=== PATIENT | female | born 1990 | race Caucasian/White ===

== ENCOUNTER 2024-03-15 19:06 | Emergency (ER) | payer OTHER ==
[2024-03-15] MEDS ORDERED: NA CHLORIDE 0.9% 1,000 ML ONE (19:28)
[2024-03-15 19:34] LABS: Absolute Basophils 0.2 K/uL (0-0.5); Absolute Eosinophils 0.1 K/uL (0-0.5); Absolute Lymphocytes (CBC) 2.9 K/uL (0.7-4.9); Absolute Monocytes 0.6 K/uL (0.1-1.3); Absolute Neutrophil 6.1 K/uL (1.8-8.0); Basophils % 1.9 % (0-1.3); Eosinophils % 0.7 % (0-4.4); Hematocrit 39.9 % (36.0-45.0); Hemoglobin 13.6 g/dL (12.0-15.0); Lymphocytes % 29.3 % (15.3-44.8); MCH 28.3 pg (27.0-35.0); MCV 83.1 fL (80-100); Monocytes % 6.4 % (3.3-12.3); Neutrophils % 61.7 % (41.7-73.7); Nucleated Red Blood Cells % 0.1 % (0-0); Platelets 297 thou/uL (152-406); Red Cell Distribution Width 12.8 % (12.1-15.2); Specific Gravity > 1.030 (1.005-1.030)
[2024-03-15 19:39] LABS: Specific Gravity > 1.030 (1.005-1.030); Sqamous Epithelial <5 /HPF (None Seen); Urine Bacteria None Seen /HPF (<20); Urine Bilirubin NEGATIVE (Negative); Urine Blood Negative (Negative); Urine Clarity Clear (Clear); Urine Color Colorless (Yellow); Urine Crystals Unidentified Few /HPF (None Seen); Urine Culture Reflex Order NOT NEEDED; Urine Glucose 4+ (Over) (Negative); Urine Ketones 2+ (Negative); Urine Microscopic Reflex YN ORDER UMIC; Urine Mucus Slight /HPF (None Seen); Urine Nitrite NEGATIVE (Negative); Urine Protein NEGATIVE (Negative); Urine RBC <5 /HPF (None Seen); Urine Urobilinogen Normal (Normal); Urine WBC <5 /HPF (<5); Urine Yeast (Budding) Trace /HPF (None Seen); Urine pH 5.5 (5.0-7.0)
[2024-03-15 19:51] LABS: Albumin/Globulin Ratio 0.8 (1.1-1.8); BETA HYDROXYBUTYRATE 1.22 mmol/L (0.02-0.27); Bilirubin Total 0.4 mg/dL (0.2-1.0); Phosphorus 3.1 mg/dL (2.5-4.9)
[2024-03-15 19:52] LABS: Magnesium 1.8 mg/dL (1.6-2.4)
[2024-03-15] MEDS ORDERED: INSULIN REGULAR (HUMAN) 100 UNIT/ML ONE (20:16)
[2024-03-15] MEDS ORDERED: HUMALOG MIX 75/25 100 UNITS/ML SQ ONE (21:55)
--- NOTE | 2024-03-15 22:13 | ER ---
Nurse's Notes [facility] Name: Aminta Bell Age: 33 yrs Sex: Female : 1990 Arrival Date: 03/15/2024 Time: 19:06 Bed 2 Private MD: Diagnosis: Type 2 diabetes mellitus with hyperglycemia Presentation: 03/15 19:11 Chief complaint: EMS states: Called to patient's home due to patient having high blood cm10 sugar. Pt has been out of insulin for 45 days due to "insurance not wanting to pay". Pt reports increased thirst and increased urination. Pt also reports headache that she describes as pressure. No nausea, vomiting or abdominal pain. Coronavirus screen: Client denies travel out of the [place] in the last 14 days. Ebola Screen: Patient denies travel to an Ebola-affected area in the 21 days before illness onset. No symptoms or risks identified at this time. Initial Sepsis Screen: Does the patient meet any 2 criteria? HR > 90 bpm. Does the patient have a suspected source of infection? No. Patient's initial sepsis screen is negative. Risk Assessment: Do you want to hurt yourself or someone else? Patient reports no desire to harm self or others. Onset of symptoms was March 15, 2024. Care prior to arrival: Medication(s) given: Normal saline infusion, 600mL IV initiated. 20 GA, in the right forearm, Glucose check: 538. 19:11 Method Of Arrival: EMS: [facility] cm10 19:11 Acuity: KARINA 3 cm10 Triage Assessment: 19:16 General: Appears in no apparent distress. comfortable, Behavior is calm, cooperative. cm10 Pain: Complains of pain in head Pain does not radiate. Pain currently is 4 out of 10 on a pain scale. Quality of pain is described as pressure. Neuro: No deficits noted. Level of Consciousness is awake, alert, obeys commands, Oriented to person, place, time, situation, Appropriate for age. Respiratory: No deficits noted. Airway is patent Respiratory effort is even, unlabored, Respiratory pattern is regular, symmetrical. : Reports urinary frequency. Derm: No deficits noted. Skin is healthy with good turgor, Skin is pink, warm \\T\\ dry. Musculoskeletal: No deficits noted. Range of motion: intact in all extremities. VIDEO SPECIALIST: 21:03 Not cm10 Historical: - Allergies: 19:14 Latex, Natural Rubber; cm10 - Home Meds: 19:14 Trazodone Oral [Active]; Lantus Sub-Q [Active]; Humalog Sub-Q [Active]; Ozempic cm10 subcutaneous [Active]; Seroquel Oral [Active]; - PMHx: 19:14 Diabetes mellitus; Hypertensive disorder; Anxiety; cm10 - Immunization history:: Adult Immunizations up to date. - Infectious Disease History:: Denies. - Social history:: Smoking status: unknown. Screenin:31 [facility] ED Fall Risk Assessment (Adult) History of falling in the last 3 months, cm10 including since admission No falls in past 3 months (0 pts) Confusion or Disorientation No (0 pts) Intoxicated or Sedated No (0 pts) Impaired Gait No (0 pts) Mobility Assist Device Used No (0 pt) Altered Elimination No (0 pt) Score/Fall Risk Level 0 - 2 = Low Risk Oriented to surroundings, Maintained a safe environment, Hourly rounding (assess needs \\T\\ fall precautionary measures) done. Abuse screen: Denies threats or abuse. Denies injuries from another. Nutritional screening: No deficits noted. Tuberculosis screening: No symptoms or risk factors identified. Assessment: 20:39 Reassessment: Patient appears in no apparent distress at this time. No changes from cm10 previously documented assessment. Patient and/or family updated on plan of care and expected duration. Pain level reassessed. Patient is alert, oriented x 3, equal unlabored respirations, skin warm/dry/pink. Vital Signs: 19:11 BP 134 / 72; Pulse 96; Resp 19; Temp 98.2(O); Pulse Ox 99% on R/A; Weight 97.52 kg; cm10 Height 4 ft. 10 in. ; Pain 4/10; 19:11 Body Mass Index 44.93 (97.52 kg, 147.32 cm) cm10 19:11 Pain Scale: Adult cm10 ED Course: 19:11 Patient arrived in ED. cm10 19:14 Triage completed. cm10 19:17 Arm band placed on right wrist. Patient placed in an exam room, on a stretcher, on cm10 pulse oximetry. 19:17 Maintain EMS IV. Dressing intact. Good blood return noted. Site clean \\T\\ dry. Gauge \\T\\ cm 10 site: 20g Right forearm. Flushed with 10 mL NS. 19:18 Liudmila Morgan [facility]C [facility]. sb4 19:18 Sky Sandoval MD is Attending Physician. sb4 19:31 Talisha Dooley, DAGMAR is Primary Nurse. cm10 19:31 BHB Sent. cm10 19:31 Magnesium Sent. cm10 19:31 Phosphorus Sent. cm10 19:31 CMP Sent. cm10 19:31 CBC with Diff Sent. cm10 19:31 Test, Urine Sent. cm10 19:31 Urinalysis w/ reflexes Sent. cm10 19:32 Patient has correct armband on for positive identification. Bed in low position. Call cm10 light in reach. Side rails up X 1. Provided Education on: ER process and procedures.. Pulse ox on. NIBP on. 19:53 Notified Nurse Practitioner and/or Physician Wireless Cellular Technician of a critical lab result(s), BGL cm10 671. 22:28 No provider procedures requiring assistance completed. IV discontinued, intact, dd2 bleeding controlled, No redness/swelling at site. Pressure dressing applied. Administered Medications: 19:31 Drug: NS 0.9% IV 1000 ml IV at 1 bolus Per protocol; to be given as a bolus over 60 cm10 minutes Route: IV; Rate: 1 bolus; Site: right forearm; 20:36 Drug: Insulin Regular Human IVP 10 units IVP once {Co-Signature: dd2 (CEDRICK SOSA RN).} Route: IVP; Site: right forearm; 21:02 Follow up: Response: No adverse reaction cm10 22:11 Drug: Insulin Lispro Sub-Q 60 units Sub-Q once {Co-Signature: lg3 (Jayde Macario RN).} vc1 Route: Sub-Q; Site: left upper arm; 22:27 Follow up: Response: Medication administered at discharge. dd2 Medication: 19:33 VIS not applicable for this client. cm10 Point of Care Testing: Blood Glucose: 19:17 Blood Glucose: High (>450 mg/dL); cm10 21:03 Blood Glucose: 462 mg/dL; cm10 Ranges: Outcome: 22:12 Discharge ordered by . sb4 22:28 Discharged to home ambulatory, dd2 22:28 Condition: stable 22:28 Discharge instructions given to patient, Instructed on discharge instructions, follow up and referral plans. Demonstrated understanding of instructions, follow-up care, 22:29 Patient left the ED. dd2 Signatures: Haley Burns RN RN Liudmila Ramon PA-C PA-C sb4 Talisha Dooley RN RN cm10 CEDRICK SOSA RN RN dd2 CEDRICK SOSA RN, dd2 Jayde Macario RN lg3
--- NOTE | 2024-03-15 22:13 | EDPHYS ---
Physician Documentation [facility] Name: Aminta Bell Age: 33 yrs Sex: Female : 1990 Arrival Date: 03/15/2024 Time: 19:06 Bed 2 Private MD: ED Physician Sky Sandoval HPI: 03/16 00:44 This 33 yrs old Female presents to ER via EMS with complaints of High Blood Sugar. sb4 00:44 Patient is a type II diabetic on short and long-acting insulin and metformin. States sb4 that she has not had her insulin in 45 days due to insurance reasons. States that her blood sugar varies, but has generally stayed below 500. States that today she started feeling dizzy and ill so she called EMS. EMS reported a blood sugar of greater than 500. BEHAVIORAL HEALTH TECHNICIAN: 03/15 21:03 Not cm10 Historical: - Allergies: 19:14 Latex, Natural Rubber; cm10 - Home Meds: 19:14 Trazodone Oral [Active]; Lantus Sub-Q [Active]; Humalog Sub-Q [Active]; Ozempic cm10 subcutaneous [Active]; Seroquel Oral [Active]; - PMHx: 19:14 Diabetes mellitus; Hypertensive disorder; Anxiety; cm10 - Immunization history:: Adult Immunizations up to date. - Infectious Disease History:: Denies. - Social history:: Smoking status: unknown. ROS: 03/16 00:44 Constitutional: Negative for fever, chills, and weight loss, sb4 Neuro: Positive for dizziness, headache, Endocrine: Positive for polydipsia, polyphagia, polyuria, All other systems are negative, Exam: 00:44 Constitutional: This is a well developed, well nourished patient who is awake, alert, sb4 and in no acute distress. Head/Face: Normocephalic, atraumatic. Eyes: Extra-ocular motions intact. Periorbital areas with no swelling, redness, or edema. ENT: Mucous membranes moist. Cardiovascular: Regular rate and rhythm with a normal S1 and S2. Respiratory: No increased work of breathing, no retractions or nasal flaring. Abdomen/GI: Soft, non-tender, no distension. Skin: Warm, dry with normal turgor. Normal color with no rashes, no lesions, and no evidence of cellulitis. Vital Signs: 03/15 19:11 BP 134 / 72; Pulse 96; Resp 19; Temp 98.2(O); Pulse Ox 99% on R/A; Weight 97.52 kg; cm10 Height 4 ft. 10 in. ; Pain 4/10; 19:11 Body Mass Index 44.93 (97.52 kg, 147.32 cm) cm10 19:11 Pain Scale: Adult cm10 MDM: 19:18 Medical Screening Exam initiated sb4 03/16 00:44 Data reviewed: vital signs, nurses notes, EMS record, lab test result(s), and as a sb4 result, I will discharge patient. Care significantly affected by the following Social Determinants of Health: Poor access to healthcare and/or lack of insurance. Counseling: I had a detailed discussion with the patient and/or guardian regarding the historical points, exam findings, and any diagnostic results supporting the discharge/admit diagnosis, lab results, the need for outpatient follow up, for definitive care, to return to the emergency department if symptoms worsen or persist or if there are any questions or concerns that arise at home. 03/15 19:18 Order name: Urinalysis w/ reflexes; Complete Time: 19:39 cm10 03/15 19:18 Order name: Test, Urine; Complete Time: 19:35 cm10 03/15 19:18 Order name: CBC with Diff; Complete Time: 19:36 cm10 03/15 19:18 Order name: CMP; Complete Time: 19:54 cm10 03/15 19:19 Order name: Phosphorus; Complete Time: 19:54 sb4 03/15 19:19 Order name: Magnesium; Complete Time: 19:54 sb4 03/15 19:19 Order name: BHB; Complete Time: 19:54 sb4 03/15 19:21 Order name: Glucose, Ancillary Testing; Complete Time: 19:28 EDMS 03/15 21:14 Order name: Glucose, Ancillary Testing; Complete Time: 21:19 EDMS 03/15 19:18 Order name: IV Saline Lock; Complete Time: 19:31 cm10 03/15 19:18 Order name: Labs collected and sent; Complete Time: 19:31 cm10 03/15 19:19 Order name: Accucheck; Complete Time: 19:31 sb4 03/15 20:59 Order name: Accucheck; Complete Time: 21:02 sb4 Administered Medications: 03/15 19:31 Drug: NS 0.9% IV 1000 ml IV at 1 bolus Per protocol; to be given as a bolus over 60 cm10 minutes Route: IV; Rate: 1 bolus; Site: right forearm; 20:36 Drug: Insulin Regular Human IVP 10 units IVP once {Co-Signature: dd2 (CEDRICK SOSA RN).} Route: IVP; Site: right forearm; 21:02 Follow up: Response: No adverse reaction cm10 22:11 Drug: Insulin Lispro Sub-Q 60 units Sub-Q once {Co-Signature: lg3 (Jayde Macario RN).} vc1 Route: Sub-Q; Site: left upper arm; 22:27 Follow up: Response: Medication administered at discharge. dd2 Point of Care Testing: Blood Glucose: 19:17 Blood Glucose: High (>450 mg/dL); cm10 21:03 Blood Glucose: 462 mg/dL; cm10 Ranges: Critical Glucose Levels:Adult <50 mg/dl or >400 mg/dl <40 mg/dl or >180 mg/dl Disposition Summary: 03/15/24 22:12 Discharge Ordered Notes: Location: Home sb4 Problem: new sb4 Symptoms: have improved sb4 Condition: Stable sb4 Diagnosis - Type 2 diabetes mellitus with hyperglycemia sb4 Followup: sb4 - With: Private Physician - When: As needed - Reason: Recheck today's complaints, Re-evaluation by your physician Discharge Instructions: - Discharge Summary Sheet sb4 - Hyperglycemia sb4 - Type 2 Diabetes Mellitus, Self-Care, Adult sb4 Forms: - Patient Portal Instructions sb4 - Leadership Thank You Letter sb4 Addendum: 03/20/2024 15:32 Co-signature as Attending Physician, Sky Sandoval MD I agree with the assessment and c fontenot plan of care. Signatures: Dispatcher [employer] Sky Adams MD MD cha Calcote, Vanessa RN RN vc1 Liudmila Morgan, PA-C PA-C sb4 Talisha Dooley RN RN cm10 CEDRICK SOSA RN dd2 CEDRICK SOSA RN dd2 Jayde Macario RN lg3 Corrections: (The following items were deleted from the chart) 03/15 19:19 19:19 PHOSPHORUS+C.LAB.BRZ ordered. EDMS EDMS 19:19 19:19 MAGNESIUM+C.LAB.BRZ ordered. EDMS EDMS 19:19 19:19 BETA HYDROXYBUTYRATE+C.LAB.BRZ ordered. EDMS EDMS
[2024-03-16 06:06] VITALS: BP 134/72; TEMP 98.2; O2SAT 99
== END 2024-03-15 22:29 | disposition home or self-care (01) ==
LOC: ER 19:06
DX: E11.65 Type 2 diabetes mellitus with hyperglycemia (principal); I10 Essential (primary) hypertension; F41.9 Anxiety disorder, unspecified; Z79.4 Long term (current) use of insulin; Z79.85 Long-term (current) use of injectable non-insulin antidiabetic drugs; Z91.040 Latex allergy status
CPT/HCPCS: 85025; 81001; 36415; 83735; 81025; 84100; 82947 ×2; 80053; 82010; 96372; 96374; 99284; J1815; J7030

== ENCOUNTER 2024-06-06 16:28 | Emergency (ER) | payer OTHER ==
--- OUTSIDE RECORDS SUMMARY | 2024-06-06 16:43 | XMS REPORT | Continuity of Care Document ---
Author Name Unknown Address [address] [facility] [address] [place] [address] [facility] [place] Address [address] [facility] [address] [place] [address] Care Team Providers Care Physical Therapy Coordinator Name Role Phone PCP, PATIENT DOES NOT HAVE A Primary Care Physic Babar Estevez Attending Clinician Unavailable DAMIÁN CHUNG Attending Clinician Unavailable JAMIR CAGE Attending Clinician Unavail able HELEN TRUONG Attending Clinician Unavailable Jamir Juarez Attending Clinician + IVONE PEREZ Attending Clinician Ivone Renner CNM Attending Clinician Helen Royal Attending Clinician [phone] Wilmer Sofia Demarco Attending Clinician Unavail able Kandy, [facility] Main Attending Clinician Trini Rasmussen MD Attending Clinician + [phone] TRINI CRENSHAW Attending Clinician TRINI Hill Attending Clinician dEwin JORGE VINCENT Attending Clinician Unavailable Lab, Ang - Db Attending Clinician Unavailable LATONYA BRONSON Attending Clinician Unavail able LATONYA BRONSON Attending Clinician Unavail able GC_LEH_Le_D Attending Clinician Unavailable Napoleon Nazario Attending Clinician Unavailable Jak Herrera Attending Clinician Unavailable Gibran Garnica Attending Clinician Unavailable UNKNOWN Attending Clinician Unavailable DR DEMETRI DIA Attending Clinician Unavailab Gavino Schmitt Attending Clinician Unavailable Renita Ballard Attending Clinician Unavailable JOYCE BORGES Attending Clinician Unavailable Andrea Marcos Attending Clinician Unavailable CHIQUIS, SANDRINE ARAIZA Attending Clinician Unavailable Adriana Mckeon Attending Clinician Unavailable ALIE, DR ROJO Attending Clinician Unavailab THALIA Webster Attending Clinician Unavailable Lani Pitt Attending Clinician [phone] Luiz Rogers Attending Clinician [phone] Jonny Mejia Attending Clinician Unavailable Dennys Roger Attending Clinician [phone] VINCENT JORGE Admitting Clinician Unavailable LATONYA BRONSON Admitting Clinician Unavail able GC_LEH_Le_D Admitting Clinician Unavailable Tad Jordan Admitting Clinician Unavailable Jak Herrera Admitting Clinician Unavailable Gibran Garnica Admitting Clinician Unavailable DR DEMETRI DIA Admitting Clinician Unavailab Gavino Schmitt Admitting Clinician Unavailable JOYCE BORGES Admitting Clinician Unavailable SANDRINE SIM Admitting Clinician Unavailable DR ALIA STRANGE Admitting Clinician Unavailab THALIA Webster Admitting Clinician Unavailable Physician, No Primary or Family Admitting Clinic [place] Unavailable Payers Payer Name Policy Type Policy Number Effective Date Expirati on Date Source $00 D [id number] 2022 00:00:00 MEDICARE PART A \\T\\ B [id number] 2012 00:00:00 [place] [id number] 2012 00:00:00 [facility] [id number] 00:00:00 MEDICAID GENERIC [id number] 2020 00:00:00 [facility] [id number] 2024 00:00:00 [facility] [id number] 1959 00:00:00 [facility] (MEDICAID HMO) [id number] 2021 00:00:00 Problems Condition Name Condition Details Condition Category Status Onset Date Resolution Date Last Treatment Date Treating Clinician Comments Source Essential hypertensi on Essential hypertensi on Disease Active 8-16 00:00: 00 [facility] Bipolar disorder Bipolar Disorder Problem Active 6-29 00:00: 00 [facility] Irritable bowel syndrome Irritable Bowel Syndrome Problem Active 4-04 00:00: 00 [facility] Obesity Obesity Problem Active 1-06 00:00: 00 [facility] Hypertensi ve disorder Hypertensi ve Disorder Problem Active 1- 00:00: 00 [facility] Hypersomni a with sleep apnea Hypersomni a with Sleep Apnea Problem Active 1- 00:00: 00 [facility] Sleep apnea Sleep Apnea Problem Active 1 00:00: 00 [facility] History of syncope History of Syncope Problem Active 1- 00:00: 00 [facility] Hyperglyce kody Hyperglyce kody Disease Active 7 00:00: 00 [facility] Backache Backache Disease Active 7 00:00: 00 [facility] Type 2 diabetes mellitus without complicati on Type 2 diabetes mellitus without complicati on Disease Active 08-07 00:00: 00 [facility] History of fibrocysti c disease of breast History of fibrocysti c disease of breast Disease Active 08-07 00:00: 00 [facility] Family history of ovarian cancer Family history of ovarian cancer Disease Active 08-07 00:00: 00 [facility] Acquired hypothyroi dism Acquired hypothyroi dism Disease Active 08-07 00:00: 00 [facility] [id number] retirement (current) use of insulin Problem [facility] [id number] Type 2 diabetes mellitus with hyperglyce kody Problem [facility] [id number] Obesity, Class III, BMI 40-49.9 (morbid obesity) Problem [facility] Vaginal spotting Vaginal spotting Disease Resolve d 07-20 00:00: 00 2023-08-15 00:00:00 2023-08-15 14:37:41 [facility] Bleeding after intercours e Bleeding after intercours e Disease Resolve d 07-20 00:00: 00 2023-08-15 00:00:00 2023-08-15 14:37:40 [facility] Trichomona l vulvovagin itis Trichomona l vulvovagin itis Disease Resolve d 2015-03 2 00:00: 00 2023-08-15 00:00:00 2023-08-15 14:37:42 [facility] Chlamydia trachomati s infection of lower genitourin lizandro sites Chlamydia trachomati s infection of lower genitourin lizandro sites Disease Resolve d 08-11 00:00: 00 2023-08-15 00:00:00 2023-08-15 14:37:59 [facility] BV (bacterial vaginosis) BV (bacterial vaginosis) Disease Resolve d 08-11 00:00: 00 2023-08-15 00:00:00 2023-08-15 14:37:43 [facility] Oral contracept vanessa use Oral contracept vanessa use Disease Resolve d 08-07 00:00: 00 2023-08-15 00:00:00 2023-08-15 14:37:50 [facility] Vaginal discharge Vaginal discharge Disease Resolve d 08-07 00:00: 00 2023-08-15 00:00:00 2023-08-15 14:37:45 [facility] Soreness breast Soreness breast Disease Resolve d 08-07 00:00: 00 2023-08-15 00:00:00 2023-08-15 14:37:44 [facility] Obesity Obesity Disease Resolve d 08-07 00:00: 00 2023-08-15 00:00:00 2023-08-15 14:37:55 [facility] DKA, type 1, not at goal DKA, type 1, not at goal Disease Resolve d 10-17 00:00: 00 2020-10-18 00:00:00 2020-10-18 20:56:53 [facility] DKA, type 1, not at goal DKA, type 1, not at goal Disease Resolve d 10-17 00:00: 00 2020-10-18 00:00:00 2020-10-18 20:56:53 [facility] Allergies, Adverse Reactions, Alerts Allergy Name Allergy Type Status Severity Reaction(s) Onset Date Inactive Date Treating Clinician Comments Source latex DA Active U SWELLING 11-15 00:00: 00 [facility] latex DA Active U UNKNOWN 04-10 00:00: 00 [facility] No Known Allergie s DA Active U 03-18 00:00: 00 [facility] LATEX DRUG INGREDI Active Swelling 08-07 00:00: 00 [facility] Latex Propensi ty to adverse reaction s Active Swelling 08-07 00:00: 00 Blisters [facility] latex DA Active Unknown [facility] (LUF[facility] V/SA) No Known Allergie s DA Active [facility] (LUF/LI V/SA) Latex Allergy to substanc e Active [facility] Social History Social Habit Start Date Stop Date Quantity Comments [facility] of [facility] Alcoholic beverage intake 2024-04-24 00:00:00 2024-04-24 00:00:00 Ex-drinker (finding) [facility] History of Social function 2024-04-24 00:00:00 2024-04-24 00:00:00 [facility] Tobacco use and exposure 2023-08-17 00:00:00 2023-08-17 00:00:00 Smokeless tobacco non-user [facility] Smoking Status Start Date Stop Date Source Never smoked tobacco [facility] Medications Ordered Medication Name Filled Medication Name Start Date Stop Date Current Medication? Ordering Clinician Indication Dosage Frequency Signature (SIG) Comments Components Source norethindro ne 0.35 mg tablet 05-09 00:00: 00 Yes [id number] 1{tbl} Take 1 tablet by mouth in the morning. [facility] terconazole 80 mg vaginal suppository 04-25 00:00: 00 04-29 05:59 :00 Yes [id number] 80mg Insert 1 Suppositor y into vagina at bedtime for 3 days. [facility] Insulin Glargine (LANTUS SOLOSTAR U-100 INSULIN) 100 unit/mL (3 mL) injection 03-22 00:00: 00 Yes [id number] 32U inject 32 Units under the skin at bedtime. For Lantus: take HALF dose if or if blood glucose 80 - 120 mg/dL, HOLD if less than 80. [facility] insulin lispro (HUMALOG KWIKPEN INSULIN) 100 unit/mL pen injector 03-22 00:00: 00 Yes [id number] Take 8 units with each meal (patient eats 4 meals a day) [facility] semaglutide (OZEMPIC) 1 mg/dose (4 mg/3 mL) Ij 2023-03 11:09: 04 02-02 00:00 :00 No INJECT 1 MG Subcutaneo us weekly for 28 days [facility] dexAMETHaso ne 1 mg tablet 2023-03 00:00: 00 Yes [id number] Take 1 tab at 11 Pm and come in for blood tests at 8 am next morning [facility] semaglutide (OZEMPIC) 2 mg/dose (8 mg/3 mL) Ij 2023-03 00:00: 00 Yes [id number] 2mg inject 2 mg under the skin weekly. [facility] metFORMIN 500 mg tablet 2023-03 00:00: 00 Yes [id number] 500mg Take 1 tablet by mouth in the morning and 1 tablet in the evening. Take with meals. [facility] amLODIPine 10 mg tablet 2023-03 00:00: 00 Yes [id number] 10mg Take 1 tablet by mouth in the morning. [facility] losartan 50 mg tablet 2023-03 00:00: 00 Yes [id number] 50mg Take 1 tablet by mouth in the morning. [facility] Insulin Glargine (LANTUS SOLOSTAR U-100 INSULIN) 100 unit/mL (3 mL) injection 2023-03 00:00: 00 03-22 00:00 :00 No [id number] 15U inject 15 Units under the skin at bedtime. For Lantus: take HALF dose if or if blood glucose 80 - 120 mg/dL, HOLD if less than 80. [facility] insulin lispro (HUMALOG KWIKPEN INSULIN) 100 unit/mL pen injector 2023-03 00:00: 00 03-22 00:00 :00 No [id number] 9U inject 9 Units under the skin in the morning and 9 Units at noon and 9 Units in the evening. inject before meals. Give half dose if patient eats less than half meal OR if blood glucose 80 - 120 mg/dL, HOLD DOSE if or BG < 80 [facility] ampicillin 500 mg capsule 2023-03 00:00: 00 02-02 00:00 :00 No [id number] 500mg Take 1 capsule by mouth every 6 (six) hours. [facility] fluconazole (DIFLUCAN) 150 mg tablet 2023-03 00:00: 00 02-02 00:00 :00 No [id number] 150mg Take 1 tablet by mouth in the morning. [facility] insulin lispro (HUMALOG KWIKPEN INSULIN) 100 unit/mL pen injector 2023-03 00:00: 00 02-02 00:00 :00 No [id number] 9U inject 9 Units under the skin in the morning and 9 Units at noon and 9 Units in the evening. inject before meals. Give half dose if patient eats less than half meal OR if blood glucose 80 - 120 mg/dL, HOLD DOSE if or BG < 80 [facility] traZODone 100 mg tablet 2023-03 0- 00:00: 00 Yes TAKE 1 TABLET BY MOUTH ONCE DAILY AT BEDTIME NEEDED [facility] semaglutide (OZEMPIC) 2 mg/dose (8 mg/3 mL) Pn 12-08 00:00: 00 02-02 00:00 :00 No 2mg inject 2 mg under the skin weekly. [facility] Insulin Glargine (LANTUS SOLOSTAR U-100 INSULIN) 100 unit/mL (3 mL) injection 8-17 00:00: 00 02-02 00:00 :00 No [id number] 15U inject 15 Units under the skin at bedtime. For Lantus: take HALF dose if or if blood glucose 80 - 120 mg/dL, HOLD if less than 80. [facility] Blood-Gluco se Sensor (FREESTYLE CURT 3 SENSOR) Jenna 10-27 00:00: 00 Yes [id number] Use as directed every 2 weeks [facility] Blood-Gluco se Meter,Chelsey nuous (FREESTYLE CURT 3 READER) Mis 10-27 00:00: 00 Yes [id number] Use as directed [facility] insulin lispro (HUMALOG KWIKPEN INSULIN) 200 unit/mL (3 mL) InPn 16 00:00: 00 01-16 00:00 :00 No [id number] 9U inject 9 Units under the skin in the morning and 9 Units at noon and 9 Units in the evening. inject before meals. Give half dose if patient eats less than half meal OR if blood glucose 80 - 120 mg/dL, HOLD DOSE if or BG < 80 . [facility] semaglutide (OZEMPIC) 1 mg/dose (4 mg/3 mL) [facility] 8-16 00:00: 00 12-08 00:00 :00 No [id number] 1mg inject 1 mg under the skin weekly. [facility] Insulin Glargine (LANTUS SOLOSTAR U-100 INSULIN) 100 unit/mL (3 mL) injection 10-27 00:00: 00 10-28 00:00 :00 No [id number] 15U inject 15 Units under the skin in the morning. For Lantus: take HALF dose if or if blood glucose 80 - 120 mg/dL, HOLD if less than 80. [facility] HUMALOG KWIKPEN INSULIN 200 unit/mL (3 mL) InPn 10-23 00:00: 00 10-27 00:00 :00 No INJECT 60 UNITS SUBCUTANEO USLY THREE TIMES DAILY WITH A MEAL [facility] OZEMPIC 1 mg/dose (4 mg/3 mL) PnIj 10-20 00:00: 00 10-27 00:00 :00 No INJECT 1 MG SUBCUTANEO USLY ONCE A WEEK [facility] SERTraline 100 mg tablet 10-17 00:00: 00 Yes 100mg Take 1 tablet by mouth every morning. [facility] ARIPiprazol e 5 mg tablet 10-17 00:00: 00 Yes 5mg Take 1 tablet by mouth at bedtime. [facility] amLODIPine 10 mg tablet 10-04 00:00: 00 02-02 00:00 :00 No 10mg Take 1 tablet by mouth in the morning. [facility] losartan 50 mg tablet 10-04 00:00: 00 02-02 00:00 :00 No 50mg Take 1 tablet by mouth in the morning. [facility] metFORMIN HCl 1000 MG metFORMIN HCl 1000 MG 10-03 00:00: 00 No 1{table t_with_ a_meal} BID metFORMIN HCl 1000 MG metFORMIN 500 mg tablet 09-04 00:00: 00 02-02 00:00 :00 No [id number] 500mg Take 1 tablet by mouth in the morning and 1 tablet in the evening. Take with meals. [facility] fluconazole 150 mg tablet 09-04 00:00: 00 02-02 00:00 :00 No [id number] Take one tablet PO today, then repeat in 72 hours [facility] quetiapine fumarate (SEROQUEL ORAL) 08-14 13:55: 26 Yes Take by mouth. [facility] losartan 25 mg tablet 06-02 00:00: 00 10-27 00:00 :00 No [facility] lidocaine 0.05 MG/MG Medicated Patch lidocaine 0.05 MG/MG Medicated Patch 10-02 23:48: 10 No 1 topically per package directions as needed. (leave on most painful area for up to 12 hrs) [facility] (LUF/LI V/SA) metronidazo le 0.013 MG/MG Vaginal Gel metronidazo le 0.013 MG/MG Vaginal Gel 07-20 21:12: 57 No 1 vaginally once (as a single dose at bedtime) [facility] insulin, regular, human 500 UNT/ML Injectable Solution insulin, regular, human 500 UNT/ML Injectable Solution 06-21 20:41: 02 No .8 1xD via continuous subcutaneo us infusion daily [facility] (LUF/LI V/SA) ondansetron 4 mg disintegrat ing tablet ondansetron 4 mg disintegrat ing tablet 06-14 16:37: 48 No Nausea and vomiting 4mg 3xD orally every 8 hours for Nausea and Nausea and vomiting as needed. (Nausea/Vo miting) [facility] (LUF/LI V/SA) cephalexin 500 mg capsule cephalexin 500 mg capsule 03-27 15:40: 31 No 500mg 3xD orally 3 times per day [facility] (LUF/LI V/SA) clotrimazol e 20 MG/ML Vaginal Cream clotrimazol e 20 MG/ML Vaginal Cream 03-27 15:40: 30 No 1 vaginally every day at bedtime (for 3 days) [facility] (LUF/LI V/SA) betamethaso ne 0.5 MG/ML / clotrimazol e 10 MG/ML Topical Cream betamethaso ne 0.5 MG/ML / clotrimazol e 10 MG/ML Topical Cream 03-27 15:40: 29 No 1 2xD topically 2 times per day (for 2 weeks, apply to vulva and perineum) [facility] (LUF/LI V/SA) fluconazole 200 MG Oral Tablet fluconazole 200 MG Oral Tablet 03-27 15:40: 28 No 200mg 1xD orally daily [facility] (LUF/LI V/SA) hydroxyzine hydrochlori de 25 MG Oral Tablet hydroxyzine hydrochlori de 25 MG Oral Tablet 03-27 15:40: 27 No itching 25mg Q7.00H orally 3 to 4 times per day for itching as needed. (as needed for itching) [facility] (LUF/LI V/SA) tramadol hydrochlori de 50 MG Oral Tablet tramadol hydrochlori de 50 MG Oral Tablet 03-27 15:40: 25 No pain 50mg 4xD orally every 6 hours for Pain and pain as needed. (as needed for pain) [facility] (LUF/LI V/SA) ketoconazol e 20 MG/ML Topical Cream ketoconazol e 20 MG/ML Topical Cream 03-15 14:39: 26 No 1 2xD topically 2 times per day (apply bid x 14 days) [facility] (LUF/LI V/SA) sulfamethox azole 800 MG / trimethopri m 160 MG Oral Tablet sulfamethox azole 800 MG / trimethopri m 160 MG Oral Tablet 03-15 14:37: 51 No 1 2xD orally every [address] [facility] (LUF/LI V/SA) armodafinil 150 mg tablet TAKE 1 TABLET BY MOUTH ONCE DAILY FOR 30 DAYS armodafinil 150 mg tablet TAKE 1 TABLET BY MOUTH ONCE DAILY FOR 30 DAYS No armodafini l 150 mg tablet TAKE 1 TABLET BY MOUTH ONCE DAILY FOR 30 DAYS [facility] azithromyci n 500 mg tablet TAKE 1 TABLET BY MOUTH ONCE DAILY azithromyci n 500 mg tablet TAKE 1 TABLET BY MOUTH ONCE DAILY No azithromyc in 500 mg tablet TAKE 1 TABLET BY MOUTH ONCE DAILY [facility] benzonatate 100 mg capsule TAKE 1 CAPSULE BY MOUTH EVERY 4 HOURS NEEDED benzonatate 100 mg capsule TAKE 1 CAPSULE BY MOUTH EVERY 4 HOURS NEEDED No benzonatat e 100 mg capsule TAKE 1 CAPSULE BY MOUTH EVERY 4 HOURS NEEDED [facility] Bydureon BCise 2 mg/0.85 mL subcutaneou s auto-inject or Inject 2 mg every week by subcutaneou s route. Bydureon BCise 2 mg/0.85 mL subcutaneou s auto-inject or Inject 2 mg every week by subcutaneou s route. No 2mg Q1W Bydureon BCise 2 mg/0.85 mL subcutaneo us auto-injec tor Inject 2 mg every week by subcutaneo us route. [facility] glimepiride 4 mg tablet Take 1 tablet every day by oral route. glimepiride 4 mg tablet Take 1 tablet every day by oral route. No 1 Q1D glimepirid e 4 mg tablet Take 1 tablet every day by oral route. [facility] Humulin R Regular U-100 Insuln Humulin R Regular U-100 Insuln No Humulin R Regular U-100 Insuln [facility] Latuda 60 mg tablet Take 1 tablet every day by oral route. Latuda 60 mg tablet Take 1 tablet every day by oral route. No 1 Q1D Latuda 60 mg tablet Take 1 tablet every day by oral route. [facility] lithium carbonate ER 450 mg tablet,exte nded release Take 1 tablet every day by oral route. lithium carbonate ER 450 mg tablet,exte nded release Take 1 tablet every day by oral route. No 1 Q1D lithium carbonate ER 450 mg tablet,ext ended release Take 1 tablet every day by oral route. [facility] metformin 500 mg tablet Take 2 tablets twice a day by oral route. metformin 500 mg tablet Take 2 tablets twice a day by oral route. No 2 BID metformin 500 mg tablet Take 2 tablets twice a day by oral route. [facility] trazodone 300 mg tablet Take 1 tablet every day by oral route at bedtime. trazodone 300 mg tablet Take 1 tablet every day by oral route at bedtime. No 1 Q1D trazodone 300 mg tablet Take 1 tablet every day by oral route at bedtime. [facility] armodafinil 150 mg tablet TAKE 1 TABLET BY MOUTH ONCE DAILY FOR 30 DAYS armodafinil 150 mg tablet TAKE 1 TABLET BY MOUTH ONCE DAILY FOR 30 DAYS No armodafini l 150 mg tablet TAKE 1 TABLET BY MOUTH ONCE DAILY FOR 30 DAYS [facility] azithromyci n 500 mg tablet TAKE 1 TABLET BY MOUTH ONCE DAILY azithromyci n 500 mg tablet TAKE 1 TABLET BY MOUTH ONCE DAILY No azithromyc in 500 mg tablet TAKE 1 TABLET BY MOUTH ONCE DAILY [facility] benzonatate 100 mg capsule TAKE 1 CAPSULE BY MOUTH EVERY 4 HOURS NEEDED benzonatate 100 mg capsule TAKE 1 CAPSULE BY MOUTH EVERY 4 HOURS NEEDED No benzonatat e 100 mg capsule TAKE 1 CAPSULE BY MOUTH EVERY 4 HOURS NEEDED [facility] Bydureon BCise 2 mg/0.85 mL subcutaneou s auto-inject or Inject 2 mg every week by subcutaneou s route. Bydureon BCise 2 mg/0.85 mL subcutaneou s auto-inject or Inject 2 mg every week by subcutaneou s route. No 2mg Q1W Bydureon BCise 2 mg/0.85 mL subcutaneo us auto-injec tor Inject 2 mg every week by subcutaneo us route. [facility] ceftriaxone 1 gram solution for injection Take 1 g by injection route. ceftriaxone 1 gram solution for injection Take 1 g by injection route. No 1g ceftriaxon e 1 gram solution for injection Take 1 g by injection route. [facility] Diflucan 150 mg tablet Take 1 tablet every day by oral route for 7 days. Diflucan 150 mg tablet Take 1 tablet every day by oral route for 7 days. No 1 Q1D Diflucan 150 mg tablet Take 1 tablet every day by oral route for 7 days. [facility] glimepiride 4 mg tablet Take 1 tablet every day by oral route. glimepiride 4 mg tablet Take 1 tablet every day by oral route. No 1 Q1D glimepirid e 4 mg tablet Take 1 tablet every day by oral route. [facility] Humulin R Regular U-100 Insuln Humulin R Regular U-100 Insuln No Humulin R Regular U-100 Insuln [facility] Latuda 60 mg tablet Take 1 tablet every day by oral route. Latuda 60 mg tablet Take 1 tablet every day by oral route. No 1 Q1D Latuda 60 mg tablet Take 1 tablet every day by oral route. [facility] lithium carbonate ER 450 mg tablet,exte nded release Take 1 tablet every day by oral route. lithium carbonate ER 450 mg tablet,exte nded release Take 1 tablet every day by oral route. No 1 Q1D lithium carbonate ER 450 mg tablet,ext ended release Take 1 tablet every day by oral route. [facility] metformin 500 mg tablet Take 2 tablets twice a day by oral route. metformin 500 mg tablet Take 2 tablets twice a day by oral route. No 2 BID metformin 500 mg tablet Take 2 tablets twice a day by oral route. [facility] trazodone 300 mg tablet TAKE 1 TABLET BY MOUTH ONCE DAILY AT BEDTIME trazodone 300 mg tablet TAKE 1 TABLET BY MOUTH ONCE DAILY AT BEDTIME No trazodone 300 mg tablet TAKE 1 TABLET BY MOUTH ONCE DAILY AT BEDTIME [facility] armodafinil 150 mg tablet Take 1 tablet every day by oral route for 30 days. armodafinil 150 mg tablet Take 1 tablet every day by oral route for 30 days. No 1 Q1D armodafini l 150 mg tablet Take 1 tablet every day by oral route for 30 days. [facility] azithromyci n 500 mg tablet TAKE 1 TABLET BY MOUTH ONCE DAILY azithromyci n 500 mg tablet TAKE 1 TABLET BY MOUTH ONCE DAILY No azithromyc in 500 mg tablet TAKE 1 TABLET BY MOUTH ONCE DAILY [facility] benzonatate 100 mg capsule TAKE 1 CAPSULE BY MOUTH EVERY 4 HOURS NEEDED benzonatate 100 mg capsule TAKE 1 CAPSULE BY MOUTH EVERY 4 HOURS NEEDED No benzonatat e 100 mg capsule TAKE 1 CAPSULE BY MOUTH EVERY 4 HOURS NEEDED [facility] Bydureon BCise 2 mg/0.85 mL subcutaneou s auto-inject or Inject 2 mg every week by subcutaneou s route. Bydureon BCise 2 mg/0.85 mL subcutaneou s auto-inject or Inject 2 mg every week by subcutaneou s route. No 2mg Q1W Bydureon BCise 2 mg/0.85 mL subcutaneo us auto-injec tor Inject 2 mg every week by subcutaneo us route. [facility] ceftriaxone 1 gram solution for injection Take 1 g by injection route. ceftriaxone 1 gram solution for injection Take 1 g by injection route. No 1g ceftriaxon e 1 gram solution for injection Take 1 g by injection route. [facility] glimepiride 4 mg tablet Take 1 tablet every day by oral route. glimepiride 4 mg tablet Take 1 tablet every day by oral route. No 1 Q1D glimepirid e 4 mg tablet Take 1 tablet every day by oral route. [facility] Humulin R Regular U-100 Insuln Humulin R Regular U-100 Insuln No Humulin R Regular U-[address] [facility] hyoscyamine 0.[address] 1 tablet 4 times a day by sublingual route. hyoscyamine 0.[address] 1 tablet 4 times a day by sublingual route. No 1 QID hyoscyamin e 0.[address] 1 tablet 4 times a day by sublingual route. [facility] Latuda 60 mg tablet Take 1 tablet every day by oral route. Latuda 60 mg tablet Take 1 tablet every day by oral route. No 1 Q1D Latuda 60 mg tablet Take 1 tablet every day by oral route. [facility] lithium carbonate ER 450 mg tablet,exte nded release Take 1 tablet every day by oral route. lithium carbonate ER 450 mg tablet,exte nded release Take 1 tablet every day by oral route. No 1 Q1D lithium carbonate ER 450 mg tablet,ext ended release Take 1 tablet every day by oral route. [facility] metformin 500 mg tablet Take 2 tablets twice a day by oral route. metformin 500 mg tablet Take 2 tablets twice a day by oral route. No 2 BID metformin 500 mg tablet Take 2 tablets twice a day by oral route. [facility] terconazole 0.4 % vaginal cream INSERT 1 APPLICATORF UL VAGINALLY ONCE DAILY FOR 7 DAYS terconazole 0.4 % vaginal cream INSERT 1 APPLICATORF UL VAGINALLY ONCE DAILY FOR 7 DAYS No terconazol e 0.4 % vaginal cream INSERT 1 APPLICATOR FUL VAGINALLY ONCE DAILY FOR 7 DAYS [facility] trazodone 300 mg tablet TAKE 1 TABLET BY MOUTH ONCE DAILY AT BEDTIME trazodone 300 mg tablet TAKE 1 TABLET BY MOUTH ONCE DAILY AT BEDTIME No trazodone 300 mg tablet TAKE 1 TABLET BY MOUTH ONCE DAILY AT BEDTIME [facility] armodafinil 150 mg tablet TAKE 1 TABLET BY MOUTH ONCE DAILY FOR 30 DAYS armodafinil 150 mg tablet TAKE 1 TABLET BY MOUTH ONCE DAILY FOR 30 DAYS No armodafini l 150 mg tablet TAKE 1 TABLET BY MOUTH ONCE DAILY FOR 30 DAYS [facility] azithromyci n 500 mg tablet TAKE 1 TABLET BY MOUTH ONCE DAILY azithromyci n 500 mg tablet TAKE 1 TABLET BY MOUTH ONCE DAILY No azithromyc in 500 mg tablet TAKE 1 TABLET BY MOUTH ONCE DAILY [facility] benzonatate 100 mg capsule TAKE 1 CAPSULE BY MOUTH EVERY 4 HOURS NEEDED benzonatate 100 mg capsule TAKE 1 CAPSULE BY MOUTH EVERY 4 HOURS NEEDED No benzonatat e 100 mg capsule TAKE 1 CAPSULE BY MOUTH EVERY [address] [facility] Bydureon BCise 2 mg/0.85 mL subcutaneou s auto-inject or Inject 2 mg every week by subcutaneou s route. Bydureon BCise 2 mg/0.85 mL subcutaneou s auto-inject or Inject 2 mg every week by subcutaneou s route. No 2mg Q1W Bydureon BCise 2 mg/0.85 mL subcutaneo us auto-injec tor Inject 2 mg every week by subcutaneo us route. [facility] ceftriaxone 1 gram solution for injection Take 1 g by injection route. ceftriaxone 1 gram solution for injection Take 1 g by injection route. No 1g ceftriaxon e 1 gram solution for injection Take 1 g by injection route. [facility] glimepiride 4 mg tablet Take 1 tablet every day by oral route. glimepiride 4 mg tablet Take 1 tablet every day by oral route. No 1 Q1D glimepirid e 4 mg tablet Take 1 tablet every day by oral route. [facility] Humulin R Regular U-100 Insuln Humulin R Regular U-100 Insuln No Humulin R Regular U-100 Insuln [facility] hyoscyamine 0.125 mg sublingual tablet DISSOLVE 1 TABLET IN MOUTH 4 TIMES DAILY hyoscyamine 0.125 mg sublingual tablet DISSOLVE 1 TABLET IN MOUTH 4 TIMES DAILY No hyoscyamin e 0.125 mg sublingual tablet DISSOLVE 1 TABLET IN MOUTH 4 TIMES DAILY [facility] Latuda 60 mg tablet Take 1 tablet every day by oral route. Latuda 60 mg tablet Take 1 tablet every day by oral route. No 1 Q1D Latuda 60 mg tablet Take 1 tablet every day by oral route. [facility] lithium carbonate ER 450 mg tablet,exte nded release Take 1 tablet every day by oral route. lithium carbonate ER 450 mg tablet,exte nded release Take 1 tablet every day by oral route. No 1 Q1D lithium carbonate ER 450 mg tablet,ext ended release Take 1 tablet every day by oral route. [facility] betamethaso ne 0.5 MG/ML / clotrimazol e 10 MG/ML Topical Cream betamethaso ne 0.5 MG/ML / clotrimazol e 10 MG/ML Topical Cream Yes [address] [facility] (LUF/[facility] V/[facility] metformin 500 mg tablet Take 2 tablets twice a day by oral route. metformin 500 mg tablet Take 2 tablets twice a day by oral route. No 2 BID metformin 500 mg tablet Take 2 tablets twice a day by oral route. [facility] cephalexin 500 mg capsule cephalexin 500 mg capsule Yes 500mg 3xD [facility] (LUF/LI V/SA) metronidazo le 500 mg tablet Take 1 tablet by oral route as directed. metronidazo le 500 mg tablet Take 1 tablet by oral route as directed. No 1 metronidaz ole 500 mg tablet Take 1 tablet by oral route as directed. [facility] clotrimazol e 20 MG/ML Vaginal Cream clotrimazol e 20 MG/ML Vaginal Cream Yes [address] [facility] (LUF/LI V/SA) terconazole 0.4 % vaginal cream INSERT 1 APPLICATORF UL VAGINALLY ONCE DAILY FOR 7 DAYS terconazole 0.4 % vaginal cream INSERT 1 APPLICATORF UL VAGINALLY ONCE DAILY FOR 7 DAYS No terconazol e 0.4 % vaginal cream INSERT 1 APPLICATOR FUL VAGINALLY ONCE DAILY FOR 7 DAYS [facility] fluconazole 200 MG Oral Tablet fluconazole 200 MG Oral Tablet Yes 200mg 1xD [facility] (LUF/LI V/SA) hydroxyzine hydrochlori de 25 MG Oral Tablet hydroxyzine hydrochlori de 25 MG Oral Tablet Yes 25mg Q7.00H [facility] (LUF/LI V/SA) trazodone 300 mg tablet TAKE 1 TABLET BY MOUTH ONCE DAILY AT BEDTIME trazodone 300 mg tablet TAKE 1 TABLET BY MOUTH ONCE DAILY AT BEDTIME No trazodone 300 mg tablet TAKE 1 TABLET BY MOUTH ONCE DAILY AT BEDTIME [facility] ketoconazol e 20 MG/ML Topical Cream ketoconazol e 20 MG/ML Topical Cream Yes [address] [facility] (LUF/LI V/SA) armodafinil 150 mg tablet Take 1 tablet every day by oral route for 30 days. armodafinil 150 mg tablet Take 1 tablet every day by oral route for 30 days. No 1 Q1D armodafini l 150 mg tablet Take 1 tablet every day by oral route for [address] [facility] sulfamethox azole 800 MG / trimethopri m 160 MG Oral Tablet sulfamethox azole 800 MG / trimethopri m 160 MG Oral Tablet Yes [address] [facility] (LUF/LI V/SA) azelaic acid 15 % topical gel APPLY A THIN LAYER TO THE AFFECTED AREA(S) BY TOPICAL ROUTE 2 TIMES PER DAY azelaic acid 15 % topical gel APPLY A THIN LAYER TO THE AFFECTED AREA(S) BY TOPICAL ROUTE 2 TIMES PER DAY No azelaic acid 15 % topical gel APPLY A THIN LAYER TO THE AFFECTED AREA(S) BY TOPICAL ROUTE 2 TIMES PER DAY [facility] tramadol hydrochlori de 50 MG Oral Tablet tramadol hydrochlori de 50 MG Oral Tablet Yes 50mg [address]xD [facility] (LUF/LI V/SA) azithromyci n 500 mg tablet TAKE 1 TABLET BY MOUTH ONCE DAILY azithromyci n 500 mg tablet TAKE 1 TABLET BY MOUTH ONCE DAILY No azithromyc in 500 mg tablet TAKE 1 TABLET BY MOUTH ONCE DAILY [facility] betamethaso ne 0.5 MG/ML / clotrimazol e 10 MG/ML Topical Cream betamethaso ne 0.5 MG/ML / clotrimazol e 10 MG/ML Topical Cream Yes [address] [facility] (LUF/LI V/SA) benzonatate 100 mg capsule TAKE 1 CAPSULE BY MOUTH EVERY 4 HOURS NEEDED benzonatate 100 mg capsule TAKE 1 CAPSULE BY MOUTH EVERY 4 HOURS NEEDED No benzonatat e 100 mg capsule TAKE 1 CAPSULE BY MOUTH EVERY 4 HOURS NEEDED [facility] cephalexin 500 mg capsule cephalexin 500 mg capsule Yes 500mg [address]xD [facility] (LUF/LI V/SA) clotrimazol e 20 MG/ML Vaginal Cream clotrimazol e 20 MG/ML Vaginal Cream Yes [address] [facility] (LUF/LI V/SA) Bydureon BCise 2 mg/0.85 mL subcutaneou s auto-inject or Inject 2 mg every week by subcutaneou s route. Bydureon BCise 2 mg/0.85 mL subcutaneou s auto-inject or Inject 2 mg every week by subcutaneou s route. No 2mg Q1W Bydureon BCise 2 mg/0.85 mL subcutaneo us auto-injec tor Inject 2 mg every week by subcutaneo us route. [facility] fluconazole 200 MG Oral Tablet fluconazole 200 MG Oral Tablet Yes 200mg [address]xD [facility] (LUF/LI V/SA) ceftriaxone 1 gram solution for injection Take 1 g by injection route. ceftriaxone 1 gram solution for injection Take 1 g by injection route. No 1g ceftriaxon e 1 gram solution for injection Take 1 g by injection route. [facility] hydroxyzine hydrochlori de 25 MG Oral Tablet hydroxyzine hydrochlori de 25 MG Oral Tablet Yes 25mg Q7.00H [facility] (LUF/LI V/SA) ketoconazol e 20 MG/ML Topical Cream ketoconazol e 20 MG/ML Topical Cream Yes [address] [facility] (LUF/LI V/SA) glimepiride 4 mg tablet Take 1 tablet every day by oral route. glimepiride 4 mg tablet Take 1 tablet every day by oral route. No 1 Q1D glimepirid e 4 mg tablet Take 1 tablet every day by oral route. [facility] sulfamethox azole 800 MG / trimethopri m 160 MG Oral Tablet sulfamethox azole 800 MG / trimethopri m 160 MG Oral Tablet Yes [address] [facility] (LUF/LI V/SA) Humulin R Regular U-100 Insuln Humulin R Regular U-100 Insuln No Humulin R Regular U-100 Insuln [facility] tramadol hydrochlori de 50 MG Oral Tablet tramadol hydrochlori de 50 MG Oral Tablet Yes 50mg [address]xD [facility] (LUF/LI V/SA) hyoscyamine 0.125 mg sublingual tablet DISSOLVE 1 TABLET IN MOUTH 4 TIMES DAILY hyoscyamine 0.125 mg sublingual tablet DISSOLVE 1 TABLET IN MOUTH 4 TIMES DAILY No hyoscyamin e 0.125 mg sublingual tablet DISSOLVE 1 TABLET IN MOUTH 4 TIMES DAILY [facility] betamethaso ne 0.5 MG/ML / clotrimazol e 10 MG/ML Topical Cream betamethaso ne 0.5 MG/ML / clotrimazol e 10 MG/ML Topical Cream Yes 1 2xD topically 2 times per day (for 2 weeks, apply to vulva [facility] perine[facility]) [facility] Latuda 60 mg tablet Take 1 tablet every day by oral route. Latuda 60 mg tablet Take 1 tablet every day by oral route. No 1 Q1D Latuda 60 mg tablet Take 1 tablet every day by oral route. [facility] betamethaso ne 0.5 MG/ML / clotrimazol e 10 MG/ML Topical Cream betamethaso ne 0.5 MG/ML / clotrimazol e 10 MG/ML Topical Cream Yes 1 2xD [facility] lithium carbonate ER 450 mg tablet,exte nded release Take 1 tablet every day by oral route. lithium carbonate ER 450 mg tablet,exte nded release Take 1 tablet every day by oral route. No 1 Q1D lithium carbonate ER 450 mg tablet,ext ended release Take 1 tablet every day by oral route. [facility] cephalexin 500 mg capsule cephalexin 500 mg capsule Yes 500mg [address]xD [facility] metformin 500 mg tablet Take 2 tablets twice a day by oral route. metformin 500 mg tablet Take 2 tablets twice a day by oral route. No 2 BID metformin 500 mg tablet Take 2 tablets twice a day by oral route. [facility] clotrimazol e 20 MG/ML Vaginal Cream clotrimazol e 20 MG/ML Vaginal Cream Yes [address] [facility] (LUF/LI V/SA) metronidazo le 0.75 % topical gel APPLY A THIN LAYER TO THE AFFECTED AREA(S) BY TOPICAL ROUTE 2 TIMES PER DAY IN THE MORNING AND EVENING metronidazo le 0.75 % topical gel APPLY A THIN LAYER TO THE AFFECTED AREA(S) BY TOPICAL ROUTE 2 TIMES PER DAY IN THE MORNING AND EVENING No metronidaz ole 0.75 % topical gel APPLY A THIN LAYER TO THE AFFECTED AREA(S) BY TOPICAL ROUTE 2 TIMES PER DAY IN THE MORNING AND EVENING [facility] fluconazole 200 MG Oral Tablet fluconazole 200 MG Oral Tablet Yes 200mg [address]xD [facility] (LUF/LI V/SA) metronidazo le 500 mg tablet Take 1 tablet by oral route as directed. metronidazo le 500 mg tablet Take 1 tablet by oral route as directed. No metronidaz ole 500 mg tablet Take 1 tablet by oral route as directed. [facility] hydroxyzine hydrochlori de 25 MG Oral Tablet hydroxyzine hydrochlori de 25 MG Oral Tablet Yes 25mg Q7.00H [facility] (LUF/LI V/SA) terconazole 0.4 % vaginal cream INSERT 1 APPLICATORF UL VAGINALLY ONCE DAILY FOR 7 DAYS terconazole 0.4 % vaginal cream INSERT 1 APPLICATORF UL VAGINALLY ONCE DAILY FOR 7 DAYS No terconazol e 0.4 % vaginal cream INSERT 1 APPLICATOR FUL VAGINALLY ONCE DAILY FOR 7 DAYS [facility] ketoconazol e 20 MG/ML Topical Cream ketoconazol e 20 MG/ML Topical Cream Yes [address] [facility] (LUF/LI V/SA) sulfamethox azole 800 MG / trimethopri m 160 MG Oral Tablet sulfamethox azole 800 MG / trimethopri m 160 MG Oral Tablet Yes [address] [facility] (LUF/LI V/SA) trazodone 300 mg tablet TAKE 1 TABLET BY MOUTH ONCE DAILY AT BEDTIME trazodone 300 mg tablet TAKE 1 TABLET BY MOUTH ONCE DAILY AT BEDTIME No trazodone 300 mg tablet TAKE 1 TABLET BY MOUTH ONCE DAILY AT BEDTIME [facility] tramadol hydrochlori de 50 MG Oral Tablet tramadol hydrochlori de 50 MG Oral Tablet Yes 50mg [address]xD [facility] (LUF/LI V/SA) cetirizine 10 mg tablet Take 1 tablet every day by oral route. cetirizine 10 mg tablet Take 1 tablet every day by oral route. No 1 Q1D cetirizine 10 mg tablet Take 1 tablet every day by oral route. [facility] betamethaso ne 0.5 MG/ML / clotrimazol e 10 MG/ML Topical Cream betamethaso ne 0.5 MG/ML / clotrimazol e 10 MG/ML Topical Cream Yes 1 2xD [facility] (LUF/LI V/SA) Flonase Allergy Relief 50 mcg/actuati on nasal spray,suspe nsion [place] 1 spray every day by intranasal route. Flonase Allergy Relief 50 mcg/actuati on nasal spray,suspe nsion [place] 1 spray every day by intranasal route. No 1spray( s) Q1D Flonase Allergy Relief 50 mcg/actuat ion nasal spray,susp ension [place] 1 spray every day by intranasal route. [facility] cephalexin 500 mg capsule cephalexin 500 mg capsule Yes 500mg 3xD [facility] Latuda 20 mg tablet Take 1 tablet every day by oral route. Latuda 20 mg tablet Take 1 tablet every day by oral route. No 1 Q1D Latuda 20 mg tablet Take 1 tablet every day by oral route. [facility] clotrimazol e 20 MG/ML Vaginal Cream clotrimazol e 20 MG/ML Vaginal Cream Yes 1 [facility] (LUF/LI V/SA) armodafinil 150 mg tablet Take 1 tablet every day by oral route for 30 days. armodafinil 150 mg tablet Take 1 tablet every day by oral route for 30 days. No armodafini l 150 mg tablet Take 1 tablet every day by oral route for 30 days. [facility] fluconazole 200 MG Oral Tablet fluconazole 200 MG Oral Tablet Yes 200mg 1xD [facility] azelaic acid 15 % topical gel APPLY A THIN LAYER TO THE AFFECTED AREA(S) BY TOPICAL ROUTE 2 TIMES PER DAY azelaic acid 15 % topical gel APPLY A THIN LAYER TO THE AFFECTED AREA(S) BY TOPICAL ROUTE 2 TIMES PER DAY No azelaic acid 15 % topical gel APPLY A THIN LAYER TO THE AFFECTED AREA(S) BY TOPICAL ROUTE 2 TIMES PER DAY [facility] hydroxyzine hydrochlori de 25 MG Oral Tablet hydroxyzine hydrochlori de 25 MG Oral Tablet Yes 25mg Q7.00H [facility] (LUF/LI V/SA) azithromyci n 500 mg tablet TAKE 1 TABLET BY MOUTH ONCE DAILY azithromyci n 500 mg tablet TAKE 1 TABLET BY MOUTH ONCE DAILY No azithromyc in 500 mg tablet TAKE 1 TABLET BY MOUTH ONCE DAILY [facility] ketoconazol e 20 MG/ML Topical Cream ketoconazol e 20 MG/ML Topical Cream Yes [address] [facility] (LUF/LI V/) benzonatate 100 mg capsule TAKE 1 CAPSULE BY MOUTH EVERY 4 HOURS NEEDED benzonatate 100 mg capsule TAKE 1 CAPSULE BY MOUTH EVERY 4 HOURS NEEDED No benzonatat e 100 mg capsule TAKE 1 CAPSULE BY MOUTH EVERY [address] [facility] ondansetron 4 mg disintegrat ing tablet ondansetron 4 mg disintegrat ing tablet Yes 4mg [address]xD [facility] (LUF/LI V/) sulfamethox azole 800 MG / trimethopri m 160 MG Oral Tablet sulfamethox azole 800 MG / trimethopri m 160 MG Oral Tablet Yes [address] [facility] Bydureon BCise 2 mg/0.85 mL subcutaneou s auto-inject or Inject 2 mg every week by subcutaneou s route. Bydureon BCise 2 mg/0.85 mL subcutaneou s auto-inject or Inject 2 mg every week by subcutaneou s route. No 2mg Q1W Bydureon BCise 2 mg/0.85 mL subcutaneo us auto-injec tor Inject 2 mg every week by subcutaneo us route. [facility] tramadol hydrochlori de 50 MG Oral Tablet tramadol hydrochlori de 50 MG Oral Tablet Yes 50mg [address]xD [facility] ceftriaxone 1 gram solution for injection Take 1 g by injection route. ceftriaxone 1 gram solution for injection Take 1 g by injection route. No 1g ceftriaxon e 1 gram solution for injection Take [address] injection [address] [facility] betamethaso ne 0.5 MG/ML / clotrimazol e 10 MG/ML Topical Cream betamethaso ne 0.5 MG/ML / clotrimazol e 10 MG/ML Topical Cream Yes [address] [facility] (LUF/LI V/SA) cetirizine 10 mg tablet Take 1 tablet every day by oral route. cetirizine 10 mg tablet Take 1 tablet every day by oral route. No 1 Q1D cetirizine 10 mg tablet Take 1 tablet every day by oral route. [facility] cephalexin 500 mg capsule cephalexin 500 mg capsule Yes 500mg [facility]xD [facility] Cipro 500 mg tablet Take 1 tablet every 12 hours by oral route for 7 days. Cipro 500 mg tablet Take 1 tablet every 12 hours by oral route for 7 days. No 1 Q12H Cipro 500 mg tablet Take 1 tablet every 12 hours by oral route for 7 days. [facility] clotrimazol e 20 MG/ML Vaginal Cream clotrimazol e 20 MG/ML Vaginal Cream Yes 1 [facility] (LUF/LI V/SA) Flonase Allergy Relief 50 mcg/actuati on nasal spray,suspe nsion [place] 1 spray every day by intranasal route. Flonase Allergy Relief 50 mcg/actuati on nasal spray,suspe nsion [place] 1 spray every day by intranasal route. No 1spray( s) Q1D Flonase Allergy Relief 50 mcg/actuat ion nasal spray,susp ension [place] 1 spray every day by intranasal route. [facility] fluconazole 200 MG Oral Tablet fluconazole 200 MG Oral Tablet Yes 200mg [address]xD [facility] hydroxyzine hydrochlori de 25 MG Oral Tablet hydroxyzine hydrochlori de 25 MG Oral Tablet Yes 25mg Q7.00H [facility] glimepiride 4 mg tablet Take 1 tablet every day by oral route. glimepiride 4 mg tablet Take 1 tablet every day by oral route. No 1 Q1D glimepirid e 4 mg tablet Take 1 tablet every day by oral route. [facility] ketoconazol e 20 MG/ML Topical Cream ketoconazol e 20 MG/ML Topical Cream Yes [address] [facility]) Humulin R Regular U-100 Insuln Humulin R Regular U-100 Insuln No Humulin R Regular U-100 Insuln [facility] ondansetron 4 mg disintegrat ing tablet ondansetron 4 mg disintegrat ing tablet Yes 4mg 3xD [facility] (LUF/LI V/SA) hyoscyamine 0.125 mg sublingual tablet DISSOLVE 1 TABLET IN MOUTH 4 TIMES DAILY hyoscyamine 0.125 mg sublingual tablet DISSOLVE 1 TABLET IN MOUTH 4 TIMES DAILY No hyoscyamin e 0.125 mg sublingual tablet DISSOLVE 1 TABLET IN MOUTH 4 TIMES DAILY [facility] sulfamethox azole 800 MG / trimethopri m 160 MG Oral Tablet sulfamethox azole 800 MG / trimethopri m 160 MG Oral Tablet Yes [address] [facility] (LUF/LI V/SA) Latuda 20 mg tablet Take 1 tablet every day by oral route. Latuda 20 mg tablet Take 1 tablet every day by oral route. No 1 Q1D Latuda 20 mg tablet Take 1 tablet every day by oral route. [facility] tramadol hydrochlori de 50 MG Oral Tablet tramadol hydrochlori de 50 MG Oral Tablet Yes 50mg [address]xD [facility] (LUF/LI V/SA) Latuda 60 mg tablet Take 1 tablet every day by oral route. Latuda 60 mg tablet Take 1 tablet every day by oral route. No 1 Q1D Latuda 60 mg tablet Take 1 tablet every day by oral route. [facility] betamethaso ne 0.5 MG/ML / clotrimazol e 10 MG/ML Topical Cream betamethaso ne 0.5 MG/ML / clotrimazol e 10 MG/ML Topical Cream Yes [address] [facility] (LUF/LI V/SA) lithium carbonate ER 450 mg tablet,exte nded release Take 1 tablet every day by oral route. lithium carbonate ER 450 mg tablet,exte nded release Take 1 tablet every day by oral route. No 1 Q1D lithium carbonate ER 450 mg tablet,ext ended release Take 1 tablet every day by oral route. [facility] cephalexin 500 mg capsule cephalexin 500 mg capsule Yes 500mg 3xD [facility] (LUF/LI V/SA) metformin 500 mg tablet Take 2 tablets twice a day by oral route. metformin 500 mg tablet Take 2 tablets twice a day by oral route. No 2 BID metformin 500 mg tablet Take 2 tablets twice a day by oral route. [facility] clotrimazol e 20 MG/ML Vaginal Cream clotrimazol e 20 MG/ML Vaginal Cream Yes [address] [facility] (LUF/LI V/SA) metronidazo le 0.75 % topical gel APPLY A THIN LAYER TO THE AFFECTED AREA(S) BY TOPICAL ROUTE 2 TIMES PER DAY IN THE MORNING AND EVENING metronidazo le 0.75 % topical gel APPLY A THIN LAYER TO THE AFFECTED AREA(S) BY TOPICAL ROUTE 2 TIMES PER DAY IN THE MORNING AND EVENING No metronidaz ole 0.75 % topical gel APPLY A THIN LAYER TO THE AFFECTED AREA(S) BY TOPICAL ROUTE 2 TIMES PER DAY IN THE MORNING AND EVENING [facility] fluconazole 200 MG Oral Tablet fluconazole 200 MG Oral Tablet Yes 200mg 1xD [facility]) metronidazo le 500 mg tablet TAKE 4 TABLETS BY MOUTH DIRECTED AT ONCE metronidazo le 500 mg tablet TAKE 4 TABLETS BY MOUTH DIRECTED AT ONCE No metronidaz ole 500 mg tablet TAKE 4 TABLETS BY MOUTH DIRECTED AT ONCE [facility] hydroxyzine hydrochlori de 25 MG Oral Tablet hydroxyzine hydrochlori de 25 MG Oral Tablet Yes 25mg Q7.00H [facility] ([facility]LI V/SA) ondansetron 8 mg disintegrat ing tablet Place 1 tablet twice a day by translingua l route as needed. ondansetron 8 mg disintegrat ing tablet Place 1 tablet twice a day by translingua l route as needed. No 1 BID ondansetro n 8 mg disintegra ting tablet Place 1 tablet twice a day by translingu al route as needed. [facility] ketoconazol e 20 MG/ML Topical Cream ketoconazol e 20 MG/ML Topical Cream Yes 1 2xD [facility] (LUF[facility]LI V/SA) terconazole 0.4 % vaginal cream INSERT 1 APPLICATORF UL VAGINALLY ONCE DAILY FOR 7 DAYS terconazole 0.4 % vaginal cream INSERT 1 APPLICATORF UL VAGINALLY ONCE DAILY FOR 7 DAYS No terconazol e 0.4 % vaginal cream INSERT 1 APPLICATOR FUL VAGINALLY ONCE DAILY FOR 7 DAYS [facility] ondansetron 4 mg disintegrat ing tablet ondansetron 4 mg disintegrat ing tablet Yes 4mg 3xD [facility] ([facility]LI V/SA) sulfamethox azole 800 MG / trimethopri m 160 MG Oral Tablet sulfamethox azole 800 MG / trimethopri m 160 MG Oral Tablet Yes 1 2xD [facility] (LUF/LI V/SA) trazodone 300 mg tablet TAKE 1 TABLET BY MOUTH ONCE DAILY AT BEDTIME trazodone 300 mg tablet TAKE 1 TABLET BY MOUTH ONCE DAILY AT BEDTIME No trazodone 300 mg tablet TAKE 1 TABLET BY MOUTH ONCE DAILY AT BEDTIME [facility] tramadol hydrochlori de 50 MG Oral Tablet tramadol hydrochlori de 50 MG Oral Tablet Yes 50mg 4xD [facility] (LUF[facility]LI V/SA) armodafinil 150 mg tablet Take 1 tablet every day by oral route for 30 days. armodafinil 150 mg tablet Take 1 tablet every day by oral route for 30 days. No armodafini l 150 mg tablet Take 1 tablet every day by oral route for 30 days. [facility] betamethaso ne 0.5 MG/ML / clotrimazol e 10 MG/ML Topical Cream betamethaso ne 0.5 MG/ML / clotrimazol e 10 MG/ML Topical Cream Yes 1 2xD [facility] (LUF/LI V/SA) azelaic acid 15 % topical gel APPLY A THIN LAYER TO THE AFFECTED AREA(S) BY TOPICAL ROUTE 2 TIMES PER DAY azelaic acid 15 % topical gel APPLY A THIN LAYER TO THE AFFECTED AREA(S) BY TOPICAL ROUTE 2 TIMES PER DAY No azelaic acid 15 % topical gel APPLY A THIN LAYER TO THE AFFECTED AREA(S) BY TOPICAL ROUTE 2 TIMES PER DAY [facility] cephalexin 500 mg capsule cephalexin 500 mg capsule Yes 500mg 3xD [facility] (LUF/LI V/SA) azithromyci n 500 mg tablet TAKE 1 TABLET BY MOUTH ONCE DAILY azithromyci n 500 mg tablet TAKE 1 TABLET BY MOUTH ONCE DAILY No azithromyc in 500 mg tablet TAKE 1 TABLET BY MOUTH ONCE DAILY [facility] clotrimazol e 20 MG/ML Vaginal Cream clotrimazol e 20 MG/ML Vaginal Cream Yes 1 [facility] (LUF/LI V/SA) benzonatate 100 mg capsule TAKE 1 CAPSULE BY MOUTH EVERY 4 HOURS NEEDED benzonatate 100 mg capsule TAKE 1 CAPSULE BY MOUTH EVERY 4 HOURS NEEDED No benzonatat e 100 mg capsule TAKE 1 CAPSULE BY MOUTH EVERY 4 HOURS NEEDED [facility] fluconazole 200 MG Oral Tablet fluconazole 200 MG Oral Tablet Yes 200mg 1xD [facility] (LUF/LI V/SA) hydroxyzine hydrochlori de 25 MG Oral Tablet hydroxyzine hydrochlori de 25 MG Oral Tablet Yes 25mg Q7.00H [facility] (LUF/LI V/SA) Bydureon BCise 2 mg/0.85 mL subcutaneou s auto-inject or Inject 2 mg every week by subcutaneou s route. Bydureon BCise 2 mg/0.85 mL subcutaneou s auto-inject or Inject 2 mg every week by subcutaneou s route. No 2mg Q1W Bydureon BCise 2 mg/0.85 mL subcutaneo us auto-injec tor Inject 2 mg every week by subcutaneo us route. [facility] insulin, regular, human 500 UNT/ML Injectable Solution insulin, regular, human 500 UNT/ML Injectable Solution Yes .8 1xD [facility] (LUF/LI V/SA) ceftriaxone 1 gram solution for injection Take 1 g by injection route. ceftriaxone 1 gram solution for injection Take 1 g by injection route. No 1g ceftriaxon e 1 gram solution for injection Take 1 g by injection route. [facility] ketoconazol e 20 MG/ML Topical Cream ketoconazol e 20 MG/ML Topical Cream Yes 1 2xD [facility] (LUF/LI V/SA) cetirizine 10 mg tablet Take 1 tablet every day by oral route. cetirizine 10 mg tablet Take 1 tablet every day by oral route. No 1 Q1D cetirizine 10 mg tablet Take 1 tablet every day by oral route. [facility] ondansetron 4 mg disintegrat ing tablet ondansetron 4 mg disintegrat ing tablet Yes 4mg 3xD [facility] (LUF/LI V/SA) Cipro 500 mg tablet Take 1 tablet every 12 hours by oral route for 7 days. Cipro 500 mg tablet Take 1 tablet every 12 hours by oral route for 7 days. No 1 Q12H Cipro 500 mg tablet Take 1 tablet every 12 hours by oral route for 7 days. [facility] sulfamethox azole 800 MG / trimethopri m 160 MG Oral Tablet sulfamethox azole 800 MG / trimethopri m 160 MG Oral Tablet Yes [address] [facility] (LUF/LI V/SA) Flonase Allergy Relief 50 mcg/actuati on nasal spray,suspe nsion Hannibal 1 spray every day by intranasal route. Flonase Allergy Relief 50 mcg/actuati on nasal spray,suspe nsion [place] 1 spray every day by intranasal route. No 1spray( s) Q1D Flonase Allergy Relief 50 mcg/actuat ion nasal spray,susp ension Hannibal 1 spray every day by intranasal route. [facility] tramadol hydrochlori de 50 MG Oral Tablet tramadol hydrochlori de 50 MG Oral Tablet Yes 50mg [address]xD [facility] (LUF/LI V/SA) betamethaso ne 0.5 MG/ML / clotrimazol e 10 MG/ML Topical Cream betamethaso ne 0.5 MG/ML / clotrimazol e 10 MG/ML Topical Cream Yes [address] [facility] (LUF/LI V/SA) glimepiride 4 mg tablet Take 1 tablet every day by oral route. glimepiride 4 mg tablet Take 1 tablet every day by oral route. No 1 Q1D glimepirid e 4 mg tablet Take 1 tablet every day by oral route. [facility] cephalexin 500 mg capsule cephalexin 500 mg capsule Yes 500mg [address]xD [facility] (LUF/LI V/SA) Humulin R Regular U-100 Insuln Humulin R Regular U-100 Insuln No Humulin R Regular U-100 Insuln [facility] clotrimazol e 20 MG/ML Vaginal Cream clotrimazol e 20 MG/ML Vaginal Cream Yes [address] [facility] (LUF/LI V/SA) hyoscyamine 0.125 mg sublingual tablet DISSOLVE 1 TABLET IN MOUTH 4 TIMES DAILY hyoscyamine 0.125 mg sublingual tablet DISSOLVE 1 TABLET IN MOUTH 4 TIMES DAILY No hyoscyamin e 0.125 mg sublingual tablet DISSOLVE 1 TABLET IN MOUTH 4 TIMES DAILY [facility] fluconazole 200 MG Oral Tablet fluconazole 200 MG Oral Tablet Yes 200mg [address]xD [facility] (LUF/LI V/SA) Latuda 20 mg tablet Take 1 tablet every day by oral route. Latuda 20 mg tablet Take 1 tablet every day by oral route. No 1 Q1D Latuda 20 mg tablet Take 1 tablet every day by oral route. [facility] hydroxyzine hydrochlori de 25 MG Oral Tablet hydroxyzine hydrochlori de 25 MG Oral Tablet Yes 25mg Q7.00H [facility] (LUF/LI V/SA) Latuda 60 mg tablet Take 1 tablet every day by oral route. Latuda 60 mg tablet Take 1 tablet every day by oral route. No 1 Q1D Latuda 60 mg tablet Take 1 tablet every day by oral route. [facility] insulin, regular, human 500 UNT/ML Injectable Solution insulin, regular, human 500 UNT/ML Injectable Solution Yes .[address] [facility] (LUF/LI V/SA) lithium carbonate ER 450 mg tablet,exte nded release Take 1 tablet every day by oral route. lithium carbonate ER 450 mg tablet,exte nded release Take 1 tablet every day by oral route. No 1 Q1D lithium carbonate ER 450 mg tablet,ext ended release Take 1 tablet every day by oral route. [facility] ketoconazol e 20 MG/ML Topical Cream ketoconazol e 20 MG/ML Topical Cream Yes [address] [facility] ondansetron 4 mg disintegrat ing tablet ondansetron 4 mg disintegrat ing tablet Yes [facility] metformin 500 mg tablet Take 2 tablets twice a day by oral route. metformin 500 mg tablet Take 2 tablets twice a day by oral route. No 2 BID metformin 500 mg tablet Take 2 tablets twice a day by oral route. [facility] sulfamethox azole 800 MG / trimethopri m 160 MG Oral Tablet sulfamethox azole 800 MG / trimethopri m 160 MG Oral Tablet Yes [address] [facility]) metronidazo le 0.75 % topical gel APPLY A THIN LAYER TO THE AFFECTED AREA(S) BY TOPICAL ROUTE 2 TIMES PER DAY IN THE MORNING AND EVENING metronidazo le 0.75 % topical gel APPLY A THIN LAYER TO THE AFFECTED AREA(S) BY TOPICAL ROUTE 2 TIMES PER DAY IN THE MORNING AND EVENING No metronidaz ole 0.75 % topical gel APPLY A THIN LAYER TO THE AFFECTED AREA(S) BY TOPICAL ROUTE 2 TIMES PER DAY IN THE MORNING AND EVENING [facility] tramadol hydrochlori de 50 MG Oral Tablet tramadol hydrochlori de 50 MG Oral Tablet Yes 50mg [address]xD [facility] (LUF/LI V/SA) betamethaso ne 0.5 MG/ML / clotrimazol e 10 MG/ML Topical Cream betamethaso ne 0.5 MG/ML / clotrimazol e 10 MG/ML Topical Cream Yes [address] [facility] (LUF/LI V/SA) cephalexin 500 mg capsule cephalexin 500 mg capsule Yes 500mg [address]xD [facility] (LUF/LI V/SA) clotrimazol e 20 MG/ML Vaginal Cream clotrimazol e 20 MG/ML Vaginal Cream Yes [address] [facility] (LUF/LI V/SA) metronidazo le 500 mg tablet TAKE 4 TABLETS BY MOUTH DIRECTED AT ONCE metronidazo le 500 mg tablet TAKE 4 TABLETS BY MOUTH DIRECTED AT ONCE No metronidaz ole 500 mg tablet TAKE 4 TABLETS BY MOUTH DIRECTED AT ONCE [facility] fluconazole 200 MG Oral Tablet fluconazole 200 MG Oral Tablet Yes 200mg [address]xD [facility] (LUF/LI V/SA) ondansetron 8 mg disintegrat ing tablet Place 1 tablet twice a day by translingua l route as needed. ondansetron 8 mg disintegrat ing tablet Place 1 tablet twice a day by translingua l route as needed. No 1 BID ondansetro n 8 mg disintegra ting tablet Place 1 tablet twice a day by translingu al route as needed. [facility] hydroxyzine hydrochlori de 25 MG Oral Tablet hydroxyzine hydrochlori de 25 MG Oral Tablet Yes 25mg Q7.00H [facility] (LUF/LI V/SA) terconazole 0.4 % vaginal cream INSERT 1 APPLICATORF UL VAGINALLY ONCE DAILY FOR 7 DAYS terconazole 0.4 % vaginal cream INSERT 1 APPLICATORF UL VAGINALLY ONCE DAILY FOR 7 DAYS No terconazol e 0.4 % vaginal cream INSERT 1 APPLICATOR FUL VAGINALLY ONCE DAILY FOR 7 DAYS [facility] insulin, regular, human 500 UNT/ML Injectable Solution insulin, regular, human 500 UNT/ML Injectable Solution Yes .[address] [facility] (LUF/LI V/SA) ketoconazol e 20 MG/ML Topical Cream ketoconazol e 20 MG/ML Topical Cream Yes [address] [facility] (LUF/LI V/SA) metronidazo le 0.013 MG/MG Vaginal Gel metronidazo le 0.013 MG/MG Vaginal Gel Yes [address] [facility] (LUF/LI V/SA) trazodone 300 mg tablet TAKE 1 TABLET BY MOUTH ONCE DAILY AT BEDTIME trazodone 300 mg tablet TAKE 1 TABLET BY MOUTH ONCE DAILY AT BEDTIME No trazodone 300 mg tablet TAKE 1 TABLET BY MOUTH ONCE DAILY AT BEDTIME [facility] ondansetron 4 mg disintegrat ing tablet ondansetron 4 mg disintegrat ing tablet Yes 4mg 3xD [facility] (LUF/LI V/SA) albuterol sulfate HFA 90 mcg/actuati on aerosol inhaler Inhale 2 puffs every 4-6 hours by inhalation route as needed. albuterol sulfate HFA 90 mcg/actuati on aerosol inhaler Inhale 2 puffs every 4-6 hours by inhalation route as needed. No 2puff(s ) Q5H albuterol sulfate HFA 90 mcg/actuat ion aerosol inhaler Inhale 2 puffs every 4-6 hours by inhalation route as needed. [facility] ketoconazol e 20 MG/ML Topical Cream ketoconazol e 20 MG/ML Topical Cream Yes [address] [facility] (LUF/LI V/SA) armodafinil 150 mg tablet Take 1 tablet every day by oral route for 30 days. armodafinil 150 mg tablet Take 1 tablet every day by oral route for 30 days. No armodafini l 150 mg tablet Take 1 tablet every day by oral route for [address] [facility] sulfamethox azole 800 MG / trimethopri m 160 MG Oral Tablet sulfamethox azole 800 MG / trimethopri m 160 MG Oral Tablet Yes [address] [facility] (LUF/LI V/SA) azelaic acid 15 % topical gel APPLY A THIN LAYER TO THE AFFECTED AREA(S) BY TOPICAL ROUTE 2 TIMES PER DAY azelaic acid 15 % topical gel APPLY A THIN LAYER TO THE AFFECTED AREA(S) BY TOPICAL ROUTE 2 TIMES PER DAY No azelaic acid 15 % topical gel APPLY A THIN LAYER TO THE AFFECTED AREA(S) BY TOPICAL ROUTE 2 TIMES PER DAY [facility] tramadol hydrochlori de 50 MG Oral Tablet tramadol hydrochlori de 50 MG Oral Tablet Yes 50mg [address]xD [facility] azithromyci n 500 mg tablet TAKE 1 TABLET BY MOUTH ONCE DAILY azithromyci n 500 mg tablet TAKE 1 TABLET BY MOUTH ONCE DAILY No azithromyc in 500 mg tablet TAKE 1 TABLET BY MOUTH ONCE DAILY [facility] sulfamethox azole 800 MG / trimethopri m 160 MG Oral Tablet sulfamethox azole 800 MG / trimethopri m 160 MG Oral Tablet Yes [address] [facility] (LUF/LI V/SA) betamethaso ne 0.5 MG/ML / clotrimazol e 10 MG/ML Topical Cream betamethaso ne 0.5 MG/ML / clotrimazol e 10 MG/ML Topical Cream Yes [address] [facility]) benzonatate 100 mg capsule TAKE 1 CAPSULE BY MOUTH EVERY 4 HOURS NEEDED benzonatate 100 mg capsule TAKE 1 CAPSULE BY MOUTH EVERY 4 HOURS NEEDED No benzonatat e 100 mg capsule TAKE 1 CAPSULE BY MOUTH EVERY 4 HOURS NEEDED [facility] cephalexin 500 mg capsule cephalexin 500 mg capsule Yes 500mg [address]xD [facility] bupropion HCl XL 150 mg 24 hr tablet, extended release bupropion HCl XL 150 mg 24 hr tablet, extended release No bupropion HCl XL 150 mg 24 hr tablet, extended release [facility] clotrimazol e 20 MG/ML Vaginal Cream clotrimazol e 20 MG/ML Vaginal Cream Yes [address] [facility] (LUF/LI V/SA) Bydureon BCise 2 mg/0.85 mL subcutaneou s auto-inject or Inject 2 mg every week by subcutaneou s route. Bydureon BCise 2 mg/0.85 mL subcutaneou s auto-inject or Inject 2 mg every week by subcutaneou s route. No 2mg Q1W Bydureon BCise 2 mg/0.85 mL subcutaneo us auto-injec tor Inject 2 mg every week by subcutaneo us route. [facility] fluconazole 200 MG Oral Tablet fluconazole 200 MG Oral Tablet Yes 200mg [address]xD [facility] (LUF/LI V/SA) ceftriaxone 1 gram solution for injection Take 1 g by injection route. ceftriaxone 1 gram solution for injection Take 1 g by injection route. No 1g ceftriaxon e 1 gram solution for injection Take 1 g by injection route. [facility] hydroxyzine hydrochlori de 25 MG Oral Tablet hydroxyzine hydrochlori de 25 MG Oral Tablet Yes 25mg Q7.00H [facility] (LUF/LI V/SA) cetirizine 10 mg tablet Take 1 tablet every day by oral route. cetirizine 10 mg tablet Take 1 tablet every day by oral route. No cetirizine 10 mg tablet Take 1 tablet every day by oral route. [facility] insulin, regular, human 500 UNT/ML Injectable Solution insulin, regular, human 500 UNT/ML Injectable Solution Yes .[address] [facility] (LUF/LI V/SA) ketoconazol e 20 MG/ML Topical Cream ketoconazol e 20 MG/ML Topical Cream Yes [address] [facility] (LUF/LI V/SA) ciprofloxac in 500 mg tablet Take 1 tablet every 12 hours by oral route for 7 days. ciprofloxac in 500 mg tablet Take 1 tablet every 12 hours by oral route for 7 days. No ciprofloxa john 500 mg tablet Take 1 tablet every 12 hours by oral route for 7 days. [facility] metronidazo le 0.013 MG/MG Vaginal Gel metronidazo le 0.013 MG/MG Vaginal Gel Yes [address] [facility] (LUF/LI V/SA) ondansetron 4 mg disintegrat ing tablet ondansetron 4 mg disintegrat ing tablet Yes 4mg [address]xD [facility] (LUF/LI V/SA) fluconazole 200 mg tablet TAKE 1 TABLET BY MOUTH ONCE DAILY FOR 3 DAYS fluconazole 200 mg tablet TAKE 1 TABLET BY MOUTH ONCE DAILY FOR 3 DAYS No fluconazol e 200 mg tablet TAKE 1 TABLET BY MOUTH ONCE DAILY FOR 3 DAYS [facility] sulfamethox azole 800 MG / trimethopri m 160 MG Oral Tablet sulfamethox azole 800 MG / trimethopri m 160 MG Oral Tablet Yes [address] [facility] fluticasone propionate 50 mcg/actuati on nasal spray,suspe nsion [place] 1 spray every day by intranasal route. fluticasone propionate 50 mcg/actuati on nasal spray,suspe nsion [place] 1 spray every day by intranasal route. No fluticason e propionate 50 mcg/actuat ion nasal spray,susp ension Hannibal 1 spray every day by intranasal route. [facility] tramadol hydrochlori de 50 MG Oral Tablet tramadol hydrochlori de 50 MG Oral Tablet Yes 50mg [address]xD [facility] glimepiride 4 mg tablet Take 1 tablet every day by oral route. glimepiride 4 mg tablet Take 1 tablet every day by oral route. No 1 Q1D glimepirid e 4 mg tablet Take 1 tablet every day by oral route. [facility] betamethaso ne 0.5 MG/ML / clotrimazol e 10 MG/ML Topical Cream betamethaso ne 0.5 MG/ML / clotrimazol e 10 MG/ML Topical Cream Yes 1 2xD [facility] (LU/LI /) Humulin R Regular U-100 Insuln Humulin R Regular U-100 Insuln No Humulin R Regular U-100 Insuln [facility] cephalexin 500 mg capsule cephalexin 500 mg capsule Yes 500mg [address]xD [facility] hyoscyamine 0.125 mg sublingual tablet DISSOLVE 1 TABLET IN MOUTH 4 TIMES DAILY hyoscyamine 0.125 mg sublingual tablet DISSOLVE 1 TABLET IN MOUTH 4 TIMES DAILY No hyoscyamin e 0.125 mg sublingual tablet DISSOLVE 1 TABLET IN MOUTH 4 TIMES DAILY [facility] clotrimazol e 20 MG/ML Vaginal Cream clotrimazol e 20 MG/ML [facility]aginal [facility] Yes [address] [facility] Latuda 20 mg tablet Take 1 tablet every day by oral route. Latuda 20 mg tablet Take 1 tablet every day by oral route. No Latuda 20 mg tablet Take 1 tablet every day by oral route. [facility] fluconazole 200 MG Oral Tablet fluconazole 200 MG Oral Tablet Yes 200mg [facility]xD [facility] Latuda 60 mg tablet Take 1 tablet every day by oral route. Latuda 60 mg tablet Take 1 tablet every day by oral route. No Latuda 60 mg tablet Take 1 tablet every day by oral route. [facility] hydroxyzine hydrochlori de 25 MG Oral Tablet hydroxyzine hydrochlori de 25 MG Oral Tablet Yes 25mg Q7.00H [facility] (LUF/LI V/SA) insulin, regular, human 500 UNT/ML Injectable Solution insulin, regular, human 500 UNT/ML Injectable Solution Yes .8 [facility]xD [facility]/SA[facility] Lidocaine Viscous 2 % mucosal solution Lidocaine Viscous 2 % mucosal solution No Lidocaine Viscous 2 % mucosal solution [facility] ketoconazol e 20 MG/ML Topical Cream ketoconazol e 20 MG/ML Topical Cream Yes 1 [facility]xD [facility]LI V/SA) lithium carbonate ER 450 mg tablet,exte nded release Take 1 tablet every day by oral route. lithium carbonate ER 450 mg tablet,exte nded release Take 1 tablet every day by oral route. No 1 Q1D lithium carbonate ER 450 mg tablet,ext ended release Take 1 tablet every day by oral route. [facility] metronidazo le 0.013 MG/MG Vaginal Gel metronidazo le 0.013 MG/MG Vaginal Gel Yes 1 [facility] (LUF/LI V/SA) metformin 500 mg tablet Take 2 tablets twice a day by oral route. metformin 500 mg tablet Take 2 tablets twice a day by oral route. No 2 BID metformin 500 mg tablet Take 2 tablets twice a day by oral route. [facility] ondansetron 4 mg disintegrat ing tablet ondansetron 4 mg disintegrat ing tablet Yes 4mg [facility]xD [facility] V/SA) metronidazo le 0.75 % topical gel APPLY A THIN LAYER TO THE AFFECTED AREA(S) BY TOPICAL ROUTE 2 TIMES PER DAY IN THE MORNING AND EVENING metronidazo le 0.75 % topical gel APPLY A THIN LAYER TO THE AFFECTED AREA(S) BY TOPICAL ROUTE 2 TIMES PER DAY IN THE MORNING AND EVENING No metronidaz ole 0.75 % topical gel APPLY A THIN LAYER TO THE AFFECTED AREA(S) BY TOPICAL ROUTE 2 TIMES PER DAY IN THE MORNING AND EVENING [facility] sulfamethox azole 800 MG / trimethopri m 160 MG Oral Tablet sulfamethox azole 800 MG / trimethopri m 160 MG Oral Tablet Yes [address] [facility] (LUF/LI V/SA) tramadol hydrochlori de 50 MG Oral Tablet tramadol hydrochlori de 50 MG Oral Tablet Yes 50mg [address]xD [facility] (LUF/LI V/SA) metronidazo le 500 mg tablet TAKE 4 TABLETS BY MOUTH DIRECTED AT ONCE metronidazo le 500 mg tablet TAKE 4 TABLETS BY MOUTH DIRECTED AT ONCE No metronidaz ole 500 mg tablet TAKE 4 TABLETS BY MOUTH DIRECTED AT ONCE [facility] betamethaso ne 0.5 MG/ML / clotrimazol e 10 MG/ML Topical Cream betamethaso ne 0.5 MG/ML / clotrimazol e 10 MG/ML Topical Cream Yes [address] [facility] (LUF/LI V/SA) ondansetron 8 mg disintegrat ing tablet Place 1 tablet twice a day by translingua l route as needed. ondansetron 8 mg disintegrat ing tablet Place 1 tablet twice a day by translingua l route as needed. No ondansetro n 8 mg disintegra ting tablet Place 1 tablet twice a day by translingu al route as needed. [facility] cephalexin 500 mg capsule cephalexin 500 mg capsule Yes 500mg 3xD [facility] (LUF/LI V/SA) terconazole 0.4 % vaginal cream INSERT 1 APPLICATORF UL VAGINALLY ONCE DAILY FOR 7 DAYS terconazole 0.4 % vaginal cream INSERT 1 APPLICATORF UL VAGINALLY ONCE DAILY FOR 7 DAYS No terconazol e 0.4 % vaginal cream INSERT 1 APPLICATOR FUL VAGINALLY ONCE DAILY FOR 7 DAYS [facility] clotrimazol e 20 MG/ML Vaginal Cream clotrimazol e 20 MG/ML Vaginal Cream Yes [address] [facility] (LUF/LI V/SA) fluconazole 200 MG Oral Tablet fluconazole 200 MG Oral Tablet Yes 200mg [facility]xD [facility]LI V/SA) trazodone 300 mg tablet TAKE 1 TABLET BY MOUTH ONCE DAILY AT BEDTIME trazodone 300 mg tablet TAKE 1 TABLET BY MOUTH ONCE DAILY AT BEDTIME No trazodone 300 mg tablet TAKE 1 TABLET BY MOUTH ONCE DAILY AT BEDTIME [facility] hydroxyzine hydrochlori de 25 MG Oral Tablet hydroxyzine hydrochlori de 25 MG Oral Tablet Yes 25mg Q7.00H [facility] (LUF/LI V/SA) armodafinil 150 mg tablet Take 1 tablet every day by oral route for 30 days. armodafinil 150 mg tablet Take 1 tablet every day by oral route for 30 days. No armodafini l 150 mg tablet Take 1 tablet every day by oral route for 30 days. [facility] insulin, regular, human 500 UNT/ML Injectable Solution insulin, regular, human 500 UNT/ML Injectable Solution Yes .8 1xD [facility] (LUF/LI V/SA) azelaic acid 15 % topical gel APPLY A THIN LAYER TO THE AFFECTED AREA(S) BY TOPICAL ROUTE 2 TIMES PER DAY azelaic acid 15 % topical gel APPLY A THIN LAYER TO THE AFFECTED AREA(S) BY TOPICAL ROUTE 2 TIMES PER DAY No azelaic acid 15 % topical gel APPLY A THIN LAYER TO THE AFFECTED AREA(S) BY TOPICAL ROUTE 2 TIMES PER DAY [facility] ketoconazol e 20 MG/ML Topical Cream ketoconazol e 20 MG/ML Topical Cream Yes 1 2xD [facility] (LUF/LI V/SA) metronidazo le 0.013 MG/MG Vaginal Gel metronidazo le 0.013 MG/MG Vaginal Gel Yes 1 [facility] (LUF/LI V/SA) azithromyci n 500 mg tablet TAKE 1 TABLET BY MOUTH ONCE DAILY azithromyci n 500 mg tablet TAKE 1 TABLET BY MOUTH ONCE DAILY No azithromyc in 500 mg tablet TAKE 1 TABLET BY MOUTH ONCE DAILY [facility] ondansetron 4 mg disintegrat ing tablet ondansetron 4 mg disintegrat ing tablet Yes 4mg 3xD [facility] (LUF/LI V/SA) benzonatate 100 mg capsule TAKE 1 CAPSULE BY MOUTH EVERY 4 HOURS NEEDED benzonatate 100 mg capsule TAKE 1 CAPSULE BY MOUTH EVERY 4 HOURS NEEDED No benzonatat e 100 mg capsule TAKE 1 CAPSULE BY MOUTH EVERY 4 HOURS NEEDED [facility] sulfamethox azole 800 MG / trimethopri m 160 MG Oral Tablet sulfamethox azole 800 MG / trimethopri m 160 MG Oral Tablet Yes [address] [facility] (LUF/LI V/SA) bupropion HCl XL 150 mg 24 hr tablet, extended release bupropion HCl XL 150 mg 24 hr tablet, extended release No bupropion HCl XL 150 mg 24 hr tablet, extended release [facility] tramadol hydrochlori de 50 MG Oral Tablet tramadol hydrochlori de 50 MG Oral Tablet Yes 50mg [address]xD [facility] (LUF/LI V/SA) Bydureon BCise 2 mg/0.85 mL subcutaneou s auto-inject or Inject 2 mg every week by subcutaneou s route. Bydureon BCise 2 mg/0.85 mL subcutaneou s auto-inject or Inject 2 mg every week by subcutaneou s route. No 2mg Q1W Bydureon BCise 2 mg/0.85 mL subcutaneo us auto-injec tor Inject 2 mg every week by subcutaneo us route. [facility] betamethaso ne 0.5 MG/ML / clotrimazol e 10 MG/ML Topical Cream betamethaso ne 0.5 MG/ML / clotrimazol e 10 MG/ML Topical Cream Yes [address] [facility] (LUF/LI V/SA) cephalexin 500 mg capsule cephalexin 500 mg capsule Yes 500mg [address]xD [facility] (LUF/LI V/SA) ceftriaxone 1 gram solution for injection Take 1 g by injection route. ceftriaxone 1 gram solution for injection Take 1 g by injection route. No 1g ceftriaxon e 1 gram solution for injection Take 1 g by injection route. [facility] clotrimazol e 20 MG/ML Vaginal Cream clotrimazol e 20 MG/ML Vaginal Cream Yes [address] [facility] (LUF/LI V/SA) cetirizine 10 mg tablet Take 1 tablet every day by oral route. cetirizine 10 mg tablet Take 1 tablet every day by oral route. No cetirizine 10 mg tablet Take 1 tablet every day by oral route. [facility] fluconazole 200 MG Oral Tablet fluconazole 200 MG Oral Tablet Yes 200mg [address]xD [facility] (LUF/LI V/SA) ciprofloxac in 500 mg tablet Take 1 tablet every 12 hours by oral route for 7 days. ciprofloxac in 500 mg tablet Take 1 tablet every 12 hours by oral route for 7 days. No ciprofloxa john 500 mg tablet Take 1 tablet every 12 hours by oral route for 7 days. [facility] hydroxyzine hydrochlori de 25 MG Oral Tablet hydroxyzine hydrochlori de 25 MG Oral Tablet Yes 25mg Q7.00H [facility] (LUF/LI V/SA) insulin, regular, human 500 UNT/ML Injectable Solution insulin, regular, human 500 UNT/ML Injectable Solution Yes .[address] [facility] (LUF/LI V/SA) fluconazole 200 mg tablet TAKE 1 TABLET BY MOUTH ONCE DAILY FOR 3 DAYS fluconazole 200 mg tablet TAKE 1 TABLET BY MOUTH ONCE DAILY FOR 3 DAYS No fluconazol e 200 mg tablet TAKE 1 TABLET BY MOUTH ONCE DAILY FOR 3 DAYS [facility] ketoconazol e 20 MG/ML Topical Cream ketoconazol e 20 MG/ML Topical Cream Yes [address] [facility] (LUF/LI V/SA) fluticasone propionate 50 mcg/actuati on nasal spray,suspe nsion [place]ibal 1 spray every day by intranasal route. fluticasone propionate 50 mcg/actuati on nasal spray,suspe nsion [place] 1 spray every day by intranasal route. No fluticason e propionate 50 mcg/actuat ion nasal spray,susp ension Hannibal 1 spray every day by intranasal route. [facility] [facility] metronidazo le 0.013 MG/MG Vaginal Gel metronidazo le 0.013 MG/MG Vaginal Gel Yes [address] [facility] (LUF/LI V/SA) ondansetron 4 mg disintegrat ing tablet ondansetron 4 mg disintegrat ing tablet Yes 4mg 3xD [facility] (LUF/LI V/SA) glimepiride 4 mg tablet Take 1 tablet every day by oral route. glimepiride 4 mg tablet Take 1 tablet every day by oral route. No 1 Q1D glimepirid e 4 mg tablet Take 1 tablet every day by oral route. [facility] sulfamethox azole 800 MG / trimethopri m 160 MG Oral Tablet sulfamethox azole 800 MG / trimethopri m 160 MG Oral Tablet Yes [address] [facility] (LUF/LI V/SA) Humulin R Regular U-100 Insuln Humulin R Regular U-100 Insuln No Humulin R Regular U-100 Insuln [facility] tramadol hydrochlori de 50 MG Oral Tablet tramadol hydrochlori de 50 MG Oral Tablet Yes 50mg 4xD [facility] (LUF/LI V/SA) hyoscyamine 0.125 mg sublingual tablet DISSOLVE 1 TABLET IN MOUTH 4 TIMES DAILY hyoscyamine 0.125 mg sublingual tablet DISSOLVE 1 TABLET IN MOUTH 4 TIMES DAILY No hyoscyamin e 0.125 mg sublingual tablet DISSOLVE 1 TABLET IN MOUTH 4 TIMES DAILY [facility] betamethaso ne 0.5 MG/ML / clotrimazol e 10 MG/ML Topical Cream betamethaso ne 0.5 MG/ML / clotrimazol e 10 MG/ML Topical Cream Yes [address] [facility] (LUF/LI V/SA) Latuda 20 mg tablet Take 1 tablet every day by oral route. Latuda 20 mg tablet Take 1 tablet every day by oral route. No 1 Q1D Latuda 20 mg tablet Take 1 tablet every day by oral route. [facility] cephalexin 500 mg capsule cephalexin 500 mg capsule Yes 500mg [address]xD [facility] (LUF/LI V/SA) clotrimazol e 20 MG/ML Vaginal Cream clotrimazol e 20 MG/ML Vaginal Cream Yes [address] [facility] (LUF/LI V/SA) Latuda 60 mg tablet Take 1 tablet every day by oral route. Latuda 60 mg tablet Take 1 tablet every day by oral route. No Latuda 60 mg tablet Take 1 tablet every day by oral route. [facility] fluconazole 200 MG Oral Tablet fluconazole 200 MG Oral Tablet Yes 200mg [address]xD [facility] (LUF/LI V/SA) Lidocaine Viscous 2 % mucosal solution Lidocaine Viscous 2 % mucosal solution No Lidocaine Viscous 2 % mucosal solution [facility] hydroxyzine hydrochlori de 25 MG Oral Tablet hydroxyzine hydrochlori de 25 MG Oral Tablet Yes 25mg Q7.00H [facility] (LUF/LI V/SA) lisinopril 10 mg tablet Take 1 tablet every day by oral route. lisinopril 10 mg tablet Take 1 tablet every day by oral route. No 1 Q1D lisinopril 10 mg tablet Take 1 tablet every day by oral route. [facility] insulin, regular, human 500 UNT/ML Injectable Solution insulin, regular, human 500 UNT/ML Injectable Solution Yes .8 [facility]xD [facility] ketoconazol e 20 MG/ML Topical Cream ketoconazol e 20 MG/ML Topical Cream Yes 1 2xD [facility] (LUF/LI V/SA) lithium carbonate ER 450 mg tablet,exte nded release Take 1 tablet every day by oral route. lithium carbonate ER 450 mg tablet,exte nded release Take 1 tablet every day by oral route. No 1 Q1D lithium carbonate ER 450 mg tablet,ext ended release Take 1 tablet every day by oral route. [facility] metronidazo le 0.013 MG/MG Vaginal Gel metronidazo le 0.013 MG/MG Vaginal Gel Yes 1 [facility] metformin 500 mg tablet Take 2 tablets twice a day by oral route. metformin 500 mg tablet Take 2 tablets twice a day by oral route. No 2 BID metformin 500 mg tablet Take 2 tablets twice a day by oral route. [facility] ondansetron 4 mg disintegrat ing tablet ondansetron 4 mg disintegrat ing tablet Yes 4mg 3xD [facility] metronidazo le 0.75 % topical gel APPLY A THIN LAYER TO THE AFFECTED AREA(S) BY TOPICAL ROUTE 2 TIMES PER DAY IN THE MORNING AND EVENING metronidazo le 0.75 % topical gel APPLY A THIN LAYER TO THE AFFECTED AREA(S) BY TOPICAL ROUTE 2 TIMES PER DAY IN THE MORNING AND EVENING No metronidaz ole 0.75 % topical gel APPLY A THIN LAYER TO THE AFFECTED AREA(S) BY TOPICAL ROUTE 2 TIMES PER DAY IN THE MORNING AND EVENING [facility] sulfamethox azole 800 MG / trimethopri m 160 MG Oral Tablet sulfamethox azole 800 MG / trimethopri m 160 MG Oral Tablet Yes [address] [facility] (LUF/LI V/SA) metronidazo le 500 mg tablet TAKE 4 TABLETS BY MOUTH DIRECTED AT ONCE metronidazo le 500 mg tablet TAKE 4 TABLETS BY MOUTH DIRECTED AT ONCE No metronidaz ole 500 mg tablet TAKE 4 TABLETS BY MOUTH DIRECTED AT ONCE [facility] tramadol hydrochlori de 50 MG Oral Tablet tramadol hydrochlori de 50 MG Oral Tablet Yes 50mg [address]xD [facility] (LUF/LI V/SA) betamethaso ne 0.5 MG/ML / clotrimazol e 10 MG/ML Topical Cream betamethaso ne 0.5 MG/ML / clotrimazol e 10 MG/ML Topical Cream Yes [address] [facility] (LUF/LI V/SA) ondansetron 8 mg disintegrat ing tablet Place 1 tablet twice a day by translingua l route as needed. ondansetron 8 mg disintegrat ing tablet Place 1 tablet twice a day by translingua l route as needed. No ondansetro n 8 mg disintegra ting tablet Place 1 tablet twice a day by translingu al route as needed. [facility] cephalexin 500 mg capsule cephalexin 500 mg capsule Yes 500mg [address]xD [facility] (LUF/LI V/SA) sulfamethox azole 800 mg-trimetho prim 160 mg tablet sulfamethox azole 800 mg-trimetho prim 160 mg tablet No sulfametho xazole 800 mg-trimeth oprim 160 mg tablet [facility] clotrimazol e 20 MG/ML Vaginal Cream clotrimazol e 20 MG/ML Vaginal Cream Yes [address] [facility] (LUF/LI V/SA) terconazole 0.4 % vaginal cream INSERT 1 APPLICATORF UL VAGINALLY ONCE DAILY FOR 7 DAYS terconazole 0.4 % vaginal cream INSERT 1 APPLICATORF UL VAGINALLY ONCE DAILY FOR 7 DAYS No terconazol e 0.4 % vaginal cream INSERT 1 APPLICATOR FUL VAGINALLY ONCE DAILY FOR 7 DAYS [facility] fluconazole 200 MG Oral Tablet fluconazole 200 MG Oral Tablet Yes 200mg 1xD [facility] (LUF/LI V/SA) hydroxyzine hydrochlori de 25 MG Oral Tablet hydroxyzine hydrochlori de 25 MG Oral Tablet Yes 25mg Q7.00H [facility] ([facility] V/SA) trazodone 300 mg tablet TAKE 1 TABLET BY MOUTH ONCE DAILY AT BEDTIME trazodone 300 mg tablet TAKE 1 TABLET BY MOUTH ONCE DAILY AT BEDTIME No trazodone 300 mg tablet TAKE 1 TABLET BY MOUTH ONCE DAILY AT BEDTIME [facility] insulin, regular, human 500 UNT/ML Injectable Solution insulin, regular, human 500 UNT/ML Injectable Solution Yes .8 1xD [facility] Ventolin HFA 90 mcg/actuati on aerosol inhaler Inhale 2 puffs every 4-6 hours by inhalation route as needed. Ventolin HFA 90 mcg/actuati on aerosol inhaler Inhale 2 puffs every 4-6 hours by inhalation route as needed. No Ventolin HFA 90 mcg/actuat ion aerosol inhaler Inhale 2 puffs every 4-6 hours by inhalation route as needed. [facility] ketoconazol e 20 MG/ML Topical Cream ketoconazol e 20 MG/ML Topical [facility] metronidazo le 0.013 MG/MG Vaginal Gel metronidazo le 0.013 MG/MG Vaginal Gel Yes 1 [facility] ([facility] V/SA) armodafinil 150 mg tablet Take 1 tablet every day by oral route for 30 days. armodafinil 150 mg tablet Take 1 tablet every day by oral route for 30 days. No armodafini l 150 mg tablet Take 1 tablet every day by oral route for [address] [facility] ondansetron 4 mg disintegrat ing tablet ondansetron 4 mg disintegrat ing tablet Yes 4mg 3xD [facility]) azelaic acid 15 % topical gel APPLY A THIN LAYER TO THE AFFECTED AREA(S) BY TOPICAL ROUTE 2 TIMES PER DAY azelaic acid 15 % topical gel APPLY A THIN LAYER TO THE AFFECTED AREA(S) BY TOPICAL ROUTE 2 TIMES PER DAY No azelaic acid 15 % topical gel APPLY A THIN LAYER TO THE AFFECTED AREA(S) BY TOPICAL ROUTE 2 TIMES PER DAY [facility] sulfamethox azole 800 MG / trimethopri m 160 MG Oral Tablet sulfamethox azole 800 MG / trimethopri m 160 MG Oral Tablet Yes [address] [facility] (LUF/LI V/SA) azithromyci n 500 mg tablet TAKE 1 TABLET BY MOUTH ONCE DAILY azithromyci n 500 mg tablet TAKE 1 TABLET BY MOUTH ONCE DAILY No azithromyc in 500 mg tablet TAKE 1 TABLET BY MOUTH ONCE DAILY [facility] tramadol hydrochlori de 50 MG Oral Tablet tramadol hydrochlori de 50 MG Oral Tablet Yes 50mg [address]xD [facility] (LUF/LI V/SA) betamethaso ne 0.5 MG/ML / clotrimazol e 10 MG/ML Topical Cream betamethaso ne 0.5 MG/ML / clotrimazol e 10 MG/ML Topical Cream Yes [address] [facility] (LUF/LI V/SA) benzonatate 100 mg capsule TAKE 1 CAPSULE BY MOUTH EVERY 4 HOURS NEEDED benzonatate 100 mg capsule TAKE 1 CAPSULE BY MOUTH EVERY 4 HOURS NEEDED No benzonatat e 100 mg capsule TAKE 1 CAPSULE BY MOUTH EVERY 4 HOURS NEEDED [facility] cephalexin 500 mg capsule cephalexin 500 mg capsule Yes 500mg [address]xD [facility] (LUF/LI V/SA) bupropion HCl XL 150 mg 24 hr tablet, extended release bupropion HCl XL 150 mg 24 hr tablet, extended release No bupropion HCl XL 150 mg 24 hr tablet, extended release [facility] clotrimazol e 20 MG/ML Vaginal Cream clotrimazol e 20 MG/ML Vaginal Cream Yes [address] [facility] (LUF/LI V/SA) Bydureon BCise 2 mg/0.85 mL subcutaneou s auto-inject or Inject 2 mg every week by subcutaneou s route. Bydureon BCise 2 mg/0.85 mL subcutaneou s auto-inject or Inject 2 mg every week by subcutaneou s route. No 2mg Q1W Bydureon BCise 2 mg/0.85 mL subcutaneo us auto-injec tor Inject 2 mg every week by subcutaneo us route. [facility] betamethaso ne 0.5 MG/ML / clotrimazol e 10 MG/ML Topical Cream betamethaso ne 0.5 MG/ML / clotrimazol e 10 MG/ML Topical Cream Yes [address] [facility] (LUF/LI V/SA) ceftriaxone 1 gram solution for injection Take 1 g by injection route. ceftriaxone 1 gram solution for injection Take 1 g by injection route. No 1g ceftriaxon e 1 gram solution for injection Take 1 g by injection route. [facility] cephalexin 500 mg capsule cephalexin 500 mg capsule Yes 500mg [address]xD [facility] (LUF/LI V/SA) clotrimazol e 20 MG/ML Vaginal Cream clotrimazol e 20 MG/ML Vaginal Cream Yes [address] [facility] (LUF/LI V/SA) cetirizine 10 mg tablet Take 1 tablet every day by oral route. cetirizine 10 mg tablet Take 1 tablet every day by oral route. No cetirizine 10 mg tablet Take 1 tablet every day by oral route. [facility] fluconazole 200 MG Oral Tablet fluconazole 200 MG Oral Tablet Yes 200mg [address]xD [facility] (LUF/LI V/SA) ciprofloxac in 500 mg tablet Take 1 tablet every 12 hours by oral route for 7 days. ciprofloxac in 500 mg tablet Take 1 tablet every 12 hours by oral route for 7 days. No ciprofloxa john 500 mg tablet Take 1 tablet every 12 hours by oral route for 7 days. [facility] fluconazole 200 MG Oral Tablet fluconazole 200 MG Oral Tablet Yes 200mg [address]xD [facility] (LUF/LI V/SA) hydroxyzine hydrochlori de 25 MG Oral Tablet hydroxyzine hydrochlori de 25 MG Oral Tablet Yes 25mg Q7.00H [facility] (LUF/LI V/SA) fluconazole 200 mg tablet TAKE 1 TABLET BY MOUTH ONCE DAILY FOR 3 DAYS fluconazole 200 mg tablet TAKE 1 TABLET BY MOUTH ONCE DAILY FOR 3 DAYS No fluconazol e 200 mg tablet TAKE 1 TABLET BY MOUTH ONCE DAILY FOR 3 DAYS [facility] insulin, regular, human 500 UNT/ML Injectable Solution insulin, regular, human 500 UNT/ML Injectable Solution Yes .[address] [facility] (LUF/LI V/SA) fluticasone propionate 50 mcg/actuati on nasal spray,suspe nsion [place] 1 spray every day by intranasal route. fluticasone propionate 50 mcg/actuati on nasal spray,suspe nsion [place] 1 spray every day by intranasal route. No fluticason e propionate 50 mcg/actuat ion nasal spray,susp ension [place] 1 spray every day by intranasal route. [facility] ketoconazol e 20 MG/ML Topical Cream ketoconazol e 20 MG/ML Topical Cream Yes [address] [facility] (LUF/LI V/SA) lidocaine 0.05 MG/MG Medicated Patch lidocaine 0.05 MG/MG Medicated Patch Yes [address] [facility] (LUF/LI V/SA) glimepiride 4 mg tablet Take 1 tablet every day by oral route. glimepiride 4 mg tablet Take 1 tablet every day by oral route. No 1 Q1D glimepirid e 4 mg tablet Take 1 tablet every day by oral route. [facility] metronidazo le 0.013 MG/MG Vaginal Gel metronidazo le 0.013 MG/MG Vaginal Gel Yes [address] [facility] (LUF/LI V/SA) Humulin R Regular U-100 Insuln Humulin R Regular U-100 Insuln No Humulin R Regular U-100 Insuln [facility] ondansetron 4 mg disintegrat ing tablet ondansetron 4 mg disintegrat ing tablet Yes 4mg [address]xD [facility] (LUF/LI V/SA) hyoscyamine 0.125 mg sublingual tablet DISSOLVE 1 TABLET IN MOUTH 4 TIMES DAILY hyoscyamine 0.125 mg sublingual tablet DISSOLVE 1 TABLET IN MOUTH 4 TIMES DAILY No hyoscyamin e 0.125 mg sublingual tablet DISSOLVE 1 TABLET IN MOUTH 4 TIMES DAILY [facility] sulfamethox azole 800 MG / trimethopri m 160 MG Oral Tablet sulfamethox azole 800 MG / trimethopri m 160 MG Oral Tablet Yes [address] [facility] (LUF/LI V/SA) tramadol hydrochlori de 50 MG Oral Tablet tramadol hydrochlori de 50 MG Oral Tablet Yes 50mg [address]xD [facility] (LUF/LI V/SA) Latuda 20 mg tablet Take 1 tablet every day by oral route. Latuda 20 mg tablet Take 1 tablet every day by oral route. No 1 Q1D Latuda 20 mg tablet Take 1 tablet every day by oral route. [facility] hydroxyzine hydrochlori de 25 MG Oral Tablet hydroxyzine hydrochlori de 25 MG Oral Tablet Yes 25mg Q7.00H [facility] (LUF/LI V/SA) Latuda 60 mg tablet Take 1 tablet every day by oral route. Latuda 60 mg tablet Take 1 tablet every day by oral route. No Latuda 60 mg tablet Take 1 tablet every day by oral route. [facility] ketoconazol e 20 MG/ML Topical Cream ketoconazol e 20 MG/ML Topical Cream Yes 1 [facility]xD [facility] Lidocaine Viscous 2 % mucosal solution Lidocaine Viscous 2 % mucosal solution No Lidocaine Viscous 2 % mucosal solution [facility] sulfamethox azole 800 MG / trimethopri m 160 MG Oral Tablet sulfamethox azole 800 MG / trimethopri m 160 MG Oral Tablet Yes 1 2xD [facility] ([facility]LI V/SA) lisinopril 10 mg tablet Take 1 tablet every day by oral route. lisinopril 10 mg tablet Take 1 tablet every day by oral route. No 1 Q1D lisinopril 10 mg tablet Take 1 tablet every day by oral route. [facility] tramadol hydrochlori de 50 MG Oral Tablet tramadol hydrochlori de 50 MG Oral Tablet Yes 50mg 4xD [facility] ([facility]LI V/SA) lithium carbonate ER 450 mg tablet,exte nded release Take 1 tablet every day by oral route. lithium carbonate ER 450 mg tablet,exte nded release Take 1 tablet every day by oral route. No 1 Q1D lithium carbonate ER 450 mg tablet,ext ended release Take 1 tablet every day by oral route. [facility] metformin 1,000 mg tablet Take 1 tablet twice a day by oral route. metformin 1,000 mg tablet Take 1 tablet twice a day by oral route. No 1 BID metformin 1,000 mg tablet Take 1 tablet twice a day by oral route. [facility] metformin 500 mg tablet Take 2 tablets twice a day by oral route. metformin 500 mg tablet Take 2 tablets twice a day by oral route. No 2 BID metformin 500 mg tablet Take 2 tablets twice a day by oral route. [facility] metronidazo le 0.75 % topical gel APPLY A THIN LAYER TO THE AFFECTED AREA(S) BY TOPICAL ROUTE 2 TIMES PER DAY IN THE MORNING AND EVENING metronidazo le 0.75 % topical gel APPLY A THIN LAYER TO THE AFFECTED AREA(S) BY TOPICAL ROUTE 2 TIMES PER DAY IN THE MORNING AND EVENING No metronidaz ole 0.75 % topical gel APPLY A THIN LAYER TO THE AFFECTED AREA(S) BY TOPICAL ROUTE 2 TIMES PER DAY IN THE MORNING AND EVENING [facility] metronidazo le 500 mg tablet TAKE 4 TABLETS BY MOUTH DIRECTED AT ONCE metronidazo le 500 mg tablet TAKE 4 TABLETS BY MOUTH DIRECTED AT ONCE No metronidaz ole 500 mg tablet TAKE 4 TABLETS BY MOUTH DIRECTED AT ONCE [facility] ondansetron 8 mg disintegrat ing tablet Place 1 tablet twice a day by translingua l route as needed. ondansetron 8 mg disintegrat ing tablet Place 1 tablet twice a day by translingua l route as needed. No ondansetro n 8 mg disintegra ting tablet Place 1 tablet twice a day by translingu al route as needed. [facility] sulfamethox azole 800 mg-trimetho prim 160 mg tablet sulfamethox azole 800 mg-trimetho prim 160 mg tablet No sulfametho xazole 800 mg-trimeth oprim 160 mg tablet [facility] terconazole 0.4 % vaginal cream INSERT 1 APPLICATORF UL VAGINALLY ONCE DAILY FOR 7 DAYS terconazole 0.4 % vaginal cream INSERT 1 APPLICATORF UL VAGINALLY ONCE DAILY FOR 7 DAYS No terconazol e 0.4 % vaginal cream INSERT 1 APPLICATOR FUL VAGINALLY ONCE DAILY FOR 7 DAYS [facility] trazodone 300 mg tablet TAKE 1 TABLET BY MOUTH ONCE DAILY AT BEDTIME trazodone 300 mg tablet TAKE 1 TABLET BY MOUTH ONCE DAILY AT BEDTIME No trazodone 300 mg tablet TAKE 1 TABLET BY MOUTH ONCE DAILY AT BEDTIME [facility] Ventolin HFA 90 mcg/actuati on aerosol inhaler Inhale 2 puffs every 4-6 hours by inhalation route as needed. Ventolin HFA 90 mcg/actuati on aerosol inhaler Inhale 2 puffs every 4-6 hours by inhalation route as needed. No Ventolin HFA 90 mcg/actuat ion aerosol inhaler Inhale 2 puffs every 4-6 hours by inhalation route as needed. [facility] armodafinil 150 mg tablet Take 1 tablet every day by oral route for 30 days. armodafinil 150 mg tablet Take 1 tablet every day by oral route for 30 days. No armodafini l 150 mg tablet Take 1 tablet every day by oral route for [address] [facility] azelaic acid 15 % topical gel APPLY A THIN LAYER TO THE AFFECTED AREA(S) BY TOPICAL ROUTE 2 TIMES PER DAY azelaic acid 15 % topical gel APPLY A THIN LAYER TO THE AFFECTED AREA(S) BY TOPICAL ROUTE 2 TIMES PER DAY No azelaic acid 15 % topical gel APPLY A THIN LAYER TO THE AFFECTED AREA(S) BY TOPICAL ROUTE [address] [facility] azithromyci n 500 mg tablet TAKE 1 TABLET BY MOUTH ONCE DAILY azithromyci n 500 mg tablet TAKE 1 TABLET BY MOUTH ONCE DAILY No azithromyc in 500 mg tablet TAKE 1 TABLET BY MOUTH ONCE DAILY [facility] benzonatate 100 mg capsule TAKE 1 CAPSULE BY MOUTH EVERY 4 HOURS NEEDED benzonatate 100 mg capsule TAKE 1 CAPSULE BY MOUTH EVERY 4 HOURS NEEDED No benzonatat e 100 mg capsule TAKE 1 CAPSULE BY MOUTH EVERY 4 HOURS NEEDED [facility] bupropion HCl XL 150 mg 24 hr tablet, extended release bupropion HCl XL 150 mg 24 hr tablet, extended release No bupropion HCl XL 150 mg 24 hr tablet, extended release [facility] Bydureon BCise 2 mg/0.85 mL subcutaneou s auto-inject or Inject 2 mg every week by subcutaneou s route. Bydureon BCise 2 mg/0.85 mL subcutaneou s auto-inject or Inject 2 mg every week by subcutaneou s route. No 2mg Q1W Bydureon BCise 2 mg/0.85 mL subcutaneo us auto-injec tor Inject 2 mg every week by subcutaneo us route. [facility] ceftriaxone 1 gram solution for injection Take 1 g by injection route. ceftriaxone 1 gram solution for injection Take 1 g by injection route. No 1g ceftriaxon e 1 gram solution for injection Take 1 g by injection route. [facility] cephalexin 500 mg capsule cephalexin 500 mg capsule No cephalexin 500 mg capsule [facility] cetirizine 10 mg tablet Take 1 tablet every day by oral route. cetirizine 10 mg tablet Take 1 tablet every day by oral route. No cetirizine 10 mg tablet Take 1 tablet every day by oral route. [facility] ciprofloxac in 500 mg tablet Take 1 tablet every 12 hours by oral route for 7 days. ciprofloxac in 500 mg tablet Take 1 tablet every 12 hours by oral route for 7 days. No ciprofloxa john 500 mg tablet Take 1 tablet every 12 hours by oral route for 7 days. [facility] escitalopra m 10 mg tablet escitalopra m 10 mg tablet No escitalopr am 10 mg tablet [facility] fluconazole 200 mg tablet TAKE 1 TABLET BY MOUTH ONCE DAILY FOR 3 DAYS fluconazole 200 mg tablet TAKE 1 TABLET BY MOUTH ONCE DAILY FOR 3 DAYS No fluconazol e 200 mg tablet TAKE 1 TABLET BY MOUTH ONCE DAILY FOR 3 DAYS [facility] fluticasone propionate 50 mcg/actuati on nasal spray,suspe nsion [place] 1 spray every day by intranasal route. fluticasone propionate 50 mcg/actuati on nasal spray,suspe nsion [place] 1 spray every day by intranasal route. No fluticason e propionate 50 mcg/actuat ion nasal spray,susp ension [place] 1 spray every day by intranasal route. [facility] glimepiride 4 mg tablet Take 1 tablet every day by oral route. glimepiride 4 mg tablet Take 1 tablet every day by oral route. No glimepirid e 4 mg tablet Take 1 tablet every day by oral route. [facility] Humulin R Regular U-100 Insuln Humulin R Regular U-100 Insuln No Humulin R Regular U-100 Insuln [facility] hydroxyzine HCl 25 mg tablet hydroxyzine HCl 25 mg tablet No hydroxyzin e HCl 25 mg tablet [facility] hyoscyamine 0.125 mg sublingual tablet DISSOLVE 1 TABLET IN MOUTH 4 TIMES DAILY hyoscyamine 0.125 mg sublingual tablet DISSOLVE 1 TABLET IN MOUTH 4 TIMES DAILY No hyoscyamin e 0.125 mg sublingual tablet DISSOLVE 1 TABLET IN MOUTH 4 TIMES DAILY [facility] labetalol 100 mg tablet Take 1 tablet twice a day by oral route. labetalol 100 mg tablet Take 1 tablet twice a day by oral route. No 1 BID labetalol 100 mg tablet Take 1 tablet twice a day by oral route. [facility] Latuda 20 mg tablet Take 1 tablet every day by oral route. Latuda 20 mg tablet Take 1 tablet every day by oral route. No Latuda 20 mg tablet Take 1 tablet every day by oral route. [facility] Latuda 40 mg tablet Latuda 40 mg tablet No Latuda 40 mg tablet [facility] Latuda 60 mg tablet Take 1 tablet every day by oral route. Latuda 60 mg tablet Take 1 tablet every day by oral route. No Latuda 60 mg tablet Take 1 tablet every day by oral route. [facility] Lidocaine Viscous 2 % mucosal solution Lidocaine Viscous 2 % mucosal solution No Lidocaine Viscous 2 % mucosal solution [facility] lisinopril 10 mg tablet Take 1 tablet every day by oral route. lisinopril 10 mg tablet Take 1 tablet every day by oral route. No lisinopril 10 mg tablet Take 1 tablet every day by oral route. [facility] lithium carbonate ER 450 mg tablet,exte nded release Take 1 tablet every day by oral route. lithium carbonate ER 450 mg tablet,exte nded release Take 1 tablet every day by oral route. No 1 Q1D lithium carbonate ER 450 mg tablet,ext ended release Take 1 tablet every day by oral route. [facility] metformin 1,000 mg tablet Take 1 tablet twice a day by oral route. metformin 1,000 mg tablet Take 1 tablet twice a day by oral route. No metformin 1,000 mg tablet Take 1 tablet twice a day by oral route. [facility] metformin 500 mg tablet Take 2 tablets twice a day by oral route. metformin 500 mg tablet Take 2 tablets twice a day by oral route. No 2 BID metformin 500 mg tablet Take 2 tablets twice a day by oral route. [facility] metronidazo le 0.75 % topical gel APPLY A THIN LAYER TO THE AFFECTED AREA(S) BY TOPICAL ROUTE 2 TIMES PER DAY IN THE MORNING AND EVENING metronidazo le 0.75 % topical gel APPLY A THIN LAYER TO THE AFFECTED AREA(S) BY TOPICAL ROUTE 2 TIMES PER DAY IN THE MORNING AND EVENING No metronidaz ole 0.75 % topical gel APPLY A THIN LAYER TO THE AFFECTED AREA(S) BY TOPICAL ROUTE 2 TIMES PER DAY IN THE MORNING AND EVENING [facility] metronidazo le 500 mg tablet TAKE 4 TABLETS BY MOUTH DIRECTED AT ONCE metronidazo le 500 mg tablet TAKE 4 TABLETS BY MOUTH DIRECTED AT ONCE No metronidaz ole 500 mg tablet TAKE 4 TABLETS BY MOUTH DIRECTED AT ONCE [facility] ondansetron 4 mg disintegrat ing tablet ondansetron 4 mg disintegrat ing tablet No ondansetro n [address] [facility] ondansetron 8 mg disintegrat ing tablet Place 1 tablet twice a day by translingua l route as needed. ondansetron 8 mg disintegrat ing tablet Place 1 tablet twice a day by translingua l route as needed. No ondansetro n 8 mg disintegra ting tablet Place 1 tablet twice a day by translingu al route as needed. [facility] sulfamethox azole 800 mg-trimetho prim 160 mg tablet sulfamethox azole 800 mg-trimetho prim 160 mg tablet No sulfametho xazole 800 mg-trimeth oprim 160 mg tablet [facility] terconazole 0.4 % vaginal cream INSERT 1 APPLICATORF UL VAGINALLY ONCE DAILY FOR 7 DAYS terconazole 0.4 % vaginal cream INSERT 1 APPLICATORF UL VAGINALLY ONCE DAILY FOR 7 DAYS No terconazol e 0.4 % vaginal cream INSERT 1 APPLICATOR FUL VAGINALLY ONCE DAILY FOR 7 DAYS [facility] trazodone 300 mg tablet TAKE 1 TABLET BY MOUTH ONCE DAILY AT BEDTIME trazodone 300 mg tablet TAKE 1 TABLET BY MOUTH ONCE DAILY AT BEDTIME No trazodone 300 mg tablet TAKE 1 TABLET BY MOUTH ONCE DAILY AT BEDTIME [facility] Ventolin HFA 90 mcg/actuati on aerosol inhaler Inhale 2 puffs every 4-6 hours by inhalation route as needed. Ventolin HFA 90 mcg/actuati on aerosol inhaler Inhale 2 puffs every 4-6 hours by inhalation route as needed. No Ventolin HFA 90 mcg/actuat ion aerosol inhaler Inhale 2 puffs every 4-6 hours by inhalation route as needed. [facility] armodafinil 150 mg tablet Take 1 tablet every day by oral route for 30 days. armodafinil 150 mg tablet Take 1 tablet every day by oral route for 30 days. No armodafini l 150 mg tablet Take 1 tablet every day by oral route for 30 days. [facility] azelaic acid 15 % topical gel APPLY A THIN LAYER TO THE AFFECTED AREA(S) BY TOPICAL ROUTE 2 TIMES PER DAY azelaic acid 15 % topical gel APPLY A THIN LAYER TO THE AFFECTED AREA(S) BY TOPICAL ROUTE 2 TIMES PER DAY No azelaic acid 15 % topical gel APPLY A THIN LAYER TO THE AFFECTED AREA(S) BY TOPICAL ROUTE 2 TIMES PER DAY [facility] azithromyci n 500 mg tablet TAKE 1 TABLET BY MOUTH ONCE DAILY azithromyci n 500 mg tablet TAKE 1 TABLET BY MOUTH ONCE DAILY No azithromyc in 500 mg tablet TAKE 1 TABLET BY MOUTH ONCE DAILY [facility] benzonatate 100 mg capsule TAKE 1 CAPSULE BY MOUTH EVERY 4 HOURS NEEDED benzonatate 100 mg capsule TAKE 1 CAPSULE BY MOUTH EVERY 4 HOURS NEEDED No benzonatat e 100 mg capsule TAKE 1 CAPSULE BY MOUTH EVERY [address] [facility] Bydureon BCise 2 mg/0.85 mL subcutaneou s auto-inject or Inject 2 mg every week by subcutaneou s route. Bydureon BCise 2 mg/0.85 mL subcutaneou s auto-inject or Inject 2 mg every week by subcutaneou s route. No 2mg Q1W Bydureon BCise 2 mg/0.85 mL subcutaneo us auto-injec tor Inject 2 mg every week by subcutaneo us route. [facility] ceftriaxone 1 gram solution for injection Take 1 g by injection route. ceftriaxone 1 gram solution for injection Take 1 g by injection route. No 1g ceftriaxon e 1 gram solution for injection Take 1 g by injection route. [facility] cetirizine 10 mg tablet Take 1 tablet every day by oral route. cetirizine 10 mg tablet Take 1 tablet every day by oral route. No cetirizine 10 mg tablet Take 1 tablet every day by oral route. [facility] ciprofloxac in 500 mg tablet Take 1 tablet every 12 hours by oral route for 7 days. ciprofloxac in 500 mg tablet Take 1 tablet every 12 hours by oral route for 7 days. No ciprofloxa john 500 mg tablet Take 1 tablet every 12 hours by oral route for 7 days. [facility] fluconazole 200 mg tablet TAKE 1 TABLET BY MOUTH ONCE DAILY FOR 3 DAYS fluconazole 200 mg tablet TAKE 1 TABLET BY MOUTH ONCE DAILY FOR 3 DAYS No fluconazol e 200 mg tablet TAKE 1 TABLET BY MOUTH ONCE DAILY FOR 3 DAYS [facility] fluticasone propionate 50 mcg/actuati on nasal spray,suspe nsion Hannibal 1 spray every day by intranasal route. fluticasone propionate 50 mcg/actuati on nasal spray,suspe nsion [place] 1 spray every day by intranasal route. No fluticason e propionate 50 mcg/actuat ion nasal spray,susp ension [place]ibal 1 spray every day by intranasal route. [facility] glimepiride 4 mg tablet Take 1 tablet every day by oral route. glimepiride 4 mg tablet Take 1 tablet every day by oral route. No 1 Q1D glimepirid e 4 mg tablet Take 1 tablet every day by oral route. [facility] Humulin R Regular U-100 Insuln Humulin R Regular U-100 Insuln No Humulin R Regular U-100 Insuln [facility] hyoscyamine 0.125 mg sublingual tablet DISSOLVE 1 TABLET IN MOUTH 4 TIMES DAILY hyoscyamine 0.125 mg sublingual tablet DISSOLVE 1 TABLET IN MOUTH 4 TIMES DAILY No hyoscyamin e 0.125 mg sublingual tablet DISSOLVE 1 TABLET IN MOUTH [address] [facility] Latuda 20 mg tablet Take 1 tablet every day by oral route. Latuda 20 mg tablet Take 1 tablet every day by oral route. No Latuda 20 mg tablet Take 1 tablet every day by oral route. [facility] Latuda 60 mg tablet Take 1 tablet every day by oral route. Latuda 60 mg tablet Take 1 tablet every day by oral route. No 1 Q1D Latuda 60 mg tablet Take 1 tablet every day by oral route. [facility] Lidocaine Viscous 2 % mucosal solution Lidocaine Viscous 2 % mucosal solution No Lidocaine Viscous 2 % mucosal solution [facility] lithium carbonate ER 450 mg tablet,exte nded release Take 1 tablet every day by oral route. lithium carbonate ER 450 mg tablet,exte nded release Take 1 tablet every day by oral route. No 1 Q1D lithium carbonate ER 450 mg tablet,ext ended release Take 1 tablet every day by oral route. [facility] metformin 500 mg tablet Take 2 tablets twice a day by oral route. metformin 500 mg tablet Take 2 tablets twice a day by oral route. No 2 BID metformin 500 mg tablet Take 2 tablets twice a day by oral route. [facility] metronidazo le 0.75 % topical gel APPLY A THIN LAYER TO THE AFFECTED AREA(S) BY TOPICAL ROUTE 2 TIMES PER DAY IN THE MORNING AND EVENING metronidazo le 0.75 % topical gel APPLY A THIN LAYER TO THE AFFECTED AREA(S) BY TOPICAL ROUTE 2 TIMES PER DAY IN THE MORNING AND EVENING No metronidaz ole 0.75 % topical gel APPLY A THIN LAYER TO THE AFFECTED AREA(S) BY TOPICAL ROUTE 2 TIMES PER DAY IN THE MORNING AND EVENING [facility] metronidazo le 500 mg tablet TAKE 4 TABLETS BY MOUTH DIRECTED AT ONCE metronidazo le 500 mg tablet TAKE 4 TABLETS BY MOUTH DIRECTED AT ONCE No metronidaz ole 500 mg tablet TAKE 4 TABLETS BY MOUTH DIRECTED AT ONCE [facility] ondansetron 8 mg disintegrat ing tablet Place 1 tablet twice a day by translingua l route as needed. ondansetron 8 mg disintegrat ing tablet Place 1 tablet twice a day by translingua l route as needed. No ondansetro n 8 mg disintegra ting tablet Place 1 tablet twice a day by translingu al route as needed. [facility] terconazole 0.4 % vaginal cream INSERT 1 APPLICATORF UL VAGINALLY ONCE DAILY FOR 7 DAYS terconazole 0.4 % vaginal cream INSERT 1 APPLICATORF UL VAGINALLY ONCE DAILY FOR 7 DAYS No terconazol e 0.4 % vaginal cream INSERT 1 APPLICATOR FUL VAGINALLY ONCE DAILY FOR 7 DAYS [facility] trazodone 300 mg tablet TAKE 1 TABLET BY MOUTH ONCE DAILY AT BEDTIME trazodone 300 mg tablet TAKE 1 TABLET BY MOUTH ONCE DAILY AT BEDTIME No trazodone 300 mg tablet TAKE 1 TABLET BY MOUTH ONCE DAILY AT BEDTIME [facility] amLODIPine Besylate 10 MG amLODIPine Besylate 10 MG No 1{table t} QD amLODIPine Besylate 10 MG Zoloft 100 MG Zoloft 100 MG No 1{table t} QD Zoloft 100 MG Losartan Potassium 50 MG Losartan Potassium 50 MG No 1{table t} QD Losartan Potassium 50 MG metFORMIN HCl 500 MG metFORMIN HCl 500 MG No 1{table t_with_ a_meal} BID metFORMIN HCl 500 MG Vital Signs Vital Name Observation Time Observation Value Comments S [facility] Systolic blood pressure 2024-05-09 21:32:00 142 mm[Hg] [facility] Diastolic blood pressure 2024-05-09 21:32:00 84 mm[Hg] [facility] Heart rate 2024-05-09 21:24:00 107 /min [facility] Body temperature 2024-05-09 21:24:00 36.67 Dorothy [facility] Respiratory rate 2024-05-09 21:24:00 19 /min [facility] Body weight 2024-05-09 21:24:00 100.245 kg [facility] BMI 2024-05-09 21:24:00 43.16 kg/m2 [facility] Systolic blood pressure 2024-04-24 14:13:00 150 mm[Hg] manual [facility] Diastolic blood pressure 2024-04-24 14:13:00 100 mm[Hg] manual [facility] Heart rate 2024-04-24 14:10:00 106 /min [facility] Body temperature 2024-04-24 14:10:00 36.33 Dorothy [facility] Respiratory rate 2024-04-24 14:10:00 18 /min [facility] Body height 2024-04-24 14:10:00 152.4 cm [facility] Body weight 2024-04-24 14:10:00 96.752 kg [facility] BMI 2024-04-24 14:10:00 41.66 kg/m2 [facility] Systolic blood pressure 2024-02-03 16:45:00 120 mm[Hg] [facility] Diastolic blood pressure 2024-02-03 16:45:00 85 mm[Hg] [facility] Heart rate 2024-02-03 16:45:00 76 /min [facility] Body temperature 2024-02-03 16:45:00 36.67 Dorothy [facility] Body height 2024-02-03 16:45:00 152.4 cm [facility] Body weight 2024-02-03 16:45:00 97.433 kg [facility] BMI 2024-02-03 16:45:00 41.95 kg/m2 [facility] Oxygen saturation in Arterial blood by Pulse oximetry 2024-02-03 16:45:00 96 /min [facility] Systolic blood pressure 2024-01-17 19:47:00 132 mm[Hg] [facility] Diastolic blood pressure 2024-01-17 19:47:00 91 mm[Hg] [facility] Heart rate 2024-01-17 19:47:00 96 /[facility] 2024-01-17 19:47:00 18 /min [facility] Body height 2024-01-17 19:47:00 152.4 cm [facility] 2024-01-17 19:47:00 99.428 kg [facility] BMI 2024-01-17 19:47:00 42.81 kg/m2 [facility] height 2023-11-09 10:40:00 60 [in_i] [facility] weight 2023-11-09 10:40:00 212.8 [lb_av] Co m[facility] temperature 2023-11-09 10:40:00 97.7 [degF] Com mon [facility] bmi 2023-11-09 10:40:00 41.56 kg/m2 Comm on [facility] oximetry 2023-11-09 10:40:00 97 % Com[facility] respiratory rate 2023-11-09 10:40:00 16 /min [facility] blood pressure systolic 2023-11-09 10:40:00 138 mm[Hg] [facility] blood pressure diastolic 2023-11-09 10:40:00 88 mm[Hg] [facility] Systolic blood pressure 2023-10-28 18:43:00 129 mm[Hg] [facility] Diastolic blood pressure 2023-10-28 18:43:00 92 mm[Hg] [facility] Heart rate 2023-10-28 18:43:00 101 /min [facility] Body height 2023-10-28 18:43:00 152.4 cm [facility] Body weight 2023-10-28 18:43:00 97.886 kg [facility] BMI 2023-10-28 18:43:00 42.15 kg/m2 [facility] height 2023-10-04 15:00:00 60 [in_i] Commo n [facility] weight 2023-10-04 15:00:00 215.0 [lb_av] Co [facility] temperature 2023-10-04 15:00:00 97.2 [degF] Com mon [facility] bmi 2023-10-04 15:00:00 41.98 kg/m2 [facility] oximetry 2023-10-04 15:00:00 99 % Com[facility] respiratory rate 2023-10-04 15:00:00 16 /min [facility] blood pressure systolic 2023-10-04 15:00:00 148 mm[Hg] [facility] blood pressure diastolic 2023-10-04 15:00:00 88 mm[Hg] [facility] Systolic blood pressure 2023-09-05 19:43:00 128 mm[Hg] [facility] Diastolic blood pressure 2023-09-05 19:43:00 76 mm[Hg] [facility] Heart rate 2023-09-05 19:43:00 80 /min [facility] Respiratory rate 2023-09-05 19:43:00 15 /min [facility] Body height 2023-09-05 19:43:00 152.4 cm [facility] Body weight 2023-09-05 19:43:00 99.338 kg [facility] BMI 2023-09-05 19:43:00 42.77 kg/m2 [facility] Systolic blood pressure 2023-08-17 15:53:00 143 mm[Hg] [facility] Diastolic blood pressure 2023-08-17 15:53:00 86 mm[Hg] [facility] Heart rate 2023-08-17 15:52:00 84 /min [facility] Respiratory rate 2023-08-17 15:52:00 18 /min [facility] Body height 2023-08-17 15:52:00 152.4 cm [facility] Body weight 2023-08-17 15:52:00 99.338 kg [facility] BMI 2023-08-17 15:52:00 42.77 kg/m2 [facility] Systolic blood pressure 2023-08-15 18:48:00 130 mm[Hg] [facility] Diastolic blood pressure 2023-08-15 18:48:00 87 mm[Hg] [facility] Heart rate 2023-08-15 18:48:00 96 /min [facility] Respiratory rate 2023-08-15 18:48:00 18 /min [facility] Body height 2023-08-15 18:48:00 152.4 cm [facility] Body weight 2023-08-15 18:48:00 97.977 kg [facility] BMI 2023-08-15 18:48:00 42.18 kg/m2 [facility] Height 2023-07-17 18:52:00 165.1 CM Weight 2023-07-17 18:52:00 99.8 KG Height 2022-10-02 22:15:00 154.94 CM Weight 2022-10-02 22:15:00 107.04 KG Height 2022-08-08 17:47:00 147.32 CM Weight 2022-08-08 17:47:00 104.3 KG Height 2022-07-22 21:45:00 147.32 CM Weight 2022-07-22 21:45:00 99.8 KG Height 2022-07-20 17:59:00 147.32 CM Weight 2022-07-20 17:59:00 99.8 KG Height 2022-06-21 17:39:00 147.32 CM Weight 2022-06-21 17:39:00 98.6 KG BP Diastolic 2022-06-18 00:00:00 100 mm[Hg] [facility] Height 2022-06-18 00:00:00 60 [in_i] [facility] BMI (Body Mass Index) 2022-06-18 00:00:00 41.8 kg/m2 [facility] BP Systolic 2022-06-18 00:00:00 157 mm[Hg] [facility] Body Weight 2022-06-18 00:00:00 3424 [oz_av] [facility] Height 2022-06-14 12:48:00 149.86 CM Weight 2022-06-14 12:48:00 99.8 KG Height 2022-05-26 12:39:00 149.86 CM Weight 2022-05-26 12:39:00 102.1 KG BP Diastolic 2022-05-11 00:00:00 110 mm[Hg] [facility] Height 2022-05-11 00:00:00 60 [in_i] [facility] BMI (Body Mass Index) 2022-05-11 00:00:00 44.5 kg/m2 [facility] BP Systolic 2022-05-11 00:00:00 167 mm[Hg] [facility] Body Weight 2022-05-11 00:00:00 3648 [oz_av] [facility] BP Diastolic 2022-04-12 00:00:00 99 mm[Hg] [facility] Height 2022-04-12 00:00:00 60 [in_i] [facility] BP Systolic 2022-04-12 00:00:00 142 mm[Hg] [facility] Height 2022-03-27 11:56:00 149.86 CM Weight 2022-03-27 11:56:00 98.88 KG Height 2022-03-15 14:25:00 149.86 CM Weight 2022-03-15 14:25:00 104.32 KG BP Diastolic 2022-03-11 00:00:00 94 mm[Hg] [facility] Height 2022-03-11 00:00:00 60 [in_i] [facility] BMI (Body Mass Index) 2022-03-11 00:00:00 44.5 kg/m2 [facility] BP Systolic 2022-03-11 00:00:00 158 mm[Hg] [facility] Body Weight 2022-03-11 00:00:00 3648 [oz_av] [facility] BP Diastolic 2022-01-11 00:00:00 81 mm[Hg] [facility] Height 2022-01-11 00:00:00 60 [in_i] [facility] BMI (Body Mass Index) 2022-01-11 00:00:00 43.9 kg/m2 [facility] BP Systolic 2022-01-11 00:00:00 129 mm[Hg] [facility] Body Weight 2022-01-11 00:00:00 3600 [oz_av] [facility] Height 2022-01-01 22:45:00 152.4 CM Weight 2022-01-01 22:45:00 104.3 KG Height 2021-10-12 00:00:00 60 [in_i] [facility] BP Diastolic 2021-10-05 00:00:00 86 mm[Hg] [facility] Height 2021-10-05 00:00:00 60 [in_i] [facility] BMI (Body Mass Index) 2021-10-05 00:00:00 43.7 kg/m2 [facility] BP Systolic 2021-10-05 00:00:00 128 mm[Hg] [facility] Body Weight 2021-10-05 00:00:00 3584 [oz_av] [facility] BP Diastolic 2021-09-09 00:00:00 103 mm[Hg] [facility] BP Systolic 2021-09-09 00:00:00 153 mm[Hg] [facility] Body Weight 2021-09-09 00:00:00 3680 [oz_av] [facility] BP Diastolic 2021-07-28 00:00:00 83 mm[Hg] [facility] BP Systolic 2021-07-28 00:00:00 129 mm[Hg] [facility] Body Weight 2021-07-28 00:00:00 3680 [oz_av] [facility] BP Diastolic 2021-07-17 00:00:00 84 mm[Hg] [facility] BP Systolic 2021-07-17 00:00:00 146 mm[Hg] [facility] Body Weight 2021-07-17 00:00:00 3648 [oz_av] [facility] BP Diastolic 2021-06-15 00:00:00 87 mm[Hg] [facility] BP Systolic 2021-06-15 00:00:00 148 mm[Hg] [facility] Body Weight 2021-06-15 00:00:00 3744 [oz_av] [facility] BP Diastolic 2021-04-20 00:00:00 81 mm[Hg] [facility] BP Systolic 2021-04-20 00:00:00 121 mm[Hg] [facility] Body Weight 2021-04-20 00:00:00 3664 [oz_av] [facility] BP Diastolic 2021-03-25 00:00:00 85 mm[Hg] [facility] BP Systolic 2021-03-25 00:00:00 133 mm[Hg] [facility] BP Diastolic 2021-03-19 00:00:00 91 mm[Hg] [facility] BP Systolic 2021-03-19 00:00:00 129 mm[Hg] [facility] Body Weight 2021-03-19 00:00:00 3664 [oz_av] [facility] Body Temperature 2023-07-17 23:31:00 98.1 [degF] [facility] Heart Rate 2023-07-17 23:31:00 92 /min [facility] ([facility]) Respiratory Rate 2023-07-17 23:31:00 19 /min [facility]) O2% BldC Oximetry 2023-07-17 23:31:00 96 % [facility] BP Systolic 2023-07-17 23:31:00 144 mm[Hg] [facility] BP Diastolic 2023-07-17 23:31:00 95 mm[Hg] [facility] Pulse Rate 2023-07-17 22:40:00 98 /min [facility] (LUF/DNAA/SA) Height 2023-07-17 18:52:00 65 [in_i] [facility] (F/DANA/SA) Weight 2023-07-17 18:52:00 99.8 kg [facility] ([facility]) BMI (Body Mass Index) 2023-07-17 18:52:00 36.6 kg/m2 [facility] ([facility]) Pulse Rate 2022-10-02 23:10:00 98 /min [facility] ([facility]) O2% BldC Oximetry 2022-10-02 23:10:00 98 % [facility]) BP Systolic 2022-10-02 23:10:00 125 mm[Hg] [facility] BP Diastolic 2022-10-02 23:10:00 84 mm[Hg] [facility] Body Temperature 2022-10-02 22:15:00 98.3 [degF] [facility] Respiratory Rate 2022-10-02 22:15:00 17 /min [facility]) Height 2022-10-02 22:15:00 61 [in_i] [facility] ([facility]) Weight 2022-10-02 22:15:00 236 [lb_av] [facility] BMI (Body Mass Index) 2022-10-02 22:15:00 45.1 kg/m2 [facility] Body Temperature 2022-08-08 17:47:00 98 [degF] [facility]) Pulse Rate 2022-08-08 17:47:00 103 /min [facility] ([facility]) Respiratory Rate 2022-08-08 17:47:00 20 /min [facility]) O2% BldC Oximetry 2022-08-08 17:47:00 96 % [facility]) BP Systolic 2022-08-08 17:47:00 118 mm[Hg] [facility] BP Diastolic 2022-08-08 17:47:00 81 mm[Hg] [facility] Height 2022-08-08 17:47:00 58 [in_i] [facility] ([facility]) Weight 2022-08-08 17:47:00 104.3 kg [facility] ([facility]) BMI (Body Mass Index) 2022-08-08 17:47:00 48.2 kg/m2 [facility] Body Temperature 2022-07-22 21:45:00 99 [degF] [facility]) Pulse Rate 2022-07-22 21:45:00 96 /min [facility] ([facility]) Respiratory Rate 2022-07-22 21:45:00 19 /min [facility]) O2% BldC Oximetry 2022-07-22 21:45:00 99 % [facility]) BP Systolic 2022-07-22 21:45:00 140 mm[Hg] [facility]) BP Diastolic 2022-07-22 21:45:00 85 mm[Hg] [facility]) Height 2022-07-22 21:45:00 58 [in_i] [facility] ([facility]) Weight 2022-07-22 21:45:00 99.8 kg [facility] ([facility]) BMI (Body Mass Index) 2022-07-22 21:45:00 46.1 kg/m2 [facility]) Pulse Rate 2022-07-20 20:57:00 92 /min [facility] ([facility]) O2% BldC Oximetry 2022-07-20 20:57:00 99 % [facility]) BP Systolic 2022-07-20 20:56:00 133 mm[Hg] [facility]) BP Diastolic 2022-07-20 20:56:00 81 mm[Hg] [facility]) Body Temperature 2022-07-20 17:59:00 98 [degF] [facility]) Respiratory Rate 2022-07-20 17:59:00 18 /min [facility] ([facility]) Height 2022-07-20 17:59:00 58 [in_i] [facility] ([facility]) Weight 2022-07-20 17:59:00 99.8 kg [facility] ([facility]) BMI (Body Mass Index) 2022-07-20 17:59:00 46.1 kg/m2 [facility]) Pulse Rate 2022-06-21 20:01:00 86 /min [facility] ([facility]) Respiratory Rate 2022-06-21 20:01:00 18 /min [facility] ([facility]) O2% BldC Oximetry 2022-06-21 20:01:00 97 % [facility]) BP Systolic 2022-06-21 20:01:00 128 mm[Hg] [facility]) BP Diastolic 2022-06-21 20:01:00 92 mm[Hg] [facility]) Body Temperature 2022-06-21 17:39:00 98.2 [degF] [facility]) Height 2022-06-21 17:39:00 58 [in_i] [facility] ([facility]) Weight 2022-06-21 17:39:00 98.6 kg [facility] ([facility]) BMI (Body Mass Index) 2022-06-21 17:39:00 45.6 kg/m2 [facility]) Pulse Rate 2022-06-14 16:31:00 92 /min [facility] ([facility]) O2% BldC Oximetry 2022-06-14 16:31:00 98 % [facility]) BP Systolic 2022-06-14 16:31:00 118 mm[Hg] [facility]) BP Diastolic 2022-06-14 16:31:00 83 mm[Hg] [facility]) Body Temperature 2022-06-14 12:48:00 98.6 [degF] [facility]) Respiratory Rate 2022-06-14 12:48:00 18 /min [facility]) Height 2022-06-14 12:48:00 59 [in_i] [facility] ([facility]) Weight 2022-06-14 12:48:00 99.8 kg [facility] ([facility]) BMI (Body Mass Index) 2022-06-14 12:48:00 44.9 kg/m2 [facility]) Pulse Rate 2022-05-26 16:08:00 89 /min [facility] ([facility]) O2% BldC Oximetry 2022-05-26 16:08:00 98 % [facility]) BP Systolic 2022-05-26 16:08:00 159 mm[Hg] [facility]) BP Diastolic 2022-05-26 16:08:00 92 mm[Hg] [facility]) Heart Rate 2022-05-26 15:02:00 84 /min [facility] ([facility]) Respiratory Rate 2022-05-26 15:02:00 15 /min [facility] ([facility]) Body Temperature 2022-05-26 12:39:00 97.8 [degF] [facility]) Height 2022-05-26 12:39:00 59 [in_i] [facility] ([facility]) Weight 2022-05-26 12:39:00 102.1 kg [facility] ([facility]/SA) BMI (Body Mass Index) 2022-05-26 12:39:00 45.9 kg/m2 [facility]) Pulse Rate 2022-03-27 15:35:00 69 /min [facility] ([facility]) O2% BldC Oximetry 2022-03-27 15:35:00 99 % [facility]) BP Systolic 2022-03-27 15:35:00 128 mm[Hg] [facility]) BP Diastolic 2022-03-27 15:35:00 84 mm[Hg] [facility]) Body Temperature 2022-03-27 11:56:00 97.5 [degF] [facility]) Respiratory Rate 2022-03-27 11:56:00 16 /min [facility]) Height 2022-03-27 11:56:00 59 [in_i] [facility] ([facility]) Weight 2022-03-27 11:56:00 218 [lb_av] [facility]) BMI (Body Mass Index) 2022-03-27 11:56:00 44.5 kg/m2 [facility] ([facility]) Body Temperature 2022-03-15 14:25:00 97.8 [degF] [facility] (LUF/DANA/SA) Pulse Rate 2022-03-15 14:25:00 98 /min [facility] (LUF/DANA/SA) Respiratory Rate 2022-03-15 14:25:00 18 /min [facility] (LUF/DANA/SA) O2% BldC Oximetry 2022-03-15 14:25:00 97 % [facility] (LUF/DANA/SA) BP Systolic 2022-03-15 14:25:00 154 mm[Hg] [facility] (LUF/DANA/SA) BP Diastolic 2022-03-15 14:25:00 109 mm[Hg] [facility] (LUF/DANA/SA) Height 2022-03-15 14:25:00 59 [in_i] [facility] (LUF/DANA/SA) Weight 2022-03-15 14:25:00 230 [lb_av] [facility] (LUF/DANA/SA) BMI (Body Mass Index) 2022-03-15 14:25:00 46.9 kg/m2 [facility] (LUF/DANA/SA) Pulse Rate 2022-01-02 00:33:00 87 /min [facility] (F/DAAN/SA) Respiratory Rate 2022-01-02 00:33:00 17 /min [facility] (F/DANA/SA) O2% BldC Oximetry 2022-01-02 00:33:00 98 % [facility] (F/DANA/SA) BP Systolic 2022-01-02 00:33:00 130 mm[Hg] [facility] (LUF/DANA/SA) BP Diastolic 2022-01-02 00:33:00 84 mm[Hg] [facility] (F/DANA/SA) Body Temperature 2022-01-01 22:45:00 97.4 [degF] [facility] (F/DAAN/SA) Height 2022-01-01 22:45:00 60 [in_i] [facility] (F/DANA/SA) Weight 2022-01-01 22:45:00 104.3 kg [facility] (LUF/DANA/SA) BMI (Body Mass Index) 2022-01-01 22:45:00 45.1 kg/m2 [facility] (F/DANA/SA) Procedures Procedure Date / Time Performed Performing Clinicia n Source POCT HEMOGLOBIN A1C TEST 2024-02-03 17:01:00 Helen Truong [facility] POCT URINALYSIS W/O SPECIFIC GRAVITY 2024-01-17 20:17:00 Trini Crenshaw [facility] POCT TEST 2023-08-17 00:00:00 Vincent Jorge [facility] POCT TEST 2023-08-15 00:00:00 Vincent Jorge [facility] [id number] 2023-01-15 00:00:00 [facility] [id number] 2023-01-15 00:00:00 [facility] [id number] 2023-01-15 00:00:00 [facility] [id number] 2023-01-14 00:00:00 MURJO.02 [facility] [id number] 2023-01-13 00:00:00 FALJO.01 [facility] [id number] 2022-12-18 00:00:00 GEIAL.01 [facility] [id number] 2022-11-24 00:00:00 NASDE [facility] [id number] 2022-11-15 00:00:00 PLAFE [facility] MAMMO, diagnostic, digital, bilateral 2022-04-12 00:00:00 [facility] US, breast, bilateral 2022-04-12 00:00:00 [facility] home sleep study 2021-07-28 00:00:00 [facility] ULTRASOUND OF HEAD AND NECK 2021-06-15 00:00:00 [facility] Plan of Care Planned Activity Planned Date Details Comments Source Diagnostic Test Pending 2022-06-18 00:00:00 HbA1 c (hemoglobin A1c), blood [code = HbA1c (hemoglobin A1c), blood] [facility] Instructions [facility] Encounters Start Date/Time End Date/Time Encounter Type Admission Type Attending Clinicians Care Facility Care Department Encounter ID Source 2023-12-08 08:24:00 Outpatient Caal Babar [facility] [id number] [facility] 2023-11-07 07:47:00 Outpatient Babar Caal [facility] [id number] [facility] 2023-10-04 13:25:01 Outpatient Ten Babar [facility] [id number] [facility] 2022-11-16 15:54:50 Outpatient [facility] LS [id number] [facility] 2021-01-12 13:42:04 Emergency [facility] [id number] [facility] 2021-01-11 23:08:03 Emergency [facility] [id number] [facility] 2024-05-11 14:30:00 2024-05-11 14:30:00 Outpatient R JAZMÍNEvaSHAMEKA HELEN [facility] [id number] [facility] 2024-05-09 15:00:00 2024-05-09 15:48:35 Outpatient R JAMIR CAGE [facility] [id number] [facility] 2024-05-09 15:00:00 2024-05-09 15:48:35 Office Visit Jamir Cage [facility] SR. DIRECTOR PRODUCT MANAGEMENT [facility] 1..840.114 350.1.13.10 4.2.7.2.686 [id number] [facility] 2024-05-01 00:00:00 2024-05-02 12:47:36 Telephone Jamir Cage [facility] SR. DIRECTOR PRODUCT MANAGEMENT [facility] 1.2.840.114 350.1.13.10 4.2.7.2.686 [id number] 107 [id number] [facility] 2024-04-25 00:00:00 2024-04-26 08:21:06 Telephone Jamir Cage [facility] SR. DIRECTOR PRODUCT MANAGEMENT [facility] 1.2.840.114 350.1.13.10 4.2.7.2.686 [id number] 107 [id number] [facility] 2024-04-24 08:30:00 2024-04-24 09:02:10 Outpatient R IVONE PEREZ [facility] [id number] [facility] 2024-04-24 08:30:00 2024-04-24 09:02:10 Office Visit Jamir Cage Brenda A [facility] SR. DIRECTOR PRODUCT MANAGEMENT [facility] 1.2.840.114 350.1.13.10 4.2.7.2.686 [id number] [facility] 2024-03-19 00:00:00 2024-03-19 15:18:40 Telephone [facility] MEDICAL OFFICE BUILDING 1.2840.114 350.1.13.10 4.2.7.2.686 [id number] [facility] 2024-03-16 00:00:00 2024-03-16 14:26:01 Telephone Helen Truong [facility] UZMA?[facility] MEDICAL OFFICE BUILDING 1.2.840.114 350.1.13.10 4.2.7.2.686 [id number] [facility] 2024-03-05 00:00:00 2024-03-05 14:04:48 Telephone Wilmer Sofia Eva MerchantPeteySofia Eva [facility] MEDICAL OFFICE BUILDING 1.2.840.114 350.1.13.10 4.2.7.2.686 [id number] [facility] 2024-02-14 00:00:00 2024-02-14 00:00:00 [facility]EL[facility] [id number] 2024-02-04 10:00:00 2024-02-04 10:15:00 Educational Administrator Visit Pob, Adc Lab Main Helen Truong Pocristiane, Adc Lab Main [facility] NAL BUILDING 1.2.840.114 350.1.13.10 4.2.7.2.686 [id number] [facility] 2024-02-04 10:00:00 2024-02-04 10:00:00 Outpatient R HELEN TRUONG [facility] [id number] [facility] 2024-02-03 11:00:00 2024-02-03 11:23:25 Outpatient R HELEN TRUONG [facility] [id number] [facility] 2024-02-03 11:00:00 2024-02-03 11:23:25 Office Visit Alexi [facility] 1.2840.114 350.1.13.10 4.2.7.2.686 [id number] [facility] 2024-01-23 00:00:00 2024-01-24 12:06:25 Telephone Donte zavaleta [facility] PRIMARY AND SPECIALTY CARE 1.2.840.114 350.1.13.10 4.2.7.2.686 [id number] [facility] 2024-01-19 00:00:00 2024-01-19 14:10:34 Telephone BairdJ Luis zavaleta [facility] PRIMARY AND SPECIALTY CARE 1.2.840.114 350.1.13.10 4.2.7.2.686 [id number] [facility] 2024-01-19 00:00:00 2024-01-19 13:40:41 Case Management Donte zavaleta [facility] NAL BUILDING 1.2840.114 350.1.13.10 4.2.7.2.686 [id number] [facility] 2024-01-18 00:00:00 2024-01-18 15:56:05 Telephone Jazmíncielo [facility] 1.2.840.114 350.1.13.10 4.2.7.2.686 [id number] [facility] 2024-01-17 14:30:00 2024-01-18 10:18:09 Outpatient R TRINI MARQUEZ MARISOL [facility] [id number] [facility] 2024-01-11 00:00:00 2024-01-17 17:49:13 Telephone Helen Truong [facility] MULTISPEC IALTY CENTER AND [facility] 1.0.114 350.1.13.10 4.2.7.2.686 [id number] 220 [id number] [facility] 2024-01-17 14:30:00 2024-01-17 15:00:00 Office Visit Rebeca Marquezsol [facility] 1.0.114 350.1.13.10 4.2.7.2.686 [id number] [facility] 2024-01-04 00:00:00 2024-01-04 10:58:55 Telephone Sofia Merchant Khushbu A [facility] MULTISPEC IALTY CENTER AND [facility] 1.0.114 350.1.13.10 4.2.7.2.686 [id number] 220 [id number] [facility] 2023-12-14 10:30:00 2023-12-14 10:30:00 Outpatient R VINCENT JORGE [facility] [id number] [facility] 2023-12-09 00:00:00 2023-12-09 13:04:52 Telephone Sofia Merchant Khushbu A [facility] MULTISPEC IALTY CENTER AND [facility] 1..114 350.1.13.10 4.2.7.2.686 [id number] 220 [id number] [facility] 2023-12-06 00:00:00 2023-12-07 10:49:56 Telephone Sofia Merchant Khushbu A [facility] MULTISPEC IALTY CENTER AND [facility] 1.0.114 350.1.13.10 4.2.7.2.686 [id number] [facility] 2023-11-09 00:00:00 2023-11-09 00:00:00 OFFICE VISIT ESTAB PT LEVEL 4 STLMLC STLMLC [id number] [facility] 2023-10-28 14:00:00 2023-10-28 15:07:46 [facility] [id number] [facility] 2023-10-28 14:00:00 2023-10-28 15:07:46 Office Visit Alexi [facility] UZMA?[facility] 1.2.840.114 350.1.13.10 4.2.7.2.686 [id number] [facility] 2023-10-04 00:00:00 2023-10-04 00:00:00 OFFICE VISIT NEW PT LEVEL 4 STLMLC STLMLC [id number] [facility] 2023-09-19 11:30:00 2023-09-19 11:30:00 Outpatient R VINCENT JORGE [facility] [id number] [facility] 2023-09-05 14:30:00 2023-09-05 15:01:37 Outpatient R VINCENT JORGE [facility] [id number] [facility] 2023-09-05 14:30:00 2023-09-05 15:01:37 Office Visit Vincent Jorge [facility] 1.2.840.114 350.1.13.10 4.2.7.2.686 [id number] [facility] 2023-08-22 15:07:21 2023-08-22 23:59:00 Outpatient R VINCENT JORGE [facility] [id number] [facility] 2023-08-22 15:07:21 2023-08-22 23:59:00 Hospital Encounter Vincent Jorge [facility] 1.2.840.114 350.1.13.10 4.2.7.2.686 [id number] [facility] 2023-08-17 11:30:00 2023-08-17 11:30:00 Office Visit Vincent Jorge [facility] 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 NAL BUILDING 1.2.840.114 350.1.13.10 4.2.7.2.686 [id number] [facility] 2023-08-17 11:30:00 2023-08-17 11:12:22 Outpatient R VINCENT JORGE [facility] [id number] [facility] 2023-08-15 15:00:00 2023-08-15 15:00:00 Educational Administrator Visit Lab, Jono Holder Elayne [facility] 1.2.840.114 350.1.13.10 4.2.7.2.686 [id number] [facility] 2023-08-15 14:00:00 2023-08-15 14:15:57 Outpatient R VINCENT JORGE [facility] [id number] [facility] 2023-08-15 14:00:00 2023-08-15 14:15:57 Office Visit Vincent Jorge [facility] 1.2.840.114 350.1.13.10 4.2.7.2.686 [id number] [facility] 2023-07-17 18:49:00 2023-07-17 23:46:00 TYPE 2 DM W/HYPERGLY CEMIA 1 LATONYA BRONSON ELIZABETH [address] [facility], [place] [address] [facility] [id number] SIRIA Sanchez (AL/MAGALY V/SA) 2023-07-17 00:00:00 2023-07-17 00:00:00 Inpatient [facility] OZZY Melendez, [address], [place] [address] [facility] JONATAN [id number] [facility] (LUF/LI V/SA) 2023-07-17 00:00:00 2023-07-17 00:00:00 Inpatient [facility] OZZY Melendez, [address], [place] [address] [facility] JONATAN [id number] [facility] l (LUF/LI V/SA) 2023-04-18 00:00:00 2023-04-18 00:00:00 Outpatient GC_LEH_Le_D PRIV PRIV [id number] [facility] 2023-02-16 00:00:00 2023-02-16 00:00:00 Outpatient GC_LEH_Le_D PRIV PRIV [id number] [facility] 2023-02-11 00:00:00 2023-02-11 00:00:00 Outpatient GC_LEH_Le_D PRIV PRIV [id number] [facility] 2023-02-11 00:00:00 2023-02-11 00:00:00 Outpatient GC_LEH_Le_D PRIV PRIV [id number] [facility] 2023-02-09 00:00:00 2023-02-09 00:00:00 Outpatient GC_LEH_Le_D PRIV PRIV [id number] [facility] 2023-01-26 00:00:00 2023-01-26 00:00:00 Outpatient GC_LEH_Le_D PRIV PRIV [id number] [facility] 2023-01-26 00:00:00 2023-01-26 00:00:00 Outpatient GC_LEH_Le_D PRIV PRIV [id number] [facility] 2023-01-21 18:34:00 2023-01-21 19:05:00 Emergency EM Napoleon Nazario [facility] [id number] [facility] 2022-11-15 15:27:00 2023-01-18 20:01:00 Inpatient Jak Grullon [facility] OBPP [id number] [facility] 2022-11-14 12:40:00 2022-11-15 14:20:00 Inpatient EM [facility]ibr[facility] [id number] [facility] 2022-11-13 17:17:00 2022-11-13 17:17:00 Outpatient UNKNOWN HCANW REF [id number] [facility] 2022-10-20 00:00:00 2022-10-20 00:00:00 Outpatient GC_LEH_Le_D PRIV PRIV [id number] [facility] 2022-10-20 00:00:00 2022-10-20 00:00:00 Outpatient GC_LEH_Le_D PRIV PRIV [id number] [facility] 2022-10-02 22:11:00 2022-10-03 23:58:00 INJ POISON OTH EXT COMP PG 2ND TRI 1 DEMETRI DIA [facility], [address], [place] [address] [facility] [id number] [facility] (LUF/LI V/SA) 2022-10-02 00:00:00 2022-10-02 00:00:00 Inpatient [facility], [facility], [place] [address] [facility] [id number] [facility] (LUF/LI V/SA) 2022-10-02 00:00:00 2022-10-02 00:00:00 Inpatient [facility], [address], [place] [address] [facility] [id number] [facility] (LUF/LI V/SA) 2022-09-13 00:00:00 2022-09-13 00:00:00 Outpatient GC_LEH_Le_D [facility] [id number] [facility] 2022-08-19 18:18:00 2022-08-21 12:48:00 Inpatient EM Gavino Mercado [facility]SE [id number] [facility] 2022-08-10 13:28:00 2022-08-10 19:20:00 Emergency EM Renita Ballard [facility] [id number] [facility] 2022-08-08 17:19:00 2022-08-08 19:45:00 INJ POISON OTH EXT COMP PG 1ST TRI [address] [facility] EMD [id number] [facility] (LUF/LI V/SA) 2022-08-08 00:00:00 2022-08-08 00:00:00 Inpatient [facility], [address], [place] [address] [facility] [id number] [facility] (LUF/LI V/SA) 2022-08-08 00:00:00 2022-08-08 00:00:00 Inpatient [facility], [address], [place] [address] [facility] [id number] [facility] (LUF/LI V/SA) 2022-08-07 15:27:00 2022-08-07 17:40:00 Emergency EM Andrea Marcos [facility] [id number] [facility] 2022-07-22 21:41:00 2022-07-23 00:15:00 PRE-EXISTI NG TYPE 1 DM PREG 1ST TRI 1 SANDRINE SIM [facility], [address] [facility] [place] [address] 7 [facility] [id number] [facility] (LUF/LI V/SA) 2022-07-22 00:00:00 2022-07-22 00:00:00 Inpatient [facility] OZZY Melendez, [address] [place] [address] 7 [facility] [id number] [facility] (LUF/LI V/SA) 2022-07-22 00:00:00 2022-07-22 00:00:00 Inpatient [facility] ARASH Al, [address] [place] [address] [facility] [id number] [facility] (LUF/LI V/SA) 2022-07-21 22:46:00 2022-07-21 23:59:00 Inpatient [facility], [address] [place], [place] [address] [facility] [id number] [facility] (LUF/LI V/SA) 2022-07-21 00:00:00 2022-07-21 00:00:00 Inpatient [facility], [address] [place], [place] [id number] [facility] [id number] [facility] (LUF/LI V/SA) 2022-07-20 17:40:00 2022-07-20 21:45:00 THREATENED 1 [facility], [address] [place] [address] [facility] [id number] [facility] (LUF/LI V/SA) 2022-07-20 00:00:00 2022-07-20 00:00:00 Inpatient [facility] OZZY Melendez, [address] [place] [id number] [facility] [id number] [facility] (LUF/LI V/SA) 2022-07-20 00:00:00 2022-07-20 00:00:00 Inpatient [facility], [address] [facility] [place] [address] [facility] [id number] [facility] hospital l (LUF/LI V/SA) 2022-07-13 17:44:00 2022-07-13 21:07:00 Emergency EM Cory Mckeon-Matteo [facility] [id number] [facility] 2022-06-21 16:55:00 2022-06-21 21:07:00 PRE-EXISTI NG TYPE 2 DM PREG 1ST TRI [address] [facility] EMD [id number] [facility] (LUF/LI V/SA) 2022-06-21 00:00:00 2022-06-21 00:00:00 Inpatient [facility], [address], [place] [address] [facility] [id number] [facility] (LUF/LI V/SA) 2022-06-21 00:00:00 2022-06-21 00:00:00 Inpatient [facility] Al, [address], [place] [address] [facility] [id number] [facility] l (LUF/LI V/SA) 2022-06-18 00:00:00 2022-06-18 00:00:00 RENUKA BarberN: [address] [place] [address] , Ph. [facility] - GC_LEH_Clev fitzpatrick Office* [id number] [facility] 2022-06-14 12:15:00 2022-06-14 16:54:00 VOMITING OF UNSPECIFIE D [address] [facility] [id number] [facility] (LUF/LI V/SA) 2022-06-14 00:00:00 2022-06-14 00:00:00 Inpatient [facility] OZZY Melendez, [address], [facility], [facility]35[facility] [id number] Critical [facility] hospital l (LUF/LI V/SA) 2022-06-14 00:00:00 2022-06-14 00:00:00 Inpatient [facility] OZZY Melendez, [address], [facility], [address] [id number] [facility] hospital l (LUF/LI V/SA) 2022-06-14 00:00:00 2022-06-14 00:00:00 Inpatient [facility] OZZY Melendez, [address], [address] [id number] [facility] (LUF/LI V/SA) 2022-05-26 12:36:00 2022-05-26 16:06:00 TYPE 2 DM W/HYPERGLY CEMIA [address] [facility] EMD [id number] [facility] (LUF/LI V/SA) 2022-05-26 00:00:00 2022-05-26 00:00:00 Inpatient [facility] OZZY Melendez, [address], [address] [id number] Critical [facility] hospital l (LUF/LI V/SA) 2022-05-26 00:00:00 2022-05-26 00:00:00 Inpatient [facility] OZZY Melendez, [address], [facility], [address] [id number] [facility] (LUF/LI V/SA) 2022-05-17 00:00:00 2022-05-17 00:00:00 Outpatient PRIV PRIV [id number] [facility] 2022-05-11 00:00:00 2022-05-11 00:00:00 Lani Pitt, SERVICE DELIVERY ANALYST: [address] [place] [address] , Ph. [facility] - GC_LEH_[place] Office* [id number] [facility] 2022-04-12 00:00:00 2022-04-12 00:00:00 Outpatient GC_LEH_Le_D PRIV PRIV [id number] [facility] 2022-04-12 00:00:00 2022-04-12 00:00:00 Outpatient GC_LEH_Le_D PRIV PRIV [id number] [facility] 2022-04-12 00:00:00 2022-04-12 00:00:00 Outpatient GC_LEH_Le_D PRIV PRIV [id number] [facility] 2022-04-12 00:00:00 2022-04-12 00:00:00 Outpatient GC_LEH_Le_D PRIV PRIV [id number] [facility] 2022-04-12 00:00:00 2022-04-12 00:00:00 Outpatient GC_LEH_Le_D PRIV PRIV [id number] [facility] 2022-04-12 00:00:00 2022-04-12 00:00:00 Lani Pitt, SERVICE DELIVERY ANALYST: [address] [place] [address] , Ph. [facility] - [facility] Office* [id number] [facility] 2022-04-10 13:27:00 2022-04-10 18:13:00 Emergency EM LindaAdriana caballero [facility] [id number] 90 [facility] 2022-03-27 11:53:00 2022-03-27 15:57:00 ACUTE CANDIDIASI S VULVA AND VAGINA 1 JOYCE BORGES [facility] N, [address], [place] [address] [facility] [id number] [facility] (LUF/LI V/SA) 2022-03-27 00:00:00 2022-03-27 00:00:00 Inpatient [facility] Al, [address], [facility], [address] [id number] [facility] (LUF/LI V/SA) 2022-03-27 00:00:00 2022-03-27 00:00:00 Inpatient [facility], [address], [address] [id number] [facility] (LUF/LI V/SA) 2022-03-15 13:47:00 2022-03-15 14:46:00 TINEA CRURIS 1 ALIE, ALIA [facility] Al, [address], [place] [id number] [facility] [id number] [facility] (LUF/LI V/SA) 2022-03-15 00:00:00 2022-03-15 00:00:00 Inpatient [facility] Al, [address], [address] [id number] [facility] (LUF/LI V/SA) 2022-03-12 00:00:00 2022-03-12 00:00:00 Outpatient GC_LEH_Le_D PRIV PRIV [id number] [facility] 2022-03-12 00:00:00 2022-03-12 00:00:00 Outpatient GC_LEH_Le_D PRIV PRIV [id number] [facility] 2022-03-11 00:00:00 2022-03-11 00:00:00 Lani Pitt, SERVICE DELIVERY ANALYST: [address] [place] [address] , Ph. [facility] [id number] [facility] 2022-01-11 00:00:00 2022-01-11 00:00:00 Lani Pitt, SERVICE DELIVERY ANALYST: [address] [place] [address] , Ph. [facility] - GC_LEH_[place] Office* [id number] [facility] 2022-01-01 22:35:00 2022-01-02 03:05:00 TYPE 2 DM W/HYPERGLY CEMIA 1 SANDRINE SIM [facility] N, [address], [address] [id number] [facility]LUF/LI V/SA) 2022-01-01 00:00:00 2022-01-01 00:00:00 Inpatient [facility] N, [address], [address] [id number] [facility] (LUF/LI V/SA) 2022-01-01 00:00:00 2022-01-01 00:00:00 Inpatient [facility] N, [address], [address] [id number] Critical access hospital l (LUF/LI V/SA) 2021-10-12 00:00:00 2021-10-12 00:00:00 Outpatient GC_LEH_Le_D [facility] PRIV [id number] [facility] 2021-10-12 00:00:00 2021-10-12 00:00:00 Outpatient GC[facility]LEH_Le_D [facility] [id number] [facility] 2021-10-12 00:00:00 2021-10-12 00:00:00 Lani Pitt, SERVICE DELIVERY ANALYST: [address] [place] [address] , Ph. [facility] - GC_LEH_[place] Office* [id number] [facility] 2021-10-12 00:00:00 2021-10-12 00:00:00 Outpatient Lani Pitt [facility] [id number] 2021-10-06 09:13:00 2021-10-06 09:13:00 Outpatient GC_LEH_Le_D [facility] PRIV [id number] [facility] 2021-10-05 05:32:00 2021-10-05 05:32:00 Outpatient GC_LEH_Le_D PRIV PRIV [id number] [facility] 2021-10-05 00:00:00 2021-10-05 00:00:00 Lani Pitt, SERVICE DELIVERY ANALYST: [address] [place] [address] , Ph. [facility] - [facility] Office* [id number] [facility] 2021-10-05 00:00:00 2021-10-05 00:00:00 Outpatient Lani Pitt [facility] [id number] 2021-09-09 01:27:00 2021-09-09 01:27:00 Outpatient GC_LEH_Le_D [facility] PRIV [id number] [facility] 2021-09-09 00:00:00 2021-09-09 00:00:00 Lani Pitt, SERVICE DELIVERY ANALYST: [address] [place] [address] , Ph. [facility] - [facility] Office* [id number] [facility] 2021-09-09 00:00:00 2021-09-09 00:00:00 Outpatient PittLani [facility] PRIV [id number] 2021-08-04 01:01:00 2021-08-04 01:01:00 Outpatient GC_LEH_Le_D PRIV PRIV [id number] [facility] 2021-07-28 05:08:00 2021-07-28 05:08:00 Outpatient GC_LEH_Le_D PRIV PRIV [id number] [facility] 2021-07-28 00:00:00 2021-07-28 00:00:00 Lani Pitt, SERVICE DELIVERY ANALYST: [address] [place] [address] , Ph. [facility] - [facility] Office* [id number] [facility] 2021-07-28 00:00:00 2021-07-28 00:00:00 Outpatient YoandyLani [facility] PRIV [id number] 2021-07-17 03:54:00 2021-07-17 03:54:00 Outpatient GC_LEH_Le_D PRIV PRIV [id number] [facility] 2021-07-17 00:00:00 2021-07-17 00:00:00 RENUKA BarberN: [address] [place] [address] , Ph. [facility] - [facility] Office* [id number] [facility] 2021-07-17 00:00:00 2021-07-17 00:00:00 Outpatient Luiz Rogers [facility] PRIV [id number] 2021-06-15 02:38:00 2021-06-15 02:38:00 Outpatient GC_LEH_Le_D PRIV PRIV [id number] [facility] 2021-06-15 00:00:00 2021-06-15 00:00:00 Lani Pitt, SERVICE DELIVERY ANALYST: [address] [place] [address] , Ph. [facility] - GC_LEH_[place] Office* [id number] [facility] 2021-06-15 00:00:00 2021-06-15 00:00:00 Outpatient Lani Pitt [facility] PRIV [id number] 10:30:00 2021-04-21 10:30:00 Outpatient GC_LEH_Le_D PRIV PRIV [id number] [facility] 2021-04-20 03:46:00 2021-04-20 03:46:00 Outpatient GC_LEH_Le_D PRIV PRIV [id number] [facility] 2021-04-20 00:00:00 2021-04-20 00:00:00 Lani Pitt, SERVICE DELIVERY ANALYST: [address] [place] [address] , Ph. [facility] - GC_LEH_[place]v [place] Office* [id number] [facility] 2021-04-20 00:00:00 2021-04-20 00:00:00 Outpatient Lani Pitt Mila [facility] PRIV [id number] 2021-03-26 10:59:00 2021-03-26 10:59:00 Outpatient GC_LEH_Le_D PRIV PRIV [id number] [facility] 2021-03-25 02:48:00 2021-03-25 02:48:00 Outpatient GC_LEH_Le_D PRIV PRIV [id number] [facility] 2021-03-25 00:00:00 2021-03-25 00:00:00 Outpatient Lani Pitt [facility] PRIV [id number] 2021-03-25 00:00:00 2021-03-25 00:00:00 Lani Pitt, SERVICE DELIVERY ANALYST: [address] [place] [address] , [address] [facility] Office* [id number] [facility] 2021-03-24 02:59:00 2021-03-24 02:59:00 Outpatient GC_LEH_Le_D [facility] [id number] [facility] 2021-03-19 05:48:00 2021-03-19 05:48:00 Outpatient GC_LEH_Le_D [facility] [id number] [facility] 2021-03-18 20:07:00 2021-03-19 03:12:00 Emergency EM RobertoJonny [facility] [id number] 04 [facility] 2021-03-19 00:00:00 2021-03-19 00:00:00 Outpatient Dennys Roger [facility] [id number] 2021-03-19 00:00:00 2021-03-19 00:00:00 Dennys Roger, SERVICE DELIVERY ANALYST: [address] [place] [address] [address] [facility] Office* [id number] [facility] Medical Results Test Description Test Time Test Comments Results Result Co mments Source [facility] Urinalysis w/o Specific [id number] 20:18:00* Test Item Value Reference Range Interpretation Comme nts POCT PH U (test code = 3254) 5 mg/dl 5-8 POCT U LEUK EST (test code = 3263) negative Negative - Negative POCT U NIT (test code = 3262) negative Negative - Negati ve POCT U PROT (test code = 3259) trace Negative - Negat vanessa POCT U GLU (test code = 3256) 1000 Negative - Negati ve POCT U KETONE (test code = 3258) ++ Negative - Neg ative POCT U BLD (test code = 3257) 50 Negative - Negati ve [facility] [id number] 00:00:00* Test Item Value Reference Range Interpretation Comme nts A1C (test code = 4548-4) 13.5 HEMOGLOBIN [id number] 00:00:00* Test Item Value Reference Range Interpretation Comme nts A1C (test code = 4548-4) 12.9 POCT [id number] 15:53:00* Test Item Value Reference Range Interpretation Comme nts POCT PREG (test code = 1605) Negative On board controls acceptable with C Line (test code = 3574) Yes POCT PREG LOT # (test code = 3575) POCT PREG TEST DATE ( test code = 3576) [facility] [id number] 15:53:00* Test Item Value Reference Range Interpretation Comme nts POCT PREG (test code = 1605) Negative On board controls acceptable with C Line (test code = 3574) Yes POCT PREG LOT # (test code = 3575) POCT PREG TEST DATE ( test code = 3576) [facility] [id number] 19:14:00* Test Item Value Reference Range Interpretation Comme nts POCT PREG (test code = 1605) Negative On board controls acceptable with C Line (test code = 3574) Yes POCT PREG LOT # (test code = 3575) POCT PREG TEST DATE ( test code = 3576) [facility] [id number] 19:14:00* Test Item Value Reference Range Interpretation Comme nts POCT PREG (test code = 1605) Negative On board controls acceptable with C Line (test code = 3574) Yes POCT PREG LOT # (test code = 3575) POCT PREG TEST DATE ( test code = 3576) [facility] Worth[facility]IA[facility] ACID [id number] 23:34:00* Test Item Value Reference Range Interpretation Comme nts LACTATE (test code = LAC) 3.0 mmol/l 0.4-2.0 HH This is a REPEAT IF initial lactate >2.0STLMLXR ABDOMEN 1 VIEW (KUB)2023-07-17 21:11:54SIRIA [facility]/SA)Name: AMINTA NINO : 1990 Sex: FABDOMEN (1 VIEW)HISTORY: Abdominal pain.COMPARISON- none available.FINDINGS:No intestinal obstruction. No free air. The skeletal structures appear normal.Electronically signed by: Lea Forrester 07/17/2023 21:07Dictated By: LEA FORRESTERDate: 07/17/2023 21:11STLMLURINALYSIS WITH REFLEX TO [id number] 21:10:00* Test Item Value Reference Range Interpretation Comme nts Color (test code = UCOLR) Yellow Clarity (test code = UCLAR) Clear Glucose (test code = UGLUC) >=1000 NEGATIVE A Bilirubin (test code = UBILI) NEGATIVE NEGATIVE N Ketones (test code = UKET) TRACE NEGATIVE A Specific Rarden (test code = USPGR) 1.025 1.005-1.030 A Blood (test code = UBLD) NEGATIVE NEGATIVE N PH (test code = UPH) 6.0 4.5-8.0 A Protein (test code = UPROT) TRACE NEGATIVE A Urobilinogen (test code = U UROB) 0.2 See_Comment N [Automated messa ge] The system which generated this result transmitted reference range: 0.2. The reference range was not used to interpret this result as normal/abnormal. Nitrite (test code = UNITR) NEGATIVE NEGATIVE N Leukocyte Esterase (test code = ULEUK) NEGATIVE NEGATIVE N WBC (test code = WBCUR) 0-1 NONE,0-1,2-5,6-10 N RBC (test code = RBCUR) 0-1 0-5 A Epithial Cells (test code = U EPI) 3-5 0-10 A Mucous (test code = UMUC) None Seen None Seen N Bacteria (test code = UBACT) None Seen None Seen,Trace N Crystals Urine (test code = URCRYS) None Seen None Seen N Urine Casts (test code = UR CAST) None Seen None Seen N Urine Misc (test code = UR MISC) None Seen None Seen N STLMLACETONE SERUM - BHB (IN HOUSE)2023-07-17 21:01:00* Test Item Value Reference Range Interpretation Comme nts ACETONE QUANTITATIVE SERUM ( test code = ACESER) 3.22 mg/dl 0.20-2.81 H STLMLLACTIC ACID [id number] 20:48:00* Test Item Value Reference Range Interpretation Comme nts LACTATE (test code = LAC) 3.3 mmol/l 0.7-2.0 HH Critical values were called to Kathy Bernal RN by [id number] on 07/17/23 20:48 . Results were read back by Kathy Bernal RN.[id number] 20:43:00* Test Item Value Reference Range Interpretation Comme nts Lipase (test code = LIPA) 34 U/L 13-75 [id number] 20:43:00* Test Item Value Reference Range Interpretation Comme nts Magnesium (test code = MG) 1.9 mg/dl 1.6-2.6 [id number] 20:32:00* Test Item Value Reference Range Interpretation Comme nts Phosphorus (test code = PHOS) 3.8 mg/dl 2.5-4.5 [id number] 20:32:00* Test Item Value Reference Range Interpretation Comme nts Glucose (test code = GLU) 353 mg/dl 74-106 H BUN (test code = BUN) 12.0 mg/dl 7.0-18.0 Creatinine (test code = CREA) 0.7 mg/dl 0.5-1.3 Sodium (test code = NA) 137 mmol/l 137-145 Anion Gap (test code = GAP) 8 mmol/l 5-15 Potassium (test code = K) 5.0 mmol/l 3.5-5.1 Chloride (test code = CL) 106 mmol/l 98-107 CO2 (test code = CO2) 23 mmol/l 21-32 Calcium (test code = CALC) 9.2 mg/dl 8.5-10.1 T Protein (test code = TP) 7.8 gm/dl 6.4-8.2 Albumin (test code = ALB) 3.6 gm/dl 3.4-5.0 A/G Ratio (test code = AGRAT) 0.9 % 1.1-2.2 L AST (SGOT) (test code = AST) 49 U/L 15-37 H ALT (SGPT) (test code = ALT) 34 U/L 13-61 Alkaline Phos (test code = ALKP) 144 U/L 45-117 H Bilirubin, Total (test code = TBIL) 0.6 mg/dl 0.2-1.0 Globulin (test code = GLOBU) 4.2 gm/dl 2.3-3.5 H Calcium, Corrected (test code = CALCCORR) 9.5 mg/dl 8.4-10.2 Various formulas exist for corrected serum calcium results, each yielding different values. This corrected result was based on the formula: Corrected Calcium = SerumCalcium + [0.8 * ( 4 - SerumAlbumin)] Estimated Glomerular Filtration Rate (eGFR) (test code = EGFR) >60 As of 05/19/2022, reported eGFR is based on the CKD-EPI 2020 equation that does not use a race coefficient. STLMLPREGNANCY TEST, Urine [id number] 20:22:00* Test Item Value Reference Range Interpretation Comme nts (Urine) (test code = PREGU) Negative STLMLCBC WITH AUTO [id number] 20:15:00* Test Item Value Reference Range Interpretation Comme nts WBC (test code = WBC) 10.19 10\\S\\3/ul 4.80-10.80 RBC (test code = RBC) 5.60 10\\S\\6/ul 4.20-5.40 H Hemoglobin (test code = HGB) 15.5 gm/dl 12.0-14.0 H Hematocrit (test code = HCT) 44.7 % 37.0-47.0 MCV (test code = MCV) 79.8 fL 81.0-99.0 L MCH (test code = MCH) 27.7 pg 27.0-31.0 MCHC (test code = MCHC) 34.7 gm/dl 33.0-37.0 RDW (test code = RDWVC) 13.2 % 11.5-14.5 Platelet (test code = PLT) 329 10\\S\\3/ul 130-400 MPV (test code = MPV) 10.3 fL 7.4-10.4 A "NOT MEASURED" RESULTS ARE DISPLAYED WHEN THE INSTRUMENT HAS A SUPPRESSED OR UNREPORTABLE RESULT. THIS WILL MOST OFTEN HAPPEN WITH THE MPV WHEN THERE IS AN ABNORMAL PLATELET DISTRIBUTION DUE TO A CRITICAL LOW VALUE OR PLATELET CLUMPING. THE RDW MAY BE SUPPRESSED IF THERE ARE MULTIPLE PEAKS PRESENT ON THE RBC HISTOGRAM. IN THIS CASE, A MANUAL REVIEW OF THE SLIDE WILL BE PERFORMED, AND RBC MORPHOLOGY WILL BE NOTED ON THE REPORT. NE% (test code = NE) 54.8 % 42.0-75.0 LY% (test code = LY) 37.0 % 13.0-42.0 MO% (test code = MO) 6.6 % 4.0-14.0 EO% (test code = EO) 0.7 % 1.0-5.0 L BA% (test code = BA) 0.4 % 0.0-3.0 IG% (test code = IG%) 0.5 % 0.0-0.4 H [id number] 15:59:00* Test Item Value Reference Range Interpretation Comme nts SURGICAL (test code = SR) R UN DATE: 01/31/23 [facility] PAGE 1 RUN TIME: 1559 Specimen Inquiry RUN USER: INTERFACE P ATIENT: AMINTA NINO LOC: GENNA U #: [id number] AGE/SX: 32/ ROOM: [facility] RE11/15/22REG DR: Jak Herrera MD : 89 BED: A DIS: 01/18/23 STATUS: DIS IN TLOC: SPEC #: [id number] RECD: 01/17/23 STATUS: [facility] #: [id number] DELILAH: 01/15/23-2 [facility] DR: Jak Herrera MD ENTERED: 01/17/23 SP TYPE: SURGICAL OTHR DR: Self Referred Tad Jordan MD, Dean A MD Orzeck, Eric A MD Singhal, Meghali MDORDERED: ANATOMIC SPEC, SPEC TRACK, [id number] COPIES TO: Self Referred Jak Herrera MD [address] [facility] [address] [place] [address] [email or web address] [address] [place] [address] [place] [address] [place] [address] [email or web address] [address] [facility] [place] [address] [email or web address] Elías Garcia MD [address] [facility] [address] [place] [address] PROCEDURES: [id number] (01/17/23) TISSUES: A. PLACENTA, THIRD TRIMESTER (28 + WEEKS) CONTINUED ON NEXT PAGE R UN DATE: 01/31/23 [facility] PAGE 2 RUN TIME: 1559 Specimen Inquiry RUN USER: INTERFACE S PEC #: [id number] PATIENT: AMINTA NINO #[id number] (Continued) FINAL DIAGNOSIS PLACENTA, DELIVERY: Placental disc received in multiple fragments. Membranes - Focal mild meconium staining. Cotyledons - Consistent with gestational age. - Focal increased perivillous fibrin deposition and focal fibrotic villi. Umbilical cord - Three vessels. GROSS DESCRIPTION Fixative: FormalinLabeled: PlacentaSpecimen received: Multiple fragments of placenta, detached umbilical cord and fragmentsof membranesUmbilical cord: 20 cm in length and ranges in diameter from 0.9 to 1.2 cmUmbilical cord insertion: Cannot be determinedUmbilical cord appearance: Pale kong-white to blue-heller and smoothUmbilical cord: 2-3 coils per 10 cm length; 3 vesselsFetal membranes: Kong-heller, thin and minute amountMembrane attachment type: Cannot be determinedSite of membrane rupture: Cannot be determinedShape of disc: Disrupted into multiple fragmentsTrimmed weight: 217 gDimensions: 15.5 x 15.0 x 2.5 cm in aggregateFetal surface: Blue-heller, smooth and disrupted into multiple fragmentsMaternal surface: Ragged; Completeness cannot be determinedCut surface: Red-brown partially friable soft tissueLesions: None [employer] Dist[employer] sections submitted as follows: A1: umbilical cord and membrane roll A2-A4: Sections of disc MP 01/17/23 Technical component performed at [facility] [place] [id number] Immunohistochemical stains and Special Stains are performed at [facility], [address], [place] [address] Unless gross only, the diagnosis is based upon microscopic examination. Immunohistochemistry: This test was developed and its performance characteristicsdetermined by this laboratory. It has not been approved nor does it need approval by [facility]. Appropriate positive and negative controls are reviewed and judged to be CONTINUED ON NEXT PAGE R UN DATE: 01/31/23 [facility] PAGE 3 RUN TIME: 1559 Specimen Inquiry RUN USER: INTERFACE S PEC #: [id number] PATIENT: SHANNON NINOLY MAKENZIE #[id number] (Continued) GROSS DESCRIPTION (Continued) acceptable. This laboratory is certified under the Clinical Laboratory ImprovementAmendments (CLIA-88) as qualified to perform high complexity clinical laboratory testing. MICROSCOPIC DESCRIPTION Microscopic examination is performed and the findings are incorporated in the diagnosis. CLINICAL INFORMATION 01/15/2023, IUP @ 34.6 WKS, KIMBERLI, PRE-E, PM2. --- Signed _ Ar Stewart 01/31/23 1559 END OF REPORT [id number] 08:56:00* Test Item Value Reference Range Interpretation Comme nts SGOT/AST (test code = AST) 17 units/L 15-37 N [id number] 08:56:00* Test Item Value Reference Range Interpretation Comme nts SGPT/ALT (test code = ALT) 17 units/L 12-78 N CBC W/AUTO [id number] 07:45:00* Test Item Value Reference Range Interpretation Comme nts WHITE BLOOD CELL (test code = WBC) 8.8 K/mm3 6.5-12.3 N RED BLOOD CELL (test code = RBC) 3.71 M/mm3 3.51-4.69 N HEMOGLOBIN (test code = HGB) 10.3 g/dL 10.1-13.8 N HEMATOCRIT (test code = HCT) 30.8 % 32.5-41.8 L MEAN CELL VOLUME (test code = MCV) 83.0 fL 84.6-96.6 L MEAN CELL HGB (test code = MCH) 27.8 pg 27.3-33.9 N MEAN CELL HGB CONCETRATION ( test code = MCHC) 33.4 gm/dL 32.0-34.2 N RED CELL DISTRIBUTION WIDTH (test code = RDW) 14.4 % 12.2-16.3 N PLATELET COUNT (test code = PLT) 295 K/mm3 134-363 N MEAN PLATELET VOLUME (test c ode = MPV) 9.3 fL 9.2-12.7 N NEUTROPHIL % (test code = NT%) 58.5 % 57.9-77.3 N LYMPHOCYTE % (test code = LY%) 28.5 % 14.5-29.7 N MONOCYTE % (test code = MO%) 7.0 % 3.6-10.2 N EOSINOPHIL % (test code = EO%) 2.2 % 0.0-3.0 N BASOPHIL % (test code = BA%) 0.6 % 0.1-0.9 N NEUTROPHIL # (test code = NT#) 5.2 K/mm3 LYMPHOCYTE # (test code = LY#) 2.5 K/mm3 MONOCYTE # (test code = MO#) 0.6 K/mm3 EOSINOPHIL # (test code = EO#) 0.19 K/mm3 BASOPHIL # (test code = BA#) 0.1 K/mm3 RBC MORPHOLOGY REQUIRED (shey t code = RBCM) NORMAL NORMAL PLATELET MORPHOLOGY REQUIRED (test code = PLTMR) NORMAL NORMAL [id number] 06:15:00* Test Item Value Reference Range Interpretation Comme nts GLUBED (test code = GLUBED) 180 mg/dL 65-110 H [id number] 21:05:00* Test Item Value Reference Range Interpretation Comme nts GLUBED (test code = GLUBED) 287 mg/dL 65-110 H [id number] 13:38:00* Test Item Value Reference Range Interpretation Comme nts GLUBED (test code = GLUBED) 157 mg/dL 65-110 H CAPILLARY BLOOD [id number] 11:28:00* Test Item Value Reference Range Interpretation Comme nts CAPILLARY BLOOD GAS PH (test code = PHC) 7.245 7.35-7.45 L CAPILLARY BLOOD GAS PCO2 (te st code = PCO2C) 53.4 mmHg CAPILLARY BLOOD GAS PO2 (shey t code = PO2C) 20.7 mmHg CBG HCO3 (test code = HCO3C) 22.6 meq/L CBG BASE EXCESS (test code = BEC) -5.3 CAPILLARY BLOOD GAS TYPE (te st code = TYPEC) CBLA CAPILLARY BLOOD GAS DEL (shey t code = DELC) RA CAPILLARY BLOOD [id number] 11:25:00* Test Item Value Reference Range Interpretation Comme nts CAPILLARY BLOOD GAS PH (test code = PHC) 7.309 7.35-7.45 L CAPILLARY BLOOD GAS PCO2 (te st code = PCO2C) 42.3 mmHg CAPILLARY BLOOD GAS PO2 (shey t code = PO2C) 25.7 mmHg CBG HCO3 (test code = HCO3C) 20.8 meq/L CBG BASE EXCESS (test code = BEC) -5.3 CAPILLARY BLOOD GAS TYPE (te st code = TYPEC) CBLV CAPILLARY BLOOD GAS DEL (shey t code = DELC) RA [id number] 03:10:00* Test Item Value Reference Range Interpretation Comme nts GLUBED (test code = GLUBED) 146 mg/dL 65-110 H [id number] 00:43:00* Test Item Value Reference Range Interpretation Comme nts GLUBED (test code = GLUBED) 129 mg/dL 65-110 H [id number] 19:36:00* Test Item Value Reference Range Interpretation Comme nts GLUBED (test code = GLUBED) 108 mg/dL 65-110 N RUPTURE OF [id number] 15:05:00* Test Item Value Reference Range Interpretation Comme nts RUPTURE OF MEMBRANES (test c ode = ROM) RUPTURED [id number] 14:47:00* Test Item Value Reference Range Interpretation Comme nts GLUBED (test code = GLUBED) 106 mg/dL 65-110 N [id number] 09:41:00* Test Item Value Reference Range Interpretation Comme nts GLUBED (test code = GLUBED) 97 mg/dL 65-110 N [id number] 05:41:00* Test Item Value Reference Range Interpretation Comme nts GLUBED (test code = GLUBED) 68 mg/dL 65-110 N COMPREHENSIVE METABOLIC [id number] 19:41:00* Test Item Value Reference Range Interpretation Comme nts SODIUM (test code = NA) 137 mEq/L 135-145 N POTASSIUM (test code = K) 3.7 mEq/L 3.5-5.0 N CHLORIDE (test code = CL) 101 mEq/L 100-115 N CARBON DIOXIDE (test code = CO2) 22 mEq/L 22-31 N ANION GAP (test code = GAP) 17.40 10-20 N GLUCOSE (test code = GLU) 64 mg/dL 65-110 L BLOOD UREA NITROGEN (test code = BUN) 10 mg/dL 7-18 N GLOMERULAR FILTRATION RATE (test code = GFR) 136 ml/min >60 N The Glomerular Filtration Rate is a calculated parameterbased on serum Creatinine, patient age and sex. GFR valuesless than 60 mL/min/1.73 square meters are indicative ofChronic Kidney Disease. Values less than 15 mL/min/1.73square meters indicate Kidney failure. The calculation forGFR is based on the CKD-EPI (2020) calculation. This formulais race indifferent and is the recommended formula for GFRby the National Kidney Foundation for Adults.The GFR will not calculate if the sex is unknown or if thepatient's age is <18 years. CREATININE (test code = CREAT) 0.4 mg/dL 0.5-1.0 L TOTAL PROTEIN (test code = PROT) 7.3 gm/dL 6.3-8.2 N ALBUMIN (test code = ALB) 2.5 gm/dL 3.4-4.8 L CALCIUM (test code = CA) 9.2 mg/dL 8.4-10.2 N BILIRUBIN TOTAL (test code = BILT) 0.3 mg/dL 0.2-1.0 N SGOT/AST (test code = AST) 15 units/L 15-37 N SGPT/ALT (test code = ALT) 18 units/L 12-78 N ALKALINE PHOSPHATASE TOTAL (test code = ALKP) 107 units/L 46-116 N UR PROTEIN/CREATININE [id number] 19:10:00* Test Item Value Reference Range Interpretation Comme nts UR PROTEIN RANDOM (test code = PROTU) 55.0 mg/dL No reference range available UR CREATININE RANDOM (test code = CREATU) 90.2 mg/dL No referenc e range available PROTEIN/CREATININE RATIO (test code = P/CRATIO) 609.7 mg/gcrea <200 H CBC W/AUTO [id number] 18:50:00* Test Item Value Reference Range Interpretation Comme nts WHITE BLOOD CELL (test code = WBC) 12.3 K/mm3 6.5-12.3 N RED BLOOD CELL (test code = RBC) 4.20 M/mm3 3.51-4.69 N HEMOGLOBIN (test code = HGB) 11.5 g/dL 10.1-13.8 N HEMATOCRIT (test code = HCT) 34.4 % 32.5-41.8 N MEAN CELL VOLUME (test code = MCV) 81.9 fL 84.6-96.6 L MEAN CELL HGB (test code = MCH) 27.4 pg 27.3-33.9 N MEAN CELL HGB CONCETRATION ( test code = MCHC) 33.4 gm/dL 32.0-34.2 N RED CELL DISTRIBUTION WIDTH (test code = RDW) 14.2 % 12.2-16.3 N PLATELET COUNT (test code = PLT) 273 K/mm3 134-363 N MEAN PLATELET VOLUME (test c ode = MPV) 9.3 fL 9.2-12.7 N NEUTROPHIL % (test code = NT%) 67.0 % 57.9-77.3 N LYMPHOCYTE % (test code = LY%) 23.6 % 14.5-29.7 N MONOCYTE % (test code = MO%) 7.2 % 3.6-10.2 N EOSINOPHIL % (test code = EO%) 0.7 % 0.0-3.0 N BASOPHIL % (test code = BA%) 0.3 % 0.1-0.9 N NEUTROPHIL # (test code = NT#) 8.3 K/mm3 LYMPHOCYTE # (test code = LY#) 2.9 K/mm3 MONOCYTE # (test code = MO#) 0.9 K/mm3 EOSINOPHIL # (test code = EO#) 0.08 K/mm3 BASOPHIL # (test code = BA#) 0.0 K/mm3 RBC MORPHOLOGY REQUIRED (shey t code = RBCM) NORMAL NORMAL PLATELET MORPHOLOGY REQUIRED (test code = PLTMR) NORMAL NORMAL RUPTURE OF [id number] 01:04:00* Test Item Value Reference Range Interpretation Comme nts RUPTURE OF MEMBRANES (test c ode = ROM) NON-RUPTURED - US FET BIO PH FL W/O [id number] 17:48:00 [facility] 1990 Sex: F Patient Name: AMINTA NINO Unit No: [id number] EXAMS: CPT CODE: [id number] US FET BI O PH FL W/O NST [id number] 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 Exam: - US FET BIO PH FL W/O NST Technique: 2D grayscale, pulse wave and/or color Doppler evaluation were performed. Comparison: Prior exam(s) dated 11/13/2022 Findings: Evaluation is somewhat limited due to patient body habitus. Thefetus was scanned for a period of 30 minutes and biophysical profile scoring was performed as follows: breathing movements, score 2 out of 2. Gross body movements, score 2 out of 2. tone,score 2 out of 2. Quantitative amniotic fluid volume, score 2 out of 2. A total biophysical profilescore of 8 out of 8 is noted. The heart rate is 149 beats per minute. Amniotic fluid index is6.4 cm The cervix was not well-visualized and evaluated on this exam. The fetus is cephalic in presentation. The placenta is anterior in location. Impression: Biophysical profile score is 8 of 8. AFIis at the lower limits of normal, measuring 6.4 cm. Electronically Signed by Agatha George MD on01/07/2023 at 1748 Reported and signed by: Agatha George MD CC: Darron Santacruz MD; Jak Herrera MD; Tad Jordan MD Technologist: IRIS GARCIA RDMS Probe: Trnscrbd D/ (1748) t.[id number].[id number] Orig Print D/T: S: 01/07/2023 (1751) [facility] NAME: AMINTA NINO Radiology Department PHYS: Darron Santacruz MD [address] : 1990 AGE: 32 SEX: F [place] [address] LOC: [place]8 A PHONE #: [phone] EXAM DATE: 01/07/2023 STATUS: ADM IN FAX #: [phone] RAD NO: Page 1 Signed Report Patient Name: AMINTA NINO Unit No: [id number] EXAMS: CPT CODE: [id number] FET BIO PH FL W/O NST 09647 (Continued) [facility] NAME: AMINTA NINO MAKENZIE Radiology Department PHYS: Darron Santacruz MD [address] : 1990 AGE: 32 SEX: F [place] [address] LOC: [id number] A PHONE #: [phone] EXAM DATE: 01/07/2023 STATUS: ADM IN FAX #: [phone] RAD NO: Page 2 SignedReportUR PROTEIN/CREATININE [id number] 16:52:00* Test Item Value Reference Range Interpretation Comme nts UR PROTEIN RANDOM (test code = PROTU) 41.1 mg/dL No reference range available UR CREATININE RANDOM (test code = CREATU) 103.6 mg/dL No referenc e range available PROTEIN/CREATININE RATIO (test code = P/CRATIO) 396.7 mg/gcrea <200 H COMPREHENSIVE METABOLIC [id number] 14:38:00* Test Item Value Reference Range Interpretation Comme nts SODIUM (test code = NA) 138 mEq/L 135-145 N POTASSIUM (test code = K) 4.4 mEq/L 3.5-5.0 N CHLORIDE (test code = CL) 102 mEq/L 100-115 N CARBON DIOXIDE (test code = CO2) 24 mEq/L 22-31 N ANION GAP (test code = GAP) 16.80 10-20 N GLUCOSE (test code = GLU) 103 mg/dL 65-110 N BLOOD UREA NITROGEN (test code = BUN) 12 mg/dL 7-18 N CREATININE (test code = CREAT) 0.5 mg/dL 0.5-1.0 N TOTAL PROTEIN (test code = PROT) 6.7 gm/dL 6.3-8.2 N ALBUMIN (test code = ALB) 2.7 gm/dL 3.4-4.8 L CALCIUM (test code = CA) 8.9 mg/dL 8.4-10.2 N BILIRUBIN TOTAL (test code = BILT) 0.2 mg/dL 0.2-1.0 N SGOT/AST (test code = AST) 20 units/L 15-37 N SGPT/ALT (test code = ALT) 19 units/L 12-78 N ALKALINE PHOSPHATASE TOTAL (test code = ALKP) 99 units/L 46-116 N GLOMERULAR FILTRATION RATE (test code = GFR) 129 ml/min >60 N The Glomerular Filtration Rate is a calculated parameterbased on serum Creatinine, patient age and sex. GFR valuesless than 60 mL/min/1.73 square meters are indicative ofChronic Kidney Disease. Values less than 15 mL/min/1.73square meters indicate Kidney failure. The calculation forGFR is based on the CKD-EPI (202) calculation. This formulais race indifferent and is the recommended formula for GFRby the National Kidney Foundation for Adults.The GFR will not calculate if the sex is unknown or if thepatient's age is <18 years. CBC W/AUTO [id number] 14:18:00* Test Item Value Reference Range Interpretation Comme nts WHITE BLOOD CELL (test code = WBC) 12.8 K/mm3 6.5-12.3 H RED BLOOD CELL (test code = RBC) 4.32 M/mm3 3.51-4.69 N HEMOGLOBIN (test code = HGB) 11.9 g/dL 10.1-13.8 N HEMATOCRIT (test code = HCT) 34.5 % 32.5-41.8 N MEAN CELL VOLUME (test code = MCV) 79.9 fL 84.6-96.6 L MEAN CELL HGB (test code = MCH) 27.5 pg 27.3-33.9 N MEAN CELL HGB CONCETRATION ( test code = MCHC) 34.5 gm/dL 32.0-34.2 H RED CELL DISTRIBUTION WIDTH (test code = RDW) 14.5 % 12.2-16.3 N PLATELET COUNT (test code = PLT) 286 K/mm3 134-363 N MEAN PLATELET VOLUME (test c ode = MPV) 9.4 fL 9.2-12.7 N NEUTROPHIL % (test code = NT%) 69.6 % 57.9-77.3 N LYMPHOCYTE % (test code = LY%) 23.6 % 14.5-29.7 N MONOCYTE % (test code = MO%) 5.1 % 3.6-10.2 N EOSINOPHIL % (test code = EO%) 0.6 % 0.0-3.0 N BASOPHIL % (test code = BA%) 0.3 % 0.1-0.9 N NEUTROPHIL # (test code = NT#) 8.9 K/mm3 LYMPHOCYTE # (test code = LY#) 3.0 K/mm3 MONOCYTE # (test code = MO#) 0.7 K/mm3 EOSINOPHIL # (test code = EO#) 0.08 K/mm3 BASOPHIL # (test code = BA#) 0.0 K/mm3 RBC MORPHOLOGY REQUIRED (shey t code = RBCM) NORMAL NORMAL PLATELET MORPHOLOGY REQUIRED (test code = PLTMR) NORMAL NORMAL RUPTURE OF [id number] 21:42:00* Test Item Value Reference Range Interpretation Comme nts RUPTURE OF MEMBRANES (test c ode = ROM) NON-RUPTURED [id number] 05:12:00* Test Item Value Reference Range Interpretation Comme nts FRUCTOSAMINE (test code = FRUC) 180 umol/L 0-285 Published refere nce interval for apparently healthysubjects between age 20 and 60 is 205 - 285 umol/L and in apoorly controlled diabetic population is 228 - 563 umol/Lwith a mean of 396 umol/L.Performed At: [facility] [address] [id number] Chencho Montalvo MD Ph:[phone] [id number] 13:28:00* Test Item Value Reference Range Interpretation Comme nts GLUBED (test code = GLUBED) 72 mg/dL 65-110 N [id number] 10:55:00* Test Item Value Reference Range Interpretation Comme nts CREATININE (test code = CREAT) 0.6 mg/dL 0.5-1.0 N UR CREATININE CLEARANCE [id number] 10:45:00* Test Item Value Reference Range Interpretation Comme nts CREATININE CLEARANCE RESULT (test code = CREATCLR) 258 ml/min 70-120 H CREATININE (test code = CREAT) 0.4 mg/dL 0.5-1.0 L UR CREATININE RANDOM (test code = CREATU) 67.6 mg/dL No referenc e range available UR VOLUME (test code = VOL) 2200 ML UR PROTEIN [id number] 10:45:00* Test Item Value Reference Range Interpretation Comme nts UR PROTEIN RANDOM (test code = PROTU) 37.9 mg/dL No reference range available UR PROTEIN 24HR (test code = DDCP23F) 834 mg/24HR 20-150 HH RESULTS CALLED Janet GregoryREAD BACK & CONFIRMED? Y.BY F.LAB.KG 12/28/22 1044.Units for 24 HR Urine Protein have changed: New Units = MG/24HR COMPREHENSIVE METABOLIC [id number] 12:59:00* Test Item Value Reference Range Interpretation Comme nts SODIUM (test code = NA) 137 mEq/L 135-145 N POTASSIUM (test code = K) 4.5 mEq/L 3.5-5.0 N CHLORIDE (test code = CL) 102 mEq/L 100-115 N CARBON DIOXIDE (test code = CO2) 24 mEq/L 22-31 N ANION GAP (test code = GAP) 15.70 10-20 N GLUCOSE (test code = GLU) 139 mg/dL 65-110 H BLOOD UREA NITROGEN (test code = BUN) 11 mg/dL 7-18 N CREATININE (test code = CREAT) 0.4 mg/dL 0.5-1.0 L TOTAL PROTEIN (test code = PROT) 6.8 gm/dL 6.3-8.2 N ALBUMIN (test code = ALB) 2.6 gm/dL 3.4-4.8 L CALCIUM (test code = CA) 9.0 mg/dL 8.4-10.2 N BILIRUBIN TOTAL (test code = BILT) 0.2 mg/dL 0.2-1.0 N SGOT/AST (test code = AST) 15 units/L 15-37 N SGPT/ALT (test code = ALT) 18 units/L 12-78 N ALKALINE PHOSPHATASE TOTAL (test code = ALKP) 110 units/L 46-116 N GLOMERULAR FILTRATION RATE (test code = GFR) 136 ml/min >60 N The Glomerular Filtration Rate is a calculated parameterbased on serum Creatinine, patient age and sex. GFR valuesless than 60 mL/min/1.73 square meters are indicative ofChronic Kidney Disease. Values less than 15 mL/min/1.73square meters indicate Kidney failure. The calculation forGFR is based on the CKD-EPI (202) calculation. This formulais race indifferent and is the recommended formula for GFRby the National Kidney Foundation for Adults.The GFR will not calculate if the sex is unknown or if thepatient's age is <18 years. PROTHROMBIN [id number] 12:50:00* Test Item Value Reference Range Interpretation Comme nts PROTHROMBIN TIME PATIENT (te st code = PTP) 10.0 secs 9.8-13.3 N THROMBOPLASTIN TIME [id number] 12:50:00* Test Item Value Reference Range Interpretation Comme nts THROMBOPLASTIN TIME PARTIAL (test code = PTT) 29 secs 26.2-37.2 N CBC W/AUTO [id number] 12:39:00* Test Item Value Reference Range Interpretation Comme nts WHITE BLOOD CELL (test code = WBC) 12.4 K/mm3 6.5-12.3 H RED BLOOD CELL (test code = RBC) 4.50 M/mm3 3.51-4.69 N HEMOGLOBIN (test code = HGB) 12.3 g/dL 10.1-13.8 N HEMATOCRIT (test code = HCT) 36.1 % 32.5-41.8 N MEAN CELL VOLUME (test code = MCV) 80.2 fL 84.6-96.6 L MEAN CELL HGB (test code = MCH) 27.3 pg 27.3-33.9 N MEAN CELL HGB CONCETRATION ( test code = MCHC) 34.1 gm/dL 32.0-34.2 N RED CELL DISTRIBUTION WIDTH (test code = RDW) 14.1 % 12.2-16.3 N PLATELET COUNT (test code = PLT) 307 K/mm3 134-363 N MEAN PLATELET VOLUME (test c ode = MPV) 9.5 fL 9.2-12.7 N NEUTROPHIL % (test code = NT%) 64.4 % 57.9-77.3 N LYMPHOCYTE % (test code = LY%) 27.0 % 14.5-29.7 N MONOCYTE % (test code = MO%) 6.6 % 3.6-10.2 N EOSINOPHIL % (test code = EO%) 0.5 % 0.0-3.0 N BASOPHIL % (test code = BA%) 0.3 % 0.1-0.9 N NEUTROPHIL # (test code = NT#) 8.0 K/mm3 LYMPHOCYTE # (test code = LY#) 3.3 K/mm3 MONOCYTE # (test code = MO#) 0.8 K/mm3 EOSINOPHIL # (test code = EO#) 0.06 K/mm3 BASOPHIL # (test code = BA#) 0.0 K/mm3 RBC MORPHOLOGY REQUIRED (shey t code = RBCM) NORMAL NORMAL PLATELET MORPHOLOGY REQUIRED (test code = PLTMR) NORMAL NORMAL [id number] 14:42:00* Test Item Value Reference Range Interpretation Comme nts GLUBED (test code = GLUBED) 196 mg/dL 65-110 H [id number] 10:55:00* Test Item Value Reference Range Interpretation Comme nts GLUBED (test code = GLUBED) 120 mg/dL 65-110 H [id number] 06:08:00* Test Item Value Reference Range Interpretation Comme nts GLUBED (test code = GLUBED) 116 mg/dL 65-110 H [id number] 21:11:00* Test Item Value Reference Range Interpretation Comme nts GLUBED (test code = GLUBED) 168 mg/dL 65-110 H [id number] 14:39:00* Test Item Value Reference Range Interpretation Comme nts GLUBED (test code = GLUBED) 138 mg/dL 65-110 H [id number] 10:37:00* Test Item Value Reference Range Interpretation Comme nts GLUBED (test code = GLUBED) 80 mg/dL 65-110 N [id number] 06:05:00* Test Item Value Reference Range Interpretation Comme nts GLUBED (test code = GLUBED) 92 mg/dL 65-110 N [id number] 12:08:00* Test Item Value Reference Range Interpretation Comme nts FRUCTOSAMINE (test code = FRUC) 200 umol/L 0-285 Published refere nce interval for apparently healthysubjects between age 20 and 60 is 205 - 285 umol/L and in apoorly controlled diabetic population is 228 - 563 umol/Lwith a mean of 396 umol/L.Performed At: [facility] [address] [place], [place] [id number] Kyle L MD Ph:[phone] [id number] 10:16:00* Test Item Value Reference Range Interpretation Comme nts FRUCTOSAMINE (test code = FRUC) 217 umol/L 0-285 Published refere nce interval for apparently healthysubjects between age 20 and 60 is 205 - 285 umol/L and in apoorly controlled diabetic population is 228 - 563 umol/Lwith a mean of 396 umol/L.Performed At: [facility] [address] [place], [place] [id number] Montalvo MD Ph:[phone] [id number] 02:11:00* Test Item Value Reference Range Interpretation Comme nts GLUBED (test code = GLUBED) 313 mg/dL 65-110 H Phsician Notifie d CHLAMYDIA GC DNA BY [id number] 11:16:00* Test Item Value Reference Range Interpretation Comme nts C. TRACHOMATIS DNA BY PCR (test code = CHLAMTDNA) NOT DETECTED Not Detecte N. GONORRHOEAE DNA BY PCR (test code = NGONORDNA) NOT DETECTED Not Detecte TEST PERFORMED U SING THE [employer] ([employer]) GENEXPERT BY PCR.FALSE NEGATIVE RESULTS MAY OCCUR IF THE ORGANISM(S) ISPRESENT AT LEVELS BELOW THE ANALYTICAL LIMIT OD DETECTION.BECAUSE THE DETECTION OF CHLAMYDIA TRACHOMATIS AND NEISSERIA GONORRHOEAE IS DEPENDENT ON THE DNA PRESENT INTHE SAMPLE, RELIABLE RESULTS ARE DEPENDENT ON PROPER SAMPLECOLLECTION, HANDLING, AND STORAGE. [id number] 06:13:00* Test Item Value Reference Range Interpretation Comme nts GLUBED (test code = GLUBED) 243 mg/dL 65-110 H [id number] 20:53:00* Test Item Value Reference Range Interpretation Comme nts GLUBED (test code = GLUBED) 249 mg/dL 65-110 H [id number] 15:22:00* Test Item Value Reference Range Interpretation Comme nts GLUBED (test code = GLUBED) 153 mg/dL 65-110 H [id number] 06:27:00* Test Item Value Reference Range Interpretation Comme nts GLUBED (test code = GLUBED) 212 mg/dL 65-110 H [id number] 21:01:00* Test Item Value Reference Range Interpretation Comme nts GLUBED (test code = GLUBED) 232 mg/dL 65-110 H [id number] 14:55:00* Test Item Value Reference Range Interpretation Comme nts GLUBED (test code = GLUBED) 178 mg/dL 65-110 H [id number] 05:27:00* Test Item Value Reference Range Interpretation Comme nts GLUBED (test code = GLUBED) 223 mg/dL 65-110 H [id number] 22:43:00* Test Item Value Reference Range Interpretation Comme nts GLUBED (test code = GLUBED) 213 mg/dL 65-110 H TOTAL IRON BINDING [id number] 19:59:00* Test Item Value Reference Range Interpretation Comme nts SERUM IRON (test code = IRON) 129 MCG/DL 37-170 TOTAL IRON BINDING CAPACITY (test code = TIBC) 634 MCG/DL 265-497 H IRON SATURATION (test code = FESAT) 20 % 12-57 (Hit ENTER to Con't) .[id number] 19:59:00* Test Item Value Reference Range Interpretation Comme nts FERRITIN (test code = BILLIE) 63.3 NG/ML 6.24-137 (Hit ENTER to Con't) .[id number] 19:59:00* Test Item Value Reference Range Interpretation Comme nts FERRITIN (test code = BILLIE) 63.3 NG/ML 6.24-137 N (Hit ENTER to Con't) .FE W/TOTAL IRON BINDING [id number] 19:24:00* Test Item Value Reference Range Interpretation Comme nts SERUM IRON (test code = IRON) 129 MCG/DL 37-170 N TOTAL IRON BINDING CAPACITY (test code = TIBC) 634 MCG/DL 265-497 H IRON SATURATION (test code = FESAT) 20 % 12-57 N (Hit ENTER to Con't) .[id number] 15:06:00* Test Item Value Reference Range Interpretation Comme nts GLUBED (test code = GLUBED) 198 mg/dL 65-110 H RUBELLA [id number] 14:51:00* Test Item Value Reference Range Interpretation Comme nts RUBELLA SCREEN (test code = RUBSC) 8.2 IUnit/ml Samples with a value >= 5.0 IUnits/mL and <=9.9 IUnits/mL are considered equivocal for IgG antibodies to rubella virus. Obtain a new specimen and retest. B-TYPE NATRIURETIC [id number] 14:41:00* Test Item Value Reference Range Interpretation Comme nts B-TYPE NATRIURETIC PEPTIDE ( test code = BNP) 0.38 pg/mL 0-100 N THYROID STIMULATING [id number] 14:39:00* Test Item Value Reference Range Interpretation Comme nts THYROID STIMULATING HORMONE (test code = TSH) 2.13 0.36-3.74 N Test Performed i n [employer] Units/mL [id number] 06:26:00* Test Item Value Reference Range Interpretation Comme nts GLUBED (test code = GLUBED) 156 mg/dL 65-110 H UR PROTEIN/CREATININE [id number] 17:22:00* Test Item Value Reference Range Interpretation Comme nts UR PROTEIN RANDOM (test code = PROTU) 30.4 mg/dL No reference range available UR CREATININE RANDOM (test code = CREATU) 135.6 mg/dL No referenc e range available PROTEIN/CREATININE RATIO (test code = P/CRATIO) 224.1 mg/gcrea <200 H UA RFLX MICR CULT IF [id number] 16:13:00* Test Item Value Reference Range Interpretation Comme nts UA COLOR (test code = COLU) YELLOW YELLOW UA APPEARANCE (test code = APPU) CLEAR CLEAR UA GLUCOSE DIPSTICK (test co de = DGLUU) NEGATIVE NEG UA BILIRUBIN DIPSTICK (test code = BILU) NEGATIVE NEG UA KETONE DIPSTICK (test cod e = KETU) NEGATIVE NEG UA SPECIFIC GRAVITY (test co de = SGU) 1.023 1.001-1.035 N UA BLOOD DIPSTICK (test code = NICOLÁS) NEG NEG UA PH DIPSTICK (test code = JEB) 6.0 5-9 UA PROTEIN DIPSTICK (test co de = PROU) NEGATIVE NEG UA UROBILINIOGEN DIPSTICK (test code = URO) NEGATIVE mg/dL NEG UA NITRITE DIPSTICK (test co de = UGO) NEG NEG UA LEUKOCYTE ESTERASE DIPSTI CK (test code = LEUU) NEG NEG UA WBC (test code = WBCU) 3-5 #/hpf NONE SEEN A UA RBC (test code = RBCU) 0-2 #/hpf NONE SEEN UA EPITHELIAL CELLS (test co de = EPIU) RARE #/HPF RARE-FEW UA BACTERIA (test code = BACU) RARE /HPF RARE-FEW UA MUCUS (test code = MUCU) RARE NONE SEEN Indication for culture: Dysuria/FrequencySpecimen Description: CLEAN CATCH COMPREHENSIVE METABOLIC [id number] 16:08:00* Test Item Value Reference Range Interpretation Comme nts SODIUM (test code = NA) 135 mEq/L 135-145 N POTASSIUM (test code = K) 4.3 mEq/L 3.5-5.0 N CHLORIDE (test code = CL) 100 mEq/L 100-115 N CARBON DIOXIDE (test code = CO2) 24 mEq/L 22-31 N ANION GAP (test code = GAP) 15.50 10-20 N GLUCOSE (test code = GLU) 169 mg/dL 65-110 H BLOOD UREA NITROGEN (test code = BUN) 13 mg/dL 7-18 N CREATININE (test code = CREAT) 0.5 mg/dL 0.5-1.0 N TOTAL PROTEIN (test code = PROT) 6.9 gm/dL 6.3-8.2 N ALBUMIN (test code = ALB) 2.7 gm/dL 3.4-4.8 L CALCIUM (test code = CA) 9.3 mg/dL 8.4-10.2 N BILIRUBIN TOTAL (test code = BILT) 0.3 mg/dL 0.2-1.0 N SGOT/AST (test code = AST) 15 units/L 15-37 N SGPT/ALT (test code = ALT) 18 units/L 12-78 N ALKALINE PHOSPHATASE TOTAL (test code = ALKP) 104 units/L 46-116 N GLOMERULAR FILTRATION RATE (test code = GFR) 129 ml/min >60 N The Glomerular Filtration Rate is a calculated parameterbased on serum Creatinine, patient age and sex. GFR valuesless than 60 mL/min/1.73 square meters are indicative ofChronic Kidney Disease. Values less than 15 mL/min/1.73square meters indicate Kidney failure. The calculation forGFR is based on the CKD-EPI (202) calculation. This formulais race indifferent and is the recommended formula for GFRby the National Kidney Foundation for Adults.The GFR will not calculate if the sex is unknown or if thepatient's age is <18 years. CBC W/AUTO [id number] 15:09:00* Test Item Value Reference Range Interpretation Comme nts WHITE BLOOD CELL (test code = WBC) 14.5 K/mm3 6.5-12.3 H RED BLOOD CELL (test code = RBC) 4.77 M/mm3 3.51-4.69 H HEMOGLOBIN (test code = HGB) 13.2 g/dL 10.1-13.8 N HEMATOCRIT (test code = HCT) 37.8 % 32.5-41.8 N MEAN CELL VOLUME (test code = MCV) 79.2 fL 84.6-96.6 L MEAN CELL HGB (test code = MCH) 27.7 pg 27.3-33.9 N MEAN CELL HGB CONCETRATION ( test code = MCHC) 34.9 gm/dL 32.0-34.2 H RED CELL DISTRIBUTION WIDTH (test code = RDW) 13.5 % 12.2-16.3 N PLATELET COUNT (test code = PLT) 305 K/mm3 134-363 N MEAN PLATELET VOLUME (test c ode = MPV) 10.1 fL 9.2-12.7 N NEUTROPHIL % (test code = NT%) 70.7 % 57.9-77.3 N LYMPHOCYTE % (test code = LY%) 22.8 % 14.5-29.7 N MONOCYTE % (test code = MO%) 5.2 % 3.6-10.2 N EOSINOPHIL % (test code = EO%) 0.4 % 0.0-3.0 N BASOPHIL % (test code = BA%) 0.3 % 0.1-0.9 N NEUTROPHIL # (test code = NT#) 10.2 K/mm3 LYMPHOCYTE # (test code = LY#) 3.3 K/mm3 MONOCYTE # (test code = MO#) 0.8 K/mm3 EOSINOPHIL # (test code = EO#) 0.06 K/mm3 BASOPHIL # (test code = BA#) 0.0 K/mm3 RBC MORPHOLOGY REQUIRED (shey t code = RBCM) NORMAL NORMAL PLATELET MORPHOLOGY REQUIRED (test code = PLTMR) NORMAL NORMAL [id number] 08:58:00* Test Item Value Reference Range Interpretation Comme nts GLUBED (test code = GLUBED) 125 mg/dL 65-110 H [id number] 00:09:00* Test Item Value Reference Range Interpretation Comme nts GLUBED (test code = GLUBED) 99 mg/dL 65-110 N [id number] 21:10:00* Test Item Value Reference Range Interpretation Comme nts GLUBED (test code = GLUBED) 251 mg/dL 65-110 H Phsician Notifie d [id number] 15:42:00* Test Item Value Reference Range Interpretation Comme nts GLUBED (test code = GLUBED) 163 mg/dL 65-110 H [id number] 12:05:00* Test Item Value Reference Range Interpretation Comme nts GLUBED (test code = GLUBED) 196 mg/dL 65-110 H [id number] 20:44:00* Test Item Value Reference Range Interpretation Comme nts GLUBED (test code = GLUBED) 162 mg/dL 65-110 H [id number] 15:08:00* Test Item Value Reference Range Interpretation Comme nts GLUBED (test code = GLUBED) 96 mg/dL 65-110 N [id number] 06:10:00* Test Item Value Reference Range Interpretation Comme nts GLUBED (test code = GLUBED) 133 mg/dL 65-110 H [id number] 20:09:00* Test Item Value Reference Range Interpretation Comme nts GLUBED (test code = GLUBED) 228 mg/dL 65-110 H [id number] 15:13:00* Test Item Value Reference Range Interpretation Comme nts C-PEPTIDE (test code = CPEP) 1.5 ng/mL 1.1-4.4 C-Peptide refere nce interval is for fasting patients.Performed At: [address] [id number] Montalvo MD Ph:[phone] [id number] 14:58:00* Test Item Value Reference Range Interpretation Comme nts GLUBED (test code = GLUBED) 124 mg/dL 65-110 H [id number] 10:14:00* Test Item Value Reference Range Interpretation Comme nts FRUCTOSAMINE (test code = FRUC) 198 umol/L 0-285 Published refere nce interval for apparently healthysubjects between age 20 and 60 is 205 - 285 umol/L and in apoorly controlled diabetic population is 228 - 563 umol/Lwith a mean of 396 umol/L.Performed At: [address] [id number] Montalvo MD Ph:[phone] [id number] 10:14:00* Test Item Value Reference Range Interpretation Comme nts INSULIN (test code = INS) 37.3 uIU/mL 2.6-24.9 H Performed At: [address] [id number] Montalvo MD Ph:[phone] [id number] 06:54:00* Test Item Value Reference Range Interpretation Comme nts GLUBED (test code = GLUBED) 138 mg/dL 65-110 H [id number] 21:30:00* Test Item Value Reference Range Interpretation Comme nts GLUBED (test code = GLUBED) 175 mg/dL 65-110 H [id number] 15:05:00* Test Item Value Reference Range Interpretation Comme nts GLUBED (test code = GLUBED) 155 mg/dL 65-110 H [id number] 11:08:00* Test Item Value Reference Range Interpretation Comme nts GLUBED (test code = GLUBED) 90 mg/dL 65-110 N [id number] 06:38:00* Test Item Value Reference Range Interpretation Comme nts GLUBED (test code = GLUBED) 175 mg/dL 65-110 H UR CREATININE CLEARANCE [id number] 00:38:00* Test Item Value Reference Range Interpretation Comme nts CREATININE CLEARANCE RESULT (test code = CREATCLR) 164 ml/min 70-120 H CREATININE (test code = CREAT) 0.6 mg/dL 0.5-1.0 N UR CREATININE RANDOM (test c ode = CREATU) 54.7 mg/dL UR VOLUME (test code = VOL) 2600 ML UR PROTEIN [id number] 00:38:00* Test Item Value Reference Range Interpretation Comme nts UR PROTEIN RANDOM (test code = PROTU) 21.3 mg/dL UR PROTEIN 24HR (test code = BKTQ13I) 554 mg/24HR 20-150 HH RESULTS CALLED Janet MICHELLE.READ BACK & CONFIRMED? YES.BY F.LAB.[email or web address] 11/18/22 0037.Units for 24 HR Urine Protein have changed: New Units = MG/24HR UR PROTEIN/CREATININE [id number] 23:35:00* Test Item Value Reference Range Interpretation Comme nts UR PROTEIN RANDOM (test code = PROTU) 21.3 mg/dL UR CREATININE RANDOM (test code = CREATU) 54.7 mg/dL PROTEIN/CREATININE RATIO (te st code = P/CRATIO) 389.3 mg/gcrea <200 H [id number] 22:32:00* Test Item Value Reference Range Interpretation Comme nts GLUBED (test code = GLUBED) 186 mg/dL 65-110 H [id number] 19:15:00* Test Item Value Reference Range Interpretation Comme nts GLUBED (test code = GLUBED) 259 mg/dL 65-110 H [id number] 16:59:00* Test Item Value Reference Range Interpretation Comme nts GLUBED (test code = GLUBED) 191 mg/dL 65-110 H [id number] 15:49:00* Test Item Value Reference Range Interpretation Comme nts GLUBED (test code = GLUBED) 234 mg/dL 65-110 H [id number] 12:03:00* Test Item Value Reference Range Interpretation Comme nts GLUBED (test code = GLUBED) 185 mg/dL 65-110 H [id number] 06:41:00* Test Item Value Reference Range Interpretation Comme nts GLUBED (test code = GLUBED) 291 mg/dL 65-110 H Feed, repeat 1 h r [id number] 19:32:00* Test Item Value Reference Range Interpretation Comme nts GLUBED (test code = GLUBED) 277 mg/dL 65-110 H [id number] 15:47:00* Test Item Value Reference Range Interpretation Comme nts GLUBED (test code = GLUBED) 247 mg/dL 65-110 H COMPREHENSIVE METABOLIC [id number] 13:04:00* Test Item Value Reference Range Interpretation Comme nts SODIUM (test code = NA) 132 mEq/L 135-145 L POTASSIUM (test code = K) 4.1 mEq/L 3.5-5.0 N CHLORIDE (test code = CL) 101 mEq/L 100-115 N CARBON DIOXIDE (test code = CO2) 17 mEq/L 22-31 L ANION GAP (test code = GAP) 18.00 10-20 N GLUCOSE (test code = GLU) 236 mg/dL 65-110 H BLOOD UREA NITROGEN (test code = BUN) 13 mg/dL 7-18 GLOMERULAR FILTRATION RATE (test code = GFR) 124 ml/min >60 N The Glomerular Filtration Rate is a calculated parameterbased on serum Creatinine, patient age and sex. GFR valuesless than 60 mL/min/1.73 square meters are indicative ofChronic Kidney Disease. Values less than 15 mL/min/1.73square meters indicate Kidney failure. The calculation forGFR is based on the CKD-EPI (2020) calculation. This formulais race indifferent and is the recommended formula for GFRby the National Kidney Foundation for Adults.The GFR will not calculate if the sex is unknown or if thepatient's age is <18 years. CREATININE (test code = CREAT) 0.6 mg/dL 0.5-1.0 N TOTAL PROTEIN (test code = PROT) 7.1 gm/dL 6.3-8.2 N ALBUMIN (test code = ALB) 2.9 gm/dL 3.4-4.8 L CALCIUM (test code = CA) 9.2 mg/dL 8.4-10.2 N BILIRUBIN TOTAL (test code = BILT) 0.4 mg/dL 0.2-1.0 N SGOT/AST (test code = AST) 13 units/L 15-37 L SGPT/ALT (test code = ALT) 15 units/L 12-78 N ALKALINE PHOSPHATASE TOTAL (test code = ALKP) 99 units/L 46-116 N [id number] 12:24:00* Test Item Value Reference Range Interpretation Comme nts GLUBED (test code = GLUBED) 222 mg/dL 65-110 H CBC W/AUTO [id number] 12:23:00* Test Item Value Reference Range Interpretation Comme nts WHITE BLOOD CELL (test code = WBC) 14.4 K/mm3 6.5-12.3 H RED BLOOD CELL (test code = RBC) 4.47 M/mm3 3.51-4.69 N HEMOGLOBIN (test code = HGB) 12.1 g/dL 10.1-13.8 N HEMATOCRIT (test code = HCT) 35.8 % 32.5-41.8 N MEAN CELL VOLUME (test code = MCV) 80.1 fL 84.6-96.6 L MEAN CELL HGB (test code = MCH) 27.1 pg 27.3-33.9 L MEAN CELL HGB CONCETRATION ( test code = MCHC) 33.8 gm/dL 32.0-34.2 N RED CELL DISTRIBUTION WIDTH (test code = RDW) 13.7 % 12.2-16.3 N PLATELET COUNT (test code = PLT) 339 K/mm3 134-363 N MEAN PLATELET VOLUME (test c ode = MPV) 10.1 fL 9.2-12.7 N NEUTROPHIL % (test code = NT%) 82.2 % 57.9-77.3 H LYMPHOCYTE % (test code = LY%) 12.8 % 14.5-29.7 L MONOCYTE % (test code = MO%) 3.1 % 3.6-10.2 L EOSINOPHIL % (test code = EO%) 0.3 % 0.0-3.0 N BASOPHIL % (test code = BA%) 0.2 % 0.1-0.9 N NEUTROPHIL # (test code = NT#) 11.8 K/mm3 LYMPHOCYTE # (test code = LY#) 1.8 K/mm3 MONOCYTE # (test code = MO#) 0.4 K/mm3 EOSINOPHIL # (test code = EO#) 0.04 K/mm3 BASOPHIL # (test code = BA#) 0.0 K/mm3 RBC MORPHOLOGY REQUIRED (shey t code = RBCM) NORMAL NORMAL PLATELET MORPHOLOGY REQUIRED (test code = PLTMR) ABNORMAL NORMAL PLT CLUMPS UR PROTEIN/CREATININE [id number] 11:47:00* Test Item Value Reference Range Interpretation Comme nts UR PROTEIN RANDOM (test code = PROTU) 36.1 mg/dL UR CREATININE RANDOM (test code = CREATU) 57.7 mg/dL PROTEIN/CREATININE RATIO (te st code = P/CRATIO) 625.6 mg/gcrea <200 H [id number] 10:40:00* Test Item Value Reference Range Interpretation Comme nts GLUBED (test code = GLUBED) 198 mg/dL 65-110 H [id number] 03:06:00* Test Item Value Reference Range Interpretation Comme nts GLUBED (test code = GLUBED) 188 mg/dL 65-110 H [id number] 22:45:00* Test Item Value Reference Range Interpretation Comme nts GLUBED (test code = GLUBED) 258 mg/dL 65-110 H Feed, repeat 1 h r AG HEPATITIS B [id number] 18:27:00* Test Item Value Reference Range Interpretation Comme nts AG HEPATITIS B SURFACE (test code = HBSAG) NONREACTIVE NONREACTIVE AB HEPATITIS C [id number] 18:27:00* Test Item Value Reference Range Interpretation Comme nts AB HEPATITIS C (test code = HCVAB) NONREACTIVE NONREACTIVE SIGNAL TO CUTOFF (test code = CUTOFF) 0.04 <0.80 N AB [id number] 18:27:00* Test Item Value Reference Range Interpretation Comme nts AB TREPONEMA (test code = TREPAB) NONREACTIVE NONREACTIVE AB HIV 1 18:27:00* Test Item Value Reference Range Interpretation Comme nts AB HIV 1 2 (test code = [id number]) NONREACTIVE NONREACTIVE Done by [employer] 4th Gen HIV Ag/Ab Combo Screen UR PROTEIN/CREATININE [id number] 17:55:00* Test Item Value Reference Range Interpretation Comme nts UR PROTEIN RANDOM (test code = PROTU) 13.9 mg/dL UR CREATININE RANDOM (test code = CREATU) 37.6 mg/dL PROTEIN/CREATININE RATIO (te st code = P/CRATIO) 369.6 mg/gcrea <200 H [id number] 17:41:00* Test Item Value Reference Range Interpretation Comme nts GLUBED (test code = GLUBED) 136 mg/dL 65-110 H COMPREHENSIVE METABOLIC [id number] 17:33:00* Test Item Value Reference Range Interpretation Comme nts SODIUM (test code = NA) 136 mEq/L 135-145 N POTASSIUM (test code = K) 4.2 mEq/L 3.5-5.0 N CHLORIDE (test code = CL) 102 mEq/L 100-115 N CARBON DIOXIDE (test code = CO2) 21 mEq/L 22-31 L ANION GAP (test code = GAP) 17.40 10-20 N GLUCOSE (test code = GLU) 120 mg/dL 65-110 H BLOOD UREA NITROGEN (test code = BUN) 7 mg/dL 7-18 N CREATININE (test code = CREAT) 0.4 mg/dL 0.5-1.0 L TOTAL PROTEIN (test code = PROT) 7.0 gm/dL 6.3-8.2 N ALBUMIN (test code = ALB) 2.8 gm/dL 3.4-4.8 L CALCIUM (test code = CA) 8.8 mg/dL 8.4-10.2 N BILIRUBIN TOTAL (test code = BILT) 0.4 mg/dL 0.2-1.0 N SGOT/AST (test code = AST) 17 units/L 15-37 N SGPT/ALT (test code = ALT) 17 units/L 12-78 N ALKALINE PHOSPHATASE TOTAL (test code = ALKP) 96 units/L 46-116 N GLOMERULAR FILTRATION RATE (test code = GFR) 136 ml/min >60 N The Glomerular Filtration Rate is a calculated parameterbased on serum Creatinine, patient age and sex. GFR valuesless than 60 mL/min/1.73 square meters are indicative ofChronic Kidney Disease. Values less than 15 mL/min/1.73square meters indicate Kidney failure. The calculation forGFR is based on the CKD-EPI (202) calculation. This formulais race indifferent and is the recommended formula for GFRby the National Kidney Foundation for Adults.The GFR will not calculate if the sex is unknown or if thepatient's age is <18 years. CBC W/AUTO [id number] 17:14:00* Test Item Value Reference Range Interpretation Comme nts WHITE BLOOD CELL (test code = WBC) 12.0 K/mm3 6.5-12.3 N RED BLOOD CELL (test code = RBC) 4.51 M/mm3 3.51-4.69 N HEMOGLOBIN (test code = HGB) 12.1 g/dL 10.1-13.8 N HEMATOCRIT (test code = HCT) 35.6 % 32.5-41.8 N MEAN CELL VOLUME (test code = MCV) 78.9 fL 84.6-96.6 L MEAN CELL HGB (test code = MCH) 26.8 pg 27.3-33.9 L MEAN CELL HGB CONCETRATION ( test code = MCHC) 34.0 gm/dL 32.0-34.2 N RED CELL DISTRIBUTION WIDTH (test code = RDW) 13.6 % 12.2-16.3 N PLATELET COUNT (test code = PLT) 325 K/mm3 134-363 N MEAN PLATELET VOLUME (test c ode = MPV) 9.3 fL 9.2-12.7 N NEUTROPHIL % (test code = NT%) 82.9 % 57.9-77.3 H LYMPHOCYTE % (test code = LY%) 13.1 % 14.5-29.7 L MONOCYTE % (test code = MO%) 2.5 % 3.6-10.2 L EOSINOPHIL % (test code = EO%) 0.2 % 0.0-3.0 N BASOPHIL % (test code = BA%) 0.3 % 0.1-0.9 N NEUTROPHIL # (test code = NT#) 10.0 K/mm3 LYMPHOCYTE # (test code = LY#) 1.6 K/mm3 MONOCYTE # (test code = MO#) 0.3 K/mm3 EOSINOPHIL # (test code = EO#) 0.02 K/mm3 BASOPHIL # (test code = BA#) 0.0 K/mm3 RBC MORPHOLOGY REQUIRED (shey t code = RBCM) NORMAL NORMAL PLATELET MORPHOLOGY REQUIRED (test code = PLTMR) NORMAL NORMAL GLUCOSE BEDSIDE [id number] 13:48:00* Test Item Value Reference Range Interpretation Comme nts GLUCOSE BEDSIDE TESTING (shey t code = GLUBED) 98 MG/DL 70-119 N URIC [id number] 12:39:00* Test Item Value Reference Range Interpretation Comme nts URIC ACID (test code = URIC) 3.3 MG/DL 2.5-6.2 N Results maybe de pressed if patient is taking Metamizole(Dipyrone). LACTIC DEHYDROGENASE(LDH)2022-11-15 12:34:00* Test Item Value Reference Range Interpretation Comme nts LACTIC DEHYDROGENASE(LDH) (t est code = LDH) 204 Unit/L 84-246 N GLUCOSE BEDSIDE [id number] 08:12:00* Test Item Value Reference Range Interpretation Comme nts GLUCOSE BEDSIDE TESTING (shey t code = GLUBED) 80 MG/DL 70-119 N COMPREHENSIVE METABOLIC [id number] 05:58:00* Test Item Value Reference Range Interpretation Comme nts SODIUM (test code = NA) 138.0 mmol/L 133-144 N POTASSIUM (test code = K) 3.6 mmol/L 3.5-5.1 N CHLORIDE (test code = CL) 108 mmol/L 95-105 H CARBON DIOXIDE (test code = CO2) 22 mmol/L 21-32 N ANION GAP (test code = GAP) 8.0 GAP calc 4.0-15.0 N GLUCOSE (test code = GLU) 89 MG/DL 70-110 N BLOOD UREA NITROGEN (test code = BUN) 8 MG/DL 7-18 N GLOMERULAR FILTRATION RATE (test code = GFR) 141 estGFR >60 The Glomerular Filtration Rate is a calculated parameterbased on serum Creatinine, patient age and sex. GFR valuesless than 60 mL/min/1.73 square meters are indicative ofChronic Kidney Disease. Values less than 15 mL/min/1.73square meters indicate Kidney failure. The calculation forGFR is based on the CKD-EPI (202) calculation. This formulais race indifferent and is the recommended formula for GFRby the National Kidney Foundation for Adults.The GFR will not calculate if the sex is unknown or if thepatient's age is <18 years. CREATININE (test code = CREAT) 0.35 MG/DL 0.55-1.30 L Results may be depressed if patient is takingN-Acetylcystein e (NAC) and Metamizole (Dipyrone). TOTAL PROTEIN (test code = PROT) 6.6 G/DL 6.4-8.2 N ALBUMIN (test code = ALB) 2.4 G/DL 3.4-5.0 L ALBUMIN/GLOBULIN RATIO (test code = A/G) 0.6 RATIO 1.2-2.2 L CALCIUM (test code = CA) 8.7 MG/DL 8.5-10.1 N BILIRUBIN TOTAL (test code = BILT) 0.23 MG/DL 0.00-1.00 N BILIRUBIN DIRECT (test code = BILD) < 0.10 MG/DL 0.00-0.30 N BILIRUBIN INDIRECT (test code = BILIND) CALC GERALD MG/DL 0.2-1.3 L SGOT/AST (test code = AST) 11 Unit/L 15-37 L SGPT/ALT (test code = ALT) 15 Unit/L 12-78 N ALKALINE PHOSPHATASE TOTAL (test code = ALKP) 77 Unit/L 45-117 N INDEX HEMOLYSIS (test code = HEMINDEX) 1 NORMAL <10 MG Index/DL See_Comment [Automated message] The system which generated this result transmitted reference range: 1 NORMAL. The reference range was not used to interpret this result as normal/abnormal. INDEX ICTERIC (test code = ICTINDEX) 1 NORMAL <2 MG Index/DL See_Comment [Automated message] The system which generated this result transmitted reference range: 1 NORMAL. The reference range was not used to interpret this result as normal/abnormal. INDEX LIPEMIA (test code = LIPINDEX) 1 NORMAL <50 MG Index/DL See_Comment [Automated message] The system which generated this result transmitted reference range: 1 NORMAL. The reference range was not used to interpret this result as normal/abnormal. [id number] 05:58:00* Test Item Value Reference Range Interpretation Comme nts MAGNESIUM (test code = MAG) 1.7 MG/DL 1.6-2.6 N CBC W/AUTO [id number] 05:32:00* Test Item Value Reference Range Interpretation Comme nts WHITE BLOOD CELL (test code = WBC) 11.0 K/mm3 4.1-12.1 N RED BLOOD CELL (test code = RBC) 4.05 M/mm3 3.8-5.5 N HEMOGLOBIN (test code = HGB) 10.9 G/DL 10.6-15.8 N HEMATOCRIT (test code = HCT) 32.1 % 31.8-47.4 N MEAN CELL VOLUME (test code = MCV) 79.3 fL 80.1-101.1 L MEAN CELL HGB (test code = MCH) 26.9 pg 25.3-35.3 N MEAN CELL HGB CONCETRATION ( test code = MCHC) 34.0 G/DL 32.7-35.1 N RED CELL DISTRIBUTION WIDTH (test code = RDW) 13.8 % 12.2-16.4 N RED CELL DISTRIBUTION WIDTH (test code = RDW-SD) 39.1 fL 36.4-46.3 N PLATELET COUNT (test code = PLT) 252 K/mm3 155-337 N MEAN PLATELET VOLUME (test c ode = MPV) 9.3 fL 6.8-11.2 N GRANULOCYTE % (test code = GR%) 63.8 % 37.8-82.6 N IMMATURE GRANULOCYTE % (test code = IG%) 1.2 % 0.0-2.0 N LYMPHOCYTE % (test code = LY%) 26.8 % 14.1-45.4 N MONOCYTE % (test code = MO%) 7.2 % 2.5-11.7 N EOSINOPHIL % (test code = EO%) 0.7 % 0.0-6.2 N BASOPHIL % (test code = BA%) 0.3 % 0.0-2.1 N NUCLEATED RBC % (test code = NRBC%) 0.0 /100WBC% 0.0-1.0 N GRANULOCYTE # (test code = GR#) 7.05 k/mm3 2.0-13.7 N IMMATURE GRANULOCYTE # (test code = IG#) 0.13 K/mm3 0.00-0.03 H LYMPHOCYTE # (test code = LY#) 2.96 K/mm3 0.6-3.8 N MONOCYTE # (test code = MO#) 0.79 K/mm3 0.11-0.59 H EOSINOPHIL # (test code = EO#) 0.08 K/mm3 0.0-0.4 N BASOPHIL # (test code = BA#) 0.03 K/mm3 0.0-0.1 N NUCLEATED RBC # (test code = NRBC#) 0.00 K/mm3 0.0-0.05 N UR PROTEIN [id number] 00:58:00* Test Item Value Reference Range Interpretation Comme nts UR PROTEIN RANDOM (test code = PROTU) 26.9 MG/DL 0.0-12.0 H UR PROTEIN [id number] 00:58:00* Test Item Value Reference Range Interpretation Comme nts UR PROTEIN 24HR (test code = TVPM13M) 619 MG/24HR 0-149 H UR [id number] 00:58:00* Test Item Value Reference Range Interpretation Comme nts UR VOLUME (test code = VOL) 2300 ML 800-2400 N - XR CHEST 1 [id number] 00:00:00 [facility] 1990 Sex: F Patient Name: AMINTA NINO Unit No: [id number] EXAMS: CPT CODE: [id number] XR CHEST1 V 15010 PROCEDURE INFORMATION: Exam: XR Chest Exam date and time: 11/15/2022 5:12 PM Age: 32 years old Clinical indication: Shortness of breath; Patient HX: 26 weeks ; Additional info: Pneumonia and pulmonary edema TECHNIQUE: Imaging protocol: Radiologic exam of the chest. Views: 1 view. COMPARISON: DX XR CHEST 1V 11/13/2022 2:03 PM FINDINGS: Lungs: Lungs are mildly under expanded. Pulmonary vascular congestion is present. No confluent pulmonary opacification present. Pleural spaces: No visible pneumothorax or pleural effusion. Heart/Mediastinum: Cardiomediastinal silhouette is upper limits normal size. Bones/joints: No acute bony finding. IMPRESSION: Shallow inspiration with pulmonary vascular congestion. Mild edema could be present. No confluent pulmonary infiltrates. at 1744 Reported and signed by: Michelet Franz MD CC: Jak Herrera MD; Tad Jordan MD; Martín Terry MD Technologist: Charles Okeefe, RT, CT Trnscrbd D/ (1744) GCD.CPS Orig Print D/T: S: 11/15/2022 (1745) [facility] NAME: MICASHANNONAMINTABLAISE BANEGAS Radiology Department PHYS: Martín Matamoros [address] : 1990 AGE: 32 SEX: F [place], [place] [address] LOC: Glo.[id number] A PHONE#: [phone] EXAM DATE: 11/15/2022 STATUS: ADM IN FAX #: [phone] RAD NO: Page 1 Signed ReportGLUCOSE BEDSIDE [id number] 21:20:00* Test Item Value Reference Range Interpretation Comme nts GLUCOSE BEDSIDE TESTING (shey t code = GLUBED) 98 MG/DL 70-119 N GLUCOSE BEDSIDE [id number] 15:37:00* Test Item Value Reference Range Interpretation Comme nts GLUCOSE BEDSIDE TESTING (shey t code = GLUBED) 222 MG/DL 70-119 H GLUCOSE BEDSIDE [id number] 11:28:00* Test Item Value Reference Range Interpretation Comme nts GLUCOSE BEDSIDE TESTING (shey t code = GLUBED) 238 MG/DL 70-119 H GLUCOSE BEDSIDE [id number] 07:28:00* Test Item Value Reference Range Interpretation Comme nts GLUCOSE BEDSIDE TESTING (shey t code = GLUBED) 178 MG/DL 70-119 H COMPREHENSIVE METABOLIC [id number] 06:01:00* Test Item Value Reference Range Interpretation Comme nts SODIUM (test code = NA) 134.0 mmol/L 133-144 N POTASSIUM (test code = K) 3.7 mmol/L 3.5-5.1 N CHLORIDE (test code = CL) 108 mmol/L 95-105 H CARBON DIOXIDE (test code = CO2) 20 mmol/L 21-32 L ANION GAP (test code = GAP) 6.0 GAP calc 4.0-15.0 N GLUCOSE (test code = GLU) 200 MG/DL 70-110 H BLOOD UREA NITROGEN (test code = BUN) 11 MG/DL 7-18 N GLOMERULAR FILTRATION RATE (test code = GFR) 135 estGFR >60 The Glomerular Filtration Rate is a calculated parameterbased on serum Creatinine, patient age and sex. GFR valuesless than 60 mL/min/1.73 square meters are indicative ofChronic Kidney Disease. Values less than 15 mL/min/1.73square meters indicate Kidney failure. The calculation forGFR is based on the CKD-EPI (2020) calculation. This formulais race indifferent and is the recommended formula for GFRby the National Kidney Foundation for Adults.The GFR will not calculate if the sex is unknown or if thepatient's age is <18 years. CREATININE (test code = CREAT) 0.42 MG/DL 0.55-1.30 L Results may be depressed if patient is takingN-Acetylcystein e (NAC) and Metamizole (Dipyrone). TOTAL PROTEIN (test code = PROT) 6.3 G/DL 6.4-8.2 L ALBUMIN (test code = ALB) 2.3 G/DL 3.4-5.0 L ALBUMIN/GLOBULIN RATIO (test code = A/G) 0.6 RATIO 1.2-2.2 L CALCIUM (test code = CA) 8.4 MG/DL 8.5-10.1 L BILIRUBIN TOTAL (test code = BILT) < 0.10 MG/DL 0.00-1.00 N BILIRUBIN DIRECT (test code = BILD) < 0.10 MG/DL 0.00-0.30 N BILIRUBIN INDIRECT (test code = BILIND) 0.10 MG/DL 0.2-1.3 L SGOT/AST (test code = AST) 10 Unit/L 15-37 L SGPT/ALT (test code = ALT) 14 Unit/L 12-78 N ALKALINE PHOSPHATASE TOTAL (test code = ALKP) 72 Unit/L 45-117 N INDEX HEMOLYSIS (test code = HEMINDEX) 1 NORMAL <10 MG Index/DL See_Comment [Automated message] The system which generated this result transmitted reference range: 1 NORMAL. The reference range was not used to interpret this result as normal/abnormal. INDEX ICTERIC (test code = ICTINDEX) 1 NORMAL <2 MG Index/DL See_Comment [Automated message] The system which generated this result transmitted reference range: 1 NORMAL. The reference range was not used to interpret this result as normal/abnormal. INDEX LIPEMIA (test code = LIPINDEX) 1 NORMAL <50 MG Index/DL See_Comment [Automated message] The system which generated this result transmitted reference range: 1 NORMAL. The reference range was not used to interpret this result as normal/abnormal. CBC W/AUTO [id number] 05:44:00* Test Item Value Reference Range Interpretation Comme nts WHITE BLOOD CELL (test code = WBC) 10.3 K/mm3 4.1-12.1 N RED BLOOD CELL (test code = RBC) 3.72 M/mm3 3.8-5.5 L HEMOGLOBIN (test code = HGB) 9.9 G/DL 10.6-15.8 L HEMATOCRIT (test code = HCT) 29.8 % 31.8-47.4 L MEAN CELL VOLUME (test code = MCV) 80.1 fL 80.1-101.1 N MEAN CELL HGB (test code = MCH) 26.6 pg 25.3-35.3 N MEAN CELL HGB CONCETRATION ( test code = MCHC) 33.2 G/DL 32.7-35.1 N RED CELL DISTRIBUTION WIDTH (test code = RDW) 13.7 % 12.2-16.4 N RED CELL DISTRIBUTION WIDTH (test code = RDW-SD) 39.0 fL 36.4-46.3 N PLATELET COUNT (test code = PLT) 230 K/mm3 155-337 N MEAN PLATELET VOLUME (test c ode = MPV) 9.6 fL 6.8-11.2 N GRANULOCYTE % (test code = GR%) 60.0 % 37.8-82.6 N IMMATURE GRANULOCYTE % (test code = IG%) 1.0 % 0.0-2.0 N LYMPHOCYTE % (test code = LY%) 31.0 % 14.1-45.4 N MONOCYTE % (test code = MO%) 6.8 % 2.5-11.7 N EOSINOPHIL % (test code = EO%) 1.0 % 0.0-6.2 N BASOPHIL % (test code = BA%) 0.2 % 0.0-2.1 N NUCLEATED RBC % (test code = NRBC%) 0.0 /100WBC% 0.0-1.0 N GRANULOCYTE # (test code = GR#) 6.17 k/mm3 2.0-13.7 N IMMATURE GRANULOCYTE # (test code = IG#) 0.10 K/mm3 0.00-0.03 H LYMPHOCYTE # (test code = LY#) 3.19 K/mm3 0.6-3.8 N MONOCYTE # (test code = MO#) 0.70 K/mm3 0.11-0.59 H EOSINOPHIL # (test code = EO#) 0.10 K/mm3 0.0-0.4 N BASOPHIL # (test code = BA#) 0.02 K/mm3 0.0-0.1 N NUCLEATED RBC # (test code = NRBC#) 0.00 K/mm3 0.0-0.05 N GLUCOSE BEDSIDE [id number] 20:17:00* Test Item Value Reference Range Interpretation Comme nts GLUCOSE BEDSIDE TESTING (shey t code = GLUBED) 224 MG/DL 70-119 H UR PROTEIN/CREATININE [id number] 19:58:00* Test Item Value Reference Range Interpretation Comme nts UR PROTEIN RANDOM (test code = PROTU) 39.2 MG/DL 0.0-12.0 H UR CREATININE RANDOM (test c ode = CREATU) 89.4 MG/DL 30-150 N PROTEIN/CREATININE RATIO (te st code = P/CRATIO) 438.0 MG/GRAM 0.0-200.0 H GLYCOSYLATED HEMOGLOBIN (HA1C)2022-11-13 19:57:00* Test Item Value Reference Range Interpretation Comme nts GLYCOSYLATED HEMOGLOBIN (HA1 C) (test code = GLYHGB) 6.6 % IS-A1C 4.5-5.6 H GLUCOSE BEDSIDE [id number] 17:32:00* Test Item Value Reference Range Interpretation Comme nts GLUCOSE BEDSIDE TESTING (test code = GLUBED) 229 MG/DL 70-119 H Notified Nu rse~ - US FET BIO PH FL W/O [id number] 16:18:00 [facility] 1990 Sex: F Patient Name: AMINTA NINO Unit No: [id number] EXAMS: CPT CODE: [id number] US FET BIO PHPR W/O NST 98179 EXAM: - US FET BIO PH FL W/O NST HISTORY: well being 25.6 weeks LOCATION: T18 TECHNIQUE: Real-time sonography was performed for 15 minutes. Transabdominal pelvic ultrasound for biophysical profile and limited assessment was performed. COMPARISON: None available time of interpretation. FINDINGS: There is a single living intrauterine fetus in vertex presentation. heartbeats were seen at a rate of 150 beats per minute. Biophysical profile score is 8 out of 8 based on the following: breathing 2 movement 2 tone 2 Amniotic fluid 2 Amniotic fluid index: 7.45 cm Single deepest pocket: 2.64 Cervical length: 3.7 cm Placenta location: Anterior IMPRESSION: 1. Viable fetus with heart rate of 150 bpm. 2. Biophysical profile score is 8 out of 8. 3.MATHEUS lower normal at 7.45 at 1618 Reported and signed by: Misha Forman MD CC: Ronnell Davalos MD; Tad Jordan MD Technologist: Thu Malloy Trnscrbd D/ (2512) [id number] Probe: Orig Print D/T: S: 11/13/2022 (1595) Pro[facility]: [facility] NAME: AMINTA NINO [address] PHYS: Ronnell Abbasi MD [place], [place] [address] : 1990 AGE: 32 SEX: F LOC: ARELIS Miranda PHONE #: [phone] EXAM DATE: 11/13/2022 STATUS: ADM IN FAX #: [phone] RAD NO: Page 1 Signed ReportB-TYPE NATRIURETIC [id number] 15:31:00* Test Item Value Reference Range Interpretation Comme nts B-TYPE NATRIURETIC PEPTIDE (test code = BNP) < 30.00 PG/ML 0.00-100.00 N TROP-I HIGH [id number] 15:24:00* Test Item Value Reference Range Interpretation Comme nts TROP-I HIGH SENSITIVITY (test code = TROPIHS) < 4 ng/L 0-45 N CAUTION: Units of the current test methodology (ng/L) differfrom the prior test methodology (ng/mL) by a factor of 1000. 99th Percentile Upper Reference Limit (URL): Females: 54 ng/LMales: 78 ng/L In order to distinguish acute elevations of high sensitivitytroponin from other clinical conditions, the FourthUniversal Definition of Myocardial Infarction stressesclinical assessment and the demonstration of a rise and/orfall in serial troponin results above the URL. Results from different methodologies should not be comparedto one another as quantitative results and URLs may vary bymethod. BASIC METABOLIC [id number] 15:20:00* Test Item Value Reference Range Interpretation Comme nts SODIUM (test code = NA) 137.0 mmol/L 133-144 N POTASSIUM (test code = K) 3.7 mmol/L 3.5-5.1 N CHLORIDE (test code = CL) 109 mmol/L 95-105 H CARBON DIOXIDE (test code = CO2) 20 mmol/L 21-32 L ANION GAP (test code = GAP) 8.0 GAP calc 4.0-15.0 N GLUCOSE (test code = GLU) 274 MG/DL 70-110 H BLOOD UREA NITROGEN (test code = BUN) 13 MG/DL 7-18 N GLOMERULAR FILTRATION RATE (test code = GFR) 124 estGFR >60 The Glomerular Filtration Rate is a calculated parameterbased on serum Creatinine, patient age and sex. GFR valuesless than 60 mL/min/1.73 square meters are indicative ofChronic Kidney Disease. Values less than 15 mL/min/1.73square meters indicate Kidney failure. The calculation forGFR is based on the CKD-EPI (202) calculation. This formulais race indifferent and is the recommended formula for GFRby the National Kidney Foundation for Adults.The GFR will not calculate if the sex is unknown or if thepatient's age is <18 years. CREATININE (test code = CREAT) 0.59 MG/DL 0.55-1.30 N Results may be depressed if patient is takingN-Acetylcysteine (NAC) and Metamizole (Dipyrone). CALCIUM (test code = CA) 8.2 MG/DL 8.5-10.1 L INDEX HEMOLYSIS (test code = HEMINDEX) 1 NORMAL <10 MG Index/DL See_Comment [Automated message] The system which generated this result transmitted reference range: 1 NORMAL. The reference range was not used to interpret this result as normal/abnormal. INDEX ICTERIC (test code = ICTINDEX) 1 NORMAL <2 MG Index/DL See_Comment [Automated message] The system which generated this result transmitted reference range: 1 NORMAL. The reference range was not used to interpret this result as normal/abnormal. INDEX LIPEMIA (test code = LIPINDEX) 1 NORMAL <50 MG Index/DL See_Comment [Automated message] The system which generated this result transmitted reference range: 1 NORMAL. The reference range was not used to interpret this result as normal/abnormal. [id number] 15:17:00* Test Item Value Reference Range Interpretation Comme [facility] D-DIMER (test code = DDIMER) 295 FEUng/mL 0-500 N THE CUT-OFF VALU E FOR EXCLUSION OF VTE = 500 FEU ng/mLNOTE: This method must be used with additional tests in theevaluation of VTE and should not be used to exclude VTE withpretest probability alone. VENOUS BLOOD GAS [id number] 15:12:00* Test Item Value Reference Range Interpretation Comme [facility] VENOUS BLOOD GAS PH (test co de = PHV) 7.41 pH units 7.32-7.42 N VENOUS BLOOD GAS [id number] 15:12:00* Test Item Value Reference Range Interpretation Comme [facility] VENOUS BLOOD GAS PCO2 (test code = PCO2V) 31 mmHg 41-51 L VENOUS BLOOD GAS [id number] 15:12:00* Test Item Value Reference Range Interpretation Comme [facility] VENOUS BLOOD GAS PO2 (test c ode = PO2V) 70 mmHg 25-40 H VBG [id number] 15:12:00* Test Item Value Reference Range Interpretation Comme [facility] VBG HCO3 (test code = HCO3V) 19.7 mmol/L 24-28 L VENOUS BLOOD GAS [id number] 15:12:00* Test Item Value Reference Range Interpretation Comme [facility] VENOUS BLOOD GAS SITE (test code = SITEV) Venous Site DESCRIPTION CBC W/O [id number] 15:09:00* Test Item Value Reference Range Interpretation Comme [facility] WHITE BLOOD CELL (test code = WBC) 10.1 K/mm3 4.1-12.1 N RED BLOOD CELL (test code = RBC) 3.82 M/mm3 3.8-5.5 N HEMOGLOBIN (test code = HGB) 10.4 G/DL 10.6-15.8 L HEMATOCRIT (test code = HCT) 30.8 % 31.8-47.4 L MEAN CELL VOLUME (test code = MCV) 80.6 fL 80.1-101.1 N MEAN CELL HGB (test code = MCH) 27.2 pg 25.3-35.3 N MEAN CELL HGB CONCETRATION ( test code = MCHC) 33.8 G/DL 32.7-35.1 N RED CELL DISTRIBUTION WIDTH (test code = RDW) 13.8 % 12.2-16.4 N PLATELET COUNT (test code = PLT) 264 K/mm3 155-337 N MEAN PLATELET VOLUME (test c ode = MPV) 9.6 fL 6.8-11.2 N COVID 19 INHOUSE [id number] 15:06:00* Test Item Value Reference Range Interpretation Comme nts COVID 19 INHOUSE AG (test co de = [id number]) Negative Neg UA RFLX MICR CULT IF [id number] 14:52:00* Test Item Value Reference Range Interpretation Comme nts UA COLOR (test code = COLU) LIGHT-YELLOW DESCRIPT YELLOW UA APPEARANCE (test code = APPU) CLEAR DESCRIPT CLEAR UA GLUCOSE DIPSTICK (test code = DGLUU) OVER >1000 (4+) mg/dL See_Comment A [Automated message] The system which generated this result transmitted reference range: 0 (NORMAL). The reference range was not used to interpret this result as normal/abnormal. UA BILIRUBIN DIPSTICK (test code = BILU) NEGATIVE (0.0) mg/dL See_Comment [Automated message] The system which generated this result transmitted reference range: (NEG) 0. The reference range was not used to interpret this result as normal/abnormal. UA KETONE DIPSTICK (test code = KETU) 20 (1+) mg/dL See_Comment A [Automated message] The system which generated this result transmitted reference range: (NEG) 0. The reference range was not used to interpret this result as normal/abnormal. UA SPECIFIC GRAVITY (test code = SGU) 1.030 SG 1.001-1.035 UA BLOOD DIPSTICK (test code = NICOLÁS) NEGATIVE (0.00) mg/dL See_Comment [Automated message] The system which generated this result transmitted reference range: 0 (NEG). The reference range was not used to interpret this result as normal/abnormal. UA PH DIPSTICK (test code = JEB) 6.5 pH UNITS 4.6-8.0 UA PROTEIN DIPSTICK (test code = PROU) 20 (TRACE) mg/dL See_Comment A [Automated message] The system which generated this result transmitted reference range: (NEG) <30. The reference range was not used to interpret this result as normal/abnormal. UA UROBILINIOGEN DIPSTICK (test code = URO) NORMAL (0) mg/Dl See_Comment [Automated message] The system which generated this result transmitted reference range: (NORM)<2.0. The reference range was not used to interpret this result as normal/abnormal. UA NITRITE DIPSTICK (test code = UGO) NEGATIVE (0) SCREEN NEG UA LEUKOCYTE ESTERASE DIPSTICK (test code = LEUU) NEGATIVE (0) Leuk/mcL See_Comment [Automated message] The system which generated this result transmitted reference range: (NEG) 0. The reference range was not used to interpret this result as normal/abnormal. UA COMMENT (test code = COMU) SPECIMEN COMMENT NoteSPEC SpecComment UA WBC (test code = WBCU) 0-3 #WBC/HPF 0-3 UA RBC (test code = RBCU) 0-3 #RBC/HPF 0-3 UA BACTERIA (test code = BACU) FEW >1 /HPF NONE-FEW UA SQUAMOUS CELLS (test code = SQU) FEW >2 /UL NONE-SQepi UA MUCUS (test code = MUCU) RARE /LPF NONE UA CULTURE NEEDED? (test code = UACULT) Crit NOTmet CULT-N/A Criteria Cult byW Indication for culture: Dysuria/FrequencyUA DESCRIPTION: BLADDER- XR CHEST 1 V 2022-11-13 14:17:00 [facility] 1990 Sex: F FAX: Giovana Davies APRN [place]: [address]: REG FAX: Tad Ramos MD [phone] Patient Name: AMINTA NINO Unit No: [id number] EXAMS: CPT CODE: [id number] XR CHEST 1 V 22843 Location: EXAM: - XR CHEST 1 V DATE: 11/13/2022 1:41 PM HISTORY: Shortness of breath COMPARISON: None FINDINGS: No airspace consolidation or pleural effusions. No pneumothorax. Diffuse interstitial opacities in both lungs. The cardiovascular silhouette is within normal limits. No bony lesions. IMPRESSION: Diffuse interstitial opacities in both lungs due to pulmonary edema versus pneumonia. Electronically Signed by Monse Aviles 11/13/2022 at 1417 Reported and signed by: Monse Lockhart MD CC: Giovana Davies; Tad Davis MD Dictated Date/Time: 11/13/2022 (1417)Technologist: Bryan Vaz Transcribed Date/Time: 11/13/2022 (141) By: [facility]LOVEL[facility] [place] Orig Print D/T: S: 11/13/2022 (6075) ADAMARIS Andrade NAME: SHANNON NINO[address] PHYS: CAMRA01 - Giovana Davies, [place] [address] : 1990 AGE: 32 SEX: F LOC: [place] PHONE #: [phone] EXAM DATE: 11/13/2022 STATUS: REG ER FAX #: [phone] RAD NO: DC Dt: PAGE 1 Signed ReportBETA [facility] [place] [id number] 23:43:00* Test Item Value Reference Range Interpretation Comme nts BHCG II (test code = BHCGII) 29189.0 mIU/L 0.0-4.8 H A NEW EXPANDED M ETHOD FOR BHCG WILL BE INTRODUCED ON OCTOBER 21, 2006. THE DYNAMIC RANGE OF THE TEST HAS BEEN INCREASED ALLOWING FOR FEWER DILUTUIONS, AND THE GESTATION WEEKS HAVE BEEN AGGREGATED TO ALLOW FOR EASE OF INTREPRETATION. PLEASE REFER TO THE INTERPRETATION TABLE BELOW. Beta hCG levels in non- individuals = <4.83 IU/L GESTATIONAL AGE: 1-10 weeks 63.70 - 716938.00 IU/L 11-15 weeks 43019.00 - 410276.00 IU/L 16-22 weeks 9383.80 - 88286.00 IU/L 23-40 weeks 1737.20 - 66828.00 IU/L Detection of very Low Levels of hCG does not exclude . Repeat testing after 48 Hrs. is recommended. THIS ASSAY SHOULD NOT BE USED TO DIAGNOSE ANY CONDITION UNRELATED TO . [id number] 23:27:00* Test Item Value Reference Range Interpretation Comme nts Rh (test code = RH) Positive Weak D (Du) (test code = DU) N/A [id number] 23:27:00* Test Item Value Reference Range Interpretation Comme nts ABO Blood Type (test code = ABO) A STLMLPREGNANCY TEST, Serum [id number] 23:14:00* Test Item Value Reference Range Interpretation Comme nts (Serum) (test code = PREGS) Positive Negative A STLMLCBC WITH AUTO [id number] 23:02:00* Test Item Value Reference Range Interpretation Comme nts WBC (test code = WBC) 13.42 10\\S\\3/ul 4.80-10.80 H RBC (test code = RBC) 4.44 10\\S\\6/ul 4.20-5.40 Hemoglobin (test code = HGB) 12.0 gm/dl 12.0-14.0 Hematocrit (test code = HCT) 35.8 % 37.0-47.0 L MCV (test code = MCV) 80.6 fL 81.0-99.0 L MCH (test code = MCH) 27.0 pg 27.0-31.0 MCHC (test code = MCHC) 33.5 gm/dl 33.0-37.0 RDW (test code = RDWVC) 13.1 % 11.5-14.5 Platelet (test code = PLT) 335 10\\S\\3/ul 130-400 MPV (test code = MPV) 9.1 fL 7.4-10.4 A NE% (test code = NE) 63.1 % 42.0-75.0 LY% (test code = LY) 27.4 % 13.0-42.0 MO% (test code = MO) 7.2 % 4.0-14.0 EO% (test code = EO) 0.6 % 1.0-5.0 L BA% (test code = BA) 0.4 % 0.0-3.0 IG% (test code = IG%) 1.3 % 0.0-0.4 H STLMLURINALYSIS WITH REFLEX TO [id number] 22:51:00* Test Item Value Reference Range Interpretation Comme nts Color (test code = UCOLR) Yellow Clarity (test code = UCLAR) Clear Glucose (test code = UGLUC) 100 NEGATIVE A Bilirubin (test code = UBILI) NEGATIVE NEGATIVE N Ketones (test code = UKET) NEGATIVE NEGATIVE N Specific Rarden (test code = USPGR) 1.010 1.005-1.030 A Blood (test code = UBLD) NEGATIVE NEGATIVE N PH (test code = UPH) 7.0 4.5-8.0 A Protein (test code = UPROT) NEGATIVE NEGATIVE N Urobilinogen (test code = U UROB) 2.0 See_Comment A [Automated AUPEO!a ge] The system which generated this result transmitted reference range: 0.2. The reference range was not used to interpret this result as normal/abnormal. Nitrite (test code = UNITR) NEGATIVE NEGATIVE N Leukocyte Esterase (test code = ULEUK) NEGATIVE NEGATIVE N WBC (test code = WBCUR) 0-2 NONE,0-1,2-5,6-10 AA RBC (test code = RBCUR) 0-1 0-5 A Epithial Cells (test code = U EPI) 10-20 0-10 A Mucous (test code = UMUC) None Seen None Seen N Bacteria (test code = UBACT) None Seen None Seen,Trace N Crystals Urine (test code = URCRYS) None Seen None Seen N Urine Casts (test code = UR CAST) None Seen None Seen N Urine Misc (test code = UR MISC) None Seen None Seen N STLMLGLUCOSE BEDSIDE [id number] 08:05:00* Test Item Value Reference Range Interpretation Comme nts GLUCOSE BEDSIDE TESTING (shey t code = GLUBED) 126 MG/DL 70-119 H GLUCOSE BEDSIDE [id number] 20:34:00* Test Item Value Reference Range Interpretation Comme nts GLUCOSE BEDSIDE TESTING (shey t code = GLUBED) 163 MG/DL 70-119 H GLUCOSE BEDSIDE [id number] 15:27:00* Test Item Value Reference Range Interpretation Comme nts GLUCOSE BEDSIDE TESTING (shey t code = GLUBED) 174 MG/DL 70-119 H GLUCOSE BEDSIDE [id number] 11:20:00* Test Item Value Reference Range Interpretation Comme nts GLUCOSE BEDSIDE TESTING (shey t code = GLUBED) 115 MG/DL 70-119 N GLUCOSE BEDSIDE [id number] 07:50:00* Test Item Value Reference Range Interpretation Comme nts GLUCOSE BEDSIDE TESTING (shey t code = GLUBED) 88 MG/DL 70-119 N GLUCOSE BEDSIDE [id number] 00:15:00* Test Item Value Reference Range Interpretation Comme nts GLUCOSE BEDSIDE TESTING (shey t code = GLUBED) 182 MG/DL 70-119 H GLUCOSE BEDSIDE [id number] 20:50:00* Test Item Value Reference Range Interpretation Comme nts GLUCOSE BEDSIDE TESTING (shey t code = GLUBED) 320 MG/DL 70-119 H COMPREHENSIVE METABOLIC [id number] 18:58:00* Test Item Value Reference Range Interpretation Comme nts SODIUM (test code = NA) 138.0 mmol/L 133-144 N POTASSIUM (test code = K) 3.8 mmol/L 3.5-5.1 N CHLORIDE (test code = CL) 104 mmol/L 95-105 N CARBON DIOXIDE (test code = CO2) 24 mmol/L 21-32 N ANION GAP (test code = GAP) 10.0 GAP calc 4.0-15.0 N GLUCOSE (test code = GLU) 309 MG/DL 70-110 H BLOOD UREA NITROGEN (test code = BUN) 12 MG/DL 7-18 N GLOMERULAR FILTRATION RATE (test code = GFR) 122 estGFR >60 The Glomerular Filtration Rate is a calculated parameterbased on serum Creatinine, patient age and sex. GFR valuesless than 60 mL/min/1.73 square meters are indicative ofChronic Kidney Disease. Values less than 15 mL/min/1.73square meters indicate Kidney failure. The calculation forGFR is based on the CKD-EPI (202) calculation. This formulais race indifferent and is the recommended formula for GFRby the National Kidney Foundation for Adults.The GFR will not calculate if the sex is unknown or if thepatient's age is <18 years. CREATININE (test code = CREAT) 0.64 MG/DL 0.55-1.30 N Results may be depressed if patient is takingN-Acetylcystein e (NAC) and Metamizole (Dipyrone). TOTAL PROTEIN (test code = PROT) 7.8 G/DL 6.4-8.2 N ALBUMIN (test code = ALB) 3.1 G/DL 3.4-5.0 L ALBUMIN/GLOBULIN RATIO (test code = A/G) 0.7 RATIO 1.2-2.2 L CALCIUM (test code = CA) 8.9 MG/DL 8.5-10.1 N BILIRUBIN TOTAL (test code = BILT) 0.40 MG/DL 0.00-1.00 N BILIRUBIN DIRECT (test code = BILD) < 0.10 MG/DL 0.00-0.30 N BILIRUBIN INDIRECT (test code = BILIND) 0.40 MG/DL 0.2-1.3 N SGOT/AST (test code = AST) 13 Unit/L 15-37 L SGPT/ALT (test code = ALT) 22 Unit/L 12-78 N ALKALINE PHOSPHATASE TOTAL (test code = ALKP) 92 Unit/L 45-117 N INDEX HEMOLYSIS (test code = HEMINDEX) 1 NORMAL <10 MG Index/DL See_Comment [Automated message] The system which generated this result transmitted reference range: 1 NORMAL. The reference range was not used to interpret this result as normal/abnormal. INDEX ICTERIC (test code = ICTINDEX) 1 NORMAL <2 MG Index/DL See_Comment [Automated message] The system which generated this result transmitted reference range: 1 NORMAL. The reference range was not used to interpret this result as normal/abnormal. INDEX LIPEMIA (test code = LIPINDEX) 1 NORMAL <50 MG Index/DL See_Comment [Automated message] The system which generated this result transmitted reference range: 1 NORMAL. The reference range was not used to interpret this result as normal/abnormal. UA RFLX MICR CULT IF [id number] 18:47:00* Test Item Value Reference Range Interpretation Comme nts UA COLOR (test code = COLU) LIGHT-YELLOW DESCRIPT YELLOW UA APPEARANCE (test code = APPU) TURBID (1+)HAZY-CLDY DESCRIPT CLEAR A UA GLUCOSE DIPSTICK (test code = DGLUU) OVER >1000 (4+) mg/dL See_Comment A [Automated message] The system which generated this result transmitted reference range: 0 (NORMAL). The reference range was not used to interpret this result as normal/abnormal. UA BILIRUBIN DIPSTICK (test code = BILU) NEGATIVE (0.0) mg/dL See_Comment [Automated message] The system which generated this result transmitted reference range: (NEG) 0. The reference range was not used to interpret this result as normal/abnormal. UA KETONE DIPSTICK (test code = KETU) 10 (1+) mg/dL See_Comment A [Automated message] The system which generated this result transmitted reference range: (NEG) 0. The reference range was not used to interpret this result as normal/abnormal. UA SPECIFIC GRAVITY (test code = SGU) 1.030 SG 1.001-1.035 UA BLOOD DIPSTICK (test code = NIOCLÁS) NEGATIVE (0.00) mg/dL See_Comment [Automated message] The system which generated this result transmitted reference range: 0 (NEG). The reference range was not used to interpret this result as normal/abnormal. UA PH DIPSTICK (test code = JEB) 7.5 pH UNITS 4.6-8.0 UA PROTEIN DIPSTICK (test code = PROU) NEGATIVE (0) mg/dL See_Comment [Automated message] The system which generated this result transmitted reference range: (NEG) <30. The reference range was not used to interpret this result as normal/abnormal. UA UROBILINIOGEN DIPSTICK (test code = URO) NORMAL (0) mg/Dl See_Comment [Automated message] The system which generated this result transmitted reference range: (NORM)<2.0. The reference range was not used to interpret this result as normal/abnormal. UA NITRITE DIPSTICK (test code = UGO) NEGATIVE (0) SCREEN NEG UA LEUKOCYTE ESTERASE DIPSTICK (test code = LEUU) NEGATIVE (0) Leuk/mcL See_Comment [Automated message] The system which generated this result transmitted reference range: (NEG) 0. The reference range was not used to interpret this result as normal/abnormal. UA COMMENT (test code = COMU) SPECIMEN COMMENT NoteSPEC SpecComment UA WBC (test code = WBCU) 0-3 #WBC/HPF 0-3 UA RBC (test code = RBCU) 0-3 #RBC/HPF 0-3 UA BACTERIA (test code = BACU) TRACE >0 /HPF NONE-FEW UA SQUAMOUS CELLS (test code = SQU) FEW >2 /UL NONE-SQepi UA MUCUS (test code = MUCU) RARE /LPF NONE UA AMORPHOUS SEDIMENT (test code = AMORU) RARE >0 #/mcL NONE-FEW UA CULTURE NEEDED? (test code = UACULT) Crit NOTmet CULT-N/A Criteria Cult byWBC Indication for culture: Dysuria/FrequencyUA DESCRIPTION: CLEAN CATCHCBC W/AUTO [id number] 18:38:00* Test Item Value Reference Range Interpretation Comme nts WHITE BLOOD CELL (test code = WBC) 12.9 K/mm3 4.1-12.1 H RED BLOOD CELL (test code = RBC) 4.22 M/mm3 3.8-5.5 N HEMOGLOBIN (test code = HGB) 11.8 G/DL 10.6-15.8 N HEMATOCRIT (test code = HCT) 34.1 % 31.8-47.4 N MEAN CELL VOLUME (test code = MCV) 80.8 fL 80.1-101.1 N MEAN CELL HGB (test code = MCH) 28.0 pg 25.3-35.3 N MEAN CELL HGB CONCETRATION ( test code = MCHC) 34.6 G/DL 32.7-35.1 N RED CELL DISTRIBUTION WIDTH (test code = RDW) 12.5 % 12.2-16.4 N RED CELL DISTRIBUTION WIDTH (test code = RDW-SD) 35.7 fL 36.4-46.3 L PLATELET COUNT (test code = PLT) 331 K/mm3 155-337 N MEAN PLATELET VOLUME (test c ode = MPV) 9.0 fL 6.8-11.2 N GRANULOCYTE % (test code = GR%) 68.5 % 37.8-82.6 N IMMATURE GRANULOCYTE % (test code = IG%) 0.6 % 0.0-2.0 N LYMPHOCYTE % (test code = LY%) 23.5 % 14.1-45.4 N MONOCYTE % (test code = MO%) 6.7 % 2.5-11.7 N EOSINOPHIL % (test code = EO%) 0.5 % 0.0-6.2 N BASOPHIL % (test code = BA%) 0.2 % 0.0-2.1 N NUCLEATED RBC % (test code = NRBC%) 0.0 /100WBC% 0.0-1.0 N GRANULOCYTE # (test code = GR#) 8.85 k/mm3 2.0-13.7 N IMMATURE GRANULOCYTE # (test code = IG#) 0.08 K/mm3 0.00-0.03 H LYMPHOCYTE # (test code = LY#) 3.04 K/mm3 0.6-3.8 N MONOCYTE # (test code = MO#) 0.86 K/mm3 0.11-0.59 H EOSINOPHIL # (test code = EO#) 0.06 K/mm3 0.0-0.4 N BASOPHIL # (test code = BA#) 0.03 K/mm3 0.0-0.1 N NUCLEATED RBC # (test code = NRBC#) 0.00 K/mm3 0.0-0.05 N UA RFLX MICR CULT IF [id number] 18:31:00* Test Item Value Reference Range Interpretation Comme nts UA COLOR (test code = COLU) LIGHT-YELLOW DESCRIPT YELLOW UA APPEARANCE (test code = APPU) TURBID (1+)HAZY-CLDY DESCRIPT CLEAR A UA GLUCOSE DIPSTICK (test code = DGLUU) OVER >1000 (4+) mg/dL See_Comment A [Automated message] The system which generated this result transmitted reference range: 0 (NORMAL). The reference range was not used to interpret this result as normal/abnormal. UA BILIRUBIN DIPSTICK (test code = BILU) NEGATIVE (0.0) mg/dL See_Comment [Automated message] The system which generated this result transmitted reference range: (NEG) 0. The reference range was not used to interpret this result as normal/abnormal. UA KETONE DIPSTICK (test code = KETU) 10 (1+) mg/dL See_Comment A [Automated message] The system which generated this result transmitted reference range: (NEG) 0. The reference range was not used to interpret this result as normal/abnormal. UA SPECIFIC GRAVITY (test code = SGU) 1.016 SG 1.001-1.035 UA BLOOD DIPSTICK (test code = NICOLÁS) NEGATIVE (0.00) mg/dL See_Comment [Automated message] The system which generated this result transmitted reference range: 0 (NEG). The reference range was not used to interpret this result as normal/abnormal. UA PH DIPSTICK (test code = JEB) 7.0 pH UNITS 4.6-8.0 UA PROTEIN DIPSTICK (test code = PROU) NEGATIVE (0) mg/dL See_Comment [Automated message] The system which generated this result transmitted reference range: (NEG) <30. The reference range was not used to interpret this result as normal/abnormal. UA UROBILINIOGEN DIPSTICK (test code = URO) NORMAL (0) mg/Dl See_Comment [Automated message] The system which generated this result transmitted reference range: (NORM)<2.0. The reference range was not used to interpret this result as normal/abnormal. UA NITRITE DIPSTICK (test code = UGO) NEGATIVE (0) SCREEN NEG UA LEUKOCYTE ESTERASE DIPSTICK (test code = LEUU) 25 Leuk/mcL See_Comment A [Automated message] The system which generated this result transmitted reference range: (NEG) 0. The reference range was not used to interpret this result as normal/abnormal. UA COMMENT (test code = COMU) SPECIMEN COMMENT NoteSPEC SpecComment UA WBC (test code = WBCU) 0-3 #WBC/HPF 0-3 UA RBC (test code = RBCU) 0-3 #RBC/HPF 0-3 UA BACTERIA (test code = BACU) FEW >1 /HPF NONE-FEW UA SQUAMOUS CELLS (test code = SQU) MANY >20 /UL NONE-SQepi UA MUCUS (test code = MUCU) RARE /LPF NONE UA CULTURE NEEDED? (test code = UACULT) Crit NOTmet CULT-N/A Criteria Cult byWBC Indication for culture: RiskForSepsis-no oth srcUA DESCRIPTION: CLEAN CATCH GLUCOSE BEDSIDE [id number] 18:14:00* Test Item Value Reference Range Interpretation Comme nts GLUCOSE BEDSIDE TESTING (shey t code = GLUBED) 221 MG/DL 70-119 H - XR SHOULDER 2 + V [id number] 17:23:00 [facility] 1990 Sex: F FAX: Tad Ramos MD [phone] [place]: St: [facility] FAX: Renita Winters MD [phone] Patient Name: MELODY NINO Unit No: [id number] EXAMS: CPT CODE: [id number] XR SHOULDER 2 + V RT 73752 Location: C3 EXAM:- XR SHOULDER 2 + V RT INDICATION: fall, 11 wk please shield COMPARISON: None TECHNIQUE: 3views of the right shoulder. FINDINGS: There is subtle linear lucency along the lateral aspect of the humeral head, without cortical step-off. Otherwise, no acute fracture or malalignment. No soft tissue abnormality is identified. IMPRESSION: 1. Subtle linear lucency along the lateral aspect of the humeral head, favored to represent a vascular channel. A subtle, nondisplaced, hairline fracture is thought to be unlikely, but would be difficult to completely exclude on the basis of this imaging. Consider correlation with point tenderness. 2. No other acute bony abnormality. at 1723 Reported and signed by: Pasha Agrawal MD CC: Tad Jordan MD; Renita Ballard MD Dictated Date/Time: 08/10/2022 (1722)Technologist: ESTEFANI RAMIREZ Transcribed Date/Time: 08/10/2022 (1722) By: [email or web address] Orig Print D/T: S: 08/10/2022 (172) [facility] NAME: AMINTA NINO [address] PHYS: TEDDY. Renita Ballard MD [place], [place] [address] : 1990 AGE: 32 SEX: F LOC: [facility] PHONE #: [phone] EXAM DATE: 08/10/2022 STATUS: REG ER FAX #: [phone] RAD NO: DC Dt: PAGE 1 Signed ReportGLUCOSE BEDSIDE [id number] 15:43:00* Test Item Value Reference Range Interpretation Comme nts GLUCOSE BEDSIDE TESTING (shey t code = GLUBED) 320 MG/DL 70-119 H HCG SERUM [id number] 15:09:00* Test Item Value Reference Range Interpretation Comme nts HCG SERUM QUAL (test code = HCGQL) Positive SCREEN NEG A TROP-I HIGH [id number] 14:57:00* Test Item Value Reference Range Interpretation Comme nts TROP-I HIGH SENSITIVITY (test code = TROPIHS) < 4 ng/L 0-45 N CAUTION: Units of the current test methodology (ng/L) differfrom the prior test methodology (ng/mL) by a factor of 1000. 99th Percentile Upper Reference Limit (URL): Females: 54 ng/LMales: 78 ng/L In order to distinguish acute elevations of high sensitivitytroponin from other clinical conditions, the FourthUniversal Definition of Myocardial Infarction stressesclinical assessment and the demonstration of a rise and/orfall in serial troponin results above the URL. Results from different methodologies should not be comparedto one another as quantitative results and URLs may vary bymethod. BASIC METABOLIC [id number] 14:49:00* Test Item Value Reference Range Interpretation Comme nts SODIUM (test code = NA) 137.0 mmol/L 133-144 N POTASSIUM (test code = K) 3.8 mmol/L 3.5-5.1 N CHLORIDE (test code = CL) 105 mmol/L 95-105 N CARBON DIOXIDE (test code = CO2) 22 mmol/L 21-32 N ANION GAP (test code = GAP) 10.0 GAP calc 4.0-15.0 N GLUCOSE (test code = GLU) 312 MG/DL 70-110 H BLOOD UREA NITROGEN (test code = BUN) 11 MG/DL 7-18 N GLOMERULAR FILTRATION RATE (test code = GFR) 125 estGFR >60 The Glomerular Filtration Rate is a calculated parameterbased on serum Creatinine, patient age and sex. GFR valuesless than 60 mL/min/1.73 square meters are indicative ofChronic Kidney Disease. Values less than 15 mL/min/1.73square meters indicate Kidney failure. The calculation forGFR is based on the CKD-EPI (202) calculation. This formulais race indifferent and is the recommended formula for GFRby the National Kidney Foundation for Adults.The GFR will not calculate if the sex is unknown or if thepatient's age is <18 years. CREATININE (test code = CREAT) 0.57 MG/DL 0.55-1.30 N Results may be depressed if patient is takingN-Acetylcysteine (NAC) and Metamizole (Dipyrone). CALCIUM (test code = CA) 9.0 MG/DL 8.5-10.1 N INDEX HEMOLYSIS (test code = HEMINDEX) 1 NORMAL <10 MG Index/DL See_Comment [Automated message] The system which generated this result transmitted reference range: 1 NORMAL. The reference range was not used to interpret this result as normal/abnormal. INDEX ICTERIC (test code = ICTINDEX) 1 NORMAL <2 MG Index/DL See_Comment [Automated message] The system which generated this result transmitted reference range: 1 NORMAL. The reference range was not used to interpret this result as normal/abnormal. INDEX LIPEMIA (test code = LIPINDEX) 1 NORMAL <50 MG Index/DL See_Comment [Automated message] The system which generated this result transmitted reference range: 1 NORMAL. The reference range was not used to interpret this result as normal/abnormal. [id number] 14:49:00* Test Item Value Reference Range Interpretation Comme nts MAGNESIUM (test code = MAG) 1.8 MG/DL 1.6-2.6 N CBC W/O [id number] 14:36:00* Test Item Value Reference Range Interpretation Comme nts WHITE BLOOD CELL (test code = WBC) 11.6 K/mm3 4.1-12.1 N RED BLOOD CELL (test code = RBC) 4.46 M/mm3 3.8-5.5 N HEMOGLOBIN (test code = HGB) 12.7 G/DL 10.6-15.8 N HEMATOCRIT (test code = HCT) 36.3 % 31.8-47.4 N MEAN CELL VOLUME (test code = MCV) 81.4 fL 80.1-101.1 N MEAN CELL HGB (test code = MCH) 28.5 pg 25.3-35.3 N MEAN CELL HGB CONCETRATION ( test code = MCHC) 35.0 G/DL 32.7-35.1 N RED CELL DISTRIBUTION WIDTH (test code = RDW) 12.6 % 12.2-16.4 N PLATELET COUNT (test code = PLT) 314 K/mm3 155-337 N MEAN PLATELET VOLUME (test c ode = MPV) 9.3 fL 6.8-11.2 N [id number] 14:32:00* Test Item Value Reference Range Interpretation Comme nts MODALITY (test code = MOD) RA COMMENT DESCRIPTION VENOUS BLOOD GAS [id number] 14:32:00* Test Item Value Reference Range Interpretation Comme nts VENOUS BLOOD GAS PH (test co de = PHV) 7.40 pH units 7.32-7.42 N VENOUS BLOOD GAS [id number] 14:32:00* Test Item Value Reference Range Interpretation Comme [facility] VENOUS BLOOD GAS PCO2 (test code = PCO2V) 39 mmHg 41-51 L VENOUS BLOOD GAS [id number] 14:32:00* Test Item Value Reference Range Interpretation Comme [facility] VENOUS BLOOD GAS PO2 (test c ode = PO2V) 42 mmHg 25-40 H VBG [id number] 14:32:00* Test Item Value Reference Range Interpretation Comme [facility] VBG HCO3 (test code = HCO3V) 23.9 mmol/L 24-28 L VENOUS BLOOD GAS [id number] 14:32:00* Test Item Value Reference Range Interpretation Comme [facility] VENOUS BLOOD GAS SITE (test code = SITEV) Venous Site DESCRIPTION GLUCOSE BEDSIDE [id number] 13:47:00* Test Item Value Reference Range Interpretation Comme [facility] GLUCOSE BEDSIDE TESTING (shey t code = GLUBED) 320 MG/DL 70-119 H HEPATIC FUNCTION [id number] 17:12:00* Test Item Value Reference Range Interpretation Comme [facility] TOTAL PROTEIN (test code = PROT) 7.5 G/DL 6.4-8.2 N ALBUMIN (test code = ALB) 3.2 G/DL 3.4-5.0 L BILIRUBIN TOTAL (test code = BILT) 0.75 MG/DL 0.00-1.00 N BILIRUBIN DIRECT (test code = BILD) 0.14 MG/DL 0.00-0.30 N BILIRUBIN INDIRECT (test cod e = BILIND) 0.61 MG/DL 0.2-1.3 N SGOT/AST (test code = AST) 14 Unit/L 15-37 L SGPT/ALT (test code = ALT) 21 Unit/L 12-78 N ALKALINE PHOSPHATASE TOTAL ( test code = ALKP) 83 Unit/L 45-117 N Specimen comments: [id number] 17:12:00* Test Item Value Reference Range Interpretation Comme [facility] LIPASE (test code = LIP) 134 Unit/L 114-286 N Specimen comments: [facility] [id number] 17:12:00* Test Item Value Reference Range Interpretation Comme [facility] HCG SERUM (test code = HCG) 715[address] mi-IU/ML 0-3 H HCG RANGES DURIN G NORMAL PREGNANCYPOST LMP 3-4 WEEKS 9 - 130 MIU/ML4-5 WEEKS 75 - 2,600 MIU/ML5-6 WEEKS 850 - 20,800 MIU/ML6-7 WEEKS 4,000 - 100,200 MIU/ML7-12 WEEKS 11,500 - 289,000 MIU/ML12-16 WEEKS 18,300 - 137,000 MIU/ML16-29 WEEKS 1,400 - 53,000 MIU/ML 29-41 WEEKS 940 - 60,000 MIU/ML Specimen comments: [facility] [id number] 17:12:00* Test Item Value Reference Range Interpretation Comme nts SODIUM (test code = NA) 135.0 mmol/L 133-144 N POTASSIUM (test code = K) 3.7 mmol/L 3.5-5.1 N CHLORIDE (test code = CL) 105 mmol/L 95-105 N CARBON DIOXIDE (test code = CO2) 22 mmol/L 21-32 N ANION GAP (test code = GAP) 8.0 GAP calc 4.0-15.0 N GLUCOSE (test code = GLU) 256 MG/DL 70-110 H BLOOD UREA NITROGEN (test code = BUN) 11 MG/DL 7-18 N GLOMERULAR FILTRATION RATE (test code = GFR) 121 estGFR >60 The Glomerular Filtration Rate is a calculated parameterbased on serum Creatinine, patient age and sex. GFR valuesless than 60 mL/min/1.73 square meters are indicative ofChronic Kidney Disease. Values less than 15 mL/min/1.73square meters indicate Kidney failure. The calculation forGFR is based on the CKD-EPI (202) calculation. This formulais race indifferent and is the recommended formula for GFRby the National Kidney Foundation for Adults.The GFR will not calculate if the sex is unknown or if thepatient's age is <18 years. CREATININE (test code = CREAT) 0.65 MG/DL 0.55-1.30 N Results may be depressed if patient is takingN-Acetylcysteine (NAC) and Metamizole (Dipyrone). CALCIUM (test code = CA) 8.9 MG/DL 8.5-10.1 N INDEX HEMOLYSIS (test code = HEMINDEX) 1 NORMAL <10 MG Index/DL See_Comment [Automated message] The system which generated this result transmitted reference range: 1 NORMAL. The reference range was not used to interpret this result as normal/abnormal. INDEX ICTERIC (test code = ICTINDEX) 1 NORMAL <2 MG Index/DL See_Comment [Automated message] The system which generated this result transmitted reference range: 1 NORMAL. The reference range was not used to interpret this result as normal/abnormal. INDEX LIPEMIA (test code = LIPINDEX) 1 NORMAL <50 MG Index/DL See_Comment [Automated message] The system which generated this result transmitted reference range: 1 NORMAL. The reference range was not used to interpret this result as normal/abnormal. Specimen comments: ccUA RFLX MICR CULT IF [id number] 16:47:00* Test Item Value Reference Range Interpretation Comme nts UA COLOR (test code = COLU) LIGHT-YELLOW DESCRIPT YELLOW UA APPEARANCE (test code = APPU) CLEAR DESCRIPT CLEAR UA GLUCOSE DIPSTICK (test code = DGLUU) OVER >1000 (4+) mg/dL See_Comment A [Automated message] The system which generated this result transmitted reference range: 0 (NORMAL). The reference range was not used to interpret this result as normal/abnormal. UA BILIRUBIN DIPSTICK (test code = BILU) NEGATIVE (0.0) mg/dL See_Comment [Automated message] The system which generated this result transmitted reference range: (NEG) 0. The reference range was not used to interpret this result as normal/abnormal. UA KETONE DIPSTICK (test code = KETU) 20 (1+) mg/dL See_Comment A [Automated message] The system which generated this result transmitted reference range: (NEG) 0. The reference range was not used to interpret this result as normal/abnormal. UA SPECIFIC GRAVITY (test code = SGU) 1.035 SG 1.001-1.035 UA BLOOD DIPSTICK (test code = NICOLÁS) NEGATIVE (0.00) mg/dL See_Comment [Automated message] The system which generated this result transmitted reference range: 0 (NEG). The reference range was not used to interpret this result as normal/abnormal. UA PH DIPSTICK (test code = JEB) 6.5 pH UNITS 4.6-8.0 UA PROTEIN DIPSTICK (test code = PROU) 10 (TRACE) mg/dL See_Comment A [Automated message] The system which generated this result transmitted reference range: (NEG) <30. The reference range was not used to interpret this result as normal/abnormal. UA UROBILINIOGEN DIPSTICK (test code = URO) NORMAL (0) mg/Dl See_Comment [Automated message] The system which generated this result transmitted reference range: (NORM)<2.0. The reference range was not used to interpret this result as normal/abnormal. UA NITRITE DIPSTICK (test code = UGO) NEGATIVE (0) SCREEN NEG UA LEUKOCYTE ESTERASE DIPSTICK (test code = LEUU) NEGATIVE (0) Leuk/mcL See_Comment [Automated message] The system which generated this result transmitted reference range: (NEG) 0. The reference range was not used to interpret this result as normal/abnormal. UA COMMENT (test code = COMU) SPECIMEN COMMENT NoteSPEC SpecComment UA WBC (test code = WBCU) 0-3 #WBC/HPF 0-3 UA RBC (test code = RBCU) 0-3 #RBC/HPF 0-3 UA SQUAMOUS CELLS (test code = SQU) MODERATE >10 /UL NONE-SQepi UA MUCUS (test code = MUCU) RARE /LPF NONE UA CULTURE NEEDED? (test code = UACULT) Crit NOTmet CULT-N/A Criteria Cult byWBC Specimen comments: ccIndication for culture: Suprapubic PainUA DESCRIPTION: CLEAN CATCHCBC W/O [id number] 16:40:00* Test Item Value Reference Range Interpretation Comme nts WHITE BLOOD CELL (test code = WBC) 11.3 K/mm3 4.1-12.1 N RED BLOOD CELL (test code = RBC) 4.44 M/mm3 3.8-5.5 N HEMOGLOBIN (test code = HGB) 12.6 G/DL 10.6-15.8 N HEMATOCRIT (test code = HCT) 36.0 % 31.8-47.4 N MEAN CELL VOLUME (test code = MCV) 81.1 fL 80.1-101.1 N MEAN CELL HGB (test code = MCH) 28.4 pg 25.3-35.3 N MEAN CELL HGB CONCETRATION ( test code = MCHC) 35.0 G/DL 32.7-35.1 N RED CELL DISTRIBUTION WIDTH (test code = RDW) 12.7 % 12.2-16.4 N PLATELET COUNT (test code = PLT) 283 K/mm3 155-337 N MEAN PLATELET VOLUME (test c ode = MPV) 9.0 fL 6.8-11.2 N Specimen comments: cc- US PREG EVAL 1ST [id number] 16:25:00 [facility] 1990 Sex: F Patient Name: AMINTA NINO Unit No: [id number] EXAMS: CPT CODE: [id number] US PREG EVAL 1ST TRIMTR [id number] EXAM: - US PREG UT TRANSVAGINAL, - US PREG EVAL 1ST TRIMTR INDICATION: 12 weeks TECHNIQUE: Transabdominal, and transvaginalpelvic ultrasound was performed. Grayscale, color Doppler and Doppler with spectral imaging. Location: T18. FINDINGS: Uterus: measures 12 x 7.2 x 8.2 cm. There is a single live intrauterine noted at 11 weeks 6 days gestation. The heart rate is 164 bpm. Right ovary: measures 3.6 x 2.6 x 2.4 cm. Corpus luteal cyst noted measuring 2 cmin size. Ovarian blood flow is documented by pulse wave Doppler. Left ovary: measures 2.6 x 1.4 x 2.6 cm. No mass or cyst seen. Ovarian blood flow is documented by pulse wave Doppler. No adnexal massseen. No free fluid seen in the pelvis. IMPRESSION: There is a single live intrauterine seen at 11 weeks 6 days gestation. Please refer to the findings section for additional details. at 1625 Reported and signed by: Quinn Ngo MD CC: Andrea Garcia MD; Tad Jordan MD Technologist: Alba Sorto Trnscrbd D/ ([id number]) [email or web address] Probe: Orig Print D/T: S: 08/07/2022 (1628) Probe: ADAMARIS Lupe NAME: AMINTA NINO [facility] PHYS: Andrea Carrion MD [address] [place] [address] : 1990AGE: 32 SEX: STEPHAN[place] [id number] LOC: BDeisyERS PHONE #: [phone] EXAM DATE: 08/07/2022 STATUS: REG ER FAX #: [phone] RAD NO: Page 1 Signed Report - US PREG UT [id number] 16:25:00 [facility] : 1990 Sex: F Patient Name: AMINTA NINO Unit No: [id number] EXAMS: CPT CODE: [id number] US PREG UT TRANSVAGINAL [id number] EXAM: - US PREG UT TRANSVAGINAL, - US PREG EVAL 1ST TRIMTR INDICATION: 12 weeks TECHNIQUE: Transabdominal, and transvaginalpelvic ultrasound was performed. Grayscale, color Doppler and Doppler with spectral imaging. Location: T18. FINDINGS: Uterus: measures 12 x 7.2 x 8.2 cm. There is a single live intrauterine noted at 11 weeks 6 days gestation. The heart rate is 164 bpm. Right ovary: measures 3.6 x 2.6 x 2.4 cm. Corpus luteal cyst noted measuring 2 cmin size. Ovarian blood flow is documented by pulse wave Doppler. Left ovary: measures 2.6 x 1.4 x 2.6 cm. No mass or cyst seen. Ovarian blood flow is documented by pulse wave Doppler. No adnexal massseen. No free fluid seen in the pelvis. IMPRESSION: There is a single live intrauterine seen at 11 weeks 6 days gestation. Please refer to the findings section for additional details. at 1625 Reported and signed by: Quinn Ngo MD CC: Tad Jordan MD; Lydia HECK Technologist: Alba Sorto Trnscrbd D/ ([id number]) [email or web address] Probe: [id number] Orig Print D/T: S: 08/07/2022 ([id number]) Probe: ADAMARIS Andrade NAME: AMINTA NINO [address] PHYS: Lydia [place], [place] [address] : 1990 AGE: 32 SEX: F LOC: B.CONSTANTINE PHONE #: [phone] EXAM DATE: 08/07/2022STATUS: REG ER FAX #: [phone] RAD NO: Page 1 Signed ReportGLUCOSE BEDSIDE TESTING 2022-08-07 15:47:00* Test Item Value Reference Range Interpretation Comme [facility] GLUCOSE BEDSIDE TESTING (shey t code = GLUBED) 264 MG/DL 70-119 H [id number] 23:10:00* Test Item Value Reference Range Interpretation Comme nts Glucose (test code = GLU) 328 mg/dl 75-110 H BUN (test code = BUN) 10.0 mg/dl 6.0-17.0 Creatinine (test code = CREA) 0.5 mg/dl 0.4-1.2 Sodium (test code = NA) 134 mmol/l 137-145 L Anion Gap (test code = GAP) 7 mmol/l 5-15 Potassium (test code = K) 3.8 mmol/l 3.5-5.0 Chloride (test code = CL) 104 mmol/l 98-107 CO2 (test code = CO2) 23 mmol/l 22-30 Calcium (test code = CALC) 9.4 mg/dl 8.4-10.2 T Protein (test code = TP) 8.1 gm/dl 5.1-8.7 Albumin (test code = ALB) 3.6 gm/dl 3.5-4.6 A/G Ratio (test code = AGRAT) 0.8 % 1.1-2.2 L AST (SGOT) (test code = AST) 22 U/L 11-36 ALT (SGPT) (test code = ALT) 32 U/L 11-40 Alkaline Phos (test code = ALKP) 92 U/L 47-114 Bilirubin, Total (test code = TBIL) 0.5 mg/dl 0.2-1.2 Globulin (test code = GLOBU) 4.5 gm/dl 2.3-3.5 H Calcium, Corrected (test code = CALCCORR) 9.7 mg/dl 8.4-10.2 Various formulas exist for corrected serum calcium results, each yielding different values. This corrected result was based on the formula: Corrected Calcium = SerumCalcium + [0.8 * ( 4 - SerumAlbumin)] Estimated Glomerular Filtration Rate (eGFR) (test code = EGFR) >60 As of 05/19/2022, reported eGFR is based on the CKD-EPI 2020 equation that does not use a race coefficient. STLMLCBC WITH AUTO [id number] 23:02:00* Test Item Value Reference Range Interpretation Comme nts WBC (test code = WBC) 9.45 10\\S\\3/ul 4.80-10.80 RBC (test code = RBC) 4.80 10\\S\\6/ul 4.20-5.40 Hemoglobin (test code = HGB) 13.5 gm/dl 12.0-14.0 Hematocrit (test code = HCT) 39.5 % 37.0-47.0 MCV (test code = MCV) 82.3 fL 81.0-99.0 MCH (test code = MCH) 28.1 pg 27.0-31.0 MCHC (test code = MCHC) 34.2 gm/dl 33.0-37.0 RDW (test code = RDWVC) 12.4 % 11.5-14.5 Platelet (test code = PLT) 303 10\\S\\3/ul 130-400 MPV (test code = MPV) 9.1 fL 7.4-10.4 A "NOT MEASURED" RESULTS ARE DISPLAYED WHEN THE INSTRUMENT HAS A SUPPRESSED OR UNREPORTABLE RESULT. THIS WILL MOST OFTEN HAPPEN WITH THE MPV WHEN THERE IS AN ABNORMAL PLATELET DISTRIBUTION DUE TO A CRITICAL LOW VALUE OR PLATELET CLUMPING. THE RDW MAY BE SUPPRESSED IF THERE ARE MULTIPLE PEAKS PRESENT ON THE RBC HISTOGRAM. IN THIS CASE, A MANUAL REVIEW OF THE SLIDE WILL BE PERFORMED, AND RBC MORPHOLOGY WILL BE NOTED ON THE REPORT. NE% (test code = NE) 63.3 % 42.0-75.0 LY% (test code = LY) 28.5 % 13.0-42.0 MO% (test code = MO) 7.0 % 4.0-14.0 EO% (test code = EO) 0.4 % 1.0-5.0 L BA% (test code = BA) 0.3 % 0.0-3.0 IG% (test code = IG%) 0.5 % 0.0-0.4 H STLMLURINALYSIS WITH REFLEX TO [id number] 22:51:00* Test Item Value Reference Range Interpretation Comme nts Color (test code = UCOLR) Yellow Clarity (test code = UCLAR) Clear Glucose (test code = UGLUC) >=1000 NEGATIVE A Bilirubin (test code = UBILI) NEGATIVE NEGATIVE N Ketones (test code = UKET) TRACE NEGATIVE A Specific Rarden (test code = USPGR) 1.015 1.005-1.030 A Blood (test code = UBLD) NEGATIVE NEGATIVE N PH (test code = UPH) 7.0 4.5-8.0 A Protein (test code = UPROT) NEGATIVE NEGATIVE N Urobilinogen (test code = U UROB) 1.0 See_Comment A [Automated AUPEO!a ge] The system which generated this result transmitted reference range: 0.2. The reference range was not used to interpret this result as normal/abnormal. Nitrite (test code = UNITR) NEGATIVE NEGATIVE N Leukocyte Esterase (test code = ULEUK) NEGATIVE NEGATIVE N STLMLCULTURE, [id number] 09:22:00Specimen: Urine SpecimensCollected: 07/20/2022 18:53 Status: Final Last Updated: 07/22/2022 09:22 CULTURE (Final) (Final) >100,000 cc/mL Streptococcus species Few Mixed Body Lali Also Isolated Isolate (Final) (Final) Streptococcus agalactiae This organism may be significant in women of childbearing age due tothe occurance of meningitis.STLMLBETA HCG [id number] 19:32:00* Test Item Value Reference Range Interpretation Comme nts BHCG II (test code = BHCGII) 93108.0 mIU/L 0.0-4.8 H A NEW EXPANDED M ETHOD FOR BHCG WILL BE INTRODUCED ON OCTOBER 21, 2006. THE DYNAMIC RANGE OF THE TEST HAS BEEN INCREASED ALLOWING FOR FEWER DILUTUIONS, AND THE GESTATION WEEKS HAVE BEEN AGGREGATED TO ALLOW FOR EASE OF INTREPRETATION. PLEASE REFER TO THE INTERPRETATION TABLE BELOW. Beta hCG levels in non- individuals = <4.83 IU/L GESTATIONAL AGE: 1-10 weeks 63.70 - 653939.00 IU/L 11-15 weeks 94280.00 - 486929.00 IU/L 16-22 weeks 9383.80 - 01726.00 IU/L 23-40 weeks 1737.20 - 02622.00 IU/L Detection of very Low Levels of hCG does not exclude . Repeat testing after 48 Hrs. is recommended. THIS ASSAY SHOULD NOT BE USED TO DIAGNOSE ANY CONDITION UNRELATED TO . [id number] 19:22:00* Test Item Value Reference Range Interpretation Comme nts ABO Blood Type (test code = ABO) A [id number] 19:21:00* Test Item Value Reference Range Interpretation Comme nts Rh (test code = RH) Positive Weak D (Du) (test code = DU) N/A [id number] 19:20:00* Test Item Value Reference Range Interpretation Comme nts Glucose (test code = GLU) 162 mg/dl 75-110 H BUN (test code = BUN) 15.0 mg/dl 6.0-17.0 Creatinine (test code = CREA) 0.5 mg/dl 0.4-1.2 Sodium (test code = NA) 136 mmol/l 137-145 L Potassium (test code = K) 3.8 mmol/l 3.5-5.0 Chloride (test code = CL) 105 mmol/l 98-107 CO2 (test code = CO2) 26 mmol/l 22-30 Calcium (test code = CALC) 9.1 mg/dl 8.4-10.2 T Protein (test code = TP) 7.5 gm/dl 5.1-8.7 Albumin (test code = ALB) 3.4 gm/dl 3.5-4.6 L A/G Ratio (test code = AGRAT) 0.8 % 1.1-2.2 L AST (SGOT) (test code = AST) 18 U/L 11-36 ALT (SGPT) (test code = ALT) 30 U/L 11-40 Alkaline Phos (test code = ALKP) 81 U/L 47-114 Bilirubin, Total (test code = TBIL) 0.4 mg/dl 0.2-1.2 Globulin (test code = GLOBU) 4.1 gm/dl 2.3-3.5 H Anion Gap (test code = GAP) 5 mmol/l 5-15 Calcium, Corrected (test code = CALCCORR) 9.6 mg/dl 8.4-10.2 Various formulas exist for corrected serum calcium results, each yielding different values. This corrected result was based on the formula: Corrected Calcium = SerumCalcium + [0.8 * ( 4 - SerumAlbumin)] Estimated Glomerular Filtration Rate (eGFR) (test code = EGFR) >60 As of 05/19/2022, reported eGFR is based on the CKD-EPI 2020 equation that does not use a race coefficient. STLMLURINALYSIS WITH REFLEX TO [id number] 19:01:00* Test Item Value Reference Range Interpretation Comme nts Color (test code = UCOLR) Yellow Clarity (test code = UCLAR) Cloudy Glucose (test code = UGLUC) 250 NEGATIVE A Bilirubin (test code = UBILI) NEGATIVE NEGATIVE N Ketones (test code = UKET) TRACE NEGATIVE A Specific Rarden (test code = USPGR) 1.015 1.005-1.030 A Blood (test code = UBLD) NEGATIVE NEGATIVE N PH (test code = UPH) 7.0 4.5-8.0 A Protein (test code = UPROT) TRACE NEGATIVE A Urobilinogen (test code = U UROB) 0.2 See_Comment N [Automated message] The system which generated this result transmitted reference range: 0.2. The reference range was not used to interpret this result as normal/abnormal. Nitrite (test code = UNITR) NEGATIVE NEGATIVE N Leukocyte Esterase (test code = ULEUK) MODERATE NEGATIVE A WBC (test code = WBCUR) TNTC NONE,0-1,2-5,6-1 0 A No previous value was reported. A value of TNTC was entered by [employer] on 07/20/2022 19:01 RBC (test code = RBCUR) None Seen 0-5 A No previous valu e was reported. A value of None Seen was entered by [employer] on 07/20/2022 19:01 Epithial Cells (test code = U EPI) TNTC 0-10 A No previous value was reported. A value of TNTC was entered by [employer] on 07/20/2022 19:01 Mucous (test code = UMUC) Trace None Seen A No previous valu e was reported. A value of Trace was entered by [employer] on 07/20/2022 19:01 Bacteria (test code = UBACT) 2+ None Seen,Trace A No previous valu e was reported. A value of 2+ was entered by [employer] on 07/20/2022 19:01 Urine Misc (test code = UR MISC) Few Trichomonas Vaginalis None Seen A No previous value was reported. A value of Few Trichomonas Vaginalis was entered by [employer] on 07/20/2022 19:01 STLMLCBC WITH AUTO [id number] 18:50:00* Test Item Value Reference Range Interpretation Comme nts WBC (test code = WBC) 11.56 10\\S\\3/ul 4.80-10.80 H RBC (test code = RBC) 4.65 10\\S\\6/ul 4.20-5.40 Hemoglobin (test code = HGB) 13.0 gm/dl 12.0-14.0 Hematocrit (test code = HCT) 38.0 % 37.0-47.0 MCV (test code = MCV) 81.7 fL 81.0-99.0 MCH (test code = MCH) 28.0 pg 27.0-31.0 MCHC (test code = MCHC) 34.2 gm/dl 33.0-37.0 RDW (test code = RDWVC) 12.3 % 11.5-14.5 Platelet (test code = PLT) 293 10\\S\\3/ul 130-400 MPV (test code = MPV) 9.0 fL 7.4-10.4 A "NOT MEASURED" RESULTS ARE DISPLAYED WHEN THE INSTRUMENT HAS A SUPPRESSED OR UNREPORTABLE RESULT. THIS WILL MOST OFTEN HAPPEN WITH THE MPV WHEN THERE IS AN ABNORMAL PLATELET DISTRIBUTION DUE TO A CRITICAL LOW VALUE OR PLATELET CLUMPING. THE RDW MAY BE SUPPRESSED IF THERE ARE MULTIPLE PEAKS PRESENT ON THE RBC HISTOGRAM. IN THIS CASE, A MANUAL REVIEW OF THE SLIDE WILL BE PERFORMED, AND RBC MORPHOLOGY WILL BE NOTED ON THE REPORT. NE% (test code = NE) 60.1 % 42.0-75.0 LY% (test code = LY) 30.4 % 13.0-42.0 MO% (test code = MO) 8.1 % 4.0-14.0 EO% (test code = EO) 0.6 % 1.0-5.0 L BA% (test code = BA) 0.3 % 0.0-3.0 IG% (test code = IG%) 0.5 % 0.0-0.4 H STLMLUA RFLX MICR CULT IF [id number] 19:56:00* Test Item Value Reference Range Interpretation Comme nts UA COLOR (test code = COLU) Yellow Yellow UA APPEARANCE (test code = APPU) Cloudy Clear A UA GLUCOSE DIPSTICK (test code = DGLUU) >=500 (3+) Negative A UA BILIRUBIN DIPSTICK (test code = BILU) Negative Negative UA KETONE DIPSTICK (test code = KETU) Trace mg/dL Negative A UA SPECIFIC GRAVITY (test code = SGU) 1.028 <1.030 UA BLOOD DIPSTICK (test code = NICOLÁS) Negative Negative UA PH DIPSTICK (test code = JEB) 6.0 5.0-8.0 UA PROTEIN DIPSTICK (test code = PROU) NEGATIVE mg/dL Negative UA UROBILINOGEN DIPSTICK (test code = URO) Negative mg/dL Negative UA NITRITE DIPSTICK (test code = UGO) Negative Negative UA LEUKOCYTE ESTERASE DIPSTICK (test code = LEUU) 3+ Negative A UA WBC (test code = WBCUR) >100 /HPF See_Comment A >10 WBC/HPF = PYURIA PRESENT URINE CULTURE PROCESSED [Automated message] The system which generated this result transmitted reference range: <4-5. The reference range was not used to interpret this result as normal/abnormal. UA RBC (test code = RBCU) 31-40 /HPF See_Comment A [Automated message] The system which generated this result transmitted reference range: <4-5. The reference range was not used to interpret this result as normal/abnormal. UA BACTERIA (test code = BACU) 1+ /HPF None-Rare A UA SQUAMOUS CELLS (test code = SQU) >25 (MANY) /HPF See_Comment A [Automated message] The system which generated this result transmitted reference range: 0-5 (RARE). The reference range was not used to interpret this result as normal/abnormal. UA YEAST (BUDDING) (test code = YEASTUBD) 1+ /HPF None A Indication for culture: RiskForSepsis-no oth srcSOURCE OF URINE: CLEAN CATCH BASIC METABOLIC [id number] 19:35:00* Test Item Value Reference Range Interpretation Comme nts SODIUM (test code = NA) 136 mmol/L 137-145 L POTASSIUM (test code = K) 4.4 mmol/L 3.4-5.0 N CHLORIDE (test code = CL) 104 mmol/L 98-107 N CARBON DIOXIDE (test code = CO2) 21 mmol/L 22-30 L ANION GAP (test code = GAP) 16 GLUCOSE (test code = GLU) 252 mg/dL 74-106 H BLOOD UREA NITROGEN (test code = BUN) 12 mg/dL 7-17 N GLOMERULAR FILTRATION RATE (test code = GFR) 129 mL/min The Glomerular Filtration Rate is a calculated parameterbased on serum Creatinine, patient age and sex. GFR valuesless than 60 mL/min/1.73 square meters are indicative ofChronic Kidney Disease. Values less than 15 mL/min/1.73square meters indicate Kidney failure. The calculation forGFR is based on the CKD-EPI (202) calculation. This formulais race indifferent and is the recommended formula for GFRby the National Kidney Foundation for Adults.The GFR will not calculate if the sex is unknown or if thepatient's age is <18 years. CREATININE (test code = CREAT) < 0.5 mg/dL 0.5-1.0 L CALCIUM (test code = CA) 9.1 mg/dL 8.4-10.2 N INDEX HEMOLYSIS (test code = HEMINDEX) < 15 Index/DL 0-100 N CBC W/AUTO [id number] 19:23:00* Test Item Value Reference Range Interpretation Comme nts WHITE BLOOD CELL (test code = WBC) 11.4 x10 3/uL 5.0-12.0 N RED BLOOD CELL (test code = RBC) 4.63 x10 6/uL 4.20-5.40 N HEMOGLOBIN (test code = HGB) 13.1 g/dL 12.0-16.0 N HEMATOCRIT (test code = HCT) 37.9 % 36.0-46.0 N MEAN CELL VOLUME (test code = MCV) 82 fL 81-99 N MEAN CELL HGB (test code = MCH) 28.3 pg 27-31 N MEAN CELL HGB CONCENTRATION (test code = MCHC) 34.6 g/dL 33-37 N RED CELL DISTRIBUTION WIDTH (test code = RDW) 12.3 % 11.5-15.5 N PLATELET COUNT (test code = PLT) 288 x10 3/uL 130-400 N MEAN PLATELET VOLUME (test c ode = MPV) 9.3 fL 9.4-16.4 L NEUTROPHIL % (test code = NT%) 56.1 % 43-65 N IMMATURE GRANULOCYTE % (test code = IG%) 0.6 % 0.0-2.0 N LYMPHOCYTE % (test code = LY%) 32.8 % 20.5-45.5 N MONOCYTE % (test code = MO%) 9.7 % 5.5-11.7 N EOSINOPHIL % (test code = EO%) 0.5 % 0.9-2.9 L BASOPHIL % (test code = BA%) 0.3 % 0.2-1.0 N NUCLEATED RBC % (test code = NRBC%) 0.0 % 0-1.0 N NEUTROPHIL # (test code = NT#) 6.40 x10 3/uL 2.2-4.8 H IMMATURE GRANULOCYTE # (test code = IG#) 0.07 x10 3/uL 0-0.03 H LYMPHOCYTE # (test code = LY#) 3.75 x10 3/uL 1.3-2.9 H MONOCYTE # (test code = MO#) 1.11 x10 3/uL 0.3-0.8 H EOSINOPHIL # (test code = EO#) 0.06 x10 3/uL 0.0-0.2 N BASOPHIL # (test code = BA#) 0.03 x10 3/uL 0.0-0.1 N URINALYSIS WITH [id number] 19:46:00* Test Item Value Reference Range Interpretation Comme nts Color (test code = UCOLR) Yellow Clarity (test code = UCLAR) Sl Cloudy Glucose (test code = UGLUC) >=1000 NEGATIVE A Bilirubin (test code = UBILI) NEGATIVE NEGATIVE N Ketones (test code = UKET) >=80 NEGATIVE A Specific Rarden (test code = USPGR) 1.010 1.005-1.030 A Blood (test code = UBLD) NEGATIVE NEGATIVE N PH (test code = UPH) 6.0 4.5-8.0 A Protein (test code = UPROT) NEGATIVE NEGATIVE N Urobilinogen (test code = U UROB) 0.2 See_Comment N [Automated AUPEO!a ge] The system which generated this result transmitted reference range: 0.2. The reference range was not used to interpret this result as normal/abnormal. Nitrite (test code = UNITR) NEGATIVE NEGATIVE N Leukocyte Esterase (test code = ULEUK) NEGATIVE NEGATIVE N WBC (test code = WBCUR) 2-5 NONE,0-1,2-5,6-10 N RBC (test code = RBCUR) 0-1 0-5 A Epithial Cells (test code = U EPI) 30-40 0-10 A Mucous (test code = UMUC) Trace None Seen A Bacteria (test code = UBACT) 1+ None Seen,Trace A STLMLBETA HCG [id number] 19:45:00* Test Item Value Reference Range Interpretation Comme nts BHCG II (test code = BHCGII) 4584.0 mIU/L 0.0-4.8 H A NEW EXPANDED M ETHOD FOR BHCG WILL BE INTRODUCED ON OCTOBER 21, 2006. THE DYNAMIC RANGE OF THE TEST HAS BEEN INCREASED ALLOWING FOR FEWER DILUTUIONS, AND THE GESTATION WEEKS HAVE BEEN AGGREGATED TO ALLOW FOR EASE OF INTREPRETATION. PLEASE REFER TO THE INTERPRETATION TABLE BELOW. Beta hCG levels in non- individuals = <4.83 IU/L GESTATIONAL AGE: 1-10 weeks 63.70 - 052427.00 IU/L 11-15 weeks 43607.00 - 940129.00 IU/L 16-22 weeks 9383.80 - 44724.00 IU/L 23-40 weeks 1737.20 - 29201.00 IU/L Detection of very Low Levels of hCG does not exclude . Repeat testing after 48 Hrs. is recommended. THIS ASSAY SHOULD NOT BE USED TO DIAGNOSE ANY CONDITION UNRELATED TO . STLMLPREGNANCY TEST, Urine [id number] 19:24:00* Test Item Value Reference Range Interpretation Comme nts (Urine) (test code = PREGU) Positive If a specimen is collected by a nurse, then you MUST fill out the Collected and Collected By snyder [id number] 19:16:00* Test Item Value Reference Range Interpretation Comme nts Glucose (test code = GLU) 387 mg/dl 75-110 H BUN (test code = BUN) 11.0 mg/dl 6.0-17.0 Creatinine (test code = CREA) 0.8 mg/dl 0.4-1.2 Sodium (test code = NA) 130 mmol/l 137-145 L Potassium (test code = K) 3.8 mmol/l 3.5-5.0 Chloride (test code = CL) 101 mmol/l 98-107 CO2 (test code = CO2) 21 mmol/l 22-30 L Calcium (test code = CALC) 9.1 mg/dl 8.4-10.2 Anion Gap (test code = GAP) 8 mmol/l 5-15 Estimated Glomerular Filtration Rate (eGFR) (test code = EGFR) >60 As of 3, reported eGFR is based on the CKD-EPI 2020 equation that does not use a race coefficient. STLMLCBC WITH AUTO [id number] 18:47:00* Test Item Value Reference Range Interpretation Comme nts WBC (test code = WBC) 9.48 10\\S\\3/ul 4.80-10.80 RBC (test code = RBC) 4.78 10\\S\\6/ul 4.20-5.40 Hemoglobin (test code = HGB) 13.6 gm/dl 12.0-14.0 Hematocrit (test code = HCT) 39.0 % 37.0-47.0 MCV (test code = MCV) 81.6 fL 81.0-99.0 MCH (test code = MCH) 28.5 pg 27.0-31.0 MCHC (test code = MCHC) 34.9 gm/dl 33.0-37.0 RDW (test code = RDWVC) 12.6 % 11.5-14.5 Platelet (test code = PLT) 297 10\\S\\3/ul 130-400 MPV (test code = MPV) 9.4 fL 7.4-10.4 A "NOT MEASURED" RESULTS ARE DISPLAYED WHEN THE INSTRUMENT HAS A SUPPRESSED OR UNREPORTABLE RESULT. THIS WILL MOST OFTEN HAPPEN WITH THE MPV WHEN THERE IS AN ABNORMAL PLATELET DISTRIBUTION DUE TO A CRITICAL LOW VALUE OR PLATELET CLUMPING. THE RDW MAY BE SUPPRESSED IF THERE ARE MULTIPLE PEAKS PRESENT ON THE RBC HISTOGRAM. IN THIS CASE, A MANUAL REVIEW OF THE SLIDE WILL BE PERFORMED, AND RBC MORPHOLOGY WILL BE NOTED ON THE REPORT. NE% (test code = NE) 56.3 % 42.0-75.0 LY% (test code = LY) 35.4 % 13.0-42.0 MO% (test code = MO) 7.4 % 4.0-14.0 EO% (test code = EO) 0.3 % 1.0-5.0 L BA% (test code = BA) 0.3 % 0.0-3.0 IG% (test code = IG%) 0.3 % 0.0-0.4 STLMLParathyrin.intact [Mass/volume] in Serum or [id number] 00:00:00* Test Item Value Reference Range Interpretation Comme nts PTH (test code = PTH) 32.00 pg/mL 15.00-65.00 [facility] - Serum or [id number] 00:00:00* Test Item Value Reference Range Interpretation Comme nts iron (test code = iron) 93 ug/dL 37-145 UIBC (test code = UIBC) 313 ug/dL 112-347 TIBC (test code = TIBC) 406.0 [facility] MedicalMagnesium [Mass/volume] in Serum or [id number] 00:00:00* Test Item Value Reference Range Interpretation Comme nts magnesium (test code = magnesium) 1.9 mg/dL 1.6-2.6 [facility] MedicalCancer Ag 125 [Units/volume] in Serum or [id number] 00:00:00 * Test Item Value Reference Range Interpretation Comme nts CA-125 (test code = CA-125) 35.6 U/mL 6.4-38.1 [facility] MedicalProlactin [Mass/volume] in Serum or [id number] 00:00:00* Test Item Value Reference Range Interpretation Comme nts prolactin (test code = prolactin) 11.5 NG/mL 4.8-23.3 [facility] [id number] 00:00:00* Test Item Value Reference Range Interpretation Comme nts TSH (test code = TSH) 1.390 uIU/mL 0.178-4.530 free T4 (test code = free T4) 1.27 NG/dL 0.80-1.73 total T4 (test code = total T4) 10.7 ug/dL 4.9-11.9 T-uptake (test code = T-uptake) 1.2 tbi 0.8-1.3 [facility] MedicalProgesterone Free [Mass/volume] in Serum or [id number] 00:00:00* Test Item Value Reference Range Interpretation Comme nts progesterone (test code = progesterone) 12.00 NG/mL [facility] Cadgxdi77-Hnujxwgoqsafih D3+25-Hydroxyvitamin D2 [Mass/volume] in Serum or [id number] 00:00:00* Test Item Value Reference Range Interpretation Comme nts vitamin D III (test code = v itamin D III) 26.1 NG/mL 32.0-100.[address] [facility] MedicalFolate+Cyanocobalamin [Interpretation] in Serum or [id number] 00:00:00* Test Item Value Reference Range Interpretation Comme nts folate (test code = folate) 23.90 NG/mL 2.00-20.00 H vitamin B12 (test code = vit mejias B12) 775.0 pg/mL 200.0-900.0 [facility] [id number] 16:28:00* Test Item Value Reference Range Interpretation Comme nts Glucose (test code = GLU) 279 mg/dl 75-110 H BUN (test code = BUN) 10.0 mg/dl 6.0-17.0 Creatinine (test code = CREA) 0.5 mg/dl 0.4-1.2 Sodium (test code = NA) 135 mmol/l 137-145 L Anion Gap (test code = GAP) 10 mmol/l 5-15 Potassium (test code = K) 3.6 mmol/l 3.5-5.0 Chloride (test code = CL) 104 mmol/l 98-107 CO2 (test code = CO2) 21 mmol/l 22-30 L Calcium (test code = CALC) 8.5 mg/dl 8.4-10.2 T Protein (test code = TP) 7.0 gm/dl 5.1-8.7 Albumin (test code = ALB) 3.2 gm/dl 3.5-4.6 L A/G Ratio (test code = AGRAT) 0.8 % 1.1-2.2 L AST (SGOT) (test code = AST) 13 U/L 11-36 ALT (SGPT) (test code = ALT) 26 U/L 11-40 Alkaline Phos (test code = ALKP) 85 U/L 47-114 Bilirubin, Total (test code = TBIL) 0.6 mg/dl 0.2-1.2 Globulin (test code = GLOBU) 3.8 gm/dl 2.3-3.5 H Calcium, Corrected (test code = CALCCORR) 9.1 mg/dl 8.4-10.2 Various formulas exist for corrected serum calcium results, each yielding different values. This corrected result was based on the formula: Corrected Calcium = SerumCalcium + [0.8 * ( 4 - SerumAlbumin)] Estimated Glomerular Filtration Rate (eGFR) (test code = EGFR) >60 As of 05/19/2022, reported eGFR is based on the CKD-EPI 2020 equation that does not use a race coefficient. STLMLCBC WITH AUTO [id number] 16:06:00* Test Item Value Reference Range Interpretation Comme nts WBC (test code = WBC) 8.93 10\\S\\3/ul 4.80-10.80 RBC (test code = RBC) 4.73 10\\S\\6/ul 4.20-5.40 Hemoglobin (test code = HGB) 13.2 gm/dl 12.0-14.0 Hematocrit (test code = HCT) 38.8 % 37.0-47.0 MCV (test code = MCV) 82.0 fL 81.0-99.0 MCH (test code = MCH) 27.9 pg 27.0-31.0 MCHC (test code = MCHC) 34.0 gm/dl 33.0-37.0 RDW (test code = RDWVC) 13.1 % 11.5-14.5 Platelet (test code = PLT) 280 10\\S\\3/ul 130-400 MPV (test code = MPV) 9.3 fL 7.4-10.4 A "NOT MEASURED" RESULTS ARE DISPLAYED WHEN THE INSTRUMENT HAS A SUPPRESSED OR UNREPORTABLE RESULT. THIS WILL MOST OFTEN HAPPEN WITH THE MPV WHEN THERE IS AN ABNORMAL PLATELET DISTRIBUTION DUE TO A CRITICAL LOW VALUE OR PLATELET CLUMPING. THE RDW MAY BE SUPPRESSED IF THERE ARE MULTIPLE PEAKS PRESENT ON THE RBC HISTOGRAM. IN THIS CASE, A MANUAL REVIEW OF THE SLIDE WILL BE PERFORMED, AND RBC MORPHOLOGY WILL BE NOTED ON THE REPORT. NE% (test code = NE) 51.6 % 42.0-75.0 LY% (test code = LY) 40.0 % 13.0-42.0 MO% (test code = MO) 6.9 % 4.0-14.0 EO% (test code = EO) 0.6 % 1.0-5.0 L BA% (test code = BA) 0.2 % 0.0-3.0 IG% (test code = IG%) 0.7 % 0.0-0.4 H STLMLURINALYSIS WITH REFLEX TO [id number] 15:47:00* Test Item Value Reference Range Interpretation Comme nts Color (test code = UCOLR) Yellow Clarity (test code = UCLAR) Hazy Glucose (test code = UGLUC) >=1000 NEGATIVE A Bilirubin (test code = UBILI) NEGATIVE NEGATIVE N Ketones (test code = UKET) >=80 NEGATIVE A Specific Rarden (test code = USPGR) 1.010 1.005-1.030 A Blood (test code = UBLD) NEGATIVE NEGATIVE N PH (test code = UPH) 5.5 4.5-8.0 A Protein (test code = UPROT) NEGATIVE NEGATIVE N Urobilinogen (test code = U UROB) 0.2 See_Comment N [Automated AUPEO!a ge] The system which generated this result transmitted reference range: 0.2. The reference range was not used to interpret this result as normal/abnormal. Nitrite (test code = UNITR) NEGATIVE NEGATIVE N Leukocyte Esterase (test code = ULEUK) NEGATIVE NEGATIVE N WBC (test code = WBCUR) 2-5 NONE,0-1,2-5,6-10 N RBC (test code = RBCUR) None Seen 0-5 A Epithial Cells (test code = U EPI) 5-10 0-10 A Mucous (test code = UMUC) None Seen None Seen N Bacteria (test code = UBACT) 1+ None Seen,Trace A STLMLPREGNANCY TEST, Urine [id number] 15:36:00* Test Item Value Reference Range Interpretation Comme nts (Urine) (test code = PREGU) Positive STLMLChoriogonadotropin.beta subunit [Units/volume] in Serum or [id number] 00:00:00* Test Item Value Reference Range Interpretation Comme nts HCG (test code = HCG) 111 mIU/mL [facility] MedicalACETONE SERUM - BHB (IN HOUSE)2022-05-26 16:45:00* Test Item Value Reference Range Interpretation Comme nts ACETONE QUANTITATIVE SERUM ( test code = ACESER) 22.25 mg/dl 0.20-2.81 H [id number] 14:44:00* Test Item Value Reference Range Interpretation Comme nts Glucose (test code = GLU) 338 mg/dl 75-110 H BUN (test code = BUN) 13.0 mg/dl 6.0-17.0 Creatinine (test code = CREA) 0.5 mg/dl 0.4-1.2 Sodium (test code = NA) 130 mmol/l 137-145 L Potassium (test code = K) 4.0 mmol/l 3.5-5.0 Chloride (test code = CL) 96 mmol/l 98-107 L CO2 (test code = CO2) 23 mmol/l 22-30 Calcium (test code = CALC) 9.2 mg/dl 8.4-10.2 T Protein (test code = TP) 7.6 gm/dl 5.1-8.7 Albumin (test code = ALB) 3.5 gm/dl 3.5-4.6 A/G Ratio (test code = AGRAT) 0.9 % 1.1-2.2 L AST (SGOT) (test code = AST) 17 U/L 11-36 ALT (SGPT) (test code = ALT) 39 U/L 11-40 Alkaline Phos (test code = ALKP) 99 U/L 47-114 Bilirubin, Total (test code = TBIL) 0.8 mg/dl 0.2-1.2 Globulin (test code = GLOBU) 4.1 gm/dl 2.3-3.5 H Anion Gap (test code = GAP) 11 mmol/l 5-15 Calcium, Corrected (test code = CALCCORR) 9.6 mg/dl 8.4-10.2 Various formulas exist for corrected serum calcium results, each yielding different values. This corrected result was based on the formula: Corrected Calcium = SerumCalcium + [0.8 * ( 4 - SerumAlbumin)] Estimated Glomerular Filtration Rate (eGFR) (test code = EGFR) >60 As of 05/19/2022, reported eGFR is based on the CKD-EPI 2020 equation that does not use a race coefficient. STLMLXR CHEST AP/PA 1 [id number] 14:40:58 [facility])Name: AMINTA NINO : 1990 Sex: FXR CHEST AP/PA 1 VIEW3/ 1:58 PMOrdering Provider: GENOVEVA BRUNERIndication: [id number]: Chest painAdditional history:No additional history.Comparison: NoneFindings: Lung snyder are clear.Heart size is normal..No bone lesions are identified.EKG monitoring wires and clips minimally obscure the underlying structures.Impression: No acute cardiopulmonary process.This final report was electronically signed by Dr Carlos Lindquist MD 32:35 PMDictated By: CARLOS LINDQUISTDate: 05/26/2022 14:35STLMLURINALYSIS WITH [id number] 13:45:00* Test Item Value Reference Range Interpretation Comme nts Color (test code = UCOLR) Yellow Clarity (test code = UCLAR) Hazy Glucose (test code = UGLUC) 500 NEGATIVE A Bilirubin (test code = UBILI) NEGATIVE NEGATIVE N The value SMALL originally released by [id number] on 05/26/2022 13:45 was changed to NEGATIVE by [id number] on 05/26/2022 13:45 Ketones (test code = UKET) >=80 NEGATIVE A Specific Rarden (test code = USPGR) 1.025 1.005-1.030 A Blood (test code = UBLD) NEGATIVE NEGATIVE N PH (test code = UPH) 5.5 4.5-8.0 A Protein (test code = UPROT) NEGATIVE NEGATIVE N Urobilinogen (test code = U UROB) 0.2 See_Comment N [Automated message] The system which generated this result transmitted reference range: 0.2. The reference range was not used to interpret this result as normal/abnormal. Nitrite (test code = UNITR) NEGATIVE NEGATIVE N Leukocyte Esterase (test code = ULEUK) NEGATIVE NEGATIVE N WBC (test code = WBCUR) 0-2 NONE,0-1,2-5,6-1 0 AA RBC (test code = RBCUR) 0-2 0-5 A Epithial Cells (test code = U EPI) 20-30 0-10 A Mucous (test code = UMUC) Trace None Seen A Bacteria (test code = UBACT) Trace None Seen,Trace N Crystals Urine (test code = URCRYS) Trace Amorphous Sediment None Seen A Urine Misc (test code = UR MISC) Few Yeast None Seen A STLMLPREGNANCY TEST, Urine [id number] 13:42:00* Test Item Value Reference Range Interpretation Comme nts (Urine) (test code = PREGU) Negative STLMLCBC WITH AUTO [id number] 13:40:00* Test Item Value Reference Range Interpretation Comme nts WBC (test code = WBC) 10.84 10\\S\\3/ul 4.80-10.80 H RBC (test code = RBC) 5.36 10\\S\\6/ul 4.20-5.40 Hemoglobin (test code = HGB) 14.9 gm/dl 12.0-14.0 H Hematocrit (test code = HCT) 43.0 % 37.0-47.0 MCV (test code = MCV) 80.2 fL 81.0-99.0 L MCH (test code = MCH) 27.8 pg 27.0-31.0 MCHC (test code = MCHC) 34.7 gm/dl 33.0-37.0 RDW (test code = RDWVC) 12.6 % 11.5-14.5 Platelet (test code = PLT) 292 10\\S\\3/ul 130-400 MPV (test code = MPV) 9.8 fL 7.4-10.4 A "NOT MEASURED" RESULTS ARE DISPLAYED WHEN THE INSTRUMENT HAS A SUPPRESSED OR UNREPORTABLE RESULT. THIS WILL MOST OFTEN HAPPEN WITH THE MPV WHEN THERE IS AN ABNORMAL PLATELET DISTRIBUTION DUE TO A CRITICAL LOW VALUE OR PLATELET CLUMPING. THE RDW MAY BE SUPPRESSED IF THERE ARE MULTIPLE PEAKS PRESENT ON THE RBC HISTOGRAM. IN THIS CASE, A MANUAL REVIEW OF THE SLIDE WILL BE PERFORMED, AND RBC MORPHOLOGY WILL BE NOTED ON THE REPORT. NE% (test code = NE) 61.0 % 42.0-75.0 LY% (test code = LY) 31.2 % 13.0-42.0 MO% (test code = MO) 6.4 % 4.0-14.0 EO% (test code = EO) 0.6 % 1.0-5.0 L BA% (test code = BA) 0.4 % 0.0-3.0 IG% (test code = IG%) 0.4 % 0.0-0.4 STLMLCOMPREHENSIVE METABOLIC [id number] 17:05:00* Test Item Value Reference Range Interpretation Comme nts SODIUM (test code = NA) 136 mmol/L 137-145 L POTASSIUM (test code = K) 3.8 mmol/L 3.4-5.0 N CHLORIDE (test code = CL) 99 mmol/L 98-107 N CARBON DIOXIDE (test code = CO2) 26 mmol/L 22-30 N ANION GAP (test code = GAP) 16 GLUCOSE (test code = GLU) 328 mg/dL 74-106 H BLOOD UREA NITROGEN (test code = BUN) 5 mg/dL 7-17 L GLOMERULAR FILTRATION RATE (test code = GFR) 130 mL/min The Glomerular Filtration Rate is a calculated parameterbased on serum Creatinine, patient age and sex. GFR valuesless than 60 mL/min/1.73 square meters are indicative ofChronic Kidney Disease. Values less than 15 mL/min/1.73square meters indicate Kidney failure. The calculation forGFR is based on the CKD-EPI (2020) calculation. This formulais race indifferent and is the recommended formula for GFRby the National Kidney Foundation for Adults.The GFR will not calculate if the sex is unknown or if thepatient's age is <18 years. CREATININE (test code = CREAT) < 0.5 mg/dL 0.5-1.0 L TOTAL PROTEIN (test code = PROT) 7.9 g/dL 6.3-8.2 N "A positive bias may occur for patients taking Eltrombopag(a bone marrow stimulant used to treat thrombocytopenia andaplastic anemia)." ALBUMIN (test code = ALB) 5.1 g/dL 3.5-5.0 H CALCIUM (test code = CA) 9.0 mg/dL 8.4-10.2 N BILIRUBIN TOTAL (test code = BILT) 0.7 mg/dL 0.2-1.3 N "A positive b ias may occur for patients taking Eltrombopag(a bone marrow stimulant used to treat thrombocytopenia andaplastic anemia)." BILIRUBIN CONJUGATED (test code = BILCON) 0 mg/dL 0-0.3 N "A positive bias may occur for patients taking Eltrombopag(a bone marrow stimulant used to treat thrombocytopenia andaplastic anemia)." CONJUGATE D BILIRUBIN IS THE REPLACEMENT ASSAY FOR DIRECTBILIRUBIN. BILIRUBIN UNCONJUGATED (test code = BILUNC) 0.4 mg/dL 0-1.1 N SGOT/AST (test code = AST) 52 U/L 15-46 H SGPT/ALT (test code = ALT) 46 U/L 0-34 H ALKALINE PHOSPHATASE (test code = ALKP) 104 U/L 38-126 N INDEX HEMOLYSIS (test code = HEMINDEX) < 15 Index/DL 0-100 N HCG SERUM [id number] 17:05:00* Test Item Value Reference Range Interpretation Comme nts HCG SERUM QUAL (test code = HCGQL) NEGATIVE NEGATIVE CBC W/AUTO [id number] 16:24:00* Test Item Value Reference Range Interpretation Comme nts WHITE BLOOD CELL (test code = WBC) 8.9 x10 3/uL 5.0-12.0 N RED BLOOD CELL (test code = RBC) 5.38 x10 6/uL 4.20-5.40 N HEMOGLOBIN (test code = HGB) 15.0 g/dL 12.0-16.0 N HEMATOCRIT (test code = HCT) 43.1 % 36.0-46.0 N MEAN CELL VOLUME (test code = MCV) 80 fL 81-99 L MEAN CELL HGB (test code = MCH) 27.9 pg 27-31 N MEAN CELL HGB CONCENTRATION (test code = MCHC) 34.8 g/dL 33-37 N RED CELL DISTRIBUTION WIDTH (test code = RDW) 12.6 % 11.5-15.5 N PLATELET COUNT (test code = PLT) 250 x10 3/uL 130-400 N MEAN PLATELET VOLUME (test c ode = MPV) 9.7 fL 9.4-16.4 N NEUTROPHIL % (test code = NT%) 53.4 % 43-65 N IMMATURE GRANULOCYTE % (test code = IG%) 0.3 % 0.0-2.0 N LYMPHOCYTE % (test code = LY%) 38.9 % 20.5-45.5 N MONOCYTE % (test code = MO%) 6.4 % 5.5-11.7 N EOSINOPHIL % (test code = EO%) 0.7 % 0.9-2.9 L BASOPHIL % (test code = BA%) 0.3 % 0.2-1.0 N NUCLEATED RBC % (test code = NRBC%) 0.0 % 0-1.0 N NEUTROPHIL # (test code = NT#) 4.77 x10 3/uL 2.2-4.8 N IMMATURE GRANULOCYTE # (test code = IG#) 0.03 x10 3/uL 0-0.03 N LYMPHOCYTE # (test code = LY#) 3.48 x10 3/uL 1.3-2.9 H MONOCYTE # (test code = MO#) 0.57 x10 3/uL 0.3-0.8 N EOSINOPHIL # (test code = EO#) 0.06 x10 3/uL 0.0-0.2 N BASOPHIL # (test code = BA#) 0.03 x10 3/uL 0.0-0.1 N - [facility] W/[id number] 14:59:00 [facility] 1990 Sex: F FAX: Colette Panda [phone] [place]: St: REG Name: AMINTA NINO [facility] : 1990 Age/S: 31/F [address] Unit #: [id number] Loc: [place] [address] Phys: Colette Panda Acct: [id number] Dis Date: Status: REG ER PHONE #: [phone] Exam Date: 04/10/2022 1446 FAX #: [phone] Reason: MIKE BREAST, R/O ABSCESS EXAMS: CPT CODE: [id number] CHST W/MEDIASTINUM [id number] Bilateral breast ultrasound 04/10/2022 CLINICAL INDICATION: Breast pain COMPARISON: None LOCATION:W1 TECHNIQUE: Grayscale and color ultrasound of the bilateral breasts was performed. DISCUSSION: [place], calcification, fluid collection, or abnormal vascularity is evident within either visualized breast. IMPRESSION: Unremarkable bilateral breast ultrasound. Advise correlation with mammography toexclude nonvisualized pathology. at 9076 Reported and signed by: Bebeto Montes De Oca MD CC: Colette Panda Technologist: [facility]argavi Stout [facility] Date/Time/By: 04/10/2022 (6804) : By: [email or web address] PAGE 1 Signed Report FAX: Colette Panda [phone] [place]: [facility]: REG Name: AMINTA NINO [facility] [place] : 1990 Age/S: 31/F [address] Unit #: [id number] Loc: [place] [address] Phys: Colette Panda [facility] Acct: [id number] Dis Date: Status: REG ER PHONE #: [phone] Exam Date: 04/10/2022 1446 FAX #: [phone] Reason: MIKE BREAST, R/O ABSCESS EXAMS: CPT CODE: [id number] US CHST W/MEDIASTINUM [id number] (Continued) Orig PrintD/T: S: 04/10/2022 (1502) PAGE 2 Signed ReportCULTURE, AEROBIC 2022-03-30 08:32:00MUST order Gram Stain separately WOUNDSSpecimen: VaginalCollected: 03/27/2022 12:38 Status: Final Last Updated: 03/30/2022 08:32 (1) MUST order Gram Stain separately WOUNDS CULTURE (Final) (Final) Many Normal Genital Lali Isolated No Pathogens IsolatedSTLMLGRAM [id number] 11:28:00 Must order gram stain separately with aerobic cultSpecimen: VaginaCollected: 03/27/2022 12:38 Status: Final Last Updated: 03/28/2022 11:28 (1) Must order gram stain separately with aerobic cult GS (Final) (Final) Few Epithelial Cells No WBC's Seen Usual Urogenital Lali Rare YeastSTLMLWET [id number] 13:31:00 Specimen: VaginalCollected: 03/27/2022 12:38 Status: Final Last Updated: 03/27/2022 13:21 WM (Final) (Final) No Clue cells seen. No Trichomonas seen. No yeast cells seen. Moderate epithelial cells and WBCs .STLMLURINALYSIS WITH REFLEX TO [id number] 13:13:00* Test Item Value Reference Range Interpretation Comme nts Color (test code = UCOLR) Straw Clarity (test code = UCLAR) Hazy Glucose (test code = UGLUC) >=1000 NEGATIVE A Bilirubin (test code = UBILI) NEGATIVE NEGATIVE N Ketones (test code = UKET) >=80 NEGATIVE A Specific Rarden (test code = USPGR) 1.010 1.005-1.030 A Blood (test code = UBLD) NEGATIVE NEGATIVE N PH (test code = UPH) 5.5 4.5-8.0 A Protein (test code = UPROT) NEGATIVE NEGATIVE N Urobilinogen (test code = U UROB) 0.2 See_Comment N [Automated message] The system which generated this result transmitted reference range: 0.2. The reference range was not used to interpret this result as normal/abnormal. Nitrite (test code = UNITR) NEGATIVE NEGATIVE N Leukocyte Esterase (test code = ULEUK) NEGATIVE NEGATIVE N WBC (test code = WBCUR) 0-1 NONE,0-1,2-5,6-1 0 N RBC (test code = RBCUR) 0-1 0-5 A Epithial Cells (test code = U EPI) 0-5 0-10 A Mucous (test code = UMUC) None Seen None Seen N Bacteria (test code = UBACT) Trace None Seen,Trace N Crystals Urine (test code = URCRYS) None Seen None Seen N Urine Misc (test code = UR MISC) Rare Yeast cells None Seen A [id number] 13:11:00* Test Item Value Reference Range Interpretation Comme nts Glucose (test code = GLU) 521 mg/dl 75-110 HH BUN (test code = BUN) 8.0 mg/dl 6.0-17.0 Creatinine (test code = CREA) 0.9 mg/dl 0.4-1.2 Sodium (test code = NA) 131 mmol/l 137-145 L Potassium (test code = K) 4.1 mmol/l 3.5-5.0 Chloride (test code = CL) 98 mmol/l 98-107 CO2 (test code = CO2) 19 mmol/l 22-30 L Calcium (test code = CALC) 8.8 mg/dl 8.4-10.2 T Protein (test code = TP) 7.5 gm/dl 5.1-8.7 Albumin (test code = ALB) 3.5 gm/dl 3.5-4.6 A/G Ratio (test code = AGRAT) 0.9 % 1.1-2.2 L AST (SGOT) (test code = AST) 27 U/L 11-36 ALT (SGPT) (test code = ALT) 36 U/L 11-40 Alkaline Phos (test code = ALKP) 98 U/L 47-114 Bilirubin, Total (test code = TBIL) 0.5 mg/dl 0.2-1.2 Globulin (test code = GLOBU) 4.0 gm/dl 2.3-3.5 H Anion Gap (test code = GAP) 14 mmol/l 5-15 Calcium, Corrected (test code = CALCCORR) 9.2 mg/dl 8.4-10.2 Various formulas exist for corrected serum calcium results, each yielding different values. This corrected result was based on the formula: Corrected Calcium = SerumCalcium + [0.8 * ( 4 - SerumAlbumin)] EGFR if (test code = EGFRAA) >60 mL/min/1.73m\\ S\\2 EGFR if Non- (test code = EGFRNA) >60 mL/min/1.73m\\ S\\2 Estimated Glomerular Filtration Rate (eGFR) Reference Intervals Decision Points for 18 years and older and average body mass: >= 60 Does not exclude kidney disease. 30 - 59 Suggests moderate chronic kidney disease and indicates the need for further investigation including assessment of proteinuria and cardiovascular factors. < 30 Usually indicates a need for referral for assessment and management of chronic kidney failure. Critical values were called to PINA GOMEZ/DAGMAR by [id number] on 03/27/22 13:11 . Results were readback by PINA GOLDSTEIN.STLMLPREGNANCY TEST, Urine [id number] 12:51:00* Test Item Value Reference Range Interpretation Comme nts (Urine) (test code = PREGU) Negative STLMLCBC WITH AUTO [id number] 12:43:00* Test Item Value Reference Range Interpretation Comme nts WBC (test code = WBC) 7.74 10\\S\\3/ul 4.80-10.80 RBC (test code = RBC) 5.05 10\\S\\6/ul 4.20-5.40 Hemoglobin (test code = HGB) 14.0 gm/dl 12.0-14.0 Hematocrit (test code = HCT) 41.0 % 37.0-47.0 MCV (test code = MCV) 81.2 fL 81.0-99.0 MCH (test code = MCH) 27.7 pg 27.0-31.0 MCHC (test code = MCHC) 34.1 gm/dl 33.0-37.0 RDW (test code = RDWVC) 12.2 % 11.5-14.5 Platelet (test code = PLT) 282 10\\S\\3/ul 130-400 MPV (test code = MPV) 9.7 fL 7.4-10.4 A "NOT MEASURED" RESULTS ARE DISPLAYED WHEN THE INSTRUMENT HAS A SUPPRESSED OR UNREPORTABLE RESULT. THIS WILL MOST OFTEN HAPPEN WITH THE MPV WHEN THERE IS AN ABNORMAL PLATELET DISTRIBUTION DUE TO A CRITICAL LOW VALUE OR PLATELET CLUMPING. THE RDW MAY BE SUPPRESSED IF THERE ARE MULTIPLE PEAKS PRESENT ON THE RBC HISTOGRAM. IN THIS CASE, A MANUAL REVIEW OF THE SLIDE WILL BE PERFORMED, AND RBC MORPHOLOGY WILL BE NOTED ON THE REPORT. NE% (test code = NE) 52.4 % 42.0-75.0 LY% (test code = LY) 39.3 % 13.0-42.0 MO% (test code = MO) 6.6 % 4.0-14.0 EO% (test code = EO) 0.8 % 1.0-5.0 L BA% (test code = BA) 0.4 % 0.0-3.0 IG% (test code = IG%) 0.5 % 0.0-0.4 H STLMLUrate [Mass/volume] in Serum or [id number] 00:00:00* Test Item Value Reference Range Interpretation Comme nts uric acid (test code = uric acid) 3.1 mg/dL 2.5-7.9 [facility] MedicalEstrogen [Mass/volume] in Serum or [id number] 00:00:00* Test Item Value Reference Range Interpretation Comme nts estradiol (test code = estradiol) 85.14 pg/mL see below estriol, unconjugated (test code = estriol, unconjugated) <0.1 see below estrone (E1), serum (test co de = estrone (E1), serum) 37.5 pg/mL see below [facility] MedicalThyroglobulin Ab [Units/volume] in Serum or [id number] 00:00:00* Test Item Value Reference Range Interpretation Comme nts anti-thyroglobulin (test cod e = anti-thyroglobulin) <20 <40 [facility]2023-01-03 00:00:00* Test Item Value Reference Range Interpretation Comme nts A/G ratio (test code = A/G ratio) 1.9 ratio 1.1-2.9 albumin (test code = albumin) 4.7 g/dL 3.5-5.2 alk phos (test code = alk phos) 113 U/L 40-156 ALT (test code = ALT) 30 U/L <33 AST (test code = AST) 33 U/L <32 H bilirubin, total (test code = bilirubin, total) 0.5 mg/dL <1.2 BUN (test code = BUN) 6 mg/dL 6-20 BUN/creat ratio (test code = BUN/creat ratio) 11.3 ratio 10.0-28.0 calcium (test code = calcium) 9.7 mg/dL 8.6-10.4 chloride (test code = chloride) 90 mmol/L 96-108 L chol/HDL ratio (test code = chol/HDL ratio) 5.0 <5.8 cholesterol (test code = cholesterol) 243 mg/dL <200 H CO2 (test code = CO2) 22 mmol/L 22-29 creatinine (test code = creatinine) 0.53 mg/dL 0.49-1.02 diabetic (test code = diabetic) no E-GFR (test code = E-GFR) 128 mL/min See_Comment [Automated Chronicity] The system which generated this result transmitted reference range: >or=60. The reference range was not used to interpret this result as normal/abnormal. E-GFR, (test code = E-GFR, ) 148 mL/min See_Comment [Automated Chronicity] The system which generated this result transmitted reference range: >or=60. The reference range was not used to interpret this result as normal/abnormal. ethnicity: (test code = ethnicity:) non- globulin (test code = globulin) 2.5 g/dL 1.7-3.7 glucose (test code = glucose) 451 mg/dL 70-99 H HDL % of cholesterol (test code = HDL % of cholesterol) 20 % >14 HDL chol., direct (test code = HDL chol., direct) 49 mg/dL >50 L Hemoglobin A1c/Hemoglobin.total in Blood (test code = 4548-4) 12.6 % <5.7 H LDL/HDL ratio (test code = LDL/HDL ratio) 2.96 <3.56 WBC (test code = WBC) 9.21 x10(3)/uL 4.00-10.10 RBC (test code = RBC) 5.27 x10(6)/uL 3.58-5.19 H HGB (test code = HGB) 14.9 g/dL 11.0-15.5 HCT (test code = HCT) 44.1 % 31.5-44.8 MCV (test code = MCV) 83.7 fL 78.0-98.0 MCH (test code = MCH) 28.3 pg 25.2-32.6 MCHC (test code = MCHC) 33.8 g/dL 31.0-34.7 RDW (test code = RDW) 12.5 % 12.0-15.5 platelet count (test code = platelet count) 297 x10(3)/uL 140-425 lymphs (test code = lymphs) 36.8 % 13.7-50.9 monos (test code = monos) 6.6 % 3.0-11.9 eos (test code = eos) 0.5 % 0.0-5.0 basos (test code = basos) 0.4 % 0.0-1.0 MPV (test code = MPV) 10.5 fL 8.6-12.1 non-HDL cholesterol (test code = non-HDL cholesterol) 194 mg/dL <130 H polys (test code = polys) 55.4 % 37.1-78.1 potassium (test code = potassium) 3.9 mmol/L 3.5-5.5 race: (test code = race:) white () smoker (test code = smoker) no sodium (test code = sodium) 130 mmol/L 135-147 L total protein (test code = total protein) 7.2 g/dL 5.9-8.4 triglycerides (test code = triglycerides) 302 mg/dL <150 H VLDL, calculated (test code = VLDL, calculated) 60 mg/dL 7-32 H immature granulocytes (test code = immature granulocytes) 0.3 % 0.0-1.0 hscrp (test code = hscrp) 37.7 mg/L see below H lipoprot. (LDL) direct (test code = lipoprot. (LDL) direct) 145 mg/dL <100 H lipoprotein-A (test code = lipoprotein-A) <6.[address] [facility] MedicalThyroperoxidase Ab [Units/volume] in Serum or [id number] 00:00:00* Test Item Value Reference Range Interpretation Comme nts anti-tpo Ab (test code = anti-tpo Ab) <10 <35 [id number] 23:55:00* Test Item Value Reference Range Interpretation Comme nts Glucose (test code = GLU) 576 mg/dl 75-110 HH BUN (test code = BUN) 11.0 mg/dl 6.0-17.0 Creatinine (test code = CREA) 0.8 mg/dl 0.4-1.2 Sodium (test code = NA) 126 mmol/l 137-145 L Potassium (test code = K) 3.8 mmol/l 3.5-5.0 Chloride (test code = CL) 93 mmol/l 98-107 L CO2 (test code = CO2) 25 mmol/l 22-30 Calcium (test code = CALC) 9.7 mg/dl 8.4-10.2 T Protein (test code = TP) 8.3 gm/dl 5.1-8.7 Albumin (test code = ALB) 3.7 gm/dl 3.5-4.6 A/G Ratio (test code = AGRAT) 0.8 % 1.1-2.2 L AST (SGOT) (test code = AST) 11 U/L 11-36 ALT (SGPT) (test code = ALT) 26 U/L 11-40 Alkaline Phos (test code = ALKP) 111 U/L 47-114 Bilirubin, Total (test code = TBIL) 0.5 mg/dl 0.2-1.2 Globulin (test code = GLOBU) 4.6 gm/dl 2.3-3.5 H Anion Gap (test code = GAP) 8 mmol/l 5-15 Calcium, Corrected (test code = CALCCORR) 9.9 mg/dl 8.4-10.2 Various formulas exist for corrected serum calcium results, each yielding different values. This corrected result was based on the formula: Corrected Calcium = SerumCalcium + [0.8 * ( 4 - SerumAlbumin)] EGFR if (test code = EGFRAA) >60 mL/min/1.73m\\ S\\2 EGFR if Non- (test code = EGFRNA) >60 mL/min/1.73m\\ S\\2 Estimated Glomerular Filtration Rate (eGFR) Reference Intervals Decision Points for 18 years and older and average body mass: >= 60 Does not exclude kidney disease. 30 - 59 Suggests moderate chronic kidney disease and indicates the need for further investigation including assessment of proteinuria and cardiovascular factors. < 30 Usually indicates a need for referral for assessment and management of chronic kidney failure. Critical values were called to Kathy Bernal RN by [id number] on 01/01/22 23:55 . Results were read back by Kathy Bernal RN.STLMLURINALYSIS WITH MICROSCOPIC 2022-01-01 23:28:00* Test Item Value Reference Range Interpretation Comme nts Color (test code = UCOLR) Lt. Yellow Clarity (test code = UCLAR) Clear Glucose (test code = UGLUC) >=1000 NEGATIVE A Bilirubin (test code = UBILI) NEGATIVE NEGATIVE N Ketones (test code = UKET) TRACE NEGATIVE A Specific Rarden (test code = USPGR) <=1.005 1.005-1.030 A Blood (test code = UBLD) TRACE-INTACT NEGATIVE A PH (test code = UPH) 5.5 4.5-8.0 A Protein (test code = UPROT) NEGATIVE NEGATIVE N Urobilinogen (test code = U UROB) 0.2 See_Comment N [Automated AUPEO!a ge] The system which generated this result transmitted reference range: 0.2. The reference range was not used to interpret this result as normal/abnormal. Nitrite (test code = UNITR) NEGATIVE NEGATIVE N Leukocyte Esterase (test code = ULEUK) NEGATIVE NEGATIVE N WBC (test code = WBCUR) 10-12 NONE,0-1,2-5,6-10 AA RBC (test code = RBCUR) 4-6 0-5 A Epithial Cells (test code = U EPI) 10-20 0-10 A Mucous (test code = UMUC) None Seen None Seen N Bacteria (test code = UBACT) None Seen None Seen,Trace N Crystals Urine (test code = URCRYS) None Seen None Seen N Urine Casts (test code = UR CAST) None Seen None Seen N Urine Misc (test code = UR MISC) None Seen None Seen N STLMLCBC WITH AUTO [id number] 23:19:00* Test Item Value Reference Range Interpretation Comme nts WBC (test code = WBC) 11.77 10\\S\\3/ul 4.80-10.80 H RBC (test code = RBC) 5.27 10\\S\\6/ul 4.20-5.40 Hemoglobin (test code = HGB) 14.5 gm/dl 12.0-14.0 H Hematocrit (test code = HCT) 41.6 % 37.0-47.0 MCV (test code = MCV) 78.9 fL 81.0-99.0 L MCH (test code = MCH) 27.5 pg 27.0-31.0 MCHC (test code = MCHC) 34.9 gm/dl 33.0-37.0 RDW (test code = RDWVC) 12.4 % 11.5-14.5 Platelet (test code = PLT) 309 10\\S\\3/ul 130-400 MPV (test code = MPV) 9.6 fL 7.4-10.4 A "NOT MEASURED" RESULTS ARE DISPLAYED WHEN THE INSTRUMENT HAS A SUPPRESSED OR UNREPORTABLE RESULT. THIS WILL MOST OFTEN HAPPEN WITH THE MPV WHEN THERE IS AN ABNORMAL PLATELET DISTRIBUTION DUE TO A CRITICAL LOW VALUE OR PLATELET CLUMPING. THE RDW MAY BE SUPPRESSED IF THERE ARE MULTIPLE PEAKS PRESENT ON THE RBC HISTOGRAM. IN THIS CASE, A MANUAL REVIEW OF THE SLIDE WILL BE PERFORMED, AND RBC MORPHOLOGY WILL BE NOTED ON THE REPORT. NE% (test code = NE) 52.4 % 42.0-75.0 LY% (test code = LY) 39.8 % 13.0-42.0 MO% (test code = MO) 6.5 % 4.0-14.0 EO% (test code = EO) 0.5 % 1.0-5.0 L BA% (test code = BA) 0.3 % 0.0-3.0 IG% (test code = IG%) 0.5 % 0.0-0.4 H STLMLPREGNANCY TEST, Urine [id number] 23:12:00* Test Item Value Reference Range Interpretation Comme nts (Urine) (test code = PREGU) Negative If a specimen is collected by a nurse, then you MUST fill out the Collected and Collected By snyder [facility] [id number] 00:00:00* Test Item Value Reference Range Interpretation Comme nts A/G ratio (test code = A/G ratio) 2.1 ratio 1.1-2.9 albumin (test code = albumin) 4.2 g/dL 3.5-5.2 alk phos (test code = alk phos) 93 U/L 40-156 ALT (test code = ALT) 28 U/L <33 AST (test code = AST) 19 U/L <32 bilirubin, total (test code = bilirubin, total) 0.4 mg/dL <1.2 BUN (test code = BUN) 16 mg/dL 6-20 BUN/creat ratio (test code = BUN/creat ratio) 28.6 ratio 10.0-28.0 H calcium (test code = calcium) 9.1 mg/dL 8.6-10.4 chloride (test code = chloride) 101 mmol/L 96-108 chol/HDL ratio (test code = chol/HDL ratio) 4.2 <5.8 cholesterol (test code = cholesterol) 201 mg/dL <200 H CO2 (test code = CO2) 20 mmol/L 22-29 L creatinine (test code = creatinine) 0.56 mg/dL 0.49-1.02 diabetic (test code = diabetic) no E-GFR (test code = E-GFR) 126 mL/min See_Comment [Automated AUPEO!a [facility]] The system which generated this result transmitted reference range: >or=60. The reference range was not used to interpret this result as normal/abnormal. E-GFR, (test code = E-GFR, ) 146 mL/min See_Comment [Automated AUPEO!a ge] The system which generated this result transmitted reference range: >or=60. The reference range was not used to interpret this result as normal/abnormal. ethnicity: (test code = ethnicity:) non- globulin (test code = globulin) 2.0 g/dL 1.7-3.7 glucose (test code = glucose) 327 mg/dL 70-99 H HDL % of cholesterol (test code = HDL % of cholesterol) 24 % >14 HDL chol., direct (test code = HDL chol., direct) 48 mg/dL >50 L Hemoglobin A1c/Hemoglobin.total in Blood (test code = 4548-4) 11.4 % <5.7 H LDL/HDL ratio (test code = LDL/HDL ratio) 2.46 <3.56 WBC (test code = WBC) 6.99 x10(3)/uL 4.00-10.10 RBC (test code = RBC) 5.00 x10(6)/uL 3.58-5.19 HGB (test code = HGB) 13.7 g/dL 11.0-15.5 HCT (test code = HCT) 42.7 % 31.5-44.8 MCV (test code = MCV) 85.4 fL 78.0-98.0 MCH (test code = MCH) 27.4 pg 25.2-32.6 MCHC (test code = MCHC) 32.1 g/dL 31.0-34.7 RDW (test code = RDW) 13.1 % 12.0-15.5 platelet count (test code = platelet count) 263 x10(3)/uL 140-425 lymphs (test code = lymphs) 43.2 % 13.7-50.9 monos (test code = monos) 8.0 % 3.0-11.9 eos (test code = eos) 0.7 % 0.0-5.0 basos (test code = basos) 0.4 % 0.0-1.0 MPV (test code = MPV) 10.4 fL 8.6-12.1 non-HDL cholesterol (test code = non-HDL cholesterol) 153 mg/dL <130 H polys (test code = polys) 47.6 % 37.1-78.1 potassium (test code = potassium) 4.0 mmol/L 3.5-5.5 race: (test code = race:) white () smoker (test code = smoker) no sodium (test code = sodium) 137 mmol/L 135-147 total protein (test code = total protein) 6.2 g/dL 5.9-8.4 triglycerides (test code = triglycerides) 261 mg/dL <150 H VLDL, calculated (test code = VLDL, calculated) 52 mg/dL 7-32 H immature granulocytes (test code = immature granulocytes) 0.1 % 0.0-1.0 hscrp (test code = hscrp) 27.4 mg/L see below H lipoprot. (LDL) direct (test code = lipoprot. (LDL) direct) 118 mg/dL <100 H lipoprotein-A (test code = lipoprotein-A) <6.0 <30.0 [facility] MedicalEstrogen [Mass/volume] in Serum or [id number] 00:00:00* Test Item Value Reference Range Interpretation Comme nts estradiol (test code = estradiol) 27.04 pg/mL see below estriol, unconjugated (test code = estriol, unconjugated) <0.1 see below estrone (E1), serum (test co de = estrone (E1), serum) 10.5 pg/mL see below [facility] MedicalThyroglobulin Ab [Units/volume] in Serum or [id number] 00:00:00* Test Item Value Reference Range Interpretation Comme nts anti-thyroglobulin (test cod e = anti-thyroglobulin) <20 <40 [facility] MedicalUrate [Mass/volume] in Serum or [id number] 00:00:00* Test Item Value Reference Range Interpretation Comme nts uric acid (test code = uric acid) 2.8 mg/dL 2.5-7.9 [facility] MedicalThyroperoxidase Ab [Units/volume] in Serum or [id number] 00:00:00* Test Item Value Reference Range Interpretation Comme nts anti-tpo Ab (test code = anti-tpo Ab) <10 <35 [facility] MedicalUrinalysis macro (dipstick) panel - [id number] 15:47:00* Test Item Value Reference Range Interpretation Comme nts Leukocytes (test code = Leukocytes) Negative Nitrite (test code = Nitrite) negative Urobilinogen (test code = Urobilinogen) Normal Protein (test code = Protein) Negative pH (test code = pH) 5.0 Blood (test code = Blood) Small Specific Rarden (test code = Specific Rarden) 1.010 Ketone (test code = Ketone) Moderate Bilirubin (test code = Bilirubin) Negative Glucose (test code = Glucose) 2000+ Appearance (test code = Appearance) Clear Color (test code = Color) Pale Yellow [facility] MedicalUrate [Mass/volume] in Serum or [id number] 00:00:00* Test Item Value Reference Range Interpretation Comme nts uric acid (test code = uric acid) 5.5 mg/dL 2.5-7.9 [facility] [id number] 00:00:00* Test Item Value Reference Range Interpretation Comme nts A/G ratio (test code = A/G ratio) 1.6 ratio 1.1-2.9 albumin (test code = albumin) 4.5 g/dL 3.5-5.2 alk phos (test code = alk phos) 107 U/L 40-156 ALT (test code = ALT) 23 U/L <33 AST (test code = AST) 20 U/L <32 bilirubin, total (test code = bilirubin, total) 0.7 mg/dL <1.2 BUN (test code = BUN) 17 mg/dL 6-20 BUN/creat ratio (test code = BUN/creat ratio) 18.7 ratio 10.0-28.0 calcium (test code = calcium) 10.3 mg/dL 8.6-10.4 chloride (test code = chloride) 103 mmol/L 96-108 chol/HDL ratio (test code = chol/HDL ratio) 4.6 <5.8 cholesterol (test code = cholesterol) 225 mg/dL <200 H CO2 (test code = CO2) 22 mmol/L 22-29 creatinine (test code = creatinine) 0.91 mg/dL 0.49-1.02 diabetic (test code = diabetic) no E-GFR (test code = E-GFR) 86 mL/min See_Comment [Automated AUPEO![facility]] The system which generated this result transmitted reference range: >or=60. The reference range was not used to interpret this result as normal/abnormal. E-GFR, (test code = E-GFR, ) 100 mL/min See_Comment [Automated Chronicity] The system which generated this result transmitted reference range: >or=60. The reference range was not used to interpret this result as normal/abnormal. ethnicity: (test code = ethnicity:) non- globulin (test code = globulin) 2.8 g/dL 1.7-3.7 glucose (test code = glucose) 135 mg/dL 70-99 H HDL % of cholesterol (test code = HDL % of cholesterol) 22 % >14 HDL chol., direct (test code = HDL chol., direct) 49 mg/dL >50 L Hemoglobin A1c/Hemoglobin.total in Blood (test code = 4548-4) 9.9 % <5.7 H LDL/HDL ratio (test code = LDL/HDL ratio) 2.86 <3.56 WBC (test code = WBC) 11.44 x10(3)/uL 4.00-10.10 H RBC (test code = RBC) 5.48 x10(6)/uL 3.58-5.19 H HGB (test code = HGB) 15.2 g/dL 11.0-15.5 HCT (test code = HCT) 45.2 % 31.5-44.8 H MCV (test code = MCV) 82.5 fL 78.0-98.0 MCH (test code = MCH) 27.7 pg 25.2-32.6 MCHC (test code = MCHC) 33.6 g/dL 31.0-34.7 RDW (test code = RDW) 12.9 % 12.0-15.5 platelet count (test code = platelet count) 344 x10(3)/uL 140-425 lymphs (test code = lymphs) 20.3 % 13.7-50.9 monos (test code = monos) 9.0 % 3.0-11.9 eos (test code = eos) 0.3 % 0.0-5.0 basos (test code = basos) 0.4 % 0.0-1.0 MPV (test code = MPV) 10.2 fL 8.6-12.1 non-HDL cholesterol (test code = non-HDL cholesterol) 176 mg/dL <130 H polys (test code = polys) 69.6 % 37.1-78.1 potassium (test code = potassium) 4.1 mmol/L 3.5-5.5 race: (test code = race:) white () smoker (test code = smoker) no sodium (test code = sodium) 141 mmol/L 135-147 total protein (test code = total protein) 7.3 g/dL 5.9-8.4 triglycerides (test code = triglycerides) 176 mg/dL <150 H VLDL, calculated (test code = VLDL, calculated) 35 mg/dL 7-32 H immature granulocytes (test code = immature granulocytes) 0.4 % 0.0-1.0 hscrp (test code = hscrp) 63.9 mg/L see below H lipoprot. (LDL) direct (test code = lipoprot. (LDL) direct) 140 mg/dL <100 H lipoprotein-A (test code = lipoprotein-A) <6.0 <30.0 [facility] MedicalEstrogen [Mass/volume] in Serum or [id number] 00:00:00* Test Item Value Reference Range Interpretation Comme nts estradiol (test code = estradiol) 45.45 pg/mL see below estriol, unconjugated (test code = estriol, unconjugated) <0.1 see below estrone (E1), serum (test co de = estrone (E1), serum) 22.6 pg/mL see below [facility] MedicalThyroperoxidase Ab [Units/volume] in Serum or [id number] 00:00:00* Test Item Value Reference Range Interpretation Comme nts anti-tpo Ab (test code = anti-tpo Ab) <10 <35 [facility] MedicalThyroglobulin Ab [Units/volume] in Serum or [id number] 00:00:00* Test Item Value Reference Range Interpretation Comme nts anti-thyroglobulin (test cod e = anti-thyroglobulin) <20 <40 [facility] MedicalCancer Ag 125 [Units/volume] in Serum or [id number] 00:00:00 * Test Item Value Reference Range Interpretation Comme nts CA-125 (test code = CA-125) 18.1 U/mL 6.4-38.1 [facility] MedicalProlactin [Mass/volume] in Serum or [id number] 00:00:00* Test Item Value Reference Range Interpretation Comme nts prolactin (test code = prolactin) 9.8 NG/mL 4.8-23.3 [facility] Medical[facility]esium [Mass/volume] in Serum or [id number] 00:00:00* Test Item Value Reference Range Interpretation Comme nts magnesium (test code = magnesium) 1.8 mg/dL 1.6-2.6 [facility] MedicalIron and Iron binding capacity panel - Serum or [id number] 00:00:00* Test Item Value Reference Range Interpretation Comme nts iron (test code = iron) 28 ug/dL 37-145 L UIBC (test code = UIBC) 338 ug/dL 112-347 TIBC (test code = TIBC) 366.0 [facility] [Mass/volume] in Serum or [id number] 00:00:00* Test Item Value Reference Range Interpretation Comme nts PTH (test code = PTH) 14.36 pg/mL 15.00-65.[address] [facility] MedicalFolate+Cyanocobalamin [Interpretation] in Serum or [id number] 00:00:00* Test Item Value Reference Range Interpretation Comme nts folate (test code = folate) 12.28 NG/mL 2.00-20.00 vitamin B12 (test code = vit mejias B12) 689.7 pg/mL 200.0-900.0 [facility]ium[facility] Free [Mass/volume] in Serum or [id number] 00:00:00* Test Item Value Reference Range Interpretation Comme nts progesterone (test code = progesterone) 0.09 NG/mL [facility] Wnoneks15-Ogezqdmacignut D3+25-Hydroxyvitamin D2 [Mass/volume] in Serum or [id number] 00:00:00* Test Item Value Reference Range Interpretation Comme nts vitamin D (test code = vitamin D) 19.6 NG/mL 32.0-100.[address] [facility] Medicalthyroid panel, [id number] 00:00:00* Test Item Value Reference Range Interpretation Comme nts TSH (test code = TSH) 1.380 uIU/mL 0.178-4.530 free T4 (test code = free T4) 1.25 NG/dL 0.80-1.73 total T4 (test code = total T4) 9.8 ug/dL 4.9-11.9 T-uptake (test code = T-uptake) 1.1 tbi 0.8-1.3 [id number] 03:49:00* Test Item Value Reference Range Interpretation Comme nts LITHIUM (test code = LITH) < 0.2 mmol/L 0.6-1.2 L Drugs identified in Urine by Screen [id number] 00:00:00* Test Item Value Reference Range Interpretation Comments none prescribed ur CMP (test code = none prescribed ur CMP) none detected See_Comment [Automated message] The system which generated this result transmitted reference range: >=0. The reference range was not used to interpret this result as normal/abnormal. biodetect (test code = biodetect) expected drug-drug interaction #1 (test code = drug-drug interaction #1) positive drug-drug interaction profile (test code = drug-drug interaction profile) >=10 See_Comment [Automated message] The system which generated this result transmitted reference range: >=10. The reference range was not used to interpret this result as normal/abnormal. azithromycin (test code = azithromycin) See_Comment [Automated message] The system which generated this result transmitted reference range: >=10. The reference range was not used to interpret this result as normal/abnormal. ondansetron (test code = ondansetron) See_Comment [Automated message] The system which generated this result transmitted reference range: >=10. The reference range was not used to interpret this result as normal/abnormal. Buprenorphine [Presence] in Urine by Confirmatory method (test code = 40599-4) <1 See_Comment [Automated message] The system which generated this result transmitted reference range: >=1. The reference range was not used to interpret this result as normal/abnormal. Amphetamines [Presence] in Urine by Confirmatory method (test code = 26771-2) <100 See_Comment [Automated message] The system which generated this result transmitted reference range: >=100. The reference range was not used to interpret this result as normal/abnormal. Benzodiazepines [Presence] in Urine by Confirmatory method (test code = 13033-1) <50 See_Comment [Automated message] The system which generated this result transmitted reference range: >=50. The reference range was not used to interpret this result as normal/abnormal. gabapentinpregabalin ur ql cfm (test code = gabapentinpregabalin ur ql cfm) <5 See_Comment [Automated message] The system which generated this result transmitted reference range: >=5. The reference range was not used to interpret this result as normal/abnormal. Cocaine [Presence] in Urine by Confirmatory method (test code = 80592-2) <50 See_Comment [Automated message] The system which generated this result transmitted reference range: >=50. The reference range was not used to interpret this result as normal/abnormal. Opiates [Presence] in Urine by Confirmatory method (test code = 14944-7) <100 See_Comment [Automated message] The system which generated this result transmitted reference range: >=100. The reference range was not used to interpret this result as normal/abnormal. 6-Monoacetylmorphine (6-RACIEL) [Presence] in Urine by Confirmatory method (test code = 23964-5) <10 See_Comment [Automated message] The system which generated this result transmitted reference range: >=10. The reference range was not used to interpret this result as normal/abnormal. Methadone [Presence] in Urine by Confirmatory method (test code = 59846-0) <200 See_Comment [Automated message] The system which generated this result transmitted reference range: >=200. The reference range was not used to interpret this result as normal/abnormal. Meperidine [Presence] in Urine by Confirmatory method (test code = 71142-1) <100 See_Comment [Automated message] The system which generated this result transmitted reference range: >=100. The reference range was not used to interpret this result as normal/abnormal. fentaNYL+Norfentanyl [Presence] in Urine by Confirmatory method (test code = 02113-5) <5 See_Comment [Automated message] The system which generated this result transmitted reference range: >=5. The reference range was not used to interpret this result as normal/abnormal. Carisoprodol+Meprobamate [Presence] in Urine by Screen method (test code = 61374-3) <200 See_Comment [Automated message] The system which generated this result transmitted reference range: >=200. The reference range was not used to interpret this result as normal/abnormal. traMADol [Presence] in Urine by Confirmatory method (test code = 02607-2) <100 See_Comment [Automated message] The system which generated this result transmitted reference range: >=100. The reference range was not used to interpret this result as normal/abnormal. pH of Urine (test code = 2756-5) 5.69 4.5-9.0 Creatinine [Mass/volume] in Urine (test code = 2161-8) 70.5 mg/dL 20-370 Ethanol [Presence] in Urine by Screen method (test code = 62342-0) <10 See_Comment [Automated message] The system which generated this result transmitted reference range: >=10. The reference range was not used to interpret this result as normal/abnormal. Barbiturates [Presence] in Urine by Screen method (test code = 02894-3) <200 See_Comment [Automated message] The system which generated this result transmitted reference range: >=200. The reference range was not used to interpret this result as normal/abnormal. [facility] [id number] 23:14:00* Test Item Value Reference Range Interpretation Comme nts SODIUM (test code = NA) 140 mmol/L 137-145 N POTASSIUM (test code = K) 3.8 mmol/L 3.4-5.0 N CHLORIDE (test code = CL) 103 mmol/L 98-107 N CARBON DIOXIDE (test code = CO2) 22 mmol/L 22-30 N ANION GAP (test code = GAP) 19 GLUCOSE (test code = GLU) 213 mg/dL 74-106 H BLOOD UREA NITROGEN (test code = BUN) 20 mg/dL 7-17 H GLOMERULAR FILTRATION RATE (test code = GFR) 91 >60 The estimated glomerular filtration rate is computed usingpatient race, age (>18), sex, and serum creatinine. If anyof the needed data elements are missing the Laboratory cannot compute an estimation of the glomerular filtration rate. CREATININE (test code = CREAT) 0.8 mg/dL 0.5-1.0 N TOTAL PROTEIN (test code = PROT) 8.3 g/dL 6.3-8.2 H "A positive bias may occur for patients taking Eltrombopag(a bone marrow stimulant used to treat thrombocytopenia andaplastic anemia)." ALBUMIN (test code = ALB) 4.6 g/dL 3.5-5.0 N CALCIUM (test code = CA) 10.1 mg/dL 8.4-10.2 N BILIRUBIN TOTAL (test code = BILT) 0.7 mg/dL 0.2-1.3 N "A positive b ias may occur for patients taking Eltrombopag(a bone marrow stimulant used to treat thrombocytopenia andaplastic anemia)." BILIRUBIN CONJUGATED (test code = BILCON) 0 mg/dL 0-0.3 N "A positive bias may occur for patients taking Eltrombopag(a bone marrow stimulant used to treat thrombocytopenia andaplastic anemia)." CONJUGATE D BILIRUBIN IS THE REPLACEMENT ASSAY FOR DIRECTBILIRUBIN. BILIRUBIN UNCONJUGATED (test code = BILUNC) 0.5 mg/dL 0-1.1 N SGOT/AST (test code = AST) 32 U/L 15-46 N SGPT/ALT (test code = ALT) 27 U/L 0-34 N ALKALINE PHOSPHATASE (test code = ALKP) 103 U/L 38-126 N UA RFLX MICR CULT IF [id number] 22:37:00* Test Item Value Reference Range Interpretation Comme nts UA COLOR (test code = COLU) Yellow Yellow UA APPEARANCE (test code = APPU) Slightly-Cloudy Clear UA GLUCOSE DIPSTICK (test code = DGLUU) >=500 (3+) MG/DL Negative A UA BILIRUBIN DIPSTICK (test code = BILU) Negative Negative UA KETONE DIPSTICK (test code = KETU) Trace mg/dL Negative A UA SPECIFIC GRAVITY (test code = SGU) 1.014 <1.030 UA BLOOD DIPSTICK (test code = NICOLÁS) 1+ Negative A UA PH DIPSTICK (test code = JEB) 6.0 5.0-8.0 UA PROTEIN DIPSTICK (test code = PROU) 30 (1+) mg/dL Negative A UA UROBILINOGEN DIPSTICK (test code = URO) Negative mg/dL Negative [Automated message] The system which generated this result transmitted reference range: <=1.0. The reference range was not used to interpret this result as normal/abnormal. UA NITRITE DIPSTICK (test code = UGO) Negative Negative UA LEUKOCYTE ESTERASE DIPSTICK (test code = LEUU) 2+ Negative A UA WBC (test code = WBCUR) 6-10 /HPF See_Comment A <10 WBC/HPF = PYURIA ABSENT URINE CULTURE NOT INDICATED [Automated message] The system which generated this result transmitted reference range: <4-5. The reference range was not used to interpret this result as normal/abnormal. UA RBC (test code = RBCU) 0-3 /HPF See_Comment [Automated message] The system which generated this result transmitted reference range: <4-5. The reference range was not used to interpret this result as normal/abnormal. UA BACTERIA (test code = BACU) None /HPF None-Rare UA SQUAMOUS CELLS (test code = SQU) 0-5 (RARE) /HPF See_Comment [Automated message] The system which generated this result transmitted reference range: 0-5 (RARE). The reference range was not used to interpret this result as normal/abnormal. UA MUCUS (test code = MUCU) Rare /LPF See_Comment A [Automated message] The system which generated this result transmitted reference range: <Rare. The reference range was not used to interpret this result as normal/abnormal. Indication for culture: Dysuria/FrequencySOURCE OF URINE: VOIDEDUR HCG QUAL 2021-03-18 22:37:00* Test Item Value Reference Range Interpretation Comme nts UR HCG QUAL (test code = HCGQLU) NEGATIVE NEGATIVE Indication for culture: Dysuria/FrequencySOURCE OF URINE: VOIDEDCBC W/AUTO DIFF 2021-03-18 22:25:00* Test Item Value Reference Range Interpretation Comme nts WHITE BLOOD CELL (test code = WBC) 17.1 x10 3/uL 5.0-12.0 H RED BLOOD CELL (test code = RBC) 5.44 x10 6/uL 4.20-5.40 H HEMOGLOBIN (test code = HGB) 15.1 g/dL 12.0-16.0 N HEMATOCRIT (test code = HCT) 43.5 % 36.0-46.0 N MEAN CELL VOLUME (test code = MCV) 80 fL 81-99 L MEAN CELL HGB (test code = MCH) 27.8 pg 27-31 N MEAN CELL HGB CONCENTRATION (test code = MCHC) 34.7 g/dL 33-37 N RED CELL DISTRIBUTION WIDTH (test code = RDW) 12.9 % 11.5-15.5 N PLATELET COUNT (test code = PLT) 337 x10 3/uL 130-400 N MEAN PLATELET VOLUME (test code = MPV) 9.5 fL 9.4-16.4 N NEUTROPHIL % (test code = NT%) 68.5 % 43-65 H IMMATURE GRANULOCYTE % (test code = IG%) 0.4 % 0.0-2.0 N LYMPHOCYTE % (test code = LY%) 21.9 % 20.5-45.5 N MONOCYTE % (test code = MO%) 8.6 % 5.5-11.7 N EOSINOPHIL % (test code = EO%) 0.3 % 0.9-2.9 L BASOPHIL % (test code = BA%) 0.3 % 0.2-1.0 N NUCLEATED RBC % (test code = NRBC%) 0.0 % 0-1.0 N NEUTROPHIL # (test code = NT#) 11.71 x10 3/uL 2.2-4.8 H IMMATURE GRANULOCYTE # (test code = IG#) 0.06 x10 3/uL 0-0.03 H LYMPHOCYTE # (test code = LY#) 3.74 x10 3/uL 1.3-2.9 H MONOCYTE # (test code = MO#) 1.47 x10 3/uL 0.3-0.8 H EOSINOPHIL # (test code = EO#) 0.05 x10 3/uL 0.0-0.2 N BASOPHIL # (test code = BA#) 0.05 x10 3/uL 0.0-0.1 N Notes Date/Time Note Provider Source 2024-05-02 12:46:12 Called pt, discussed pap smear and poc. Verbalized understanding. Anna Quintana RN 05/02/24 12:46 PM [facility] 2024-05-02 08:17:58 Called pt, no answer. Left VM. Esther Willis LVN 05/02/2024 8:18 AM BARREL FINISHER Esther Willis [facility] 2024-05-01 16:42:40 Please notify the patient of pap results: NIL pap +HPV, she will need repeat pap in 1 year VAIBHAV Maciel 05/01/2024 4:43 PM [facility] 2024-04-26 08:20:19 Patient informed of results and new orders, verbalized understanding. A Villasenor INFORMATION ASSURANCE [facility] 2024-04-25 16:34:19 Called pt, daughter answered phone and stated she is taking a shower right now. Will call back Esther Willis LVN 04/25/2024 4:34 PM BARREL FINISHER Esther GARCIAN [facility] 2024-04-25 16:21:00 Please notify the patient that yeast was identified. Meds have been sent to her pharmacy on file, please advise the patient to complete the meds as prescribed, and practice good perineal hygiene. VAIBHAV Maciel 04/25/2024 4:21 PM [facility] 2024-03-22 11:15:33 PA evelyn Valladaresshanna completed Harrell [id number] Pending determination [facility] Temo Lee RN [facility] 2024-03-22 11:09:04 Addended by: SOFIA MERCHANT RPH on: 03/22/2024 11:09 AM Modules accepted: Orders [facility] 2024-03-22 10:23:58 CLINICAL PHARMACY ENDOCRINOLOGY VISIT- 03/22/24 DATE: 03/22/24 Subjective: Aminta Nino is a 33 year old female referred to PharmD by CHELO Cline for medication management of type 2 diabetes. At last visit, patient was instructed to: Continue Ozempic 2 mg weekly Continue Lantus Solostar (insulin glargine) 15 units daily at bedtime Continue Humalog Kwikpen (insulin lispro) 9 units 3x/day with meals If BG 80-120 mg/dL or less than half a meal, give half dose If BG <80 mg/dL, hold dose Continue metformin 500 mg with breakfast and dinner At today's clinical pharmacy visit, patient states that she was out of her insulin for a month due to issues with her insurance. She restarted both her insulins a few days ago. She states that on Tuesday, she was in the hospital due to a BG of 658 mg/dL. Since resuming her insulin, patient reports blood sugars in the 200s. She takes Lantus as prescribed and Humalog 9 units with each meal. She reports eating 4 meals a day. Patient denies appetite suppression with Ozempic and denies GI side effects. Patient reports taking an extra 9 units of Humalog about 3-4 times a week when BG >300 mg/dL. Patient is tolerating metformin well. 1. DIABETES Patient reports 15 years duration of Type 2 diabetes. Symptoms of hypoglycemia: [-] Dizziness [-] Fatigue [-] Sweating [-] Nervousness [-] Tachycardia Symptoms of hyperglycemia: [-] Polyuria [-] Polydipsia [-] Polyphagia [-] Visual changes Complications of diabetes: Macrovascular: [-] FL [-] CABG/PCI/other re-vascularization procedure Microvascular [-] Retinopathy (last eye exam never done) [-] Nephropathy [-] Neuropathy - peripherally (last foot exam 10/28/23) Current DM medication regimen: Lantus Solostar (insulin glargine) 15 units daily at bedtime Humalog Kwikpen (insulin lispro) 9 units 3x/day with meals Patient eats 4 meals a day so takes it 4 times a day Ozempic (semaglutide) 2 mg weekly Metformin 500 mg 2x/day with breakfast and dinner Med compliance [-] patient takes extra Humalog if BG > 300 mg/dL; was out of insulin for 1 month due to insurance issues Previous treatment attempts/failures/adverse reactions: insulin pump (stopped d/t not going back for follow-up visits for refills) Medication Limitations: n/a This visit's SMBG reading: (based on recall) AM (fasting): 200-210s Objective: Past Medical History: Diagnosis Date ADHD (attention deficit hyperactivity disorder) Bleeding after intercourse 07/20/2016 BV (bacterial vaginosis) 08/12/2015 Diabetes mellitus Hypertension ODD (oppositional defiant disorder) Pap smear abnormality of cervix PTSD (post-traumatic stress disorder) Thyroid disease Prior to Admission medications Medication Sig Start Date Authorizing Provider amLODIPine 10 mg tablet Take 1 tablet by mouth in the morning. 02/03/24 Helen Truong AGPCNP dexAMETHasone 1 mg tablet Take 1 tab at 11 Pm and come in for blood tests at 8 am next morning 02/03/24 Helen Truong AGPCNP Insulin Glargine (LANTUS SOLOSTAR U-100 INSULIN) 100 unit/mL (3 mL) injection inject 15 Units under the skin at bedtime. For Lantus: take HALF dose if or if blood glucose 80 - 120 mg/dL, HOLD if less than 80. 02/03/24 Helen Truong AGPCNP insulin lispro (HUMALOG KWIKPEN INSULIN) 100 unit/mL pen injector inject 9 Units under the skin in the morning and 9 Units at noon and 9 Units in the evening. inject before meals. Give half dose if patient eats less than half meal OR if blood glucose 80 - 120 mg/dL, HOLD DOSE if or BG < 80 02/03/24 Helen Truong AGPCNP losartan 50 mg tablet Take 1 tablet by mouth in the morning. 02/03/24 Helen Truong AGPCNP metFORMIN 500 mg tablet Take 1 tablet by mouth in the morning and 1 tablet in the evening. Take with meals. 02/03/24 Helen Truong AGPCNP semaglutide (OZEMPIC) 2 mg/dose (8 mg/3 mL) PnIj inject 2 mg under the skin weekly. 02/03/24 Helen Truong AGPCNP traZODone 100 mg tablet TAKE 1 TABLET BY MOUTH ONCE DAILY AT BEDTIME NEEDED 01/10/24 Doctor Unassigned, [place] ARIPiprazole 5 mg tablet Take 1 tablet by mouth at bedtime. 10/18/23 Doctor Unassigned, [place] Blood-Glucose [facility],Continuous ([facility]ST[facility] CURT [facility] 10/28/23 Helen Truong AGPCNP Blood-Glucose Sensor (FREESTYLE CURT 3 SENSOR) [facility] Use as directed every 2 weeks 10/28/23 Helen Truong AGPCNP SERTraline 100 mg tablet Take 1 tablet by mouth every morning. 10/18/23 Doctor Unassigned, [place] quetiapine fumarate (SEROQUEL ORAL) Take by mouth. Doctor Unassigned, [place] Allergies Allergen Reactions Latex Swelling Blisters Drug-Drug Interactions: There are no significant drug-drug interactions There is no immunization history on file for this patient. Vaccine history was reviewed. The patient was reminded about the importance of receiving an annual influenza vaccine as indicated. Recent Labs 08/15/23 1455 02/03/24 1101 HGBA1C 12.2* -- [id number] -- 12.3* Assessment: 1. DIABETES Patient NOT controlled to goal A1c of 6-7.0% per ADA guidelines Fasting SMBG above goal of 80-130 mg/dL and post prandial SMBG above goal of <180 mg/dL Tolerating DM regimen well with no missed doses Will increase Ozempic dose for further glycemic control and weight loss benefits Patient is on moderate dose of metformin, max dose of Ozempic and basal/bolus insulin Patient is taking 4x more mealtime insulin vs basal insulin Patient would benefit from maximizing metformin dose and switching Ozempic to Mounjaro for additional appetite suppression Mounjaro requires a PA (will ask Endo nursing team to submit PA) At today's visit, will focus on redistributing insulin to target 50:50 basal to bolus ratio At next office visit, would recommend to switch to Mounjaro (if PA approved) and maximize metformin Medication monitoring: [-] Metformin: eGFR <30mL/min [-] Semaglutide: pancreatitis, severe diabetic retinopathy, macular edema Plan/Recommendations: Change Lantus Solostar (insulin glargine) to 32 units daily at bedtime Change Humalog Kwikpen (insulin lispro) to 8 units with each meal (patient eats 4 meals) If BG 80-120 mg/dL or less than half a meal, give half dose If BG <80 mg/dL, hold dose Continue metformin 500 mg with breakfast and dinner Continue Ozempic 2 mg weekly Patient to follow up with CHELO Cline on 05/11/2024 PharmD will continue to follow afterwards Time spent with patient/coordination: 30 minutes Sofia Merchant PharmD, [facility] Wellness Coordinator- Endocrinology Future Appointments Provider Department Dept Phone 05/11/2024 2:30 PM Helen Truong AGPCNP [facility] Endocrinology, [place] [phone] [facility] 2024-03-19 15:18:15 Pt aware PA was sent in, verbalized no further questions. [facility] Esther Carr RN [facility] 2024-03-19 13:45:55 Images from the original note were not included. [facility] 2024-03-19 11:17:55 Images from the original note were not included. Patient came in to provide their insurance card information to get her insulin PA. Patient has been with out medication for a month [facility] 2024-03-16 14:25:31 Images from the original note were not included. Pt Insurance showing inactive on epic. PA denied. LM for patient to call back with Insurance information. [facility] 2024-03-16 12:50:10 Aminta Nino is a 33 year old female Pt is calling because she needs a PA for nsulin lispro (HUMALOG KWIKPEN INSULIN) 100 unit/mL pen injector . Pt was at the ER last night with BS over 700. Pt states she has been out of medication for a month and has been trying to get this done. Please advise [facility] [address] [place] [id number] [facility] Priyanka Iniguez [facility] 2024-03-05 10:09:53 CLINICAL PHARMACY ENDOCRINOLOGY VISIT- 03/05/24 Aminta Nino is a 33 year old female referred to PharmD by CHELO Cline for medication management of type 2 diabetes. At last visit, patient was instructed to: Continue Ozempic 2 mg weekly Continue Lantus Solostar (insulin glargine) 15 units daily at bedtime Continue Humalog Kwikpen (insulin lispro) 9 units 3x/day with meals If BG 80-120 mg/dL or less than half a meal, give half dose If BG <80 mg/dL, hold dose Continue metformin 500 mg 2x/day with breakfast and dinner 03/05/24: Unable to reach patient (x2). Left voicemail with callback number. Will try again in a few weeks. Sofia Merchant PharmD, [facility] Wellness Coordinator- Endocrinology Future Appointments Provider Department Dept Phone 05/11/2024 2:30 PM Helen Truong AGPCNP [facility] Endocrinology, [facility] [phone] [facility] Sofia Merchant [facility] 2024-02-04 10:00:00 Images from the original note were not included. Venipuncture collection performed by clean technique on the left hand. Total of 1 attempts were made. Slight pressure and a bandage/dressing were applied to the site(s). The patient experienced no complications. The following specimens were processed according to instructions and sent to [facility] laboratories per lab order on 02/04/2024 : LT BLUE SST 4 RED LAV PPT DK GREEN (LiHep) DK GREEN (SodH) HELLER DK BLUE (K2) DK BLUE (S) ACD Blood Culture NIPT/NTD Patient has been identified by and was provided with cup, antiseptic towelette, and clean catch instructions. 1 urine specimen(s) sent. Unpreserved 1 Urine Culture Aptima tube Other urine [facility] 2024-01-23 08:11:32 Received medical records from [facility] [employer] via fax, placed on [facility] [employer] [facility] [employer] [facility] desk. BARREL FINISHER Maryanne Caicedo [facility] 2024-01-20 15:07:58 Images from the original note were not included. BARREL FINISHER Esther Carr RN [facility] 2024-01-19 14:10:25 Name and verified, pt is aware of results. Pt verbalized understanding. Suni Dooley RN 01/19/2024 2:10 PM BARREL FINISHER Suni Dooley RN [facility] 2024-01-19 10:48:40 Aminta Nino is a 33 year old female pt returned the call to discuss results. Would like a call back. BARREL FINISHER Candis Lee [facility] 2024-01-19 10:24:15 Attempted to reach pt, no answer, left a vm Suni Dooley RN 01/19/2024 10:24 AM [facility] 2024-01-19 10:05:59 Aminta Nino is a 33 year old Patient returned call to go over results. Please assist and thank you. BARREL FINISHER Ron Cool [facility] 2024-01-18 15:52:47 Images from the original note were not included. PA sent BARREL FINISHER Esther Carr RN [facility] 2024-01-18 15:31:40 Aminta Nino is a 33 year old female Pt is calling to get status on her request for OZEMPIC . She stated that pharmacy has also sent request form for PA . Please call the pharmacy with the update.Pt is waiting since 3 months for this PA initiation. Please call the pt with an update. BARREL FINISHER Uma Mckeon [facility] 2024-01-17 17:31:15 1. Type 2 diabetes mellitus without complication, with long-term current use of insulin - insulin lispro (HUMALOG KWIKPEN INSULIN) 100 unit/mL pen injector; inject 9 Units under the skin in the morning and 9 Units at noon and 9 Units in the evening. inject before meals. Give half dose if patient eats less than half meal OR if blood glucose 80 - 120 mg/dL, HOLD DOSE if or BG < 80 Dispense: 36 mL; Refill: 1 [facility] 2024-01-17 17:24:15 Please advise on formulary alternative for Humalog U-200. Mya Abarca MA 01/17/2024 5:24 PM [facility] Mya Abarca MA [facility] 2024-01-11 14:58:31 Images from the original note were not included. Priyanka Sen [facility] 2024-01-05 08:54:00 CLINICAL PHARMACY ENDOCRINOLOGY VISIT Aminta Nino is a 33 year old female referred to PharmD by CHELO Cline for medication management of type 2 diabetes. At last visit, patient was instructed to: Increase Ozempic to 2 mg weekly Continue Lantus Solostar (insulin glargine) 15 units daily at bedtime Continue Humalog Kwikpen (insulin lispro) 9 units 3x/day with meals If BG 80-120 mg/dL or less than half a meal, give half dose If BG <80 mg/dL, hold dose Continue Metformin 500 mg 2x/day with breakfast and dinner 01/05/24: Unable to reach patient (x2). Left voicemail with callback number. Patient will follow-up with CHELO Cline on 02/03/24. PharmD will follow-up after. Saran Villatoro PharmD PGY2 [employer] Veterinary Receptionist Future Appointments Provider Department Dept Phone 02/03/2024 11:00 AM Helen Truong AGPCNP [facility] [phone] Saran Villatoro [facility] 2024-01-04 10:57:47 CLINICAL PHARMACY ENDOCRINOLOGY VISIT Aminta Nino is a 33 year old female referred to PharmD by CHELO Cline for medication management of type 2 diabetes. At last visit, patient was instructed to: Increase Ozempic to 2 mg weekly Continue Lantus Solostar (insulin glargine) 15 units daily at bedtime Continue Humalog Kwikpen (insulin lispro) 9 units 3x/day with meals If BG 80-120 mg/dL or less than half a meal, give half dose If BG <80 mg/dL, hold dose Continue Metformin 500 mg 2x/day with breakfast and dinner 01/04/24: Patient requested PharmD to call back tomorrow. Saran Villatoro PharmD PGY2 [employer]p Organizational Development Veterinary Receptionist Future Appointments Provider Department Dept Phone 02/03/2024 11:00 AM Heeln Truong AGPCNP [facility] [phone] Saran Villatoro [facility] 2023-12-09 12:58:57 I was present with the resident at the time of this encounter on 12/09/23. I discussed the case with Saran Villatoro PharmD (PGY2 Vp Organizational Development Veterinary Receptionist) and agree with the assessment and plan. I have reviewed the progress note and I agree with the note as written. Sofia Merchant PharmD, [facility] Pharm[facility] Clinical [facility] Wellness Coordinator- Endocrinology Sofia Merchant [facility] 2023-12-09 11:41:34 CLINICAL PHARMACY ENDOCRINOLOGY VISIT- 12/09/23 DATE: 12/09/23 Subjective: Aminta Nino is a 33 year old female referred to PharmD by CHELO Cline for medication management of type 2 diabetes. At last visit, patient was instructed to: Start Lantus Solostar (insulin glargine) 15 units daily at bedtime Start Humalog Kwikpen (insulin lispro) 9 units 3x/day with meals If BG 80-120 mg/dL or less than half a meal, give half dose If BG <80 mg/dL, hold dose Start using Freestyle Curt 3 CGM Continue Ozempic (semaglutide) 1 mg weekly Continue Metformin 500 mg 2x/day with breakfast and dinner At today's clinical pharmacy visit, patient reports doing well on DM regimen with no missed doses. Reports seeing significant improvement in SMBG since starting insulin regimen. Previously, fasting SMBG were in the 300-400 but has now reduced to ~200. Currently on Freestyle Curt 3, but reader before patient could provide readings. Denies GI KRISTI and appetite suppression with Ozempic. Last dose given Tuesday, 12/04. Does not have any remaining Ozempic pens left at home. Denies s/sx or readings of hypoglycemia. 1. DIABETES Patient reports 15 years duration of Type 2 diabetes. Symptoms of hypoglycemia: [-] Dizziness [-] Fatigue [-] Sweating [-] Nervousness [-] Tachycardia Symptoms of hyperglycemia: [-] Polyuria [-] Polydipsia [-] Polyphagia [-] Visual changes Complications of diabetes: Macrovascular: [-] FL [-] CABG/PCI/other re-vascularization procedure Microvascular [-] Retinopathy (last eye exam never done) [-] Nephropathy [-] Neuropathy - peripherally (last foot exam 10/28/23) Current DM medication regimen: Lantus Solostar (insulin glargine) 15 units daily at bedtime Humalog Kwikpen (insulin lispro) 9 units 3x/day with meals Ozempic (semaglutide) 1 mg weekly Metformin 500 mg 2x/day with breakfast and dinner Med compliance [+] Previous treatment attempts/failures/adverse reactions: insulin pump (stopped d/t not going back for follow-up visits for refills) Medication Limitations: n/a This visit's SMBG reading: (based on recall) AM (fasting): 230 PM: 180 (-) hypo Objective: Past Medical History: Diagnosis Date ADHD (attention deficit hyperactivity disorder) Bleeding after intercourse 07/20/2016 BV (bacterial vaginosis) 08/12/2015 Diabetes mellitus Hypertension ODD (oppositional defiant disorder) Pap smear abnormality of cervix PTSD (post-traumatic stress disorder) Thyroid disease Prior to Admission medications Medication Sig Start Date End Date Taking? Authorizing Provider Insulin Glargine (LANTUS SOLOSTAR U-100 INSULIN) 100 unit/mL (3 mL) injection inject 15 Units under the skin at bedtime. For Lantus: take HALF dose if or if blood glucose 80 - 120 mg/dL, HOLD if less than 80. 10/29/23 Helen Truong AGPCNP amLODIPine 10 mg tablet Take 1 tablet by mouth in the morning. 10/05/23 Doctor Unassigned, [place] ARIPiprazole 5 mg tablet Take 1 tablet by mouth at bedtime. 10/18/23 Doctor Unassigned, [place] Blood-Glucose Meter,Continuous (FREESTYLE CURT 3 READER) Misc Use as directed 10/28/23 Helen Truong AGPCNP Blood-Glucose Sensor (FREESTYLE CURT 3 SENSOR) Jenna Use as directed every 2 weeks 10/28/23 Helen Truong AGPCNP insulin lispro (HUMALOG KWIKPEN INSULIN) 200 unit/mL (3 mL) InPn inject 9 Units under the skin in the morning and 9 Units at noon and 9 Units in the evening. inject before meals. Give half dose if patient eats less than half meal OR if blood glucose 80 - 120 mg/dL, HOLD DOSE if or BG < 80 . 10/28/23 Helen Truong AGPCNP losartan 50 mg tablet Take 1 tablet by mouth in the morning. 10/05/23 Doctor Unassigned, [place] semaglutide (OZEMPIC) 1 mg/dose (4 mg/3 mL) PnIj inject 1 mg under the skin weekly. 10/28/23 Helen Truong AGPCNP SERTraline 100 mg tablet Take 1 tablet by mouth every morning. 10/18/23 Doctor Unassigned, [place] fluconazole 150 mg tablet Take one tablet PO today, then repeat in 72 hours 09/05/23 Vincent Jorge DNP metFORMIN 500 mg tablet Take 1 tablet by mouth in the morning and 1 tablet in the evening. Take with meals. 09/05/23 Vincent Jorge DNP quetiapine fumarate (SEROQUEL ORAL) Take by mouth. Doctor Unassigned, [place] Allergies/ADR: Allergies Allergen Reactions Latex Swelling Blisters Drug-Drug Interactions: There are no significant drug-drug interactions There is no immunization history on file for this patient. Vaccine history was reviewed. The patient was reminded about the importance of receiving an annual influenza vaccine as indicated. Recent Labs 08/15/23 1455 HGBA1C 12.2* Assessment: 1. DIABETES Patient NOT controlled to goal A1c of 6-7.0% per ADA guidelines Fasting SMBG above goal of 80-130 mg/dL and post prandial SMBG above goal of <180 mg/dL Tolerating DM regimen well with no missed doses Will increase Ozempic dose for further glycemic control and weight loss benefits Will consider increasing metformin at future visits once patient has obtained CMP lab (last lab obtained 11/2020) Medication monitoring: [-] Metformin: eGFR <30mL/min [-] Semaglutide: pancreatitis, severe diabetic retinopathy, macular edema Plan/Recommendations: Increase Ozempic to 2 mg weekly Continue Lantus Solostar (insulin glargine) 15 units daily at bedtime Continue Humalog Kwikpen (insulin lispro) 9 units 3x/day with meals If BG 80-120 mg/dL or less than half a meal, give half dose If BG <80 mg/dL, hold dose Continue Metformin 500 mg 2x/day with breakfast and dinner Will follow up next month Time spent with patient/coordination: 20 minutes Saran Villatoro PharmD PGY2 [employer]ational Development Veterinary Receptionist Future Appointments Provider Department Dept Phone 02/03/2024 11:00 AM Helen Truong AGPCNP [facility] Endocrinology, [facility] [phone] Saran Villatoro [facility]ly [facility] 2023-12-07 10:47:45 CLINICAL PHARMACY ENDOCRINOLOGY VISIT Aminta Nino is a 33 year old female referred to PharmD by CHELO Cline for medication management of type 2 diabetes. Reason for consult: Please call this person in 1 month after she has started using her Free Style Curt 3 and started taking her MDI more routinely. At last visit, patient was instructed to: Start Lantus Solostar (insulin glargine) 15 units daily at bedtime Start Humalog Kwikpen (insulin lispro) 9 units 3x/day with meals If BG 80-120 mg/dL or less than half a meal, give half dose If BG <80 mg/dL, hold dose Start using Freestyle Curt 3 CGM Continue Ozempic (semaglutide) 1 mg weekly Continue Metformin 500 mg 2x/day with breakfast and dinner 12/06/23: Unable to reach patient. Left voicemail with callback number. Patient requested PharmD to call back tomorrow AM. 12/07/23: Unable to reach patient despite calling patient back at requested time. Left voicemail with callback number. Will try again in a few weeks. Saran Villatoro PharmD PGY2 V[employer] Organ[employer]ational Development Veterinary Receptionist Future Appointments Provider Department Dept Phone 02/17/2024 10:30 AM Helen Truong AGPCNP [facility] Endocrinology, [facility] [phone] Saran Villatoro [facility] 2023-10-28 14:00:00 Addended by: HELEN ROYAL on: 10/29/2023 11:02 PM Modules accepted: Orders [facility] 2023-08-15 15:00:00 Images from the original note were not included. Venipuncture collection performed by clean technique on the right anticubitus. Total of 2 attempts were made. Slight pressure and a bandage/dressing were applied to the site(s). The patient experienced no complications. The following specimens were processed according to instructions and sent to [facility] laboratories per lab order on 08/15/2023 : LT BLUE SST 2 rst RED LAV 2 PPT DK GREEN (LiHep) DK GREEN (SodH) HELLER DK BLUE (K2) DK BLUE (S) ACD Blood Culture NIPT/NTD [facility] 2023-01-21 18:50:00 [facility] ([facility] EMERGENCY PROVIDER REPORT REPORT#:[id number] REPORT STATUS: Signed DATE:01/21/23 TIME: 1849 PATIENT: AMINTA NINO UNIT #: [id number] ROOM/BED: AGE: 32 SEX: F PCP PHYS: Tad Jordan MD SERVICE DT: AUTHOR: Napoleon Nazario MD * ALL edits or amendments must be made on the electronic/computer document * HPI-Extremity Prob Lower General Initial Greet Date/Time 01/21/231849 Presentation Chief Complaint Foot problem R, Foot problem L Free Text HPI Notes Free Text HPI Notes 32 F with foot swelling both feet, has h/o pre-eclampsia, delivered on Tuesday, she feels ok, her mother was worried and told her to go to ER, her BP was elevated at home 180, here it is 140/80. she denies chest pain, shortness of breath. swelling is equal in both feet Risk-Extremity Prob Lower Risk Stratification Well's Criteria for DVT Well's Criteria for DVT Response Value Active Cancer? No 0 Immob Lower Extremity? No 0 Bed >3 Days/Surg Last 4 Weeks? Yes 1 Local Tend Deep Venous Sys? No 0 Entire Leg Swollen? No 0 Calf Swelling >3cm? No 0 Pit Edema in Symptomatic Leg? No 0 Collat Superficial Veins? No 0 Previous Documented DVT? No 0 Total 1 Review of Systems ROS Statements All systems rev neg except as marked. Past Medical History - Adult Stated Complaint HTN POST PARDUM 01/15/23 Allergies Coded Allergies: latex (SWELLING 11/15/22) Home Medications Active Scripts SERTRALINE (ZOLOFT) 100 MG PO DAILY SERTRALINE (ZOLOFT) 100 MG PO DAILY #30 TAB Prov: 01/18/23 metFORMIN ER 1,000 MG PO BID metFORMIN ER 1,000 MG PO BID #60 TABS Prov: 01/18/23 traZODone (DESYREL) 100 MG PO BEDTIME PRN PRN INSOMNIA traZODone (DESYREL) 100 MG PO BEDTIME PRN PRN INSOMNIA #30 TABS Prov: 01/18/23 NIFEdipine XL (PROCARDIA XL) 30 MG PO Q12HR NIFEdipine XL (PROCARDIA XL) 30 MG PO Q12HR #60 TABS Prov: 01/18/23 Reported Medications hydrOXYzine HCL (ATARAX) 50 MG PO QID PRN PRN ANXIOUS INSULIN LISPRO (HumaLOG KWIKPEN (3mL)) 50 UNITS SUBQ QAM INSULIN LISPRO (HumaLOG KWIKPEN (3mL)) 60 UNITS SUBQ BID INSULIN GLARGINE (LANTUS SOLOSTAR (15mL)) 0 UNITS SUBQ BID Discontinued Reported Medications SERTRALINE (ZOLOFT) 100 MG PO DAILY Review of Nursing Notes Rev avail, and agree Additional Medical History bipolar, ADHD, OCD DM-taking metformin, insulin, HTN, Obesity Additional Surgical History Denies Alcohol Use Denies EtOH use Drug Use Denies recreational drugs Smoking status for patients 13 years old or older: Never Smoker Physical Exam Vital Signs Vital Signs First Documented: Result Date Time Pulse Ox 98 01/21 1842 B/P 141/82 01/21 1842 B/P Mean 101 01/21 1842 O2 Delivery Room air 01/21 1842 Temp 98.1 01/21 1842 Pulse 93 01/21 1842 Resp 18 01/21 1842 Last Documented: Result Date Time Pulse Ox 98 01/21 1842 B/P 141/82 01/21 1842 B/P Mean 101 01/21 1842 O2 Delivery Room air 01/21 1842 Temp 98.1 01/21 1842 Pulse 93 01/21 1842 Resp 18 01/21 1842 Review of Vital Signs Reviewed Focused PE General/Const General/Const Awake, Alert, No acute distress Resp/Chest Respiratory/Chest Atraumatic, Breath sounds NL MS Lower Extrem Lower Ext/Pelvis/MS Atraumatic, Inspection NL, Full range of motion MS Ankle/Foot Ankle/Foot +pedal edema equal, NV intact Skin Skin Atraumatic, Color NL, No rash Neurologic Neurologic Oriented X3, Speech NL, No motor deficits Re-Evaluation MDM Free Text MDM Notes Additional Text joleen wrap both legs, ok to d/c home Patient Discharge Departure Vital Signs/Condition Vital Signs First Documented: Result Date Time Pulse Ox 98 01/21 1842 B/P 141/82 01/21 1842 B/P Mean 101 01/21 1842 O2 Delivery Room air 01/21 1842 Temp 98.1 01/21 1842 Pulse 93 01/21 1842 Resp 18 01/21 1842 Last Documented: Result Date Time Pulse Ox 98 01/21 1842 B/P 141/82 01/21 1842 B/P Mean 101 01/21 1842 O2 Delivery Room air 01/21 1842 Temp 98.1 01/21 1842 Pulse 93 01/21 1842 Resp 18 01/21 1842 All vital signs available at the time of this entry have been reviewed. Condition Stable Clinical Impression Clinical Impression Primary Impression: Pedal edema Disposition Decision Discharge )( Discharged to Home Yes )( Time 1854 )( Date 01/21/23 Discharge/Care Plan Counseled Regarding Diagnosis, Need for follow-up, When to return to ED Patient Instructions ED Leg Swelling in Both Legs Discharge Note I have spoken with the patient and/or caregivers. I have explained the patient's condition, diagnoses and treatment plan based on the information available to me at this time. I have answered the patient's and/or caregiver's questions and addressed any concerns. The patient and/or caregivers have as good an understanding of the patient's diagnosis, condition and treatment plan as can be expected at this point. The vital signs have been stable. The patient's condition is stable and appropriate for discharge from the emergency department. The patient will pursue further outpatient evaluation with the primary care physician or other designated or consulting physician as outlined in the discharge instructions. The patient and/or caregivers are agreeable to this plan of care and follow-up instructions have been explained in detail. The patient and/or caregivers have received these instructions in written format and have expressed an understanding of the discharge instructions. The patient and/or caregivers are aware that any significant change in condition or worsening of symptoms should prompt an immediate return to this or the closest emergency department or a call to 911. at 1855 RPT #:[id number] END OF REPORT [facility] 2023-01-18 11:17:00 [facility] ([facility] Brief Discharge Note w/Med Rec REPORT#:[id number] REPORT STATUS: Signed REPORT INITIALIZATION DATE:01/18/23 TIME: 1116 PATIENT: AMINTA NINO UNIT #: [id number] ROOM/BED: [address] : 92 AGE: 32 SEX: F ATTEND: Jak Herrera MD ADM AUTHOR: Darron Santacruz MD REPT SERVICE DT/TIME: 01/18/231116 * ALL edits or amendments must be made on the electronic/computer document * Med Rec Med Rec Discharge meds: Continue taking these medications: hydrOXYzine HCL (ATARAX) 50 MG TAB 50 MILLIGRAM ORAL FOUR TIMES DAILY NEEDED. as needed for ANXIOUS Comments: #60 - SIG Obtained From [facility] INSULIN LISPRO (HumaLOG KWIKPEN (3mL)) 100 UNIT/ML INSULN.PEN 50 UNITS SUBCUTANEOUS EVERY MORNING. Comments: #45 - SIG Obtained From [facility] INSULIN LISPRO (HumaLOG KWIKPEN (3mL)) 100 UNIT/ML INSULN.PEN 60 UNITS SUBCUTANEOUS TWICE DAILY. Instructions: TAKE LUNCH AND DINNER INSULIN GLARGINE (LANTUS SOLOSTAR (15mL)) 100 UNIT/ML (3 ML) PEN.INJCTR 0 UNITS SUBCUTANEOUS TWICE DAILY. Comments: #45 - SIG Obtained From [facility] SERTRALINE (ZOLOFT) 100 MG TAB 100 MILLIGRAM ORAL DAILY. Qty = 30 This prescription has been renewed Start taking the following new medications: metFORMIN ER (metFORMIN ER) 500 MG TAB.SR.24H 1,000 MILLIGRAM ORAL TWICE DAILY. Qty = 60 No Refills traZODone (DESYREL) 300 MG TAB 100 MILLIGRAM ORAL AT BEDTIME NEEDED. as needed for INSOMNIA Qty = 30 No Refills NIFEdipine XL (PROCARDIA XL) 30 MG TAB.SA 30 MILLIGRAM ORAL EVERY 12 HOURS. Qty = 60 No Refills Brief Discharge Note w/Med Rec Free Text A P: Admission 11-15-22 32 y/o EDC 02-20-23 STORMY at 26 2/7 weeks transported from [place] for sob, orthopnea, pulm edema. PNC w dr cristina clay 1) IDDM- hgba1c 6.6 at sending 11-13, on lantus 60 bid, humalog 50B, 60L, 70D Consulted orazulck, nutrition and DM counselor. fructosamine 11-18 198, 11/30 217, 200, current 01-11 lantus am/pm 136/110, humalog 100, 110, 144 and metformin to 1000 bid. Pt managed with her CGM and increasing insulin doses, with glucose levels very labile until day of delivery. 2) Prematurity- s/p bmz x 2 (11-16,6) no mgso4 d/t pulm edema, kiran felipe 3) U/S 11-- blaise coates vertex, anterior placenta, MATHEUS 6.5 decreased, S/D 11 increased near AEDF, EFW 1, 1683 gms, < 1 % decreased interval growth , BPP 8/8, cervix long closed - swp disc indication for delivery. pt wants trial of induction. PLAN- gbs vag culture sent, to l d, cervidil, ssi, pcn prev 01-02 blaise coates vertex, anterior placenta, MATHEUS 6.5 decreased, S/D 5.1 increased EFW 1730 gms, 6% % low normal interval growth interval gwoth, BPP 8/8, cervix long closed. prev 12-19 blaise coates vertex, anterior placenta, MATHEUS 8.5 decreased, S/D 4.9- 5.3 increased EFW 1384 gms, 5.6 % low normalinterval growth interval gwoth, BPP 8/8, cervix long closed. PLAN- rescan this weekend 9-24 KA, S:D 4.9-5.3, EFW 1084, 5.6%, AFT 9.5, BPP 8/8, cx long closed. 9-4 gei Coates Cephalic CGA c/w dates UA-PI: 0.95 DVP: 2.7 Anatomy severely limited due to morbid obesity. PLAN- next scan in 2 weeks (the patient is wanting q week) 4) FWB- nst bid--> per pt's request, 1 hr TID after meals. NST were always overall reassuring 5) DVT prophy- lovenox 40 mg 6) Chr htn r/o YOVANY- bp at home 190/110, since adm bp 120-130/50-70 on labet 200 q 8 , procardia 30 xl bid. upcr 626, dropped to 241. nl ast/alt, plat. 24hu 554 mg. with occ labile BPs 7) ADHD/depression- stable on seroquel, zoloft 8) sleep apnea--pulm consult, per dr crocker, pt refusing cpap d/t claustrophobia. o2 sats reassuring 9) fatigue--TSH nl, iron studies show bordeline deficiency, on iron and colace 10) Vulvar bump, vag odor and rash on abd. all asympt. no evidence of std. 9-15 wet mount neg for trich and bv, urine gc/chlam neg 11) Pulm edema, on adm- now resolved , echo at sending wnl, pt feels better since adm, had cxr on adm w min pulm edema. 13) Pruritic red spots on legs- per dr madrigal they seem to me self-inflicted. PLAN- hc cream and dph prn 14) "Bad gums"- h/o same, afraid to see dentist. PLAN- saline gargles, f/u w dds pp 15) Nose bleeds 10-16- ocean saline spray prn 16) Insomnia- pt requests trazadone, on 300 q hs 17) Facial rash 01-13-23- pt concerned about staph infxn. mrsa nasal swab + treated w mupricon nasal Delivery 01-15-23 montse blanchard STORMIE 1770g 3-14, ap 1,7 course- uncomplicated- bp 140-150/70-80, glu 120-287, on lantus 110 qhs, ssi, proc 60 xl q d pp h/h 10.3/30.8, nl plat and lft D/C 01-18-23 PPD 3 w rxs procardia 30xl q 12, trazadone, zoloft 100, metformin 100 bid. to continue her cgm and insulin pen, preE precautions F/U dr clay 1 wk for bp check, fax [phone], then with site damage prevention technician Discharge to: Home/Self Care Discharge diagnosis: 26 weeks iddm, preE, fgr, bipolar, adhd Pt. condition on discharge: improved Additional Discharge Routines: None Diet: Diabetic Activity: Light Duty Additional instructions: continue cgm and insuliin pens, preE precautions, f/u dr clay 1 week for bpp check at 1343 RPT #:[id number] END OF REPORT [facility] 2023-01-18 11:14:00 [facility] ([facility] OB Postpart Progr Note REPORT#:[id number] REPORT STATUS: Signed REPORT INITIALIZATION DATE:01/18/23 TIME: 1113 PATIENT: AMINTA NINO UNIT #: [id number] ROOM/BED: [address] : 92 AGE: 32 SEX: F ATTEND: Jak Herrera MD ADM AUTHOR: Darron Santacruz MD REPT SERVICE DT/TIME: 01/18/23 1114 * ALL edits or amendments must be made on the electronic/computer document * Subjective Subjective Status/Day: post (day 3) Patient reports: Patient reports: Yes no complaints, Yes normal lochia, Yes pain management effective, Yes tolerating po well, Yes voiding well, Yes voiding without pain, Yes tolerating ambulation, No headache, No blurred vision Comments: c/o leg edema Objective Physical Exam Neuro: Exam: alert, oriented x3 Abdomen: soft Lochia: normal Lower extremities: Edema: 2+ pitting Calf tenderness: negative Diagnosis, Assessment Plan Diagnosis, Assessment Plan Free text A P: PPD 3 (11-4 , HARRY james 1770g 3-14, ap 1,7), bp 140-150/70-80, glu 120- 287, fbs 180, on lantus 110 qhs, ssi, proc 60 xl q d pp h/h 10.3/30.8, nl plat and lft PLAN- d/c home w rxs procardia 30xl q 12, trazadone, zoloft 100, metformin 100 bid. to continue her cgm and insulin pen, preE precautions, f/u dr clay 1 wk for bp check, then with site damage prevention technician Pt seen and d/w dr josé at 1138 RPT #:[id number] END OF REPORT [facility] 2023-01-17 07:42:00 [facility] ([facility]) OB Postpart Progr Note REPORT#:[id number] REPORT STATUS: Signed REPORT INITIALIZATION DATE:01/17/23 TIME: 741 PATIENT: AMINTA NINO UNIT #: [id number] ROOM/BED: [address] : [birth year] AGE: 32 SEX: F ATTEND: Jak Herrera MD ADM AUTHOR: Darron Santacruz MD REPT SERVICE DT/TIME: 01/17/2342 * ALL edits or amendments must be made on the electronic/computer document * Subjective Subjective Status/Day: post (day 2) Patient reports: Patient reports: Yes no complaints, Yes normal lochia, Yes pain management effective, Yes tolerating po well, Yes voiding well, Yes voiding without pain, Yes tolerating ambulation Objective General VS: Vital Signs: Date Time Temp Pulse Resp B/P B/P Pulse O2 O2 Flow FiO2 Mean Ox Delivery Rate 01/17 750 99.0 01/17 750 98.5 102 17 133/82 98 01/17 600 98.1 102 18 105/66 95 01/16 2333 107.0 01/16 2333 98.5 103 18 145/88 98 01/16 1950 98.0 102 17 152/84 98 01/16 1620 98.6 106 18 150/83 97 PATIENT WEIGHT: Weight (lb): 250 Weight (oz): Weight (kg): 113.600 Physical Exam Fundus: below the umbilicus Lochia: normal Lower extremities: Edema: 2+ pitting Calf tenderness: negative Diagnosis, Assessment Plan Diagnosis, Assessment Plan Free text A P: PPD 2 (11-4 , montse, HARRY 1770g 3-14, ap 1,7) pp h/h pending, bp 140-150/ 70-80, glu 120-287, fbs 180, on lantus 110 qhs, ssi, proc 60 xl q d PLAN- cpm, home in am Pt seen and d/w dr ochoa at 1500 RPT #:[id number] END OF REPORT [facility] 2023-01-16 09:26:00 [facility] ([facility]) OB Postpart Progr Note REPORT#:[id number] REPORT STATUS: Signed REPORT INITIALIZATION DATE:01/16/23 TIME: 925 PATIENT: AMINTA NINO UNIT #: [id number] ROOM/BED: : 92 AGE: 32 SEX: F ATTEND: Jak Herrera MD ADM AUTHOR: Taz Clifford MD REPT SERVICE DT/TIME: 01/16/23925 * ALL edits or amendments must be made on the electronic/computer document * Subjective Subjective Patient reports: Patient reports: Yes normal lochia, Yes pain management effective, Yes voiding well, Yes tolerating ambulation, No no complaints Objective General VS: Vital Signs: Date Time Temp Pulse Resp B/P B/P Pulse O2 O2 Flow FiO2 Mean Ox Delivery Rate 01/16 0607 98.0 102 14 147/73 95 01/16 0120 97.8 93 16 147/74 95 01/15 2053 98.4 92 18 143/83 97 01/15 1405 98.5 92 146/82 99 01/15 1333 102.0 01/15 1333 90 141/75 01/15 1332 93 99 01/15 1327 89 98 01/15 1322 84 97 01/15 1318 107.0 01/15 1318 85 150/81 01/15 1317 90 98 01/15 1312 89 98 01/15 1307 92 98 01/15 1303 114.0 01/15 1303 92 155/88 01/15 1302 92 97 01/15 1258 114.0 01/15 1258 92 154/87 01/15 1257 90 97 01/15 1250 97 98 01/15 1248 98.0 01/15 1248 105.0 01/15 1248 96 144/78 01/15 1245 93 99 01/15 1244 214 81 01/15 1233 107.0 01/15 1233 98 149/83 77 01/15 1218 102.0 01/15 1218 114 149/74 01/15 1203 99.0 01/15 1203 111 126/81 01/15 1155 98.3 01/15 1155 92.0 01/15 1155 110 123/71 01/15 1150 238 79 01/15 1145 106 99 01/15 1140 110 100 01/15 1135 110 98 01/15 1133 92.0 01/15 1133 112 134/70 01/15 1130 111 98 01/15 1125 112 99 01/15 1120 115 98 01/15 1119 106.0 01/15 1119 110 156/78 01/15 1115 110 97 01/15 1110 110 97 01/15 1105 117 98 01/15 1103 109 83 01/15 1100 114 98 01/15 1055 123 98 01/15 1050 110 98 01/15 1048 112 80 01/15 1045 109 99 01/15 1042 97 78 01/15 1040 114 100 01/15 1035 98 100 01/15 1030 108 99 01/15 1027 118.0 01/15 1027 107 161/105 01/15 1025 107 99 01/15 1020 111 100 01/15 1015 107 99 01/15 1014 133.0 01/15 1014 110 165/112 01/15 1012 140.0 01/15 1012 106 189/106 01/15 1010 110 100 01/15 1005 108 100 01/15 1000 106 100 11/04 0957 128.0 01/15 0957 105 174/96 01/15 0955 113 100 01/15 0950 107 99 01/15 0945 106 98 01/15 0943 118.0 01/15 0943 106 155/93 01/15 0942 131.0 01/15 0942 105 175/109 01/15 0940 106 98 01/15 0937 98.2 18 01/15 935 104 99 01/15 930 104 100 01/15 927 104.0 01/15 927 101 137/86 PATIENT WEIGHT: Weight (lb): 250 Weight (oz): Weight (kg): 113.600 Physical Exam Cardiac: normal sinus rhythm Lungs: unlabored breathing Neuro: Exam: alert, oriented x3 Abdomen: soft Uterus: firm, involution appropriate Fundus: below the umbilicus Lochia: normal Result Findings/Data: Laboratory Tests: 01/16 2059 1334 1119 1117 Blood Gas Capillary pH (7.35 - 7.45) 7.245 L 7.309 L Capillary pCO2 (mmHg) 53.4 42.3 Capillary pO2 (mmHg) 20.7 25.7 Capillary HCO3 (meq/L) 22.6 20.8 Capillary Base Excess -5.3 -5.3 Patient On Oxygen CBLA CBLV O2 Delivery Device RA RA Chemistry POC Glucose (65 - 110 mg/dL) 180 H 287 H 157 H Diagnosis, Assessment Plan Diagnosis, Assessment Plan Free text A P: 32 y/o transported originally for sob, orthopnea, pulm edema. PNC w dr cristina clay PPD#1- induced due to FGR patient is afebrile and stable orders placed by delivering MD yesterday to continue medications: nifedpine 60 mg qd, insulin glargine 20u qHS and sliding scale insulin, metformin 1000 mg bid , and zoloft, iron and seroquel. Endocrinology consultation placed, left VM Dr Castro at 0954 RPT #:[id number] END OF REPORT [facility] 2023-01-15 12:26:00 [facility] ([facility]) OB Delivery Note REPORT#:[id number] REPORT STATUS: Signed REPORT INITIALIZATION DATE:01/15/23 TIME: 1225 PATIENT: AMINTA NINO UNIT #: [id number] ROOM/BED: [facility]-A : 92 AGE: 32 SEX: F ATTEND: Jak Herrera MD ADM AUTHOR: Aranza James MD REPT SERVICE DT/TIME: 01/15/23 1226 * ALL edits or amendments must be made on the electronic/computer document * See Addendum OB Delivery Pre-delivery Admission EGA: Weeks: 34 Days: 5 Blood Loss/Details Blood loss at delivery: 100 Vaginal Delivery Vaginal Delivery Vaginal delivery: Medications/Devices used: oxytocin, cervidil Vaginal delivery: spontaneous Amniotic fluid: clear Anesthesia type: epidural anesthesia Laceration repair: no Placenta: manual extraction, following delivery, Thin small cord. Retained placenta, waited about 15 min, paused on oxytocin. oxytocin had been started upon delivery to ensure placenta delivery. . Due to large abdomen with large pannus, impossible to find fundus. ZAFAR massage performed, no placenta was delivered. Oxytocin paused. About 15 min had passed, and I was unable to feel placenta from wall of uterus, uterus was extremely anteverted. At this time, the cord and the placenta was attempted to have manual removal. Placenta was able to be manually extracted by hand with great difficulty due to contracted pelvis with low pubic bone, short mid pelvis and narrow SI joint. Android pelvis. I was unable to pass the banjo curette into fundus of uterus due to extreme anteversion and inability to straighten angle as it was impossible to insert my hand into vagina and another instrument to be able to grasp cervix and straighten uterus. BSUS performed and clear thin stripe noted as appropriate immediately . minimal bleeding, no cotyledone suspected to be retained although I am unable. Epidural was redosed by ansethesia during delivery of placenta. Patient was very anxious throughout the delivery and placenta, however, is recovery well. no lacerations of perineum. I discussed contracted pelvis, my hand at widest diameter is about 60 mm which I had great difficulty in inserting for manual sweep of uterus. I discussed that unlikley that she may deliver above 2kg to do manual sweep of fundus. Lacerations: Perineal laceration(s): none Extraction details OVD performed: no at 1237 Addendum 1: 01/15/23 1409 by Aranza James MD will continue medications: nifedpine 60 mg qd, insulin glargine 20u qHS and sliding scale insulin, metformin 1000 mg bid, and zoloft, and iron. can restart seroquel as well if needed for bedtime anxiety relief per patient at 1410 RPT #:[id number] END OF REPORT [facility] 2023-01-14 06:49:00 [facility] ([facility] OB Intrapart Prog Note REPORT#:[id number] REPORT STATUS: Signed REPORT INITIALIZATION DATE:01/14/23 TIME: 648 PATIENT: AMINTA NINO UNIT #: [id number] ROOM/BED: [address] : 92 AGE: 32 SEX: F ATTEND: Jak Herrera MD ADM AUTHOR: Darron Santacruz MD REPT SERVICE DT/TIME: 01/14/23 0649 * ALL edits or amendments must be made on the electronic/computer document * Subjective Subjective Comments: uncomfortable from bed, no ctx Objective General VS: Last Documented: Result Date Time Pulse Ox 94 01/14 0957 Pulse 90 01/14 0957 B/P Mean 101.0 01/14 0952 B/P 136/77 01/14 0952 Temp 98.6 01/14 0543 Resp 18 01/14 0044 FiO2 21 12/28 2030 O2 Delivery Room air 12/28 2029 Vital Signs Date Temp Pulse Resp B/P B/P Mean Pulse Ox FiO2 01/13-01/14 97.6-98.9 74-98 16-18 136-172/63-98 90.0-128.0 91-99 PATIENT WEIGHT: Weight (lb): 250 Weight (oz): Weight (kg): 113.600 FHR Evaluation Baby A: Baby A decelerations: variable (occ) Baby A FHR category: category 1 Result Findings/Data: Laboratory Tests: 01/14 01/14 0938 0538 Chemistry POC Glucose (65 - 110 mg/dL) 97 68 Microbiology: Date/Time Procedure - Status Source Growth 01/13 1302 MRSA Screen - WKST NASAL 01/13 1302 Streptococcus Culture - RES VAGINAL Diagnosis, Assessment Plan Free Text A P: 32 y/o EDC 02-20-23 [facility] at 34 5/7 weeks transported from [place] at 26.2 for sob, orthopnea, pulm edema. PNC w dr cristina clay 1) IDDM- hgba1c 6.6 at sending 11-13, on lantus 60 bid, humalog 50B, 60L, 70D Consulted rohan nutrition and DM counselor. fructosamine 11-18 198, 11/30 217, 200, current 01-11 lantus am/pm 136/110, humalog 100, 110, 144 and metformin to 1000 bid 2) Prematurity- s/p bmz x 2 (11-16,6) no mgso4 d/t pulm edema, kiran felipe 3) U/S 01-12- blaise coates vertex, anterior placenta, MATHEUS 6.5 decreased, S/D 11 increased near AEDF, EFW 1, 1683 gms, < 1 % decreased interval growth , BPP 10/19, cervix long closed 4) 6) Chr htn r/o YOVANY- bp at home 190/110, since adm bp 120-130/50-70 on labet 200 q 8 , procardia 30 xl bid. upcr 626, dropped to 241. nl ast/alt, plat. 24hu 12-28 834, 01-11 nl plat and lft, upcr 610 Came to l d late last night, cervidil placed at 0100, reasssuring fht for now, occ variables, glu and bp wnl PLAN- nubain dose now, sve and remove cervidil at 1300 Pt seen and d/w dr jerez at 1050 RPT #:[id number] END OF REPORT [facility] 2023-01-13 06:58:00 [facility] ([facility]) OB Antepartum Prog Note REPORT#:[id number] REPORT STATUS: Signed REPORT INITIALIZATION DATE:01/13/23 TIME: 657 PATIENT: AMINAT NINO UNIT #: [id number] ROOM/BED: [facility]-A : 92 AGE: 32 SEX: F ATTEND: Jak Herrera MD ADM AUTHOR: Darron Santacruz MD REPT SERVICE DT/TIME: 01/13/23657 * ALL edits or amendments must be made on the electronic/computer document * Objective Membranes: Intact Abdomen: gravid (morbidly obese), soft, no abnormal tenderness Lower extremities: Edema: none (thin legs) Calf tenderness: negative Diagnosis, Assessment Plan Diagnosis, Assessment Plan Free Text A P: 32 y/o EDC 02-20-23 [facility] at 34 4/7 weeks transported from [place] at 26.2 for sob, orthopnea, pulm edema. PNC w dr cristina clay 1) IDDM- hgba1c 6.6 at sending 11-13, on lantus 60 bid, humalog 50B, 60L, 70D Consulted rohan nutrition and DM counselor. fructosamine 11-18 198, 11/30 217, 200, current 01-11 lantus am/pm 136/110, humalog 100, 110, 144 and metformin to 1000 bid 01-11 glu still labile. PLAN- cpm, blaise to scan later today and make plan 2) Prematurity- s/p bmz x 2 (11-16,6) no mgso4 d/t pulm edema, kiran felipe 3) U/S 11- blaise coates vertex, anterior placenta, MATHEUS 6.5 decreased, S/D 11 increased near AEDF, EFW 1, 1683 gms, < 1 % decreased interval growth , BPP 8/8, cervix long closed 11- swp disc indication for delivery. pt wants trial of induction. PLAN- gbs vag culture sent, to l d, cervidil, ssi, pcn prev 01-02 blaise coates vertex, anterior placenta, MATHEUS 6.5 decreased, S/D 5.1 increased EFW 1730 gms, 6% % low normal interval growth interval gwoth, BPP 8/8, cervix long closed. prev 10-8 blaise coates vertex, anterior placenta, MATHEUS 8.5 decreased, S/D 4.9- 5.3 increased EFW 1384 gms, 5.6 % low normalinterval growth interval gwoth, BPP 8/8, cervix long closed. PLAN- rescan this 9-24 KA, S:D 4.9-5.3, EFW 1084, 5.6%, AFT 9.5, BPP 8/8, cx long closed. 9-4 gei Coates Cephalic CGA c/w dates UA-PI: 0.95 DVP: 2.7 Anatomy severely limited due to morbid obesity. PLAN- next scan in 2 weeks (the patient is wanting q week) The pt would like a "natural childbirth," but I explained to her she will need to be flexible, high risk of . The pt also would like only to give breast milk to baby and nothing else--again, I d/w her this may depend on many factors including whether she delivers early--which she may need to. Sometimes premies need umbilical lines and do not latch well, but we generally do all we can to help the baby get mom's breast milk as much as possible. 4) FWB- nst bid--> per pt's request, 1 hr TID after meals 11-1 nst cat 1 5) DVT prophy- lovenox 40 mg, had d/w pt and mom regarding why this is important. Pt requests to ambulate some, and have okayed this. Pt may also be a little stir crazy and need a little change of atmosphere. 6) Chr htn r/o YOVANY- bp at home 190/110, since adm bp 120-130/50-70 on labet 200 q 8 , procardia 30 xl bid. upcr 626, dropped to 241. nl ast/alt, plat. 24hu 554 mg. PLAN- still some labile BPs, continue to follow. 01-03 elev bp 189/102, 179/87, labet protocol ordered, but bp came down on its own. no s/s preE. preE labs wnl. upcr pendingPLAN- cpm 12-28 bp 130-140/60-70, 24hu 834mg. PLAN- cpm 10-16 bp 130-150/60-70, had htn 10-15 188/80, 176/79, incr proc to 60 bid, nl plat and lft, no other s/s preE. PLAN- repeat 24hu pending, cpm 7) ADHD/depression- stable on seroquel, zoloft 8) sleep apnea--pulm consult, per dr crocker, pt refusing cpap d/t claustrophobia. o2 sats are reassuring 9) fatigue--TSH nl, iron studies show bordeline deficiency, on iron and colace 10) Vulvar bump, vag odor and rash on abd. all asympt. no evidence of std. 9-15 wet mount neg for trich and bv, urine gc/chlam neg 11) pt requests to dc IV. I d/w her may need for BPmeds or diabetes meds, but she says we can stick her again if needed added Nifedipine (PO) protocol prn 12) Pulm edema, on adm- now resolved , echo at sending wnl, pt feels better since adm, had cxr on adm w min pulm edema. 13) Pruritic red spots on legs- per dr madrigal they seem to me self-inflicted. PLAN- hc cream and dph prn 14) "Bad gums"- h/o same, afraid to see dentist. PLAN- saline gargles 15) Nose bleeds 10-16- ocean saline spray prn 16) Insomnia- pt requests trazadone, on 300 q hs 17) Facial rash 01-13-23- pt concerned about staph infxn. PLAN- mrsa swab sent Pt seen and d/w dr josé at 1532 RPT #:[id number] END OF REPORT [facility] 2023-01-12 21:30:00 [facility] ([facility]) MFM Consultation Note REPORT#:[id number] REPORT STATUS: Signed REPORT INITIALIZATION DATE:01/12/23 TIME: 2129 PATIENT: AMINTA NINO UNIT #: [id number] ROOM/BED: [address] : 92 AGE: 32 SEX: F ATTEND: Jak Herrera MD ADM AUTHOR: Shabnam Jerez MD REPT SERVICE DT/TIME: 01/12/230 * ALL edits or amendments must be made on the electronic/computer document * See Addendum History of Present Illness HPI Chief complaint: Transferred for [facility] History Past History Allergies: Coded Allergies: latex (SWELLING 11/15/22) Objective Physical Exam HEENT: normocephalic Cardiovascular: regular rate and rhythm Respiratory: clear to auscultation Abdomen: non-tender, soft Extremities: edema (trace) Neuro/CYTOGENETICS TECHNOLOGIST: alert, oriented x 3, normal speech Skin: dry, intact, normal color, normal temperature, normal turgor Psychiatry: not homicidal Results Radiology data: ultrasound indications: 34 3/7 weeks GA FGR IDDM findings: coates vertex anterior placenta MATHEUS 6.5 decreased S/D 11 increased near AEDF EFW 1 97861 gms, < 1 % decreased interval growth BPP 8/8 cervix long closed Diagnosis, Assessment Plan Diagnosis, Assessment Plan Free Text A P: A/P 33 weeks 1- 2- FGR low normal growth. oligohydramnios, increased S/D 3-PIH w/o features of severity, stabilized 4-Class B DM; 5-Severe obesity / Excessive MWG 6- BMI 48 continue current care at 2145 Addendum 1: 01/13/23 1448 by Shabnam Jerez MD correction of EFW: 1683 gms minimal growth interval highly abnormal doppler of UA induction of labor being scheduled at 1450 RPT #:[id number] END OF REPORT [facility] 2023-01-12 06:59:00 [facility] ([facility]) OB Antepartum Prog Note REPORT#:[id number] REPORT STATUS: Signed REPORT INITIALIZATION DATE:01/12/23 TIME: 0659 PATIENT: AMINTA NINO UNIT #: [id number] ROOM/BED: [facility]-A : 92 AGE: 32 SEX: F ATTEND: Jak Herrera MD ADM AUTHOR: Darron Santacruz MD REPT SERVICE DT/TIME: 01/12/23 0659 * ALL edits or amendments must be made on the electronic/computer document * Subjective Subjective Patient reports: Patient reports: Yes no complaints, Yes normal movement, No abdominal pain, No vaginal bleeding, No leaking fluid, No contractions Objective VS: Last Documented: Result Date Time B/P Mean 100.0 01/12 947 B/P 133/76 01/12 0947 Temp 98.0 01/12 947 Pulse 90 01/12 947 Resp 16 01/12 947 Pulse Ox 98 01/11 2033 FiO2 21 12/28 2029 O2 Delivery Room air 12/28 2029 Vital Signs Date Temp Pulse Resp B/P B/P Mean Pulse Ox FiO2 01/11-01/12 97.7-98.3 87-103 16-18 133-147/73-81 99.0-109.0 98-99 PATIENT WEIGHT: Weight (lb): 250 Weight (oz): Weight (kg): 113.600 Membranes: Intact Abdomen: gravid (morbidly obese), soft, no abnormal tenderness Lower extremities: Edema: none (thin legs) Calf tenderness: negative Findings/data: Laboratory Tests: 01/11 1740 Chemistry Sodium (135 - 145 mEq/L) 137 Potassium (3.5 - 5.0 mEq/L) 3.7 Chloride (100 - 115 mEq/L) 101 Carbon Dioxide (22 - 31 mEq/L) 22 Anion Gap (10 - 20) 17.40 BUN (7 - 18 mg/dL) 10 Creatinine (0.5 - 1.0 mg/dL) 0.4 L Glomerular Filtr Rate (>60 ml/min) 136 Glucose (65 - 110 mg/dL) 64 L Calcium (8.4 - 10.2 mg/dL) 9.2 Total Bilirubin (0.2 - 1.0 mg/dL) 0.3 AST (15 - 37 units/L) 15 ALT (12 - 78 units/L) 18 Total Alk Phosphatase (46 - 116 units/L) 107 Total Protein (6.3 - 8.2 gm/dL) 7.3 Albumin (3.4 - 4.8 gm/dL) 2.5 L Hematology WBC (6.5 - 12.3 K/mm3) 12.3 RBC (3.51 - 4.69 M/mm3) 4.20 Hgb (10.1 - 13.8 g/dL) 11.5 Hct (32.5 - 41.8 %) 34.4 MCV (84.6 - 96.6 fL) 81.9 L MCH (27.3 - 33.9 pg) 27.4 MCHC (32.0 - 34.2 gm/dL) 33.4 RDW (12.2 - 16.3 %) 14.2 Plt Count (134 - 363 K/mm3) 273 MPV (9.2 - 12.7 fL) 9.3 Neut % (Auto) (57.9 - 77.3 %) 67.0 Lymph % (Auto) (14.5 - 29.7 %) 23.6 [place] % (Auto) (3.6 - 10.2 %) 7.2 Eos % (Auto) (0.0 - 3.0 %) 0.7 Baso % (Auto) (0.1 - 0.9 %) 0.3 Neut # (Auto) (K/mm3) 8.3 Lymph # (Auto) (K/mm3) 2.9 [place] # (Auto) (K/mm3) 0.9 Eos # (Auto) (K/mm3) 0.08 Baso # (Auto) (K/mm3) 0.0 Urines Ur Random Creatinine (mg/dL) 90.2 U Random Total Protein (mg/dL) 55.0 Protein/Creatinin Ratio (<200 mg/gcrea) 609.7 H Diagnosis, Assessment Plan Diagnosis, Assessment Plan Free Text A P: 32 y/o [facility] 02-20-23 [facility] at 34 3/7 weeks transported from [place] at 26.2 for sob, orthopnea, pulm edema. PNC w dr cristina clay 1) IDDM- hgba1c 6.6 at sending 11-13, on lantus 60 bid, humalog 50B, 60L, 70D Consulted rohan, nutrition and DM counselor. fructosamine 11-18 198, 11/30 217, 200, current 01-11 lantus am/pm 136/110, humalog 100, 110, 144 and metformin to 1000 bid 01-11 glu still labile. PLAN- cpm, blaise to scan later today and make plan 2) Prematurity- s/p bmz x 2 (-,6) no mgso4 d/t pulm edema, kiran felipe 3) U/S - blaise coates vertex, anterior placenta, MATHEUS 6.5 decreased, S/D 5.1 increased EFW 1730 gms, 6% % low normal interval growth interval gwoth, BPP 8/8, cervix long closed. PLAN- U/S today prev - blaise coates vertex, anterior placenta, MATHEUS 8.5 decreased, S/D 4.9- 5.3 increased EFW 1384 gms, 5.6 % low normalinterval growth interval gwoth, BPP 8/8, cervix long closed. PLAN- rescan this 9-24 KA, S:D 4.9-5.3, EFW 1084, 5.6%, AFT 9.5, BPP 8/8, cx long closed. 9-4 gei Coates Cephalic CGA c/w dates UA-PI: 0.95 DVP: 2.7 Anatomy severely limited due to morbid obesity. PLAN- next scan in 2 weeks (the patient is wanting q week) The pt would like a "natural childbirth," but I explained to her she will need to be flexible, high risk of . The pt also would like only to give breast milk to baby and nothing else--again, I d/w her this may depend on many factors including whether she delivers early--which she may need to. Sometimes premies need umbilical lines and do not latch well, but we generally do all we can to help the baby get mom's breast milk as much as possible. 4) FWB- nst bid--> per pt's request, 1 hr TID after meals 11-1 nst cat 1 5) DVT prophy- lovenox 40 mg, had d/w pt and mom regarding why this is important. Pt requests to ambulate some, and have okayed this. Pt may also be a little stir crazy and need a little change of atmosphere. 6) Chr htn r/o YOVANY- bp at home 190/110, since adm bp 120-130/50-70 on labet 200 q 8 , procardia 30 xl bid. upcr 626, dropped to 241. nl ast/alt, plat. 24hu 554 mg. PLAN- still some labile BPs, continue to follow. 10- elev bp 189/102, 179/87, labet protocol ordered, but bp came down on its own. no s/s preE. preE labs wnl. upcr pendingPLAN- cpm 10-17 bp 130-140/60-70, 24hu 834mg. PLAN- cpm 10-16 bp 130-150/60-70, had htn 10-15 188/80, 176/79, incr proc to 60 bid, nl plat and lft, no other s/s preE. PLAN- repeat 24hu pending, cpm 7) ADHD/depression- stable on seroquel, zoloft 8) sleep apnea--pulm consult, per dr crocker, pt refusing cpap d/t claustrophobia. o2 sats are reassuring 9) fatigue--TSH nl, iron studies show bordeline deficiency, on iron and colace 10) Vulvar bump, vag odor and rash on abd. all asympt. no evidence of std. 9-15 wet mount neg for trich and bv, urine gc/chlam neg 11) pt requests to dc IV. I d/w her may need for BPmeds or diabetes meds, but she says we can stick her again if needed added Nifedipine (PO) protocol prn 12) Pulm edema, on adm- now resolved , echo at sending wnl, pt feels better since adm, had cxr on adm w min pulm edema. 13) Pruritic red spots on legs- per dr madrigal they seem to me self-inflicted. PLAN- hc cream and dph prn 14) "Bad gums"- h/o same, afraid to see dentist. PLAN- saline gargles 15) Nose bleeds 10-16- ocean saline spray prn 16) Insomnia- pt requests trazadone, on 300 q hs Pt seen and d/w dr jerez at 1358 RPT #:[id number] END OF REPORT [facility] 2023-01-11 14:32:00 [facility] ([facility]) OB Antepartum Prog Note REPORT#:[id number] REPORT STATUS: Signed REPORT INITIALIZATION DATE:01/11/23 TIME: 1431 PATIENT: AMINTA NINO UNIT #: [id number] ROOM/BED: [address] : 92 AGE: 32 SEX: F ATTEND: Jak Herrera MD ADM AUTHOR: Juliet Colindres MD REPT SERVICE DT/TIME: 01/11/231431 * ALL edits or amendments must be made on the electronic/computer document * See Addendum Subjective Subjective Admission EGA: Weeks: 26 Days: 1 Patient reports: Patient reports: Yes no complaints, Yes normal movement, No abdominal pain, No vaginal bleeding, No leaking fluid, No contractions, No headache, No blurred vision, No scotomata, No shortness of breath, No new complaints (no leg pains/edema) Objective Nursing Documentation Review Nursing data: The data set between the solid lines has been imported from nursing documentation. Any exceptions have been noted below under Provider comments. ROM date: ROM time: Labor onset date: Labor onset time: Provider comments on imported nursing data: [] VS: Last Documented: Result Date Time B/P Mean 108.0 01/11 1330 Pulse Ox 99 01/11 1330 B/P 147/81 01/11 1330 Temp 97.7 01/11 1330 Pulse 91 01/11 1330 Resp 18 01/11 1330 FiO2 21 12/28 2029 O2 Delivery Room air 12/28 2029 Vital Signs Date Temp Pulse Resp B/P B/P Mean Pulse Ox FiO2 01/10-01/11 97.7-98.3 91-96 18 129-179/65-83 92.0-117.0 82-99 PATIENT WEIGHT: Weight (lb): 250 Weight (oz): Weight (kg): 113.600 Membranes: Intact Uterine activity: Monitor: toco Frequency (description): none HEENT: normocephalic w/o injury, no scleral icterus Lungs: unlabored breathing Neuro: Exam: alert, oriented x3, normal speech Abdomen: gravid (morbidly obese), soft, no abnormal tenderness Uterus: soft, non-tender Lower extremities: Edema: none (thin legs) Calf tenderness: negative Baby A: Baby A baseline: 135 bpm Baby A variability: moderate 6-25 bpm Baby A accelerations: 15 X 15 Baby A decelerations: none Baby A notes: Reactive Diagnosis, Assessment Plan Diagnosis, Assessment Plan Free Text A P: 32 y/o [facility] 02-20-23 [facility] at 34 2/7 weeks transported from [place] at 26.2 for sob, orthopnea, pulm edema. PNC w dr cristina clay 1) IDDM- hgba1c 6.6 at [facility] 11-13, on lantus 60 bid, humalog 50B, 60L, 70D Consulted rohan nutrition and DM counselor. fructosamine 11-18 198, 11/30 217, 200, 12-29 180 current insulin dose lantus am/pm 152/136, humalog 106, 122, 160 and metformin to 1000 bid Pt asleep past noon today--missed breakfast--nurse asked if could hold am lantus --okayed 10-30 cgm glu very brittle from 50-->200, low in late pm, early am, PLAN- decr insulin to lantus am/pm 136/110, humalog 100, 110, 144 10-27 cgm looking good, but sympt hypoglycemia in am. PLAN- decr pm lantus to 136 10-26 cgm looking excellent, < 120. dr madrigal aware. 10-20 CGM mostly below 200. i spoke w dr madrigal. he rec cpm 10-18 stressed imp of eating to avoid hypoglycemia, fructosamine pending. PLAN- cpm 10-16 on cgm, glu consistently high, probably as a result of bmz given -. PLAN- incr insulin by 15%, new doses lantus am/pm 152/160, humalog 106, 122, 160 10-13 back on cgm, reviewed w dr madrigal at bedside PLAN- incr metf to 100 bid 10-11 back on cgm. PLAN- i sent cgm graph to dr madrigal who will see pt in am, cpm 10-10 doing fingersticks fbs 92, B 80 L 138. PLAN- cpm, cgm should be back on by dinner tomorrow 10- i spoke w rohan and reviewed cgm, bs very labile, cgm will run out tonight. mom cant bring new one until tue. PLAN- finger sticks for /tue 10-6 glu very labile. pt seen by diab educ and flight crew ordnanceman. disc w rohan. PLAN- cpm, reeval - mon 10-5 occ glu low 67 lunchtime humalog held. disc w dr madrigal. rec cpm 10-2 cgm stable, remains above 200 most of the time, occ lows. pt thinks this is d/t diet. . i showed graph to dr madrigal, he rec incr by 15%. new dosing lantus 132/138. humalog B92 L 106, D138 9- cgm showed some improvement, but spikes after dinner . PLAN- incr humalog D to 120, fructosamine ordered for am. Pt seen w dr madrigal 9- glu sig drop. pt asympt. lunch humalog held. PLAN- cpm, dr madrigal to see pt 12-03 9-20 min change in dexcon 7 readings. will incr insulin by 15%, to lantus 115/ 120, humalog B80, L92, D 102, fructosamine - 217 2) Prematurity- s/p bmz x 2 (9-5,6) no mgso4 d/t pulm edema, krian felipe 3) U/S 10- blaise coates vertex, anterior placenta, MATHEUS 6.5 decreased, S/D 5.1 increased EFW 1730 gms, 6% % low normal interval growth interval gwoth, BPP 8/8, cervix long closed. PLAN- U/S soon prev 10- blaise coates vertex, anterior placenta, MATHEUS 8.5 decreased, S/D 4.9- 5.3 increased EFW 1384 gms, 5.6 % low normalinterval growth interval gwoth, BPP 8/8, cervix long closed. PLAN- rescan this 9-24 KA, S:D 4.9-5.3, EFW 1084, 5.6%, AFT 9.5, BPP 8/8, cx long closed. 9-4 gei Coates Cephalic CGA c/w dates UA-PI: 0.95 DVP: 2.7 Anatomy severely limited due to morbid obesity. PLAN- next scan in 2 weeks (the patient is wanting q week) The pt would like a "natural childbirth," but I explained to her she will need to be flexible, high risk of . The pt also would like only to give breast milk to baby and nothing else--again, I d/w her this may depend on many factors including whether she delivers early--which she may need to. Sometimes premies need umbilical lines and do not latch well, but we generally do all we can to help the baby get mom's breast milk as much as possible. 4) FWB- nst bid--> per pt's request, 1 hr TID after meals - nst cat 1 10- nst 140 non reactive, min variability. bpp 8/ 10-26 nst cat 1, occ sharp variable but overall reassuring. PLAN- cont nst q8h 5) DVT prophy- lovenox 40 mg, had d/w pt and mom regarding why this is important. Pt requests to ambulate some, and have okayed this. Pt may also be a little stir crazy and need a little change of atmosphere. 6) Chr htn r/o YOVANY- bp at home 190/110, since adm bp 120-130/50-70 on labet 200 q 8 , procardia 30 xl bid. upcr 626, dropped to 241. nl ast/alt, plat. 24hu 554 mg. PLAN- still some labile BPs, continue to follow. BPs today: 129-179/65-85. As pt now awake, and wouldn't want to be awoken for am blood work, will get CBC, CMP and Urine pr/creat while awake today. 10- elev bp 189/102, 179/87, labet protocol ordered, but bp came down on its own. no s/s preE. preE labs wnl. upcr pendingPLAN- cpm 10-17 bp 130-140/60-70, 24hu 834mg. PLAN- cpm 10-16 bp 130-150/60-70, had htn 10- 188/80, 176/79, incr proc to 60 bid, nl plat and lft, no other s/s preE. PLAN- repeat 24hu pending, cpm 7) ADHD/depression- stable on seroquel, zoloft 8) sleep apnea--pulm consult, per dr crocker, pt refusing cpap d/t claustrophobia. o2 sats are reassuring Pt not wearing mask. Pt slept through noon today. 9) fatigue--TSH nl, iron studies show bordeline deficiency, on iron and colace 10) Vulvar bump, vag odor and rash on abd. all asympt. no evidence of std. 9-15 wet mount neg for trich and bv, urine gc/chlam neg 11) pt requests to dc IV. I d/w her may need for BPmeds or diabetes meds, but she says we can stick her again if needed added Nifedipine (PO) protocol prn 12) Pulm edema, on adm- now resolved , echo at sending wnl, pt feels better since adm, had cxr on adm w min pulm edema. 13) Pruritic red spots on legs- per dr madrigal they seem to me self-inflicted. PLAN- hc cream and dph prn--did not see today 01/11 14) "Bad gums"- h/o same, afraid to see dentist. PLAN- saline gargles 15) Nose bleeds 10-16- ocean saline spray prn 16) Insomnia- pt requests trazadone, on 300 q hs at 1440 Addendum 1: 01/11/231657 by Juliet Colindres MD labs ordered, nurse aware, but not in lab could have ordered am, but pt doesn't like to be distrubed in am. at 1659 RPT #:[id number] END OF REPORT [facility] 2023-01-10 08:18:00 [facility] OB Antepartum Prog Note REPORT#:[id number] REPORT STATUS: Signed REPORT INITIALIZATION DATE:01/10/23 TIME: 817 PATIENT: AMINTA NINO UNIT #: [id number] ROOM/BED: [address] : 92 AGE: 32 SEX: F ATTEND: Jak Herrera MD ADM AUTHOR: Darron Santacruz MD REPT SERVICE DT/TIME: 01/10/23817 * ALL edits or amendments must be made on the electronic/computer document * Subjective Subjective Patient reports: Patient reports: Yes no complaints, Yes normal movement, No abdominal pain, No vaginal bleeding, No leaking fluid, No contractions Objective VS: Last Documented: Result Date Time B/P Mean 100.0 01/10 1301 B/P 137/77 01/10 1301 Temp 98.2 01/10 1301 Pulse 97 01/10 1301 Resp 16 01/10 1301 Pulse Ox 98 01/10 1300 FiO2 21 12/28 2029 O2 Delivery Room air 12/28 2029 Vital Signs Date Temp Pulse Resp B/P B/P Mean Pulse Ox FiO2 01/09-01/10 98.2-98.5 88-104 16 116-142/58-77 78.0-100.0 98 PATIENT WEIGHT: Weight (lb): 250 Weight (oz): Weight (kg): 113.600 Membranes: Intact Abdomen: gravid (obese), soft, no abnormal tenderness Lower extremities: Edema: none Calf tenderness: negative Diagnosis, Assessment Plan Diagnosis, Assessment Plan Free Text A P: 32 y/o EDC 02-20-23 [facility] at 34 1/7 weeks transported from [place] at 26.2 for sob, orthopnea, pulm edema. PNC w dr cristina clay 1) IDDM- hgba1c 6.6 at sending 11-13, on lantus 60 bid, humalog 50B, 60L, 70D Consulted rohan, nutrition and DM counselor. fructosamine 11-18 198, 11/30 217, 200, 12-29 180 current insulin dose lantus am/pm 152/136, humalog 106, 122, 160 and metformin to 1000 bid 10-30 cgm glu very brittle from 50-->200, low in late pm, early am, PLAN- decr insulin to lantus am/pm 136/110, humalog 100, 110, 144 10-27 cgm looking good, but sympt hypoglycemia in am. PLAN- decr pm lantus to 136 10-26 cgm looking excellent, < 120. dr madrigal aware. 10-20 CGM mostly below 200. i spoke w dr madrigal. he rec cpm -18 stressed imp of eating to avoid hypoglycemia, fructosamine pending. PLAN- cpm 10-16 on cgm, glu consistently high, probably as a result of bmz given 12-26. PLAN- incr insulin by 15%, new doses lantus am/pm 152/160, humalog 106, 122, 160 10-13 back on cgm, reviewed w dr madrigal at bedside PLAN- incr metf to 100 bid 10-11 back on cgm. PLAN- i sent cgm graph to dr madrigal who will see pt in am, cpm 10-10 doing fingersticks fbs 92, B 80 L 138. PLAN- cpm, cgm should be back on by dinner tomorrow 10- i spoke w rohan and reviewed cgm, bs very labile, cgm will run out tonight. mom cant bring new one until tue. PLAN- finger sticks for /tue 10-6 glu very labile. pt seen by diab educ and flight crew ordnanceman. disc w rohan. PLAN- cpm, reeval 12-20 mon 10-5 occ glu low 67 lunchtime humalog held. disc w dr madrigal. rec cpm 10-2 cgm stable, remains above 200 most of the time, occ lows. pt thinks this is d/t diet. . i showed graph to dr madrigal, he rec incr by 15%. new dosing lantus 132/138. humalog B92 L 106, D138 9-29 cgm showed some improvement, but spikes after dinner . PLAN- incr humalog D to 120, fructosamine ordered for am. Pt seen w dr madrigal - glu sig drop. pt asympt. lunch humalog held. PLAN- cpm, dr madrigal to see pt - 9-20 min change in dexcon 7 readings. will incr insulin by 15%, to lantus 115/ 120, humalog B80, L92, D 102, fructosamine 9- 217 2) Prematurity- s/p bmz x 2 (9-5,6) no mgso4 d/t pulm edema, kiran felipe 3) U/S - blaise coates vertex, anterior placenta, MATHEUS 6.5 decreased, S/D 5.1 increased EFW 1730 gms, 6% % low normal interval growth interval gwoth, BPP 8/8, cervix long closed. PLAN- U/S soon prev 10- blaise coates vertex, anterior placenta, MATHEUS 8.5 decreased, S/D 4.9- 5.3 increased EFW 1384 gms, 5.6 % low normalinterval growth interval gwoth, BPP 8/8, cervix long closed. PLAN- rescan this 9-24 KA, S:D 4.9-5.3, EFW 1084, 5.6%, AFT 9.5, BPP 8/8, cx long closed. 9-4 gei Coates Cephalic CGA c/w dates UA-PI: 0.95 DVP: 2.7 Anatomy severely limited due to morbid obesity. PLAN- next scan in 2 weeks (the patient is wanting q week) The pt would like a "natural childbirth," but I explained to her she will need to be flexible, high risk of . The pt also would like only to give breast milk to baby and nothing else--again, I d/w her this may depend on many factors including whether she delivers early--which she may need to. Sometimes premies need umbilical lines and do not latch well, but we generally do all we can to help the baby get mom's breast milk as much as possible. 4) FWB- nst bid--> per pt's request, 1 hr TID after meals 10-30 nst cat 1 10- nst 140 non reactive, min variability. bpp 8/ 10- nst cat 1, occ sharp variable but overall reassuring. PLAN- cont nst q8h 5) DVT prophy- lovenox 40 mg, had d/w pt and mom regarding why this is important. Pt requests to ambulate some, and have okayed this. Pt may also be a little stir crazy and need a little change of atmosphere. 6) Chr htn r/o YOVANY- bp at home 190/110, since adm bp 120-130/50-70 on labet 200 q 8 , procardia 30 xl bid. upcr 626, dropped to 241. nl ast/alt, plat. 24hu 554 mg. PLAN- still some labile BPs, continue to follow. 10-23 elev bp 189/102, 179/87, labet protocol ordered, but bp came down on its own. no s/s preE. preE labs wnl. upcr pendingPLAN- cpm 10-17 bp 130-140/60-70, 24hu 834mg. PLAN- cpm 10-16 bp 130-150/60-70, had htn 10-15 188/80, 176/79, incr proc to 60 bid, nl plat and lft, no other s/s preE. PLAN- repeat 24hu pending, cpm 7) ADHD/depression- stable on seroquel, zoloft 8) sleep apnea--pulm consult, per dr crocker, pt refusing cpap d/t claustrophobia. o2 sats are reassuring 9) fatigue--TSH nl, iron studies show bordeline deficiency, on iron and colace 10) Vulvar bump, vag odor and rash on abd. all asympt. no evidence of std. 9-15 wet mount neg for trich and bv, urine gc/chlam neg 11) pt requests to dc IV. I d/w her may need for BPmeds or diabetes meds, but she says we can stick her again if needed added Nifedipine (PO) protocol prn 12) Pulm edema, on adm- now resolved , echo at sending wnl, pt feels better since adm, had cxr on adm w min pulm edema. 13) Pruritic red spots on legs- per dr madrigal they seem to me self-inflicted. PLAN- hc cream and dph prn 14) "Bad gums"- h/o same, afraid to see dentist. PLAN- saline gargles 15) Nose bleeds 10-16- ocean saline spray prn 16) Insomnia- pt requests trazadone, on 300 q hs Pt seen and d/w dr ochoa at 1559 RPT #:[id number] END OF REPORT [facility] 2023-01-09 08:16:00 [facility] OB Antepartum Prog Note REPORT#:[id number] REPORT STATUS: Signed REPORT INITIALIZATION DATE:01/09/23 TIME: 815 PATIENT: AMINTA NINO UNIT #: [id number] ROOM/BED: [address] : [birth year] AGE: 32 SEX: F ATTEND: Jak Herrera MD ADM AUTHOR: Steph Han MD REPT SERVICE DT/TIME: 01/09/23 0816 * ALL edits or amendments must be made on the electronic/computer document * Subjective Subjective Patient reports: Patient reports: Yes: normal movement. No: complaints, abdominal pain, vaginal bleeding , leaking fluid, contractions, headache, blurred vision, scotomata. Objective Membranes: Intact Uterine activity: Monitor: toco Frequency (description): none HEENT: normocephalic w/o injury, no scleral icterus Lungs: unlabored breathing Neuro: Exam: alert, oriented x3, normal speech Abdomen: gravid (obese), soft, no abnormal tenderness Uterus: soft, non-tender Lower extremities: Edema: none Calf tenderness: negative Baby A: Baby A baseline: 140 bpm Baby A variability: moderate 6-25 bpm Baby A accelerations: 15 X 15 Baby A decelerations: none Baby A notes: Reactive Diagnosis, Assessment Plan Diagnosis, Assessment Plan Free text A P: 32 y/o EDC 02-20-23 [facility] at 33 5/7 weeks transported from [place] at 26.2 for sob, orthopnea, pulm edema. PNC w dr cristina clay 1) IDDM- hgba1c 6.6 at sending 11-13, on lantus 60 bid, humalog 50B, 60L, 70D Consulted rohan, nutrition and DM counselor. fructosamine 11-18 198, 11/30 217, 200, 12-29 180 current insulin dose lantus am/pm 152/160, humalog 106, 122, 160 and metformin to 1000 bid 01-09 Hypoglycemia in AM and insulin held. PLAN- Will likely need further decrease in insulin 01-06 cgm looking excellent, < 120. dr madrigal aware. 10- CGM mostly below 200. i spoke w dr madrigal. he rec cpm 12-29 stressed imp of eating to avoid hypoglycemia, fructosamine pending. PLAN- cpm - on cgm, glu consistently high, probably as a result of bmz given 12-26. PLAN- incr insulin by 15%, new doses lantus am/pm 152/160, humalog 106, 122, 160 - back on cgm, reviewed w dr madrigal at bedside PLAN- incr metf to 100 bid 10- back on cgm. PLAN- i sent cgm graph to dr madrigal who will see pt in am, cpm 10-10 doing fingersticks fbs 92, B 80 L 138. PLAN- cpm, cgm should be back on by dinner tomorrow 12-20 i spoke kushal madrigal and reviewed cgm, bs very labile, cgm will run out tonight. mom cant bring new one until tue. PLAN- finger sticks for /tue 10-6 glu very labile. pt seen by diab educ and flight crew ordnanceman. disc w rohan. PLAN- cpm, reeval 12-20 mon 10-5 occ glu low 67 lunchtime humalog held. disc w dr madrigal. rec cpm 10-2 cgm stable, remains above 200 most of the time, occ lows. pt thinks this is d/t diet. . i showed graph to dr madrigal, he rec incr by 15%. new dosing lantus 132/138. humalog B92 L 106, D138 9- cgm showed some improvement, but spikes after dinner . PLAN- incr humalog D to 120, fructosamine ordered for am. Pt seen w dr madrigal - glu sig drop. pt asympt. lunch humalog held. PLAN- cpm, dr madrigal to see pt 12-03 9-20 min change in dexcon 7 readings. will incr insulin by 15%, to lantus 115/ 120, humalog B80, L92, D 102, fructosamine 11-30 217 2) Prematurity- s/p bmz x 2 (9-5,6) no mgso4 d/t pulm edema, kiran felipe 3) U/S - blaise coates vertex, anterior placenta, MATHEUS 6.5 decreased, S/D 5.1 increased EFW 1730 gms, 6% % low normal interval growth interval gwoth, BPP 8/8, cervix long closed prev 10- blaise coates vertex, anterior placenta, MATHEUS 8.5 decreased, S/D 4.9- 5.3 increased EFW 1384 gms, 5.6 % low normalinterval growth interval gwoth, BPP 8/8, cervix long closed. PLAN- rescan this 9-24 KA, S:D 4.9-5.3, EFW 1084, 5.6%, AFT 9.5, BPP 8/8, cx long closed. 9-4 gei Coates Cephalic CGA c/w dates UA-PI: 0.95 DVP: 2.7 Anatomy severely limited due to morbid obesity. PLAN- next scan in 2 weeks (the patient is wanting q week) The pt would like a "natural childbirth," but I explained to her she will need to be flexible, high risk of . The pt also would like only to give breast milk to baby and nothing else--again, I d/w her this may depend on many factors including whether she delivers early--which she may need to. Sometimes premies need umbilical lines and do not latch well, but we generally do all we can to help the baby get mom's breast milk as much as possible. 4) FWB- nst bid--> per pt's request, 1 hr TID after meals - nst 140 non reactive, min variability. PLAN bpp ordered - nst cat 1, occ sharp variable but overall reassuring. PLAN- cont nst q8h 5) DVT prophy- lovenox 40 mg, had d/w pt and mom regarding why this is important. Pt requests to ambulate some, and have okayed this. Pt may also be a little stir crazy and need a little change of atmosphere. 6) Chr htn r/o YOVANY- bp at home 190/110, since adm bp 120-130/50-70 on labet 200 q 8 , procardia 30 xl bid. upcr 626, dropped to 241. nl ast/alt, plat. 24hu 554 mg. PLAN- still some labile BPs, continue to follow. 10- elev bp 189/102, 179/87, labet protocol ordered, but bp came down on its own. no s/s preE. preE labs wnl. upcr pendingPLAN- cpm 10-17 bp 130-140/60-70, 24hu 834mg. PLAN- cpm 10-16 bp 130-150/60-70, had htn 10-15 188/80, 176/79, incr proc to 60 bid, nl plat and lft, no other s/s preE. PLAN- repeat 24hu pending, cpm 7) ADHD/depression- stable on seroquel, zoloft 8) sleep apnea--pulm consult, per dr crocker, pt refusing cpap d/t claustrophobia. o2 sats are reassuring 9) fatigue--TSH nl, iron studies show bordeline deficiency, on iron and colace 10) Vulvar bump, vag odor and rash on abd. all asympt. no evidence of std. 9-15 wet mount neg for trich and bv, urine gc/chlam neg 11) pt requests to dc IV. I d/w her may need for BPmeds or diabetes meds, but she says we can stick her again if needed added Nifedipine (PO) protocol prn 12) Pulm edema, on adm- now resolved , echo at sending wnl, pt feels better since adm, had cxr on adm w min pulm edema. 13) Pruritic red spots on legs- per dr madrigal they seem to me self-inflicted. PLAN- hc cream and dph prn 14) "Bad gums"- h/o same, afraid to see dentist. PLAN- saline gargles 15) Nose bleeds 1016- ocean saline spray prn 16) Insomnia- pt requests trazadone, which has worked in past. PLAN- 300 q hs at 1607 RPT #:[id number] END OF REPORT [facility] 2023-01-08 14:06:00 [facility] ([facility]) OB Antepartum Prog Note REPORT#:[id number] REPORT STATUS: Signed REPORT INITIALIZATION DATE:01/08/23 TIME: 1405 PATIENT: AMINTA NINO UNIT #: [id number] ROOM/BED: [address] : [birth year] AGE: 32 SEX: F ATTEND: Jak Herrera MD ADM AUTHOR: Kya Sultana MD REPT SERVICE DT/TIME: 01/08/23 1406 * ALL edits or amendments must be made on the electronic/computer document * Subjective Subjective Admission EGA: Weeks: 26 Days: 1 Current EGA: Current EGA(wks): 33 Current EGA(days): 6 Patient reports: Patient reports: Yes: leaking fluid (negative ROM this AM), normal movement. No: new complaints. Free Text Subj Notes Free Text Subj Notes: 32 y/o EDC 02-20-23 [facility] at 33 5/7 weeks transported from [place] at 26.2 for sob, orthopnea, pulm edema. Patient has IDDm on high dose insulin and Metformin. She has PIH on Labetalol and Procardia. She has no new complaints. Objective Nursing Documentation Review Nursing data: The data set between the solid lines has been imported from nursing documentation. Any exceptions have been noted below under Provider comments. ROM date: ROM time: Labor onset date: Labor onset time: Provider comments on imported nursing data: [] VS: Last Documented: Result Date Time B/P Mean 102.0 01/08 1216 Pulse Ox 99 01/08 1216 B/P 138/77 01/08 1216 Temp 97.8 01/08 1216 Pulse 88 01/08 1216 Resp 18 01/08 1216 FiO2 21 12/28 2030 O2 Delivery Room air 12/28 2030 Vital Signs Date Temp Pulse Resp B/P B/P Mean Pulse Ox FiO2 01/07-01/08 97.8-98.3 85-202 17-19 124-143/63-81 88.0-106.0 82-99 PATIENT WEIGHT: Weight (lb): 250 Weight (oz): Weight (kg): 113.600 Medications: Active Meds + DC'd Last 24 Hrs Sertraline HCl (ZOLOFT 50 MG TAB) 100 MG BEDTIME PO Metformin HCl (GLUCOPHAGE 500MG TAB) 1,000 MG DAILY 1800 PO Nifedipine (PROCARDIA XL 60 MG) 60 MG DAILY 1800 PO Enoxaparin Sodium (LOVENOX) 50 MG DAILY 1700 SUBQ Multivitamin Hematinic Therapeutic (FERRALET 90 TABLET) 1 EACH DAILY 1700 PO Metformin HCl (GLUCOPHAGE 500MG TAB) 1,000 MG DAILY 0600 PO Nifedipine (PROCARDIA XL 60 MG) 60 MG DAILY 0600 PO Labetalol HCl (LABETALOL HCL 200 MG) 200 MG Q8HR PO Insulin Glargine (LANTUS/SEMGLEE INSULIN 100 UNITS/ML) 136 UNIT BEDTIME SUBQ Trazodone HCl (traZODone 50 MG TAB) 300 MG BEDTIME PO Enoxaparin Sodium (LOVENOX) 50 MG DAILY SUBQ (DC) Hydralazine HCl (hydrALAZINE HCL 20MG) 10 MG ASDIR PRN IV Labetalol HCl (NORMODYNE 100 MG/20 ML VIAL) 40 MG ASDIR PRN IV Labetalol HCl (NORMODYNE 100 MG/20 ML VIAL) 80 MG ASDIR PRN IV Al Hydrox/Mg Hydrox/Simethicone (MYLANTA 30 ML SUSP) 30 ML Q6H PRN PRN PO Insulin Human Lispro (HumaLOG 3ML VIAL) 122 UNITS AC MILDRED SUBQ Insulin Glargine (LANTUS/SEMGLEE INSULIN 100 UNITS/ML) 152 UNIT AC BK SUBQ Insulin Human Lispro (HumaLOG 3ML VIAL) 106 UNITS AC BK SUBQ Insulin Glargine (LANTUS/SEMGLEE INSULIN 100 UNITS/ML) 160 UNIT BEDTIME SUBQ (DC) Insulin Human Lispro (HumaLOG 3ML VIAL) 160 UNITS AC DIN SUBQ Sodium Chloride (OCEAN NASAL SPRAY 45 ML) 2 SPRAY Q4H PRN PRN NASAL Nifedipine (PROCARDIA XL 60 MG) 60 MG BID PO (DC) Metformin HCl (GLUCOPHAGE 500MG TAB) 1,000 MG BID PO (DC) Labetalol HCl (LABETALOL HCL 200 MG) 200 MG Q8H PO (DC) Nifedipine (ADALAT 10 MG CAP) 20 MG ASDIR PRN PO Dextrose (Glutose-15 (40%)) 37.5 ML Q15M PRN PRN BUCCAL Glucagon (GLUCAGON 1 MG/VIAL) 1 MG ASDIR PRN IM Dextrose/Water (DEXTROSE 50% IN WATER 50 ML SYR) 50 ML ASDIR PRN IV (CKD ) Acetaminophen/Butalbital/Caffe ine (Fioricet 50-300-40 MG Capsule) 2 EACH Q6H PRN PRN PO Multivitamin Hematinic Therapeutic (FERRALET 90 TABLET) 1 EACH DAILY PO (DC) Docusate Sodium (DOCUSATE SODIUM 100 MG CAP) 200 MG BEDTIME PO Acetaminophen (ACETAMINOPHEN 325 MG TAB) 650 MG Q4H PRN PRN PO Patient Own Medication (PATIENT'S OWN MEDICATION) 2 EACH ASDIR PO Hydroxyzine HCl (ATARAX) 50 MG BEDTIME PRN PO Sertraline HCl (ZOLOFT 50 MG TAB) 100 MG DAILY PO (DC) Quetiapine Fumarate (SEROquel 100MG TABLET) 100 MG BEDTIME PO Calcium Gluconate (CA GLUCONATE 1 GM/10 ML VIAL) 1,000 MG BOLUS ASDIR PRN IV Membranes: Intact Uterine activity: Monitor: toco Frequency (description): none HEENT: normocephalic w/o injury, pupils equal, no scleral icterus, buffalo hump Cardiac: regular rate Lungs: unlabored breathing Neuro: Exam: alert, oriented x3, normal speech Abdomen: gravid (obese), soft, no abnormal tenderness, no guarding Uterus: soft, non-tender Lower extremities: Edema: trace (round red dots on legs belowkn) Calf tenderness: negative Baby A: Baby A baseline: 140 bpm Baby A variability: moderate 6-25 bpm Baby A accelerations: 15 X 15 Baby A decelerations: none Baby A FHR category: category 1 Findings/data: Laboratory Tests: 01/08 0039 Other Body Source Membranes Rupture NON-RUPTURED Recent Impressions: ULTRASOUND - US FET BIO PH FL W/O NST 01/07 1645 Report Impression - Status: SIGNED Entered: 01/07/2023 3413 Impression: Biophysical profile score is 8 of 8. MATHEUS is at the lower limits of normal, measuring 6.4 cm. Impression By: [email or web address] - Agatha George MD Diagnosis, Assessment Plan Diagnosis, Assessment Plan Free text A P: 32 [facility] [place] at [facility] for sob, orthopnea, pulm edema. She also has IDDM and mild PIH. She has been declining her AM insulin because she doesn't eat breakfast. Her BS's are generally okay on her CGM. BPP = 8/8. We will continue her current care for now. at 1414 RPT #:[id number] END OF REPORT [facility] 2023-01-07 19:41:00 [facility] ([facility] OB Antepartum Prog Note REPORT#:[id number] REPORT STATUS: Signed REPORT INITIALIZATION DATE:01/07/23 TIME: 1940 PATIENT: AMINTA NINO UNIT #: [id number] ROOM/BED: [address] : [birth year] AGE: 32 SEX: F ATTEND: Jak Herrera MD ADM AUTHOR: Leta Cantrell MD REPT SERVICE DT/TIME: 01/07/231940 * ALL edits or amendments must be made on the electronic/computer document * Subjective Free Text Subj Notes Free Text Subj Notes: Called by nurse due to patient non-compliance with meds in am. Patient refusing all morning meds due to time given. Nurse requests change in time to 0500 with all med times adjusted from there Diagnosis, Assessment Plan Diagnosis, Assessment Plan Assessment: Non-compliance of medications Plan: Reviewed all medications with nurse and verified that time timing they could be given would not create and adverse reactions. The most complicated was her insulin. Patient is on a CGM and having lows due to her not eating in a timely fashion in relationship to dosing. Patient has been refusing morning medications. In order to try to improve her compliance, OK'd changing timing of meds and will continue to monitor closely. at 1950 RPT #:[id number] END OF REPORT [facility] 2023-01-07 07:02:00 [facility] OB Antepartum Prog Note REPORT#:[id number] REPORT STATUS: Signed REPORT INITIALIZATION DATE:01/07/23 TIME: 07 PATIENT: AMINTA NINO UNIT #: [id number] ROOM/BED: [address] : [birth year] AGE: 32 SEX: F ATTEND: Jak Herrera MD ADM AUTHOR: Darron Santacruz MD REPT SERVICE DT/TIME: 01/07/23 0702 * ALL edits or amendments must be made on the electronic/computer document * Subjective Subjective Patient reports: Patient reports: Yes no complaints, Yes normal movement, No abdominal pain, No vaginal bleeding, No leaking fluid, No contractions Comments: had sympt hypoglycemia early this am in 50 Objective VS: Last Documented: Result Date Time B/P Mean 95.0 01/07 1214 Pulse Ox 98 01/07 1214 B/P 130/73 01/07 1214 Temp 98.6 01/07 1214 Pulse 95 01/07 1214 Resp 18 01/07 1214 FiO2 21 12/28 2029 O2 Delivery Room air 12/28 2029 Vital Signs Date Temp Pulse Resp B/P B/P Mean Pulse Ox FiO2 01/06-01/07 97.7-98.6 89-96 16-18 125-153/67-79 91.0-109.0 96-98 PATIENT WEIGHT: Weight (lb): 250 Weight (oz): Weight (kg): 113.600 Membranes: Intact Abdomen: gravid (obese), soft, no abnormal tenderness, no guarding Lower extremities: Edema: trace (round red dots on legs belowkn) Calf tenderness: negative Diagnosis, Assessment Plan Diagnosis, Assessment Plan Free Text A P: 32 y/o [facility] 02-20-23 [facility] at 33 5/7 weeks transported from [place] at 26.2 for sob, orthopnea, pulm edema. PNC w dr cristina clay 1) IDDM- hgba1c 6.6 at sending 11-13, on lantus 60 bid, humalog 50B, 60L, 70D Consulted rohan, nutrition and DM counselor. fructosamine 11-18 198, 11/30 217, 200, 12-29 180 current insulin dose lantus am/pm 152/160, humalog 106, 122, 160 and metformin to 1000 bid - cgm looking good, but sympt hypoglycemia in am. PLAN- decr pm lantus to 136 - cgm looking excellent, < 120. dr madrigal aware. 10-20 CGM mostly below 200. i spoke w dr madrigal. he rec cpm -18 stressed imp of eating to avoid hypoglycemia, fructosamine pending. PLAN- cpm 10-16 on cgm, glu consistently high, probably as a result of bmz given 12-26. PLAN- incr insulin by 15%, new doses lantus am/pm 152/160, humalog 106, 122, 160 10-13 back on cgm, reviewed w dr madrigal at bedside PLAN- incr metf to 100 bid 10-11 back on cgm. PLAN- i sent cgm graph to dr madrigal who will see pt in am, cpm 10-10 doing fingersticks fbs 92, B 80 L 138. PLAN- cpm, cgm should be back on by dinner tomorrow 12-20 i spoke w rohan and reviewed cgm, bs very labile, cgm will run out tonight. mom cant bring new one until tue. PLAN- finger sticks for /tue 10-6 glu very labile. pt seen by diab educ and flight crew ordnanceman. disc w rohan. PLAN- cpm, reeval 12-20 mon 10- occ glu low 67 lunchtime humalog held. disc w dr madrigal. rec cpm 10-2 cgm stable, remains above 200 most of the time, occ lows. pt thinks this is d/t diet. . i showed graph to dr madrigal, he rec incr by 15%. new dosing lantus 132/138. humalog B92 L 106, D138 9- cgm showed some improvement, but spikes after dinner . PLAN- incr humalog D to 120, fructosamine ordered for am. Pt seen w dr madrigal 9- glu sig drop. pt asympt. lunch humalog held. PLAN- cpm, dr madrigal to see pt 12-03 9-20 min change in dexcon 7 readings. will incr insulin by 15%, to lantus 115/ 120, humalog B80, L92, D 102, fructosamine 11-30 217 2) Prematurity- s/p bmz x 2 (9-5,6) no mgso4 d/t pulm edema, kiran felipe 3) U/S - blaise coates vertex, anterior placenta, MATHEUS 6.5 decreased, S/D 5.1 increased EFW 1730 gms, 6% % low normal interval growth interval gwoth, BPP 10/19, cervix long closed prev - blaise coates vertex, anterior placenta, MATHEUS 8.5 decreased, S/D 4.9- 5.3 increased EFW 1384 gms, 5.6 % low normalinterval growth interval gwoth, BPP 8/8, cervix long closed. PLAN- rescan this weekend 9-24 KA, S:D 4.9-5.3, EFW 1084, 5.6%, AFT 9.5, BPP 8/8, cx long closed. 9-4 gei Coates Cephalic CGA c/w dates UA-PI: 0.95 DVP: 2.7 Anatomy severely limited due to morbid obesity. PLAN- next scan in 2 weeks (the patient is wanting q week) The pt would like a "natural childbirth," but I explained to her she will need to be flexible, high risk of . The pt also would like only to give breast milk to baby and nothing else--again, I d/w her this may depend on many factors including whether she delivers early--which she may need to. Sometimes premies need umbilical lines and do not latch well, but we generally do all we can to help the baby get mom's breast milk as much as possible. 4) FWB- nst bid--> per pt's request, 1 hr TID after meals 10- nst 140 non reactive, min variability. PLAN bpp ordered 10- nst cat 1, occ sharp variable but overall reassuring. PLAN- cont nst q8h 5) DVT prophy- lovenox 40 mg, had d/w pt and mom regarding why this is important. Pt requests to ambulate some, and have okayed this. Pt may also be a little stir crazy and need a little change of atmosphere. 6) Chr htn r/o YOVANY- bp at home 190/110, since adm bp 120-130/50-70 on labet 200 q 8 , procardia 30 xl bid. upcr 626, dropped to 241. nl ast/alt, plat. 24hu 554 mg. PLAN- still some labile BPs, continue to follow. 10- elev bp 189/102, 179/87, labet protocol ordered, but bp came down on its own. no s/s preE. preE labs wnl. upcr pendingPLAN- cpm 10-17 bp 130-140/60-70, 24hu 834mg. PLAN- cpm 10-16 bp 130-150/60-70, had htn 10-15 188/80, 176/79, incr proc to 60 bid, nl plat and lft, no other s/s preE. PLAN- repeat 24hu pending, cpm 7) ADHD/depression- stable on seroquel, zoloft 8) sleep apnea--pulm consult, per dr crocker, pt refusing cpap d/t claustrophobia. o2 sats are reassuring 9) fatigue--TSH nl, iron studies show bordeline deficiency, on iron and colace 10) Vulvar bump, vag odor and rash on abd. all asympt. no evidence of std. 9-15 wet mount neg for trich and bv, urine gc/chlam neg 11) pt requests to dc IV. I d/w her may need for BPmeds or diabetes meds, but she says we can stick her again if needed added Nifedipine (PO) protocol prn 12) Pulm edema, on adm- now resolved , echo at sending wnl, pt feels better since adm, had cxr on adm w min pulm edema. 13) Pruritic red spots on legs- per dr madrigal they seem to me self-inflicted. PLAN- hc cream and dph prn 14) "Bad gums"- h/o same, afraid to see dentist. PLAN- saline gargles 15) Nose bleeds 10-16- ocean saline spray prn 16) Insomnia- pt requests trazadone, which has worked in past. PLAN- 300 q hs Pt seen and d/w dr josé at 1634 RPT #:[id number] END OF REPORT [facility] 2023-01-06 07:02:00 [facility] OB Antepartum Prog Note REPORT#:[id number] REPORT STATUS: Signed REPORT INITIALIZATION DATE:01/06/23 TIME: 701 PATIENT: AMINTA NINO UNIT #: [id number] ROOM/BED: 5048-A : 92 AGE: 32 SEX: F ATTEND: Jak Herrera MD ADM AUTHOR: Darron Santacruz MD REPT SERVICE DT/TIME: 01/06/23 0702 * ALL edits or amendments must be made on the electronic/computer document * Subjective Subjective Patient reports: Patient reports: Yes no complaints, Yes normal movement, No abdominal pain, No vaginal bleeding, No leaking fluid, No contractions Objective VS: Last Documented: Result Date Time B/P Mean 89.0 01/06 0756 B/P 128/64 01/06 0756 Pulse 93 01/06 0756 Pulse Ox 97 01/06 0424 Resp 18 01/07 424 Temp 97.8 01/05 1545 FiO2 21 12/28 2029 O2 Delivery Room air 12/28 2029 Vital Signs Date Temp Pulse Resp B/P B/P Mean Pulse Ox FiO2 01/05-01/06 97.8 84-99 18 128-179/64-92 89.0-127.0 97-98 PATIENT WEIGHT: Weight (lb): 250 Weight (oz): Weight (kg): 113.600 Membranes: Intact Abdomen: gravid (obese), soft, no abnormal tenderness, no guarding Lower extremities: Edema: trace (round red dots on legs belowkn) Calf tenderness: negative Diagnosis, Assessment Plan Diagnosis, Assessment Plan Free Text A P: 32 y/o [facility] 02-20-23 [facility] at 33 4/7 weeks transported from [place] at 26.2 for sob, orthopnea, pulm edema. PNC w dr cristina clay 1) IDDM- hgba1c 6.6 at sending 11-13, on lantus 60 bid, humalog 50B, 60L, 70D Consulted rohan, nutrition and DM counselor. fructosamine 11-18 198, 11/30 217, 200, 12-29 180 current insulin dose lantus am/pm 152/160, humalog 106, 122, 160 and metformin to 1000 bid 01-06 cgm looking excellent, < 120. dr madrigal aware. PLAN- cpm 10-20 CGM mostly below 200. i spoke w dr madrigal. he rec cpm -18 stressed imp of eating to avoid hypoglycemia, fructosamine pending. PLAN- cpm 10-16 on cgm, glu consistently high, probably as a result of bmz given 12-26. PLAN- incr insulin by 15%, new doses lantus am/pm 152/160, humalog 106, 122, 160 10-13 back on cgm, reviewed w dr madrigal at bedside PLAN- incr metf to 100 bid 10-11 back on cgm. PLAN- i sent cgm graph to dr madrigal who will see pt in am, cpm 10-10 doing fingersticks fbs 92, B 80 L 138. PLAN- cpm, cgm should be back on by dinner tomorrow 12-20 i spoke w rohan and reviewed cgm, bs very labile, cgm will run out tonight. mom cant bring new one until tue. PLAN- finger sticks for /tue 10-6 glu very labile. pt seen by diab educ and flight crew ordnanceman. disc w rohan. PLAN- cpm, reeval 12-20 mon 10- occ glu low 67 lunchtime humalog held. disc w dr madrigal. rec cpm 10-2 cgm stable, remains above 200 most of the time, occ lows. pt thinks this is d/t diet. . i showed graph to dr madrigal, he rec incr by 15%. new dosing lantus 132/138. humalog B92 L 106, D138 9- cgm showed some improvement, but spikes after dinner . PLAN- incr humalog D to 120, fructosamine ordered for am. Pt seen w dr madrigal 9- glu sig drop. pt asympt. lunch humalog held. PLAN- cpm, dr madrigal to see pt 12-03 9-20 min change in dexcon 7 readings. will incr insulin by 15%, to lantus 115/ 120, humalog B80, L92, D 102, fructosamine 11-30 217 2) Prematurity- s/p bmz x 2 (9-5,6) no mgso4 d/t pulm edema, kiran felipe 3) U/S - blaise coates vertex, anterior placenta, MATHEUS 6.5 decreased, S/D 5.1 increased EFW 1730 gms, 6% % low normal interval growth interval gwoth, BPP 10/19, cervix long closed prev - blaise coates vertex, anterior placenta, MATHEUS 8.5 decreased, S/D 4.9- 5.3 increased EFW 1384 gms, 5.6 % low normalinterval growth interval gwoth, BPP 8/8, cervix long closed. PLAN- rescan this weekend 9-24 KA, S:D 4.9-5.3, EFW 1084, 5.6%, AFT 9.5, BPP 8/8, cx long closed. 9-4 gei Coates Cephalic CGA c/w dates UA-PI: 0.95 DVP: 2.7 Anatomy severely limited due to morbid obesity. PLAN- next scan in 2 weeks (the patient is wanting q week) The pt would like a "natural childbirth," but I explained to her she will need to be flexible, high risk of . The pt also would like only to give breast milk to baby and nothing else--again, I d/w her this may depend on many factors including whether she delivers early--which she may need to. Sometimes premies need umbilical lines and do not latch well, but we generally do all we can to help the baby get mom's breast milk as much as possible. 4) FWB- nst bid--> per pt's request, 1 hr TID after meals 10- nst cat 1, occ sharp variable but overall reassuring. PLAN- cont nst q8h 5) DVT prophy- lovenox 40 mg, had d/w pt and mom regarding why this is important. Pt requests to ambulate some, and have okayed this. Pt may also be a little stir crazy and need a little change of atmosphere. 6) Chr htn r/o YOVANY- bp at home 190/110, since adm bp 120-130/50-70 on labet 200 q 8 , procardia 30 xl bid. upcr 626, dropped to 241. nl ast/alt, plat. 24hu 554 mg. PLAN- still some labile BPs, continue to follow. 10- elev bp 189/102, 179/87, labet protocol ordered, but bp came down on its own. no s/s preE. preE labs wnl. upcr pendingPLAN- cpm 10-17 bp 130-140/60-70, 24hu 834mg. PLAN- cpm 10- bp 130-150/60-70, had htn 10- 188/80, 176/79, incr proc to 60 bid, nl plat and lft, no other s/s preE. PLAN- repeat 24hu pending, cpm 7) ADHD/depression- stable on seroquel, zoloft 8) sleep apnea--pulm consult, per dr crocker, pt refusing cpap d/t claustrophobia. o2 sats are reassuring 9) fatigue--TSH nl, iron studies show bordeline deficiency, on iron and colace 10) Vulvar bump, vag odor and rash on abd. all asympt. no evidence of std. 9-15 wet mount neg for trich and bv, urine gc/chlam neg 11) pt requests to dc IV. I d/w her may need for BPmeds or diabetes meds, but she says we can stick her again if needed added Nifedipine (PO) protocol prn 12) Pulm edema, on adm- now resolved , echo at sending wnl, pt feels better since adm, had cxr on adm w min pulm edema. 13) Pruritic red spots on legs- per dr madrigal they seem to me self-inflicted. PLAN- hc cream and dph prn 14) "Bad gums"- h/o same, afraid to see dentist. PLAN- saline gargles 15) Nose bleeds 10-16- ocean saline spray prn 16) Insomnia- pt requests trazadone, which has worked in past. PLAN- 300 q hs Pt seen and d/w dr josé at 1527 RPT #:[id number] END OF REPORT [facility] 2023-01-05 06:47:00 [facility] ([facility] OB Antepartum Prog Note REPORT#:[id number] REPORT STATUS: Signed REPORT INITIALIZATION DATE:01/05/23 TIME: 646 PATIENT: AMINTA NINO UNIT #: [id number] ROOM/BED: 5048-A : 92 AGE: 32 SEX: F ATTEND: Jak Herrera MD ADM AUTHOR: Darron Santacruz MD REPT SERVICE DT/TIME: 01/05/23 0647 * ALL edits or amendments must be made on the electronic/computer document * Subjective Subjective Patient reports: Patient reports: Yes no complaints, Yes normal movement, No abdominal pain, No vaginal bleeding, No leaking fluid, No contractions Objective VS: Last Documented: Result Date Time B/P Mean 98.0 01/05 1545 Pulse Ox 98 01/05 1545 B/P 139/72 01/05 1545 Temp 97.8 01/05 154 Pulse 99 01/05 1545 Resp 18 01/05 1545 FiO2 21 12/28 2029 O2 Delivery Room air 12/28 2029 Vital Signs Date Temp Pulse Resp B/P B/P Mean Pulse Ox FiO2 01/04-01/05 97.6-97.8 85-106 16-18 127-172/68-93 94.0-124.0 97-99 PATIENT WEIGHT: Weight (lb): 250 Weight (oz): Weight (kg): 113.600 Membranes: Intact Abdomen: gravid (obese), soft, no abnormal tenderness, no guarding Lower extremities: Edema: trace (round red dots on legs belowkn) Calf tenderness: negative Baby A: Baby A baseline: 140 bpm Baby A variability: moderate 6-25 bpm Baby A accelerations: 15 X 15 Baby A decelerations: none Baby A FHR category: category 1 Diagnosis, Assessment Plan Diagnosis, Assessment Plan Free Text A P: 32 y/o [facility] 02-20-23 [facility] at 33 3/7 weeks transported from [place] at 26.2 for sob, orthopnea, pulm edema. PNC w dr cristina clay 1) IDDM- hgba1c 6.6 at sending 11-13, on lantus 60 bid, humalog 50B, 60L, 70D Consulted rohan, nutrition and DM counselor. fructosamine 11-18 198, 11/30 217, 200, 12-29 180 current insulin dose lantus am/pm 152/160, humalog 106, 122, 160 and metformin to 1000 bid - cgm looking excellent, < 120. PLAN- cpm 10-20 CGM mostly below 200. i spoke w dr madrigal. he rec cpm -18 stressed imp of eating to avoid hypoglycemia, fructosamine pending. PLAN- cpm 10-16 on cgm, glu consistently high, probably as a result of bmz given 12-26. PLAN- incr insulin by 15%, new doses lantus am/pm 152/160, humalog 106, 122, 160 12-24 back on cgm, reviewed w dr madrigal at bedside PLAN- incr metf to 100 bid - back on cgm. PLAN- i sent cgm graph to dr madrigal who will see pt in am, cpm 10-10 doing fingersticks fbs 92, B 80 L 138. PLAN- cpm, cgm should be back on by dinner tomorrow 12-20 i spoke w rohan and reviewed cgm, bs very labile, cgm will run out tonight. mom cant bring new one until tue. PLAN- finger sticks for /12-17 glu very labile. pt seen by diab educ and flight crew ordnanceman. disc w rohan. PLAN- cpm, reeval 12-20 mon 10- occ glu low 67 lunchtime humalog held. disc w dr madrigal. rec cpm 10- cgm stable, remains above 200 most of the time, occ lows. pt thinks this is d/t diet. . i showed graph to dr madrigal, he rec incr by 15%. new dosing lantus 132/138. humalog B92 L 106, D138 12-10 cgm showed some improvement, but spikes after dinner . PLAN- incr humalog D to 120, fructosamine ordered for am. Pt seen w dr madrigal 12-02 glu sig drop. pt asympt. lunch humalog held. PLAN- cpm, dr madrigal to see pt 12-03 9-20 min change in dexcon 7 readings. will incr insulin by 15%, to lantus 115/ 120, humalog B80, L92, D 102, fructosamine 11-30 217 2) Prematurity- s/p bmz x 2 (9-5,6) no mgso4 d/t pulm edema, kiran felipe 3) U/S - blaise coates vertex, anterior placenta, MATHEUS 6.5 decreased, S/D 5.1 increased EFW 1730 gms, 6% % low normal interval growth interval gwoth, BPP 10/19, cervix long closed prev 12-19 blaise coates vertex, anterior placenta, MATHEUS 8.5 decreased, S/D 4.9- 5.3 increased EFW 1384 gms, 5.6 % low normalinterval growth interval gwoth, BPP 8/8, cervix long closed. PLAN- rescan this weekend 9-24 KA, S:D 4.9-5.3, EFW 1084, 5.6%, AFT 9.5, BPP 8/8, cx long closed. 9-4 gei Coates Cephalic CGA c/w dates UA-PI: 0.95 DVP: 2.7 Anatomy severely limited due to morbid obesity. PLAN- next scan in 2 weeks (the patient is wanting q week) The pt would like a "natural childbirth," but I explained to her she will need to be flexible, high risk of . The pt also would like only to give breast milk to baby and nothing else--again, I d/w her this may depend on many factors including whether she delivers early--which she may need to. Sometimes premies need umbilical lines and do not latch well, but we generally do all we can to help the baby get mom's breast milk as much as possible. 4) FWB- nst bid--> per pt's request, 1 hr TID after meals 10-25 nst cat 1, occ sharp variable but overall reassuring. PLAN- cont nst q8h 5) DVT prophy- lovenox 40 mg, had d/w pt and mom regarding why this is important. Pt requests to ambulate some, and have okayed this. Pt may also be a little stir crazy and need a little change of atmosphere. 6) Chr htn r/o YOVANY- bp at home 190/110, since adm bp 120-130/50-70 on labet 200 q 8 , procardia 30 xl bid. upcr 626, dropped to 241. nl ast/alt, plat. 24hu 554 mg. PLAN- still some labile BPs, continue to follow. 10- elev bp 189/102, 179/87, labet protocol ordered, but bp came down on its own. no s/s preE. preE labs wnl. upcr pendingPLAN- cpm 10-17 bp 130-140/60-70, 24hu 834mg. PLAN- cpm 10-16 bp 130-150/60-70, had htn 10-15 188/80, 176/79, incr proc to 60 bid, nl plat and lft, no other s/s preE. PLAN- repeat 24hu pending, cpm 7) ADHD/depression- stable on seroquel, zoloft 8) sleep apnea--pulm consult, per dr crocker, pt refusing cpap d/t claustrophobia. o2 sats are reassuring 9) fatigue--TSH nl, iron studies show bordeline deficiency, on iron and colace 10) Vulvar bump, vag odor and rash on abd. all asympt. no evidence of std. 9-15 wet mount neg for trich and bv, urine gc/chlam neg 11) pt requests to dc IV. I d/w her may need for BPmeds or diabetes meds, but she says we can stick her again if needed added Nifedipine (PO) protocol prn 12) Pulm edema, on adm- now resolved , echo at sending wnl, pt feels better since adm, had cxr on adm w min pulm edema. 13) Pruritic red spots on legs- per dr madrigal they seem to me self-inflicted. PLAN- hc cream and dph prn 14) "Bad gums"- h/o same, afraid to see dentist. PLAN- saline gargles 15) Nose bleeds 10-16- ocean saline spray prn 16) Insomnia- pt requests trazadone, which has worked in past. PLAN- 300 q hs Pt seen and d/w dr jerez at 1848 RPT #:[id number] END OF REPORT [facility] 2023-01-04 06:56:00 [facility] ([facility] OB Antepartum Prog Note REPORT#:[id number] REPORT STATUS: Signed REPORT INITIALIZATION DATE:01/04/23 TIME: 655 PATIENT: AMINTA NINO UNIT #: [id number] ROOM/BED: [address] : 92 AGE: 32 SEX: F ATTEND: Jak Herrera MD ADM AUTHOR: Darron Santacruz MD REPT SERVICE DT/TIME: 01/04/23 0656 * ALL edits or amendments must be made on the electronic/computer document * Subjective Subjective Patient reports: Patient reports: Yes no complaints, Yes normal movement, No abdominal pain, No vaginal bleeding, No leaking fluid, No contractions Comments: asking for trazadone to sleep Objective VS: Last Documented: Result Date Time B/P Mean 108.0 01/04 1123 Pulse Ox 100 01/04 1123 B/P 146/82 01/04 1123 Pulse 86 01/04 1123 Temp 98.5 01/03 2050 Resp 20 01/03 2050 FiO2 21 12/28 2029 O2 Delivery Room air 12/28 2029 Vital Signs Date Temp Pulse Resp B/P B/P Mean Pulse Ox FiO2 01/03-01/04 98.5 84-100 16- 137-151/75-88 97.0-109.0 100 PATIENT WEIGHT: Weight (lb): 250 Weight (oz): Weight (kg): 113.600 Membranes: Intact Abdomen: gravid (obese), soft, no abnormal tenderness, no guarding Lower extremities: Edema: trace (round red dots on legs belowkn) Calf tenderness: negative Diagnosis, Assessment Plan Diagnosis, Assessment Plan Free Text A P: 32 y/o [facility] 02-20-23 [facility] at 33 2/7 weeks transported from [place] at 26.2 for sob, orthopnea, pulm edema. PNC w dr cristina clay 1) IDDM- hgba1c 6.6 at sending 11-13, on lantus 60 bid, humalog 50B, 60L, 70D Consulted rohan, nutrition and DM counselor. fructosamine 11-18 198, 11/30 217, 200, 12-29 180 current insulin dose lantus am/pm 152/160, humalog 106, 122, 160 and metformin to 1000 bid 01-03 cgm looking excellent, < 120. PLAN- cpm 10-20 CGM mostly below 200. i spoke w dr madrigal. he rec cpm - stressed imp of eating to avoid hypoglycemia, fructosamine pending. PLAN- cpm 10-16 on cgm, glu consistently high, probably as a result of bmz given 10-15. PLAN- incr insulin by 15%, new doses lantus am/pm 152/160, humalog 106, 122, 160 10- back on cgm, reviewed w dr madrigal at bedside PLAN- incr metf to 100 bid 10-11 back on cgm. PLAN- i sent cgm graph to dr madrigal who will see pt in am, cpm 10-10 doing fingersticks fbs 92, B 80 L 138. PLAN- cpm, cgm should be back on by dinner tomorrow 12-20 i spoke w rohan and reviewed cgm, bs very labile, cgm will run out tonight. mom cant bring new one until tue. PLAN- finger sticks for /tue 10- glu very labile. pt seen by diab educ and flight crew ordnanceman. disc w rohan. PLAN- cpm, reeval 12-20 mon 10- occ glu low 67 lunchtime humalog held. disc w dr madrigal. rec cpm 10-2 cgm stable, remains above 200 most of the time, occ lows. pt thinks this is d/t diet. . i showed graph to dr madrigal, he rec incr by 15%. new dosing lantus 132/138. humalog B92 L 106, D138 - cgm showed some improvement, but spikes after dinner . PLAN- incr humalog D to 120, fructosamine ordered for am. Pt seen w dr madrigal 12-02 glu sig drop. pt asympt. lunch humalog held. PLAN- cpm, dr madrigal to see pt 12-03 9-20 min change in dexcon 7 readings. will incr insulin by 15%, to lantus 115/ 120, humalog B80, L92, D 102, fructosamine - 217 2) Prematurity- s/p bmz x 2 (9-5,6) no mgso4 d/t pulm edema, kiran felipe 3) U/S - blaise coates vertex, anterior placenta, MATHEUS 6.5 decreased, S/D 5.1 increased EFW 1730 gms, 6% % low normal interval growth interval gwoth, BPP 8/8, cervix long closed prev - blaise coates vertex, anterior placenta, MATHEUS 8.5 decreased, S/D 4.9- 5.3 increased EFW 1384 gms, 5.6 % low normalinterval growth interval gwoth, BPP 8/8, cervix long closed. PLAN- rescan this weekend 9-24 KA, S:D 4.9-5.3, EFW 1084, 5.6%, AFT 9.5, BPP 8/8, cx long closed. 9-4 gei Coates Cephalic CGA c/w dates UA-PI: 0.95 DVP: 2.7 Anatomy severely limited due to morbid obesity. PLAN- next scan in 2 weeks (the patient is wanting q week) The pt would like a "natural childbirth," but I explained to her she will need to be flexible, high risk of . The pt also would like only to give breast milk to baby and nothing else--again, I d/w her this may depend on many factors including whether she delivers early--which she may need to. Sometimes premies need umbilical lines and do not latch well, but we generally do all we can to help the baby get mom's breast milk as much as possible. 4) FWB- nst bid--> per pt's request, 1 hr TID after meals 10-24 nst cat 1, occ sharp variable but overall reassuring. PLAN- cont nst q8h 5) DVT prophy- lovenox 40 mg, had d/w pt and mom regarding why this is important. Pt requests to ambulate some, and have okayed this. Pt may also be a little stir crazy and need a little change of atmosphere. 6) Chr htn r/o YOVANY- bp at home 190/110, since adm bp 120-130/50-70 on labet 200 q 8 , procardia 30 xl bid. upcr 626, dropped to 241. nl ast/alt, plat. 24hu 554 mg. PLAN- still some labile BPs, continue to follow. 10- elev bp 189/102, 179/87, labet protocol ordered, but bp came down on its own. no s/s preE. preE labs wnl. upcr pendingPLAN- cpm 10-17 bp 130-140/60-70, 24hu 834mg. PLAN- cpm 10-16 bp 130-150/60-70, had htn 10-15 188/80, 176/79, incr proc to 60 bid, nl plat and lft, no other s/s preE. PLAN- repeat 24hu pending, cpm 7) ADHD/depression- stable on seroquel, zoloft 8) sleep apnea--pulm consult, per dr crocker, pt refusing cpap d/t claustrophobia. o2 sats are reassuring 9) fatigue--TSH nl, iron studies show bordeline deficiency, on iron and colace 10) Vulvar bump, vag odor and rash on abd. all asympt. no evidence of std. 9-15 wet mount neg for trich and bv, urine gc/chlam neg 11) pt requests to dc IV. I d/w her may need for BPmeds or diabetes meds, but she says we can stick her again if needed added Nifedipine (PO) protocol prn 12) Pulm edema, on adm- now resolved , echo at sending wnl, pt feels better since adm, had cxr on adm w min pulm edema. 13) Pruritic red spots on legs- per dr madrigal they seem to me self-inflicted. PLAN- hc cream and dph prn 14) "Bad gums"- h/o same, afraid to see dentist. PLAN- saline gargles 15) Nose bleeds 10-16- ocean saline spray prn 16) Insomnia- pt requests trazadone, which has worked in past. PLAN- 300 q hs Pt seen and d/w dr jerez at 1552 RPT #:[id number] END OF REPORT [facility] 2023-01-03 06:46:00 [facility] OB Antepartum Prog Note REPORT#:[id number] REPORT STATUS: Signed REPORT INITIALIZATION DATE:01/03/23 TIME: 645 PATIENT: AMINTA NINO UNIT #: [id number] ROOM/BED: 5048-A : 92 AGE: 32 SEX: F ATTEND: Jak Herrera MD ADM AUTHOR: Darron Santacruz MD REPT SERVICE DT/TIME: 01/03/23 0646 * ALL edits or amendments must be made on the electronic/computer document * Subjective Subjective Patient reports: Patient reports: Yes no complaints, Yes normal movement, No abdominal pain, No vaginal bleeding, No leaking fluid, No contractions, No headache, No blurred vision, No scotomata Objective VS: Last Documented: Result Date Time B/P Mean 102.0 01/03 1321 B/P 130/85 01/03 1321 Pulse 96 01/03 1321 Pulse Ox 99 01/03 1106 Temp 98.0 01/03 1057 Resp 16 01/03 1057 FiO2 21 12/28 2029 O2 Delivery Room air 12/28 2029 Vital Signs Date Temp Pulse Resp B/P B/P Mean Pulse Ox FiO2 01/02-01/03 97.7-98.0 85-99 16 130-189/66-102 91.0-133.0 89-99 PATIENT WEIGHT: Weight (lb): 250 Weight (oz): Weight (kg): 113.600 Membranes: Intact Abdomen: gravid (obese), soft, no abnormal tenderness, no guarding Lower extremities: Edema: trace (round red dots on legs belowkn) Calf tenderness: negative Findings/data: Laboratory Tests: 01/03 1345 Chemistry Sodium (135 - 145 mEq/L) 138 Potassium (3.5 - 5.0 mEq/L) 4.4 Chloride (100 - 115 mEq/L) 102 Carbon Dioxide (22 - 31 mEq/L) 24 Anion Gap (10 - 20) 16.80 BUN (7 - 18 mg/dL) 12 Creatinine (0.5 - 1.0 mg/dL) 0.5 Glomerular Filtr Rate (>60 ml/min) 129 Glucose (65 - 110 mg/dL) 103 Calcium (8.4 - 10.2 mg/dL) 8.9 Total Bilirubin (0.2 - 1.0 mg/dL) 0.2 AST (15 - 37 units/L) 20 ALT (12 - 78 units/L) 19 Total Alk Phosphatase (46 - 116 units/L) 99 Total Protein (6.3 - 8.2 gm/dL) 6.7 Albumin (3.4 - 4.8 gm/dL) 2.7 L Hematology WBC (6.5 - 12.3 K/mm3) 12.8 H RBC (3.51 - 4.69 M/mm3) 4.32 Hgb (10.1 - 13.8 g/dL) 11.9 Hct (32.5 - 41.8 %) 34.5 MCV (84.6 - 96.6 fL) 79.9 L MCH (27.3 - 33.9 pg) 27.5 MCHC (32.0 - 34.2 gm/dL) 34.5 H RDW (12.2 - 16.3 %) 14.5 Plt Count (134 - 363 K/mm3) 286 MPV (9.2 - 12.7 fL) 9.4 Neut % (Auto) (57.9 - 77.3 %) 69.6 Lymph % (Auto) (14.5 - 29.7 %) 23.6 [place] % (Auto) (3.6 - 10.2 %) 5.1 Eos % (Auto) (0.0 - 3.0 %) 0.6 Baso % (Auto) (0.1 - 0.9 %) 0.3 Neut # (Auto) (K/mm3) 8.9 Lymph # (Auto) (K/mm3) 3.0 [place] # (Auto) (K/mm3) 0.7 Eos # (Auto) (K/mm3) 0.08 Baso # (Auto) (K/mm3) 0.0 Diagnosis, Assessment Plan Diagnosis, Assessment Plan Free Text A P: 32 y/o [facility] 02-20-23 [facility] at 33 1/7 weeks transported from [place] at 26.2 for sob, orthopnea, pulm edema. PNC w dr cristina clay 1) IDDM- hgba1c 6.6 at sending 11-13, on lantus 60 bid, humalog 50B, 60L, 70D Consulted rohan, nutrition and DM counselor. fructosamine 11-18 198, 11/30 217, 200, 12-29 180 current insulin dose lantus am/pm 152/160, humalog 106, 122, 160 and metformin to 1000 bid - cgm looking excellent, < 120. PLAN- cpm 10-20 CGM mostly below 200. i spoke w dr madrigal. he rec cpm -18 stressed imp of eating to avoid hypoglycemia, fructosamine pending. PLAN- cpm 10-16 on cgm, glu consistently high, probably as a result of bmz given 12-26. PLAN- incr insulin by 15%, new doses lantus am/pm 152/160, humalog 106, 122, 160 - back on cgm, reviewed w dr madrigal at bedside PLAN- incr metf to 100 bid 10- back on cgm. PLAN- i sent cgm graph to dr madrigal who will see pt in am, cpm 10-10 doing fingersticks fbs 92, B 80 L 138. PLAN- cpm, cgm should be back on by dinner tomorrow 12-20 i spoke w rohan and reviewed cgm, bs very labile, cgm will run out tonight. mom cant bring new one until tue. PLAN- finger sticks for /tue- glu very labile. pt seen by diab educ and flight crew ordnanceman. disc w rohan. PLAN- cpm, reeval 12-20 mon 10- occ glu low 67 lunchtime humalog held. disc w dr madrigal. rec cpm 10- cgm stable, remains above 200 most of the time, occ lows. pt thinks this is d/t diet. . i showed graph to dr madrigal, he rec incr by 15%. new dosing lantus 132/138. humalog B92 L 106, D138 12-10 cgm showed some improvement, but spikes after dinner . PLAN- incr humalog D to 120, fructosamine ordered for am. Pt seen w dr madrigal - glu sig drop. pt asympt. lunch humalog held. PLAN- cpm, dr madrigal to see pt 12-03 9-20 min change in dexcon 7 readings. will incr insulin by 15%, to lantus 115/ 120, humalog B80, L92, D 102, fructosamine 11-30 217 2) Prematurity- s/p bmz x 2 (9-5,6) no mgso4 d/t pulm edema, kiran felipe 3) U/S - blaise coates vertex, anterior placenta, MATHEUS 6.5 decreased, S/D 5.1 increased EFW 1730 gms, 6% % low normal interval growth interval gwoth, BPP 10/19, cervix long closed prev - blaise coates vertex, anterior placenta, MATHEUS 8.5 decreased, S/D 4.9- 5.3 increased EFW 1384 gms, 5.6 % low normalinterval growth interval gwoth, BPP 8/8, cervix long closed. PLAN- rescan this weekend 9-24 KA, S:D 4.9-5.3, EFW 1084, 5.6%, AFT 9.5, BPP 8/8, cx long closed. 9-4 gei Coates Cephalic CGA c/w dates UA-PI: 0.95 DVP: 2.7 Anatomy severely limited due to morbid obesity. PLAN- next scan in 2 weeks (the patient is wanting q week) The pt would like a "natural childbirth," but I explained to her she will need to be flexible, high risk of . The pt also would like only to give breast milk to baby and nothing else--again, I d/w her this may depend on many factors including whether she delivers early--which she may need to. Sometimes premies need umbilical lines and do not latch well, but we generally do all we can to help the baby get mom's breast milk as much as possible. 4) FWB- nst bid--> per pt's request, 1 hr TID after meals - nst cat 1, occ sharp variable but overall reassuring. PLAN- cont nst q8h 5) DVT prophy- lovenox 40 mg, had d/w pt and mom regarding why this is important. Pt requests to ambulate some, and have okayed this. Pt may also be a little stir crazy and need a little change of atmosphere. 6) Chr htn r/o YOVANY- bp at home 190/110, since adm bp 120-130/50-70 on labet 200 q 8 , procardia 30 xl bid. upcr 626, dropped to 241. nl ast/alt, plat. 24hu 554 mg. PLAN- still some labile BPs, continue to follow. 10- elev bp 189/102, 179/87, labet protocol ordered, but bp came down on its own. no s/s preE. preE labs wnl. upcr pendingPLAN- cpm 10-17 bp 130-140/60-70, 24hu 834mg. PLAN- cpm 10-16 bp 130-150/60-70, had htn 10-15 188/80, 176/79, incr proc to 60 bid, nl plat and lft, no other s/s preE. PLAN- repeat 24hu pending, cpm 7) ADHD/depression- stable on seroquel, zoloft 8) sleep apnea--pulm consult, per dr crocker, pt refusing cpap d/t claustrophobia. o2 sats are reassuring 9) fatigue--TSH nl, iron studies show bordeline deficiency, on iron and colace 10) Vulvar bump, vag odor and rash on abd. all asympt. no evidence of std. 9-15 wet mount neg for trich and bv, urine gc/chlam neg 11) pt requests to dc IV. I d/w her may need for BPmeds or diabetes meds, but she says we can stick her again if needed added Nifedipine (PO) protocol prn 12) Pulm edema, on adm- now resolved , echo at sending wnl, pt feels better since adm, had cxr on adm w min pulm edema. 13) Pruritic red spots on legs- per dr madrigal they seem to me self-inflicted. PLAN- hc cream and dph prn 14) "Bad gums"- h/o same, afraid to see dentist. PLAN- saline gargles 15) Nose bleeds 10-16- ocean saline spray prn Pt seen and d/w dr ochoa at 1547 RPT #:[id number] END OF REPORT [facility] 2023-01-02 09:09:00 [facility] MFM Consultation Note REPORT#:[id number] REPORT STATUS: Signed REPORT INITIALIZATION DATE:01/02/23 TIME: 908 PATIENT: AMINTA NINO UNIT #: [id number] ROOM/BED: 5048-A : 92 AGE: 32 SEX: F ATTEND: Jak Herrera MD ADM AUTHOR: Shabnam Jerez MD REPT SERVICE DT/TIME: 01/02/23 0909 * ALL edits or amendments must be made on the electronic/computer document * History of Present Illness HPI Chief complaint: Transferred for [facility] History Past History Allergies: Coded Allergies: latex (SWELLING 11/15/22) Objective Physical Exam VS/I O: Vital Signs: Date Time Temp Pulse Resp B/P B/P Pulse O2 O2 Flow FiO2 Mean Ox Delivery Rate 01/02 0510 89.0 01/02 0510 95 117/71 01/02 0036 85.0 01/02 0036 98 127/59 01/01 194 99.0 01/01 1942 97.7 99 15 140/69 96 01/01 194 101 96 01/01 1605 102.0 01/01 1605 98.5 99 17 140/79 98 01/01 1604 100 98 01/01 1047 109.0 01/01 1047 86 151/78 01/01 1043 92 97 Last Documented: Result Date Time B/P Mean 89.0 01/02 0510 B/P 117/71 01/02 0510 Pulse 95 01/02 0510 Pulse Ox 96 01/01 1942 Temp 97.7 01/01 1942 Resp 15 01/01 1942 FiO2 21 12/28 2030 O2 Delivery Room air 12/28 2029 PATIENT WEIGHT: Weight (lb): 250 Weight (oz): Weight (kg): 113.600 HEENT: normocephalic Cardiovascular: regular rate and rhythm Respiratory: clear to auscultation Abdomen: non-tender, soft Extremities: edema (trace) Neuro/CYTOGENETICS TECHNOLOGIST: alert, oriented x 3, normal speech Skin: dry, intact, normal color, normal temperature, normal turgor Psychiatry: not homicidal Results Radiology data: ultrasound indications: 33 weeks GA FGR coates vertex anterior placenta MATHEUS 6.5 decreased S/D 5.1 increased EFW 1 1730 gms, 6% % low normalinterval growth interval gwoth BPP 8/8 cervix long closed Diagnosis, Assessment Plan Diagnosis, Assessment Plan Free Text A P: A/P 33 weeks 1- 2- FGR low normal growth. oligohydramnios, increased S/D 3-PIH w/o features of severity, stabilized 4-Class B DM; 5-Severe obesity / Excessive MWG 6- BMI 48 continue current care at [address] [facility] #:[id number] END OF REPORT [facility] 2023-01-02 08:15:00 [facility] OB Antepartum Prog Note REPORT#:[id number] REPORT STATUS: Signed REPORT INITIALIZATION DATE:01/02/23 TIME: 08 PATIENT: AMINTA NINO UNIT #: [id number] ROOM/BED: [address] : 92 AGE: 32 SEX: F ATTEND: Jak Herrera MD ADM AUTHOR: Taz Clifford MD REPT SERVICE DT/TIME: 01/02/23814 * ALL edits or amendments must be made on the electronic/computer document * Subjective Subjective Admission EGA: Weeks: 26 Days: 1 Patient reports: Patient reports: Yes normal movement, No no complaints, No abdominal pain, No vaginal bleeding, No leaking fluid, No contractions Objective VS: Last Documented: Result Date Time B/P Mean 89.0 01/02 0510 B/P 117/71 01/02 0510 Pulse 95 01/02 0510 Pulse Ox 96 01/01 1942 Temp 97.7 01/01 1942 Resp 15 01/01 1942 FiO2 21 12/28 2029 O2 Delivery Room air 12/28 2029 Vital Signs Date Temp Pulse Resp B/P B/P Mean Pulse Ox FiO2 01/01-01/02 97.7-98.5 86-101 15- 117-151/59-79 85.0-109.0 96-98 PATIENT WEIGHT: Weight (lb): 250 Weight (oz): Weight (kg): 113.600 Membranes: Intact Uterine activity: Monitor: toco Frequency (description): none HEENT: normocephalic w/o injury, pupils equal, no scleral icterus, buffalo hump Cardiac: regular rate Lungs: unlabored breathing Neuro: Exam: alert, oriented x3, normal speech Abdomen: gravid (obese), soft, no abnormal tenderness, no guarding Uterus: soft, non-tender Lower extremities: Edema: trace (round red dots on legs belowkn) Calf tenderness: negative Baby A: Baby A baseline: 140 bpm Baby A variability: moderate 6-25 bpm Baby A accelerations: 15 X 15 Baby A decelerations: none Baby A FHR category: category 1 Diagnosis, Assessment Plan Diagnosis, Assessment Plan Free Text A P: 32 y/o [facility] 02-20-23 [facility] at 33 0/7 weeks transported from [place] at 26.2 for sob, orthopnea, pulm edema. PNC w dr cristina clay 1) IDDM- hgba1c 6.6 at sending 11-13, on lantus 60 bid, humalog 50B, 60L, 70D Consulted rohan, nutrition and DM counselor. fructosamine 11-18 198, 11/30 217, 200, 12-29 180 current insulin dose lantus am/pm 152/160, humalog 106, 122, 160 and metformin to 1000 bid FBS today normal , RN reports patient not having spikes at night either 2) Prematurity- s/p bmz x 2 (-,6) no mgso4 d/t pulm edema, kiran felipe 3) U/S 10-8 blaise coates vertex, anterior placenta, MATHEUS 8.5 decreased, S/D 4.9 -5.3 increased EFW 1384 gms, 5.6 % low normalinterval growth interval gwoth, BPP 8/8, cervix long closed. PLAN- rescan this - KA, S:D 4.9-5.3, EFW 1084, 5.6%, AFT 9.5, BPP 8/8, cx long closed. 9-4 gei Coates Cephalic CGA c/w dates UA-PI: 0.95 DVP: 2.7 Anatomy severely limited due to morbid obesity. PLAN- next scan in 2 weeks (the patient is wanting q week) The pt would like a "natural childbirth," but Dr Santacruz explained to her that she will need to be flexible, high risk of . The pt also would like only to give breast milk to baby and nothing else--again, Dr Santacruz d/w her this may depend on many factors including whether she delivers early--which she may need to. Sometimes premies need umbilical lines and do not latch well, but we generally do all we can to help the baby get mom's breast milk as much as possible. 4) FWB- nst bid--> per pt's request, 1 hr TID after meals 10-6 nst cat 1, occ sharp variable but overall reassuring. PLAN- cont nst q8h 5) DVT prophy- lovenox 40 mg, had d/w pt and mom regarding why this is important. Pt requests to ambulate some, and have okayed this. Pt may also be a little stir crazy and need a little change of atmosphere. 6) Chr htn r/o YOVANY- bp at home 190/110, since adm bp 120-130/50-70 on labet 200 q 8 , procardia 30 xl bid. upcr 626, dropped to 241. nl ast/alt, plat. 24hu 554 mg. PLAN- still some labile BPs, continue to follow. 10-17 bp 130-140/60-70, 24hu 834mg. PLAN- cpm 10-16 bp 130-150/60-70, had htn 10-15 188/80, 176/79, incr proc to 60 bid, nl plat and lft, no other s/s preE. PLAN- repeat 24hu pending, cpm 7) ADHD/depression- stable on seroquel, zoloft 8) sleep apnea--pulm consult, per dr crocker, pt refusing cpap d/t claustrophobia. o2 sats are reassuring 9) fatigue--TSH nl, iron studies show bordeline deficiency, on iron and colace 10) Vulvar bump, vag odor and rash on abd. all asympt. no evidence of std. 9-15 wet mount neg for trich and bv, urine gc/chlam neg 11) pt requests to dc IV. I d/w her may need for BPmeds or diabetes meds, but she says we can stick her again if needed added Nifedipine (PO) protocol prn 12) Pulm edema, on adm- now resolved , echo at sending wnl, pt feels better since adm, had cxr on adm w min pulm edema. 13) Pruritic red spots on legs- per dr madrigal they seem to me self-inflicted. PLAN- hc cream and dph prn 14) "Bad gums"- h/o same, afraid to see dentist. PLAN- saline gargles 15) Nose bleeds 10- ocean saline spray prn at 1854 RPT #:[id number] END OF REPORT [facility] 2023-01-01 11:07:00 [facility] ([facility]) OB Antepartum Prog Note REPORT#:[id number] REPORT STATUS: Signed REPORT INITIALIZATION DATE:01/01/23 TIME: 1106 PATIENT: AMINTA NINO UNIT #: [id number] ROOM/BED: [address] : 92 AGE: 32 SEX: F ATTEND: Jak Herrera MD ADM AUTHOR: Tanya Hicks MD REPT SERVICE DT/TIME: 01/01/23 1107 * ALL edits or amendments must be made on the electronic/computer document * Subjective Subjective Admission EGA: Weeks: 26 Days: 1 Current EGA: Current EGA(wks): 32 Current EGA(days): 6 Patient reports: Patient reports: Yes: normal movement. No: complaints, abdominal pain, vaginal bleeding , leaking fluid, new complaints. Nursing reports: Nursing reports: No: complaints. Review of Systems Constitutional: Denies: fever, malaise. Respiratory: Denies: LYNCH (dyspnea on exertion), SOB. Cardiovascular: Denies: chest pain, palpitations. GI: Denies: abdominal pain, nausea, vomiting. : Reports: . Denies: pelvic pain, vaginal bleeding, vaginal discharge. Neuro: Denies: headache, lightheaded, vision change. Psych: Denies: anxiety, stress. All systems rev neg: except as marked Objective Nursing Documentation Review Nursing data: The data set between the solid lines has been imported from nursing documentation. Any exceptions have been noted below under Provider comments. ROM date: ROM time: Labor onset date: Labor onset time: Provider comments on imported nursing data: [] VS: Last Documented: Result Date Time B/P Mean 109.0 01/01 1047 B/P 151/78 01/01 1047 Pulse 86 01/01 1047 Pulse Ox 97 01/01 1043 Temp 98.9 12/31 1636 Resp 17 12/31 1636 FiO2 21 12/28 2030 O2 Delivery Room air 12/28 2029 Vital Signs Date Temp Pulse Resp B/P B/P Mean Pulse Ox FiO2 12/31-01/01 98.9 86-106 17 122-151/61-79 84.0-109.0 93-97 PATIENT WEIGHT: Weight (lb): 250 Weight (oz): Weight (kg): 113.600 Medications: Active Meds + DC'd Last 24 Hrs Al Hydrox/Mg Hydrox/Simethicone (MYLANTA 30 ML SUSP) 30 ML Q6H PRN PRN PO Insulin Human Lispro (HumaLOG 3ML VIAL) 122 UNITS AC MILDRED SUBQ Insulin Glargine (LANTUS/SEMGLEE INSULIN 100 UNITS/ML) 152 UNIT AC BK SUBQ Insulin Human Lispro (HumaLOG 3ML VIAL) 106 UNITS AC BK SUBQ Insulin Glargine (LANTUS/SEMGLEE INSULIN 100 UNITS/ML) 160 UNIT BEDTIME SUBQ Insulin Human Lispro (HumaLOG 3ML VIAL) 160 UNITS AC DIN SUBQ Sodium Chloride (OCEAN NASAL SPRAY 45 ML) 2 SPRAY Q4H PRN PRN NASAL Nifedipine (PROCARDIA XL 60 MG) 60 MG BID PO Hydralazine HCl (hydrALAZINE HCL 20MG) 10 MG ASDIR PRN IV Labetalol HCl (NORMODYNE 100 MG/20 ML VIAL) 40 MG ASDIR PRN IV Labetalol HCl (NORMODYNE 100 MG/20 ML VIAL) 80 MG ASDIR PRN IV Metformin HCl (GLUCOPHAGE 500MG TAB) 1,000 MG BID PO Hydrocortisone (HYDROCORTISONE 1%) 1 APPL ASDIR PRN PRN TOPICAL Enoxaparin Sodium (LOVENOX 40 MG INJ) 40 MG DAILY SUBQ Labetalol HCl (LABETALOL HCL 200 MG) 200 MG Q8H PO Nifedipine (ADALAT 10 MG CAP) 20 MG ASDIR PRN PO Dextrose (Glutose-15 (40%)) 37.5 ML Q15M PRN PRN BUCCAL Glucagon (GLUCAGON 1 MG/VIAL) 1 MG ASDIR PRN IM Dextrose/Water (DEXTROSE 50% IN WATER 50 ML SYR) 50 ML ASDIR PRN IV (CKD ) Acetaminophen/Butalbital/Caffe ine (Fioricet 50-300-40 MG Capsule) 2 EACH Q6H PRN PRN PO Multivitamin Hematinic Therapeutic (FERRALET 90 TABLET) 1 EACH DAILY PO Docusate Sodium (DOCUSATE SODIUM 100 MG CAP) 200 MG BEDTIME PO Acetaminophen (ACETAMINOPHEN 325 MG TAB) 650 MG Q4H PRN PRN PO Patient Own Medication (PATIENT'S OWN MEDICATION) 2 EACH ASDIR PO Hydroxyzine HCl (ATARAX) 50 MG BEDTIME PRN PO Sertraline HCl (ZOLOFT 50 MG TAB) 100 MG DAILY PO Quetiapine Fumarate (SEROquel 100MG TABLET) 100 MG BEDTIME PO Calcium Gluconate (CA GLUCONATE 1 GM/10 ML VIAL) 1,000 MG BOLUS ASDIR PRN IV Membranes: Intact Uterine activity: Monitor: toco Frequency (description): none HEENT: normocephalic w/o injury, pupils equal, no scleral icterus, buffalo hump Cardiac: regular rate Lungs: unlabored breathing Neuro: Exam: alert, oriented x3, normal speech Abdomen: gravid (obese), soft, no abnormal tenderness, no guarding Uterus: soft, non-tender Lower extremities: Edema: trace (round red dots on legs belowkn) Calf tenderness: negative Baby A: Baby A baseline: 140 bpm Baby A variability: moderate 6-25 bpm Baby A accelerations: 15 X 15 Baby A decelerations: variable Baby A FHR category: discontinous, looks cat 1 Diagnosis, Assessment Plan Diagnosis, Assessment Plan Free text A P: 32 y/o [facility] 02-20-23 [facility] at 32 6/7wk transported from [place] 11-15-22 at 26.2 for sob, orthopnea, pulm edema. PNC w dr cristina clay 1) IDDM- hgba1c 6.6 on lantus 152/160, humalog 106 B,122L,160D fasting FS 106 2) Prematurity- s/p bmz x 2 (9-,6) no mgso4 d/t pulm edema, kiran felipe 3) U/S - blaise coates vertex, anterior placenta, MATHEUS 8.5 decreased, S/D 4.9 -5.3 increased EFW 1384 gms, 5.6 % low normal interval growth interval gwoth, BPP 8/8, cervix long closed 9-24 KA, S:D 4.9-5.3, EFW 1084, 5.6%, AFT 9.5, BPP 8/8, cx long closed. 9-4 gei Coates Cephalic CGA c/w dates UA-PI: 0.95 DVP: 2.7 Anatomy severely limited due to morbid obesity. PLAN- next scan in 2 weeks (the patie Dr jerez to scan her The pt would like a "natural childbirth," 4) FWB- nst bid--> per pt's request, 1 hr TID after meals nst cat 1, occ sharp variable but overall reassuring. PLAN- cont nst q8h 5) DVT prophy- lovenox 40 mg, 6) Chr htn on labet 200 q 8 , procardia 60 xl bid. continue to follow. 7) ADHD/depression- stable on seroquel, zoloft 8) sleep apnea--pulm consult, per dr crocker, pt refusing cpap d/t claustrophobia. o2 sats are reassuring 9) fatigue--TSH nl, iron studies show bordeline deficiency, on iron and colace 10) Vulvar bump, vag odor and rash on abd. all asympt. no evidence of std. 9-15 wet mount neg for trich and bv, urine gc/chlam neg 11) Pulm edema, on adm- now resolved , echo at sending wnl, pt feels better since adm, had cxr on adm w min pulm edema. 12) Pruritic red spots on legs- per dr madrigal they seem to me self-inflicted. PLAN- hc cream and dph prn 13) "Bad gums"- h/o same, afraid to see dentist. PLAN- saline gargles continue current management Assessment: hypertension, diabetes, stable, doing well Plan: continue current managmnt, surveillance Plan discussed with: patient, nurse, primary caregiver at 2055 RPT #:[id number] END OF REPORT [facility] 2022-12-31 07:07:00 [facility] OB Antepartum Prog Note REPORT#:[id number] REPORT STATUS: Signed REPORT INITIALIZATION DATE:12/31/22 TIME: 706 PATIENT: AMINTA NINO UNIT #: [id number] ROOM/BED: [address] : 92 AGE: 32 SEX: F ATTEND: Jak Herrera MD ADM AUTHOR: Darron Santacruz MD REPT SERVICE DT/TIME: 12/31/22 07 * ALL edits or amendments must be made on the electronic/computer document * Subjective Subjective Patient reports: Patient reports: Yes no complaints, Yes normal movement, No abdominal pain, No vaginal bleeding, No leaking fluid, No contractions Objective VS: Last Documented: Result Date Time B/P Mean 100.0 12/31 0935 Pulse Ox 97 12/31 0935 B/P 151/70 12/31 09 Temp 98.3 12/31 0935 Pulse 81 12/31 0935 Resp 17 12/31 0935 FiO2 21 12/28 2030 O2 Delivery Room air 12/28 2030 Vital Signs Date Temp Pulse Resp B/P B/P Mean Pulse Ox FiO2 12/30-12/31 98.0-98.3 81-96 17-18 123-159/59-83 83.0-113.0 92-99 PATIENT WEIGHT: Weight (lb): 250 Weight (oz): Weight (kg): 113.600 Membranes: Intact Abdomen: gravid (obese), soft, no abnormal tenderness, no guarding Lower extremities: Edema: trace (round red dots on legs belowkn) Calf tenderness: negative Diagnosis, Assessment Plan Diagnosis, Assessment Plan Free Text A P: 32 y/o EDC 02-20-23 [facility] at 32 5/7 weeks transported from [place] at 26.2 for sob, orthopnea, pulm edema. PNC w dr cristina clay 1) IDDM- hgba1c 6.6 at sending 11-13, on lantus 60 bid, humalog 50B, 60L, 70D Consulted rohan, nutrition and DM counselor. fructosamine 11-18 198, 11/30 217, 200, 12-29 180 current insulin dose lantus am/pm 152/160, humalog 106, 122, 160 and metformin to 1000 bid 10-20 CGM mostly below 200. i spoke w dr madrigal. he rec cpm 12-29 stressed imp of eating to avoid hypoglycemia, fructosamine pending. PLAN- cpm 10-16 on cgm, glu consistently high, probably as a result of bmz given 12-26. PLAN- incr insulin by 15%, new doses lantus am/pm 152/160, humalog 106, 122, 160 10-13 back on cgm, reviewed w dr madrigal at bedside PLAN- incr metf to 100 bid 10-11 back on cgm. PLAN- i sent cgm graph to dr madrigal who will see pt in am, cpm 10-10 doing fingersticks fbs 92, B 80 L 138. PLAN- cpm, cgm should be back on by dinner tomorrow - i spoke w rohan and reviewed cgm, bs very labile, cgm will run out tonight. mom cant bring new one until tue. PLAN- finger sticks for /tue 10-6 glu very labile. pt seen by diab educ and flight crew ordnanceman. disc w rohan. PLAN- cpm, reeval 12-20 mon 10-5 occ glu low 67 lunchtime humalog held. disc w dr madrigal. rec cpm 10-2 cgm stable, remains above 200 most of the time, occ lows. pt thinks this is d/t diet. . i showed graph to dr madrigal, he rec incr by 15%. new dosing lantus 132/138. humalog B92 L 106, D138 9-29 cgm showed some improvement, but spikes after dinner . PLAN- incr humalog D to 120, fructosamine ordered for am. Pt seen w dr madrigal - glu sig drop. pt asympt. lunch humalog held. PLAN- cpm, dr madrigal to see pt - 9-20 min change in dexcon 7 readings. will incr insulin by 15%, to lantus 115/ 120, humalog B80, L92, D 102, fructosamine 11-30 217 2) Prematurity- s/p bmz x 2 (9-,6) no mgso4 d/t pulm edema, kiran feliep 3) U/S 10-8 blaise coates vertex, anterior placenta, MATHEUS 8.5 decreased, S/D 4.9 -5.3 increased EFW 1384 gms, 5.6 % low normalinterval growth interval gwoth, BPP 8/8, cervix long closed. PLAN- rescan this 9-24 KA, S:D 4.9-5.3, EFW 1084, 5.6%, AFT 9.5, BPP 8/8, cx long closed. 9-4 gei Coates Cephalic CGA c/w dates UA-PI: 0.95 DVP: 2.7 Anatomy severely limited due to morbid obesity. PLAN- next scan in 2 weeks (the patient is wanting q week) The pt would like a "natural childbirth," but I explained to her she will need to be flexible, high risk of . The pt also would like only to give breast milk to baby and nothing else--again, I d/w her this may depend on many factors including whether she delivers early--which she may need to. Sometimes premies need umbilical lines and do not latch well, but we generally do all we can to help the baby get mom's breast milk as much as possible. 4) FWB- nst bid--> per pt's request, 1 hr TID after meals 10-6 nst cat 1, occ sharp variable but overall reassuring. PLAN- cont nst q8h 5) DVT prophy- lovenox 40 mg, had d/w pt and mom regarding why this is important. Pt requests to ambulate some, and have okayed this. Pt may also be a little stir crazy and need a little change of atmosphere. 6) Chr htn r/o YOVANY- bp at home 190/110, since adm bp 120-130/50-70 on labet 200 q 8 , procardia 30 xl bid. upcr 626, dropped to 241. nl ast/alt, plat. 24hu 554 mg. PLAN- still some labile BPs, continue to follow. 10-17 bp 130-140/60-70, 24hu 834mg. PLAN- cpm 10-16 bp 130-150/60-70, had htn 10-15 188/80, 176/79, incr proc to 60 bid, nl plat and lft, no other s/s preE. PLAN- repeat 24hu pending, cpm 7) ADHD/depression- stable on seroquel, zoloft 8) sleep apnea--pulm consult, per dr crocker, pt refusing cpap d/t claustrophobia. o2 sats are reassuring 9) fatigue--TSH nl, iron studies show bordeline deficiency, on iron and colace 10) Vulvar bump, vag odor and rash on abd. all asympt. no evidence of std. 9-15 wet mount neg for trich and bv, urine gc/chlam neg 11) pt requests to dc IV. I d/w her may need for BPmeds or diabetes meds, but she says we can stick her again if needed added Nifedipine (PO) protocol prn 12) Pulm edema, on adm- now resolved , echo at sending wnl, pt feels better since adm, had cxr on adm w min pulm edema. 13) Pruritic red spots on legs- per dr madrigal they seem to me self-inflicted. PLAN- hc cream and dph prn 14) "Bad gums"- h/o same, afraid to see dentist. PLAN- saline gargles 15) Nose bleeds 10-16- ocean saline spray prn Pt seen and d/w dr jerez at 1736 RPT #:[id number] END OF REPORT [facility] 2022-12-30 12:44:00 [facility] ([facility] OB Antepartum Prog Note REPORT#:[id number] REPORT STATUS: Signed REPORT INITIALIZATION DATE:12/30/22 TIME: 1244 PATIENT: AMINTA NINO UNIT #: [id number] ROOM/BED: [address] : 92 AGE: 32 SEX: F ATTEND: Jak Herrera MD ADM AUTHOR: Juliet Colindres MD REPT SERVICE DT/TIME: 12/30/22 1244 * ALL edits or amendments must be made on the electronic/computer document * Subjective Subjective Admission EGA: Weeks: 26 Days: 1 Patient reports: Patient reports: Yes no complaints, Yes normal movement, No abdominal pain, No vaginal bleeding, No leaking fluid, No contractions, No shortness of breath Comments: no leg pains, no problems, not using CPAP machine because feels claustrophobic Objective Nursing Documentation Review Nursing data: The data set between the solid lines has been imported from nursing documentation. Any exceptions have been noted below under Provider comments. ROM date: ROM time: Labor onset date: Labor onset time: Provider comments on imported nursing data: [] VS: Last Documented: Result Date Time B/P Mean 94.0 12/30 1148 Pulse Ox 97 12/30 1148 B/P 131/68 12/30 1148 Temp 97.9 12/30 1148 Pulse 87 12/30 1148 Resp 18 12/30 1148 FiO2 21 12/28 2029 O2 Delivery Room air 12/28 2029 Vital Signs Date Temp Pulse Resp B/P B/P Mean Pulse Ox FiO2 12/29-12/30 97.9-98.3 81-89 17-18 125-151/62-76 87.0-106.0 95-100 PATIENT WEIGHT: Weight (lb): 250 Weight (oz): Weight (kg): 113.600 Membranes: Intact Uterine activity: Monitor: toco Frequency (description): none HEENT: normocephalic w/o injury, pupils equal, no scleral icterus, buffalo hump Cardiac: regular rate Lungs: unlabored breathing Neuro: Exam: alert, oriented x3, normal speech Abdomen: gravid (obese), soft, no abnormal tenderness, no guarding Uterus: soft, non-tender Lower extremities: Edema: trace (round red dots on legs belowkn) Calf tenderness: negative Baby A: Baby A baseline: 140 bpm Baby A variability: moderate 6-25 bpm Baby A accelerations: 15 X 15 Baby A decelerations: variable Diagnosis, Assessment Plan Diagnosis, Assessment Plan Free Text A P: 32 y/o [facility] 02[facility]20[facility]23 [facility] at 32 4/7 weeks transported from [place] at 26.2 for sob, orthopnea, pulm edema. PNC w dr cristina clay 1) IDDM- hgba1c 6.6 at sending 11-13, on lantus 60 bid, humalog 50B, 60L, 70D Consulted rohan, nutrition and DM counselor. fructosamine 11-18 198, 11/30 217, 200, current insulin dose lantus am/pm 152/160, humalog 106, 122, 160 and metformin to 1000 bid --Fructosamine pending PLAN- cpm - on cgm, glu consistently high, probably as a result of bmz given 12-26. PLAN- incr insulin by 15%, new doses lantus am/pm 152/160, humalog 106, 122, 160 10- back on cgm, reviewed w dr madrigal at bedside PLAN- incr metf to 100 bid - back on cgm. PLAN- i sent cgm graph to dr madrigal who will see pt in am, cpm 10-10 doing fingersticks fbs 92, B 80 L 138. PLAN- cpm, cgm should be back on by dinner tomorrow 12-20 i spoke kushal madrigal and reviewed cgm, bs very labile, cgm will run out tonight. mom cant bring new one until tue. PLAN- finger sticks for /tue- glu very labile. pt seen by diab educ and flight crew ordnanceman. disc w rohan. PLAN- cpm, reeval 12-20 mon 10- occ glu low 67 lunchtime humalog held. disc w dr madrigal. rec cpm 10- cgm stable, remains above 200 most of the time, occ lows. pt thinks this is d/t diet. . i showed graph to dr madrigal, he rec incr by 15%. new dosing lantus 132/138. humalog B92 L 106, D138 12-10 cgm showed some improvement, but spikes after dinner . PLAN- incr humalog D to 120, fructosamine ordered for am. Pt seen w dr madrigal 12-02 glu sig drop. pt asympt. lunch humalog held. PLAN- cpm, dr madrigal to see pt 12-03 9-20 min change in dexcon 7 readings. will incr insulin by 15%, to lantus 115/ 120, humalog B80, L92, D 102, fructosamine 11-30 217 2) Prematurity- s/p bmz x 2 (9-,6) no mgso4 d/t pulm edema, kiran felipe 3) U/S - blaise coates vertex, anterior placenta, MATHEUS 8.5 decreased, S/D 4.9 -5.3 increased EFW 1384 gms, 5.6 % low normalinterval growth interval gwoth, BPP 8/8, cervix long closed. PLAN- rescan this 12-05 KA, S:D 4.9-5.3, EFW 1084, 5.6%, AFT 9.5, BPP 8/8, cx long closed. 9-4 gei Coates Cephalic CGA c/w dates UA-PI: 0.95 DVP: 2.7 Anatomy severely limited due to morbid obesity. PLAN- next scan in 2 weeks (the patient is wanting q week) The pt would like a "natural childbirth," but I explained to her she will need to be flexible, high risk of . The pt also would like only to give breast milk to baby and nothing else--again, I d/w her this may depend on many factors including whether she delivers early--which she may need to. Sometimes premies need umbilical lines and do not latch well, but we generally do all we can to help the baby get mom's breast milk as much as possible. 4) FWB- nst bid--> per pt's request, 1 hr TID after meals 10-6 nst cat 1, occ sharp variable but overall reassuring. PLAN- cont nst q8h 5) DVT prophy- lovenox 40 mg, had d/w pt and mom regarding why this is important. Pt requests to ambulate some, and have okayed this. Pt may also be a little stir crazy and need a little change of atmosphere. 6) Chr htn r/o YOVANY- bp at home 190/110, since adm bp 120-130/50-70 on labet 200 q 8 , procardia 30 xl bid. upcr 626, dropped to 241. nl ast/alt, plat. 24hu 554 mg. PLAN- still some labile BPs, continue to follow. 10-17 bp 130-140/60-70, 24hu 834mg. PLAN- cpm 10-16 bp 130-150/60-70, had htn 10-15 188/80, 176/79, incr proc to 60 bid, nl plat and lft, no other s/s preE. PLAN- repeat 24hu pending, cpm 7) ADHD/depression- stable on seroquel, zoloft 8) sleep apnea--pulm consult, per dr crocker, pt refusing cpap d/t claustrophobia. o2 sats are reassuring 9) fatigue--TSH nl, iron studies show bordeline deficiency, on iron and colace 10) Vulvar bump, vag odor and rash on abd. all asympt. no evidence of std. 9-15 wet mount neg for trich and bv, urine gc/chlam neg 11) pt requests to dc IV. I d/w her may need for BPmeds or diabetes meds, but she says we can stick her again if needed added Nifedipine (PO) protocol prn 12) Pulm edema, on adm- now resolved , echo at sending wnl, pt feels better since adm, had cxr on adm w min pulm edema. 13) Pruritic red spots on legs- per dr madrigal they seem to me self-inflicted. PLAN- hc cream and dph prn 14) "Bad gums"- h/o same, afraid to see dentist. PLAN- saline gargles 15) Nose bleeds 12-27- ocean saline spray prn at 1248 RPT #:[id number] END OF REPORT [facility] 2022-12-29 06:46:00 [facility] ([facility]) OB Antepartum Prog Note REPORT#:[id number] REPORT STATUS: Signed REPORT INITIALIZATION DATE:12/29/22 TIME: 645 PATIENT: AMINTA NINO UNIT #: [id number] ROOM/BED: [address] : 92 AGE: 32 SEX: F ATTEND: Jak Herrera MD ADM AUTHOR: Darron Santacruz MD REPT SERVICE DT/TIME: 12/29/22 0646 * ALL edits or amendments must be made on the electronic/computer document * Subjective Subjective Patient reports: Patient reports: Yes no complaints, Yes normal movement, No abdominal pain, No vaginal bleeding, No leaking fluid, No contractions Objective VS: Last Documented: Result Date Time B/P Mean 102.0 12/29 162 Pulse Ox 100 12/29 162 B/P 140/76 12/29 1621 Temp 98.2 12/29 162 Pulse 89 12/29 1622 Resp 18 12/29 162 FiO2 21 12/28 2030 O2 Delivery Room air 12/28 2029 Vital Signs Date Temp Pulse Resp B/P B/P Mean Pulse Ox FiO2 12/28-12/29 98.2 76-93 16-18 117-149/58-76 83.0-104.0 97-100 21 PATIENT WEIGHT: Weight (lb): 250 Weight (oz): Weight (kg): 113.600 Membranes: Intact Abdomen: gravid (obese), soft, no abnormal tenderness, no guarding Lower extremities: Edema: trace (round red dots on legs belowkn) Calf tenderness: negative Baby A: Baby A baseline: 145 bpm Baby A variability: moderate 6-25 bpm Baby A accelerations: 15 X 15 Baby A decelerations: variable Baby A FHR category: discontinous, looks cat 1 Diagnosis, Assessment Plan Diagnosis, Assessment Plan Free Text A P: 32 y/o [facility] 02-20-23 [facility] at 32 3/7 weeks transported from [place] at 26.2 for sob, orthopnea, pulm edema. PNC w dr cristina clay 1) IDDM- hgba1c 6.6 at sending 11-13, on lantus 60 bid, humalog 50B, 60L, 70D Consulted rohan, nutrition and DM counselor. fructosamine 11-18 198, 11/30 217, 200, current insulin dose lantus am/pm 152/160, humalog 106, 122, 160 and metformin to 1000 bid 12-29 stressed imp of eating to avoid hypoglycemia, fructosamine pending. PLAN- cpm - on cgm, glu consistently high, probably as a result of bmz given 12-26. PLAN- incr insulin by 15%, new doses lantus am/pm 152/160, humalog 106, 122, 160 - back on cgm, reviewed w dr madrigal at bedside PLAN- incr metf to 100 bid - back on cgm. PLAN- i sent cgm graph to dr madrigal who will see pt in am, cpm 10-10 doing fingersticks fbs 92, B 80 L 138. PLAN- cpm, cgm should be back on by dinner tomorrow 12-20 i spoke w rohan and reviewed cgm, bs very labile, cgm will run out tonight. mom cant bring new one until tue. PLAN- finger sticks for /wed 10- glu very labile. pt seen by diab educ and flight crew ordnanceman. disc kushal madrigal. PLAN- cpm, reeval 10- mon 10-5 occ glu low 67 lunchtime humalog held. disc w dr madrigal. rec cpm 10-2 cgm stable, remains above 200 most of the time, occ lows. pt thinks this is d/t diet. . i showed graph to dr madrigal, he rec incr by 15%. new dosing lantus 132/138. humalog B92 L 106, D138 9-29 cgm showed some improvement, but spikes after dinner . PLAN- incr humalog D to 120, fructosamine ordered for am. Pt seen w dr madrigal - glu sig drop. pt asympt. lunch humalog held. PLAN- cpm, dr madrigal to see pt 12-03 9-20 min change in dexcon 7 readings. will incr insulin by 15%, to lantus 115/ 120, humalog B80, L92, D 102, fructosamine 9- 217 2) Prematurity- s/p bmz x 2 (9-,6) no mgso4 d/t pulm edema, kiran felipe 3) U/S 10-8 blaise coates vertex, anterior placenta, MATHEUS 8.5 decreased, S/D 4.9 -5.3 increased EFW 1384 gms, 5.6 % low normalinterval growth interval gwoth, BPP 8/8, cervix long closed. PLAN- rescan this 9-24 KA, S:D 4.9-5.3, EFW 1084, 5.6%, AFT 9.5, BPP 8/8, cx long closed. 9-4 gei Coates Cephalic CGA c/w dates UA-PI: 0.95 DVP: 2.7 Anatomy severely limited due to morbid obesity. PLAN- next scan in 2 weeks (the patient is wanting q week) The pt would like a "natural childbirth," but I explained to her she will need to be flexible, high risk of . The pt also would like only to give breast milk to baby and nothing else--again, I d/w her this may depend on many factors including whether she delivers early--which she may need to. Sometimes premies need umbilical lines and do not latch well, but we generally do all we can to help the baby get mom's breast milk as much as possible. 4) FWB- nst bid--> per pt's request, 1 hr TID after meals 10-6 nst cat 1, occ sharp variable but overall reassuring. PLAN- cont nst q8h 5) DVT prophy- lovenox 40 mg, had d/w pt and mom regarding why this is important. Pt requests to ambulate some, and have okayed this. Pt may also be a little stir crazy and need a little change of atmosphere. 6) Chr htn r/o YOVANY- bp at home 190/110, since adm bp 120-130/50-70 on labet 200 q 8 , procardia 30 xl bid. upcr 626, dropped to 241. nl ast/alt, plat. 24hu 554 mg. PLAN- still some labile BPs, continue to follow. 10-17 bp 130-140/60-70, 24hu 834mg. PLAN- cpm 10-16 bp 130-150/60-70, had htn 10-15 188/80, 176/79, incr proc to 60 bid, nl plat and lft, no other s/s preE. PLAN- repeat 24hu pending, cpm 7) ADHD/depression- stable on seroquel, zoloft 8) sleep apnea--pulm consult, per dr crocker, pt refusing cpap d/t claustrophobia. o2 sats are reassuring 9) fatigue--TSH nl, iron studies show bordeline deficiency, on iron and colace 10) Vulvar bump, vag odor and rash on abd. all asympt. no evidence of std. 9-15 wet mount neg for trich and bv, urine gc/chlam neg 11) pt requests to dc IV. I d/w her may need for BPmeds or diabetes meds, but she says we can stick her again if needed added Nifedipine (PO) protocol prn 12) Pulm edema, on adm- now resolved , echo at sending wnl, pt feels better since adm, had cxr on adm w min pulm edema. 13) Pruritic red spots on legs- per dr madrigal they seem to me self-inflicted. PLAN- hc cream and dph prn 14) "Bad gums"- h/o same, afraid to see dentist. PLAN- saline gargles 15) Nose bleeds 10-16- saline spray prn Pt seen and d/w dr jerez at 1736 RPT #:[id number] END OF REPORT [facility] 2022-12-28 06:57:00 [facility] ([facility]) OB Antepartum Prog Note REPORT#:[id number] REPORT STATUS: Signed REPORT INITIALIZATION DATE:12/28/22 TIME: 656 PATIENT: AMINTA NINO UNIT #: [id number] ROOM/BED: [address] : 92 AGE: 32 SEX: F ATTEND: Jak Herrera MD ADM AUTHOR: Darron Santacruz MD REPT SERVICE DT/TIME: 12/28/22 0657 * ALL edits or amendments must be made on the electronic/computer document * Subjective Subjective Patient reports: Patient reports: Yes no complaints, Yes normal movement, No abdominal pain, No vaginal bleeding, No leaking fluid, No contractions, No headache, No blurred vision, No scotomata Comments: slipped in shower last pm, landed on her back. now s c/o Objective VS: Last Documented: Result Date Time B/P Mean 91.0 12/28 0406 Pulse Ox 96 12/28 0406 B/P 131/65 12/28 0406 Pulse 86 12/28 0406 Resp 18 12/28 0406 Temp 97.8 12/27 1202 FiO2 21 12/23 2014 O2 Delivery Room air 12/23 2014 Vital Signs Date Temp Pulse Resp B/P B/P Mean Pulse Ox FiO2 12/27-12/28 97.8 83-101 - 131-142/60-73 87.0-102.0 96-99 PATIENT WEIGHT: Weight (lb): 250 Weight (oz): Weight (kg): 113.600 Membranes: Intact Abdomen: gravid (obese), soft, no abnormal tenderness, no guarding Lower extremities: Edema: trace (round red dots on legs belowkn) Calf tenderness: negative Baby A: Baby A baseline: 145 bpm Baby A variability: moderate 6-25 bpm Baby A accelerations: 15 X 15 Baby A decelerations: variable Baby A FHR category: discontinous, looks cat 1 Findings/data: Laboratory Tests: 12/28 12/28 1023 1022 Chemistry Creatinine (0.5 - 1.0 mg/dL) 0.4 L 0.6 Urines Ur Random Creatinine (mg/dL) 67.6 U Random Total Protein (mg/dL) 37.9 Urine Total Volume (ML) 2200 Creatinine Clearance (70 - 120 ml/min) 258 H Ur Total Protein 24 Hr (20 - 150 mg/24HR) 834 *H Diagnosis, Assessment Plan Diagnosis, Assessment Plan Free Text A P: 32 y/o [facility] 02-20-23 [facility] at 32 2/7 weeks transported from [place] at 26.2 for sob, orthopnea, pulm edema. PNC w dr cristina clay 1) IDDM- hgba1c 6.6 at sending 11-13, on lantus 60 bid, humalog 50B, 60L, 70D Consulted rohan, nutrition and DM counselor. fructosamine 11-18 198, 11/30 217, 200, current insulin dose lantus am/pm 152/160, humalog 106, 122, 160 and metformin to 1000 bid 12-28 doing well after falling in shower. reminded her to be careful. PLAN- fuctosamine in am, cpm 10-16 on cgm, glu consistently high, probably as a result of bmz given 12-26. PLAN- incr insulin by 15%, new doses lantus am/pm 152/160, humalog 106, 122, 160 - back on cgm, reviewed w dr madrigal at bedside PLAN- incr metf to 100 bid - back on cgm. PLAN- i sent cgm graph to dr madrigal who will see pt in am, cpm 10-10 doing fingersticks fbs 92, B 80 L 138. PLAN- cpm, cgm should be back on by dinner tomorrow 10- i spoke kushal madrigal and reviewed cgm, bs very labile, cgm will run out tonight. mom cant bring new one until tue. PLAN- finger sticks for /tue 10-6 glu very labile. pt seen by diab educ and flight crew ordnanceman. disc kushal madrigal. PLAN- cpm, reeval 10- mon 10-5 occ glu low 67 lunchtime humalog held. disc w dr madrigal. rec cpm 10-2 cgm stable, remains above 200 most of the time, occ lows. pt thinks this is d/t diet. . i showed graph to dr madrigal, he rec incr by 15%. new dosing lantus 132/138. humalog B92 L 106, D138 9-29 cgm showed some improvement, but spikes after dinner . PLAN- incr humalog D to 120, fructosamine ordered for am. Pt seen w dr madrigal 9- glu sig drop. pt asympt. lunch humalog held. PLAN- cpm, dr madrigal to see pt 12-03 9-20 min change in dexcon 7 readings. will incr insulin by 15%, to lantus 115/ 120, humalog B80, L92, D 102, fructosamine 9- 217 2) Prematurity- s/p bmz x 2 (-,6) no mgso4 d/t pulm edema, kiran felipe 3) U/S 10-8 blaise coates vertex, anterior placenta, MATHEUS 8.5 decreased, S/D 4.9 -5.3 increased EFW 1384 gms, 5.6 % low normalinterval growth interval gwoth, BPP 8/8, cervix long closed. PLAN- rescan this 9-24 KA, S:D 4.9-5.3, EFW 1084, 5.6%, AFT 9.5, BPP 8/8, cx long closed. 9-4 gei Coates Cephalic CGA c/w dates UA-PI: 0.95 DVP: 2.7 Anatomy severely limited due to morbid obesity. PLAN- next scan in 2 weeks (the patient is wanting q week) The pt would like a "natural childbirth," but I explained to her she will need to be flexible, high risk of . The pt also would like only to give breast milk to baby and nothing else--again, I d/w her this may depend on many factors including whether she delivers early--which she may need to. Sometimes premies need umbilical lines and do not latch well, but we generally do all we can to help the baby get mom's breast milk as much as possible. 4) FWB- nst bid--> per pt's request, 1 hr TID after meals 10-6 nst cat 1, occ sharp variable but overall reassuring. PLAN- cont nst q8h 5) DVT prophy- lovenox 40 mg, had d/w pt and mom regarding why this is important. Pt requests to ambulate some, and have okayed this. Pt may also be a little stir crazy and need a little change of atmosphere. 6) Chr htn r/o YOVANY- bp at home 190/110, since adm bp 120-130/50-70 on labet 200 q 8 , procardia 30 xl bid. upcr 626, dropped to 241. nl ast/alt, plat. 24hu 554 mg. PLAN- still some labile BPs, continue to follow. 10-17 bp 130-140/60-70, 24hu 834mg. PLAN- cpm 10-16 bp 130-150/60-70, had htn 10-15 188/80, 176/79, incr proc to 60 bid, nl plat and lft, no other s/s preE. PLAN- repeat 24hu pending, cpm 7) ADHD/depression- stable on seroquel, zoloft 8) sleep apnea--pulm consult, per dr crocker, pt refusing cpap d/t claustrophobia. o2 sats are reassuring 9) fatigue--TSH nl, iron studies show bordeline deficiency, on iron and colace 10) Vulvar bump, vag odor and rash on abd. all asympt. no evidence of std. 9-15 wet mount neg for trich and bv, urine gc/chlam neg 11) pt requests to dc IV. I d/w her may need for BPmeds or diabetes meds, but she says we can stick her again if needed added Nifedipine (PO) protocol prn 12) Pulm edema, on adm- now resolved , echo at sending wnl, pt feels better since adm, had cxr on adm w min pulm edema. 13) Pruritic red spots on legs- per dr madrigal they seem to me self-inflicted. PLAN- hc cream and dph prn 14) "Bad gums"- h/o same, afraid to see dentist. PLAN- saline gargles 15) Nose bleeds 10-- ocean saline spray prn Pt seen and d/w dr josé at 1132 RPT #:[id number] END OF REPORT [facility] 2022-12-27 07:31:00 [facility] ([facility] OB Antepartum Prog Note REPORT#:[id number] REPORT STATUS: Signed REPORT INITIALIZATION DATE:12/27/22 TIME: 730 PATIENT: AMINTA NINO UNIT #: [id number] ROOM/BED: [address] : 92 AGE: 32 SEX: F ATTEND: Jak Herrera MD ADM AUTHOR: Darron Santacruz MD REPT SERVICE DT/TIME: 12/27/22 07 * ALL edits or amendments must be made on the electronic/computer document * Subjective Subjective Patient reports: Patient reports: Yes normal movement, No abdominal pain, No vaginal bleeding, No leaking fluid, No contractions Comments: c/o nose bleed Objective VS: Last Documented: Result Date Time B/P Mean 93.0 12/27 1202 Pulse Ox 98 12/27 1202 B/P 135/66 12/27 1202 Temp 97.8 12/27 1202 Pulse 98 12/27 1202 Resp 17 12/27 1202 FiO2 21 12/23 2014 O2 Delivery Room air 12/23 2014 Vital Signs Date Temp Pulse Resp B/P B/P Mean Pulse Ox FiO2 12/26-12/27 97.8-98.6 79-104 17 126-188/61-80 85.0-115.0 98-99 PATIENT WEIGHT: Weight (lb): 250 Weight (oz): Weight (kg): 113.600 Membranes: Intact Abdomen: gravid (obese), soft, no abnormal tenderness, no guarding Uterus: soft, non-tender Baby A: Baby A baseline: 145 bpm Baby A variability: moderate 6-25 bpm Baby A accelerations: 15 X 15 Baby A decelerations: variable Baby A FHR category: discontinous, looks cat 1 Diagnosis, Assessment Plan Diagnosis, Assessment Plan Free Text A P: 32 y/o [facility] 02-20-23 [facility] at 32 1/7 weeks transported from [place] at 26.2 for sob, orthopnea, pulm edema. PNC w dr cristina clay 1) IDDM- hgba1c 6.6 at sending 11-13, on lantus 60 bid, humalog 50B, 60L, 70D Consulted rohan, nutrition and DM counselor. fructosamine 11-18 198, 11/30 217, 200, current insulin dose lantus 132/138. humalog B92 L 106, D138 and metformin to 1000 bid 12-27 on cgm, glu consistently high, probably as a result of bmz given 12-26. PLAN- incr insulin by 15%, new doses lantus am/pm 152/160, humalog 106, 122, 160 10- back on cgm, reviewed w dr madrigal at bedside PLAN- incr metf to 100 bid - back on cgm. PLAN- i sent cgm graph to dr madrigal who will see pt in am, cpm 10-10 doing fingersticks fbs 92, B 80 L 138. PLAN- cpm, cgm should be back on by dinner tomorrow 12-20 i spoke w rohan and reviewed cgm, bs very labile, cgm will run out tonight. mom cant bring new one until tue. PLAN- finger sticks for /tue 10-6 glu very labile. pt seen by diab educ and flight crew ordnanceman. disc w rohan. PLAN- cpm, reeval 12-20 mon 10-5 occ glu low 67 lunchtime humalog held. disc w dr madrigal. rec cpm 10-2 cgm stable, remains above 200 most of the time, occ lows. pt thinks this is d/t diet. . i showed graph to dr madrigal, he rec incr by 15%. new dosing lantus 132/138. humalog B92 L 106, D138 12-10 cgm showed some improvement, but spikes after dinner . PLAN- incr humalog D to 120, fructosamine ordered for am. Pt seen w dr madrigal 12-02 glu sig drop. pt asympt. lunch humalog held. PLAN- cpm, dr madrigal to see pt 9-22 9-20 min change in dexcon 7 readings. will incr insulin by 15%, to lantus 115/ 120, humalog B80, L92, D 102, fructosamine 9-19 217 2) Prematurity- s/p bmz x 2 (9-5,6) no mgso4 d/t pulm edema, kiran felipe 3) U/S 10-8 blaise coates vertex, anterior placenta, MATHEUS 8.5 decreased, S/D 4.9 -5.3 increased EFW 1384 gms, 5.6 % low normalinterval growth interval gwoth, BPP 8/8, cervix long closed 9-24 KA, S:D 4.9-5.3, EFW 1084, 5.6%, AFT 9.5, BPP 8/8, cx long closed. 9-4 gei Coates Cephalic CGA c/w dates UA-PI: 0.95 DVP: 2.7 Anatomy severely limited due to morbid obesity. PLAN- next scan in 2 weeks (the patient is wanting q week) The pt would like a "natural childbirth," but I explained to her she will need to be flexible, high risk of . The pt also would like only to give breast milk to baby and nothing else--again, I d/w her this may depend on many factors including whether she delivers early--which she may need to. Sometimes premies need umbilical lines and do not latch well, but we generally do all we can to help the baby get mom's breast milk as much as possible. 4) FWB- nst bid--> per pt's request, 1 hr TID after meals 10-6 nst cat 1, occ sharp variable but overall reassuring. PLAN- cont nst q8h 5) DVT prophy- lovenox 40 mg, had d/w pt and mom regarding why this is important. Pt requests to ambulate some, and have okayed this. Pt may also be a little stir crazy and need a little change of atmosphere. 6) Chr htn r/o YOVANY- bp at home 190/110, since adm bp 120-130/50-70 on labet 200 q 8 , procardia 30 xl bid. upcr 626, dropped to 241. nl ast/alt, plat. 24hu 554 mg. PLAN- still some labile BPs, continue to follow. 10-16 bp 130-150/60-70, had htn 10-15 188/80, 176/79, incr proc to 60 bid, nl plat and lft, no other s/s preE. PLAN- repeat 24hu, cpm 7) ADHD/depression- stable on seroquel, zoloft 8) sleep apnea--pulm consult, per dr crocker, pt refusing cpap d/t claustrophobia. o2 sats are reassuring 9) fatigue--TSH nl, iron studies show bordeline deficiency, on iron and colace 10) Vulvar bump, vag odor and rash on abd. all asympt. no evidence of std. 9-15 wet mount neg for trich and bv, urine gc/chlam neg 11) pt requests to dc IV. I d/w her may need for BPmeds or diabetes meds, but she says we can stick her again if needed added Nifedipine (PO) protocol prn 12) Pulm edema, on adm- now resolved , echo at sending wnl, pt feels better since adm, had cxr on adm w min pulm edema. 13) Pruritic red spots on legs- per dr madrigal they seem to me self-inflicted. PLAN- hc cream and dph prn 14) "Bad gums"- h/o same, afraid to see dentist. PLAN- saline gargles 15) Nose bleeds 10-16- ocean saline spray prn Pt seen and d/w dr ochoa at 1354 RPT #:[id number] END OF REPORT [facility] 2022-12-26 21:36:00 [facility] MFM Consultation Note REPORT#:[id number] REPORT STATUS: Signed REPORT INITIALIZATION DATE:12/26/22 TIME: 2135 PATIENT: AMINTA NINO UNIT #: [id number] ROOM/BED: [address] : 92 AGE: 32 SEX: F ATTEND: Jak Herrera MD ADM AUTHOR: Jak Herrera MD REPT SERVICE DT/TIME: 12/26/222135 * ALL edits or amendments must be made on the electronic/computer document * History of Present Illness HPI Requesting clinician: Dr Millan Reason for consult: Higher blood pressures Chief complaint: Transferred for [facility] PCP: PCP: Tad Jordan MD HPI: H/O diabetes H/O obesity H/O recent episode of pneumonia History Past History Allergies: Coded Allergies: latex (SWELLING 11/15/22) Objective Physical Exam VS/I O: Last Documented: Result Date Time B/P Mean 106.0 12/26 2036 B/P 151/76 12/26 2036 Pulse 92 12/26 2036 Pulse Ox 98 12/26 1044 Resp 17 12/26 1651 Temp 98.1 12/25 161 FiO2 21 12/23 2014 O2 Delivery Room air 12/23 2014 PATIENT WEIGHT: Weight (lb): 250 Weight (oz): Weight (kg): 113.600 Results Findings/Data: Laboratory Tests 12/26 1205 Chemistry Sodium (135 - 145 mEq/L) 137 Potassium (3.5 - 5.0 mEq/L) 4.5 Chloride (100 - 115 mEq/L) 102 Carbon Dioxide (22 - 31 mEq/L) 24 Anion Gap (10 - 20) 15.70 BUN (7 - 18 mg/dL) 11 Creatinine (0.5 - 1.0 mg/dL) 0.4 L Glomerular Filtr Rate (>60 ml/min) 136 Glucose (65 - 110 mg/dL) 139 H Calcium (8.4 - 10.2 mg/dL) 9.0 Total Bilirubin (0.2 - 1.0 mg/dL) 0.2 AST (15 - 37 units/L) 15 ALT (12 - 78 units/L) 18 Total Alk Phosphatase (46 - 116 units/L) 110 Total Protein (6.3 - 8.2 gm/dL) 6.8 Albumin (3.4 - 4.8 gm/dL) 2.6 L Laboratory Tests 12/26 120 Coagulation PT (9.8 - 13.3 secs) 10.0 PTT (Shital) (26.2 - 37.2 secs) 29 Laboratory Tests 12/26 1205 Hematology WBC (6.5 - 12.3 K/mm3) 12.4 H RBC (3.51 - 4.69 M/mm3) 4.50 Hgb (10.1 - 13.8 g/dL) 12.3 Hct (32.5 - 41.8 %) 36.1 MCV (84.6 - 96.6 fL) 80.2 L MCH (27.3 - 33.9 pg) 27.3 MCHC (32.0 - 34.2 gm/dL) 34.1 RDW (12.2 - 16.3 %) 14.1 Plt Count (134 - 363 K/mm3) 307 MPV (9.2 - 12.7 fL) 9.5 Neut % (Auto) (57.9 - 77.3 %) 64.4 Lymph % (Auto) (14.5 - 29.7 %) 27.0 [place] % (Auto) (3.6 - 10.2 %) 6.6 Eos % (Auto) (0.0 - 3.0 %) 0.5 Baso % (Auto) (0.1 - 0.9 %) 0.3 Neut # (Auto) (K/mm3) 8.0 Lymph # (Auto) (K/mm3) 3.3 [place] # (Auto) (K/mm3) 0.8 Eos # (Auto) (K/mm3) 0.06 Baso # (Auto) (K/mm3) 0.0 Bedside US: -Coates -Cephalic -MATHEUS: 8.0 -UA: Normal waveform; UA-PI: 1.46 (99th p/GA) -MCA: Norml waveform; MCA-PI: 1.75 (26th p/GA) -CPR: 1.2 (1st p/GA) Impression: Evidence of increased placental vascualr resistance and CYTOGENETICS TECHNOLOGIST blood flow redistribution No Doppler or fluid criteria for delivery at this time. Diagnosis, Assessment Plan Diagnosis, Assessment Plan Free Text A P: A/P 1- 2-SIUP at 26 1/7 weeks 3-PIH w/o features of severity 4-Class B DM; 5-Severe obesity / Excessive MWG 6-LU Plan: 1-Diabetic diet 2000 Florencio 2-Sliding scale of Humalog 3-D/C Higgins 4-Labs in AM 5-Respiratory consult for CPAP at night at 7710 RPT #:[id number] END OF REPORT [facility] 2022-12-26 16:37:00 [facility] ([facility]) Clinical Note REPORT#:[id number] REPORT STATUS: Signed REPORT INITIALIZATION DATE:12/26/22 TIME: 1637 PATIENT: AMINTA NINO UNIT #: [id number] ROOM/BED: [address] : 92 AGE: 32 SEX: F ATTEND: Jak Herrera MD ADM AUTHOR: Sterling Millan MD REPT SERVICE DT/TIME: 12/26/22 163 * ALL edits or amendments must be made on the electronic/computer document * Clinical Note Note: Called by RN that Patient had 2 more severe range bp's despite increase in procardia this am. 176/79 amd 188/80. She gave the patient her labetalol early but will start IV labetalol protocol. Patient seems to be worsening clinical from YOVANY standpint so will give booster BMZ (last 11/15 and 11/16) and will add sliding scale insulin as expect her sugars will worsen due to steroids. at 1640 RPT #:[id number] END OF REPORT [facility] 2022-12-26 08:13:00 [facility] ([facility]) OB Antepartum Prog Note REPORT#:[id number] REPORT STATUS: Signed REPORT INITIALIZATION DATE:12/26/22 TIME: 812 PATIENT: AMINTA NINO UNIT #: [id number] ROOM/BED: [address] : [birth year] AGE: 32 SEX: F ATTEND: Jak Herrera MD ADM AUTHOR: Sterling Millan MD REPT SERVICE DT/TIME: 12/26/22 0813 * ALL edits or amendments must be made on the electronic/computer document * See Addendum Subjective Subjective Admission EGA: Weeks: 26 Days: 1 Current EGA: Current EGA(wks): 32 Current EGA(days): 0 Patient reports: Patient reports: Yes: complaints (tired), normal movement. No: abdominal pain, headache , blurred vision. Review of Systems Constitutional: Reports: fatigue. Denies: chills, fever, generalized weakness, lethargy, malaise, recent wt loss, other. : Reports: . Denies: dysuria, flank pain, frequency, hematuria, nocturia, pelvic pain, urgency, urinary retention, vaginal bleeding, vaginal discharge, other. Objective Nursing Documentation Review Nursing data: The data set between the solid lines has been imported from nursing documentation. Any exceptions have been noted below under Provider comments. ROM date: ROM time: Labor onset date: Labor onset time: Provider comments on imported nursing data: [] VS: Last Documented: Result Date Time B/P Mean 93.0 12/26 0534 B/P 136/65 12/26 0534 Pulse 88 12/26 0534 Pulse Ox 94 12/258 Resp 17 12/25 1652 Temp 98.1 12/25 1613 FiO2 21 12/23 2014 O2 Delivery Room air 12/23 2014 Vital Signs Date Temp Pulse Resp B/P B/P Mean Pulse Ox FiO2 12/25-12/26 97.9-98.2 83-90 17-18 130-179/65-88 93.0-127.0 94-99 PATIENT WEIGHT: Weight (lb): 250 Weight (oz): Weight (kg): 113.600 Medications: Active Meds + DC'd Last 24 Hrs Nifedipine (ADALAT 10 MG CAP) 10 MG ONCE ONE PO (DC) Metformin HCl (GLUCOPHAGE 500MG TAB) 1,000 MG BID PO Hydrocortisone (HYDROCORTISONE 1%) 1 APPL ASDIR PRN PRN TOPICAL Enoxaparin Sodium (LOVENOX 40 MG INJ) 40 MG DAILY SUBQ Labetalol HCl (LABETALOL HCL 200 MG) 200 MG Q8H PO Insulin Human Lispro (HumaLOG 3ML VIAL) 106 UNITS AC MILDRED SUBQ Insulin Glargine (LANTUS/SEMGLEE INSULIN 100 UNITS/ML) 132 UNIT AC BK SUBQ Insulin Human Lispro (HumaLOG 3ML VIAL) 92 UNITS AC BK SUBQ Insulin Glargine (LANTUS/SEMGLEE INSULIN 100 UNITS/ML) 138 UNIT BEDTIME SUBQ Insulin Human Lispro (HumaLOG 3ML VIAL) 138 UNITS AC DIN SUBQ Labetalol HCl (NORMODYNE 100 MG/20 ML VIAL) 20 MG ASDIR PRN IV (DC) Nifedipine (ADALAT 10 MG CAP) 20 MG ASDIR PRN PO Dextrose (Glutose-15 (40%)) 37.5 ML Q15M PRN PRN BUCCAL Glucagon (GLUCAGON 1 MG/VIAL) 1 MG ASDIR PRN IM Dextrose/Water (DEXTROSE 50% IN WATER 50 ML SYR) 50 ML ASDIR PRN IV (CKD ) Acetaminophen/Butalbital/Caffe ine (Fioricet 50-300-40 MG Capsule) 2 EACH Q6H PRN PRN PO Multivitamin Hematinic Therapeutic (FERRALET 90 TABLET) 1 EACH DAILY PO Docusate Sodium (DOCUSATE SODIUM 100 MG CAP) 200 MG BEDTIME PO Hydralazine HCl (hydrALAZINE HCL 20MG) 10 MG ASDIR PRN IV Labetalol HCl (NORMODYNE 100 MG/20 ML VIAL) 40 MG ASDIR PRN IV Labetalol HCl (NORMODYNE 100 MG/20 ML VIAL) 80 MG ASDIR PRN IV Acetaminophen (ACETAMINOPHEN 325 MG TAB) 650 MG Q4H PRN PRN PO Patient Own Medication (PATIENT'S OWN MEDICATION) 2 EACH ASDIR PO Hydroxyzine HCl (ATARAX) 50 MG BEDTIME PRN PO Nifedipine (PROCARDIA XL 30 MG) 30 MG BID PO Sertraline HCl (ZOLOFT 50 MG TAB) 100 MG DAILY PO Quetiapine Fumarate (SEROquel 100MG TABLET) 100 MG BEDTIME PO Calcium Gluconate (CA GLUCONATE 1 GM/10 ML VIAL) 1,000 MG BOLUS ASDIR PRN IV Membranes: Intact Uterine activity: Monitor: toco Frequency (description): none HEENT: normocephalic w/o injury, pupils equal, no scleral icterus, buffalo hump Lungs: unlabored breathing Neuro: Exam: alert, oriented x3, normal speech Abdomen: gravid (obese), soft, no abnormal tenderness, no guarding Uterus: soft, non-tender Lower extremities: Edema: trace (round red dots on legs belowkn) Calf tenderness: negative Baby A: Baby A baseline: 145 bpm Baby A variability: moderate 6-25 bpm Baby A accelerations: 15 X 15 Baby A decelerations: variable Baby A FHR category: discontinous, looks cat 1 Findings/data: Laboratory Tests Test Result Date Time Chemistry Sodium (135 - 145 mEq/L) 135 11/22 1438 Potassium (3.5 - 5.0 mEq/L) 4.3 11/22 1438 Chloride (100 - 115 mEq/L) 100 11/22 1438 Carbon Dioxide (22 - 31 mEq/L) 24 11/22 1438 Anion Gap (10 - 20) 15.50 11/22 1438 BUN (7 - 18 mg/dL) 13 11/22 1438 Creatinine (0.5 - 1.0 mg/dL) 0.5 11/22 1438 Glomerular Filtr Rate (>60 ml/min) 129 11/22 1438 Glucose (65 - 110 mg/dL) 169 H 11/22 1438 POC Glucose (65 - 110 mg/dL) 196 H 12/22 1439 Fructosamine (0 - 285 umol/L) 200 12/10 0907 Insulin Level (2.6 - 24.9 uIU/mL) 37.3 H 11/18 1218 C-Peptide (1.1 - 4.4 ng/mL) 1.5 11/18 1218 Calcium (8.4 - 10.2 mg/dL) 9.3 11/22 1438 Iron (37 - 170 MCG/DL) 129 11/23 1326 TIBC (265 - 497 MCG/DL) 634 H 12 1326 % Saturation (12 - 57 %) 20 09/12 1326 Ferritin (6.24 - 137 NG/ML) 63.3 09/12 1326 Total Bilirubin (0.2 - 1.0 mg/dL) 0.3 09/11 1438 AST (15 - 37 units/L) 15 09/11 1438 ALT (12 - 78 units/L) 18 09/11 1438 Total Alk Phosphatase (46 - 116 units/L) 104 09/11 1438 B-Natriuretic Peptide (0 - 100 pg/mL) 0.38 09/12 1326 Total Protein (6.3 - 8.2 gm/dL) 6.9 09/11 1438 Albumin (3.4 - 4.8 gm/dL) 2.7 L 09/11 1438 TSH (0.36 - 3.74) 2.13 09/ 1326 Hematology WBC (6.5 - 12.3 K/mm3) 14.5 H 11/22 1438 RBC (3.51 - 4.69 M/mm3) 4.77 H 0911 1438 Hgb (10.1 - 13.8 g/dL) 13.2 09/11 1438 Hct (32.5 - 41.8 %) 37.8 09/11 1438 MCV (84.6 - 96.6 fL) 79.2 L 09/11 1438 MCH (27.3 - 33.9 pg) 27.7 09/11 1438 MCHC (32.0 - 34.2 gm/dL) 34.9 H 0911 1438 RDW (12.2 - 16.3 %) 13.5 09/11 1438 Plt Count (134 - 363 K/mm3) 305 09/11 1438 MPV (9.2 - 12.7 fL) 10.1 09/11 1438 Neut % (Auto) (57.9 - 77.3 %) 70.7 09/11 1438 Lymph % (Auto) (14.5 - 29.7 %) 22.8 09/11 1438 [place] % (Auto) (3.6 - 10.2 %) 5.2 09/11 1438 Eos % (Auto) (0.0 - 3.0 %) 0.4 09/11 1438 Baso % (Auto) (0.1 - 0.9 %) 0.3 11/22 1438 Neut # (Auto) (K/mm3) 10.2 11/22 1438 Lymph # (Auto) (K/mm3) 3.3 11/22 1438 [place] # (Auto) (K/mm3) 0.8 11/22 143 Eos # (Auto) (K/mm3) 0.06 11/22 143 Baso # (Auto) (K/mm3) 0.0 11/22 143 Serology Treponema pallidum Ab (NONREACTIVE) NONREACTIVE 11/15 1641 Chlamydia DNA Probe (Not Detecte) NOT DETECTED 11/26 1729 Hep Bs Antigen (NONREACTIVE) NONREACTIVE 11/15 164 Hepatitis C Antibody (NONREACTIVE) NONREACTIVE 11/15 164 Hep C Ab Signal/Cutoff (<0.80) 0.04 11/15 164 HIV 1 2 Antibody (NONREACTIVE) NONREACTIVE 11/15 1641 N.gonorrhoeae DNA Probe (Not Detecte) NOT DETECTED 11/26 1729 Rubella Screen (IUnit/ml) 8.2 11/23 1326 Urines Urine Color (YELLOW) YELLOW 11/22 1437 Urine Appearance (CLEAR) CLEAR 11/22 1437 Urine pH (5 - 9) 6.0 11/22 1437 Ur Specific Rarden (1.001 - 1.035) 1.023 11/22 1437 Urine Protein (NEG) NEGATIVE 11/22 1437 Urine Glucose (UA) (NEG) NEGATIVE 11/22 1437 Urine Ketones (NEG) NEGATIVE 11/22 1437 Urine Blood (NEG) NEG 11/22 143 Urine Nitrite (NEG) NEG 11/22 143 Urine Bilirubin (NEG) NEGATIVE 11/22 143 Urine Urobilinogen (NEG mg/dL) NEGATIVE 11/22 1437 Ur Leukocyte Esterase (NEG) NEG 11/22 1437 Urine RBC (NONE SEEN #/hpf) 0-2 11/22 143 Urine WBC (NONE SEEN #/hpf) 3-5 H 11/22 143 Ur Epithelial Cells (RARE - FEW #/HPF) RARE 11/22 143 Urine Bacteria (RARE - FEW /HPF) RARE 11/22 143 Urine Mucus (NONE SEEN) RARE 11/22 1437 Ur Random Creatinine (mg/dL) 135.6 11/22 143 U Random Total Protein (mg/dL) 30.4 11/22 1437 Urine Total Volume (ML) 2600 11/17 2029 Creatinine Clearance (70 - 120 ml/min) 164 H 11/17 2029 Ur Total Protein 24 Hr (20 - 150 mg/24HR) 554 *H 11/17 2029 Protein/Creatinin Ratio (<200 mg/gcrea) 224.1 H 11/22 1438 Diagnosis, Assessment Plan Diagnosis, Assessment Plan Free text A P: 32 y/o [facility] 02-20-23 [facility] at 32 weeks transported from [place] 11-15-22 at 26.2 for sob, orthopnea, pulm edema. PNC w dr cristina clay 1) IDDM- hgba1c 6.6 at sending 11-13, on lantus 60 bid, humalog 50B, 60L, 70D Consulted rohan, nutrition and DM counselor. fructosamine 11-18 198, 11/30 217, 200, current insulin dose lantus 132/138. humalog B92 L 106, D138 12-25 continue current management plans 12-24 back on cgm, reviewed w dr madrigal at bedside PLAN- incr metformin to 1000 bid 12-22 back on cgm. PLAN- i sent cgm graph to dr madrigal who will see pt in am, cpm 10-10 doing fingersticks fbs 92, B 80 L 138. PLAN- cpm, cgm should be back on by dinner tomorrow 12-20 i spoke kushal madrigal and reviewed cgm, bs very labile, cgm will run out tonight. mom cant bring new one until tue. PLAN- finger sticks for /12-17 glu very labile. pt seen by diab educ and flight crew ordnanceman. disc w rohan. PLAN- cpm, reeval 12-20 mon 10-5 occ glu low 67 lunchtime humalog held. disc w dr madrigal. rec cpm 10-2 cgm stable, remains above 200 most of the time, occ lows. pt thinks this is d/t diet. . i showed graph to dr madrigal, he rec incr by 15%. new dosing lantus 132/138. humalog B92 L 106, D138 12-10 cgm showed some improvement, but spikes after dinner . PLAN- incr humalog D to 120, fructosamine ordered for am. Pt seen w dr madrigal 9- glu sig drop. pt asympt. lunch humalog held. PLAN- cpm, dr madrigal to see pt - 9-20 min change in dexcon 7 readings. will incr insulin by 15%, to lantus 115/ 120, humalog B80, L92, D 102, fructosamine 9- 217 2) Prematurity- s/p bmz x 2 (9-5,6) no mgso4 d/t pulm edema, kiran felipe 3) U/S 10-8 blaise coates vertex, anterior placenta, MATHEUS 8.5 decreased, S/D 4.9 -5.3 increased EFW 1384 gms, 5.6 % low normalinterval growth interval gwoth, BPP 8/8, cervix long closed 9-24 KA, S:D 4.9-5.3, EFW 1084, 5.6%, AFT 9.5, BPP 8/8, cx long closed. 9-4 gei Coates Cephalic CGA c/w dates UA-PI: 0.95 DVP: 2.7 Anatomy severely limited due to morbid obesity. PLAN- next scan in 2 weeks (the patient is wanting q week) The pt would like a "natural childbirth," but I explained to her she will need to be flexible, high risk of . The pt also would like only to give breast milk to baby and nothing else--again, I d/w her this may depend on many factors including whether she delivers early--which she may need to. Sometimes premies need umbilical lines and do not latch well, but we generally do all we can to help the baby get mom's breast milk as much as possible. 4) FWB- nst bid--> per pt's request, 1 hr TID after meals 10-6 nst cat 1, occ sharp variable but overall reassuring. PLAN- cont nst q8h 5) DVT prophy- lovenox 40 mg, had d/w pt and mom regarding why this is important. Pt requests to ambulate some, and have okayed this. Pt may also be a little stir crazy and need a little change of atmosphere. 6) Chr htn r/o YOVANY- bp at home 190/110, since adm bp 120-130/50-70 on labet 200 q 8 , procardia 30 xl bid. upcr 626, dropped to 241. nl ast/alt, plat. 24hu 554 mg. PLAN- still some labile BPs, continue to follow. 10 bp 130-140/60-70, no other s/s preE. 12/26 6 bp's in severe range in last 24 hours- repeat PI labs today. May need to move towards delivery, will adjust po meds. Dr Herrera informed 7) ADHD/depression- stable on seroquel, zoloft 8) sleep apnea--pulm consult, per dr crocker, pt refusing cpap d/t claustrophobia. o2 sats are reassuring 9) fatigue--TSH nl, iron studies show bordeline deficiency, on iron and colace 10) Vulvar bump, vag odor and rash on abd. all asympt. no evidence of std. 11-26 wet mount neg for trich and bv, urine gc/chlam neg 11) pt requests to dc IV. I d/w her may need for BPmeds or diabetes meds, but she says we can stick her again if needed added Nifedipine (PO) protocol prn 12) Pulm edema, on adm- now resolved , echo at sending wnl, pt feels better since adm, had cxr on adm w min pulm edema. 13) Pruritic red spots on legs- per dr madrigal they seem to me self-inflicted. PLAN- hc cream and dph prn 14) "Bad gums"- h/o same, afraid to see dentist. PLAN- saline gargles at 0933 Addendum 1: 12/26/22 1415 by Sterling Millan MD PI labs are nl. meds adjusted and bp's improved so far at 1415 RPT #:[id number] END OF REPORT [facility] 2022-12-25 11:36:00 [facility] ([facility] OB Antepartum Prog Note REPORT#:[id number] REPORT STATUS: Signed REPORT INITIALIZATION DATE:12/25/22 TIME: 1135 PATIENT: AMINTA NINO UNIT #: [id number] ROOM/BED: [address] : 92 AGE: 32 SEX: F ATTEND: Jak Herrera MD ADM AUTHOR: Stephanie Cota MD REPT SERVICE DT/TIME: 12/25/221135 * ALL edits or amendments must be made on the electronic/computer document * Subjective Subjective Patient reports: Patient reports: No: complaints, abdominal pain, vaginal bleeding, leaking fluid, contractions , normal movement. Review of Systems Constitutional: Denies: chills, fatigue, fever, generalized weakness. Objective Nursing Documentation Review Nursing data: The data set between the solid lines has been imported from nursing documentation. Any exceptions have been noted below under Provider comments. ROM date: ROM time: Labor onset date: Labor onset time: Provider comments on imported nursing data: [] VS: Last Documented: Result Date Time B/P Mean 100.0 12/25 940 Pulse Ox 98 12/25 940 B/P 140/73 12/25 940 Temp 98.2 12/25 940 Pulse 83 12/25 940 Resp 18 12/25 940 FiO2 21 12/23 2014 O2 Delivery Room air 12/23 2014 Vital Signs Date Temp Pulse Resp B/P B/P Mean Pulse Ox FiO2 12/24-12/25 98.1-98.2 83-92 18 123-152/64-73 91.0-103.0 98 PATIENT WEIGHT: Weight (lb): 250 Weight (oz): Weight (kg): 113.600 Membranes: Intact Uterine activity: Monitor: toco Frequency (description): none Cardiac: regular rate Lungs: unlabored breathing Neuro: Exam: alert, oriented x3, normal speech Abdomen: gravid (obese), soft, no abnormal tenderness, no guarding Uterus: soft, non-tender Lower extremities: Edema: trace (round red dots on legs belowkn) Calf tenderness: negative Baby A: Baby A baseline: 145 bpm Baby A variability: moderate 6-25 bpm Baby A accelerations: 15 X 15 Baby A decelerations: variable Baby A FHR category: discontinous, looks cat 1 Diagnosis, Assessment Plan Diagnosis, Assessment Plan Free text A P: 32 y/o [facility] 02-20-23 [facility] at 32 weeks transported from [place] 11-15-22 at 26.2 for sob, orthopnea, pulm edema. PNC w dr cristina clay 1) IDDM- hgba1c 6.6 at sending 11-13, on lantus 60 bid, humalog 50B, 60L, 70D Consulted rohan, nutrition and DM counselor. fructosamine 11-18 198, 11/30 217, 200, current insulin dose lantus 132/138. humalog B92 L 106, D138 12-25 continue current management plans 12-24 back on cgm, reviewed w dr madrigal at bedside PLAN- incr metformin to 1000 bid 12-22 back on cgm. PLAN- i sent cgm graph to dr madrigal who will see pt in am, cpm 10- doing fingersticks fbs 92, B 80 L 138. PLAN- cpm, cgm should be back on by dinner tomorrow 12-20 i spoke kushal madrigal and reviewed cgm, bs very labile, cgm will run out tonight. mom cant bring new one until tue. PLAN- finger sticks for /wed - glu very labile. pt seen by diab educ and flight crew ordnanceman. disc kushal madrigal. PLAN- cpm, reeval 10-9 mon 10-5 occ glu low 67 lunchtime humalog held. disc w dr madrigal. rec cpm 10-2 cgm stable, remains above 200 most of the time, occ lows. pt thinks this is d/t diet. . i showed graph to dr madrigal, he rec incr by 15%. new dosing lantus 132/138. humalog B92 L 106, D138 9-29 cgm showed some improvement, but spikes after dinner . PLAN- incr humalog D to 120, fructosamine ordered for am. Pt seen w dr madrigal 9- glu sig drop. pt asympt. lunch humalog held. PLAN- cpm, dr madrigal to see pt - 9-20 min change in dexcon 7 readings. will incr insulin by 15%, to lantus 115/ 120, humalog B80, L92, D 102, fructosamine 9- 217 2) Prematurity- s/p bmz x 2 (9-5,6) no mgso4 d/t pulm edema, kiran felipe 3) U/S 10-8 blaise coates vertex, anterior placenta, MATHEUS 8.5 decreased, S/D 4.9 -5.3 increased EFW 1384 gms, 5.6 % low normalinterval growth interval gwoth, BPP 8/8, cervix long closed 9-24 KA, S:D 4.9-5.3, EFW 1084, 5.6%, AFT 9.5, BPP 8/8, cx long closed. 9-4 gei Coates Cephalic CGA c/w dates UA-PI: 0.95 DVP: 2.7 Anatomy severely limited due to morbid obesity. PLAN- next scan in 2 weeks (the patient is wanting q week) The pt would like a "natural childbirth," but I explained to her she will need to be flexible, high risk of . The pt also would like only to give breast milk to baby and nothing else--again, I d/w her this may depend on many factors including whether she delivers early--which she may need to. Sometimes premies need umbilical lines and do not latch well, but we generally do all we can to help the baby get mom's breast milk as much as possible. 4) FWB- nst bid--> per pt's request, 1 hr TID after meals 10-6 nst cat 1, occ sharp variable but overall reassuring. PLAN- cont nst q8h 5) DVT prophy- lovenox 40 mg, had d/w pt and mom regarding why this is important. Pt requests to ambulate some, and have okayed this. Pt may also be a little stir crazy and need a little change of atmosphere. 6) Chr htn r/o YOVANY- bp at home 190/110, since adm bp 120-130/50-70 on labet 200 q 8 , procardia 30 xl bid. upcr 626, dropped to 241. nl ast/alt, plat. 24hu 554 mg. PLAN- still some labile BPs, continue to follow. 10-12 bp 130-140/60-70, no other s/s preE. 7) ADHD/depression- stable on seroquel, zoloft 8) sleep apnea--pulm consult, per dr crocker, pt refusing cpap d/t claustrophobia. o2 sats are reassuring 9) fatigue--TSH nl, iron studies show bordeline deficiency, on iron and colace 10) Vulvar bump, vag odor and rash on abd. all asympt. no evidence of std. 9-15 wet mount neg for trich and bv, urine gc/chlam neg 11) pt requests to dc IV. I d/w her may need for BPmeds or diabetes meds, but she says we can stick her again if needed added Nifedipine (PO) protocol prn 12) Pulm edema, on adm- now resolved , echo at sending wnl, pt feels better since adm, had cxr on adm w min pulm edema. 13) Pruritic red spots on legs- per dr madrigal they seem to me self-inflicted. PLAN- hc cream and dph prn 14) "Bad gums"- h/o same, afraid to see dentist. PLAN- saline gargles at 1341 RPT #:[id number] END OF REPORT [facility] 2022-12-24 06:57:00 [facility] OB Antepartum Prog Note REPORT#:[id number] REPORT STATUS: Signed REPORT INITIALIZATION DATE:12/24/22 TIME: 656 PATIENT: AMINTA NINO UNIT #: [id number] ROOM/BED: [facility]8A : 92 AGE: 32 SEX: F ATTEND: Jak Herrera MD ADM AUTHOR: Darron Santacruz MD REPT SERVICE DT/TIME: 12/24/22656 * ALL edits or amendments must be made on the electronic/computer document * Subjective Subjective Patient reports: Patient reports: Yes normal movement, No abdominal pain, No vaginal bleeding, No leaking fluid, No contractions Comments: c/o red spots on legs, pruritic, also c/o "Bad gums"- h/o same, afraid to see dentist. Objective VS: Last Documented: Result Date Time B/P Mean 93.0 12/24 1152 Pulse Ox 97 12/24 1152 B/P 130/67 12/24 1152 Temp 97.9 12/24 1152 Pulse 88 12/24 1152 Resp 18 12/24 1152 FiO2 21 12/23 2014 O2 Delivery Room air 12/23 2014 Vital Signs Date Temp Pulse Resp B/P B/P Mean Pulse Ox FiO2 12/23-12/24 97.9-98.7 83-96 18 128-157/67-80 91.0-111.0 97-98 21 PATIENT WEIGHT: Weight (lb): 250 Weight (oz): Weight (kg): 113.600 Membranes: Intact Abdomen: gravid (obese), soft, no abnormal tenderness, no guarding Lower extremities: Edema: trace (round red dots on legs belowkn), 2+ pitting Calf tenderness: negative Baby A: Baby A baseline: 150 bpm Baby A variability: moderate 6-25 bpm Baby A accelerations: 15 X 15 Baby A decelerations: variable Baby A FHR category: discontinous, looks cat 1 Diagnosis, Assessment Plan Diagnosis, Assessment Plan Free Text A P: 32 y/o [facility]-20-23 [facility] at 31 5/7 weeks transported from [place] at 26.2 for sob, orthopnea, pulm edema. PNC w dr cristina caly 1) IDDM- hgba1c 6.6 at sending -, on lantus 60 bid, humalog 50B, 60L, 70D Consulted rohan, nutrition and DM counselor. fructosamine 11-18 198, 11/30 217, 200, current insulin dose lantus 132/138. humalog B92 L 106, D138 - back on cgm, reviewed w dr madrigal at bedside PLAN- incr metformin to 1000 bid 12-22 back on cgm. PLAN- i sent cgm graph to dr madrigal who will see pt in am, cpm 10-10 doing fingersticks fbs 92, B 80 L 138. PLAN- cpm, cgm should be back on by dinner tomorrow 12-20 i spoke w rohan and reviewed cgm, bs very labile, cgm will run out tonight. mom cant bring new one until tue. PLAN- finger sticks for /tue- glu very labile. pt seen by diab educ and flight crew ordnanceman. disc w rohan. PLAN- cpm, reeval 12-20 mon - occ glu low 67 lunchtime humalog held. disc w dr madrigal. rec cpm 10- cgm stable, remains above 200 most of the time, occ lows. pt thinks this is d/t diet. . i showed graph to dr madrigal, he rec incr by 15%. new dosing lantus 132/138. humalog B92 L 106, D138 12-10 cgm showed some improvement, but spikes after dinner . PLAN- incr humalog D to 120, fructosamine ordered for am. Pt seen w dr madrigal 12-02 glu sig drop. pt asympt. lunch humalog held. PLAN- cpm, dr madrigal to see pt 12-03 9-20 min change in dexcon 7 readings. will incr insulin by 15%, to lantus 115/ 120, humalog B80, L92, D 102, fructosamine 11-30 217 2) Prematurity- s/p bmz x 2 (9-5,6) no mgso4 d/t pulm edema, kiran felipe 3) U/S 10-8 blaise coates vertex, anterior placenta, MATHEUS 8.5 decreased, S/D 4.9 -5.3 increased EFW 1384 gms, 5.6 % low normalinterval growth interval gwoth, BPP 8/8, cervix long closed 9-24 KA, S:D 4.9-5.3, EFW 1084, 5.6%, AFT 9.5, BPP 8/8, cx long closed. 9-4 gei Coates Cephalic CGA c/w dates UA-PI: 0.95 DVP: 2.7 Anatomy severely limited due to morbid obesity. PLAN- next scan in 2 weeks (the patient is wanting q week) The pt would like a "natural childbirth," but I explained to her she will need to be flexible, high risk of . The pt also would like only to give breast milk to baby and nothing else--again, I d/w her this may depend on many factors including whether she delivers early--which she may need to. Sometimes premies need umbilical lines and do not latch well, but we generally do all we can to help the baby get mom's breast milk as much as possible. 4) FWB- nst bid--> per pt's request, 1 hr TID after meals 10-6 nst cat 1, occ sharp variable but overall reassuring. PLAN- cont nst q8h 5) DVT prophy- lovenox 40 mg, had d/w pt and mom regarding why this is important. Pt requests to ambulate some, and have okayed this. Pt may also be a little stir crazy and need a little change of atmosphere. 6) Chr htn r/o YOVANY- bp at home 190/110, since adm bp 120-130/50-70 on labet 200 q 8 , procardia 30 xl bid. upcr 626, dropped to 241. nl ast/alt, plat. 24hu 554 mg. PLAN- still some labile BPs, continue to follow. 10-12 bp 130-140/60-70, no other s/s preE. 7) ADHD/depression- stable on seroquel, zoloft 8) sleep apnea--pulm consult, per dr crocker, pt refusing cpap d/t claustrophobia. o2 sats are reassuring 9) fatigue--TSH nl, iron studies show bordeline deficiency, on iron and colace 10) Vulvar bump, vag odor and rash on abd. all asympt. no evidence of std. 9-15 wet mount neg for trich and bv, urine gc/chlam neg 11) pt requests to dc IV. I d/w her may need for BPmeds or diabetes meds, but she says we can stick her again if needed added Nifedipine (PO) protocol prn 12) Pulm edema, on adm- now resolved , echo at sending wnl, pt feels better since adm, had cxr on adm w min pulm edema. 13) Pruritic red spots on legs- per dr madrigal they seem to me self-inflicted. PLAN- hc cream and dph prn 14) "Bad gums"- h/o same, afraid to see dentist. PLAN- saline gargles Pt seen and d/w dr jerez at 1309 RPT #:[id number] END OF REPORT [facility] 2022-12-23 07:20:00 [facility] OB Antepartum Prog Note REPORT#:[id number] REPORT STATUS: Signed REPORT INITIALIZATION DATE:12/23/22 TIME: 719 PATIENT: AMINTA NINO UNIT #: [id number] ROOM/BED: [facility]A : 92 AGE: 32 SEX: F ATTEND: Jak Herrera MD ADM AUTHOR: Darron Santacruz MD REPT SERVICE DT/TIME: 12/23/22 0720 * ALL edits or amendments must be made on the electronic/computer document * Subjective Subjective Patient reports: Patient reports: Yes no complaints, Yes normal movement, No abdominal pain, No vaginal bleeding, No leaking fluid, No contractions Objective VS: Last Documented: Result Date Time B/P Mean 100.0 12/23 1251 Pulse Ox 97 12/23 1251 B/P 135/76 12/23 1251 Pulse 86 12/23 1251 Temp 98.3 12/23 1015 Resp 17 12/22 1201 FiO2 21 12/21 2030 O2 Delivery Room air 10/10 2030 Vital Signs Date Temp Pulse Resp B/P B/P Mean Pulse Ox FiO2 12/22-12/23 98.3 82-105 125-162/67-83 91.0-115.0 97-98 PATIENT WEIGHT: Weight (lb): 250 Weight (oz): Weight (kg): 113.600 Membranes: Intact Abdomen: gravid (obese), soft, no abnormal tenderness, no guarding Lower extremities: Edema: trace Calf tenderness: negative Baby A: Baby A baseline: 150 bpm Baby A variability: moderate 6-25 bpm Baby A accelerations: 15 X 15 Baby A decelerations: variable Baby A FHR category: discontinous, looks cat 1 Diagnosis, Assessment Plan Diagnosis, Assessment Plan Free Text A P: 32 y/o [facility] 02-20-23 [facility] at 31 4/7 weeks transported from [place] at 26.2 for sob, orthopnea, pulm edema. PNC w dr cristina clay 1) IDDM- hgba1c 6.6 at sending 11-13, on lantus 60 bid, humalog 50B, 60L, 70D Consulted rohan, nutrition and DM counselor. fructosamine 11-18 198, 11/30 217, 200, current insulin dose lantus 132/138. humalog B92 L 106, D138 10-11 back on cgm. PLAN- i sent cgm graph to dr madrigal who will see pt in am, cpm 10-10 doing fingersticks fbs 92, B 80 L 138. PLAN- cpm, cgm should be back on by dinner tomorrow 12-20 i spoke w rohan and reviewed cgm, bs very labile, cgm will run out tonight. mom cant bring new one until tue. PLAN- finger sticks for /tue 10-6 glu very labile. pt seen by diab educ and flight crew ordnanceman. disc w rohan. PLAN- cpm, reeval 12-20 mon 10-5 occ glu low 67 lunchtime humalog held. disc w dr madrigal. rec cpm 10-2 cgm stable, remains above 200 most of the time, occ lows. pt thinks this is d/t diet. . i showed graph to dr madrigal, he rec incr by 15%. new dosing lantus 132/138. humalog B92 L 106, D138 9-29 cgm showed some improvement, but spikes after dinner . PLAN- incr humalog D to 120, fructosamine ordered for am. Pt seen w dr madrigal 9- glu sig drop. pt asympt. lunch humalog held. PLAN- cpm, dr madrigal to see pt 9- 9-20 min change in dexcon 7 readings. will incr insulin by 15%, to lantus 115/ 120, humalog B80, L92, D 102, fructosamine 9- 217 2) Prematurity- s/p bmz x 2 (9-5,6) no mgso4 d/t pulm edema, kiran felipe 3) U/S 10-8 blaise coates vertex, anterior placenta, MATHEUS 8.5 decreased, S/D 4.9 -5.3 increased EFW 1384 gms, 5.6 % low normalinterval growth interval gwoth, BPP 8/8, cervix long closed 9-24 KA, S:D 4.9-5.3, EFW 1084, 5.6%, AFT 9.5, BPP 8/8, cx long closed. 9-4 gei Coates Cephalic CGA c/w dates UA-PI: 0.95 DVP: 2.7 Anatomy severely limited due to morbid obesity. PLAN- next scan in 2 weeks (the patient is wanting q week) The pt would like a "natural childbirth," but I explained to her she will need to be flexible, high risk of . The pt also would like only to give breast milk to baby and nothing else--again, I d/w her this may depend on many factors including whether she delivers early--which she may need to. Sometimes premies need umbilical lines and do not latch well, but we generally do all we can to help the baby get mom's breast milk as much as possible. 4) FWB- nst bid--> per pt's request, 1 hr TID after meals 10-6 nst cat 1, occ sharp variable but overall reassuring. PLAN- cont nst q8h 5) DVT prophy- lovenox 40 mg, had d/w pt and mom regarding why this is important. Pt requests to ambulate some, and have okayed this. Pt may also be a little stir crazy and need a little change of atmosphere. 6) Chr htn r/o YOVANY- bp at home 190/110, since adm bp 120-130/50-70 on labet 200 q 8 , procardia 30 xl bid. upcr 626, dropped to 241. nl ast/alt, plat. 24hu 554 mg. PLAN- still some labile BPs, continue to follow. 10-12 bp 130-140/60-70, no other s/s preE. 7) ADHD/depression- stable on seroquel, zoloft 8) sleep apnea--pulm consult, per dr crocker, pt refusing cpap d/t claustrophobia. o2 sats are reassuring 9) fatigue--TSH nl, iron studies show bordeline deficiency, on iron and colace 10) Vulvar bump, vag odor and rash on abd. all asympt. no evidence of std. 9-15 wet mount neg for trich and bv, urine gc/chlam neg 11) pt requests to dc IV. I d/w her may need for BPmeds or diabetes meds, but she says we can stick her again if needed added Nifedipine (PO) protocol prn 12) Pulm edema, on adm- now resolved , echo at sending wnl, pt feels better since adm, had cxr on adm w min pulm edema. Pt seen and d/w dr josé at 1622 RPT #:[id number] END OF REPORT [facility] 2022-12-23 06:53:00 [facility] OB Antepartum Prog Note REPORT#:[id number] REPORT STATUS: Signed REPORT INITIALIZATION DATE:12/23/22 TIME: 652 PATIENT: AMINTA NINO UNIT #: [id number] ROOM/BED: 5048-A : 92 AGE: 32 SEX: F ATTEND: Jak Herrera MD ADM AUTHOR: Taz Clifford MD REPT SERVICE DT/TIME: 12/05/22 0653 * ALL edits or amendments must be made on the electronic/computer document * Subjective Subjective Patient reports: Patient reports: No no complaints Objective VS: Last Documented: Result Date Time B/P Mean 93.0 12/23 0143 B/P 132/67 12/23 0143 Pulse 82 12/23 0143 Pulse Ox 98 12/22 2220 Temp 98.0 12/22 1201 Resp 17 12/22 1201 FiO2 21 12/21 2029 O2 Delivery Room air 12/21 2029 Vital Signs Date Temp Pulse Resp B/P B/P Mean Pulse Ox FiO2 12/22-12/23 98.0-98.2 82-105 17 132-162/67-83 93.0-115.0 97-98 PATIENT WEIGHT: Weight (lb): 250 Weight (oz): Weight (kg): 113.600 Membranes: Intact Uterine activity: Monitor: toco Frequency (description): none HEENT: normocephalic w/o injury, pupils equal, no scleral icterus, buffalo hump Cardiac: regular rate Lungs: unlabored breathing Neuro: Exam: alert, oriented x3, normal speech, CNII-XII grossly intact Abdomen: gravid (obese), soft, no abnormal tenderness, no guarding Uterus: soft, tender Lower extremities: Edema: trace Calf tenderness: negative Baby A: Baby A baseline: 150 bpm Baby A variability: moderate 6-25 bpm Baby A accelerations: 15 X 15 Baby A decelerations: variable Baby A FHR category: discontinous, looks cat 1 Findings/data: Laboratory Tests: 12/22 12/22 1439 1052 Chemistry POC Glucose (65 - 110 mg/dL) 196 H 120 H Diagnosis, Assessment Plan Diagnosis, Assessment Plan Free Text A P: 32 y/o [facility] 02-20-23 [facility] at 29 weeks transported from [place] 11-15-22 at 26.2 for sob, orthopnea, pulm edema. PNC w dr cristina clay 1) Pulm edema- echo at sending wnl, pt feels better since adm, had cxr on adm w min pulm edema. PLAN- cpm BNP <30, recheck also low 3.8] 2) Prematurity- s/p bmz x 2 (9-5,6) no mgso4 d/t pulm edema, no need for kiran consult at this time 3) U/S 9- gei Coates Cephalic CGA c/w dates UA-PI: 0.95 DVP: 2.7 Anatomy severely limited due to morbid obesity. PLAN- US today Dr Connor 4) FWB- nst bid 5) DVT prophy- lovenox 40 mg 6) Chr htn r/o YOVANY- bp at home 190/110, since adm bp 120-130/50-70 on labet 100 q8, procardia 30 xl bid. upcr 626, dropped to 241. nl ast/alt, plat. 24hu 554 mg . PLAN- still some labile BPs, continue to follow. 12-03 bp 130-140/60-80, no other s/s preE 7) IDDM- hgba1c 6.6 at sending 11-13, on lantus 60 bid, humalog 50B, 60L, 70D Consulted rohan, nutrition and DM counselor. fuctoisamine 11-18 198 12-03 cgm showed some improvement, now back up. probably diet related. i showed CGM to dr madrigal. he rec keeping insulin same over weekend. will have diab educ and flight crew ordnanceman see pt again soon. will review on 12-02 glu sig drop. pt asympt. lunch humalog held. PLAN- cpm, dr madrigal to see pt 12-03 9-20 min change in dexcon 7 readings. will incr insulin by 15%, to lantus 115/ 120, humalog B80, L92, D 102, fructosamine 9-18 pending 8) ADHD/depression- on seroquel, zoloft 9) sleep apnea--pulm consult, per dr crocker, pt refusing cpap d/t claustrophobia. o2 sats are reassuring 10) fatigue--TSH nl, iron studies show bordeline deficiency--will start iron and colace 11) Vulvar bump, vag odor and rash on abd. all asympt. no evidence of std. 11-26 wet mount neg for trich and bv, urine gc/chlam neg at 0655 RPT #:[id number] END OF REPORT [facility] 2022-12-22 07:08:00 [facility] OB Antepartum Prog Note REPORT#:[id number] REPORT STATUS: Signed REPORT INITIALIZATION DATE:12/22/22 TIME: 707 PATIENT: AMINTA NINO UNIT #: [id number] ROOM/BED: [facility]8 : 92 AGE: 32 SEX: F ATTEND: Jak Herrera MD ADM AUTHOR: Darron Santacruz MD REPT SERVICE DT/TIME: 12/22/22 07 * ALL edits or amendments must be made on the electronic/computer document * Subjective Subjective Patient reports: Patient reports: Yes no complaints, Yes normal movement, No abdominal pain, No vaginal bleeding, No leaking fluid, No contractions Objective VS: Last Documented: Result Date Time B/P Mean 101.0 12/22 1001 Pulse Ox 97 12/22 1001 B/P 135/78 12/22 1001 Temp 98.2 12/22 1001 Pulse 82 12/22 1001 Resp 17 12/22 1001 FiO2 21 12/21 2030 O2 Delivery Room air 12/21 2029 Vital Signs Date Temp Pulse Resp B/P B/P Mean Pulse Ox FiO2 12/21-12/22 97.9-98.2 82-100 15-17 128-168/63-96 88.0-126.0 97-100 21 PATIENT WEIGHT: Weight (lb): 250 Weight (oz): Weight (kg): 113.600 Membranes: Intact Abdomen: gravid (obese), soft, no abnormal tenderness, no guarding Lower extremities: Edema: trace Calf tenderness: negative Baby A: Baby A baseline: 150 bpm Baby A variability: moderate 6-25 bpm Baby A accelerations: 15 X 15 Baby A decelerations: variable Baby A FHR category: discontinous, looks cat 1 Findings/data: Laboratory Tests: 12/22 12/22 12/21 12/21 1052 0605 2108 1435 Chemistry POC Glucose (65 - 110 mg/dL) 120 H 116 H 168 H 138 H Diagnosis, Assessment Plan Diagnosis, Assessment Plan Free Text A P: 32 y/o [facility] 02-20[birth year]23 [facility] at 31 3/7 weeks transported from [place] at 26.2 for sob, orthopnea, pulm edema. PNC w dr cristina clay 1) IDDM- hgba1c 6.6 at sending 11-13, on lantus 60 bid, humalog 50B, 60L, 70D Consulted rohan, nutrition and DM counselor. fructosamine 11-18 198, 11/30 217, 200, current insulin dose lantus 132/138. humalog B92 L 106, D138 12-22 fbs 116, b 120. PLAN- cpm 12-21 doing fingersticks fbs 92, B 80 L 138. PLAN- cpm, cgm should be back on by dinner tomorrow 12-20 i spoke w rohan and reviewed cgm, bs very labile, cgm will run out tonight. mom cant bring new one until tue. PLAN- finger sticks for /12-17 glu very labile. pt seen by diab educ and flight crew ordnanceman. disc w rohan. PLAN- cpm, reeval 12-20 mon 12-16 occ glu low 67 lunchtime humalog held. disc w dr madrigal. rec cpm 12-13 cgm stable, remains above 200 most of the time, occ lows. pt thinks this is d/t diet. . i showed graph to dr madrigal, he rec incr by 15%. new dosing lantus 132/138. humalog B92 L 106, D138 12-10 cgm showed some improvement, but spikes after dinner . PLAN- incr humalog D to 120, fructosamine ordered for am. Pt seen w dr madrigal 12-02 glu sig drop. pt asympt. lunch humalog held. PLAN- cpm, dr madrigal to see pt 12-03 9-20 min change in dexcon 7 readings. will incr insulin by 15%, to lantus 115/ 120, humalog B80, L92, D 102, fructosamine 11-30 217 2) Prematurity- s/p bmz x 2 (-,6) no mgso4 d/t pulm edema, kiran felipe 3) U/S - blaise coates vertex, anterior placenta, MATHEUS 8.5 decreased, S/D 4.9 -5.3 increased EFW 1384 gms, 5.6 % low normalinterval growth interval gwoth, BPP 10/19, cervix long closed 9-24 KA, S:D 4.9-5.3, EFW 1084, 5.6%, AFT 9.5, BPP 8/8, cx long closed. 9-4 gei Coates Cephalic CGA c/w dates UA-PI: 0.95 DVP: 2.7 Anatomy severely limited due to morbid obesity. PLAN- next scan in 2 weeks (the patient is wanting q week) The pt would like a "natural childbirth," but I explained to her she will need to be flexible, high risk of . The pt also would like only to give breast milk to baby and nothing else--again, I d/w her this may depend on many factors including whether she delivers early--which she may need to. Sometimes premies need umbilical lines and do not latch well, but we generally do all we can to help the baby get mom's breast milk as much as possible. 4) FWB- nst bid--> per pt's request, 1 hr TID after meals 10-6 nst cat 1, occ sharp variable but overall reassuring. PLAN- cont nst q8h 5) DVT prophy- lovenox 40 mg, had d/w pt and mom regarding why this is important. Pt requests to ambulate some, and have okayed this. Pt may also be a little stir crazy and need a little change of atmosphere. 6) Chr htn r/o YOVANY- bp at home 190/110, since adm bp 120-130/50-70 on labet 200 q 8 , procardia 30 xl bid. upcr 626, dropped to 241. nl ast/alt, plat. 24hu 554 mg. PLAN- still some labile BPs, continue to follow. 10-11 bp 120-160/60-90, no other s/s preE. 7) ADHD/depression- stable on seroquel, zoloft 8) sleep apnea--pulm consult, per dr crocker, pt refusing cpap d/t claustrophobia. o2 sats are reassuring 9) fatigue--TSH nl, iron studies show bordeline deficiency, on iron and colace 10) Vulvar bump, vag odor and rash on abd. all asympt. no evidence of std. 9-15 wet mount neg for trich and bv, urine gc/chlam neg 11) pt requests to dc IV. I d/w her may need for BPmeds or diabetes meds, but she says we can stick her again if needed added Nifedipine (PO) protocol prn 12) Pulm edema, on adm- now resolved , echo at sending wnl, pt feels better since adm, had cxr on adm w min pulm edema. Pt seen and d/w dr jerez at 1232 RPT #:[id number] END OF REPORT [facility] 2022-12-21 07:15:00 [facility] OB Antepartum Prog Note REPORT#:[id number] REPORT STATUS: Signed REPORT INITIALIZATION DATE:12/21/22 TIME: 714 PATIENT: AMINTA NINO UNIT #: [id number] ROOM/BED: [address] : 92 AGE: 32 SEX: F ATTEND: Jak Herrera MD ADM AUTHOR: Darron Santacruz MD REPT SERVICE DT/TIME: 12/21/22714 * ALL edits or amendments must be made on the electronic/computer document * Subjective Subjective Patient reports: Patient reports: Yes no complaints, Yes normal movement, No abdominal pain, No vaginal bleeding, No leaking fluid, No contractions Comments: feels baby real low Objective VS: Last Documented: Result Date Time B/P Mean 94.0 12/21 1437 Pulse Ox 97 12/21 1437 B/P 131/69 12/21 1437 Temp 97.9 12/21 1437 Pulse 86 12/21 1437 Resp 16 12/21 143 O2 Delivery Room air 12/20 1100 FiO2 21 12/19 2030 Vital Signs Date Temp Pulse Resp B/P B/P Mean Pulse Ox FiO2 12/20-12/21 97.9 8-110 16 131-172/69-94 94.0-123.0 80-97 PATIENT WEIGHT: Weight (lb): 250 Weight (oz): Weight (kg): 113.600 Membranes: Intact Abdomen: gravid (obese), soft, no abnormal tenderness, no guarding Lower extremities: Edema: trace Calf tenderness: negative Baby A: Baby A baseline: 150 bpm Baby A variability: moderate 6-25 bpm Baby A accelerations: 15 X 15 Baby A decelerations: variable Baby A FHR category: discontinous, looks cat 1 Diagnosis, Assessment Plan Diagnosis, Assessment Plan Free Text A P: 32 y/o [facility] 02-[birth year]23 [facility] at 31 2/7 weeks transported from [place] at 26.2 for sob, orthopnea, pulm edema. PNC w dr cristina clay 1) Pulm edema- echo at sending wnl, pt feels better since adm, had cxr on adm w min pulm edema. PLAN- cpm BNP <30, recheck also low 3.8] 2) Prematurity- s/p bmz x 2 (9-5,6) no mgso4 d/t pulm edema, kiran consult ordered 3) U/S 10-8 blaise coates vertex, anterior placenta, MATHEUS 8.5 decreased, S/D 4.9 -5.3 increased EFW 1384 gms, 5.6 % low normalinterval growth interval gwoth, BPP 8/8, cervix long closed 9-24 KA, S:D 4.9-5.3, EFW 1084, 5.6%, AFT 9.5, BPP 8/8, cx long closed. 9-4 gei Coates Cephalic CGA c/w dates UA-PI: 0.95 DVP: 2.7 Anatomy severely limited due to morbid obesity. PLAN- next scan in 2 weeks (the patient is wanting q week) The pt would like a "natural childbirth," but I explained to her she will need to be flexible, high risk of . The pt also would like only to give breast milk to baby and nothing else--again, I d/w her this may depend on many factors including whether she delivers early--which she may need to. Sometimes premies need umbilical lines and do not latch well, but we generally do all we can to help the baby get mom's breast milk as much as possible. 4) FWB- nst bid--> per pt's request, 1 hr TID after meals 10-6 nst cat 1, occ sharp variable but overall reassuring. PLAN- cont nst q8h 5) DVT prophy- lovenox 40 mg, had d/w pt and mom regarding why this is important. Pt requests to ambulate some, and have okayed this. Pt may also be a little stir crazy and need a little change of atmosphere. 6) Chr htn r/o YOVANY- bp at home 190/110, since adm bp 120-130/50-70 on labet 200 q 8 , procardia 30 xl bid. upcr 626, dropped to 241. nl ast/alt, plat. 24hu 554 mg. PLAN- still some labile BPs, continue to follow. 10- bp 120-130/60-70, no other s/s preE. 7) IDDM- hgba1c 6.6 at sending 11-13, on lantus 60 bid, humalog 50B, 60L, 70D Consulted rohan, nutrition and DM counselor. fructosamine 11-18 198, 11/30 217, 10 - pending. on lantus 115/120, humalog B80, L92, D 120 10- doing fingersticks fbs 92, B 80 L 138. PLAN- cpm, cgm should be back on by dinner tomorrow 12-20 i spoke kushal madrigal and reviewed cgm, bs very labile, cgm will run out tonight. mom cant bring new one until tue. PLAN- finger sticks for /tue- glu very labile. pt seen by diab educ and flight crew ordnanceman. disc w rohan. PLAN- cpm, reeval 12-20 mon 12-16 occ glu low 67 lunchtime humalog held. disc w dr madrigal. rec cpm 12-13 cgm stable, remains above 200 most of the time, occ lows. pt thinks this is d/t diet. fructo 12-10 200. i showed graph to dr madrigal, he rec incr by 15%. new dosing lantus 132/138. humalog B92 L 106, D138 12-10 cgm showed some improvement, but spikes after dinner . PLAN- incr humalog D to 120, fructosamine ordered for am. Pt seen w dr madrigal 12-02 glu sig drop. pt asympt. lunch humalog held. PLAN- cpm, dr madrigal to see pt 12-03 9-20 min change in dexcon 7 readings. will incr insulin by 15%, to lantus 115/ 120, humalog B80, L92, D 102, fructosamine 9-19 217 8) ADHD/depression- stable on seroquel, zoloft 9) sleep apnea--pulm consult, per dr crocker, pt refusing cpap d/t claustrophobia. o2 sats are reassuring 10) fatigue--TSH nl, iron studies show bordeline deficiency, on iron and colace 11) Vulvar bump, vag odor and rash on abd. all asympt. no evidence of std. 9-15 wet mount neg for trich and bv, urine gc/chlam neg 12) pt requests to dc IV. I d/w her may need for BPmeds or diabetes meds, but she says we can stick her again if needed added Nifedipine (PO) protocol prn Pt seen and d/w dr josé at 1518 RPT #:[id number] END OF REPORT [facility] 2022-12-20 07:39:00 [facility] ([facility] OB Antepartum Prog Note REPORT#:[id number] REPORT STATUS: Signed REPORT INITIALIZATION DATE:12/20/22 TIME: 738 PATIENT: AMINTA NINO UNIT #: [id number] ROOM/BED: [address] : 92 AGE: 32 SEX: F ATTEND: Jak Herrera MD ADM AUTHOR: Darron Santacruz MD REPT SERVICE DT/TIME: 12/20/22 07 * ALL edits or amendments must be made on the electronic/computer document * Subjective Subjective Patient reports: Patient reports: Yes no complaints, Yes normal movement, No abdominal pain, No vaginal bleeding, No leaking fluid, No contractions Objective VS: Last Documented: Result Date Time B/P Mean 117.0 12/20 1725 B/P 151/94 12/20 172 Pulse 110 12/20 1726 Resp 16 12/20 172 Pulse Ox 98 12/20 1321 O2 Delivery Room air 12/20 1100 FiO2 21 12/19 2030 Temp 98.2 12/19 1239 Vital Signs Date Temp Pulse Resp B/P B/P Mean Pulse Ox FiO2 12/19-12/20 82-110 16-18 132-172/65-94 94.0-123.0 97-99 21 PATIENT WEIGHT: Weight (lb): 250 Weight (oz): Weight (kg): 113.600 Membranes: Intact Abdomen: gravid (obese), soft, no abnormal tenderness, no guarding Lower extremities: Edema: trace Calf tenderness: negative Baby A: Baby A baseline: 150 bpm Baby A variability: moderate 6-25 bpm Baby A accelerations: 15 X 15 Baby A decelerations: variable Baby A FHR category: discontinous, looks cat 1 Diagnosis, Assessment Plan Diagnosis, Assessment Plan Free Text A P: 32 y/o [facility] 02-20-23 [facility] at 31 1/7 weeks transported from [place] at 26.2 for sob, orthopnea, pulm edema. PNC w dr cristina clay 1) Pulm edema- echo at sending wnl, pt feels better since adm, had cxr on adm w min pulm edema. PLAN- cpm BNP <30, recheck also low 3.8] 2) Prematurity- s/p bmz x 2 (9-5,6) no mgso4 d/t pulm edema, kiran consult ordered 3) U/S 10-8 blaise coates vertex, anterior placenta, MATHEUS 8.5 decreased, S/D 4.9 -5.3 increased EFW 1384 gms, 5.6 % low normalinterval growth interval gwoth, BPP 8/8, cervix long closed 9-24 KA, S:D 4.9-5.3, EFW 1084, 5.6%, AFT 9.5, BPP 8/8, cx long closed. 9-4 gei Coates Cephalic CGA c/w dates UA-PI: 0.95 DVP: 2.7 Anatomy severely limited due to morbid obesity. PLAN- next scan in 2 weeks (the patient is wanting q week) The pt would like a "natural childbirth," but I explained to her she will need to be flexible, high risk of . The pt also would like only to give breast milk to baby and nothing else--again, I d/w her this may depend on many factors including whether she delivers early--which she may need to. Sometimes premies need umbilical lines and do not latch well, but we generally do all we can to help the baby get mom's breast milk as much as possible. 4) FWB- nst bid--> per pt's request, 1 hr TID after meals 10-6 nst cat 1, occ sharp variable but overall reassuring. PLAN- cont nst q8h 5) DVT prophy- lovenox 40 mg, had d/w pt and mom regarding why this is important. Pt requests to ambulate some, and have okayed this. Pt may also be a little stir crazy and need a little change of atmosphere. 6) Chr htn r/o YOVANY- bp at home 190/110, since adm bp 120-130/50-70 on labet 200 q 8 , procardia 30 xl bid. upcr 626, dropped to 241. nl ast/alt, plat. 24hu 554 mg. PLAN- still some labile BPs, continue to follow. 10- bp 120-130/60-70, no other s/s preE. 7) IDDM- hgba1c 6.6 at sending 11-13, on lantus 60 bid, humalog 50B, 60L, 70D Consulted rohan, nutrition and DM counselor. fructosamine 11-18 198, 11/30 217, 10 -2 pending. on lantus 115/120, humalog B80, L92, D 120 12-20 i spoke w rohan and reviewed cgm, bs very labile, cgm will run out tonight. mom cant bring new one until tue. PLAN- finger sticks for /tue- glu very labile. pt seen by diab educ and flight crew ordnanceman. disc w rohan. PLAN- cpm, reeval 12-20 mon - occ glu low 67 lunchtime humalog held. disc w dr madrigal. rec cpm 12-13 cgm stable, remains above 200 most of the time, occ lows. pt thinks this is d/t diet. fructo 12-10 200. i showed graph to dr madrigal, he rec incr by 15%. new dosing lantus 132/138. humalog B92 L 106, D138 9-29 cgm showed some improvement, but spikes after dinner . PLAN- incr humalog D to 120, fructosamine ordered for am. Pt seen w dr madrigal 12-02 glu sig drop. pt asympt. lunch humalog held. PLAN- cpm, dr madrigal to see pt 12-03 9-20 min change in dexcon 7 readings. will incr insulin by 15%, to lantus 115/ 120, humalog B80, L92, D 102, fructosamine 9-19 217 8) ADHD/depression- stable on seroquel, zoloft 9) sleep apnea--pulm consult, per dr crocker, pt refusing cpap d/t claustrophobia. o2 sats are reassuring 10) fatigue--TSH nl, iron studies show bordeline deficiency, on iron and colace 11) Vulvar bump, vag odor and rash on abd. all asympt. no evidence of std. 9-15 wet mount neg for trich and bv, urine gc/chlam neg 12) pt requests to dc IV. I d/w her may need for BPmeds or diabetes meds, but she says we can stick her again if needed added Nifedipine (PO) protocol prn Pt seen and d/w dr ochoa at 1848 RPT #:[id number] END OF REPORT [facility] 2022-12-19 11:50:00 [facility] Consultation Note REPORT#:[id number] REPORT STATUS: Signed REPORT INITIALIZATION DATE:12/19/22 TIME: 115 PATIENT: AMINTA NINO UNIT #: [id number] ROOM/BED: [address] : 92 AGE: 32 SEX: F ATTEND: Jak Herrera MD ADM AUTHOR: Shabnam Jerez MD REPT SERVICE DT/TIME: 12/19/22 1150 * ALL edits or amendments must be made on the electronic/computer document * History of Present Illness HPI Reason for consult: ultrasound Chief complaint: Transferred for [facility] History Past History Allergies: Coded Allergies: latex (SWELLING 11/15/22) Objective Physical Exam VS/I O: Vital Signs: Date Time Temp Pulse Resp B/P B/P Pulse O2 O2 Flow FiO2 Mean Ox Delivery Rate 12/19 952 96.0 12/19 952 83 130/74 98 12/19 0641 90.0 12/19 0641 85 131/63 12/19 0154 105.0 12/19 0154 88 146/77 12/18 2328 80 98 21 12/18 2240 101.0 12/18 224 88 141/76 12/18 2049 98 Room air 21 12/18 1555 98.0 12/18 1555 86 143/69 Last Documented: Result Date Time B/P Mean 96.0 12/19 952 Pulse Ox 98 12/19 952 B/P 130/74 12/19 952 Pulse 83 12/19 952 FiO2 21 12/18 232 O2 Delivery Room air 12/18 2049 Temp 97.9 12/18 1148 Resp 18 12/18 1148 PATIENT WEIGHT: Weight (lb): 250 Weight (oz): Weight (kg): 113.600 HEENT: normocephalic Cardiovascular: regular rate and rhythm Respiratory: clear to auscultation Abdomen: non-tender, soft Extremities: edema (trace) Neuro/CYTOGENETICS TECHNOLOGIST: alert, oriented x 3, normal speech Skin: dry, intact, normal color, normal temperature, normal turgor Psychiatry: not homicidal Results Radiology data: ultrasound indications: 31 weeks GA FGR coates vertex anterior placenta MATHEUS 8.5 decreased S/D 4.9-5.3 increased EFW 1384 gms, 5.6 % low normalinterval growth interval gwoth BPP 8/8 cervix long closed Diagnosis, Assessment Plan Diagnosis, Assessment Plan Free Text A P: A/P 1- 2- FGR 3-PIH w/o features of severity, stabilized 4-Class B DM; 5-Severe obesity / Excessive MWG 6- BMI 48 continue current care at 1444 RPT #:[id number] END OF REPORT [facility] 2022-12-19 09:47:00 [phone] [facility] [address] [place], [place] [address] PATIENT NAME: AMINTA NINO ADMIT DATE: 11/15/22 ACCOUNT NO: [id number] ROOM NO: F.5048 AGE: 32 SEX: F ADMITTING PHYSICIAN: Jak Herrera MD ATTENDING PHYSICIAN: Jak Herrera MD DATE: 12/19/2022 ATTENDING PHYSICIAN: [facility]. DATE OF EVALUATION: On 12/19/2022 at approximately 9:40 a.m. SUBJECTIVE: The patient is a 32-year-old at 31 weeks, last noted to be vertex with history of preeclampsia without severity, insulin-dependent diabetes, bipolar and ADHD. She currently voices no new complaints and states good movement. OBJECTIVE: VITAL SIGNS: Stable. She is afebrile. Her last temperature 97.9, pulse 85, respiratory rate 18, blood pressure 131/63. ABDOMEN: Soft and nontender. Strip shows moderate xzfj-cr-xjsa variability, positive accelerations, no regular contractions. PLAN: We will continue current care. Dictated By: Jose Roberto Webber MD Date Dictated: 12/19/2022 09:47:37 Date Transcribed: 12/19/2022 10:14:47 LOAN PROCESSOR/VSR Receipt ID: [id number] Authenticated by Jose Roberto Webber MD On 12/20/2022 05:27:50 PM at 0527 PATIENT NAME: AMINTA NINO [facility] 2022-12-18 07:04:00 [id number] [facility] [address] [address] PATIENT NAME: AMINTA NINO ADMIT DATE: 11/15/22 ACCOUNT NO: [id number] ROOM NO: F.5048 AGE: 32 SEX: F ADMITTING PHYSICIAN: Jak Herrera MD ATTENDING PHYSICIAN: Jak Herrera MD DATE: 12/18/2022 ANTEPARTUM PROGRESS NOTE ATTENDING PHYSICIAN: [facility]. TIME OF EVALUATION: Approximately 6:15 a.m. SUBJECTIVE: The patient is a 32-year-old at 30 and 6/7th weeks, last noted to be vertex, with preeclampsia, not severe at this point in time; insulin-dependent diabetes, history of bipolar, and history of ADHD. She currently voices no new complaints and states good movement. OBJECTIVE: VITAL SIGNS: Stable. She is afebrile. Her last temperature 98.2, pulse 91, respiratory rate 16, and blood pressure 139/73. She denies any headache, blurred vision, scotomata, or epigastric pain. Her strip shows moderate wxoa-ni-pnki variability, positive accels, no regular contractions. PLAN: We will continue current care. Dictated By: Jose Roberto Webber MD Date Dictated: 12/18/2022 07:04:30 Date Transcribed: 12/18/2022 07:19:23 LOAN PROCESSOR/ADDY Receipt ID: [id number] Authenticated by Jose Roberto Webber MD On 12/20/2022 05:27:50 PM at 0527 PATIENT NAME: AMINTA NINO [facility] 2022-12-17 06:58:00 [facility] ([facility]) OB Antepartum Prog Note REPORT#:[id number] REPORT STATUS: Signed REPORT INITIALIZATION DATE:12/17/22 TIME: 657 PATIENT: AMINTA NINO UNIT #: [id number] ROOM/BED: [address] : 92 AGE: 32 SEX: F ATTEND: Jak Herrera MD ADM AUTHOR: Darron Santacruz MD REPT SERVICE DT/TIME: 12/17/2258 * ALL edits or amendments must be made on the electronic/computer document * Subjective Subjective Patient reports: Patient reports: Yes no complaints, Yes normal movement, No abdominal pain, No vaginal bleeding, No leaking fluid, No contractions Objective VS: Last Documented: Result Date Time B/P Mean 100.0 12/17 122 Pulse Ox 100 12/17 1226 B/P 139/75 12/17 1226 Temp 98.3 12/17 122 Pulse 82 12/17 122 Resp 16 10/06 1227 Vital Signs Date Temp Pulse Resp B/P B/P Mean Pulse Ox FiO2 12/16-12/17 98.1-98.4 80-88 16-17 128-139/62-75 89.0-100.0 98-100 PATIENT WEIGHT: Weight (lb): 250 Weight (oz): Weight (kg): 113.600 Membranes: Intact Abdomen: gravid (obese), soft, no abnormal tenderness, no guarding Lower extremities: Edema: trace Calf tenderness: negative Baby A: Baby A baseline: 150 bpm Baby A variability: moderate 6-25 bpm Baby A accelerations: 15 X 15 Baby A decelerations: variable Baby A FHR category: discontinous, looks cat 1 Diagnosis, Assessment Plan Diagnosis, Assessment Plan Free Text A P: 32 y/o [facility] 02-20-23 [facility] at 30 5/7 weeks transported from [place] at 26.2 for sob, orthopnea, pulm edema. PNC w dr cristina clay 1) Pulm edema- echo at sending wnl, pt feels better since adm, had cxr on adm w min pulm edema. PLAN- cpm BNP <30, recheck also low 3.8] 2) Prematurity- s/p bmz x 2 (9-5,6) no mgso4 d/t pulm edema, kiran consult ordered 3) U/S 9- KA, S:D 4.9-5.3, EFW 1084, 5.6%, AFT 9.5, BPP 8/8, cx long closed. PLAN rescan soon 9-4 gei Coates Cephalic CGA c/w dates UA-PI: 0.95 DVP: 2.7 Anatomy severely limited due to morbid obesity. PLAN- next scan in 2 weeks (the patient is wanting q week) The pt would like a "natural childbirth," but I explained to her she will need to be flexible, high risk of . The pt also would like only to give breast milk to baby and nothing else--again, I d/w her this may depend on many factors including whether she delivers early--which she may need to. Sometimes premies need umbilical lines and do not latch well, but we generally do all we can to help the baby get mom's breast milk as much as possible. 4) FWB- nst bid--> per pt's request, 1 hr TID after meals 10-6 nst cat 1, occ sharp variable but overall reassuring. PLAN- cont nst q8h 5) DVT prophy- lovenox 40 mg, had d/w pt and mom regarding why this is important. Pt requests to ambulate some, and have okayed this. Pt may also be a little stir crazy and need a little change of atmosphere. 6) Chr htn r/o YOVANY- bp at home 190/110, since adm bp 120-130/50-70 on labet 200 q 8 , procardia 30 xl bid. upcr 626, dropped to 241. nl ast/alt, plat. 24hu 554 mg. PLAN- still some labile BPs, continue to follow. 10-5 bp 120-130/60-70, no other s/s preE. 7) IDDM- hgba1c 6.6 at sending -, on lantus 60 bid, humalog 50B, 60L, 70D Consulted rohan, nutrition and DM counselor. fructosamine 11-18 198, 11/30 217, 10 -2 pending. on lantus 115/120, humalog B80, L92, D 120 10-6 glu very labile. pt seen by diab educ and flight crew ordnanceman. disc w rohan. PLAN- cpm, reeval - mon 10-5 occ glu low 67 lunchtime humalog held. disc w dr madrigal. rec cpm 10-2 cgm stable, remains above 200 most of the time, occ lows. pt thinks this is d/t diet. fructo 12-10 200. i showed graph to dr madrigal, he rec incr by 15%. new dosing lantus 132/138. humalog B92 L 106, D138 12-10 cgm showed some improvement, but spikes after dinner . PLAN- incr humalog D to 120, fructosamine ordered for am. Pt seen w dr madrigal 12-02 glu sig drop. pt asympt. lunch humalog held. PLAN- cpm, dr madrigal to see pt 12-03 9-20 min change in dexcon 7 readings. will incr insulin by 15%, to lantus 115/ 120, humalog B80, L92, D 102, fructosamine 9-19 217 8) ADHD/depression- stable on seroquel, zoloft 9) sleep apnea--pulm consult, per dr crocker, pt refusing cpap d/t claustrophobia. o2 sats are reassuring 10) fatigue--TSH nl, iron studies show bordeline deficiency, on iron and colace 11) Vulvar bump, vag odor and rash on abd. all asympt. no evidence of std. 9-15 wet mount neg for trich and bv, urine gc/chlam neg 12) pt requests to dc IV. I d/w her may need for BPmeds or diabetes meds, but she says we can stick her again if needed added Nifedipine (PO) protocol prn Pt seen and d/w dr jerez at 1309 RPT #:[id number] END OF REPORT [facility] 2022-12-16 06:53:00 [facility] ([facility]) OB Antepartum Prog Note REPORT#:[id number] REPORT STATUS: Signed REPORT INITIALIZATION DATE:12/16/22 TIME: 652 PATIENT: AMINTA NINO UNIT #: [id number] ROOM/BED: [address] : 92 AGE: 32 SEX: F ATTEND: Jak Herrera MD ADM AUTHOR: Darron Santacruz MD REPT SERVICE DT/TIME: 12/16/22 0653 * ALL edits or amendments must be made on the electronic/computer document * Subjective Subjective Patient reports: Patient reports: Yes no complaints, Yes normal movement, No abdominal pain, No vaginal bleeding, No leaking fluid, No contractions Objective VS: Last Documented: Result Date Time B/P Mean 89.0 12/16 1714 Pulse Ox 99 12/16 171 B/P 132/62 12/16 171 Temp 98.1 12/16 1714 Pulse 88 12/16 171 Resp 16 12/16 1204 Vital Signs Date Temp Pulse Resp B/P B/P Mean Pulse Ox FiO2 12/15-12/16 97.7-98.1 80-93 16-18 132-159/62-87 89.0-115.0 98-99 PATIENT WEIGHT: Weight (lb): 250 Weight (oz): Weight (kg): 113.600 Membranes: Intact Abdomen: gravid (obese), soft, no abnormal tenderness, no guarding Lower extremities: Edema: trace Calf tenderness: negative Baby A: Baby A baseline: 150 bpm Baby A variability: moderate 6-25 bpm Baby A accelerations: 15 X 15 Baby A decelerations: variable Baby A FHR category: discontinous, looks cat 1 Diagnosis, Assessment Plan Diagnosis, Assessment Plan Free Text A P: 32 y/o [facility] 02-20-23 [facility] at 30 4/7 weeks transported from [place] at 26.2 for sob, orthopnea, pulm edema. PNC w dr cristina clay 1) Pulm edema- echo at sending wnl, pt feels better since adm, had cxr on adm w min pulm edema. PLAN- cpm BNP <30, recheck also low 3.8] 2) Prematurity- s/p bmz x 2 (9-5,6) no mgso4 d/t pulm edema, kiran consult ordered 3) U/S 9-24 KA, S:D 4.9-5.3, EFW 1084, 5.6%, AFT 9.5, BPP 8/8, cx long closed. PLAN rescan soon 9-4 gei Coates Cephalic CGA c/w dates UA-PI: 0.95 DVP: 2.7 Anatomy severely limited due to morbid obesity. PLAN- next scan in 2 weeks (the patient is wanting q week) The pt would like a "natural childbirth," but I explained to her she will need to be flexible, high risk of . The pt also would like only to give breast milk to baby and nothing else--again, I d/w her this may depend on many factors including whether she delivers early--which she may need to. Sometimes premies need umbilical lines and do not latch well, but we generally do all we can to help the baby get mom's breast milk as much as possible. 4) FWB- nst bid--> per pt's request, 1 hr TID after meals 10-5 nst cat 1, occ sharp variable but overall reassuring. PLAN- cont nst q8h 5) DVT prophy- lovenox 40 mg, had d/w pt and mom regarding why this is important. Pt requests to ambulate some, and have okayed this. Pt may also be a little stir crazy and need a little change of atmosphere. 6) Chr htn r/o YOVANY- bp at home 190/110, since adm bp 120-130/50-70 on labet 200 q 8 , procardia 30 xl bid. upcr 626, dropped to 241. nl ast/alt, plat. 24hu 554 mg. PLAN- still some labile BPs, continue to follow. 10-5 bp 130/60-70, no other s/s preE. 7) IDDM- hgba1c 6.6 at sending 9-, on lantus 60 bid, humalog 50B, 60L, 70D Consulted rohan, nutrition and DM counselor. fructosamine 11-18 198, 11/30 217, 10 -2 pending. on lantus 115/120, humalog B80, L92, D 120 10-5 occ glu low 67 lunchtime humalog held. disc w dr madrigal. rec cpm 10-2 cgm stable, remains above 200 most of the time, occ lows. pt thinks this is d/t diet. fructo 12-10 200. i showed graph to dr madrigal, he rec incr by 15%. new dosing lantus 132/138. humalog B92 L 106, D138 9- cgm showed some improvement, but spikes after dinner . PLAN- incr humalog D to 120, fructosamine ordered for am. Pt seen w dr madrigal 9- glu sig drop. pt asympt. lunch humalog held. PLAN- cpm, dr madrigal to see pt 12-03 9-20 min change in dexcon 7 readings. will incr insulin by 15%, to lantus 115/ 120, humalog B80, L92, D 102, fructosamine 11-30 217 8) ADHD/depression- stable on seroquel, zoloft 9) sleep apnea--pulm consult, per dr crocker, pt refusing cpap d/t claustrophobia. o2 sats are reassuring 10) fatigue--TSH nl, iron studies show bordeline deficiency, on iron and colace 11) Vulvar bump, vag odor and rash on abd. all asympt. no evidence of std. 9-15 wet mount neg for trich and bv, urine gc/chlam neg 12) pt requests to dc IV. I d/w her may need for BPmeds or diabetes meds, but she says we can stick her again if needed added Nifedipine (PO) protocol prn Pt seen and d/w dr josé at 1812 RPT #:[id number] END OF REPORT [facility] 2022-12-15 06:49:00 [facility] ([facility] OB Antepartum Prog Note REPORT#:[id number] REPORT STATUS: Signed REPORT INITIALIZATION DATE:12/15/22 TIME: 648 PATIENT: AMINTA NINO UNIT #: [id number] ROOM/BED: [address] : 92 AGE: 32 SEX: F ATTEND: Jak Herrera MD ADM AUTHOR: Darron Santacruz MD REPT SERVICE DT/TIME: 12/15/22 0649 * ALL edits or amendments must be made on the electronic/computer document * Subjective Subjective Patient reports: Patient reports: Yes no complaints, Yes normal movement, No abdominal pain, No vaginal bleeding, No leaking fluid, No contractions Comments: was feeling "shaky" but not assoc w hypoglycemia? Objective VS: Last Documented: Result Date Time B/P Mean 97.0 12/15 1312 Pulse Ox 98 12/15 131 B/P 133/74 12/15 131 Temp 97.9 12/15 131 Pulse 86 12/15 1312 Resp 16 12/15 131 Vital Signs Date Temp Pulse Resp B/P B/P Mean Pulse Ox FiO2 12/14-12/15 97.9 82-100 15-16 130-139/68-82 95.0-105.0 97-98 PATIENT WEIGHT: Weight (lb): 250 Weight (oz): Weight (kg): 113.600 Membranes: Intact Abdomen: gravid (obese), soft, no abnormal tenderness, no guarding Lower extremities: Edema: trace Calf tenderness: negative Baby A: Baby A baseline: 150 bpm Baby A variability: moderate 6-25 bpm Baby A accelerations: 15 X 15 Baby A decelerations: variable Baby A FHR category: discontinous, looks cat 1 Diagnosis, Assessment Plan Diagnosis, Assessment Plan Free Text A P: 32 y/o [facility] 02-20-23 [facility] at 30 3/7 weeks transported from [place] at 26.2 for sob, orthopnea, pulm edema. PNC w dr cristina clay 1) Pulm edema- echo at sending wnl, pt feels better since adm, had cxr on adm w min pulm edema. PLAN- cpm BNP <30, recheck also low 3.8] 2) Prematurity- s/p bmz x 2 (-,6) no mgso4 d/t pulm edema, kiran consult ordered 3) U/S 9- KA, S:D 4.9-5.3, EFW 1084, 5.6%, AFT 9.5, BPP 8/8, cx long closed. PLAN rescan soon - gei Coates Cephalic CGA c/w dates UA-PI: 0.95 DVP: 2.7 Anatomy severely limited due to morbid obesity. PLAN- next scan in 2 weeks (the patient is wanting q week) The pt would like a "natural childbirth," but I explained to her she will need to be flexible, high risk of . The pt also would like only to give breast milk to baby and nothing else--again, I d/w her this may depend on many factors including whether she delivers early--which she may need to. Sometimes premies need umbilical lines and do not latch well, but we generally do all we can to help the baby get mom's breast milk as much as possible. 4) FWB- nst bid--> per pt's request, 1 hr TID after meals 10-4 nst cat 1, occ sharp variable but overall reassuring. PLAN- cont nst q8h 5) DVT prophy- lovenox 40 mg, had d/w pt and mom regarding why this is important. Pt requests to ambulate some, and have okayed this. Pt may also be a little stir crazy and need a little change of atmosphere. 6) Chr htn r/o YOVANY- bp at home 190/110, since adm bp 120-130/50-70 on labet 200 q 8 , procardia 30 xl bid. upcr 626, dropped to 241. nl ast/alt, plat. 24hu 554 mg. PLAN- still some labile BPs, continue to follow. 10-4 bp 130/60-70, no other s/s preE. 7) IDDM- hgba1c 6.6 at sending 9-2, on lantus 60 bid, humalog 50B, 60L, 70D Consulted rohan, nutrition and DM counselor. fructosamine 11-18 198, 11/30 217, 10 - pending. on lantus 115/120, humalog B80, L92, D 120 10-2 cgm stable, remains above 200 most of the time, occ lows. pt thinks this is d/t diet. fructo 12-10 200. i showed graph to dr madrigal, he rec incr by 15%. new dosing lantus 132/138. humalog B92 L 106, D138 - cgm showed some improvement, but spikes after dinner . PLAN- incr humalog D to 120, fructosamine ordered for am. Pt seen w dr madrigal 9 glu sig drop. pt asympt. lunch humalog held. PLAN- cpm, dr madrigal to see pt 12-03 9-20 min change in dexcon 7 readings. will incr insulin by 15%, to lantus 115/ 120, humalog B80, L92, D 102, fructosamine 11-30 217 8) ADHD/depression- stable on seroquel, zoloft 9) sleep apnea--pulm consult, per dr crocker, pt refusing cpap d/t claustrophobia. o2 sats are reassuring 10) fatigue--TSH nl, iron studies show bordeline deficiency, on iron and colace 11) Vulvar bump, vag odor and rash on abd. all asympt. no evidence of std. 9-15 wet mount neg for trich and bv, urine gc/chlam neg 12) pt requests to dc IV. I d/w her may need for BPmeds or diabetes meds, but she says we can stick her again if needed added Nifedipine (PO) protocol prn Pt seen and d/w dr jerez at 1610 RPT #:[id number] END OF REPORT [facility] [facility] 2022-12-14 06:59:00 [facility] ([facility] OB Antepartum Prog Note REPORT#:[id number] REPORT STATUS: Signed REPORT INITIALIZATION DATE:12/14/22 TIME: 658 PATIENT: AMINTA NINO UNIT #: [id number] ROOM/BED: [address] : 92 AGE: 32 SEX: F ATTEND: Jak Herrera MD ADM AUTHOR: Darron Santacruz MD REPT SERVICE DT/TIME: 12/14/22 0659 * ALL edits or amendments must be made on the electronic/computer document * Subjective Subjective Patient reports: Patient reports: Yes no complaints, Yes normal movement, No abdominal pain, No vaginal bleeding, No leaking fluid, No contractions Comments: wants u/s to see if mom can go home Objective VS: Last Documented: Result Date Time B/P Mean 109.0 12/14 09 B/P 141/86 12/14 09 Pulse 88 12/14 09 Temp 98.0 12/13 1835 Resp 18 12/13 1835 Pulse Ox 81 12/13 1517 Vital Signs Date Temp Pulse Resp B/P B/P Mean Pulse Ox FiO2 12/13-12/14 98.0 82-156 18 120-179/57-98 82.0-125.0 81-96 PATIENT WEIGHT: Weight (lb): 250 Weight (oz): Weight (kg): 113.600 Membranes: Intact Abdomen: gravid (obese), soft, no abnormal tenderness, no guarding Lower extremities: Edema: trace Calf tenderness: negative Baby A: Baby A baseline: 150 bpm Baby A variability: moderate 6-25 bpm Baby A accelerations: 15 X 15 Baby A decelerations: variable Baby A FHR category: discontinous, looks cat 1 Findings/data: Microbiology: Date/Time Procedure - Status Source Growth 12/14 1919 MRSA Screen - ORD NASAL Diagnosis, Assessment Plan Diagnosis, Assessment Plan Free Text A P: 32 y/o [facility] 02-20-23 [facility] at 30 2/7 weeks transported from [place] at 26.2 for sob, orthopnea, pulm edema. PNC w dr cristina clay 1) Pulm edema- echo at sending wnl, pt feels better since adm, had cxr on adm w min pulm edema. PLAN- cpm BNP <30, recheck also low 3.8] 2) Prematurity- s/p bmz x 2 (-,6) no mgso4 d/t pulm edema, kiran consult ordered 3) U/S - KA, S:D 4.9-5.3, EFW 1084, 5.6%, AFT 9.5, BPP 8/8, cx long closed. PLAN rescan soon 11-15 gei Coates Cephalic CGA c/w dates UA-PI: 0.95 DVP: 2.7 Anatomy severely limited due to morbid obesity. PLAN- next scan in 2 weeks (the patient is wanting q week) The pt would like a "natural childbirth," but I explained to her she will need to be flexible, high risk of . The pt also would like only to give breast milk to baby and nothing else--again, I d/w her this may depend on many factors including whether she delivers early--which she may need to. Sometimes premies need umbilical lines and do not latch well, but we generally do all we can to help the baby get mom's breast milk as much as possible. 4) FWB- nst bid--> per pt's request, 1 hr TID after meals 10-3 nst cat 1, occ sharp variable but overall reassuring. PLAN- cont nst q8h 5) DVT prophy- lovenox 40 mg, had d/w pt and mom regarding why this is important. Pt requests to ambulate some, and have okayed this. Pt may also be a little stir crazy and need a little change of atmosphere. 6) Chr htn r/o YOVANY- bp at home 190/110, since adm bp 120-130/50-70 on labet 200 bid , procardia 30 xl bid. upcr 626, dropped to 241. nl ast/alt, plat. 24hu 554 mg. PLAN- still some labile BPs, continue to follow. 10-3 bp 120-140/60-80, high 164/98, no other s/s preE. PLAN- incr labet to 200 q8 7) IDDM- hgba1c 6.6 at sending 9-, on lantus 60 bid, humalog 50B, 60L, 70D Consulted rohan, nutrition and DM counselor. fructosamine 11-18 198, 11/30 217, 10 -2 pending. on lantus 115/120, humalog B80, L92, D 120 10-2 cgm stable, remains above 200 most of the time, occ lows. pt thinks this is d/t diet. fructo 12-10 200. i showed graph to dr madrigal, he rec incr by 15%. new dosing lantus 132/138. humalog B92 L 106, D138 12-10 cgm showed some improvement, but spikes after dinner . PLAN- incr humalog D to 120, fructosamine ordered for am. Pt seen w dr madrigal 9 glu sig drop. pt asympt. lunch humalog held. PLAN- cpm, dr madrigal to see pt 12-03 9-20 min change in dexcon 7 readings. will incr insulin by 15%, to lantus 115/ 120, humalog B80, L92, D 102, fructosamine 11-30 217 8) ADHD/depression- stable on seroquel, zoloft 9) sleep apnea--pulm consult, per dr crocker, pt refusing cpap d/t claustrophobia. o2 sats are reassuring 10) fatigue--TSH nl, iron studies show bordeline deficiency, on iron and colace 11) Vulvar bump, vag odor and rash on abd. all asympt. no evidence of std. 9-15 wet mount neg for trich and bv, urine gc/chlam neg 12) pt requests to dc IV. I d/w her may need for BPmeds or diabetes meds, but she says we can stick her again if needed added Nifedipine (PO) protocol prn Pt seen and d/w dr josé at 1303 RPT #:[id number] END OF REPORT [facility] 2022-12-13 19:28:00 [facility] ([facility]) Clinical Note REPORT#:[id number] REPORT STATUS: Signed REPORT INITIALIZATION DATE:12/13/22 TIME: 1927 PATIENT: AMINTA NINO UNIT #: [id number] ROOM/BED: [address] : 92 AGE: 32 SEX: F ATTEND: Jak Herrera MD ADM AUTHOR: Haley Saleh MD REPT SERVICE DT/TIME: 12/13/221927 * ALL edits or amendments must be made on the electronic/computer document * Clinical Note Note: MARKETING WRITER Hospitalist coverage overnight: Notified by RN of BPs with systolics of 160-170s. Pt given 10 mg of po nifedipine. Repeat BPs wnl. Dr Saleh at 1930 RPT #:[id number] END OF REPORT [facility] 2022-12-13 07:57:00 [facility] ([facility]) OB Antepartum Prog Note REPORT#:[id number] REPORT STATUS: Signed REPORT INITIALIZATION DATE:12/13/22 TIME: 756 PATIENT: AMINTA NINO UNIT #: [id number] ROOM/BED: [address] : 92 AGE: 32 SEX: F ATTEND: Jak Herrera MD ADM AUTHOR: Darron Santacruz MD REPT SERVICE DT/TIME: 12/13/22756 * ALL edits or amendments must be made on the electronic/computer document * Subjective Subjective Patient reports: Patient reports: Yes no complaints, Yes normal movement, No abdominal pain, No vaginal bleeding, No leaking fluid, No contractions Objective VS: Last Documented: Result Date Time B/P Mean 104.0 12/13 1437 B/P 141/77 12/13 1437 Pulse 93 12/13 143 Pulse Ox 96 12/13 1436 Temp 98.0 12/13 1010 Resp 18 12/13 1010 Vital Signs Date Temp Pulse Resp B/P B/P Mean Pulse Ox FiO2 12/12-12/13 98.0-98.2 81-253 17-18 137-164/76-9 101.0-121.0 82-99 2 PATIENT WEIGHT: Weight (lb): 250 Weight (oz): Weight (kg): 113.600 Membranes: Intact Abdomen: gravid (obese), soft, no abnormal tenderness, no guarding Lower extremities: Edema: trace Calf tenderness: negative Baby A: Baby A baseline: 150 bpm Baby A variability: moderate 6-25 bpm Baby A accelerations: 15 X 15 Baby A decelerations: variable Baby A FHR category: discontinous, looks cat 1 Diagnosis, Assessment Plan Diagnosis, Assessment Plan Free Text A P: 32 y/o [facility] 02-20-23 [facility] at 29 5/7 weeks transported from [place] at 26.2 for sob, orthopnea, pulm edema. PNC w dr cristina clay 1) Pulm edema- echo at sending wnl, pt feels better since adm, had cxr on adm w min pulm edema. PLAN- cpm BNP <30, recheck also low 3.8] 2) Prematurity- s/p bmz x 2 (9-5,6) no mgso4 d/t pulm edema, kiran consult ordered 3) U/S 9-24 KA, S:D 4.9-5.3, EFW 1084, 5.6%, AFT 9.5, BPP 8/8, cx long closed 9-4 gei Coates Cephalic CGA c/w dates UA-PI: 0.95 DVP: 2.7 Anatomy severely limited due to morbid obesity. PLAN- next scan in 2 weeks (the patient is wanting q week) The pt would like a "natural childbirth," but I explained to her she will need to be flexible, high risk of . The pt also would like only to give breast milk to baby and nothing else--again, I d/w her this may depend on many factors including whether she delivers early--which she may need to. Sometimes premies need umbilical lines and do not latch well, but we generally do all we can to help the baby get mom's breast milk as much as possible. 4) FWB- nst bid--> per pt's request, 1 hr TID after meals - nst cat 1, occ sharp variable but overall reassuring. PLAN- cont nst q8h 5) DVT prophy- lovenox 40 mg, had d/w pt and mom regarding why this is important. Pt requests to ambulate some, and have okayed this. Pt may also be a little stir crazy and need a little change of atmosphere. 6) Chr htn r/o YOVANY- bp at home 190/110, since adm bp 120-130/50-70 on labet 100 q8, procardia 30 xl bid. upcr 626, dropped to 241. nl ast/alt, plat. 24hu 554 mg . PLAN- still some labile BPs, continue to follow. 10- bp 130-150/70-90, no other s/s preE 7) IDDM- hgba1c 6.6 at sending 9-, on lantus 60 bid, humalog 50B, 60L, 70D Consulted rohan, nutrition and DM counselor. fructosamine 11-18 198, 11/30 217, 10 -2 pending. on lantus 115/120, humalog B80, L92, D 120 10-2 cgm stable, remains above 200 most of the time, occ lows. pt thinks this is d/t diet. fructo 12-10 200. i showed graph to dr madrigal, he rec incr by 15%. new dosing lantus 132/138. humalog B92 L 106, D138 12-10 cgm showed some improvement, but spikes after dinner . PLAN- incr humalog D to 120, fructosamine ordered for am. Pt seen w dr madrigal 9- glu sig drop. pt asympt. lunch humalog held. PLAN- cpm, dr madrigal to see pt - 9-20 min change in dexcon 7 readings. will incr insulin by 15%, to lantus 115/ 120, humalog B80, L92, D 102, fructosamine 11-30 217 8) ADHD/depression- stable on seroquel, zoloft 9) sleep apnea--pulm consult, per dr crocker, pt refusing cpap d/t claustrophobia. o2 sats are reassuring 10) fatigue--TSH nl, iron studies show bordeline deficiency, on iron and colace 11) Vulvar bump, vag odor and rash on abd. all asympt. no evidence of std. 9-15 wet mount neg for trich and bv, urine gc/chlam neg 12) pt requests to dc IV. I d/w her may need for BPmeds or diabetes meds, but she says we can stick her again if needed added Nifedipine (PO) protocol prn Pt seen and d/w dr ochoa at 1531 RPT #:[id number] END OF REPORT [facility] 2022-12-12 21:45:00 [facility] ([facility]) OB Antepartum Prog Note REPORT#:[id number] REPORT STATUS: Signed REPORT INITIALIZATION DATE:12/12/22 TIME: 2144 PATIENT: AMINTA NINO UNIT #: [id number] ROOM/BED: [address] : 92 AGE: 32 SEX: F ATTEND: Jak Herrera MD ADM AUTHOR: Purnima Gibson MD REPT SERVICE DT/TIME: 12/12/222144 * ALL edits or amendments must be made on the electronic/computer document * Subjective Subjective Current EGA: Current EGA(wks): 33 Current EGA(days): 6 Patient reports: Patient reports: Yes: normal movement. No: complaints, abdominal pain, vaginal bleeding , leaking fluid, contractions. Objective Nursing Documentation Review Nursing data: The data set between the solid lines has been imported from nursing documentation. Any exceptions have been noted below under Provider comments. ROM date: ROM time: Labor onset date: Labor onset time: Provider comments on imported nursing data: [] VS: Last Documented: Result Date Time B/P Mean 110.0 12/12 1941 Pulse Ox 82 12/12 1941 B/P 155/81 12/12 194 Pulse 253 12/12 1941 Temp 98.2 12/12 1745 Resp 16 12/12 1207 Vital Signs Date Temp Pulse Resp B/P B/P Mean Pulse Ox FiO2 12/12 97.9-98.2 86-253 16-18 130-155/65-83 92.0-110.0 82-98 PATIENT WEIGHT: Weight (lb): 250 Weight (oz): Weight (kg): 113.600 Medications: Active Meds + DC'd Last 24 Hrs Insulin Human Lispro (HumaLOG 3ML VIAL) 120 UNITS AC DIN SUBQ Insulin Glargine (LANTUS/SEMGLEE INSULIN 100 UNITS/ML) 115 UNIT AC BK SUBQ Insulin Glargine (LANTUS/SEMGLEE INSULIN 100 UNITS/ML) 120 UNIT BEDTIME SUBQ Labetalol HCl (NORMODYNE 100 MG/20 ML VIAL) 20 MG ASDIR PRN IV Nifedipine (ADALAT 10 MG CAP) 10 MG ASDIR PRN PO Nifedipine (ADALAT 10 MG CAP) 20 MG ASDIR PRN PO Nifedipine (ADALAT 10 MG CAP) 20 MG ASDIR PRN PO Insulin Human Lispro (HumaLOG 3ML VIAL) 80 UNITS AC BK SUBQ Insulin Human Lispro (HumaLOG 3ML VIAL) 92 UNITS AC MILDRED SUBQ Metformin HCl (GLUCOPHAGE 500MG TAB) 500 MG BID PO Dextrose (Glutose-15 (40%)) 37.5 ML Q15M PRN PRN BUCCAL Glucagon (GLUCAGON 1 MG/VIAL) 1 MG ASDIR PRN IM Dextrose/Water (DEXTROSE 50% IN WATER 50 ML SYR) 50 ML ASDIR PRN IV (CKD ) Acetaminophen/Butalbital/Caffe ine (Fioricet 50-300-40 MG Capsule) 2 EACH Q6H PRN PRN PO Multivitamin Hematinic Therapeutic (FERRALET 90 TABLET) 1 EACH DAILY PO Docusate Sodium (DOCUSATE SODIUM 100 MG CAP) 200 MG BEDTIME PO Hydralazine HCl (hydrALAZINE HCL 20MG) 10 MG ASDIR PRN IV Labetalol HCl (LABETALOL HCL 200 MG) 200 MG BID 9A 5P PO Labetalol HCl (NORMODYNE 100 MG/20 ML VIAL) 20 MG ONCE PRN IV Labetalol HCl (NORMODYNE 100 MG/20 ML VIAL) 40 MG ASDIR PRN IV Labetalol HCl (NORMODYNE 100 MG/20 ML VIAL) 80 MG ASDIR PRN IV Acetaminophen (ACETAMINOPHEN 325 MG TAB) 650 MG Q4H PRN PRN PO Patient Own Medication (PATIENT'S OWN MEDICATION) 2 EACH ASDIR PO Hydroxyzine HCl (ATARAX) 50 MG BEDTIME PRN PO Nifedipine (PROCARDIA XL 30 MG) 30 MG BID PO Enoxaparin Sodium (LOVENOX 40 MG INJ) 40 MG DAILY SUBQ Sertraline HCl (ZOLOFT 50 MG TAB) 100 MG DAILY PO Quetiapine Fumarate (SEROquel 100MG TABLET) 100 MG BEDTIME PO Calcium Gluconate (CA GLUCONATE 1 GM/10 ML VIAL) 1,000 MG BOLUS ASDIR PRN IV Membranes: Intact Uterine activity: Monitor: toco Frequency (description): none HEENT: normocephalic w/o injury, pupils equal, no scleral icterus, buffalo hump Cardiac: regular rate Neuro: Exam: alert, oriented x3, normal speech, CNII-XII grossly intact Baby A: Baby A baseline: 150 bpm Baby A variability: moderate 6-25 bpm Baby A accelerations: 15 X 15 Baby A decelerations: variable Baby A FHR category: discontinous, looks cat 1 Diagnosis, Assessment Plan Diagnosis, Assessment Plan Free text A P: 32 y/o [facility] 02-20-23 [facility] at 33 6/7 weeks transported from [place] at 26.2 for sob, orthopnea, pulm edema. PNC w dr cristina clay 1) Pulm edema- echo at sending wnl, pt feels better since adm, had cxr on adm w min pulm edema. PLAN- cpm BNP <30, recheck also low 3.8] 2) Prematurity- s/p bmz x 2 (-,6) no mgso4 d/t pulm edema, kiran consult ordered 3) U/S 9-24 KA, S:D 4.9-5.3, EFW 1084, 5.6%, AFT 9.5, BPP 8/8, cx long closed 9-4 gei Coates Cephalic CGA c/w dates UA-PI: 0.95 DVP: 2.7 Anatomy severely limited due to morbid obesity. PLAN- next scan in 2 weeks (the patient is wanting q week) The pt would like a "natural childbirth," but I explained to her she will need to be flexible, high risk of . The pt also would like only to give breast milk to baby and nothing else--again, I d/w her this may depend on many factors including whether she delivers early--which she may need to. Sometimes premies need umbilical lines and do not latch well, but we generally do all we can to help the baby get mom's breast milk as much as possible. 4) FWB- nst bid--> per pt's request, 1 hr TID after meals PLAN- cont nst q8h 5) DVT prophy- lovenox 40 mg, had d/w pt and mom regarding why this is important. Pt requests to ambulate some, and have okayed this. Pt may also be a little stir crazy and need a little change of atmosphere. 6) Chr htn r/o YOVNAY- bp at home 190/110, since adm bp 120-130/50-70 on labet 100 q8, procardia 30 xl bid. upcr 626, dropped to 241. nl ast/alt, plat. 24hu 554 mg . PLAN- still some labile BPs, continue to follow. 10-1 bp normal to mild range, no other s/s preE 7) IDDM- hgba1c 6.6 at sending -, on lantus 60 bid, humalog 50B, 60L, 70D Consulted orzeck, nutrition and DM counselor. fructosamine 9- 198, 11/30 217, 10 -2 pending. on lantus 115/120, humalog B80, L92, D 120 9- cgm showed some improvement, but spikes after dinner . PLAN- incr humalog D to 120, fructosamine ordered for am. Pt seen w dr madrigal. 12-11 due to 200s overnight, discussed with patient- will need additional humalog increase if she has higher carb meal 12-02 glu sig drop. pt asympt. lunch humalog held. PLAN- cpm, dr madrigal to see pt 12-03 9-20 min change in dexcon 7 readings. will incr insulin by 15%, to lantus 115/ 120, humalog B80, L92, D 102, fructosamine 11-30 217 8) ADHD/depression- on seroquel, zoloft 9) sleep apnea--pulm consult, per dr crocker, pt refusing cpap d/t claustrophobia. o2 sats are reassuring 10) fatigue--TSH nl, iron studies show bordeline deficiency--will start iron and colace 11) Vulvar bump, vag odor and rash on abd. all asympt. no evidence of std. 9-15 wet mount neg for trich and bv, urine gc/chlam neg 12) pt requests to dc IV. I d/w her may need for BPmeds or diabetes meds, but she says we can stick her again if needed added Nifedipine (PO) protocol prn at 2149 RPT #:[id number] END OF REPORT [facility] 2022-12-11 12:23:00 [facility] ([facility]) OB Antepartum Prog Note REPORT#:[id number] REPORT STATUS: Signed REPORT INITIALIZATION DATE:12/11/22 TIME: 1223 PATIENT: AMINTA NINO UNIT #: [id number] ROOM/BED: [address] : 92 AGE: 32 SEX: F ATTEND: Jak Herrera MD ADM AUTHOR: Aranza James MD REPT SERVICE DT/TIME: 12/11/22 1223 * ALL edits or amendments must be made on the electronic/computer document * Subjective Free Text Subj Notes Free Text Subj Notes: Denies complaints. overnight glucoses were 200s-230s as she had enchilada for dinner and received humalog 120u which is the usual dose Objective Nursing Documentation Review Nursing data: The data set between the solid lines has been imported from nursing documentation. Any exceptions have been noted below under Provider comments. ROM date: ROM time: Labor onset date: Labor onset time: Provider comments on imported nursing data: [] VS: Last Documented: Result Date Time B/P Mean 105.0 12/11 0808 B/P 139/82 12/11 0808 Pulse 81 12/11 0808 Pulse Ox 97 12/11 0807 Temp 98.0 12/11 0806 Resp 17 12/11 0806 Vital Signs Date Temp Pulse Resp B/P B/P Mean Pulse Ox FiO2 12/10-12/11 98.0 78-93 17-18 132-142/65-82 92.0-105.0 82-99 PATIENT WEIGHT: Weight (lb): 250 Weight (oz): Weight (kg): 113.600 Membranes: Intact Uterine activity: Monitor: toco Frequency (description): none HEENT: normocephalic w/o injury, pupils equal, no scleral icterus, buffalo hump Cardiac: regular rate Lungs: unlabored breathing Neuro: Exam: alert, oriented x3, normal speech, CNII-XII grossly intact Abdomen: gravid (obese), soft, no abnormal tenderness, no guarding Uterus: soft, tender Lower extremities: Edema: trace Calf tenderness: negative Baby A: Baby A baseline: 140 bpm (maybe 145, discontinuous) Baby A variability: moderate 6-25 bpm Baby A accelerations: 15 X 15 Baby A decelerations: variable Baby A FHR category: discontinous, looks cat 1 Diagnosis, Assessment Plan Diagnosis, Assessment Plan Free text A P: 32 y/o [facility] 02-20-23 [facility] at 29 6/7 weeks transported from [place] at 26.2 for sob, orthopnea, pulm edema. PNC w dr cristina clay 1) Pulm edema- echo at sending wnl, pt feels better since adm, had cxr on adm w min pulm edema. PLAN- cpm BNP <30, recheck also low 3.8] 2) Prematurity- s/p bmz x 2 (9-5,6) no mgso4 d/t pulm edema, kiran consult ordered 3) U/S 9-24 KA, S:D 4.9-5.3, EFW 1084, 5.6%, AFT 9.5, BPP 8/8, cx long closed 9-4 gei Coates Cephalic CGA c/w dates UA-PI: 0.95 DVP: 2.7 Anatomy severely limited due to morbid obesity. PLAN- next scan in 2 weeks (the patient is wanting q week) The pt would like a "natural childbirth," but I explained to her she will need to be flexible, high risk of . The pt also would like only to give breast milk to baby and nothing else--again, I d/w her this may depend on many factors including whether she delivers early--which she may need to. Sometimes premies need umbilical lines and do not latch well, but we generally do all we can to help the baby get mom's breast milk as much as possible. 4) FWB- nst bid--> per pt's request, 1 hr TID after meals 9-30 nst cat 1, occ sharp variable but overall reassuring. PLAN- cont nst q8h 5) DVT prophy- lovenox 40 mg, had d/w pt and mom regarding why this is important. Pt requests to ambulate some, and have okayed this. Pt may also be a little stir crazy and need a little change of atmosphere. 6) Chr htn r/o YOVANY- bp at home 190/110, since adm bp 120-130/50-70 on labet 100 q8, procardia 30 xl bid. upcr 626, dropped to 241. nl ast/alt, plat. 24hu 554 mg . PLAN- still some labile BPs, continue to follow. 9 bp 130-140/60-80, no other s/s preE 7) IDDM- hgba1c 6.6 at sending 11-13, on lantus 60 bid, humalog 50B, 60L, 70D Consulted rohan, nutrition and DM counselor. fructosamine 11-18 198, 11/30 217, pending. on lantus 115/120, humalog B80, L92, D 120 9 cgm showed some improvement, but spikes after dinner . PLAN- incr humalog D to 120, fructosamine ordered for am. Pt seen w dr madrigal. 12-11 due to 200s overnight, discussed with patient- will need additional humalog increase if she has higher carb meal 12-02 glu sig drop. pt asympt. lunch humalog held. PLAN- cpm, dr madrigal to see pt 12-03 9-20 min change in dexcon 7 readings. will incr insulin by 15%, to lantus 115/ 120, humalog B80, L92, D 102, fructosamine 11-30 217 8) ADHD/depression- on seroquel, zoloft 9) sleep apnea--pulm consult, per dr crocker, pt refusing cpap d/t claustrophobia. o2 sats are reassuring 10) fatigue--TSH nl, iron studies show bordeline deficiency--will start iron and colace 11) Vulvar bump, vag odor and rash on abd. all asympt. no evidence of std. 9-15 wet mount neg for trich and bv, urine gc/chlam neg 12) pt requests to dc IV. I d/w her may need for BPmeds or diabetes meds, but she says we can stick her again if needed added Nifedipine (PO) protocol prn at 1228 RPT #:[id number] END OF REPORT [facility] 2022-12-10 06:56:00 [facility] ([facility] OB Antepartum Prog Note REPORT#:[id number] REPORT STATUS: Signed REPORT INITIALIZATION DATE:12/10/22 TIME: 655 PATIENT: AMINTA NINO UNIT #: [id number] ROOM/BED: [address] : 92 AGE: 32 SEX: F ATTEND: Jak Herrera MD ADM AUTHOR: Darron Santacruz MD REPT SERVICE DT/TIME: 12/10/22 0656 * ALL edits or amendments must be made on the electronic/computer document * Subjective Subjective Patient reports: Patient reports: Yes no complaints, Yes normal movement, No abdominal pain, No vaginal bleeding, No leaking fluid, No contractions Objective VS: Last Documented: Result Date Time B/P Mean 117.0 12/10 918 Pulse Ox 99 12/10 918 B/P 157/88 12/10 918 Temp 97.9 12/10 918 Pulse 77 12/10 0919 Resp 18 12/10 918 Vital Signs Date Temp Pulse Resp B/P B/P Mean Pulse Ox FiO2 12/09-12/10 97.9-98.7 77-91 18 127-161/61-95 88.0-118.0 92-99 PATIENT WEIGHT: Weight (lb): 250 Weight (oz): Weight (kg): 113.600 Membranes: Intact Abdomen: gravid (obese), soft, no abnormal tenderness, no guarding Lower extremities: Edema: trace Calf tenderness: negative Baby A: Baby A baseline: 140 bpm (maybe 145, discontinuous) Baby A variability: moderate 6-25 bpm Baby A accelerations: 15 X 15 Baby A decelerations: variable Baby A FHR category: discontinous, looks cat 1 Diagnosis, Assessment Plan Diagnosis, Assessment Plan Free Text A P: 32 y/o [facility] 02-20-23 [facility] at 29 5/7 weeks transported from [place] at 26.2 for sob, orthopnea, pulm edema. PNC w dr cristina clay 1) Pulm edema- echo at sending wnl, pt feels better since adm, had cxr on adm w min pulm edema. PLAN- cpm BNP <30, recheck also low 3.8] 2) Prematurity- s/p bmz x 2 (9-,6) no mgso4 d/t pulm edema, kiran consult ordered 3) U/S 9- KA, S:D 4.9-5.3, EFW 1084, 5.6%, AFT 9.5, BPP /, cx long closed - gei Coates Cephalic CGA c/w dates UA-PI: 0.95 DVP: 2.7 Anatomy severely limited due to morbid obesity. PLAN- next scan in 2 weeks (the patient is wanting q week) The pt would like a "natural childbirth," but I explained to her she will need to be flexible, high risk of . The pt also would like only to give breast milk to baby and nothing else--again, I d/w her this may depend on many factors including whether she delivers early--which she may need to. Sometimes premies need umbilical lines and do not latch well, but we generally do all we can to help the baby get mom's breast milk as much as possible. 4) FWB- nst bid--> per pt's request, 1 hr TID after meals - nst cat 1, occ sharp variable but overall reassuring. PLAN- cont nst q8h 5) DVT prophy- lovenox 40 mg, had d/w pt and mom regarding why this is important. Pt requests to ambulate some, and have okayed this. Pt may also be a little stir crazy and need a little change of atmosphere. 6) Chr htn r/o YOVANY- bp at home 190/110, since adm bp 120-130/50-70 on labet 100 q8, procardia 30 xl bid. upcr 626, dropped to 241. nl ast/alt, plat. 24hu 554 mg . PLAN- still some labile BPs, continue to follow. 12-10 bp 130-150/60-80, no other s/s preE 7) IDDM- hgba1c 6.6 at sending 11-13, on lantus 60 bid, humalog 50B, 60L, 70D Consulted rohan, nutrition and DM counselor. fructosamine 11-18 198, 11/30 217, 10 -2 pending. on lantus 115/120, humalog B80, L92, D 120 12-10 cgm showed some improvement, but spikes after dinner . PLAN- incr humalog D to 120, fructosamine ordered for am. Pt seen w dr madrigal 12-02 glu sig drop. pt asympt. lunch humalog held. PLAN- cpm, dr madrigal to see pt 12-03 9-20 min change in dexcon 7 readings. will incr insulin by 15%, to lantus 115/ 120, humalog B80, L92, D 102, fructosamine 11-30 217 8) ADHD/depression- on seroquel, zoloft 9) sleep apnea--pulm consult, per dr crocker, pt refusing cpap d/t claustrophobia. o2 sats are reassuring 10) fatigue--TSH nl, iron studies show bordeline deficiency--will start iron and colace 11) Vulvar bump, vag odor and rash on abd. all asympt. no evidence of std. 9 wet mount neg for trich and bv, urine gc/chlam neg 12) pt requests to dc IV. I d/w her may need for BPmeds or diabetes meds, but she says we can stick her again if needed added Nifedipine (PO) protocol prn Pt seen and d/w dr jerez at 1212 RPT #:[id number] END OF REPORT [facility] 2022-12-09 07:19:00 [facility] ([facility] OB Antepartum Prog Note REPORT#:[id number] REPORT STATUS: Signed REPORT INITIALIZATION DATE:12/09/22 TIME: 718 PATIENT: AMINTA NINO UNIT #: [id number] ROOM/BED: [address] : 92 AGE: 32 SEX: F ATTEND: Jak Herrera MD ADM AUTHOR: Darron Santacruz MD REPT SERVICE DT/TIME: 12/09/22 0719 * ALL edits or amendments must be made on the electronic/computer document * Subjective Subjective Patient reports: Patient reports: Yes no complaints, Yes normal movement, No abdominal pain, No vaginal bleeding, No leaking fluid, No contractions Objective VS: Last Documented: Result Date Time B/P Mean 92.0 12/09 1218 Pulse Ox 99 12/09 1218 B/P 132/66 12/09 1218 Temp 98.7 12/09 1218 Pulse 91 12/09 1218 Resp 18 12/09 1218 Vital Signs Date Temp Pulse Resp B/P B/P Mean Pulse Ox FiO2 12/08-12/09 98.0-98.7 78-104 16-18 132-158/66-87 92.0-114.0 98-99 PATIENT WEIGHT: Weight (lb): 250 Weight (oz): Weight (kg): 113.600 Membranes: Intact Abdomen: gravid (obese), soft, no abnormal tenderness, no guarding Lower extremities: Edema: trace Calf tenderness: negative Baby A: Baby A baseline: 140 bpm (maybe 145, discontinuous) Baby A variability: moderate 6-25 bpm Baby A accelerations: 15 X 15 Baby A decelerations: variable Baby A FHR category: discontinous, looks cat 1 Diagnosis, Assessment Plan Diagnosis, Assessment Plan Free Text A P: 32 y/o [facility] 29 4/7 weeks transported from [place] at 26.2 for sob, orthopnea, pulm edema. PNC w dr cristina clay 1) Pulm edema- echo at sending wnl, pt feels better since adm, had cxr on adm w min pulm edema. PLAN- cpm BNP <30, recheck also low 3.8] 2) Prematurity- s/p bmz x 2 (9-5,6) no mgso4 d/t pulm edema, kiran consult ordered 3) U/S 9-24 KA, S:D 4.9-5.3, EFW 1084, 5.6%, AFT 9.5, BPP 8/8, cx long closed 9-4 gei Coates Cephalic CGA c/w dates UA-PI: 0.95 DVP: 2.7 Anatomy severely limited due to morbid obesity. PLAN- next scan in 2 weeks (the patient is wanting q week) The pt would like a "natural childbirth," but I explained to her she will need to be flexible, high risk of . The pt also would like only to give breast milk to baby and nothing else--again, I d/w her this may depend on many factors including whether she delivers early--which she may need to. Sometimes premies need umbilical lines and do not latch well, but we generally do all we can to help the baby get mom's breast milk as much as possible. 4) FWB- nst bid--> per pt's request, 1 hr TID after meals 12-09 had occ sharp variables last pm, now fht 140-150, occ sharp variables, but overall reassuring. PLAN- cont nst q8h 5) DVT prophy- lovenox 40 mg, had d/w pt and mom regarding why this is important. Pt requests to ambulate some, and have okayed this. Pt may also be a little stir crazy and need a little change of atmosphere. 6) Chr htn r/o YOVANY- bp at home 190/110, since adm bp 120-130/50-70 on labet 100 q8, procardia 30 xl bid. upcr 626, dropped to 241. nl ast/alt, plat. 24hu 554 mg . PLAN- still some labile BPs, continue to follow. 12-09 bp 130-150/60-80, no other s/s preE 7) IDDM- hgba1c 6.6 at sending 11-13, on lantus 60 bid, humalog 50B, 60L, 70D Consulted rohan, nutrition and DM counselor. fructosamine 11-18 198, 11/30 217 12-09 cgm showed some improvement, but spikes after dinner . PLAN- incr humalog D to 120, fructosamine ordered for am. Pt seen w dr madrigal 12-02 glu sig drop. pt asympt. lunch humalog held. PLAN- cpm, dr madrigal to see pt 9- 9-20 min change in dexcon 7 readings. will incr insulin by 15%, to lantus 115/ 120, humalog B80, L92, D 102, fructosamine 9-19 217 8) ADHD/depression- on seroquel, zoloft 9) sleep apnea--pulm consult, per dr crocker, pt refusing cpap d/t claustrophobia. o2 sats are reassuring 10) fatigue--TSH nl, iron studies show bordeline deficiency--will start iron and colace 11) Vulvar bump, vag odor and rash on abd. all asympt. no evidence of std. 9-15 wet mount neg for trich and bv, urine gc/chlam neg 12) pt requests to dc IV. I d/w her may need for BPmeds or diabetes meds, but she says we can stick her again if needed added Nifedipine (PO) protocol prn Pt seen and d/w dr jerez at 1314 RPT #:[id number] END OF REPORT [facility] 2022-12-08 10:18:00 [id number] [place] [id number] PATIENT NAME: AMINTA NINO ADMIT DATE: 11/15/22 ACCOUNT NO: [id number] ROOM NO: F.[id number] AGE: 32 SEX: F ADMITTING PHYSICIAN: Jak Herrera MD ATTENDING PHYSICIAN: Jak Herrera MD [facility] Consult Aminta Nino PAC: [id number] Note Date: 12/08/2022 Note Time: 09:00:00 Place of Service: InPatient Reason for Consultation: 29.3 weeks, pulmonary edema. Maternal History : 1990 Mother's Age: 30 Mother's Blood Type: A Pos P: 1 Syphilis: RPR Negative HIV: Negative Rubella: Immune GBS: Unknown HBsAg: Negative Hep C: Negative GC: Negative Chlamydia: Negative Care: Yes EDC OB: 02/20/2023 Complications Anxiety and depression, 3rd trimester (O99.343) Chronic hypertension, 3rd trimester (O10.013) Gestational diabetes, insulin controlled (O24.414) Pulmonary edema, 3rd trimester (O99.513) Maternal Steroids: Yes Last Dose Date: 11/16/2022 Maternal Medications: Yes Betamethasone Enoxaparin Insulin Labetalol Magnesium Sulfate Metformin Nifedipine Zoloft PATIENT NAME: AMINTA NINO Comment Transported from [place] 11-15-22 at 26.2 for sob, orthopnea, pulmonary edema. PNC w Dr. Cristina Clay Present Plan Expectant management Recommendations I have reviewed the mother`s medical chart. I met with the mother in APU room # 5348. Based on the gestational age of 29 weeks gestation, there is some risk for mortality and significant risk for handicap if surviving. Using the [facility], survival of infants admitted to the NICU is estimated at to be approximately 98%, although this can vary depending upon BW, gender, steroids and pre or factors. Survival without severe IVH or ROP is estimated to be 97% of infants admitted to the NICU. We discussed that most any organ system can have problems related to prematurity. Some of the most common morbidities associated with this degree of prematurity, including but not limited to: respiratory distress syndrome requiring CPAP or intubation and mechanical ventilation, pneumothorax, necrotizing enterocolitis with the potential for loss of bowel, patent ductus arteriosus, infection requiring intravenous antibiotics, and the need for intravenous nutrition and gavage feedings. There is increased risk of neurodevelopmental delays or disabilities in infants born prematurely. Fortunately, the most severe injuries (severe IVH and or periventricular leukomalacia, severe ROP or blindness) are relatively uncommon at this gestation. I discussed the delivery room management, and explained the personnel that will be present at delivery. I reviewed the plan for delayed cord clamping (if appropriate) and thermoregulation support. We discussed the various modes of respiratory management that are available in the delivery room, including PPV, CPAP, intubation and mechanical ventilation. We also discussed the use of artificial surfactant, which may or may not be needed. Some infants need other measures in their resuscitation (e.g. CPR, fluid, blood). Commonly, infants at this gestation need an umbilical catheter(s) to allow nutrition monitoring. I reviewed the probable lab work and X-ray studies that will be obtained upon admission. When sufficiently stable, gavage feedings will be started. We discussed the critical importance of to optimize outcome (improved neurodevelopment, reduced risk of NEC and infections among other things). We discussed how we will support mother s . We discussed typical length of stay and discharge goals. Time was allotted for the family to ask questions, and all questions were answered to the best of my ability, given the information provided. The family understands and agrees with the present plan. Thank you for inviting me to speak with the family. We remain available if the family desires further discussion or clarification. PATIENT NAME: AMINTA NINO Total clinician time devoted to the patient on the day of this visit excluding time spent on other separately reported services was 35.00 minutes. Authenticated by: ELÍAS GARCIA MD Date/Time: 12/08/2022 10:18 Authenticated by Elías Garcia MD On 12/12/2022 06:18:25 PM at 0618 PATIENT NAME: AMINTA NINO [facility] 2022-12-08 06:46:00 [facility] OB Antepartum Prog Note REPORT#:[id number] REPORT STATUS: Signed REPORT INITIALIZATION DATE:12/08/22 TIME: 06 PATIENT: AMINTA NINO UNIT #: [id number] ROOM/BED: [address] : [birth year] AGE: 32 SEX: F ATTEND: Jak Herrera MD ADM AUTHOR: Darron Santacruz MD REPT SERVICE DT/TIME: 12/08/22 0646 * ALL edits or amendments must be made on the electronic/computer document * Subjective Subjective Patient reports: Patient reports: Yes no complaints, Yes normal movement, No abdominal pain, No vaginal bleeding, No leaking fluid, No contractions Objective VS: Last Documented: Result Date Time B/P Mean 96.0 12/08 857 B/P 133/70 12/08 857 Pulse 77 12/08 857 Temp 98.1 09/27 0434 Resp 16 09/27 0434 Pulse Ox 98 12/08 0118 Vital Signs Date Temp Pulse Resp B/P B/P Mean Pulse Ox FiO2 12/07-12/08 98.0-98.1 77-98 16-20 130-174/65-84 94.0-118.0 94-100 PATIENT WEIGHT: Weight (lb): 250 Weight (oz): Weight (kg): 113.600 Membranes: Intact Abdomen: gravid (obese), soft, no abnormal tenderness, no guarding Lower extremities: Edema: trace Calf tenderness: negative Baby A: Baby A baseline: 140 bpm (maybe 145, discontinuous) Baby A variability: moderate 6-25 bpm Baby A accelerations: 15 X 15 Baby A decelerations: variable Baby A FHR category: discontinous, looks cat 1 Diagnosis, Assessment Plan Diagnosis, Assessment Plan Free Text A P: 32 y/o [facility] 02-20[facility]23 [facility] at 29 3/7 weeks transported from [place] at 26.2 for sob, orthopnea, pulm edema. PNC w dr cristina clay 1) Pulm edema- echo at sending wnl, pt feels better since adm, had cxr on adm w min pulm edema. PLAN- cpm BNP <30, recheck also low 3.8] 2) Prematurity- s/p bmz x 2 (9-5,6) no mgso4 d/t pulm edema, kiran consult ordered 3) U/S 9-24 KA, S:D 4.9-5.3, EFW 1084, 5.6%, AFT 9.5, BPP 8/8, cx long closed 9-4 gei Coates Cephalic CGA c/w dates UA-PI: 0.95 DVP: 2.7 Anatomy severely limited due to morbid obesity. PLAN- next scan in 2 weeks (the patient is wanting q week) The pt would like a "natural childbirth," but I explained to her she will need to be flexible, high risk of . The pt also would like only to give breast milk to baby and nothing else--again, I d/w her this may depend on many factors including whether she delivers early--which she may need to. Sometimes premies need umbilical lines and do not latch well, but we generally do all we can to help the baby get mom's breast milk as much as possible. 4) FWB- nst bid--> per pt's request, 1 hr TID after meals 5) DVT prophy- lovenox 40 mg, had d/w pt and mom regarding why this is important. Pt requests to ambulate some, and have okayed this. Pt may also be a little stir crazy and need a little change of atmosphere. 6) Chr htn r/o YOVANY- bp at home 190/110, since adm bp 120-130/50-70 on labet 100 q8, procardia 30 xl bid. upcr 626, dropped to 241. nl ast/alt, plat. 24hu 554 mg . PLAN- still some labile BPs, continue to follow. 12-08 bp 130-160/60-80, no other s/s preE 7) IDDM- hgba1c 6.6 at sending 11-13, on lantus 60 bid, humalog 50B, 60L, 70D Consulted rohan, nutrition and DM counselor. fructosamine 11-18 198, 11/30 217 12-08 cgm showed some improvement, now back up. i showed CGM to dr madrigal, he will come by 12-09. he rec keeping insulin same fornow. diab educ and flight crew ordnanceman saw again 12-02 glu sig drop. pt asympt. lunch humalog held. PLAN- cpm, dr madrigal to see pt 12-03 9-20 min change in dexcon 7 readings. will incr insulin by 15%, to lantus 115/ 120, humalog B80, L92, D 102, fructosamine 11-30 217 8) ADHD/depression- on seroquel, zoloft 9) sleep apnea--pulm consult, per dr crocker, pt refusing cpap d/t claustrophobia. o2 sats are reassuring 10) fatigue--TSH nl, iron studies show bordeline deficiency--will start iron and colace 11) Vulvar bump, vag odor and rash on abd. all asympt. no evidence of std. 9-15 wet mount neg for trich and bv, urine gc/chlam neg 12) pt requests to dc IV. I d/w her may need for BPmeds or diabetes meds, but she says we can stick her again if needed added Nifedipine (PO) protocol prn Pt seen and d/w dr jerez at 1254 RPT #:[id number] END OF REPORT [facility] 2022-12-07 08:54:00 [facility] ([facility] OB Antepartum Prog Note REPORT#:[id number] REPORT STATUS: Signed REPORT INITIALIZATION DATE:12/07/22 TIME: 853 PATIENT: AMINTA NINO UNIT #: [id number] ROOM/BED: [address] : 92 AGE: 32 SEX: F ATTEND: Jak Herrera MD ADM AUTHOR: Darron Santacruz MD REPT SERVICE DT/TIME: 12/07/22 0854 * ALL edits or amendments must be made on the electronic/computer document * Subjective Subjective Patient reports: Patient reports: Yes no complaints, Yes normal movement, No abdominal pain, No vaginal bleeding, No leaking fluid, No contractions Objective VS: Last Documented: Result Date Time B/P Mean 95.0 12/07 1224 Pulse Ox 100 12/07 1224 B/P 132/72 12/07 1224 Temp 98.2 12/07 1224 Pulse 87 12/07 1224 Resp 18 12/07 1224 Vital Signs Date Temp Pulse Resp B/P B/P Mean Pulse Ox FiO2 12/06-12/07 97.7-98.2 83-91 18 132-140/68-84 95.0-105.0 97-100 PATIENT WEIGHT: Weight (lb): 250 Weight (oz): Weight (kg): 113.600 Membranes: Intact Abdomen: gravid (obese), soft, no abnormal tenderness, no guarding Lower extremities: Edema: trace Calf tenderness: negative Baby A: Baby A baseline: 140 bpm (maybe 145, discontinuous) Baby A variability: moderate 6-25 bpm Baby A accelerations: 15 X 15 Baby A decelerations: variable Baby A FHR category: discontinous, looks cat 1 Diagnosis, Assessment Plan Diagnosis, Assessment Plan Free Text A P: 32 y/o [facility] 02-20-23 [facility] at 29 2/7 weeks transported from [place] at 26.2 for sob, orthopnea, pulm edema. PNC w dr cristina clay 1) Pulm edema- echo at sending wnl, pt feels better since adm, had cxr on adm w min pulm edema. PLAN- cpm BNP <30, recheck also low 3.8] 2) Prematurity- s/p bmz x 2 (-,6) no mgso4 d/t pulm edema, kiran consult ordered 3) U/S 12-05 KA, S:D 4.9-5.3, EFW 1084, 5.6%, AFT 9.5, BPP 8/8, cx long closed 11-15 gei Coates Cephalic CGA c/w dates UA-PI: 0.95 DVP: 2.7 Anatomy severely limited due to morbid obesity. PLAN- next scan in 2 weeks (the patient is wanting q week) The pt would like a "natural childbirth," but I explained to her she will need to be flexible, high risk of . The pt also would like only to give breast milk to baby and nothing else--again, I d/w her this may depend on many factors including whether she delivers early--which she may need to. Sometimes premies need umbilical lines and do not latch well, but we generally do all we can to help the baby get mom's breast milk as much as possible. 4) FWB- nst bid--> per pt's request, 1 hr TID after meals 5) DVT prophy- lovenox 40 mg, had d/w pt and mom regarding why this is important. Pt requests to ambulate some, and have okayed this. Pt may also be a little stir crazy and need a little change of atmosphere. 6) Chr htn r/o YOVANY- bp at home 190/110, since adm bp 120-130/50-70 on labet 100 q8, procardia 30 xl bid. upcr 626, dropped to 241. nl ast/alt, plat. 24hu 554 mg . PLAN- still some labile BPs, continue to follow. 12-07 bp 130-140/60-80, no other s/s preE 7) IDDM- hgba1c 6.6 at sending 9-2, on lantus 60 bid, humalog 50B, 60L, 70D Consulted rohan, nutrition and DM counselor. fructosamine 11-18 198, 11/30 217 12-07 cgm showed some improvement, now back up. i showed CGM to dr madrigal. he rec keeping insulin same fornow. will have diab educ and flight crew ordnanceman see pt again soon. 12-02 glu sig drop. pt asympt. lunch humalog held. PLAN- cpm, dr madrigal to see pt 12-03 9-20 min change in dexcon 7 readings. will incr insulin by 15%, to lantus 115/ 120, humalog B80, L92, D 102, fructosamine 11-30 217 8) ADHD/depression- on seroquel, zoloft 9) sleep apnea--pulm consult, per dr crocker, pt refusing cpap d/t claustrophobia. o2 sats are reassuring 10) fatigue--TSH nl, iron studies show bordeline deficiency--will start iron and colace 11) Vulvar bump, vag odor and rash on abd. all asympt. no evidence of std. 11-26 wet mount neg for trich and bv, urine gc/chlam neg 12) pt requests to dc IV. I d/w her may need for BPmeds or diabetes meds, but she says we can stick her again if needed added Nifedipine (PO) protocol prn Pt seen and d/w dr josé at 1434 RPT #:[id number] END OF REPORT [facility] 2022-12-06 11:07:00 [facility] ([facility] OB Antepartum Prog Note REPORT#:[id number] REPORT STATUS: Signed DATE:12/06/22 TIME: 1107 PATIENT: AMINTA NINO UNIT #: [id number] ROOM/BED: 5048-A : 92 AGE: 32 SEX: F ATTEND: Jak Herrera MD ADM AUTHOR: Juliet Colindres MD * ALL edits or amendments must be made on the electronic/computer document * Subjective Subjective Patient reports: Patient reports: Yes normal movement, No abdominal pain, No vaginal bleeding, No leaking fluid, No contractions, No headache, No blurred vision, No scotomata, No shortness of breath Comments: Pt upset regarding growth of baby by ultrasound This has her very worried. She requests more monitoring of the baby--she requests TID, mainly 1 hour after each meal. The pt is concerned regarding the amount of insulin she is on, and requests to get up and metal mover some--she feels this may lower her requirements. She recently restarted metformin, but had gained some resistance to this in the past. Her IV has been in for a month, and she has concerns--it pains her [patient's mom is a nurse] Objective Nursing Documentation Review Nursing data: The data set between the solid lines has been imported from nursing documentation. Any exceptions have been noted below under Provider comments. ROM date: ROM time: Labor onset date: Labor onset time: Provider comments on imported nursing data: [] VS: Last Documented: Result Date Time B/P Mean 92.0 12/06 0405 B/P 129/68 12/06 0405 Pulse 81 12/06 0405 Pulse Ox 98 12/05 1722 Temp 98.4 12/04 2009 Resp 18 12/04 2009 Vital Signs Date Temp Pulse Resp B/P B/P Mean Pulse Ox FiO2 12/05-12/06 81-99 129-146/65-91 92.0-113.0 98 PATIENT WEIGHT: Weight (lb): 250 Weight (oz): Weight (kg): 113.600 Membranes: Intact Uterine activity: Monitor: toco Frequency (description): none HEENT: normocephalic w/o injury, pupils equal, no scleral icterus, buffalo hump Cardiac: regular rate Lungs: unlabored breathing Neuro: Exam: alert, oriented x3, normal speech, CNII-XII grossly intact Abdomen: gravid (obese), soft, no abnormal tenderness, no guarding Uterus: soft, tender Lower extremities: Edema: trace Calf tenderness: negative Baby A: Baby A baseline: 140 bpm (maybe 145, discontinuous) Baby A variability: moderate 6-25 bpm Baby A accelerations: 15 X 15 Baby A decelerations: variable Baby A FHR category: discontinous, looks cat 1 Findings/data: BGs 200-300 range Diagnosis, Assessment Plan Diagnosis, Assessment Plan Free Text A P: 32 y/o [facility] 02-20-23 [facility] at 29 1/7 weeks transported from [place] at 26.2 for sob, orthopnea, pulm edema. PNC w dr cristina clay 1) Pulm edema- echo at sending wnl, pt feels better since adm, had cxr on adm w min pulm edema. PLAN- cpm BNP <30, recheck also low 3.8] 2) Prematurity- s/p bmz x 2 (9-5,6) no mgso4 d/t pulm edema, no need for kiran consult at this time 3) U/S 9-24, KA, S:D 4.9-5.3, EFW 1084, 5.6%, AFT 9.5, BPP 8/8, cx long closed 9-4 gei Coates Cephalic CGA c/w dates UA-PI: 0.95 DVP: 2.7 Anatomy severely limited due to morbid obesity. PLAN- next scan in 2 weeks (the patient is wanting q week) The pt would like a "natural childbirth," but I explained to her she will need to be flexible, high risk of . The pt also would like only to give breast milk to baby and nothing else--again, I d/w her this may depend on many factors including whether she delivers early--which she may need to. Sometimes premies need umbilical lines and do not latch well, but we generally do all we can to help the baby get mom's breast milk as much as possible. 4) FWB- nst bid--> per pt's request, 1 hr TID after meals 5) DVT prophy- lovenox 40 mg, had d/w pt and mom regarding why this is important. Pt requests to ambulate some, and have okayed this. Pt mayalso be a little stir crazy and need a little change of atmosphere. 6) Chr htn r/o YOVANY- bp at home 190/110, since adm bp 120-130/50-70 on labet 100 q8, procardia 30 xl bid. upcr 626, dropped to 241. nl ast/alt, plat. 24hu 554 mg . PLAN- still some labile BPs, continue to follow. 12-06 bp 129-163/65-92, no other s/s preE 7) IDDM- hgba1c 6.6 at sending 11-13, on lantus 60 bid, humalog 50B, 60L, 70D Consulted rohan, nutrition and DM counselor. fuctoisamine 11-18 198, 11/30 217 12-03 cgm showed some improvement, now back up. probably diet related. i showed CGM to dr madrigal. he rec keeping insulin same over weekend. will have diab educ and flight crew ordnanceman see pt again soon. 12-02 glu sig drop. pt asympt. lunch humalog held. PLAN- cpm, dr madrigal to see pt 12-03 9-20 min change in dexcon 7 readings. will incr insulin by 15%, to lantus 115/ 120, humalog B80, L92, D 102, fructosamine 11-30 217 8) ADHD/depression- on seroquel, zoloft 9) sleep apnea--pulm consult, per dr crocker, pt refusing cpap d/t claustrophobia. o2 sats are reassuring 10) fatigue--TSH nl, iron studies show bordeline deficiency--will start iron and colace 11) Vulvar bump, vag odor and rash on abd. all asympt. no evidence of std. 9-15 wet mount neg for trich and bv, urine gc/chlam neg 12) pt requests to dc IV. I d/w her may need for BPmeds or diabetes meds, but she says we can stick her again if needed added Nifedipine (PO) protocol prn at 1132 RPT #:[id number] END OF REPORT [facility] 2022-12-05 10:39:00 [facility] ([facility] Consultation Note REPORT#:[id number] REPORT STATUS: Signed DATE:12/05/22 TIME: 1039 PATIENT: AMINTA NINO UNIT #: [id number] ROOM/BED: [address] : 92 AGE: 32 SEX: F ATTEND: Jak Herrera MD ADM AUTHOR: Shabnam Jerez MD * ALL edits or amendments must be made on the electronic/computer document * History of Present Illness HPI Chief complaint: Transferred for [facility] History Past History Allergies: Coded Allergies: latex (SWELLING 11/15/22) Objective Physical Exam VS/I O: Last Documented: Result Date Time B/P Mean 115.0 12/05 0919 B/P 142/96 12/05 918 Pulse 88 12/05 918 Pulse Ox 98 12/05 917 Temp 98.4 12/04 2009 Resp 18 12/04 2009 PATIENT WEIGHT: Weight (lb): 250 Weight (oz): Weight (kg): 113.600 General appearance: alert, awake, no acute distress HEENT: normocephalic Cardiovascular: regular rate and rhythm Respiratory: clear to auscultation Abdomen: non-tender, soft Extremities: edema (trace) Neuro/CYTOGENETICS TECHNOLOGIST: alert, oriented x 3, normal speech Skin: dry, intact, normal color, normal temperature, normal turgor Psychiatry: not homicidal Results Radiology data: ultrasound coates vertex anerior placenta MATHEUS 9.5 decreased S/D 4.9-5.3 increased EFW 1084 gms, 5.6 % decreased interval gwoth BPP 8/8 cervix long closed Diagnosis, Assessment Plan Diagnosis, Assessment Plan Free Text A P: A/P 1- 2-SIUP at 29 weeks 3-PIH w/o features of severity, stabilized 4-Class B DM; 5-Severe obesity / Excessive MWG 6- BMI 48 continue current care at 1109 RPT #:[id number] END OF REPORT [facility] 2022-12-04 15:53:00 [facility] OB Antepartum Prog Note REPORT#:[id number] REPORT STATUS: Signed DATE:12/04/22 TIME: 1553 PATIENT: AMINTA NINO UNIT #: [id number] ROOM/BED: [address] : 92 AGE: 32 SEX: F ATTEND: Jak Herrera MD ADM AUTHOR: Stephanie Cota MD * ALL edits or amendments must be made on the electronic/computer document * Subjective Subjective Patient reports: Patient reports: Yes: normal movement. No: complaints, abdominal pain, vaginal bleeding , leaking fluid, contractions. Review of Systems Constitutional: Denies: chills, fatigue, fever. Objective Nursing Documentation Review Nursing data: The data set between the solid lines has been imported from nursing documentation. Any exceptions have been noted below under Provider comments. ROM date: ROM time: Labor onset date: Labor onset time: Provider comments on imported nursing data: [] VS: Last Documented: Result Date Time B/P Mean 105.0 12/04 1200 B/P 138/82 12/04 1200 Pulse 99 12/04 1200 Pulse Ox 99 12/04 0842 Resp 18 12/04 0204 Temp 98.3 12/03 2217 Vital Signs Date Temp Pulse Resp B/P B/P Mean Pulse Ox FiO2 12/03-12/04 98.3 78-99 18 128-181/67-88 93.0-120.0 97-99 PATIENT WEIGHT: Weight (lb): 250 Weight (oz): Weight (kg): 113.600 Membranes: Intact Uterine activity: Monitor: toco Frequency (description): none Cardiac: regular rate Lungs: unlabored breathing Neuro: Exam: alert, oriented x3, normal speech, CNII-XII grossly intact Abdomen: gravid (obese), soft, no abnormal tenderness, no guarding Uterus: soft, tender Lower extremities: Edema: 2+ pitting Calf tenderness: negative Baby A: Baby A baseline: 145 bpm Baby A variability: minimal < or = 5 bpm Baby A accelerations: 10 X 10 Baby A decelerations: variable Baby A FHR category: Reactive nst Diagnosis, Assessment Plan Diagnosis, Assessment Plan Free text A P: Free Text A P: 32 y/o [facility] 02-20-23 [facility] at 28 6/7 weeks transported from [place] at 26.2 for sob, orthopnea, pulm edema. PNC w dr cristina clay 1) Pulm edema- echo at sending wnl, pt feels better since adm, had cxr on adm w min pulm edema. PLAN- cpm BNP <30, recheck also low 3.8] 2) Prematurity- s/p bmz x 2 (-,6) no mgso4 d/t pulm edema, no need for kiran consult at this time 3) U/S - gei Coates Cephalic CGA c/w dates UA-PI: 0.95 DVP: 2.7 Anatomy severely limited due to morbid obesity. PLAN- due for u/s soon 4) FWB- nst bid 5) DVT prophy- lovenox 40 mg 6) Chr htn r/o YOVANY- bp at home 190/110, since adm bp 120-130/50-70 on labet 100 q8, procardia 30 xl bid. upcr 626, dropped to 241. nl ast/alt, plat. 24hu 554 mg . PLAN- still some labile BPs, continue to follow. 12-03 bp 130-140/60-80, no other s/s preE 7) IDDM- hgba1c 6.6 at sending 11-13, on lantus 60 bid, humalog 50B, 60L, 70D Consulted rohan, nutrition and DM counselor. fuctoisamine 11-18 198 12-03 cgm showed some improvement, now back up. probably diet related. i showed CGM to dr madrigal. he rec keeping insulin same over weekend. will have diab educ and flight crew ordnanceman see pt again soon. will review on 12-02 glu sig drop. pt asympt. lunch humalog held. PLAN- cpm, dr madrigal to see pt 12-03 9-20 min change in dexcon 7 readings. will incr insulin by 15%, to lantus 115/ 120, humalog B80, L92, D 102, fructosamine 9- pending 8) ADHD/depression- on seroquel, zoloft 9) sleep apnea--pulm consult, per dr crocker, pt refusing cpap d/t claustrophobia. o2 sats are reassuring 10) fatigue--TSH nl, iron studies show bordeline deficiency--will start iron and colace 11) Vulvar bump, vag odor and rash on abd. all asympt. no evidence of std. 9-15 wet mount neg for trich and bv, urine gc/chlam neg at 2643 RPT #:[id number] END OF REPORT [facility] 2022-12-03 09:10:00 [facility] OB Antepartum Prog Note REPORT#:[id number] REPORT STATUS: Signed DATE:12/03/22 TIME: 909 PATIENT: AMINTA NINO UNIT #: [id number] ROOM/BED: [facility] : 92 AGE: 32 SEX: F ATTEND: Jak Herrera MD ADM AUTHOR: Darron Santacruz MD * ALL edits or amendments must be made on the electronic/computer document * Subjective Subjective Patient reports: Patient reports: Yes no complaints, Yes normal movement, No abdominal pain, No vaginal bleeding, No leaking fluid, No contractions Objective VS: Last Documented: Result Date Time B/P Mean 94.0 12/03 0909 Pulse Ox 96 12/03 908 B/P 132/69 12/03 0909 Pulse 81 12/03 0909 Temp 98.0 12/02 2023 Resp 16 11/29 805 Vital Signs Date Temp Pulse Resp B/P B/P Mean Pulse Ox FiO2 12/02-12/03 81-96 132-145/66-84 94.0-109.0 96 PATIENT WEIGHT: Weight (lb): 250 Weight (oz): Weight (kg): 113.600 Membranes: Intact Abdomen: gravid (obese), soft, no abnormal tenderness, no guarding Lower extremities: Edema: 2+ pitting Calf tenderness: negative Baby A: Baby A baseline: 150 bpm Baby A variability: minimal < or = 5 bpm Baby A accelerations: 10 X 10 Baby A decelerations: variable Baby A FHR category: category 1 Diagnosis, Assessment Plan Diagnosis, Assessment Plan Free Text A P: 32 y/o [facility] 02-20-23 [facility] at 28 5/7 weeks transported from [place] at 26.2 for sob, orthopnea, pulm edema. PNC w dr cristina clay 1) Pulm edema- echo at sending wnl, pt feels better since adm, had cxr on adm w min pulm edema. PLAN- cpm BNP <30, recheck also low 3.8] 2) Prematurity- s/p bmz x 2 (-,6) no mgso4 d/t pulm edema, no need for kiran consult at this time 3) U/S - gei Coates Cephalic CGA c/w dates UA-PI: 0.95 DVP: 2.7 Anatomy severely limited due to morbid obesity. PLAN- due for u/s soon 4) FWB- nst bid 5) DVT prophy- lovenox 40 mg 6) Chr htn r/o YOVANY- bp at home 190/110, since adm bp 120-130/50-70 on labet 100 q8, procardia 30 xl bid. upcr 626, dropped to 241. nl ast/alt, plat. 24hu 554 mg . PLAN- still some labile BPs, continue to follow. 12-03 bp 130-140/60-80, no other s/s preE 7) IDDM- hgba1c 6.6 at sending 11-13, on lantus 60 bid, humalog 50B, 60L, 70D Consulted rohan, nutrition and DM counselor. fuctoisamine 11-18 198 12-03 cgm showed some improvement, now back up. probably diet related. i showed CGM to dr madrigal. he rec keeping insulin same over weekend. will have diab educ and flight crew ordnanceman see pt again soon. will review on 12-02 glu sig drop. pt asympt. lunch humalog held. PLAN- cpm, dr madrigal to see pt 12-03 9-20 min change in dexcon 7 readings. will incr insulin by 15%, to lantus 115/ 120, humalog B80, L92, D 102, fructosamine 9- pending 8) ADHD/depression- on seroquel, zoloft 9) sleep apnea--pulm consult, per dr crocker, pt refusing cpap d/t claustrophobia. o2 sats are reassuring 10) fatigue--TSH nl, iron studies show bordeline deficiency--will start iron and colace 11) Vulvar bump, vag odor and rash on abd. all asympt. no evidence of std. 9 wet mount neg for trich and bv, urine gc/chlam neg Pt seen and d/w Dr. jerez at 1308 RPT #:[id number] END OF REPORT [facility] 2022-12-02 06:57:00 [facility] OB Antepartum Prog Note REPORT#:[id number] REPORT STATUS: Signed DATE:12/02/22 TIME: 656 PATIENT: AMINTA NINO UNIT #: [id number] ROOM/BED: [address] : 92 AGE: 32 SEX: F ATTEND: Jak Herrera MD ADM AUTHOR: Darron Santacruz MD * ALL edits or amendments must be made on the electronic/computer document * Subjective Subjective Patient reports: Patient reports: Yes no complaints, Yes normal movement, No abdominal pain, No vaginal bleeding, No leaking fluid, No contractions Objective VS: Last Documented: Result Date Time B/P Mean 103.0 12/02 0626 B/P 148/72 12/02 625 Pulse 83 12/02 06 Pulse Ox 99 12/02 2023 Temp 98.0 12/02 2023 Resp 16 11/29 0806 Vital Signs Date Temp Pulse Resp B/P B/P Mean Pulse Ox FiO2 12/01-12/02 98.0 78-93 123-148/59-83 85.0-107.0 99 PATIENT WEIGHT: Weight (lb): 250 Weight (oz): Weight (kg): 113.600 Membranes: Intact Abdomen: gravid (obese), soft, no abnormal tenderness, no guarding Lower extremities: Edema: 2+ pitting Calf tenderness: negative Baby A: Baby A baseline: 150 bpm Baby A variability: minimal < or = 5 bpm Baby A accelerations: 10 X 10 Baby A decelerations: variable Baby A FHR category: category 1 Diagnosis, Assessment Plan Diagnosis, Assessment Plan Free Text A P: 32 y/o [facility] 02-20-23 [facility] at 28 4/7 weeks transported from [place] at 26.2 for sob, orthopnea, pulm edema. PNC w dr cristina clay 1) Pulm edema- echo at sending wnl, pt feels better since adm, had cxr on adm w min pulm edema. PLAN- cpm BNP <30, recheck also low 3.8] 2) Prematurity- s/p bmz x 2 (9-5,6) no mgso4 d/t pulm edema, no need for kiran consult at this time 3) U/S - gei Coates Cephalic CGA c/w dates UA-PI: 0.95 DVP: 2.7 Anatomy severely limited due to morbid obesity. PLAN- due for u/s soon 4) FWB- nst bid 5) DVT prophy- lovenox 40 mg 6) Chr htn r/o YOVANY- bp at home 190/110, since adm bp 120-130/50-70 on labet 100 q8, procardia 30 xl bid. upcr 626, dropped to 241. nl ast/alt, plat. 24hu 554 mg . PLAN- still some labile BPs, continue to follow. 9 bp 120-140/60-70, no other s/s preE 7) IDDM- hgba1c 6.6 at sending -, on lantus 60 bid, humalog 50B, 60L, 70D Consulted rohan, nutrition and DM counselor. fuctoisamine - 198 9- glu sig drop. pt asympt. lunch humalog held. PLAN- cpm, dr madrigal to see pt 12-03 9-20 min change in dexcon 7 readings. will incr insulin by 15%, to lantus 115/ 120, humalog B80, L92, D 102, fructosamine 9-18 pending 8) ADHD/depression- on seroquel, zoloft 9) sleep apnea--pulm consult, per dr crocker, pt refusing cpap d/t claustrophobia. o2 sats are reassuring 10) fatigue--TSH nl, iron studies show bordeline deficiency--will start iron and colace 11) Vulvar bump, vag odor and rash on abd. all asympt. no evidence of std. 9-15 wet mount neg for trich and bv, urine gc/chlam neg Pt seen and d/w Dr. josé at 1825 RPT #:[id number] END OF REPORT [facility] 2022-12-01 06:51:00 [facility] ([facility] OB Antepartum Prog Note REPORT#:[id number] REPORT STATUS: Signed DATE:12/01/22 TIME: 06 PATIENT: AMINTA NINO UNIT #: [id number] ROOM/BED: [address] : 92 AGE: 32 SEX: F ATTEND: Jak Herrera MD ADM AUTHOR: Darron Santacruz MD * ALL edits or amendments must be made on the electronic/computer document * Subjective Subjective Patient reports: Patient reports: Yes no complaints, Yes normal movement, No abdominal pain, No vaginal bleeding, No leaking fluid, No contractions Objective VS: Last Documented: Result Date Time B/P Mean 90.0 12/01 0943 B/P 130/65 12/01 0943 Pulse 89 12/01 0943 Temp 98.0 11/30 2048 Pulse Ox 98 11/30 1339 Resp 16 11/29 08 Vital Signs Date Temp Pulse Resp B/P B/P Mean Pulse Ox FiO2 11/30-12/01 98.0 86-96 127-158/65-89 89.0-115.0 98 PATIENT WEIGHT: Weight (lb): 250 Weight (oz): Weight (kg): 113.600 Membranes: Intact Abdomen: gravid (obese), soft, no abnormal tenderness, no guarding Lower extremities: Edema: 2+ pitting Calf tenderness: negative Baby A: Baby A baseline: 150 bpm Baby A variability: minimal < or = 5 bpm Baby A accelerations: 10 X 10 Baby A decelerations: variable Baby A FHR category: category 1 Diagnosis, Assessment Plan Diagnosis, Assessment Plan Free Text A P: 32 y/o [facility]23 [facility] 3/7 [facility] transported from [place] at 26.2 for sob, orthopnea, pulm edema. PNC w dr cristina clay 1) Pulm edema- echo at sending wnl, pt feels better since adm, had cxr on adm w min pulm edema. PLAN- cpm BNP <30, recheck also low 3.8] 2) Prematurity- s/p bmz x 2 (9-5,6) no mgso4 d/t pulm edema, no need for kiran consult at this time 3) U/S - gei Coates Cephalic CGA c/w dates UA-PI: 0.95 DVP: 2.7 Anatomy severely limited due to morbid obesity. PLAN- due for u/s soon 4) FWB- nst bid 5) DVT prophy- lovenox 40 mg 6) Chr htn r/o YOVANY- bp at home 190/110, since adm bp 120-130/50-70 on labet 100 q8, procardia 30 xl bid. upcr 626, dropped to 241. nl ast/alt, plat. 24hu 554 mg . PLAN- still some labile BPs, continue to follow. 12-01 bp 130-150/60-70, no other s/s preE 7) IDDM- hgba1c 6.6 at sending 11-13, on lantus 60 bid, humalog 50B, 60L, 70D Consulted rohan, nutrition and DM counselor. fuctoisamine 11-18 198 9-20 min change in dexcon 7 readings. will incr insulin by 15%, to lantus 115/ 120, humalog B80, L92, D 102, fructosamine 11-29 pending 11-29 reviewed dexcon7 w rohan, glu seems to be trending down, insulin incr by 15% to lantus 100/104, humalog B70, L81, D96. Ordered repeat fructosamine. will reeval wed 12-01 has dexcon 7 CGM, reviewed w dr madrigal at bedside, PLAN incr lantus to 80 bid, humalog BLD 60, 70, 80. no need for fingerstick glu 11-24 current: check glu fasting at 1500 and qhs. continue lantus 70 bid, and change humalog 55B, 65L, 75D. NO SSI. fructosamine 198, c-peptide 1.5, insulin level 37.3 (high). He will cont to follow. a1c not useful in preg. 8) ADHD/depression- on seroquel, zoloft 9) sleep apnea--pulm consult, per dr crocker, pt refusing cpap d/t claustrophobia. o2 sats are reassuring 10) fatigue--TSH nl, iron studies show bordeline deficiency--will start iron and colace 11) Vulvar bump, vag odor and rash on abd. all asympt. no evidence of std. 9-15 wet mount neg for trich and bv, urine gc/chlam neg Pt seen and d/w Dr. jerez at 1230 RPT #:[id number] END OF REPORT [facility] 2022-11-30 06:29:00 [facility] OB Antepartum Prog Note REPORT#:[id number] REPORT STATUS: Signed DATE:11/30/22 TIME: 628 PATIENT: AMINTA NINO UNIT #: [id number] ROOM/BED: [address] : 92 AGE: 32 SEX: F ATTEND: Jak Herrera MD ADM AUTHOR: Darron Santacruz MD * ALL edits or amendments must be made on the electronic/computer document * Subjective Subjective Patient reports: Patient reports: Yes no complaints, Yes normal movement, No abdominal pain, No vaginal bleeding, No leaking fluid, No contractions Comments: wants to go home Objective VS: Last Documented: Result Date Time B/P Mean 115.0 11/30 1339 Pulse Ox 98 11/30 1339 B/P 158/87 11/30 1339 Pulse 95 11/30 1339 Temp 97.8 11/30 0933 Resp 16 11/29 0806 Vital Signs Date Temp Pulse Resp B/P B/P Mean Pulse Ox FiO2 11/29-11/30 97.8 88-103 114-158/56-87 81.0-115.0 98-99 PATIENT WEIGHT: Weight (lb): 250 Weight (oz): Weight (kg): 113.600 Membranes: Intact Abdomen: gravid (obese), soft, no abnormal tenderness, no guarding Lower extremities: Edema: 2+ pitting Calf tenderness: negative Baby A: Baby A baseline: 150 bpm Baby A variability: minimal < or = 5 bpm Baby A accelerations: 10 X 10 Baby A decelerations: variable Baby A FHR category: category 1 Diagnosis, Assessment Plan Diagnosis, Assessment Plan Free Text A P: 32 y/o [facility] 02-20-23 [facility] at 28 2/7 weeks transported from [place] at 26.2 for sob, orthopnea, pulm edema. PNC w dr cristina white 1) Pulm edema- echo at sending wnl, pt feels better since adm, had cxr on adm w min pulm edema. PLAN- cpm BNP <30, recheck also low 3.8] 2) Prematurity- s/p bmz x 2 (-,6) no mgso4 d/t pulm edema, no need for kiran consult at this time 3) U/S - gei Coates Cephalic CGA c/w dates UA-PI: 0.95 DVP: 2.7 Anatomy severely limited due to morbid obesity. PLAN- due for u/s soon 4) FWB- nst bid 5) DVT prophy- lovenox 40 mg 6) Chr htn r/o YOVANY- bp at home 190/110, since adm bp 120-130/50-70 on labet 100 q8, procardia 30 xl bid. upcr 626, dropped to 241. nl ast/alt, plat. 24hu 554 mg . PLAN- still some labile BPs, continue to follow. 11-30 bp 120-150/50-80, no other s/s preE 7) IDDM- hgba1c 6.6 at sending 11-13, on lantus 60 bid, humalog 50B, 60L, 70D Consulted rohan, nutrition and DM counselor. 11-30 min change in dexcon 7 readings. will reeval in am and adjust insulin by 15 % 11-29 reviewed dexcon7 w rohan, glu seems to be trending down, insulin incr by 15% to lantus 100/104, humalog B70, L81, D96. Ordered repeat fructosamine. will reeval wed 12-01 has dexcon 7 CGM, reviewed w dr madrigal at bedside, PLAN incr lantus to 80 bid, humalog BLD 60, 70, 80. no need for fingerstick glu 11-24 current: check glu fasting at 1500 and qhs. continue lantus 70 bid, and change humalog 55B, 65L, 75D. NO SSI. fructosamine 198, c-peptide 1.5, insulin level 37.3 (high). He will cont to follow. a1c not useful in preg. 8) ADHD/depression- on seroquel, zoloft 9) sleep apnea--pulm consult, per dr crocker, pt refusing cpap d/t claustrophobia. o2 sats are reassuring 10) fatigue--TSH nl, iron studies show bordeline deficiency--will start iron and colace 11) Vulvar bump, vag odor and rash on abd. all asympt. no evidence of std. 9-15 wet mount neg for trich and bv, urine gc/chlam neg Pt seen and d/w Dr. jerez at 1530 RPT #:[id number] END OF REPORT [facility] 2022-11-29 07:23:00 [facility] OB Antepartum Prog Note REPORT#:[id number] REPORT STATUS: Signed DATE:11/29/22 TIME: 722 PATIENT: AMINTA NINO UNIT #: [id number] ROOM/BED: [address] : 92 AGE: 32 SEX: F ATTEND: Jak Herrera MD ADM AUTHOR: Darron Santacruz MD * ALL edits or amendments must be made on the electronic/computer document * Subjective Subjective Patient reports: Patient reports: Yes no complaints, Yes normal movement, No abdominal pain, No vaginal bleeding, No leaking fluid, No contractions Objective VS: Last Documented: Result Date Time B/P Mean 101.0 11/29 0806 Pulse Ox 98 11/29 0806 B/P 132/80 11/29 0806 Temp 98.0 11/29 0806 Pulse 87 11/29 0806 Resp 16 11/29 0806 Vital Signs Date Temp Pulse Resp B/P B/P Mean Pulse Ox FiO2 11/28-11/29 97.8-98.0 86-95 16-18 116-156/55-86 78.0-110.0 98-99 PATIENT WEIGHT: Weight (lb): 250 Weight (oz): Weight (kg): 113.600 Membranes: Intact Abdomen: gravid (obese), soft, no abnormal tenderness, no guarding Lower extremities: Edema: 2+ pitting Calf tenderness: negative Baby A: Baby A baseline: 150 bpm Baby A variability: minimal < or = 5 bpm Baby A accelerations: 10 X 10 Baby A decelerations: variable Baby A FHR category: category 1 Diagnosis, Assessment Plan Diagnosis, Assessment Plan Free Text A P: 32 y/o [facility] 02-20-23 [facility] at 28 1/7 weeks transported from [place] at 26.2 for sob, orthopnea, pulm edema. PNC w dr cristina clay 1) Pulm edema- echo at sending wnl, pt feels better since adm, had cxr on adm w min pulm edema. PLAN- cpm BNP <30, recheck also low 3.8] 2) Prematurity- s/p bmz x 2 (11-16,6) no mgso4 d/t pulm edema, no need for kiran consult at this time 3) U/S 11-15 gei Coates Cephalic CGA c/w dates UA-PI: 0.95 DVP: 2.7 Anatomy severely limited due to morbid obesity 4) FWB- nst bid 5) DVT prophy- lovenox 40 mg 6) Chr htn r/o YOVANY- bp at home 190/110, since adm bp 120-130/50-70 on labet 100 q8, procardia 30 xl bid. upcr 626, dropped to 241. nl ast/alt, plat. 24hu 554 mg . PLAN- still some labile BPs, continue to follow. 7) IDDM- hgba1c 6.6 at sending 11-13, on lantus 60 bid, humalog 50B, 60L, 70D Consulted rohan nutrition and DM counselor. 11-29 reviewed dexcon7 w rohan, glu seems to be trending down, insulin incr by 15% to lantus 100/104, humalog B70, L81, D96. Ordered repeat fructosamine. will reeval 12-01 has dexcon 7 CGM, reviewed w dr madrigal at bedside, PLAN incr lantus to 80 bid, humalog BLD 60, 70, 80. no need for fingerstick glu 11-24 current: check glu fasting at 1500 and qhs. continue lantus 70 bid, and change humalog 55B, 65L, 75D. NO SSI. fructosamine 198, c-peptide 1.5, insulin level 37.3 (high). He will cont to follow. a1c not useful in preg. 8) ADHD/depression- on seroquel, zoloft 9) sleep apnea--pulm consult, per dr crocker, pt refusing cpap d/t claustrophobia. o2 sats are reassuring 10) fatigue--TSH nl, iron studies show bordeline deficiency--will start iron and colace 11) Vulvar bump, vag odor and rash on abd. all asympt. no evidence of std. 9-15 wet mount neg for trich and bv, urine gc/chlam neg Pt seen and d/w Dr. ochoa and rohan at 1625 RPT #:[id number] END OF REPORT [facility] 2022-11-28 09:22:00 [facility] OB Antepartum Prog Note REPORT#:[id number] REPORT STATUS: Signed DATE:11/28/22 TIME: 921 PATIENT: AMINTA NINO UNIT #: [id number] ROOM/BED: [address] : 92 AGE: 32 SEX: F ATTEND: Jak Herrera MD ADM AUTHOR: Stephanie Cota MD * ALL edits or amendments must be made on the electronic/computer document * Subjective Subjective Patient reports: Patient reports: Yes: normal movement. No: complaints. Free Text Subj Notes Free Text Subj Notes: Very tired this morning and wants to be left alone to sleep Review of Systems Constitutional: Reports: fatigue. Denies: chills, fever. Objective Nursing Documentation Review Nursing data: The data set between the solid lines has been imported from nursing documentation. Any exceptions have been noted below under Provider comments. ROM date: ROM time: Labor onset date: Labor onset time: Provider comments on imported nursing data: [] VS: Last Documented: Result Date Time B/P Mean 92.0 11/28 0857 B/P 133/66 11/28 0857 Pulse 85 11/28 0857 Pulse Ox 98 11/28 0607 Temp 97.6 11/27 1919 Resp 17 11/27 191 Vital Signs Date Temp Pulse Resp B/P B/P Mean Pulse Ox FiO2 11/27-11/28 97.6-98.4 83-89 17-18 133-147/64-73 91.0-101.0 98-99 PATIENT WEIGHT: Weight (lb): 250 Weight (oz): Weight (kg): 113.600 Membranes: Intact Uterine activity: Monitor: toco Frequency (description): none Lungs: unlabored breathing Abdomen: gravid (obese), soft, no abnormal tenderness, no guarding Lower extremities: Edema: 2+ pitting Calf tenderness: negative Baby A: Baby A baseline: 150 bpm Baby A variability: minimal < or = 5 bpm Baby A accelerations: 10 X 10 Baby A decelerations: variable Baby A FHR category: category 1 Diagnosis, Assessment Plan Diagnosis, Assessment Plan Free text A P: Free Text A P: 32 y/o [facility] 02-20-23 [facility] at 28 weeks transported from [place] 11-15-22 at 26.2 for sob, orthopnea, pulm edema. PNC w dr cristina clay 1) Pulm edema- echo at sending wnl, pt feels better since adm, had cxr on adm w min pulm edema. PLAN- cpm BNP <30, recheck also low 3.8] 2) Prematurity- s/p bmz x 2 (9-5,6) no mgso4 d/t pulm edema, no need for kiran consult at this time 3) U/S 9-4 gei Coates Cephalic CGA c/w dates UA-PI: 0.95 DVP: 2.7 Anatomy severely limited due to morbid obesity 4) FWB- nst bid 5) DVT prophy- lovenox 40 mg 6) Chr htn r/o YOVANY- bp at home 190/110, since adm bp 120-130/50-70 on labet 100 q8, procardia 30 xl bid. upcr 626, dropped to 241. nl ast/alt, plat. 24hu 554 mg . PLAN- still some labile BPs, continue to follow. 7) IDDM- hgba1c 6.6 at sending 9-2: on lantus and humalog Consulted rohan, nutrition and DM counselor. 16: overnight glucose in 250s and fasting am was 200. Increase lantus am to 86 , Pm to 90. Humalog 60/70/84 11-25 has dexcon 7 CGM, reviewed w dr madrigal at bedside, PLAN incr lantus to 80 bid, humalog BLD 60, 70, 80. no need for fingerstick glu 11-24 current: check glu fasting at 1500 and qhs. continue lantus 70 bid, and change humalog 55B, 65L, 75D. NO SSI. fructosamine 198, c-peptide 1.5, insulin level 37.3 (high). He will cont to follow. a1c not useful in preg. 8) ADHD/depression- on seroquel, zoloft 9) sleep apnea--pulm consult, per dr crocker, pt refusing cpap d/t claustrophobia. o2 sats are reassuring 10) fatigue--TSH nl, iron studies show bordeline deficiency--will start iron and colace 11) Vulvar bump, vag odor and rash on abd. all asympt. no evidence of std. PLAN- wet mount was neg for BV/trich/yeast; urine gc/chlam pending at 0971 RPT #:[id number] END OF REPORT [facility] 2022-11-27 09:57:00 [facility] ([facility] OB Antepartum Prog Note REPORT#:[id number] REPORT STATUS: Signed DATE:11/27/22 TIME: 09 PATIENT: AMINTA NINO UNIT #: [id number] ROOM/BED: 5048-A : 92 AGE: 32 SEX: F ATTEND: Jak Herrera MD ADM AUTHOR: Aranza James MD * ALL edits or amendments must be made on the electronic/computer document * Subjective Free Text Subj Notes Free Text Subj Notes: No issues. reports normal movements. She notes her breathing has significantly improved. Reports her glucoses have been elevated. At 830 when I saw her, her glucose on dexcom was 200 with overnight being 250-300s. She notes not eating very many carbs on her tray. She doesn't get up and walk. Does not like CPAP here at hospital as it makes her feel claustrophobic- has an intranasal attachment that she likes better at home. Objective Nursing Documentation Review Nursing data: The data set between the solid lines has been imported from nursing documentation. Any exceptions have been noted below under Provider comments. ROM date: ROM time: Labor onset date: Labor onset time: Provider comments on imported nursing data: [] VS: Last Documented: Result Date Time B/P Mean 101.0 11/27 816 Pulse Ox 99 11/27 816 B/P 138/76 11/27 816 Temp 97.9 11/27 08 Pulse 82 11/27 08 Resp 17 11/27 08 Vital Signs Date Temp Pulse Resp B/P B/P Mean Pulse Ox FiO2 11/26-11/27 97.7-97.9 44-93 16-18 129-142/66-89 92.0-109.0 88-99 PATIENT WEIGHT: Weight (lb): 250 Weight (oz): Weight (kg): 113.600 Membranes: Intact Uterine activity: Monitor: toco Frequency (description): none HEENT: normocephalic w/o injury, pupils equal, no scleral icterus, buffalo hump Cardiac: regular rate and rhythm Lungs: unlabored breathing Neuro: Exam: alert, oriented x3, normal speech, CNII-XII grossly intact Abdomen: gravid (obese), soft, no abnormal tenderness, no guarding Lower extremities: Edema: 2+ pitting Calf tenderness: negative Baby A: Baby A baseline: 150 bpm Baby A variability: minimal < or = 5 bpm Baby A accelerations: 15 X 15 (2, and few 10x10) Baby A decelerations: variable Baby A FHR category: category 1 Diagnosis, Assessment Plan Diagnosis, Assessment Plan Free text A P: Free Text A P: 32 y/o [facility] 02-20-23 [facility] at 27 6/7 weeks transported from [place] at 26.2 for sob, orthopnea, pulm edema. PNC w dr cristina clay 1) Pulm edema- echo at sending wnl, pt feels better since adm, had cxr on adm w min pulm edema. PLAN- cpm BNP <30, recheck also low 3.8] 2) Prematurity- s/p bmz x 2 (9-5,6) no mgso4 d/t pulm edema, no need for kiran consult at this time 3) U/S 9-4 gei Coates Cephalic CGA c/w dates UA-PI: 0.95 DVP: 2.7 Anatomy severely limited due to morbid obesity 4) FWB- nst bid 5) DVT prophy- lovenox 40 mg 6) Chr htn r/o YOVANY- bp at home 190/110, since adm bp 120-130/50-70 on labet 100 q8, procardia 30 xl bid. upcr 626, dropped to 241. nl ast/alt, plat. 24hu 554 mg . PLAN- still some labile BPs, continue to follow. 7) IDDM- hgba1c 6.6 at sending 9-2, on lantus 60 bid, humalog 50B, 60L, 70D Consulted rohan, nutrition and DM counselor. 16: overnight glucose in 250s and fasting am was 200. Increase lantus am to 86 , Pm to 90. Humalog 60/70/84 11-25 has dexcon 7 CGM, reviewed w dr madrigal at bedside, PLAN incr lantus to 80 bid, humalog BLD 60, 70, 80. no need for fingerstick glu 11-24 current: check glu fasting at 1500 and qhs. continue lantus 70 bid, and change humalog 55B, 65L, 75D. NO SSI. fructosamine 198, c-peptide 1.5, insulin level 37.3 (high). He will cont to follow. a1c not useful in preg. 8) ADHD/depression- on seroquel, zoloft 9) sleep apnea--pulm consult, per dr crocker, pt refusing cpap d/t claustrophobia. o2 sats are reassuring 10) fatigue--TSH nl, iron studies show bordeline deficiency--will start iron and colace 11) Vulvar bump, vag odor and rash on abd. all asympt. no evidence of std. PLAN- wet mount was neg for BV/trich/yeast; urine gc/chlam pending at 1004 RPT #:[id number] END OF REPORT [facility] 2022-11-26 10:33:00 [facility] ([facility]) Pulmonology Progress Note REPORT#:[id number] REPORT STATUS: Signed DATE:11/26/22 TIME: 1033 PATIENT: AMINTA NINO UNIT #: [id number] ROOM/BED: [address] : 92 AGE: 32 SEX: F ATTEND: Jak Herrera MD ADM AUTHOR: Roderick Crocker MD * ALL edits or amendments must be made on the electronic/computer document * Subjective Comments: Patient seen with her nurse. She got a nasal CPAP mask yesterday afternoon. She did not use the CPAP overnight. She says the mask is too claustrophobic it causes a panic attack and it is uncomfortable. And this is even with the transition to the nasal mask which she says is not significantly better than the fullface mask that we have in the hospital. She states that she does not want to try that mask (nasal)again, at this time. Objective General VS/I O: Vital Signs: Date Time Temp Pulse Resp B/P B/P Pulse O2 O2 Flow FiO2 Mean Ox Delivery Rate 11/26 0846 101.0 11/26 0846 97.9 85 18 139/75 98 11/26 0409 110.0 11/26 0409 86 153/79 11/26 0401 149 82 11/26 0353 130.0 11/26 0353 93 185/98 11/26 0041 96.0 11/26 0041 82 136/69 97 11/25 1944 93.0 11/25 1944 82 131/68 11/25 1756 97.9 11/25 1530 96.0 11/25 1530 90 134/69 11/25 1210 98.0 11/25 1210 94 133/74 Vital Signs Date Temp Pulse Resp B/P B/P Mean Pulse Ox FiO2 11/25-11/26 97.9 82-149 18 131-185/68-98 93.0-130.0 82-98 Last Documented: Result Date Time B/P Mean 101.0 11/26 0846 Pulse Ox 98 11/26 0846 B/P 139/75 11/26 0846 Temp 97.9 11/26 0846 Pulse 85 11/26 0846 Resp 18 11/26 0846 PATIENT WEIGHT: Weight (lb): 250 Weight (oz): Weight (kg): 113.600 Medications: Active Meds + DC'd Last 24 Hrs Insulin Human Lispro (HumaLOG 3ML VIAL) 70 UNITS AC MILDRED SUBQ (DC) Insulin Human Lispro (HumaLOG 3ML VIAL) 60 UNITS AC BK SUBQ Acetaminophen/Butalbital/Caffe ine (Fioricet 50-300-40 MG Capsule) 2 EACH Q6H PRN PRN PO Acetaminophen/Butalbital/Caffe ine (Fioricet 50-300-40 MG Capsule) 1 EACH Q4H PRN PRN PO (DC) Insulin Glargine (LANTUS/SEMGLEE INSULIN 100 UNITS/ML) 80 UNIT BID SUBQ Insulin Human Lispro (HumaLOG 3ML VIAL) 84 UNITS AC DIN SUBQ Insulin Human Lispro (HumaLOG 3ML VIAL) 70 UNITS AC MILDRED SUBQ Multivitamin Hematinic Therapeutic (FERRALET 90 TABLET) 1 EACH DAILY PO Insulin Human Lispro (HumaLOG 3ML VIAL) 55 UNITS AC BK SUBQ (DC) Docusate Sodium (DOCUSATE SODIUM 100 MG CAP) 200 MG BEDTIME PO Hydralazine HCl (hydrALAZINE HCL 20MG) 10 MG ASDIR PRN IV Labetalol HCl (LABETALOL HCL 200 MG) 200 MG BID 9A 5P PO Labetalol HCl (NORMODYNE 100 MG/20 ML VIAL) 20 MG ONCE PRN IV Labetalol HCl (NORMODYNE 100 MG/20 ML VIAL) 40 MG ASDIR PRN IV Labetalol HCl (NORMODYNE 100 MG/20 ML VIAL) 80 MG ASDIR PRN IV Insulin Human Lispro (HumaLOG 3ML VIAL) 75 UNITS AC DIN SUBQ (DC) Insulin Human Lispro (HumaLOG 3ML VIAL) 65 UNITS AC MILDRED SUBQ (DC) Acetaminophen (ACETAMINOPHEN 325 MG TAB) 650 MG Q4H PRN PRN PO Multivit/Folic Acid/Iron ( Vitamin Tablet) 1 TAB DAILY PO (DC) Patient Own Medication (PATIENT'S OWN MEDICATION) 2 EACH ASDIR PO Insulin Glargine (LANTUS/SEMGLEE INSULIN 100 UNITS/ML) 70 UNIT BID SUBQ (DC) Hydroxyzine HCl (ATARAX) 50 MG BEDTIME PRN PO Nifedipine (PROCARDIA XL 30 MG) 30 MG BID PO Enoxaparin Sodium (LOVENOX 40 MG INJ) 40 MG DAILY SUBQ Sertraline HCl (ZOLOFT 50 MG TAB) 100 MG DAILY PO Dextrose (Glutose-15 (40%)) 37.5 ML Q15M PRN PRN BUCCAL Dextrose/Water (DEXTROSE 50% IN WATER 50 ML SYR) 50 ML ASDIR PRN IV (CKD ) Glucagon (GLUCAGON 1 MG/VIAL) 1 MG ASDIR PRN IM Quetiapine Fumarate (SEROquel 100MG TABLET) 100 MG BEDTIME PO Calcium Gluconate (CA GLUCONATE 1 GM/10 ML VIAL) 1,000 MG BOLUS ASDIR PRN IV Physical Exam General appearance: obese, alert, awake, oriented Psychiatry: normal affect, normal mood Results Findings/Data: Laboratory Tests 11/26 11/25 11/25 0611 2050 1520 Chemistry POC Glucose (65 - 110 mg/dL) 243 H 249 H 153 H Diagnosis, Assessment Plan Free Text A P: Assessment: Obstructive sleep apnea Preeclampsia Diabetes mellitus with hyperglycemia 27-week intrauterine Bipolar ADHD DVT risk Nonadherence with medical therapy--CPAP for sleep apnea Recommendations and plan We will empirically try her with CPAP 12 cm of water for her sleep apnea. Have discussed with her it may be worth getting from her prior provider a copy of the sleep study and CPAP titration reports. Ultimately since she is a Medicaid product based on her facesheet she will need a new study to get a new machine in most cases. A home sleep test would be adequate. Blood pressure control per OB and MFM Diabetes with hyperglycemia per site damage prevention technician on case DVT risk: If she is not going to eminently deliver since her BMI is greater than 40 recommend increasing the Lovenox to 40 mg every 12 hours unless contraindicated My findings impression and plan were discussed at length with the patient including recommendations to get her results and that she did should do the home sleep study at her earliest convenience. Although it is most likely that she will be here till she delivers. Case discussed with hospitalist November 25, 2022: She was offered treatment for her sleep apnea overnight which she did not use. We discussed the reasons why. We will attempt to get a nasal mask and hopefully she will be able to use it. Mary with Dr. Hairston November 26 2022; Obstructive sleep apnea, even with attempts to offer her other treatment strategies that we do have available in the hospital she does not want to use the CPAP. Discussed with her that ultimately she will need to get outpatient sleep study which would be a home sleep test and then a new machine as was planned by her PCP. She expressed understanding. It was discussed with her if she is interested in reattempting to use the CPAP let her primary team know and they can reconsult me. Seen with her antepartum nurse. Events and recommendations discussed with Dr. Hairston of the primary team at 1130 RPT #:[id number] END OF REPORT [facility] 2022-11-26 08:03:00 [facility] ([facility] OB Antepartum Prog Note REPORT#:[id number] REPORT STATUS: Signed DATE:11/26/22 TIME: 802 PATIENT: AMINTA NINO UNIT #: [id number] ROOM/BED: [address] : 92 AGE: 32 SEX: F ATTEND: Jak Herrera MD ADM AUTHOR: Darron Santacruz MD * ALL edits or amendments must be made on the electronic/computer document * Subjective Subjective Patient reports: Patient reports: Yes no complaints, Yes normal movement, No abdominal pain, No vaginal bleeding, No leaking fluid, No contractions Comments: c/o bump on vulva, non tender and rash on abd, also concerned about poss of trich w maldorous vagina, asking for std check Objective VS: Last Documented: Result Date Time B/P Mean 95.0 11/26 1150 Pulse Ox 98 11/26 1150 B/P 142/66 11/26 1150 Temp 97.7 11/26 1150 Pulse 85 11/26 1150 Resp 18 11/26 1150 Vital Signs Date Temp Pulse Resp B/P B/P Mean Pulse Ox FiO2 11/25-11/26 97.7-97.9 82-149 18 131-185/66-98 93.0-130.0 82-98 PATIENT WEIGHT: Weight (lb): 250 Weight (oz): Weight (kg): 113.600 Membranes: Intact Abdomen: gravid (obese), soft, no abnormal tenderness, no guarding Lower extremities: Edema: 2+ pitting Calf tenderness: negative Vagina: no obvious d/c. small varicosity on L l majora Baby A: Baby A baseline: 150 bpm Baby A variability: minimal < or = 5 bpm Baby A accelerations: 15 X 15 (2, and few 10x10) Baby A decelerations: variable Baby A FHR category: category 1 Findings/data: Laboratory Tests: 11/26 11/25 11/25 0611 2050 1520 Chemistry POC Glucose (65 - 110 mg/dL) 243 H 249 H 153 H Diagnosis, Assessment Plan Diagnosis, Assessment Plan Free Text A P: 32 y/o [facility] 02-20-23 [facility] at 27 5/7 weeks transported from [place] at 26.2 for sob, orthopnea, pulm edema. PNC w dr cristina clay 1) Pulm edema- echo at sending wnl, pt feels better since adm, had cxr on adm w min pulm edema. PLAN- cpm BNP <30, recheck also low 3.8] 2) Prematurity- s/p bmz x 2 (11-16,6) no mgso4 d/t pulm edema, no need for kiran consult at this time 3) U/S 11-15 gei Coates Cephalic CGA c/w dates UA-PI: 0.95 DVP: 2.7 Anatomy severely limited due to morbid obesity 4) FWB- nst bid 5) DVT prophy- lovenox 40 mg 6) Chr htn r/o YOVANY- bp at home 190/110, since adm bp 120-130/50-70 on labet 100 q8, procardia 30 xl bid. upcr 626, dropped to 241. nl ast/alt, plat. 24hu 554 mg . PLAN- still some labile BPs, continue to follow. 7) IDDM- hgba1c 6.6 at sending 11-13, on lantus 60 bid, humalog 50B, 60L, 70D Consulted rohan, nutrition and DM counselor. 11-25 has dexcon 7 CGM, reviewed w dr madrigal at bedside, PLAN incr lantus to 80 bid, humalog BLD 60, 70, 80. no need for fingerstick glu 11-24 current: check glu fasting at 1500 and qhs. continue lantus 70 bid, and change humalog 55B, 65L, 75D. NO SSI. fructosamine 198, c-peptide 1.5, insulin level 37.3 (high). He will cont to follow. a1c not useful in preg. 8) ADHD/depression- on seroquel, zoloft 9) sleep apnea--pulm consult, per dr crocker, pt refusing cpap d/t claustrophobia. o2 sats are reassuring 10) fatigue--TSH nl, iron studies show bordeline deficiency--will start iron and colace 11) Vulvar bump, vag odor and rash on abd. all asympt. no evidence of std. PLAN- wet mount for trich, urine gc/chlam Pt seen and d/w Dr. José at 1634 RPT #:[id number] END OF REPORT [facility] 2022-11-25 10:25:00 [facility] ([facility]) Pulmonology Progress Note REPORT#:[id number] REPORT STATUS: Signed DATE:11/25/22 TIME: 1025 PATIENT: AMINTA NINO UNIT #: [id number] ROOM/BED: [address] : 92 AGE: 32 SEX: F ATTEND: Jak Herrera MD ADM AUTHOR: Roderick Crocker MD * ALL edits or amendments must be made on the electronic/computer document * Subjective Comments: Seen with her nurse Laurie. Machine is at bedside patient did not use it last night. According to respiratory notes which were nonspecific she refused. In discussion with patient she said the mask was hard and made her felt claustrophobic. She describes using a nasal pillow type interface with her prior machine. Again I discussed with her that there are limited varieties of CPAP BiPAP masks. And that we will attempt to get her a nasal mask although we do not have pillows. I have spoken with Elisha from respiratory therapy who will bring nasal mask and fit her for that later today. I have discussed this with the patient she will attempt to use Discussed at length with her nurse Objective General VS/I O: Last Documented: Result Date Time Pulse Ox 98 11/25 913 Pulse 83 11/25 913 B/P Mean 99.0 11/25 912 B/P 132/76 11/25 912 Temp 98.0 11/25 912 Resp 18 11/24 2034 PATIENT WEIGHT: Weight (lb): 250 Weight (oz): Weight (kg): 113.600 Medications: Active Meds + DC'd Last 24 Hrs Multivitamin Hematinic Therapeutic (FERRALET 90 TABLET) 1 EACH DAILY PO Insulin Human Lispro (HumaLOG 3ML VIAL) 55 UNITS AC BK SUBQ Docusate Sodium (DOCUSATE SODIUM 100 MG CAP) 200 MG BEDTIME PO Hydralazine HCl (hydrALAZINE HCL 20MG) 10 MG ASDIR PRN IV Labetalol HCl (LABETALOL HCL 200 MG) 200 MG BID 9A 5P PO Labetalol HCl (NORMODYNE 100 MG/20 ML VIAL) 20 MG ONCE PRN IV Labetalol HCl (NORMODYNE 100 MG/20 ML VIAL) 40 MG ASDIR PRN IV Labetalol HCl (NORMODYNE 100 MG/20 ML VIAL) 80 MG ASDIR PRN IV Nifedipine (PROCARDIA XL 30 MG) 30 MG ONCE ONE PO (CAN) Insulin Human Lispro (HumaLOG 3ML VIAL) 75 UNITS AC DIN SUBQ Insulin Human Lispro (HumaLOG 3ML VIAL) 65 UNITS AC MILDRED SUBQ Insulin Human Lispro (HumaLOG 3ML VIAL) 70 UNITS AC DIN SUBQ (DC) Acetaminophen (ACETAMINOPHEN 325 MG TAB) 650 MG Q4H PRN PRN PO Insulin Human Lispro (HumaLOG 3ML VIAL) 60 UNITS AC MILDRED SUBQ (DC) Multivit/Folic Acid/Iron ( Vitamin Tablet) 1 TAB DAILY PO Patient Own Medication (PATIENT'S OWN MEDICATION) 2 EACH ASDIR PO Docusate Sodium (DOCUSATE SODIUM 100 MG CAP) 100 MG BID PO (DC) Insulin Human Lispro (HumaLOG 3ML VIAL) 50 UNITS AC BK SUBQ (DC) Insulin Glargine (LANTUS/SEMGLEE INSULIN 100 UNITS/ML) 70 UNIT BID SUBQ Hydroxyzine HCl (ATARAX) 50 MG BEDTIME PRN PO Nifedipine (PROCARDIA XL 30 MG) 30 MG BID PO Enoxaparin Sodium (LOVENOX 40 MG INJ) 40 MG DAILY SUBQ Labetalol HCl (NORMODYNE 100 MG) 100 MG Q8H PO (DC) Sertraline HCl (ZOLOFT 50 MG TAB) 100 MG DAILY PO Dextrose (Glutose-15 (40%)) 37.5 ML Q15M PRN PRN BUCCAL Dextrose/Water (DEXTROSE 50% IN WATER 50 ML SYR) 50 ML ASDIR PRN IV (CKD ) Glucagon (GLUCAGON 1 MG/VIAL) 1 MG ASDIR PRN IM Quetiapine Fumarate (SEROquel 100MG TABLET) 100 MG BEDTIME PO Calcium Gluconate (CA GLUCONATE 1 GM/10 ML VIAL) 1,000 MG BOLUS ASDIR PRN IV Physical Exam General appearance: obese (morbidly obese), alert, awake, oriented Diagnosis, Assessment Plan Free Text A P: Assessment: Obstructive sleep apnea Preeclampsia Diabetes mellitus with hyperglycemia 27-week intrauterine Bipolar ADHD DVT risk Recommendations and plan We will empirically try her with CPAP 12 cm of water for her sleep apnea. Have discussed with her it may be worth getting from her prior provider a copy of the sleep study and CPAP titration reports. Ultimately since she is a Medicaid product based on her facesheet she will need a new study to get a new machine in most cases. A home sleep test would be adequate. Blood pressure control per OB and MFM Diabetes with hyperglycemia per site damage prevention technician on case DVT risk: If she is not going to eminently deliver since her BMI is greater than 40 recommend increasing the Lovenox to 40 mg every 12 hours unless contraindicated My findings impression and plan were discussed at length with the patient including recommendations to get her results and that she did should do the home sleep study at her earliest convenience. Although it is most likely that she will be here till she delivers. Case discussed with hospitalist November 25, 2022: She was offered treatment for her sleep apnea overnight which she did not use. We discussed the reasons why. We will attempt to get a nasal mask and hopefully she will be able to use it. Mary with Dr. Hairston at 1029 [facility] #:[id number] END OF REPORT [facility] 2022-11-25 08:04:00 [id number] [place] [address] PATIENT NAME: AMINTA NINO ADMIT DATE: 11/14/22 ACCOUNT NO: [id number] ROOM NO: [facility] AGE: 32 REPORT TYPE: 360 - QUERY RESPONSE DOCUMENT SEX: F ADMITTING PHYSICIAN:Gibran Garnica MD ATTENDING PHYSICIAN:Gibran Garnica MD Provider Query QUERY TEXT: Specificity Heart Failure 360MD Query related questions should be directed to: [facility] Coding Query Helpline The medical record reflects the diagnosis of ''heart failure'' (e.g. Congestive, left, etc.) in the [Insert source document(s) and date(s)], and pertinent studies for type (e.g. echocardiogram, cardiac catheterization, abnormal EF) or pertinent clinical indicators for acuity (e.g. Elevated BNP, IV diuretics, abnormal imaging studies, etc.) Based on your clinical judgment, can you further clarify the type and acuity of the heart failure that represents the clinical indicators listed below? The patient's Clinical Indicators include: Dyspnea Pulmonary Edema 2/2 to possible CHF v pneumonia 2/2 URI on progress note 11/15/22 The estimated ejection fraction is 60-65% with normal wall motion on echo 11/15/22 Furosemide (LASIX) 20 MG X1ED STA IV (DC) on progress note 11/14/22 32yo at 26w1d presented with SOB and orthopnea on consult note 11/15/22 Options provided: -- Systolic, Please specify acuity. -- Diastolic, Please specify acuity. -- Systolic and diastolic, Please specify acuity. -- Left Ventricular Failure -- Biventricular Heart Failure -- High Output Heart Failure -- Right Heart Failure, Please specify acuity and if it is due to left heart failure. -- End Stage Heart Failure -- Other - I will add my own diagnosis -- Dismiss - Not applicable / Not valid -- Dismiss - Clinically unable to determine / Unknown -- Assign to another provider QUERY RESPONSE: The pulmonary edema was felt to be secondary to preeclampsia not heart failure. Query created by: XOCHITL STRICKLAND on 11/18/2022 7:30 AM at 0804 PATIENT NAME: MICAAMINTABLAISE BANEGAS [facility] 2022-11-25 06:54:00 [facility] ([facility] OB Antepartum Prog Note REPORT#:[id number] REPORT STATUS: Signed DATE:11/25/22 TIME: 653 PATIENT: AMINTA NINO UNIT #: [id number] ROOM/BED: [address] : 92 AGE: 32 SEX: F ATTEND: Jak Herrera MD ADM AUTHOR: Darron Santacruz MD * ALL edits or amendments must be made on the electronic/computer document * Subjective Subjective Patient reports: Patient reports: Yes no complaints, Yes normal movement, No abdominal pain, No vaginal bleeding, No leaking fluid, No contractions Objective VS: Last Documented: Result Date Time B/P Mean 98.0 11/25 1210 B/P 133/74 11/25 1210 Pulse 94 11/25 1210 Pulse Ox 98 11/25 913 Temp 98.0 11/25 912 Resp 18 11/24 203 Vital Signs Date Temp Pulse Resp B/P B/P Mean Pulse Ox FiO2 11/24-11/25 98.0-98.4 80-114 18 118-172/57-85 80.0-121.0 82-98 PATIENT WEIGHT: Weight (lb): 250 Weight (oz): Weight (kg): 113.600 Membranes: Intact Abdomen: gravid (obese), soft, no abnormal tenderness, no guarding Lower extremities: Edema: 2+ pitting Calf tenderness: negative Baby A: Baby A baseline: 150 bpm Baby A variability: minimal < or = 5 bpm Baby A accelerations: 15 X 15 (2, and few 10x10) Baby A decelerations: variable Baby A FHR category: category 1 Findings/data: Laboratory Tests: 11/25 11/24 11/24 0622 2058 1452 Chemistry POC Glucose (65 - 110 mg/dL) 212 H 232 H 178 H Diagnosis, Assessment Plan Diagnosis, Assessment Plan Free Text A P: 32 y/o ED[facility] 02-20-23 [facility] at 27 4/7 weeks transported from [place] at 26.2 for sob, orthopnea, pulm edema. PNC w dr cristina clay 1) Pulm edema- echo at sending wnl, pt feels better since adm, had cxr on adm w min pulm edema. PLAN- cpm [BNP <30, recheck also low 3.8] 2) Prematurity- s/p bmz x 2 (9-,6) no mgso4 d/t pulm edema, no need for kiran consult at this time 3) U/S 9-4 gei Coates Cephalic CGA c/w dates UA-PI: 0.95 DVP: 2.7 Anatomy severely limited due to morbid obesity 4) FWB- nst bid 5) DVT prophy- lovenox 40 mg 6) Chr htn r/o YOVANY- bp at home 190/110, since adm bp 120-130/50-70 on labet 100 q8, procardia 30 xl bid. upcr 626, dropped to 241. nl ast/alt, plat. 24hu 554 mg . PLAN- still some labile BPs, continue to follow. 7) IDDM- hgba1c 6.6 at sending 11-13, on lantus 60 bid, humalog 50B, 60L, 70D Consulted rohan, nutrition and DM counselor. 11-25 has dexcon 7 CGM, reviewed w dr madrigal at bedside, PLAN incr lantus to 80 bid, humalog BLD 60, 70, 80 11-24 current: check glu fasting at 1500 and qhs. continue lantus 70 bid, and change humalog 55B, 65L, 75D. NO SSI. fructosamine 198, c-peptide 1.5, insulin level 37.3 (high). He will cont to follow. a1c not useful in preg. 8) ADHD/depression- on seroquel, zoloft 9) sleep apnea--pulm consult, per dr crocker, will have RT bring her an adapter to cpap 10) fatigue--TSH nl, iron studies show bordeline deficiency--will start iron and colace Pt seen and d/w Dr. José at 1456 RPT #:[id number] END OF REPORT [facility] 2022-11-24 14:08:00 [facility] ([facility] Pulmonary Consultation Note REPORT#:[id number] REPORT STATUS: Signed DATE:11/24/22 TIME: 1408 PATIENT: AMINTA NINO UNIT #: [id number] ROOM/BED: [address]: 92 AGE: 32 SEX: F ATTEND: Jak Herrera MD ADM AUTHOR: Roderick Crocker MD * ALL edits or amendments must be made on the electronic/computer document * History of Present Illness HPI Requesting clinician: dr colindres Reason for consult: lu PCP: PCP: Tad Jordan MD HPI: Patient is a 32-year-old woman-0-1-0 who presented to the hospital at 28 she apparently presented to the emergency room with shortness of breath and orthopnea on Tuesday afternoon but apparently her symptoms began on Tuesday. She was being treated for PIH with labetalol and apparently had missed a dose. On the day of presentation she took her blood pressure at home which was 190/ 110. She was evaluated at the outside facility by cardiology had an unremarkable echo was seen by MFOpal and thought had preeclampsia. Pulmonary is currently consulted for evaluation of sleep apnea. She has been diagnosed with sleep apnea for several years. She moved here approximately 2 years ago from [place] and apparently lost her CPAP in the process and has not used it since. Apparently she wakes up snorting and trying to catch her breath. She has witnessed snoring and apnea. And even her mom says at times she had turned blue in the past. Her primary care physician offered her a home sleep study which she has not yet done. Does not currently have a machine at home. She does think her pressure on the CPAP was 12. She does have significant daytime sleepiness in addition to the snoring. This time she is not having any shortness of breath and swelling is improved Overnight pulse ox documented juan was 93 Past medical history: Diabetes mellitus type 2 with hemoglobin A1c's prior to as high as 15 according to the patient. Bipolar disorder and ADHD. Morbid obesity/BMI 48.9 Past surgical history: None. Social history: No tobacco alcohol or drug use. Family history: Mom has MS. Dad has diabetes. Drug allergies: Latex Medications see below Physical examination: This is an obese woman almost cushingoid appearing and body habitus. She is awake alert pleasant not in any distress. Airway is Mallampati 3. Neck is short and thick. Chest is clear to auscultation. Heart is a regular rhythm without murmur rubs or gallops. Abdomen is obese soft nontender. Extremities have no cyanosis clubbing or edema. Neurologically she is awake alert speech is fluent. He can move all extremities History - Adult longitudinal Additional medical history: bipolar, ADHD, OCD DM-taking metformin, insulin, HTN, Obesity Additional surgical history: Denies Alcohol use: Denies EtOH use Drug use: Denies recreational drugs Smoking status for patients 13 years old or older: Never Smoker Allergies: Coded Allergies: latex (SWELLING 11/15/22) Objective Physical Exam Vitals: Vital Signs: Date Time Temp Pulse Resp B/P B/P Pulse O2 O2 Flow FiO2 Mean Ox Delivery Rate 11/24 1345 104.0 11/24 1345 82 146/76 11/24 1344 83 98 11/24 0750 93.0 11/24 0750 76 123/72 11/24 0523 99.0 11/24 0523 74 134/75 11/23 2341 105.0 11/23 2341 82 136/83 11/23 2020 18 98 11/23 1730 103.0 11/23 1730 101 143/79 11/23 1555 108.0 11/23 1555 81 147/80 96 Last Documented: Result Date Time B/P Mean 104.0 11/24 1345 B/P 146/76 11/24 1345 Pulse 82 11/24 1345 Pulse Ox 98 11/24 1344 Resp 18 11/23 2020 Temp 98.3 11/23 0902 Clinically pertinent findings: Current Medications Sig/Deonna Start time Last Medication Dose Route Stop Time Status Admin Insulin Human Lispro 65 UNITS AC MILDRED 11/25 1130 AC SUBQ 01/24 1129 Multivitamin 1 EACH DAILY 11/25 0900 AC Hematinic Therapeutic PO 01/24 0859 Insulin Human Lispro 55 UNITS AC BK 11/25 0730 AC SUBQ 01/24 0729 Docusate Sodium 200 MG BEDTIME 11/24 2100 AC PO 01/23 2059 Insulin Human Lispro 75 UNITS AC DIN 11/24 1630 AC SUBQ 01/23 1629 Insulin Human Lispro 70 UNITS AC DIN 11/23 1630 DC 11/23 SUBQ 01/22 1629 1718 Acetaminophen 650 MG Q4H PRN PRN 11/18 2245 AC 11/18 PO 02/11 0600 2250 Insulin Human Lispro 60 UNITS AC MILDRED 11/18 1130 DC 11/23 SUBQ 01/17 1129 1247 Multivit/ 1 TAB DAILY 11/18 899 AC 11/24 Folic Acid/Iron PO 01/17 0859 0804 Patient Own 2 EACH ASDIR 11/18 0815 AC 11/24 Medication PO 01/17 0814 0814 Docusate Sodium 100 MG BID 11/19 799 DC 11/24 PO 01/17 0759 0805 Insulin Human Lispro 50 UNITS AC BK 11/18 0630 DC 11/24 SUBQ 01/17 0729 0858 Insulin Glargine 70 UNIT BID 11/18 1999 AC 11/24 SUBQ 01/16 195 0806 Hydroxyzine HCl 50 MG BEDTIME PRN 11/16 2100 AC 11/23 PO 01/15 2059 203 Nifedipine 30 MG BID 11/17 1999 AC 11/24 PO 01/15 1959 0805 Enoxaparin Sodium 40 MG DAILY 11/16 171 AC 11/24 SUBQ 12/16 1714 0807 Labetalol HCl 100 MG Q8H 11/16 0945 AC 11/24 PO 01/15 0944 1004 Sertraline HCl 100 MG DAILY 11/16 899 AC 11/24 PO 01/15 0859 0804 Dextrose 37.5 ML Q15M PRN PRN 11/15 2330 AC BUCCAL 01/14 2329 Dextrose/Water 50 ML ASDIR PRN 11/15 2330 CKD IV 01/14 232 Glucagon 1 MG ASDIR PRN 11/15 2330 AC IM 01/14 2329 Quetiapine Fumarate 100 MG BEDTIME 11/15 2315 AC 11/23 PO 01/14 2314 2021 Calcium Gluconate 1,000 MG BOLUS ASDIR PRN 11/15 1745 AC IV General appearance: obese (morbidly obese), alert, awake, oriented, no acute distress, pleasant, conversational Results Findings/Data: Laboratory Tests 11/24 11/23 11/23 11/23 11/23 0521 2240 1503 1326 1326 Chemistry POC Glucose (65 - 110 mg/dL) 223 H 213 H 198 H Iron (37 - 170 MCG/DL) 129 TIBC (265 - 497 MCG/DL) 634 H % Saturation (12 - 57 %) 20 Ferritin (6.24 - 137 NG/ML) 63.3 TSH (0.36 - 3.74) 2.13 11/23 11/23 11/22 1326 0622 1438 Chemistry Sodium (135 - 145 mEq/L) 135 Potassium (3.5 - 5.0 mEq/L) 4.3 Chloride (100 - 115 mEq/L) 100 Carbon Dioxide (22 - 31 mEq/L) 24 Anion Gap (10 - 20) 15.50 BUN (7 - 18 mg/dL) 13 Creatinine (0.5 - 1.0 mg/dL) 0.5 Glomerular Filtr Rate (>60 ml/min) 129 Glucose (65 - 110 mg/dL) 169 H POC Glucose (65 - 110 mg/dL) 156 H Calcium (8.4 - 10.2 mg/dL) 9.3 Total Bilirubin (0.2 - 1.0 mg/dL) 0.3 AST (15 - 37 units/L) 15 ALT (12 - 78 units/L) 18 Total Alk Phosphatase (46 - 116 units/L) 104 B-Natriuretic Peptide (0 - 100 pg/mL) 0.38 Total Protein (6.3 - 8.2 gm/dL) 6.9 Albumin (3.4 - 4.8 gm/dL) 2.7 L Laboratory Tests 11/22 1438 Hematology WBC (6.5 - 12.3 K/mm3) 14.5 H RBC (3.51 - 4.69 M/mm3) 4.77 H Hgb (10.1 - 13.8 g/dL) 13.2 Hct (32.5 - 41.8 %) 37.8 MCV (84.6 - 96.6 fL) 79.2 L MCH (27.3 - 33.9 pg) 27.7 MCHC (32.0 - 34.2 gm/dL) 34.9 H RDW (12.2 - 16.3 %) 13.5 Plt Count (134 - 363 K/mm3) 305 MPV (9.2 - 12.7 fL) 10.1 Neut % (Auto) (57.9 - 77.3 %) 70.7 Lymph % (Auto) (14.5 - 29.7 %) 22.8 [place] % (Auto) (3.6 - 10.2 %) 5.2 Eos % (Auto) (0.0 - 3.0 %) 0.4 Baso % (Auto) (0.1 - 0.9 %) 0.3 Neut # (Auto) (K/mm3) 10.2 Lymph # (Auto) (K/mm3) 3.3 [place] # (Auto) (K/mm3) 0.8 Eos # (Auto) (K/mm3) 0.06 Baso # (Auto) (K/mm3) 0.0 Laboratory Tests 11/23 1326 Serology Rubella Screen (IUnit/ml) 8.2 Laboratory Tests 11/22 11/22 1438 1438 Urines Urine Color (YELLOW) YELLOW Urine Appearance (CLEAR) CLEAR Urine pH (5 - 9) 6.0 Ur Specific Rarden (1.001 - 1.035) 1.023 Urine Protein (NEG) NEGATIVE Urine Glucose (UA) (NEG) NEGATIVE Urine Ketones (NEG) NEGATIVE Urine Blood (NEG) NEG Urine Nitrite (NEG) NEG Urine Bilirubin (NEG) NEGATIVE Urine Urobilinogen (NEG mg/dL) NEGATIVE Ur Leukocyte Esterase (NEG) NEG Urine RBC (NONE SEEN #/hpf) 0-2 Urine WBC (NONE SEEN #/hpf) 3-5 H Ur Epithelial Cells (RARE - FEW #/HPF) RARE Urine Bacteria (RARE - FEW /HPF) RARE Urine Mucus (NONE SEEN) RARE Ur Random Creatinine (mg/dL) 135.6 U Random Total Protein (mg/dL) 30.4 Protein/Creatinin Ratio (<200 mg/gcrea) 224.1 H Laboratory Tests 11/24 11/23 11/23 0521 2240 1503 Chemistry POC Glucose (65 - 110 mg/dL) 223 H 213 H 198 H Radiology Data: Chest x-ray done here which I reviewed shows some pulmonary vascular congestion without ruslan edema or effusion the 1 view Diagnosis, Assessment Plan Free Text DxA P Notes Free Text DxA P Notes: Assessment: Obstructive sleep apnea Preeclampsia Diabetes mellitus with hyperglycemia 27-week intrauterine Bipolar ADHD DVT risk Recommendations and plan We will empirically try her with CPAP 12 cm of water for her sleep apnea. Have discussed with her it may be worth getting from her prior provider a copy of the sleep study and CPAP titration reports. Ultimately since she is a Medicaid product based on her facesheet she will need a new study to get a new machine in most cases. A home sleep test would be adequate. Blood pressure control per OB and MFM Diabetes with hyperglycemia per site damage prevention technician on case DVT risk: If she is not going to eminently deliver since her BMI is greater than 40 recommend increasing the Lovenox to 40 mg every 12 hours unless contraindicated My findings impression and plan were discussed at length with the patient including recommendations to get her results and that she did should do the home sleep study at her earliest convenience. Although it is most likely that she will be here till she delivers. Case discussed with hospitalist at 1421 RPT #:[id number] END OF REPORT [facility] 2022-11-24 11:20:00 [facility] ([facility]) OB Antepartum Prog Note REPORT#:[id number] REPORT STATUS: Signed DATE:11/24/22 TIME: 1120 PATIENT: AMINTA NINO UNIT #: [id number] ROOM/BED: [facility]- : 92 AGE: 32 SEX: F ATTEND: Jak Herrera MD ADM AUTHOR: Juliet Colindres MD * ALL edits or amendments must be made on the electronic/computer document * See Addendum Subjective Subjective Patient reports: Patient reports: Yes no complaints, Yes normal movement, No abdominal pain, No vaginal bleeding, No leaking fluid, No contractions, No headache, No blurred vision, No shortness of breath, No new complaints Comments: no leg pains some fatigue Pt's mom is here and states that pt has sleep apnea, had testing in [place] at [facility], but lost sleep mask between move here. Also, pt's mom says pt will not keep up with glucose monitoring at home, pt's mom has concerns re her compliance. Objective Nursing Documentation Review Nursing data: The data set between the solid lines has been imported from nursing documentation. Any exceptions have been noted below under Provider comments. ROM date: ROM time: Labor onset date: Labor onset time: Provider comments on imported nursing data: [] VS: Last Documented: Result Date Time B/P Mean 93.0 11/24 0750 B/P 123/72 11/24 0750 Pulse 76 11/24 0750 Pulse Ox 98 11/24 2019 Resp 18 11/24 2019 Temp 98.3 11/23 09 Vital Signs Date Temp Pulse Resp B/P B/P Mean Pulse Ox FiO2 11/23-11/24 74-101 18 123-147/71-83 92.0-108.0 96-98 PATIENT WEIGHT: Weight (lb): 250 Weight (oz): Weight (kg): 113.600 Membranes: Intact Uterine activity: Monitor: toco Frequency (description): none HEENT: normocephalic w/o injury, pupils equal, no scleral icterus, buffalo hump Cardiac: regular rate and rhythm Lungs: unlabored breathing Neuro: Exam: alert, oriented x3, normal speech, CNII-XII grossly intact Abdomen: gravid (obese), soft, no abnormal tenderness, no guarding Lower extremities: Edema: 2+ pitting Calf tenderness: negative Baby A: Baby A baseline: 150 bpm Baby A variability: minimal < or = 5 bpm Baby A accelerations: 15 X 15 (2, and few 10x10) Baby A FHR category: category 1 Findings/data: Laboratory Tests: 11/24 11/23 11/23 11/23 11/23 0521 2240 1503 1326 1326 Chemistry POC Glucose (65 - 110 mg/dL) 223 H 213 H 198 H Iron (37 - 170 MCG/DL) 129 TIBC (265 - 497 MCG/DL) 634 H % Saturation (12 - 57 %) 20 Ferritin (6.24 - 137 NG/ML) 63.3 TSH (0.36 - 3.74) 2.13 11/23 1326 Chemistry B-Natriuretic Peptide (0 - 100 pg/mL) 0.38 Serology Rubella Screen (IUnit/ml) 8.2 Diagnosis, Assessment Plan Diagnosis, Assessment Plan Problem List/A P: 1. Diabetes mellitus case management patient 2. Free Text A P: 1. Diabetes mellitus case management patient 2. Free Text A P: 32 y/o [facility] 02-20-23 [facility] at 27 2/7 weeks transported from [place] at 26.2 for sob, orthopnea, pulm edema. PNC w dr cristina clay 1) Pulm edema- echo at sending wnl, pt feels better since adm, had cxr on adm w min pulm edema. PLAN- cpm [BNP <30, recheck also low 3.8] 2) Prematurity- s/p bmz x 2 (11-16,6) no mgso4 d/t pulm edema, no need for kiran consult at this time 3) U/S 11-15 gei Coates Cephalic CGA c/w dates UA-PI: 0.95 DVP: 2.7 Anatomy severely limited due to morbid obesity 4) FWB- nst bid 5) DVT prophy- lovenox 40 mg 6) Chr htn r/o YOVANY- bp at home 190/110, since adm bp 120-130/50-70 on labet 100 q8, procardia 30 xl bid. upcr 626, dropped to 241. nl ast/alt, plat. 24hu 554mg. PLAN- still some labile BPs, continue to follow. 7) IDDM- hgba1c 6.6 at sending 11-13, on lantus 60 bid, humalog 50B, 60L, 70D, glucose higher yesterday. PLAN- Need to increase to 55/65/75, SSI Pt aware has DM, has seen nutrition and DM counselor. 9-13 current: check glu fasting at 1500 and qhs. continue lantus 70 bid, and change humalog 55B, 65L, 75D. NO SSI. fructosamine 198, c-peptide 1.5, insulin level 37.3 (high). He will cont to follow. a1c not useful in preg. 8) ADHD/depression- on seroquel, zoloft 9) sleep apnea--pulm consult 10) fatigue--TSH nl, iron studies show bordeline deficiency--will start iron and colace Pt seen and d/w Dr. José at 1129 Addendum 1: 11/24/22 1139 by Juliet Colindres MD error above, edema is now trace in LE, much improved at 1139 RPT #:[id number] END OF REPORT [facility] 2022-11-23 11:52:00 [facility] ([facility]) OB Antepartum Prog Note REPORT#:[id number] REPORT STATUS: Signed DATE:11/23/22 TIME: 1152 PATIENT: AMINTA NINO UNIT #: [id number] ROOM/BED: [address] : 92 AGE: 32 SEX: F ATTEND: Jak Herrera MD ADM AUTHOR: Juliet Colindres MD * ALL edits or amendments must be made on the electronic/computer document * See Addendum Subjective Subjective Patient reports: Patient reports: Yes normal movement, No abdominal pain, No vaginal bleeding, No leaking fluid, No contractions, No headache, No blurred vision, No shortness of breath Comments: no leg pains Patient says she feels very fatigued, and the site damage prevention technician told her it's because she's "extremely anemic." I told her I was uncertain where this is coming from all Hb 12-13, nl, MCV low--could be iron deficient, but not anemic Objective Nursing Documentation Review Nursing data: The data set between the solid lines has been imported from nursing documentation. Any exceptions have been noted below under Provider comments. ROM date: ROM time: Labor onset date: Labor onset time: Provider comments on imported nursing data: [] VS: Last Documented: Result Date Time B/P Mean 90.0 11/23 0902 B/P 127/75 11/23 0902 Pulse 90 11/23 09 Pulse Ox 96 11/23 0858 Temp 98.3 11/22 1938 Resp 20 11/22 1938 Vital Signs Date Temp Pulse Resp B/P B/P Mean Pulse Ox FiO2 11/22-11/23 97.6-98.6 65-96 17-20 127-143/62-104 87.0-117.0 90-99 PATIENT WEIGHT: Weight (lb): 250 Weight (oz): Weight (kg): 113.600 Membranes: Intact Uterine activity: Monitor: toco Frequency (description): none HEENT: normocephalic w/o injury, pupils equal, no scleral icterus, buffalo hump Cardiac: regular rate and rhythm Lungs: unlabored breathing Neuro: Exam: alert, oriented x3, normal speech, CNII-XII grossly intact Abdomen: gravid (obese), soft, no abnormal tenderness, no guarding Lower extremities: Edema: 2+ pitting Calf tenderness: negative Baby A: Baby A baseline: 150 bpm Baby A variability: moderate 6-25 bpm Baby A accelerations: 15 X 15 Baby A FHR category: category 1 Findings/data: Laboratory Tests: 11/23 11/22 11/22 0622 1438 1438 Chemistry Sodium (135 - 145 mEq/L) 135 Potassium (3.5 - 5.0 mEq/L) 4.3 Chloride (100 - 115 mEq/L) 100 Carbon Dioxide (22 - 31 mEq/L) 24 Anion Gap (10 - 20) 15.50 BUN (7 - 18 mg/dL) 13 Creatinine (0.5 - 1.0 mg/dL) 0.5 Glomerular Filtr Rate (>60 ml/min) 129 Glucose (65 - 110 mg/dL) 169 H POC Glucose (65 - 110 mg/dL) 156 H Calcium (8.4 - 10.2 mg/dL) 9.3 Total Bilirubin (0.2 - 1.0 mg/dL) 0.3 AST (15 - 37 units/L) 15 ALT (12 - 78 units/L) 18 Total Alk Phosphatase (46 - 116 units/L) 104 Total Protein (6.3 - 8.2 gm/dL) 6.9 Albumin (3.4 - 4.8 gm/dL) 2.7 L Hematology WBC (6.5 - 12.3 K/mm3) 14.5 H RBC (3.51 - 4.69 M/mm3) 4.77 H Hgb (10.1 - 13.8 g/dL) 13.2 Hct (32.5 - 41.8 %) 37.8 MCV (84.6 - 96.6 fL) 79.2 L MCH (27.3 - 33.9 pg) 27.7 MCHC (32.0 - 34.2 gm/dL) 34.9 H RDW (12.2 - 16.3 %) 13.5 Plt Count (134 - 363 K/mm3) 305 MPV (9.2 - 12.7 fL) 10.1 Neut % (Auto) (57.9 - 77.3 %) 70.7 Lymph % (Auto) (14.5 - 29.7 %) 22.8 [place] % (Auto) (3.6 - 10.2 %) 5.2 Eos % (Auto) (0.0 - 3.0 %) 0.4 Baso % (Auto) (0.1 - 0.9 %) 0.3 Neut # (Auto) (K/mm3) 10.2 Lymph # (Auto) (K/mm3) 3.3 [place] # (Auto) (K/mm3) 0.8 Eos # (Auto) (K/mm3) 0.06 Baso # (Auto) (K/mm3) 0.0 Urines Urine Color (YELLOW) YELLOW Urine Appearance (CLEAR) CLEAR Urine pH (5 - 9) 6.0 Ur Specific Rarden (1.001 - 1.035) 1.023 Urine Protein (NEG) NEGATIVE Urine Glucose (UA) (NEG) NEGATIVE Urine Ketones (NEG) NEGATIVE Urine Blood (NEG) NEG Urine Nitrite (NEG) NEG Urine Bilirubin (NEG) NEGATIVE Urine Urobilinogen (NEG mg/dL) NEGATIVE Ur Leukocyte Esterase (NEG) NEG Urine RBC (NONE SEEN #/hpf) 0-2 Urine WBC (NONE SEEN #/hpf) 3-5 H Ur Epithelial Cells (RARE - FEW #/HPF) RARE Urine Bacteria (RARE - FEW /HPF) RARE Urine Mucus (NONE SEEN) RARE Ur Random Creatinine (mg/dL) 135.6 U Random Total Protein (mg/dL) 30.4 Protein/Creatinin Ratio (<200 mg/gcrea) 224.1 H Reviewed labs from sending facility: 11/13/22 BNP <30, troponin <4, D-dimer 295, urine pr/cr 438 11/14/22 24 hour urine protein 619 mg 11/15/2022 echo EF 60-65% Here: 11/17 urine pr/cr 389.3 Diagnosis, Assessment Plan Diagnosis, Assessment Plan Problem List/A P: 1. Diabetes mellitus case management patient 2. Free Text A P: 32 y/o [facility] 02-20-23 [facility] at 27 1/7 weeks transported from [place] at 26.2 for sob, orthopnea, pulm edema. PNC w dr cristina clay 1) Pulm edema- echo at sending wnl, pt feels better since adm, had cxr on adm w min pulm edema. PLAN- cpm [BNP <30, will recheck here] 2) Prematurity- s/p bmz x 2 due (11-16,6) no mgso4 d/t pulm edema, no need for kiran consult at this time 3) U/S 11-15 gei Coates Cephalic CGA c/w dates UA-PI: 0.95 DVP: 2.7 Anatomy severely limited due to morbid obesity 4) FWB- nst bid 5) DVT prophy- lovenox 40 mg 6) Chr htn r/o YOVANY- bp at home 190/110, since adm bp 120-130/50-70 on labet 100 q8, procardia 30 xl bid. upcr 626, nl ast/alt, plat. 24hu 554mg. PLAN- rechecking PreE labs today 7) IDDM- hgba1c 6.6 at sending 9-2, on lantus 60 bid, humalog 50B, 60L, 65D 9increasing today from 60), poor control, now glu in 200's since celestone. bmz effect should pass by sat 9-9. PLAN- cpm, SSI Pt aware has DM, has seen nutrition and DM counselor glucose a little high, but improved. 9-12 current: check glu fasting at 1500 and qhs. continue lantus 70 bid, and humalog 50B, 60L, 65D. NO SSI. fructosamine 198, c-peptide 1.5, insulin level 37.3 (high). He will cont to follow. a1c not useful in preg. 8) ADHD/depression- on seroquel, zoloft 9) some concern for sleep apnea--pt wore pulse oximitry last night which measured blood oxygen q 5 min, only one value 93%, the rest >95%. Do not feel this warrants any further inpatient investigation, but pt might pursue outpatient testing when not (in future) 10) fatigue--will get iron studies and TSH Pt seen and d/w Dr. Jerez at 1159 Addendum 1: 11/23/22 1202 by Juliet Colindres MD 6) above, plan--PReE labs checked yesterday, look somewhat improved 7) insulin w dinner increase to 70D at 1203 RPT #:[id number] END OF REPORT [facility] 2022-11-22 12:51:00 [facility] ([facility]) OB Antepartum Prog Note REPORT#:[id number] REPORT STATUS: Signed DATE:11/22/22 TIME: 1251 PATIENT: AMINTA NINO UNIT #: [id number] ROOM/BED: [address] : 92 AGE: 32 SEX: F ATTEND: Jak Herrera MD ADM AUTHOR: Juliet Colindres MD * ALL edits or amendments must be made on the electronic/computer document * See Addendum Subjective Subjective Patient reports: Patient reports: Yes no complaints, Yes normal movement, No abdominal pain, No vaginal bleeding, No leaking fluid, No contractions, No headache, No shortness of breath Comments: no leg pains Objective Nursing Documentation Review Nursing data: The data set between the solid lines has been imported from nursing documentation. Any exceptions have been noted below under Provider comments. ROM date: ROM time: Labor onset date: Labor onset time: Provider comments on imported nursing data: [] VS: Last Documented: Result Date Time Pulse Ox 98 11/22 0835 B/P 130/66 11/22 0835 Temp 98.5 11/22 0835 Pulse 78 11/22 0835 Resp 17 11/22 0835 B/P Mean 90.0 11/22 0759 Vital Signs Date Temp Pulse Resp B/P B/P Mean Pulse Ox FiO2 11/21-11/22 98.0-98.5 73-90 16-18 121-148/58-74 84.0-104.0 98-99 PATIENT WEIGHT: Weight (lb): 250 Weight (oz): Weight (kg): 113.600 Membranes: Intact Uterine activity: Monitor: toco Frequency (description): none HEENT: normocephalic w/o injury, pupils equal, no scleral icterus, buffalo hump Cardiac: regular rate and rhythm Lungs: unlabored breathing Neuro: Exam: alert, oriented x3, normal speech, CNII-XII grossly intact Abdomen: gravid (obese), soft, no abnormal tenderness, no guarding Lower extremities: Edema: 2+ pitting Calf tenderness: negative Baby A: Baby A baseline: 145 bpm Baby A variability: moderate 6-25 bpm Baby A accelerations: 15 X 15 Baby A FHR category: category 1 Diagnosis, Assessment Plan Diagnosis, Assessment Plan Free Text A P: 32 y/o [facility] 02-20-23 [facility] at 27 0/7 weeks transported from [place] at 26.2 for sob, orthopnea, pulm edema. PNC w dr cristina clay 1) Pulm edema- echo at sending wnl, pt feels better since adm, had cxr on adm w min pulm edema. PLAN- cpm 2) Prematurity- s/p bmz x 2 due (11-16,6) no mgso4 d/t pulm edema, no need for kiran consult at this time 3) U/S 11-15 gei Coates Cephalic CGA c/w dates UA-PI: 0.95 DVP: 2.7 Anatomy severely limited due to morbid obesity 4) FWB- nst bid 5) DVT prophy- lovenox 40 mg 6) Chr htn r/o YOVANY- bp at home 190/110, since adm bp 120-130/50-70 on labet 100 q8, procardia 30 xl bid. upcr 626, nl ast/alt, plat. 24hu 554mg. PLAN- rechecking PreE labs today 7) IDDM- hgba1c 6.6 at sending -, on lantus 60 bid, humalog 50B, 60L, 65D 9increasing today from 60), poor control, now glu in 200's since celestone. bmz effect should pass by sat 11-20. PLAN- cpm, SSI Pt aware has DM, has seen nutrition and DM counselor glucose a little high, but improved. 9-11 current: check glu fasting at 1500 and qhs. continue lantus 70 bid, and humalog 50B, 60L, 65D. NO SSI. fructosamine 198, c-peptide 1.5, insulin level 37.3 (high). He will cont to follow. a1c not useful in preg. Checking POReE labs today 8) ADHD/depression- on seroquel, zoloft Pt seen and d/w Dr. Ochoa at 1257 Addendum 1: 11/22/22 1627 by Juliet Colindres MD Laboratory Tests: 11/22 11/22 1438 0849 Chemistry Sodium (135 - 145 mEq/L) 135 Potassium (3.5 - 5.0 mEq/L) 4.3 Chloride (100 - 115 mEq/L) 100 Carbon Dioxide (22 - 31 mEq/L) 24 Anion Gap (10 - 20) 15.50 BUN (7 - 18 mg/dL) 13 Creatinine (0.5 - 1.0 mg/dL) 0.5 Glomerular Filtr Rate (>60 ml/min) 129 Glucose (65 - 110 mg/dL) 169 H POC Glucose (65 - 110 mg/dL) 125 H Calcium (8.4 - 10.2 mg/dL) 9.3 Total Bilirubin (0.2 - 1.0 mg/dL) 0.3 AST (15 - 37 units/L) 15 ALT (12 - 78 units/L) 18 Total Alk Phosphatase (46 - 116 units/L) 104 Total Protein (6.3 - 8.2 gm/dL) 6.9 Albumin (3.4 - 4.8 gm/dL) 2.7 L Hematology WBC (6.5 - 12.3 K/mm3) 14.5 H RBC (3.51 - 4.69 M/mm3) 4.77 H Hgb (10.1 - 13.8 g/dL) 13.2 Hct (32.5 - 41.8 %) 37.8 MCV (84.6 - 96.6 fL) 79.2 L MCH (27.3 - 33.9 pg) 27.7 MCHC (32.0 - 34.2 gm/dL) 34.9 H RDW (12.2 - 16.3 %) 13.5 Plt Count (134 - 363 K/mm3) 305 MPV (9.2 - 12.7 fL) 10.1 Neut % (Auto) (57.9 - 77.3 %) 70.7 Lymph % (Auto) (14.5 - 29.7 %) 22.8 [place] % (Auto) (3.6 - 10.2 %) 5.2 Eos % (Auto) (0.0 - 3.0 %) 0.4 Baso % (Auto) (0.1 - 0.9 %) 0.3 Neut # (Auto) (K/mm3) 10.2 Lymph # (Auto) (K/mm3) 3.3 [place] # (Auto) (K/mm3) 0.8 Eos # (Auto) (K/mm3) 0.06 Baso # (Auto) (K/mm3) 0.0 Urines Urine Color (YELLOW) YELLOW Urine Appearance (CLEAR) CLEAR Urine pH (5 - 9) 6.0 Ur Specific Rarden (1.001 - 1.035) 1.023 Urine Protein (NEG) NEGATIVE Urine Glucose (UA) (NEG) NEGATIVE Urine Ketones (NEG) NEGATIVE Urine Blood (NEG) NEG Urine Nitrite (NEG) NEG Urine Bilirubin (NEG) NEGATIVE Urine Urobilinogen (NEG mg/dL) NEGATIVE Ur Leukocyte Esterase (NEG) NEG Urine RBC (NONE SEEN #/hpf) 0-2 Urine WBC (NONE SEEN #/hpf) 3-5 H Ur Epithelial Cells (RARE - FEW #/HPF) RARE Urine Bacteria (RARE - FEW /HPF) RARE Urine Mucus (NONE SEEN) RARE await pr/cr ratio also, pt w BMI of 49, some concern of sleep apnea--have d/w pulm to start by getting pulse ox at night to see if desaturates, and if so to contact for consult. at 1628 [facility] #:[id number] END OF REPORT [facility] 2022-11-21 10:41:00 [id number] [address] PATIENT NAME: AMINTA NINO ADMIT DATE: 11/15/22 ACCOUNT NO: [id number] ROOM NO: 5048 AGE: 32 SEX: F ADMITTING PHYSICIAN: Jak Herrera MD ATTENDING PHYSICIAN: Jak Herrera MD DATE: 11/21/2022 ANTEPARTUM PROGRESS REPORT ATTENDING PHYSICIAN: [facility]. TIME OF EVALUATION: At approximately 10:20 a.m. SUBJECTIVE: The patient is a 32-year-old at 27 weeks, vertex with history of obesity, preeclampsia without severity, insulin-dependent diabetes, ADHD. She denies any headache, blurred vision, scotomata or epigastric pain. OBJECTIVE: VITAL SIGNS: Stable. She is afebrile. Her last pulse 73, respiratory rate 18, blood pressure 121/58. She is a diabetic, her glucoses have been 96 to 162. ABDOMEN: Soft, nontender. Strip shows moderate xhmt-xo-lwae variability, positive accels. No regular contractions. PLAN: We will continue current care. Dictated By: Jose Roberto Webber MD Date Dictated: 11/21/2022 10:41:04 Date Transcribed: 11/21/2022 10:55:37 LOAN PROCESSOR//JAMAL Receipt ID: [id number] Authenticated by Jose Roberto Webber MD On 11/21/2022 09:32:14 PM at 0932 PATIENT NAME: AMINTA NINO [facility] 2022-11-20 11:18:00 [id number] [facility] [place] [address] PATIENT NAME: AMINTA NINO ADMIT DATE: 11/15/22 ACCOUNT NO: [id number] ROOM NO: 5048 AGE: 32 SEX: F ADMITTING PHYSICIAN: Jak Herrera MD ATTENDING PHYSICIAN: Jak Herrera MD DATE: 11/20/2022 ANTEPARTUM REPORT ATTENDING PHYSICIAN: [facility] TIME OF EVALUATION: At approximately 10:55 a.m. SUBJECTIVE: The patient is a 32-year-old at 26 and 6/7th weeks, last noted to be vertex with preeclampsia without severity, insulin-dependent diabetes, history of bipolar, history of ADHD. Currently, she states good movement. She denies any headache, blurred vision, scotomata, or epigastric pain. OBJECTIVE: VITAL SIGNS: Stable. She is afebrile. Her last temperature 98.0, pulse 78, respiratory rate 18, blood pressure 146/77, prior blood pressure 128/61. ABDOMEN: Soft, nontender. Strip shows positive accels, no regular contractions. LABORATORY DATA: Blood glucoses have been somewhat labile. C-peptide was 1.5. Glucoses ranged from 124 to 228. Endocrinology has been consulted. PLAN: We will continue current care. Dictated By: Jose Roberto Webber MD Date Dictated: 11/20/2022 11:18:43 Date Transcribed: 11/20/2022 11:44:50 LOAN PROCESSOR/ABHAY/JAMAL Receipt ID: [id number] Authenticated by Jose Roberto Webber MD On 11/21/2022 09:32:14 PM at 0932 PATIENT NAME: AMINTA NINO [facility] 2022-11-19 15:24:00 [facility] OB Antepartum Prog Note REPORT#:[id number] REPORT STATUS: Signed DATE:11/19/22 TIME: 1524 PATIENT: AMINTA NINO UNIT #: [id number] ROOM/BED: [address] : 92 AGE: 32 SEX: F ATTEND: Jak Herrera MD ADM AUTHOR: Juliet Colindres MD * ALL edits or amendments must be made on the electronic/computer document * Subjective Subjective Patient reports: Patient reports: Yes: normal movement. No: complaints, abdominal pain, vaginal bleeding , leaking fluid, contractions, shortness of breath. Objective Nursing Documentation Review Nursing data: The data set between the solid lines has been imported from nursing documentation. Any exceptions have been noted below under Provider comments. ROM date: ROM time: Labor onset date: Labor onset time: Provider comments on imported nursing data: [] VS: Last Documented: Result Date Time B/P Mean 85.0 11/19 1209 Pulse Ox 97 11/19 1209 B/P 123/64 11/19 1209 Pulse 83 11/19 1209 Temp 98.0 11/18 2117 Resp 18 11/16 1235 Vital Signs Date Temp Pulse Resp B/P B/P Mean Pulse Ox FiO2 11/18-11/19 98.0 66-83 115-149/55-70 77.0-100.0 94-100 PATIENT WEIGHT: Weight (lb): 250 Weight (oz): Weight (kg): 113.600 Membranes: Intact Uterine activity: Monitor: toco Frequency (description): none HEENT: normocephalic w/o injury, pupils equal, no scleral icterus, buffalo hump Cardiac: regular rate and rhythm Lungs: unlabored breathing Neuro: Exam: alert, oriented x3, normal speech, CNII-XII grossly intact Abdomen: gravid (obese), soft, no abnormal tenderness Lower extremities: Edema: 2+ pitting Calf tenderness: negative Baby A: Baby A baseline: 150 bpm Baby A variability: moderate 6-25 bpm Baby A accelerations: 10 X 10 Baby A decelerations: variable Baby A FHR category: category 1 Findings/data: Laboratory Tests: 11/19 11/19 11/18 1455 0651 2126 Chemistry POC Glucose (65 - 110 mg/dL) 124 H 138 H 175 H Diagnosis, Assessment Plan Diagnosis, Assessment Plan Free text A P: 32 y/o [facility] 02-20-23 [facility] at 26 5/7 weeks transported from [place] at 26.2 for sob, orthopnea, pulm edema. PNC w dr cristina clay 1) Pulm edema- echo at sending wnl, pt feels better since adm, had cxr on adm w min pulm edema. PLAN- cpm 2) Prematurity- s/p bmz x 2 due (11-16,6) no mgso4 d/t pulm edema, no need for kiran consult at this time 3) U/S 9-4 gei Coates Cephalic CGA c/w dates UA-PI: 0.95 DVP: 2.7 Anatomy severely limited due to morbid obesity 4) FWB- nst bid 5) DVT prophy- lovenox 40 mg 6) Chr htn r/o YOVANY- bp at home 190/110, since adm bp 120-130/50-70 on labet 100 q8, procardia 30 xl bid. upcr 626, nl ast/alt, plat. 24hu 554mg. PLAN- cpm 7) IDDM- hgba1c 6.6 at sending -2, on lantus 60 bid, humalog 50B, 60L, 60D, poor control, now glu in 200's since celestone. bmz effect should pass by sat 9- 9. PLAN- cpm, SSI Pt aware has DM, has seen nutrition and DM counselor glucose a little high, but improved. 9-8 current: check glu fasting at 1500 and qhs. continue lantus 70 bid, and humalog 50B, 60L, 60D. NO SSI. Ordered fructosamine, c-peptime, insulin level. He will cont to follow. a1c not useful in preg, 8) ADHD/depression- on seroquel, zoloft Pt seen and d/w dr josé at 1529 RPT #:[id number] END OF REPORT [facility] 2022-11-18 06:43:00 [facility] ([facility]) OB Antepartum Prog Note REPORT#:[id number] REPORT STATUS: Signed DATE:11/18/22 TIME: 0643 PATIENT: AMINTA NINO UNIT #: [id number] ROOM/BED: [address] : 92 AGE: 32 SEX: F ATTEND: Jak Herrera MD ADM AUTHOR: Darron Santacruz MD * ALL edits or amendments must be made on the electronic/computer document * Subjective Subjective Patient reports: Patient reports: Yes no complaints, Yes normal movement, No abdominal pain, No vaginal bleeding, No leaking fluid, No contractions Objective VS: Last Documented: Result Date Time B/P Mean 89.0 11/18 1229 B/P 120/73 11/18 1229 Pulse 70 11/18 1229 Pulse Ox 100 11/18 0804 Temp 98.1 11/17 2000 Resp 18 11/16 1235 Vital Signs Date Temp Pulse Resp B/P B/P Mean Pulse Ox FiO2 11/17-11/18 98.1 70-241 112-139/58-73 81.0-97.0 82-100 PATIENT WEIGHT: Weight (lb): 250 Weight (oz): Weight (kg): 113.600 Membranes: Intact Abdomen: gravid (obese), no abnormal tenderness Lower extremities: Edema: 2+ pitting Calf tenderness: negative Baby A: Baby A FHR category: category 1 Findings/data: Laboratory Tests: 11/18 11/18 11/17 11/17 11/17 1105 0634 2229 2030 2030 Chemistry Creatinine (0.5 - 1.0 mg/dL) 0.6 POC Glucose (65 - 110 mg/dL) 90 175 H 186 H Urines Ur Random Creatinine (mg/dL) 54.7 54.7 U Random Total Protein (mg/dL) 21.3 21.3 Urine Total Volume (ML) 2600 Creatinine Clearance (70 - 120 ml/min) 164 H Ur Total Protein 24 Hr (20 - 150 554 *H mg/24HR) Protein/Creatinin Ratio (<200 mg/gcrea) 389.3 H 11/17 11/17 11/17 1909 1655 1537 Chemistry POC Glucose (65 - 110 mg/dL) 259 H 191 H 234 H Microbiology: Date/Time Procedure - Status Source Growth 11/17 1556 Wet Prep - COMP VAGINAL Diagnosis, Assessment Plan Diagnosis, Assessment Plan Free Text A P: 32 y/o [facility] 02-20[birth year]23 [facility] at 26 4/7 weeks transported from [place] at 26.2 for sob, orthopnea, pulm edema. PNC w dr cristina clay 1) Pulm edema- echo at sending wnl, pt feels better since adm, had cxr on adm w min pulm edema. PLAN- cpm 2) Prematurity- s/p bmz x 2 due (11-16,6) no mgso4 d/t pulm edema, no need for kiran consult at this time 3) U/S 11-15 gei Coates Cephalic CGA c/w dates UA-PI: 0.95 DVP: 2.7 Anatomy severely limited due to morbid obesity 4) FWB- nst bid 5) DVT prophy- lovenox 40 mg 6) Chr htn r/o YOVANY- bp at home 190/110, since adm bp 120-130/50-70 on labet 100 q8, procardia 30 xl bid. upcr 626, nl ast/alt, plat. 24hu 554mg. PLAN- cpm 7) IDDM- hgba1c 6.6 at sending 11-13, on lantus 60 bid, humalog 50B, 60L, 60D, poor control, now glu in 200's since celestone. bmz effect should pass by sat 11-20. PLAN- cpm, SSI 11-18 we met w pt and dr madrigal. see his note in paper chart. His rec: is to check glu fasting at 1500 and qhs. continue lantus 70 bid, and humalog 50B, 60L, 60D. NO SSI. Ordered fructosamine, c-peptime, insulin level. He will cont to follow. a1c not useful in preg, 8) ADHD/depression- on seroquel, zoloft Pt seen and d/w dr josé at 1456 RPT #:[id number] END OF REPORT [facility] 2022-11-17 06:46:00 [facility] OB Antepartum Prog Note REPORT#:[id number] REPORT STATUS: Signed DATE:11/17/22 TIME: 645 PATIENT: AMINTA NINO UNIT #: [id number] ROOM/BED: 5048-A : 92 AGE: 32 SEX: F ATTEND: Jak Herrera MD ADM AUTHOR: Darron Santacruz MD * ALL edits or amendments must be made on the electronic/computer document * Subjective Subjective Patient reports: Patient reports: Yes normal movement, No abdominal pain, No vaginal bleeding, No leaking fluid, No contractions Comments: c/o vag d/s ? yeast Objective VS: Last Documented: Result Date Time B/P Mean 88.0 11/17 1203 B/P 126/61 11/17 1203 Pulse 81 11/17 1203 Pulse Ox 99 11/17 1202 Resp 18 11/16 1235 Temp 98.6 11/15 1600 Vital Signs Date Temp Pulse Resp B/P B/P Mean Pulse Ox FiO2 /-11/17 71-81 116-172/56-77 81.0-111.0 98-99 PATIENT WEIGHT: Weight (lb): 250 Weight (oz): Weight (kg): 113.600 Membranes: Intact Abdomen: gravid (obese), no abnormal tenderness Lower extremities: Edema: 2+ pitting Calf tenderness: negative Baby A: Baby A FHR category: category 1 Diagnosis, Assessment Plan Diagnosis, Assessment Plan Free Text A P: 32 y/o [facility] 02-20-23 [facility] at 26 3/7 weeks transported from [place] at 26.2 for sob, orthopnea, pulm edema. PNC w dr cristina clay 1) Pulm edema- echo at sending wnl, pt feels better since adm, had cxr on adm w min pulm edema. PLAN- cpm 2) Prematurity- bmz # 2 due 11-17, no mgso4 d/t pulm edema, no need for kiran consult at this pt 3) U/S - gei OB US;Coates Cephalic CGA c/w dates UA-PI: 0.95 DVP: 2.7 Anatomy severely limited due to morbid obesity 4) FWB- nst bid 5) DVT prophy- lovenox 40 mg 6) Chr htn- bp at home 190/110, since adm bp 120-130/50-70 on labet 100 q8, procardia 30 xl bid. upcr 626, r/o mild YOVANY, nl ast/alt, plat. PLAN- 24hu in progress 7) IDDM- on lantus 60 bid humalo 50B, 60L, 60D, poor control, now glu in 200's since celestone. PLAN- cpm, SSI, ck hgba1c and fructosamine in am, consult w dr madrigal in am 8) ADHA/depression- on seroquel, zoloft Pt seen and d/w dr josé at 1839 RPT #:[id number] END OF REPORT [facility] 2022-11-16 09:12:00 [facility] ([facility] OB Antepartum Prog Note REPORT#:[id number] REPORT STATUS: Signed DATE:11/16/22 TIME: 911 PATIENT: AMINTA NINO UNIT #: [id number] ROOM/BED: [address] : 92 AGE: 32 SEX: F ATTEND: Jak Herrera MD ADM AUTHOR: Darron Santacruz MD * ALL edits or amendments must be made on the electronic/computer document * Subjective Subjective Patient reports: Patient reports: Yes no complaints, Yes normal movement, No abdominal pain, No vaginal bleeding, No leaking fluid, No contractions Comments: feels better Objective VS: Last Documented: Result Date Time B/P Mean 96.0 11/16 1235 B/P 128/75 11/16 1235 Pulse 88 11/16 1235 Pulse Ox 98 11/15 1805 Resp 17 11/15 1805 Temp 98.6 11/15 1600 Vital Signs Date Temp Pulse Resp B/P B/P Mean Pulse Ox FiO2 11/15-11/16 86-93 17 117-139/55-75 79.0-100.0 98 PATIENT WEIGHT: Weight (lb): 250 Weight (oz): Weight (kg): 113.600 Membranes: Intact Abdomen: gravid (obese), no abnormal tenderness Lower extremities: Edema: 2+ pitting Calf tenderness: negative Baby A: Baby A FHR category: category 1 Findings/data: Laboratory Tests: 11/16 11/16 11/16 11/16 11/16 1544 1221 1034 5171 0306 Chemistry Sodium (135 - 145 mEq/L) 132 L Potassium (3.5 - 5.0 mEq/L) 4.1 Chloride (100 - 115 mEq/L) 101 Carbon Dioxide (22 - 31 mEq/L) 17 L Anion Gap (10 - 20) 18.00 BUN (7 - 18 mg/dL) 13 Creatinine (0.5 - 1.0 mg/dL) 0.6 Glomerular Filtr Rate (>60 ml/min) 124 Glucose (65 - 110 mg/dL) 236 H POC Glucose (65 - 110 mg/dL) 247 H 222 H 198 H 188 H Calcium (8.4 - 10.2 mg/dL) 9.2 Total Bilirubin (0.2 - 1.0 mg/dL) 0.4 AST (15 - 37 units/L) 13 L ALT (12 - 78 units/L) 15 Total Alk Phosphatase (46 - 116 99 units/L) Total Protein (6.3 - 8.2 gm/dL) 7.1 Albumin (3.4 - 4.8 gm/dL) 2.9 L Hematology WBC (6.5 - 12.3 K/mm3) 14.4 H RBC (3.51 - 4.69 M/mm3) 4.47 Hgb (10.1 - 13.8 g/dL) 12.1 Hct (32.5 - 41.8 %) 35.8 MCV (84.6 - 96.6 fL) 80.1 L MCH (27.3 - 33.9 pg) 27.1 L MCHC (32.0 - 34.2 gm/dL) 33.8 RDW (12.2 - 16.3 %) 13.7 Plt Count (134 - 363 K/mm3) 339 MPV (9.2 - 12.7 fL) 10.1 Neut % (Auto) (57.9 - 77.3 %) 82.2 H Lymph % (Auto) (14.5 - 29.7 %) 12.8 L [place] % (Auto) (3.6 - 10.2 %) 3.1 L Eos % (Auto) (0.0 - 3.0 %) 0.3 Baso % (Auto) (0.1 - 0.9 %) 0.2 Neut # (Auto) (K/mm3) 11.8 Lymph # (Auto) (K/mm3) 1.8 [place] # (Auto) (K/mm3) 0.4 Eos # (Auto) (K/mm3) 0.04 Baso # (Auto) (K/mm3) 0.0 Urines Ur Random Creatinine (mg/dL) 57.7 U Random Total Protein (mg/dL) 36.1 Protein/Creatinin Ratio (<200 625.6 H mg/gcrea) 11/15 2243 Chemistry POC Glucose (65 - 110 mg/dL) 258 H Diagnosis, Assessment Plan Diagnosis, Assessment Plan Free Text A P: 32 y/o [facility] 02-20-23 [facility] at 26 2/7 weeks transported from [place] at 26.2 for sob, orthopnea, pulm edema. PNC w dr cristina clay 1) Pulm edema- echo at sending wnl, pt feels better since adm, had cxr on adm w min pulm edema. PLAN- cpm 2) Prematurity- bmz # 2 due 11-17, no mgso4 d/t pulm edema, no need for kiran consult at this pt 3) U/S 11-15 gei OB US;Coates Cephalic CGA c/w dates UA-PI: 0.95 DVP: 2.7 Anatomy severely limited due to morbid obesity 4) FWB- nst bid 5) DVT prophy- lovenox 40 mg 6) Chr htn- bp at home 190/110, since adm bp 120-130/50-70 on labet 100 q8, procardia 30 xl bid. upcr 626, r/o mild YOVANY, nl ast/alt, plat. PLAN- 24hu in progress 7) IDDM- on lantus 60 bid humalo 50B, 60L, 60D, poor control, now glu in 200's since celestone. PLAN- cpm, SSI, ck hgba1c, consider consult w dr madrigal 8) ADHA/depression- on seroquel, zoloft Pt seen and d/w dr josé at 1816 RPT #:[id number] END OF REPORT [facility] 2022-11-15 23:19:00 [facility] ([facility] Consultation Note REPORT#:[id number] REPORT STATUS: Signed DATE:11/15/22 TIME: 2318 PATIENT: AMINTA NINO UNIT #: [id number] ROOM/BED: [address] : 92 AGE: 32 SEX: F ATTEND: Jak Herrera MD ADM AUTHOR: Jak Herrera MD * ALL edits or amendments must be made on the electronic/computer document * History of Present Illness HPI Chief complaint: Transferred for [facility] HPI: H/O diabetes H/O obesity H/O recent episode of pneumonia History Past History Allergies: Coded Allergies: latex (SWELLING 11/15/22) Objective Physical Exam VS/I O: Last Documented: Result Date Time B/P Mean 88.0 11/16 2247 B/P 139/61 11/158 Pulse 93 11/16 2247 Pulse Ox 98 11/15 1805 Resp 17 11/15 1805 Temp 98.6 11/15 1600 PATIENT WEIGHT: Weight (lb): 250 Weight (oz): Weight (kg): 113.600 Results Findings/Data: Laboratory Tests 11/15 11/15 11/15 2243 1738 1641 Chemistry Sodium (135 - 145 mEq/L) 136 Potassium (3.5 - 5.0 mEq/L) 4.2 Chloride (100 - 115 mEq/L) 102 Carbon Dioxide (22 - 31 mEq/L) 21 L Anion Gap (10 - 20) 17.40 BUN (7 - 18 mg/dL) 7 Creatinine (0.5 - 1.0 mg/dL) 0.4 L Glomerular Filtr Rate (>60 ml/min) 136 Glucose (65 - 110 mg/dL) 120 H POC Glucose (65 - 110 mg/dL) 258 H 136 H Calcium (8.4 - 10.2 mg/dL) 8.8 Total Bilirubin (0.2 - 1.0 mg/dL) 0.4 AST (15 - 37 units/L) 17 ALT (12 - 78 units/L) 17 Total Alk Phosphatase (46 - 116 units/L) 96 Total Protein (6.3 - 8.2 gm/dL) 7.0 Albumin (3.4 - 4.8 gm/dL) 2.8 L Laboratory Tests 11/15 1641 Hematology WBC (6.5 - 12.3 K/mm3) 12.0 RBC (3.51 - 4.69 M/mm3) 4.51 Hgb (10.1 - 13.8 g/dL) 12.1 Hct (32.5 - 41.8 %) 35.6 MCV (84.6 - 96.6 fL) 78.9 L MCH (27.3 - 33.9 pg) 26.8 L MCHC (32.0 - 34.2 gm/dL) 34.0 RDW (12.2 - 16.3 %) 13.6 Plt Count (134 - 363 K/mm3) 325 MPV (9.2 - 12.7 fL) 9.3 Neut % (Auto) (57.9 - 77.3 %) 82.9 H Lymph % (Auto) (14.5 - 29.7 %) 13.1 L [place] % (Auto) (3.6 - 10.2 %) 2.5 L Eos % (Auto) (0.0 - 3.0 %) 0.2 Baso % (Auto) (0.1 - 0.9 %) 0.3 Neut # (Auto) (K/mm3) 10.0 Lymph # (Auto) (K/mm3) 1.6 [place] # (Auto) (K/mm3) 0.3 Eos # (Auto) (K/mm3) 0.02 Baso # (Auto) (K/mm3) 0.0 Laboratory Tests 11/15 164 Serology Treponema pallidum Ab (NONREACTIVE) NONREACTIVE Hep Bs Antigen (NONREACTIVE) NONREACTIVE Hepatitis C Antibody (NONREACTIVE) NONREACTIVE Hep C Ab Signal/Cutoff (<0.80) 0.04 HIV 1 2 Antibody (NONREACTIVE) NONREACTIVE Laboratory Tests 11/15 1641 Urines Ur Random Creatinine (mg/dL) 37.6 U Random Total Protein (mg/dL) 13.9 Protein/Creatinin Ratio (<200 mg/gcrea) 369.6 H Radiology data: Recent Impressions: RADIOLOGY - XR CHEST 1 V 11/15 7245 Report Impression - Status: SIGNED Entered: 11/15/2022 4762 IMPRESSION: Shallow inspiration with pulmonary vascular congestion. Mild edema could be present. No confluent pulmonary infiltrates. Impression By: [email or web address] - Michelet Franz MD OB US; -Coates -Cephalic -CGA c/w dates -UA-PI: 0.95 -DVP: 2.7 -Anatomy severely limited due to morbid obesity Diagnosis, Assessment Plan Diagnosis, Assessment Plan Free Text A P: A/P 1- 2-SIUP at 26 1/7 weeks 3-PIH w/o features of severity 4-Class B DM; 5-Severe obesity / Excessive MWG 6-LU Plan: 1-Diabetic diet 2000 Florencio 2-Sliding scale of Humalog 3-D/C Higgins 4-Labs in AM 5-Respiratory consult for CPAP at night at 2337 RPT #:[id number] END OF REPORT [facility] 2022-11-15 16:48:00 [facility] ([facility] Clinical Note REPORT#:[id number] REPORT STATUS: Signed DATE:11/15/22 TIME: 1647 PATIENT: AMINTA NINO UNIT #: [id number] ROOM/BED: [address] : 92 AGE: 32 SEX: F ATTEND: Jak Herrera MD ADM AUTHOR: Martín Terry MD * ALL edits or amendments must be made on the electronic/computer document * Clinical Note Note: Hospitalist Note (H P dictated:[id number]): 32 y/o Ab1 Lc0, accepted in transfer for [facility] (Dr. Herrera) from [place]. She had been admitted there 2 days ago for dyspnea and was found to have CXR findings suggestive of Pulmonary Edema or pneumonia. She has been afebrile with normal WBC and no cough or increased sputum production. She is chronic hypertension on Labetolol 150mg with normal BP on arrival but reported home BP elevations. She had 24 hour urine protein of 616 mg/24 hours. She has only been on oral Augmentin 875mg bid. She takes Zoloft 100 mg daily and Seroquel 50mg at bedtime for sleep. Her MD in [place] wished her transferred for management of her diabetes, hypertension and possible PIH at 26 1/7 weeks. Plan: As she has not had a repeat CXR since admission over 2 days ago I feel we should move on to a quality study as soon as her initial evaluation and determination of her and baby's condition can be completed. Dr. Herrera will be contacted for order plans and Insulin dosaging. at 1701 [facility] #:[id number] END OF REPORT [facility] 2022-11-15 16:47:00 [id number] [facility] [place] [address] PATIENT NAME: AMINTA NINO ADMIT DATE: 11/15/22 ACCOUNT NO: [id number] ROOM NO: F.5048 AGE: 32 SEX: F ADMITTING PHYSICIAN: Jak Herrera MD ATTENDING PHYSICIAN: Jak Herrera MD ADMISSION DATE: 11/15/2022 00:00:00 CHIEF COMPLAINT: Shortness of breath, hypertension, diabetes, 26 weeks . HISTORY OF PRESENT ILLNESS: The patient is a 32-year-old 2, para 0-0-1-0, at 26 weeks and 1 day, who presented 3 days ago to the emergency room with shortness of breath and orthopnea for approximately 24 hours on Tuesday afternoon. The patient states that her symptoms began on Tuesday when she omitted her labetalol dosage. She said she had significant lower extremity swelling. She took her blood pressure at home, which she felt was 190/110. She took her home dose of labetalol and came in the next day when shortness of breath worsened. Upon presentation to the hospital in [place], she was admitted and cardiology consulted to evaluate possible pulmonary edema and possible heart failure. Maternal medicine was consulted due to increasing blood pressure, increased 24-hour urine protein output, and suspicious for superimposed preeclampsia. The patient is feeling much improved from initial admission and denies current dyspnea, headache, vision change, or right upper quadrant pain. She feels baby is quite active and does not notice contractions, loss of fluid, or vaginal bleeding. She has a history of diabetes adult onset and is currently on insulin for control. She was found to have elevated blood pressures at 6-7 weeks in this compatible with chronic hypertension. She describes loss of her first at approximately 7 weeks, told this was due to her diabetes control. No genetic studies are known. She has had echocardiogram done on the day of transfer, which verbal report was negative. PAST MEDICAL HISTORY: She has a diagnosis of bipolar disorder and ADHD. PAST SURGICAL HISTORY: The patient has had no surgeries. MEDICATIONS: She takes Seroquel daily 50 mg as well as sertraline (Zoloft) 100 mg daily. She is on insulin therapy at this point, using 50 units of Humalog subcu each morning, 60 units of Lispro twice a day, and arginine insulin Lantus at this time not using. She has been on labetalol 150 mg orally each day. She is also currently on Lovenox for thrombosis prophylaxis. REVIEW OF SYSTEMS: GENERAL: The patient has obesity issues. RESPIRATORY: No upper respiratory symptoms. She denies specific cough, denies sputum production, denies significant chest pain although does have some dyspnea. CARDIAC: She is unaware of elevated blood pressures prior to this . She has no known cardiac irregularities and has previously not been on PATIENT NAME: AMINTA NINO antihypertensive drugs. GASTROINTESTINAL: Usual related symptoms. GENITOURINARY: No irritative or obstructive urinary symptoms, no abnormal bleeding. MUSCULOSKELETAL: Negative. PHYSICAL EXAMINATION: VITAL SIGNS: On arrival, her blood pressure is 115/56, with a heart rate of 92, a temperature of 98.6, her oxygen saturation is 99% on room air. GENERAL: She is alert, conversational, and cooperative. HEENT: The patient has extensive rosacea. Mucous membranes are healthy appearing. NECK: The thyroid is not palpable. She has quite a short neck. CARDIOVASCULAR: Regular cardiac rhythm is audible. She comes with a recent electrocardiogram showing sinus tachycardia. RESPIRATORY: She has fair expansion considering her size and position in bed. There is no obvious consolidation on auscultation. BREASTS: Reveal changes of , with no specific masses. ABDOMEN: Quite obese, and positions of the baby and uterus are indeterminate. heart tones are heard in the mid epigastrium above the umbilicus, with heart rate of 160, with accelerations, good variability, and very aggressive movements heard. PELVIC: Deferred at this time. EXTREMITIES: Show moderate edema. Pulses are present overall. Deep tendon reflexes are normal, brisk. IMPRESSION: Intrauterine at 26 weeks and 1 day based on early ultrasound clinical growth and landmarks in this patient with insulin-dependent diabetes, chronic hypertension, on labetalol, attention-deficit hyperactivity disorder and depression, on medications, and dyspnea with x-ray findings suggestive of pneumonia versus pulmonary edema. PLAN: The patient is admitted to the antepartum unit under the care of Dr. Herrera. Chest x-ray would be obtained on her admission. At this time, her oxygen saturation is excellent, and she has no respiratory distress to suggest a significant pulmonary problem. Baby is quite active, although she reports baby is in the growth restricted percentile. She is currently receiving Lovenox prophylaxis. Dictated By: aMrtín Terry MD Date Dictated: 11/15/2022 16:47:24 Date Transcribed: 11/15/2022 17:18:33 /[facility] Receipt ID: [id number] Authenticated by Martín Terry MD On 11/26/2022 09:56:31 PM at 0956 PATIENT NAME: AMINTA NINO [facility] 2022-11-15 12:30:00 [facility] ([facility]) [facility] Consultation Note REPORT#:[id number] REPORT STATUS: Signed DATE:11/15/22 TIME: 1230 PATIENT: AMINTA NINO UNIT #: [id number] ROOM/BED: [facility] : 92 AGE: 32 SEX: F ATTEND: Gibran Garnica MD ADM AUTHOR: Wm Rizo MD * ALL edits or amendments must be made on the electronic/computer document * History of Present Illness HPI Requesting clinician: Dr. Garnica Chief complaint: 32yo at 26w1d presented with SOB and orthopnea for 24 hours on Tuesday afternoon. Patient states the symptoms began Tuesday when she omitted her Labetalol. States she had significant lower extremity swelling and took her BP at home which was 190/110. She then took her home Labetalol and came in the next day when SOB worsened. Upon presentation to the hospital, she was admitted and Cardiology was consulted to evaluate her pulmonary edema and heart failure. This morning, I was consulted due to increasing BP and increased 24 hour urine and evaluation for suspected superimposed Preeclampsia. Patient is currently feeling much improved from initial admission. Denies current dyspnea. Denies BARBER, change in vision, or RUQ pain. Endorses active movement and denies contractions, loss of fluid or vaginal bleeding. History Nursing Documentation Review Nursing data: The data set between the solid lines has been imported from nursing documentation. Any exceptions have been noted below under Provider comments. Prior history : Para: Term: : Abortions spontaneous: Abortions induced: Living children: Ectopic: Stillbirths: Live births: deaths: Number of previous C/S: Current data EDC: EGA (weeks/days): EGA at admit (weeks): EGA at delivery (weeks): Steroids prior to arrival: Antibiotic prophylaxis given: ROM date: ROM time: Labor onset date: Labor onset time: Reported maternal labs/data Blood type: Rh type: Rubella: Hepatitis B: HIV exposure test: VDRL: Sexually transmitted diseases: Gonorrhea: Syphilis: Herpes simplex type 1 2: Chlamydia: Condyloma: Human papillomavirus: Group B beta strep: Rho(D) immune globulin this preg: Monitor mode - UA: Thatcher units: Feeding preference: Delivery data Delivery date A: Delivery time infant A: Birthweight (gm) A: Weight (lb) A: Weight (oz) A: Gender infant A: 1 minute A: 5 minutes infant A: 10 minutes A: Cord pH obtained A: Vacuum time A: Vacuum # pulls A: Vacuum # popoffs A: Provider comments on imported nursing data: [] Past History Medications: Home Medications: Medication Dose/Rte/Freq Days Qty Entered Last Max Daily Dose Reviewed QUEtiapine (SEROquel) 100 MG PO BEDTIME 08/19/22 11/13/22 Strength: 50 MG TAB 2241 1445 hydrOXYzine HCL (ATARAX) 50 MG PO 11/13/22 11/13/22 Strength: 50 MG TAB QID PRN PRN 1445 1447 ANXIOUS AMOXICILLIN (AMOXIL) 875 MG PO Q12HR 11/13/22 11/13/22 Strength: 875 MG TAB 1445 1447 INSULIN LISPRO 50 UNITS SUBQ QAM 11/13/22 11/13/22 (HumaLOG KWIKPEN (3mL)) 1446 1447 Strength: 100 UNIT/ML INSULN.PEN INSULIN LISPRO 60 UNITS SUBQ BID 11/13/22 11/13/22 (HumaLOG KWIKPEN (3mL)) 1446 1447 Strength: 100 UNIT/ML INSULN.PEN SERTRALINE (ZOLOFT) 100 MG PO DAILY 11/13/22 11/13/22 Strength: 100 MG TAB 1446 1448 INSULIN GLARGINE 0 UNITS SUBQ BID 11/13/22 11/13/22 (LANTUS SOLOSTAR (15mL)) 1447 1447 Strength: 100 UNIT/ML (3 ML) PEN.INJCTR LABETALOL (TRANDATE) 150 MG PO DAILY 11/13/22 11/13/22 Strength: 100 MG TAB 1447 1448 Current Hospital Medications: Blood Formation,Coagulation Sig/Deonna Start time Last Medication Dose Route Stop Time Status Admin Enoxaparin Sodium 40 MG Q12H 11/14 0930 AC 11/15 (LOVENOX) SUBQ 12/14 0931 1015 Cardiovascular Drugs Sig/Deonna Start time Last Medication Dose Route Stop Time Status Admin Hydralazine HCl 10 MG ONCE PRN 11/15 1045 AC (APRESOLINE) IV Labetalol HCl 20 MG ONCE PRN 11/15 1045 AC (Labetalol HCl) IV Labetalol HCl 40 MG ONCE PRN 11/15 1045 AC (Labetalol HCl) IV Labetalol HCl 80 MG ONCE PRN 11/15 1045 AC (Labetalol HCl) IV Nifedipine 60 MG DAILY 11/15 09 AC 11/15 (PROCARDIA XL) PO 12/15 0901 1014 Labetalol HCl 200 MG BID 11/13 2099 AC 11/15 (TRANDATE, NORMODYNE) PO 12/13 2100 1015 Central Nervous System Agents Sig/Deonna Start time Last Medication Dose Route Stop Time Status Admin Magnesium Sulfate/ 500 ML ASDIR 11/15 914 CKD 11/15 Water IV 12/15 09 1048 (MAGNESIUM SULFATE 20 G/500 ML BAG) Magnesium Sulfate/ 100 ML ONCE ONE 11/15 914 DC 11/15 Water IV 11/15 09 1048 (Magnesium Sulf 4 G/ 100 Ml Bag) Sertraline HCl 100 MG DAILY 11/14 899 AC 11/15 (ZOLOFT) PO 12/14 0901 1014 Quetiapine Fumarate 100 MG BEDTIME 11/13 2100 AC 11/14 (SEROqueL) PO 12/13 Electrolytic, Caloric, And Ranulfo Sig/Deonna Start time Last Medication Dose Route Stop Time Status Admin Calcium Gluconate 1,000 MG ONCE ONE 11/15 914 DC (Calcium Gluconate IV 11/16 915 10% 1,000 mg/10 mL Inj (B2)) Dextrose/Water 25 ML ASDIR PRN 11/13 193 CKD (DEXTROSE 50%-WATER) IV 12/13 1930 Glucose Polymer 15 GM ASDIR PRN 11/13 1930 AC (GLUTOSE) PO 12/13 193 Hormones And Synthetic Substit Sig/Deonna Start time Last Medication Dose Route Stop Time Status Admin Insulin Human Lispro 40 UNIT TID AC 11/15 1130 AC (HUMALOG) SUBQ 12/15 1131 Insulin Glargine 70 UNITS BID 11/15 0900 AC 11/15 (LANTUS) SUBQ 12/15 0901 1017 Insulin Glargine 80 UNITS BID 11/14 2099 DC 11/14 (LANTUS) SUBQ 12/14 Insulin Human Lispro 50 UNIT TID AC 11/14 0730 DC 11/14 (HUMALOG) SUBQ 12/14 0731 1739 Insulin Human Lispro See Dose ASDIR PRN 11/13 2199 AC 11/13 (HUMALOG) Insts (1) SUBQ 12/13 2200 2211 Glucagon 1 MG ASDIR PRN 11/13 193 AC (GLUCAGON) IM 12/13 1930 Skin And Mucous Membrane Agent Sig/Deonna Start time Last Medication Dose Route Stop Time Status Admin Hydrocortisone 1 APPLIC BID 11/13 2099 AC 11/15 (HYTONE 1% 30 GM TOPICAL 12/11 0000 1013 CREAM) Dose Instructions: (1)Insulin Human Lispro (HUMALOG): See Admin Criteria Allergies: Coded Allergies: latex (UNKNOWN 04/10/22) Objective Physical Exam VS/I O: Last Documented: Result Date Time B/P Mean 101.0 11/15 1157 B/P 138/79 11/15 1157 Pulse 91 11/15 1157 Pulse Ox 99 11/15 1155 O2 Delivery Room air 11/15 0710 Temp 98.8 11/15 0710 Resp 15 11/15 0710 O2 Flow Rate 2 11/13 2045 FiO2 21 11/13 1917 24 hour I O ending at 0700: 11/15 0700 11/14 1900 Intake Total 300 1340 Output Total 500 Balance 300 840 Intake, Oral 300 1340 Number Voids 1 Output, Urine 500 PATIENT WEIGHT: Weight (lb): 250 Weight (oz): 8.18 Weight (kg): 113.630 General appearance: obese, alert, awake, oriented, pleasant, mental status normal, no respiratory distress Cardiovascular: regular rate and rhythm Respiratory: clear to auscultation, no distress, aerating well, symmetric expansion Abdomen: non-tender, soft, no guarding, gravid Extremities: trace BLE edema Neuro/CYTOGENETICS TECHNOLOGIST: alert, oriented x 3 Results Findings/Data: Laboratory Tests 11/15 11/15 11/15 11/14 0801 0515 0515 2108 Chemistry Sodium (133 - 144 mmol/L) 138.0 Potassium (3.5 - 5.1 mmol/L) 3.6 Chloride (95 - 105 mmol/L) 108 H Carbon Dioxide (21 - 32 mmol/L) 22 Anion Gap (4.0 - 15.0 GAP calc) 8.0 BUN (7 - 18 MG/DL) 8 Creatinine (0.55 - 1.30 MG/DL) 0.35 L Glomerular Filtr Rate (>60 estGFR) 141 Glucose (70 - 110 MG/DL) 89 POC Glucose (70 - 119 MG/DL) 80 98 Calcium (8.5 - 10.1 MG/DL) 8.7 Magnesium (1.6 - 2.6 MG/DL) 1.7 Total Bilirubin (0.00 - 1.00 MG/DL) 0.23 Direct Bilirubin (0.00 - 0.30 MG/DL) < 0.10 Indirect Bilirubin (0.2 - 1.3 MG/DL) CALC GERALD L AST (15 - 37 Unit/L) 11 L ALT (12 - 78 Unit/L) 15 Total Alk Phosphatase (45 - 117 Unit/L) 77 Lactate Dehydrogenase (84 - 246 Unit/L) 204 Total Protein (6.4 - 8.2 G/DL) 6.6 Albumin (3.4 - 5.0 G/DL) 2.4 L Albumin/Globulin Ratio (1.2 - 2.2 RATIO) 0.6 L Specimen Appearance (1 NORMAL Index/DL) 1 NORMAL <2 MG Specimen Hemolysis (1 NORMAL Index/DL) 1 NORMAL <10 MG 11/14 1526 Chemistry POC Glucose (70 - 119 MG/DL) 222 H Laboratory Tests 11/15 0515 Hematology WBC (4.1 - 12.1 K/mm3) 11.0 RBC (3.8 - 5.5 M/mm3) 4.05 Hgb (10.6 - 15.8 G/DL) 10.9 Hct (31.8 - 47.4 %) 32.1 MCV (80.1 - 101.1 fL) 79.3 L MCH (25.3 - 35.3 pg) 26.9 MCHC (32.7 - 35.1 G/DL) 34.0 RDW (12.2 - 16.4 %) 13.8 Plt Count (155 - 337 K/mm3) 252 MPV (6.8 - 11.2 fL) 9.3 Gran % (37.8 - 82.6 %) 63.8 Lymph % (Auto) (14.1 - 45.4 %) 26.8 [place] % (Auto) (2.5 - 11.7 %) 7.2 Eos % (Auto) (0.0 - 6.2 %) 0.7 Baso % (Auto) (0.0 - 2.1 %) 0.3 Gran # (2.0 - 13.7 k/mm3) 7.05 Lymph # (Auto) (0.6 - 3.8 K/mm3) 2.96 [place] # (Auto) (0.11 - 0.59 K/mm3) 0.79 H Eos # (Auto) (0.0 - 0.4 K/mm3) 0.08 Baso # (Auto) (0.0 - 0.1 K/mm3) 0.03 Immature Gran % (0.0 - 2.0 %) 1.2 Nucleated RBC % (0.0 - 1.0 /100WBC%) 0.0 Nucleated RBCs # (0.0 - 0.05 K/mm3) 0.00 Laboratory Tests 11/14 2247 Urines U Random Total Protein (0.0 - 12.0 MG/DL) 26.9 H Urine Total Volume (800 - 2400 ML) 2300 Ur Total Protein 24 Hr (0 - 149 MG/24HR) 619 H Diagnosis, Assessment Plan Diagnosis, Assessment Plan Free Text A P: 32yo at 26.1 with T2DM, sleep apnea, Depression, now with superimposed preeclampsia with severe features. 1. CHTN with superimposed preeclampsia with severe features. - Patient and I discussed the risks of chronic hypertension and superimposed preeclampsia. A 24 hour urine protein has been completed and was elevated at > 600mg/24h. Patient did not have a baseline 24 hour urine however her baseline P /C ratio was 0.28 and has now increased to 0.48. -Given the increase and need for increasing doses of antihypertensives, increased proteinuria and pulmonary edema she meets the criteria for superimposed preeclampsia -I have discussed the pathophysiology of preeclampsia with her. We discussed the differences between mild and severe disease, including potential effects on the fetus. We discussed the management of both mild and severe disease. - Severe disease prior to 34 weeks can be managed with hospitalization for bedrest and close observation if no evidence of HELLP syndrome, or hemodynamic instability is present. If there are signs of worsening bp's, or any other clinical deterioration or lab deterioration then delivery should occur. Prematurity should be weighed against maternal status. We discussed that pulmonary edema is a condition that traditionally precludes expectant management , however her additional comorbidities and habitus may cloud the picture. -Any preeclamptic patient is at risk to develop eclampsia. As there is no good , consistent indicator of when this might develop, all preeclamptic patients with severe disease should be given Magnesium sulfate seizure prophylaxis from the time a decision is made to deliver, and it should continue for 24 hours post . Blood pressure control should be done with Labetalol (first line), procardia or hydralazine. The goal of this should be to keep SBP <160 and DBP < 110. -tx BP >160/110; Continue PO labetalol 200 BID and Procardia XL 60mg qd now and add IV hydralazine if not improved shortly after. If max dose used, consider nifedipine or hydralazine. Would deliver if BP cannot be controlled with 2 medications 2. well being: Recommend growth US, CEFM and NICU consult -We also discussed the outcomes at her current and advancing gestational ages. -recommend BMZ now and in 24 hours -if <32 weeks, recommend magnesium for neuroprotection if delivery imminent -when stable, can change to qshift NST. Would recommend twice weekly BPP and growth every 2-3 weeks while in house 3. T2DM - Currently on Lantus 70/70 and Log 55/60/60 - Will need to increase insulin doses due to anticipated hyperglycemia associated with betamethasone Increase qhs dose by 25% (88 units) Day 2-3: Increase all dosess by 40% Day 4-5 decrease all doses by 20% Day 6-7 continue to reduce dose to pre steroid dose. 4. Depression/ Bipolar d/o - Stable - Continue current medications 5. Mode of delivery: Will depend on position and clinical stability at the time of delivery. Dispo: Recommend transfer of care to higher level hospital for likely delivery less than 28 weeks. Please call for any questions or concerns. Time spent related to patient care, of which >50% was counseling and coordination of care: 95 Orders: Procedure Date/time Status URIC ACID 11/15 1224 Complete LACTIC DEHYDROGENASE(LDH) 11/15 1211 Complete at 1258 RPT #:[id number] [facility]22-[facility] 10:45:00 [facility] Lupe ([facility]) SR. DIRECTOR PRODUCT MANAGEMENT Consult Note - Brief REPORT#:[id number] REPORT STATUS: Signed DATE:11/15/22 TIME: 1045 PATIENT: AMINTA NINO UNIT #: [id number] ROOM/BED: [facility] : 92 AGE: 32 SEX: F ATTEND: Gibran Garncia MD ADM AUTHOR: Ronnell Davalos MD * ALL edits or amendments must be made on the electronic/computer document * History of Present Illness HPI Reason for consult: possible PIH with severe feature Chief complaint: SOB PCP: PCP: Tad Jordan MD History of present illness: 32 y/o WF IUP at 26 1/7 weeks presented to ED on 11/13/22 due to SOB. She was ruled out for covid and flu and CXR showed pulmonary edema vs pneumonia. She has CHTN dx at the beginning of the and pregestational DM since age 18. She has been followed by MFM ([facility]). Cardiology was consulted and an echo was done. She denies any SOB now and O2 sat was 99% room air. She denies any BARBER, scotomata or epigastric pain. Her baseline protein/cr ratio was 289 on 10/27/22 and 24 hour urine protein was 619 on this admission. Her platelet and LFTs were normal, but BPs start increasing ranging from 126-162/79- 95. Labetalol was increased to 200 mg bid and then procardia was added. [facility] was consulted today who is concerned that pt had PIH with severe feature and advised to transfer pt for higher level of care. History Past Medical History Additional medical history: bipolar, ADHD, OCD DM-taking metformin, insulin, HTN, Obesity Past Surgical History Additional surgical history: Denies Past SR. DIRECTOR PRODUCT MANAGEMENT History Past OB history: : 2 Term: 0 : 0 Abortus: 1 Living children: 0 Social History Alcohol use: Denies EtOH use Drug use: Denies recreational drugs Smoking status for patients 13 years old or older: Former Smoker Date last smoked: 08/13/19 Medication/Allergy-Vaccine Hx Allergies: Coded Allergies: latex (UNKNOWN 04/10/22) OB-Coverage Analyst Brief Consult Note Free Text A P: Dx: IUP 26 1/7 weeks with CHTN, pregestational Dm and pulmonary edema Plan: awaiting for echo result and if there is no underlying cardiac disease, [facility] Start MagSO4 4 gm loading and 2 gm/hr. General appearance: alert, awake, obese, oriented Cardiovascular: normal heart sounds Respiratory: clear to auscultation Abdomen: non-tender, soft Extremities: edema (trace edema, normal DTR) at 1055 RPT #:[id number] END OF REPORT [facility] 2022-11-15 10:17:00 [id number] [place] [id number] PATIENT NAME: AMINTA NINO ADMIT DATE: 11/14/22 ACCOUNT NO: [id number] ROOM NO: [facility] AGE: 32 REPORT TYPE: eECHOCARDIOGRAM REPORT SEX: F ADMITTING PHYSICIAN:Gibran Garnica MD ATTENDING PHYSICIAN:Gibran Garnica MD Name: AMINTA NINOtudy Date: 11/15/2022 10:17 AMPatient Location: [facility] [address] URN: [id number] BP: 132/75 mmHg Height: 60 in Gender: Female Weight: 250 lb : 1990 Gender: Female Age: 32 yrs Ethnicity: W BSA: 2.1 m2 Reason For Study: DYSPNEA Cardiac Measurements with Normal Values: LA dimension: 3.5 cm 19-40 mm LVIDd: 4.8 cm 37-56 mm LVIDs: 3.5 cm - IVSd: 0.85 cm6-11 mm MMode/2D Measurements Calculations LVPWd: 0.85 cm FS: 26.0 % EDV(Teich): 106.8 ml ESV(Teich): 52.4 ml EF(Teich): 50.9 % ___ LVOT diam: 1.7 cm LVOT area: 2.3 cm2 Doppler Measurements Calculations MV E max missy: 104.2 cm/sec MV dec slope: 695.0 cm/sec2 MV A max missy: 101.0 cm/sec MV dec time: 0.15 sec MV E/A: 1.0 ___ Ao V2 max: 186.9 cm/sec LV V1 max P.4 mmHg Ao max P.0 mmHg LV V1 max: 136.2 cm/sec DODIE(V,D): 1.7 cm2 ___ PA V2 max: 108.2 cm/sec PA max P.7 mmHg PATIENT NAME: AMINTA NINO Conclusions This is a complete transthoracic echocardiogram with real time 2-D imaging, M- mode recording, spectral Doppler imaging and color flow Doppler imaging. The study quality is technicially difficult. Patient was in normal sinus rthym during study. 1. The left ventricle is normal in size, wall thickness, and systolic function. The estimated ejection fraction is 60-65% with normal wall motion. 2. The right ventricle is normal in size and systolic function. Cannot estimate the RVSP due to insufficient TR jet. 3. The left atrium is normal in size. 4. The right atrium is normal in size. Cannot estimate the right atrial pressure from these images. 5. The aortic valve is not well-visualized, but appears trileaflet and opens/closes well. No significant stenosis or regurgitation noted. 6. The mitral valve is grossly normal with a trace of regurgitation. 7. The tricuspid valve is grossly normal in structure without stenosis or regurgitation. 8. The pulmonic valve is not well-visualized, but doppler evaluation does not reveal significant stenosis or regurgitation. 9. No signficant pericardial effusion is noted. 10. The aortic root and ascending aorta are normal in size. No comparison study available. Electronically signed by: Marv Cabral MD 11/15/2022 11:49 AM Ordering Physician: Nahun Joseph MD Referring Physician: Referred, Self Performed By: Ella Shaver at 1149 PATIENT NAME: AMINTA NINO [facility] 2022-11-15 06:32:00 [facility] Family Medicine Progress Note REPORT#:[id number] REPORT STATUS: Signed DATE:11/15/22 TIME: 631 PATIENT: AMINTA NINO UNIT #: [id number] ROOM/BED: [facility] : 92 AGE: 32 SEX: F ATTEND: Gibran Garnica MD ADM AUTHOR: Giovana Loyola MD R2 * ALL edits or amendments must be made on the electronic/computer document * Giovana Loyola 11/15/22 0632: Subjective HPI: Reports continued SOB though improved from yesterday. Shares that her swelling has improved in her hands and feet bilaterally. States that overall she feels a little better than yesterday. Denies cp, headache, vision change, abd pain, or RUQ pain. Shares that baby is a girl, "Duran", that is moving normally. Consulted MFM due to worsenig BP and elevated 24 hour protein. Review of Systems ROS comments: ROS per HPI Objective General VS/I O: 24 hour I O ending at 0700: 11/15 0700 11/14 1900 Intake Total 300 1340 Output Total 500 Balance 300 840 Intake, Oral 300 1340 Number Voids 1 Output, Urine 500 Vital Signs: Date Time Temp Pulse Resp B/P B/P Pulse O2 O2 Flow FiO2 Mean Ox Delivery Rate 11/15 0125 96 Room air 11/14 2353 98.2 75 18 161/88 112.4 98 Room air 11/14 2106 98.1 85 17 136/89 105.0 98 Room air 11/14 1524 97.7 86 14 126/79 94.6 97 11/14 1114 98.1 93 16 136/81 99.7 98 11/14 1032 95 Room air 11/14 0715 98.1 90 16 126/77 93.3 97 PATIENT WEIGHT: Weight (lb): 250 Weight (oz): 8.18 Weight (kg): 113.630 Physical Exam General appearance: alert, awake, oriented Cardiovascular: regular rate rhythm Respiratory: aerating well, clear to auscultation Abdomen: non-tender, soft Extremities: Trace pedal edema Musculoskeletal: full range of motion Skin: dry, intact Results Findings/Data: Laboratory Tests 11/15 11/14 11/14 11/14 0515 2108 1526 1117 Chemistry Sodium (133 - 144 mmol/L) 138.0 Potassium (3.5 - 5.1 mmol/L) 3.6 Chloride (95 - 105 mmol/L) 108 H Carbon Dioxide (21 - 32 mmol/L) 22 Anion Gap (4.0 - 15.0 GAP calc) 8.0 BUN (7 - 18 MG/DL) 8 Creatinine (0.55 - 1.30 MG/DL) 0.35 L Glomerular Filtr Rate (>60 estGFR) 141 Glucose (70 - 110 MG/DL) 89 POC Glucose (70 - 119 MG/DL) 98 222 H 238 H Calcium (8.5 - 10.1 MG/DL) 8.7 Magnesium (1.6 - 2.6 MG/DL) 1.7 Total Bilirubin (0.00 - 1.00 MG/DL) 0.23 Direct Bilirubin (0.00 - 0.30 MG/DL) < 0.10 Indirect Bilirubin (0.2 - 1.3 MG/DL) CALC GERALD L AST (15 - 37 Unit/L) 11 L ALT (12 - 78 Unit/L) 15 Total Alk Phosphatase (45 - 117 Unit/L) 77 Total Protein (6.4 - 8.2 G/DL) 6.6 Albumin (3.4 - 5.0 G/DL) 2.4 L Albumin/Globulin Ratio (1.2 - 2.2 RATIO) 0.6 L Specimen Appearance (1 NORMAL Index/DL) 1 NORMAL <2 MG Specimen Hemolysis (1 NORMAL Index/DL) 1 NORMAL <10 MG 11/14 0717 Chemistry POC Glucose (70 - 119 MG/DL) 178 H Laboratory Tests 11/15 0515 Hematology WBC (4.1 - 12.1 K/mm3) 11.0 RBC (3.8 - 5.5 M/mm3) 4.05 Hgb (10.6 - 15.8 G/DL) 10.9 Hct (31.8 - 47.4 %) 32.1 MCV (80.1 - 101.1 fL) 79.3 L MCH (25.3 - 35.3 pg) 26.9 MCHC (32.7 - 35.1 G/DL) 34.0 RDW (12.2 - 16.4 %) 13.8 Plt Count (155 - 337 K/mm3) 252 MPV (6.8 - 11.2 fL) 9.3 Gran % (37.8 - 82.6 %) 63.8 Lymph % (Auto) (14.1 - 45.4 %) 26.8 [place] % (Auto) (2.5 - 11.7 %) 7.2 Eos % (Auto) (0.0 - 6.2 %) 0.7 Baso % (Auto) (0.0 - 2.1 %) 0.3 Gran # (2.0 - 13.7 k/mm3) 7.05 Lymph # (Auto) (0.6 - 3.8 K/mm3) 2.96 [place] # (Auto) (0.11 - 0.59 K/mm3) 0.79 H Eos # (Auto) (0.0 - 0.4 K/mm3) 0.08 Baso # (Auto) (0.0 - 0.1 K/mm3) 0.03 Immature Gran % (0.0 - 2.0 %) 1.2 Nucleated RBC % (0.0 - 1.0 /100WBC%) 0.0 Nucleated RBCs # (0.0 - 0.05 K/mm3) 0.00 Laboratory Tests 11/14 2247 Urines U Random Total Protein (0.0 - 12.0 MG/DL) 26.9 H Urine Total Volume (800 - 2400 ML) 2300 Ur Total Protein 24 Hr (0 - 149 MG/24HR) 619 H Diagnosis, Assessment Plan Free Text A P: 32 y/o at 26.0wga with history of diabetes, HTN, bipolar disorder, and ADHD presented with chief complaint of dyspnea on excertion, orthopnea, LE swelling, cough, congestion, and generalized malaise x week and a half. Dyspnea Pulmonary Edema 2/2 to possible CHF v pneumonia 2/2 URI - vitals: afebrile, satting well on RA - tele: sinus 70s-low 90s overnight - labs: * no leukocytosis * Hgb 10.9, stable * trop <4, BNP<30, D-dimer 295 * VBG (at admission) pCO2 31, PO2 70, HCO3 19.7 * COVID and Flu neg * BCx NGTD - CXR: diffuse interstitial opacities in both lungs due to pulmonary edema versus pneumonia - ED management: Given IV Lasix 20 mg, Rocephin 1gm - Consult cardiology (Marianna), appreciate recs - echo ordered, pending Hypertension Concern for Pre-eclampsia - BP up to 161/88 - protein/cr ratio 438 - AST/ALT /14 -24 hr urine protein 619 (was previously [address] Clay 1-2 weeks ago) - continue Labetalol 200 mg BID and start procardia XL 60mg daily -MFM consulted (Darrius), appreciate recs T2DM, insulin dependent - glucose 98-238 - HgA1c 6.6 - home regimen lantus 60 units BID, Humulog at mealtimes- 50,60,60 - lantus 70u BID and humulog 40u at mealtimes, HDSSI - discussed with pt proper insulin administration -no SSI given in the past 24 hours 2nd trimester - BPP: viable fetus with heart rate of 150 bpm, MATHEUS 7.45 - consult OB (Dr. Davalos) * appreciate recs * recommends consult MFM for concern of pre-eclampsia as detailed above Comorbidities Depression- zoloft 100mg Bipolar- Seroquel 100mg Diet- diabetic Ppx- lovenox, SCDs Dispo- pending echo, f/u specialist recs , start procardia XL 60mg daily Gibran Garnica 11/15/22 1043: Diagnosis, Assessment Plan Additional comments: Pt seen this am on rounds, she is reporting feeling better Labs reviewed, severe Pre-e criteria met; glucose improved this am BPs worsening, adding procardia per Dr Davalos's recommendations this am Dr Adler and Dr Davalos both contacted this am, Dr Davalos here seeing the patient Dr Adler recommending transfer to higher level of care immediately given the GA and diagnoses and very high risk status. Echo still pending, cardiology awaiting that to be done, contacted the hyperbaric technologist and stressed need to have done immediately holding steroids for fetus given the severe BG issues and insulin resistance IV mag ordered to be started per [facility] recs at 0837 at 1048 RPT #:[id number] END OF REPORT FORMERLY [facility] 2022-11-14 11:09:00 [facility] ([facility]) Cardiology Consultation REPORT#:[id number] REPORT STATUS: Signed DATE:11/14/22 TIME: 1109 PATIENT: AMINTA NINO UNIT #: [id number] ROOM/BED: [facility] : 92 AGE: 32 SEX: F ATTEND: Gibran Garnica MD ADM AUTHOR: Marv Cabral MD * ALL edits or amendments must be made on the electronic/computer document * History of Present Illness HPI Requesting Clinician: Glenis Reason for consult: Dyspnea / Pulmonary edema / 26 WGA HPI: Patient is a 32-year-old female at 26 weeks gestation, with the below listed past medical history, here with 1+ week duration of increased LYNCH, lower extremity edema above baseline, orthopnea, malaise, non-productive cough and chest congestion who recently saw her PCP for what she thought was a "summer cold". At that time, her PCP referred her to a verify rep (unknown name/ location) that she was to see shortly for evaluation of her shortness of breath and apparent heart failure symptoms. She has not had any testing performed yet. She was given diuretic on arrival here and states she does feel somewhat better. She denies any fever or chills, productive cough, sore throat, nasal congestion , headache, myalgias, rashes or known sick contacts. She denies a history of congenital heart defect. Hx Obtained From Patient, Prior medical records History - Adult longitudinal Additional medical history: bipolar, ADHD, OCD DM-taking metformin/insulin, HTN, Obesity Additional surgical history: Denies Additional family history: DM and HTN and multiple family members, no premature CAD Alcohol use: Denies EtOH use Drug use: Denies recreational drugs Smoking status for patients 13 years old or older: Former Smoker Date last smoked: 08/13/19 Home medications: Home Medications: QUEtiapine (SEROquel) 100 MG PO BEDTIME hydrOXYzine HCL (ATARAX) 50 MG PO QID PRN PRN ANXIOUS AMOXICILLIN (AMOXIL) 875 MG PO Q12HR INSULIN LISPRO (HumaLOG KWIKPEN (3mL)) 50 UNITS SUBQ QAM INSULIN LISPRO (HumaLOG KWIKPEN (3mL)) 60 UNITS SUBQ BID SERTRALINE (ZOLOFT) 100 MG PO DAILY INSULIN GLARGINE (LANTUS SOLOSTAR (15mL)) 0 UNITS SUBQ BID LABETALOL (TRANDATE) 150 MG PO DAILY Allergies: Coded Allergies: latex (SWELLING 11/15/22) Review of Systems Constitutional: fatigue, generalized weakness, malaise. Denies: chills, fever. Skin: Denies: diaphoresis, rash. Allergy/Immun: Denies: rhinorrhea, sneezing. Eyes: Denies: visual loss/blurred, photophobia. ENT: Denies: nasal congestion, sore throat. Respiratory: Reports: LYNCH (dyspnea on exertion), non productive cough, SOB. Denies: hemoptysis, parox nocturnal dyspnea, productive cough (sputum), wheezing. Cardiovascular: Reports: dyspnea on exertion, edema, orthopnea. Denies: chest pain, palpitations, parox noctural dyspnea. GI: Denies: anorexia, nausea, vomiting. : Denies: dysuria, flank pain, urgency. Musculoskeletal: lumbar pain. Denies: myalgias. Heme: Denies: bleeding, bruising. Endocrine: Denies: polydipsia, polyuria. Neuro: Denies: change in LOC, dizziness, headache, lightheaded, syncope. Psych: anxiety, depression, stress. Objective General VS/I O: Vital Signs: Date Time Temp Pulse Resp B/P B/P Pulse O2 O2 Flow FiO2 Mean Ox Delivery Rate 11/14 1032 95 Room air 11/14 0715 98.1 90 16 126/77 93.3 97 11/14 0328 97.7 91 16 132/75 94.0 99 11/13 2327 98.2 87 16 123/82 95.8 97 11/13 2045 Nasal 2 cannula 11/14 2007 97.9 93 15 147/95 112.2 99 11/13 1917 98 Room air 21 11/13 1720 98.1 94 18 148/92 110.5 98 Room air 11/13 1630 98.3 99 18 162/91 119 95 11/13 1600 98.3 97 18 113/55 73 97 11/13 1445 97.6 103 18 131/69 89 98 Room air 11/13 1444 97 11/13 1338 98.1 103 18 136/79 98 99 24 hour I O ending at 0700: 11/14 0700 11/13 1900 Intake Total Output Total 1050 600 Balance -1050 -600 Number Voids 1 Output, Urine 1050 600 Patient 113.63 kg Weight Weight Stated/Reported Measurement Method PATIENT WEIGHT: Weight (lb): 250 Weight (oz): 8.18 Weight (kg): 113.630 Medications: Active Meds + DC'd Last 24 Hrs Insulin Glargine (LANTUS) 80 UNITS BID SUBQ Enoxaparin Sodium (LOVENOX) 40 MG Q12H SUBQ Sertraline HCl (ZOLOFT) 100 MG DAILY PO Insulin Human Lispro (HUMALOG) 50 UNIT TID AC SUBQ Insulin Human Lispro (HUMALOG) See Admin Criteria ASDIR PRN SUBQ Hydrocortisone (HYTONE 1% 30 GM CREAM) 1 APPLIC BID TOPICAL Insulin Glargine (LANTUS) 60 UNITS BID SUBQ (DC) Insulin Glargine (LANTUS) 60 UNITS BID SUBQ (DC) Labetalol HCl (TRANDATE, NORMODYNE) 200 MG BID PO Quetiapine Fumarate (SEROqueL) 100 MG BEDTIME PO Dextrose/Water (DEXTROSE 50%-WATER) 25 ML ASDIR PRN IV (CKD) Glucagon (GLUCAGON) 1 MG ASDIR PRN IM Glucose Polymer (GLUTOSE) 15 GM ASDIR PRN PO Insulin Human Lispro (HUMALOG) See Admin Criteria ASDIR PRN SUBQ (DC) Ceftriaxone Sodium (ROCEPHIN) 1 GM X1ED STA IV (DC) Sterile Water (STERILE WATER) 10 ML Furosemide (LASIX) 20 MG X1ED STA IV (DC) Physical Exam General appearance: obese, alert, awake, oriented, no acute distress, pleasant, conversational Head/Eyes: atraumatic, EOMI ENT: moist mucosal membranes, normal nose Neck: no bruit/NL carotids, cannot adequately evaluate JVP due to habitus Cardiovascular: CV assessment: regular rate and rhythm, normal heart sounds, no ectopy, no gallop Respiratory: decreased breath sounds, clear to auscultation, no distress Abdomen: soft, non-tender, normal bowel sounds, gravid Genitourinary: no flank pain, no urinary catheter Upper extremity: UE assessment: no cyanosis, no edema, 2+ radial pulse Lower extremity: LE assessment: edema (mild to moderate), normal temperature, 2+ peripheral pulses Musculoskeletal: normal inspection, PATTON Neuro/CYTOGENETICS TECHNOLOGIST: alert, oriented X 3, normal speech Skin: dry, intact, normal temperature Psychiatry: normal affect, normal judgment/insight Results Findings/Data: Laboratory Tests 11/13 1506 Blood Gas Puncture Site (DESCRIPTION Site) Venous VBG pH (7.32 - 7.42 pH units) 7.41 VBG pCO2 (41 - 51 mmHg) 31 L VBG pO2 (25 - 40 mmHg) 70 H VBG HCO3 (24 - 28 mmol/L) 19.7 L Laboratory Tests 11/14 11/14 11/13 11/13 0717 0514 2004 1719 Chemistry Sodium (133 - 144 mmol/L) 134.0 Potassium (3.5 - 5.1 mmol/L) 3.7 Chloride (95 - 105 mmol/L) 108 H Carbon Dioxide (21 - 32 mmol/L) 20 L Anion Gap (4.0 - 15.0 GAP calc) 6.0 BUN (7 - 18 MG/DL) 11 Creatinine (0.55 - 1.30 MG/DL) 0.42 L Glomerular Filtr Rate (>60 estGFR) 135 Glucose (70 - 110 MG/DL) 200 H POC Glucose (70 - 119 MG/DL) 178 H 224 H 229 H Calcium (8.5 - 10.1 MG/DL) 8.4 L Total Bilirubin (0.00 - 1.00 MG/DL) < 0.10 Direct Bilirubin (0.00 - 0.30 MG/DL) < 0.10 Indirect Bilirubin (0.2 - 1.3 MG/DL) 0.10 L AST (15 - 37 Unit/L) 10 L ALT (12 - 78 Unit/L) 14 Total Alk Phosphatase (45 - 117 Unit/L) 72 Total Protein (6.4 - 8.2 G/DL) 6.3 L Albumin (3.4 - 5.0 G/DL) 2.3 L Albumin/Globulin Ratio (1.2 - 2.2 RATIO) 0.6 L Specimen Appearance (1 NORMAL Index/DL) 1 NORMAL <2 MG Specimen Hemolysis (1 NORMAL Index/DL) 1 NORMAL <10 MG 11/13 11/13 11/13 1433 1433 1433 Chemistry Sodium (133 - 144 mmol/L) 137.0 Potassium (3.5 - 5.1 mmol/L) 3.7 Chloride (95 - 105 mmol/L) 109 H Carbon Dioxide (21 - 32 mmol/L) 20 L Anion Gap (4.0 - 15.0 GAP calc) 8.0 BUN (7 - 18 MG/DL) 13 Creatinine (0.55 - 1.30 MG/DL) 0.59 Glomerular Filtr Rate (>60 estGFR) 124 Glucose (70 - 110 MG/DL) 274 H Calcium (8.5 - 10.1 MG/DL) 8.2 L Troponin I High Sens (0 - 45 ng/L) < 4 B-Natriuretic Peptide (0.00 - 100.00 PG/ML) < 30.00 Specimen Appearance (1 NORMAL Index/DL) 1 NORMAL <2 MG Specimen Hemolysis (1 NORMAL Index/DL) 1 NORMAL <10 MG 11/13 1422 Chemistry Hemoglobin A1c (4.5 - 5.6 % IS-A1C) 6.6 H Laboratory Tests 11/13 1433 Coagulation D-Dimer (0 - 500 FEUng/mL) 295 Laboratory Tests 11/14 11/13 0514 1433 Hematology WBC (4.1 - 12.1 K/mm3) 10.3 10.1 RBC (3.8 - 5.5 M/mm3) 3.72 L 3.82 Hgb (10.6 - 15.8 G/DL) 9.9 L 10.4 L Hct (31.8 - 47.4 %) 29.8 L 30.8 L MCV (80.1 - 101.1 fL) 80.1 80.6 MCH (25.3 - 35.3 pg) 26.6 27.2 MCHC (32.7 - 35.1 G/DL) 33.2 33.8 RDW (12.2 - 16.4 %) 13.7 13.8 Plt Count (155 - 337 K/mm3) 230 264 MPV (6.8 - 11.2 fL) 9.6 9.6 Gran % (37.8 - 82.6 %) 60.0 Lymph % (Auto) (14.1 - 45.4 %) 31.0 [place] % (Auto) (2.5 - 11.7 %) 6.8 Eos % (Auto) (0.0 - 6.2 %) 1.0 Baso % (Auto) (0.0 - 2.1 %) 0.2 Gran # (2.0 - 13.7 k/mm3) 6.17 Lymph # (Auto) (0.6 - 3.8 K/mm3) 3.19 [place] # (Auto) (0.11 - 0.59 K/mm3) 0.70 H Eos # (Auto) (0.0 - 0.4 K/mm3) 0.10 Baso # (Auto) (0.0 - 0.1 K/mm3) 0.02 Immature Gran % (0.0 - 2.0 %) 1.0 Nucleated RBC % (0.0 - 1.0 /100WBC%) 0.0 Nucleated RBCs # (0.0 - 0.05 K/mm3) 0.00 Laboratory Tests 11/13 1432 Serology SARS-CoV-2 Ag (Rapid) (Neg) Negative Laboratory Tests 11/13 143 Urines Urine Color (YELLOW DESCRIPT) LIGHT-YELLOW Urine Appearance (CLEAR DESCRIPT) CLEAR Urine pH (4.6 - 8.0 pH UNITS) 6.5 Ur Specific Rarden (1.001 - 1.035 SG) 1.030 Urine Protein ((NEG) <30 mg/dL) 20 (TRACE) H Urine Glucose (UA) (0 (NORMAL) mg/dL) OVER >1000 (4+) H Urine Ketones ((NEG) 0 mg/dL) 20 (1+) H Urine Blood (0 (NEG) mg/dL) NEGATIVE (0.00) Urine Nitrite (NEG SCREEN) NEGATIVE (0) Urine Bilirubin ((NEG) 0 mg/dL) NEGATIVE (0.0) Urine Urobilinogen ((NORM)<2.0 mg/Dl) NORMAL (0) Ur Leukocyte Esterase ((NEG) 0 Leuk/mcL) NEGATIVE (0) Urine RBC (0 - 3 #RBC/HPF) 0-3 Urine WBC (0 - 3 #WBC/HPF) 0-3 Ur Squamous Epith Cells (NONE - SQepi /UL) FEW >2 Urine Bacteria (NONE - FEW /HPF) FEW >1 Urine Mucus (NONE /LPF) RARE Urine Culture Screen (Cult byBC Criteria) Crit NOTmet CULT-N/A Ur Random Creatinine (30 - 150 MG/DL) 89.4 U Random Total Protein (0.0 - 12.0 MG/DL) 39.2 H Protein/Creatinin Ratio (0.0 - 200.0 MG/GRAM) 438.0 H Urine Comment (SpecComment NoteSPEC) SPECIMEN COMMENT Microbiology Date/Time Procedure - Status Source Growth 11/13 143 Influenza Virus Type B Antigen - COMP NASAL 11/13 1433 Influenza Virus Type A Antigen - COMP NASAL Laboratory Tests 11/13 1433 Chemistry B-Natriuretic Peptide (0.00 - 100.00 PG/ML) < 30.00 Radiology Data: Recent Impressions: RADIOLOGY - XR CHEST 1 V 11/13 1406 Report Impression - Status: SIGNED Entered: 11/13/2022 1420 IMPRESSION: Diffuse interstitial opacities in both lungs due to pulmonary edema versus pneumonia. Impression By: Zena Lockhart MD ULTRASOUND - US FET BIO PH FL W/O NST 11/13 1510 Report Impression - Status: SIGNED Entered: 11/13/2022 1621 IMPRESSION: 1. Viable fetus with heart rate of 150 bpm. 2. Biophysical profile score is 8 out of 8. 3. MATHEUS lower normal at 7.45 Impression By: [email or web address] - Misha Forman MD Results: labs reviewed, vital signs reviewed, EKG personally reviewed, rhythm personally rev'd, US results reviewed, x-ray personally reviewed, current med profile rev'd Diagnosis, Assessment Plan Free Text DxA P Notes Free Text DxA P Notes: 1. Acute CHF, uncertain EF 2. 26-week gestation 3. Increased SOB at rest and with exertion 4. HTN 5. T2DM with hyperglycemia 6. Obesity-associated hypoventilation syndrome 7. Morbid obesity, BMI 48.9 kg/m2 8. Past tobacco use We will hold off with further diuresis at this time since patient is feeling better. We will obtain 2D TTE for cardiac structure and function. Labetalol for anti-hypertensive therapy. Continue to monitor symptoms closely. Thank you for the consultation. We will follow-up TTE once image acquisition completed. Patient should follow with cardiology within 2 weeks of discharge. Please call me with any questions or concerns. at 1436 RPT #:[id number] END OF REPORT FORMERLY [facility] 2022-11-14 04:14:00 [facility] Family Medicine Progress Note REPORT#:[id number] REPORT STATUS: Signed DATE:11/14/22 TIME: 413 PATIENT: AMINTA NINO UNIT #: [id number] [facility] AGE: 32 SEX: F ATTEND: Gibran Garnica MD ADM AUTHOR: Deanna Galvin MD R1 * ALL edits or amendments must be made on the electronic/computer document * Deanna Galvin 11/14/22 0414: Subjective HPI: Pt reports that she continues to have shortness of breath when sitting up or when laying down which is not allowing her to sleep. Pt states that she was intermittently on O2 overnight due to the feeling of sob. Shares that her swelling has improved in her hands and feet bilaterally. States that overall she feels a little better than yesterday. Denies cp, headache, vision change, abd pain, or RUQ pain. Shares that baby is a girl, "Stormi", that is moving normally. Review of Systems ROS comments: See HPI Objective General VS/I O: 24 hour I O ending at 0700: 11/14 0700 11/13 1900 Intake Total Output Total 1050 600 Balance -1050 -600 Number Voids 1 Output, Urine 1050 600 Patient 113.63 kg Weight Weight Stated/Reported Measurement Method Vital Signs: Date Time Temp Pulse Resp B/P B/P Pulse O2 O2 Flow FiO2 Mean Ox Delivery Rate 11/14 0328 97.7 91 16 132/75 94.0 99 11/13 2327 98.2 87 16 123/82 95.8 97 11/13 2045 Nasal 2 cannula 11/14 2007 97.9 93 15 147/95 112.2 99 11/13 1917 98 Room air 21 11/13 1720 98.1 94 18 148/92 110.5 98 Room air 11/13 1630 98.3 99 18 162/91 119 95 11/13 1600 98.3 97 18 113/55 73 97 11/13 1445 97.6 103 18 131/69 89 98 Room air 11/13 1444 97 11/13 1338 98.1 103 18 136/79 98 99 PATIENT WEIGHT: Weight (lb): 250 Weight (oz): 8.18 Weight (kg): 113.630 Medications: Active Meds + DC'd Last 24 Hrs Sertraline HCl (ZOLOFT) 100 MG DAILY PO Insulin Human Lispro (HUMALOG) 50 UNIT TID AC SUBQ Insulin Human Lispro (HUMALOG) See Admin Criteria ASDIR PRN SUBQ Hydrocortisone (HYTONE 1% 30 GM CREAM) 1 APPLIC BID TOPICAL Insulin Glargine (LANTUS) 60 UNITS BID SUBQ (DC) Insulin Glargine (LANTUS) 60 UNITS BID SUBQ Labetalol HCl (TRANDATE, NORMODYNE) 200 MG BID PO Quetiapine Fumarate (SEROqueL) 100 MG BEDTIME PO Dextrose/Water (DEXTROSE 50%-WATER) 25 ML ASDIR PRN IV (CKD) Glucagon (GLUCAGON) 1 MG ASDIR PRN IM Glucose Polymer (GLUTOSE) 15 GM ASDIR PRN PO Insulin Human Lispro (HUMALOG) See Admin Criteria ASDIR PRN SUBQ (DC) Ceftriaxone Sodium (ROCEPHIN) 1 GM X1ED STA IV (DC) Sterile Water (STERILE WATER) 10 ML Furosemide (LASIX) 20 MG X1ED STA IV (DC) Physical Exam General appearance: alert, awake, oriented Cardiovascular: regular rate rhythm Respiratory: aerating well, clear to auscultation Abdomen: non-tender, soft Extremities: Trace pedal edema Results Findings/Data: Laboratory Tests 11/13 1506 Blood Gas Puncture Site (DESCRIPTION Site) Venous VBG pH (7.32 - 7.42 pH units) 7.41 VBG pCO2 (41 - 51 mmHg) 31 L VBG pO2 (25 - 40 mmHg) 70 H VBG HCO3 (24 - 28 mmol/L) 19.7 L Laboratory Tests 11/14 1433 Chemistry Sodium (133 - 144 mmol/L) 134.0 Potassium (3.5 - 5.1 mmol/L) 3.7 Chloride (95 - 105 mmol/L) 108 H Carbon Dioxide (21 - 32 mmol/L) 20 L Anion Gap (4.0 - 15.0 GAP calc) 6.0 BUN (7 - 18 MG/DL) 11 Creatinine (0.55 - 1.30 MG/DL) 0.42 L Glomerular Filtr Rate (>60 estGFR) 135 Glucose (70 - 110 MG/DL) 200 H POC Glucose (70 - 119 MG/DL) 224 H 229 H Calcium (8.5 - 10.1 MG/DL) 8.4 L Total Bilirubin (0.00 - 1.00 MG/DL) < 0.10 Direct Bilirubin (0.00 - 0.30 MG/DL) < 0.10 Indirect Bilirubin (0.2 - 1.3 MG/DL) 0.10 L AST (15 - 37 Unit/L) 10 L ALT (12 - 78 Unit/L) 14 Total Alk Phosphatase (45 - 117 72 Unit/L) Troponin I High Sens (0 - 45 ng/L) < 4 Total Protein (6.4 - 8.2 G/DL) 6.3 L Albumin (3.4 - 5.0 G/DL) 2.3 L Albumin/Globulin Ratio (1.2 - 2.2 0.6 L RATIO) Specimen Appearance (1 NORMAL 1 NORMAL <2 MG Index/DL) Specimen Hemolysis (1 NORMAL Index/DL) 1 NORMAL <10 MG 11/13 11/13 11/13 1433 1433 1422 Chemistry Sodium (133 - 144 mmol/L) 137.0 Potassium (3.5 - 5.1 mmol/L) 3.7 Chloride (95 - 105 mmol/L) 109 H Carbon Dioxide (21 - 32 mmol/L) 20 L Anion Gap (4.0 - 15.0 GAP calc) 8.0 BUN (7 - 18 MG/DL) 13 Creatinine (0.55 - 1.30 MG/DL) 0.59 Glomerular Filtr Rate (>60 estGFR) 124 Glucose (70 - 110 MG/DL) 274 H Hemoglobin A1c (4.5 - 5.6 % IS-A1C) 6.6 H Calcium (8.5 - 10.1 MG/DL) 8.2 L B-Natriuretic Peptide (0.00 - 100.00 PG/ML) < 30.00 Specimen Appearance (1 NORMAL Index/DL) 1 NORMAL <2 MG Specimen Hemolysis (1 NORMAL Index/DL) 1 NORMAL <10 MG Laboratory Tests 11/13 1433 Coagulation D-Dimer (0 - 500 FEUng/mL) 295 Laboratory Tests 11/14 11/13 0514 1433 Hematology WBC (4.1 - 12.1 K/mm3) 10.3 10.1 RBC (3.8 - 5.5 M/mm3) 3.72 L 3.82 Hgb (10.6 - 15.8 G/DL) 9.9 L 10.4 L Hct (31.8 - 47.4 %) 29.8 L 30.8 L MCV (80.1 - 101.1 fL) 80.1 80.6 MCH (25.3 - 35.3 pg) 26.6 27.2 MCHC (32.7 - 35.1 G/DL) 33.2 33.8 RDW (12.2 - 16.4 %) 13.7 13.8 Plt Count (155 - 337 K/mm3) 230 264 MPV (6.8 - 11.2 fL) 9.6 9.6 Gran % (37.8 - 82.6 %) 60.0 Lymph % (Auto) (14.1 - 45.4 %) 31.0 [place] % (Auto) (2.5 - 11.7 %) 6.8 Eos % (Auto) (0.0 - 6.2 %) 1.0 Baso % (Auto) (0.0 - 2.1 %) 0.2 Gran # (2.0 - 13.7 k/mm3) 6.17 Lymph # (Auto) (0.6 - 3.8 K/mm3) 3.19 [place] # (Auto) (0.11 - 0.59 K/mm3) 0.70 H Eos # (Auto) (0.0 - 0.4 K/mm3) 0.10 Baso # (Auto) (0.0 - 0.1 K/mm3) 0.02 Immature Gran % (0.0 - 2.0 %) 1.0 Nucleated RBC % (0.0 - 1.0 /100WBC%) 0.0 Nucleated RBCs # (0.0 - 0.05 K/mm3) 0.00 Laboratory Tests 11/13 143 Serology SARS-CoV-2 Ag (Rapid) (Neg) Negative Laboratory Tests 11/13 143 Urines Ur Random Creatinine (30 - 150 MG/DL) 89.4 U Random Total Protein (0.0 - 12.0 MG/DL) 39.2 H Protein/Creatinin Ratio (0.0 - 200.0 MG/GRAM) 438.0 H 11/13 1433 Urines Urine Color (YELLOW DESCRIPT) LIGHT-YELLOW Urine Appearance (CLEAR DESCRIPT) CLEAR Urine pH (4.6 - 8.0 pH UNITS) 6.5 Ur Specific Rarden (1.001 - 1.035 SG) 1.030 Urine Protein ((NEG) <30 mg/dL) 20 (TRACE) H Urine Glucose (UA) (0 (NORMAL) mg/dL) OVER >1000 (4+) H Urine Ketones ((NEG) 0 mg/dL) 20 (1+) H Urine Blood (0 (NEG) mg/dL) NEGATIVE (0.00) Urine Nitrite (NEG SCREEN) NEGATIVE (0) Urine Bilirubin ((NEG) 0 mg/dL) NEGATIVE (0.0) Urine Urobilinogen ((NORM)<2.0 mg/Dl) NORMAL (0) Ur Leukocyte Esterase ((NEG) 0 Leuk/mcL) NEGATIVE (0) Urine RBC (0 - 3 #RBC/HPF) 0-3 Urine WBC (0 - 3 #WBC/HPF) 0-3 Ur Squamous Epith Cells (NONE - SQepi /UL) FEW >2 Urine Bacteria (NONE - FEW /HPF) FEW >1 Urine Mucus (NONE /LPF) RARE Urine Culture Screen (Cult byWBC Criteria) Crit NOTmet CULT-N/A Urine Comment (SpecComment NoteSPEC) SPECIMEN COMMENT Microbiology Date/Time Procedure - Status Source Growth 11/13 143 Influenza Virus Type B Antigen - COMP NASAL 11/13 143 Influenza Virus Type A Antigen - COMP NASAL Radiology data: Recent Impressions: RADIOLOGY - XR CHEST 1 V 11/13 1406 Report Impression - Status: SIGNED Entered: 11/13/2022 1420 IMPRESSION: Diffuse interstitial opacities in both lungs due to pulmonary edema versus pneumonia. Impression By: Zena Lockhart MD ULTRASOUND - US FET BIO PH FL W/O NST 11/13 1510 Report Impression - Status: SIGNED Entered: 11/13/2022 1621 IMPRESSION: 1. Viable fetus with heart rate of 150 bpm. 2. Biophysical profile score is 8 out of 8. 3. MATHEUS lower normal at 7.45 Impression By: [id number] - Misha Forman MD Diagnosis, Assessment Plan Free Text A P: 32 y/o at 26.0wga with history of diabetes, HTN, bipolar disorder, and ADHD presented with chief complaint of dyspnea on excertion, orthopnea, LE swelling, cough, congestion, and generalized malaise x week and a half. Dyspnea Pulmonary Edema 2/2 to possible CHF v pneumonia 2/2 URI - vitals: afebrile, ESTELITA, HR 87-103 - tele: sinus 80s-low 90s overnight, no ectopy - labs: * no leukocytosis * Hgb 10.4>9.9 * trop <4, BNP<30, D-dimer 295 * VBG (at admission) pCO2 31, PO2 70, HCO3 19.7 * COVID and Flu neg * BCx NGTD - CXR: diffuse interstitial opacities in both lungs due to pulmonary edema versus pneumonia - ED management: Given IV Lasix 20 mg, Rocephin 1gm - Consult cardiology, appreciate recs - echo ordered Hypertension - BP 123-148/75-95 overnight - protein/cr ratio 39.2 - AST/ALT 12/25 - continue Labetalol 200 mg BID - pending 24-hr urine protein T2 Diabetes Mellitus - glucose 224-274 - HgA1c 6.6 - home regimen lantus 60 units BID, Humulog at mealtimes- 50,60,60 - increase to lantus 80u BID and humulog 50u at mealtimes, HDSSI (6u utilizied over the last 24hrs) - discussed with pt proper insulin administration 2nd trimester - BPP: viable fetus with heart rate of 150 bpm, MATHEUS 7.45 - consult OB (Dr. Davalos) * recommended increasing home labetalol 150mg qd to 200 mg BID Comorbidities Depression- zoloft 100mg Bipolar- Seroquel 100mg Diet- diabetic Ppx- lovenox, SCDs Dispo- pending echo, specialist recs, and blood sugar control Gibran Garnica 11/14/22 0929: Diagnosis, Assessment Plan Additional comments: Please see admit note, pt seen this am on rounds note of elevated spot protein urine/ Cr ratio -- 24hour urine pending BPs stable this am on current labetalol dosing increase insulin to better control bg echo read and cardio eval pending Dr Leobardo NOLEN also consulted for pt, she recommended waiting on a [facility] consult for pt at 0931 at 0935 RPT #:[id number] END OF REPORT FORMER[facility] 2022-11-13 18:06:00 [facility] ([facility]) History Physical - Adult REPORT#:[id number] REPORT STATUS: Signed DATE:11/13/22 TIME: 1805 PATIENT: AMINTA NINO UNIT #: [id number] ROOM/BED: [address] : 92 AGE: 32 SEX: F ATTEND: Gibran Garnica MD ADM AUTHOR: Cyn Delarosa DO R1 * ALL edits or amendments must be made on the electronic/computer document * Cyn Delarosa 11/13/22 180: History of Present Illness HPI Chief complaint: dyspnea HPI: 32 y/o at 25 weeks and 6 days with history of diabetes, HTN, bipolar disorder, and ADHD presenting today with chief complaint of dyspnea on excertion , orthopnea, LE swelling, cough, congestion, and generalized malaise x week and a half. She reports seeing PCP on Tuesday and being prescribed antibiotics which have not relieved symptoms. Patient reports seeing outpatient verify rep who recommended further studies to evaluate her shortness of breath. Patient denies any fevers, chills, nausea, vomiting, dizziness. History Additional medical history: bipolar, ADHD, OCD DM-taking metformin, insulin, HTN, Obesity Additional surgical history: Denies Alcohol use: Denies EtOH use Drug use: Denies recreational drugs Smoking status for patients 13 years old or older: Former Smoker Date last smoked: 08/13/19 Medication/Allergy-Vaccine Hx Allergies: Coded Allergies: latex (UNKNOWN 04/10/22) Review of Systems Constitutional: Denies: chills, fatigue, fever, generalized weakness. Respiratory: Reports: LYNCH (dyspnea on exertion), productive cough (sputum), SOB. Cardiovascular: Reports: LYNCH (dyspnea on exertion), edema, orthopnea. Denies: chest pain, palpitations. GI: Reports: diarrhea. Denies: abdominal pain, constipation, nausea, vomiting. : Reports: . Denies: dysuria, flank pain, urgency. Neuro: Reports: headache. Denies: dizziness, lightheaded, numbness, weakness. Physical Exam VS/I O Vital Signs: Date Time Temp Pulse Resp B/P B/P Pulse O2 O2 Flow FiO2 Mean Ox Delivery Rate 11/13 1917 98 Room air 21 11/13 1720 98.1 94 18 148/92 110.5 98 Room air 11/13 1630 98.3 99 18 162/91 119 95 11/13 1600 98.3 97 18 113/55 73 97 11/13 1445 97.6 103 18 131/69 89 98 Room air 11/13 1444 97 11/13 1338 98.1 103 18 136/79 98 99 PATIENT WEIGHT: Weight (lb): 250 Weight (oz): 8.18 Weight (kg): 113.630 General appearance: alert, awake, oriented, pleasant, conversational, no respiratory distress Cardiovascular: tachycardia, regular rate rhythm, no ectopy, no gallop, no murmur Respiratory: clear to auscultation, no distress Abdomen/GI: active bowel sounds, non-tender Extremities: pitting edema (1+ pitting b/l), moves all, normal range of motion, normal sensory, no calf tenderness Musculoskeletal: full range of motion Neuro/CYTOGENETICS TECHNOLOGIST: alert, oriented X 3, normal speech, no motor deficits, no sensory deficits Psychiatry: normal affect, normal judgment/insight, normal mood Results Findings/Data: Laboratory Tests: 11/13 11/13 11/13 11/13 1719 1506 1433 1433 Blood Gas Puncture Site (DESCRIPTION Site) Venous VBG pH (7.32 - 7.42 pH units) 7.41 VBG pCO2 (41 - 51 mmHg) 31 L VBG pO2 (25 - 40 mmHg) 70 H VBG HCO3 (24 - 28 mmol/L) 19.7 L Chemistry POC Glucose (70 - 119 MG/DL) 229 H Troponin I High Sens (0 - 45 ng/L) < 4 B-Natriuretic Peptide (0.00 - 100.00 PG/ML) < 30.00 11/13 1433 Chemistry Sodium (133 - 144 mmol/L) 137.0 Potassium (3.5 - 5.1 mmol/L) 3.7 Chloride (95 - 105 mmol/L) 109 H Carbon Dioxide (21 - 32 mmol/L) 20 L Anion Gap (4.0 - 15.0 GAP calc) 8.0 BUN (7 - 18 MG/DL) 13 Creatinine (0.55 - 1.30 MG/DL) 0.59 Glomerular Filtr Rate (>60 estGFR) 124 Glucose (70 - 110 MG/DL) 274 H Calcium (8.5 - 10.1 MG/DL) 8.2 L Specimen Appearance (1 NORMAL Index/DL) 1 NORMAL <2 MG Specimen Hemolysis (1 NORMAL Index/DL) 1 NORMAL <10 MG Coagulation D-Dimer (0 - 500 FEUng/mL) 295 Hematology WBC (4.1 - 12.1 K/mm3) 10.1 RBC (3.8 - 5.5 M/mm3) 3.82 Hgb (10.6 - 15.8 G/DL) 10.4 L Hct (31.8 - 47.4 %) 30.8 L MCV (80.1 - 101.1 fL) 80.6 MCH (25.3 - 35.3 pg) 27.2 MCHC (32.7 - 35.1 G/DL) 33.8 RDW (12.2 - 16.4 %) 13.8 Plt Count (155 - 337 K/mm3) 264 MPV (6.8 - 11.2 fL) 9.6 Serology SARS-CoV-2 Ag (Rapid) (Neg) Negative Urines Urine Color (YELLOW DESCRIPT) LIGHT-YELLOW Urine Appearance (CLEAR DESCRIPT) CLEAR Urine pH (4.6 - 8.0 pH UNITS) 6.5 Ur Specific Rarden (1.001 - 1.035 SG) 1.030 Urine Protein ((NEG) <30 mg/dL) 20 (TRACE) H Urine Glucose (UA) (0 (NORMAL) mg/dL) OVER >1000 (4+) H Urine Ketones ((NEG) 0 mg/dL) 20 (1+) H Urine Blood (0 (NEG) mg/dL) NEGATIVE (0.00) Urine Nitrite (NEG SCREEN) NEGATIVE (0) Urine Bilirubin ((NEG) 0 mg/dL) NEGATIVE (0.0) Urine Urobilinogen ((NORM)<2.0 mg/Dl) NORMAL (0) Ur Leukocyte Esterase ((NEG) 0 Leuk/mcL) NEGATIVE (0) Urine RBC (0 - 3 #RBC/HPF) 0-3 Urine WBC (0 - 3 #WBC/HPF) 0-3 Ur Squamous Epith Cells (NONE - SQepi /UL) FEW >2 Urine Bacteria (NONE - FEW /HPF) FEW >1 Urine Mucus (NONE /LPF) RARE Urine Culture Screen (Cult byWBC Criteria) Crit NOTmet CULT-N/A Urine Comment (SpecComment NoteSPEC) SPECIMEN COMMENT Diagnosis, Assessment Plan Free Text DxA P Notes Free Text DxA P Notes: 32 y/o at 25 weeks and 6 days with history of diabetes, HTN, bipolar disorder, and ADHD presenting today with chief complaint of dyspnea on excertion , orthopnea, LE swelling, cough, congestion, and generalized malaise x week and a half. Dyspnea Pulmonary Edema 2/2 Possible CHF - vitals: afebrile, p 94, RR 18, BP 148/92, 98% O2 on RA - pertinent labs: WBC 10.1, Hbg 10.4, trop <4, BNP<30, D-dimer 295 * ABG- pCO2 31, PO2 70, HCO3 19.7 - CXR: diffuse interstitial opacities in both lungs due to pulmonary edema versus pneumonia - Given IV Lasix 20 mg, Rocephin 1gm in ED - echo ordered - consult cards Pneumonia 2/2 URI - covid, flu negative Hypertension - labile blood pressures, 113-162/55-92 - order Labetalol 200 mg BID T2 Diabetes Mellitus - glucose 274 - cont home regimen lantus 60 units BID, Humulog at mealtimes- 50,60,60 - order A1c 2nd trimester - BPP: viable fetus with heart rate of 150 bpm - consult OB (Dr. Davalos) - order 24-hr urine protein, LFTs Comorbidities Depression- zoloft 100mg Bipolar- Seroquel 100mg Diet- diabetic Dispo- pending labs, echo, cardiology recs, Ob recs Patient seen and evaluated with Dr. Orozco and case discussed with Sobia Selby R1 11/13/22 2009: Diagnosis, Assessment Plan Free Text DxA P Notes Free Text DxA P Notes: Transfer from hospitalist team. Pt seen at bedside with Dr. Delarosa. Vitals stable. Lungs CTAB but pt still reports some dyspnea and orthopnea. Ordering echo and cards consult. Will continue home DM regimen, order A1C, and f/u blood glucose. BPP 8/8, Heart tones 150. Ordered LFTs and 24 hour urine protein. Further OB mgmt per Dr. Davalos. We will continue medical mgmt. Gibran Garnica 11/14/22 0925: Diagnosis, Assessment Plan Additional comments: Pt discussed w residents by phone at time of admit, agreed w initial plans Quite high risk given her morbid obesity, chronic HTN, DM2 on insulin Some improvement to sxs since admit; echo read pending, cardio eval pending lovenox prophylax dosing for now low susp. for an infection/pneumonia, covid and flu tests neg increase insulin dosing to better control BG a1c encouraging at <7% at 2000 at 2016 at 0931 RPT #:[id number] END OF REPORT [facility]MER[facility] 2022-11-13 17:01:00 [facility] ([facility]) Hospitalist Consultation REPORT#:[id number] REPORT STATUS: Signed REPORT INITIALIZATION DATE:11/13/22 TIME: 1701 PATIENT: AMINTA NINO UNIT #: [id number] ROOM/BED: [facility] : [facility] AGE: 32 SEX: F ATTEND: Gibran Garnica MD ADM AUTHOR: Karel Jeter MD REPT SERVICE DT/TIME: 11/13/22 170 * ALL edits or amendments must be made on the electronic/computer document * History of Present Illness HPI: Patient is a pleasant 32-year-old female G2, P0 who had miscarriage few years back 7 weeks of presents emergency room complaining of dyspnea on exertion orthopnea PND and lower extremity swelling patient reports that she was recently seen by cardiology and scheduled to get echocardiogram and event monitor as outpatient patient reports her shortness of breath progressively got worse and she could not ambulate without getting significantly short of breath patient reports chest pain central chest pain with radiation to her back reports it feels like heavy object on her chest when she breathes denies any fever denies any chills denies any nausea vomiting diarrhea on admit imaging patient was found to have possibly pulmonary edema internal medicine was consulted for medical management SR. 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 for this the primary question History - Adult longitudinal Additional medical history: bipolar, ADHD, OCD DM-taking metformin, insulin, HTN, Obesity Additional surgical history: Denies Alcohol use: Denies EtOH use Drug use: Denies recreational drugs Smoking status for patients 13 years old or older: Former Smoker Date last smoked: 08/13/19 Allergies: Coded Allergies: latex (SWELLING 11/15/22) Objective VS/I O Last Documented: Result Date Time Pulse Ox 95 11/13 1630 B/P 162/91 11/13 1630 B/P Mean 119 11/13 1630 Temp 98.3 11/13 1630 Pulse 99 11/13 1630 Resp 18 11/13 1630 O2 Delivery Room air 11/13 1445 Results Findings/Data: Laboratory Tests: 11/13 11/13 11/13 11/13 1719 1506 1433 1433 Blood Gas Puncture Site (DESCRIPTION Site) Venous VBG pH (7.32 - 7.42 pH units) 7.41 VBG pCO2 (41 - 51 mmHg) 31 L VBG pO2 (25 - 40 mmHg) 70 H VBG HCO3 (24 - 28 mmol/L) 19.7 L Chemistry POC Glucose (70 - 119 MG/DL) 229 H Troponin I High Sens (0 - 45 ng/L) < 4 B-Natriuretic Peptide (0.00 - 100.00 PG/ML) < 30.00 09/02 1433 Chemistry Sodium (133 - 144 mmol/L) 137.0 Potassium (3.5 - 5.1 mmol/L) 3.7 Chloride (95 - 105 mmol/L) 109 H Carbon Dioxide (21 - 32 mmol/L) 20 L Anion Gap (4.0 - 15.0 GAP calc) 8.0 BUN (7 - 18 MG/DL) 13 Creatinine (0.55 - 1.30 MG/DL) 0.59 Glomerular Filtr Rate (>60 estGFR) 124 Glucose (70 - 110 MG/DL) 274 H Calcium (8.5 - 10.1 MG/DL) 8.2 L Specimen Appearance (1 NORMAL Index/DL) 1 NORMAL <2 MG Specimen Hemolysis (1 NORMAL Index/DL) 1 NORMAL <10 MG Coagulation D-Dimer (0 - 500 FEUng/mL) 295 Hematology WBC (4.1 - 12.1 K/mm3) 10.1 RBC (3.8 - 5.5 M/mm3) 3.82 Hgb (10.6 - 15.8 G/DL) 10.4 L Hct (31.8 - 47.4 %) 30.8 L MCV (80.1 - 101.1 fL) 80.6 MCH (25.3 - 35.3 pg) 27.2 MCHC (32.7 - 35.1 G/DL) 33.8 RDW (12.2 - 16.4 %) 13.8 Plt Count (155 - 337 K/mm3) 264 MPV (6.8 - 11.2 fL) 9.6 Serology SARS-CoV-2 Ag (Rapid) (Neg) Negative Urines Urine Color (YELLOW DESCRIPT) LIGHT-YELLOW Urine Appearance (CLEAR DESCRIPT) CLEAR Urine pH (4.6 - 8.0 pH UNITS) 6.5 Ur Specific Rarden (1.001 - 1.035 SG) 1.030 Urine Protein ((NEG) <30 mg/dL) 20 (TRACE) H Urine Glucose (UA) (0 (NORMAL) mg/dL) OVER >1000 (4+) H Urine Ketones ((NEG) 0 mg/dL) 20 (1+) H Urine Blood (0 (NEG) mg/dL) NEGATIVE (0.00) Urine Nitrite (NEG SCREEN) NEGATIVE (0) Urine Bilirubin ((NEG) 0 mg/dL) NEGATIVE (0.0) Urine Urobilinogen ((NORM)<2.0 mg/Dl) NORMAL (0) Ur Leukocyte Esterase ((NEG) 0 Leuk/mcL) NEGATIVE (0) Urine RBC (0 - 3 #RBC/HPF) 0-3 Urine WBC (0 - 3 #WBC/HPF) 0-3 Ur Squamous Epith Cells (NONE - SQepi /UL) FEW >2 Urine Bacteria (NONE - FEW /HPF) FEW >1 Urine Mucus (NONE /LPF) RARE Urine Culture Screen (Cult byWBC Criteria) Crit NOTmet CULT-N/A Urine Comment (SpecComment NoteSPEC) SPECIMEN COMMENT Radiology data: Recent Impressions: RADIOLOGY - XR CHEST 1 V 11/13 1406 Report Impression - Status: SIGNED Entered: 11/13/2022 1420 IMPRESSION: Diffuse interstitial opacities in both lungs due to pulmonary edema versus pneumonia. Impression By: Zena Lockhart MD ULTRASOUND - US FET BIO PH FL W/O NST 11/13 1510 Report Impression - Status: SIGNED Entered: 11/13/2022 1621 IMPRESSION: 1. Viable fetus with heart rate of 150 bpm. 2. Biophysical profile score is 8 out of 8. 3. MATHEUS lower normal at 7.45 Impression By: [email or web address] - Misha Forman MD Interpretation I independently reviewed the [ ] and my interpretation is [ ] Diagnosis, Assessment Plan Free Text DxA P Notes Free Text DxA P Notes: 1. Hypoxic respiratory distress likely due to pneumonia versus CHF 2. Hypertension 3. Second trimester We will start broad-spectrum antibiotic for coverage for now patient needs echocardiogram we will check urine protein to creatinine ratio to rule out any proteinuria and anasarca COVID and influenza was negative continue monitor oxygenation Since patient belongs to other services will sign off to their service further recommendation per family medicine service at 0652 RPT #:[id number] END OF REPORT [facility] 2022-11-13 14:27:00 [facility] ([facility]) EMERGENCY PROVIDER REPORT REPORT#:[id number] REPORT STATUS: Signed DATE:11/13/22 TIME: 1426 PATIENT: AMINTA NINO UNIT #: [id number] ROOM/BED: [address] AGE: 32 SEX: F PCP PHYS: Tad Jordan MD SERVICE AUTHOR: Billy Fermin DO * ALL edits or amendments must be made on the electronic/computer document * HPI-General Illness General Initial Greet Date/Time 11/13/22 1338 Provider in Triage HPI Chief Complaint Abdominal pain, Shortness of breath PE General/Const Mild distress Presentation Chief Complaint Breathing problem, Congested, Multip medical complaints Free Text HPI Notes Free Text HPI Notes Patient presents with a chief complaint of cough congestion and generalized malaise for the past week and a half. Patient is currently 26 weeks . Today patient started have some lower abdominal cramping. Also noticed some lower extremity edema. Patient is a diabetic and states her sugars have been controlled. Patient is a G2, P1. Last ended in miscarriage. Review of Systems ROS Statements All systems rev neg except as marked. Review of Systems Constitutional Reports: Malaise. Respiratory Reports: Dyspnea on exertion, Shortness of breath. Past Medical History - Adult Stated Complaint WITH SOB Allergies Coded Allergies: latex (UNKNOWN 04/10/22) Home Medications Reported Medications QUEtiapine (SEROquel) 100 MG PO BEDTIME hydrOXYzine HCL (ATARAX) 50 MG PO QID PRN PRN ANXIOUS AMOXICILLIN (AMOXIL) 875 MG PO Q12HR INSULIN LISPRO (HumaLOG KWIKPEN (3mL)) 50 UNITS SUBQ QAM INSULIN LISPRO (HumaLOG KWIKPEN (3mL)) 60 UNITS SUBQ BID SERTRALINE (ZOLOFT) 100 MG PO DAILY INSULIN GLARGINE (LANTUS SOLOSTAR (15mL)) 0 UNITS SUBQ BID LABETALOL (TRANDATE) 150 MG PO DAILY Discontinued Reported Medications SERTRALINE (ZOLOFT) 50 MG PO DAILY 0800 Additional Medical History bipolar, ADHD, OCD DM-taking metformin, insulin, HTN, Obesity Additional Surgical History Denies Alcohol Use Denies EtOH use Drug Use Denies recreational drugs Smoking status for patients 13 years old or older: Unknown,if ever smoked Physical Exam Vital Signs Vital Signs First Documented: Result Date Time Pulse Ox 99 11/13 1338 B/P 136/79 11/13 1338 B/P Mean 98 11/13 1338 Temp 98.1 11/13 1338 Pulse 103 11/13 1338 Resp 18 11/13 1338 O2 Delivery Room air 11/13 1445 Last Documented: Result Date Time Pulse Ox 97 11/13 1600 B/P 113/55 11/13 1600 B/P Mean 73 11/13 1600 Temp 98.3 11/13 1600 Pulse 97 11/13 1600 Resp 18 11/13 1600 O2 Delivery Room air 11/13 1445 Review of Vital Signs Reviewed Physical Exam General/Const General/Const Awake, Alert MS Head Head Atraumatic, Normocephalic Eyes Eyes PERRL Ears/Nose/Throat Ears/Nose/Throat Airway patent MS Neck Neck Supple, No adenopathy, No swelling Resp/Chest Respiratory/Chest Breath sounds NL, Breath sounds = bilat, No respiratory distress Cardiovascular Cardiovascular Regular rhythm, Heart sounds NL, No gallop Abdomen/GI Text/Dict Notes Abdomen soft distended consistent with dates. MS Back Back Inspection NL MS Lower Extrem Text/Dict Notes Bilateral lower extreme edema Neurologic Neurologic Oriented X3, Speech NL Interpretation Diagnostics Lab Results Interpretation Results Laboratory Tests 11/13/22 1433: [Embedded Image Not Available] Laboratory Tests: 11/13 11/13 11/13 1506 1433 1433 Blood Gas Puncture Site (DESCRIPTION Site) Venous VBG pH (7.32 - 7.42 pH units) 7.41 VBG pCO2 (41 - 51 mmHg) 31 L VBG pO2 (25 - 40 mmHg) 70 H VBG HCO3 (24 - 28 mmol/L) 19.7 L Chemistry Troponin I High Sens (0 - 45 ng/L) < 4 B-Natriuretic Peptide (0.00 - 100.00 PG/ML) < 30.00 Urines Ur Random Creatinine (30 - 150 MG/DL) 89.4 U Random Total Protein (0.0 - 12.0 MG/DL) 39.2 H Protein/Creatinin Ratio (0.0 - 200.0 MG/GRAM) 438.0 H 11/13 11/13 1433 1422 Chemistry Sodium (133 - 144 mmol/L) 137.0 Potassium (3.5 - 5.1 mmol/L) 3.7 Chloride (95 - 105 mmol/L) 109 H Carbon Dioxide (21 - 32 mmol/L) 20 L Anion Gap (4.0 - 15.0 GAP calc) 8.0 BUN (7 - 18 MG/DL) 13 Creatinine (0.55 - 1.30 MG/DL) 0.59 Glomerular Filtr Rate (>60 estGFR) 124 Glucose (70 - 110 MG/DL) 274 H Hemoglobin A1c (4.5 - 5.6 % IS-A1C) 6.6 H Calcium (8.5 - 10.1 MG/DL) 8.2 L Specimen Appearance (1 NORMAL Index/DL) 1 NORMAL <2 MG Specimen Hemolysis (1 NORMAL Index/DL) 1 NORMAL <10 MG Coagulation D-Dimer (0 - 500 FEUng/mL) 295 Hematology WBC (4.1 - 12.1 K/mm3) 10.1 RBC (3.8 - 5.5 M/mm3) 3.82 Hgb (10.6 - 15.8 G/DL) 10.4 L Hct (31.8 - 47.4 %) 30.8 L MCV (80.1 - 101.1 fL) 80.6 MCH (25.3 - 35.3 pg) 27.2 MCHC (32.7 - 35.1 G/DL) 33.8 RDW (12.2 - 16.4 %) 13.8 Plt Count (155 - 337 K/mm3) 264 MPV (6.8 - 11.2 fL) 9.6 Serology SARS-CoV-2 Ag (Rapid) (Neg) Negative Urines Urine Color (YELLOW DESCRIPT) LIGHT-YELLOW Urine Appearance (CLEAR DESCRIPT) CLEAR Urine pH (4.6 - 8.0 pH UNITS) 6.5 Ur Specific Rarden (1.001 - 1.035 SG) 1.030 Urine Protein ((NEG) <30 mg/dL) 20 (TRACE) H Urine Glucose (UA) (0 (NORMAL) mg/dL) OVER >1000 (4+) H Urine Ketones ((NEG) 0 mg/dL) 20 (1+) H Urine Blood (0 (NEG) mg/dL) NEGATIVE (0.00) Urine Nitrite (NEG SCREEN) NEGATIVE (0) Urine Bilirubin ((NEG) 0 mg/dL) NEGATIVE (0.0) Urine Urobilinogen ((NORM)<2.0 mg/Dl) NORMAL (0) Ur Leukocyte Esterase ((NEG) 0 Leuk/mcL) NEGATIVE (0) Urine RBC (0 - 3 #RBC/HPF) 0-3 Urine WBC (0 - 3 #WBC/HPF) 0-3 Ur Squamous Epith Cells (NONE - SQepi /UL) FEW >2 Urine Bacteria (NONE - FEW /HPF) FEW >1 Urine Mucus (NONE /LPF) RARE Urine Culture Screen (Cult byWBC Criteria) Crit NOTmet CULT-N/A Urine Comment (SpecComment NoteSPEC) SPECIMEN COMMENT Microbiology: Date/Time Procedure - Status Source Growth 11/13 143 Influenza Virus Type B Antigen - COMP NASAL 11/13 143 Influenza Virus Type A Antigen - COMP NASAL Recent Impressions: RADIOLOGY - XR CHEST 1 V 11/13 1406 Report Impression - Status: SIGNED Entered: 11/13/2022 1420 IMPRESSION: Diffuse interstitial opacities in both lungs due to pulmonary edema versus pneumonia. Impression By: Zena Lockhart MD ULTRASOUND - US FET BIO PH FL W/O NST 11/13 1510 Report Impression - Status: SIGNED Entered: 11/13/2022 1621 IMPRESSION: 1. Viable fetus with heart rate of 150 bpm. 2. Biophysical profile score is 8 out of 8. 3. MATHEUS lower normal at 7.45 Impression By: [email or web address] - Misha Forman MD Re-Evaluation MDM Free Text MDM Notes Additional Text Medical decision making Number and complexity of problems Differential diagnosis: COVID, flu, URI, pneumonia, CHF, , DKA MDM data External documents reviewed: My EKG interpretation My CT interpretation N/A My x-ray interpretation pulmonary edema versus infiltrate My ultrasound interpretation: Reviewed ultrasound report Labs reviewed by me; Decision rules/scores evaluated Discussed with; Dr. Booth from OB for consultation secondary to pulmonary edema and , Dr. Damico for admission I considered admission for: Pulmonary edema, , shortness of breath Treatment and disposition: Evaluation for shortness of breath. Lasix, antibiotics admission ED course: Patient with ongoing shortness of breath Shared decision making: Patient agrees to admission CODE STATUS: Full code ED Course Medication(s) Ordered Medication(s) Ordered: Anti-Infective Agents Sig/Deonna Start time Last Medication Dose Route Stop Time Status Admin Ceftriaxone Sodium 1 GM X1ED STA 11/13 1602 DC 11/13 Sterile Water 10 ML IV 11/13 1604 1623 Electrolytic, Caloric, And Ranulfo Sig/Deonna Start time Last Medication Dose Route Stop Time Status Admin Furosemide 20 MG X1ED STA 11/13 1602 DC / IV 11/13 1603 1623 Patient Discharge Departure Vital Signs/Condition Vital Signs First Documented: Result Date Time Pulse Ox 99 11/13 1338 B/P 136/79 11/13 1338 B/P Mean 98 11/13 1338 Temp 98.1 11/13 1338 Pulse 103 11/13 1338 Resp 18 11/13 1338 O2 Delivery Room air 11/13 1445 Last Documented: Result Date Time Pulse Ox 97 11/13 1600 B/P 113/55 11/13 1600 B/P Mean 73 11/13 1600 Temp 98.3 11/13 1600 Pulse 97 11/13 1600 Resp 18 11/13 1600 O2 Delivery Room air 11/13 1445 All vital signs available at the time of this entry have been reviewed. Clinical Impression Clinical Impression Primary Impression: Secondary Impressions: Pneumonia, Pulmonary edema Disposition Decision Hospitalize Hosp Physician Name Karel Jeter MD Hosp Physician Hospitalist Request Time 1605 Request Date 11/13/22 )( Accepts Hospitalization Yes )( Accepted Time 1605 )( Accepted Date 11/13/22 Call Information will see patient, agrees with eval, agrees with plan at 0835 RPT #:[id number] END OF REPORT [facility] 2022-11-13 13:42:00 [facility] ([facility]) EMERGENCY PROVIDER REPORT REPORT#:[id number] REPORT STATUS: Signed DATE:11/13/22 TIME: 1342 PATIENT: AMINTA NINO UNIT #: [id number] ROOM/BED: AGE: 32 SEX: F PCP PHYS: Tad Jordan MD SERVICE DT: AUTHOR: Giovana Davies APRN * ALL edits or amendments must be made on the electronic/computer document * Provider in Triage - Adult Provider in Triage Initial Greet Date/Time 11/13/22 1338 Greet Note I have greeted and performed a focused rapid initial assessment of this patient. A comprehensive ED assessment and evaluation of the patient, analysis of all test results, and completion of the medical decision-making process will be conducted by additional ED providers. HPI Chief Complaint Abdominal pain, Shortness of breath ROS Reports: Shortness of breath, Abdominal pain. All systems rev neg except as marked. PE General/Const Mild distress MSE Not Complete The medical screening exam is not complete. Further evaluation and/or treatment is required. The patient will be re-directed to the emergency department. PMH-Provider in Triage Stated Complaint WITH SOB Allergies Coded Allergies: latex (UNKNOWN 04/10/22) Home Medications Reported Medications QUEtiapine (SEROquel) 50 MG PO BEDTIME SERTRALINE (ZOLOFT) 50 MG PO DAILY 0800 Additional Medical History bipolar, ADHD, OCD DM-taking metformin, insulin, HTN, Obesity Additional Surgical History Denies Alcohol Use Denies EtOH use Drug Use Denies recreational drugs Smoking status: Smoking status for patients 13 years old or older: Unknown,if ever smoked at 1342 RPT #:[id number] END OF REPORT [facility] 2022-08-21 13:28:00 [phone] [place] [id number] PATIENT NAME: AMINTA NINO ADMIT DATE: 08/19/22 ACCOUNT NO: [id number] ROOM NO: [facility] AGE: 32 REPORT TYPE: DISCHARGE SUMMARY SEX: F ADMITTING PHYSICIAN:Gavino Mercado MD ATTENDING PHYSICIAN:Gavino Mercado MD ADMISSION DATE: 08/19/2022 18:18:00 DISCHARGE DATE: 08/21/2022 12:48:00 HOSPITAL COURSE: A 32-year-old female who seems to be running out of medicine all the time. Says, she is doing fine. PHYSICAL EXAMINATION: LUNGS: Clear. HEART: Regular. ABDOMEN: Soft. NEUROLOGIC: Nonfocal exam. I reviewed note from Dr. Craven. It seems that the medication has been already arranged for her to nut picker. I did not send a new prescription. DISCHARGE DIAGNOSES: Uncontrolled diabetes, . She does go see a high risk OB. Dictated By: Kay Merchant MD Date Dictated: 08/21/2022 13:28:21 Date Transcribed: 08/21/2022 22:04:27 DADA/JEREMIAH Receipt ID: [id number] Authenticated by Kay Merchant MD On 08/22/2022 02:15:19 PM at 0215 PATIENT NAME: AMINTA NINO [facility] 2022-08-20 16:13:00 [id number] [place] [id number] PATIENT NAME: AMINTA NINO ADMIT DATE: 08/19/22 ACCOUNT NO: [id number] ROOM NO: B.123 AGE: 32 REPORT TYPE: DISCHARGE SUMMARY SEX: F ADMITTING PHYSICIAN:Gavino Meracdo MD ATTENDING PHYSICIAN:Gavino Mercado MD ADMISSION DATE: 08/19/2022 18:18:00 DISCHARGE DATE: PRIMARY CARE PHYSICIAN: Dr. Tad Jordan. HOSPITAL COURSE: The patient is a 32-year-old lady with past medical history significant for type 1 diabetes, hypertension, who takes 36 units of Lantus twice a day and 38 units of Humalog 3 times a day. She ran out of her insulin and so had to be brought to the Emergency Room as her pharmacy said that they could not refill the prescription until 4 days from now. I have had a detailed discussion with the pharmacist by the name of Ms. Driscoll. She explained to me that this patient has been having an increasing requirement of insulin and despite the recommendations that the doctor has been writing, she seems to run out of those prescriptions 2 or 3 days ahead. I talked to the patient and she says she has been strictly following the instruction, but based on her sugar numbers, her doctors keep on increasing the amount of insulin and so that is why she runs out. We have discussed a device in which I am giving her a sliding scale and she will be now getting up to 50 units of Humalog with meals and up to 50 units of Lantus twice a day and that way, she will have the variation. The pharmacist has accepted that and is going to give her Lantus as well as her Humalog enough to be able to capture that for the weekend and then they will have fresh supplies by Tuesday. The patient herself is okay with that. We have verified with the pharmacist that there is enough medicine in them for them to be able to give it. The patient is happy, she is going to communicate with her mom and she will be discharged. She will follow up with her primary care physician. I have advised her that if for whatever reason, her insulin supplies are not there and she runs out, she has to come here as she is and obviously her SR. DIRECTOR PRODUCT MANAGEMENT has instructed her to have blood sugars less than 200. Dictated By: Gavino Craven MD Date Dictated: 08/20/2022 16:13:07 Date Transcribed: 08/20/2022 23:54:13 /ZEE Receipt ID: [id number] Authenticated by Gavino Craven MD On 08/31/2022 04:25:36 PM PATIENT NAME: AMINTA NINO at 0425 PATIENT NAME: AMINTA NINO [facility] 2022-08-20 16:12:00 [facility] ([facility]) DT PROGRESS NOTE REPORT#:[id number] REPORT STATUS: Signed DATE:08/20/22 TIME: 161 PATIENT: AMINTA NINO UNIT #: [id number] ROOM/BED: [address] : 92 AGE: 32 SEX: F ATTEND: Gavino Mercado MD ADM AUTHOR: Gavino Craven MD * ALL edits or amendments must be made on the electronic/computer document * Progress Note Progress Note [id number] at 1613 RPT #:[id number] END OF REPORT [facility] 2022-08-19 23:34:00 [facility] ([facility]) Hospitalist History Physical REPORT#:[id number] REPORT STATUS: Signed DATE:08/19/22 TIME: 2334 PATIENT: AMINTA NINO UNIT #: [id number] [facility] AGE: 32 SEX: F ATTEND: Gavino Mercado MD ADM AUTHOR: Gavino Mercado MD * ALL edits or amendments must be made on the electronic/computer document * History of Present Illness HPI Chief complaint: Hypoglycemia PCP: PCP: Tad Jordan MD HPI: This is a 32-year-old female who is 13 weeks has history of diabetes hypertension she takes 36-unit of Lantus twice a day and 38 units of Humalog 3 times a day she ran out of Humalog and her blood sugar was around [address] Srinivasan who is her SR. DIRECTOR PRODUCT MANAGEMENT who advised her to come to the ER meanwhile patient says that she had an ultrasound done which showed a viable fetus she denies any nausea vomiting diarrhea abdominal pain hematemesis melena blood in stool History Past Medical Surgical Hx Additional medical history: bipolar, ADHD, OCD DM-taking metformin, insulin, HTN, Obesity Additional surgical history: Denies Social History Alcohol use: Denies EtOH use Drug use: Denies recreational drugs Smoking status for patients 13 years old or older: Never Smoker Medication/Allergy-Vaccine Hx Medications: Laboratory Tests: 08/19 1823 Chemistry Sodium (133 - 144 mmol/L) 138.0 Potassium (3.5 - 5.1 mmol/L) 3.8 Chloride (95 - 105 mmol/L) 104 Carbon Dioxide (21 - 32 mmol/L) 24 Anion Gap (4.0 - 15.0 GAP calc) 10.0 BUN (7 - 18 MG/DL) 12 Creatinine (0.55 - 1.30 MG/DL) 0.64 Glomerular Filtr Rate (>60 estGFR) 122 Glucose (70 - 110 MG/DL) 309 H POC Glucose (70 - 119 MG/DL) 320 H Calcium (8.5 - 10.1 MG/DL) 8.9 Total Bilirubin (0.00 - 1.00 MG/DL) 0.40 Direct Bilirubin (0.00 - 0.30 MG/DL) < 0.10 Indirect Bilirubin (0.2 - 1.3 MG/DL) 0.40 AST (15 - 37 Unit/L) 13 L ALT (12 - 78 Unit/L) 22 Total Alk Phosphatase (45 - 117 Unit/L) 92 Total Protein (6.4 - 8.2 G/DL) 7.8 Albumin (3.4 - 5.0 G/DL) 3.1 L Albumin/Globulin Ratio (1.2 - 2.2 RATIO) 0.7 L Specimen Appearance (1 NORMAL Index/DL) 1 NORMAL <2 MG Specimen Hemolysis (1 NORMAL Index/DL) 1 NORMAL <10 MG Hematology WBC (4.1 - 12.1 K/mm3) 12.9 H RBC (3.8 - 5.5 M/mm3) 4.22 Hgb (10.6 - 15.8 G/DL) 11.8 Hct (31.8 - 47.4 %) 34.1 MCV (80.1 - 101.1 fL) 80.8 MCH (25.3 - 35.3 pg) 28.0 MCHC (32.7 - 35.1 G/DL) 34.6 RDW (12.2 - 16.4 %) 12.5 Plt Count (155 - 337 K/mm3) 331 MPV (6.8 - 11.2 fL) 9.0 Gran % (37.8 - 82.6 %) 68.5 Lymph % (Auto) (14.1 - 45.4 %) 23.5 [place] % (Auto) (2.5 - 11.7 %) 6.7 Eos % (Auto) (0.0 - 6.2 %) 0.5 Baso % (Auto) (0.0 - 2.1 %) 0.2 Gran # (2.0 - 13.7 k/mm3) 8.85 Lymph # (Auto) (0.6 - 3.8 K/mm3) 3.04 [place] # (Auto) (0.11 - 0.59 K/mm3) 0.86 H Eos # (Auto) (0.0 - 0.4 K/mm3) 0.06 Baso # (Auto) (0.0 - 0.1 K/mm3) 0.03 Immature Gran % (0.0 - 2.0 %) 0.6 Nucleated RBC % (0.0 - 1.0 /100WBC%) 0.0 Nucleated RBCs # (0.0 - 0.05 K/mm3) 0.00 Urines Urine Color (YELLOW DESCRIPT) LIGHT-YELLOW Urine Appearance (CLEAR DESCRIPT) TURBID (1+)HAZY-CLDY H Urine pH (4.6 - 8.0 pH UNITS) 7.5 Ur Specific Rarden (1.001 - 1.035 SG) 1.030 Urine Protein ((NEG) <30 mg/dL) NEGATIVE (0) Urine Glucose (UA) (0 (NORMAL) mg/dL) OVER >1000 (4+) H Urine Ketones ((NEG) 0 mg/dL) 10 (1+) H Urine Blood (0 (NEG) mg/dL) NEGATIVE (0.00) Urine Nitrite (NEG SCREEN) NEGATIVE (0) Urine Bilirubin ((NEG) 0 mg/dL) NEGATIVE (0.0) Urine Urobilinogen ((NORM)<2.0 mg/Dl) NORMAL (0) Ur Leukocyte Esterase ((NEG) 0 Leuk/mcL) NEGATIVE (0) Urine RBC (0 - 3 #RBC/HPF) 0-3 Urine WBC (0 - 3 #WBC/HPF) 0-3 Ur Squamous Epith Cells (NONE - SQepi /UL) FEW >2 Amorphous Sediment (NONE - FEW #/mcL) RARE >0 Urine Bacteria (NONE - FEW /HPF) TRACE >0 Urine Mucus (NONE /LPF) RARE Urine Culture Screen (Cult byBC Criteria) Crit NOTmet CULT-N/A Urine Comment (SpecComment NoteSPEC) SPECIMEN COMMENT Active Meds + DC'd Last 24 Hrs Insulin Human Lispro (HUMALOG) 38 UNIT X1ED STA SUBQ (DC) Sodium Chloride (SODIUM CHLORIDE 0.9% 1000 ML) 1,000 ML X1ED STA IV (DC) Home Medications: QUEtiapine (SEROquel) 50 MG PO BEDTIME SERTRALINE (ZOLOFT) 50 MG PO DAILY 0800 Allergies: Coded Allergies: latex (UNKNOWN 04/10/22) Review of Systems Constitutional: Denies: chills, fatigue, fever, generalized weakness, lethargy, malaise, recent wt loss, other. Respiratory: Denies: LYNCH (dyspnea on exertion), hemoptysis, non productive cough, parox nocturnal dyspnea, pleurisy, pleuritic pain, pneumonia, productive cough (sputum ), SOB, wheezing, other. Cardiovascular: Denies: chest pain, LYNCH (dyspnea on exertion), edema, orthopnea, palpitations, parox nocturnal dyspnea, other. GI: Denies: abdominal pain, anorexia, constipation, diarrhea, dysphagia, GERD, hematemesis, hematochezia, hiatal hernia, melena, nausea, rectal pain, vomiting, other. Neuro: Denies: bladder dysfunction, bowel dysfunction, change in LOC, confusion, dizziness, focal weakness, gait problem, headache, lightheaded, numbness, seizure, slurred speech, spinning sensation, syncope, unable to speak, vision change, weakness, other. OBJECTIVE VS/I O: Vital Signs Date Temp Pulse Resp B/P B/P Mean Pulse Ox FiO2 08/19 36.8 101 16 160/86 110 97 Last Documented: Result Date Time Pulse Ox 97 08/19 1818 B/P 160/86 / 1818 B/P Mean 110 / 1818 O2 Delivery Room air 08/19 1817 Temp 36.8 08/19 1818 Pulse 101 08/19 1818 Resp 16 08/19 1818 Patient Weight and BMI Weight (kg): 106.818 BMI: 49.2 General appearance: awake Cardiovascular: regular rate rhythm Respiratory: decreased breath sounds Abdomen: non-tender Neuro/CYTOGENETICS TECHNOLOGIST: alert Diagnosis, Assessment Plan Free Text A P: Diabetes mellitus with hyperglycemia Out of insulin Continue her home insulin regimen Cover with insulin sliding scale 13-week Follow-up with Dr. Clay Hypertension Optimize blood pressure control DVT prophylaxis SCD advanced directive discussed Medication reviewed and reconciled I will sign off at 6 AM today further management by incoming MD thereafter at 2337 RPT #:[id number] END OF REPORT [facility] 2022-08-19 19:40:00 [facility] ([facility]) EMERGENCY PROVIDER REPORT REPORT#:[id number] REPORT STATUS: Signed DATE:08/19/22 TIME: 1939 PATIENT: AMINTA NINO UNIT #: [id number] ROOM/BED: B123-W AGE: 32 SEX: F PCP PHYS: Tad Jordan MD SERVICE AUTHOR: Paul Dykes * ALL edits or amendments must be made on the electronic/computer document * Paul Dykes 08/19/221939: HPI-General Illness Free Text HPI Notes Free Text HPI Notes Patient is a 32-year-old female with past medical history diabetes and hypertension who presents to the ER complaining of hyperglycemia. Patient states she ran out of her Humalog today, takes 38 units 3 times a day and her blood sugar has been running on the low 200s. Patient states she will not be able to get her insulin until 08/23. Patient states she is currently about 13 weeks and was told by her OB doctor to come to the ER for sugar control since she has had a miscarriage before due to hypoglycemia. Patient denies any abdominal pain, pelvic pain, nausea, vomiting, diarrhea, fever, chills, dysuria or any other symptoms. Denies EtOH, smoking or drug use LMP-04/26 General Confirmed Patient Yes Patient Type New patient Initial Greet Date/Time 08/19/221818 Assumed Care at Time 1939 Date 08/19/22 Presentation Chief Complaint Elevated BG Hx Obtained From Patient Sudden in Onset? No Onset Occurred Today Pain/Sev: Current No pain currently Associated with Denies: Abdominal pain, Anorexia, Aura, Bleeding, Bruising, Chest pain, Congestion, Cough, Diaphoresis, Difficulty breathing, Difficulty swallowing, Discharge, Dizziness, Fever, Headache, Inability to bear weight, Itching, Joint pain, Loss of consciousness, Loss of taste, Loss of smell, Nasal discharge, Nausea, Neck pain, Numb extremities, Off balance, Pain, Pain on walking, Rash, Shortness of breath, Speech abnormal, Syncope, Vision change, Vomiting, Weak extremity, Weakness. Associated Other Pt denies other symptoms Review of Systems ROS Statements All systems rev neg except as marked. Review of Systems Endocrine Denies: Polydipsia, Polyphagia, Polyuria, Weight gain, Weight loss. Past Medical History - Adult Stated Complaint HIGH BGL Allergies Coded Allergies: latex (UNKNOWN 04/10/22) Home Medications Reported Medications QUEtiapine (SEROquel) 50 MG PO BEDTIME SERTRALINE (ZOLOFT) 50 MG PO DAILY 0800 Pt reports no significant: Family history Physical Exam Vital Signs Vital Signs First Documented: Result Date Time Pulse Ox 97 08/19 1817 B/P 160/86 08/19 181 B/P Mean 110 08/19 1817 O2 Delivery Room air 08/19 1817 Temp 98.2 08/19 1817 Pulse 101 08/19 1817 Resp 16 08/19 1817 Last Documented: Result Date Time Pulse Ox 97 08/19 1817 B/P 160/86 08/19 1817 B/P Mean 110 08/19 1817 O2 Delivery Room air 08/19 1817 Temp 98.2 08/19 1817 Pulse 101 08/19 1817 Resp 16 08/19 1817 Review of Vital Signs Unavailable, Vital signs abnormal Basic Physical Exam Basic PE GEN: Well appearing/NAD, HEAD: Atraumatic/NC, EYES: PERRL, conj clear, ENT: Membranes moist, NECK: Supple, RESP: No resp distress, CV: Reg rate rhythm, ABD: Soft/non-tender, EXT: No gross abnormality, SKIN: No rashes, warm/ dry, NEURO: alert oriented, NEURO: gross movement NL, PSYCH: NL thought content Physical Exam Abdomen/GI Abdomen/GI Atraumatic, Soft, Non-tender, McBurney's non-tender, No guarding, No rebound, BS normoactive, No distention, No hernia, No palpable mass, No pulsatile mass Interpretation Diagnostics Lab Results Interpretation Results Laboratory Tests 08/19/221822: [Embedded Image Not Available] Laboratory Tests: 08/19 1822 Chemistry Sodium (133 - 144 mmol/L) 138.0 Potassium (3.5 - 5.1 mmol/L) 3.8 Chloride (95 - 105 mmol/L) 104 Carbon Dioxide (21 - 32 mmol/L) 24 Anion Gap (4.0 - 15.0 GAP calc) 10.0 BUN (7 - 18 MG/DL) 12 Creatinine (0.55 - 1.30 MG/DL) 0.64 Glomerular Filtr Rate (>60 estGFR) 122 Glucose (70 - 110 MG/DL) 309 H Calcium (8.5 - 10.1 MG/DL) 8.9 Total Bilirubin (0.00 - 1.00 MG/DL) 0.40 Direct Bilirubin (0.00 - 0.30 MG/DL) < 0.10 Indirect Bilirubin (0.2 - 1.3 MG/DL) 0.40 AST (15 - 37 Unit/L) 13 L ALT (12 - 78 Unit/L) 22 Total Alk Phosphatase (45 - 117 Unit/L) 92 Total Protein (6.4 - 8.2 G/DL) 7.8 Albumin (3.4 - 5.0 G/DL) 3.1 L Albumin/Globulin Ratio (1.2 - 2.2 RATIO) 0.7 L Specimen Appearance (1 NORMAL Index/DL) 1 NORMAL <2 MG Specimen Hemolysis (1 NORMAL Index/DL) 1 NORMAL <10 MG Hematology WBC (4.1 - 12.1 K/mm3) 12.9 H RBC (3.8 - 5.5 M/mm3) 4.22 Hgb (10.6 - 15.8 G/DL) 11.8 Hct (31.8 - 47.4 %) 34.1 MCV (80.1 - 101.1 fL) 80.8 MCH (25.3 - 35.3 pg) 28.0 MCHC (32.7 - 35.1 G/DL) 34.6 RDW (12.2 - 16.4 %) 12.5 Plt Count (155 - 337 K/mm3) 331 MPV (6.8 - 11.2 fL) 9.0 Gran % (37.8 - 82.6 %) 68.5 Lymph % (Auto) (14.1 - 45.4 %) 23.5 [place] % (Auto) (2.5 - 11.7 %) 6.7 Eos % (Auto) (0.0 - 6.2 %) 0.5 Baso % (Auto) (0.0 - 2.1 %) 0.2 Gran # (2.0 - 13.7 k/mm3) 8.85 Lymph # (Auto) (0.6 - 3.8 K/mm3) 3.04 [place] # (Auto) (0.11 - 0.59 K/mm3) 0.86 H Eos # (Auto) (0.0 - 0.4 K/mm3) 0.06 Baso # (Auto) (0.0 - 0.1 K/mm3) 0.03 Immature Gran % (0.0 - 2.0 %) 0.6 Nucleated RBC % (0.0 - 1.0 /100WBC%) 0.0 Nucleated RBCs # (0.0 - 0.05 K/mm3) 0.00 Urines Urine Color (YELLOW DESCRIPT) LIGHT-YELLOW Urine Appearance (CLEAR DESCRIPT) TURBID (1+)HAZY-CLDY H Urine pH (4.6 - 8.0 pH UNITS) 7.5 Ur Specific Rarden (1.001 - 1.035 SG) 1.030 Urine Protein ((NEG) <30 mg/dL) NEGATIVE (0) Urine Glucose (UA) (0 (NORMAL) mg/dL) OVER >1000 (4+) H Urine Ketones ((NEG) 0 mg/dL) 10 (1+) H Urine Blood (0 (NEG) mg/dL) NEGATIVE (0.00) Urine Nitrite (NEG SCREEN) NEGATIVE (0) Urine Bilirubin ((NEG) 0 mg/dL) NEGATIVE (0.0) Urine Urobilinogen ((NORM)<2.0 mg/Dl) NORMAL (0) Ur Leukocyte Esterase ((NEG) 0 Leuk/mcL) NEGATIVE (0) Urine RBC (0 - 3 #RBC/HPF) 0-3 Urine WBC (0 - 3 #WBC/HPF) 0-3 Ur Squamous Epith Cells (NONE - SQepi /UL) FEW >2 Amorphous Sediment (NONE - FEW #/mcL) RARE >0 Urine Bacteria (NONE - FEW /HPF) TRACE >0 Urine Mucus (NONE /LPF) RARE Urine Culture Screen (Cult byBC Criteria) Crit NOTmet CULT-N/A Urine Comment (SpecComment NoteSPEC) SPECIMEN COMMENT Lab Statement Laboratory studies reviewed and considered in the medical decision-making. Re-Evaluation MDM Re-Evaluation/Progress #1 Re-Eval Status Improved ED Course Medication(s) Ordered Medication(s) Ordered: Electrolytic, Caloric, And Ranulfo Sig/Deonna Start time Last Medication Dose Route Stop Time Status Admin Sodium Chloride 1,000 ML X1ED STA 08/19 1821 DC 08/19 IV 08/19 1822 1842 Hormones And Synthetic Substit Sig/Deonna Start time Last Medication Dose Route Stop Time Status Admin Insulin Human Lispro 38 UNIT X1ED STA 08/19 2019 DC 08/19 SUBQ 08/19 Free Text MDM Notes Free Text MDM Notes Number and complexity of problems: Complex Differential diagnosis considered but not limited to: Hyperglycemia, DKA, dehydration, UTI, electrolyte imbalance MDM data: [] External documents reviewed [N/A] My EKG interpretation: [N/A] My CT interpretation: [N/A] My x-ray interpretation: [N/A] My ultrasound interpretation: Labs reviewed by me: CBC normal, CMP normal except for elevated BG, urine positive for glucose/ketones Decision rules/scores evaluated: [N/A] Discussed with: Dr. Friedman and Dr. Mercado Consider admission for: Hyperglycemia Treatment and disposition: Admit Code status: Full ED course: Patient is well-appearing, nontoxic, tolerating p.o. Discussed treatment plan to admit for observation. Patient verbalized understanding and agrees with plan. Patient Discharge Departure Vital Signs/Condition Vital Signs First Documented: Result Date Time Pulse Ox 97 / 1818 B/P 160/86 / 1818 B/P Mean 110 /08 1818 O2 Delivery Room air / 1818 Temp 98.2 / 1818 Pulse 101 / 1818 Resp 16 08/19 1818 Last Documented: Result Date Time Pulse Ox 97 / 1818 B/P 160/86 /08 1818 B/P Mean 110 /08 1818 O2 Delivery Room air / 1818 Temp 98.2 / 1818 Pulse 101 / 1818 Resp 16 08/19 1818 All vital signs available at the time of this entry have been reviewed. Clinical Impression Clinical Impression Primary Impression: Hyperglycemia Secondary Impressions: Diabetes mellitus case management patient Time of Impression 2020 Disposition Decision Hospitalize Hosp Physician Name Gavino Mercado MD [facility] Physician Hospitalist Request Time 2021 Request Date 08/19/22 )( Accepts Hospitalization Yes )( Reason for Hospitalization Hyperglycemia )( Accepted Time 2021 )( Accepted Date 08/19/22 Call Information will see patient, agrees with eval, agrees with plan Discharge/Care Plan Counseled Regarding Diagnosis, Lab results, Need for admission Admit Note I have spoken with the patient and/or caregivers. I have explained the patient's condition, diagnoses and treatment plan based on the information available to me at this time. I have answered the patient's and/or caregiver's questions and addressed any concerns. The patient and/or caregivers have as good an understanding of the patient's diagnosis, condition and treatment plan as can be expected at this point. The patient has been stabilized within the capability of the emergency department. The patient will be transported for further care and management or will be moved to an observation or inpatient service. I have communicated with the staff or medical practitioner taking over this patient's care. Isidro Friedman 09/04/22 3030: Patient Discharge Departure Supervising Physician Note MidLv/Doc Saw Pt 2 The PA/SERVICE DELIVERY ANALYST has seen the patient and I have performed this visit along with the involvement of the PA/SERVICE DELIVERY ANALYST. I agree with the PA/game preserve manager findings and plan. I have performed all aspects of MDM as documented including: evaluation of the patient/ patient's condition(s), review and analysis of available data, and determination of risk of patient management decisions. at 1659 at 2305 [facility] #:[id number] END OF REPORT [facility] 2022-08-10 16:28:00 [facility] ([facility]) EMERGENCY PROVIDER REPORT REPORT#:[id number] REPORT STATUS: Signed DATE:08/10/22 TIME: 1628 PATIENT: AMINTA NINO UNIT #: [id number] ROOM/BED: AGE: 32 SEX: F PCP PHYS: Tad Jordan MD SERVICE AUTHOR: Renita Ballard MD * ALL edits or amendments must be made on the electronic/computer document * HPI-General Illness Free Text HPI Notes Free Text HPI Notes 32-year-old female 12 weeks presents with elevated blood sugars after running out of her insulin this weekend. She also reports a fall through the floor this weekend for which she went to [place]. She is still having significant pain in her shoulder and at that time they did not do an x-ray because she was . She was finally able to get her insulin filled and it is ready at the pharmacy. She was concerned because her blood sugars were elevated and its caused her to miscarry in the past. She sees Dr. Clay for OB. General Confirmed Patient Yes Patient Type New patient Initial Greet Date/Time 08/10/22 1330 Provider in Triage HPI Chief Complaint DIXZXY/ PRE / OUT OF HER INSULIN Onset Occurred Today Severity Pain level 0 out of 10 PE General/Const No acute distress HEENT DRY ORAL MUCOSA Presentation Chief Complaint __ (hyperglycemia) Review of Systems ROS Statements All systems rev neg except as marked. Free Text ROS Notes Free Text ROS Notes Review of systems: Constitutional: no fever Eyes: no vision change Ear nose and throat: no pain Respiratory: no cough no shortness of breath Cardiovascular: no chest pain GI: no abdominal pain or diarrhea Musculoskeletal: Positive for chronic back pain that seems a bit worse during with no bowel or bladder incontinence no saddle anesthesia or leg weakness Neuro: no change in mental status Past Medical History - Adult Stated Complaint HIGH BGL Allergies Coded Allergies: latex (UNKNOWN 04/10/22) Calculated Suicide Risk (nurs) No risk Additional Medical History bipolar, ADHD, OCD DM-taking metformin, insulin, HTN, Obesity Additional Surgical History Denies Alcohol Use Denies EtOH use Drug Use Denies recreational drugs Smoking status for patients 13 years old or older: Current every day smoker Physical Exam Vital Signs Vital Signs First Documented: Result Date Time Pulse Ox 99 08/10 1329 B/P 151/92 08/10 1329 B/P Mean 111 08/10 1329 Temp 98.4 08/10 132 Pulse 106 08/10 1329 Resp 18 08/10 1329 Last Documented: Result Date Time Pulse Ox 99 08/10 1918 B/P 126/67 08/10 191 Pulse 94 08/10 191 Resp 18 08/10 191 B/P Mean 111 08/10 1329 Temp 98.4 08/10 1329 Review of Vital Signs Reviewed, Vital signs abnormal Free Text PE Notes Free Text PE Notes General appearance: no acute distress HEENT: atraumatic, no trismus clear voice Neck: no meningismus Respiratory: clear to auscultation bilaterally, no increase work of breathing Chest: regular rate and rhythm no murmurs rubs or gallops Abdomen: soft nontender nondistended Extremities: warm well perfused, neurovascularly intact normal gait 2+ radial pulse median radian ulnar nerve function intact in the right hand Skin: no redness Neurologic alert and oriented x3 moving all extremities equally well Interpretation Diagnostics Lab Results Interpretation Results Laboratory Tests 08/10/22 1405: [Embedded Image Not Available] Laboratory Tests: 08/10 08/10 1805 1803 Chemistry POC Glucose (70 - 119 MG/DL) 221 H Urines Urine Color (YELLOW DESCRIPT) LIGHT-YELLOW Urine Appearance (CLEAR DESCRIPT) TURBID (1+)HAZY-CLDY H Urine pH (4.6 - 8.0 pH UNITS) 7.0 Ur Specific Rarden (1.001 - 1.035 SG) 1.016 Urine Protein ((NEG) <30 mg/dL) NEGATIVE (0) Urine Glucose (UA) (0 (NORMAL) mg/dL) OVER >1000 (4+) H Urine Ketones ((NEG) 0 mg/dL) 10 (1+) H Urine Blood (0 (NEG) mg/dL) NEGATIVE (0.00) Urine Nitrite (NEG SCREEN) NEGATIVE (0) Urine Bilirubin ((NEG) 0 mg/dL) NEGATIVE (0.0) Urine Urobilinogen ((NORM)<2.0 mg/Dl) NORMAL (0) Ur Leukocyte Esterase ((NEG) 0 Leuk/mcL) 25 H Urine RBC (0 - 3 #RBC/HPF) 0-3 Urine WBC (0 - 3 #WBC/HPF) 0-3 Ur Squamous Epith Cells (NONE - SQepi /UL) MANY >20 Urine Bacteria (NONE - FEW /HPF) FEW >1 Urine Mucus (NONE /LPF) RARE Urine Culture Screen (Cult byWBC Criteria) Crit NOTmet CULT-N/A Urine Comment (SpecComment NoteSPEC) SPECIMEN COMMENT 08/10 08/10 08/10 08/10 1532 1421 1405 1405 Blood Gas Puncture Site (DESCRIPTION Site) Venous VBG pH (7.32 - 7.42 pH units) 7.40 VBG pCO2 (41 - 51 mmHg) 39 L VBG pO2 (25 - 40 mmHg) 42 H VBG HCO3 (24 - 28 mmol/L) 23.9 L O2 Delivery Method (DESCRIPTION COMMENT) RA Chemistry POC Glucose (70 - 119 MG/DL) 320 H Troponin I High Sens (0 - 45 ng/L) < 4 Serum , Qual (NEG SCREEN) Positive H 08/10 08/10 1405 1336 Chemistry Sodium (133 - 144 mmol/L) 137.0 Potassium (3.5 - 5.1 mmol/L) 3.8 Chloride (95 - 105 mmol/L) 105 Carbon Dioxide (21 - 32 mmol/L) 22 Anion Gap (4.0 - 15.0 GAP calc) 10.0 BUN (7 - 18 MG/DL) 11 Creatinine (0.55 - 1.30 MG/DL) 0.57 Glomerular Filtr Rate (>60 estGFR) 125 Glucose (70 - 110 MG/DL) 312 H POC Glucose (70 - 119 MG/DL) 320 H Calcium (8.5 - 10.1 MG/DL) 9.0 Magnesium (1.6 - 2.6 MG/DL) 1.8 Specimen Appearance (1 NORMAL Index/DL) 1 NORMAL <2 MG Specimen Hemolysis (1 NORMAL Index/DL) 1 NORMAL <10 MG Hematology WBC (4.1 - 12.1 K/mm3) 11.6 RBC (3.8 - 5.5 M/mm3) 4.46 Hgb (10.6 - 15.8 G/DL) 12.7 Hct (31.8 - 47.4 %) 36.3 MCV (80.1 - 101.1 fL) 81.4 MCH (25.3 - 35.3 pg) 28.5 MCHC (32.7 - 35.1 G/DL) 35.0 RDW (12.2 - 16.4 %) 12.6 Plt Count (155 - 337 K/mm3) 314 MPV (6.8 - 11.2 fL) 9.3 Recent Impressions: RADIOLOGY - XR SHOULDER 2 + V RT 08/10 1651 Report Impression - Status: SIGNED Entered: 08/10/2022 7655 IMPRESSION: 1. Subtle linear lucency along the lateral aspect of the humeral head, favored to represent a vascular channel. A subtle, nondisplaced, hairline fracture is thought to be unlikely, but would be difficult to completely exclude on the basis of this imaging. Consider correlation with point tenderness. 2. No other acute bony abnormality. Impression By: [email or web address] - Pasha Agrawal MD ECG #1 Interpretation Text/Dict Note EKG time 1427 rate 104 T wave inversion in 3 otherwise unremarkable sinus Procedures Free Text Proc Notes Additional Text OB ultrasound shows a heart rate around 160 Re-Evaluation MDM Re-Evaluation/Progress #1 Text/Dict Note MEDICAL DECISION MAKING Number and Complexity of Problems Differential Diagnosis: DKA hyperglycemia dehydration multisystem trauma humerus fracture MDM Data External documents reviewed: NA My EKG interpretation: see interpretation section My CT interpretation: NA My X-ray interpretation: Right humerus My Ultrasound interpretation: see procedure section Labs reviewed by me are significant for: Unremarkable Decision rules/scores evaluated: NA Discussed with: NA I Considered admission for: worsening symptoms, observation Treatment and Disposition ED Course: Emergency diagnoses were considered and was made for discharge home on her prior insulin regimen which she can nut picker today Shared decision making: I discussed the pros and cons of all options with the patient and engaged in shared-decision making. Code status: Full code Time of Re-Eval 1632 Re-Eval Status Improved ED Course Medication(s) Ordered Medication(s) Ordered: Electrolytic, Caloric, And Ranulfo Sig/Deonna Start time Last Medication Dose Route Stop Time Status Admin Lactated Ringer's 1,000 ML X1ED STA 08/10 1559 DC 05/30 IV 05 1600 1802 Sodium Chloride 1,000 ML X1ED STA 08/10 1331 DC 05/30 IV 08/10 1430 1548 Hormones And Synthetic Substit Sig/Deonna Start time Last Medication Dose Route Stop Time Status Admin Insulin Human Regular 10 UNIT X1ED STA 08/10 1558 DC 08/10 SUBQ 08/10 1559 1638 Patient Discharge Departure Vital Signs/Condition Vital Signs First Documented: Result Date Time Pulse Ox 99 08/10 1329 B/P 151/92 08/10 1329 B/P Mean 111 08/10 1329 Temp 98.4 08/10 1329 Pulse 106 08/10 1329 Resp 18 08/10 1329 Last Documented: Result Date Time Pulse Ox 99 08/10 1919 B/P 126/67 08/10 1919 Pulse 94 / 1919 Resp 18 08/10 1919 B/P Mean 111 08/10 1329 Temp 98.4 08/10 1329 All vital signs available at the time of this entry have been reviewed. Clinical Impression Clinical Impression Primary Impression: Fall Secondary Impressions: Hyperglycemia, Shoulder pain, right Disposition Decision Discharge )( Discharged to Home Yes )( Time 1856 )( Date 08/10/22 Discharge/Care Plan Patient Instructions ED Diabetes with High Blood Sugar Additional Instructions You were seen in the emergency room for elevated blood sugars after running out of your insulin. You also reported a fall last week for which she went to another hospital. The x-ray here does not show an obvious fracture though they cannot rule out a subtle hairline fracture. Even if there is a fracture these tend to heal on their own. You can use a sling for comfort but please range the shoulder frequently and return or see an drug and alcohol treatment specialist if the pain is not improving in 5 to 7 days. Please return for abdominal pain vaginal bleeding cramping feeling like you may pass out persistently elevated blood sugars or any other new or concerning symptoms. Please return for chest pain, shortness of breath, feeling like you may pass out , symptoms worsened by exertion, leg swelling, any signs of infection or any other new or concerning symptoms. Please return if you cannot receive follow-up in the next 1 to 2 days. Please note that only your emergent findings were reviewed today. You should contact medical records to get a full report to review in detail with your primary care doctor. Many incidental findings will need outpatient follow-up. at 1931 RPT #:[id number] END OF REPORT [facility] 2022-08-10 13:33:00 [facility] ([facility]) EMERGENCY PROVIDER REPORT REPORT#:[id number] REPORT STATUS: Signed DATE:08/10/22 TIME: 1332 PATIENT: AMINTA NINO UNIT #: [id number] ROOM/BED: AGE: 32 SEX: F PCP PHYS: Tad Jordan MD SERVICE AUTHOR: Lydia Tobin * ALL edits or amendments must be made on the electronic/computer document * Provider in Triage - Adult Provider in Triage Initial Greet Date/Time 08/10/22 1330 Greet Note I have greeted and performed a focused rapid initial assessment of this patient. A comprehensive ED assessment and evaluation of the patient, analysis of all test results, and completion of the medical decision-making process will be conducted by additional ED providers. HPI Chief Complaint DIXZXY/ PRE / OUT OF HER INSULIN Onset Occurred Today Severity Pain level 0 out of 10 PE General/Const No acute distress HEENT DRY ORAL MUCOSA MSE Not Complete The medical screening exam is not complete. Further evaluation and/or treatment is required. The patient will be re-directed to the emergency department. PMH-Provider in Triage Stated Complaint HIGH BGL Allergies Coded Allergies: latex (UNKNOWN 04/10/22) Additional Medical History bipolar, ADHD, OCD DM-taking metformin, insulin, HTN, Obesity Additional Surgical History Denies Alcohol Use Denies EtOH use Drug Use Denies recreational drugs Smoking status: Smoking status for patients 13 years old or older: Current every day smoker at 2149 RPT #:[id number] END OF REPORT [facility] 2022-08-07 16:07:00 [facility] ([facility]) EMERGENCY PROVIDER REPORT REPORT#:[id number] REPORT STATUS: Signed DATE:08/07/22 TIME: 1607 PATIENT: AMINTA NINO UNIT #: [id number] ROOM/BED: AGE: 32 SEX: F PCP PHYS: Tad Jordan MD SERVICE AUTHOR: Andrea Marcos MD * ALL edits or amendments must be made on the electronic/computer document * HPI-General Illness Free Text HPI Notes Free Text HPI Notes 32-year-old female sent here by her SR. DIRECTOR PRODUCT MANAGEMENT because of blood sugars been above 200. 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 She has no symptoms. General Initial Greet Date/Time 08/07/22 1529 Provider in Triage HPI Chief Complaint elevated BG 400, preg/ feels dehydrated Onset Occurred Today Severity Moderate, Pain level 0 out of 10 PE General/Const No acute distress Presentation Chief Complaint __ (High blood sugar) Hx Obtained From Patient Review of Systems ROS Statements All systems rev neg except as marked. Past Medical History - Adult Stated Complaint HIGH GLUCOSE Allergies Coded Allergies: latex (UNKNOWN 04/10/22) Additional Medical History bipolar, ADHD, OCD DM-taking metformin, insulin, HTN, Obesity Additional Surgical History Denies Alcohol Use Denies EtOH use Drug Use Denies recreational drugs Smoking status for patients 13 years old or older: Never Smoker Physical Exam Vital Signs Vital Signs First Documented: Result Date Time Pulse Ox 95 08/07 1530 B/P 143/86 08/07 1530 B/P Mean 105 08/07 1530 O2 Delivery Room air 08/07 1530 Temp 97.8 08/07 1530 Pulse 113 08/07 1530 Resp 20 08/07 1530 Last Documented: Result Date Time Pulse Ox 100 08/07 1717 B/P 118/73 08/07 1715 Pulse 97 08/07 1714 B/P Mean 105 08/07 1530 O2 Delivery Room air 08/07 1530 Temp 97.8 08/07 1530 Resp 20 08/07 1530 Review of Vital Signs Reviewed Basic Physical Exam Basic PE GEN: Well appearing/NAD, HEAD: Atraumatic/NC, EYES: PERRL, conj clear, ENT: Membranes moist, NECK: Supple, RESP: No resp distress, CV: Reg rate rhythm, ABD: Soft/non-tender, EXT: No gross abnormality, SKIN: No rashes, warm/ dry, NEURO: alert oriented, NEURO: gross movement NL, PSYCH: NL thought content Interpretation Diagnostics Lab Results Interpretation Results Laboratory Tests 08/07/22 1602: [Embedded Image Not Available] Laboratory Tests: 08/07 08/07 1602 1536 Chemistry Sodium (133 - 144 mmol/L) 135.0 Potassium (3.5 - 5.1 mmol/L) 3.7 Chloride (95 - 105 mmol/L) 105 Carbon Dioxide (21 - 32 mmol/L) 22 Anion Gap (4.0 - 15.0 GAP calc) 8.0 BUN (7 - 18 MG/DL) 11 Creatinine (0.55 - 1.30 MG/DL) 0.65 Glomerular Filtr Rate (>60 estGFR) 121 Glucose (70 - 110 MG/DL) 256 H POC Glucose (70 - 119 MG/DL) 264 H Calcium (8.5 - 10.1 MG/DL) 8.9 Total Bilirubin (0.00 - 1.00 MG/DL) 0.75 Direct Bilirubin (0.00 - 0.30 MG/DL) 0.14 Indirect Bilirubin (0.2 - 1.3 MG/DL) 0.61 AST (15 - 37 Unit/L) 14 L ALT (12 - 78 Unit/L) 21 Total Alk Phosphatase (45 - 117 Unit/L) 83 Total Protein (6.4 - 8.2 G/DL) 7.5 Albumin (3.4 - 5.0 G/DL) 3.2 L Lipase (114 - 286 Unit/L) 134 Specimen Appearance (1 NORMAL Index/DL) 1 NORMAL <2 MG Specimen Hemolysis (1 NORMAL Index/DL) 1 NORMAL <10 MG Hematology WBC (4.1 - 12.1 K/mm3) 11.3 RBC (3.8 - 5.5 M/mm3) 4.44 Hgb (10.6 - 15.8 G/DL) 12.6 Hct (31.8 - 47.4 %) 36.0 MCV (80.1 - 101.1 fL) 81.1 MCH (25.3 - 35.3 pg) 28.4 MCHC (32.7 - 35.1 G/DL) 35.0 RDW (12.2 - 16.4 %) 12.7 Plt Count (155 - 337 K/mm3) 283 MPV (6.8 - 11.2 fL) 9.0 Miscellaneous Maternal Serum HCG (0 - 3 mi-IU/ML) 41070 H Urines Urine Color (YELLOW DESCRIPT) LIGHT-YELLOW Urine Appearance (CLEAR DESCRIPT) CLEAR Urine pH (4.6 - 8.0 pH UNITS) 6.5 Ur Specific Rarden (1.001 - 1.035 SG) 1.035 Urine Protein ((NEG) <30 mg/dL) 10 (TRACE) H Urine Glucose (UA) (0 (NORMAL) mg/dL) OVER >1000 (4+) H Urine Ketones ((NEG) 0 mg/dL) 20 (1+) H Urine Blood (0 (NEG) mg/dL) NEGATIVE (0.00) Urine Nitrite (NEG SCREEN) NEGATIVE (0) Urine Bilirubin ((NEG) 0 mg/dL) NEGATIVE (0.0) Urine Urobilinogen ((NORM)<2.0 mg/Dl) NORMAL (0) Ur Leukocyte Esterase ((NEG) 0 Leuk/mcL) NEGATIVE (0) Urine RBC (0 - 3 #RBC/HPF) 0-3 Urine WBC (0 - 3 #WBC/HPF) 0-3 Ur Squamous Epith Cells (NONE - SQepi /UL) MODERATE >10 Urine Mucus (NONE /LPF) RARE Urine Culture Screen (Cult byWBC Criteria) Crit NOTmet CULT-N/A Urine Comment (SpecComment NoteSPEC) SPECIMEN COMMENT Recent Impressions: ULTRASOUND - US PREG EVAL 1ST TRIMTR 08/07 1549 Report Impression - Status: SIGNED Entered: 08/07/20221627 IMPRESSION: There is a single live intrauterine seen at 11 weeks 6 days gestation. Please refer to the findings section for additional details. Impression By: Zeenat Ngo MD ULTRASOUND - US PREG UT TRANSVAGINAL 08/07 1549 Report Impression - Status: SIGNED Entered: 08/07/20221627 IMPRESSION: There is a single live intrauterine seen at 11 weeks 6 days gestation. Please refer to the findings section for additional details. Impression By: Zeenat Ngo MD Re-Evaluation MDM Free Text MDM Notes Free Text MDM Notes Discussed the lab work and the ultrasound with the patient. We will give her a small dose of insulin and give her IV fluids and have her follow-up with her high pressure cleaner. Nothing further to do. She is not in DKA ED Course Medication(s) Ordered Medication(s) Ordered: Electrolytic, Caloric, And Ranulfo Sig/Deonna Start time Last Medication Dose Route Stop Time Status Admin Sodium Chloride 1,000 ML X1ED STA 08/07 1529 DC 08/07 IV 08/07 1628 1601 Hormones And Synthetic Substit Sig/Deonna Start time Last Medication Dose Route Stop Time Status Admin Insulin Human Regular 3 UNIT ONCE ONE 08/07 1745 AC IV 08/07 174 Patient Discharge Departure Vital Signs/Condition Vital Signs First Documented: Result Date Time Pulse Ox 95 08/07 1530 B/P 143/86 08/07 1530 B/P Mean 105 08/07 1530 O2 Delivery Room air 08/07 1530 Temp 97.8 08/07 1530 Pulse 113 08/07 1530 Resp 20 08/07 1530 Last Documented: Result Date Time Pulse Ox 100 08/07 1717 B/P 118/73 08/07 1715 Pulse 97 08/07 1714 B/P Mean 105 08/07 1530 O2 Delivery Room air 08/07 1530 Temp 97.8 08/07 1530 Resp 20 08/07 1530 All vital signs available at the time of this entry have been reviewed. Condition Stable Clinical Impression Clinical Impression Primary Impression: Hyperglycemia Disposition Decision Discharge )( Discharged to Home Yes )( Time 1736 )( Date 08/07/22 Discharge/Care Plan Patient Instructions ED Diabetes with High Blood Sugar at 2003 RPT #:[id number] END OF REPORT [facility] 2022-08-07 15:31:00 [facility] ([facility]) EMERGENCY PROVIDER REPORT REPORT#:[id number] REPORT STATUS: Signed DATE:08/07/22 TIME: 1530 PATIENT: AMINTA NINO UNIT #: [id number] ROOM/BED: AGE: 32 SEX: F PCP PHYS: Tad Jordan MD SERVICE AUTHOR: Lydia Tobin * ALL edits or amendments must be made on the electronic/computer document * Provider in Triage - Adult Provider in Triage Initial Greet Date/Time 08/07/22 1529 Greet Note I have greeted and performed a focused rapid initial assessment of this patient. A comprehensive ED assessment and evaluation of the patient, analysis of all test results, and completion of the medical decision-making process will be conducted by additional ED providers. HPI Chief Complaint elevated BG 400, preg/ feels dehydrated Onset Occurred Today Severity Moderate, Pain level 0 out of 10 PE General/Const No acute distress MSE Not Complete The medical screening exam is not complete. Further evaluation and/or treatment is required. The patient will be re-directed to the emergency department. PMH-Provider in Triage Stated Complaint HIGH GLUCOSE Allergies Coded Allergies: latex (UNKNOWN 04/10/22) Additional Medical History bipolar, ADHD, OCD DM-taking metformin, insulin Additional Surgical History Denies Alcohol Use Denies EtOH use Drug Use Denies recreational drugs at 1793 RPT #:[id number] END OF REPORT [facility] 2022-07-13 17:51:00 [facility] ([facility]) EMERGENCY PROVIDER REPORT REPORT#:[id number] REPORT STATUS: Signed DATE:07/13/22 TIME: 1750 PATIENT: AMINTA NINO UNIT #: [id number] ROOM/BED: AGE: 32 SEX: F PCP PHYS: Tad Jordan MD SERVICE AUTHOR: Alba Toro SERVICE DELIVERY ANALYST * ALL edits or amendments must be made on the electronic/computer document * Alba Toro 07/13/22 175: Provider in Triage - Adult Provider in Triage Initial Greet Date/Time 07/13/22 1745 Free Text PIT Notes Free Text PIT Notes I have greeted and performed a focused rapid initial assessment of this patient. A comprehensive ED assessment and evaluation of the patient, analysis of all test results, and completion of the medical decision-making process will be conducted by additional ED providers. Pt in no apparent distress in triage. 32-year-old female presents to the ER without complaints but reports her M provider advised her to go to ER for blood glucose >400. Reports she is 8 weeks , A1, LMP April 2022. Last saw her OB 1 week ago and has confirmed IUP. Takes Humulin. PMH-Provider in Triage Stated Complaint HYPERGLYCEMIA Allergies Coded Allergies: latex (UNKNOWN 04/10/22) Cory Mckeon 07/14/22 0403: Provider in Triage - Adult Elopement Note Elopement Note This patient has left the emergency department or waiting room with no communication to myself, nursing or administrative staff. There was no opportunity to discuss the patient's decision to leave, provide medical advice or discuss alternatives to leaving. The staff has made efforts to locate the patient without success. at 1753 at 0403 RPT #:[id number] END OF REPORT [facility] 2022-04-10 15:23:00 [facility] EMERGENCY PROVIDER REPORT REPORT#:[id number] REPORT STATUS: Signed DATE:04/10/22 TIME: 152 PATIENT: AMINTA NINO UNIT #: [id number] ROOM/BED: AGE: 31 SEX: F PCP PHYS: Tad Jordan MD SERVICE AUTHOR: Alba Toro SERVICE DELIVERY ANALYST * ALL edits or amendments must be made on the electronic/computer document * Alba Toro 04/10/22 1523: HPI-General Illness Free Text HPI Notes Free Text HPI Notes 31-year-old female presents to the ER with significant other. She complains of B/L breast tenderness xseveral days and noted a painful "knot" to bottom of left breast yesterday. Denies skin changes to either breast, discharge from either nipple, redness, warmth, or swelling of either breast, fever, chills, chest pain , shortness breath, radiating pain or other complaints today. Denies personal history of any cancer. Denies recent trauma/fall/injury. Reports mother has history of breast cancer, diagnosed in 30s. General Confirmed Patient Yes Initial Greet Date/Time 04/10/22 1329 Assumed Care at Time 1445 Date 04/10/22 PCP Tad Jordan Provider in Triage PE General/Const No acute distress Respiratory/Chest No respiratory distress Presentation Chief Complaint breast pain Hx Obtained From Patient Sudden in Onset? No Onset Occurred Days ago Symptom Duration Waxes and wanes Progression since Onset Waxes and wanes Quality Aching Severity: Onset Pain level 2 out of 10 Severity: Current Pain level 6 out of 10 Associated with Denies: Abdominal pain, Anorexia, Aura, Bleeding, Bruising, Chest pain, Congestion, Cough, Diaphoresis, Difficulty breathing, Difficulty swallowing, Discharge, Dizziness, Fever, Headache, Inability to bear weight, Itching, Joint pain, Loss of consciousness, Loss of taste, Loss of smell, Nasal discharge, Nausea, Neck pain, Numb extremities, Off balance, Pain, Pain on walking, Rash, Shortness of breath, Speech abnormal, Syncope, Vision change, Vomiting, Weak extremity, Weakness. Review of Systems ROS Statements All systems rev neg except as marked. Free Text ROS Notes Free Text ROS Notes ROS Statements All systems rev neg except as marked. CONSTITUTIONAL: denies fever, chills, malaise EYES: blurred vision/visual changes, eye pain Ears: denies ringing in ears, ear pain Nose/throat: denies sinus pain, nasal pain, discharge, sore throat CARDIOVASCULAR: denies chest pain, palpitations RESPIRATORY: denies shortness of breath, cough GI: denies abd pain, nausea, vomiting, diarrhea : denies hematuria, dysuria Breast: denies wounds, skin changes, warmth, redness, swelling, nipple discharge to either breast; reports b/l breast tenderness, L breast "knot" MUSCULOSKELETAL: denies neck pain, muscle pain, joint pain SKIN: denies lesions, rashes ENDOCRINE: No excessive urination or excessive thirst. NEUROLOGIC: denies headache, dizziness, numbness, tingling or weakness PSYCHIATRIC: denies mood disturbances, denies problems with anxiety Past Medical History - Adult Stated Complaint BREAST LUMPS Allergies Coded Allergies: latex (UNKNOWN 04/10/22) Additional Medical History bipolar, ADHD, OCD DM-taking metformin, insulin Additional Surgical History Denies Alcohol Use Denies EtOH use Drug Use Denies recreational drugs Smoking status for patients 13 years old or older: Never Smoker Ambulatory Status Independent Physical Exam Vital Signs Review of Vital Signs Reviewed, Vital signs normal Free Text PE Notes Free Text PE Notes Constitutional: Well-appearing, nontoxic, well-developed, well-nourished, cooperative, in no acute distress HEENT: Eyes: PERRLA; normal conjunctiva; no periorbital swelling, eyelid edema, erythema, discharge, excessive tearing Ears: normal in appearance Mouth/Throat: airway patent; mucous membranes moist Nares patent, no facial edema Neck: supple; no JVD Cardiovascular: regular rhythm, S1 normal, S2 normal Pulmonary/Chest: CTA-B, no adventitious sounds; no respiratory distress Abdominal: soft, non-tender, non-distended; bowel sounds present and normoactive all 4 quadrants Head: atraumatic, normocephalic MS: back inspection normal, MAEE Breast exam: R breast normal in appearance and without edema, erythema, warmth, skin changes, palpable nodules, nipple changes or discharge from nipple; left breast normal in appearance and without edema, erythema, warmth, skin changes, nipple changes, discharge from nipple, +one appx 2cm palpable firm, smooth, roung mobile mass noted to 6 o'clock position of L breast; +one appx 1cm palpable firm, smooth, round mobile mass noted to 2 o'clock position of L breast ; no local lymphadenopathy B/L; breasts are symmetric; no chest wall TTP B/L Skin: warm and dry; cap refill <3 sec; no rashes, hives, jaundice; turgor normal Neurological: AOx3; neuro exam grossly intact Psychiatric: affect and mood normal, thought content normal, cognitive function normal Interpretation Diagnostics Lab Results Interpretation Lab Imaging Statement Laboratory radiographic studies reviewed and considered in the medical decision-making. Re-Evaluation MDM Free Text MDM Notes Additional Text Pt is a 30-year-old female complaining of bilateral breast tenderness and painful "knot" to her left breast. Broad differentials considered and included below: Fibroadenoma, breast cancer, abscess, mastitis. Comorbidities impacting treatment include diabetes, bipolar. History obtained from the patient. Independent review and interpretation of studies were performed by me including: -Imaging: B/L breast ultrasound shows unremarkable bilateral breast with no masses, calcifications, fluid collections or abnormal vascularity evident within either. -Labs: CBC: WBC 8.9 and WNL, no anemia CMP: Sodium 136, kidney function normal, glucose 328, AST 52, ALT 46, liver function WNL hCG negative Medications received in ED: Acetaminophen Response to therapies and reevaluation: Improved Clinical impression: Breast pain Social determinants of health that affect the patient's care were factored into the disposition. Pt is able to afford any prescriptions given and OTC medications as instructed,also given prescription discount card to use if needed. Pt has an assigned PCP to follow up with. Shared decision making regarding disposition was discussed along with the risks, benefits, and alternative options. Patient verbalized understanding and is agreeable to the plan to discharge. We discussed OTC pain management. Instructed to follow-up with PCP in next 2-3 days, educated on strict ED return precautions including, but not limited to, fever, redness/worsening pain/ swelling/skin changes/discharge of either breast, fever, worsening or concerning symptoms. Re-Evaluation/Progress #1 Time of Re-Eval 1550 Re-Eval Status Improved Eval Following Treatment Pt. feels better Pain Re-Evaluation Pain improved, 06/21, has not received medications yet but reports feeling better Exam Post Tx - General Alert, Appears well Plan Post Re-Eval pending labs likely discharge ED Course Medication(s) Ordered Medication(s) Ordered: Central Nervous System Agents Sig/Deonna Start time Last Medication Dose Route Stop Time Status Admin Acetaminophen 975 MG X1ED STA 04/10 1529 DC 04/10 PO 04/10 1530 1547 Patient Discharge Departure Vital Signs/Condition Condition Stable Clinical Impression Clinical Impression Primary Impression: Breast pain Disposition Decision Discharge )( Discharged to Home Yes )( Time 1724 )( Date 04/10/22 Discharge/Care Plan Counseled Regarding Diagnosis, Lab results, Imaging studies, Need for follow-up, When to return to ED Prescriptions none Patient Instructions ED Breast Lump, Uncertain Cause Additional Instructions You can use Tylenol or ibuprofen [id number] as needed for pain. Follow the package instructions. Your blood sugar is elevated today at 328. Normal glucose readings range from 60-100. The breast ultrasound that was done today is not a substitute for regular care and is not diagnostic for breast cancer. Follow-up with a PCP in 2 to 3 days and be sure to discuss this visit today. Be sure to also discuss the elevated blood sugar reading. You can follow-up with an SR. DIRECTOR PRODUCT MANAGEMENT within the next week and discuss this visit today. Return to the ER for any worsening or concerning symptoms, including but not limited to: Fever which is 100.4 F or higher, redness/worsening pain/swelling to either breast, open wounds or discharge from either breast/nipple. Departure Forms [facility] PCP LIST OBGYN BY AREA WORK/SCHOOL EXCUSE VARIABLE May return to work/school 04/12/22 Any Restrictions No Discharge Note I have spoken with the patient and/or caregivers. I have explained the patient's condition, diagnoses and treatment plan based on the information available to me at this time. I have answered the patient's and/or caregiver's questions and addressed any concerns. The patient and/or caregivers have as good an understanding of the patient's diagnosis, condition and treatment plan as can be expected at this point. The vital signs have been stable. The patient's condition is stable and appropriate for discharge from the emergency department. The patient will pursue further outpatient evaluation with the primary care physician or other designated or consulting physician as outlined in the discharge instructions. The patient and/or caregivers are agreeable to this plan of care and follow-up instructions have been explained in detail. The patient and/or caregivers have received these instructions in written format and have expressed an understanding of the discharge instructions. The patient and/or caregivers are aware that any significant change in condition or worsening of symptoms should prompt an immediate return to this or the closest emergency department or a call to 911. Quality Measures Smoking Cessation Screened, non user Cory Mckeon 04/10/22 1746: Physical Exam Vital Signs Vital Signs First Documented: Result Date Time Pulse Ox 95 04/10 1330 B/P 137/92 04/10 1330 B/P Mean 107.1 04/10 1330 O2 Delivery Room air 04/10 1330 Temp 98.2 04/10 1330 Pulse 87 04/10 1330 Resp 16 04/10 1330 Last Documented: Result Date Time Pulse Ox 98 04/10 1814 B/P 144/94 04/10 181 B/P Mean 110.2 04/10 1813 O2 Delivery Room air 04/10 1813 Temp 98.1 04/10 181 Pulse 81 04/10 1814 Resp 18 04/10 181 Interpretation Diagnostics Lab Results Interpretation Results Laboratory Tests 04/10/22 1543: [Embedded Image Not Available] Creatinine < 0.5 L Laboratory Tests: 04/10 1543 Chemistry Sodium (137 - 145 mmol/L) 136 L Potassium (3.4 - 5.0 mmol/L) 3.8 Chloride (98 - 107 mmol/L) 99 Carbon Dioxide (22 - 30 mmol/L) 26 Anion Gap 16 BUN (7 - 17 mg/dL) 5 L Creatinine (0.5 - 1.0 mg/dL) < 0.5 L Glomerular Filtr Rate (mL/min) 130 Glucose (74 - 106 mg/dL) 328 H Calcium (8.4 - 10.2 mg/dL) 9.0 Total Bilirubin (0.2 - 1.3 mg/dL) 0.7 Conjugated Bilirubin (0 - 0.3 mg/dL) 0 Unconjugated Bilirubin (0 - 1.1 mg/dL) 0.4 AST (15 - 46 U/L) 52 H ALT (0 - 34 U/L) 46 H Total Alk Phosphatase (38 - 126 U/L) 104 Total Protein (6.3 - 8.2 g/dL) 7.9 Albumin (3.5 - 5.0 g/dL) 5.1 H Serum , Qual (NEGATIVE) NEGATIVE Specimen Hemolysis (0 - 100 Index/DL) < 15 Hematology WBC (5.0 - 12.0 x10 3/uL) 8.9 RBC (4.20 - 5.40 x10 6/uL) 5.38 Hgb (12.0 - 16.0 g/dL) 15.0 Hct (36.0 - 46.0 %) 43.1 MCV (81 - 99 fL) 80 L MCH (27 - 31 pg) 27.9 MCHC (33 - 37 g/dL) 34.8 RDW (11.5 - 15.5 %) 12.6 Plt Count (130 - 400 x10 3/uL) 250 MPV (9.4 - 16.4 fL) 9.7 Neut % (Auto) (43 - 65 %) 53.4 Lymph % (Auto) (20.5 - 45.5 %) 38.9 [place] % (Auto) (5.5 - 11.7 %) 6.4 Eos % (Auto) (0.9 - 2.9 %) 0.7 L Baso % (Auto) (0.2 - 1.0 %) 0.3 Neut # (Auto) (2.2 - 4.8 x10 3/uL) 4.77 Lymph # (Auto) (1.3 - 2.9 x10 3/uL) 3.48 H [place] # (Auto) (0.3 - 0.8 x10 3/uL) 0.57 Eos # (Auto) (0.0 - 0.2 x10 3/uL) 0.06 Baso # (Auto) (0.0 - 0.1 x10 3/uL) 0.03 Immature Gran % (0.0 - 2.0 %) 0.3 Nucleated RBC % (0 - 1.0 %) 0.0 Recent Impressions: ULTRASOUND - US CHST W/MEDIASTINUM 04/10 1446 Report Impression - Status: SIGNED Entered: 04/10/2022 1502 IMPRESSION: Unremarkable bilateral breast ultrasound. Advise correlation with mammography to exclude nonvisualized pathology. Impression By: RashidaTSBebeto Holcomb MD Patient Discharge Departure Vital Signs/Condition Vital Signs First Documented: Result Date Time Pulse Ox 95 04/10 1330 B/P 137/92 04/10 1330 B/P Mean 107.1 04/10 1330 O2 Delivery Room air 04/10 1330 Temp 98.2 04/10 1330 Pulse 87 04/10 1330 Resp 16 04/10 1330 Last Documented: Result Date Time Pulse Ox 98 04/10 1814 B/P 144/94 04/10 1814 B/P Mean 110.2 04/10 1814 O2 Delivery Room air 04/10 1814 Temp 98.1 04/10 1814 Pulse 81 04/10 1814 Resp 18 04/10 1814 All vital signs available at the time of this entry have been reviewed. Supervising Physician Note MidLv Saw Pt Alone I have reviewed the PA/SERVICE DELIVERY ANALYST's note and plan of care. I was available for consultation as needed at all times during the patient's visit in the emergency department. I agree with the clinical impression, plan and disposition. at 1740 at 0017 RPT #:[id number] END OF REPORT [facility] 2022-04-10 13:54:00 [facility] ([facility]) EMERGENCY PROVIDER REPORT REPORT#:[id number] REPORT STATUS: Signed DATE:04/10/22 TIME: 135 PATIENT: AMINTA NINO UNIT #: [id number] ROOM/BED: AGE: 31 SEX: F PCP PHYS: Tad Jordan MD SERVICE AUTHOR: Colette Panda * ALL edits or amendments must be made on the electronic/computer document * Colette Panda 04/10/22 1354: Provider in Triage - Adult Provider in Triage Initial Greet Date/Time 04/10/22 1329 Greet Note I have greeted and performed a focused rapid initial assessment of this patient. A comprehensive ED assessment and evaluation of the patient, analysis of all test results, and completion of the medical decision-making process will be conducted by additional ED providers. PE General/Const No acute distress Respiratory/Chest No respiratory distress Free Text PIT Notes Free Text PIT Notes 31-year-old female presents to the ED with bilateral breast pain and stating she has noticed lumps to bilateral breast since yesterday. Patient reports they are very painful, unable to wear a bra due to the pain. Denies any redness, discharge, fever, chills. Reports past medical history of diabetes, currently on insulin and psych medications. LMP 03/13/2023 PMH-Provider in Triage Stated Complaint BREAST LUMPS Allergies Coded Allergies: latex (UNKNOWN 04/10/22) Additional Medical History bipolar DM at 1403 at 1722 at 0232 RPT #:[id number] END OF REPORT [facility] 2021-03-19 01:24:00 [facility] ([facility]) EMERGENCY PROVIDER REPORT REPORT#:[id number] REPORT STATUS: Signed DATE:03/19/21 TIME: 123 PATIENT: AMINTA NINO UNIT #: [id number] ROOM/BED: AGE: 30 SEX: F PCP PHYS: No Primary or Family Physician SERVICE AUTHOR: Laures,Juanita DO R1 * ALL edits or amendments must be made on the electronic/computer document * Juanita Childress 03/19/21 0124: HPI-General Illness Free Text HPI Notes Free Text HPI Notes Pt is 30 y/o F hx of DM, and bipolar disorder here after fall/syncopal event yesterday where she was walking to bathroom/bedroom and collapsed on the floor. No prodromal symptoms, no memory of event, unknown head strike. Pt states she woke up to her boyfriend holding her head but no period of confusion or memory loss. Was seen at outside facilty where she states she got imaging of her head but no blood work and was concerned that was the reason for her continued dizziness. Also states she has been more shaky than normal and unsteady on her feet. Denies sick contacts, had covid over jonas. Denies falls or syncope events since yesterday. Denies fevers, chills, n/v/c/d. Denies chest pain, SOB. General Initial Greet Date/Time 03/18/212009 Provider in Triage PE General/Const No acute distress Presentation Chief Complaint Dizziness Review of Systems ROS Statements All systems rev neg except as marked. Free Text ROS Notes Free Text ROS Notes ROS Constitutional: denies - chills, fever, fatigue. eyes: denies - blurry vision, double vision, eye pain, redness. ENT: denies - ear ringing, ear ache, mouth pain. Cardiovascular: denies - chest pain, edema, palpitations. Endorses syncope. Respiratory: denies - shortness of breath, cough, dyspnea on exertion, hemoptysis GI: denies - abdominal pain, diarrhea, nausea, vomiting. : denies - dysuria, flank pain, hematuria, urinary frequency. MSK: denies - back pain, extremity pain. Hematologic: denies - adenopathy, bleeding, bruising. Endocrine: denies - polyuria, polydipsia, weight loss. Skin: denies - rash, erythema, jaundice, laceration. Allergy: denies - hives, itching. Neurologic: denies - dizziness, numbness, seizure, vision changes, speech change. Past Medical History - Adult Stated Complaint TREMORS,NAUSEA Allergies Coded Allergies: No Known Allergies (03/18/21) Additional Medical History bipolar DM Smoking status: Smoking status for patients 13 years old or older: Unknown,if ever smoked Physical Exam Vital Signs Vital Signs First Documented: Result Date Time Pulse Ox 98 03/18 2014 B/P 169/123 03/18 2014 B/P Mean 138.4 03/18 2014 O2 Delivery Room air 03/18 2014 Temp 97.9 03/18 2014 Pulse 109 03/18 2014 Resp 16 03/18 2014 Last Documented: Result Date Time Pulse Ox 98 03/18 2014 B/P 169/123 03/18 2014 B/P Mean 138.4 03/18 2014 O2 Delivery Room air 03/18 2014 Temp 97.9 03/18 2014 Pulse 109 03/18 2014 Resp 16 03/18 2014 Review of Vital Signs Reviewed Free Text PE Notes Free Text PE Notes PE General appearance: no acute distress, non-toxic appearing, obese, mental status normal Head/Eyes: atraumatic, normocephalic, PERRL, EOMI, no nystagmus L pupil: reactivity R pupil: reactivity ENT: atraumatic, no malocclusion, TMs wnl. Neck: atraumatic, full range of motion, non-tender Cardiovascular: BP/pulses equal bilat, pulses all extremities, regular rate rhythm, no murmurs appreciated Respiratory/chest: aerating well, atraumatic chest wall, clear to auscultation, symmetric expansion, no distress Abdomen: non-distended, soft, non-tender, no guarding, no rebound Back/Spine: Back: atraumatic, inspection NL, non-tender Pelvis: atraumatic, pelvis stable Extremities: pedal pulses intact, moving extremities spontaneously. Neuro/CYTOGENETICS TECHNOLOGIST: alert, oriented X 3, follows commands, CNII-XII intact bilaterally. Interpretation Diagnostics Lab Results Interpretation Considerations Independ review imaging, Reviewed prior records Results Laboratory Tests 03/18/212143: [Embedded Image Not Available] Laboratory Tests: 03/193 2144 2143 Chemistry Sodium (137 - 145 mmol/L) 140 Potassium (3.4 - 5.0 mmol/L) 3.8 Chloride (98 - 107 mmol/L) 103 Carbon Dioxide (22 - 30 mmol/L) 22 Anion Gap 19 BUN (7 - 17 mg/dL) 20 H Creatinine (0.5 - 1.0 mg/dL) 0.8 Glomerular Filtr Rate (>60) 91 Glucose (74 - 106 mg/dL) 213 H Calcium (8.4 - 10.2 mg/dL) 10.1 Total Bilirubin (0.2 - 1.3 mg/dL) 0.7 Conjugated Bilirubin (0 - 0.3 mg/dL) 0 Unconjugated Bilirubin (0 - 1.1 mg/dL) 0.5 AST (15 - 46 U/L) 32 ALT (0 - 34 U/L) 27 Total Alk Phosphatase (38 - 126 U/L) 103 Total Protein (6.3 - 8.2 g/dL) 8.3 H Albumin (3.5 - 5.0 g/dL) 4.6 Hematology WBC (5.0 - 12.0 x10 3/uL) 17.1 H RBC (4.20 - 5.40 x10 6/uL) 5.44 H Hgb (12.0 - 16.0 g/dL) 15.1 Hct (36.0 - 46.0 %) 43.5 MCV (81 - 99 fL) 80 L MCH (27 - 31 pg) 27.8 MCHC (33 - 37 g/dL) 34.7 RDW (11.5 - 15.5 %) 12.9 Plt Count (130 - 400 x10 3/uL) 337 MPV (9.4 - 16.4 fL) 9.5 Neut % (Auto) (43 - 65 %) 68.5 H Lymph % (Auto) (20.5 - 45.5 %) 21.9 [place] % (Auto) (5.5 - 11.7 %) 8.6 Eos % (Auto) (0.9 - 2.9 %) 0.3 L Baso % (Auto) (0.2 - 1.0 %) 0.3 Neut # (Auto) (2.2 - 4.8 x10 3/uL) 11.71 H Lymph # (Auto) (1.3 - 2.9 x10 3/uL) 3.74 H [place] # (Auto) (0.3 - 0.8 x10 3/uL) 1.47 H Eos # (Auto) (0.0 - 0.2 x10 3/uL) 0.05 Baso # (Auto) (0.0 - 0.1 x10 3/uL) 0.05 Immature Gran % (0.0 - 2.0 %) 0.4 Nucleated RBC % (0 - 1.0 %) 0.0 Toxicology [place] (0.6 - 1.2 mmol/L) < 0.2 L Urines Urine Color (Yellow) Yellow Urine Appearance (Clear) Slightly-Cloudy Urine pH (5.0 - 8.0) 6.0 Ur Specific [place] (<1.030) 1.014 Urine Protein (Negative mg/dL) 30 (1+) H Urine Glucose (UA) (Negative) >=500 (3+) H Urine Ketones (Negative mg/dL) Trace H Urine Blood (Negative) 1+ H Urine Nitrite (Negative) Negative Urine Bilirubin (Negative) Negative Urine Urobilinogen (Negative mg/dL) Negative Ur Leukocyte Esterase (Negative) 2+ H Urine RBC (<4 - 5 /HPF) 0-3 Urine WBC (<4 - 5 /HPF) 6-10 H Ur Squamous Epith Cells (0 - 5 (RARE) /HPF) 0-5 (RARE) Urine Bacteria (None - Rare /HPF) None Urine Mucus (<Rare /LPF) Rare H Urine HCG, Qual (NEGATIVE) NEGATIVE Lab Imaging Statement Laboratory radiographic studies reviewed and considered in the medical decision-making. Re-Evaluation MDM Free Text MDM Notes Free Text MDM Notes pt seen and evaluated, she is well appearing here with shaking and unsteady on her feet. Symptoms started since fall/syncopal event yesterday. Exam not consistent with focal deficit or any stroke pattern. She appears as she is just moving herself vs twitching. Her hands are steady at rest and when told to hold them out, only when discussing the shaking hands do her hands shake. No neuro deficits, normal cerebellar signs. Normal cranial nerves and normal muscle strength in all planes. Pt is ambulatory and is not shaking while eating [employer]. Lab workup is benign, hyperglycemic but she is insulin dependent diabetic with poor control. No urinary infection. Pt does take lithim for her bipolar disorder, denies recent changes but lithium level pending to ensure levels are not supra-theraputic and causing toxicity. ED Course Medication(s) Ordered Medication(s) Ordered: Electrolytic, Caloric, And Ranulfo Sig/Deonna Start time Last Medication Dose Route Stop Time Status Admin Sodium Chloride 1,000 ML X1ED STA 03/18 2010 DC 03/18 IV 03/18 2011 1628 Gastrointestinal Drugs Sig/Deonna Start time Last Medication Dose Route Stop Time Status Admin Ondansetron HCl 4 MG X1ED STA 03/18 2010 DC 03/18 IV 03/186 Patient Discharge Departure Vital Signs/Condition Vital Signs First Documented: Result Date Time Pulse Ox 98 03/18 2014 B/P 169/123 03/18 2014 B/P Mean 138.4 03/18 2014 O2 Delivery Room air 03/18 2014 Temp 97.9 03/18 2014 Pulse 109 03/18 2014 Resp 16 03/18 2014 Last Documented: Result Date Time Pulse Ox 98 03/18 2014 B/P 169/123 03/18 2014 B/P Mean 138.4 03/18 2014 O2 Delivery Room air 03/18 2014 Temp 97.9 03/18 2014 Pulse 109 03/18 2014 Resp 16 03/18 2014 All vital signs available at the time of this entry have been reviewed. Branden Mckenna 03/19/21 0413: Patient Discharge Departure Vital Signs/Condition Condition Stable Clinical Impression Clinical Impression Primary Impression: Eloped from emergency department Time of Impression 0312 Disposition Decision Discharge )( Discharged to Home eloped )( Time 0312 )( Date 03/19/21 Elopement Note Elopement Note This patient has left the emergency department or waiting room with no communication to myself, nursing or administrative staff. There was no opportunity to discuss the patient's decision to leave, provide medical advice or discuss alternatives to leaving. The staff has made efforts to locate the patient without success. Krysten Martinez 04/01/21 0125: Patient Discharge Departure Supervising Physician Note Resident Saw Pt This patient was seen by a resident. I have personally seen the patient, performed the critical or harrell portions of the service, and participated in the management of the patient. I have reviewed and agree with the resident's note, and I have reviewed all labs, ECGs, and imaging studies or reports. I agree with this resident's findings, exam and plan. at 0440 at 0957 at 0141 RPT #:[id number] END OF REPORT [facility] 2021-03-18:13:00 [facility] ([facility]) EMERGENCY PROVIDER REPORT REPORT#:[id number] REPORT STATUS: Signed DATE:03/18/21 TIME: 2012 PATIENT: AMINTA NINO UNIT #: [id number] ROOM/BED: AGE: 30 SEX: F PCP PHYS: No Primary or Family Physician SERVICE AUTHOR: Janey Harrell NP * ALL edits or amendments must be made on the electronic/computer document * Provider in Triage - Adult Provider in Triage Initial Greet Date/Time 03/18/212009 Greet Note I have greeted and performed a focused rapid initial assessment of this patient. A comprehensive ED assessment and evaluation of the patient, analysis of all test results, and completion of the medical decision-making process will be conducted by additional ED providers. PE General/Const No acute distress MSE Not Complete The medical screening exam is not complete. Further evaluation and/or treatment is required. The patient will be re-directed to the emergency department. Free Text PIT Notes Free Text PIT Notes 30 year old male presents to the ER states that yesterday she had a syncopal episode and fell hitting her head. Patient and boyfriend states that she went to an urgent care where she had an MRI and a CT and the diagnosis was a concussion but she feels like she has not gotten any better today she started shaking earlier today and is now having an episodes of nausea, headache. Patient reports her headache is 8/10 she took some ibuprofen earlier but none recently. Patient denies chest pain, shortness of breath, blurred or double vision. She states that she stutters from time to time but she feels like it has gotten worse today. Patient denies being on any blood thinners. Patient denies any exposures to sick contacts or recent travel. PMH: Diabetes, depression, PTSD, anxiety PSH: None PCP: None ALL: None LMP: 2 days ago but also has Nexplanon PMH-Provider in Triage Stated Complaint TREMORS,NAUSEA Allergies Coded Allergies: No Known Allergies (03/18/21) at 0246 at 0059 RPT #:[id number] END OF REPORT MINNIE
--- NOTE | 2024-06-06 17:04 | EDPHYS ---
Physician Documentation [facility] Name: Aminta Bell Age: 34 yrs Sex: Female : 1990 Arrival Date: 06/06/2024 Time: 16:28 Bed 11 Private MD: ED Physician Jv Davila HPI: 06/06 17:05 This 34 yrs old Female presents to ER via Ambulatory with complaints of ec2 Toothache. 17:05 Patient arrives today for left upper dental pain. Patient reports that she is been ec2 experiencing left upper dental pain for couple of days, reports history of dental caries, reports that she has not seen dentist in quite a bit of time. Patient reports no fevers or chills, no nausea or vomiting, no other concerns.. 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 - Infectious Disease History:: Denies. - Social history:: Smoking status: Patient denies any tobacco usage or history of. ROS: 17:05 Constitutional: as per hpi ec2 Exam: 17:05 Constitutional: GEN: NAD Head: atraumatic Eyes: EOMI Ears: External ears are normal. ec2 Mouth: Dental caries noted throughout, erythema throughout the gum lines. No overlying facial swelling appreciated. CV: regular rate LUNGS: no respiratory distress ABD: non-distended SKIN: no evidence of rashes MSK: no evidence of trauma Vital Signs: 16:57 BP 143 / 97; Pulse 94; Resp 16; Temp 98.4; Pulse Ox 100% on R/A; Weight 99.79 kg; iw Height 5 ft. 0 in. ; Pain 10/10; 16:57 Body Mass Index 42.97 (99.79 kg, 152.4 cm) iw 16:57 Pain Scale: Adult iw MDM: 17:00 Medical Screening Exam initiated ec2 17:05 Data reviewed: vital signs, nurses notes. ED course: Patient arrives today for left ec2 upper dental pain. Emanation yields mild findings above. Will start patient on amoxicillin for presumed dental infection, will prescribe the patient Tylenol 3 for pain control. DDx considered include dental abscess, gingivitis, maxillary facial abscess.. Administered Medications: 17:15 Drug: Ketorolac IM 15 mg IM once Route: IM; Site: right gluteus; ll1 17:22 Follow up: Response: No adverse reaction ll1 17:15 Drug: Amoxicillin PO 875 mg PO once Route: PO; ll1 17:22 Follow up: Response: No adverse reaction ll1 Disposition Summary: 06/06/24 17:04 Discharge Ordered Notes: Location: Home ec2 Condition: Stable ec2 Diagnosis - Dentalgia ec2 Followup: ec2 - With: Private Physician - When: - Reason: Re-evaluation by your physician Discharge Instructions: - Discharge Summary Sheet ec2 - Dental Abscess, [id number] ec2 Forms: - Medication Reconciliation Form ec2 - Antibiotic Education ec2 - Prescription Opioid Use ec2 - Patient Portal Instructions ec2 - Leadership Thank You Letter ec2 Prescriptions: - Amoxicillin 875 mg Oral Tablet - take 1 tablet ORAL route every 12 hours for 10 days; 20 tablet; Refills: 0, ec2 Product Selection Permitted - Tylenol-Codeine #3 300mg-30mg Oral tablet - take 1 tablet ORAL route every 4 hours As needed; 16 tablet; Refills: 0, ec2 Product Selection Permitted Signatures: Meagan Walker RN RN iw Bree Bernal RN RN 1 Jv Davila MD MD ec2
--- NOTE | 2024-06-06 17:04 | ER ---
Nurse's Notes [facility] Name: Aminta Bell Age: 34 yrs Sex: Female : 1990 Arrival Date: 06/06/2024 Time: 16:28 Bed 11 Private MD: Diagnosis: Dentalgia Presentation: 06/06 16:57 Chief complaint: Patient states: left upper tooth pain X 2 days , taking OTC meds at iw home, feels like stabbing pain. Coronavirus screen: At this time, the client does not indicate any symptoms associated with coronavirus-19. Ebola Screen: No symptoms or risks identified at this time. Initial Sepsis Screen: Does the patient meet any 2 criteria? No. Patient's initial sepsis screen is negative. Does the patient have a suspected source of infection? No. Patient's initial sepsis screen is negative. Risk Assessment: Do you want to hurt yourself or someone else? Patient reports no desire to harm self or others. Onset of symptoms was June 04, 2024. 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 - Infectious Disease History:: Denies. - Social history:: Smoking status: Patient denies any tobacco usage or history of. Screenin:22 [facility] ED Fall Risk Assessment (Adult) History of falling in the last 3 months, ll1 including since admission No falls in past 3 months (0 pts) Confusion or Disorientation No (0 pts) Intoxicated or Sedated No (0 pts) Impaired Gait No (0 pts) Mobility Assist Device Used No (0 pt) Altered Elimination No (0 pt) Score/Fall Risk Level 0 - 2 = Low Risk Maintained a safe environment, Hourly rounding (assess needs \T\ fall precautionary measures) done. Abuse screen: Denies threats or abuse. Nutritional screening: No deficits noted. Tuberculosis screening: No symptoms or risk factors identified. Assessment: 17:15 General: Appears uncomfortable, Behavior is calm, cooperative, appropriate for age. ll1 Pain: Pain: Complains of pain in L upper jaw Quality of pain is described as aching. 17:22 EENT: Reports pain in left zygomatic area. ll1 Vital Signs: 16:57 BP 143 / 97; Pulse 94; Resp 16; Temp 98.4; Pulse Ox 100% on R/A; Weight 99.79 kg; iw Height 5 ft. 0 in. ; Pain 10/10; 16:57 Body Mass Index 42.97 (99.79 kg, 152.4 cm) iw 16:57 Pain Scale: Adult iw ED Course: 16:31 Patient arrived in ED. cj3 16:38 Jv Davila MD is Attending Physician. ec2 16:58 Triage completed. iw 16:59 Arm band placed on. iw 17:15 Bree Bernal RN is Primary Nurse. ll1 17:23 Patient has correct armband on for positive identification. Bed in low position. ll1 Provided Education on: ER procedures and process. Cardiac monitoring not applicable on this patient. 17:23 No provider procedures requiring assistance completed. Patient did not have IV access ll1 during this emergency room visit. Administered Medications: 17:15 Drug: Ketorolac IM 15 mg IM once Route: IM; Site: right gluteus; ll1 17:22 Follow up: Response: No adverse reaction ll1 17:15 Drug: Amoxicillin PO 875 mg PO once Route: PO; ll1 17:22 Follow up: Response: No adverse reaction ll1 Medication: 17:23 VIS not applicable for this client. ll1 Outcome: 17:04 Discharge ordered by . ec2 17:23 Discharged to home ambulatory, ll1 17:23 Condition: stable 17:23 Discharge instructions given to patient, Instructed on discharge instructions, follow up and referral plans. no drinking with medication, no driving heavy equipment, medication usage, Demonstrated understanding of instructions, follow-up care, medications, Prescriptions given X 2, 17:23 Patient left the ED. ll1 Signatures: Meagan Walker RN RN Bree Bernal RN RN 1 Jv Davila MD MD 2 Mee Clement 3 Corrections: (The following items were deleted from the chart) 17:22 17:15 Pain: ll1 ll1
[2024-06-06] MEDS ORDERED: KETOROLAC 30 MG/ML INJ ONE (17:12)
[2024-06-06] MEDS ORDERED: AMOX/K CLAV 875 MG TAB ONE (17:12)
[2024-06-06 19:03] VITALS: BP 143/97; TEMP 98.4; O2SAT 100
== END 2024-06-06 17:23 | disposition home or self-care (01) ==
LOC: ER 16:28
DX: K02.9 Dental caries, unspecified (principal)

== ENCOUNTER 2024-07-11 14:35 | Inpatient (IN) | payer OTHER ==
--- OUTSIDE RECORDS SUMMARY | 2024-07-11 14:50 | XMS REPORT | Continuity of Care Document ---
Author Name Unknown Address [address] [facility] [place] [address] [facility] [place] Address [address] [facility] [place] [address] Care Team Providers Care Automatic Glove Turner And Former Name Role Phone Pcp, Patient Does Not Have A Primary Care Physic [place] Babar Caal Attending Clinician Unavailable DAMIÁN CHUNG Attending Clinician Unavailable JAMIR CAGE Attending Clinician Unavail able Zac [facility] Attending Clinician HELEN Beal Attending Clinician Unavailable Jamir Juarez Attending Clinician + IVONE PEREZ Attending Clinician Ivone Renner CNM Attending Clinician [phone] Helen Royal Attending Clinician [phone] Wilmer [facility] Attending Clinician Unavail able Pob, Ad[facility] Lab Main Attending Clinician Trini Rasmussen MD Attending Clinician + [phone] TRINI CRENSHAW Attending Clinician ILENE HillL Attending Clinician UnaVINCENT Ocasio Attending Clinician Unavailable Lab, Ang - Db [...] Clinician Unavailable Andrea Marcos Attending Clinician Unavailable SANDRINE SIM Attending Clinician Unavailable Adriana Mckeon Attending Clinician Unavailable ALIE, DR ROJO Attending Clinician Unavailab THALIA Webster Attending Clinician Unavailable Lani Pitt Attending Clinician [phone] Luiz Rogers Attending Clinician [phone] Jonny Mejia Attending Clinician Unavailable Dennys Roger Attending Clinician [phone] VINCENT JORGE Admitting Clinician Unavailable LATONYA BRONSON Admitting Clinician Unavail able GC_LEH_Le_D Admitting Clinician Unavailable Tad Jordan Admitting Clinician Unavailable Jak Herrera Admitting Clinician Unavailable Gibran Garnica Admitting Clinician Unavailable DR DEMETRI DIA Admitting Clinician Unavailab Gavino Schmitt Admitting Clinician Unavailable JOYCE BORGES Admitting Clinician Unavailable SANDRINE SIM Admitting Clinician Unavailable ALIE, DR ROJO Admitting Clinician Unavailab THALIA Webster Admitting Clinician Unavailable Physician, No Primary or Family Admitting Clinic [place] Unavailable Payers Payer Name Policy Type Policy Number Effective Date Expirati on Date Source $00 D [id number] 2022 00:00:00 MEDICARE PART A \\T\\ B [id number] 2012 00:00:00 MEDICAID [place] [id number] 2012 00:00:00 [facility] [id number] 00:00:00 MEDICAID GENERIC [id number] 2020 00:00:00 [facility] [id number] 1959 00:00:00 [facility] (MEDICAID HMO) [id number] 2021 00:00:00 Problems Condition Name Condition Details Condition Category Status Onset Date Resolution Date Last Treatment Date Treating Clinician Comments Source Essential hypertensi on Essential hypertensi on Disease Active 8-16 00:00: 00 [facility] Bipolar disorder Bipolar Disorder Problem Active 6-29 00:00: 00 [facility] Irritable bowel syndrome Irritable Bowel Syndrome Problem Active 4-04 00:00: 00 [facility] Obesity Obesity Problem Active 1-06 00:00: 00 [facility] Hypertensi ve disorder Hypertensi ve Disorder Problem Active 1-06 00:00: 00 [facility] Hypersomni a with sleep apnea Hypersomni a with Sleep Apnea Problem Active 1- 00:00: 00 [facility] Sleep apnea Sleep Apnea Problem Active 1 00:00: 00 [facility] History of syncope History of Syncope Problem Active 03-19 00:00: 00 [facility] Hyperglyce kody Hyperglyce kody Disease Active 715 00:00: 00 [facility] Backache Backache Disease Active 715 00:00: 00 [facility] Type 2 diabetes mellitus without complicati on Type 2 diabetes mellitus without complicati on Disease Active 08-07 00:00: 00 [facility] History of fibrocysti c disease of breast History of fibrocysti c disease of breast Disease Active 08-07 00:00: 00 [facility] Type 2 diabetes mellitus without complicati on Type 2 diabetes mellitus without complicati on Disease Active 08-07 00:00: 00 [facility] Family history of ovarian cancer Family history of ovarian cancer Disease Active 08-07 00:00: 00 [facility] Acquired hypothyroi dism Acquired hypothyroi dism Disease Active 08-07 00:00: 00 [facility] 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 [id number] Obesity, Class III, BMI 40-49.9 (morbid obesity) Problem [facility] Vaginal spotting Vaginal spotting Disease Resolve d 07-20 00:00: 00 2023-08-15 00:00:00 2023-08-15 14:37:41 [facility] Bleeding after intercours e Bleeding after intercours e Disease Resolve d 07-20 00:00: 00 2023-08-15 00:00:00 2023-08-15 14:37:40 [facility] Trichomona l vulvovagin itis Trichomona l vulvovagin itis Disease Resolve d 2015-03 00:00: 00 2023-08-15 00:00:00 2023-08-15 14:37:42 [facility] Chlamydia trachomati s infection of lower genitourin lizandro sites Chlamydia trachomati s infection of lower genitourin lizandro sites Disease Resolve d 08-11 00:00: 00 2023-08-15 00:00:00 2023-08-15 14:37:59 [facility] BV (bacterial vaginosis) BV (bacterial vaginosis) Disease Resolve d 08-11 00:00: 00 2023-08-15 00:00:00 2023-08-15 14:37:43 [facility] Oral contracept vanessa use Oral contracept vanessa use Disease Resolve d 08-07 00:00: 00 2023-08-15 00:00:00 2023-08-15 14:37:50 [facility] Vaginal discharge Vaginal discharge Disease Resolve d 08-07 00:00: 00 2023-08-15 00:00:00 2023-08-15 14:37:45 [facility] Soreness breast Soreness breast Disease Resolve d 08-07 00:00: 00 2023-08-15 00:00:00 2023-08-15 14:37:44 [facility] Obesity Obesity Disease Resolve d 08-07 00:00: 00 2023-08-15 00:00:00 2023-08-15 14:37:55 [facility] DKA, type 1, not at goal DKA, type 1, not at goal Disease Resolve d 10-17 00:00: 00 2020-10-18 00:00:00 2020-10-18 20:56:53 [facility] DKA, type 1, not at goal DKA, type 1, not at goal Disease Resolve d 10-17 00:00: 00 2020-10-18 00:00:00 2020-10-18 20:56:53 [facility] Allergies, Adverse Reactions, Alerts Allergy Name Allergy Type Status Severity Reaction(s) Onset Date Inactive Date Treating Clinician Comments Source latex DA Active U SWELLING 9 00:00: 00 [facility] latex DA Active U UNKNOWN 04-10 00:00: 00 [facility] No Known Allergie s DA Active U 105 00:00: 00 [facility] LATEX DRUG INGREDI Active Swelling 08-07 00:00: 00 [facility] Latex Propensi ty to adverse reaction s Active Swelling 08-07 00:00: 00 Blisters [facility] Latex Allergy to substanc e Active [facility] latex DA Active Unknown [facility] (LUF/[facility] V/SA) No Known Allergie s DA Active [facility] (LUF/LI V/SA) Social History Social Habit Start Date Stop Date Quantity Comments Source ASSERTION Not [facility] of [facility] Sex Assigned At [facility] Alcoholic beverage intake 2024-04-24 00:00:00 2024-04-24 00:00:00 Ex-drinker (finding) [facility] History of Social function 2024-04-24 00:00:00 2024-04-24 00:00:00 [facility] Tobacco use and exposure 2023-08-17 00:00:00 2023-08-17 00:00:00 Smokeless tobacco non-user [facility] Smoking Status Start Date Stop Date Source Never smoked tobacco [facility] Medications Ordered Medication Name Filled Medication Name Start Date Stop Date Current Medication? Ordering Clinician Indication Dosage Frequency Signature (SIG) Comments Components Source norethindro ne 0.35 mg tablet 2 00:00: 00 Yes [id number] 1{tbl} Take 1 tablet by mouth in the morning. [facility] terconazole 80 mg vaginal suppository 2-12 00:00: 00 04-29 05:59 :00 Yes [id number] 80mg Insert 1 Suppositor y into vagina at bedtime for 3 days. [facility] Insulin Glargine (LANTUS SOLOSTAR U-100 INSULIN) 100 unit/mL (3 mL) injection [id number] 1-09 00:00: 00 Yes [id number] 32U inject 32 Units under the skin at bedtime. For Lantus: take HALF dose if or if blood glucose 80 - 120 mg/dL, HOLD if less than 80. [facility] insulin lispro (HUMALOG KWIKPEN INSULIN) 100 unit/mL pen injector insulin lispro (HUMALOG KWIKPEN INSULIN) 100 unit/mL pen injector 03-22 00:00: 00 Yes [id number] Take 8 units with each meal (patient eats 4 meals a day) [facility] semaglutide (OZEMPIC) 1 mg/dose (4 mg/3 mL) PnIj 2023-03 11:09: 04 02-02 00:00 :00 No INJECT 1 MG Subcutaneo us weekly for 28 days [facility] dexAMETHaso ne 1 mg tablet 2023-03 00:00: 00 Yes [id number] Take 1 tab at 11 Pm and come in for blood tests at 8 am next morning [facility] semaglutide (OZEMPIC) 2 mg/dose (8 mg/3 mL) PnIj [id number] 2023-03 00:00: 00 Yes [id number] 2mg inject 2 mg under the skin weekly. [facility] metFORMIN 500 mg tablet metFORMIN 500 mg tablet 2023-03 00:00: 00 Yes [id number] 500mg Take 1 tablet by mouth in the morning and 1 tablet in the evening. Take with meals. [facility] amLODIPine 10 mg tablet amLODIPine 10 mg tablet 2023-03 00:00: 00 Yes [id number] 10mg Take 1 tablet by mouth in the morning. [facility] losartan 50 mg tablet losartan 50 mg tablet 2023-03 00:00: 00 Yes [id number] 50mg Take 1 tablet by mouth in the morning. [facility] Insulin Glargine (LANTUS SOLOSTAR U-100 INSULIN) 100 unit/mL (3 mL) injection 2023-03 00:00: 00 03-22 00:00 :00 No [id number] 15U inject 15 Units under the skin at bedtime. For Lantus: take HALF dose if or if blood glucose 80 - 120 mg/dL, HOLD if less than 80. [facility] insulin lispro (HUMALOG KWIKPEN INSULIN) 100 unit/mL pen injector 2023-03 00:00: 00 03-22 00:00 :00 No [id number] 9U inject 9 Units under the skin in the morning and 9 Units at noon and 9 Units in the evening. inject before meals. Give half dose if patient eats less than half meal OR if blood glucose 80 - 120 mg/dL, HOLD DOSE if or BG < 80 [facility] ampicillin 500 mg capsule 2023-03 00:00: 00 02-02 00:00 :00 No [id number] 500mg Take 1 capsule by mouth every 6 (six) hours. [facility] fluconazole (DIFLUCAN) 150 mg tablet 2023-03 00:00: 00 02-02 00:00 :00 No [id number] 150mg Take 1 tablet by mouth in the morning. [facility] insulin lispro (HUMALOG KWIKPEN INSULIN) 100 unit/mL pen injector 2024-1 1-05 00:00: 00 02-02 00:00 :00 No [id number] 9U inject 9 Units under the skin in the morning and 9 Units at noon and 9 Units in the evening. inject before meals. Give half dose if patient eats less than half meal OR if blood glucose 80 - 120 mg/dL, HOLD DOSE if or BG < 80 [facility] tra[facility] mg tablet 2023-03 0-29 00:00: 00 Yes TAKE 1 TABLET BY MOUTH ONCE DAILY AT BEDTIME NEEDED [facility] semaglutide (OZEMPIC) 2 mg/dose (8 mg/3 mL) PnIj 9- 00:00: 00 02-02 00:00 :00 No 2mg inject 2 mg under the skin weekly. [facility] Insulin Glargine (LANTUS SOLOSTAR U-100 INSULIN) 100 unit/mL (3 mL) injection 10-28 00:00: 00 02-02 00:00 :00 No [id number] 15U inject 15 Units under the skin at bedtime. For Lantus: take HALF dose if or if blood glucose 80 - 120 mg/dL, HOLD if less than 80. [facility] Blood-Gluco se Sensor (FREESTYLE CURT 3 SENSOR) Jenna 10-27 00:00: 00 Yes [id number] Use as directed every 2 weeks [facility] Blood-Gluco se Meter,Chelsey nuous (FREESTYLE CURT 3 READER) [facility] 10-27 00:00: 00 Yes [id number] Use as directed [facility] Blood-Gluco se Sensor (FREESTYLE CURT 3 SENSOR) Jenna 10-27 00:00: 00 Yes [id number] Use as directed every 2 weeks [facility] Blood-Gluco se Meter,Chelsey nuous (FREESTYLE CURT 3 READER) [facility] 10-27 00:00: 00 Yes [id number] Use as directed [facility] insulin lispro (HUMALOG KWIKPEN INSULIN) 200 unit/mL (3 mL) InPn 10-27 00:00: 00 01-16 00:00 :00 No [id number] 9U inject 9 Units under the skin in the morning and 9 Units at noon and 9 Units in the evening. inject before meals. Give half dose if patient eats less than half meal OR if blood glucose 80 - 120 mg/dL, HOLD DOSE if or BG < 80 . [facility] semaglutide (OZEMPIC) 1 mg/dose (4 mg/3 mL) Pn 10-27 00:00: 00 12-08 00:00 :00 No [id number] 1mg inject 1 mg under the skin weekly. [facility] Insulin Glargine (LANTUS SOLOSTAR U-100 INSULIN) 100 unit/mL (3 mL) injection 10-27 00:00: 00 10-28 00:00 :00 No [id number] 15U inject 15 Units under the skin in the morning. For Lantus: take HALF dose if or if blood glucose 80 - 120 mg/dL, HOLD if less than 80. [facility] HUMALOG KWIKPEN INSULIN 200 unit/mL (3 mL) InPn 10-23 00:00: 00 10-27 00:00 :00 No INJECT 60 UNITS SUBCUTANEO USLY THREE TIMES DAILY WITH A MEAL [facility] OZEMPIC 1 mg/dose (4 mg/3 mL) [facility] 10-20 00:00: 00 10-27 00:00 :00 No INJECT 1 MG SUBCUTANEO USLY ONCE A WEEK [facility] SERTraline 100 mg tablet 10-17 00:00: 00 Yes 100mg Take 1 tablet by mouth every morning. [facility] ARIPiprazol e 5 mg tablet 10-17 00:00: 00 Yes 5mg Take 1 tablet by mouth at bedtime. [facility] amLODIPine 10 mg tablet 10-04 00:00: 00 02-02 00:00 :00 No 10mg Take 1 tablet by mouth in the morning. [facility] losartan 50 mg tablet 10-04 00:00: 00 02-02 00:00 :00 No 50mg Take 1 tablet by mouth in the morning. [facility] metFORMIN HCl 1000 MG metFORMIN HCl 1000 MG 10-03 00:00: 00 No 1{table t_with_ a_meal} BID metFORMIN HCl 1000 MG metFORMIN 500 mg tablet 09-04 00:00: 00 02-02 00:00 :00 No [id number] 500mg Take 1 tablet by mouth in the morning and 1 tablet in the evening. Take with meals. [facility] fluconazole 150 mg tablet 09-04 00:00: 00 02-02 00:00 :00 No [id number] Take one tablet PO today, then repeat in 72 hours [facility] quetiapine fumarate (SEROQUEL ORAL) 08-14 13:55: 26 Yes Take by mouth. [facility] losartan 25 mg tablet 06-02 00:00: 00 10-27 00:00 :00 No [facility] lidocaine 0.05 MG/MG Medicated Patch lidocaine 0.05 [...] (as a single dose at bedtime) [facility] ([facility] V/SA) [...] at bedtime (for [address] days) [facility] (LUF/LI V/SA) betamethaso ne 0.5 [...] 1 2xD orally every 12 hours [facility] (LUF/LI V/SA) lithium carbonate ER 450 mg tablet,exte nded release Take 1 tablet every day by oral route. lithium carbonate ER 450 mg tablet,exte nded release Take 1 tablet every day by oral route. No 1 Q1D lithium carbonate ER 450 mg tablet,ext ended release Take 1 tablet every day by oral route. [facility] metformin 500 mg tablet Take 2 tablets twice a day by oral route. metformin 500 mg tablet Take 2 tablets twice a day by oral route. No 2 BID metformin 500 mg tablet Take 2 tablets twice a day by oral route. [facility] trazodone 300 mg tablet TAKE 1 TABLET BY MOUTH ONCE DAILY AT BEDTIME trazodone 300 mg tablet TAKE 1 TABLET BY MOUTH ONCE DAILY AT BEDTIME No trazodone 300 mg tablet TAKE 1 TABLET BY MOUTH ONCE DAILY AT BEDTIME [facility] armodafinil 150 mg tablet Take 1 tablet every day by oral route for 30 days. armodafinil 150 mg tablet Take 1 tablet every day by oral route for 30 days. No 1 Q1D armodafini l 150 mg tablet Take 1 tablet every day by oral route for 30 days. [facility] azithromyci n 500 mg tablet TAKE 1 TABLET BY MOUTH ONCE DAILY azithromyci n 500 mg tablet TAKE 1 TABLET BY MOUTH ONCE DAILY No azithromyc in 500 mg tablet TAKE 1 TABLET BY MOUTH ONCE DAILY [facility] benzonatate 100 mg capsule TAKE 1 CAPSULE BY MOUTH EVERY 4 HOURS NEEDED benzonatate 100 mg capsule TAKE 1 CAPSULE BY MOUTH EVERY 4 HOURS NEEDED No benzonatat e 100 mg capsule TAKE 1 CAPSULE BY MOUTH EVERY 4 HOURS NEEDED [facility] Bydureon BCise 2 mg/0.85 mL subcutaneou s auto-inject or Inject 2 mg every week by subcutaneou s route. Bydureon BCise 2 mg/0.85 mL subcutaneou s auto-inject or Inject 2 mg every week by subcutaneou s route. No 2mg Q1W Bydureon BCise 2 mg/0.85 mL subcutaneo us auto-injec tor Inject 2 mg every week by subcutaneo us route. [facility] ceftriaxone 1 gram solution for injection Take 1 g by injection route. ceftriaxone 1 gram solution for injection Take 1 g by injection route. No 1g ceftriaxon e 1 gram solution for injection Take 1 g by injection route. [facility] glimepiride 4 mg tablet Take 1 tablet every day by oral route. glimepiride 4 mg tablet Take 1 tablet every day by oral route. No 1 Q1D glimepirid e 4 mg tablet Take 1 tablet every day by oral route. [facility] Humulin R Regular U-100 Insuln Humulin R Regular U-100 Insuln No Humulin R Regular U-100 Insuln [facility] hyoscyamine 0.[address] 1 tablet 4 times a day by sublingual route. hyoscyamine 0.[address] 1 tablet 4 times a day by sublingual route. No 1 QID hyoscyamin e 0.[address] 1 tablet 4 times a day by sublingual route. [facility] Latuda 60 mg tablet Take 1 tablet every day by oral route. Latuda 60 mg tablet Take 1 tablet every day by oral route. No 1 Q1D Latuda 60 mg tablet Take 1 tablet every day by oral route. [facility] lithium carbonate ER 450 mg tablet,exte nded release Take 1 tablet every day by oral route. lithium carbonate ER 450 mg tablet,exte nded release Take 1 tablet every day by oral route. No 1 Q1D lithium carbonate ER 450 mg tablet,ext ended release Take 1 tablet every day by oral route. [facility] metformin 500 mg tablet Take 2 tablets twice a day by oral route. metformin 500 mg tablet Take 2 tablets twice a day by oral route. No 2 BID metformin 500 mg tablet Take 2 tablets twice a day by oral route. [facility] terconazole 0.4 % vaginal cream INSERT 1 APPLICATORF UL VAGINALLY ONCE DAILY FOR 7 DAYS terconazole 0.4 % vaginal cream INSERT 1 APPLICATORF UL VAGINALLY ONCE DAILY FOR 7 DAYS No terconazol e 0.4 % vaginal cream INSERT 1 APPLICATOR FUL VAGINALLY ONCE DAILY FOR 7 DAYS [facility] trazodone 100 mg tablet Take 3 tablets every day by oral route at bedtime. trazodone 100 mg tablet Take 3 tablets every day by oral route at bedtime. No 3 Q1D trazodone 100 mg tablet Take 3 tablets every day by oral route at bedtime. [facility] trazodone 300 mg tablet TAKE 1 TABLET BY MOUTH ONCE DAILY AT BEDTIME trazodone 300 mg tablet TAKE 1 TABLET BY MOUTH ONCE DAILY AT BEDTIME No trazodone 300 mg tablet TAKE 1 TABLET BY MOUTH ONCE DAILY AT BEDTIME [facility] armodafinil 150 mg tablet TAKE 1 TABLET BY MOUTH ONCE DAILY FOR 30 DAYS armodafinil 150 mg tablet TAKE 1 TABLET BY MOUTH ONCE DAILY FOR 30 DAYS No armodafini l 150 mg tablet TAKE 1 TABLET BY MOUTH ONCE DAILY FOR 30 DAYS [facility] azithromyci n 500 mg tablet TAKE 1 TABLET BY MOUTH ONCE DAILY azithromyci n 500 mg tablet TAKE 1 TABLET BY MOUTH ONCE DAILY No azithromyc in 500 mg tablet TAKE 1 TABLET BY MOUTH ONCE DAILY [facility] benzonatate 100 mg capsule TAKE 1 CAPSULE BY MOUTH EVERY 4 HOURS NEEDED benzonatate 100 mg capsule TAKE 1 CAPSULE BY MOUTH EVERY 4 HOURS NEEDED No benzonatat e 100 mg capsule TAKE 1 CAPSULE BY MOUTH EVERY 4 HOURS NEEDED [facility] Bydureon BCise 2 mg/0.85 mL subcutaneou s auto-inject or Inject 2 mg every week by subcutaneou s route. Bydureon BCise 2 mg/0.85 mL subcutaneou s auto-inject or Inject 2 mg every week by subcutaneou s route. No 2mg Q1W Bydureon BCise 2 mg/0.85 mL subcutaneo us auto-injec tor Inject 2 mg every week by subcutaneo us route. [facility] ceftriaxone 1 gram solution for injection Take 1 g by injection route. ceftriaxone 1 gram solution for injection Take 1 g by injection route. No 1g ceftriaxon e 1 gram solution for injection Take 1 g by injection route. [facility] glimepiride 4 mg tablet Take 1 tablet every day by oral route. glimepiride 4 mg tablet Take 1 tablet every day by oral route. No 1 Q1D glimepirid e 4 mg tablet Take 1 tablet every day by oral route. [facility] Humulin R Regular U-100 Insuln Humulin R Regular U-100 Insuln No Humulin R Regular U-100 Insuln [facility] hyoscyamine 0.125 mg sublingual tablet DISSOLVE 1 TABLET IN MOUTH 4 TIMES DAILY hyoscyamine 0.125 mg sublingual tablet DISSOLVE 1 TABLET IN MOUTH 4 TIMES DAILY No hyoscyamin e 0.125 mg sublingual tablet DISSOLVE 1 TABLET IN MOUTH 4 TIMES DAILY [facility] Latuda 60 mg tablet Take 1 tablet every day by oral route. Latuda 60 mg tablet Take 1 tablet every day by oral route. No 1 Q1D Latuda 60 mg tablet Take 1 tablet every day by oral route. [facility] lithium carbonate ER 450 mg tablet,exte nded release Take 1 tablet every day by oral route. lithium carbonate ER 450 mg tablet,exte nded release Take 1 tablet every day by oral route. No 1 Q1D lithium carbonate ER 450 mg tablet,ext ended release Take 1 tablet every day by oral route. [facility] metformin 500 mg tablet Take 2 tablets twice a day by oral route. metformin 500 mg tablet Take 2 tablets twice a day by oral route. No 2 BID metformin 500 mg tablet Take 2 tablets twice a day by oral route. [facility] metronidazo le 500 mg tablet Take 1 tablet by oral route as directed. metronidazo le 500 mg tablet Take 1 tablet by oral route as directed. No 1 metronidaz ole 500 mg tablet Take 1 tablet by oral route as directed. [facility] terconazole 0.4 % vaginal cream INSERT 1 APPLICATORF UL VAGINALLY ONCE DAILY FOR 7 DAYS terconazole 0.4 % vaginal cream INSERT 1 APPLICATORF UL VAGINALLY ONCE DAILY FOR 7 DAYS No terconazol e 0.4 % vaginal cream INSERT 1 APPLICATOR FUL VAGINALLY ONCE DAILY FOR 7 DAYS [facility] trazodone 300 mg tablet TAKE 1 TABLET BY MOUTH ONCE DAILY AT BEDTIME trazodone 300 mg tablet TAKE 1 TABLET BY MOUTH ONCE DAILY AT BEDTIME No trazodone 300 mg tablet TAKE 1 TABLET BY MOUTH ONCE DAILY AT BEDTIME [facility] armodafinil 150 mg tablet Take 1 tablet every day by oral route for 30 days. armodafinil 150 mg tablet Take 1 tablet every day by oral route for 30 days. No 1 Q1D armodafini l 150 mg tablet Take 1 tablet every day by oral route for 30 days. [facility] azelaic acid 15 % topical gel APPLY [...] BY TOPICAL ROUTE 2 TIMES PER DAY [facility] azithromyci n 500 mg tablet TAKE 1 TABLET BY MOUTH ONCE DAILY azithromyci n 500 mg tablet TAKE 1 TABLET BY MOUTH ONCE DAILY No azithromyc in 500 mg tablet TAKE 1 TABLET BY MOUTH ONCE DAILY [facility] benzonatate 100 mg capsule TAKE 1 CAPSULE BY MOUTH EVERY 4 HOURS NEEDED benzonatate 100 mg capsule TAKE 1 CAPSULE BY MOUTH EVERY 4 HOURS NEEDED No benzonatat e 100 mg capsule TAKE 1 CAPSULE BY MOUTH EVERY 4 HOURS NEEDED [facility] Bydureon BCise 2 mg/0.85 mL subcutaneou s auto-inject or Inject 2 mg every week by subcutaneou s route. Bydureon BCise 2 mg/0.85 mL subcutaneou s auto-inject or Inject 2 mg every week by subcutaneou s route. No 2mg Q1W Bydureon BCise 2 mg/0.85 mL subcutaneo us auto-injec tor Inject 2 mg every week by subcutaneo us route. [facility] ceftriaxone 1 gram solution for injection Take 1 g by injection route. ceftriaxone 1 gram solution for injection Take 1 g by injection route. No 1g ceftriaxon e 1 gram solution for injection Take 1 g by injection route. [facility] glimepiride 4 mg tablet Take 1 tablet every day by oral route. glimepiride 4 mg tablet Take 1 tablet every day by oral route. No 1 Q1D glimepirid e 4 mg tablet Take 1 tablet every day by oral route. [facility] Humulin R Regular U-100 Insuln Humulin R Regular U-100 Insuln No Humulin R Regular U-100 Insuln [facility] hyoscyamine 0.125 mg sublingual tablet DISSOLVE 1 TABLET IN MOUTH 4 TIMES DAILY hyoscyamine 0.125 mg sublingual tablet DISSOLVE 1 TABLET IN MOUTH 4 TIMES DAILY No hyoscyamin e 0.125 mg sublingual tablet DISSOLVE 1 TABLET IN MOUTH 4 TIMES DAILY [facility] Latuda 60 mg tablet Take 1 tablet every day by oral route. Latuda 60 mg tablet Take 1 tablet every day by oral route. No 1 Q1D Latuda 60 mg tablet Take 1 tablet every day by oral route. [facility] lithium carbonate ER 450 mg tablet,exte nded release Take 1 tablet every day by oral route. lithium carbonate ER 450 mg tablet,exte nded release Take 1 tablet every day by oral route. No 1 Q1D lithium carbonate ER 450 mg tablet,ext ended release Take 1 tablet every day by oral route. [facility] metformin 500 mg tablet Take 2 tablets twice a day by oral route. metformin 500 mg tablet Take 2 tablets twice a day by oral route. No 2 BID metformin 500 mg tablet Take 2 tablets twice a day by oral route. [facility] metronidazo le 0.75 % topical gel [...] PER DAY IN THE MORNING AND EVENING [facility] metronidazo le 500 mg tablet Take 1 tablet by oral route as directed. metronidazo le 500 mg tablet Take 1 tablet by oral route as directed. No metronidaz ole 500 mg tablet Take 1 tablet by oral route as directed. [facility] terconazole 0.4 % vaginal cream INSERT 1 APPLICATORF UL VAGINALLY ONCE DAILY FOR 7 DAYS terconazole 0.4 % vaginal cream INSERT 1 APPLICATORF UL VAGINALLY ONCE DAILY FOR 7 DAYS No terconazol e 0.4 % vaginal cream INSERT 1 APPLICATOR FUL VAGINALLY ONCE DAILY FOR 7 DAYS [facility] trazodone 300 mg tablet TAKE 1 TABLET BY MOUTH ONCE DAILY AT BEDTIME trazodone 300 mg tablet TAKE 1 TABLET BY MOUTH ONCE DAILY AT BEDTIME No trazodone 300 mg tablet TAKE 1 TABLET BY MOUTH ONCE DAILY AT BEDTIME [facility] cetirizine 10 mg tablet Take 1 tablet every day by oral route. cetirizine 10 mg tablet Take 1 tablet every day by oral route. No 1 Q1D cetirizine 10 mg tablet Take 1 tablet every day by oral route. [facility] Flonase Allergy Relief 50 mcg/actuati on nasal spray,suspe nsion Cocoa 1 spray every day by intranasal route. Flonase Allergy Relief 50 mcg/actuati on nasal spray,suspe nsion Cocoa 1 spray every day by intranasal route. No 1spray( s) Q1D Flonase Allergy Relief 50 mcg/actuat ion nasal spray,susp ension Cocoa 1 spray every day by intranasal route. [facility] Latuda 20 mg tablet Take 1 tablet every day by oral route. Latuda 20 mg tablet Take 1 tablet every day by oral route. No 1 Q1D Latuda 20 mg tablet Take 1 tablet every day by oral route. [facility] armodafinil 150 mg tablet Take 1 tablet every day by oral route for 30 days. armodafinil 150 mg tablet Take 1 tablet every day by oral route for 30 days. No armodafini l 150 mg tablet Take 1 tablet every day by oral route for 30 days. [facility] azelaic acid 15 % topical gel [...] BY TOPICAL ROUTE 2 TIMES PER DAY [facility] azithromyci n 500 mg tablet TAKE 1 TABLET BY MOUTH ONCE DAILY azithromyci n 500 mg tablet TAKE 1 TABLET BY MOUTH ONCE DAILY No azithromyc in 500 mg tablet TAKE 1 TABLET BY MOUTH ONCE DAILY [facility] benzonatate 100 mg capsule TAKE 1 CAPSULE BY MOUTH EVERY 4 HOURS NEEDED benzonatate 100 mg capsule TAKE 1 CAPSULE BY MOUTH EVERY 4 HOURS NEEDED No benzonatat e 100 mg capsule TAKE 1 CAPSULE BY MOUTH EVERY 4 HOURS NEEDED [facility] Bydureon BCise 2 mg/0.85 mL subcutaneou s auto-inject or Inject 2 mg every week by subcutaneou s route. Bydureon BCise 2 mg/0.85 mL subcutaneou s auto-inject or Inject 2 mg every week by subcutaneou s route. No 2mg Q1W Bydureon BCise 2 mg/0.85 mL subcutaneo us auto-injec tor Inject 2 mg every week by subcutaneo us route. [facility] ceftriaxone 1 gram solution for injection Take 1 g by injection route. ceftriaxone 1 gram solution for injection Take 1 g by injection route. No 1g ceftriaxon e 1 gram solution for injection Take 1 g by injection route. [facility] cetirizine 10 mg tablet Take 1 tablet every day by oral route. cetirizine 10 mg tablet Take 1 tablet every day by oral route. No 1 Q1D cetirizine 10 mg tablet Take 1 tablet every day by oral route. [facility] Cipro 500 mg tablet Take 1 tablet every 12 hours by oral route for 7 days. Cipro 500 mg tablet Take 1 tablet every 12 hours by oral route for 7 days. No 1 Q12H Cipro 500 mg tablet Take 1 tablet every 12 hours by oral route for 7 days. [facility] Flonase Allergy Relief 50 mcg/actuati on nasal spray,suspe nsion Cocoa 1 spray every day by intranasal route. Flonase Allergy Relief 50 mcg/actuati on nasal spray,suspe nsion Cocoa 1 spray every day by intranasal route. No 1spray( s) Q1D Flonase Allergy Relief 50 mcg/actuat ion nasal spray,susp ension Cocoa 1 spray every day by intranasal route. [facility] glimepiride 4 mg tablet Take 1 tablet every day by oral route. glimepiride 4 mg tablet Take 1 tablet every day by oral route. No 1 Q1D glimepirid e 4 mg tablet Take 1 tablet every day by oral route. [facility] Humulin R Regular U-100 Insuln Humulin R Regular U-100 Insuln No Humulin R Regular U-100 Insuln [facility] hyoscyamine 0.125 mg sublingual tablet DISSOLVE 1 TABLET IN MOUTH 4 TIMES DAILY hyoscyamine 0.125 mg sublingual tablet DISSOLVE 1 TABLET IN MOUTH 4 TIMES DAILY No hyoscyamin e 0.125 mg sublingual tablet DISSOLVE 1 TABLET IN MOUTH 4 TIMES DAILY [facility] Latuda 20 mg tablet Take 1 tablet every day by oral route. Latuda 20 mg tablet Take 1 tablet every day by oral route. No 1 Q1D Latuda 20 mg tablet Take 1 tablet every day by oral route. [facility] Latuda 60 mg tablet Take 1 tablet every day by oral route. Latuda 60 mg tablet Take 1 tablet every day by oral route. No 1 Q1D Latuda 60 mg tablet Take 1 tablet every day by oral route. [facility] lithium carbonate ER 450 mg tablet,exte nded release Take 1 tablet every day by oral route. lithium carbonate ER 450 mg tablet,exte nded release Take 1 tablet every day by oral route. No 1 Q1D lithium carbonate ER 450 mg tablet,ext ended release Take 1 tablet every day by oral route. [facility] metformin 500 mg tablet Take 2 tablets twice a day by oral route. metformin 500 mg tablet Take 2 tablets twice a day by oral route. No 2 BID metformin 500 mg tablet Take 2 tablets twice a day by oral route. [facility] metronidazo le 0.75 % topical gel APPLY [...] PER DAY IN THE MORNING AND EVENING [facility] metronidazo le 500 mg tablet TAKE 4 TABLETS BY MOUTH DIRECTED AT ONCE metronidazo le 500 mg tablet TAKE 4 TABLETS BY MOUTH DIRECTED AT ONCE No metronidaz ole 500 mg tablet TAKE 4 TABLETS BY MOUTH DIRECTED AT ONCE [facility] ondansetron 8 mg disintegrat ing tablet Place 1 tablet twice a day by translingua l route as needed. ondansetron 8 mg disintegrat ing tablet Place 1 tablet twice a day by translingua l route as needed. No 1 BID ondansetro n 8 mg disintegra ting tablet Place 1 tablet twice a day by translingu al route as needed. [facility] terconazole 0.4 % vaginal cream INSERT 1 APPLICATORF UL VAGINALLY ONCE DAILY FOR 7 DAYS terconazole 0.4 % vaginal cream INSERT 1 APPLICATORF UL VAGINALLY ONCE DAILY FOR 7 DAYS No terconazol e 0.4 % vaginal cream INSERT 1 APPLICATOR FUL VAGINALLY ONCE DAILY FOR 7 DAYS [facility] trazodone 300 mg tablet TAKE 1 TABLET BY MOUTH ONCE DAILY AT BEDTIME trazodone 300 mg tablet TAKE 1 TABLET BY MOUTH ONCE DAILY AT BEDTIME No trazodone 300 mg tablet TAKE 1 TABLET BY MOUTH ONCE DAILY AT BEDTIME [facility] armodafinil 150 mg tablet Take 1 tablet every day by oral route for 30 days. armodafinil 150 mg tablet Take 1 tablet every day by oral route for 30 days. No armodafini l 150 mg tablet Take 1 tablet every day by oral route for 30 days. [facility] azelaic acid 15 % topical gel [...] BY TOPICAL ROUTE 2 TIMES PER DAY [facility] azithromyci n 500 mg tablet TAKE 1 TABLET BY MOUTH ONCE DAILY azithromyci n 500 mg tablet TAKE 1 TABLET BY MOUTH ONCE DAILY No azithromyc in 500 mg tablet TAKE 1 TABLET BY MOUTH ONCE DAILY [facility] benzonatate 100 mg capsule TAKE 1 CAPSULE BY MOUTH EVERY 4 HOURS NEEDED benzonatate 100 mg capsule TAKE 1 CAPSULE BY MOUTH EVERY 4 HOURS NEEDED No benzonatat e 100 mg capsule TAKE 1 CAPSULE BY MOUTH EVERY 4 HOURS NEEDED [facility] Bydureon BCise 2 mg/0.85 mL subcutaneou s auto-inject or Inject 2 mg every week by subcutaneou s route. Bydureon BCise 2 mg/0.85 mL subcutaneou s auto-inject or Inject 2 mg every week by subcutaneou s route. No 2mg Q1W Bydureon BCise 2 mg/0.85 mL subcutaneo us auto-injec tor Inject 2 mg every week by subcutaneo us route. [facility] ceftriaxone 1 gram solution for injection Take 1 g by injection route. ceftriaxone 1 gram solution for injection Take 1 g by injection route. No 1g ceftriaxon e 1 gram solution for injection Take 1 g by injection route. [facility] cetirizine 10 mg tablet Take 1 tablet every day by oral route. cetirizine 10 mg tablet Take 1 tablet every day by oral route. No 1 Q1D cetirizine 10 mg tablet Take 1 tablet every day by oral route. [facility] Cipro 500 mg tablet Take 1 tablet every 12 hours by oral route for 7 days. Cipro 500 mg tablet Take 1 tablet every 12 hours by oral route for 7 days. No 1 Q12H Cipro 500 mg tablet Take 1 tablet every 12 hours by oral route for 7 days. [facility] Flonase Allergy Relief 50 mcg/actuati on nasal spray,suspe nsion Cocoa 1 spray every day by intranasal route. Flonase Allergy Relief 50 mcg/actuati on nasal spray,suspe nsion Cocoa 1 spray every day by intranasal route. No 1spray( s) Q1D Flonase Allergy Relief 50 mcg/actuat ion nasal spray,susp ension Cocoa 1 spray every day by intranasal route. [facility] glimepiride 4 mg tablet Take 1 tablet every day by oral route. glimepiride 4 mg tablet Take 1 tablet every day by oral route. No 1 Q1D glimepirid e 4 mg tablet Take 1 tablet every day by oral route. [facility] Humulin R Regular U-100 Insuln Humulin R Regular U-100 Insuln No Humulin R Regular U-100 Insuln [facility] hyoscyamine 0.125 mg sublingual tablet DISSOLVE 1 TABLET IN MOUTH 4 TIMES DAILY hyoscyamine 0.125 mg sublingual tablet DISSOLVE 1 TABLET IN MOUTH 4 TIMES DAILY No hyoscyamin e 0.125 mg sublingual tablet DISSOLVE 1 TABLET IN MOUTH 4 TIMES DAILY [facility] Latuda 20 mg tablet Take 1 tablet every day by oral route. Latuda 20 mg tablet Take 1 tablet every day by oral route. No 1 Q1D Latuda 20 mg tablet Take 1 tablet every day by oral route. [facility] Latuda 60 mg tablet Take 1 tablet every day by oral route. Latuda 60 mg tablet Take 1 tablet every day by oral route. No 1 Q1D Latuda 60 mg tablet Take 1 tablet every day by oral route. [facility] lithium carbonate ER 450 mg tablet,exte nded release Take 1 tablet every day by oral route. lithium carbonate ER 450 mg tablet,exte nded release Take 1 tablet every day by oral route. No 1 Q1D lithium carbonate ER 450 mg tablet,ext ended release Take 1 tablet every day by oral route. [facility] metformin 500 mg tablet Take 2 tablets twice a day by oral route. metformin 500 mg tablet Take 2 tablets twice a day by oral route. No 2 BID metformin 500 mg tablet Take 2 tablets twice a day by oral route. [facility] metronidazo le 0.75 % topical gel [...] PER DAY IN THE MORNING AND EVENING [facility] metronidazo le 500 mg tablet TAKE 4 TABLETS BY MOUTH DIRECTED AT ONCE metronidazo le 500 mg tablet TAKE 4 TABLETS BY MOUTH DIRECTED AT ONCE No metronidaz ole 500 mg tablet TAKE 4 TABLETS BY MOUTH DIRECTED AT ONCE [facility] ondansetron 8 mg disintegrat ing tablet Place 1 tablet twice a day by translingua l route as needed. ondansetron 8 mg disintegrat ing tablet Place 1 tablet twice a day by translingua l route as needed. No 1 BID ondansetro n 8 mg disintegra ting tablet Place 1 tablet twice a day by translingu al route as needed. [facility] terconazole 0.4 % vaginal cream INSERT 1 APPLICATORF UL VAGINALLY ONCE DAILY FOR 7 DAYS terconazole 0.4 % vaginal cream INSERT 1 APPLICATORF UL VAGINALLY ONCE DAILY FOR 7 DAYS No terconazol e 0.4 % vaginal cream INSERT 1 APPLICATOR FUL VAGINALLY ONCE DAILY FOR 7 DAYS [facility] trazodone 300 mg tablet TAKE 1 TABLET BY MOUTH ONCE DAILY AT BEDTIME trazodone 300 mg tablet TAKE 1 TABLET BY MOUTH ONCE DAILY AT BEDTIME No trazodone 300 mg tablet TAKE 1 TABLET BY MOUTH ONCE DAILY AT BEDTIME [facility] albuterol sulfate HFA 90 mcg/actuati on aerosol inhaler Inhale 2 puffs every 4-6 hours by inhalation route as needed. albuterol sulfate HFA 90 mcg/actuati on aerosol inhaler Inhale 2 puffs every 4-6 hours by inhalation route as needed. No 2puff(s ) Q5H albuterol sulfate HFA 90 mcg/actuat ion aerosol inhaler Inhale 2 puffs every 4-6 hours by inhalation route as needed. [facility] armodafinil 150 mg tablet Take 1 tablet every day by oral route for 30 days. armodafinil 150 mg tablet Take 1 tablet every day by oral route for 30 days. No armodafini l 150 mg tablet Take 1 tablet every day by oral route for 30 days. [facility] azelaic acid 15 % topical gel [...] BY TOPICAL ROUTE 2 TIMES PER DAY [facility] azithromyci n 500 mg tablet TAKE 1 TABLET BY MOUTH ONCE DAILY azithromyci n 500 mg tablet TAKE 1 TABLET BY MOUTH ONCE DAILY No azithromyc in 500 mg tablet TAKE 1 TABLET BY MOUTH ONCE DAILY [facility] benzonatate 100 mg capsule TAKE 1 CAPSULE BY MOUTH EVERY 4 HOURS NEEDED benzonatate 100 mg capsule TAKE 1 CAPSULE BY MOUTH EVERY 4 HOURS NEEDED No benzonatat e 100 mg capsule TAKE 1 CAPSULE BY MOUTH EVERY 4 HOURS NEEDED [facility] bupropion HCl XL 150 mg 24 hr tablet, extended release bupropion HCl XL 150 mg 24 hr tablet, extended release No bupropion HCl XL 150 mg 24 hr tablet, extended release [facility] Bydureon BCise 2 mg/0.85 mL subcutaneou s auto-inject or Inject 2 mg every week by subcutaneou s route. Bydureon BCise 2 mg/0.85 mL subcutaneou s auto-inject or Inject 2 mg every week by subcutaneou s route. No 2mg Q1W Bydureon BCise 2 mg/0.85 mL subcutaneo us auto-injec tor Inject 2 mg every week by subcutaneo us route. [facility] ceftriaxone 1 gram solution for injection Take 1 g by injection route. ceftriaxone 1 gram solution for injection Take 1 g by injection route. No 1g ceftriaxon e 1 gram solution for injection Take 1 g by injection route. [facility] cetirizine 10 mg tablet Take 1 tablet every day by oral route. cetirizine 10 mg tablet Take 1 tablet every day by oral route. No cetirizine 10 mg tablet Take 1 tablet every day by oral route. [facility] ciprofloxac in 500 mg tablet Take 1 tablet every 12 hours by oral route for 7 days. ciprofloxac in 500 mg tablet Take 1 tablet every 12 hours by oral route for 7 days. No ciprofloxa john 500 mg tablet Take 1 tablet every 12 hours by oral route for 7 days. [facility] fluconazole 200 mg tablet TAKE 1 TABLET BY MOUTH ONCE DAILY FOR 3 DAYS fluconazole 200 mg tablet TAKE 1 TABLET BY MOUTH ONCE DAILY FOR 3 DAYS No fluconazol e 200 mg tablet TAKE 1 TABLET BY MOUTH ONCE DAILY FOR 3 DAYS [facility] fluticasone propionate 50 mcg/actuati on nasal spray,suspe nsion Cocoa 1 spray every day by intranasal route. fluticasone propionate 50 mcg/actuati on nasal spray,suspe nsion Cocoa 1 spray every day by intranasal route. No fluticason e propionate 50 mcg/actuat ion nasal spray,susp ension Cocoa 1 spray every day by intranasal route. [facility] glimepiride 4 mg tablet Take 1 tablet every day by oral route. glimepiride 4 mg tablet Take 1 tablet every day by oral route. No 1 Q1D glimepirid e 4 mg tablet Take 1 tablet every day by oral route. [facility] Humulin R Regular U-100 Insuln Humulin R Regular U-100 Insuln No Humulin R Regular U-100 Insuln [facility] hyoscyamine 0.125 mg sublingual tablet DISSOLVE 1 TABLET IN MOUTH 4 TIMES DAILY hyoscyamine 0.125 mg sublingual tablet DISSOLVE 1 TABLET IN MOUTH 4 TIMES DAILY No hyoscyamin e 0.125 mg sublingual tablet DISSOLVE 1 TABLET IN MOUTH 4 TIMES DAILY [facility] Latuda 20 mg tablet Take 1 tablet every day by oral route. Latuda 20 mg tablet Take 1 tablet every day by oral route. No Latuda 20 mg tablet Take 1 tablet every day by oral route. [facility] Latuda 60 mg tablet Take 1 tablet every day by oral route. Latuda 60 mg tablet Take 1 tablet every day by oral route. No Latuda 60 mg tablet Take 1 tablet every day by oral route. [facility] Lidocaine Viscous 2 % mucosal solution Lidocaine Viscous 2 % mucosal solution No Lidocaine Viscous 2 % mucosal solution [facility] lithium carbonate ER 450 mg tablet,exte nded release Take 1 tablet every day by oral route. lithium carbonate ER 450 mg tablet,exte nded release Take 1 tablet every day by oral route. No 1 Q1D lithium carbonate ER 450 mg tablet,ext ended release Take 1 tablet every day by oral route. [facility] metformin 500 mg tablet Take 2 tablets twice a day by oral route. metformin 500 mg tablet Take 2 tablets twice a day by oral route. No 2 BID metformin 500 mg tablet Take 2 tablets twice a day by oral route. [facility] metronidazo le 0.75 % topical gel APPLY [...] PER DAY IN THE MORNING AND EVENING [facility] metronidazo le 500 mg tablet TAKE 4 TABLETS BY MOUTH DIRECTED AT ONCE metronidazo le 500 mg tablet TAKE 4 TABLETS BY MOUTH DIRECTED AT ONCE No metronidaz ole 500 mg tablet TAKE 4 TABLETS BY MOUTH DIRECTED AT ONCE [facility] ondansetron 8 mg disintegrat ing tablet Place 1 tablet twice a day by translingua l route as needed. ondansetron 8 mg disintegrat ing tablet Place 1 tablet twice a day by translingua l route as needed. No ondansetro n 8 mg disintegra ting tablet Place 1 tablet twice a day by translingu al route as needed. [facility] terconazole 0.4 % vaginal cream INSERT 1 APPLICATORF UL VAGINALLY ONCE DAILY FOR 7 DAYS terconazole 0.4 % vaginal cream INSERT 1 APPLICATORF UL VAGINALLY ONCE DAILY FOR 7 DAYS No terconazol e 0.4 % vaginal cream INSERT 1 APPLICATOR FUL VAGINALLY ONCE DAILY FOR 7 DAYS [facility] trazodone 300 mg tablet TAKE 1 TABLET BY MOUTH ONCE DAILY AT BEDTIME trazodone 300 mg tablet TAKE 1 TABLET BY MOUTH ONCE DAILY AT BEDTIME No trazodone 300 mg tablet TAKE 1 TABLET BY MOUTH ONCE DAILY AT BEDTIME [facility] armodafinil 150 mg tablet Take 1 tablet every day by oral route for 30 days. armodafinil 150 mg tablet Take 1 tablet every day by oral route for 30 days. No armodafini l 150 mg tablet Take 1 tablet every day by oral route for 30 days. [facility] azelaic acid 15 % topical gel [...] BY TOPICAL ROUTE 2 TIMES PER DAY [facility] azithromyci n 500 mg tablet TAKE 1 TABLET BY MOUTH ONCE DAILY azithromyci n 500 mg tablet TAKE 1 TABLET BY MOUTH ONCE DAILY No azithromyc in 500 mg tablet TAKE 1 TABLET BY MOUTH ONCE DAILY [facility] benzonatate 100 mg capsule TAKE 1 CAPSULE BY MOUTH EVERY 4 HOURS NEEDED benzonatate 100 mg capsule TAKE 1 CAPSULE BY MOUTH EVERY 4 HOURS NEEDED No benzonatat e 100 mg capsule TAKE 1 CAPSULE BY MOUTH EVERY 4 HOURS NEEDED [facility] bupropion HCl XL 150 mg 24 hr tablet, extended release bupropion HCl XL 150 mg 24 hr tablet, extended release No bupropion HCl XL 150 mg 24 hr tablet, extended release [facility] Bydureon BCise 2 mg/0.85 mL subcutaneou s auto-inject or Inject 2 mg every week by subcutaneou s route. Bydureon BCise 2 mg/0.85 mL subcutaneou s auto-inject or Inject 2 mg every week by subcutaneou s route. No 2mg Q1W Bydureon BCise 2 mg/0.85 mL subcutaneo us auto-injec tor Inject 2 mg every week by subcutaneo us route. [facility] ceftriaxone 1 gram solution for injection Take 1 g by injection route. ceftriaxone 1 gram solution for injection Take 1 g by injection route. No 1g ceftriaxon e 1 gram solution for injection Take 1 g by injection route. [facility] cetirizine 10 mg tablet Take 1 tablet every day by oral route. cetirizine 10 mg tablet Take 1 tablet every day by oral route. No cetirizine 10 mg tablet Take 1 tablet every day by oral route. [facility] ciprofloxac in 500 mg tablet Take 1 tablet every 12 hours by oral route for 7 days. ciprofloxac in 500 mg tablet Take 1 tablet every 12 hours by oral route for 7 days. No ciprofloxa john 500 mg tablet Take 1 tablet every 12 hours by oral route for 7 days. [facility] fluconazole 200 mg tablet TAKE 1 TABLET BY MOUTH ONCE DAILY FOR 3 DAYS fluconazole 200 mg tablet TAKE 1 TABLET BY MOUTH ONCE DAILY FOR 3 DAYS No fluconazol e 200 mg tablet TAKE 1 TABLET BY MOUTH ONCE DAILY FOR 3 DAYS [facility] fluticasone propionate 50 mcg/actuati on nasal spray,suspe nsion Cocoa 1 spray every day by intranasal route. fluticasone propionate 50 mcg/actuati on nasal spray,suspe nsion Cocoa 1 spray every day by intranasal route. No fluticason e propionate 50 mcg/actuat ion nasal spray,susp ension Cocoa 1 spray every day by intranasal route. [facility] glimepiride 4 mg tablet Take 1 tablet every day by oral route. glimepiride 4 mg tablet Take 1 tablet every day by oral route. No 1 Q1D glimepirid e 4 mg tablet Take 1 tablet every day by oral route. [facility] Humulin R Regular U-100 Insuln Humulin R Regular U-100 Insuln No Humulin R Regular U-100 Insuln [facility] hyoscyamine 0.125 mg sublingual tablet DISSOLVE 1 TABLET IN MOUTH 4 TIMES DAILY hyoscyamine 0.125 mg sublingual tablet DISSOLVE 1 TABLET IN MOUTH 4 TIMES DAILY No hyoscyamin e 0.125 mg sublingual tablet DISSOLVE 1 TABLET IN MOUTH 4 TIMES DAILY [facility] Latuda 20 mg tablet Take 1 tablet every day by oral route. Latuda 20 mg tablet Take 1 tablet every day by oral route. No 1 Q1D Latuda 20 mg tablet Take 1 tablet every day by oral route. [facility] Latuda 60 mg tablet Take 1 tablet every day by oral route. Latuda 60 mg tablet Take 1 tablet every day by oral route. No Latuda 60 mg tablet Take 1 tablet every day by oral route. [facility] Lidocaine Viscous 2 % mucosal solution Lidocaine Viscous 2 % mucosal solution No Lidocaine Viscous 2 % mucosal solution [facility] lisinopril 10 mg tablet Take 1 tablet every day by oral route. lisinopril 10 mg tablet Take 1 tablet every day by oral route. No 1 Q1D lisinopril 10 mg tablet Take 1 tablet every day by oral route. [facility] lithium carbonate ER 450 mg tablet,exte nded release Take 1 tablet every day by oral route. lithium carbonate ER 450 mg tablet,exte nded release Take 1 tablet every day by oral route. No 1 Q1D lithium carbonate ER 450 mg tablet,ext ended release Take 1 tablet every day by oral route. [facility] metformin 500 mg tablet Take 2 tablets twice a day by oral route. metformin 500 mg tablet Take 2 tablets twice a day by oral route. No 2 BID metformin 500 mg tablet Take 2 tablets twice a day by oral route. [facility] metronidazo le 0.75 % topical gel APPLY [...] PER DAY IN THE MORNING AND EVENING [facility] metronidazo le 500 mg tablet TAKE 4 TABLETS BY MOUTH DIRECTED AT ONCE metronidazo le 500 mg tablet TAKE 4 TABLETS BY MOUTH DIRECTED AT ONCE No metronidaz ole 500 mg tablet TAKE 4 TABLETS BY MOUTH DIRECTED AT ONCE [facility] ondansetron 8 mg disintegrat ing tablet Place 1 tablet twice a day by translingua l route as needed. ondansetron 8 mg disintegrat ing tablet Place 1 tablet twice a day by translingua l route as needed. No ondansetro n 8 mg disintegra ting tablet Place 1 tablet twice a day by translingu al route as needed. [facility] sulfamethox azole 800 mg-trimetho prim 160 mg tablet sulfamethox azole 800 mg-trimetho prim 160 mg tablet No sulfametho xazole 800 mg-trimeth oprim 160 mg tablet [facility] terconazole 0.4 % vaginal cream INSERT 1 APPLICATORF UL VAGINALLY ONCE DAILY FOR 7 DAYS terconazole 0.4 % vaginal cream INSERT 1 APPLICATORF UL VAGINALLY ONCE DAILY FOR 7 DAYS No terconazol e 0.4 % vaginal cream INSERT 1 APPLICATOR FUL VAGINALLY ONCE DAILY FOR 7 DAYS [facility] trazodone 300 mg tablet TAKE 1 TABLET BY MOUTH ONCE DAILY AT BEDTIME trazodone 300 mg tablet TAKE 1 TABLET BY MOUTH ONCE DAILY AT BEDTIME No trazodone 300 mg tablet TAKE 1 TABLET BY MOUTH ONCE DAILY AT BEDTIME [facility] Ventolin HFA 90 mcg/actuati on aerosol inhaler Inhale 2 puffs every 4-6 hours by inhalation route as needed. Ventolin HFA 90 mcg/actuati on aerosol inhaler Inhale 2 puffs every 4-6 hours by inhalation route as needed. No Ventolin HFA 90 mcg/actuat ion aerosol inhaler Inhale 2 puffs every 4-6 hours by inhalation route as needed. [facility] armodafinil 150 mg tablet Take 1 tablet every day by oral route for 30 days. armodafinil 150 mg tablet Take 1 tablet every day by oral route for 30 days. No armodafini l 150 mg tablet Take 1 tablet every day by oral route for 30 days. [facility] azelaic acid 15 % topical gel [...] BY TOPICAL ROUTE 2 TIMES PER DAY [facility] azithromyci n 500 mg tablet TAKE 1 TABLET BY MOUTH ONCE DAILY azithromyci n 500 mg tablet TAKE 1 TABLET BY MOUTH ONCE DAILY No azithromyc in 500 mg tablet TAKE 1 TABLET BY MOUTH ONCE DAILY [facility] benzonatate 100 mg capsule TAKE 1 CAPSULE BY MOUTH EVERY 4 HOURS NEEDED benzonatate 100 mg capsule TAKE 1 CAPSULE BY MOUTH EVERY 4 HOURS NEEDED No benzonatat e 100 mg capsule TAKE 1 CAPSULE BY MOUTH EVERY 4 HOURS NEEDED [facility] bupropion HCl XL 150 mg 24 hr tablet, extended release bupropion HCl XL 150 mg 24 hr tablet, extended release No bupropion HCl XL 150 mg 24 hr tablet, extended release [facility] Bydureon BCise 2 mg/0.85 mL subcutaneou s auto-inject or Inject 2 mg every week by subcutaneou s route. Bydureon BCise 2 mg/0.85 mL subcutaneou s auto-inject or Inject 2 mg every week by subcutaneou s route. No 2mg Q1W Bydureon BCise 2 mg/0.85 mL subcutaneo us auto-injec tor Inject 2 mg every week by subcutaneo us route. [facility] ceftriaxone 1 gram solution for injection Take 1 g by injection route. ceftriaxone 1 gram solution for injection Take 1 g by injection route. No 1g ceftriaxon e 1 gram solution for injection Take 1 g by injection route. [facility] cetirizine 10 mg tablet Take 1 tablet every day by oral route. cetirizine 10 mg tablet Take 1 tablet every day by oral route. No cetirizine 10 mg tablet Take 1 tablet every day by oral route. [facility] ciprofloxac in 500 mg tablet Take 1 tablet every 12 hours by oral route for 7 days. ciprofloxac in 500 mg tablet Take 1 tablet every 12 hours by oral route for 7 days. No ciprofloxa john 500 mg tablet Take 1 tablet every 12 hours by oral route for 7 days. [facility] fluconazole 200 mg tablet TAKE 1 TABLET BY MOUTH ONCE DAILY FOR 3 DAYS fluconazole 200 mg tablet TAKE 1 TABLET BY MOUTH ONCE DAILY FOR 3 DAYS No fluconazol e 200 mg tablet TAKE 1 TABLET BY MOUTH ONCE DAILY FOR 3 DAYS [facility] fluticasone propionate 50 mcg/actuati on nasal spray,suspe nsion Cocoa 1 spray every day by intranasal route. fluticasone propionate 50 mcg/actuati on nasal spray,suspe nsion Cocoa 1 spray every day by intranasal route. No fluticason e propionate 50 mcg/actuat ion nasal spray,susp ension Cocoa 1 spray every day by intranasal route. [facility] glimepiride 4 mg tablet Take 1 tablet every day by oral route. glimepiride 4 mg tablet Take 1 tablet every day by oral route. No 1 Q1D glimepirid e 4 mg tablet Take 1 tablet every day by oral route. [facility] Humulin R Regular U-100 Insuln Humulin R Regular U-100 Insuln No Humulin R Regular U-100 Insuln [facility] hyoscyamine 0.125 mg sublingual tablet DISSOLVE 1 TABLET IN MOUTH 4 TIMES DAILY hyoscyamine 0.125 mg sublingual tablet DISSOLVE 1 TABLET IN MOUTH 4 TIMES DAILY No hyoscyamin e 0.125 mg sublingual tablet DISSOLVE 1 TABLET IN MOUTH 4 TIMES DAILY [facility] Latuda 20 mg tablet Take 1 tablet every day by oral route. Latuda 20 mg tablet Take 1 tablet every day by oral route. No 1 Q1D Latuda 20 mg tablet Take 1 tablet every day by oral route. [facility] Latuda 60 mg tablet Take 1 tablet every day by oral route. Latuda 60 mg tablet Take 1 tablet every day by oral route. No Latuda 60 mg tablet Take 1 tablet every day by oral route. [facility] Lidocaine Viscous 2 % mucosal solution Lidocaine Viscous 2 % mucosal solution No Lidocaine Viscous 2 % mucosal solution [facility] lisinopril 10 mg tablet Take 1 tablet every day by oral route. lisinopril 10 mg tablet Take 1 tablet every day by oral route. No 1 Q1D lisinopril 10 mg tablet Take 1 tablet every day by oral route. [facility] lithium carbonate ER 450 mg tablet,exte nded release Take 1 tablet every day by oral route. lithium carbonate ER 450 mg tablet,exte nded release Take 1 tablet every day by oral route. No 1 Q1D lithium carbonate ER 450 mg tablet,ext ended release Take 1 tablet every day by oral route. [facility] metformin 1,000 mg tablet Take 1 tablet twice a day by oral route. metformin 1,000 mg tablet Take 1 tablet twice a day by oral route. No 1 BID metformin 1,000 mg tablet Take 1 tablet twice a day by oral route. [facility] metformin 500 mg tablet Take 2 tablets twice a day by oral route. metformin 500 mg tablet Take 2 tablets twice a day by oral route. No 2 BID metformin 500 mg tablet Take 2 tablets twice a day by oral route. [facility] metronidazo le 0.75 % topical gel APPLY [...] PER DAY IN THE MORNING AND EVENING [facility] metronidazo le 500 mg tablet TAKE 4 TABLETS BY MOUTH DIRECTED AT ONCE metronidazo le 500 mg tablet TAKE 4 TABLETS BY MOUTH DIRECTED AT ONCE No metronidaz ole 500 mg tablet TAKE 4 TABLETS BY MOUTH DIRECTED AT ONCE [facility] ondansetron 8 mg disintegrat ing tablet Place 1 tablet twice a day by translingua l route as needed. ondansetron 8 mg disintegrat ing tablet Place 1 tablet twice a day by translingua l route as needed. No ondansetro n 8 mg disintegra ting tablet Place 1 tablet twice a day by translingu al route as needed. [facility] sulfamethox azole 800 mg-trimetho prim 160 mg tablet sulfamethox azole 800 mg-trimetho prim 160 mg tablet No sulfametho xazole 800 mg-trimeth oprim 160 mg tablet [facility] terconazole 0.4 % vaginal cream INSERT 1 APPLICATORF UL VAGINALLY ONCE DAILY FOR 7 DAYS terconazole 0.4 % vaginal cream INSERT 1 APPLICATORF UL VAGINALLY ONCE DAILY FOR 7 DAYS No terconazol e 0.4 % vaginal cream INSERT 1 APPLICATOR FUL VAGINALLY ONCE DAILY FOR 7 DAYS [facility] trazodone 300 mg tablet TAKE 1 TABLET BY MOUTH ONCE DAILY AT BEDTIME trazodone 300 mg tablet TAKE 1 TABLET BY MOUTH ONCE DAILY AT BEDTIME No trazodone 300 mg tablet TAKE 1 TABLET BY MOUTH ONCE DAILY AT BEDTIME [facility] Ventolin HFA 90 mcg/actuati on aerosol inhaler Inhale 2 puffs every 4-6 hours by inhalation route as needed. Ventolin HFA 90 mcg/actuati on aerosol inhaler Inhale 2 puffs every 4-6 hours by inhalation route as needed. No Ventolin HFA 90 mcg/actuat ion aerosol inhaler Inhale 2 puffs every 4-6 hours by inhalation route as needed. [facility] armodafinil 150 mg tablet Take 1 tablet every day by oral route for 30 days. armodafinil 150 mg tablet Take 1 tablet every day by oral route for 30 days. No armodafini l 150 mg tablet Take 1 tablet every day by oral route for 30 days. [facility] azelaic acid 15 % topical gel [...] BY TOPICAL ROUTE 2 TIMES PER DAY [facility] azithromyci n 500 mg tablet TAKE 1 TABLET BY MOUTH ONCE DAILY azithromyci n 500 mg tablet TAKE 1 TABLET BY MOUTH ONCE DAILY No azithromyc in 500 mg tablet TAKE 1 TABLET BY MOUTH ONCE DAILY [facility] benzonatate 100 mg capsule TAKE 1 CAPSULE BY MOUTH EVERY 4 HOURS NEEDED benzonatate 100 mg capsule TAKE 1 CAPSULE BY MOUTH EVERY 4 HOURS NEEDED No benzonatat e 100 mg capsule TAKE 1 CAPSULE BY MOUTH EVERY 4 HOURS NEEDED [facility] bupropion HCl XL 150 mg 24 hr tablet, extended release bupropion HCl XL 150 mg 24 hr tablet, extended release No bupropion HCl XL 150 mg 24 hr tablet, extended release [facility] Bydureon BCise 2 mg/0.85 mL subcutaneou s auto-inject or Inject 2 mg every week by subcutaneou s route. Bydureon BCise 2 mg/0.85 mL subcutaneou s auto-inject or Inject 2 mg every week by subcutaneou s route. No 2mg Q1W Bydureon BCise 2 mg/0.85 mL subcutaneo us auto-injec tor Inject 2 mg every week by subcutaneo us route. [facility] ceftriaxone 1 gram solution for injection Take 1 g by injection route. ceftriaxone 1 gram solution for injection Take 1 g by injection route. No 1g ceftriaxon e 1 gram solution for injection Take 1 g by injection route. [facility] cephalexin 500 mg capsule cephalexin 500 mg capsule No cephalexin 500 mg capsule [facility] cetirizine 10 mg tablet Take 1 tablet every day by oral route. cetirizine 10 mg tablet Take 1 tablet every day by oral route. No cetirizine 10 mg tablet Take 1 tablet every day by oral route. [facility] ciprofloxac in 500 mg tablet Take 1 tablet every 12 hours by oral route for 7 days. ciprofloxac in 500 mg tablet Take 1 tablet every 12 hours by oral route for 7 days. No ciprofloxa john 500 mg tablet Take 1 tablet every 12 hours by oral route for 7 days. [facility] escitalopra m 10 mg tablet escitalopra m 10 mg tablet No escitalopr am 10 mg tablet [facility] fluconazole 200 mg tablet TAKE 1 TABLET BY MOUTH ONCE DAILY FOR 3 DAYS fluconazole 200 mg tablet TAKE 1 TABLET BY MOUTH ONCE DAILY FOR 3 DAYS No fluconazol e 200 mg tablet TAKE 1 TABLET BY MOUTH ONCE DAILY FOR 3 DAYS [facility] fluticasone propionate 50 mcg/actuati on nasal spray,suspe nsion Cocoa 1 spray every day by intranasal route. fluticasone propionate 50 mcg/actuati on nasal spray,suspe nsion Cocoa 1 spray every day by intranasal route. No fluticason e propionate 50 mcg/actuat ion nasal spray,susp ension Cocoa 1 spray every day by intranasal route. [facility] betamethaso ne 0.5 MG/ML / clotrimazol e 10 MG/ML Topical Cream betamethaso ne 0.5 MG/ML / clotrimazol e 10 MG/ML Topical Cream Yes 1 2xD [facility] l (LUF/LI V/SA) glimepiride 4 mg tablet Take 1 tablet every day by oral route. glimepiride 4 mg tablet Take 1 tablet every day by oral route. No glimepirid e 4 mg tablet Take 1 tablet every day by oral route. [facility] cephalexin 500 mg capsule cephalexin 500 mg capsule Yes 500mg 3xD [facility] (LUF/LI V/SA) Humulin R Regular U-100 Insuln Humulin R Regular U-100 Insuln No Humulin R Regular U-100 Insuln [facility] clotrimazol e 20 MG/ML Vaginal Cream clotrimazol e 20 MG/ML Vaginal Cream Yes 1 [facility] (LUF/LI V/SA) hydroxyzine HCl 25 mg tablet hydroxyzine HCl 25 mg tablet No hydroxyzin e HCl 25 mg tablet [facility] fluconazole 200 MG Oral Tablet fluconazole 200 MG Oral Tablet Yes 200mg 1xD [facility] (LUF/LI V/SA) hyoscyamine 0.125 mg sublingual tablet DISSOLVE 1 TABLET IN MOUTH 4 TIMES DAILY hyoscyamine 0.125 mg sublingual tablet DISSOLVE 1 TABLET IN MOUTH 4 TIMES DAILY No hyoscyamin e 0.125 mg sublingual tablet DISSOLVE 1 TABLET IN MOUTH 4 TIMES DAILY [facility] hydroxyzine hydrochlori de 25 MG Oral Tablet hydroxyzine hydrochlori de 25 MG Oral Tablet Yes 25mg Q7.00H [facility] (LUF/LI V/SA) labetalol 100 mg tablet Take 1 tablet twice a day by oral route. labetalol 100 mg tablet Take 1 tablet twice a day by oral route. No 1 BID labetalol 100 mg tablet Take 1 tablet twice a day by oral route. [facility] ketoconazol e 20 MG/ML Topical Cream ketoconazol e 20 MG/ML Topical Cream Yes 1 2xD [facility] (LUF/LI V/SA) sulfamethox azole 800 MG / trimethopri m 160 MG Oral Tablet sulfamethox azole 800 MG / trimethopri m 160 MG Oral Tablet Yes 1 2xD [facility] (LUF/LI V/SA) Latuda 20 mg tablet Take 1 tablet every day by oral route. Latuda 20 mg tablet Take 1 tablet every day by oral route. No Latuda 20 mg tablet Take 1 tablet every day by oral route. [facility] tramadol hydrochlori de 50 MG Oral Tablet tramadol hydrochlori de 50 MG Oral Tablet Yes 50mg [address]xD [facility] (LUF/LI V/SA) Latuda 40 mg tablet Latuda 40 mg tablet No Latuda 40 mg tablet [facility] betamethaso ne 0.5 MG/ML / clotrimazol [...] 1 tablet every day by oral route. [facility] cephalexin 500 mg capsule cephalexin 500 mg capsule Yes 500mg [address]xD [facility] (LUF/LI V/SA) Lidocaine Viscous 2 % mucosal solution Lidocaine Viscous 2 % mucosal solution No Lidocaine Viscous 2 % mucosal solution [facility] clotrimazol e 20 MG/ML Vaginal Cream clotrimazol e 20 MG/ML Vaginal Cream Yes [address] [facility] (LUF/LI V/SA) fluconazole 200 MG Oral Tablet fluconazole 200 MG Oral Tablet Yes 200mg [address]xD [facility] (LUF/LI V/SA) lisinopril 10 mg tablet Take 1 tablet every day by oral route. lisinopril 10 mg tablet Take 1 tablet every day by oral route. No lisinopril 10 mg tablet Take 1 tablet every day by oral route. [facility] hydroxyzine hydrochlori de 25 MG Oral Tablet [...] 1 tablet every day by oral route. [facility] ketoconazol e 20 MG/ML Topical Cream ketoconazol e 20 MG/ML Topical Cream Yes 1 2xD [facility] (LUF/LI V/SA) metformin 1,000 mg tablet Take 1 tablet twice a day by oral route. metformin 1,000 mg tablet Take 1 tablet twice a day by oral route. No metformin 1,000 mg tablet Take 1 tablet twice a day by oral route. [facility] sulfamethox azole 800 MG / trimethopri m 160 MG Oral Tablet sulfamethox azole 800 MG / trimethopri m 160 MG Oral Tablet Yes 1 2xD [facility] (LUF/LI V/SA) metformin 500 mg tablet Take 2 tablets twice a day by oral route. metformin 500 mg tablet Take 2 tablets twice a day by oral route. No 2 BID metformin 500 mg tablet Take 2 tablets twice a day by oral route. [facility] tramadol hydrochlori de 50 MG Oral Tablet tramadol hydrochlori de 50 MG Oral Tablet Yes 50mg 4xD [facility] (LUF/LI V/SA) metronidazo le 0.75 % [...] IN THE MORNING AND EVENING [facility] betamethaso ne 0.5 MG/ML / clotrimazol e 10 MG/ML Topical Cream betamethaso ne 0.5 MG/ML / clotrimazol e 10 MG/ML Topical Cream Yes 1 2xD topically 2 times per day (for 2 weeks, apply to vulva and perineum) [facility] (LUF/LI V/SA) metronidazo le 500 mg tablet TAKE 4 TABLETS BY MOUTH DIRECTED AT ONCE metronidazo le 500 mg tablet TAKE 4 TABLETS BY MOUTH DIRECTED AT ONCE No metronidaz ole 500 mg tablet TAKE 4 TABLETS BY MOUTH DIRECTED AT ONCE [facility] betamethaso ne 0.5 MG/ML / clotrimazol e 10 MG/ML Topical Cream betamethaso ne 0.5 MG/ML / clotrimazol e 10 MG/ML Topical Cream Yes [address] [facility] (LUF/LI V/SA) ondansetron 4 mg disintegrat ing tablet ondansetron 4 mg disintegrat ing tablet No ondansetro n 4 mg disintegra ting tablet [facility] cephalexin 500 mg capsule cephalexin 500 mg [...] day by translingu al route as needed. [facility] clotrimazol e 20 MG/ML Vaginal Cream clotrimazol e 20 MG/ML Vaginal Cream Yes [address] [facility] (LUF/LI V/SA) sulfamethox azole 800 mg-trimetho prim 160 mg tablet sulfamethox azole 800 mg-trimetho prim 160 mg tablet No sulfametho xazole 800 mg-trimeth oprim 160 mg tablet [facility] fluconazole 200 MG Oral Tablet fluconazole 200 [...] FUL VAGINALLY ONCE DAILY FOR 7 DAYS [facility] hydroxyzine hydrochlori de 25 MG Oral Tablet [...] TABLET BY MOUTH ONCE DAILY AT BEDTIME [facility] sulfamethox azole 800 MG / trimethopri m 160 MG Oral Tablet sulfamethox azole 800 MG / trimethopri m 160 MG Oral Tablet Yes [address] [facility] (LUF/LI V/SA) Ventolin HFA 90 mcg/actuati on aerosol inhaler Inhale 2 puffs every 4-6 hours by inhalation route as needed. Ventolin HFA 90 mcg/actuati on aerosol inhaler Inhale 2 puffs every 4-6 hours by inhalation route as needed. No Ventolin HFA 90 mcg/actuat ion aerosol inhaler Inhale 2 puffs every 4-6 hours by inhalation route as needed. [facility] tramadol hydrochlori de 50 MG Oral Tablet [...] day by oral route for 30 days. [facility] betamethaso ne 0.5 MG/ML / clotrimazol e [...] BY TOPICAL ROUTE 2 TIMES PER DAY [facility] cephalexin 500 mg capsule cephalexin 500 mg capsule Yes 500mg [address]xD [facility] (LUF/LI V/SA) azithromyci n 500 mg tablet TAKE 1 TABLET BY MOUTH ONCE DAILY azithromyci n 500 mg tablet TAKE 1 TABLET BY MOUTH ONCE DAILY No azithromyc in 500 mg tablet TAKE 1 TABLET BY MOUTH ONCE DAILY [facility] clotrimazol e 20 MG/ML Vaginal Cream clotrimazol e 20 MG/ML Vaginal Cream Yes [address] [facility] (LUF/LI V/SA) benzonatate 100 mg capsule TAKE 1 CAPSULE BY MOUTH EVERY 4 HOURS NEEDED benzonatate 100 mg capsule TAKE 1 CAPSULE BY MOUTH EVERY 4 HOURS NEEDED No benzonatat e 100 mg capsule TAKE 1 CAPSULE BY MOUTH EVERY 4 HOURS NEEDED [facility] fluconazole 200 MG Oral Tablet fluconazole 200 [...] mg every week by subcutaneo us route. [facility] hydroxyzine hydrochlori de 25 MG Oral Tablet [...] injection Take 1 g by injection route. [facility] ondansetron 4 mg disintegrat ing tablet ondansetron 4 mg disintegrat ing tablet Yes 4mg [address]xD [facility] (LUF/LI V/SA) cetirizine 10 mg tablet Take 1 tablet every day by oral route. cetirizine 10 mg tablet Take 1 tablet every day by oral route. No cetirizine 10 mg tablet Take 1 tablet every day by oral route. [facility] sulfamethox azole 800 MG / trimethopri m [...] hours by oral route for 7 days. [facility] tramadol hydrochlori de 50 MG Oral Tablet [...] BY MOUTH ONCE DAILY FOR 3 DAYS [facility] cephalexin 500 mg capsule cephalexin 500 mg capsule Yes 500mg [address]xD [facility] (LUF/LI V/SA) fluticasone propionate 50 mcg/actuati on nasal spray,suspe nsion Cocoa 1 spray every day by intranasal route. fluticasone propionate 50 mcg/actuati on nasal spray,suspe nsion Cocoa 1 spray every day by intranasal route. No fluticason e propionate 50 mcg/actuat ion nasal spray,susp ension Cocoa 1 spray every day by intranasal route. [facility] clotrimazol e 20 MG/ML Vaginal Cream clotrimazol e 20 MG/ML Vaginal Cream Yes [address] [facility] (LUF/LI V/SA) glimepiride 4 mg tablet Take 1 tablet every day by oral route. glimepiride 4 mg tablet Take 1 tablet every day by oral route. No 1 Q1D glimepirid e 4 mg tablet Take 1 tablet every day by oral route. [facility] fluconazole 200 MG Oral Tablet fluconazole 200 MG Oral Tablet Yes 200mg [address]xD [facility] (LUF/LI V/SA) Humulin R Regular U-100 Insuln Humulin R Regular U-100 Insuln No Humulin R Regular U-100 Insuln [facility] hydroxyzine hydrochlori de 25 MG Oral Tablet hydroxyzine hydrochlori de 25 MG Oral Tablet Yes 25mg Q7.00H [facility] (LUF/LI V/SA) hyoscyamine 0.125 mg sublingual tablet DISSOLVE 1 TABLET IN MOUTH 4 TIMES DAILY hyoscyamine 0.125 mg sublingual tablet DISSOLVE 1 TABLET IN MOUTH 4 TIMES DAILY No hyoscyamin e 0.125 mg sublingual tablet DISSOLVE 1 TABLET IN MOUTH 4 TIMES DAILY [facility] ketoconazol e 20 MG/ML Topical Cream ketoconazol e 20 MG/ML Topical Cream Yes 1 2xD [facility] (LUF/LI V/SA) Latuda 20 mg tablet Take 1 tablet every day by oral route. Latuda 20 mg tablet Take 1 tablet every day by oral route. No Latuda 20 mg tablet Take 1 tablet every day by oral route. [facility] ondansetron 4 mg disintegrat ing tablet ondansetron 4 mg disintegrat ing tablet Yes 4mg 3xD [facility] (LUF/LI V/SA) Latuda 60 mg tablet Take 1 tablet every day by oral route. Latuda 60 mg tablet Take 1 tablet every day by oral route. No 1 Q1D Latuda 60 mg tablet Take 1 tablet every day by oral route. [facility] sulfamethox azole 800 MG / trimethopri m 160 MG Oral Tablet sulfamethox azole 800 MG / trimethopri m 160 MG Oral Tablet Yes 1 2xD [facility] (LUF/LI V/SA) Lidocaine Viscous 2 % mucosal solution Lidocaine Viscous 2 % mucosal solution No Lidocaine Viscous 2 % mucosal solution [facility] tramadol hydrochlori de 50 MG Oral Tablet tramadol hydrochlori de 50 MG Oral Tablet Yes 50mg 4xD [facility] (LUF/LI V/SA) lithium carbonate ER 450 mg tablet,exte nded release Take 1 tablet every day by oral route. lithium carbonate ER 450 mg tablet,exte nded release Take 1 tablet every day by oral route. No 1 Q1D lithium carbonate ER 450 mg tablet,ext ended release Take 1 tablet every day by oral route. [facility] betamethaso ne 0.5 MG/ML / clotrimazol e 10 MG/ML Topical Cream betamethaso ne 0.5 MG/ML / clotrimazol e 10 MG/ML Topical Cream Yes 1 [facility] metformin 500 mg tablet Take 2 tablets twice a day by oral route. metformin 500 mg tablet Take 2 tablets twice a day by oral route. No 2 BID metformin 500 mg tablet Take 2 tablets twice a day by oral route. [facility] cephalexin 500 mg capsule cephalexin 500 mg capsule Yes 500mg [facility]xD [facility] ([facility]) metronidazo le 0.75 [...] PER DAY IN THE MORNING AND EVENING [facility] clotrimazol e 20 MG/ML Vaginal Cream clotrimazol e 20 MG/ML Vaginal Cream Yes 1 [facility] (LUF/LI V/SA) metronidazo le 500 mg tablet TAKE 4 TABLETS BY MOUTH DIRECTED AT ONCE metronidazo le 500 mg tablet TAKE 4 TABLETS BY MOUTH DIRECTED AT ONCE No metronidaz ole 500 mg tablet TAKE 4 TABLETS BY MOUTH DIRECTED AT ONCE [facility] fluconazole 200 MG Oral Tablet fluconazole 200 MG Oral Tablet Yes 200mg 1xD [facility] (LUF/LI V/SA) ondansetron 8 mg disintegrat ing tablet Place 1 tablet twice a day by translingua l route as needed. ondansetron 8 mg disintegrat ing tablet Place 1 tablet twice a day by translingua l route as needed. No ondansetro n 8 mg disintegra ting tablet Place 1 tablet twice a day by translingu al route as needed. [facility] hydroxyzine hydrochlori de 25 MG Oral Tablet hydroxyzine hydrochlori de 25 MG Oral Tablet Yes 25mg Q7.00H [facility] (LUF/LI V/SA) terconazole 0.4 % vaginal cream INSERT 1 APPLICATORF UL VAGINALLY ONCE DAILY FOR 7 DAYS terconazole 0.4 % vaginal cream INSERT 1 APPLICATORF UL VAGINALLY ONCE DAILY FOR 7 DAYS No terconazol e 0.4 % vaginal cream INSERT 1 APPLICATOR FUL VAGINALLY ONCE DAILY FOR 7 DAYS [facility] ketoconazol e 20 MG/ML Topical Cream ketoconazol [...] TABLET BY MOUTH ONCE DAILY AT BEDTIME [facility] sulfamethox azole 800 MG / trimethopri m [...] 500 UNT/ML Injectable Solution Yes .8 1xD [facility] (LUF/LI V/SA) ketoconazol e 20 MG/ML Topical Cream ketoconazol e 20 MG/ML Topical Cream Yes 1 2xD [facility] (LUF/LI V/SA) ondansetron 4 mg disintegrat ing tablet ondansetron 4 mg disintegrat ing tablet Yes 4mg 3xD [facility] sulfamethox azole 800 MG / trimethopri m 160 MG Oral Tablet sulfamethox azole 800 MG / trimethopri m 160 MG Oral Tablet Yes [address] [facility] tramadol hydrochlori de 50 MG Oral Tablet tramadol hydrochlori de 50 MG Oral Tablet Yes 50mg 4xD [facility] betamethaso ne 0.5 MG/ML / clotrimazol e 10 MG/ML Topical Cream betamethaso ne 0.5 MG/ML / clotrimazol e 10 MG/ML Topical Cream Yes [address] [facility] cephalexin 500 mg capsule cephalexin 500 mg capsule Yes 500mg 3xD [facility]) clotrimazol e 20 MG/ML Vaginal Cream clotrimazol e 20 MG/ML Vaginal Cream Yes 1 [facility] fluconazole 200 MG Oral Tablet fluconazole 200 MG Oral Tablet Yes 200mg 1xD [facility] hydroxyzine hydrochlori de 25 MG Oral Tablet hydroxyzine hydrochlori de 25 MG Oral Tablet Yes 25mg Q7.00H [facility] insulin, regular, human 500 UNT/ML Injectable Solution insulin, regular, human 500 UNT/ML Injectable Solution Yes .8 1xD [facility] (LUF/LI V/SA) ketoconazol e 20 MG/ML Topical Cream ketoconazol e 20 MG/ML Topical Cream Yes 1 2xD [facility] (LUF/LI V/SA) ondansetron 4 mg [...] mg capsule Yes 500mg [address]xD [facility] (LUF/LI V/) clotrimazol e 20 MG/ML Vaginal Cream clotrimazol e 20 MG/ML Vaginal Cream Yes [address] [facility] ([facility]/LI V/SA) fluconazole 200 MG Oral Tablet fluconazole 200 MG Oral Tablet Yes 200mg [address] [facility] (LUF/LI V/) hydroxyzine hydrochlori de 25 MG Oral Tablet hydroxyzine hydrochlori de 25 MG Oral Tablet Yes 25mg Q7.00H [facility] (LUF/LI V/SA) insulin, regular, human [...] Topical Cream Yes [address] [facility] (LUF/LI V/SA) sulfamethox azole 800 MG / trimethopri m 160 MG Oral Tablet sulfamethox azole 800 MG / trimethopri m 160 MG Oral Tablet Yes [address] [facility] tramadol hydrochlori de 50 MG Oral Tablet tramadol hydrochlori de 50 MG Oral Tablet Yes 50mg 4xD [facility] sulfamethox azole 800 MG / trimethopri m 160 MG Oral Tablet sulfamethox azole 800 MG / trimethopri m 160 MG Oral Tablet Yes [address] [facility] betamethaso ne 0.5 MG/ML / clotrimazol e 10 MG/ML Topical Cream betamethaso ne 0.5 MG/ML / clotrimazol e 10 MG/ML Topical Cream Yes [address] [facility]) cephalexin 500 mg capsule cephalexin 500 mg capsule Yes 500mg 3xD [facility]) clotrimazol e 20 MG/ML Vaginal Cream clotrimazol e 20 MG/ML Vaginal Cream Yes 1 [facility] fluconazole 200 MG Oral Tablet fluconazole 200 MG Oral Tablet Yes 200mg 1xD [facility] hydroxyzine hydrochlori de 25 MG Oral Tablet hydroxyzine hydrochlori de 25 MG Oral Tablet Yes 25mg Q7.00H [facility] (LUF/LI V/SA) insulin, regular, human 500 UNT/ML Injectable Solution insulin, regular, human 500 UNT/ML Injectable Solution Yes .[address] [facility]) ketoconazol e 20 MG/ML Topical Cream ketoconazol e 20 MG/ML Topical Cream Yes 1 2xD [facility] (LUF/LI V/SA) metronidazo le 0.013 [...] mg disintegrat ing tablet Yes 4mg 3xD [facility] (LUF/LI V/SA) sulfamethox azole 800 MG / trimethopri m 160 MG Oral Tablet sulfamethox azole 800 MG / trimethopri m 160 MG Oral Tablet Yes 1 2xD [facility] (LUF/LI V/SA) tramadol hydrochlori de 50 MG Oral Tablet tramadol hydrochlori de 50 MG Oral Tablet Yes 50mg 4xD [facility] betamethaso ne 0.5 MG/ML / clotrimazol e 10 MG/ML Topical Cream betamethaso ne 0.5 MG/ML / clotrimazol e 10 MG/ML Topical Cream Yes [address] [facility]) cephalexin 500 mg capsule cephalexin 500 mg capsule Yes 500mg 3xD [facility]) clotrimazol e 20 MG/ML Vaginal Cream clotrimazol e 20 MG/ML Vaginal Cream Yes [address] [facility] fluconazole 200 MG Oral Tablet fluconazole 200 MG Oral Tablet Yes 200mg 1xD [facility] hydroxyzine hydrochlori de 25 MG Oral Tablet hydroxyzine hydrochlori de 25 MG Oral Tablet Yes 25mg Q7.00H [facility] insulin, regular, human 500 UNT/ML Injectable Solution insulin, regular, human 500 UNT/ML Injectable Solution Yes .[address] [facility] (LUF/LI V/SA) ketoconazol e 20 MG/ML Topical Cream ketoconazol e 20 MG/ML Topical Cream Yes [address] [facility] (LUF/LI V/SA) metronidazo le 0.013 MG/MG Vaginal Gel metronidazo le 0.013 MG/MG Vaginal Gel Yes [address] [facility] (LUF/LI V/SA) ondansetron 4 mg [...] 2xD [facility] (LUF/LI V[facility] tramadol hydrochlori de 50 MG Oral Tablet tramadol hydrochlori de 50 MG Oral Tablet Yes 50mg [address]xD [facility] (LUF/LI V/SA) betamethaso ne 0.5 MG/ML / clotrimazol e 10 MG/ML Topical Cream betamethaso ne 0.5 MG/ML / clotrimazol e 10 MG/ML Topical Cream Yes [address] [facility] (LUF/LI V/SA) cephalexin 500 mg capsule cephalexin 500 mg capsule Yes 500mg [address] clotrimazol e 20 MG/ML Vaginal Cream clotrimazol e 20 MG/ML Vaginal Cream Yes [address] [facility] (LUF/LI V/) fluconazole 200 MG Oral Tablet fluconazole 200 MG Oral Tablet Yes 200mg [address]xD [facility] (LUF/LI V/SA) hydroxyzine hydrochlori de 25 MG Oral Tablet hydroxyzine hydrochlori de 25 MG Oral Tablet Yes 25mg Q7.00H [facility] insulin, regular, human 500 UNT/ML Injectable Solution insulin, regular, human 500 UNT/ML Injectable Solution Yes .[address] [facility] (LUF/LI V/) ketoconazol e 20 MG/ML Topical Cream ketoconazol e 20 MG/ML Topical Cream Yes [address] [facility] (LUF/LI V/SA) metronidazo le 0.013 MG/MG Vaginal Gel metronidazo le 0.013 MG/MG Vaginal Gel Yes [address] [facility] (LUF/LI V/SA) ondansetron 4 mg disintegrat ing tablet ondansetron 4 mg disintegrat ing tablet Yes 4mg [address]xD [facility] (LUF/LI V/SA) sulfamethox azole 800 [...] MG/MG Vaginal Gel Yes [address] [facility] (LUF/LI V/SA) ondansetron 4 mg [...] MG/MG Medicated Patch Yes [address] [facility] (LUF/LI V/SA) metronidazo le 0.013 MG/MG Vaginal Gel metronidazo le 0.013 MG/MG Vaginal Gel Yes [address] [facility] (LUF/LI V/SA) ondansetron 4 mg disintegrat ing tablet ondansetron 4 mg disintegrat ing tablet Yes 4mg [address]xD [facility] (LUF/LI V/SA) sulfamethox azole 800 MG / trimethopri m 160 MG Oral Tablet sulfamethox azole 800 MG / trimethopri m 160 MG Oral Tablet Yes [address] [facility] (LUF/LI V/SA) tramadol hydrochlori de 50 MG Oral Tablet tramadol hydrochlori de 50 MG Oral Tablet Yes 50mg [address]xD [facility] (LUF/LI V/SA) hydroxyzine hydrochlori de 25 MG Oral Tablet hydroxyzine hydrochlori de 25 MG Oral Tablet Yes 25mg Q7.00H [facility] (LUF/LI V/SA) ketoconazol e 20 MG/ML Topical Cream ketoconazol e 20 MG/ML Topical Cream Yes [address] [facility] (LUF/LI V/SA) sulfamethox azole 800 MG / trimethopri m 160 MG Oral Tablet sulfamethox azole 800 MG / trimethopri m 160 MG Oral Tablet Yes [address] [facility] (LUF/LI V/SA) tramadol hydrochlori de 50 MG Oral Tablet tramadol hydrochlori de 50 MG Oral Tablet Yes 50mg [address]xD [facility] (LUF/LI V/SA) amLODIPine Besylate 10 MG amLODIPine Besylate 10 MG No 1{table t} QD amLODIPine Besylate 10 MG Zoloft 100 MG Zoloft 100 MG No 1{table t} QD Zoloft 100 MG Losartan Potassium 50 MG Losartan Potassium 50 MG No 1{table t} QD Losartan Potassium 50 MG metFORMIN HCl 500 MG metFORMIN HCl 500 MG No 1{table t_with_ a_meal} BID metFORMIN HCl 500 MG armodafinil 150 mg tablet TAKE 1 TABLET BY MOUTH ONCE DAILY FOR 30 DAYS armodafinil 150 mg tablet TAKE 1 TABLET BY MOUTH ONCE DAILY FOR 30 DAYS No armodafini l 150 mg tablet TAKE 1 TABLET BY MOUTH ONCE DAILY FOR 30 DAYS [facility] azithromyci n 500 mg tablet TAKE 1 TABLET BY MOUTH ONCE DAILY azithromyci n 500 mg tablet TAKE 1 TABLET BY MOUTH ONCE DAILY No azithromyc in 500 mg tablet TAKE 1 TABLET BY MOUTH ONCE DAILY [facility] benzonatate 100 mg capsule TAKE 1 CAPSULE BY MOUTH EVERY 4 HOURS NEEDED benzonatate 100 mg capsule TAKE 1 CAPSULE BY MOUTH EVERY 4 HOURS NEEDED No benzonatat e 100 mg capsule TAKE 1 CAPSULE BY MOUTH EVERY 4 HOURS NEEDED [facility] Bydureon BCise 2 mg/0.85 mL subcutaneou s auto-inject or Inject 2 mg every week by subcutaneou s route. Bydureon BCise 2 mg/0.85 mL subcutaneou s auto-inject or Inject 2 mg every week by subcutaneou s route. No 2mg Q1W Bydureon BCise 2 mg/0.85 mL subcutaneo us auto-injec tor Inject 2 mg every week by subcutaneo us route. [facility] glimepiride 4 mg tablet Take 1 tablet every day by oral route. glimepiride 4 mg tablet Take 1 tablet every day by oral route. No 1 Q1D glimepirid e 4 mg tablet Take 1 tablet every day by oral route. [facility] Humulin R Regular U-100 Insuln Humulin R Regular U-100 Insuln No Humulin R Regular U-100 Insuln [facility] Latuda 60 mg tablet Take 1 tablet every day by oral route. Latuda 60 mg tablet Take 1 tablet every day by oral route. No 1 Q1D Latuda 60 mg tablet Take 1 tablet every day by oral route. [facility] lithium carbonate ER 450 mg tablet,exte nded release Take 1 tablet every day by oral route. lithium carbonate ER 450 mg tablet,exte nded release Take 1 tablet every day by oral route. No 1 Q1D lithium carbonate ER 450 mg tablet,ext ended release Take 1 tablet every day by oral route. [facility] metformin 500 mg tablet Take 2 tablets twice a day by oral route. metformin 500 mg tablet Take 2 tablets twice a day by oral route. No 2 BID metformin 500 mg tablet Take 2 tablets twice a day by oral route. [facility] trazodone 100 mg tablet trazodone 100 mg tablet No trazodone 100 mg tablet [facility] trazodone 300 mg tablet Take 1 tablet every day by oral route at bedtime. trazodone 300 mg tablet Take 1 tablet every day by oral route at bedtime. No 1 Q1D trazodone 300 mg tablet Take 1 tablet every day by oral route at bedtime. [facility] armodafinil 150 mg tablet TAKE 1 TABLET BY MOUTH ONCE DAILY FOR 30 DAYS armodafinil 150 mg tablet TAKE 1 TABLET BY MOUTH ONCE DAILY FOR 30 DAYS No armodafini l 150 mg tablet TAKE 1 TABLET BY MOUTH ONCE DAILY FOR 30 DAYS [facility] azithromyci n 500 mg tablet TAKE 1 TABLET BY MOUTH ONCE DAILY azithromyci n 500 mg tablet TAKE 1 TABLET BY MOUTH ONCE DAILY No azithromyc in 500 mg tablet TAKE 1 TABLET BY MOUTH ONCE DAILY [facility] benzonatate 100 mg capsule TAKE 1 CAPSULE BY MOUTH EVERY 4 HOURS NEEDED benzonatate 100 mg capsule TAKE 1 CAPSULE BY MOUTH EVERY 4 HOURS NEEDED No benzonatat e 100 mg capsule TAKE 1 CAPSULE BY MOUTH EVERY 4 HOURS NEEDED [facility] Bydureon BCise 2 mg/0.85 mL subcutaneou s auto-inject or Inject 2 mg every week by subcutaneou s route. Bydureon BCise 2 mg/0.85 mL subcutaneou s auto-inject or Inject 2 mg every week by subcutaneou s route. No 2mg Q1W Bydureon BCise 2 mg/0.85 mL subcutaneo us auto-injec tor Inject 2 mg every week by subcutaneo us route. [facility] ceftriaxone 1 gram solution for injection Take 1 g by injection route. ceftriaxone 1 gram solution for injection Take 1 g by injection route. No 1g ceftriaxon e 1 gram solution for injection Take 1 g by injection route. [facility] Diflucan 150 mg tablet Take 1 tablet every day by oral route for 7 days. Diflucan 150 mg tablet Take 1 tablet every day by oral route for 7 days. No 1 Q1D Diflucan 150 mg tablet Take 1 tablet every day by oral route for 7 days. [facility] glimepiride 4 mg tablet Take 1 tablet every day by oral route. glimepiride 4 mg tablet Take 1 tablet every day by oral route. No 1 Q1D glimepirid e 4 mg tablet Take 1 tablet every day by oral route. [facility] Humulin R Regular U-100 Insuln Humulin R Regular U-100 Insuln No Humulin R Regular U-100 Insuln [facility] Latuda 60 mg tablet Take 1 tablet every day by oral route. Latuda 60 mg tablet Take 1 tablet every day by oral route. No 1 Q1D Latuda 60 mg tablet Take 1 tablet every day by oral route. [facility] Vital Signs Vital Name Observation Time Observation Value Comments S steve Systolic blood pressure 2024-05-09 21:32:00 142 mm[Hg] [facility] Diastolic blood pressure 2024-05-09 21:32:00 84 mm[Hg] [facility] Heart rate 2024-05-09 21:24:00 107 /min [facility] Body temperature 2024-05-09 21:24:00 36.67 [facility] Respiratory rate 2024-05-09 21:24:00 19 /min [facility] Body weight 2024-05-09 21:24:00 100.245 kg [facility] BMI 2024-05-09 21:24:00 43.16 kg/m2 [facility] Systolic blood pressure 2024-04-24 14:13:00 150 mm[Hg] manual [facility] Diastolic blood pressure 2024-04-24 14:13:00 100 mm[Hg] manual [facility] Heart rate 2024-04-24 14:10:00 106 /min [facility] Body temperature 2024-04-24 14:10:00 36.33 [facility] Respiratory rate 2024-04-24 14:10:00 18 /min [facility] Body height 2024-04-24 14:10:00 152.4 cm [facility] Body weight 2024-04-24 14:10:00 96.752 kg [facility] BMI 2024-04-24 14:10:00 41.66 kg/m2 [facility] Systolic blood pressure 2024-02-03 16:45:00 120 mm[Hg] [facility] Diastolic blood pressure 2024-02-03 16:45:00 85 mm[Hg] [facility] Heart rate 2024-02-03 16:45:00 76 /min [facility] Body temperature 2024-02-03 16:45:00 36.67 [facility] Body height 2024-02-03 16:45:00 152.4 cm [facility] Body weight 2024-02-03 16:45:00 97.433 kg [facility] BMI 2024-02-03 16:45:00 41.95 kg/m2 [facility] Oxygen saturation in Arterial blood by Pulse oximetry 2024-02-03 16:45:00 96 /min [facility] Systolic blood pressure 2024-01-17 19:47:00 132 mm[Hg] [facility] Diastolic blood pressure 2024-01-17 19:47:00 91 mm[Hg] [facility] Heart rate 2024-01-17 19:47:00 96 /min [facility] Respiratory rate 2024-01-17 19:47:00 18 /min [facility] Body height 2024-01-17 19:47:00 152.4 cm [facility] Body weight 2024-01-17 19:47:00 99.428 kg [facility] BMI 2024-01-17 19:47:00 42.81 kg/m2 [facility] height 2023-11-09 10:40:00 60 [in_i] Commo n [facility] weight 2023-11-09 10:40:00 212.8 [lb_av] Co mmon [facility] temperature 2023-11-09 10:40:00 97.7 [degF] Com mon [facility] bmi 2023-11-09 10:40:00 41.56 kg/m2 Comm on [facility] oximetry 2023-11-09 10:40:00 97 % Commo n [facility] respiratory rate 2023-11-09 10:40:00 16 /min Common [facility] blood pressure systolic 2023-11-09 10:40:00 138 mm[Hg] [facility] blood pressure diastolic 2023-11-09 10:40:00 88 mm[Hg] [facility] Systolic blood pressure 2023-10-28 18:43:00 129 mm[Hg] [facility] Diastolic blood pressure 2023-10-28 18:43:00 92 mm[Hg] [facility] Heart rate 2023-10-28 18:43:00 101 /min [facility] Body height 2023-10-28 18:43:00 152.4 cm [facility] Body weight 2023-10-28 18:43:00 97.886 kg [facility] BMI 2023-10-28 18:43:00 42.15 kg/m2 [facility] height 2023-10-04 15:00:00 60 [in_i] Commo n [facility] weight 2023-10-04 15:00:00 215.0 [lb_av] Co mmon [facility] temperature 2023-10-04 15:00:00 97.2 [degF] Com mon [facility] bmi 2023-10-04 15:00:00 41.98 kg/m2 Comm on [facility] oximetry 2023-10-04 15:00:00 99 % Commo n [facility] respiratory rate 2023-10-04 15:00:00 16 /min Common [facility] blood pressure systolic 2023-10-04 15:00:00 148 mm[Hg] [facility] blood pressure diastolic 2023-10-04 15:00:00 88 mm[Hg] [facility] Systolic blood pressure 2023-09-05 19:43:00 128 mm[Hg] [facility] Diastolic blood pressure 2023-09-05 19:43:00 76 mm[Hg] [facility] Heart rate 2023-09-05 19:43:00 80 /min [facility] 2023-09-05 19:43:00 15 /min [facility] Body height 2023-09-05 19:43:00 152.4 cm [facility] Body weight 2023-09-05 19:43:00 99.338 kg Univ [facility] BMI 2023-09-05 19:43:00 42.77 kg/m2 [facility] Systolic blood pressure 2023-08-17 15:53:00 143 mm[Hg] [facility] Diastolic blood pressure 2023-08-17 15:53:00 86 mm[Hg] [facility] Heart rate 2023-08-17 15:52:00 84 /min [facility] 2023-08-17 15:52:00 18 /min [facility] Body height 2023-08-17 15:52:00 152.4 cm [facility] Body weight 2023-08-17 15:52:00 99.338 kg [facility] BMI 2023-08-17 15:52:00 42.77 kg/m2 [facility] Systolic blood pressure 2023-08-15 18:48:00 130 mm[Hg] [facility] Diastolic blood pressure 2023-08-15 18:48:00 87 mm[Hg] [facility] Heart rate 2023-08-15 18:48:00 96 /min [facility] Respiratory rate 2023-08-15 18:48:00 18 /min [facility] Body height 2023-08-15 18:48:00 152.4 cm [facility] Body weight 2023-08-15 18:48:00 97.977 kg Univ [facility] BMI 2023-08-15 18:48:00 42.18 kg/m2 [facility] Height 2023-07-17 18:52:00 165.1 CM Weight 2023-07-17 [...] Medical Body Temperature 2023-07-17 23:31:00 98.1 [degF] [facility] (LUF/DANA/SA) Heart Rate 2023-07-17 23:31:00 92 /min [facility] (F/DANA/SA) Respiratory Rate 2023-07-17 23:31:00 19 /min [facility] (LUF/DANA/SA) O2% BldC Oximetry 2023-07-17 23:31:00 96 % [facility] (LUF/DANA/SA) BP Systolic 2023-07-17 23:31:00 144 mm[Hg] [facility] (LUF/DANA/SA) BP Diastolic 2023-07-17 23:31:00 95 mm[Hg] [facility] (LUF/DANA/SA) Pulse Rate 2023-07-17 22:40:00 98 /min [facility] (LUF/DANA/SA) Height 2023-07-17 18:52:00 65 [in_i] [facility] (LUF/DANA/SA) Weight 2023-07-17 18:52:00 99.8 kg [facility] (LUF/DANA/SA) BMI (Body Mass Index) 2023-07-17 18:52:00 36.6 kg/m2 [facility] (LUF/DANA/SA) Pulse Rate 2022-10-02 23:10:00 98 /min [facility] (LUF/DANA/SA) O2% BldC Oximetry 2022-10-02 23:10:00 98 % [facility] (LUF/DANA/SA) BP Systolic 2022-10-02 23:10:00 125 mm[Hg] [facility] (LUF/DANA/SA) BP Diastolic 2022-10-02 23:10:00 84 mm[Hg] [facility] (LUF/DANA/SA) Body Temperature 2022-10-02 22:15:00 98.3 [degF] [facility] (LUF/DANA/SA) Respiratory Rate 2022-10-02 22:15:00 17 /min [facility] (LUF/DANA/SA) Height 2022-10-02 22:15:00 61 [in_i] [facility] (LUF/DANA/SA) Weight 2022-10-02 22:15:00 236 [lb_av] [facility] (LUF/DANA/SA) BMI (Body Mass Index) 2022-10-02 22:15:00 45.1 kg/m2 [facility] (LUF/DANA/SA) Body Temperature 2022-08-08 17:47:00 98 [degF] [facility] (LUF/DANA/SA) Pulse Rate 2022-08-08 17:47:00 103 /min [facility] (LUF/DANA/SA) Respiratory Rate 2022-08-08 17:47:00 20 /min [facility] (LUF/DANA/SA) O2% BldC Oximetry 2022-08-08 17:47:00 96 % [facility] (LUF/DANA/SA) BP Systolic 2022-08-08 17:47:00 118 mm[Hg] [facility] (LUF/DANA/SA) BP Diastolic 2022-08-08 17:47:00 81 mm[Hg] [facility] (LUF/DANA/SA) Height 2022-08-08 17:47:00 58 [in_i] [facility] (LUF/DANA/SA) Weight 2022-08-08 17:47:00 104.3 kg [facility] (LUF/DANA/SA) BMI (Body Mass Index) 2022-08-08 17:47:00 48.2 kg/m2 [facility] (LUF/DANA/SA) Body Temperature 2022-07-22 21:45:00 99 [degF] [facility] (LUF/DANA/SA) Pulse Rate 2022-07-22 21:45:00 96 /min [facility] S [facility] (LUF/DANA/SA) Respiratory Rate 2022-07-22 21:45:00 19 /min [facility] (LUF/DANA/SA) O2% BldC Oximetry 2022-07-22 21:45:00 99 % [facility] (LUF/DANA/SA) BP Systolic 2022-07-22 21:45:00 140 mm[Hg] [facility] (LUF/DANA/SA) BP Diastolic 2022-07-22 21:45:00 85 mm[Hg] [facility] (LUF/DANA/SA) Height 2022-07-22 21:45:00 58 [in_i] [facility] (LUF/DANA/SA) Weight 2022-07-22 21:45:00 99.8 kg [facility] (LUF/DANA/SA) BMI (Body Mass Index) 2022-07-22 21:45:00 46.1 kg/m2 [facility] (LUF/DANA/SA) Pulse Rate 2022-07-20 20:57:00 92 /min [facility] (LUF/DANA/SA) O2% BldC Oximetry 2022-07-20 20:57:00 99 % [facility] (LUF/DANA/SA) BP Systolic 2022-07-20 20:56:00 133 mm[Hg] [facility] (LUF/DANA/SA) BP Diastolic 2022-07-20 20:56:00 81 mm[Hg] [facility] (LUF/DANA/SA) Body Temperature 2022-07-20 17:59:00 98 [degF] [facility] (LUF/DANA/SA) Respiratory Rate 2022-07-20 17:59:00 18 /min [facility] (LUF/DANA/SA) Height 2022-07-20 17:59:00 58 [in_i] [facility] (LUF/DANA/SA) Weight 2022-07-20 17:59:00 99.8 kg [facility] (LUF/DANA/SA) BMI (Body Mass Index) 2022-07-20 17:59:00 46.1 kg/m2 [facility] (LUF/DANA/SA) Pulse Rate 2022-06-21 20:01:00 86 /min [facility] (LUF/DANA/SA) Respiratory Rate 2022-06-21 20:01:00 18 /min [facility] (LUF/DANA/SA) O2% BldC Oximetry 2022-06-21 20:01:00 97 % [facility] (LUF/DANA/SA) BP Systolic 2022-06-21 20:01:00 128 mm[Hg] [facility] (LUF/DANA/SA) BP Diastolic 2022-06-21 20:01:00 92 mm[Hg] [facility] (LUF/DANA/SA) Body Temperature 2022-06-21 17:39:00 98.2 [degF] [facility] (LUF/DANA/SA) Height 2022-06-21 17:39:00 58 [in_i] [facility] (LUF/DANA/SA) Weight 2022-06-21 17:39:00 98.6 kg [facility] (LUF/DANA/SA) BMI (Body Mass Index) 2022-06-21 17:39:00 45.6 kg/m2 [facility] (LUF/DANA/SA) Pulse Rate 2022-06-14 16:31:00 92 /min [facility] (LUF/DANA/SA) O2% BldC Oximetry 2022-06-14 16:31:00 98 % [facility] (LUF/DANA/SA) BP Systolic 2022-06-14 16:31:00 118 mm[Hg] [facility] (LUF/DANA/SA) BP Diastolic 2022-06-14 16:31:00 83 mm[Hg] [facility] (LUF/DANA/SA) Body Temperature 2022-06-14 12:48:00 98.6 [degF] [facility] (LUF/DANA/SA) Respiratory Rate 2022-06-14 12:48:00 18 /min [facility] (LUF/DANA/SA) Height 2022-06-14 12:48:00 59 [in_i] [facility] (LUF/DANA/SA) Weight 2022-06-14 12:48:00 99.8 kg [facility] (LUF/DANA/SA) BMI (Body Mass Index) 2022-06-14 12:48:00 44.9 kg/m2 [facility] (LUF/DANA/SA) Pulse Rate 2022-05-26 16:08:00 89 /min [facility] (LUF/DANA/SA) O2% BldC Oximetry 2022-05-26 16:08:00 98 % [facility] (LUF/DANA/SA) BP Systolic 2022-05-26 16:08:00 159 mm[Hg] [facility] (LUF/DANA/SA) BP Diastolic 2022-05-26 16:08:00 92 mm[Hg] [facility] (LUF/DANA/SA) Heart Rate 2022-05-26 15:02:00 84 /min [facility] (LUF/DANA/SA) Respiratory Rate 2022-05-26 15:02:00 15 /min [facility] (LUF/DANA/SA) Body Temperature 2022-05-26 12:39:00 97.8 [degF] [facility] (LUF/DANA/SA) Height 2022-05-26 12:39:00 59 [in_i] [facility] (LUF/DANA/SA) Weight 2022-05-26 12:39:00 102.1 kg [facility] (LUF/DANA/SA) BMI (Body Mass Index) 2022-05-26 12:39:00 45.9 kg/m2 [facility] (LUF/DANA/SA) Pulse Rate 2022-03-27 15:35:00 69 /min [facility] (F/DANA/SA) O2% BldC Oximetry 2022-03-27 15:35:00 99 % [facility] (LUF/DANA/SA) BP Systolic 2022-03-27 15:35:00 128 mm[Hg] [facility] (LUF/DANA/SA) BP Diastolic 2022-03-27 15:35:00 84 mm[Hg] [facility] (LUF/DANA/SA) Body Temperature 2022-03-27 11:56:00 97.5 [degF] [facility] (LUF/DANA/SA) Respiratory Rate 2022-03-27 11:56:00 16 /min [facility] (LUF/DANA/SA) Height 2022-03-27 11:56:00 59 [in_i] [facility] (LUF/DANA/SA) Weight 2022-03-27 11:56:00 218 [lb_av] [facility] (LUF/DANA/SA) BMI (Body Mass Index) 2022-03-27 11:56:00 44.5 kg/m2 [facility] (LUF/DANA/SA) Body Temperature 2022-03-15 14:25:00 97.8 [degF] [facility] (LUF/DANA/SA) Pulse Rate 2022-03-15 14:25:00 98 /min [facility] (LUF/DAAN/SA) Respiratory Rate 2022-03-15 14:25:00 18 /min [facility] (F/DANA/SA) O2% BldC Oximetry 2022-03-15 14:25:00 97 % [facility] (F/DANA/SA) BP Systolic 2022-03-15 14:25:00 154 mm[Hg] [facility] (LUF/DANA/SA) BP Diastolic 2022-03-15 14:25:00 109 mm[Hg] [facility] (F/DANA/SA) Height 2022-03-15 14:25:00 59 [in_i] [facility] (F/DANA/SA) Weight 2022-03-15 14:25:00 230 [lb_av] [facility] (F/DANA/SA) BMI (Body Mass Index) 2022-03-15 14:25:00 46.9 kg/m2 [facility] (F/DANA/SA) Pulse Rate 2022-01-02 00:33:00 87 /min [facility] (F/DANA/SA) Respiratory Rate 2022-01-02 00:33:00 17 /min [facility] (F/DANA/SA) O2% BldC Oximetry 2022-01-02 00:33:00 98 % [facility] (F/DANA/SA) BP Systolic 2022-01-02 00:33:00 130 mm[Hg] [facility] (LUF/DANA/SA) BP Diastolic 2022-01-02 00:33:00 84 mm[Hg] [facility] (F/DANA/SA) Body Temperature 2022-01-01 22:45:00 97.4 [degF] [facility] (LUF/DANA/SA) Height 2022-01-01 22:45:00 60 [in_i] [facility] (LUF/DANA/SA) Weight 2022-01-01 22:45:00 104.3 kg [facility] (LUF/DANA/SA) BMI (Body Mass Index) 2022-01-01 22:45:00 45.1 kg/m2 [facility] (LUF/DANA/SA) Procedures Procedure Date / Time Performed Performing Clinicia n Source POCT HEMOGLOBIN A1C TEST 2024-02-03 17:01:00 Helen Truong [facility] POCT URINALYSIS W/O SPECIFIC GRAVITY 2024-01-17 20:17:00 Trini Crenshaw [facility] POCT TEST 2023-08-17 00:00:00 Vincent Jorge [facility] POCT TEST 2023-08-15 00:00:00 Vincent Jorge [facility] [id number] 2023-01-15 00:00:00 [facility] [id number] 2023-01-15 00:00:00 [facility] [id number] 2023-01-15 00:00:00 [facility] [id number] 2023-01-14 00:00:00 MURJO.02 [facility] [id number] 2023-01-13 00:00:00 FALJO.01 [facility] [id number] 2022-12-18 00:00:00 GEIAL.01 [facility] [id number] 2022-11-24 00:00:00 NASDE [facility] [id number] 2022-11-15 00:00:00 PLAFE [facility] MAMMO, diagnostic, digital, bilateral 2022-04-12 00:00:00 [facility] US, breast, bilateral 2022-04-12 00:00:00 [facility] [...] Department Encounter ID Source 2023-12-08 08:24:00 Outpatient Babar Caal [facility] [id number] [facility] 2023-11-07 07:47:00 Outpatient Babar Caal [facility] [id number] [facility] 2023-10-04 13:25:01 Outpatient Babar Caal [facility] [id number] [facility] 2022-11-16 15:54:50 Outpatient [facility] [id number] [facility] 2021-01-12 13:42:04 Emergency [facility] [id number] [facility] 2021-01-11 23:08:03 Emergency [facility] [id number] [facility] 2024-06-25 00:00:00 2024-06-25 13:41:41 Telephone Sharona Frank [facility] MEDICAL OFFICE BUILDING 1..840.114 350.1.13.10 4.2.7.2.686 [id number] 220 [id number] [facility] 2024-06-21 00:00:00 2024-06-21 10:23:45 Telephone Sharona Frank [facility] MEDICAL OFFICE BUILDING 1.2.840.114 350.1.13.10 4.2.7.2.686 [id number] 220 [id number] [facility] 2024-05-11 14:30:00 2024-05-11 14:30:00 Outpatient R HELEN TRUONG [facility] [id number] [facility] 2024-05-09 15:00:00 2024-05-09 15:48:35 Outpatient R JAMIR CAGE [facility] [id number] [facility] 2024-05-09 15:00:00 2024-05-09 15:48:35 Office Visit Jamir Cage [facility] & CHILD [facility] 1.2.840.114 350.1.13.10 4.2.7.2.686 [id number] [facility] 2024-05-01 00:00:00 2024-05-02 12:47:36 Telephone Jamir Cage [facility] & CHILD [facility] 1.2.840.114 350.1.13.10 4.2.7.2.686 [id number] [facility] 2024-04-25 00:00:00 2024-04-26 08:21:06 Telephone Jamir Cage [facility] CHILD [facility] 1.2.840.114 350.1.13.10 4.2.7.2.686 [id number] [facility] 2024-04-24 08:30:00 2024-04-24 09:02:10 Outpatient R IVONE PEREZ [facility] [id number] [facility] 2024-04-24 08:30:00 2024-04-24 09:02:10 Office Visit Jamir Cage Brenda A [facility] & CHILD [facility] 1.2.840.114 350.1.13.10 4.2.7.2.686 [id number] [facility] 2024-03-19 00:00:00 2024-03-19 15:18:40 Telephone Helen Truong [facility] MED[facility] OFF[facility] BU[facility] 1.2.840.114 350.1.13.10 4.2.7.2.686 [id number] 220 [id number] [facility] 2024-03-16 00:00:00 2024-03-16 14:26:01 Telephone JazmínHelen buck [facility] UZMA?ELIOT [facility] MEDICAL OFFICE BUILDING 1..840.114 350.1.13.10 4.2.7.2.686 [id number] 220 [id number] [facility] 2024-03-05 00:00:00 2024-03-05 14:04:48 Telephone Sofia Merchant Khushbu A [facility] UZMA?[facility] MEDICAL OFFICE BUILDING 1..840.114 350.1.13.10 4.2.7.2.686 [id number] 220 [id number] [facility] 2024-02-14 00:00:00 2024-02-14 00:00:00 [facility]TEL[facility] [id number] 2024-02-04 10:00:00 2024-02-04 10:15:00 Sign Letterer Visit Pob, Adc Lab Main Helen Truong Pob, Adc Lab Main [facility] BUILDING 1..840.114 350.1.13.10 4.2.7.2.686 [id number] [facility] 2024-02-04 10:00:00 2024-02-04 10:00:00 Outpatient R HELEN TRUONG [facility] [id number] [facility] 2024-02-03 11:00:00 2024-02-03 11:23:25 Outpatient R HELEN TRUONG [facility] [id number] [facility] 2024-02-03 11:00:00 2024-02-03 11:23:25 Office Visit Wilner [facility] 1.2.840.114 350.1.13.10 4.2.7.2.686 [id number] 220 [id number] [facility] 2024-01-23 00:00:00 2024-01-24 12:06:25 Telephone Donte zavaleta [facility] PRIMARY AND SPECIALTY CARE 1.2.840.114 350.1.13.10 4.2.7.2.686 [id number] 134 [id number] [facility] 2024-01-19 00:00:00 2024-01-19 14:10:34 Telephone Donte zavaleta [facility] PRIMARY [facility] SPECIALTY CARE 1.2.840.114 350.1.13.10 4.2.7.2.686 [id number] [facility] 2024-01-19 00:00:00 2024-01-19 13:40:41 Case Management Trini Marquez [facility] 1.2.840.114 350.1.13.10 4.2.7.2.686 [id number] [facility] 2024-01-18 00:00:00 2024-01-18 15:56:05 [facility] 1.2.840.114 350.1.13.10 4.2.7.2.686 [id number] 220 [id number] [facility] 2024-01-17 14:30:00 2024-01-18 10:18:09 Outpatient R TRINI MARQUEZ [facility] [id number] [facility] 2024-01-11 00:00:00 2024-01-17 17:49:13 Telephone Helen Truong [facility] 1.2840.114 350.1.13.10 4.2.7.2.686 [id number] [facility] 2024-01-17 14:30:00 2024-01-17 15:00:00 Office Visit Trini Marquez [facility] PRIMARY AND SPECIALTY CARE 1.2.840.114 350.1.13.10 4.2.7.2.686 [id number] [facility] 2024-01-04 00:00:00 2024-01-04 10:58:55 Telephone Sofia Merchant Khushbu A [facility] 1.2840.114 350.1.13.10 4.2.7.2.686 [id number] 220 [id number] [facility] 2023-12-14 10:30:00 2023-12-14 10:30:00 Outpatient R [facility] [id number] [facility] 2023-12-09 00:00:00 2023-12-09 13:04:52 Telephone Sofia Merchant Khushbu A [facility] 1.840.114 350.1.13.10 4.2.7.2.686 [id number] 220 [id number] [facility] 2023-12-06 00:00:00 2023-12-07 10:49:56 Telephone Sofia Merchant Khushbu A [facility] 1.2.840.114 350.1.13.10 4.2.7.2.686 [id number] 220 [id number] [facility] 2023-11-09 00:00:00 2023-11-09 00:00:00 OFFICE VISIT ESTAB PT LEVEL 4 STLMLC STLMLC [id number] [facility] 2023-10-28 14:00:00 2023-10-28 15:07:46 Outpatient R HELEN TRUONG [facility] [id number] [facility] 2023-10-28 14:00:00 2023-10-28 15:07:46 [facility] 1..840.114 350.1.13.10 4.2.7.2.686 [id number] 220 [id number] [facility] 2023-10-04 00:00:00 2023-10-04 00:00:00 OFFICE VISIT NEW PT LEVEL 4 STLMLC STLC [id number] [facility] 2023-09-19 11:30:00 2023-09-19 11:30:00 Outpatient [facility] [id number] [facility] 2023-09-05 14:30:00 2023-09-05 15:01:37 Outpatient [facility] [id number] [facility] 2023-09-05 14:30:00 2023-09-05 15:01:37 Office Visit SamidickVincent ames [facility] PRIMARY AND SPECIALTY CARE 1.840.114 350.1.13.10 4.2.7.2.686 [id number] [facility] 2023-08-22 15:07:21 2023-08-22 23:59:00 Outpatient R [facility] [id number] [facility] 2023-08-22 15:07:21 2023-08-22 23:59:00 Hospital Encounter Samimarta Vincent [facility] 1..840.114 350.1.13.10 4.2.7.2.686 [id number] [facility] 2023-08-17 11:30:00 2023-08-17 11:30:00 Office Visit SamiVincent lozano [facility] 1.2.840.114 350.1.13.10 4.2.7.2.686 [id number] 134 [id number] [facility] 2023-08-17 11:30:00 2023-08-17 11:12:22 Outpatient [facility] [id number] [facility] 2023-08-15 15:00:00 2023-08-15 15:00:00 Sign Letterer Visit Lab, Jono - Gallo Gallardomarta [facility] UZMA?[facility] 1.2.840.114 350.1.13.10 4.2.7.2.686 [id number] [facility] 2023-08-15 14:00:00 2023-08-15 14:15:57 Outpatient [facility] [id number] [facility] 2023-08-15 14:00:00 2023-08-15 14:15:57 Office Visit Vincent Jorge [facility] PRIMARY AND SPECIALTY CARE 1.2.840.114 350.1.13.10 4.2.7.2.686 [id number] [facility] 2023-07-17 18:49:00 2023-07-17 23:46:00 TYPE 2 DM W/HYPERGLY CEMIA 1 LATONYA BRONSON ELIZABETH [facility], [address] [place] [address] [address] [place] [address] [facility] [id number] SIRIA Sanchez (AL/MAGALY V/SA) 2023-07-17 00:00:00 2023-07-17 00:00:[address] [place] [address] [facility] [id number] [facility] l (LUF/LI V/SA) 2023-07-17 00:00:00 2023-07-17 00:00:00 Inpatient [facility], [facility]7 [facility] [address] [facility] [place] [address] [facility] [id number] [facility] l (LUF/LI V/SA) 2023-04-18 00:00:00 2023-04-18 00:00:00 Outpatient GC_LEH_Le_D PRIV PRIV [id number] [facility] 2023-02-16 00:00:00 2023-02-16 00:00:00 Outpatient GC_LEH_Le_D PRIV PRIV [id number] [facility] 2023-02-11 00:00:00 2023-02-11 00:00:00 Outpatient GC_LEH_Le_D PRIV PRIV [id number] [facility] 2023-02-11 00:00:00 2023-02-11 00:00:00 Outpatient GC_LEH_Le_D PRIV PRIV [id number] [facility] 2023-02-09 00:00:00 2023-02-09 00:00:00 Outpatient GC_LEH_Le_D PRIV PRIV [id number] [facility] 2023-01-26 00:00:00 2023-01-26 00:00:00 Outpatient GC_LEH_Le_D PRIV PRIV [id number] [facility] 2023-01-26 00:00:00 2023-01-26 00:00:00 Outpatient GC_LEH_Le_D PRIV PRIV [id number] [facility] 2023-01-21 18:34:00 2023-01-21 19:05:00 Emergency EM Napoleon Nazario [facility] [id number] 20 [facility] 2022-11-15 15:27:00 2023-01-18 20:01:00 Inpatient Jak Grullon [facility] OBPP [id number] [facility] 2022-11-14 12:40:00 2022-11-15 14:20:00 Inpatient Gibran Sánchez [facility] LD [id number] [facility] 2022-11-13 17:17:00 2022-11-13 17:17:00 Outpatient UNKNOWN HCANW REF [id number] [facility] 2022-10-20 00:00:00 2022-10-20 00:00:00 Outpatient GC_LEH_Le_D PRIV PRIV [id number] [facility] 2022-10-20 00:00:00 2022-10-20 00:00:00 Outpatient GC_LEH_Le_D PRIV PRIV [id number] [facility] 2022-10-02 22:11:00 2022-10-03 23:58:00 INJ POISON OTH EXT COMP PG 2ND TRI 1 DEMETRI DIA [facility], [address], [place], [place] [id number] [place] [address] [id number] [facility]LI V/SA[facility] 2022-10-02 00:00:00 2022-10-02 00:00:00 Inpatient [facility], [address] [place] [address] [facility] [id number] [facility] 2022-10-02 00:00:00 2022-10-02 00:00:00 Inpatient [facility] N, [address], [place] [address] [facility] [id number] [facility] (LUF/LI V/SA) 2022-09-13 00:00:00 2022-09-13 00:00:00 Outpatient GC_[id number] PRIV PRIV [id number] [facility] 2022-08-19 18:18:00 2022-08-21 12:48:00 Inpatient EM Gavino Mercado [facility] OBSE [id number] [facility] 2022-08-10 13:28:00 2022-08-10 19:20:00 Emergency EM Renita Ballard [facility] HELEN [id number] [facility] 2022-08-08 17:19:00 2022-08-08 19:45:00 INJ POISON OTH EXT COMP PG 1ST TRI 1 [facility] [id number] [facility] (LUF/LI V/SA) 2022-08-08 00:00:00 2022-08-08 00:00:00 Inpatient [email or web address] Al, [address], [place] [address] [facility] [id number] [facility] (LUF/LI V/SA) 2022-08-08 00:00:00 2022-08-08 00:00:00 Inpatient [facility] [address], [place] [address] [facility] [id number] [facility] (LUF/LI V/SA) 2022-08-07 15:27:00 2022-08-07 17:40:00 Emergency EM Andrea Marcos [facility] HELEN [id number] [facility] 2022-07-22 21:41:00 2022-07-23 00:15:00 PRE-EXISTI NG TYPE 1 DM PREG 1ST TRI 1 SIM, DELUCA [facility], [address] , [place] [address] [facility] [id number] [facility] (LUF/LI V/SA) 2022-07-22 00:00:00 2022-07-22 00:00:00 Inpatient [facility], [address] [id number] [facility] [id number] [facility] (LUF/LI V/SA) 2022-07-22 00:00:00 2022-07-22 00:00:00 Inpatient [facility] ARASH Al, [address] [facility] [facility] [id number] [facility] (LUF/LI V/SA) 2022-07-21 22:46:00 2022-07-21 23:59:00 Inpatient [facility], [address] [place], [place] [id number] [facility] [id number] [facility] (LUF/LI V/SA) 2022-07-21 00:00:00 2022-07-21 00:00:00 Inpatient [facility], [address] [place] [address] [facility] [id number] [facility] (LUF/LI V/SA) 2022-07-20 17:40:00 2022-07-20 21:45:00 THREATENED 1 DEMETRI DIA [facility] Al, [address] [facility] [id number] [facility] (LUF/LI V/SA) 2022-07-20 00:00:00 2022-07-20 00:00:00 Inpatient [email or web address] Al, [address] [facility] [id number] [facility] (LUF/LI V/SA) 2022-07-20 00:00:00 2022-07-20 00:00:00 Inpatient [facility] Al, [address] [id number] [facility] [id number]-470a-[id number] [facility] (LUF/LI V/SA) 2022-07-13 17:44:00 2022-07-13 21:07:00 Emergency EM Adriana Mckeon [facility] [id number] [facility] 2022-06-21 16:55:00 2022-06-21 21:07:00 PRE-EXISTI NG TYPE 2 DM PREG 1ST TRI 1 SANDRINE SIM STL EMD [id number] [facility] (LUF/LI V/SA) 2022-06-21 00:00:00 2022-06-21 00:00:00 Inpatient [facility] N, [address], [place] [address] [id number] [facility] (LUF/LI V/SA) 2022-06-21 00:00:00 2022-06-21 00:00:00 Inpatient [facility] N, [address], [place] [address] [facility] [id number] [facility] (LUF/LI V/SA) 2022-06-18 00:00:00 2022-06-18 00:00:00 Luiz Rogers, SERGER: [address] [place] [address] , Ph. [facility] - GC_LEH_Clev dassel Office* [id number] [facility] 2022-06-14 12:15:00 2022-06-14 16:54:00 VOMITING OF UNSPECIFIE D 1 ALIA STRANGE [facility] EMD [id number] [facility] V/SA) 2022-06-14 00:00:00 2022-06-14 00:00:00 Inpatient [facility] N, [address], [place] [address] [facility] [id number] [facility] (LUF/LI V/SA) 2022-06-14 00:00:00 2022-06-14 00:00:00 Inpatient [facility] OZZY Melendez, [address], [place] [address] [facility] [id number] [facility] (LUF/LI V/SA) 2022-06-14 00:00:00 2022-06-14 00:00:00 Inpatient [facility] OZZY Melendez, [address], [facility], [address] [id number] [facility] (LUF/LI V/SA) 2022-05-26 12:36:00 2022-05-26 16:06:00 TYPE 2 DM W/HYPERGLY CEMIA 1 THALIA GODDARD [facility] EMD [id number] [facility] (LUF/LI V/SA) 2022-05-26 00:00:00 2022-05-26 00:00:00 Inpatient [facility] OZZY Melendez, [address], [facility], [facility] [place] [address] [id number] [facility] (LUF/LI V/SA) 2022-05-26 00:00:00 2022-05-26 00:00:00 Inpatient [facility] OZZY Melendez, [address], [facility], [facility] [facility] [id number] [facility] (LUF/LI V/SA) 2022-05-17 00:00:00 2022-05-17 00:00:00 Outpatient [facility] [id number] [facility] 2022-05-11 00:00:00 2022-05-11 00:00:00 Lani Pitt, DISK GRINDER: [address] [place] [address] , Ph. [facility] - GC_LEH_Clev eland Office* [id number] [facility] 2022-04-12 00:00:00 2022-04-12 00:00:00 Outpatient GC_LEH_Le_D PRIV PRIV [id number] [facility] 2022-04-12 00:00:00 2022-04-12 00:00:00 Outpatient GC_LEH_Le_D PRIV PRIV [id number] [facility] 2022-04-12 00:00:00 2022-04-12 00:00:00 Outpatient GC_LEH_Le_D PRIV PRIV [id number] [facility] 2022-04-12 00:00:00 2022-04-12 00:00:00 Outpatient GC_LEH_Le_D PRIV PRIV [id number] [facility] 2022-04-12 00:00:00 2022-04-12 00:00:00 Outpatient GC_LEH_Le_D PRIV PRIV [id number] [facility] 2022-04-12 00:00:00 2022-04-12 00:00:00 Lani Pitt, DISK GRINDER: [address] [place] [address] , Ph. [facility] GC_LEH_Clev eland Office* [id number] [facility] 2022-04-10 13:27:00 2022-04-10 18:13:00 Emergency EM Cory [facility]Judy [facility] [id number] [facility] 2022-03-27 11:53:00 2022-03-27 15:57:00 ACUTE CANDIDIASI S VULVA AND VAGINA 1 JOYCE BORGES [facility] N, [address], [place] [address] [facility] [id number] [facility] (AL/LI V/SA) 2022-03-27 00:00:00 2022-03-27 00:00:00 Inpatient [facility] OZZY Melendez, [address], [place] [address] [facility] [id number] [facility] (LUF/LI V/SA) 2022-03-27 00:00:00 2022-03-27 00:00:00 Inpatient [facility] OZZY Melendez, [address], [place] [address] [facility] [id number] [facility] (LUF/LI V/SA) 2022-03-15 13:47:00 2022-03-15 14:46:00 TINEA CRURIS 1 ALIE, ALIA [facility] Al, [address], [place] [address] [facility] [id number] [facility] (LUF/LI V/SA) 2022-03-15 00:00:00 2022-03-15 00:00:00 Inpatient [facility] OZZY Melendez, [address], [place] [address] [facility] [id number] [facility] (LUF/LI V/SA) 2022-03-12 00:00:00 2022-03-12 00:00:00 Outpatient GC_LEH_Le_D [facility] [id number] [facility] 2022-03-12 00:00:00 2022-03-12 00:00:00 Outpatient GC_LEH_Le_D [facility] [id number] [facility] 2022-03-11 00:00:00 2022-03-11 00:00:00 Lani Pitt, DISK GRINDER: [address] [place] [address] , Ph. [facility] - GC_LEH_Clev dassel Office* [id number] [facility] 2022-01-11 00:00:00 2022-01-11 00:00:00 Lani Pitt, DISK GRINDER: [address] [place] [address] , Ph. [facility] - GC_LEH_Clev dassel Office* [id number] [facility] 2022-01-01 22:35:00 2022-01-02 03:05:00 TYPE 2 DM W/HYPERGLY CEMIA 1 CHIQUIS DELUCA [facility] N, [address], [address] [id number] [facility] (LUF/LI V/SA) 2022-01-01 00:00:00 2022-01-01 00:00:00 Inpatient [facility] N, [address], [address] [id number] [facility] (LUF/LI V/SA) 2022-01-01 00:00:00 2022-01-01 00:00:00 Inpatient [facility] N, [address], [place] [id number] [place] [address] [id number] [facility] (LUF/LI V/SA) 2021-10-12 00:00:00 2021-10-12 00:00:00 Outpatient GC_LEH_Le_D [facility] [id number] [facility] 2021-10-12 00:00:00 2021-10-12 00:00:00 Outpatient GC_LEH_Le_D [facility] [id number] [facility] 2021-10-12 00:00:00 2021-10-12 00:00:00 Lani Pitt, DISK GRINDER: [address] [place] [address] , Ph. [facility] - GC_LEH_[place]v eland Office* [id number] [facility] 2021-10-12 00:00:00 2021-10-12 00:00:00 Outpatient Lani Pitt [facility] [id number] 2021-10-06 09:13:00 2021-10-06 09:13:00 Outpatient GC_LEH_Le_D [facility] PRIV [id number] [facility] 2021-10-05 05:32:00 2021-10-05 05:32:00 Outpatient GC_LEH_Le_D [facility] PRIV [id number] [facility] 2021-10-05 00:00:00 2021-10-05 00:00:00 Lani Pitt, DISK GRINDER: [address] [place] [address] , Ph. [facility] - GC_LEH_Clev eland Office* [id number] [facility] 2021-10-05 00:00:00 2021-10-05 00:00:00 Outpatient Lani Pitt [facility] [id number] 2021-09-09 01:27:00 2021-09-09 01:27:00 Outpatient GC_LEH_Le_D [facility] [id number] [facility] 2021-09-09 00:00:00 2021-09-09 00:00:00 Lani Pitt, DISK GRINDER: [address] [place] [address] , Ph. [facility] - GC_LEH_Clev eland Office* [id number] [facility] 2021-09-09 00:00:00 2021-09-09 00:00:00 Outpatient Lani Pitt [facility] [id number] 2021-08-04 01:01:00 2021-08-04 01:01:00 Outpatient GC_LEH_Le_D PRIV PRIV [id number] [facility] 2021-07-28 05:08:00 2021-07-28 05:08:00 Outpatient GC_LEH_Le_D PRIV PRIV [id number] [facility] 2021-07-28 00:00:00 2021-07-28 00:00:00 Lani Pitt, DISK GRINDER: [address] [place] [address] , Ph. [facility] - GC_LEH_[place]v el[place] Office* [id number] [facility] 2021-07-28 00:00:00 2021-07-28 00:00:00 Outpatient Lani Pitt [facility] [id number] 2021-07-17 03:54:00 2021-07-17 03:54:00 Outpatient GC_LEH_Le_D [facility] PRIV [id number] [facility] 2021-07-17 00:00:00 2021-07-17 00:00:00 Luiz Rogers APN: [address] [place] [address] , Ph. [facility] - GC_LEH_[place]v eland Office* [id number] [facility] 2021-07-17 00:00:00 2021-07-17 00:00:00 Outpatient Luiz Rogers [facility] [id number] 2021-06-15 02:38:00 2021-06-15 02:38:00 Outpatient GC_LEH_Le_D [facility] PRIV [id number] [facility] 2021-06-15 00:00:00 2021-06-15 00:00:00 Lani Pitt, DISK GRINDER: [address] [place] [address] , Ph. [facility] - GC_LEH_Clev eland Office* [id number] [facility] 2021-06-15 00:00:00 2021-06-15 00:00:00 Outpatient Lani Pitt [facility] PRIV [id number] 10:30:00 2021-04-21 10:30:00 Outpatient GC_LEH_Le_D PRIV PRIV [id number] [facility] 2021-04-20 03:46:00 2021-04-20 03:46:00 Outpatient GC_LEH_Le_D PRIV PRIV [id number] [facility] 2021-04-20 00:00:00 2021-04-20 00:00:00 Lani Pitt, DISK GRINDER: [address] [place] [address] , Ph. [facility] - GC_LEH_Clev eland Office* [id number] [facility] 2021-04-20 00:00:00 2021-04-20 00:00:00 Outpatient Lani Pitt [facility] PRIV [id number] 2021-03-26 10:59:00 2021-03-26 10:59:00 Outpatient GC_LEH_Le_D PRIV PRIV [id number] [facility] 2021-03-25 02:48:00 2021-03-25 02:48:00 Outpatient GC_LEH_Le_D PRIV PRIV [id number] [facility] 2021-03-25 00:00:00 2021-03-25 00:00:00 Outpatient YoandyLani [facility] PRIV [id number] 2021-03-25 00:00:00 2021-03-25 00:00:00 Lani Pitt, DISK GRINDER: [address] [place] [address] , Ph. [facility] - GC_LEH_Clev eland Office* [id number] [facility] 2021-03-24 02:59:00 2021-03-24 02:59:00 Outpatient GC_LEH_Le_D [facility] [id number] [facility] 2021-03-19 05:48:00 2021-03-19 05:48:00 Outpatient GC_LEH_Le_D [facility] [id number] [facility] 2021-03-18 20:07:00 2021-03-19 03:12:00 Emergency EM Jonny Mejia [facility] [id number] [facility] 2021-03-19 00:00:00 2021-03-19 00:00:00 Outpatient Dennys Roger [facility] [id number] 2021-03-19 00:00:00 2021-03-19 00:00:00 Dennys Roger, DISK GRINDER: [address] [place] [address] , Ph. [facility] - GC_LE_[facility] eland Office* [id number] [facility] Results Test Description Test Time Test Comments Results Result Co mments Source [facility] w/o Specific Onkgtwh0824-07-28 20:18:00* Test Item Value Reference Range Interpretation [...] = 3257) 50 Negative - Negati ve [facility] [id number] 00:00:00* Test Item Value Reference Range Interpretation Comme nts A1C (test code = 4548-4) 13.5 HEMOGLOBIN [id number] 00:00:00* Test Item Value Reference Range Interpretation Comme nts A1C (test code = 4548-4) 12.9 POCT [id number] 15:53:00* Test Item Value Reference Range Interpretation Comme nts POCT PREG (test code = 1605) Negative On board controls acceptable with C Line (test code = 3574) Yes POCT PREG LOT # (test code = 3575) POCT PREG TEST DATE ( test code = 3576) [facility] [id number] 15:53:00* Test Item Value Reference Range Interpretation Comme nts POCT PREG (test code = 1605) Negative On board controls acceptable with C Line (test code = 3574) Yes POCT PREG LOT # (test code = 3575) POCT PREG TEST DATE ( test code = 3576) [facility] [id number] 19:14:00* Test Item Value Reference Range Interpretation Comme nts POCT PREG (test code = 1605) Negative On board controls acceptable with C Line (test code = 3574) Yes POCT PREG LOT # (test code = 3575) POCT PREG TEST DATE ( test code = 3576) [facility] [id number] 19:14:00* Test Item Value Reference Range Interpretation Comme nts POCT PREG (test code = 1605) Negative On board controls acceptable with C Line (test code = 3574) Yes POCT PREG LOT # (test code = 3575) POCT PREG TEST DATE ( test code = 3576) [facility] [id number] 23:34:00* Test Item Value Reference Range Interpretation Comme nts LACTATE (test code = LAC) 3.0 mmol/l 0.4-2.0 HH This is a REPEAT IF initial lactate >2.0STLMLXR ABDOMEN 1 VIEW (KUB)2023-07-17 21:11:54[facility] (LUF/DANA/SA)Name: AMINTA NINO : 1990 Sex: FABDOMEN (1 VIEW)HISTORY: Abdominal pain.COMPARISON- none available.FINDINGS:No intestinal obstruction. No free air. The skeletal structures appear normal.Electronically signed by: Lea Forrester 07/17/2023 21:07Dictated By: LEA FORRESTERDate: 07/17/2023 21:11STLMLURINALYSIS WITH REFLEX TO [id number] 21:10:00* Test Item Value Reference Range Interpretation Comme nts Color (test code = UCOLR) Yellow Clarity (test code = UCLAR) Clear Glucose (test code = UGLUC) >=1000 NEGATIVE A Bilirubin (test code = UBILI) NEGATIVE NEGATIVE N Ketones (test code = UKET) TRACE NEGATIVE A Specific [place] (test code = USPGR) 1.025 1.005-1.030 A Blood (test code = UBLD) NEGATIVE NEGATIVE N PH (test code = UPH) 6.0 4.5-8.0 A Protein (test code = UPROT) TRACE NEGATIVE A Urobilinogen (test code = U UROB) 0.2 See_Comment N [Automated [employer] ge] The system which generated this result [...] ACESER) 3.22 mg/dl 0.20-2.81 H STLMLLACTIC ACID [id number] 20:48:00* Test Item Value Reference Range Interpretation Comme nts LACTATE (test code = LAC) 3.3 mmol/l 0.7-2.0 HH Critical values were called to Kathy Bernal RN by [id number] on 07/17/23 20:48 . Results were read back by Kathy Bernal RN.HGSECAJOJCG8267-55-26 20:43:00* Test Item Value Reference Range Interpretation Comme nts Lipase (test code = LIPA) 34 U/L 13-75 [id number] 20:43:00* Test Item Value Reference Range Interpretation Comme nts Magnesium (test code = MG) 1.9 mg/dl 1.6-2.6 [id number] 20:32:00* Test Item Value Reference Range Interpretation Comme nts Phosphorus (test code = PHOS) 3.8 mg/dl 2.5-4.5 [id number] 20:32:00* Test Item Value Reference Range Interpretation [...] use a race coefficient. STLMLPREGNANCY TEST, Urine Pkpyhnfdczz2331-33-90 20:22:00* Test Item Value Reference Range Interpretation Comme nts (Urine) (test code = PREGU) Negative STLMLCBC WITH AUTO [id number] 20:15:00* Test Item Value Reference Range Interpretation [...] code = IG%) 0.5 % 0.0-0.4 H ERGLECQTPOVMF3842-71-13 15:59:00* Test Item Value Reference Range Interpretation Comme nts SURGICAL (test code = SR) R UN DATE: 01/31/23 [facility] PAGE 1 RUN TIME: 1559 Specimen Inquiry RUN USER: INTERFACE P ATIENT: AMINTA NINO LOC: GENNA U #: [id number] AGE/SX: 32/F ROOM: [facility] RE11/15/22REG DR: Jak Herrera MD : 89 BED: A DIS: 01/18/23 STATUS: DIS IN TLOC: SPEC #: [id number] RECD: 01/17/23 STATUS: ILANA FARRAR #: [id number] DELILAH: 01/15/232 [facility] DR: Jak Herrera MD ENTERED: 01/17/23 SP TYPE: SURGICAL OTHR DR: Self Referred Tad Jordan MD, Dean A MD Orzeck, Eric A MD Singhal, Meghali MDORDERED: ANATOMIC SPEC, SPEC TRACK, [id number] COPIES TO: Self Referred Jak Herrera MD [address] [facility] [address] [place], [place] [id number] [email or web address] Tad Jordan MD [address] [place] [address] [place] [address] [place] [address] [email or web address] [place]al [place] [address] [address] [email or web address] Elías Garcia MD [address] [facility] [address] [place] [address] PROCEDURES: 53511 (01/17/23) TISSUES: A. PLACENTA, THIRD TRIMESTER (28 + WEEKS) CONTINUED ON NEXT PAGE R UN DATE: 01/31/23 [facility] PAGE 2 RUN TIME: 1559 Specimen Inquiry RUN USER: INTERFACE S PEC #: [id number] PATIENT: AMINTA NINO #[id number] (Continued) FINAL DIAGNOSIS PLACENTA, DELIVERY: Placental disc [...] surface: Red-brown partially friable soft tissueLesions: None Rn Cardiac Rehab sections submitted as follows: A1: umbilical cord and membrane roll A2-A4: Sections of disc MP 01/17/[address] performed at [facility] [place] [address] Immunohistochemical stains and Special Stains are performed at [facility], [address], [place] [address] Unless gross only, the diagnosis is based upon microscopic examination. Immunohistochemistry: This test was developed and its performance characteristicsdetermined by this laboratory. It has not been approved nor does it need approval by [place] FDA. Appropriate positive and negative controls are reviewed and judged to be CONTINUED ON NEXT PAGE R UN DATE: 01/31/23 [facility] PAGE 3 RUN TIME: 1559 Specimen Inquiry RUN USER: INTERFACE S PEC #: [id number] PATIENT: AMINTA NINO #[id number] (Continued) GROSS DESCRIPTION (Continued) acceptable. This laboratory is certified under the Clinical Laboratory ImprovementAmendments (CLIA-88) as qualified to perform high complexity clinical laboratory testing. MICROSCOPIC DESCRIPTION Microscopic examination is performed and the findings are incorporated in the diagnosis. CLINICAL INFORMATION 01/15/2023, IUP @ 34.6 WKS, RICHYTN, PRE-E, PM2. --- Signed _ TeddycorineClarencemarilee 01/31/23 1559 END OF REPORT [id number] 08:56:00* Test Item Value Reference Range Interpretation Comme nts SGOT/AST (test code = AST) 17 units/L 15-37 N SGPT/[id number] 08:56:00* Test Item Value Reference Range Interpretation Comme nts SGPT/ALT (test code = ALT) 17 units/L 12-78 N CBC W/AUTO [id number] 07:45:00* Test Item Value Reference Range Interpretation [...] REQUIRED (test code = PLTMR) NORMAL NORMAL [id number] 06:15:00* Test Item Value Reference Range Interpretation Comme nts GLUBED (test code = GLUBED) 180 mg/dL 65-110 H [id number] 21:05:00* Test Item Value Reference Range Interpretation Comme nts GLUBED (test code = GLUBED) 287 mg/dL 65-110 H [id number] 13:38:00* Test Item Value Reference Range Interpretation Comme nts GLUBED (test code = GLUBED) 157 mg/dL 65-110 H CAPILLARY BLOOD [id number] 11:28:00* Test Item Value Reference Range Interpretation [...] t code = DELC) RA CAPILLARY BLOOD [id number] 11:25:00* Test Item Value Reference Range Interpretation [...] DEL (shey t code = DELC) RA [id number] 03:10:00* Test Item Value Reference Range Interpretation Comme nts GLUBED (test code = GLUBED) 146 mg/dL 65-110 H [id number] 00:43:00* Test Item Value Reference Range Interpretation Comme nts GLUBED (test code = GLUBED) 129 mg/dL 65-110 H [id number] 19:36:00* Test Item Value Reference Range Interpretation Comme nts GLUBED (test code = GLUBED) 108 mg/dL 65-110 N RUPTURE OF [id number] 15:05:00* Test Item Value Reference Range Interpretation Comme nts RUPTURE OF MEMBRANES (test c ode = ROM) RUPTURED [id number] 14:47:00* Test Item Value Reference Range Interpretation Comme nts GLUBED (test code = GLUBED) 106 mg/dL 65-110 N [id number] 09:41:00* Test Item Value Reference Range Interpretation Comme nts GLUBED (test code = GLUBED) 97 mg/dL 65-110 N [id number] 05:41:00* Test Item Value Reference Range Interpretation Comme nts GLUBED (test code = GLUBED) 68 mg/dL 65-110 N COMPREHENSIVE METABOLIC [id number] 19:41:00* Test Item Value Reference Range Interpretation [...] ALKP) 107 units/L 46-116 N UR PROTEIN/CREATININE [id number] 19:10:00* Test Item Value Reference Range Interpretation Comme nts UR PROTEIN RANDOM (test code = PROTU) 55.0 mg/dL No reference range available UR CREATININE RANDOM (test code = CREATU) 90.2 mg/dL No referenc e range available PROTEIN/CREATININE RATIO (test code = P/CRATIO) 609.7 mg/gcrea <200 H CBC W/AUTO [id number] 18:50:00* Test Item Value Reference Range Interpretation [...] code = PLTMR) NORMAL NORMAL RUPTURE OF [id number] 01:04:00* Test Item Value Reference Range Interpretation Comme nts RUPTURE OF MEMBRANES (test c ode = ROM) NON-RUPTURED - US FET BIO PH OK W/O [id number] 17:48:00 [facility] : 1990 Sex: F Patient Name: AMINTA NINO Unit No: [id number] EXAMS: CPT CODE: [id number] US FET BIO PH OK W/O NST 99124 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 Exam: - US FET BIO PH OK W/O NSTTechnique: 2D grayscale, pulse wave and/or color Doppler evaluation were performed. Comparison: Prior exam(s) dated 11/13/2022 Findings: Evaluation is somewhat limited due to patient body habitus. The fetus was scanned for a period of 30 minutes and biophysical profile scoring was performed as follows: breathing movements, score 2 out of 2. Gross body movements, score 2 out of 2. tone, score 2 out of 2. Quantitative amniotic fluid volume, score 2 out of 2. A total biophysical profile score of 8 out of 8 is noted. The heart rate is 149 beats per minute. Amniotic fluid index is 6.4 cm The cervix was not well-visualized and evaluated on this exam. The fetus is cephalic in presentation. The placenta is anterior in location. Impression: Biophysical profile score is 8 of 8. MATHEUS is at the lower limits of normal, measuring 6.4 cm. Electronically Signed by Agatha George MD on01/07/2023 at 1748 Reported and signed by: Agatha Geroge MD CC: Darron Santacruz MD; Jak Herrera MD; Tad Jordan MD Technologist: IRIS GARCIA RDMS Probe: Trnscrbd D/ (1748) [email or web address] Print D/T: S: 01/07/2023 (1751) [facility] NAME: AMINTA NINO Radiology Department PHYS: Darron Santacruz MD [address] : 1990 AGE: 32 SEX: F [place] [address] LOC: F.Rio8 A PHONE #: [phone] EXAM DATE: 01/07/2023 STATUS: ADM IN FAX #: [phone] RAD NO: Page 1 Signed Report Patient Name: AMINTA NINO Unit No: [id number] EXAMS: CPT CODE: [id number] [facility] BIO PH [place] W/O NST [address] (Continued) [facility] NAME: AMINTA NINO Radiology Department PHYS: Darron Santacruz MD [address] : 1990 AGE: 32 SEX: F [place] [address] LOC: [phone].[phone] A PHONE #: [phone] EXAM DATE: 01/07/2023 STATUS: ADM IN FAX #: [phone] RAD NO: Page 2 Signed ReportUR PROTEIN/CREATININE [id number] 16:52:00* Test Item Value Reference Range Interpretation Comme nts UR PROTEIN RANDOM (test code = PROTU) 41.1 mg/dL No reference range available UR CREATININE RANDOM (test code = CREATU) 103.6 mg/dL No referenc e range available PROTEIN/CREATININE RATIO (test code = P/CRATIO) 396.7 mg/gcrea <200 H COMPREHENSIVE METABOLIC [id number] 14:38:00* Test Item Value Reference Range Interpretation [...] calculation forGFR is based on the CKD-EPI (2021) calculation. This formulais race indifferent and is the recommended formula for GFRby the National Kidney Foundation for Adults.The GFR will not calculate if the sex is unknown or if thepatient's age is <18 years. CBC W/AUTO [id number] 14:18:00* Test Item Value Reference Range Interpretation [...] code = PLTMR) NORMAL NORMAL RUPTURE OF [id number] 21:42:00* Test Item Value Reference Range Interpretation Comme nts RUPTURE OF MEMBRANES (test c ode = ROM) NON-RUPTURED [id number] 05:12:00* Test Item Value Reference Range Interpretation Comme nts FRUCTOSAMINE (test code = FRUC) 180 umol/L 0-285 Published refere nce interval for apparently healthysubjects between age 20 and 60 is 205 - 285 umol/L and in apoorly controlled diabetic population is 228 - 563 umol/Lwith a mean of 396 umol/L.Performed At: [facility] [address] [place], [place] [id number] Chencho Montalvo MD Ph:[phone] [id number] 13:28:00* Test Item Value Reference Range Interpretation Comme nts GLUBED (test code = GLUBED) 72 mg/dL 65-110 N [id number] 10:55:00* Test Item Value Reference Range Interpretation Comme nts CREATININE (test code = CREAT) 0.6 mg/dL 0.5-1.0 N UR CREATININE CLEARANCE [id number] 10:45:00* Test Item Value Reference Range Interpretation Comme nts CREATININE CLEARANCE RESULT (test code = CREATCLR) 258 ml/min 70-120 H CREATININE (test code = CREAT) 0.4 mg/dL 0.5-1.0 L UR CREATININE RANDOM (test code = CREATU) 67.6 mg/dL No referenc e range available UR VOLUME (test code = VOL) 2200 ML UR PROTEIN [id number] 10:45:00* Test Item Value Reference Range Interpretation Comme nts UR PROTEIN RANDOM (test code = PROTU) 37.9 mg/dL No reference range available UR PROTEIN 24HR (test code = GGAP82U) 834 mg/24HR 20-150 HH RESULTS CALLED Janet GregoryREAD BACK & CONFIRMED? Y.BY FGALDINOKG 12/28/22 1044.Units for 24 HR Urine Protein have changed: New Units = MG/24HR COMPREHENSIVE METABOLIC [id number] 12:59:00* Test Item Value Reference Range Interpretation [...] if thepatient's age is <18 years. PROTHROMBIN [id number] 12:50:00* Test Item Value Reference Range Interpretation Comme nts PROTHROMBIN TIME PATIENT (te st code = PTP) 10.0 secs 9.8-13.3 N THROMBOPLASTIN TIME [id number] 12:50:00* Test Item Value Reference Range Interpretation Comme nts THROMBOPLASTIN TIME PARTIAL (test code = PTT) 29 secs 26.2-37.2 N CBC W/AUTO [id number] 12:39:00* Test Item Value Reference Range Interpretation [...] REQUIRED (test code = PLTMR) NORMAL NORMAL [id number] 14:42:00* Test Item Value Reference Range Interpretation Comme nts GLUBED (test code = GLUBED) 196 mg/dL 65-110 H [id number] 10:55:00* Test Item Value Reference Range Interpretation Comme nts GLUBED (test code = GLUBED) 120 mg/dL 65-110 H [id number] 06:08:00* Test Item Value Reference Range Interpretation Comme nts GLUBED (test code = GLUBED) 116 mg/dL 65-110 H [id number] 21:11:00* Test Item Value Reference Range Interpretation Comme nts GLUBED (test code = GLUBED) 168 mg/dL 65-110 H [id number] 14:39:00* Test Item Value Reference Range Interpretation Comme nts GLUBED (test code = GLUBED) 138 mg/dL 65-110 H [id number] 10:37:00* Test Item Value Reference Range Interpretation Comme nts GLUBED (test code = GLUBED) 80 mg/dL 65-110 N [id number] 06:05:00* Test Item Value Reference Range Interpretation Comme nts GLUBED (test code = GLUBED) 92 mg/dL 65-110 N [id number] 12:08:00* Test Item Value Reference Range Interpretation Comme nts FRUCTOSAMINE (test code = FRUC) 200 umol/L 0-285 Published refere nce interval for apparently healthysubjects between age 20 and 60 is 205 - 285 umol/L and in apoorly controlled diabetic population is 228 - 563 umol/Lwith a mean of 396 umol/L.Performed At: [facility] [id number] Montalvo MD Ph:[phone] [id number] 10:16:00* Test Item Value Reference Range Interpretation Comme nts FRUCTOSAMINE (test code = FRUC) 217 umol/L 0-285 Published refere nce interval for apparently healthysubjects between age 20 and 60 is 205 - 285 umol/L and in apoorly controlled diabetic population is 228 - 563 umol/Lwith a mean of 396 umol/L.Performed At: [facility] [id number] Montalvo MD Ph:[phone] [id number] 02:11:00* Test Item Value Reference Range Interpretation Comme nts GLUBED (test code = GLUBED) 313 mg/dL 65-110 H Phsician Notifie d CHLAMYDIA GC DNA BY [id number] 11:16:00* Test Item Value Reference Range Interpretation Comme nts C. TRACHOMATIS DNA BY PCR (test code = CHLAMTDNA) NOT DETECTED Not Detecte N. GONORRHOEAE DNA BY PCR (test code = NGONORDNA) NOT DETECTED Not Detecte TEST PERFORMED U SING THE ENDOTRONIXID GENEXPERT BY PCR.FALSE NEGATIVE RESULTS MAY OCCUR IF THE ORGANISM(S) ISPRESENT AT LEVELS BELOW THE ANALYTICAL LIMIT OD DETECTION.BECAUSE THE DETECTION OF CHLAMYDIA TRACHOMATIS AND NEISSERIA GONORRHOEAE IS DEPENDENT ON THE DNA PRESENT INTHE SAMPLE, RELIABLE RESULTS ARE DEPENDENT ON PROPER SAMPLECOLLECTION, HANDLING, AND STORAGE. [id number] 06:13:00* Test Item Value Reference Range Interpretation Comme nts GLUBED (test code = GLUBED) 243 mg/dL 65-110 H [id number] 20:53:00* Test Item Value Reference Range Interpretation Comme nts GLUBED (test code = GLUBED) 249 mg/dL 65-110 H [id number] 15:22:00* Test Item Value Reference Range Interpretation Comme nts GLUBED (test code = GLUBED) 153 mg/dL 65-110 H [id number] 06:27:00* Test Item Value Reference Range Interpretation Comme nts GLUBED (test code = GLUBED) 212 mg/dL 65-110 H [id number] 21:01:00* Test Item Value Reference Range Interpretation Comme nts GLUBED (test code = GLUBED) 232 mg/dL 65-110 H [id number] 14:55:00* Test Item Value Reference Range Interpretation Comme nts GLUBED (test code = GLUBED) 178 mg/dL 65-110 H [id number] 05:27:00* Test Item Value Reference Range Interpretation Comme nts GLUBED (test code = GLUBED) 223 mg/dL 65-110 H [id number] 22:43:00* Test Item Value Reference Range Interpretation Comme nts GLUBED (test code = GLUBED) 213 mg/dL 65-110 H [id number] 19:59:00* Test Item Value Reference Range Interpretation Comme nts FERRITIN (test code = BILLIE) 63.3 NG/ML 6.24-137 N (Hit ENTER to Con't) .TOTAL IRON BINDING [id number] 19:59:00* Test Item Value Reference Range Interpretation Comme nts SERUM IRON (test code = IRON) 129 MCG/DL 37-170 TOTAL IRON BINDING CAPACITY (test code = TIBC) 634 MCG/DL 265-497 H IRON SATURATION (test code = FESAT) 20 % 12-57 (Hit ENTER to Con't) .[id number] 19:59:00* Test Item Value Reference Range Interpretation Comme nts FERRITIN (test code = BILLIE) 63.3 NG/ML 6.24-137 (Hit ENTER to Con't) .FE W/TOTAL IRON BINDING CAP.2022-11-23 19:24:00* Test Item Value Reference Range Interpretation Comme [facility] SERUM IRON (test code = IRON) 129 MCG/DL 37-170 N TOTAL IRON BINDING CAPACITY (test code = TIBC) 634 MCG/DL 265-497 H IRON SATURATION (test code = FESAT) 20 % 12-57 N (Hit ENTER to Con't) .[id number] 15:06:00* Test Item Value Reference Range Interpretation Comme nts GLUBED (test code = GLUBED) 198 mg/dL 65-110 H RUBELLA [id number] 14:51:00* Test Item Value Reference Range Interpretation Comme [facility] RUBELLA SCREEN (test code = RUBSC) 8.2 IUnit/ml Samples with a value >= 5.0 IUnits/mL and <=9.9 IUnits/mL are considered equivocal for IgG antibodies to rubella virus. Obtain a new specimen and retest. B-TYPE NATRIURETIC [id number] 14:41:00* Test Item Value Reference Range Interpretation Comme [facility] B-TYPE NATRIURETIC PEPTIDE ( test code = BNP) 0.38 pg/mL 0-100 N THYROID STIMULATING [id number] 14:39:00* Test Item Value Reference Range Interpretation Comme [facility] THYROID STIMULATING HORMONE (test code = TSH) 2.13 0.36-3.74 N Test Performed i n MicroInternational Units/mL [id number] 06:26:00* Test Item Value Reference Range Interpretation Comme nts GLUBED (test code = GLUBED) 156 mg/dL 65-110 H UR PROTEIN/CREATININE [id number] 17:22:00* Test Item Value Reference Range Interpretation Comme nts UR PROTEIN RANDOM (test code = PROTU) 30.4 mg/dL No reference range available UR CREATININE RANDOM (test code = CREATU) 135.6 mg/dL No referenc e range available PROTEIN/CREATININE RATIO (test code = P/CRATIO) 224.1 mg/gcrea <200 H UA RFLX MICR CULT IF [id number] 16:13:00* Test Item Value Reference Range Interpretation [...] culture: Dysuria/FrequencySpecimen Description: CLEAN CATCH COMPREHENSIVE METABOLIC [id number] 16:08:00* Test Item Value Reference Range Interpretation [...] thepatient's age is <18 years. CBC W/AUTO [id number] 15:09:00* Test Item Value Reference Range Interpretation [...] REQUIRED (test code = PLTMR) NORMAL NORMAL [id number] 08:58:00* Test Item Value Reference Range Interpretation Comme nts GLUBED (test code = GLUBED) 125 mg/dL 65-110 H [id number] 00:09:00* Test Item Value Reference Range Interpretation Comme nts GLUBED (test code = GLUBED) 99 mg/dL 65-110 N [id number] 21:10:00* Test Item Value Reference Range Interpretation Comme nts GLUBED (test code = GLUBED) 251 mg/dL 65-110 H Phsician Notifie d [id number] 15:42:00* Test Item Value Reference Range Interpretation Comme nts GLUBED (test code = GLUBED) 163 mg/dL 65-110 H [id number] 12:05:00* Test Item Value Reference Range Interpretation Comme nts GLUBED (test code = GLUBED) 196 mg/dL 65-110 H [id number] 20:44:00* Test Item Value Reference Range Interpretation Comme nts GLUBED (test code = GLUBED) 162 mg/dL 65-110 H [id number] 15:08:00* Test Item Value Reference Range Interpretation Comme nts GLUBED (test code = GLUBED) 96 mg/dL 65-110 N [id number] 06:10:00* Test Item Value Reference Range Interpretation Comme nts GLUBED (test code = GLUBED) 133 mg/dL 65-110 H [id number] 20:09:00* Test Item Value Reference Range Interpretation Comme nts GLUBED (test code = GLUBED) 228 mg/dL 65-110 H [id number] 15:13:00* Test Item Value Reference Range Interpretation Comme nts C-PEPTIDE (test code = CPEP) 1.5 ng/mL 1.1-4.4 C-Peptide refere nce interval is for fasting patients.Performed At: [address] [id number] Montalvo MD Ph:[phone] [id number] 14:58:00* Test Item Value Reference Range Interpretation Comme nts GLUBED (test code = GLUBED) 124 mg/dL 65-110 H [id number] 10:14:00* Test Item Value Reference Range Interpretation Comme nts FRUCTOSAMINE (test code = FRUC) 198 umol/L 0-285 Published refere nce interval for apparently healthysubjects between age 20 and 60 is 205 - 285 umol/L and in apoorly controlled diabetic population is 228 - 563 umol/Lwith a mean of 396 umol/L.Performed At: [address] [id number] Montalvo MD Ph:[phone] [id number] 10:14:00* Test Item Value Reference Range Interpretation Comme nts INSULIN (test code = INS) 37.3 uIU/mL 2.6-24.9 H Performed At: [address] [id number] Montalvo MD Ph:[phone] [id number] 06:54:00* Test Item Value Reference Range Interpretation Comme nts GLUBED (test code = GLUBED) 138 mg/dL 65-110 H [id number] 21:30:00* Test Item Value Reference Range Interpretation Comme nts GLUBED (test code = GLUBED) 175 mg/dL 65-110 H [id number] 15:05:00* Test Item Value Reference Range Interpretation Comme nts GLUBED (test code = GLUBED) 155 mg/dL 65-110 H [id number] 11:08:00* Test Item Value Reference Range Interpretation Comme nts GLUBED (test code = GLUBED) 90 mg/dL 65-110 N [id number] 06:38:00* Test Item Value Reference Range Interpretation Comme nts GLUBED (test code = GLUBED) 175 mg/dL 65-110 H UR CREATININE CLEARANCE [id number] 00:38:00* Test Item Value Reference Range Interpretation Comme nts CREATININE CLEARANCE RESULT (test code = CREATCLR) 164 ml/min 70-120 H CREATININE (test code = CREAT) 0.6 mg/dL 0.5-1.0 N UR CREATININE RANDOM (test c ode = CREATU) 54.7 mg/dL UR VOLUME (test code = VOL) 2600 ML UR PROTEIN [id number] 00:38:00* Test Item Value Reference Range Interpretation Comme nts UR PROTEIN RANDOM (test code = PROTU) 21.3 mg/dL UR PROTEIN 24HR (test code = KEZF63H) 554 mg/24HR 20-150 HH RESULTS CALLED Janet MICHELLE.READ BACK & CONFIRMED? YES.BY F.LAB.LGL0 11/18/22 0037.Units for 24 HR Urine Protein have changed: New Units = MG/24HR UR PROTEIN/CREATININE [id number] 23:35:00* Test Item Value Reference Range Interpretation Comme nts UR PROTEIN RANDOM (test code = PROTU) 21.3 mg/dL UR CREATININE RANDOM (test code = CREATU) 54.7 mg/dL PROTEIN/CREATININE RATIO (te st code = P/CRATIO) 389.3 mg/gcrea <200 H [id number] 22:32:00* Test Item Value Reference Range Interpretation Comme nts GLUBED (test code = GLUBED) 186 mg/dL 65-110 H [id number] 19:15:00* Test Item Value Reference Range Interpretation Comme nts GLUBED (test code = GLUBED) 259 mg/dL 65-110 H [id number] 16:59:00* Test Item Value Reference Range Interpretation Comme nts GLUBED (test code = GLUBED) 191 mg/dL 65-110 H [id number] 15:49:00* Test Item Value Reference Range Interpretation Comme nts GLUBED (test code = GLUBED) 234 mg/dL 65-110 H [id number] 12:03:00* Test Item Value Reference Range Interpretation Comme nts GLUBED (test code = GLUBED) 185 mg/dL 65-110 H [id number] 06:41:00* Test Item Value Reference Range Interpretation Comme nts GLUBED (test code = GLUBED) 291 mg/dL 65-110 H Feed, repeat 1 h r [id number] 19:32:00* Test Item Value Reference Range Interpretation Comme nts GLUBED (test code = GLUBED) 277 mg/dL 65-110 H [id number] 15:47:00* Test Item Value Reference Range Interpretation Comme nts GLUBED (test code = GLUBED) 247 mg/dL 65-110 H COMPREHENSIVE METABOLIC [id number] 13:04:00* Test Item Value Reference Range Interpretation [...] code = ALKP) 99 units/L 46-116 N [id number] 12:24:00* Test Item Value Reference Range Interpretation Comme nts GLUBED (test code = GLUBED) 222 mg/dL 65-110 H CBC W/AUTO [id number] 12:23:00* Test Item Value Reference Range Interpretation [...] PLTMR) ABNORMAL NORMAL PLT CLUMPS UR PROTEIN/CREATININE [id number] 11:47:00* Test Item Value Reference Range Interpretation Comme nts UR PROTEIN RANDOM (test code = PROTU) 36.1 mg/dL UR CREATININE RANDOM (test code = CREATU) 57.7 mg/dL PROTEIN/CREATININE RATIO (te st code = P/CRATIO) 625.6 mg/gcrea <200 H [id number] 10:40:00* Test Item Value Reference Range Interpretation Comme nts GLUBED (test code = GLUBED) 198 mg/dL 65-110 H [id number] 03:06:00* Test Item Value Reference Range Interpretation Comme nts GLUBED (test code = GLUBED) 188 mg/dL 65-110 H [id number] 22:45:00* Test Item Value Reference Range Interpretation Comme nts GLUBED (test code = GLUBED) 258 mg/dL 65-110 H Feed, repeat 1 h r AG HEPATITIS B [id number] 18:27:00* Test Item Value Reference Range Interpretation Comme nts AG HEPATITIS B SURFACE (test code = HBSAG) NONREACTIVE NONREACTIVE AB HEPATITIS C [id number] 18:27:00* Test Item Value Reference Range Interpretation Comme nts AB HEPATITIS C (test code = HCVAB) NONREACTIVE NONREACTIVE SIGNAL TO CUTOFF (test code = CUTOFF) 0.04 <0.80 N AB [id number] 18:27:00* Test Item Value Reference Range Interpretation Comme nts AB TREPONEMA (test code = TREPAB) NONREACTIVE NONREACTIVE AB HIV 1 18:27:00* Test Item Value Reference Range Interpretation Comme nts AB HIV 1 2 (test code = LYN32QH) NONREACTIVE NONREACTIVE Done by [employer] 4th Gen HIV Ag/Ab Combo Screen UR PROTEIN/CREATININE [id number] 17:55:00* Test Item Value Reference Range Interpretation Comme nts UR PROTEIN RANDOM (test code = PROTU) 13.9 mg/dL UR CREATININE RANDOM (test code = CREATU) 37.6 mg/dL PROTEIN/CREATININE RATIO (te st code = P/CRATIO) 369.6 mg/gcrea <200 H [id number] 17:41:00* Test Item Value Reference Range Interpretation Comme nts GLUBED (test code = GLUBED) 136 mg/dL 65-110 H COMPREHENSIVE METABOLIC [id number] 17:33:00* Test Item Value Reference Range Interpretation [...] thepatient's age is <18 years. CBC W/AUTO [id number] 17:14:00* Test Item Value Reference Range Interpretation [...] code = PLTMR) NORMAL NORMAL GLUCOSE BEDSIDE [id number] 13:48:00* Test Item Value Reference Range Interpretation Comme nts GLUCOSE BEDSIDE TESTING (shey t code = GLUBED) 98 MG/DL 70-119 N URIC [id number] 12:39:00* Test Item Value Reference Range Interpretation Comme nts URIC ACID (test code = URIC) 3.3 MG/DL 2.5-6.2 N Results maybe de pressed if patient is taking Metamizole(Dipyrone). LACTIC DEHYDROGENASE(LDH)2022-11-15 12:34:00* Test Item Value Reference Range Interpretation Comme nts LACTIC DEHYDROGENASE(LDH) (t est code = LDH) 204 Unit/L 84-246 N GLUCOSE BEDSIDE [id number] 08:12:00* Test Item Value Reference Range Interpretation Comme nts GLUCOSE BEDSIDE TESTING (shey t code = GLUBED) 80 MG/DL 70-119 N COMPREHENSIVE METABOLIC [id number] 05:58:00* Test Item Value Reference Range Interpretation [...] used to interpret this result as normal/abnormal. [id number] 05:58:00* Test Item Value Reference Range Interpretation Comme nts MAGNESIUM (test code = MAG) 1.7 MG/DL 1.6-2.6 N CBC W/AUTO [id number] 05:32:00* Test Item Value Reference Range Interpretation [...] NRBC#) 0.00 K/mm3 0.0-0.05 N UR PROTEIN [id number] 00:58:00* Test Item Value Reference Range Interpretation Comme nts UR PROTEIN RANDOM (test code = PROTU) 26.9 MG/DL 0.0-12.0 H UR PROTEIN [id number] 00:58:00* Test Item Value Reference Range Interpretation Comme nts UR PROTEIN 24HR (test code = GWTS52R) 619 MG/24HR 0-149 H UR [id number] 00:58:00* Test Item Value Reference Range Interpretation Comme nts UR VOLUME (test code = VOL) 2300 ML 800-2400 N - XR CHEST 1 [id number] 00:00:00 [facility] : 1990 Sex: F Patient Name: AMINTA NINO Unit No: [id number] EXAMS: CPT CODE: [id number] XR CHEST 1 V 49804 PROCEDURE INFORMATION: Exam: XR Chest Exam date and time: 11/15/2022 5:12 PM Age: 32 years old Clinical indication: Shortness of breath; Patient HX: 26 weeks ; Additional info: Pneumonia and pulmonary edema TECHNIQUE: Imaging protocol: Radiologic exam of the chest. Views: 1 view. COMPARISON: DX XR CHEST 1V 11/13/2022 2:03 PM FINDINGS: Lungs: Lungs are mildly under expanded. Pulmonaryvascular congestion is present. No confluent pulmonary opacification present. Pleural spaces: No visible pneumothorax or pleural effusion. Heart/Mediastinum: Cardiomediastinal silhouette is upper limits normal size. Bones/joints: No acute bony finding. IMPRESSION: Shallow inspiration with pulmonaryvascular congestion. Mild edema could be present. No confluent pulmonary infiltrates. at 1744 Reported and signed by: Michelet Franz MD CC: Jak Herrera MD; Tad Jordan MD; Martín Terry MD Technologist: Charles Okeefe, RT, CT Trnscrbd D/ (1744) GCD.CPS Orig Print D/T: S: 11/15/2022 (1745) [facility] NAME: AMINTA NINO MAKENZIE Radiology Department PHYS: Martín Matamoros [address] : 1990 AGE: 32 SEX: F [place], [place] [address] LOC: Júnior5048 A PHONE #: [phone] EXAM DATE: 11/15/2022 STATUS: ADM IN FAX #: [phone] RAD NO: Page 1 Signed ReportGLUCOSE BEDSIDE [id number] 21:20:00* Test Item Value Reference Range Interpretation Comme nts GLUCOSE BEDSIDE TESTING (shey t code = GLUBED) 98 MG/DL 70-119 N GLUCOSE BEDSIDE [id number] 15:37:00* Test Item Value Reference Range Interpretation Comme nts GLUCOSE BEDSIDE TESTING (shey t code = GLUBED) 222 MG/DL 70-119 H GLUCOSE BEDSIDE [id number] 11:28:00* Test Item Value Reference Range Interpretation Comme nts GLUCOSE BEDSIDE TESTING (shey t code = GLUBED) 238 MG/DL 70-119 H GLUCOSE BEDSIDE [id number] 07:28:00* Test Item Value Reference Range Interpretation Comme nts GLUCOSE BEDSIDE TESTING (shey t code = GLUBED) 178 MG/DL 70-119 H COMPREHENSIVE METABOLIC [id number] 06:01:00* Test Item Value Reference Range Interpretation [...] interpret this result as normal/abnormal. CBC W/AUTO [id number] 05:44:00* Test Item Value Reference Range Interpretation [...] NRBC#) 0.00 K/mm3 0.0-0.05 N GLUCOSE BEDSIDE [id number] 20:17:00* Test Item Value Reference Range Interpretation Comme [facility] GLUCOSE BEDSIDE TESTING (shey t code = GLUBED) 224 MG/DL 70-119 H UR PROTEIN/CREATININE [id number] 19:58:00* Test Item Value Reference Range Interpretation Comme [facility] UR PROTEIN RANDOM (test code = PROTU) 39.2 MG/DL 0.0-12.0 H UR CREATININE RANDOM (test c ode = CREATU) 89.4 MG/DL 30-150 N PROTEIN/CREATININE RATIO (te st code = P/CRATIO) 438.0 MG/GRAM 0.0-200.0 H GLYCOSYLATED HEMOGLOBIN (HA1C)2022-11-13 19:57:00* Test Item Value Reference Range Interpretation Comme [facility] GLYCOSYLATED HEMOGLOBIN (HA1 C) (test code = GLYHGB) 6.6 % IS-A1C 4.5-5.6 H GLUCOSE BEDSIDE [id number] 17:32:00* Test Item Value Reference Range Interpretation Comme [facility] GLUCOSE BEDSIDE TESTING (test code = GLUBED) 229 MG/DL 70-119 H Notified Nu rse~ - US FET BIO PH OK W/O [id number] 16:18:00 [facility] AM[facility] : 1990 Sex: F Patient Name: AMINTA NINO Unit No: [id number] EXAMS: CPT CODE: [id number] US FET BIO PHPR W/O NST 57588 EXAM: - US FET BIO PH OK W/O NST HISTORY: well being 25.6 weeks [...] 8. 3. MATHEUS lower normal at 7.45 at 1618 Reported and signed by: Misha Forman MD CC: Ronnell Davalos MD; Tad Jordan MD Technologist: Thu Malloy Trnscrbd D/ (1618) t.[email or web address] Probe: Orig Print D/T: S: 11/13/2022 (1621) Probe: ADAMARIS Andrade NAME: AMINTA NINO [address] PHYS: Ronnell Abb[place], [place] [address] : 1990 AGE: 32 SEX: F LOC: ARELIS Miranda PHONE #: [phone] EXAM DATE: 11/13/2022 STATUS: ADM IN FAX #: [phone] RAD NO: Page 1 Signed ReportB- TYPE NATRIURETIC [id number] 15:31:00* Test Item Value Reference Range Interpretation Comme nts B-TYPE NATRIURETIC PEPTIDE (test code = BNP) < 30.00 PG/ML 0.00-100.00 N TROP-I HIGH [id number] 15:24:00* Test Item Value Reference Range Interpretation [...] and URLs may vary bymethod. BASIC METABOLIC [id number] 15:20:00* Test Item Value Reference Range Interpretation [...] used to interpret this result as normal/abnormal. [id number] 15:17:00* Test Item Value Reference Range Interpretation Comme nts D-DIMER (test code = DDIMER) 295 FEUng/mL 0-500 N THE CUT-OFF VALU E FOR EXCLUSION OF VTE = 500 FEU ng/mLNOTE: This method must be used with additional tests in theevaluation of VTE and should not be used to exclude VTE withpretest probability alone. VENOUS BLOOD GAS [id number] 15:12:00* Test Item Value Reference Range Interpretation Comme [facility] VENOUS BLOOD GAS PH (test co de = PHV) 7.41 pH units 7.32-7.42 N VENOUS BLOOD GAS [id number] 15:12:00* Test Item Value Reference Range Interpretation Comme [facility] VENOUS BLOOD GAS PCO2 (test code = PCO2V) 31 mmHg 41-51 L VENOUS BLOOD GAS [id number] 15:12:00* Test Item Value Reference Range Interpretation Comme [facility] VENOUS BLOOD GAS PO2 (test c ode = PO2V) 70 mmHg 25-40 H VBG [id number] 15:12:00* Test Item Value Reference Range Interpretation Comme [facility] VBG HCO3 (test code = HCO3V) 19.7 mmol/L 24-28 L VENOUS BLOOD GAS [id number] 15:12:00* Test Item Value Reference Range Interpretation Comme [facility] VENOUS BLOOD GAS SITE (test code = SITEV) Venous Site DESCRIPTION CBC W/O [id number] 15:09:00* Test Item Value Reference Range Interpretation Comme [facility] WHITE BLOOD CELL (test code = WBC) [...] 9.6 fL 6.8-11.2 N COVID 19 INHOUSE [id number] 15:06:00* Test Item Value Reference Range Interpretation Comme nts COVID 19 INHOUSE AG (test co de = [id number]) Negative Neg UA RFLX MICR CULT IF [id number] 14:52:00* Test Item Value Reference Range Interpretation [...] Cult byWBC Indication for culture: Dysuria/FrequencyUA DESCRIPTION: BLADDER- XR CHEST 1 V 2022-11-13 14:17:00 [facility] : 1990 Sex: F FAX: Giovana Davies APRN D Hanis: E St: [facility] FAX: Tad Ramos MD [phone] Patient Name: AMINTA NINO Unit No: [id number] EXAMS: CPT CODE: [id number] XR CHEST 1 V 54291 Location: EXAM: - XR CHEST 1 V DATE: 11/13/2022 1:41 PM HISTORY: Shortness of breath COMPARISON: None FINDINGS: No airspace consolidation or pleural effusions. No pneumothorax. Diffuse interstitial opacities in both lungs. The cardiovascular silhouette is within normal limits. No bony lesions. IMPRESSION: Diffuse interstitial opacities in both lungs due to pulmonary edema versus pneumonia. at 1417 Reported and signed by: Monse Lockhart MD CC: Giovana Davies; Simone Jordan MD Dictated Date/Time: 11/13/2022 (1292)Technologist: Bryan Vaz Transcribed Date/Time: 11/13/2022 (6228) By: Zena Orig Print D/T: S: 11/13/2022 (4039) ADAMARIS Andrade NAME: AMINTA NINO [address] [place] [address] Bl PHYS: CAMRA01 - Giovana Davies, [place] [address] : 1990 AGE: 32 SEX: F LOC: [facility] PHONE #: [phone] EXAM DATE: 11/13/2022 STATUS: REG ER FAX #: [phone] RAD NO: DC Dt: PAGE 1 Signed ReportBETA HCG [id number] 23:43:00* Test Item Value Reference Range Interpretation Comme nts BHCG II (test code = BHCGII) 19579.0 mIU/L 0.0-4.8 H A NEW EXPANDED M [...] IU/L GESTATIONAL AGE: 1-10 weeks 63.70 - 486700.00 IU/L 11-15 weeks 55398.00 - 036071.00 IU/L 16-22 weeks 9383.80 - 64953.00 IU/L 23-40 weeks 1737.20 - 14211.00 IU/L Detection of very Low Levels of hCG does not exclude . Repeat testing after 48 Hrs. is recommended. THIS ASSAY SHOULD NOT BE USED TO DIAGNOSE ANY CONDITION UNRELATED TO . [id number] 23:27:00* Test Item Value Reference Range Interpretation Comme nts Rh (test code = RH) Positive Weak D (Du) (test code = DU) N/A [id number] 23:27:00* Test Item Value Reference Range Interpretation Comme nts ABO Blood Type (test code = ABO) A STLMLPREGNANCY TEST, Serum Hewoapjsmgc8883-00-58 23:14:00* Test Item Value Reference Range Interpretation Comme nts (Serum) (test code = PREGS) Positive Negative A STLMLCBC WITH AUTO [id number] 23:02:00* Test Item Value Reference Range Interpretation [...] % 0.0-0.4 H STLMLURINALYSIS WITH REFLEX TO [id number] 22:51:00* Test Item Value Reference Range Interpretation Comme nts Color (test code = UCOLR) Yellow Clarity (test code = UCLAR) Clear Glucose (test code = UGLUC) 100 NEGATIVE A Bilirubin (test code = UBILI) NEGATIVE NEGATIVE N Ketones (test code = UKET) NEGATIVE NEGATIVE N Specific [place] (test code = USPGR) 1.010 1.005-1.030 A Blood (test code = UBLD) NEGATIVE NEGATIVE N PH (test code = UPH) 7.0 4.5-8.0 A Protein (test code = UPROT) NEGATIVE NEGATIVE N Urobilinogen (test code = U UROB) 2.0 See_Comment A [Automated [employer] ge] The system which generated this result [...] None Seen None Seen N STLMLGLUCOSE BEDSIDE [id number] 08:05:00* Test Item Value Reference Range Interpretation Comme nts GLUCOSE BEDSIDE TESTING (shey t code = GLUBED) 126 MG/DL 70-119 H GLUCOSE BEDSIDE [id number] 20:34:00* Test Item Value Reference Range Interpretation Comme nts GLUCOSE BEDSIDE TESTING (shey t code = GLUBED) 163 MG/DL 70-119 H GLUCOSE BEDSIDE [id number] 15:27:00* Test Item Value Reference Range Interpretation Comme nts GLUCOSE BEDSIDE TESTING (shey t code = GLUBED) 174 MG/DL 70-119 H GLUCOSE BEDSIDE [id number] 11:20:00* Test Item Value Reference Range Interpretation Comme nts GLUCOSE BEDSIDE TESTING (shey t code = GLUBED) 115 MG/DL 70-119 N GLUCOSE BEDSIDE [id number] 07:50:00* Test Item Value Reference Range Interpretation Comme nts GLUCOSE BEDSIDE TESTING (shey t code = GLUBED) 88 MG/DL 70-119 N GLUCOSE BEDSIDE [id number] 00:15:00* Test Item Value Reference Range Interpretation Comme nts GLUCOSE BEDSIDE TESTING (shey t code = GLUBED) 182 MG/DL 70-119 H GLUCOSE BEDSIDE [id number] 20:50:00* Test Item Value Reference Range Interpretation Comme nts GLUCOSE BEDSIDE TESTING (shey t code = GLUBED) 320 MG/DL 70-119 H COMPREHENSIVE METABOLIC [id number] 18:58:00* Test Item Value Reference Range Interpretation [...] as normal/abnormal. UA RFLX MICR CULT IF [id number] 18:47:00* Test Item Value Reference Range Interpretation [...] for culture: Dysuria/FrequencyUA DESCRIPTION: CLEAN CATCHCBC W/AUTO [id number] 18:38:00* Test Item Value Reference Range Interpretation [...] 0.0-0.05 N UA RFLX MICR CULT IF [id number] 18:31:00* Test Item Value Reference Range Interpretation [...] CULT-N/A Criteria Cult byW Indication for culture: RiskForSepsis-no oth srcUA DESCRIPTION: CLEAN CATCH GLUCOSE BEDSIDE [id number] 18:14:00* Test Item Value Reference Range Interpretation Comme nts GLUCOSE BEDSIDE TESTING (shey t code = GLUBED) 221 MG/DL 70-119 H - XR SHOULDER 2 + V [id number] 17:23:00 [facility] : 1990 Sex: F FAX: Tad Ramos MD [phone] D Hanis: St: [facility] FAX: Renita Winters MD [phone] Patient Name: MELODY NINO Unit No: [id number] EXAMS: CPT CODE: [id number] XR SHOULDER 2 + [place] [address] Location: C3 EXAM: - XR SHOULDER 2 + V RT INDICATION: fall, 11 wk please shield COMPARISON: None TECHNIQUE: 3 views of the right shoulder. FINDINGS: There is [...] completely exclude on the basis of this imaging.Consider correlation with point tenderness. 2. No other acute bony abnormality. at 1723 Reported and signed by: Pasha Agrawal MD CC: Tad Jordan MD; Renita Ballard MD Dictated Date/Time: 08/10/2022 (1723)Technologist: ESTEFANI RAMIREZ Transcribed Date/Time: 08/10/2022 (1722) By: RashidaGS29 Orig Print D/T: S: 08/10/2022 (1726) ADAMARIS Andrade NAME: AMINTA NINO [address] [place] [address] Blvd PHYS: Renita Khan [place], [place] [address] : 1990 AGE: 32 SEX: F LOC: [facility] PHONE #: [phone] EXAM DATE: 08/10/2022 STATUS: REG ER FAX #: [phone] RAD NO: DC Dt: PAGE 1 Signed ReportGLUCOSE BEDSIDE [id number] 15:43:00* Test Item Value Reference Range Interpretation Comme nts GLUCOSE BEDSIDE TESTING (shey t code = GLUBED) 320 MG/DL 70-119 H HCG SERUM [id number] 15:09:00* Test Item Value Reference Range Interpretation Comme nts HCG SERUM QUAL (test code = HCGQL) Positive SCREEN NEG A TROP-I HIGH [id number] 14:57:00* Test Item Value Reference Range Interpretation [...] and URLs may vary bymethod. BASIC METABOLIC [id number] 14:49:00* Test Item Value Reference Range Interpretation [...] used to interpret this result as normal/abnormal. [id number] 14:49:00* Test Item Value Reference Range Interpretation Comme nts MAGNESIUM (test code = MAG) 1.8 MG/DL 1.6-2.6 N CBC W/O [id number] 14:36:00* Test Item Value Reference Range Interpretation [...] ode = MPV) 9.3 fL 6.8-11.2 N [id number] 14:32:00* Test Item Value Reference Range Interpretation Comme nts MODALITY (test code = MOD) RA COMMENT DESCRIPTION VENOUS BLOOD GAS [id number] 14:32:00* Test Item Value Reference Range Interpretation Comme [facility] VENOUS BLOOD GAS PH (test co de = PHV) 7.40 pH units 7.32-7.42 N VENOUS BLOOD GAS [id number] 14:32:00* Test Item Value Reference Range Interpretation Comme [facility] VENOUS BLOOD GAS PCO2 (test code = PCO2V) 39 mmHg 41-51 L VENOUS BLOOD GAS [id number] 14:32:00* Test Item Value Reference Range Interpretation Comme [facility] VENOUS BLOOD GAS PO2 (test c ode = PO2V) 42 mmHg 25-40 H VBG [id number] 14:32:00* Test Item Value Reference Range Interpretation Comme [facility] VBG HCO3 (test code = HCO3V) 23.9 mmol/L 24-28 L VENOUS BLOOD GAS [id number] 14:32:00* Test Item Value Reference Range Interpretation Comme [facility] VENOUS BLOOD GAS SITE (test code = SITEV) Venous Site DESCRIPTION GLUCOSE BEDSIDE [id number] 13:47:00* Test Item Value Reference Range Interpretation Comme [facility] GLUCOSE BEDSIDE TESTING (shey t code = GLUBED) 320 MG/DL 70-119 H HEPATIC FUNCTION [id number] 17:12:00* Test Item Value Reference Range Interpretation Comme [facility] TOTAL PROTEIN (test code = PROT) 7.5 [...] ALKP) 83 Unit/L 45-117 N Specimen comments: [id number] 17:12:00* Test Item Value Reference Range Interpretation Comme [facility] LIPASE (test code = LIP) 134 Unit/L 114-286 N Specimen comments: [facility] [id number] 17:12:00* Test Item Value Reference Range Interpretation Comme [facility] HCG SERUM (test code = HCG) 48947 mi-IU/ML 0-3 H HCG RANGES JUS Olivo NORMAL PREGNANCYPOST LMP 3-4 WEEKS 9 - 130 MIU/ML4-5 WEEKS 75 - 2,600 MIU/ML5-6 WEEKS 850 - 20,800 MIU/ML6-7 WEEKS 4,000 - 100,200 MIU/ML7-12 WEEKS 11,500 - 289,000 MIU/ML12-16 WEEKS 18,300 - 137,000 MIU/ML16-29 WEEKS 1,400 - 53,000 MIU/ML 29-41 WEEKS 940 - 60,000 MIU/ML Specimen comments: [facility] METABOLIC [id number] 17:12:00* Test Item Value Reference Range Interpretation [...] Specimen comments: ccUA RFLX MICR CULT IF [id number] 16:47:00* Test Item Value Reference Range Interpretation [...] culture: Suprapubic PainUA DESCRIPTION: CLEAN CATCHCBC W/O [id number] 16:40:00* Test Item Value Reference Range Interpretation [...] Specimen comments: cc- US PREG EVAL 1ST [id number] 16:25:00 [facility] : 1990 Sex: F Patient Name: AMINTA NINO Unit No: [id number] EXAMS: CPT CODE: [id number] US PREG EVAL 1ST TRIMTR 36408 EXAM: - US PREG UT TRANSVAGINAL, - US PREG EVAL 1ST TRIMTR INDICATION: 12 weeks TECHNIQUE: Transabdominal, and transvaginalpelvic ultrasound was performed. Grayscale, color Doppler and Doppler with spectral imaging. Location: T18. FINDINGS: Uterus: measures 12 x 7.2 x 8.2 cm. There is a single live intrauterine noted at 11 weeks 6 days gestation. The heartrate is 164 bpm. Right ovary: measures 3.6 x 2.6 x 2.4 cm. Corpus luteal cyst noted measuring 2 cm in size. Ovarian blood flow is documented by [...] 1625 Reported and signed by: Quinn Ngo [facility]: Andrea Garcia MD; Tad Jordan MD Technologist: Alba Sorto Trnscrbd D/ ([id number]) [email or web address] Probe: Orig Print D/T: S: 08/07/2022 (6757) Probe: ADAMARIS Andrade NAME: AMINTA NINO [facility] PHYS: Andrea Zarate MD [address] [place] [address] BLVD : 1990AGE: 32 SEX: STEPHANIE [place] [phone] LOC: [facility] PHONE #: [phone] EXAM DATE: 08/07/2022 STATUS: REG ER FAX #: [phone] RAD NO: Page 1 Signed Report- US PREG UT [id number] 16:25:00 [facility] : 1990 Sex: F Patient Name: AMINTA NINO Unit No: [id number] EXAMS: CPT CODE: [id number] US PREG UT TRANSVAGINAL 16023 EXAM: - US PREG UT TRANSVAGINAL, - [...] at 1625 Reported and signed by: Quinn Ngo, [facility]: Tad Jordan MD; Lydia HECK Technologist: Alba Sorto Trnscrbd D/ ([id number]) [email or web address] Probe: [id number] Orig Print D/T: S: 08/07/2022 (3468) Probe: ADAMARIS Andrade NAME: AMINTA NINO [address] PHYS: Lydia Will, [place] [address] : 1990 AGE: 32 SEX: F LOC: [facility] PHONE #: [phone] EXAM DATE: 08/07/2022STATUS: REG ER FAX #: [phone] RAD NO: Page 1 Signed ReportGLUCOSE BEDSIDE TESTING 2022-08-07 15:47:00* Test Item Value Reference Range Interpretation Comme nts GLUCOSE BEDSIDE TESTING (shey t code = GLUBED) 264 MG/DL 70-119 H [id number] 23:10:00* Test Item Value Reference Range Interpretation [...] use a race coefficient. STLMLCBC WITH AUTO [id number] 23:02:00* Test Item Value Reference Range Interpretation [...] % 0.0-0.4 H STLMLURINALYSIS WITH REFLEX TO [id number] 22:51:00* Test Item Value Reference Range Interpretation Comme nts Color (test code = UCOLR) Yellow Clarity (test code = UCLAR) Clear Glucose (test code = UGLUC) >=1000 NEGATIVE A Bilirubin (test code = UBILI) NEGATIVE NEGATIVE N Ketones (test code = UKET) TRACE NEGATIVE A Specific [place] (test code = USPGR) 1.015 1.005-1.030 A Blood (test code = UBLD) NEGATIVE NEGATIVE N PH (test code = UPH) 7.0 4.5-8.0 A Protein (test code = UPROT) NEGATIVE NEGATIVE N Urobilinogen (test code = U UROB) 1.0 See_Comment A [Automated [employer]] The system which generated this result transmitted reference range: 0.2. The reference range was not used to interpret this result as normal/abnormal. Nitrite (test code = UNITR) NEGATIVE NEGATIVE N Leukocyte Esterase (test code = ULEUK) NEGATIVE NEGATIVE N STLMLCULTURE, [id number] 09:22:00Specimen: Urine SpecimensCollected: 07/20/2022 18:53 Status: Final Last Updated: 07/22/2022 09:22 CULTURE (Final) (Final) >100,000 cc/mL Streptococcus species Few Mixed Body Lali Also Isolated Isolate (Final) (Final) Streptococcus agalactiae This organism may be significant in women of childbearing age due tothe occurance of meningitis.STLMLBETA HCG [id number] 19:32:00* Test Item Value Reference Range Interpretation Comme nts BHCG II (test code = BHCGII) 42220.0 mIU/L 0.0-4.8 H A NEW EXPANDED M [...] IU/L GESTATIONAL AGE: 1-10 weeks 63.70 - 214512.00 IU/L 11-15 weeks 85004.00 - 839672.00 IU/L 16-22 weeks 9383.80 - 37356.00 IU/L 23-40 weeks 1737.20 - 47404.00 IU/L Detection of very Low Levels of hCG does not exclude . Repeat testing after 48 Hrs. is recommended. THIS ASSAY SHOULD NOT BE USED TO DIAGNOSE ANY CONDITION UNRELATED TO . [id number] 19:22:00* Test Item Value Reference Range Interpretation Comme nts ABO Blood Type (test code = ABO) A [id number] 19:21:00* Test Item Value Reference Range Interpretation Comme nts Rh (test code = RH) Positive Weak D (Du) (test code = DU) N/A [id number] 19:20:00* Test Item Value Reference Range Interpretation [...] a race coefficient. STLMLURINALYSIS WITH REFLEX TO [id number] 19:01:00* Test Item Value Reference Range Interpretation Comme nts Color (test code = UCOLR) Yellow Clarity (test code = UCLAR) Cloudy Glucose (test code = UGLUC) 250 NEGATIVE A Bilirubin (test code = UBILI) NEGATIVE NEGATIVE N Ketones (test code = UKET) TRACE NEGATIVE A Specific [place] (test code = USPGR) 1.015 1.005-1.030 A [...] A value of TNTC was entered by [employer] on 07/20/2022 19:01 RBC (test code = RBCUR) None Seen 0-5 A No previous valu e was reported. A value of None Seen was entered by [employer] on 07/20/2022 19:01 Epithial Cells (test code = U EPI) TNTC 0-10 A No previous value was reported. A value of TNTC was entered by [employer] on 07/20/2022 19:01 Mucous (test code = UMUC) Trace None Seen A No previous valu e was reported. A value of Trace was entered by [employer] on 07/20/2022 19:01 Bacteria (test code = UBACT) 2+ None Seen,Trace A No previous valu e was reported. A value of 2+ was entered by [employer] on 07/20/2022 19:01 Urine Misc (test code = UR MISC) Few Trichomonas Vaginalis None Seen A No previous value was reported. A value of Few Trichomonas Vaginalis was entered by [employer] on 07/20/2022 19:01 STLMLCBC WITH AUTO [id number] 18:50:00* Test Item Value Reference Range Interpretation [...] 0.0-0.4 H STLMLUA RFLX MICR CULT IF [id number] 19:56:00* Test Item Value Reference Range Interpretation [...] srcSOURCE OF URINE: CLEAN CATCH BASIC METABOLIC [id number] 19:35:00* Test Item Value Reference Range Interpretation [...] < 15 Index/DL 0-100 N CBC W/AUTO [id number] 19:23:00* Test Item Value Reference Range Interpretation [...] 0.03 x10 3/uL 0.0-0.1 N URINALYSIS WITH [id number] 19:46:00* Test Item Value Reference Range Interpretation Comme nts Color (test code = UCOLR) Yellow Clarity (test code = UCLAR) Sl Cloudy Glucose (test code = UGLUC) >=1000 NEGATIVE A Bilirubin (test code = UBILI) NEGATIVE NEGATIVE N Ketones (test code = UKET) >=80 NEGATIVE A Specific [place] (test code = USPGR) 1.010 1.005-1.030 A Blood (test code = UBLD) NEGATIVE NEGATIVE N PH (test code = UPH) 6.0 4.5-8.0 A Protein (test code = UPROT) NEGATIVE NEGATIVE N Urobilinogen (test code = U UROB) 0.2 See_Comment N [Automated [employer]] The system which generated this result [...] UBACT) 1+ None Seen,Trace A STLMLBETA HCG [id number] 19:45:00* Test Item Value Reference Range Interpretation [...] IU/L GESTATIONAL AGE: 1-10 weeks 63.70 - 946303.00 IU/L 11-15 weeks 93054.00 - 363571.00 IU/L 16-22 weeks 9383.80 - 80665.00 IU/L 23-40 weeks 1737.20 - 10646.00 IU/L Detection of very Low Levels of hCG does not exclude . Repeat testing after 48 Hrs. is recommended. THIS ASSAY SHOULD NOT BE USED TO DIAGNOSE ANY CONDITION UNRELATED TO . STLMLPREGNANCY TEST, Urine Hypzmvdjnim6964-15-97 19:24:00* Test Item Value Reference Range Interpretation Comme nts (Urine) (test code = PREGU) Positive If a specimen is collected by a nurse, then you MUST fill out the Collected and Collected By snyder [id number] 19:16:00* Test Item Value Reference Range Interpretation [...] use a race coefficient. STLMLCBC WITH AUTO [id number] 18:47:00* Test Item Value Reference Range Interpretation [...] % 0.0-0.4 STLMLParathyrin.intact [Mass/volume] in Serum or Ramvbm9337-61-14 00:00:00* Test Item Value Reference Range Interpretation Comme nts PTH (test code = PTH) 32.00 pg/mL 15.00-65.00 [facility] MedicalIron and Iron binding capacity panel - Serum or [id number] 00:00:00* Test Item Value Reference Range Interpretation Comme nts iron (test code = iron) 93 ug/dL 37-145 UIBC (test code = UIBC) 313 ug/dL 112-347 TIBC (test code = TIBC) 406.0 [facility] MedicalMagnesium [Mass/volume] in Serum or [id number] 00:00:00* Test Item Value Reference Range Interpretation Comme nts magnesium (test code = magnesium) 1.9 mg/dL 1.6-2.6 [facility] 125 [Units/volume] in Serum or [id number] 00:00:00 * Test Item Value Reference Range Interpretation Comme nts CA-125 (test code = CA-125) 35.6 U/mL 6.4-38.1 [facility] Center[facility]rol[facility] [Mass/volume] in Serum or [id number] 00:00:00* Test Item Value Reference Range Interpretation Comme nts prolactin (test code = prolactin) 11.5 NG/mL 4.8-23.3 [facility], [id number] 00:00:00* Test Item Value Reference Range Interpretation Comme nts TSH (test code = TSH) 1.390 uIU/mL 0.178-4.530 free T4 (test code = free T4) 1.27 NG/dL 0.80-1.73 total T4 (test code = total T4) 10.7 ug/dL 4.9-11.9 T-uptake (test code = T-uptake) 1.2 tbi 0.8-1.3 [facility] CenterProgesterone Free [Mass/volume] in Serum or [id number] 00:00:00* Test Item Value Reference Range Interpretation Comme nts progesterone (test code = progesterone) 12.00 NG/mL [facility] CenterLdodalq80-Kkhbmyleejdlek D3+25-Hydroxyvitamin D2 [Mass/volume] in Serum or Qcwfmo9195-34-88 00:00:00* Test Item Value Reference Range Interpretation Comme nts vitamin D III (test code = v itamin D III) 26.1 NG/mL 32.0-100.0 L [facility] CenterFolate+Cyanocobalamin [Interpretation] in Serum or [id number] 00:00:00* Test Item Value Reference Range Interpretation Comme nts folate (test code = folate) 23.90 NG/mL 2.00-20.00 H vitamin B12 (test code = vit mejias B12) 775.0 pg/mL 200.0-900.0 [facility] CenterGkzkognAWH3087-69-52 16:28:00* Test Item Value Reference Range Interpretation [...] use a race coefficient. STLMLCBC WITH AUTO [id number] 16:06:00* Test Item Value Reference Range Interpretation [...] % 0.0-0.4 H STLMLURINALYSIS WITH REFLEX TO [id number] 15:47:00* Test Item Value Reference Range Interpretation Comme nts Color (test code = UCOLR) Yellow Clarity (test code = UCLAR) Hazy Glucose (test code = UGLUC) >=1000 NEGATIVE A Bilirubin (test code = UBILI) NEGATIVE NEGATIVE N Ketones (test code = UKET) >=80 NEGATIVE A Specific [place] (test code = USPGR) 1.010 1.005-1.030 A Blood (test code = UBLD) NEGATIVE NEGATIVE N PH (test code = UPH) 5.5 4.5-8.0 A Protein (test code = UPROT) NEGATIVE NEGATIVE N Urobilinogen (test code = U UROB) 0.2 See_Comment N [Automated [employer]] The system which generated this result [...] 1+ None Seen,Trace A STLMLPREGNANCY TEST, Urine Zueetihneci6683-92-03 15:36:00* Test Item Value Reference Range Interpretation Comme nts (Urine) (test code = PREGU) Positive STLMLChoriogonadotropin.beta subunit [Units/volume] in Serum or [id number] 00:00:00* Test Item Value Reference Range Interpretation Comme nts HCG (test code = HCG) 111 mIU/mL [facility] MedicalACETONE SERUM - BHB (IN HOUSE)2022-05-26 16:45:00* Test Item Value Reference Range Interpretation Comme nts ACETONE QUANTITATIVE SERUM ( test code = ACESER) 22.25 mg/dl 0.20-2.81 H [id number] 14:44:00* Test Item Value Reference Range Interpretation [...] a race coefficient. STLMLXR CHEST AP/PA 1 [id number] 14:40:58 [facility])Name: AMINTA NINO : 1990 Sex: FXR CHEST AP/PA 1 VIEW05/26/2022 1:58 PMOrdering Provider: GENOVEVA BRUNERIndication: [id number]: Chest painAdditional history:No additional history.Comparison: NoneFindings: Lung snyder are clear.Heart size is normal..No bone lesions are identified.EKG monitoring wires and clips minimally obscure the underlying structures.Impression: No acute cardiopulmonary process.This final report was electronically signed by Dr Carlos Lindquist MD 32:35 PMDictated By: Jacy LINDQUISTte: 05/26/2022 14:35STLMLURINALYSIS WITH [id number] 13:45:00* Test Item Value Reference Range Interpretation Comme nts Color (test code = UCOLR) Yellow Clarity (test code = UCLAR) Hazy Glucose (test code = UGLUC) 500 NEGATIVE A Bilirubin (test code = UBILI) NEGATIVE NEGATIVE N The value SMALL originally released by [id number] on 05/26/2022 13:45 was changed to NEGATIVE by [id number] on 05/26/2022 13:45 Ketones (test code = UKET) >=80 NEGATIVE A Specific [place] (test code = USPGR) 1.025 1.005-1.030 A [...] Yeast None Seen A STLMLPREGNANCY TEST, Urine Oagpmicznqe8227-93-60 13:42:00* Test Item Value Reference Range Interpretation Comme nts (Urine) (test code = PREGU) Negative STLMLCBC WITH AUTO [id number] 13:40:00* Test Item Value Reference Range Interpretation [...] = IG%) 0.4 % 0.0-0.4 STLMLCOMPREHENSIVE METABOLIC [id number] 17:05:00* Test Item Value Reference Range Interpretation [...] < 15 Index/DL 0-100 N HCG SERUM [id number] 17:05:00* Test Item Value Reference Range Interpretation Comme nts HCG SERUM QUAL (test code = HCGQL) NEGATIVE NEGATIVE CBC W/AUTO [id number] 16:24:00* Test Item Value Reference Range Interpretation [...] BA#) 0.03 x10 3/uL 0.0-0.1 N - [facility] W/CXZBJLNANIL0556-00-60 14:59:00 [facility] WOODName: MICA AMINTA BANEGAS : 1990 Sex: F FAX: MayColette [phone] D Hanis: St: REG Name: AMINTA NINO [facility] : 1990 Age/S: 31/F [address] Unit #: [id number] Loc: [place] [address] Phys: Colette Panda Acct: [id number] Dis Date: Status: REG ER PHONE #: [phone] Exam Date: 04/10/2022 1446 FAX #: [phone] Reason: MIKE BREAST, R/O ABSCESS EXAMS: CPT CODE: [id number] US CHST W/MEDIASTINUM [id number] Bilateral breast ultrasound 04/10/2022 CLINICAL INDICATION: Breast pain COMPARISON: None LOCATION: W1 TECHNIQUE: Grayscale and color ultrasound of the bilateral breasts was performed. DISCUSSION: No mass, calcification, fluid collection, or abnormal vascularity is evident within either visualized breast. IMPRESSION: Unremarkable bilateral breast ultrasound. Advise correlation with mammography to exclude nonvisualized pathology. at 5584 Reported and signed by: Bebeto Montes De Oca MD CC: Colette Panda Technologist: Bhargavi Stout Trnwvrd Date/Time/By: 04/10/2022 (8558) : By: [email or web address] PAGE 1 Signed Report FAX: Colette Panda [phone] D Hanis: [facility]: REG Name: AMINTA NINO [facility] L[place]na : 1990 Age/S: 31/F [address] Unit #: [id number] Loc: [place] [address] Phys: Colette Panda APRNNP Acct: [id number] Dis Date: Status: REG ER PHONE #: [phone] Exam Date: 04/10/2022 0296 FAX #: [phone] Reason: MIKE BREAST, R/O ABSCESS EXAMS: CPT CODE: [id number] CHST W/MEDIASTINUM 12569 (Continued) Orig Print D/T: S: 04/10/2022 (1502) PAGE 2 Signed ReportCULTURE, AEROBIC 2022-03-30 08:32:00MUST order Gram Stain separately WOUNDSSpecimen: VaginalCollected: 03/27/2022 12:38 Status: Final Last Updated: 03/30/2022 08:32 (1) MUST order Gram Stain separately WOUNDS CULTURE (Final) (Final) Many Normal Genital Alli Isolated No Pathogens IsolatedSTLMLGRAM [id number] 11:28:00 Must order gram stain separately with aerobic cultSpecimen: VaginaCollected: 03/27/2022 12:38 Status: Final Last Updated: 03/28/2022 11:28 (1) Must order gram stain separately with aerobic cult GS (Final) (Final) Few Epithelial Cells No WBC's Seen Usual Urogenital Lali Rare YeastSTLMLWET [id number] 13:31:00 Specimen: VaginalCollected: 03/27/2022 12:38 Status: Final Last Updated: 03/27/2022 13:21 WM (Final) (Final) No Clue cells seen. No Trichomonas seen. No yeast cells seen. Moderate epithelial cells and WBCs .STLMLURINALYSIS WITH REFLEX TO [id number] 13:13:00* Test Item Value Reference Range Interpretation Comme nts Color (test code = UCOLR) Straw Clarity (test code = UCLAR) Hazy Glucose (test code = UGLUC) >=1000 NEGATIVE A Bilirubin (test code = UBILI) NEGATIVE NEGATIVE N Ketones (test code = UKET) >=80 NEGATIVE A Specific [place] (test code = USPGR) 1.010 1.005-1.030 A [...] MISC) Rare Yeast cells None Seen A [id number] 13:11:00* Test Item Value Reference Range Interpretation [...] failure. Critical values were called to PINA GOLDSTEIN by [id number] on 03/27/22 13:11 . Results were readback by PINA GOMEZ/DAGMAR.STLMLPREGNANCY TEST, Urine [id number] 12:51:00* Test Item Value Reference Range Interpretation Comme nts (Urine) (test code = PREGU) Negative STLMLCBC WITH AUTO [id number] 12:43:00* Test Item Value Reference Range Interpretation [...] code = IG%) 0.5 % 0.0-0.4 H STLMLThyroglobulin Ab [Units/volume] in Serum or [id number] 00:00:00* Test Item Value Reference Range Interpretation Comme nts anti-thyroglobulin (test cod e = anti-thyroglobulin) <20 <40 [facility]2023-01-03 00:00:00* Test Item Value Reference Range Interpretation [...] code = E-GFR) 128 mL/min See_Comment [Automated LitRes] The system which generated this result transmitted reference range: >or=60. The reference range was not used to interpret this result as normal/abnormal. E-GFR, (test code = E-GFR, ) 148 mL/min See_Comment [Usarium] The system which generated this result transmitted [...] (test code = lipoprotein-A) <6.0 <30.0 [facility] MedicalThyroperoxidase Ab [Units/volume] in Serum or [id number] 00:00:00* Test Item Value Reference Range Interpretation Comme nts anti-tpo Ab (test code = anti-tpo Ab) <10 <35 [facility] MedicalUrate [Mass/volume] in Serum or [id number] 00:00:00* Test Item Value Reference Range Interpretation Comme nts uric acid (test code = uric acid) 3.1 mg/dL 2.5-7.9 [facility] Center[facility]rogen [Mass/volume] in Serum or [id number] 00:00:00* Test Item Value Reference Range Interpretation Comme nts estradiol (test code = estradiol) 85.14 pg/mL see below estriol, unconjugated (test code = estriol, unconjugated) <0.1 see below estrone (E1), serum (test co de = estrone (E1), serum) 37.5 pg/mL see below [facility] [id number] 23:55:00* Test Item Value Reference Range Interpretation [...] were called to Kathy Bernal RN by [id number] on 01/01/22 23:55 . Results were read back by Kathy Bernal RN.STLMLURINALYSIS WITH MICROSCOPIC 2022-01-01 23:28:00* Test Item Value Reference Range Interpretation Comme nts Color (test code = UCOLR) Lt. Yellow Clarity (test code = UCLAR) Clear Glucose (test code = UGLUC) >=1000 NEGATIVE A Bilirubin (test code = UBILI) NEGATIVE NEGATIVE N Ketones (test code = UKET) TRACE NEGATIVE A Specific [place] (test code = USPGR) <=1.005 1.005-1.030 A [...] Seen None Seen N STLMLCBC WITH AUTO [id number] 23:19:00* Test Item Value Reference Range Interpretation [...] 0.5 % 0.0-0.4 H STLMLPREGNANCY TEST, Urine [id number] 23:12:00* Test Item Value Reference Range Interpretation Comme nts (Urine) (test code = PREGU) Negative If a specimen is collected by a nurse, then you MUST fill out the Collected and Collected By snyder [facility] [id number] 00:00:00* Test Item Value Reference Range Interpretation [...] code = E-GFR) 126 mL/min See_Comment [Automated LitRes] The system which generated this result transmitted reference range: >or=60. The reference range was not used to interpret this result as normal/abnormal. E-GFR, (test code = E-GFR, ) 146 mL/min See_Comment [Automated LitRes] The system which generated this result transmitted [...] <30.0 [facility] MedicalEstrogen [Mass/volume] in Serum or [id number] 00:00:00* Test Item Value Reference Range Interpretation Comme nts estradiol (test code = estradiol) 27.04 pg/mL see below estriol, unconjugated (test code = estriol, unconjugated) <0.1 see below estrone (E1), serum (test co de = estrone (E1), serum) 10.5 pg/mL see below [facility] MedicalThyroglobulin Ab [Units/volume] in Serum or [id number] 00:00:00* Test Item Value Reference Range Interpretation Comme nts anti-thyroglobulin (test cod e = anti-thyroglobulin) <20 <40 [facility] MedicalUrate [Mass/volume] in Serum or [id number] 00:00:00* Test Item Value Reference Range Interpretation Comme nts uric acid (test code = uric acid) 2.8 mg/dL 2.5-7.9 [facility] MedicalThyroperoxidase Ab [Units/volume] in Serum or [id number] 00:00:00* Test Item Value Reference Range Interpretation Comme nts anti-tpo Ab (test code = anti-tpo Ab) <10 <35 [facility] MedicalUrinalysis macro (dipstick) panel - [id number] 15:47:00* Test Item Value Reference Range Interpretation Comme nts Leukocytes (test code = Leukocytes) Negative Nitrite (test code = Nitrite) negative Urobilinogen (test code = Urobilinogen) Normal Protein (test code = Protein) Negative pH (test code = pH) 5.0 Blood (test code = Blood) Small Specific [place] (test code = Specific [place]) 1.010 Ketone (test code = Ketone) Moderate Bilirubin (test code = Bilirubin) Negative Glucose (test code = Glucose) 1999+ Appearance (test code = Appearance) Clear Color (test code = Color) Pale Yellow [facility] MedicalUrate [Mass/volume] in Serum or [id number] 00:00:00* Test Item Value Reference Range Interpretation Comme nts uric acid (test code = uric acid) 5.5 mg/dL 2.5-7.9 [facility] cpkneqgg2019-42-89 00:00:00* Test Item Value Reference Range Interpretation [...] code = E-GFR) 86 mL/min See_Comment [Automated LitRes] The system which generated this result transmitted reference range: >or=60. The reference range was not used to interpret this result as normal/abnormal. E-GFR, (test code = E-GFR, ) 100 mL/min See_Comment [Automated LitRes] The system which generated this result transmitted [...] <30.0 [facility] MedicalEstrogen [Mass/volume] in Serum or [id number] 00:00:00* Test Item Value Reference Range Interpretation Comme nts estradiol (test code = estradiol) 45.45 pg/mL see below estriol, unconjugated (test code = estriol, unconjugated) <0.1 see below estrone (E1), serum (test co de = estrone (E1), serum) 22.6 pg/mL see below [facility] MedicalThyroperoxidase Ab [Units/volume] in Serum or [id number] 00:00:00* Test Item Value Reference Range Interpretation Comme nts anti-tpo Ab (test code = anti-tpo Ab) <10 <35 [facility] MedicalThyroglobulin Ab [Units/volume] in Serum or [id number] 00:00:00* Test Item Value Reference Range Interpretation Comme nts anti-thyroglobulin (test cod e = anti-thyroglobulin) <20 <40 [facility] MedicalCancer Ag 125 [Units/volume] in Serum or [id number] 00:00:00 * Test Item Value Reference Range Interpretation Comme nts CA-125 (test code = CA-125) 18.1 U/mL 6.4-38.1 [facility] MedicalProlactin [Mass/volume] in Serum or [id number] 00:00:00* Test Item Value Reference Range Interpretation Comme nts prolactin (test code = prolactin) 9.8 NG/mL 4.8-23.3 [facility] MedicalMagnesium [Mass/volume] in Serum or [id number] 00:00:00* Test Item Value Reference Range Interpretation Comme nts magnesium (test code = magnesium) 1.8 mg/dL 1.6-2.6 [facility] MedicalIron and Iron binding capacity panel - Serum or Simbvh5560-88-06 00:00:00* Test Item Value Reference Range Interpretation Comme nts iron (test code = iron) 28 ug/dL 37-145 L UIBC (test code = UIBC) 338 ug/dL 112-347 TIBC (test code = TIBC) 366.0 [facility] MedicalParathyrin.intact [Mass/volume] in Serum or Sgmdql7946-17-97 00:00:00* Test Item Value Reference Range Interpretation Comme nts PTH (test code = PTH) 14.36 pg/mL 15.00-65.00 L [facility] MedicalFolate+Cyanocobalamin [Interpretation] in Serum or [id number] 00:00:00* Test Item Value Reference Range Interpretation Comme nts folate (test code = folate) 12.28 NG/mL 2.00-20.00 vitamin B12 (test code = vit mejias B12) 689.7 pg/mL 200.0-900.0 [facility] MedicalProgesterone Free [Mass/volume] in Serum or [id number] 00:00:00* Test Item Value Reference Range Interpretation Comme nts progesterone (test code = progesterone) 0.09 NG/mL [facility] CenterSnevieo32-Rptotqfcrkkpws D3+25-Hydroxyvitamin D2 [Mass/volume] in Serum or Irkdji5491-37-13 00:00:00* Test Item Value Reference Range Interpretation Comme nts vitamin D (test code = vitamin D) 19.6 NG/mL 32.0-100.0 L [facility] Medicalthyroid panel, [id number] 00:00:00* Test Item Value Reference Range Interpretation Comme nts TSH (test code = TSH) 1.380 uIU/mL 0.178-4.530 free T4 (test code = free T4) 1.25 NG/dL 0.80-1.73 total T4 (test code = total T4) 9.8 ug/dL 4.9-11.9 T-uptake (test code = T-uptake) 1.1 tbi 0.8-1.3 [facility] QzhjdqoGGUWSPQ6841-74-01 03:49:00* Test Item Value Reference Range Interpretation Comme nts LITHIUM (test code = LITH) < 0.2 mmol/L 0.6-1.2 L Drugs identified in Urine by Screen [id number] 00:00:00* Test Item Value Reference Range Interpretation [...] Urine by Confirmatory method (test code = 97155-2) <1 See_Comment [Automated message] The system which generated this result transmitted reference range: >=1. The reference range was not used to interpret this result as normal/abnormal. Amphetamines [Presence] in Urine by Confirmatory method (test code = 31586-4) <100 See_Comment [Automated message] The system which generated this result transmitted reference range: >=100. The reference range was not used to interpret this result as normal/abnormal. Benzodiazepines [Presence] in Urine by Confirmatory method (test code = 31872-4) <50 See_Comment [Automated message] The system which [...] Urine by Confirmatory method (test code = 95743-5) <50 See_Comment [Automated message] The system which generated this result transmitted reference range: >=50. The reference range was not used to interpret this result as normal/abnormal. Opiates [Presence] in Urine by Confirmatory method (test code = 55199-3) <100 See_Comment [Automated message] The system which generated this result transmitted reference range: >=100. The reference range was not used to interpret this result as normal/abnormal. 6-Monoacetylmorphine (6-RACIEL) [Presence] in Urine by Confirmatory method (test code = 61585-5) <10 See_Comment [Automated message] The system which generated this result transmitted reference range: >=10. The reference range was not used to interpret this result as normal/abnormal. Methadone [Presence] in Urine by Confirmatory method (test code = 56600-2) <200 See_Comment [Automated message] The system which generated this result transmitted reference range: >=200. The reference range was not used to interpret this result as normal/abnormal. Meperidine [Presence] in Urine by Confirmatory method (test code = 10034-4) <100 See_Comment [Automated message] The system which generated this result transmitted reference range: >=100. The reference range was not used to interpret this result as normal/abnormal. fentaNYL+Norfentanyl [Presence] in Urine by Confirmatory method (test code = 38289-6) <5 See_Comment [Automated message] The system which generated this result transmitted reference range: >=5. The reference range was not used to interpret this result as normal/abnormal. Carisoprodol+Meprobamate [Presence] in Urine by Screen method (test code = 79555-6) <200 See_Comment [Automated message] The system which generated this result transmitted reference range: >=200. The reference range was not used to interpret this result as normal/abnormal. traMADol [Presence] in Urine by Confirmatory method (test code = 13540-3) <100 See_Comment [Automated message] The system which generated this result transmitted reference range: >=100. The reference range was not used to interpret this result as normal/abnormal. pH of Urine (test code = 2756-5) 5.69 4.5-9.0 Creatinine [Mass/volume] in Urine (test code = 2161-8) 70.5 mg/dL 20-370 Ethanol [Presence] in Urine by Screen method (test code = 08018-5) <10 See_Comment [Automated message] The system which generated this result transmitted reference range: >=10. The reference range was not used to interpret this result as normal/abnormal. Barbiturates [Presence] in Urine by Screen method (test code = 81753-5) <200 See_Comment [Automated message] The system which generated this result transmitted reference range: >=200. The reference range was not used to interpret this result as normal/abnormal. [facility] [id number] 23:14:00* Test Item Value Reference Range Interpretation [...] 38-126 N UA RFLX MICR CULT IF [id number] 22:37:00* Test Item Value Reference Range Interpretation [...] 0.0-0.1 N Notes Date/Time Note Provider Source 2024-06-25 13:40:33 PharmD Attempted to contact patient for DM/medication management. Unable to reach patient. [X] Left VM with contact information [ ] Unable to leave VM/VM box full This is the second attempt. Katie Frank PharmD Pharmacy Clinical Venereal Disease Investigator [facility] Sharona Frank [facility] 2024-06-21 10:23:01 PharmD Attempted to contact patient for DM/medication management. Unable to reach patient. [X] Left VM with contact information [ ] Unable to leave VM/VM box full This is the first attempt. Katie [facility]D [facility] Sharona Frank [facility] 2024-05-02 12:46:12 Called pt, discussed pap smear and poc. Verbalized understanding. Anna Quintana RN 05/02/24 12:46 PM [facility] 2024-05-02 08:17:58 Called pt, no answer. Left VM. Esther Willis LVN 05/02/2024 8:18 AM LYST SUPERVISOR Esther Willis TUBE INSPECTOR [facility] 2024-05-01 16:42:40 Please notify the patient of pap results: NIL pap +HPV, she will need repeat pap in 1 year VAIBHAV Maciel 05/01/2024 4:43 PM [facility] 2024-04-26 08:20:19 Patient informed of results and new orders, verbalized understanding. LYST SUPERVISOR Claribel Villasenor TUBE INSPECTOR [facility] 2024-04-25 16:34:19 Called pt, daughter answered phone and stated she is taking a shower right now. Will call back Esther Willis LVN 04/25/2024 4:34 PM LYST SUPERVISOR Esther Willis [facility] 2024-04-25 16:21:00 Please notify the patient that yeast was identified. Meds have been sent to her pharmacy on file, please advise the patient to complete the meds as prescribed, and practice good perineal hygiene. VAIBHAV Maciel 04/25/2024 4:21 PM [facility] 2024-03-22 11:15:33 PA evelyn Thapa completed Harrell [id number] Pending determination A Lee RN [facility] 2024-03-22 11:09:04 Addended by: SOFIA MERCHANT RPH on: 03/22/2024 11:09 AM Modules accepted: Orders [facility] 2024-03-22 10:23:58 CLINICAL PHARMACY ENDOCRINOLOGY VISIT- 03/22/24 [...] Visual changes Complications of diabetes: Macrovascular: [-] MO [-] CABG/PCI/other re-vascularization procedure Microvascular [-] Retinopathy [...] DAILY AT BEDTIME NEEDED 01/10/24 Doctor Unassigned, Crowder ARIPiprazole 5 mg tablet Take 1 tablet by mouth at bedtime. 10/18/23 Doctor Unassigned, Crowder Blood-Glucose Meter,Continuous (FREESTYLE CURT 3 READER) Misc Use as directed 10/28/23 Helen Truong AGPCNP Blood-Glucose Sensor (FREESTYLE CURT 3 SENSOR) Jenna Use as directed every 2 weeks 10/28/23 Helen Truong AGPCNP SERTraline 100 mg tablet Take 1 tablet by mouth every morning. 10/18/23 Doctor Unassigned, Crowder quetiapine fumarate (SEROQUEL ORAL) Take by mouth. Doctor Unassigned, Crowder Allergies Allergen Reactions Latex Swelling Blisters Drug-Drug Interactions: There are no significant drug-drug interactions There is no immunization history on file for this patient. Vaccine history was reviewed. The patient was reminded about the importance of receiving an annual influenza vaccine as indicated. Recent Labs 08/15/23 1455 02/03/24 1101 HGBA1C 12.2* -- UNMMHUQ7T -- 12.3* Assessment: 1. DIABETES Patient NOT [...] with patient/coordination: 30 minutes Sofia Merchant PharmD, [facility] Pharmacy Clinical Venereal Disease Investigator- Endocrinology Future Appointments Provider Department Dept Phone 05/11/2024 2:30 PM Helen Truong AGPCNP [facility], [place] [phone] [facility] 2024-03-19 15:18:15 Pt aware PA was sent in, verbalized no further questions. [facility] Esther Carr RN [facility] 2024-03-19 13:45:55 Images from the original note were not included. [facility] 2024-03-19 11:17:55 Images from the original note were not included. Patient came in to provide their insurance card information to get her insulin PA. Patient has been with out medication for a month [facility] 2024-03-16 14:25:31 Images from the original note were not included. Pt Insurance showing inactive on epic. PA denied. LM for patient to call back with Insurance information. [facility] 2024-03-16 12:50:10 Aminta Nino is a 33 year old female Pt is calling because she needs a PA for nsulin lispro (HUMALOG KWIKPEN INSULIN) 100 unit/mL pen injector . Pt was at the ER last night with BS over 700. Pt states she has been out of medication for a month and has been trying to get this done. Please advise [facility] [address] [place] [id number] A Iniguez [facility] 2024-03-05 10:09:53 CLINICAL PHARMACY ENDOCRINOLOGY VISIT- 03/05/24 Amintaanusha Nino is a 33 year old female [...] in a few weeks. Sofia Merchant PharmD, [facility] Pharmacy Clinical Venereal Disease Investigator- Endocrinology Future Appointments Provider Department Dept Phone 05/11/2024 2:30 PM Helen Truong AGPCNP [facility], [place] [phone] A Merchant [facility] 2024-02-04 10:00:00 Images from the original note were not included. Venipuncture collection performed by clean technique on the left hand. Total of 1 attempts were made. Slight pressure and a bandage/dressing were applied to the site(s). The patient experienced no complications. The following specimens were processed according to instructions and sent to [facility] laboratories per lab order on 02/04/2024 : LT BLUE SST 4 RED LAV PPT DK GREEN (LiHep) DK GREEN (SodH) HELLER DK BLUE (K2) DK BLUE (S) ACD Blood Culture NIPT/NTD Patient has been identified by and was provided with cup, antiseptic towelette, and clean catch instructions. 1 urine specimen(s) sent. Unpreserved 1 Urine Culture Aptima tube Other urine LYST SUPERVISOR [facility] 2024-01-23 08:11:32 Received [facility] records from [employer] via fax, placed on [employer] [facility] [employer] desk. LYST SUPERVISOR Maryanne Caicedo [facility] 2024-01-20 15:07:58 Images from the original note were not included. LYST SUPERVISOR Esther Carr RN [facility] 2024-01-19 14:10:25 Name and verified, pt is aware of results. Pt verbalized understanding. Suni Dooley RN 01/19/2024 2:10 PM LYST SUPERVISOR Suni Dooley RN [facility] 2024-01-19 10:48:40 Aminta Nino is a 33 year old female pt returned the call to discuss results. Would like a call back. LYST SUPERVISOR Candis Lee [facility] 2024-01-19 10:24:15 Attempted to reach pt, no answer, left a vm Suni Dooley RN 01/19/2024 10:24 AM [facility] 2024-01-19 10:05:59 Aminta Nino is a 33 year old Patient returned call to go over results. Please assist and thank you. LYST SUPERVISOR Ron Cool [facility] 2024-01-18 15:52:47 Images from the original note were not included. PA sent [facility] Esther Carr RN [facility] 2024-01-18 15:31:40 Aminta Nino is a 33 year old female Pt is calling to get status on her request for OZEMPIC . She stated that pharmacy has also sent request form for PA . Please call the pharmacy with the update.Pt is waiting since 3 months for this PA initiation. Please call the pt with an update. [facility] Uma Mckeon [facility] 2024-01-17 17:31:15 1. Type 2 diabetes [...] < 80 Dispense: 36 mL; Refill: 1 [facility] 2024-01-17 17:24:15 Please advise on formulary alternative for Humalog U-200. Mya Abarca MA 01/17/2024 5:24 PM A Abarca MA [facility] 2024-01-11 14:58:31 Images from the original note were not included. Priyanka Sen [facility] 2024-01-05 08:54:00 CLINICAL PHARMACY ENDOCRINOLOGY VISIT [...] will follow-up after. Saran Villatoro PharmD PGY2 [employer] Future Appointments Provider Department Dept Phone 02/03/2024 11:00 AM Helen Truong AGPCNP [facility], [place] [facility] [phone] Saran Villatoro [facility] 2024-01-04 10:57:47 CLINICAL PHARMACY ENDOCRINOLOGY VISIT Aminta [...] call back tomorrow. Saran Villatoro PharmD PGY2 [employer] Future Appointments Provider Department Dept Phone 02/03/2024 11:00 AM Helen Truong AGPCNP [facility], [facility] [phone] Saran Villatoro [facility] 2023-12-09 12:58:57 I was present with the resident at the time of this encounter on 12/09/23. I discussed the case with Saran Villatoro PharmD (PGY2 [employer]) and agree with the assessment and plan. I have reviewed the progress note and I agree with the note as written. Sofia Merchant PharmD, [facility] Pharmacy Clinical Venereal Disease Investigator- Endocrinology Sofia Merchant [facility] 2023-12-09 11:41:34 CLINICAL PHARMACY ENDOCRINOLOGY VISIT- 12/09/23 [...] Visual changes Complications of diabetes: Macrovascular: [-] MO [-] CABG/PCI/other re-vascularization procedure Microvascular [-] Retinopathy [...] mouth in the morning. 10/05/23 Doctor Unassigned, Crowder ARIPiprazole 5 mg tablet Take 1 tablet by mouth at bedtime. 10/18/23 Doctor Unassigned, Crowder Blood-Glucose Meter,Continuous (FREESTYLE CURT 3 READER) Misc [...] mouth in the morning. 10/05/23 Doctor Unassigned, Crowder semaglutide (OZEMPIC) 1 mg/dose (4 mg/3 mL) PnIj inject 1 mg under the skin weekly. 10/28/23 Helen Truong AGPCNP SERTraline 100 mg tablet Take 1 tablet by mouth every morning. 10/18/23 Doctor Unassigned, [place] fluconazole 150 mg tablet Take one tablet PO today, then repeat in 72 hours 09/05/23 Vincent Jorge DNP metFORMIN 500 mg tablet Take 1 tablet by mouth in the morning and 1 tablet in the evening. Take with meals. 09/05/23 Vincent Jorge DNP quetiapine fumarate (SEROQUEL ORAL) Take by mouth. Doctor Unassigned, [place] Allergies/ADR: Allergies Allergen Reactions Latex Swelling Blisters [...] patient/coordination: 20 minutes Saran Villatoro PharmD PGY2 [facility] Future Appointments Provider Department Dept Phone 02/03/2024 11:00 AM Helen Truong AGPCNP [facility] Endocrinology, [facility] [phone] Saran Villatoro [facility] 2023-12-07 10:47:45 CLINICAL PHARMACY ENDOCRINOLOGY VISIT Aminta [...] a few weeks. Saran Villatoro PharmD PGY2 [employer] Future Appointments Provider Department Dept Phone 02/17/2024 10:30 AM Helen Truong AGPCNP [facility] [phone] Saran Villatoro [facility] 2023-10-28 14:00:00 Addended by: HELEN ROYAL on: 10/29/2023 11:02 PM Modules accepted: [facility] 2023-08-15 15:00:00 Images from the original note were not included. Venipuncture collection performed by clean technique on the right anticubitus. Total of 2 attempts were made. Slight pressure and a bandage/dressing were applied to the site(s). The patient experienced no complications. The following specimens were processed according to instructions and sent to [facility] laboratories per lab order on 08/15/2023 : LT BLUE SST 2 rst RED LAV 2 PPT DK GREEN (LiHep) DK GREEN (SodH) HELLER DK BLUE (K2) DK BLUE (S) ACD Blood Culture NIPT/NTD [facility] 2023-01-21 18:50:00 [facility] ([facility]) EMERGENCY PROVIDER REPORT REPORT#:[id number] REPORT STATUS: Signed DATE:01/21/23 TIME: 1849 PATIENT: AMINTA NINO UNIT #: [id number] ROOM/BED: AGE: 32 SEX: F PCP PHYS: Tad Jordan MD SERVICE DT: AUTHOR: Napoleon Nazario MD * ALL edits or amendments must be made on the electronic/computer document * HPI-Extremity Prob Lower General Initial Greet Date/Time 01/21/23 1850 Presentation Chief Complaint Foot problem R, Foot [...] a call to 911. at 1855 RPT #:[id number] END OF REPORT [facility] 2023-01-18 11:17:00 [facility] ([facility]) Brief Discharge Note w/Med Rec REPORT#:[id number] REPORT STATUS: Signed REPORT INITIALIZATION DATE:01/18/23 TIME: 111 PATIENT: AMINTA NINO UNIT #: [id number] ROOM/BED: [address] : 92 AGE: 32 SEX: F ATTEND: Jak Herrera MD ADM AUTHOR: Darron Santacruz MD REPT SERVICE DT/TIME: 01/18/23 1117 * ALL edits or amendments must be made on the electronic/computer document * Med Rec Med Rec Discharge meds: Continue taking these medications: hydrOXYzine HCL (ATARAX) 50 MG TAB 50 MILLIGRAM ORAL FOUR TIMES DAILY NEEDED. as needed for ANXIOUS Comments: #60 - SIG Obtained From Fir INSULIN LISPRO (HumaLOG KWIKPEN (3mL)) 100 UNIT/ML INSULN.PEN 50 UNITS SUBCUTANEOUS EVERY MORNING. Comments: #45 - SIG Obtained From DrFirst INSULIN LISPRO (HumaLOG KWIKPEN (3mL)) 100 UNIT/ML INSULN.PEN 60 UNITS SUBCUTANEOUS TWICE DAILY. Instructions: TAKE LUNCH AND DINNER INSULIN GLARGINE (LANTUS SOLOSTAR (15mL)) 100 UNIT/ML (3 ML) PEN.INJCTR 0 UNITS SUBCUTANEOUS TWICE DAILY. Comments: #45 - SIG Obtained From Mike SERTRALINE (ZOLOFT) 100 MG TAB 100 MILLIGRAM [...] P: Admission 11-15-22 32 y/[facility] transported from [place] for sob, orthopnea, pulm edema. PNC w [...] growth , BPP 8/8, cervix long closed 11-2 swp disc indication for delivery. pt wants trial of induction. PLAN- gbs vag culture sent, to [facility] [place], cervidil, ssi, pcn prev - blaise coates vertex, anterior placenta, MATHEUS 6.5 decreased, S/D 5.1 increased EFW 1730 gms, 6% % low normal interval growth interval gwoth, BPP 8/8, cervix long closed. prev 10- blaise coates vertex, anterior placenta, [...] f/u w dds pp 15) Nose bleeds 12-27- ocean saline spray prn 16) Insomnia- pt requests trazadone, on 300 q hs 17) Facial rash 01-13-23- pt concerned about staph infxn. mrsa nasal swab + treated w mupricon nasal Delivery 01-15-23 , HARRY james 1770g 3-14, ap 1,7 course- uncomplicated- bp 140-150/70-80, glu 120-287, on lantus 110 qhs, ssi, proc 60 xl q d pp h/h 10.3/30.8, nl plat and lft D/C 01-18-23 PPD 3 w rxs procardia 30xl q 12, trazadone, zoloft 100, metformin 100 bid. to continue her cgm and insulin pen, preE precautions F/U dr clay 1 wk for bp check, fax [phone], then with customs investigator Discharge to: Home/Self Care Discharge diagnosis: 26 weeks iddm, preE, fgr, bipolar, adhd Pt. condition on discharge: improved Additional Discharge Routines: None Diet: Diabetic Activity: Light Duty Additional instructions: continue cgm and insuliin pens, preE precautions, f/u dr clay 1 week for bpp check at 1343 RPT #:[id number] END OF REPORT [facility] 2023-01-18 11:14:00 [facility] ([facility]) OB Postpart Progr Note REPORT#:[id number] REPORT STATUS: Signed REPORT INITIALIZATION DATE:01/18/23 TIME: 1114 PATIENT: AMINTA NINO UNIT #: [id number] ROOM/BED: : 92 AGE: 32 SEX: F [...] text A P: PPD 3 (11-4 , montse, HARRY 1770g 3-14, ap 1,7), bp 140-150/70-80, glu 120- 287, fbs 180, on lantus 110 qhs, ssi, proc 60 xl q d pp h/h 10.3/30.8, nl plat and lft PLAN- d/c home w rxs procardia 30xl q 12, trazadone, zoloft 100, metformin 100 bid. to continue her cgm and insulin pen, preE precautions, f/u dr clay 1 wk for bp check, then with customs investigator Pt seen and d/w dr josé at 1138 RPT #:[id number] END OF REPORT [facility] 2023-01-17 07:42:00 [facility] ([facility]) OB Postpart Progr Note REPORT#:[id number] REPORT STATUS: Signed REPORT INITIALIZATION DATE:01/17/23 TIME: 741 PATIENT: AMINTA NINO UNIT #: [id number] ROOM/BED: : 92 AGE: 32 SEX: F ATTEND: Jak Herrera MD ADM AUTHOR: Darron Santacruz MD REPT SERVICE DT/TIME: 01/17/23 0742 * ALL edits or amendments must be [...] Ox Delivery Rate 01/17 750 99.0 01/17 075 98.5 102 17 133/82 98 01/17 0600 98.1 102 18 105/66 95 01/16 2333 [...] text A P: PPD 2 (11-4 , montseHARRY 1770g 3-14, ap 1,7) pp h/h pending, bp 140-150/ 70-80, glu 120-287, fbs 180, on lantus 110 qhs, ssi, proc 60 xl q d PLAN- cpm, home in am Pt seen and d/w dr ochoa at 1500 RPT #:[id number] END OF REPORT [facility] 2023-01-16 09:26:00 [facility] ([facility]) OB Postpart Progr Note REPORT#:[id number] REPORT STATUS: Signed REPORT INITIALIZATION DATE:01/16/23 TIME: 925 PATIENT: AMINTA NINO UNIT #: [id number] ROOM/BED: : 92 AGE: 32 SEX: F [...] 1005 108 100 01/15 1000 106 100 01/15 0957 128.0 01/15 0957 105 174/96 01/15 0955 113 100 01/15 0950 107 99 01/15 0945 106 98 01/15 0943 118.0 01/15 0943 106 155/93 01/15 0942 131.0 01/15 0942 105 175/109 01/15 0940 106 98 01/15 0937 98.2 18 01/15 0935 104 99 01/15 0930 104 100 01/15 0927 104.0 01/15 0927 101 137/86 PATIENT WEIGHT: Weight (lb): 250 Weight (oz): Weight (kg): 113.600 Physical Exam Cardiac: normal sinus rhythm Lungs: unlabored breathing Neuro: Exam: alert, oriented x3 Abdomen: soft Uterus: firm, involution appropriate Fundus: below the umbilicus Lochia: normal Result Findings/Data: Laboratory Tests: 01/16 01/15 01/15 01/15 01/15 0607 2059 1334 1119 1117 Blood Gas Capillary [...] left VM Dr Castro at 0954 RPT #:[id number] END OF REPORT [facility] 2023-01-15 12:26:00 [facility] ([facility]) OB Delivery Note REPORT#:[id number] REPORT STATUS: Signed REPORT INITIALIZATION DATE:01/15/23 TIME: 1226 PATIENT: AMINTA NINO UNIT #: [id number] ROOM/BED: [address] : 92 AGE: 32 SEX: F [...] anxiety relief per patient at 1410 RPT #:[id number] END OF REPORT [facility] 2023-01-14 06:49:00 [facility] ([facility]) OB Intrapart Prog Note REPORT#:[id number] REPORT STATUS: Signed REPORT INITIALIZATION DATE:01/14/23 TIME: 648 PATIENT: AMINTA NINO UNIT #: [id number] ROOM/BED: [address] : 92 AGE: 32 SEX: F ATTEND: Jak Herrera MD ADM AUTHOR: Darron Santacruz MD REPT SERVICE DT/TIME: 01/14/23 0649 * ALL edits or amendments must be made on the electronic/computer document * Subjective Subjective Comments: uncomfortable from bed, no ctx Objective General VS: Last Documented: Result Date Time Pulse Ox 94 01/14 957 Pulse 90 01/14 0957 B/P Mean 101.0 01/14 0952 B/P 136/77 01/14 0952 Temp 98.6 01/14 0543 Resp 18 01/14 0044 FiO2 21 12/28 2029 O2 Delivery Room [...] [facility] at 34 5/7 weeks transported from [place] at 26.2 for sob, orthopnea, pulm edema. PNC w dr cristina clay 1) IDDM- hgba1c 6.6 at sending 11-13, on lantus 60 bid, humalog 50B, 60L, 70D Consulted rohan nutrition and DM counselor. fructosamine 11-18 198, 11/30 217, 200, current 01-11 lantus am/pm 136/110, humalog 100, 110, 144 and metformin to 1000 bid 2) Prematurity- s/p bmz x 2 (-,6) no mgso4 d/t pulm edema, kiran felipe 3) U/S 11-- blaise coates vertex, anterior placenta, MATHEUS 6.5 decreased, S/D 11 increased near AEDF, EFW 1, 1683 gms, < 1 % decreased interval growth , BPP 8/8, cervix long closed 4) 6) Chr htn [...] and d/w dr jerez at 1050 RPT #:[id number] END OF REPORT [facility] 2023-01-13 06:58:00 [facility] ([facility]) OB Antepartum Prog Note REPORT#:[id number] REPORT STATUS: Signed REPORT INITIALIZATION DATE:01/13/23 TIME: 657 PATIENT: AMINTA NINO UNIT #: [id number] ROOM/BED: [address] : 92 AGE: 32 SEX: F ATTEND: Jak Herrera MD ADM AUTHOR: Darron Santacruz MD REPT SERVICE DT/TIME: 01/13/23 0658 * ALL edits or amendments must be made on the electronic/computer document * Objective Membranes: Intact Abdomen: gravid (morbidly obese), soft, no abnormal tenderness Lower extremities: Edema: none (thin legs) Calf tenderness: negative Diagnosis, Assessment Plan Diagnosis, Assessment Plan Free Text A P: 32 y/o [facility] 02-20-23 [facility] at 34 4/7 weeks transported from [place] at 26.2 for sob, orthopnea, pulm edema. PNC w dr cristina clay 1) IDDM- hgba1c 6.6 at sending 11-13, on lantus 60 bid, humalog 50B, 60L, 70D Consulted rohan, nutrition and DM counselor. fructosamine 11-18 198, 11/30 217, 200, current 01-11 lantus am/pm 136/110, humalog 100, 110, 144 and metformin to 1000 bid - glu still labile. PLAN- cpm, blaise to scan later today and make plan 2) Prematurity- s/p bmz x 2 (9-5,6) no mgso4 d/t pulm edema, kiran felipe 3) U/S 11-- blaise coates vertex, anterior placenta, MATHEUS 6.5 decreased, S/D 11 increased near AEDF, EFW 1, 1683 gms, < 1 % decreased interval growth , BPP 8/8, cervix long closed 11-2 swp disc indication for delivery. pt wants trial of induction. PLAN- gbs vag culture sent, to l [facility], cervidil, ssi, pcn prev - blaise coates vertex, anterior placenta, MATHEUS 6.5 decreased, S/D 5.1 increased EFW 1730 gms, 6% % low normal interval growth interval gwoth, BPP 8/8, cervix long closed. prev 10- blaise coates vertex, anterior placenta, [...] pt's request, 1 hr TID after meals 11- nst cat 1 5) DVT prophy- lovenox [...] and d/w dr josé at 1532 RPT #:[id number] END OF REPORT [facility] 2023-01-12 21:30:00 [facility] ([facility] Consultation Note REPORT#:[id number] REPORT STATUS: Signed REPORT INITIALIZATION DATE:01/12/23 TIME: 2129 PATIENT: AMINTA NINO UNIT #: [id number] ROOM/BED: [address] : 92 AGE: 32 SEX: F ATTEND: Jak Herrera MD ADM AUTHOR: Shabnam Jerez MD REPT SERVICE DT/TIME: 01/12/232129 * ALL edits or amendments must be made on the electronic/computer document * See Addendum History of Present Illness HPI Chief complaint: Transferred for [facility] History Past History Allergies: Coded Allergies: latex (SWELLING 11/15/22) Objective Physical Exam HEENT: normocephalic Cardiovascular: regular rate and rhythm Respiratory: clear to auscultation Abdomen: non-tender, soft Extremities: edema (trace) Neuro/JIG FITTER: alert, oriented x 3, normal speech Skin: dry, intact, normal color, normal temperature, normal turgor Psychiatry: not homicidal Results Radiology data: ultrasound indications: 34 3/7 weeks GA FGR IDDM findings: coates vertex anterior placenta MATHEUS 6.5 decreased S/D 11 increased near AEDF EFW 1 76935 gms, < 1 % decreased interval growth [...] of labor being scheduled at 1450 RPT #:[id number] END OF REPORT [facility] 2023-01-12 06:59:00 [facility] ([facility]) OB Antepartum Prog Note REPORT#:[id number] REPORT STATUS: Signed REPORT INITIALIZATION DATE:01/12/23 TIME: 658 PATIENT: AMINTA NINO UNIT #: [id number] ROOM/BED: [address] : 92 AGE: 32 SEX: F [...] Result Date Time B/P Mean 100.0 01/12 0947 B/P 133/76 01/12 0947 Temp 98.0 01/12 09 Pulse 90 01/12 947 Resp 16 01/12 [...] % (Auto) (14.5 - 29.7 %) 23.6 Hays % (Auto) (3.6 - 10.2 %) 7.2 Eos % (Auto) (0.0 - 3.0 %) 0.7 Baso % (Auto) (0.1 - 0.9 %) 0.3 Neut # (Auto) (K/mm3) 8.3 Lymph # (Auto) (K/mm3) 2.9 Hays # (Auto) (K/mm3) 0.9 Eos # (Auto) (K/mm3) 0.08 Baso # (Auto) (K/mm3) 0.0 Urines Ur Random Creatinine (mg/dL) 90.2 U Random Total Protein (mg/dL) 55.0 Protein/Creatinin Ratio (<200 mg/gcrea) 609.7 H Diagnosis, Assessment Plan Diagnosis, Assessment Plan Free Text A P: 32 y/o [facility] 02-20-23 [facility] at 34 3/7 weeks transported from [place] at 26.2 for sob, orthopnea, pulm edema. [...] plan 2) Prematurity- s/p bmz x 2 (11-16,) no mgso4 d/t pulm edema, kiran felipe 3) U/S 01-02 blaise coates vertex, anterior placenta, MATHEUS 6.5 decreased, S/D 5.1 increased EFW 1730 gms, 6% % low normal interval growth interval gwoth, BPP 8/8, cervix long closed. PLAN- U/S today prev 12-19 blaise coates vertex, anterior placenta, MATHEUS 8.5 decreased, S/D 4.9- 5.3 increased EFW 1384 gms, 5.6 % low normalinterval growth interval gwoth, BPP 8/8, cervix long closed. PLAN- rescan this 12-05 KA, S:D 4.9-5.3, EFW 1084, 5.6%, AFT 9.5, BPP 8/8, cx long closed. 9- gei Coates Cephalic CGA c/w dates [...] Pruritic red spots on legs- per dr madriagl they seem to me self-inflicted. PLAN- hc cream and dph prn 14) "Bad gums"- h/o same, afraid to see dentist. PLAN- saline gargles 15) Nose bleeds 10-16- ocean saline spray prn 16) Insomnia- pt requests trazadone, on 300 q hs Pt seen and d/w dr jerez at 1358 RPT #:[id number] END OF REPORT [facility] 2023-01-11 14:32:00 [facility] ([facility]) OB Antepartum Prog Note REPORT#:[id number] REPORT STATUS: Signed REPORT INITIALIZATION DATE:01/11/23 TIME: 1431 PATIENT: AMINTA NINO UNIT #: [id number] ROOM/BED: [address] : 92 AGE: 32 SEX: F ATTEND: Jak Herrera MD ADM AUTHOR: Juliet Colindres MD REPT SERVICE DT/TIME: 01/11/23 1432 * ALL edits or amendments must be [...] Resp 18 01/11 1330 FiO2 21 12/28 2030 O2 Delivery Room [...] Plan Free Text A P: 32 y/o [facility] 02-20-23 [facility] at 34 2/7 weeks transported from [place] at 26.2 for sob, orthopnea, pulm edema. PNC w dr cristina clay 1) IDDM- hgba1c 6.6 at sending -, [...] labile. pt seen by diab educ and sink maker. disc w rohan. PLAN- cpm, reeval - [...] cervix long closed. PLAN- U/S soon prev - blaise coates vertex, anterior placenta, [...] hr TID after meals 10- nst cat 1 10- nst 140 non [...] CMP and Urine pr/creat while awake today. 10-23 elev bp 189/102, 179/87, labet protocol [...] Nose bleeds 12-27- ocean saline spray prn 16) Insomnia- pt requests trazadone, on 300 q hs at 1440 Addendum 1: 01/11/231657 by Juliet Colindres MD labs ordered, nurse aware, but not in lab could have ordered am, but pt doesn't like to be distrubed in am. at 165 RPT #:[id number] END OF REPORT [facility] 2023-01-10 08:18:00 [facility] ([facility]) OB Antepartum Prog Note REPORT#:[id number] REPORT STATUS: Signed REPORT INITIALIZATION DATE:01/10/23 TIME: 817 PATIENT: AMINTA NINO UNIT #: [id number] ROOM/BED: [address] : 92 AGE: 32 SEX: F [...] Plan Free Text A P: 32 y/o [facility] 02-20-23 [facility] at 34 1/7 weeks transported from [place] at 26.2 for sob, orthopnea, pulm edema. [...] labile. pt seen by diab educ and sink maker. disc w rohan. PLAN- cpm, reeval 12-20 [...] growth interval gwoth, BPP 10/19, cervix long closed. PLAN- U/S soon prev - blaise coates vertex, anterior placenta, [...] TID after meals 10-30 nst cat 1 10-27 nst 140 non reactive, min variability. bpp 10/19 10-26 nst cat 1, occ sharp variable [...] and d/w dr ochoa at 1559 RPT #:[id number] END OF REPORT [facility] 2023-01-09 08:16:00 [facility] ([facility]) OB Antepartum Prog Note REPORT#:[id number] REPORT STATUS: Signed REPORT INITIALIZATION DATE:01/09/23 TIME: 815 PATIENT: AMINTA NINO UNIT #: [id number] ROOM/BED: [facility] : 92 AGE: 32 SEX: F ATTEND: [...] Plan Free text A P: 32 y/o [facility] 02-20-23 [facility] at 33 5/7 weeks transported from [place] at 26.2 for sob, orthopnea, pulm edema. [...] to avoid hypoglycemia, fructosamine pending. PLAN- cpm 10- on cgm, glu consistently high, probably as [...] labile. pt seen by diab educ and sink maker. disc w rohan. PLAN- cpm, reeval 12-20 [...] gwoth, BPP 8/8, cervix long closed prev 12-19 blaise coates [...] non reactive, min variability. PLAN bpp ordered 01-06 nst cat 1, occ sharp variable but [...] PLAN- 300 q hs at 1607 RPT #:[id number] END OF REPORT [facility] 2023-01-08 14:06:00 [facility] ([facility]) OB Antepartum Prog Note REPORT#:[id number] REPORT STATUS: Signed REPORT INITIALIZATION DATE:01/08/23 TIME: 1405 PATIENT: AMINTA NINO UNIT #: [id number] ROOM/BED: [address] : 92 AGE: 32 SEX: F [...] [facility] at 33 5/7 weeks transported from [place] at 26.2 for sob, orthopnea, pulm edema. [...] Result Date Time B/P Mean 102.0 01/08 121 Pulse Ox 99 01/08 121 B/P 138/77 01/08 121 Temp 97.8 01/08 1216 Pulse 88 01/08 [...] category: category 1 Findings/data: Laboratory Tests: 01/08 39 Other Body Source Membranes Rupture NON-RUPTURED Recent Impressions: ULTRASOUND - US FET BIO PH OK W/O NST 01/07 1645 Report Impression - Status: SIGNED Entered: 01/07/2023 4374 Impression: Biophysical profile score is 8 of 8. MATHEUS is at the lower limits of normal, measuring 6.4 cm. Impression By: [email or web address] - Agatha George MD Diagnosis, Assessment Plan Diagnosis, Assessment Plan Free text A P: 32 y/o [facility] 02-20-23 [facility] at 33 5/7 weeks transported from [place] at 26.2 for sob, orthopnea, pulm edema. She also has IDDM and mild PIH. She has been declining her AM insulin because she doesn't eat breakfast. Her BS's are generally okay on her CGM. BPP = 8/8. We will continue her current care for now. at 1414 RPT #:[id number] END OF REPORT [facility] 2023-01-07 19:41:00 [facility] ([facility]) OB Antepartum Prog Note REPORT#:[id number] REPORT STATUS: Signed REPORT INITIALIZATION DATE:01/07/23 TIME: 1940 PATIENT: AMINTA NINO UNIT #: [id number] ROOM/BED: [address] : 92 AGE: 32 SEX: F [...] continue to monitor closely. at 1950 RPT #:[id number] END OF REPORT [facility] 2023-01-07 07:02:00 [facility] ([facility]) OB Antepartum Prog Note REPORT#:[id number] REPORT STATUS: Signed REPORT INITIALIZATION DATE:01/07/23 TIME: 07 PATIENT: AMINTA NINO UNIT #: [id number] ROOM/BED: [address] : 92 AGE: 32 SEX: F [...] Resp 18 01/07 1214 FiO2 21 12/28 2030 O2 Delivery Room [...] P: 32 y/o [facility] 02-20-23 [facility] at 33 5/7 weeks transported from [place] at 26.2 for sob, orthopnea, pulm edema. PNC w dr cristina clay 1) IDDM- hgba1c 6.6 at [facility] 11-13, on lantus 60 bid, humalog 50B, 60L, 70D Consulted rohan, nutrition and DM counselor. fructosamine 11-18 198, 11/30 217, 200, 12-29 180 current insulin dose lantus am/pm 152/160, humalog 106, 122, 160 and metformin to 1000 bid 10- cgm looking good, but sympt hypoglycemia in am. PLAN- decr pm lantus to 136 10-26 cgm looking excellent, < 120. dr madrigal aware. 10-20 CGM mostly below 200. i spoke w dr madrigal. he rec cpm - stressed imp of eating to avoid hypoglycemia, fructosamine pending. PLAN- cpm -16 on cgm, glu consistently high, probably as [...] labile. pt seen by diab educ and sink maker. disc w rohan. PLAN- cpm, reeval 12-20 [...] pt's request, 1 hr TID after meals 10-27 nst 140 non reactive, min variability. PLAN bpp ordered 10-26 nst cat 1, occ sharp variable [...] and d/w dr josé at 1634 RPT #:[id number] END OF REPORT [facility] 2023-01-06 07:02:00 [facility] ([facility]) OB Antepartum Prog Note REPORT#:[id number] REPORT STATUS: Signed REPORT INITIALIZATION DATE:01/06/23 TIME: 07 PATIENT: AMINTA NINO UNIT #: [id number] ROOM/BED: [address] : 92 AGE: 32 SEX: F [...] Pulse Ox 97 01/06 0424 Resp 18 01/06 042 Temp 97.8 01/05 1545 FiO2 21 12/28 2030 O2 Delivery Room [...] P: 32 y/o [facility] 02-20-23 [facility] at 33 4/7 weeks transported from [place] at 26.2 for sob, orthopnea, pulm edema. PNC w dr cristina clay 1) IDDM- hgba1c 6.6 at sending 11-13, on lantus 60 bid, humalog 50B, 60L, 70D Consulted rohan, nutrition and DM counselor. fructosamine 11-18 198, 11/30 217, 200, 12-29 180 current insulin dose lantus am/pm 152/160, humalog 106, 122, 160 and metformin to 1000 bid - cgm looking excellent, < 120. dr [...] labile. pt seen by diab educ and sink maker. disc w rohan. PLAN- cpm, reeval 12-20 [...] BPP 8/8, cervix long closed prev 10- balise coates vertex, anterior placenta, MATHEUS 8.5 decreased, [...] and d/w dr josé at 1527 RPT #:[id number] END OF REPORT [facility] 2023-01-05 06:47:00 [facility] ([facility]) OB Antepartum Prog Note REPORT#:[id number] REPORT STATUS: Signed REPORT INITIALIZATION DATE:01/05/23 TIME: 646 PATIENT: AMINTA NINO UNIT #: [id number] ROOM/BED: [address] : 92 AGE: 32 SEX: F [...] B/P 139/72 01/05 1545 Temp 97.8 01/05 1545 Pulse 99 01/05 1545 Resp 18 01/05 [...] P: 32 y/o [facility] 02-20-23 [facility] at 33 3/7 weeks transported from [place] at 26.2 for sob, orthopnea, pulm edema. [...] cgm looking excellent, < 120. PLAN- cpm - CGM mostly below 200. i spoke w [...] bedside PLAN- incr metf to 100 bid 12-22 back on cgm. PLAN- i [...] labile. pt seen by diab educ and sink maker. disc w rohan. PLAN- cpm, reeval 12-20 [...] cervix long closed. PLAN- rescan this weekend - KA, S:D 4.9-5.3, EFW 1084, 5.6%, [...] and d/w dr jerez at 1848 RPT #:[id number] END OF REPORT [facility] 2023-01-04 06:56:00 [facility] ([facility]) OB Antepartum Prog Note REPORT#:[id number] REPORT STATUS: Signed REPORT INITIALIZATION DATE:01/04/23 TIME: 655 PATIENT: AMINTA NINO UNIT #: [id number] ROOM/BED: [address] : 92 AGE: 32 SEX: F ATTEND: Jka Herrera MD ADM AUTHOR: Darron Santacruz MD [...] Resp 20 01/03 2050 FiO2 21 12/28 2030 O2 Delivery Room [...] Plan Free Text A P: 32 y/o [facility] 02-20-23 STOR[place] at 33 2/7 weeks transported from [place] at 26.2 for sob, orthopnea, pulm edema. [...] bedside PLAN- incr metf to 100 bid 12-22 back on cgm. PLAN- i [...] labile. pt seen by diab educ and sink maker. disc w rohan. PLAN- cpm, reeval 12-20 [...] and d/w dr jerez at 1552 RPT #:[id number] END OF REPORT [facility] 2023-01-03 06:46:00 [facility] ([facility]) OB Antepartum Prog Note REPORT#:[id number] REPORT STATUS: Signed REPORT INITIALIZATION DATE:01/03/23 TIME: 645 PATIENT: AMINTA NINO UNIT #: [id number] ROOM/BED: [address] : 92 AGE: 32 SEX: F [...] Resp 16 01/03 1057 FiO2 21 12/28 2030 O2 Delivery Room [...] % (Auto) (14.5 - 29.7 %) 23.6 [place] % (Auto) (3.6 - 10.2 %) 5.1 Eos % (Auto) (0.0 - 3.0 %) 0.6 Baso % (Auto) (0.1 - 0.9 %) 0.3 Neut # (Auto) (K/mm3) 8.9 Lymph # (Auto) (K/mm3) 3.0 [place] # (Auto) (K/mm3) 0.7 Eos # (Auto) (K/mm3) 0.08 Baso # (Auto) (K/mm3) 0.0 Diagnosis, Assessment Plan Diagnosis, Assessment Plan Free Text A P: 32 y/o [facility] 02-20-23 [facility] at 33 1/7 weeks transported from [place] at 26.2 for sob, orthopnea, pulm edema. [...] cgm looking excellent, < 120. PLAN- cpm - CGM mostly below 200. i spoke w [...] bedside PLAN- incr metf to 100 bid 12-22 back on cgm. PLAN- i [...] labile. pt seen by diab educ and sink maker. disc w rohan. PLAN- cpm, reeval 12-20 [...] cervix long closed. PLAN- rescan this weekend - KA, S:D 4.9-5.3, EFW 1084, 5.6%, [...] pt's request, 1 hr TID after meals 10-23 nst cat 1, occ sharp variable but [...] and d/w dr ochoa at 1547 RPT #:[id number] END OF REPORT [facility] 2023-01-02 09:09:00 [facility] ([facility]) [facility] Consultation Note REPORT#:[id number] REPORT STATUS: Signed REPORT INITIALIZATION DATE:01/02/23 TIME: 908 PATIENT: AMINTA NINO UNIT #: [id number] ROOM/BED: [address] : 92 AGE: 32 SEX: F ATTEND: Jak Herrera MD ADM AUTHOR: Shabnam Jerez MD REPT SERVICE DT/TIME: 01/02/23 09 * ALL edits or amendments must be made on the electronic/computer document * History of Present Illness HPI Chief complaint: Transferred for [facility] History Past History Allergies: Coded Allergies: latex (SWELLING 11/15/22) Objective Physical Exam VS/I O: Vital Signs: Date Time Temp Pulse Resp B/P B/P Pulse O2 O2 Flow FiO2 Mean Ox Delivery Rate 01/02 0510 89.0 01/02 0510 95 117/71 01/02 0036 85.0 01/02 0036 98 127/59 01/01 1942 99.0 01/01 1942 97.7 99 15 140/69 [...] auscultation Abdomen: non-tender, soft Extremities: edema (trace) Neuro/JIG FITTER: alert, oriented x 3, normal speech Skin: [...] 6- BMI 48 continue current care at [facility] RPT #:[id number] END OF REPORT [facility] 2023-01-02 08:15:00 [facility] ([facility]) OB Antepartum Prog Note REPORT#:[id number] REPORT STATUS: Signed REPORT INITIALIZATION DATE:01/02/23 TIME: 814 PATIENT: AMINTA NINO UNIT #: [id number] ROOM/BED: [address] : 92 AGE: 32 SEX: F ATTEND: Jak Herrera MD ADM AUTHOR: Taz Clifford MD REPT SERVICE DT/TIME: 01/02/23 0815 * ALL edits or amendments must be made on the electronic/computer document * Subjective Subjective Admission EGA: Weeks: 26 Days: 1 Patient reports: Patient reports: Yes normal movement, No no complaints, No abdominal pain, No vaginal bleeding, No leaking fluid, No contractions Objective VS: Last Documented: Result Date Time B/P Mean 89.0 01/02 0510 B/P 117/71 01/02 05 Pulse 95 01/02 510 Pulse Ox 96 01/01 1942 Temp 97.7 01/01 1942 Resp 15 01/01 1942 FiO2 21 12/28 2029 O2 Delivery Room air 12/28 2029 Vital Signs Date Temp Pulse Resp B/P B/P Mean Pulse Ox FiO2 01/01-01/02 97.7-98.5 86-101 15-17 117-151/59-79 85.0-109.0 96-98 PATIENT WEIGHT: Weight (lb): [...] Text A P: 32 y/o [facility] 02-20-23 [facility] at 33 0/7 weeks transported from [place] at 26.2 for sob, orthopnea, pulm edema. PNC w dr cristina clay 1) IDDM- hgba1c 6.6 at sending 11-13, on lantus 60 bid, humalog 50B, 60L, 70D Consulted williamck, nutrition and DM counselor. fructosamine 11-18 198, [...] cervix long closed. PLAN- rescan this weekend - KA, S:D 4.9-5.3, EFW 1084, 5.6%, [...] Nose bleeds 10-16- ocean saline spray prn at 1854 RPT #:[id number] END OF REPORT [facility] 2023-01-01 11:07:00 [facility] ([facility]) OB Antepartum Prog Note REPORT#:[id number] REPORT STATUS: Signed REPORT INITIALIZATION DATE:01/01/23 TIME: 1106 PATIENT: AMINTA NINO UNIT #: [id number] ROOM/BED: [address] : 92 AGE: 32 SEX: F ATTEND: Jak Herrera MD ADM AUTHOR: Tanya Hicks MD REPT SERVICE DT/TIME: 01/01/23 110 * ALL edits or amendments must be [...] Plan Free text A P: 32 y/o [facility] 02-20-23 [facility] at 32 6/7wk transported from [place] 11-15-22 at 26.2 for sob, orthopnea, pulm edema. 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 RPT #:[id number] END OF REPORT [facility] 2022-12-31 07:07:00 [facility] ([facility]) OB Antepartum Prog Note REPORT#:[id number] REPORT STATUS: Signed REPORT INITIALIZATION DATE:12/31/22 TIME: 706 PATIENT: AMINTA NINO UNIT #: [id number] ROOM/BED: [address] : 92 AGE: 32 SEX: F ATTEND: Jak Herrera MD ADM AUTHOR: Darron Santacruz MD REPT SERVICE DT/TIME: 12/31/22 0707 * ALL edits or amendments must be made on the electronic/computer document * Subjective Subjective Patient reports: Patient reports: Yes no complaints, Yes normal movement, No abdominal pain, No vaginal bleeding, No leaking fluid, No contractions Objective VS: Last Documented: Result Date Time B/P Mean 100.0 12/31 934 Pulse Ox 97 12/31 934 B/P 151/70 12/31 0935 Temp 98.3 12/31 934 Pulse 81 12/31 0935 Resp 17 12/31 0835 FiO2 21 12/28 2029 O2 Delivery Room air 12/28 2029 Vital Signs Date Temp Pulse Resp B/P B/P Mean Pulse Ox FiO2 12/30-12/31 98.0-98.3 81-96 - 123-159/59-83 83.0-113.0 92-99 PATIENT WEIGHT: Weight (lb): 250 Weight (oz): Weight (kg): 113.600 Membranes: Intact Abdomen: gravid (obese), soft, no abnormal tenderness, no guarding Lower extremities: Edema: trace (round red dots on legs belowkn) Calf tenderness: negative Diagnosis, Assessment Plan Diagnosis, Assessment Plan Free Text A P: 32 y/o [facility] 02-20-23 [facility] at 32 5/7 weeks transported from [place] at 26.2 for sob, orthopnea, pulm edema. PNC w dr cristina clay 1) IDDM- hgba1c 6.6 at sending 11-13, on lantus 60 bid, humalog 50B, 60L, 70D Consulted rohan, nutrition and DM counselor. fructosamine 11-18 198, 11/30 217, 200, 12-29 180 current insulin dose lantus am/pm 152/160, humalog 106, 122, 160 and metformin to 1000 bid 10- CGM mostly below 200. i spoke [...] labile. pt seen by diab educ and sink maker. disc w rohan. PLAN- cpm, reeval 12-20 [...] and d/w dr jerez at 1736 RPT #:[id number] END OF REPORT [facility] 2022-12-30 12:44:00 [facility] ([facility]) OB Antepartum Prog Note REPORT#:[id number] REPORT STATUS: Signed REPORT INITIALIZATION DATE:12/30/22 TIME: 1243 PATIENT: AMINTA NINO UNIT #: [id number] ROOM/BED: [address] : 92 AGE: 32 SEX: F [...] Resp 18 12/30 1148 FiO2 21 12/28 2030 O2 Delivery Room [...] Plan Free Text A P: 32 y/o [facility] 02-20-23 [facility] at 32 4/7 weeks transported from [place] at 26.2 for sob, orthopnea, pulm edema. PNC w dr cristina clay 1) IDDM- hgba1c 6.6 at sending -, on lantus 60 bid, humalog 50B, 60L, 70D Consulted rohan, nutrition and DM counselor. fructosamine 11-18 198, 11/30 217, 200, current insulin dose lantus am/pm 152/160, humalog 106, 122, 160 and metformin to 1000 bid --Fructosamine pending PLAN- cpm 10-16 on cgm, glu consistently [...] labile. pt seen by diab educ and sink maker. disc w rohan. PLAN- cpm, reeval 12-20 [...] Nose bleeds 10-16- ocean saline spray prn at 1248 RPT #:[id number] END OF REPORT [facility] 2022-12-29 06:46:00 [facility] ([facility]) OB Antepartum Prog Note REPORT#:[id number] REPORT STATUS: Signed REPORT INITIALIZATION DATE:12/29/22 TIME: 645 PATIENT: AMINTA NINO UNIT #: [id number] ROOM/BED: [address] : 92 AGE: 32 SEX: F [...] 102.0 12/29 162 Pulse Ox 100 12/29 1621 B/P 140/76 12/29 162 Temp 98.2 12/29 162 Pulse 89 12/29 1622 Resp 18 12/29 1621 FiO2 21 12/28 2029 O2 Delivery Room air 12/28 2029 Vital Signs Date Temp Pulse Resp B/P B/P Mean Pulse Ox FiO2 12/28-12/29 98.2 76-93 - 117-149/58-76 83.0-104.0 97-100 21 PATIENT WEIGHT: Weight [...] Plan Free Text A P: 32 y/o [facility] 02-20-23 [facility] at 32 3/7 weeks transported from [place] at 26.2 for sob, orthopnea, pulm edema. [...] labile. pt seen by diab educ and sink maker. disc w rohan. PLAN- cpm, reeval - mon 10- occ glu low 67 lunchtime [...] d/t pulm edema, kiran felipe 3) U/S 10- blaise coates vertex, anterior placenta, MATHEUS 8.5 decreased, S/D 4.9 -5.3 increased EFW 1384 gms, 5.6 % low normalinterval growth interval gwoth, BPP 10/19, cervix long closed. PLAN- rescan this 9- KA, S:D 4.9-5.3, EFW 1084, 5.6%, [...] and d/w dr jerez at 1736 RPT #:[id number] END OF REPORT [facility] 2022-12-28 06:57:00 [facility] ([facility]) OB Antepartum Prog Note REPORT#:[id number] REPORT STATUS: Signed REPORT INITIALIZATION DATE:12/28/22 TIME: 656 PATIENT: AMINTA NINO UNIT #: [id number] ROOM/BED: [address] : 92 AGE: 32 SEX: F ATTEND: Jak Herrera MD ADM AUTHOR: Darron Santacruz MD REPT SERVICE DT/TIME: 12/28/22 06 * ALL edits or amendments must be [...] Result Date Time B/P Mean 91.0 12/28 405 Pulse Ox 96 12/28 405 B/P 131/65 12/28 0406 Pulse 86 12/28 040 Resp 18 12/28 040 Temp 97.8 12/27 1202 FiO2 21 12/23 2014 O2 Delivery Room air 12/23 2014 Vital Signs Date Temp Pulse Resp B/P B/P Mean Pulse Ox FiO2 12/27-12/28 97.8 83-101 17-18 131-142/60-73 87.0-102.0 96-99 PATIENT WEIGHT: Weight (lb): [...] Plan Free Text A P: 32 y/o [facility] 02-20-23 [facility] at 32 2/7 weeks transported from [place] at 26.2 for sob, orthopnea, pulm edema. [...] be careful. PLAN- fuctosamine in am, cpm 12-27 on cgm, glu consistently high, probably [...] labile. pt seen by diab educ and sink maker. disc w rohan. PLAN- cpm, reeval - [...] d/t pulm edema, kiran felipe 3) U/S 10- blaise coates vertex, anterior placenta, MATHEUS 8.5 decreased, S/D 4.9 -5.3 increased EFW 1384 gms, 5.6 % low normalinterval growth interval gwoth, BPP 10/19, cervix long closed. PLAN- rescan this weekend [...] and d/w dr josé at 1132 RPT #:[id number] END OF REPORT [facility] 2022-12-27 07:31:00 [facility] ([facility]) OB Antepartum Prog Note REPORT#:[id number] REPORT STATUS: Signed REPORT INITIALIZATION DATE:12/27/22 TIME: 730 PATIENT: AMINTA NINO UNIT #: [id number] ROOM/BED: [address] : 92 AGE: 32 SEX: F [...] Plan Free Text A P: 32 y/o [facility] 02-20-23 [facility] at 32 1/7 weeks transported from [place] at 26.2 for sob, orthopnea, pulm edema. PNC w dr cristina clay 1) IDDM- hgba1c 6.6 at sending 11-13, on lantus 60 bid, humalog 50B, 60L, 70D Consulted rohan, nutrition and DM counselor. fructosamine 11-18 198, 11/30 217, 200, current insulin dose lantus 132/138. humalog B92 L 106, D138 and metformin to 1000 bid - on cgm, glu consistently high, probably [...] one until tue. PLAN- finger sticks for tues/tue 10-6 glu very labile. pt seen by diab educ and sink maker. disc w rohan. PLAN- cpm, reeval 10- mon 10-5 occ [...] PLAN- saline gargles 15) Nose bleeds 12-27- saline spray prn Pt seen and d/w dr ochoa at 1354 RPT #:[id number] END OF REPORT [facility] 2022-12-26 21:36:00 [facility] ([facility]) MF Consultation Note REPORT#:[id number] REPORT STATUS: Signed REPORT INITIALIZATION DATE:12/26/22 TIME: 2135 PATIENT: AMINTA NINO UNIT #: [id number] ROOM/BED: [address] : 92 AGE: 32 SEX: F ATTEND: Jak Herrera MD ADM AUTHOR: Jak Herrera MD REPT SERVICE DT/TIME: 12/26/222135 * ALL edits or amendments must be made on the electronic/computer document * History of Present Illness HPI Requesting clinician: Dr Millan Reason for consult: Higher blood pressures Chief complaint: Transferred for [facility] PCP: PCP: Tad Jordan MD HPI: H/O diabetes H/O obesity H/O recent episode of pneumonia History Past History Allergies: Coded Allergies: latex (SWELLING 11/15/22) Objective Physical Exam VS/I O: Last Documented: Result Date Time B/P Mean 106.0 12/26 2036 B/P 151/76 12/26 2036 Pulse 92 12/26 2036 Pulse Ox 98 12/26 1044 Resp 17 12/25 165 Temp 98.1 12/25 1613 FiO2 21 12/23 2014 O2 Delivery Room air 12/23 2014 PATIENT WEIGHT: Weight (lb): 250 Weight (oz): Weight (kg): 113.600 Results Findings/Data: Laboratory Tests 12/26 1206 Chemistry Sodium (135 - 145 mEq/L) 137 [...] 4.8 gm/dL) 2.6 L Laboratory Tests 12/26 1206 Coagulation PT (9.8 - 13.3 secs) 10.0 PTT ([place]) (26.2 - 37.2 secs) 29 Laboratory Tests 12/26 1206 Hematology WBC (6.5 - 12.3 K/mm3) 12.4 [...] % (Auto) (14.5 - 29.7 %) 27.0 [place] % (Auto) (3.6 - 10.2 %) 6.6 Eos % (Auto) (0.0 - 3.0 %) 0.5 Baso % (Auto) (0.1 - 0.9 %) 0.3 Neut # (Auto) (K/mm3) 8.0 Lymph # (Auto) (K/mm3) 3.3 [place] # (Auto) (K/mm3) 0.8 Eos # (Auto) (K/mm3) 0.06 Baso # (Auto) (K/mm3) 0.0 Bedside US: -Coates -Cephalic -MATHEUS: 8.0 -UA: Normal waveform; UA-PI: 1.46 (99th p/GA) -MCA: Norml waveform; MCA-PI: 1.75 (26th p/GA) -CPR: 1.2 (1st p/GA) Impression: Evidence of increased placental vascualr resistance and JIG FITTER blood flow redistribution No Doppler or fluid [...] 5-Respiratory consult for CPAP at night at 2150 RPT #:[id number] END OF REPORT [facility] 2022-12-26 16:37:00 [facility] ([facility]) Clinical Note REPORT#:[id number] REPORT STATUS: Signed REPORT INITIALIZATION DATE:12/26/22 TIME: 1636 PATIENT: AMINTA NINO UNIT #: [id number] ROOM/BED: [address] : 92 AGE: 32 SEX: F ATTEND: Jak Herrera MD ADM AUTHOR: Sterling Millan MD REPT SERVICE DT/TIME: 12/26/221636 * ALL edits or amendments must be [...] worsen due to steroids. at 1640 RPT #:[id number] END OF REPORT [facility] 2022-12-26 08:13:00 [facility] ([facility]) OB Antepartum Prog Note REPORT#:[id number] REPORT STATUS: Signed REPORT INITIALIZATION DATE:12/26/22 TIME: 812 PATIENT: AMINTA NINO UNIT #: [id number] ROOM/BED: 5048 : 92 AGE: 32 SEX: F ATTEND: Jak Herrera MD ADM AUTHOR: Sterling Millan MD REPT SERVICE DT/TIME: 12/26/22812 * ALL edits or amendments must be [...] Pulse 88 12/26 0534 Pulse Ox 94 12/25 2048 Resp 17 12/25 1652 Temp 98.1 12/25 [...] Chemistry Sodium (135 - 145 mEq/L) 135 / 1438 Potassium (3.5 - 5.0 mEq/L) 4.3 11/22 1438 Chloride (100 - 115 mEq/L) 100 11/22 1438 Carbon Dioxide (22 - 31 mEq/L) 24 11/22 1438 Anion Gap (10 - 20) 15.50 11/22 1438 BUN (7 - 18 mg/dL) 13 11/22 1438 Creatinine (0.5 - 1.0 mg/dL) 0.5 09/ 1438 Glomerular Filtr Rate (>60 ml/min) 129 09 1438 Glucose (65 - 110 mg/dL) 169 [...] TIBC (265 - 497 MCG/DL) 634 H 11/23 1326 % Saturation (12 - 57 %) 20 11/23 1326 Ferritin (6.24 - 137 NG/ML) 63.3 11/23 1326 Total Bilirubin (0.2 - 1.0 mg/dL) 0.3 09 1438 AST (15 - 37 units/L) 15 09 1438 ALT (12 - 78 units/L) 18 09 1438 Total Alk Phosphatase (46 - 116 units/L) 104 09 1438 B-Natriuretic Peptide (0 - 100 pg/mL) 0.38 11/23 1326 Total Protein (6.3 - 8.2 gm/dL) 6.9 11/22 1438 Albumin (3.4 - 4.8 gm/dL) 2.7 L 11/22 1438 TSH (0.36 - 3.74) 2.13 11/23 1326 Hematology WBC (6.5 - 12.3 K/mm3) 14.5 H 11/22 1438 RBC (3.51 - 4.69 M/mm3) 4.77 H 11/22 1438 Hgb (10.1 - 13.8 g/dL) 13.2 11/22 1438 Hct (32.5 - 41.8 %) 37.8 11/22 1438 MCV (84.6 - 96.6 fL) 79.2 L 11/22 1438 MCH (27.3 - 33.9 pg) 27.7 11/22 1438 MCHC (32.0 - 34.2 gm/dL) 34.9 H 11/22 143 RDW (12.2 - 16.3 %) 13.5 11/22 1438 Plt Count (134 - 363 K/mm3) 305 11/22 143 MPV (9.2 - 12.7 fL) 10.1 11/22 1438 Neut % (Auto) (57.9 - 77.3 %) 70.7 11/22 1438 Lymph % (Auto) (14.5 - 29.7 %) 22.8 11/22 1438 [place] % (Auto) (3.6 - 10.2 %) 5.2 11/22 1438 Eos % (Auto) (0.0 - 3.0 %) 0.4 / 1438 Baso % (Auto) (0.1 - 0.9 %) 0.3 11/22 1438 Neut # (Auto) (K/mm3) 10.2 11/22 1438 Lymph # (Auto) (K/mm3) 3.3 11/22 1438 [place] # (Auto) (K/mm3) 0.8 11/22 1438 Eos # (Auto) (K/mm3) 0.06 11/22 1438 Baso # (Auto) (K/mm3) 0.0 11/22 1437 Serology Treponema pallidum Ab (NONREACTIVE) NONREACTIVE 11/15 164 Chlamydia DNA Probe (Not Detecte) NOT DETECTED 11/26 1729 Hep Bs Antigen (NONREACTIVE) NONREACTIVE 11/15 164 Hepatitis C Antibody (NONREACTIVE) NONREACTIVE 11/15 164 Hep C Ab Signal/Cutoff (<0.80) 0.04 11/15 1641 HIV 1 2 Antibody (NONREACTIVE) NONREACTIVE 11/15 1641 N.gonorrhoeae DNA Probe (Not Detecte) NOT DETECTED 11/26 1729 Rubella Screen (IUnit/ml) 8.2 11/23 1326 Urines Urine Color (YELLOW) YELLOW 11/22 1437 Urine Appearance (CLEAR) CLEAR 11/22 1437 Urine pH (5 - 9) 6.0 11/22 1437 Ur Specific [place] (1.001 - 1.035) 1.023 11/22 1437 Urine Protein (NEG) NEGATIVE 11/22 1437 Urine Glucose (UA) (NEG) NEGATIVE 11/22 1437 Urine Ketones (NEG) NEGATIVE 11/22 143 Urine Blood (NEG) NEG 11/22 1437 Urine Nitrite (NEG) NEG 11/22 143 Urine Bilirubin (NEG) NEGATIVE 11/22 1437 Urine Urobilinogen (NEG mg/dL) NEGATIVE 11/22 1437 Ur Leukocyte Esterase (NEG) NEG 11/22 143 Urine RBC (NONE SEEN #/hpf) 0-2 11/22 143 Urine WBC (NONE SEEN #/hpf) 3-5 H 11/22 1438 Ur Epithelial Cells (RARE - FEW #/HPF) RARE 11/22 1438 Urine Bacteria (RARE - FEW /HPF) RARE 11/22 1438 Urine Mucus (NONE SEEN) RARE 11/22 143 Ur Random Creatinine (mg/dL) 135.6 11/22 143 U Random Total Protein (mg/dL) 30.4 11/22 1437 Urine Total Volume (ML) 2600 11/17 2029 Creatinine Clearance (70 - 120 ml/min) 164 H 11/17 2029 Ur Total Protein 24 Hr (20 - 150 mg/24HR) 554 *H 11/17 2029 Protein/Creatinin Ratio (<200 mg/gcrea) 224.1 H 11/22 1437 Diagnosis, Assessment Plan Diagnosis, Assessment Plan Free text A P: 32 y/o [facility] 02-20-23 [facility] at 32 weeks transported from [place] 11-15-22 at 26.2 for sob, orthopnea, pulm [...] by dinner tomorrow 12-20 i spoke w orzeck and reviewed cgm, bs very labile, cgm will run out tonight. mom cant bring new one until tue. PLAN- finger sticks for /tue- glu very labile. pt seen by diab educ and sink maker. disc w rohan. PLAN- cpm, reeval 12-20 [...] 10-12 bp 130-140/60-70, no other s/s preE. 12/26 [...] Pruritic red spots on legs- per dr orzeck they seem to me self-inflicted. PLAN- hc cream and dph prn 14) "Bad gums"- h/o same, afraid to see dentist. PLAN- saline gargles at 0933 Addendum 1: 12/26/221414 by Sterling Millan MD PIH labs are nl. meds adjusted and bp's improved so far at 1415 RPT #:[id number] END OF REPORT [facility] 2022-12-25 11:36:00 [facility] ([facility]) OB Antepartum Prog Note REPORT#:[id number] REPORT STATUS: Signed REPORT INITIALIZATION DATE:12/25/22 TIME: 1135 PATIENT: AMINTA NINO UNIT #: [id number] ROOM/BED: [address] : 92 AGE: 32 SEX: F ATTEND: Jak Herrera MD ADM AUTHOR: Stephanie Cota MD REPT SERVICE DT/TIME: 12/25/22 113 * ALL edits or amendments must be [...] 32 y/o [facility] 02-20-23 [facility] at 32 weeks transported from [place] 11-15-22 at 26.2 for sob, orthopnea, pulm [...] labile. pt seen by diab educ and sink maker. disc w rohan. PLAN- cpm, reeval 12-20 [...] U/S - blaise coates vertex, anterior placenta, MATHESU 8.5 decreased, S/D 4.9 -5.3 increased EFW 1384 gms, 5.6 % low normalinterval growth interval gwoth, BPP 10/19, cervix long closed 9- KA, S:D 4.9-5.3, EFW 1084, 5.6%, [...] dentist. PLAN- saline gargles at 1341 RPT #:[id number] END OF REPORT [facility] 2022-12-24 06:57:00 [facility] ([facility]) OB Antepartum Prog Note REPORT#:[id number] REPORT STATUS: Signed REPORT INITIALIZATION DATE:12/24/22 TIME: 656 PATIENT: AMINTA NINO UNIT #: [id number] ROOM/BED: [address] : 92 AGE: 32 SEX: F ATTEND: Jak Herrera MD ADM AUTHOR: Darron Santacruz MD REPT SERVICE DT/TIME: 12/24/22 0657 * ALL edits or amendments must be made on the electronic/computer document * Subjective Subjective Patient reports: Patient reports: Yes normal movement, No abdominal pain, No vaginal bleeding, No leaking fluid, No contractions Comments: c/o red spots on legs, pruritic, also c/o "Bad gums"- h/o same, afraid to see dentist. Objective VS: Last Documented: Result Date Time B/P Mean 93.0 12/24 115 Pulse Ox 97 12/24 1152 B/P 130/67 12/25 1151 Temp 97.9 12/24 1152 Pulse 88 12/24 [...] Plan Free Text A P: 32 y/o [facility] 02-20-23 [facility] at 31 5/7 weeks transported [place] at 26.2 for sob, orthopnea, pulm edema. PNC w dr cristina clay 1) IDDM- hgba1c 6.6 at sending 11-13, on lantus 60 bid, humalog 50B, 60L, 70D Consulted rohan, nutrition and DM counselor. fructosamine 11-18 198, 11/30 217, 200, current insulin dose lantus 132/138. humalog B92 L 106, D138 10-13 back on cgm, reviewed w dr madrigal at bedside PLAN- incr metformin to 1000 bid 10-11 back on cgm. PLAN- i [...] labile. pt seen by diab educ and sink maker. disc w rohan. PLAN- cpm, reeval 12-20 [...] and d/w dr jerez at 1309 RPT #:[id number] END OF REPORT [facility] 2022-12-23 07:20:00 [facility] ([facility]) OB Antepartum Prog Note REPORT#:[id number] REPORT STATUS: Signed REPORT INITIALIZATION DATE:12/23/22 TIME: 719 PATIENT: AMINTA NINO UNIT #: [id number] ROOM/BED: [address] : 92 AGE: 32 SEX: F [...] Plan Free Text A P: 32 y/o [facility] 02-20-23 [facility] at 31 4/7 weeks transported from [place] at 26.2 for sob, orthopnea, pulm edema. [...] labile. pt seen by diab educ and sink maker. disc w rohan. PLAN- cpm, reeval 12-20 [...] and d/w dr josé at 1622 RPT #:[id number] END OF REPORT [facility] 2022-12-23 06:53:00 [facility] ([facility]) OB Antepartum Prog Note REPORT#:[id number] REPORT STATUS: Signed REPORT INITIALIZATION DATE:12/23/22 TIME: 06 PATIENT: AMINTA NINO UNIT #: [id number] ROOM/BED: [address] : 92 AGE: 32 SEX: F [...] 12/21 2030 O2 Delivery Room air 12/21 2030 Vital Signs Date Temp Pulse Resp [...] 32 y/o [facility] 02-20-23 [facility] at 29 weeks transported from [place] 11-15-22 at 26.2 for sob, orthopnea, pulm [...] over weekend. will have diab educ and sink maker see pt again soon. will review on [...] bv, urine gc/chlam neg at 0655 RPT #:[id number] END OF REPORT [facility] 2022-12-22 07:08:00 [facility] OB Antepartum Prog Note REPORT#:[id number] REPORT STATUS: Signed REPORT INITIALIZATION DATE:12/22/22 TIME: 707 PATIENT: AMINTA NINO UNIT #: [id number] ROOM/BED: [address] : 92 AGE: 32 SEX: F ATTEND: Jak Herrera MD ADM AUTHOR: Darron Santacruz MD REPT SERVICE DT/TIME: 12/22/22 0708 * ALL edits or amendments must be [...] Pulse 82 12/22 1001 Resp 17 12/22 1000 FiO2 21 12/21 2029 O2 Delivery Room [...] Plan Free Text A P: 32 y/o [facility] 02-20-23 [facility] at 31 3/7 weeks transported from [place] at 26.2 for sob, orthopnea, pulm edema. [...] labile. pt seen by diab educ and sink maker. disc w rohan. PLAN- cpm, reeval 12-20 [...] and d/w dr jerez at 1232 RPT #:[id number] END OF REPORT [facility] 2022-12-21 07:15:00 [facility] ([facility]) OB Antepartum Prog Note REPORT#:[id number] REPORT STATUS: Signed REPORT INITIALIZATION DATE:12/21/22 TIME: 714 PATIENT: AMINTA NINO UNIT #: [id number] ROOM/BED: [address] : 92 AGE: 32 SEX: F [...] Pulse 86 12/21 1437 Resp 16 12/21 1437 O2 Delivery Room air 12/20 1100 FiO2 [...] Text A P: 32 y/o [facility] 02-20-23 [facility] at 31 2/7 weeks transported from [place] at 26.2 for sob, orthopnea, pulm edema. [...] lantus 115/120, humalog B80, L92, D 120 10-10 doing fingersticks fbs 92, B 80 L 138. PLAN- cpm, cgm should be back on by dinner tomorrow 12-20 i spoke w rohan and reviewed cgm, bs very labile, cgm will run out tonight. mom cant bring new one until tue. PLAN- finger sticks for /tue- glu very labile. pt seen by diab educ and sink maker. disc w rohan. PLAN- cpm, reeval 10- mon 10-5 occ [...] and d/w dr josé at 1518 RPT #:[id number] END OF REPORT [facility] 2022-12-20 07:39:00 [facility] ([facility]) OB Antepartum Prog Note REPORT#:[id number] REPORT STATUS: Signed REPORT INITIALIZATION DATE:12/20/22 TIME: 738 PATIENT: AMINTA NINO UNIT #: [id number] ROOM/BED: 5048-A : 92 AGE: 32 SEX: F ATTEND: Jak Herrera MD ADM AUTHOR: Darron Santacruz MD REPT SERVICE DT/TIME: 12/20/22 0739 * ALL edits or amendments must be made on the electronic/computer document * Subjective Subjective Patient reports: Patient reports: Yes no complaints, Yes normal movement, No abdominal pain, No vaginal bleeding, No leaking fluid, No contractions Objective VS: Last Documented: Result Date Time B/P Mean 117.0 12/20 172 B/P 151/94 12/20 1726 Pulse 110 12/20 1726 Resp 16 12/20 1726 Pulse Ox 98 12/20 1321 O2 Delivery [...] Plan Free Text A P: 32 y/o [facility] 02-20-23 [facility] at 31 1/7 weeks transported from [place] at 26.2 for sob, orthopnea, pulm edema. [...] lantus 115/120, humalog B80, L92, D 120 10-9 i spoke kushal madrigal and reviewed cgm, bs very labile, cgm will run out tonight. mom cant bring new one until tue. PLAN- finger sticks for /tue 10-6 glu very labile. pt seen by diab educ and sink maker. disc w rohan. PLAN- cpm, reeval 10-9 mon 10-5 occ [...] Pt seen and d/w dr ochoa at 1845 RPT #:[id number] END OF REPORT [facility] 2022-12-19 11:50:00 [facility] ([facility]) [facility] Consultation Note REPORT#:[id number] REPORT STATUS: Signed REPORT INITIALIZATION DATE:12/19/22 TIME: 115 PATIENT: AMINTA NINO UNIT #: [id number] ROOM/BED: [address] : 92 AGE: 32 SEX: F ATTEND: Jak Herrera MD ADM AUTHOR: Shabnam Jerez MD REPT SERVICE DT/TIME: 12/19/22 1150 * ALL edits or amendments must be made on the electronic/computer document * History of Present Illness HPI Reason for consult: ultrasound Chief complaint: Transferred for [facility] History Past History Allergies: Coded Allergies: latex (SWELLING 11/15/22) Objective Physical Exam VS/I O: Vital Signs: Date Time Temp Pulse Resp B/P B/P Pulse O2 O2 Flow FiO2 Mean Ox Delivery Rate 12/19 952 96.0 12/19 952 83 130/74 98 12/19 0641 90.0 12/19 0641 85 131/63 12/19 0154 105.0 12/19 0154 88 146/77 12/19 2327 80 98 21 12/18 2240 101.0 12/18 2240 88 141/76 12/18 2049 98 Room air 21 12/18 1555 98.0 12/18 1555 86 143/69 Last Documented: Result Date Time B/P Mean 96.0 12/19 952 Pulse Ox 98 12/19 952 B/P 130/74 12/19 0953 Pulse 83 12/19 0953 FiO2 21 12/19 2327 O2 Delivery Room air 12/18 2049 Temp 97.9 12/18 1148 Resp 18 12/18 114 PATIENT WEIGHT: Weight (lb): 250 Weight (oz): Weight (kg): 113.600 HEENT: normocephalic Cardiovascular: regular rate and rhythm Respiratory: clear to auscultation Abdomen: non-tender, soft Extremities: edema (trace) Neuro/JIG FITTER: alert, oriented x 3, normal speech Skin: [...] 48 continue current care at 1444 RPT #:[id number] END OF REPORT [facility] 2022-12-19 09:47:00 [id number] [facility] [address] [address] PATIENT NAME: AMINTA NINO ADMIT DATE: 11/15/22 ACCOUNT NO: [id number] ROOM NO: 5048 AGE: 32 SEX: F ADMITTING PHYSICIAN: Jak Herrera MD ATTENDING PHYSICIAN: Jak Herrera MD DATE: 12/19/2022 ATTENDING PHYSICIAN: [facility]. DATE OF EVALUATION: On 12/19/2022 at [...] ABDOMEN: Soft and nontender. Strip shows moderate osrv-vz-yrwo variability, positive accelerations, no regular contractions. PLAN: We will continue current care. Dictated By: Jose Roberto Webber MD Date Dictated: 12/19/2022 09:47:37 Date Transcribed: 12/19/2022 10:14:47 [employer]VSR Receipt ID: [id number] Authenticated by Jose Roberto Webber MD On 12/20/2022 05:27:50 PM at 0527 PATIENT NAME: AMINTA NINO [facility] 2022-12-18 07:04:00 2027-2007 [facility] [address] [place], [place] [address] PATIENT NAME: AMINTA NINO ADMIT DATE: 11/15/22 ACCOUNT NO: [id number] ROOM NO: 5048 AGE: 32 SEX: F ADMITTING PHYSICIAN: Jak Herrera MD ATTENDING PHYSICIAN: Jak Herrera MD DATE: 12/18/2022 ANTEPARTUM PROGRESS NOTE ATTENDING PHYSICIAN: [facility]. TIME OF EVALUATION: Approximately 6:15 a.m. [...] or epigastric pain. Her strip shows moderate qlnq-pl-itxu variability, positive accels, no regular contractions. PLAN: We will continue current care. Dictated By: Jose Roberto Webber MD Date Dictated: 12/18/2022 07:04:30 Date Transcribed: 12/18/2022 07:19:23 [employer]/ADDY Receipt ID: [id number] Authenticated by Jose Roberto Webber MD On 12/20/2022 05:27:50 PM at 0527 PATIENT NAME: AMINTA NINO [facility] 2022-12-17 06:58:00 [facility] ([facility]) OB Antepartum Prog Note REPORT#:[id number] REPORT STATUS: Signed REPORT INITIALIZATION DATE:12/17/22 TIME: 657 PATIENT: AMINTA NINO UNIT #: [id number] ROOM/BED: 5048-A : 92 AGE: 32 SEX: F ATTEND: Jak Herrera MD ADM AUTHOR: Darron Santacruz MD REPT SERVICE DT/TIME: 12/17/22 0658 * ALL edits or amendments must be made on the electronic/computer document * Subjective Subjective Patient reports: Patient reports: Yes no complaints, Yes normal movement, No abdominal pain, No vaginal bleeding, No leaking fluid, No contractions Objective VS: Last Documented: Result Date Time B/P Mean 100.0 12/17 1227 Pulse Ox 100 12/17 1227 B/P 139/75 12/17 1227 Temp 98.3 12/17 1227 Pulse 82 12/17 1227 Resp 16 12/17 1227 Vital Signs Date Temp Pulse Resp [...] Plan Free Text A P: 32 y/o [facility] 02-20-23 [facility] at 30 5/7 weeks transported from [place] at 26.2 for sob, orthopnea, pulm edema. [...] labile. pt seen by diab educ and sink maker. disc w rohan. PLAN- cpm, reeval - mon 10-5 occ glu low 67 lunchtime humalog held. disc w dr madrigal. rec cpm 10-2 cgm stable, remains above 200 most of the time, occ lows. pt thinks this is d/t diet. fructo 9- 200. i showed graph to dr madrigal, [...] B80, L92, D 102, fructosamine 9- 217 8) ADHD/depression- stable on seroquel, zoloft [...] and d/w dr jerez at 1309 RPT #:[id number] END OF REPORT [facility] 2022-12-16 06:53:00 [facility] ([facility]) OB Antepartum Prog Note REPORT#:[id number] REPORT STATUS: Signed REPORT INITIALIZATION DATE:12/16/22 TIME: 652 PATIENT: AMINTA NINO UNIT #: [id number] ROOM/BED: [address] : 92 AGE: 32 SEX: F [...] Result Date Time B/P Mean 89.0 12/16 1715 Pulse Ox 99 12/16 1715 B/P 132/62 12/16 1715 Temp 98.1 12/16 1715 Pulse 88 12/16 1715 Resp 16 12/16 1204 Vital Signs Date [...] Plan Free Text A P: 32 y/o [facility] 02-20-23 [facility] at 30 4/7 weeks transported from [place] at 26.2 for sob, orthopnea, pulm edema. [...] Consulted rohan, nutrition and DM counselor. fructosamine 9- 198, [...] and d/w dr josé at 1812 RPT #:[id number] END OF REPORT [facility] 2022-12-15 06:49:00 [facility] ([facility]) OB Antepartum Prog Note REPORT#:[id number] REPORT STATUS: Signed REPORT INITIALIZATION DATE:12/15/22 TIME: 648 PATIENT: AMINTA NINO UNIT #: [id number] ROOM/BED: [address] : 92 AGE: 32 SEX: F [...] Ox 98 12/15 131 B/P 133/74 12/15 1312 Temp 97.9 12/15 1312 Pulse 86 12/15 1312 Resp 16 12/15 1312 Vital Signs Date Temp Pulse Resp B/P [...] [facility] at 30 3/7 weeks transported from [place] at 26.2 for sob, orthopnea, pulm edema. [...] Consulted rohan, nutrition and DM counselor. fructosamine 9- 198, [...] and d/w dr jerez at 1610 RPT #:[id number] END OF REPORT [facility] 2022-12-14 06:59:00 [facility] ([facility]) OB Antepartum Prog Note REPORT#:[id number] REPORT STATUS: Signed REPORT INITIALIZATION DATE:12/14/22 TIME: 658 PATIENT: AMINTA NINO UNIT #: [id number] ROOM/BED: [address] : 92 AGE: 32 SEX: F [...] Result Date Time B/P Mean 109.0 12/14 914 B/P 141/86 12/14 914 Pulse 88 12/14 914 Temp 98.0 12/13 1835 Resp 18 12/13 [...] Plan Free Text A P: 32 y/o [facility] 02-20-23 [facility] at 30 2/7 weeks transported from [place] at 26.2 for sob, orthopnea, pulm edema. [...] q8 7) IDDM- hgba1c 6.6 at sending 9-2, [...] and d/w dr josé at 1303 RPT #:[id number] END OF REPORT [facility] 2022-12-13 19:28:00 [facility] ([facility]) Clinical Note REPORT#:[id number] REPORT STATUS: Signed REPORT INITIALIZATION DATE:12/13/22 TIME: 1927 PATIENT: AMINTA NINO UNIT #: [id number] ROOM/BED: [address] : 92 AGE: 32 SEX: F ATTEND: Jak Herrera MD ADM AUTHOR: Haley Saleh MD REPT SERVICE DT/TIME: 12/13/221927 * ALL edits or amendments must be made on the electronic/computer document * Clinical Note Note: GLASS [employer]ISH[employer] Hospitalist coverage overnight: Notified by RN of BPs with systolics of 160-170s. Pt given 10 mg of po nifedipine. Repeat BPs wnl. Dr Saleh at 1930 RPT #:[id number] END OF REPORT [facility] 2022-12-13 07:57:00 [facility] ([facility]) OB Antepartum Prog Note REPORT#:[id number] REPORT STATUS: Signed REPORT INITIALIZATION DATE:12/13/22 TIME: 756 PATIENT: AMINTA NINO UNIT #: [id number] ROOM/BED: [address] : 92 AGE: 32 SEX: F [...] Plan Free Text A P: 32 y/o [facility] 02-20-23 [facility] at 29 5/7 weeks transported from [place] at 26.2 for sob, orthopnea, pulm edema. [...] AFT 9.5, BPP 8/8, cx long closed 9- gei Coates Cephalic CGA c/w dates [...] still some labile BPs, continue to follow. 10-2 bp 130-150/70-90, no other s/s preE 7) IDDM- hgba1c 6.6 at sending 11-13, on lantus 60 bid, humalog 50B, 60L, 70D Consulted rohan nutrition and DM counselor. fructosamine 11-18 198, 11/30 217, 10 -2 pending. on lantus 115/120, humalog B80, L92, D 120 10-2 cgm stable, remains above 200 most of the time, occ lows. pt thinks this is d/t diet. fructo 9- 200. i showed graph to dr madrigal, [...] B80, L92, D 102, fructosamine 9- 217 8) ADHD/depression- stable on seroquel, zoloft [...] and d/w dr ochoa at 1531 RPT #:[id number] END OF REPORT [facility] 2022-12-12 21:45:00 [facility] ([facility]) OB Antepartum Prog Note REPORT#:[id number] REPORT STATUS: Signed REPORT INITIALIZATION DATE:12/12/22 TIME: 2144 PATIENT: AMINTA NINO UNIT #: [id number] ROOM/BED: 5048-A : 92 AGE: 32 SEX: [...] Ox 82 12/12 1941 B/P 155/81 12/12 1942 Pulse 253 12/12 194 Temp 98.2 12/12 1745 Resp 16 12/12 [...] Plan Free text A P: 32 y/o [facility] 02-20-23 [facility] at 33 6/7 weeks transported from [place] at 26.2 for sob, orthopnea, pulm edema. [...] labile BPs, continue to follow. 10- bp normal to mild range, no other s/s preE 7) IDDM- hgba1c 6.6 at sending 9-, on lantus 60 bid, humalog 50B, 60L, 70D Consulted rohan, nutrition and DM counselor. fructosamine - 198, 11/30 217, 10 - pending. on [...] Nifedipine (PO) protocol prn at 2149 RPT #:[id number] END OF REPORT [facility] 2022-12-11 12:23:00 [facility] ([facility]) OB Antepartum Prog Note REPORT#:[id number] REPORT STATUS: Signed REPORT INITIALIZATION DATE:12/11/22 TIME: 1223 PATIENT: AMINTA NINO UNIT #: [id number] ROOM/BED: [address] : 92 AGE: 32 SEX: F [...] Plan Free text A P: 32 y/o [facility] 02-20-23 [facility] at 29 6/7 weeks transported from [place] at 26.2 for sob, orthopnea, pulm edema. [...] pt's request, 1 hr TID after meals 12-11 nst cat 1, occ sharp variable but [...] still some labile BPs, continue to follow. 12-11 bp 130-140/60-80, no other s/s preE 7) [...] increase if she has higher carb meal 9-21 glu sig drop. pt asympt. lunch humalog [...] Nifedipine (PO) protocol prn at 1228 RPT #:[id number] END OF REPORT [facility] 2022-12-10 06:56:00 [facility] ([facility]) OB Antepartum Prog Note REPORT#:[id number] REPORT STATUS: Signed REPORT INITIALIZATION DATE:12/10/22 TIME: 655 PATIENT: AMINTA NINO UNIT #: [id number] ROOM/BED: [address] : 92 AGE: 32 SEX: F [...] 918 B/P 157/88 12/10 918 Temp 97.9 09/29 0919 Pulse 77 12/10 0919 Resp 18 12/10 0919 Vital Signs Date Temp Pulse Resp B/P [...] Plan Free Text A P: 32 y/o [facility] 02-20-23 [facility] at 29 5/7 weeks transported from [place] at 26.2 for sob, orthopnea, pulm edema. [...] pt's request, 1 hr TID after meals 12-10 nst cat 1, occ sharp variable but [...] abd. all asympt. no evidence of std. 9- wet mount neg for trich and bv, urine gc/chlam neg 12) pt requests to dc IV. I d/w her may need for BPmeds or diabetes meds, but she says we can stick her again if needed added Nifedipine (PO) protocol prn Pt seen and d/w dr jerez at 1212 RPT #:[id number] END OF REPORT [facility] 2022-12-09 07:19:00 [facility] ([facility]) OB Antepartum Prog Note REPORT#:[id number] REPORT STATUS: Signed REPORT INITIALIZATION DATE:12/09/22 TIME: 718 PATIENT: AMINTA NINO UNIT #: [id number] ROOM/BED: [address] : 92 AGE: 32 SEX: F [...] 32 y/o [facility] 02-20-23 [facility] at 29 4/7 weeks transported from [place] at 26.2 for sob, orthopnea, pulm edema. [...] AFT 9.5, BPP 8/8, cx long closed 9- gei Coates Cephalic CGA c/w dates [...] pt's request, 1 hr TID after meals 9-28 had occ sharp variables last pm, now [...] and d/w dr jerez at 1314 RPT #:[id number] END OF REPORT [facility] 2022-12-08 10:18:00 [id number] [facility] [address] [place], [place] [address] PATIENT NAME: AMINTA NINO ADMIT DATE: 11/15/22 ACCOUNT NO: [id number] ROOM NO: 5048 AGE: 32 SEX: F ADMITTING PHYSICIAN: Jak Herrera MD ATTENDING PHYSICIAN: Jak Herrera MD [facility] Consult Aminta Nino PAC: [id number] Note Date: 12/08/2022 Note Time: 09:00:00 Place [...] PATIENT NAME: AMINTA NINO Comment Transported from [place] 11-15-22 at 26.2 for sob, orthopnea, pulmonary edema. PNC w Dr. Cristina Clay Present Plan Expectant management Recommendations I have reviewed the mother`s medical chart. I met with the mother in [facility] room # 0736. Based on the gestational age of 29 weeks gestation, there is some risk for mortality and significant risk for handicap if surviving. Using the 2018 [employer] Survival/Mortality Table, survival of infants admitted to [...] desires further discussion or clarification. PATIENT NAME: VINCENT NINORASHEEDA BANEGAS Total clinician time devoted to the patient on the day of this visit excluding time spent on other separately reported services was 35.00 minutes. Authenticated by: ELÍAS GARCIA MD Date/Time: 12/08/2022 10:18 Authenticated by Elías Garcia MD On 12/12/2022 06:18:25 PM at 0618 PATIENT NAME: AMINTA NINO [facility] 2022-12-08 06:46:00 [facility] ([facility]) OB Antepartum Prog Note REPORT#:[id number] REPORT STATUS: Signed REPORT INITIALIZATION DATE:12/08/22 TIME: 06 PATIENT: AMINTA NINO UNIT #: [id number] ROOM/BED: [address] : 92 AGE: 32 SEX: F [...] Result Date Time B/P Mean 96.0 12/08 0858 B/P 133/70 12/08 0858 Pulse 77 12/08 0858 Temp 98.1 12/08 0434 Resp 16 12/08 0434 Pulse Ox 98 12/08 0118 Vital [...] Plan Free Text A P: 32 y/o [facility] 02-20-23 [facility] at 29 3/7 weeks transported from [place] at 26.2 for sob, orthopnea, pulm edema. [...] AFT 9.5, BPP 8/8, cx long closed - gei Coates Cephalic [...] keeping insulin same fornow. diab educ and sink maker saw again 12-02 glu sig drop. pt [...] and d/w dr jerez at 1254 RPT #:[id number] END OF REPORT [facility] 2022-12-07 08:54:00 [facility] ([facility]) OB Antepartum Prog Note REPORT#:[id number] REPORT STATUS: Signed REPORT INITIALIZATION DATE:12/07/22 TIME: 853 PATIENT: AMINTA NINO UNIT #: [id number] ROOM/BED: [address] : 92 AGE: 32 SEX: F [...] Plan Free Text A P: 32 y/o [facility] 02-20-23 [facility] at 29 2/7 weeks transported from [place] at 26.2 for sob, orthopnea, pulm edema. [...] same fornow. will have diab educ and sink maker see pt again soon. 12-02 glu sig [...] and d/w dr josé at 1434 RPT #:[id number] END OF REPORT [facility] 2022-12-06 11:07:00 [facility] ([facility]) OB Antepartum Prog Note REPORT#:[id number] REPORT STATUS: Signed DATE:12/06/22 TIME: 1107 PATIENT: AMINTA NINO UNIT #: [id number] ROOM/BED: [facility] : 92 AGE: 32 SEX: F ATTEND: [...] on, and requests to get up and tacking stitch remover some--she feels this may lower her requirements. [...] Plan Free Text A P: 32 y/o [facility] 02-20-23 [facility] at 29 1/7 weeks transported from [place] at 26.2 for sob, orthopnea, pulm edema. PNC w dr cristina clay 1) Pulm edema- echo at sending wnl, pt feels better since adm, had cxr on adm w min pulm edema. PLAN- cpm BNP <30, recheck also low 3.8] 2) Prematurity- s/p bmz x 2 (-,6) no mgso4 d/t pulm edema, no need for kiran consult at this time 3) U/S 9-, KA, S:D 4.9-5.3, EFW 1084, 5.6%, AFT [...] over weekend. will have diab educ and sink maker see pt again soon. 9 glu sig drop. pt asympt. lunch humalog held. PLAN- cpm, dr madrigal to see pt 9- 9-20 min change in dexcon 7 readings. will incr insulin by 15%, to lantus 115/ 120, humalog B80, L92, D 102, fructosamine 9 217 8) ADHD/depression- on seroquel, zoloft 9) [...] Nifedipine (PO) protocol prn at 1132 RPT #:[id number] END OF REPORT [facility] 2022-12-05 10:39:00 [facility] ([facility]) MFM Consultation Note REPORT#:[id number] REPORT STATUS: Signed DATE:12/05/22 TIME: 1039 PATIENT: AMINTA NINO UNIT #: [id number] ROOM/BED: [address] : 92 AGE: 32 SEX: F ATTEND: Jak Herrera MD ADM AUTHOR: Shabnam Jerez MD * ALL edits or amendments must be made on the electronic/computer document * History of Present Illness HPI Chief complaint: Transferred for [facility] History Past History Allergies: Coded Allergies: latex (SWELLING 11/15/22) Objective Physical Exam VS/I O: Last Documented: Result Date Time B/P Mean 115.0 12/05 918 B/P 142/96 09/24 0919 Pulse 88 09/24 0919 Pulse Ox 98 12/05 0918 Temp 98.4 12/04 2009 Resp 18 12/04 2009 PATIENT WEIGHT: Weight (lb): 250 Weight (oz): Weight (kg): 113.600 General appearance: alert, awake, no acute distress HEENT: normocephalic Cardiovascular: regular rate and rhythm Respiratory: clear to auscultation Abdomen: non-tender, soft Extremities: edema (trace) Neuro/JIG FITTER: alert, oriented x 3, normal speech Skin: [...] 48 continue current care at 1109 RPT #:[id number] END OF REPORT [facility] 2022-12-04 15:53:00 [facility] ([facility]) OB Antepartum Prog Note REPORT#:[id number] REPORT STATUS: Signed DATE:12/04/22 TIME: 1553 PATIENT: AMINTA NINO UNIT #: [id number] ROOM/BED: [address] : 92 AGE: 32 SEX: F [...] P: 32 y/o [facility] 02-20-23 [facility] at 28 6/7 weeks transported from [place] at 26.2 for sob, orthopnea, pulm edema. [...] over weekend. will have diab educ and sink maker see pt again soon. will review on 12-02 glu sig drop. pt asympt. lunch humalog held. PLAN- cpm, dr madrigal to see pt 12-03 9-20 min change in dexcon 7 readings. will incr insulin by 15%, to lantus 115/ 120, humalog B80, L92, D 102, fructosamine 9-18 pending 8) ADHD/depression- on seroquel, zoloft 9) sleep apnea--pulm consult, per dr nasser, pt refusing cpap d/t claustrophobia. o2 sats are reassuring 10) fatigue--TSH nl, iron studies show bordeline deficiency--will start iron and colace 11) Vulvar bump, vag odor and rash on abd. all asympt. no evidence of std. 9-15 wet mount neg for trich and bv, urine gc/chlam neg at 1611 RPT #:[id number] END OF REPORT [facility] 2022-12-03 09:10:00 [facility] ([facility]) OB Antepartum Prog Note REPORT#:[id number] REPORT STATUS: Signed DATE:12/03/22 TIME: 909 PATIENT: AMINTA NINO UNIT #: [id number] ROOM/BED: [address] : 92 AGE: 32 SEX: F [...] 94.0 12/03 0909 Pulse Ox 96 12/03 0909 B/P 132/69 12/03 0909 Pulse 81 12/03 [...] Text A P: 32 y/o [facility]20-23 [facility] at 28 5/7 weeks [place] at 26.2 for sob, orthopnea, pulm edema. [...] over weekend. will have diab educ and sink maker see pt again soon. will review on [...] and d/w Dr. jerez at 1308 RPT #:[id number] END OF REPORT [facility] 2022-12-02 06:57:00 [facility] ([facility]) OB Antepartum Prog Note REPORT#:[id number] REPORT STATUS: Signed DATE:12/02/22 TIME: 656 PATIENT: AMINTA NINO UNIT #: [id number] ROOM/BED: [address] : 92 AGE: 32 SEX: F [...] Mean 103.0 12/02 0626 B/P 148/72 12/02 0626 Pulse 83 12/02 06 Pulse Ox 99 [...] P: 32 y/o [facility] 02-20-23 [facility] at 28 4/7 weeks transported from [place] at 26.2 for sob, orthopnea, pulm edema. [...] still some labile BPs, continue to follow. 9- bp 120-140/60-70, no other s/s preE 7) IDDM- hgba1c 6.6 at sending 11-13, on lantus 60 bid, humalog 50B, 60L, 70D Consulted rohan, nutrition and DM counselor. fuctoisamine 9- 198 9-21 glu sig drop. pt asympt. lunch humalog [...] and d/w Dr. josé at 1825 RPT #:[id number] END OF REPORT [facility] 2022-12-01 06:51:00 [facility] [place] ([facility]) OB Antepartum Prog Note REPORT#:[id number] REPORT STATUS: Signed DATE:12/01/22 TIME: 650 PATIENT: AMINTA NINO UNIT #: [id number] ROOM/BED: [address] : 92 AGE: 32 SEX: F [...] Ox 98 11/30 1339 Resp 16 11/29 0806 Vital Signs Date [...] P: 32 y/o EDC 02-20-23 [place] at 28 3/7 weeks transported from [place] at 26.2 for sob, orthopnea, pulm edema. [...] nutrition and DM counselor. fuctoisamine 11-18 198 - min change in dexcon 7 readings. will [...] 70, 80. no need for fingerstick glu 9-13 current: check glu fasting at 1500 [...] and d/w Dr. jerez at 1230 RPT #:[id number] END OF REPORT [facility] 2022-11-30 06:29:00 [facility] [facility] [place] ([facility]) OB Antepartum Prog Note REPORT#:[id number] REPORT STATUS: Signed DATE:11/30/22 TIME: 628 PATIENT: AMINTA NINO UNIT #: [id number] ROOM/BED: [address] : 92 AGE: 32 SEX: F [...] Text A P: 32 y/o EDC 02-20-23 [facility] at 28 2/7 weeks transported from [place] at 26.2 for sob, orthopnea, pulm edema. [...] 72D Consulted rohan nutrition and DM counselor. 9-19 min change in dexcon 7 readings. will reeval in am and adjust insulin by 15 % 11-29 reviewed dexcon7 w orzeck, glu seems to be trending down, insulin [...] and d/w Dr. jerez at 1530 RPT #:[id number] END OF REPORT [facility] 2022-11-29 07:23:00 [facility] [place] [facility] ([facility]) OB Antepartum Prog Note REPORT#:[id number] REPORT STATUS: Signed DATE:11/29/22 TIME: 722 PATIENT: AMINTA NINO UNIT #: [id number] ROOM/BED: [address] : 92 AGE: 32 SEX: F ATTEND: Jak Herrera MD ADM AUTHOR: Darron Santacruz MD * ALL edits or amendments must be made on the electronic/computer document * Subjective Subjective Patient reports: Patient reports: Yes no complaints, Yes normal movement, No abdominal pain, No vaginal bleeding, No leaking fluid, No contractions Objective VS: Last Documented: Result Date Time B/P Mean 101.0 11/29 08 Pulse Ox 98 11/29 0806 B/P 132/80 11/29 0806 Temp 98.0 11/29 0806 Pulse 87 11/29 0806 Resp 16 11/29 0806 Vital Signs Date Temp Pulse Resp B/P B/P Mean Pulse Ox FiO2 11/28-11/29 97.8-98.0 86-95 - 116-156/55-86 78.0-110.0 98-99 PATIENT WEIGHT: Weight (lb): [...] Plan Free Text A P: 32 y/o [facility] 02-20-23 [facility] at 28 1/7 weeks transported from [place] at 26.2 for sob, orthopnea, pulm edema. [...] Dr. ochoa and rohan at 1625 RPT #:[id number] END OF REPORT [facility] 2022-11-28 09:22:00 [facility] [place] ([facility]) OB Antepartum Prog Note REPORT#:[id number] REPORT STATUS: Signed DATE:11/28/22 TIME: 921 PATIENT: AMINTA NINO UNIT #: [id number] ROOM/BED: 5048-A : 92 AGE: 32 SEX: [...] 11/28 0607 Temp 97.6 11/27 1919 Resp 11/27 191 Vital Signs Date Temp Pulse [...] P: Free Text A P: 32 y/o [facility] 02-20-23 [facility] at 28 weeks transported from [place] 11-15-22 at 26.2 for sob, orthopnea, pulm [...] follow. 7) IDDM- hgba1c 6.6 at sending -2: on lantus and humalog Consulted rohan nutrition and DM counselor. 16: overnight glucose [...] neg for BV/trich/yeast; urine gc/chlam pending at 0927 RPT #:[id number] END OF REPORT [facility] 2022-11-27 09:57:00 [facility] ([facility]) OB Antepartum Prog Note REPORT#:[id number] REPORT STATUS: Signed DATE:11/27/22 TIME: 956 PATIENT: AMINTA NINO UNIT #: [id number] ROOM/BED: [address] : 92 AGE: 32 SEX: F [...] Temp 97.9 11/27 08 Pulse 82 11/27 0817 Resp 17 11/27 08 Vital Signs Date [...] 32 y/o EDC 02-20-23 [facility] at 27 6/7 weeks transported from [place] at 26.2 for sob, orthopnea, pulm edema. [...] 72D Consulted rohan nutrition and DM counselor. 9-16: overnight glucose in 250s and fasting am [...] BV/trich/yeast; urine gc/chlam pending at 1004 RPT #:[id number] END OF REPORT [facility] 2022-11-26 10:33:00 [facility] ([facility]) Pulmonology Progress Note REPORT#:[id number] REPORT STATUS: Signed DATE:11/26/22 TIME: 1033 PATIENT: AMINTA NINO UNIT #: [id number] ROOM/BED: [address] : 92 AGE: 32 SEX: F [...] Flow FiO2 Mean Ox Delivery Rate 11/26 845 101.0 11/26 0846 97.9 85 18 139/75 [...] OB and MFM Diabetes with hyperglycemia per customs investigator on case DVT risk: If she is [...] of the primary team at 1130 RPT #:[id number] END OF REPORT [facility] 2022-11-26 08:03:00 [facility] ([facility]) OB Antepartum Prog Note REPORT#:[id number] REPORT STATUS: Signed DATE:11/26/22 TIME: 08 PATIENT: AMINTA NINO UNIT #: [id number] ROOM/BED: [address] : 92 AGE: 32 SEX: F [...] Plan Free Text A P: 32 y/o [facility] 02-20-23 [facility] at 27 5/7 weeks transported from [place] at 26.2 for sob, orthopnea, pulm edema. [...] 70, 80. no need for fingerstick glu 9- current: check glu fasting at 1500 and [...] and d/w Dr. José at 1634 RPT #:[id number] END OF REPORT [facility] 2022-11-25 10:25:00 [facility] ([facility]) Pulmonology Progress Note REPORT#:[id number] REPORT STATUS: Signed DATE:11/25/22 TIME: 1025 PATIENT: AMINTA NINO UNIT #: [id number] ROOM/BED: [address] : 92 AGE: 32 SEX: F [...] OB and MFM Diabetes with hyperglycemia per customs investigator on case DVT risk: If she is [...] it. Mary with Dr. Hairston at 1029 RPT #:[id number] END OF REPORT [facility] 2022-11-25 08:04:00 [id number] [place] [address] PATIENT NAME: AMINTA NINO ADMIT DATE: 11/14/22 ACCOUNT NO: [id number] ROOM NO: OB AGE: 32 REPORT TYPE: 360 - QUERY RESPONSE DOCUMENT SEX: F ADMITTING PHYSICIAN:Gibran Garnica MD ATTENDING PHYSICIAN:Gibran Garnica MD Provider Query QUERY TEXT: Specificity Heart Failure 360MD Query related questions should be directed to: [facility] Coding Query Helpline The medical record reflects [...] 11/18/2022 7:30 AM at 0804 PATIENT NAME: AMINTA NINO [facility] 2022-11-25 06:54:00 [facility] ([facility]) OB Antepartum Prog Note REPORT#:[id number] REPORT STATUS: Signed DATE:11/25/22 TIME: 653 PATIENT: AMINTA NINO UNIT #: [id number] ROOM/BED: [address] : 92 AGE: 32 SEX: F [...] 98.0 11/25 912 Resp 18 11/24 2034 Vital Signs Date Temp Pulse Resp B/P [...] Plan Free Text A P: 32 y/o [facility] 02-20-23 [facility] at 27 4/7 weeks transported from [place] at 26.2 for sob, orthopnea, pulm edema. [...] and d/w Dr. José at 1456 RPT #:[id number] END OF REPORT [facility] 2022-11-24 14:08:00 [facility] ([facility]) Pulmonary Consultation Note REPORT#:[id number] REPORT STATUS: Signed DATE:11/24/22 TIME: 1408 PATIENT: AMINTA NINO UNIT #: [id number] ROOM/BED: [facility]-A : 92 AGE: 32 SEX: F ATTEND: [...] had an unremarkable echo was seen by M and thought had preeclampsia. Pulmonary is currently consulted for evaluation of sleep apnea. She has been diagnosed with sleep apnea for several years. She moved here approximately 2 years ago from [place] and apparently lost her CPAP in the [...] Pulse Ox 98 11/24 1344 Resp 18 11/24 2019 Temp 98.3 11/23 0902 Clinically pertinent findings: Current Medications Sig/Deonna Start time Last Medication Dose Route Stop Time Status Admin Insulin Human Lispro 65 UNITS MILDRED 11/25 1130 AC SUBQ 01/24 1129 Multivitamin 1 EACH DAILY 11/25 09 AC Hematinic Therapeutic PO 01/24 0859 Insulin Human Lispro 55 UNITS AC BK 11/25 0730 AC SUBQ 01/24 0729 Docusate Sodium 200 MG BEDTIME 11/24 2100 AC PO 01/23 205 Insulin Human Lispro 75 UNITS AC DIN 11/24 1630 AC SUBQ 01/23 1629 Insulin Human Lispro 70 UNITS AC DIN 11/23 1630 DC 11/23 SUBQ 01/22 1629 1718 Acetaminophen 650 MG Q4H PRN PRN 11/18 2245 AC 11/18 PO 02/11 0600 2250 Insulin Human Lispro 60 UNITS [facility] 11/18 1130 DC 11/23 SUBQ 01/17 1129 1247 Multivit/ 1 TAB DAILY 11/18 09 AC 11/24 Folic Acid/Iron PO 01/17 0859 0804 Patient Own 2 EACH ASDIR 11/18 0815 AC 11/24 Medication PO 01/17 0814 0814 Docusate Sodium 100 MG BID 11/18 08 DC 11/24 PO 01/17 0759 0805 Insulin Human Lispro 50 UNITS [facility] 11/18 0730 DC 11/24 SUBQ 01/17 0729 0858 Insulin Glargine 70 UNIT BID 11/18 1999 AC 11/24 SUBQ 01/16 195 0806 Hydroxyzine HCl 50 MG BEDTIME PRN 11/16 2100 AC 11/23 PO 01/15 205 2037 Nifedipine 30 MG BID 11/17 1999 AC 11/24 PO 01/15 195 0805 Enoxaparin Sodium 40 MG DAILY 11/16 171 AC 11/24 SUBQ 12/16 1714 0807 Labetalol HCl 100 MG Q8H 11/16 0945 AC 11/24 PO 01/15 0944 1004 Sertraline HCl 100 MG DAILY 11/16 09 AC 11/24 PO 01/15 0859 0804 Dextrose 37.5 ML Q15M PRN PRN 11/15 2330 AC BUCCAL 01/14 2329 Dextrose/Water 50 ML ASDIR PRN 11/15 2330 CKD IV 01/14 2329 Glucagon 1 MG ASDIR PRN 11/15 2330 AC IM 11/03 2329 Quetiapine Fumarate 100 MG BEDTIME 11/15 2315 AC 11/23 PO 01/14 Calcium Gluconate 1,000 MG BOLUS ASDIR PRN [...] % (Auto) (14.5 - 29.7 %) 22.8 Hays % (Auto) (3.6 - 10.2 %) 5.2 Eos % (Auto) (0.0 - 3.0 %) 0.4 Baso % (Auto) (0.1 - 0.9 %) 0.3 Neut # (Auto) (K/mm3) 10.2 Lymph # (Auto) (K/mm3) 3.3 Hays # (Auto) (K/mm3) 0.8 Eos # (Auto) (K/mm3) 0.06 Baso # (Auto) (K/mm3) 0.0 Laboratory Tests 11/23 1326 Serology Rubella Screen (IUnit/ml) 8.2 Laboratory Tests 11/22 11/22 1438 1438 Urines Urine Color (YELLOW) YELLOW Urine Appearance (CLEAR) CLEAR Urine pH (5 - 9) 6.0 Ur Specific [place] (1.001 - 1.035) 1.023 Urine Protein (NEG) [...] OB and MFM Diabetes with hyperglycemia per customs investigator on case DVT risk: If she is [...] Case discussed with hospitalist at 1421 RPT #:[id number] END OF REPORT [facility] 2022-11-24 11:20:00 [facility] ([facility]) OB Antepartum Prog Note REPORT#:[id number] REPORT STATUS: Signed DATE:11/24/22 TIME: 1120 PATIENT: AMINTA NINO UNIT #: [id number] ROOM/BED: [facility] : 92 AGE: 32 SEX: F ATTEND: [...] pt has sleep apnea, had testing in [place] at [facility], but lost sleep mask between move here. [...] Pulse Ox 98 11/24 2019 Resp 18 11/23 2020 Temp 98.3 11/23 0902 Vital Signs Date Temp Pulse Resp B/P [...] 2. Free Text A P: 32 y/o [facility] 02-20-23 [facility] at 27 2/7 weeks transported from [place] at 26.2 for sob, orthopnea, pulm edema. PNC w dr cristina clay 1) Pulm edema- echo at sending wnl, pt feels better since adm, had cxr on adm w min pulm edema. PLAN- cpm [BNP <30, recheck also low 3.8] 2) Prematurity- s/p bmz x 2 (-5,6) no mgso4 d/t pulm edema, no need [...] in [place], much improved at 1139 RPT #:[id number] END OF REPORT [facility] 2022-11-23 11:52:00 [facility] ([facility]) OB Antepartum Prog Note REPORT#:[id number] REPORT STATUS: Signed DATE:11/23/22 TIME: 1152 PATIENT: AMINTA NINO UNIT #: [id number] ROOM/BED: [address] : 92 AGE: 32 SEX: F [...] says she feels very fatigued, and the customs investigator told her it's because she's "extremely anemic." [...] B/P 127/75 11/23 0902 Pulse 90 11/23 0902 Pulse Ox 96 11/23 0858 Temp 98.3 [...] % (Auto) (14.5 - 29.7 %) 22.8 [place] % (Auto) (3.6 - 10.2 %) 5.2 Eos % (Auto) (0.0 - 3.0 %) 0.4 Baso % (Auto) (0.1 - 0.9 %) 0.3 Neut # (Auto) (K/mm3) 10.2 Lymph # (Auto) (K/mm3) 3.3 [place] # (Auto) (K/mm3) 0.8 Eos # (Auto) (K/mm3) 0.06 Baso # (Auto) (K/mm3) 0.0 Urines Urine Color (YELLOW) YELLOW Urine Appearance (CLEAR) CLEAR Urine pH (5 - 9) 6.0 Ur Specific [place] (1.001 - 1.035) 1.023 Urine Protein (NEG) [...] 2. Free Text A P: 32 y/o [facility] 02-20-23 [facility] at 27 1/7 weeks transported from [place] at 26.2 for sob, orthopnea, pulm edema. PNC w dr cristina clay 1) Pulm edema- echo at sending wnl, pt feels better since adm, had cxr on adm w min pulm edema. PLAN- cpm [BNP <30, will recheck here] 2) Prematurity- s/p bmz x 2 due (-,6) no mgso4 d/t pulm edema, no [...] dinner increase to 70D at 1203 RPT #:[id number] END OF REPORT [facility] 2022-11-22 12:51:00 [facility] ([facility]) OB Antepartum Prog Note REPORT#:[id number] REPORT STATUS: Signed DATE:11/22/22 TIME: 1251 PATIENT: AMINTA NINO UNIT #: [id number] ROOM/BED: [address] : 92 AGE: 32 SEX: F [...] Plan Free Text A P: 32 y/o [facility] 02-20-23 [facility] at 27 0/7 weeks transported from [place] at 26.2 for sob, orthopnea, pulm edema. [...] % (Auto) (14.5 - 29.7 %) 22.8 [place] % (Auto) (3.6 - 10.2 %) 5.2 Eos % (Auto) (0.0 - 3.0 %) 0.4 Baso % (Auto) (0.1 - 0.9 %) 0.3 Neut # (Auto) (K/mm3) 10.2 Lymph # (Auto) (K/mm3) 3.3 [place] # (Auto) (K/mm3) 0.8 Eos # (Auto) (K/mm3) 0.06 Baso # (Auto) (K/mm3) 0.0 Urines Urine Color (YELLOW) YELLOW Urine Appearance (CLEAR) CLEAR Urine pH (5 - 9) 6.0 Ur Specific [place] (1.001 - 1.035) 1.023 Urine Protein (NEG) [...] so to contact for consult. at 1628 RPT #:[id number] END OF REPORT [facility] 2022-11-21 10:41:00 [id number] [place] [address] PATIENT NAME: AMINTA NINO ADMIT DATE: 11/15/22 ACCOUNT NO: [id number] ROOM NO: [facility] AGE: 32 SEX: F ADMITTING PHYSICIAN: Jak Herrera MD ATTENDING PHYSICIAN: Jak Herrera MD DATE: 11/21/2022 ANTEPARTUM PROGRESS REPORT ATTENDING PHYSICIAN: [facility]. TIME OF EVALUATION: At approximately 10:20 [...] 162. ABDOMEN: Soft, nontender. Strip shows moderate tldg-jv-cava variability, positive accels. No regular contractions. PLAN: We will continue current care. Dictated By: Jose Roberto Webber MD Date Dictated: 11/21/2022 10:41:04 Date Transcribed: 11/21/2022 10:55:37 [facility]//JAMAL Receipt ID: [id number] Authenticated by Jose Roberto Webber MD On 11/21/2022 09:32:14 PM at 0932 PATIENT NAME: AMINTA NINO [facility]KEN[facility] 2022-11-20 11:18:00 [id number] [place] [address] PATIENT NAME: AMINTA NINO ADMIT DATE: 11/15/22 ACCOUNT NO: [id number] ROOM NO: [facility] AGE: 32 SEX: F ADMITTING PHYSICIAN: Jak Herrera MD ATTENDING PHYSICIAN: Jak Herrera MD DATE: 11/20/2022 ANTEPARTUM REPORT ATTENDING PHYSICIAN: [facility] TIME OF EVALUATION: At [...] Dictated: 11/20/2022 11:18:43 Date Transcribed: 11/20/2022 11:44:50 [employer]/[facility]HAY/JAMAL Receipt ID: [id number] Authenticated by Jose Roberto Webber MD On 11/21/2022 09:32:14 PM at 0932 PATIENT NAME: AMINTA NINO [facility] 2022-11-19 15:24:00 [facility] ([facility]) OB Antepartum Prog Note REPORT#:[id number] REPORT STATUS: Signed DATE:11/19/22 TIME: 152 PATIENT: AMINTA NINO UNIT #: [id number] ROOM/BED: [facility]-A : 92 AGE: 32 SEX: F ATTEND: [...] text A P: 32 y/o [facility] 02-20-23 [facility] at 26 5/7 weeks transported from [place] at 26.2 for sob, orthopnea, pulm edema. [...] and d/w dr josé at 1529 RPT #:[id number] END OF REPORT [facility] 2022-11-18 06:43:00 [facility] ([facility]) OB Antepartum Prog Note REPORT#:[id number] REPORT STATUS: Signed DATE:11/18/22 TIME: 642 PATIENT: AMINTA NINO UNIT #: [id number] ROOM/BED: [address] : 92 AGE: 32 SEX: F [...] Ox 100 11/18 0804 Temp 98.1 11/17 2001 Resp 18 11/16 1235 Vital Signs Date [...] 11/18 11/18 11/17 11/17 11/17 1105 0634 2228 2029 2029 Chemistry Creatinine (0.5 - 1.0 mg/dL) 0.6 [...] Text A P: 32 [facility] from [place] at 26.2 for sob, orthopnea, pulm edema. [...] by sat 9- 9. PLAN- cpm, SSI 9-7 we met w pt and dr madrigal. [...] and d/w dr josé at 1456 RPT #:[id number] END OF REPORT [facility] 2022-11-17 06:46:00 [facility] ([facility]) OB Antepartum Prog Note REPORT#:[id number] REPORT STATUS: Signed DATE:11/17/22 TIME: 645 PATIENT: AMINTA NINO UNIT #: [id number] ROOM/BED: [address] : 92 AGE: 32 SEX: F [...] 1202 Resp 18 11/16 1235 Temp 98.6 / 1600 Vital Signs Date Temp Pulse Resp [...] Plan Free Text A P: 32 y/o [facility] 02-20-23 [facility] at 26 3/7 weeks transported from [place] at 26.2 for sob, orthopnea, pulm edema. PNC w dr cristina clay 1) Pulm edema- echo at sending wnl, pt feels better since adm, had cxr on adm w min pulm edema. PLAN- cpm 2) Prematurity- bmz # 2 due 11-17, no mgso4 d/t pulm edema, no need for kiran consult at this pt 3) U/S 11-15 gei OB US;Caotes Cephalic CGA c/w dates UA-PI: 0.95 DVP: [...] and d/w dr josé at 1839 RPT #:[id number] END OF REPORT [facility] 2022-11-16 09:12:00 [facility] ([facility]) OB Antepartum Prog Note REPORT#:[id number] REPORT STATUS: Signed DATE:11/16/22 TIME: 911 PATIENT: AMINTA NINO UNIT #: [id number] ROOM/BED: [address] : 92 AGE: 32 SEX: F [...] 11/16 11/16 11/16 11/16 1544 1221 1034 0951 0303 Chemistry Sodium (135 - 145 mEq/L) 132 [...] (Auto) (14.5 - 29.7 %) 12.8 L [place] % (Auto) (3.6 - 10.2 %) 3.1 L Eos % (Auto) (0.0 - 3.0 %) 0.3 Baso % (Auto) (0.1 - 0.9 %) 0.2 Neut # (Auto) (K/mm3) 11.8 Lymph # (Auto) (K/mm3) 1.8 [place] # (Auto) (K/mm3) 0.4 Eos # (Auto) (K/mm3) 0.04 Baso # (Auto) (K/mm3) 0.0 Urines Ur Random Creatinine (mg/dL) 57.7 U Random Total Protein (mg/dL) 36.1 Protein/Creatinin Ratio (<200 625.6 H mg/gcrea) 11/15 2243 Chemistry POC Glucose (65 - 110 mg/dL) 258 H Diagnosis, Assessment Plan Diagnosis, Assessment Plan Free Text A P: 32 y/o [facility] 02-20-23 [facility] at 26 2/7 weeks transported from [place] at 26.2 for sob, orthopnea, pulm edema. [...] and d/w dr josé at 1816 RPT #:[id number] END OF REPORT [facility] 2022-11-15 23:19:00 [facility] ([facility]) MF Consultation Note REPORT#:[id number] REPORT STATUS: Signed DATE:11/15/22 TIME: 2318 PATIENT: AMINTA NINO UNIT #: [id number] ROOM/BED: [address] : 92 AGE: 32 SEX: F ATTEND: Jak Herrera MD ADM AUTHOR: Jak Herrera MD * ALL edits or amendments must be made on the electronic/computer document * History of Present Illness HPI Chief complaint: Transferred for [facility] HPI: H/O diabetes H/O obesity H/O recent episode of pneumonia History Past History Allergies: Coded Allergies: latex (SWELLING 11/15/22) Objective Physical Exam VS/I O: Last Documented: Result Date Time B/P Mean 88.0 11/16 2247 B/P 139/61 11/16 2247 Pulse 93 11/15 2248 Pulse Ox 98 11/15 1805 Resp 17 [...] (Auto) (14.5 - 29.7 %) 13.1 L [place] % (Auto) (3.6 - 10.2 %) 2.5 L Eos % (Auto) (0.0 - 3.0 %) 0.2 Baso % (Auto) (0.1 - 0.9 %) 0.3 Neut # (Auto) (K/mm3) 10.0 Lymph # (Auto) (K/mm3) 1.6 [place] # (Auto) (K/mm3) 0.3 Eos # (Auto) (K/mm3) 0.02 Baso # (Auto) (K/mm3) 0.0 Laboratory Tests 11/15 1641 Serology Treponema pallidum Ab (NONREACTIVE) NONREACTIVE Hep Bs Antigen (NONREACTIVE) NONREACTIVE Hepatitis C Antibody (NONREACTIVE) NONREACTIVE Hep C Ab Signal/Cutoff (<0.80) 0.04 HIV 1 2 Antibody (NONREACTIVE) NONREACTIVE Laboratory Tests 11/15 1641 Urines Ur Random Creatinine (mg/dL) 37.6 U Random Total Protein (mg/dL) 13.9 Protein/Creatinin Ratio (<200 mg/gcrea) 369.6 H Radiology data: Recent Impressions: RADIOLOGY - XR CHEST 1 V 11/15 1715 Report Impression - Status: SIGNED Entered: 11/15/2022 1745 IMPRESSION: Shallow inspiration with pulmonary vascular congestion. [...] for CPAP at night at 2337 RPT #:[id number] END OF REPORT [facility] 2022-11-15 16:48:00 [facility] ([facility]) Clinical Note REPORT#:[id number] REPORT STATUS: Signed DATE:11/15/22 TIME: 1647 PATIENT: AMINTA NINO UNIT #: [id number] ROOM/BED: [address] : 92 AGE: 32 SEX: F ATTEND: Jak Herrera MD ADM AUTHOR: Martín Terry MD * ALL edits or amendments must be made on the electronic/computer document * Clinical Note Note: Hospitalist Note (H P dictated:[id number]): 32 y/o Ab1 Lc0, accepted in transfer for [facility] (Dr. Herrera) from [place]. She had been admitted there 2 days [...] at bedtime for sleep. Her MD in [place] wished her transferred for management of her [...] order plans and Insulin dosaging. at 1701 [facility] #:[id number] END OF REPORT [facility] 2022-11-15 16:47:00 [id number] [facility] [place] [address] PATIENT NAME: AMINTA NINO ADMIT DATE: 11/15/22 ACCOUNT NO: [id number] ROOM NO: F.5048 AGE: 32 SEX: F [...] worsened. Upon presentation to the hospital in [place], she was admitted and cardiology consulted to [...] is currently receiving Lovenox prophylaxis. Dictated By: Martín Terry MD Date Dictated: 11/15/2022 16:47:24 Date Transcribed: 11/15/2022 17:18:33 /RAG Receipt ID: [id number] Authenticated by Martín Terry MD On 11/26/2022 09:56:31 PM at 0956 PATIENT NAME: AMINTA NINO [facility] 2022-11-15 12:30:00 [facility] ([facility] Consultation Note REPORT#:[id number] REPORT STATUS: Signed DATE:11/15/22 TIME: 1230 PATIENT: AMINTA NINO UNIT #: [id number] ROOM/BED: [facility] : 92 AGE: 32 SEX: F ATTEND: [...] globulin this preg: Monitor mode - UA: Elvis units: Feeding preference: Delivery data Delivery date infant A: Delivery time infant A: Birthweight (gm) A: Weight (lb) A: Weight (oz) A: Gender infant A: 1 minute A: 5 minutes A: 10 minutes A: Cord pH obtained infant A: Vacuum time infant A: Vacuum # pulls infant A: Vacuum # popoffs infant A: Provider comments on imported nursing data: [...] 11/15 914 CKD 11/15 Water IV 12/15 0916 1048 (MAGNESIUM SULFATE 20 G/500 ML BAG) Magnesium Sulfate/ 100 ML ONCE ONE 11/15 914 DC 11/15 Water IV 11/15 0934 1048 (Magnesium Sulf 4 G/ 100 Ml Bag) Sertraline HCl 100 MG DAILY 11/14 09 AC 11/15 (ZOLOFT) PO 12/14 0901 1014 Quetiapine Fumarate 100 MG BEDTIME 11/13 2100 AC 11/14 (SEROqueL) PO 12/13 210 205 Electrolytic, Caloric, And Ranulfo Sig/Deonna Start time Last Medication Dose Route Stop Time Status Admin Calcium Gluconate 1,000 MG ONCE ONE 09/04 0915 DC (Calcium Gluconate IV 11/16 915 10% 1,000 mg/10 mL Inj (B2)) Dextrose/Water 25 ML ASDIR PRN 11/13 1929 CKD (DEXTROSE 50%-WATER) IV 12/13 1930 Glucose Polymer 15 GM ASDIR PRN 11/13 193 AC (GLUTOSE) PO 12/13 1930 Hormones And Synthetic Substit Sig/Deonna Start time Last Medication Dose Route Stop Time Status Admin Insulin Human Lispro 40 UNIT TID AC 11/15 1130 AC (HUMALOG) SUBQ 12/15 113 Insulin Glargine 70 UNITS BID 11/15 09 AC 11/15 (LANTUS) SUBQ 12/15 0901 1017 Insulin Glargine 80 UNITS BID 11/14 2099 DC 11/14 (LANTUS) SUBQ 12/14 2101 2055 Insulin Human Lispro 50 UNIT TID AC 11/14 0730 DC 11/14 (HUMALOG) SUBQ 12/14 0731 1739 Insulin Human Lispro See Dose ASDIR PRN 11/13 2199 AC 11/13 (HUMALOG) Insts (1) SUBQ 12/13 2201 2211 Glucagon 1 MG ASDIR PRN 11/13 1929 AC (GLUCAGON) IM 12/13 1930 Skin And [...] no guarding, gravid Extremities: trace BLE edema Neuro/JIG FITTER: alert, oriented x 3 Results Findings/Data: Laboratory [...] % (Auto) (14.1 - 45.4 %) 26.8 [place] % (Auto) (2.5 - 11.7 %) 7.2 Eos % (Auto) (0.0 - 6.2 %) 0.7 Baso % (Auto) (0.0 - 2.1 %) 0.3 Gran # (2.0 - 13.7 k/mm3) 7.05 Lymph # (Auto) (0.6 - 3.8 K/mm3) 2.96 [place] # (Auto) (0.11 - 0.59 K/mm3) 0.79 [...] DEHYDROGENASE(LDH) 11/15 1211 Complete at 1258 RPT #:[id number] END OF REPORT [facility] 2022-11-15 10:45:00 [facility] ([facility] CASHIER CREDIT Consult Note - Brief REPORT#:[id number] REPORT STATUS: Signed DATE:11/15/22 TIME: 1045 PATIENT: AMINTA NINO UNIT #: [id number] ROOM/BED: [facility] : 89 AGE: 32 SEX: F ATTEND: Gibran Garnica MD ADM AUTHOR: Ronnell Davalos MD * [...] mg bid and then procardia was added. MFM was consulted today who is concerned that pt had PIH with severe feature and advised to transfer pt for higher level of care. History Past Medical History Additional medical history: bipolar, ADHD, OCD DM-taking metformin, insulin, HTN, Obesity Past Surgical History Additional surgical history: Denies Past CASHIER CREDIT History Past OB history: : 2 Term: 0 : 0 Abortus: 1 Living children: 0 Social History Alcohol use: Denies EtOH use Drug use: Denies recreational drugs Smoking status for patients 13 years old or older: Former Smoker Date last smoked: 08/13/19 Medication/Allergy-Vaccine Hx Allergies: Coded Allergies: latex (UNKNOWN 04/10/22) OB-Inbound Call Center Agent Brief Consult Note Free Text A P: [...] (trace edema, normal DTR) at 1055 RPT #:[id number] END OF REPORT [facility] 2022-11-15 10:17:00 [id number] [place] [address] PATIENT NAME: AMINTA NINO ADMIT DATE: 11/14/22 ACCOUNT NO: [id number] ROOM NO: [facility] AGE: 32 REPORT TYPE: eECHOCARDIOGRAM REPORT SEX: F ADMITTING PHYSICIAN:Gibran Garnica MD ATTENDING PHYSICIAN:Gibran Garnica MD Name: AMINTA NINOtudy Date: 11/15/2022 10:17 AMPatient Location: [facility] [address] URN: [id number] BP: 132/75 mmHg Height: 60 in Gender: [...] Shaver at 1149 PATIENT NAME: AMINTA NINO [facility] 2022-11-15 06:32:00 [facility] Progress Note REPORT#:[id number] REPORT STATUS: Signed DATE:11/15/22 TIME: 631 PATIENT: AMINTA NINO UNIT #: [id number] ROOM/BED: [facility] : 92 AGE: 32 SEX: F ATTEND: [...] % (Auto) (14.1 - 45.4 %) 26.8 [place]ays % (Auto) (2.5 - 11.7 %) 7.2 Eos % (Auto) (0.0 - 6.2 %) 0.7 Baso % (Auto) (0.0 - 2.1 %) 0.3 Gran # (2.0 - 13.7 k/mm3) 7.05 Lymph # (Auto) (0.6 - 3.8 K/mm3) 2.96 [place]ays # (Auto) (0.11 - 0.59 K/mm3) 0.79 [...] 20 mg, Rocephin 1gm - Consult cardiology (Ketron), appreciate recs - echo ordered, pending Hypertension Concern for Pre-eclampsia - BP up to 161/88 - protein/cr ratio 438 - AST/ALT 12/25 -24 hr urine protein 619 (was previously [...] awaiting that to be done, contacted the vehicle modification technician and stressed need to have done immediately holding steroids for fetus given the severe BG issues and insulin resistance IV mag ordered to be started per MF recs at 0837 at 1048 RPT #[id number] END OF REPORT [facility] 2022-11-14 11:09:00 [facility] ([facility]) Cardiology Consultation REPORT#:[id number] REPORT STATUS: Signed DATE:11/14/22 TIME: 1109 PATIENT: AMINTA NINO UNIT #: [id number] ROOM/BED: [facility] : 92 AGE: 32 SEX: F ATTEND: [...] time, her PCP referred her to a power transmission engineer (unknown name/ location) that she was to [...] 2+ peripheral pulses Musculoskeletal: normal inspection, PATTON Neuro/JIG FITTER: alert, oriented X 3, normal speech Skin: [...] Laboratory Tests 11/14 11/14 11/13 11/13 0717 513 2004 1718 Chemistry Sodium (133 - 144 mmol/L) 134.0 [...] % (Auto) (14.1 - 45.4 %) 31.0 Hays % (Auto) (2.5 - 11.7 %) 6.8 Eos % (Auto) (0.0 - 6.2 %) 1.0 Baso % (Auto) (0.0 - 2.1 %) 0.2 Gran # (2.0 - 13.7 k/mm3) 6.17 Lymph # (Auto) (0.6 - 3.8 K/mm3) 3.19 [place] # (Auto) (0.11 - 0.59 K/mm3) 0.70 [...] - 8.0 pH UNITS) 6.5 Ur Specific [place] (1.001 - 1.035 SG) 1.030 Urine Protein [...] Screen (Cult byWBC Criteria) Crit NOTmet CULT-N/A Ur Random Creatinine (30 - 150 MG/DL) 89.4 U Random Total Protein (0.0 - 12.0 MG/DL) 39.2 H Protein/Creatinin Ratio (0.0 - 200.0 MG/GRAM) 438.0 H Urine Comment (SpecComment NoteSPEC) SPECIMEN COMMENT Microbiology Date/Time Procedure - Status Source Growth 11/13 1432 Influenza Virus Type B Antigen - COMP NASAL 11/13 1432 Influenza Virus Type A Antigen - COMP NASAL Laboratory Tests 09/02 1433 Chemistry B-Natriuretic Peptide (0.00 - 100.00 PG/ML) < 30.00 Radiology Data: Recent Impressions: RADIOLOGY - XR CHEST 1 V 11/13 1406 Report Impression - Status: SIGNED Entered: 11/13/2022 1420 IMPRESSION: Diffuse interstitial opacities in both lungs due to pulmonary edema versus pneumonia. Impression By: Zena Lockhart MD ULTRASOUND - US FET BIO PH OK W/O NST 11/13 1510 Report Impression - Status: SIGNED Entered: 11/13/2022 1621 IMPRESSION: 1. Viable fetus with heart rate of 150 bpm. 2. Biophysical profile score is 8 out of 8. 3. MATHEUS lower normal at 7.45 Impression By: Aguilar Forman MD Results: labs reviewed, vital signs [...] any questions or concerns. at 1436 RPT #:[id number] END OF REPORT [facility] 2022-11-14 04:14:00 [facility] ([facility] Family Medicine Progress Note REPORT#:[id number] REPORT STATUS: Signed DATE:11/14/22 TIME: 413 PATIENT: AMNITA NINO UNIT #: [id number] [facility] AGE: 32 SEX: F ATTEND: [...] a girl, "Duran", that is moving normally. Review of Systems [...] 28 mmol/L) 19.7 L Laboratory Tests 11/14 11/13 11/13 11/13 0514 2004 1719 1433 Chemistry Sodium (133 - 144 mmol/L) [...] 1 NORMAL <10 MG Laboratory Tests 11/13 143 Coagulation D-Dimer (0 - 500 FEUng/mL) 295 [...] % (Auto) (14.1 - 45.4 %) 31.0 Hays % (Auto) (2.5 - 11.7 %) 6.8 Eos % (Auto) (0.0 - 6.2 %) 1.0 Baso % (Auto) (0.0 - 2.1 %) 0.2 Gran # (2.0 - 13.7 k/mm3) 6.17 Lymph # (Auto) (0.6 - 3.8 K/mm3) 3.19 [place] # (Auto) (0.11 - 0.59 K/mm3) 0.70 [...] (0.0 - 200.0 MG/GRAM) 438.0 H 11/13 1432 Urines Urine Color (YELLOW DESCRIPT) LIGHT-YELLOW Urine Appearance (CLEAR DESCRIPT) CLEAR Urine pH (4.6 - 8.0 pH UNITS) 6.5 Ur Specific [place] (1.001 - 1.035 SG) 1.030 Urine Protein [...] MD ULTRASOUND - US FET BIO PH OK W/O NST 11/13 1510 Report Impression - [...] for pt, she recommended waiting on a [facility] consult for pt at 0931 at 0935 RPT #:[id number] END OF REPORT [facility] 2022-11-13 18:06:00 [facility] ([facility]) History Physical - Adult REPORT#:[id number] REPORT STATUS: Signed DATE:11/13/22 TIME: 1805 PATIENT: AMINTA NINO UNIT #: [id number] ROOM/BED: [address] : 92 AGE: 32 SEX: F ATTEND: Gibran Garnica MD ADM AUTHOR: Cyn Delarosa DO R1 * ALL edits or amendments must be made on the electronic/computer document * Cyn Delarosa 11/13/22 1806: History of Present Illness HPI Chief complaint: [...] not relieved symptoms. Patient reports seeing outpatient power transmission engineer who recommended further studies to evaluate her [...] calf tenderness Musculoskeletal: full range of motion Neuro/JIG FITTER: alert, oriented X 3, normal speech, no [...] - 8.0 pH UNITS) 6.5 Ur Specific [place] (1.001 - 1.035 SG) 1.030 Urine Protein [...] Orozco and case discussed with Sobia Selby 11/13/222008: Diagnosis, Assessment Plan Free Text DxA P [...] control BG a1c encouraging at <7% at 1999 at 2016 at 0931 RPT #:[id number] END OF REPORT [facility] 2022-11-13 17:01:00 [facility] ([facility] Hospitalist Consultation REPORT#:[id number] REPORT STATUS: Signed REPORT INITIALIZATION DATE:11/13/22 TIME: 1700 PATIENT: AMINTA NINO UNIT #: [id number] ROOM/BED: [facility] : 92 AGE: 32 SEX: F ATTEND: Gibran Garnica MD ADM AUTHOR: Karel Jeter MD REPT SERVICE DT/TIME: 11/13/22 1701 * ALL edits or amendments must be [...] internal medicine was consulted for medical management CASHIER CREDIT is the primary for this the primary [...] - 8.0 pH UNITS) 6.5 Ur Specific [place] (1.001 - 1.035 SG) 1.030 Urine Protein [...] MD ULTRASOUND - US FET BIO PH OK W/O NST 11/13 1510 Report Impression - [...] per family medicine service at 0652 RPT #:[id number] END OF REPORT [facility] 2022-11-13 14:27:00 [facility] ([facility]) EMERGENCY PROVIDER REPORT REPORT#:[id number] REPORT STATUS: Signed DATE:11/13/22 TIME: 1426 PATIENT: AMINTA NINO UNIT #: [id number] ROOM/BED: [address] AGE: 32 SEX: F PCP PHYS: [...] - 8.0 pH UNITS) 6.5 Ur Specific [place] (1.001 - 1.035 SG) 1.030 Urine Protein [...] Date/Time Procedure - Status Source Growth 11/13 1433 Influenza Virus Type B Antigen - COMP NASAL 11/13 1433 Influenza Virus Type A Antigen - COMP NASAL Recent Impressions: RADIOLOGY - XR CHEST 1 V 11/13 1406 Report Impression - Status: SIGNED Entered: 11/13/2022 1420 IMPRESSION: Diffuse interstitial opacities in both lungs due to pulmonary edema versus pneumonia. Impression By: Zena Lockhart MD ULTRASOUND - US FET BIO PH OK W/O NST 11/13 1510 Report Impression - [...] B/P 136/79 11/13 1338 B/P Mean 98 / 1338 Temp 98.1 11/13 1338 Pulse 103 / 1338 Resp 18 11/13 1338 O2 Delivery Room air 11/13 1445 Last Documented: Result Date Time Pulse Ox 97 11/13 1600 B/P 113/55 11/13 1600 B/P Mean 73 11/13 1600 Temp 98.3 / 1600 Pulse 97 09/02 1600 Resp 18 11/13 1600 O2 Delivery [...] eval, agrees with plan at 0835 RPT #:[id number] END OF REPORT 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 I did not send a new prescription. DISCHARGE DIAGNOSES: Uncontrolled diabetes, . She does go see a high risk OB. Dictated By: Kay Merchant MD Date Dictated: 08/21/2022 13:28:21 Date Transcribed: 08/21/2022 22:04:27 DADA/JEREMIAH Receipt ID: [id number] Authenticated by Kay Merchant MD On 08/22/2022 02:15:19 PM at 0215 PATIENT NAME: AMINTA NINO [facility] 2022-08-20 16:13:00 [id number] [place] [address] PATIENT NAME: AMINTA NINO ADMIT DATE: 08/19/22 ACCOUNT NO: [id number] ROOM NO: B.123 AGE: 32 REPORT TYPE: [...] here as she is and obviously her CASHIER CREDIT has instructed her to have blood sugars less than 200. Dictated By: Gavino Craven MD Date Dictated: 08/20/2022 16:13:07 Date Transcribed: 08/20/2022 23:54:13 /JL/ALEX Receipt ID: [id number] Authenticated by Gavino Craven MD On 08/31/2022 04:25:36 PM PATIENT NAME: AMINTA NINO at 0425 PATIENT NAME: AMINTA NINO [facility] 2022-08-20 16:12:00 [facility] PROGRESS NOTE REPORT#:[id number] REPORT STATUS: Signed DATE:08/20/22 TIME: 161 PATIENT: AMINTA NINO UNIT #: [id number] ROOM/BED: [address] : 92 AGE: 32 SEX: F ATTEND: Gavino Mercado MD ADM AUTHOR: Gavino Craven MD * ALL edits or amendments must be made on the electronic/computer document * Progress Note Progress Note [id number] at 1613 RPT #:[id number] END OF REPORT [facility] 2022-08-19 23:34:00 [facility] Hospitalist History Physical REPORT#:[id number] REPORT STATUS: Signed DATE:08/19/22 TIME: 2334 PATIENT: AMINTA NINO UNIT #: [id number] ROOM/BED: [address] : 92 AGE: 32 SEX: F [...] she contacted Dr. Srinivasan who is her CASHIER CREDIT who advised her to come to the [...] Smoker Medication/Allergy-Vaccine Hx Medications: Laboratory Tests: 08/19 08/19 2039 1823 Chemistry Sodium (133 - 144 mmol/L) [...] % (Auto) (14.1 - 45.4 %) 23.5 [place] % (Auto) (2.5 - 11.7 %) 6.7 Eos % (Auto) (0.0 - 6.2 %) 0.5 Baso % (Auto) (0.0 - 2.1 %) 0.2 Gran # (2.0 - 13.7 k/mm3) 8.85 Lymph # (Auto) (0.6 - 3.8 K/mm3) 3.04 [place] # (Auto) (0.11 - 0.59 K/mm3) 0.86 [...] - 8.0 pH UNITS) 7.5 Ur Specific [place] (1.001 - 1.035 SG) 1.030 Urine Protein [...] Resp B/P B/P Mean Pulse Ox FiO2 /08 36.8 101 16 160/86 110 97 Last Documented: Result Date Time Pulse Ox 97 /8 B/P 160/86 / 1818 B/P Mean 110 /08 1818 O2 Delivery Room air 08/19 1817 Temp 36.8 / 181 Pulse 101 / 1818 Resp 16 08/19 1818 Patient Weight and BMI Weight (kg): 106.818 BMI: 49.2 General appearance: awake Cardiovascular: regular rate rhythm Respiratory: decreased breath sounds Abdomen: non-tender Neuro/JIG FITTER: alert Diagnosis, Assessment Plan Free Text A P: Diabetes mellitus with hyperglycemia Out of insulin Continue her home insulin regimen Cover with insulin sliding scale 13-week Follow-up with Dr. Clay Hypertension Optimize blood pressure control DVT prophylaxis SCD advanced directive discussed Medication reviewed and reconciled I will sign off at 6 AM today further management by incoming MD thereafter at 2337 RPT #:[id number] END OF REPORT [facility] 2022-08-19 19:40:00 [facility] ([facility]) EMERGENCY PROVIDER REPORT REPORT#:[id number] REPORT STATUS: Signed DATE:08/19/22 TIME: 1939 PATIENT: AMINTA NINO UNIT #: [id number] ROOM/BED: [address] AGE: 32 SEX: F PCP PHYS: [...] B/P 160/86 / 1818 B/P Mean 110 08/19 1818 O2 Delivery Room air 08/19 1817 Temp 98.2 08/19 181 Pulse 101 08/19 1818 Resp 16 08/19 1818 Last Documented: Result Date Time Pulse Ox 97 08/19 1818 B/P 160/86 08/19 1818 B/P Mean 110 / 1818 O2 Delivery Room air 08/19 1818 Temp 98.2 08/19 1818 Pulse 101 08/19 1818 Resp 16 08/19 1818 Review of Vital Signs Unavailable, Vital signs [...] % (Auto) (14.1 - 45.4 %) 23.5 Hays % (Auto) (2.5 - 11.7 %) 6.7 Eos % (Auto) (0.0 - 6.2 %) 0.5 Baso % (Auto) (0.0 - 2.1 %) 0.2 Gran # (2.0 - 13.7 k/mm3) 8.85 Lymph # (Auto) (0.6 - 3.8 K/mm3) 3.04 [place] # (Auto) (0.11 - 0.59 K/mm3) 0.86 [...] - 8.0 pH UNITS) 7.5 Ur Specific [place] (1.001 - 1.035 SG) 1.030 Urine Protein [...] Sodium Chloride 1,000 ML X1ED STA 08/19 182 DC / IV 08/19 182 1842 Hormones And Synthetic Substit Sig/Deonna Start time Last Medication Dose Route Stop Time Status Admin Insulin Human Lispro 38 UNIT X1ED STA 08/19 2018 DC 08/19 SUBQ 08/19 Free Text MDM [...] Documented: Result Date Time Pulse Ox 97 /08 1818 B/P 160/86 06/08 1818 B/P Mean 110 06/08 1818 O2 Delivery Room air / 1818 Temp 98.2 06/08 1818 Pulse 101 06/08 1818 Resp 16 /08 1818 Last Documented: Result Date Time Pulse Ox 97 /08 1818 B/P 160/86 06/08 1818 B/P Mean 110 06/08 1818 O2 Delivery Room air 06/08 1818 Temp 98.2 06/08 1818 Pulse 101 06/08 1818 Resp 16 /08 1818 All vital signs available at the time of this entry have been reviewed. Clinical Impression Clinical Impression Primary Impression: Hyperglycemia Secondary Impressions: Diabetes mellitus case management patient Time of Impression 2020 Disposition Decision Hospitalize Hosp Physician Name Gavino Mercado MD Hosp Physician Hospitalist Request Time 2021 Request Date [...] over this patient's care. Isidro Friedman 09/04/22 2305: Patient Discharge Departure Supervising Physician Note MidLv/Doc Saw Pt 2 The PA/DISK GRINDER has seen the patient and I have performed this visit along with the involvement of the PA/DISK GRINDER. I agree with the PA/neonatal critical care nurse findings and plan. I have performed all aspects of MDM as documented including: evaluation of the patient/ patient's condition(s), review and analysis of available data, and determination of risk of patient management decisions. at 1659 at 2305 [facility] #:[id number] END OF REPORT [facility] 2022-08-10 16:28:00 [facility] ([facility]) EMERGENCY PROVIDER REPORT REPORT#:[id number] REPORT STATUS: Signed DATE:08/10/22 TIME: 162 PATIENT: AMINTA NINO UNIT #: [id number] ROOM/BED: AGE: 32 SEX: F PCP PHYS: [...] this weekend for which she went to [place]. She is still having significant pain in [...] Ox 99 08/10 1329 B/P 151/92 08/10 132 B/P Mean 111 08/10 1329 Temp 98.4 08/10 132 Pulse 106 08/10 1329 Resp 18 08/10 1329 Last Documented: Result Date Time Pulse Ox 99 08/10 1918 B/P 126/67 08/10 1918 Pulse 94 08/10 1918 Resp 18 08/10 1918 B/P Mean 111 08/10 1329 Temp 98.4 [...] - 8.0 pH UNITS) 7.0 Ur Specific [place] (1.001 - 1.035 SG) 1.016 Urine Protein [...] Report Impression - Status: SIGNED Entered: 08/10/2022 0088 IMPRESSION: 1. 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 pickler today Shared decision making: I discussed the [...] X1ED STA 08/10 1559 DC 05/30 IV 05/ 1600 1802 Sodium Chloride 1,000 ML X1ED STA 08/10 1331 DC 05/30 IV / 1430 1548 Hormones And Synthetic Substit Sig/Deonna Start time Last Medication Dose Route Stop Time Status Admin Insulin Human Regular 10 UNIT X1ED STA 08/10 1558 DC 05/30 SUBQ 08/10 1559 1638 Patient Discharge Departure Vital Signs/Condition Vital Signs First Documented: Result Date Time Pulse Ox 99 08/10 1329 B/P 151/92 08/10 1329 B/P Mean 111 08/10 1329 Temp 98.4 08/10 1329 Pulse 106 08/10 1329 Resp 18 08/10 1329 Last Documented: Result Date Time Pulse Ox 99 08/10 191 B/P 126/67 08/10 191 Pulse 94 / 191 Resp 18 08/10 191 B/P Mean [...] shoulder frequently and return or see an order processing specialist if the pain is not improving [...] will need outpatient follow-up. at 1931 RPT #:[id number] END OF REPORT [facility] 2022-08-10 13:33:00 [facility] ([facility]) EMERGENCY PROVIDER REPORT REPORT#:[id number] REPORT STATUS: Signed DATE:08/10/22 TIME: 1332 PATIENT: AMINTA NINO UNIT #: [id number] ROOM/BED: AGE: 32 SEX: F PCP PHYS: [...] or older: Current every day smoker at 1126 RPT #:[id number] END OF REPORT [facility] 2022-08-07 16:07:00 [facility] ([facility]) EMERGENCY PROVIDER REPORT REPORT#:[id number] REPORT STATUS: Signed DATE:08/07/22 TIME: 160 PATIENT: AMINTA NINO UNIT #: [id number] ROOM/BED: AGE: 32 SEX: F PCP PHYS: Tad Jordan MD SERVICE AUTHOR: Andrea Marcos MD * ALL edits or amendments must be made on the electronic/computer document * HPI-General Illness Free Text HPI Notes Free Text HPI Notes 32-year-old female sent here by her CASHIER CREDIT because of blood sugars been above 200. 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 She has [...] Maternal Serum HCG (0 - 3 mi-IU/ML) 10840 H Urines Urine Color (YELLOW DESCRIPT) LIGHT-YELLOW Urine Appearance (CLEAR DESCRIPT) CLEAR Urine pH (4.6 - 8.0 pH UNITS) 6.5 Ur Specific [place] (1.001 - 1.035 SG) 1.035 Urine Protein [...] - US PREG EVAL 1ST TRIMTR 08/07 1550 Report Impression - Status: SIGNED Entered: 08/07/20228 IMPRESSION: There is a single live intrauterine seen at 11 weeks 6 days gestation. Please refer to the findings section for additional details. Impression By: Zeenat Ngo MD ULTRASOUND - US PREG UT TRANSVAGINAL 08/07 1550 Report Impression - Status: SIGNED Entered: 08/07/2022 1628 IMPRESSION: There is a single live intrauterine [...] and have her follow-up with her high school math teacher. Nothing further to do. She is not [...] ONCE ONE 08/07 1745 AC IV 08/07 1746 Patient Discharge Departure Vital Signs/Condition Vital Signs [...] ED Diabetes with High Blood Sugar at 2002 RPT #:[id number] END OF REPORT [facility] 2022-08-07 15:31:00 [facility] EM[facility]ENC[facility] PROVIDER REPORT REPORT#:[id number] REPORT STATUS: Signed DATE:08/07/22 TIME: 153 PATIENT: AMINTA NINO UNIT #: [id number] ROOM/BED: AGE: 32 SEX: F PCP PHYS: [...] use Drug Use Denies recreational drugs at 6875 RPT #:[id number] END OF REPORT [facility] 2022-07-13 17:51:00 [facility] EM[facility]ENC[facility] PROVIDER REPORT REPORT#:[id number] REPORT STATUS: Signed DATE:07/13/22 TIME: 175 PATIENT: AMINTA NINO UNIT #: [id number] ROOM/BED: AGE: 32 SEX: F PCP PHYS: Tad Jordan MD SERVICE AUTHOR: Alba Toro DISK GRINDER * ALL edits or amendments must be made on the electronic/computer document * Alba Toro 07/13/22 1751: Provider in Triage - Adult Provider in [...] the ER without complaints but reports her MFM provider advised her to go to ER [...] patient without success. at 1753 at 0403 [facility] #:[id number] END OF REPORT [facility] 2022-04-10 15:23:00 [facility] ([facility]) EMERGENCY PROVIDER REPORT REPORT#:[id number] REPORT STATUS: Signed DATE:04/10/22 TIME: 1523 PATIENT: AMINTA NINO UNIT #: [id number] ROOM/BED: AGE: 31 SEX: F PCP PHYS: Tad Jordan MD SERVICE AUTHOR: Toro,Alba A DISK GRINDER * ALL edits or amendments must be made on the electronic/computer document * Toro,Alba A 04/10/22 1523: HPI-General Illness Free Text HPI [...] Instructions You can use Tylenol or ibuprofen [id number] as needed for pain. Follow the package [...] sugar reading. You can follow-up with an CASHIER CREDIT within the next week and discuss this visit today. Return to the ER for any worsening or concerning symptoms, including but not limited to: Fever which is 100.4 F or higher, redness/worsening pain/swelling to either breast, open wounds or discharge from either breast/nipple. Departure Forms [facility] [place] PCP LIST OBGYN BY AREA WORK/SCHOOL EXCUSE [...] Result Date Time Pulse Ox 98 04/10 181 B/P 144/94 04/10 181 B/P Mean 110.2 04/10 1813 O2 Delivery Room air 04/10 1813 Temp 98.1 04/10 181 Pulse 81 04/10 181 Resp 18 04/10 1813 Interpretation Diagnostics Lab Results Interpretation Results Laboratory Tests 04/10/22 154: [Embedded Image Not Available] Creatinine < 0.5 L Laboratory Tests: 04/10 1542 Chemistry Sodium (137 - 145 mmol/L) 136 [...] % (Auto) (20.5 - 45.5 %) 38.9 Hays % (Auto) (5.5 - 11.7 %) 6.4 Eos % (Auto) (0.9 - 2.9 %) 0.7 L Baso % (Auto) (0.2 - 1.0 %) 0.3 Neut # (Auto) (2.2 - 4.8 x10 3/uL) 4.77 Lymph # (Auto) (1.3 - 2.9 x10 3/uL) 3.48 H [place] # (Auto) (0.3 - 0.8 x10 3/uL) [...] 04/10 1814 O2 Delivery Room air 04/10 1813 Temp 98.1 04/10 181 Pulse 81 04/10 1814 Resp 18 04/10 181 All vital signs available at the time of this entry have been reviewed. Supervising Physician Note Gisselle Saw Pt Alone I have reviewed the PA/DISK GRINDER's note and plan of care. I was available for consultation as needed at all times during the patient's visit in the emergency department. I agree with the clinical impression, plan and disposition. at 1747 at 0017 RPT #:[id number] END OF REPORT [facility] 2022-04-10 13:54:00 [facility] ([facility]) EMERGENCY PROVIDER REPORT REPORT#:[id number] REPORT STATUS: Signed DATE:04/10/22 TIME: 1354 PATIENT: AMINTA NINO UNIT #: [id number] ROOM/BED: AGE: 31 SEX: F PCP PHYS: Tad Jordan MD SERVICE AUTHOR: Colette Panda APRNNP * ALL edits or amendments must be [...] bipolar DM at 1403 at 1722 at 0237 RPT #:[id number] END OF REPORT [facility] 2021-03-19 01:24:00 [facility] ([facility]) EMERGENCY PROVIDER REPORT REPORT#:[id number] REPORT STATUS: Signed DATE:03/19/21 TIME: 012 PATIENT: AMINTA NINO UNIT #: [id number] ROOM/BED: AGE: 30 SEX: F PCP PHYS: No Primary or Family Physician SERVICE AUTHOR: Juanita Childress DO R1 * ALL edits or amendments [...] Extremities: pedal pulses intact, moving extremities spontaneously. Neuro/JIG FITTER: alert, oriented X 3, follows commands, CNII-XII intact bilaterally. Interpretation Diagnostics Lab Results Interpretation Considerations Independ review imaging, Reviewed prior records Results Laboratory Tests 03/18/212143: [Embedded Image Not Available] Laboratory Tests: 03/19 Chemistry Sodium (137 - 145 mmol/L) 140 [...] % (Auto) (20.5 - 45.5 %) 21.9 [place]ays % (Auto) (5.5 - 11.7 %) 8.6 Eos % (Auto) (0.9 - 2.9 %) 0.3 L Baso % (Auto) (0.2 - 1.0 %) 0.3 Neut # (Auto) (2.2 - 4.8 x10 3/uL) 11.71 H Lymph # (Auto) (1.3 - 2.9 x10 3/uL) 3.74 H [place] # (Auto) (0.3 - 0.8 x10 3/uL) 1.47 H Eos # (Auto) (0.0 - 0.2 x10 3/uL) 0.05 Baso # (Auto) (0.0 - 0.1 x10 3/uL) 0.05 Immature Gran % (0.0 - 2.0 %) 0.4 Nucleated RBC % (0 - 1.0 %) 0.0 Toxicology [place] (0.6 - 1.2 mmol/L) < 0.2 L Urines Urine Color (Yellow) Yellow Urine Appearance (Clear) Slightly-Cloudy Urine pH (5.0 - 8.0) 6.0 Ur Specific [place] (<1.030) 1.014 Urine Protein (Negative mg/dL) 30 [...] 03/18 2010 DC 03/18 IV 03/18 2011 2248 Gastrointestinal Drugs Sig/Deonna Start time Last Medication [...] Eloped from emergency department Time of Impression 311 Disposition Decision Discharge )( Discharged to Home eloped )( Time 311 )( Date 03/19/21 Elopement Note Elopement Note [...] at 0440 at 0957 at 0141 RPT #:[id number] END OF REPORT [facility] 2021-03-18 20:13:00 [facility] ([facility]) EMERGENCY PROVIDER REPORT REPORT#:[id number] REPORT STATUS: Signed DATE:03/18/21 TIME: 2012 PATIENT: AMINTA NINO UNIT #: [id number] ROOM/BED: AGE: 30 SEX: F PCP PHYS: [...] LMP: 2 days ago but also has [facility] PMH-Provider in Triage Stated Complaint TREMORS,NAUSEA Allergies Coded Allergies: No Known Allergies (03/18/21) at 0246 at 0059 RPT #:[id number] END OF REPORT HCAKW
--- NOTE | 2024-07-11 15:06 | RAD REPORT ---
EXAMINATION: ONE VIEW CHEST XR CLINICAL INDICATION: COUGH TECHNIQUE: Frontal chest projection is submitted. Examination is limited by patient positioning and t echnique. COMPARISON: No prior exam. FINDINGS: Mild linear atelectasis is present in both lung bases, greater on the left. No focal consolidation ty pical of pneumonia seen. The heart is normal in size. No displaced fractures identified.
[2024-07-11] MEDS ORDERED: ONDANSETRON 4 MG/2 ML VIAL ONE (15:22)
[2024-07-11] MEDS ORDERED: NA CHLORIDE 0.9% 1,000 ML ONE ×2 (15:22→17:46)
[2024-07-11 15:35] LABS: Specific Gravity > 1.030 (1.005-1.030)
[2024-07-11 15:38] LABS: Influenza A Ag Negative; Influenza B Ag Negative; SARS-CoV-2 Antigen Rapid Res Negative (Negative)
[2024-07-11 15:38] LABS: Specific Gravity > 1.030 (1.005-1.030); Sqamous Epithelial <5 /HPF (None Seen); Urine Bacteria None Seen /HPF (<20); Urine Bilirubin NEGATIVE (Negative); Urine Blood Negative (Negative); Urine Clarity Clear (Clear); Urine Color Colorless (Yellow); Urine Crystals Unidentified Few /HPF (None Seen); Urine Culture Reflex Order NOT NEEDED; Urine Glucose 4+ (Over) (Negative); Urine Ketones 4+ (Over) (Negative); Urine Microscopic Reflex YN ORDER UMIC; Urine Nitrite NEGATIVE (Negative); Urine Protein 2+ (Negative); Urine RBC <5 /HPF (None Seen); Urine Urobilinogen Normal (Normal); Urine WBC <5 /HPF (<5); Urine Yeast (Budding) Trace /HPF (None Seen); Urine pH 5.5 (5.0-7.0)
[2024-07-11 15:42] LABS: Absolute Lymphocytes (CBC) 0.5 K/uL (0.7-4.9); Absolute Monocytes 0.3 K/uL (0.1-1.3); Absolute Neutrophil 9.7 K/uL (1.8-8.0); Basophils % 0.4 % (0-1.3); Eosinophils % 0.1 % (0-4.4); Hematocrit 44.2 % (36.0-45.0); Lymphocytes % 4.4 % (15.3-44.8); MCH 28.2 pg (27.0-35.0); MCHC 33.9 g/dL (32.0-36.0); MCV 83.3 fL (80-100); Monocytes % 3.3 % (3.3-12.3); Neutrophils % 91.8 % (41.7-73.7); Nucleated Red Blood Cells % 0.1 % (0-0); Platelets 248 thou/uL (152-406); Red Cell Distribution Width 13.1 % (12.1-15.2)
[2024-07-11 16:11] LABS: Albumin 3.7 g/dL (3.4-5.0); Albumin/Globulin Ratio 0.9 (1.1-1.8); Anion Gap 19.1 mEq/L (5.0-15.0); Bilirubin Total 1.2 mg/dL (0.2-1.0); Globulin 4.3 g/dL (2.3-3.5); Potassium 4.1 mEq/L (3.5-5.1)
[2024-07-11 17:29] LABS: Blood Morphology Comment NOT SEEN (NOT SEEN); Platelet Estimate ADEQ; White Blood Cell Scan OK (OK)
[2024-07-11] MEDS ORDERED: ONDANSETRON 4 MG/2 ML VIAL IV PRN (17:35)
--- NOTE | 2024-07-11 17:42 | P.HP ---
Certification for Inpatient Patient admitted to: Inpatient With expected LOS: >2 Midnights Patient will require the following post-hospital care: None Practitioner: I am a practitioner with admitting privileges, knowledge of patient current condition, hospital course, and medical plan of care. Services: Services provided to patient in accordance with Admission requirements found in Title 42 Section 412.3 of the Code of Federal Regulations Patient History Date of Service: 07/11/24 Reason for admission: DKA History of Present Illness: 34-year-old female with history of insulin-dependent diabetes, hypertension presents emerged department chief complaint of nausea vomiting abdominal pain. She reports that she began having nausea vomiting and diarrhea this morning around 4 AM. At home she typically takes Lantus 20 units twice daily, she did not take it today as she was feeling sick and tired. She also does Humalog based on her food intake. Patient was evaluated in the emergency department her labs were significant for a bicarb of 19 glucose of 665 white blood cell count 10.5 urine with 4+ glucose, 4+ ketones. Chest x-ray was obtained which showed mild linear atelectasis present in both lung bases, greater on the left. No focal consolidation typical of pneumonia. Patient with DKA, will be admitted as an ICU patient on insulin drip. Ongoing abdominal pain reported, will obtain CT of the abdomen pelvis as well - Past Medical/Surgical History -: Insulin-dependent diabetes -: hypertension -: None Psychosocial/ Personal History: Lives at home with her mother - Social History Alcohol use: No CD- Drugs: No Caffeine use: Yes Place of Residence: Home Review of Systems 10-point ROS is otherwise unremarkable Gastrointestinal: Nausea, Vomiting, Abdominal Pain, Diarrhea Physical Examination - Physical Exam General: Alert, In no apparent distress, Oriented x3 HEENT: Atraumatic, PERRLA Neck: Supple, 2+ carotid pulse no bruit, No LAD, Without JVD or thyroid abnormality Respiratory: Clear to auscultation bilaterally, Normal air movement Cardiovascular: Regular rate/rhythm, Normal S1 S2 Gastrointestinal: Normal bowel sounds, No tenderness Musculoskeletal: No tenderness Integumentary: No rashes Neurological: Normal speech, Normal strength at 5/5 x4 extr - Studies Laboratory Data (last 24 hrs) 07/11/24 07/11/24 15:30 15:30 WBC 10.50 Hgb 15.0 Hct 44.2 Plt Count 248 Sodium 130 L Potassium 4.1 BUN 14 Creatinine 1.09 H Glucose 665 H* Total Bilirubin 1.2 H AST 12 L ALT 24 Alkaline Phosphatase 121 H Lipase 38 Assessment and Plan - Plan Assessment: Diabetes mellitus type 2insulin-dependent with ketoacidosis Hypertension Insomnia Plan: Diabetes mellitus type 2insulin-dependent with ketoacidosis Hourly Accu-Cheks, insulin drip, every 4 hour chemistries Continue aggressive IV hydration Admit to ICU Nausea and vomiting improved but still having abdominal pain, will obtain CT to further evaluate Hypertension Continue home indications when verified Insomnia Continue trazodone 100 mg at night for sleep DVT PPX: Lovenox Code status:full Discharge Plan: Home Plan to discharge in: Greater than 2 days - Advance Directives Does patient have a Living Will: No Does patient have a Durable POA for Healthcare: No - Code Status/Comfort Care Code Status Assessed: Yes (Full code) Critical Care: No Time Spent Managing Pts Care (In Minutes): 68
--- NOTE | 2024-07-11 17:49 | ER ---
Nurse's Notes [facility] Name: Aminta Bell Age: 34 yrs Sex: Female : 1990 Arrival Date: 07/11/2024 Time: 14:35 Bed 17 Private MD: Diagnosis: Type 1 diabetes mellitus with ketoacidosis Presentation: 07/11 15:19 Chief complaint: Patient states: has been throwing up since 4 am, chills, body aches, iw trouble breathing , no cough , also having low back pain and urine frequency. Coronavirus screen: Client presents with at least one sign or symptom that may indicate coronavirus-19. Ebola Screen: No symptoms or risks identified at this time. Initial Sepsis Screen: Does the patient meet any 2 criteria? HR > 90 bpm. Does the patient have a suspected source of infection? No. Patient's initial sepsis screen is negative. Risk Assessment: Do you want to hurt yourself or someone else? Patient reports no desire to harm self or others. Onset of symptoms was July 11, 2024. 15:19 Method Of Arrival: Ambulatory iw 15:19 Acuity: KARINA 3 iw Historical: - Allergies: 15:21 Latex; iw - PMHx: 15:21 Anxiety; diabetes mellitus; Hypertensive disorder; iw - PSHx: 15:21 None; iw - Immunization history:: Adult Immunizations up to date. - Infectious Disease History:: Denies. - Social history:: Smoking status: Patient denies any tobacco usage or history of. Screenin:[address] [facility] ED Fall Risk Assessment (Adult) History of falling in the last 3 months, jl7 including since admission No falls in past 3 months (0 pts) Confusion or Disorientation No (0 pts) Intoxicated or Sedated No (0 pts) Impaired Gait No (0 pts) Mobility Assist Device Used No (0 pt) Altered Elimination No (0 pt) Score/Fall Risk Level 0 - 2 = Low Risk Oriented to surroundings, Maintained a safe environment. Abuse screen: Denies threats or abuse. Denies injuries from another. Nutritional screening: No deficits noted. Tuberculosis screening: No symptoms or risk factors identified. Assessment: 16:54 Reassessment: Patient and/or family updated on plan of care and expected duration. Pain ll1 level reassessed. 17:00 General: Appears in no apparent distress. uncomfortable, Behavior is calm, cooperative, jl7 appropriate for age. Pain: Complains of pain in back Pain currently is 8 out of 10 on a pain scale. Neuro: Level of Consciousness is awake, alert, obeys commands, Oriented to person, place, time, situation. Cardiovascular: Patient's skin is warm and dry. Respiratory: Airway is patent Respiratory effort is even, unlabored, Respiratory pattern is regular, symmetrical. GI: Reports nausea, vomiting. Derm: Skin is dry, Skin is red, Skin temperature is warm. 18:00 Reassessment: Patient appears in no apparent distress at this time. No changes from jl7 previously documented assessment. Patient and/or family updated on plan of care and expected duration. Pain level reassessed. Patient is alert, oriented x 3, equal unlabored respirations, skin warm/dry/pink. Vital Signs: 15:19 BP 129 / 88; Pulse 124; Resp 20; Temp 98.4; Pulse Ox 98% on R/A; Weight 99.79 kg; iw Height 5 ft. 0 in. ; Pain 8/10; 17:06 BP 134 / 98; Pulse 120; Resp 19 S; Temp 98.5(O); Pulse Ox 100% ; jl7 15:19 Body Mass Index 42.97 (99.79 kg, 152.4 cm) iw 15:19 Pain Scale: Adult iw ED Course: 14:38 Patient arrived in ED. im 14:39 Gloria Deleon MD is Attending Physician. gb1 14:57 Inserted saline lock: 20 gauge in left antecubital area, using aseptic technique. bc6 Flushed with 10 mL NS. 14:57 COVID swab sent to lab. Flu and/or RSV swab sent to lab. bc6 14:58 COVID-19 Ag + Flu A+B Ag Sent. bc6 15:03 Chest Single View XRAY In Process Unspecified. EDMS 15:20 Triage completed. iw 15:21 Arm band placed on. iw 15:35 CBC with Diff Sent. bc6 15:35 CMP Sent. bc6 15:35 Lipase Sent. bc6 15:35 Initial lab(s) drawn, by me, sent to lab. bc6 16:53 Patient placed in an exam room, on a stretcher. ll1 16:59 Lincoln Augustine, DAGMAR is Primary Nurse. jl7 17:48 Eric Aaron MD is Hospitalizing Provider. gb1 18:00 Patient has correct armband on for positive identification. Provided Education on: jl7 admit. 18:54 Attending Physician role handed off by Gloria Deleon MD jl7 18:54 No provider procedures requiring assistance completed. Patient admitted, IV remains in jl7 place. intact, No redness/swelling at site. Administered Medications: 15:45 Drug: Ondansetron IVP 4 mg IVP once; over 2 minutes Route: IVP; Site: right antecubital;iw 18:52 Follow up: Response: No adverse reaction jl7 15:45 Drug: NS 0.9% IV 1000 ml IV at 1 bolus Per protocol; to be given as a bolus over 60 iw minutes Route: IV; Rate: 1 bolus; Site: right antecubital; 17:00 Follow up: Response: No adverse reaction; IV Intake: 1000ml jl7 17:00 Follow up: IV Status: Completed infusion jl7 18:11 Drug: HYDROcodone-acetaminophen PO 5 mg-325 mg 1 tabs PO once Route: PO; jl7 18:53 Follow up: Response: No adverse reaction jl7 18:45 Drug: Insulin Drip - (Insulin Regular Human IVP 100 units, NS 0.9% IV 100 ml) IV at jl7 calculated rate continuous; Standard concentration 1unit/ml; Dose for DKA is 0.1 units/kg/hr {Co-Signature: me1 (Mila Chinchilla RN).} Route: IV; Rate: calculated rate; Site: left antecubital; 18:50 Follow up: IV Status: Infusion continued upon admission jl7 18:45 Drug: NS 0.9% IV 1000 ml IV at 1 bolus Per protocol; to be given as a bolus over 60 jl7 minutes Route: IV; Rate: 1 bolus; Site: left antecubital; 18:50 Follow up: IV Status: Infusion continued upon admission jl7 Medication: 18:00 VIS not applicable for this client. jl7 Intake: 17:00 IV: 1000ml; Total: 1000ml. jl7 Outcome: 17:49 Decision to Hospitalize by Provider. gb1 18:54 Admitted to ICU accompanied by nurse, via stretcher, room 5, jl7 18:54 Condition: stable 18:54 Discharge instructions given to patient, Instructed on the need for admit, Demonstrated understanding of instructions, 18:54 Patient left the ED. jl7 18:57 Patient left the ED. ll1 Signatures: Dispatcher [employer] Meagan Hobson RN RN iw Lincoln Augustine RN RN jl7 Bree Bernal RN RN ll1 Alba Murrell 6 Yazmin Hogan Gina, MD MD gb1 Mila Chinchilla RN me1 Corrections: (The following items were deleted from the chart) 15:21 15:19 Chief complaint: Patient states: has been throwing up since 4 am, chills, body iw caches, trouble breathing , no cough , also having low back pain and urine frequency iw
--- NOTE | 2024-07-11 17:50 | EDPHYS ---
Physician Documentation [facility] Name: Aminta Bell Age: 34 yrs Sex: Female : 1990 Arrival Date: 07/11/2024 Time: 14:35 Bed 17 Private MD: ED Physician HPI: 07/11 18:02 This 34 yrs old Female presents to ER via Ambulatory with complaints of Flu gb1 Symptoms. 18:02 34-year-old female with nausea vomiting woke her up from sleep last night. She is a gb1 history of anxiety insulin-dependent diabetes and hypertension. Patient's been eating very unhealthy food as she has a sweet tooth and her sugars have been between 2 and 300.. Historical: - Allergies: 15:21 Latex; iw - PMHx: 15:21 Anxiety; diabetes mellitus; Hypertensive disorder; iw - PSHx: 15:21 None; iw - Immunization history:: Adult Immunizations up to date. - Infectious Disease History:: Denies. - Social history:: Smoking status: Patient denies any tobacco usage or history of. Exam: 18:02 Constitutional: This is a well developed, well nourished patient who is awake, alert, gb1 and in no acute distress. Ketotic breath with dry mucous membranes Head/Face: Normocephalic, atraumatic. Eyes: Pupils equal round and reactive to light, extra-ocular motions intact. Lids and lashes normal. Conjunctiva and sclera are non-icteric and not injected. Cornea within normal limits. Periorbital areas with no swelling, redness, or edema. ENT: Nares patent. No nasal discharge, no septal abnormalities noted. Tympanic membranes are normal and external auditory canals are clear. Oropharynx with no redness, swelling, or masses, exudates, or evidence of obstruction, uvula midline. Mucous membranes moist. Neck: Trachea midline, no thyromegaly or masses palpated, and no cervical lymphadenopathy. Supple, full range of motion without nuchal rigidity, or vertebral point tenderness. No Meningismus. Chest/axilla: Normal chest wall appearance and motion. Nontender with no deformity. No lesions are appreciated. Cardiovascular: Tachycardic rate and rhythm with a normal S1 and S2. No gallops, murmurs, or rubs. Normal PMI, no JVD. No pulse deficits. Respiratory: Lungs have equal breath sounds bilaterally, clear to auscultation and percussion. No rales, rhonchi or wheezes noted. No increased work of breathing, no retractions or nasal flaring. Abdomen/GI: Soft, non-tender, with normal bowel sounds. No distension or tympany. No guarding or rebound. No evidence of tenderness throughout. Back: No spinal tenderness. No costovertebral tenderness. Full range of motion. Skin: Warm, dry with normal turgor. Normal color with no rashes, no lesions, and no evidence of cellulitis. MS/ Extremity: Pulses equal, no cyanosis. Neurovascular intact. Full, normal range of motion. Neuro: Awake and alert, GCS 15, oriented to person, place, time, and situation. Cranial nerves II-XII grossly intact. Motor strength 5/5 in all extremities. Sensory grossly intact. Cerebellar exam normal. Normal gait. Vital Signs: 15:19 BP 129 / 88; Pulse 124; Resp 20; Temp 98.4; Pulse Ox 98% on R/A; Weight 99.79 kg; iw Height 5 ft. 0 in. ; Pain 8/10; 17:06 BP 134 / 98; Pulse 120; Resp 19 S; Temp 98.5(O); Pulse Ox 100% ; jl7 15:19 Body Mass Index 42.97 (99.79 kg, 152.4 cm) iw 15:19 Pain Scale: Adult iw MDM: 15:04 Medical Screening Exam initiated gb1 18:02 Data reviewed: vital signs, nurses notes, lab test result(s), amylase and lipase, CBC, gb1 electrolytes, sodium, potassium, chloride, serum bicarbonate, BUN, creatinine, serum glucose, urinalysis. ED course: 34-year-old female with history of diabetes insulin-dependent here in acute DKA. Patient is requiring insulin IV drip and admission to the ICU under Dr. Aaron.. 07/11 14:40 Order name: COVID-19 Ag + Flu A+B Ag; Complete Time: 16:09 gb07/11 14:40 Order name: Group A Streptococcus Rapid gb1 07/11 14:48 Order name: Test, Urine; Complete Time: 16:09 gb1 07/11 14:48 Order name: Urinalysis w/ reflexes; Complete Time: 16:09 gb07/11 15:08 Order name: CBC with Diff; Complete Time: 17:32 gb1 07/11 15:08 Order name: CMP; Complete Time: 17:17 gb1 07/11 15:08 Order name: Lipase; Complete Time: 17:17 gb1 07/11 16:30 Order name: BETA HYDROXYBUTYRATE gb1 07/11 16:30 Order name: ABG: VBG gb1 07/11 17:29 Order name: CBC Smear Scan; Complete Time: 17:32 EDMS 07/11 17:39 Order name: Basic Metabolic Panel EDMS 07/11 17:39 Order name: Basic Metabolic Panel EDMS 07/11 17:39 Order name: Basic Metabolic Panel EDMS 07/11 17:39 Order name: Basic Metabolic Panel EDMS 07/11 17:39 Order name: Basic Metabolic Panel EDMS 07/11 17:39 Order name: Basic Metabolic Panel EDMS 07/11 17:39 Order name: CBC with Automated Diff EDMS 07/11 17:39 Order name: CBC with Automated Diff EDMS 07/11 17:39 Order name: CBC with Automated Diff EDMS 07/11 17:39 Order name: CBC with Automated Diff EDMS 07/11 17:39 Order name: Hemoglobin A1c EDMS 07/11 17:39 Order name: Hemoglobin A1c EDMS 07/11 17:39 Order name: Lipid Profile EDMS 07/11 17:39 Order name: Lipid Profile EDMS 07/11 17:39 Order name: Magnesium EDMS 07/11 17:39 Order name: Magnesium EDMS 07/11 17:39 Order name: Magnesium EDMS 07/11 17:39 Order name: Magnesium EDMS 07/11 17:39 Order name: Phosphorus EDMS 07/11 17:39 Order name: Phosphorus EDMS 07/11 17:39 Order name: Phosphorus EDMS 07/11 17:39 Order name: Phosphorus EDMS 07/11 14:40 Order name: Chest Single View XRAY; Complete Time: 15:08 gb1 07/11 17:32 Order name: CT Abd/Pelvis - IV Contrast Only la1 07/11 18:49 Order name: CT EDMS Administered Medications: 15:45 Drug: Ondansetron IVP 4 mg IVP once; over 2 minutes Route: IVP; Site: right antecubital;iw 18:52 Follow up: Response: No adverse reaction jl7 15:45 Drug: NS 0.9% IV 1000 ml IV at 1 bolus Per protocol; to be given as a bolus over 60 iw minutes Route: IV; Rate: 1 bolus; Site: right antecubital; 17:00 Follow up: Response: No adverse reaction; IV Intake: 1000ml jl7 17:00 Follow up: IV Status: Completed infusion jl7 18:11 Drug: HYDROcodone-acetaminophen PO 5 mg-325 mg 1 tabs PO once Route: PO; jl7 18:53 Follow up: Response: No adverse reaction jl7 18:45 Drug: Insulin Drip - (Insulin Regular Human IVP 100 units, NS 0.9% IV 100 ml) IV at jl7 calculated rate continuous; Standard concentration 1unit/ml; Dose for DKA is 0.1 units/kg/hr {Co-Signature: me1 (Mila Chinchilla RN).} Route: IV; Rate: calculated rate; Site: left antecubital; 18:50 Follow up: IV Status: Infusion continued upon admission jl7 18:45 Drug: NS 0.9% IV 1000 ml IV at 1 bolus Per protocol; to be given as a bolus over 60 jl7 minutes Route: IV; Rate: 1 bolus; Site: left antecubital; 18:50 Follow up: IV Status: Infusion continued upon admission jl7 Disposition Summary: 07/11/24 17:49 Hospitalization Ordered Notes: Hospitalization Status: Inpatient Admission gb1 Provider: Erci Aaron Location: Intensive Care Unit gb1 Condition: Critical gb1 Problem: an acute exacerbation gb1 Symptoms: have worsened gb1 Bed/Room Type: Standard [facility] Room Assignment: 5-(07/11/24 17:52) Diagnosis - Type 1 diabetes mellitus with ketoacidosis gb1 Forms: - Medication Reconciliation Form gb1 - SBAR form gb1 - Leadership Thank You Letter gb1 Critical care time excluding procedures: 18:02 Critical care time: Bedside Care: 120 minutes, Consultation: 20 minutes, Family gb1 Intervention: 20 minutes. Total time: 160 minutes Signatures: Dispatcher [employer] Meagan Hobson RN RN Nicolle Pugh RN RN Jamie Chavarria, TESSIE-C [id number]-Bob1 Lincoln Augustine RN RN jl7 Gloria Deleon MD MD gb1 Mila Chinchilla RN me1 Corrections: (The following items were deleted from the chart) 17:52 17:49 gb1 ss
[2024-07-11] MEDS ORDERED: D5 0.45 NS 1,000 ML IV SCH (18:00)
[2024-07-11] MEDS ORDERED: HYDROCODONE/APAP 5/325 MG TAB ONE (18:01)
--- NOTE | 2024-07-11 18:49 | RAD REPORT ---
EXAMINATION: CT ABDOMEN AND PELVIS WITH CONTRAST CLINICAL INDICATION: ABD PAIN TECHNIQUE: CT abdomen and pelvis was performed, after the administration of IV contrast, as per [facility] protocol. Axial, sagittal and coronal reconstructions were obtained. One or more of the following dose reduction techniques were used: Automated exposure control, adjustment of the mA and k V according to patient size, and iterative reconstruction. Unless otherwise specified, incidental findings do not require dedicated imaging follow-up. COMPARISON: No prior exam. FINDINGS: LOWER CHEST: The visualized lung bases are clear. LIVER: Hepatomegaly with diffuse fatty liver. Grossly unremarkable gallbladder. SPLEEN: Normal size. No focal lesion. PANCREAS: No mass, ductal dilation, or marisa-pancreatic fluid. ADRENALS: Normal; no mass. KIDNEYS: Normal size and contour. No hydronephrosis. GASTROINTESTINAL TRACT: No evidence of free air, significant intra-abdominal free fluid, bowel obstru ction or abscess. APPENDIX: Normal appendix. LYMPH NODES: No lymphadenopathy. MUSCULOSKELETAL: Prominent lower lumbar disc bulging. ADDITIONAL FINDINGS: None. IMPRESSION: Hepatomegaly with diffuse fatty liver.
[2024-07-11] MEDS: INSULIN REGULAR, HUMAN 100 UNIT in NA CHLORIDE 0.9% 100 ML IV SCH (19:00)
[2024-07-11 19:23] VITALS: O2SAT 100
[2024-07-11 19:41] VITALS: BMI 43.0
[2024-07-11] MEDS: MORPHINE 2 MG/ML SYR IV PRN (20:42)
[2024-07-11] MEDS: TRAZODONE 50 MG TABLET PO SCH (21:08)
[2024-07-11 21:53] LABS: Anion Gap 13.3 mEq/L (5.0-15.0); Potassium 3.3 mEq/L (3.5-5.1)
[2024-07-11] MEDS: NACHLORIDE 0.45% 1,000 ML IV SCH (22:16)
[2024-07-11] MEDS: D5 0.45 NS 1,000 ML IV SCH (23:50)
[2024-07-12 01:55] LABS: Anion Gap 9.4 mEq/L (5.0-15.0)
[2024-07-12 01:56] LABS: Potassium 3.4 mEq/L (3.5-5.1)
[2024-07-12 05:20] LABS: Absolute Lymphocytes (CBC) 1.7 K/uL (0.7-4.9); Absolute Monocytes 0.6 K/uL (0.1-1.3); Absolute Neutrophil 3.8 K/uL (1.8-8.0); Basophils % 0.4 % (0-1.3); Eosinophils % 0.7 % (0-4.4); Hematocrit 37.8 % (36.0-45.0); Hemoglobin 13.1 g/dL (12.0-15.0); Lymphocytes % 27.8 % (15.3-44.8); MCH 28.4 pg (27.0-35.0); MCHC 34.8 g/dL (32.0-36.0); MCV 81.7 fL (80-100); Monocytes % 10.1 % (3.3-12.3); Nucleated Red Blood Cells % 0.1 % (0-0); Platelets 204 thou/uL (152-406); RBC Red Blood Cell Count 4.63 M/uL (3.86-4.86); Red Cell Distribution Width 12.8 % (12.1-15.2)
[2024-07-12 05:37] LABS: Anion Gap 8.1 mEq/L (5.0-15.0); Magnesium 1.8 mg/dL (1.6-2.4); Phosphorus 2.8 mg/dL (2.5-4.9); Potassium 3.1 mEq/L (3.5-5.1)
[2024-07-12] MEDS: POTASSIUM 25 MEQ EFFERV TAB PO ONE (05:53)
[2024-07-12] MEDS: MAGNESIUM SULFATE 1 gm IVPB 1 GM/100 ML BAG IV ONE (05:53)
[2024-07-12] MEDS: INSULIN REGULAR (HUMAN) 100 UNIT/ML SQ SCH (07:30)
[2024-07-12] MEDS: ENOXAPARIN 40 MG/0.4 ML SQ SCH (07:55)
[2024-07-12] MEDS: CEFTRIAXONE 1,000 MG in NA CHLORIDE 0.9% 50 ML IVPB SCH (07:55)
[2024-07-12] MEDS: INSULIN GLARGINE 100 UNIT/ML SQ SCH ×2 (07:55→19:53)
[2024-07-12] MEDS: NA CHLORIDE 0.9% 1,000 ML IV SCH (07:56)
--- NOTE | 2024-07-12 09:11 | P.PN ---
Date of Service: 07/12/24 Subjective: Anion gap closed Tolerating clear liquids No acute events overnight ROS: 10 point ROS as noted above, otherwise negative Physical exam GEN: Alert, oriented, NAD HEENT: Normal conjunctiva, sclera anicteric CV: Regular rate and rhythm, no edema Pulm: Nonlabored respirations on room air ABD: Soft, nontender, nondistended MSK: No joint tenderness Integumentary: No rashes Neuro: Normal speech, normal affect Vitals reviewed Assessment: Diabetes mellitus type 2insulin-dependent with ketoacidosis Hypertension Insomnia Plan: Diabetes mellitus type 2insulin-dependent with ketoacidosis Anion gap closed Tolerating clears Start Semglee 20 units twice daily as well as aggressive sliding scale insulin Trial diet, if tolerating will DC insulin drip A1c 12 Hypertension Continue home indications when verified Insomnia Continue trazodone 100 mg at night for sleep DVT PPX: Lovenox Code status:full Discharge Plan: Home Plan to discharge in: Greater than 2 days Time Spent Managing Pts Care (In Minutes): 35
[2024-07-12 09:59] LABS: Anion Gap 13.9 mEq/L (5.0-15.0); Potassium 3.9 mEq/L (3.5-5.1)
[2024-07-12 14:12] LABS: Anion Gap 14.9 mEq/L (5.0-15.0); Potassium 3.9 mEq/L (3.5-5.1)
[2024-07-12] MEDS ORDERED: GLUCAGON 1 MG/VIAL IM PRN (17:10)
[2024-07-12] MEDS ORDERED: D10W 125 ML IV PRN (17:10)
[2024-07-12] MEDS: INSULIN LISPRO 100 UNIT/1 ML SQ SCH (19:52)
[2024-07-12] MEDS: ARIPiprazole 5 MG TAB PO SCH (19:54)
[2024-07-12] MEDS: NORETHINDRONE 0.35 MG PO SCH (19:56)
[2024-07-12] MEDS ORDERED: INSULIN LISPRO 100 UNIT/ML SQ SCH (21:00)
[2024-07-13 00:38] VITALS: TEMP 97
[2024-07-13 05:53] LABS: Absolute Eosinophils 0.1 K/uL (0-0.5); Absolute Monocytes 0.6 K/uL (0.1-1.3); Absolute Neutrophil 2.2 K/uL (1.8-8.0); Basophils % 0.4 % (0-1.3); Eosinophils % 1.6 % (0-4.4); Hematocrit 36.7 % (36.0-45.0); Hemoglobin 12.8 g/dL (12.0-15.0); Lymphocytes % 41.1 % (15.3-44.8); MCH 28.3 pg (27.0-35.0); MCHC 34.7 g/dL (32.0-36.0); MCV 81.3 fL (80-100); Monocytes % 12.5 % (3.3-12.3); Neutrophils % 44.4 % (41.7-73.7); Nucleated Red Blood Cells % 0.1 % (0-0); Platelets 198 thou/uL (152-406); RBC Red Blood Cell Count 4.52 M/uL (3.86-4.86); Red Cell Distribution Width 13.4 % (12.1-15.2)
[2024-07-13 06:15] LABS: Anion Gap 8.7 mEq/L (5.0-15.0); Magnesium 2.1 mg/dL (1.6-2.4); Phosphorus 2.8 mg/dL (2.5-4.9); Potassium 3.7 mEq/L (3.5-5.1)
[2024-07-13] MEDS: SERTRALINE HCL 100 MG TAB PO SCH (08:35)
[2024-07-13] MEDS: AMLODIPINE 10 MG TAB PO SCH (08:35)
[2024-07-13 10:07] VITALS: BP 120/74
--- NOTE | 2024-07-13 10:19 | P.DS ---
Admission Date: 07/11/24 Discharge Date: 07/13/24 Disposition: ROUTINE DISCHARGE Discharge Condition: GOOD Reason for Admission: DKA Brief History of Present Illness: 34-year-old female with history of insulin-dependent diabetes, hypertension presents emerged department chief complaint of nausea vomiting abdominal pain. She reports that she began having nausea vomiting and diarrhea this morning around 4 AM. At home she typically takes Lantus 20 units twice daily, she did not take it today as she was feeling sick and tired. She also does Humalog based on her food intake. Patient was evaluated in the emergency department her labs were significant for a bicarb of 19 glucose of 665 white blood cell count 10.5 urine with 4+ glucose, 4+ ketones. Chest x-ray was obtained which showed mild linear atelectasis present in both lung bases, greater on the left. No focal consolidation typical of pneumonia. Patient with DKA, will be admitted as an ICU patient on insulin drip. Ongoing abdominal pain reported, will obtain CT of the abdomen pelvis as well Hospital Course: Assessment: Diabetes mellitus type 2insulin-dependent with ketoacidosis Hypertension Insomnia Patient was admitted to the hospital for DKA, nausea and vomiting. She been unable to take her insulin as she was feeling unwell and blood sugars were elevated. On admission to the hospital blood sugar was 665 and anion gap was 19. She was treated with insulin drip and resolution in her DKA, blood sugars were persistently elevated, it was determined that patient takes between 40 and 60 units of Humalog 3 times daily in addition to 20 units of Lantus twice daily, her Humalog was resumed at 40 units with sliding scale and her blood sugars have improved. 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 She has been tolerating a diet, bicarb is 23 this morning and she is feeling much better. Vital Signs/Physical Exam: Temp Pulse Resp BP Pulse Ox 97 F 88 20 120/74 98 07/13/24 00:00 07/13/24 10:07/13/24 10:00 07/13/24 10:07/13/24 10:00 General: Alert, In no apparent distress, Oriented x3 HEENT: Atraumatic, PERRLA Neck: Supple, JVD not distended Respiratory: Clear to auscultation bilaterally, Normal air movement Cardiovascular: Regular rate/rhythm, Normal S1 S2 Gastrointestinal: Normal bowel sounds, No tenderness Musculoskeletal: No tenderness Integumentary: No rashes Neurological: Normal speech, Normal affect Laboratory Data at Discharge: WBC 4.90 thou/uL (4.3-10.9) 07/13/24 05:43 Hgb 12.8 g/dL (12.0-15.0) 07/13/24 05:43 Hct 36.7 % (36.0-45.0) 07/13/24 05:43 Plt Count 198 thou/uL (152-406) 07/13/24 05:43 Sodium 136 mEq/L (136-145) 07/13/24 05:43 Potassium 3.7 mEq/L (3.5-5.1) 07/13/24 05:43 BUN 8 mg/dL (7-18) 07/13/24 05:43 Creatinine 0.46 mg/dL (0.55-1.02) L 07/13/24 05:43 Glucose 281 mg/dL (74-106) H 07/13/24 05:43 Phosphorus 2.8 mg/dL (2.5-4.9) 07/13/24 05:43 Magnesium 2.1 mg/dL (1.6-2.4) 07/13/24 05:43 Total Bilirubin 1.2 mg/dL (0.2-1.0) H 07/11/24 15:30 AST 12 U/L (15-37) L 07/11/24 15:30 ALT 24 U/L (13-56) 07/11/24 15:30 Alkaline Phosphatase 121 U/L (45-117) H 07/11/24 15:30 Triglycerides 177 mg/dL (<150) H 07/12/24 05:00 Cholesterol 173 mg/dL (<200) 07/12/24 05:00 HDL Cholesterol 41 mg/dL (40-60) 07/12/24 05:00 Cholesterol/HDL Ratio 4.22 07/12/24 05:00 Lipase 38 U/L (13-75) 07/11/24 15:30 Home Medications: Trazodone [Desyrel*] 100 mg PO BEDTIME 07/11/24 Amlodipine [Norvasc*] 10 mg PO DAILY 07/12/24 Aripiprazole [Abilify] 5 mg PO BEDTIME 07/12/24 Insulin Glargine,Hum.rec.anlog [Lantus] 20 unit SQ BID 07/12/24 Insulin Lispro [Humalog] 60 unit SQ ACHS 07/12/24 Metformin HCl [Glucophage*] 500 mg PO BID 07/12/24 Norethindrone 0.35 mg PO BEDTIME 07/12/24 Sertraline [Zoloft*] 100 mg PO DAILY 07/12/24 Physician Discharge Instructions: Patient was admitted to the hospital for DKA, nausea and vomiting. She been unable to take her insulin as she was feeling unwell and blood sugars were elevated. On admission to the hospital blood sugar was 665 and anion gap was 19. She was treated with insulin drip and resolution in her DKA, blood sugars were persistently elevated, it was determined that patient takes between 40 and 60 units of Humalog 3 times daily in addition to 20 units of Lantus twice daily, her Humalog was resumed at 40 units with sliding scale and her blood sugars have improved. 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 She has been tolerating a diet, bicarb is 23 this morning and she is feeling much better. Diet: ADA Activity: Ad luciana Followup: NONE,NONE [Primary Care Provider] - 1-2 Weeks Time spent managing pt's care (in minutes): 49
== END 2024-07-13 12:06 | disposition home or self-care (01) | DRG 639 ==
LOC: ER 14:35 → ERHOLD 17:34 → 3RD-ICU 18:38
PROVIDERS: ADMIT Internal Medicine; ATTEND Internal Medicine
DX: E11.10 Type 2 diabetes mellitus with ketoacidosis without coma (principal); I10 Essential (primary) hypertension; G47.00 Insomnia, unspecified; T38.3X6A Underdosing of insulin and oral hypoglycemic [antidiabetic] drugs, initial encounter; Z79.4 Long term (current) use of insulin; Z11.52 Encounter for screening for COVID-19; Z91.040 Latex allergy status; Z91.148 Patient's other noncompliance with medication regimen for other reason
CPT/HCPCS: 36415; 71045; 74177; 80048; 80053; 80061; 81001; 81025; 82010; 82947; 83036; 83690; 83735; 84100; 85025; 87428; 99285; J0696; J1650; J1815; J2270; J2405; J3475; J7030; J7799; Q9967

== ENCOUNTER 2024-11-02 13:54 | Emergency (ER) | payer OTHER ==
--- OUTSIDE RECORDS SUMMARY | 2024-11-02 14:15 | XMS REPORT | Continuity of Care Document ---
Author Name Unknown Address [address] [facility] [address] [place] [address] [facility] Address [address] [facility]. 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 Specialist Name Role Phone CARLINE WILKRESON Primary Care Physician Babar Gonzalez Attending Clinician Unavailable CHRISTA DELEON Attending Clinician Unavailable Helen Royal Attending Clinician Pancho Christa CAMPOS Attending Clinician [phone] [facility]ending [facility]ician Marv Cage Jamir CAMPOS Attending Clinician + JAMIR CAGE Attending Clinician Unavail Sharona Polo RPH Attending Clinician HELEN Beal Attending Clinician Unavailable IVONE PEREZ Attending Clinician Ivone Renner CNM Attending Clinician [facility]ending Clin[facility] Unavail able Kandy, [facility] Main Attending Clinician UnavailTrini Matthews MD Attending Clinician [phone] TRINI CRENSHAW Attending Clinician TRINI Hill Attending Clinician VINCENT Trinidad Attending Clinician Unavailable Danielle, Jono - Gallo Attending Clinician Unavailable LATONYA BRONSON Attending Clinician [...] Clinician Unavailable SANDRINE SIM Attending Clinician Unavailable Ardiana Mckeon Attending Clinician Unavailable DR ALIA STRANGE Attending Clinician Unavailab THALIA Webster Attending Clinician Unavailable Lani Pitt Attending Clinician [phone] Luiz Rogers Attending Clinician [phone] Jonny Mejia Attending Clinician Unavailable Dennys Roger Attending Clinician [phone] VINCENT JORGE Admitting Clinician Unavailable LATONYA BRONSON Admitting Clinician Unavail able GC_LEH_Le_D Admitting Clinician Unavailable Carline Wilkerson Admitting Clinician Unavailable Jak Herrera Admitting Clinician [...] Date Expirati on Date Source $00 D [id number] 2022 00:00:00 MEDICARE PART A \\T\\ B [id number] 2012 00:00:00 [place] [id number] 2012 00:00:00 [facility] [id number] 00:00:00 MEDICAID GENERIC [id number] 2020 00:00:00 [facility] [id number] 2024 00:00:00 [id number] 1959 00:00:00 [facility] (MEDICAID HMO) [id number] 2021 00:00:00 Problems Condition Name Condition Details Condition Category Status Onset Date Resolution Date Last Treatment Date Treating Clinician Comments Source Essential hypertensi on Essential hypertensi on Disease Active 8-16 00:00: 00 [facility] Bipolar disorder Bipolar Disorder Problem Active 6-29 00:00: 00 [facility] Irritable bowel syndrome Irritable Bowel Syndrome Problem Active 4-04 00:00: 00 [facility] Obesity Obesity Problem Active 1- 00:00: 00 [facility] Hypertensi ve disorder Hypertensi ve Disorder Problem Active 03-19 00:00: 00 [facility] Hypersomni a with sleep apnea Hypersomni a with Sleep Apnea Problem Active 1- 00:00: 00 [facility] Sleep apnea Sleep Apnea Problem Active 1 00:00: 00 [facility] History of syncope History of Syncope Problem Active 1 00:00: 00 [facility] Hyperglyce kody Hyperglyce kody Disease Active 7 00:00: 00 [facility] Backache Backache Disease Active 09-25 00:00: 00 [facility] Type 2 diabetes mellitus without complicati on Type 2 diabetes mellitus without complicati on Disease Active 08-07 00:00: 00 [facility] History of fibrocysti c disease of breast History of fibrocysti c disease of breast Disease Active 08-07 00:00: 00 [facility] Type 2 diabetes mellitus without complicati on Type 2 diabetes mellitus without complicati on Disease Active 08-07 00:00: 00 [facility] Family history of ovarian cancer Family history of ovarian cancer Disease Active 08-07 00:00: 00 [facility] Acquired hypothyroi dism Acquired hypothyroi dism Disease Active 08-07 00:00: 00 [facility] 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 [id number] Type 2 diabetes mellitus with hyperglyce kody Problem [facility] [id number] Obesity, Class III, BMI 40-49.9 (morbid obesity) Problem [facility] Vaginal spotting Vaginal spotting Disease Resolve d 07-20 00:00: 00 2023-08-15 00:00:00 2023-08-15 14:37:41 [facility] Bleeding after intercours e Bleeding after intercours e Disease Resolve d 07-20 00:00: 00 2023-08-15 00:00:00 2023-08-15 14:37:40 [facility] Trichomona l vulvovagin itis Trichomona l vulvovagin itis Disease Resolve d 2015-03 00:00: 00 2023-08-15 00:00:00 2023-08-15 14:37:42 [facility] Chlamydia trachomati s infection of lower genitourin lizandro sites Chlamydia trachomati s infection of lower genitourin lizandro sites Disease Resolve d 08-11 00:00: 00 2023-08-15 00:00:00 2023-08-15 14:37:59 [facility] BV (bacterial vaginosis) BV (bacterial vaginosis) Disease Resolve d 08-11 00:00: 00 2023-08-15 00:00:00 2023-08-15 14:37:43 [facility] Oral contracept vanessa use Oral contracept vanessa use Disease Resolve d 08-07 00:00: 00 2023-08-15 00:00:00 2023-08-15 14:37:50 [facility] Vaginal discharge Vaginal discharge Disease Resolve d 08-07 00:00: 00 2023-08-15 00:00:00 2023-08-15 14:37:45 [facility] Soreness breast Soreness breast Disease Resolve d 08-07 00:00: 00 2023-08-15 00:00:00 2023-08-15 14:37:44 [facility] Obesity Obesity Disease Resolve d 08-07 00:00: 00 2023-08-15 00:00:00 2023-08-15 14:37:55 [facility] DKA, type 1, not at goal DKA, type 1, not at goal Disease Resolve d 10-17 00:00: 00 2020-10-18 00:00:00 2020-10-18 20:56:53 [facility] DKA, type 1, not at goal DKA, type 1, not at goal Disease Resolve d 10-17 00:00: 00 2020-10-18 00:00:00 2020-10-18 20:56:53 [facility] Allergies, Adverse Reactions, Alerts Allergy Name Allergy Type Status Severity Reaction(s) Onset Date Inactive Date Treating Clinician Comments Source latex DA Active U SWELLING 9 00:00: 00 [facility] latex DA Active U UNKNOWN 04-10 00:00: 00 [facility] No Known Allergie s DA Active U 1-05 00:00: 00 [facility] LATEX DRUG INGREDI Active Swelling 08-07 00:00: 00 [facility] Latex Propensi ty to adverse reaction s Active Swelling 08-07 00:00: 00 Blisters [facility] Latex Allergy to substanc e Active [facility] latex DA Active Unknown [facility] (LUF/LI V/SA) No Known Allergie s DA Active [facility] (LUF/LI V/SA) Social History Social Habit Start Date Stop Date Quantity Comments Source ASSERTION Not [facility] of Tobacco Use [facility] Sex Assigned At [facility] Alcoholic beverage intake 2024-08-13 00:00:00 2024-08-13 00:00:00 Ex-drinker (finding) [facility] History of Social function 2024-04-24 00:00:00 2024-04-24 00:00:00 [facility] Tobacco use and exposure 2023-08-17 00:00:00 2023-08-17 00:00:00 Smokeless tobacco non-user [facility] Smoking Status Start Date Stop Date Source Never smoked tobacco [facility] Medications Ordered Medication Name Filled Medication Name Start Date Stop Date Current Medication? Ordering Clinician Indication Dosage Frequency Signature (SIG) Comments Components Source metroNIDAZO LE 500 mg tablet 08-14 00:00: 00 Yes [id number] 500mg Take 1 tablet by mouth in the morning and 1 tablet in the evening. [facility] norethindro ne 0.35 mg tablet 08-13 00:00: 00 Yes [id number] 1{tbl} Take 1 tablet by mouth in the morning. [facility] terconazole 80 mg vaginal suppository 08-13 00:00: 00 Yes [id number] 80mg Insert 1 Suppositor y into vagina at bedtime. [facility] Insulin Glargine (LANTUS SOLOSTAR U-100 INSULIN) 100 unit/mL (3 mL) injection [id number] 5-05 00:00: 00 Yes [id number] 32U inject 32 Units under the skin at bedtime. For Lantus: take HALF dose if or if blood glucose 80 - 120 mg/dL, HOLD if less than 80. ANY FURTHER REFILLS WILL BE GIVEN AT NEXT APPOINTMEN T. [facility] insulin lispro (HUMALOG KWIKPEN INSULIN) 100 unit/mL pen injector insulin lispro (HUMALOG KWIKPEN INSULIN) 100 unit/mL pen injector 07-16 00:00: 00 Yes [id number] Take 8 units with each meal (patient eats 4 meals a day). For Lispro: Give half dose if patient eats less than half meal OR if blood glucose 80 - 120 mg/dL, HOLD DOSE if BG < 80 . ANY FURTHER REFILLS WILL BE GIVEN AT NEXT APPOINTMEN T. [facility] metFORMIN 500 mg tablet metFORMIN 500 mg tablet 07-16 00:00: 00 Yes [id number] 500mg Take 1 tablet by mouth in the morning and 1 tablet in the evening. Take with meals. ANY FURTHER REFILLS WILL BE GIVEN AT NEXT APPOINTMEN T. [facility] semaglutide (OZEMPIC) 1 mg/dose (4 mg/3 mL) PnIj [id number] 07-16 00:00: 00 Yes [id number] 1mg inject 1 mg under the skin weekly. ANY FURTHER REFILLS WILL BE GIVEN AT NEXT APPOINTMEN T. [facility] norethindro ne 0.35 mg tablet 05-09 00:00: 00 08-13 00:00 :00 No [id number] 1{tbl} Take 1 tablet by mouth in the morning. [facility] terconazole 80 mg vaginal suppository -12 00:00: 00 04-29 05:59 :00 No [id number] 80mg Insert 1 Suppositor y into vagina at bedtime for 3 days. [facility] Insulin Glargine (LANTUS SOLOSTAR U-100 INSULIN) 100 unit/mL (3 mL) injection [id number] 1-09 00:00: 00 07-16 00:00 :00 No [id number] 32U inject 32 Units under the skin at bedtime. For Lantus: take HALF dose if or if blood glucose 80 - 120 mg/dL, HOLD if less than 80. [facility] insulin lispro (HUMALOG KWIKPEN INSULIN) 100 unit/mL pen injector insulin lispro (HUMALOG KWIKPEN INSULIN) 100 unit/mL pen injector - 00:00: 00 07-16 00:00 :00 No [id number] Take 8 units with each meal (patient eats 4 meals a day) [facility] semaglutide (OZEMPIC) 1 mg/dose (4 mg/3 mL) PnIj 2023-04-04 11:09: 04 02-02 00:00 :00 No INJECT 1 MG Subcutaneo us weekly for 28 days [facility] dexAMETHaso ne 1 mg tablet 2023-03 00:00: 00 Yes [id number] Take 1 tab at 11 Pm and come in for blood tests at 8 am next morning [facility] amLODIPine 10 mg tablet amLODIPine 10 mg tablet 2023-03 00:00: 00 Yes [id number] 10mg Take 1 tablet by mouth in the morning. [facility] losartan 50 mg tablet losartan 50 mg tablet 2023-03 00:00: 00 Yes [id number] 50mg Take 1 tablet by mouth in the morning. [facility] semaglutide (OZEMPIC) 2 mg/dose (8 mg/3 mL) PnIj [id number] 2023-03 00:00: 00 07-16 00:00 :00 No [id number] 2mg inject 2 mg under the skin weekly. [facility] metFORMIN 500 mg tablet metFORMIN 500 mg tablet 2023-03 00:00: 00 07-16 00:00 :00 No [id number] 500mg Take 1 tablet by mouth in the morning and 1 tablet in the evening. Take with meals. [facility] Insulin Glargine (LANTUS SOLOSTAR U-100 INSULIN) 100 unit/mL (3 mL) injection 2023-03 00:00: 00 03-22 00:00 :00 No [id number] 15U inject 15 Units under the skin at bedtime. For Lantus: take HALF dose if or if blood glucose 80 - 120 mg/dL, HOLD if less than 80. [facility] insulin lispro (HUMALOG KWIKPEN INSULIN) 100 unit/mL pen injector 2023-03 00:00: 00 03-22 00:00 :00 No [id number] 9U inject 9 Units under the skin in the morning and 9 Units at noon and 9 Units in the evening. inject before meals. Give half dose if patient eats less than half meal OR if blood glucose 80 - 120 mg/dL, HOLD DOSE if or BG < 80 [facility] ampicillin 500 mg capsule 2023-03 00:00: 00 02-02 00:00 :00 No [id number] 500mg Take 1 capsule by mouth every 6 (six) hours. [facility] fluconazole (DIFLUCAN) 150 mg tablet 2023-03 1-05 00:00: 00 02-02 00:00 :00 No [id number] 150mg Take 1 tablet by mouth in the morning. [facility] insulin lispro (HUMALOG KWIKPEN INSULIN) 100 unit/mL pen injector 2023-03 1-05 00:00: 00 02-02 00:00 :00 No [id number] 9U inject 9 Units under the skin in the morning and 9 Units at noon and 9 Units in the evening. inject before meals. Give half dose if patient eats less than half meal OR if blood glucose 80 - 120 mg/dL, HOLD DOSE if or BG < 80 [facility] traZODone 100 mg tablet 2023-03 0-29 00:00: 00 Yes TAKE 1 TABLET BY MOUTH ONCE DAILY AT BEDTIME NEEDED [facility] semaglutide (OZEMPIC) 2 mg/dose (8 mg/3 mL) PnIj 9-27 00:00: 00 02-02 00:00 :00 No 2mg inject 2 mg under the skin weekly. [facility] Insulin Glargine (LANTUS SOLOSTAR U-100 INSULIN) 100 unit/mL (3 mL) injection 817 00:00: 00 02-02 00:00 :00 No [id number] 15U inject 15 Units under the skin at bedtime. For Lantus: take HALF dose if or if blood glucose 80 - 120 mg/dL, HOLD if less than 80. [facility] Blood-Gluco se Sensor (FREESTYLE CURT 3 SENSOR) Jenna 816 00:00: 00 Yes [id number] Use as directed every 2 weeks [facility] Blood-Gluco se Meter,Chelsey sara (FREESTYLE CURT 3 READER) Misc 816 00:00: 00 Yes [id number] Use as directed [facility] Blood-Gluco se Sensor (FREESTYLE CURT 3 SENSOR) Jenna 10-27 00:00: 00 Yes [id number] Use as directed every 2 weeks [facility] Blood-Gluco se Meter,Chelsey sara (FREESTYLE CURT 3 READER) [facility] 10-27 00:00: 00 Yes [id number] Use as directed [facility] insulin lispro (HUMALOG KWIKPEN INSULIN) 200 unit/mL (3 mL) In 10-27 00:00: 00 01-16 00:00 :00 No [id number] 9U inject 9 Units under the skin in the morning and 9 Units at noon and 9 Units in the evening. inject before meals. Give half dose if patient eats less than half meal OR if blood glucose 80 - 120 mg/dL, HOLD DOSE if or BG < 80 . [facility] semaglutide (OZEMPIC) 1 mg/dose (4 mg/3 mL) [facility] 10-27 00:00: 00 12-08 00:00 :00 No [id number] 1mg inject 1 mg under the skin weekly. [facility] Insulin Glargine (LANTUS SOLOSTAR U-100 INSULIN) 100 unit/mL (3 mL) injection 10-27 00:00: 00 10-28 00:00 :00 No [id number] 15U inject 15 Units under the skin in the morning. For Lantus: take HALF dose if or if blood glucose 80 - 120 mg/dL, HOLD if less than 80. [facility] HUMALOG KWIKPEN INSULIN 200 unit/mL (3 mL) [facility] 10-23 00:00: 00 10-27 00:00 :00 No INJECT 60 UNITS SUBCUTANEO USLY THREE TIMES DAILY WITH A MEAL [facility] OZEMPIC 1 mg/dose (4 mg/3 mL) [facility] 10-20 00:00: 00 10-27 00:00 :00 No INJECT 1 MG SUBCUTANEO USLY ONCE A WEEK [facility] SERTraline 100 mg tablet 10-17 00:00: 00 Yes 100mg Take 1 tablet by mouth every morning. [facility] ARIPiprazol e 5 mg tablet 806 00:00: 00 Yes 5mg Take 1 tablet by mouth at bedtime. [facility] amLODIPine 10 mg tablet 10-04 00:00: 00 02-02 00:00 :00 No 10mg Take 1 tablet by mouth in the morning. [facility] losartan 50 mg tablet 10-04 00:00: 00 02-02 00:00 :00 No 50mg Take 1 tablet by mouth in the morning. [facility] metFORMIN HCl 1000 MG metFORMIN HCl 1000 MG 10-03 00:00: 00 No 1{table t_with_ a_meal} BID metFORMIN HCl 1000 MG metFORMIN 500 mg tablet 09-04 00:00: 00 02-02 00:00 :00 No [id number] 500mg Take 1 tablet by mouth in the morning and 1 tablet in the evening. Take with meals. [facility] fluconazole 150 mg tablet 09-04 00:00: 00 02-02 00:00 :00 No [id number] Take one tablet PO today, then repeat in 72 hours [facility] quetiapine fumarate (SEROQUEL ORAL) 6 13:55: 26 Yes Take by mouth. [facility] losartan 25 mg tablet 22 00:00: 00 10-27 00:00 :00 No [facility] lidocaine 0.05 MG/MG Medicated Patch lidocaine 0.05 MG/MG Medicated Patch 10-02 23:48: 10 No 1 topically per package directions as needed. (leave on most painful area for up to 12 hrs) [facility] (LUF/LI V/SA) metronidazo le 0.013 MG/MG Vaginal Gel metronidazo le 0.013 MG/MG Vaginal Gel 509 21:12: 57 No 1 vaginally once (as a single dose at bedtime) [facility] (LUF/LI V/SA) insulin, regular, human 500 UNT/ML Injectable Solution insulin, regular, human 500 UNT/ML Injectable Solution 06-21 20:41: 02 No .8 1xD via continuous subcutaneo us infusion daily [facility] (LUF/LI V/SA) ondansetron 4 mg disintegrat ing tablet ondansetron 4 mg disintegrat ing tablet 06-14 16:37: 48 No Nausea and vomiting 4mg 3xD orally every 8 hours for Nausea and Nausea and vomiting as needed. (Nausea/Vo miting) [facility] (LUF/LI V/SA) cephalexin 500 mg capsule cephalexin 500 mg capsule 03-27 15:40: 31 No 500mg 3xD [facility] V/SA) clotrimazol e 20 MG/ML Vaginal Cream clotrimazol e 20 MG/ML Vaginal Cream 03-27 15:40: 30 No 1 vaginally every day at bedtime (for 3 days) [facility] betamethaso ne 0.5 MG/ML / clotrimazol e 10 MG/ML Topical Cream betamethaso ne 0.5 MG/ML / clotrimazol e 10 MG/ML Topical Cream 03-27 15:40: 29 No 1 2xD topically 2 times per day (for 2 weeks, apply to vulva and perineum) [facility] (LUF/LI V/SA) fluconazole 200 MG Oral Tablet fluconazole 200 MG Oral Tablet 03-27 15:40: 28 No 200mg 1xD orally daily [facility] (LUF/LI V/SA) hydroxyzine hydrochlori de 25 MG Oral Tablet hydroxyzine hydrochlori de 25 MG Oral Tablet 03-27 15:40: 27 No itching 25mg Q7.00H orally 3 to 4 times per day for itching as needed. (as needed for itching) [facility] tramadol hydrochlori de 50 [...] FUL VAGINALLY ONCE DAILY FOR 7 DAYS [facility] trazodone 300 mg tablet TAKE 1 TABLET BY MOUTH ONCE DAILY AT BEDTIME trazodone 300 mg tablet TAKE 1 TABLET BY MOUTH ONCE DAILY AT BEDTIME No trazodone 300 mg tablet TAKE 1 TABLET BY MOUTH ONCE DAILY AT BEDTIME [facility] armodafinil 150 mg tablet Take 1 tablet every day by oral route for 30 days. armodafinil 150 mg tablet Take 1 tablet every day by oral route for 30 days. No armodafini l 150 mg tablet Take 1 tablet every day by oral route for 30 days. [facility] azelaic acid 15 % topical gel [...] BY TOPICAL ROUTE 2 TIMES PER DAY [facility] azithromyci n 500 mg tablet TAKE 1 TABLET BY MOUTH ONCE DAILY azithromyci n 500 mg tablet TAKE 1 TABLET BY MOUTH ONCE DAILY No azithromyc in 500 mg tablet TAKE 1 TABLET BY MOUTH ONCE DAILY [facility] benzonatate 100 mg capsule TAKE 1 CAPSULE BY MOUTH EVERY 4 HOURS NEEDED benzonatate 100 mg capsule TAKE 1 CAPSULE BY MOUTH EVERY 4 HOURS NEEDED No benzonatat e 100 mg capsule TAKE 1 CAPSULE BY MOUTH EVERY 4 HOURS NEEDED [facility] Bydureon BCise 2 mg/0.85 mL subcutaneou s auto-inject or Inject 2 mg every week by subcutaneou s route. Bydureon BCise 2 mg/0.85 mL subcutaneou s auto-inject or Inject 2 mg every week by subcutaneou s route. No 2mg Q1W Bydureon BCise 2 mg/0.85 mL subcutaneo us auto-injec tor Inject 2 mg every week by subcutaneo us route. [facility] ceftriaxone 1 gram solution for injection Take 1 g by injection route. ceftriaxone 1 gram solution for injection Take 1 g by injection route. No 1g ceftriaxon e 1 gram solution for injection Take 1 g by injection route. [facility] cetirizine 10 mg tablet Take 1 tablet every day by oral route. cetirizine 10 mg tablet Take 1 tablet every day by oral route. No 1 Q1D cetirizine 10 mg tablet Take 1 tablet every day by oral route. [facility] Cipro 500 mg tablet Take 1 tablet every 12 hours by oral route for 7 days. Cipro 500 mg tablet Take 1 tablet every 12 hours by oral route for 7 days. No 1 Q12H Cipro 500 mg tablet Take 1 tablet every 12 hours by oral route for 7 days. [facility] Flonase Allergy Relief 50 mcg/actuati on nasal spray,suspe nsion [place] 1 spray every day by intranasal route. Flonase Allergy Relief 50 mcg/actuati on nasal spray,suspe nsion [place] 1 spray every day by intranasal route. No 1spray( s) Q1D Flonase Allergy Relief 50 mcg/actuat ion nasal spray,susp ension [place] 1 spray every day by intranasal route. [facility] glimepiride 4 mg tablet Take 1 tablet every day by oral route. glimepiride 4 mg tablet Take 1 tablet every day by oral route. No 1 Q1D glimepirid e 4 mg tablet Take 1 tablet every day by oral route. [facility] Humulin R Regular U-100 Insuln Humulin R Regular U-100 Insuln No Humulin R Regular U-100 Insuln [facility] hyoscyamine 0.125 mg sublingual tablet DISSOLVE 1 TABLET IN MOUTH 4 TIMES DAILY hyoscyamine 0.125 mg sublingual tablet DISSOLVE 1 TABLET IN MOUTH 4 TIMES DAILY No hyoscyamin e 0.125 mg sublingual tablet DISSOLVE 1 TABLET IN MOUTH 4 TIMES DAILY [facility] Latuda 20 mg tablet Take 1 tablet every day by oral route. Latuda 20 mg tablet Take 1 tablet every day by oral route. No 1 Q1D Latuda 20 mg tablet Take 1 tablet every day by oral route. [facility] Latuda 60 mg tablet Take 1 tablet every day by oral route. Latuda 60 mg tablet Take 1 tablet every day by oral route. No 1 Q1D Latuda 60 mg tablet Take 1 tablet every day by oral route. [facility] lithium carbonate ER 450 mg tablet,exte nded release Take 1 tablet every day by oral route. lithium carbonate ER 450 mg tablet,exte nded release Take 1 tablet every day by oral route. No 1 Q1D lithium carbonate ER 450 mg tablet,ext ended release Take 1 tablet every day by oral route. [facility] metformin 500 mg tablet Take 2 tablets twice a day by oral route. metformin 500 mg tablet Take 2 tablets twice a day by oral route. No 2 BID metformin 500 mg tablet Take 2 tablets twice a day by oral route. [facility] metronidazo le 0.75 % topical gel APPLY [...] PER DAY IN THE MORNING AND EVENING [facility] ondansetron 8 mg disintegrat ing tablet Place 1 tablet twice a day by translingua l route as needed. ondansetron 8 mg disintegrat ing tablet Place 1 tablet twice a day by translingua l route as needed. No 1 BID ondansetro n 8 mg disintegra ting tablet Place 1 tablet twice a day by translingu al route as needed. [facility] terconazole 0.4 % vaginal cream INSERT 1 APPLICATORF UL VAGINALLY ONCE DAILY FOR 7 DAYS terconazole 0.4 % vaginal cream INSERT 1 APPLICATORF UL VAGINALLY ONCE DAILY FOR 7 DAYS No terconazol e 0.4 % vaginal cream INSERT 1 APPLICATOR FUL VAGINALLY ONCE DAILY FOR 7 DAYS [facility] trazodone 100 mg tablet TAKE 3 TABLETS BY MOUTH ONCE DAILY AT BEDTIME trazodone 100 mg tablet TAKE 3 TABLETS BY MOUTH ONCE DAILY AT BEDTIME No trazodone 100 mg tablet TAKE 3 TABLETS BY MOUTH ONCE DAILY AT BEDTIME [facility] trazodone 300 mg tablet TAKE 1 TABLET BY MOUTH ONCE DAILY AT BEDTIME trazodone 300 mg tablet TAKE 1 TABLET BY MOUTH ONCE DAILY AT BEDTIME No trazodone 300 mg tablet TAKE 1 TABLET BY MOUTH ONCE DAILY AT BEDTIME [facility] albuterol sulfate HFA 90 mcg/actuati on aerosol inhaler Inhale 2 puffs every 4-6 hours by inhalation route as needed. albuterol sulfate HFA 90 mcg/actuati on aerosol inhaler Inhale 2 puffs every 4-6 hours by inhalation route as needed. No 2puff(s ) Q5H albuterol sulfate HFA 90 mcg/actuat ion aerosol inhaler Inhale 2 puffs every 4-6 hours by inhalation route as needed. [facility] armodafinil 150 mg tablet Take 1 tablet every day by oral route for 30 days. armodafinil 150 mg tablet Take 1 tablet every day by oral route for 30 days. No armodafini l 150 mg tablet Take 1 tablet every day by oral route for 30 days. [facility] azelaic acid 15 % topical gel APPLY [...] BY TOPICAL ROUTE 2 TIMES PER DAY [facility] azithromyci n 500 mg tablet TAKE 1 TABLET BY MOUTH ONCE DAILY azithromyci n 500 mg tablet TAKE 1 TABLET BY MOUTH ONCE DAILY No azithromyc in 500 mg tablet TAKE 1 TABLET BY MOUTH ONCE DAILY [facility] benzonatate 100 mg capsule TAKE 1 CAPSULE BY MOUTH EVERY 4 HOURS NEEDED benzonatate 100 mg capsule TAKE 1 CAPSULE BY MOUTH EVERY 4 HOURS NEEDED No benzonatat e 100 mg capsule TAKE 1 CAPSULE BY MOUTH EVERY 4 HOURS NEEDED [facility] bupropion HCl XL 150 mg 24 hr tablet, extended release bupropion HCl XL 150 mg 24 hr tablet, extended release No bupropion HCl XL 150 mg 24 hr tablet, extended release [facility] Bydureon BCise 2 mg/0.85 mL subcutaneou s auto-inject or Inject 2 mg every week by subcutaneou s route. Bydureon BCise 2 mg/0.85 mL subcutaneou s auto-inject or Inject 2 mg every week by subcutaneou s route. No 2mg Q1W Bydureon BCise 2 mg/0.85 mL subcutaneo us auto-injec tor Inject 2 mg every week by subcutaneo us route. [facility] ceftriaxone 1 gram solution for injection Take 1 g by injection route. ceftriaxone 1 gram solution for injection Take 1 g by injection route. No 1g ceftriaxon e 1 gram solution for injection Take 1 g by injection route. [facility] cetirizine 10 mg tablet Take 1 tablet every day by oral route. cetirizine 10 mg tablet Take 1 tablet every day by oral route. No cetirizine 10 mg tablet Take 1 tablet every day by oral route. [facility] ciprofloxac in 500 mg tablet Take 1 tablet every 12 hours by oral route for 7 days. ciprofloxac in 500 mg tablet Take 1 tablet every 12 hours by oral route for 7 days. No ciprofloxa john 500 mg tablet Take 1 tablet every 12 hours by oral route for 7 days. [facility] fluconazole 200 mg tablet TAKE 1 TABLET BY MOUTH ONCE DAILY FOR 3 DAYS fluconazole 200 mg tablet TAKE 1 TABLET BY MOUTH ONCE DAILY FOR 3 DAYS No fluconazol e 200 mg tablet TAKE 1 TABLET BY MOUTH ONCE DAILY FOR 3 DAYS [facility] fluticasone propionate 50 mcg/actuati on nasal spray,suspe nsion [place] 1 spray every day by intranasal route. fluticasone propionate 50 mcg/actuati on nasal spray,suspe nsion [place] 1 spray every day by intranasal route. No fluticason e propionate 50 mcg/actuat ion nasal spray,susp ension [place] 1 spray every day by intranasal route. [facility] glimepiride 4 mg tablet Take 1 tablet every day by oral route. glimepiride 4 mg tablet Take 1 tablet every day by oral route. No 1 Q1D glimepirid e 4 mg tablet Take 1 tablet every day by oral route. [facility] Humulin R Regular U-100 Insuln Humulin R Regular U-100 Insuln No Humulin R Regular U-100 Insuln [facility] hyoscyamine 0.125 mg sublingual tablet DISSOLVE 1 TABLET IN MOUTH 4 TIMES DAILY hyoscyamine 0.125 mg sublingual tablet DISSOLVE 1 TABLET IN MOUTH 4 TIMES DAILY No hyoscyamin e 0.125 mg sublingual tablet DISSOLVE 1 TABLET IN MOUTH 4 TIMES DAILY [facility] Latuda 20 mg tablet Take 1 tablet every day by oral route. Latuda 20 mg tablet Take 1 tablet every day by oral route. No Latuda 20 mg tablet Take 1 tablet every day by oral route. [facility] Latuda 60 mg tablet Take 1 tablet every day by oral route. Latuda 60 mg tablet Take 1 tablet every day by oral route. No Latuda 60 mg tablet Take 1 tablet every day by oral route. [facility] Lidocaine Viscous 2 % mucosal solution Lidocaine Viscous 2 % mucosal solution No Lidocaine Viscous 2 % mucosal solution [facility] lithium carbonate ER 450 mg tablet,exte nded release Take 1 tablet every day by oral route. lithium carbonate ER 450 mg tablet,exte nded release Take 1 tablet every day by oral route. No 1 Q1D lithium carbonate ER 450 mg tablet,ext ended release Take 1 tablet every day by oral route. [facility] metformin 500 mg tablet Take 2 tablets twice a day by oral route. metformin 500 mg tablet Take 2 tablets twice a day by oral route. No 2 BID metformin 500 mg tablet Take 2 tablets twice a day by oral route. [facility] metronidazo le 0.75 % topical gel APPLY [...] PER DAY IN THE MORNING AND EVENING [facility] metronidazo le 500 mg tablet TAKE 4 TABLETS BY MOUTH DIRECTED AT ONCE metronidazo le 500 mg tablet TAKE 4 TABLETS BY MOUTH DIRECTED AT ONCE No metronidaz ole 500 mg tablet TAKE 4 TABLETS BY MOUTH DIRECTED AT ONCE [facility] ondansetron 8 mg disintegrat ing tablet Place 1 tablet twice a day by translingua l route as needed. ondansetron 8 mg disintegrat ing tablet Place 1 tablet twice a day by translingua l route as needed. No ondansetro n 8 mg disintegra ting tablet Place 1 tablet twice a day by translingu al route as needed. [facility] terconazole 0.4 % vaginal cream INSERT 1 APPLICATORF UL VAGINALLY ONCE DAILY FOR 7 DAYS terconazole 0.4 % vaginal cream INSERT 1 APPLICATORF UL VAGINALLY ONCE DAILY FOR 7 DAYS No terconazol e 0.4 % vaginal cream INSERT 1 APPLICATOR FUL VAGINALLY ONCE DAILY FOR 7 DAYS [facility] trazodone 100 mg tablet TAKE 3 TABLETS BY MOUTH ONCE DAILY AT BEDTIME trazodone 100 mg tablet TAKE 3 TABLETS BY MOUTH ONCE DAILY AT BEDTIME No trazodone 100 mg tablet TAKE 3 TABLETS BY MOUTH ONCE DAILY AT BEDTIME [facility] trazodone 300 mg tablet TAKE 1 TABLET BY MOUTH ONCE DAILY AT BEDTIME trazodone 300 mg tablet TAKE 1 TABLET BY MOUTH ONCE DAILY AT BEDTIME No trazodone 300 mg tablet TAKE 1 TABLET BY MOUTH ONCE DAILY AT BEDTIME [facility] armodafinil 150 mg tablet Take 1 tablet every day by oral route for 30 days. armodafinil 150 mg tablet Take 1 tablet every day by oral route for 30 days. No armodafini l 150 mg tablet Take 1 tablet every day by oral route for 30 days. [facility] azelaic acid 15 % topical gel APPLY [...] BY TOPICAL ROUTE 2 TIMES PER DAY [facility] azithromyci n 500 mg tablet TAKE 1 TABLET BY MOUTH ONCE DAILY azithromyci n 500 mg tablet TAKE 1 TABLET BY MOUTH ONCE DAILY No azithromyc in 500 mg tablet TAKE 1 TABLET BY MOUTH ONCE DAILY [facility] benzonatate 100 mg capsule TAKE 1 CAPSULE BY MOUTH EVERY 4 HOURS NEEDED benzonatate 100 mg capsule TAKE 1 CAPSULE BY MOUTH EVERY 4 HOURS NEEDED No benzonatat e 100 mg capsule TAKE 1 CAPSULE BY MOUTH EVERY 4 HOURS NEEDED [facility] bupropion HCl XL 150 mg 24 hr tablet, extended release bupropion HCl XL 150 mg 24 hr tablet, extended release No bupropion HCl XL 150 mg 24 hr tablet, extended release [facility] Bydureon BCise 2 mg/0.85 mL subcutaneou s auto-inject or Inject 2 mg every week by subcutaneou s route. Bydureon BCise 2 mg/0.85 mL subcutaneou s auto-inject or Inject 2 mg every week by subcutaneou s route. No 2mg Q1W Bydureon BCise 2 mg/0.85 mL subcutaneo us auto-injec tor Inject 2 mg every week by subcutaneo us route. [facility] ceftriaxone 1 gram solution for injection Take 1 g by injection route. ceftriaxone 1 gram solution for injection Take 1 g by injection route. No 1g ceftriaxon e 1 gram solution for injection Take 1 g by injection route. [facility] cetirizine 10 mg tablet Take 1 tablet every day by oral route. cetirizine 10 mg tablet Take 1 tablet every day by oral route. No cetirizine 10 mg tablet Take 1 tablet every day by oral route. [facility] ciprofloxac in 500 mg tablet Take 1 tablet every 12 hours by oral route for 7 days. ciprofloxac in 500 mg tablet Take 1 tablet every 12 hours by oral route for 7 days. No ciprofloxa john 500 mg tablet Take 1 tablet every 12 hours by oral route for 7 days. [facility] fluconazole 150 mg tablet TAKE 1 TABLET BY MOUTH ONCE DAILY FOR 7 DAYS fluconazole 150 mg tablet TAKE 1 TABLET BY MOUTH ONCE DAILY FOR 7 DAYS No fluconazol e 150 mg tablet TAKE 1 TABLET BY MOUTH ONCE DAILY FOR 7 DAYS [facility] fluconazole 200 mg tablet TAKE 1 TABLET BY MOUTH ONCE DAILY FOR 3 DAYS fluconazole 200 mg tablet TAKE 1 TABLET BY MOUTH ONCE DAILY FOR 3 DAYS No fluconazol e 200 mg tablet TAKE 1 TABLET BY MOUTH ONCE DAILY FOR 3 DAYS [facility] fluticasone propionate 50 mcg/actuati on nasal spray,suspe nsion [place] 1 spray every day by intranasal route. fluticasone propionate 50 mcg/actuati on nasal spray,suspe nsion [place] 1 spray every day by intranasal route. No fluticason e propionate 50 mcg/actuat ion nasal spray,susp ension [place] 1 spray every day by intranasal route. [facility] glimepiride 4 mg tablet Take 1 tablet every day by oral route. glimepiride 4 mg tablet Take 1 tablet every day by oral route. No 1 Q1D glimepirid e 4 mg tablet Take 1 tablet every day by oral route. [facility] Humulin R Regular U-100 Insuln Humulin R Regular U-100 Insuln No Humulin R Regular U-100 Insuln [facility] hyoscyamine 0.125 mg sublingual tablet DISSOLVE 1 TABLET IN MOUTH 4 TIMES DAILY hyoscyamine 0.125 mg sublingual tablet DISSOLVE 1 TABLET IN MOUTH 4 TIMES DAILY No hyoscyamin e 0.125 mg sublingual tablet DISSOLVE 1 TABLET IN MOUTH 4 TIMES DAILY [facility] Latuda 20 mg tablet Take 1 tablet every day by oral route. Latuda 20 mg tablet Take 1 tablet every day by oral route. No 1 Q1D Latuda 20 mg tablet Take 1 tablet every day by oral route. [facility] Latuda 60 mg tablet Take 1 tablet every day by oral route. Latuda 60 mg tablet Take 1 tablet every day by oral route. No Latuda 60 mg tablet Take 1 tablet every day by oral route. [facility] Lidocaine Viscous 2 % mucosal solution Lidocaine Viscous 2 % mucosal solution No Lidocaine Viscous 2 % mucosal solution [facility] lisinopril 10 mg tablet Take 1 tablet every day by oral route. lisinopril 10 mg tablet Take 1 tablet every day by oral route. No 1 Q1D lisinopril 10 mg tablet Take 1 tablet every day by oral route. [facility] lithium carbonate ER 450 mg tablet,exte nded release Take 1 tablet every day by oral route. lithium carbonate ER 450 mg tablet,exte nded release Take 1 tablet every day by oral route. No 1 Q1D lithium carbonate ER 450 mg tablet,ext ended release Take 1 tablet every day by oral route. [facility] metformin 500 mg tablet Take 2 tablets twice a day by oral route. metformin 500 mg tablet Take 2 tablets twice a day by oral route. No 2 BID metformin 500 mg tablet Take 2 tablets twice a day by oral route. [facility] metronidazo le 0.75 % topical gel [...] PER DAY IN THE MORNING AND EVENING [facility] metronidazo le 500 mg tablet TAKE 4 TABLETS BY MOUTH DIRECTED AT ONCE metronidazo le 500 mg tablet TAKE 4 TABLETS BY MOUTH DIRECTED AT ONCE No metronidaz ole 500 mg tablet TAKE 4 TABLETS BY MOUTH DIRECTED AT ONCE [facility] ondansetron 8 mg disintegrat ing tablet Place 1 tablet twice a day by translingua l route as needed. ondansetron 8 mg disintegrat ing tablet Place 1 tablet twice a day by translingua l route as needed. No ondansetro n 8 mg disintegra ting tablet Place 1 tablet twice a day by translingu al route as needed. [facility] sulfamethox azole 800 mg-trimetho prim 160 mg tablet sulfamethox azole 800 mg-trimetho prim 160 mg tablet No sulfametho xazole 800 mg-trimeth oprim 160 mg tablet [facility] terconazole 0.4 % vaginal cream INSERT 1 APPLICATORF UL VAGINALLY ONCE DAILY FOR 7 DAYS terconazole 0.4 % vaginal cream INSERT 1 APPLICATORF UL VAGINALLY ONCE DAILY FOR 7 DAYS No terconazol e 0.4 % vaginal cream INSERT 1 APPLICATOR FUL VAGINALLY ONCE DAILY FOR 7 DAYS [facility] trazodone 100 mg tablet TAKE 3 TABLETS BY MOUTH ONCE DAILY AT BEDTIME trazodone 100 mg tablet TAKE 3 TABLETS BY MOUTH ONCE DAILY AT BEDTIME No trazodone 100 mg tablet TAKE 3 TABLETS BY MOUTH ONCE DAILY AT BEDTIME [facility] trazodone 300 mg tablet TAKE 1 TABLET BY MOUTH ONCE DAILY AT BEDTIME trazodone 300 mg tablet TAKE 1 TABLET BY MOUTH ONCE DAILY AT BEDTIME No trazodone 300 mg tablet TAKE 1 TABLET BY MOUTH ONCE DAILY AT BEDTIME [facility] Ventolin HFA 90 mcg/actuati on aerosol inhaler Inhale 2 puffs every 4-6 hours by inhalation route as needed. Ventolin HFA 90 mcg/actuati on aerosol inhaler Inhale 2 puffs every 4-6 hours by inhalation route as needed. No Ventolin HFA 90 mcg/actuat ion aerosol inhaler Inhale 2 puffs every 4-6 hours by inhalation route as needed. [facility] armodafinil 150 mg tablet Take 1 tablet every day by oral route for 30 days. armodafinil 150 mg tablet Take 1 tablet every day by oral route for 30 days. No armodafini l 150 mg tablet Take 1 tablet every day by oral route for 30 days. [facility] azelaic acid 15 % topical gel [...] BY TOPICAL ROUTE 2 TIMES PER DAY [facility] azithromyci n 500 mg tablet TAKE 1 TABLET BY MOUTH ONCE DAILY azithromyci n 500 mg tablet TAKE 1 TABLET BY MOUTH ONCE DAILY No azithromyc in 500 mg tablet TAKE 1 TABLET BY MOUTH ONCE DAILY [facility] benzonatate 100 mg capsule TAKE 1 CAPSULE BY MOUTH EVERY 4 HOURS NEEDED benzonatate 100 mg capsule TAKE 1 CAPSULE BY MOUTH EVERY 4 HOURS NEEDED No benzonatat e 100 mg capsule TAKE 1 CAPSULE BY MOUTH EVERY 4 HOURS NEEDED [facility] bupropion HCl XL 150 mg 24 hr tablet, extended release bupropion HCl XL 150 mg 24 hr tablet, extended release No bupropion HCl XL 150 mg 24 hr tablet, extended release [facility] Bydureon BCise 2 mg/0.85 mL subcutaneou s auto-inject or Inject 2 mg every week by subcutaneou s route. Bydureon BCise 2 mg/0.85 mL subcutaneou s auto-inject or Inject 2 mg every week by subcutaneou s route. No 2mg Q1W Bydureon BCise 2 mg/0.85 mL subcutaneo us auto-injec tor Inject 2 mg every week by subcutaneo us route. [facility] ceftriaxone 1 gram solution for injection Take 1 g by injection route. ceftriaxone 1 gram solution for injection Take 1 g by injection route. No 1g ceftriaxon e 1 gram solution for injection Take 1 g by injection route. [facility] cetirizine 10 mg tablet Take 1 tablet every day by oral route. cetirizine 10 mg tablet Take 1 tablet every day by oral route. No cetirizine 10 mg tablet Take 1 tablet every day by oral route. [facility] ciprofloxac in 500 mg tablet Take 1 tablet every 12 hours by oral route for 7 days. ciprofloxac in 500 mg tablet Take 1 tablet every 12 hours by oral route for 7 days. No ciprofloxa john 500 mg tablet Take 1 tablet every 12 hours by oral route for 7 days. [facility] fluconazole 150 mg tablet TAKE 1 TABLET BY MOUTH ONCE DAILY FOR 7 DAYS fluconazole 150 mg tablet TAKE 1 TABLET BY MOUTH ONCE DAILY FOR 7 DAYS No fluconazol e 150 mg tablet TAKE 1 TABLET BY MOUTH ONCE DAILY FOR 7 DAYS [facility] fluconazole 200 mg tablet TAKE 1 TABLET BY MOUTH ONCE DAILY FOR 3 DAYS fluconazole 200 mg tablet TAKE 1 TABLET BY MOUTH ONCE DAILY FOR 3 DAYS No fluconazol e 200 mg tablet TAKE 1 TABLET BY MOUTH ONCE DAILY FOR 3 DAYS [facility] fluticasone propionate 50 mcg/actuati on nasal spray,suspe nsion [place] 1 spray every day by intranasal route. fluticasone propionate 50 mcg/actuati on nasal spray,suspe nsion [place] 1 spray every day by intranasal route. No fluticason e propionate 50 mcg/actuat ion nasal spray,susp ension [place] 1 spray every day by intranasal route. [facility] glimepiride 4 mg tablet Take 1 tablet every day by oral route. glimepiride 4 mg tablet Take 1 tablet every day by oral route. No 1 Q1D glimepirid e 4 mg tablet Take 1 tablet every day by oral route. [facility] Humulin R Regular U-100 Insuln Humulin R Regular U-100 Insuln No Humulin R Regular U-100 Insuln [facility] hyoscyamine 0.125 mg sublingual tablet DISSOLVE 1 TABLET IN MOUTH 4 TIMES DAILY hyoscyamine 0.125 mg sublingual tablet DISSOLVE 1 TABLET IN MOUTH 4 TIMES DAILY No hyoscyamin e 0.125 mg sublingual tablet DISSOLVE 1 TABLET IN MOUTH 4 TIMES DAILY [facility] Latuda 20 mg tablet Take 1 tablet every day by oral route. Latuda 20 mg tablet Take 1 tablet every day by oral route. No 1 Q1D Latuda 20 mg tablet Take 1 tablet every day by oral route. [facility] Latuda 60 mg tablet Take 1 tablet every day by oral route. Latuda 60 mg tablet Take 1 tablet every day by oral route. No Latuda 60 mg tablet Take 1 tablet every day by oral route. [facility] Lidocaine Viscous 2 % mucosal solution Lidocaine Viscous 2 % mucosal solution No Lidocaine Viscous 2 % mucosal solution [facility] lisinopril 10 mg tablet Take 1 tablet every day by oral route. lisinopril 10 mg tablet Take 1 tablet every day by oral route. No 1 Q1D lisinopril 10 mg tablet Take 1 tablet every day by oral route. [facility] lithium carbonate ER 450 mg tablet,exte nded release Take 1 tablet every day by oral route. lithium carbonate ER 450 mg tablet,exte nded release Take 1 tablet every day by oral route. No 1 Q1D lithium carbonate ER 450 mg tablet,ext ended release Take 1 tablet every day by oral route. [facility] metformin 1,000 mg tablet Take 1 tablet twice a day by oral route. metformin 1,000 mg tablet Take 1 tablet twice a day by oral route. No 1 BID metformin 1,000 mg tablet Take 1 tablet twice a day by oral route. [facility] metformin 500 mg tablet Take 2 tablets twice a day by oral route. metformin 500 mg tablet Take 2 tablets twice a day by oral route. No 2 BID metformin 500 mg tablet Take 2 tablets twice a day by oral route. [facility] metronidazo le 0.75 % topical gel [...] PER DAY IN THE MORNING AND EVENING [facility] metronidazo le 500 mg tablet TAKE 4 TABLETS BY MOUTH DIRECTED AT ONCE metronidazo le 500 mg tablet TAKE 4 TABLETS BY MOUTH DIRECTED AT ONCE No metronidaz ole 500 mg tablet TAKE 4 TABLETS BY MOUTH DIRECTED AT ONCE [facility] ondansetron 8 mg disintegrat ing tablet Place 1 tablet twice a day by translingua l route as needed. ondansetron 8 mg disintegrat ing tablet Place 1 tablet twice a day by translingua l route as needed. No ondansetro n 8 mg disintegra ting tablet Place 1 tablet twice a day by translingu al route as needed. [facility] sulfamethox azole 800 mg-trimetho prim 160 mg tablet sulfamethox azole 800 mg-trimetho prim 160 mg tablet No sulfametho xazole 800 mg-trimeth oprim 160 mg tablet [facility] terconazole 0.4 % vaginal cream INSERT 1 APPLICATORF UL VAGINALLY ONCE DAILY FOR 7 DAYS terconazole 0.4 % vaginal cream INSERT 1 APPLICATORF UL VAGINALLY ONCE DAILY FOR 7 DAYS No terconazol e 0.4 % vaginal cream INSERT 1 APPLICATOR FUL VAGINALLY ONCE DAILY FOR 7 DAYS [facility] trazodone 100 mg tablet TAKE 3 TABLETS BY MOUTH ONCE DAILY AT BEDTIME trazodone 100 mg tablet TAKE 3 TABLETS BY MOUTH ONCE DAILY AT BEDTIME No trazodone 100 mg tablet TAKE 3 TABLETS BY MOUTH ONCE DAILY AT BEDTIME [facility] trazodone 300 mg tablet TAKE 1 TABLET BY MOUTH ONCE DAILY AT BEDTIME trazodone 300 mg tablet TAKE 1 TABLET BY MOUTH ONCE DAILY AT BEDTIME No trazodone 300 mg tablet TAKE 1 TABLET BY MOUTH ONCE DAILY AT BEDTIME [facility] Ventolin HFA 90 mcg/actuati on aerosol inhaler Inhale 2 puffs every 4-6 hours by inhalation route as needed. Ventolin HFA 90 mcg/actuati on aerosol inhaler Inhale 2 puffs every 4-6 hours by inhalation route as needed. No Ventolin HFA 90 mcg/actuat ion aerosol inhaler Inhale 2 puffs every 4-6 hours by inhalation route as needed. [facility] armodafinil 150 mg tablet Take 1 tablet every day by oral route for 30 days. armodafinil 150 mg tablet Take 1 tablet every day by oral route for 30 days. No armodafini l 150 mg tablet Take 1 tablet every day by oral route for 30 days. [facility] azelaic acid 15 % topical gel APPLY [...] BY TOPICAL ROUTE 2 TIMES PER DAY [facility] azithromyci n 500 mg tablet TAKE 1 TABLET BY MOUTH ONCE DAILY azithromyci n 500 mg tablet TAKE 1 TABLET BY MOUTH ONCE DAILY No azithromyc in 500 mg tablet TAKE 1 TABLET BY MOUTH ONCE DAILY [facility] benzonatate 100 mg capsule TAKE 1 CAPSULE BY MOUTH EVERY 4 HOURS NEEDED benzonatate 100 mg capsule TAKE 1 CAPSULE BY MOUTH EVERY 4 HOURS NEEDED No benzonatat e 100 mg capsule TAKE 1 CAPSULE BY MOUTH EVERY 4 HOURS NEEDED [facility] bupropion HCl XL 150 mg 24 hr tablet, extended release bupropion HCl XL 150 mg 24 hr tablet, extended release No bupropion HCl XL 150 mg 24 hr tablet, extended release [facility] Bydureon BCise 2 mg/0.85 mL subcutaneou s auto-inject or Inject 2 mg every week by subcutaneou s route. Bydureon BCise 2 mg/0.85 mL subcutaneou s auto-inject or Inject 2 mg every week by subcutaneou s route. No 2mg Q1W Bydureon BCise 2 mg/0.85 mL subcutaneo us auto-injec tor Inject 2 mg every week by subcutaneo us route. [facility] ceftriaxone 1 gram solution for injection Take 1 g by injection route. ceftriaxone 1 gram solution for injection Take 1 g by injection route. No 1g ceftriaxon e 1 gram solution for injection Take 1 g by injection route. [facility] cephalexin 500 mg capsule cephalexin 500 mg capsule No cephalexin 500 mg capsule [facility] cetirizine 10 mg tablet Take 1 tablet every day by oral route. cetirizine 10 mg tablet Take 1 tablet every day by oral route. No cetirizine 10 mg tablet Take 1 tablet every day by oral route. [facility] ciprofloxac in 500 mg tablet Take 1 tablet every 12 hours by oral route for 7 days. ciprofloxac in 500 mg tablet Take 1 tablet every 12 hours by oral route for 7 days. No ciprofloxa john 500 mg tablet Take 1 tablet every 12 hours by oral route for 7 days. [facility] escitalopra m 10 mg tablet escitalopra m 10 mg tablet No escitalopr am 10 mg tablet [facility] fluconazole 150 mg tablet TAKE 1 TABLET BY MOUTH ONCE DAILY FOR 7 DAYS fluconazole 150 mg tablet TAKE 1 TABLET BY MOUTH ONCE DAILY FOR 7 DAYS No fluconazol e 150 mg tablet TAKE 1 TABLET BY MOUTH ONCE DAILY FOR 7 DAYS [facility] fluconazole 200 mg tablet TAKE 1 TABLET BY MOUTH ONCE DAILY FOR 3 DAYS fluconazole 200 mg tablet TAKE 1 TABLET BY MOUTH ONCE DAILY FOR 3 DAYS No fluconazol e 200 mg tablet TAKE 1 TABLET BY MOUTH ONCE DAILY FOR 3 DAYS [facility] fluticasone propionate 50 mcg/actuati on nasal spray,suspe nsion [place] 1 spray every day by intranasal route. fluticasone propionate 50 mcg/actuati on nasal spray,suspe nsion [place] 1 spray every day by intranasal route. No fluticason e propionate 50 mcg/actuat ion nasal spray,susp ension [place] 1 spray every day by intranasal route. [facility] glimepiride 4 mg tablet Take 1 tablet every day by oral route. glimepiride 4 mg tablet Take 1 tablet every day by oral route. No glimepirid e 4 mg tablet Take 1 tablet every day by oral route. [facility] Humulin R Regular U-100 Insuln Humulin R Regular U-100 Insuln No Humulin R Regular U-100 Insuln [facility] hydroxyzine HCl 25 mg tablet hydroxyzine HCl 25 mg tablet No hydroxyzin e HCl 25 mg tablet [facility] hyoscyamine 0.125 mg sublingual tablet DISSOLVE 1 TABLET IN MOUTH 4 TIMES DAILY hyoscyamine 0.125 mg sublingual tablet DISSOLVE 1 TABLET IN MOUTH 4 TIMES DAILY No hyoscyamin e 0.125 mg sublingual tablet DISSOLVE 1 TABLET IN MOUTH 4 TIMES DAILY [facility] labetalol 100 mg tablet Take 1 tablet twice a day by oral route. labetalol 100 mg tablet Take 1 tablet twice a day by oral route. No 1 BID labetalol 100 mg tablet Take 1 tablet twice a day by oral route. [facility] Latuda 20 mg tablet Take 1 tablet every day by oral route. Latuda 20 mg tablet Take 1 tablet every day by oral route. No Latuda 20 mg tablet Take 1 tablet every day by oral route. [facility] Latuda 40 mg tablet Latuda 40 mg tablet No Latuda 40 mg tablet [facility] Latuda 60 mg tablet Take 1 tablet every day by oral route. Latuda 60 mg tablet Take 1 tablet every day by oral route. No Latuda 60 mg tablet Take 1 tablet every day by oral route. [facility] Lidocaine Viscous 2 % mucosal solution Lidocaine Viscous 2 % mucosal solution No Lidocaine Viscous 2 % mucosal solution [facility] lisinopril 10 mg tablet Take 1 tablet [...] every day by oral route. [facility] metformin 1,000 mg tablet Take 1 tablet twice a day by oral route. metformin 1,000 mg tablet Take 1 tablet twice a day by oral route. No metformin 1,000 mg tablet Take 1 tablet twice a day by oral route. [facility] metformin 500 mg tablet Take 2 tablets twice a day by oral route. metformin 500 mg tablet Take 2 tablets twice a day by oral route. No 2 BID metformin 500 mg tablet Take 2 tablets twice a day by oral route. [facility] metronidazo le 0.75 % topical gel [...] PER DAY IN THE MORNING AND EVENING [facility] ondansetron 4 mg disintegrat ing tablet ondansetron 4 mg disintegrat ing tablet No ondansetro n 4 mg disintegra ting tablet [facility] ondansetron 8 mg disintegrat ing tablet Place 1 tablet twice a day by translingua l route as needed. ondansetron 8 mg disintegrat ing tablet Place 1 tablet twice a day by translingua l route as needed. No ondansetro n 8 mg disintegra ting tablet Place 1 tablet twice a day by translingu al route as needed. [facility] sulfamethox azole 800 mg-trimetho prim 160 mg tablet sulfamethox azole 800 mg-trimetho prim 160 mg tablet No sulfametho xazole 800 mg-trimeth oprim 160 mg tablet [facility] betamethaso ne 0.5 MG/ML / clotrimazol [...] FUL VAGINALLY ONCE DAILY FOR 7 DAYS [facility] clotrimazol e 20 MG/ML Vaginal Cream clotrimazol [...] TABLET BY MOUTH ONCE DAILY AT BEDTIME [facility] hydroxyzine hydrochlori de 25 MG Oral Tablet [...] 4-6 hours by inhalation route as needed. [facility] ketoconazol e 20 MG/ML Topical Cream ketoconazol [...] day by oral route for 30 days. [facility] tramadol hydrochlori de 50 MG Oral Tablet tramadol hydrochlori de 50 MG Oral Tablet Yes 50[facility] 4xD [facility] azelaic acid 15 % [...] BY TOPICAL ROUTE 2 TIMES PER DAY [facility] betamethaso ne 0.5 MG/ML / clotrimazol e 10 MG/ML Topical Cream betamethaso ne 0.5 MG/ML / clotrimazol e 10 MG/ML Topical [facility] Yes [facility] azithromyci n 500 mg tablet TAKE 1 TABLET BY MOUTH ONCE DAILY azithromyci n 500 mg tablet TAKE 1 TABLET BY MOUTH ONCE DAILY No azithromyc in 500 mg tablet TAKE 1 TABLET BY MOUTH ONCE DAILY [facility] cephalexin 500 mg capsule cephalexin 500 mg capsule Yes 500mg 3xD [facility]) benzonatate 100 mg capsule TAKE 1 CAPSULE BY MOUTH EVERY 4 HOURS NEEDED benzonatate 100 mg capsule TAKE 1 CAPSULE BY MOUTH EVERY 4 HOURS NEEDED No benzonatat e 100 mg capsule TAKE 1 CAPSULE BY MOUTH EVERY 4 HOURS NEEDED [facility] clotrimazol e 20 MG/ML Vaginal Cream clotrimazol e 20 MG/ML Vaginal Cream Yes [address] [facility] (LUF/LI V/SA) fluconazole 200 MG Oral Tablet fluconazole 200 MG Oral Tablet Yes 200mg [address]xD [facility] (LUF/LI V/SA) Bydureon BCise 2 mg/0.85 mL subcutaneou s auto-inject or Inject 2 mg every week by subcutaneou s route. Bydureon BCise 2 mg/0.85 mL subcutaneou s auto-inject or Inject 2 mg every week by subcutaneou s route. No 2mg Q1W Bydureon BCise 2 mg/0.85 mL subcutaneo us auto-injec tor Inject 2 mg every week by subcutaneo us route. [facility] hydroxyzine hydrochlori de 25 MG Oral Tablet hydroxyzine hydrochlori de 25 MG Oral Tablet Yes 25mg Q7.00H [facility] ([facility] V/SA) ceftriaxone 1 gram solution for injection Take 1 g by injection route. ceftriaxone 1 gram solution for injection Take 1 g by injection route. No 1g ceftriaxon e 1 gram solution for injection Take 1 g by injection route. [facility] ketoconazol e 20 MG/ML Topical Cream ketoconazol e 20 MG/ML Topical Cream Yes [address] [facility] (LUF/LI V/SA) cetirizine 10 mg tablet Take 1 tablet every day by oral route. cetirizine 10 mg tablet Take 1 tablet every day by oral route. No cetirizine 10 mg tablet Take 1 tablet every day by oral route. [facility] sulfamethox azole 800 MG / trimethopri m [...] hours by oral route for 7 days. [facility] tramadol hydrochlori de 50 MG Oral Tablet [...] MG/ML Topical Cream Yes 1 2xD [facility] (LUF/LI V/SA) fluconazole 200 mg tablet TAKE 1 TABLET BY MOUTH ONCE DAILY FOR 3 DAYS fluconazole 200 mg tablet TAKE 1 TABLET BY MOUTH ONCE DAILY FOR 3 DAYS No fluconazol e 200 mg tablet TAKE 1 TABLET BY MOUTH ONCE DAILY FOR 3 DAYS [facility] cephalexin 500 mg capsule cephalexin 500 mg capsule Yes 500mg 3xD [facility] (LUF/LI V/SA) clotrimazol e 20 MG/ML Vaginal Cream clotrimazol e 20 MG/ML Vaginal Cream Yes 1 [facility] (LUF/LI V/) fluticasone propionate 50 mcg/actuati on nasal spray,suspe nsion [place] 1 spray every day by intranasal route. fluticasone propionate 50 mcg/actuati on nasal spray,suspe nsion [place] 1 spray every day by intranasal route. No fluticason e propionate 50 mcg/actuat ion nasal spray,susp ension [place] 1 spray every day by intranasal route. [facility] fluconazole 200 MG Oral Tablet fluconazole 200 MG Oral Tablet Yes 200mg 1xD [facility] (LU/LI V/) hydroxyzine hydrochlori de 25 MG Oral Tablet hydroxyzine hydrochlori de 25 MG Oral Tablet Yes 25mg Q7.00H [facility] (LUF/LI V/) glimepiride 4 mg tablet Take 1 tablet every day by oral route. glimepiride 4 mg tablet Take 1 tablet every day by oral route. No 1 Q1D glimepirid e 4 mg tablet Take 1 tablet every day by oral route. [facility] ketoconazol e 20 MG/ML Topical Cream ketoconazol e 20 MG/ML Topical Cream Yes 1 2xD [facility] (LUF/LI V/SA) Humulin R Regular U-100 Insuln Humulin R Regular U-100 Insuln No Humulin R Regular U-100 Insuln [facility] sulfamethox azole 800 MG / trimethopri m 160 MG Oral Tablet sulfamethox azole 800 MG / trimethopri m 160 MG Oral Tablet Yes [address] [facility] tramadol hydrochlori de 50 MG Oral Tablet tramadol hydrochlori de 50 MG Oral Tablet Yes 50mg 4xD [facility] hyoscyamine 0.125 mg sublingual tablet DISSOLVE 1 TABLET IN MOUTH 4 TIMES DAILY hyoscyamine 0.125 mg sublingual tablet DISSOLVE 1 TABLET IN MOUTH 4 TIMES DAILY No hyoscyamin e 0.125 mg sublingual tablet DISSOLVE 1 TABLET IN MOUTH 4 TIMES DAILY [facility] betamethaso ne 0.5 MG/ML / clotrimazol e 10 MG/ML Topical Cream betamethaso ne 0.5 MG/ML / clotrimazol e 10 MG/ML Topical Cream Yes 1 2xD [facility] cephalexin 500 mg capsule cephalexin 500 mg capsule Yes 500mg 3xD [facility] Latuda 20 mg tablet Take 1 tablet every day by oral route. Latuda 20 mg tablet Take 1 tablet every day by oral route. No Latuda 20 mg tablet Take 1 tablet every day by oral route. [facility] clotrimazol e 20 MG/ML Vaginal Cream clotrimazol e 20 MG/ML Vaginal Cream Yes [address] [facility] fluconazole 200 MG Oral Tablet fluconazole 200 MG Oral Tablet Yes 200mg 1xD [facility] (LUF/LI V/SA) Latuda 60 mg tablet Take 1 tablet every day by oral route. Latuda 60 mg tablet Take 1 tablet every day by oral route. No 1 Q1D Latuda 60 mg tablet Take 1 tablet every day by oral route. [facility] hydroxyzine hydrochlori de 25 MG Oral Tablet hydroxyzine hydrochlori de 25 MG Oral Tablet Yes 25mg [facility]7.00H [facility] Lidocaine Viscous 2 % mucosal solution Lidocaine Viscous 2 % mucosal solution No Lidocaine Viscous 2 % mucosal solution [facility] ketoconazol e 20 MG/ML Topical Cream ketoconazol e 20 MG/ML Topical Cream Yes [address] [facility] (LUF/LI V/SA) lithium carbonate ER 450 mg tablet,exte nded release Take 1 tablet every day by oral route. lithium carbonate ER 450 mg tablet,exte nded release Take 1 tablet every day by oral route. No 1 Q1D lithium carbonate ER 450 mg tablet,ext ended release Take 1 tablet every day by oral route. [facility] ondansetron 4 mg disintegrat ing tablet ondansetron [...] tablets twice a day by oral route. [facility] sulfamethox azole 800 MG / trimethopri m [...] PER DAY IN THE MORNING AND EVENING [facility] tramadol hydrochlori de 50 MG Oral Tablet [...] day by translingu al route as needed. [facility] cephalexin 500 mg capsule cephalexin 500 mg [...] FUL VAGINALLY ONCE DAILY FOR 7 DAYS [facility] fluconazole 200 MG Oral Tablet fluconazole 200 [...] TABLET BY MOUTH ONCE DAILY AT BEDTIME [facility] ketoconazol e 20 MG/ML Topical Cream ketoconazol [...] 25 MG Oral Tablet Yes 25mg Q7.00H [facility] (LUF/LI V/) insulin, regular, human 500 UNT/ML Injectable Solution insulin, regular, human 500 UNT/ML Injectable Solution Yes .8 1xD [facility] (LUF/LI V/) ketoconazol e 20 MG/ML Topical Cream ketoconazol e 20 MG/ML Topical Cream Yes 1 2xD [facility] ondansetron 4 mg disintegrat ing tablet ondansetron 4 mg disintegrat ing tablet Yes 4mg 3xD [facility] (F/LI V/) sulfamethox azole 800 MG / trimethopri m 160 MG Oral Tablet sulfamethox azole 800 MG / trimethopri m 160 MG Oral Tablet Yes 1 [facility] tramadol hydrochlori de 50 MG Oral Tablet tramadol hydrochlori de 50 MG Oral Tablet Yes 50mg 4xD [facility] (LU/LI V/) betamethaso ne 0.5 MG/ML / clotrimazol e 10 MG/ML Topical Cream betamethaso ne 0.5 MG/ML / clotrimazol e 10 MG/ML Topical Cream Yes 1 2xD [facility] cephalexin 500 mg capsule cephalexin 500 mg capsule Yes 500mg 3xD [facility] (/LI V/) clotrimazol e 20 MG/ML Vaginal Cream clotrimazol e 20 MG/ML Vaginal Cream Yes 1 [facility] fluconazole 200 MG Oral Tablet fluconazole 200 MG Oral Tablet Yes 200mg 1xD [facility] hydroxyzine hydrochlori de 25 MG Oral Tablet hydroxyzine hydrochlori de 25 MG Oral Tablet Yes 25mg Q7.00H [facility] insulin, regular, human 500 UNT/ML Injectable Solution insulin, regular, human 500 UNT/ML Injectable Solution Yes .8 1xD [facility]) ketoconazol e 20 MG/ML Topical Cream ketoconazol e 20 MG/ML Topical Cream Yes 1 2xD [facility]) ondansetron 4 mg disintegrat ing tablet ondansetron 4 mg disintegrat ing tablet Yes 4mg 3xD [facility]) sulfamethox azole 800 MG / trimethopri m 160 MG Oral Tablet sulfamethox azole 800 MG / trimethopri m 160 MG Oral Tablet Yes 1 2xD [facility] tramadol hydrochlori de 50 MG Oral Tablet tramadol hydrochlori de 50 MG Oral Tablet Yes 50mg 4xD [facility] (LUF/LI V/) betamethaso ne 0.5 MG/ML / clotrimazol e 10 MG/ML Topical Cream betamethaso ne 0.5 MG/ML / clotrimazol e 10 MG/ML Topical Cream Yes 1 2xD [facility] cephalexin 500 mg capsule cephalexin 500 mg capsule Yes 500mg 3xD [facility] (LUF/LI V/) clotrimazol e 20 MG/ML Vaginal Cream clotrimazol e 20 MG/ML Vaginal Cream Yes 1 [facility] (LUF/LI V/SA) fluconazole 200 MG Oral Tablet fluconazole 200 MG Oral Tablet Yes 200mg 1xD [facility] hydroxyzine hydrochlori de 25 MG Oral Tablet hydroxyzine hydrochlori de 25 MG Oral Tablet Yes 25mg Q7.00H [facility] (LUF/LI V/SA) insulin, regular, human 500 UNT/ML Injectable Solution insulin, regular, human 500 UNT/ML Injectable Solution Yes .8 1xD [facility] ketoconazol e 20 MG/ML Topical Cream ketoconazol e 20 MG/ML Topical Cream Yes 1 2xD [facility]) metronidazo le [...] 3xD [facility] ([facility]/LI V/) clotrimazol e 20 [...] Injectable Solution Yes .[address] [facility] (LUF/LI V/SA) ketoconazol e 20 MG/ML Topical Cream ketoconazol e 20 MG/ML Topical Cream Yes [address] [facility] (LUF/LI V/SA) metronidazo le 0.013 MG/MG Vaginal Gel metronidazo le 0.013 MG/MG Vaginal Gel Yes 1 [facility] (LUF/LI V/) ondansetron 4 mg disintegrat ing tablet ondansetron 4 mg disintegrat ing tablet Yes 4mg [address]xD [facility] (LUF/LI V/SA) sulfamethox azole 800 MG / trimethopri m 160 MG Oral Tablet sulfamethox azole 800 MG / trimethopri m 160 MG Oral Tablet Yes 1 2xD [facility] (LUF/LI V/) tramadol hydrochlori de 50 MG Oral Tablet tramadol hydrochlori de 50 MG Oral Tablet Yes 50mg 4xD [facility] betamethaso ne 0.5 MG/ML / clotrimazol e 10 MG/ML Topical Cream betamethaso ne 0.5 MG/ML / clotrimazol e 10 MG/ML Topical Cream Yes 1 2xD [facility] (LUF/LI V/) cephalexin 500 mg capsule cephalexin 500 mg capsule Yes 500mg 3xD [facility] clotrimazol e 20 MG/ML Vaginal Cream clotrimazol e 20 MG/ML Vaginal Cream Yes [address] [facility] (LUF/LI V/) fluconazole 200 MG Oral Tablet fluconazole 200 MG Oral Tablet Yes 200mg 1xD [facility] (LUF/LI V/SA) hydroxyzine hydrochlori de 25 MG Oral Tablet hydroxyzine hydrochlori de 25 MG Oral Tablet Yes 25mg Q7.00H [facility] insulin, regular, human 500 UNT/ML Injectable Solution insulin, regular, human 500 UNT/ML Injectable Solution Yes .[address] [facility] (LUF/LI V/SA) ketoconazol e 20 [...] ing tablet Yes 4mg [address]xD [facility] (LUF/LI V/SA) sulfamethox azole 800 MG / trimethopri m 160 MG Oral Tablet sulfamethox azole 800 MG / trimethopri m 160 MG Oral Tablet Yes [address] [facility] (LUF/LI V/SA) tramadol hydrochlori de 50 MG Oral Tablet tramadol hydrochlori de 50 MG Oral Tablet Yes 50mg [address]xD [facility] (LUF/LI V/SA) betamethaso ne 0.5 MG/ML / clotrimazol e 10 MG/ML Topical Cream betamethaso ne 0.5 MG/ML / clotrimazol e 10 MG/ML Topical Cream Yes [address] [facility] (LUF/LI V/SA) cephalexin 500 mg capsule cephalexin 500 mg capsule Yes 500mg [address] [facility] (LUF/LI V/SA) clotrimazol e 20 MG/ML Vaginal Cream clotrimazol e 20 MG/ML Vaginal Cream Yes [address] [facility] (LUF/LI V/SA) fluconazole 200 MG Oral Tablet fluconazole 200 MG Oral Tablet Yes 200mg [address]xD [facility] (LUF/LI V/SA) hydroxyzine hydrochlori de 25 MG Oral Tablet hydroxyzine hydrochlori de 25 MG Oral Tablet Yes 25mg Q7.00H [facility] (LUF/LI V/SA) insulin, regular, human [...] 3xD [facility] (LUF/LI V/) clotrimazol e 20 [...] MG/MG Vaginal Gel Yes [address] [facility] (LUF/LI V/) ondansetron 4 mg disintegrat ing tablet ondansetron 4 mg disintegrat ing tablet Yes 4mg 3xD [facility] (LUF/LI V/SA) sulfamethox azole 800 [...] Oral Tablet Yes 25mg Q7.00H [facility] (LUF/LI V/SA) ketoconazol e 20 [...] [facility] (LUF/LI V/SA) amLODIPine Besylate 10 [...] BY MOUTH ONCE DAILY FOR 30 DAYS [facility] azithromyci n 500 mg tablet TAKE 1 TABLET BY MOUTH ONCE DAILY azithromyci n 500 mg tablet TAKE 1 TABLET BY MOUTH ONCE DAILY No azithromyc in 500 mg tablet TAKE 1 TABLET BY MOUTH ONCE DAILY [facility] benzonatate 100 mg capsule TAKE 1 CAPSULE BY MOUTH EVERY 4 HOURS NEEDED benzonatate 100 mg capsule TAKE 1 CAPSULE BY MOUTH EVERY 4 HOURS NEEDED No benzonatat e 100 mg capsule TAKE 1 CAPSULE BY MOUTH EVERY 4 HOURS NEEDED [facility] Bydureon BCise 2 mg/0.85 mL subcutaneou s auto-inject or Inject 2 mg every week by subcutaneou s route. Bydureon BCise 2 mg/0.85 mL subcutaneou s auto-inject or Inject 2 mg every week by subcutaneou s route. No 2mg Q1W Bydureon BCise 2 mg/0.85 mL subcutaneo us auto-injec tor Inject 2 mg every week by subcutaneo us route. [facility] glimepiride 4 mg tablet Take 1 tablet every day by oral route. glimepiride 4 mg tablet Take 1 tablet every day by oral route. No 1 Q1D glimepirid e 4 mg tablet Take 1 tablet every day by oral route. [facility] Humulin R Regular U-100 Insuln Humulin R Regular U-100 Insuln No Humulin R Regular U-100 Insuln [facility] Latuda 60 mg tablet Take 1 tablet every day by oral route. Latuda 60 mg tablet Take 1 tablet every day by oral route. No 1 Q1D Latuda 60 mg tablet Take 1 tablet every day by oral route. [facility] lithium carbonate ER 450 mg tablet,exte nded release Take 1 tablet every day by oral route. lithium carbonate ER 450 mg tablet,exte nded release Take 1 tablet every day by oral route. No 1 Q1D lithium carbonate ER 450 mg tablet,ext ended release Take 1 tablet every day by oral route. [facility] metformin 500 mg tablet Take 2 tablets twice a day by oral route. metformin 500 mg tablet Take 2 tablets twice a day by oral route. No 2 BID metformin 500 mg tablet Take 2 tablets twice a day by oral route. [facility] trazodone 100 mg tablet trazodone 100 mg tablet No trazodone 100 mg tablet [facility] trazodone 300 mg tablet Take 1 tablet every day by oral route at bedtime. trazodone 300 mg tablet Take 1 tablet every day by oral route at bedtime. No 1 Q1D trazodone 300 mg tablet Take 1 tablet every day by oral route at bedtime. [facility] armodafinil 150 mg tablet TAKE 1 TABLET BY MOUTH ONCE DAILY FOR 30 DAYS armodafinil 150 mg tablet TAKE 1 TABLET BY MOUTH ONCE DAILY FOR 30 DAYS No armodafini l 150 mg tablet TAKE 1 TABLET BY MOUTH ONCE DAILY FOR 30 DAYS [facility] azithromyci n 500 mg tablet TAKE 1 TABLET BY MOUTH ONCE DAILY azithromyci n 500 mg tablet TAKE 1 TABLET BY MOUTH ONCE DAILY No azithromyc in 500 mg tablet TAKE 1 TABLET BY MOUTH ONCE DAILY [facility] benzonatate 100 mg capsule TAKE 1 CAPSULE BY MOUTH EVERY 4 HOURS NEEDED benzonatate 100 mg capsule TAKE 1 CAPSULE BY MOUTH EVERY 4 HOURS NEEDED No benzonatat e 100 mg capsule TAKE 1 CAPSULE BY MOUTH EVERY 4 HOURS NEEDED [facility] Bydureon BCise 2 mg/0.85 mL subcutaneou s auto-inject or Inject 2 mg every week by subcutaneou s route. Bydureon BCise 2 mg/0.85 mL subcutaneou s auto-inject or Inject 2 mg every week by subcutaneou s route. No 2mg Q1W Bydureon BCise 2 mg/0.85 mL subcutaneo us auto-injec tor Inject 2 mg every week by subcutaneo us route. [facility] ceftriaxone 1 gram solution for injection Take 1 g by injection route. ceftriaxone 1 gram solution for injection Take 1 g by injection route. No 1g ceftriaxon e 1 gram solution for injection Take 1 g by injection route. [facility] Diflucan 150 mg tablet Take 1 tablet every day by oral route for 7 days. Diflucan 150 mg tablet Take 1 tablet every day by oral route for 7 days. No 1 Q1D Diflucan 150 mg tablet Take 1 tablet every day by oral route for 7 days. [facility] glimepiride 4 mg tablet Take 1 tablet every day by oral route. glimepiride 4 mg tablet Take 1 tablet every day by oral route. No 1 Q1D glimepirid e 4 mg tablet Take 1 tablet every day by oral route. [facility] Humulin R Regular U-100 Insuln Humulin R Regular U-100 Insuln No Humulin R Regular U-100 Insuln [facility] Latuda 60 mg tablet Take 1 tablet every day by oral route. Latuda 60 mg tablet Take 1 tablet every day by oral route. No 1 Q1D Latuda 60 mg tablet Take 1 tablet every day by oral route. [facility] lithium carbonate ER 450 mg tablet,exte nded release Take 1 tablet every day by oral route. lithium carbonate ER 450 mg tablet,exte nded release Take 1 tablet every day by oral route. No 1 Q1D lithium carbonate ER 450 mg tablet,ext ended release Take 1 tablet every day by oral route. [facility] metformin 500 mg tablet Take 2 tablets twice a day by oral route. metformin 500 mg tablet Take 2 tablets twice a day by oral route. No 2 BID metformin 500 mg tablet Take 2 tablets twice a day by oral route. [facility] trazodone 100 mg tablet trazodone 100 mg tablet No trazodone 100 mg tablet [facility] trazodone 300 mg tablet TAKE 1 TABLET BY MOUTH ONCE DAILY AT BEDTIME trazodone 300 mg tablet TAKE 1 TABLET BY MOUTH ONCE DAILY AT BEDTIME No trazodone 300 mg tablet TAKE 1 TABLET BY MOUTH ONCE DAILY AT BEDTIME [facility] armodafinil 150 mg tablet Take 1 tablet every day by oral route for 30 days. armodafinil 150 mg tablet Take 1 tablet every day by oral route for 30 days. No 1 Q1D armodafini l 150 mg tablet Take 1 tablet every day by oral route for 30 days. [facility] azithromyci n 500 mg tablet TAKE 1 TABLET BY MOUTH ONCE DAILY azithromyci n 500 mg tablet TAKE 1 TABLET BY MOUTH ONCE DAILY No azithromyc in 500 mg tablet TAKE 1 TABLET BY MOUTH ONCE DAILY [facility] benzonatate 100 mg capsule TAKE 1 CAPSULE BY MOUTH EVERY 4 HOURS NEEDED benzonatate 100 mg capsule TAKE 1 CAPSULE BY MOUTH EVERY 4 HOURS NEEDED No benzonatat e 100 mg capsule TAKE 1 CAPSULE BY MOUTH EVERY 4 HOURS NEEDED [facility] Bydureon BCise 2 mg/0.85 mL subcutaneou s auto-inject or Inject 2 mg every week by subcutaneou s route. Bydureon BCise 2 mg/0.85 mL subcutaneou s auto-inject or Inject 2 mg every week by subcutaneou s route. No 2mg Q1W Bydureon BCise 2 mg/0.85 mL subcutaneo us auto-injec tor Inject 2 mg every week by subcutaneo us route. [facility] ceftriaxone 1 gram solution for injection Take 1 g by injection route. ceftriaxone 1 gram solution for injection Take 1 g by injection route. No 1g ceftriaxon e 1 gram solution for injection Take 1 g by injection route. [facility] fluconazole 150 mg tablet TAKE 1 TABLET BY MOUTH ONCE DAILY FOR 7 DAYS fluconazole 150 mg tablet TAKE 1 TABLET BY MOUTH ONCE DAILY FOR 7 DAYS No fluconazol e 150 mg tablet TAKE 1 TABLET BY MOUTH ONCE DAILY FOR 7 DAYS [facility] glimepiride 4 mg tablet Take 1 tablet every day by oral route. glimepiride 4 mg tablet Take 1 tablet every day by oral route. No 1 Q1D glimepirid e 4 mg tablet Take 1 tablet every day by oral route. [facility] Humulin R Regular U-100 Insuln Humulin R Regular U-100 Insuln No Humulin R Regular U-100 Insuln [facility] hyoscyamine 0.[address] 1 tablet 4 times a day by sublingual route. hyoscyamine 0.[address] 1 tablet 4 times a day by sublingual route. No 1 QID hyoscyamin e 0.[address] 1 tablet 4 times a day by sublingual route. [facility] Latuda 60 mg tablet Take 1 tablet every day by oral route. Latuda 60 mg tablet Take 1 tablet every day by oral route. No 1 Q1D Latuda 60 mg tablet Take 1 tablet every day by oral route. [facility] lithium carbonate ER 450 mg tablet,exte nded release Take 1 tablet every day by oral route. lithium carbonate ER 450 mg tablet,exte nded release Take 1 tablet every day by oral route. No 1 Q1D lithium carbonate ER 450 mg tablet,ext ended release Take 1 tablet every day by oral route. [facility] metformin 500 mg tablet Take 2 tablets twice a day by oral route. metformin 500 mg tablet Take 2 tablets twice a day by oral route. No 2 BID metformin 500 mg tablet Take 2 tablets twice a day by oral route. [facility] terconazole 0.4 % vaginal cream INSERT 1 APPLICATORF UL VAGINALLY ONCE DAILY FOR 7 DAYS terconazole 0.4 % vaginal cream INSERT 1 APPLICATORF UL VAGINALLY ONCE DAILY FOR 7 DAYS No terconazol e 0.4 % vaginal cream INSERT 1 APPLICATOR FUL VAGINALLY ONCE DAILY FOR 7 DAYS [facility] trazodone 100 mg tablet Take 3 tablets every day by oral route at bedtime. trazodone 100 mg tablet Take 3 tablets every day by oral route at bedtime. No 3 Q1D trazodone 100 mg tablet Take 3 tablets every day by oral route at bedtime. [facility] trazodone 300 mg tablet TAKE 1 TABLET BY MOUTH ONCE DAILY AT BEDTIME trazodone 300 mg tablet TAKE 1 TABLET BY MOUTH ONCE DAILY AT BEDTIME No trazodone 300 mg tablet TAKE 1 TABLET BY MOUTH ONCE DAILY AT BEDTIME [facility] armodafinil 150 mg tablet TAKE 1 TABLET BY MOUTH ONCE DAILY FOR 30 DAYS armodafinil 150 mg tablet TAKE 1 TABLET BY MOUTH ONCE DAILY FOR 30 DAYS No armodafini l 150 mg tablet TAKE 1 TABLET BY MOUTH ONCE DAILY FOR 30 DAYS [facility] azithromyci n 500 mg tablet TAKE 1 TABLET BY MOUTH ONCE DAILY azithromyci n 500 mg tablet TAKE 1 TABLET BY MOUTH ONCE DAILY No azithromyc in 500 mg tablet TAKE 1 TABLET BY MOUTH ONCE DAILY [facility] benzonatate 100 mg capsule TAKE 1 CAPSULE BY MOUTH EVERY 4 HOURS NEEDED benzonatate 100 mg capsule TAKE 1 CAPSULE BY MOUTH EVERY 4 HOURS NEEDED No benzonatat e 100 mg capsule TAKE 1 CAPSULE BY MOUTH EVERY 4 HOURS NEEDED [facility] Bydureon BCise 2 mg/0.85 mL subcutaneou s auto-inject or Inject 2 mg every week by subcutaneou s route. Bydureon BCise 2 mg/0.85 mL subcutaneou s auto-inject or Inject 2 mg every week by subcutaneou s route. No 2mg Q1W Bydureon BCise 2 mg/0.85 mL subcutaneo us auto-injec tor Inject 2 mg every week by subcutaneo us route. [facility] ceftriaxone 1 gram solution for injection Take 1 g by injection route. ceftriaxone 1 gram solution for injection Take 1 g by injection route. No 1g ceftriaxon e 1 gram solution for injection Take 1 g by injection route. [facility] fluconazole 150 mg tablet Take 1 tablet every day by oral route for 7 days. fluconazole 150 mg tablet Take 1 tablet every day by oral route for 7 days. No 1 Q1D fluconazol e 150 mg tablet Take 1 tablet every day by oral route for 7 days. [facility] glimepiride 4 mg tablet Take 1 tablet every day by oral route. glimepiride 4 mg tablet Take 1 tablet every day by oral route. No 1 Q1D glimepirid e 4 mg tablet Take 1 tablet every day by oral route. [facility] Humulin R Regular U-100 Insuln Humulin R Regular U-100 Insuln No Humulin R Regular U-100 Insuln [facility] hyoscyamine 0.125 mg sublingual tablet DISSOLVE 1 TABLET IN MOUTH 4 TIMES DAILY hyoscyamine 0.125 mg sublingual tablet DISSOLVE 1 TABLET IN MOUTH 4 TIMES DAILY No hyoscyamin e 0.125 mg sublingual tablet DISSOLVE 1 TABLET IN MOUTH 4 TIMES DAILY [facility] Latuda 60 mg tablet Take 1 tablet every day by oral route. Latuda 60 mg tablet Take 1 tablet every day by oral route. No 1 Q1D Latuda 60 mg tablet Take 1 tablet every day by oral route. [facility] lithium carbonate ER 450 mg tablet,exte nded release Take 1 tablet every day by oral route. lithium carbonate ER 450 mg tablet,exte nded release Take 1 tablet every day by oral route. No 1 Q1D lithium carbonate ER 450 mg tablet,ext ended release Take 1 tablet every day by oral route. [facility] metformin 500 mg tablet Take 2 tablets twice a day by oral route. metformin 500 mg tablet Take 2 tablets twice a day by oral route. No 2 BID metformin 500 mg tablet Take 2 tablets twice a day by oral route. [facility] metronidazo le 500 mg tablet Take 1 tablet by oral route as directed. metronidazo le 500 mg tablet Take 1 tablet by oral route as directed. No 1 metronidaz ole 500 mg tablet Take 1 tablet by oral route as directed. [facility] terconazole 0.4 % vaginal cream INSERT 1 APPLICATORF UL VAGINALLY ONCE DAILY FOR 7 DAYS terconazole 0.4 % vaginal cream INSERT 1 APPLICATORF UL VAGINALLY ONCE DAILY FOR 7 DAYS No terconazol e 0.4 % vaginal cream INSERT 1 APPLICATOR FUL VAGINALLY ONCE DAILY FOR 7 DAYS [facility] trazodone 100 mg tablet TAKE 3 TABLETS BY MOUTH ONCE DAILY AT BEDTIME trazodone 100 mg tablet TAKE 3 TABLETS BY MOUTH ONCE DAILY AT BEDTIME No trazodone 100 mg tablet TAKE 3 TABLETS BY MOUTH ONCE DAILY AT BEDTIME [facility] trazodone 300 mg tablet TAKE 1 TABLET BY MOUTH ONCE DAILY AT BEDTIME trazodone 300 mg tablet TAKE 1 TABLET BY MOUTH ONCE DAILY AT BEDTIME No trazodone 300 mg tablet TAKE 1 TABLET BY MOUTH ONCE DAILY AT BEDTIME [facility] armodafinil 150 mg tablet Take 1 tablet every day by oral route for 30 days. armodafinil 150 mg tablet Take 1 tablet every day by oral route for 30 days. No 1 Q1D armodafini l 150 mg tablet Take 1 tablet every day by oral route for 30 days. [facility] azelaic acid 15 % topical gel APPLY [...] BY TOPICAL ROUTE 2 TIMES PER DAY [facility] azithromyci n 500 mg tablet TAKE 1 TABLET BY MOUTH ONCE DAILY azithromyci n 500 mg tablet TAKE 1 TABLET BY MOUTH ONCE DAILY No azithromyc in 500 mg tablet TAKE 1 TABLET BY MOUTH ONCE DAILY [facility] benzonatate 100 mg capsule TAKE 1 CAPSULE BY MOUTH EVERY 4 HOURS NEEDED benzonatate 100 mg capsule TAKE 1 CAPSULE BY MOUTH EVERY 4 HOURS NEEDED No benzonatat e 100 mg capsule TAKE 1 CAPSULE BY MOUTH EVERY 4 HOURS NEEDED [facility] Bydureon BCise 2 mg/0.85 mL subcutaneou s auto-inject or Inject 2 mg every week by subcutaneou s route. Bydureon BCise 2 mg/0.85 mL subcutaneou s auto-inject or Inject 2 mg every week by subcutaneou s route. No 2mg Q1W Bydureon BCise 2 mg/0.85 mL subcutaneo us auto-injec tor Inject 2 mg every week by subcutaneo us route. [facility] ceftriaxone 1 gram solution for injection Take 1 g by injection route. ceftriaxone 1 gram solution for injection Take 1 g by injection route. No 1g ceftriaxon e 1 gram solution for injection Take 1 g by injection route. [facility] fluconazole 150 mg tablet TAKE 1 TABLET BY MOUTH ONCE DAILY FOR 7 DAYS fluconazole 150 mg tablet TAKE 1 TABLET BY MOUTH ONCE DAILY FOR 7 DAYS No fluconazol e 150 mg tablet TAKE 1 TABLET BY MOUTH ONCE DAILY FOR 7 DAYS [facility] glimepiride 4 mg tablet Take 1 tablet every day by oral route. glimepiride 4 mg tablet Take 1 tablet every day by oral route. No 1 Q1D glimepirid e 4 mg tablet Take 1 tablet every day by oral route. [facility] Humulin R Regular U-100 Insuln Humulin R Regular U-100 Insuln No Humulin R Regular U-100 Insuln [facility] hyoscyamine 0.125 mg sublingual tablet DISSOLVE 1 TABLET IN MOUTH 4 TIMES DAILY hyoscyamine 0.125 mg sublingual tablet DISSOLVE 1 TABLET IN MOUTH 4 TIMES DAILY No hyoscyamin e 0.125 mg sublingual tablet DISSOLVE 1 TABLET IN MOUTH 4 TIMES DAILY [facility] Latuda 60 mg tablet Take 1 tablet every day by oral route. Latuda 60 mg tablet Take 1 tablet every day by oral route. No 1 Q1D Latuda 60 mg tablet Take 1 tablet every day by oral route. [facility] lithium carbonate ER 450 mg tablet,exte nded release Take 1 tablet every day by oral route. lithium carbonate ER 450 mg tablet,exte nded release Take 1 tablet every day by oral route. No 1 Q1D lithium carbonate ER 450 mg tablet,ext ended release Take 1 tablet every day by oral route. [facility] metformin 500 mg tablet Take 2 tablets twice a day by oral route. metformin 500 mg tablet Take 2 tablets twice a day by oral route. No 2 BID metformin 500 mg tablet Take 2 tablets twice a day by oral route. [facility] metronidazo le 0.75 % topical gel [...] [facility] metronidazo le 500 mg tablet Take 1 tablet by oral route as directed. metronidazo le 500 mg tablet Take 1 tablet by oral route as directed. No metronidaz ole 500 mg tablet Take 1 tablet by oral route as directed. [facility] terconazole 0.4 % vaginal cream INSERT 1 APPLICATORF UL VAGINALLY ONCE DAILY FOR 7 DAYS terconazole 0.4 % vaginal cream INSERT 1 APPLICATORF UL VAGINALLY ONCE DAILY FOR 7 DAYS No terconazol e 0.4 % vaginal cream INSERT 1 APPLICATOR FUL VAGINALLY ONCE DAILY FOR 7 DAYS [facility] trazodone 100 mg tablet TAKE 3 TABLETS BY MOUTH ONCE DAILY AT BEDTIME trazodone 100 mg tablet TAKE 3 TABLETS BY MOUTH ONCE DAILY AT BEDTIME No trazodone 100 mg tablet TAKE 3 TABLETS BY MOUTH ONCE DAILY AT BEDTIME [facility] trazodone 300 mg tablet TAKE 1 TABLET BY MOUTH ONCE DAILY AT BEDTIME trazodone 300 mg tablet TAKE 1 TABLET BY MOUTH ONCE DAILY AT BEDTIME No trazodone 300 mg tablet TAKE 1 TABLET BY MOUTH ONCE DAILY AT BEDTIME [facility] cetirizine 10 mg tablet Take 1 tablet every day by oral route. cetirizine 10 mg tablet Take 1 tablet every day by oral route. No 1 Q1D cetirizine 10 mg tablet Take 1 tablet every day by oral route. [facility] Flonase Allergy Relief 50 mcg/actuati on nasal spray,suspe nsion [place] 1 spray every day by intranasal route. Flonase Allergy Relief 50 mcg/actuati on nasal spray,suspe nsion [place] 1 spray every day by intranasal route. No 1spray( s) Q1D Flonase Allergy Relief 50 mcg/actuat ion nasal spray,susp ension [place] 1 spray every day by intranasal route. [facility] Latuda 20 mg tablet Take 1 tablet every day by oral route. Latuda 20 mg tablet Take 1 tablet every day by oral route. No 1 Q1D Latuda 20 mg tablet Take 1 tablet every day by oral route. [facility] armodafinil 150 mg tablet Take 1 tablet every day by oral route for 30 days. armodafinil 150 mg tablet Take 1 tablet every day by oral route for 30 days. No armodafini l 150 mg tablet Take 1 tablet every day by oral route for 30 days. [facility] azelaic acid 15 % topical gel APPLY [...] BY TOPICAL ROUTE 2 TIMES PER DAY [facility] azithromyci n 500 mg tablet TAKE 1 TABLET BY MOUTH ONCE DAILY azithromyci n 500 mg tablet TAKE 1 TABLET BY MOUTH ONCE DAILY No azithromyc in 500 mg tablet TAKE 1 TABLET BY MOUTH ONCE DAILY [facility] benzonatate 100 mg capsule TAKE 1 CAPSULE BY MOUTH EVERY 4 HOURS NEEDED benzonatate 100 mg capsule TAKE 1 CAPSULE BY MOUTH EVERY 4 HOURS NEEDED No benzonatat e 100 mg capsule TAKE 1 CAPSULE BY MOUTH EVERY 4 HOURS NEEDED [facility] Bydureon BCise 2 mg/0.85 mL subcutaneou s auto-inject or Inject 2 mg every week by subcutaneou s route. Bydureon BCise 2 mg/0.85 mL subcutaneou s auto-inject or Inject 2 mg every week by subcutaneou s route. No 2mg Q1W Bydureon BCise 2 mg/0.85 mL subcutaneo us auto-injec tor Inject 2 mg every week by subcutaneo us route. [facility] ceftriaxone 1 gram solution for injection Take 1 g by injection route. ceftriaxone 1 gram solution for injection Take 1 g by injection route. No 1g ceftriaxon e 1 gram solution for injection Take 1 g by injection route. [facility] cetirizine 10 mg tablet Take 1 tablet every day by oral route. cetirizine 10 mg tablet Take 1 tablet every day by oral route. No 1 Q1D cetirizine 10 mg tablet Take 1 tablet every day by oral route. [facility] Cipro 500 mg tablet Take 1 tablet every 12 hours by oral route for 7 days. Cipro 500 mg tablet Take 1 tablet every 12 hours by oral route for 7 days. No 1 Q12H Cipro 500 mg tablet Take 1 tablet every 12 hours by oral route for 7 days. [facility] Flonase Allergy Relief 50 mcg/actuati on nasal spray,suspe nsion [place] 1 spray every day by intranasal route. Flonase Allergy Relief 50 mcg/actuati on nasal spray,suspe nsion [place] 1 spray every day by intranasal route. No 1spray( s) Q1D Flonase Allergy Relief 50 mcg/actuat ion nasal spray,susp ension [place] 1 spray every day by intranasal route. [facility] fluconazole 150 mg tablet TAKE 1 TABLET BY MOUTH ONCE DAILY FOR 7 DAYS fluconazole 150 mg tablet TAKE 1 TABLET BY MOUTH ONCE DAILY FOR 7 DAYS No fluconazol e 150 mg tablet TAKE 1 TABLET BY MOUTH ONCE DAILY FOR 7 DAYS [facility] glimepiride 4 mg tablet Take 1 tablet every day by oral route. glimepiride 4 mg tablet Take 1 tablet every day by oral route. No 1 Q1D glimepirid e 4 mg tablet Take 1 tablet every day by oral route. [facility] Humulin R Regular U-100 Insuln Humulin R Regular U-100 Insuln No Humulin R Regular U-100 Insuln [facility] hyoscyamine 0.125 mg sublingual tablet DISSOLVE 1 TABLET IN MOUTH 4 TIMES DAILY hyoscyamine 0.125 mg sublingual tablet DISSOLVE 1 TABLET IN MOUTH 4 TIMES DAILY No hyoscyamin e 0.125 mg sublingual tablet DISSOLVE 1 TABLET IN MOUTH 4 TIMES DAILY [facility] Latuda 20 mg tablet Take 1 tablet every day by oral route. Latuda 20 mg tablet Take 1 tablet every day by oral route. No 1 Q1D Latuda 20 mg tablet Take 1 tablet every day by oral route. [facility] Latuda 60 mg tablet Take 1 tablet every day by oral route. Latuda 60 mg tablet Take 1 tablet every day by oral route. No 1 Q1D Latuda 60 mg tablet Take 1 tablet every day by oral route. [facility] lithium carbonate ER 450 mg tablet,exte nded release Take 1 tablet every day by oral route. lithium carbonate ER 450 mg tablet,exte nded release Take 1 tablet every day by oral route. No 1 Q1D lithium carbonate ER 450 mg tablet,ext ended release Take 1 tablet every day by oral route. [facility] metformin 500 mg tablet Take 2 tablets twice a day by oral route. metformin 500 mg tablet Take 2 tablets twice a day by oral route. No 2 BID metformin 500 mg tablet Take 2 tablets twice a day by oral route. [facility] metronidazo le 0.75 % topical gel [...] PER DAY IN THE MORNING AND EVENING [facility] metronidazo le 500 mg tablet TAKE 4 TABLETS BY MOUTH DIRECTED AT ONCE metronidazo le 500 mg tablet TAKE 4 TABLETS BY MOUTH DIRECTED AT ONCE No metronidaz ole 500 mg tablet TAKE 4 TABLETS BY MOUTH DIRECTED AT ONCE [facility] ondansetron 8 mg disintegrat ing tablet Place 1 tablet twice a day by translingua l route as needed. ondansetron 8 mg disintegrat ing tablet Place 1 tablet twice a day by translingua l route as needed. No 1 BID ondansetro n 8 mg disintegra ting tablet Place 1 tablet twice a day by translingu al route as needed. [facility] Immunizations Ordered Immunization Name Filled Immunization Name Date Status Comments Source HPV9 2024-08-13 00:00:00 Completed [facility] Vital Signs Vital Name Observation Time Observation Value Comments S ource Systolic blood pressure 2024-09-05 18:01:00 168 mm[Hg] Pt refused repeat BP, Reports took bp meds <1 hour ago [facility] Diastolic blood pressure 2024-09-05 18:01:00 97 mm[Hg] Pt refused repeat BP, Reports took bp meds <1 hour ago [facility] Respiratory rate 2024-09-05 17:56:00 18 /min [facility] Body weight 2024-09-05 17:56:00 100.245 kg [facility] BMI 2024-09-05 17:56:00 43.16 kg/m2 [facility] Systolic blood pressure 2024-08-13 16:06:00 133 mm[Hg] [facility] Diastolic blood pressure 2024-08-13 16:06:00 83 mm[Hg] [facility] Heart rate 2024-08-13 16:06:00 87 /min [facility] Body temperature 2024-08-13 16:06:00 36.5 Dorothy [facility] Respiratory rate 2024-08-13 16:06:00 20 /min [facility] Body height 2024-08-13 16:06:00 152.4 cm [facility] Body weight 2024-08-13 16:06:00 98.158 kg [facility] BMI 2024-08-13 16:06:00 42.26 kg/m2 [facility] Systolic blood pressure 2024-05-09 21:32:00 142 mm[Hg] [facility] Diastolic blood pressure 2024-05-09 21:32:00 84 mm[Hg] [facility] Heart rate 2024-05-09 21:24:00 107 /min [facility] Body temperature 2024-05-09 21:24:00 36.67 Dorothy [facility] Respiratory rate 2024-05-09 21:24:00 19 /min [facility] Body weight 2024-05-09 21:24:00 100.245 kg [facility] BMI 2024-05-09 21:24:00 43.16 kg/m2 [facility] Systolic blood pressure 2024-04-24 14:13:00 150 mm[Hg] manual [facility] Diastolic blood pressure 2024-04-24 14:13:00 100 mm[Hg] manual [facility] Heart rate 2024-04-24 14:10:00 106 /min [facility] Body temperature 2024-04-24 14:10:00 36.33 Dorothy [facility] Respiratory rate 2024-04-24 14:10:00 18 /min [facility] Body height 2024-04-24 14:10:00 152.4 cm [facility] Body weight 2024-04-24 14:10:00 96.752 kg [facility] BMI 2024-04-24 14:10:00 41.66 kg/m2 [facility] Systolic blood pressure 2024-02-03 16:45:00 120 mm[Hg] [facility] Diastolic blood pressure 2024-02-03 16:45:00 85 mm[Hg] [facility] Heart rate 2024-02-03 16:45:00 76 /min [facility] Body temperature 2024-02-03 16:45:00 36.67 Dorothy [facility] Body height 2024-02-03 16:45:00 152.4 cm [facility] Body weight 2024-02-03 16:45:00 97.433 kg [facility] BMI 2024-02-03 16:45:00 41.95 kg/m2 [facility] Oxygen saturation in Arterial blood by Pulse oximetry 2024-02-03 16:45:00 96 /min [facility] Systolic blood pressure 2024-01-17 19:47:00 132 mm[Hg] [facility] Diastolic blood pressure 2024-01-17 19:47:00 91 mm[Hg] [facility] Heart rate 2024-01-17 19:47:00 96 /min [facility] Respiratory rate 2024-01-17 19:47:00 18 /min [facility] Body height 2024-01-17 19:47:00 152.4 cm [facility] Body weight 2024-01-17 19:47:00 99.428 kg [facility] BMI 2024-01-17 19:47:00 42.81 kg/m2 [facility] height 2023-11-09 10:40:00 60 [in_i] [facility] weight 2023-11-09 10:40:00 212.8 [lb_av] [facility] temperature 2023-11-09 10:40:00 97.7 [degF] [facility] bmi 2023-11-09 10:40:00 41.56 kg/m2 [facility] oximetry 2023-11-09 10:40:00 97 % [facility] respiratory rate 2023-11-09 10:40:00 16 /min [facility] blood pressure systolic 2023-11-09 10:40:00 138 mm[Hg] [facility] blood pressure diastolic 2023-11-09 10:40:00 88 mm[Hg] [facility] Systolic blood pressure 2023-10-28 18:43:00 129 mm[Hg] [facility] Diastolic blood pressure 2023-10-28 18:43:00 92 mm[Hg] [facility] Heart rate 2023-10-28 18:43:00 101 /min [facility] Body height 2023-10-28 18:43:00 152.4 cm [facility] Body weight 2023-10-28 18:43:00 97.886 kg [facility] BMI 2023-10-28 18:43:00 42.15 kg/m2 [facility] height 2023-10-04 15:00:00 60 [in_i] [facility] weight 2023-10-04 15:00:00 215.0 [lb_av] [facility] temperature 2023-10-04 15:00:00 97.2 [degF] [facility] bmi 2023-10-04 15:00:00 41.98 kg/m2 [facility] oximetry 2023-10-04 15:00:00 99 % [facility] respiratory rate 2023-10-04 15:00:00 16 /min [facility] blood pressure systolic 2023-10-04 15:00:00 148 mm[Hg] [facility] blood pressure diastolic 2023-10-04 15:00:00 88 mm[Hg] [facility] Systolic blood pressure 2023-09-05 19:43:00 128 mm[Hg] [facility] Diastolic blood pressure 2023-09-05 19:43:00 76 mm[Hg] [facility] Heart rate 2023-09-05 19:43:00 80 /min [facility] Respiratory rate 2023-09-05 19:43:00 15 /min [facility] Body height 2023-09-05 19:43:00 152.4 cm [facility] Body weight 2023-09-05 19:43:00 99.338 kg [facility] BMI 2023-09-05 19:43:00 42.77 kg/m2 [facility] Systolic blood pressure 2023-08-17 15:53:00 143 mm[Hg] [facility] Diastolic blood pressure 2023-08-17 15:53:00 86 mm[Hg] [facility] Heart rate 2023-08-17 15:52:00 84 /min [facility] Respiratory rate 2023-08-17 15:52:00 18 /min [facility] Body height 2023-08-17 15:52:00 152.4 cm [facility] Body weight 2023-08-17 15:52:00 99.338 kg [facility] BMI 2023-08-17 15:52:00 42.77 kg/m2 [facility] Systolic blood pressure 2023-08-15 18:48:00 130 mm[Hg] [facility] Diastolic blood pressure 2023-08-15 18:48:00 87 mm[Hg] [facility] Heart rate 2023-08-15 18:48:00 96 /min [facility] Respiratory rate 2023-08-15 18:48:00 18 /min [facility] Body height 2023-08-15 18:48:00 152.4 cm [facility] Body weight 2023-08-15 18:48:00 97.977 kg [facility] BMI 2023-08-15 18:48:00 42.18 kg/m2 [facility] Height 2023-07-17 18:52:00 165.1 CM Weight 2023-07-17 [...] KG BP Diastolic 2022-06-18 00:00:00 100 mm[Hg] [facility] Height 2022-06-18 00:00:00 60 [in_i] [facility] BMI (Body Mass Index) 2022-06-18 00:00:00 41.8 kg/m2 [facility] BP Systolic 2022-06-18 00:00:00 157 mm[Hg] [facility] Body Weight 2022-06-18 00:00:00 3424 [oz_av] [facility] Height 2022-06-14 12:48:00 149.86 CM Weight 2022-06-14 12:48:00 99.8 KG Height 2022-05-26 12:39:00 149.86 CM Weight 2022-05-26 12:39:00 102.1 KG BP Diastolic 2022-05-11 00:00:00 110 mm[Hg] [facility] Height 2022-05-11 00:00:00 60 [in_i] [facility] BMI (Body Mass Index) 2022-05-11 00:00:00 44.5 kg/m2 [facility] BP Systolic 2022-05-11 00:00:00 167 mm[Hg] [facility] Body Weight 2022-05-11 00:00:00 3648 [oz_av] [facility] BP Diastolic 2022-04-12 00:00:00 99 mm[Hg] [facility] Height 2022-04-12 00:00:00 60 [in_i] [facility] BP Systolic 2022-04-12 00:00:00 142 mm[Hg] [facility] Height 2022-03-27 11:56:00 149.86 CM Weight 2022-03-27 11:56:00 98.88 KG Height 2022-03-15 14:25:00 149.86 CM Weight 2022-03-15 14:25:00 104.32 KG BP Diastolic 2022-03-11 00:00:00 94 mm[Hg] [facility] Height 2022-03-11 00:00:00 60 [in_i] [facility] BMI (Body Mass Index) 2022-03-11 00:00:00 44.5 kg/m2 [facility] BP Systolic 2022-03-11 00:00:00 158 mm[Hg] [facility] Body Weight 2022-03-11 00:00:00 3648 [oz_av] [facility] BP Diastolic 2022-01-11 00:00:00 81 mm[Hg] [facility] Height 2022-01-11 00:00:00 60 [in_i] [facility] BMI (Body Mass Index) 2022-01-11 00:00:00 43.9 kg/m2 [facility] BP Systolic 2022-01-11 00:00:00 129 mm[Hg] [facility] Body Weight 2022-01-11 00:00:00 3600 [oz_av] [facility] Height 2022-01-01 22:45:00 152.4 CM Weight 2022-01-01 22:45:00 104.3 KG Height 2021-10-12 00:00:00 60 [in_i] [facility] BP Diastolic 2021-10-05 00:00:00 86 mm[Hg] [facility] Height 2021-10-05 00:00:00 60 [in_i] [facility] BMI (Body Mass Index) 2021-10-05 00:00:00 43.7 kg/m2 [facility] BP Systolic 2021-10-05 00:00:00 128 mm[Hg] [facility] Body Weight 2021-10-05 00:00:00 3584 [oz_av] [facility] BP Diastolic 2021-09-09 00:00:00 103 mm[Hg] [facility] BP Systolic 2021-09-09 00:00:00 153 mm[Hg] [facility] Body Weight 2021-09-09 00:00:00 3680 [oz_av] [facility] BP Diastolic 2021-07-28 00:00:00 83 mm[Hg] [facility] BP Systolic 2021-07-28 00:00:00 129 mm[Hg] [facility] Body Weight 2021-07-28 00:00:00 3680 [oz_av] [facility] BP Diastolic 2021-07-17 00:00:00 84 mm[Hg] [facility] BP Systolic 2021-07-17 00:00:00 146 mm[Hg] [facility] Body Weight 2021-07-17 00:00:00 3648 [oz_av] [facility] BP Diastolic 2021-06-15 00:00:00 87 mm[Hg] [facility] BP Systolic 2021-06-15 00:00:00 148 mm[Hg] [facility] Body Weight 2021-06-15 00:00:00 3744 [oz_av] [facility] BP Diastolic 2021-04-20 00:00:00 81 mm[Hg] [facility] BP Systolic 2021-04-20 00:00:00 121 mm[Hg] [facility] Body Weight 2021-04-20 00:00:00 3664 [oz_av] [facility] BP Diastolic 2021-03-25 00:00:00 85 mm[Hg] [facility] BP Systolic 2021-03-25 00:00:00 133 mm[Hg] [facility] BP Diastolic 2021-03-19 00:00:00 91 mm[Hg] [facility] BP Systolic 2021-03-19 00:00:00 129 mm[Hg] [facility] Body Weight 2021-03-19 00:00:00 3664 [oz_av] [facility] Body Temperature 2023-07-17 23:31:00 98.1 [degF] [facility] (F/DANA/SA) Heart Rate 2023-07-17 23:31:00 92 /min [facility] (F/DANA/SA) Respiratory Rate 2023-07-17 23:31:00 19 /min [facility] (F/DANA/SA) O2% BldC Oximetry 2023-07-17 23:31:00 96 % [facility] (F/DANA/SA) BP Systolic 2023-07-17 23:31:00 144 mm[Hg] [facility] (F/DANA/SA) BP Diastolic 2023-07-17 23:31:00 95 mm[Hg] [facility] (F/DANA/SA) Pulse Rate 2023-07-17 22:40:00 98 /min [facility] (LUF/DANA/SA) Height 2023-07-17 18:52:00 65 [in_i] [facility] (LUF/DANA/SA) Weight 2023-07-17 18:52:00 99.8 kg [facility] (LUF/DANA/SA) BMI (Body Mass Index) 2023-07-17 18:52:00 36.6 kg/m2 [facility] (LUF/DANA/SA) Pulse Rate 2022-10-02 23:10:00 98 /min [facility] (LUF/DANA/SA) O2% BldC Oximetry 2022-10-02 23:10:00 98 % [facility] (LUF/DANA/SA) BP Systolic 2022-10-02 23:10:00 125 mm[Hg] [facility] (LUF/DANA/SA) BP Diastolic 2022-10-02 23:10:00 84 mm[Hg] [facility] (LUF/DANA/SA) Body Temperature 2022-10-02 22:15:00 98.3 [degF] [facility] (LUF/DANA/SA) Respiratory Rate 2022-10-02 22:15:00 17 /min [facility] (LUF/DANA/SA) Height 2022-10-02 22:15:00 61 [in_i] [facility] (LUF/DANA/SA) Weight 2022-10-02 22:15:00 236 [lb_av] [facility] (LUF/DANA/SA) BMI (Body Mass Index) 2022-10-02 22:15:00 45.1 kg/m2 [facility] (LUF/DANA/SA) Body Temperature 2022-08-08 17:47:00 98 [degF] [facility] (LUF/DANA/SA) Pulse Rate 2022-08-08 17:47:00 103 /min [facility] (LUF/DANA/SA) Respiratory Rate 2022-08-08 17:47:00 20 /min [facility] (LUF/DANA/SA) O2% BldC Oximetry 2022-08-08 17:47:00 96 % [facility] (LUF/DANA/SA) BP Systolic 2022-08-08 17:47:00 118 mm[Hg] [facility] (LUF/DANA/SA) BP Diastolic 2022-08-08 17:47:00 81 mm[Hg] [facility] (LUF/DANA/SA) Height 2022-08-08 17:47:00 58 [in_i] [facility] (LUF/DANA/SA) Weight 2022-08-08 17:47:00 104.3 kg [facility] (LUF/DANA/SA) BMI (Body Mass Index) 2022-08-08 17:47:00 48.2 kg/m2 [facility] (LUF/DANA/SA) Body Temperature 2022-07-22 21:45:00 99 [degF] [facility] (LUF/DANA/SA) Pulse Rate 2022-07-22 21:45:00 96 /min [facility] (LUF/DANA/SA) Respiratory Rate 2022-07-22 21:45:00 19 /min [facility] (LUF/DANA/SA) O2% BldC Oximetry 2022-07-22 21:45:00 99 % [facility] (LUF/DANA/SA) BP Systolic 2022-07-22 21:45:00 140 mm[Hg] [facility] (LUF/DANA/SA) BP Diastolic 2022-07-22 21:45:00 85 mm[Hg] [facility] (LUF/DANA/SA) Height 2022-07-22 21:45:00 58 [in_i] [facility] (LUF/DANA/SA) Weight 2022-07-22 21:45:00 99.8 kg [facility] (LUF/DANA/SA) BMI (Body Mass Index) 2022-07-22 21:45:00 46.1 kg/m2 [facility] (LUF/DANA/SA) Pulse Rate 2022-07-20 20:57:00 92 /min [facility] (LUF/DANA/SA) O2% BldC Oximetry 2022-07-20 20:57:00 99 % [facility] (LUF/DANA/SA) BP Systolic 2022-07-20 20:56:00 133 mm[Hg] [facility] (LUF/DANA/SA) BP Diastolic 2022-07-20 20:56:00 81 mm[Hg] [facility] (LUF/DANA/SA) Body Temperature 2022-07-20 17:59:00 98 [degF] [facility] (LUF/DANA/SA) Respiratory Rate 2022-07-20 17:59:00 18 /min [facility] (LUF/DANA/SA) Height 2022-07-20 17:59:00 58 [in_i] [facility] (LUF/DANA/SA) Weight 2022-07-20 17:59:00 99.8 kg [facility] (LUF/DANA/SA) BMI (Body Mass Index) 2022-07-20 17:59:00 46.1 kg/m2 [facility] (LUF/DANA/SA) Pulse Rate 2022-06-21 20:01:00 86 /min [facility] (LUF/DANA/SA) Respiratory Rate 2022-06-21 20:01:00 18 /min [facility] (LUF/DANA/SA) O2% BldC Oximetry 2022-06-21 20:01:00 97 % [facility] (LUF/DANA/SA) BP Systolic 2022-06-21 20:01:00 128 mm[Hg] [facility] (LUF/DANA/SA) BP Diastolic 2022-06-21 20:01:00 92 mm[Hg] [facility] (LUF/DANA/SA) Body Temperature 2022-06-21 17:39:00 98.2 [degF] [facility] (LUF/DANA/SA) Height 2022-06-21 17:39:00 58 [in_i] [facility] (LUF/DANA/SA) Weight 2022-06-21 17:39:00 98.6 kg [facility] (LUF/DANA/SA) BMI (Body Mass Index) 2022-06-21 17:39:00 45.6 kg/m2 [facility] (LUF/DANA/SA) Pulse Rate 2022-06-14 16:31:00 92 /min [facility] (LUF/DANA/SA) O2% BldC Oximetry 2022-06-14 16:31:00 98 % [facility] (LUF/DANA/SA) BP Systolic 2022-06-14 16:31:00 118 mm[Hg] [facility] (LUF/DANA/SA) BP Diastolic 2022-06-14 16:31:00 83 mm[Hg] [facility] (LUF/DANA/SA) Body Temperature 2022-06-14 12:48:00 98.6 [degF] [facility] (LUF/DANA/SA) Respiratory Rate 2022-06-14 12:48:00 18 /min [facility] (LUF/DANA/SA) Height 2022-06-14 12:48:00 59 [in_i] [facility] (LUF/DANA/SA) Weight 2022-06-14 12:48:00 99.8 kg [facility] (LUF/DANA/SA) BMI (Body Mass Index) 2022-06-14 12:48:00 44.9 kg/m2 [facility] (LUF/DANA/SA) Pulse Rate 2022-05-26 16:08:00 89 /min [facility] (LUF/DANA/SA) O2% BldC Oximetry 2022-05-26 16:08:00 98 % [facility] (LUF/DANA/SA) BP Systolic 2022-05-26 16:08:00 159 mm[Hg] [facility] (LUF/DANA/SA) BP Diastolic 2022-05-26 16:08:00 92 mm[Hg] [facility] (LUF/DANA/SA) Heart Rate 2022-05-26 15:02:00 84 /min [facility] (LUF/DANA/SA) Respiratory Rate 2022-05-26 15:02:00 15 /min [facility] (LUF/DANA/SA) Body Temperature 2022-05-26 12:39:00 97.8 [degF] [facility] (LUF/DANA/SA) Height 2022-05-26 12:39:00 59 [in_i] [facility] (LUF/DANA/SA) Weight 2022-05-26 12:39:00 102.1 kg [facility] (LUF/DANA/SA) BMI (Body Mass Index) 2022-05-26 12:39:00 45.9 kg/m2 [facility] (LUF/DANA/SA) Pulse Rate 2022-03-27 15:35:00 69 /min [facility] (LUF/DANA/SA) O2% BldC Oximetry 2022-03-27 15:35:00 99 % [facility] (LUF/DANA/SA) BP Systolic 2022-03-27 15:35:00 128 mm[Hg] [facility] (LUF/DANA/SA) BP Diastolic 2022-03-27 15:35:00 84 mm[Hg] [facility] (LUF/DANA/SA) Body Temperature 2022-03-27 11:56:00 97.5 [degF] [facility] (LUF/DANA/SA) Respiratory Rate 2022-03-27 11:56:00 16 /min [facility] (LUF/DANA/SA) Height 2022-03-27 11:56:00 59 [in_i] [facility] (LUF/DANA/SA) Weight 2022-03-27 11:56:00 218 [lb_av] [facility] (LUF/DANA/SA) BMI (Body Mass Index) 2022-03-27 11:56:00 44.5 kg/m2 [facility] (LUF/DANA/SA) Body Temperature 2022-03-15 14:25:00 97.8 [degF] [facility] (LUF/DANA/SA) Pulse Rate 2022-03-15 14:25:00 98 /min [facility] (LUF/DANA/SA) Respiratory Rate 2022-03-15 14:25:00 18 /min [facility] (LUF/DANA/SA) O2% BldC Oximetry 2022-03-15 14:25:00 97 % [facility] (LUF/DANA/SA) BP Systolic 2022-03-15 14:25:00 154 mm[Hg] [facility] (LUF/DANA/SA) BP Diastolic 2022-03-15 14:25:00 109 mm[Hg] [facility] (LUF/DANA/SA) Height 2022-03-15 14:25:00 59 [in_i] [facility] (LUF/DANA/SA) Weight 2022-03-15 14:25:00 230 [lb_av] [facility] (LUF/DANA/SA) BMI (Body Mass Index) 2022-03-15 14:25:00 46.9 kg/m2 [facility] (LUF/DANA/SA) Pulse Rate 2022-01-02 00:33:00 87 /min [facility] (F/DANA/SA) Respiratory Rate 2022-01-02 00:33:00 17 /min [facility] (LUF/DANA/SA) O2% BldC Oximetry 2022-01-02 00:33:00 98 % [facility] (LUF/DANA/SA) BP Systolic 2022-01-02 00:33:00 130 mm[Hg] [facility] (LUF/DANA/SA) BP Diastolic 2022-01-02 00:33:00 84 mm[Hg] [facility] (LUF/DANA/SA) Body Temperature 2022-01-01 22:45:00 97.4 [degF] [facility] (LUF/DANA/SA) Height 2022-01-01 22:45:00 60 [in_i] [facility] (LUF/DANA/SA) Weight 2022-01-01 22:45:00 104.3 kg [facility] (LUF/DANA/SA) BMI (Body Mass Index) 2022-01-01 22:45:00 45.1 kg/m2 [facility] (LUF/DANA/SA) Procedures Procedure Date / Time Performed Performing Clinicia n Source POCT TEST 2024-09-05 17:58:00 Carlos Cage [facility] GARDASIL 9 (HPV 9V) VACCINE 2024-08-13 16:29:32 Jamir Cage [facility] POCT URINALYSIS 2024-08-13 16:08:00 [facility] A1C TEST 2024-02-03 17:01:00 Helen Truong [facility] POCT URINALYSIS W/O SPECIFIC GRAVITY 2024-01-17 20:17:00 Trini Crenshaw [facility] POCT TEST 2023-08-17 00:00:00 Vincent Jorge [facility] POCT TEST 2023-08-15 00:00:00 Vincent Jorge [facility] [id number] 2023-01-15 00:00:00 [facility] [id number] 2023-01-15 00:00:00 [facility] [id number] 2023-01-15 00:00:00 [facility] [id number] 2023-01-14 00:00:00 MURJO.02 [facility] [id number] 2023-01-13 00:00:00 FALJO.01 [facility] [id number] 2022-12-18 00:00:00 GEIAL.01 [facility] [id number] 2022-11-24 00:00:00 NASDE [facility] [id number] 2022-11-15 00:00:00 PLAFE [facility] MAMMO, diagnostic, digital, bilateral 2022-04-12 00:00:00 [facility] Medical US, breast, bilateral 2022-04-12 00:00:00 [facility] home sleep study 2021-07-28 00:00:00 [facility] ULTRASOUND OF HEAD AND NECK 2021-06-15 00:00:00 [facility] Medical Plan of Care Planned Activity Planned Date Details Comments Source Diagnostic Test Pending 2022-06-18 00:00:00 HbA1 c (hemoglobin A1c), blood [code = HbA1c (hemoglobin A1c), blood] [facility] Start Date/Time End Date/Time Encounter Type Admission Type Attending Clinicians Care Facility Care Department Encounter ID Source 2023-12-08 08:24:00 Outpatient Babar Caal [facility] [id number] [facility] 2023-11-07 07:47:00 Outpatient Babar Caal [facility] [id number] [facility] 2023-10-04 13:25:01 Outpatient Babar Caal [facility] [id number] [facility] 2022-11-16 15:54:50 Outpatient [facility] [id number] [facility] 2021-01-12 13:42:04 Emergency [facility] [id number] [facility] 2021-01-11 23:08:03 Emergency [facility] [id number] [facility] 2025-03-01 10:15:00 2025-03-01 10:15:00 Outpatient R [facility] [id number] [facility] 2024-10-09 00:00:00 2024-10-09 14:38:22 Telephone Wil[facility] .840.114 350.1.13.10 4.2.7.2.686 [id number] 220 [id number] [facility] 2024-10-09 00:00:00 2024-10-09 11:21:55 [facility] 1..840.114 350.1.13.10 4.2.7.2.686 [id number] [facility] 2024-09-21 10:15:00 2024-09-21 10:15:00 Outpatient R [facility] [id number] [facility] 2024-08-14 00:00:00 2024-09-15 18:22:09 Patient Secure Msg Christa Deleon [facility] [employer] TECHNICIAN [facility] MATERNAL & CHILD [facility] 1..840.114 350.1.13.10 4.2.7.2.686 [id number] [facility] 2024-09-05 14:00:00 2024-09-05 14:15:00 [facility] [employer] [facility] CHILD [facility] ..840.114 350.1.13.10 4.2.7.2.686 [id number] [facility] 2024-09-05 13:30:00 2024-09-05 13:30:00 Outpatient R GABRIEL JAMIR [facility] [id number] [facility] 2024-09-05 13:00:00 2024-09-05 13:00:00 Outpatient R AKINSIPE, JAMIR [facility] [id number] [facility] 2024-09-04 13:45:00 2024-09-04 13:45:00 Outpatient AKINSIPE JAMIR [facility] [id number] [facility] 2024-09-04 13:15:00 2024-09-04 13:15:00 Outpatient [facility] [id number] [facility] 2024-08-14 00:00:00 2024-08-14 14:42:36 Case Management Christa Deleon [facility] [employer] TECHNICIAN [facility] CHILD [facility] ..840.114 350.1.13.10 4.2.7.2.686 [id number] [facility] 2024-08-13 10:45:00 2024-08-13 11:44:10 Office Visit R Christa Deleon Damilola C [facility] [employer] TECHNICIAN [facility] & CHILD [facility] 1.0.114 350.1.13.10 4.2.7.2.686 [id number] [facility] 2024-07-16 00:00:00 2024-07-17 09:58:57 Refill Sharona Frank, Sharona Chin [facility] 1..114 350.1.13.10 4.2.7.2.686 [id number] [facility] 2024-06-25 00:00:00 2024-06-25 13:41:41 Telephone Sharona Frank, [facility] UZMA?[facility] 1..114 350.1.13.10 4.2.7.2.686 [id number] [facility] 2024-06-21 00:00:00 2024-06-21 10:23:45 Telephone Shaorna Frank, [facility] UZMA?[facility] 1.114 350.1.13.10 4.2.7.2.686 [id number] [facility] 2024-05-11 14:30:00 2024-05-11 14:30:00 Outpatient R HELEN TRUONG [facility] [id number] [facility] 2024-05-09 15:00:00 2024-05-09 15:48:35 Outpatient R JAMIR CAGE [facility] [id number] [facility] 2024-05-09 15:00:00 2024-05-09 15:48:35 Office Visit Jamir Cage [facility] [employer] TECHNICIAN [facility] MATERNAL & CHILD [facility] 1..114 350.1.13.10 4.2.7.2.686 [id number] [facility] 2024-05-01 00:00:00 2024-05-02 12:47:36 Telephone Jamir Cage [facility] [employer] TECHNICIAN [facility] & CHILD [facility] 1.2.840.114 350.1.13.10 4.2.7.2.686 [id number] [facility] 2024-04-25 00:00:00 2024-04-26 08:21:06 Telephone Jamir Cage [facility] [employer] TECHNICIAN [facility] 1.2.840.114 350.1.13.10 4.2.7.2.686 [id number] [facility] 2024-04-24 08:30:00 2024-04-24 09:02:10 Outpatient IVONE ALVARADO [facility] [id number] [facility] 2024-04-24 08:30:00 2024-04-24 09:02:10 Office Visit Jamir Cage Brenda A [facility] [employer] TECHNICIAN [facility] CHILD [facility] 1.2.840.114 350.1.13.10 4.2.7.2.686 [id number] [facility] 2024-03-19 00:00:00 2024-03-19 15:18:40 Telephone [facility] 1.2840.114 350.1.13.10 4.2.7.2.686 [id number] [facility] 2024-03-16 00:00:00 2024-03-16 14:26:01 Telephone [facility]ner [facility] 1.2.840.114 350.1.13.10 4.2.7.2.686 [id number] [facility] 2024-03-05 00:00:00 2024-03-05 14:04:48 Telephone Sofia Merchant Khushbu A [facility] 1..840.114 350.1.13.10 4.2.7.2.686 [id number] [facility] 2024-02-14 00:00:00 2024-02-14 00:00:00 (TEL) STLMLC STLMLC [id number] [facility] 2024-02-04 10:00:00 2024-02-04 10:15:00 Whizzer Operator Visit Pob, Adc Lab Main Helen Truong Pob, [facility] 1..840.114 350.1.13.10 4.2.7.2.686 [id number] [facility] 2024-02-04 10:00:00 2024-02-04 10:00:00 Outpatient R HELEN TRUONG [facility] [id number] [facility] 2024-02-03 11:00:00 2024-02-03 11:23:25 Outpatient R HELEN TRUONG [facility] [id number] [facility] 2024-02-03 11:00:00 2024-02-03 11:23:25 Office Visit Wilner Helen [facility] 1..840.114 350.1.13.10 4.2.7.2.686 [id number] [facility] 2024-01-23 00:00:00 2024-01-24 12:06:25 Telephone Trini Marquez [facility] 1.2.840.114 350.1.13.10 4.2.7.2.686 [id number] [facility] 2024-01-19 00:00:00 2024-01-19 14:10:34 Telephone Donte zavaleta [facility] 1.2.840.114 350.1.13.10 4.2.7.2.686 [id number] [facility] 2024-01-19 00:00:00 2024-01-19 13:40:41 Case Management Donte zavaleta [facility] PROFESSIO NAL BUILDING 1.2840.114 350.1.13.10 4.2.7.2.686 [id number] [facility] 2024-01-18 00:00:00 2024-01-18 15:56:05 Telephone Helen Truong [facility] 1.2.114 350.1.13.10 4.2.7.2.686 [id number] [facility] 2024-01-17 14:30:00 2024-01-18 10:18:09 Outpatient R TRINI MARQUEZ [facility] [id number] [facility] 2024-01-11 00:00:00 2024-01-17 17:49:13 Telephone [facility] 1.20.114 350.1.13.10 4.2.7.2.686 [id number] [facility] 2024-01-17 14:30:00 2024-01-17 15:00:00 Office Visit Donte zavaleta [facility] 1.2840.114 350.1.13.10 4.2.7.2.686 [id number] [facility] 2024-01-04 00:00:00 2024-01-04 10:58:55 Telephone Sofia Merchant Sofia Velasquez [facility] AND [facility] 1.840.114 350.1.13.10 4.2.7.2.686 [id number] [facility] 2023-12-14 10:30:00 2023-12-14 10:30:00 Outpatient R VINCENT JORGE [facility] [id number] [facility] 2023-12-09 00:00:00 2023-12-09 13:04:52 Telephone MerchantSofia andrade Merchant Sofia Velasquez [facility] AND [facility] 1.840.114 350.1.13.10 4.2.7.2.686 [id number] [facility] 2023-12-06 00:00:00 2023-12-07 10:49:56 Telephone MerchantSofia andrade Merchant Sofia Velasquez [facility] 1.840.114 350.1.13.10 4.2.7.2.686 [id number] [facility] 2023-11-09 00:00:00 2023-11-09 00:00:00 OFFICE VISIT ESTAB PT LEVEL 4 STLMLC STLMLC [id number] [facility] 2023-10-28 14:00:00 2023-10-28 15:07:46 Outpatient R HELEN TRUONG [facility] [id number] [facility] 2023-10-28 14:00:00 2023-10-28 15:07:46 Office Visit Helen Truong [facility] 1..840.114 350.1.13.10 4.2.7.2.686 [id number] 220 [id number] [facility] 2023-10-04 00:00:00 2023-10-04 00:00:00 OFFICE VISIT NEW PT LEVEL 4 STLMLC STLMLC [id number] [facility] 2023-09-19 11:30:00 2023-09-19 11:30:00 Outpatient R VINCENT JORGE [facility] [id number] [facility] 2023-09-05 14:30:00 2023-09-05 15:01:37 Outpatient R VINCENT JORGE [facility] [id number] [facility] 2023-09-05 14:30:00 2023-09-05 15:01:37 Office Visit Vincent Jorge [facility] 1.840.114 350.1.13.10 4.2.7.2.686 [id number] [facility] 2023-08-22 15:07:21 2023-08-22 23:59:00 Outpatient R VINCENT JORGE [facility] [id number] [facility] 2023-08-22 15:07:21 2023-08-22 23:59:00 Hospital Encounter Vincent Jorge [facility] 1..840.114 350.1.13.10 4.2.7.2.686 [id number] [facility] 2023-08-17 11:30:00 2023-08-17 11:30:00 Office Visit Vincent Jorge [facility] 1.2.840.114 350.1.13.10 4.2.7.2.686 [id number] 134 [id number] [facility] 2023-08-17 11:30:00 2023-08-17 11:12:22 Outpatient R VINCENT JORGE [facility] [id number] [facility] 2023-08-15 15:00:00 2023-08-15 15:00:00 Whizzer Operator Visit Lab, Jono - Gallo [facility] 1.2.840.114 350.1.13.10 4.2.7.2.686 [id number] [facility] 2023-08-15 14:00:00 2023-08-15 14:15:57 Outpatient R VINCENT JORGE [facility] [id number] [facility] 2023-08-15 14:00:00 2023-08-15 14:15:57 Office Visit Vincent Jorge [facility] 1.2.840.114 350.1.13.10 4.2.7.2.686 [id number] [facility] 2023-07-17 18:49:00 2023-07-17 23:46:00 TYPE 2 DM W/HYPERGLY CEMIA 1 LATONYA BRONSON ELIZABETH [address] [id number] [facility] [facility] ([facility]) 2023-07-17 00:00:00 2023-07-17 00:00:[address] [id number] [facility] (LUF/LI V/SA) 2023-07-17 00:00:00 2023-07-17 00:00:[address] [id number] [facility] (LUF/LI V/SA) 2023-01-21 18:34:00 2023-01-21 19:05:00 Emergency EM Napoleon Nazario [facility] [id number] [facility] 2022-11-15 15:27:00 2023-01-18 20:01:00 Inpatient Jak Grullon [facility] OBPP [id number] 12 [facility] 2022-11-14 12:40:00 2022-11-15 14:20:00 Inpatient EM Gibran Garnica [facility] LD [id number] 58 [facility] 2022-11-13 17:17:00 2022-11-13 17:17:00 Outpatient UNKNOWN HCANW REF [id number] 92 [facility] 2022-10-02 22:11:00 2022-10-03 23:58:00 INJ POISON OTH EXT COMP PG 2ND TRI 1 IFEOMA DEMETRI [facility], [address], [address] [id number] [facility] (LUF/LI V/SA) 2022-10-02 00:00:00 2022-10-02 00:00:00 Inpatient [facility], [facility] [address], [address] [id number] [facility] (LUF/LI V/SA) 2022-10-02 00:00:00 2022-10-02 00:00:00 Inpatient [facility], [facility] [address], [address] [id number] [facility] (LUF/LI V/SA) 2022-08-19 18:18:00 2022-08-21 12:48:00 Inpatient EM Gavino Mercado [facility] OBSE [id number] 09 [facility] 2022-08-10 13:28:00 2022-08-10 19:20:00 Emergency EM Renita Ballard [facility] HELEN [id number] 39 [facility] 2022-08-08 17:19:00 2022-08-08 19:45:00 INJ POISON OTH EXT COMP PG 1ST TRI 1 JOYCE BORGESL EMD [id number] [facility] (LUF/LI V/SA) 2022-08-08 00:00:00 2022-08-08 00:00:00 Inpatient [facility] OZZY Melendez, [address], [place] [address] [facility] [id number] [facility] (LUF/LI V/SA) 2022-08-08 00:00:00 2022-08-08 00:00:00 Inpatient [facility] Al, [address], [place] [address] [facility] [id number] [facility] (LUF/LI V/SA) 2022-08-07 15:27:00 2022-08-07 17:40:00 Emergency EM Andrea Marcos [facility] HELEN [id number] [facility] 2022-07-22 21:41:00 2022-07-23 00:15:00 PRE-EXISTI NG TYPE 1 DM PREG 1ST TRI 1 SANDRINE SIM [facility], [address] [address] 7 [facility] [id number] [facility] (LUF/LI V/SA) 2022-07-22 00:00:00 2022-07-22 00:00:00 Inpatient [facility], [address] [place] [address] [facility] [id number] [facility] (LUF/LI V/SA) 2022-07-22 00:00:00 2022-07-22 00:00:00 Inpatient [facility] Al, [address] [place] [address] [facility] [id number] [facility] (LUF/LI V/SA) 2022-07-21 22:46:00 2022-07-21 23:59:00 Inpatient [facility], [address] [place] [address] [facility] [id number] [facility] (LUF/LI V/SA) 2022-07-21 00:00:00 2022-07-21 00:00:00 Inpatient [facility], [address] [place] [address] [facility] [id number] [facility] (LUF/LI V/SA) 2022-07-20 17:40:00 2022-07-20 21:45:00 THREATENED 1 DEMETRI DIA [facility], [address] [address] [facility] [id number] [facility] (LUF/LI V/SA) 2022-07-20 00:00:00 2022-07-20 00:00:00 Inpatient [facility], [address] [address] [facility] [id number] [facility] (LUF/LI V/SA) 2022-07-20 00:00:00 2022-07-20 00:00:00 Inpatient [facility], [address] [address] [facility] [id number] [facility] (LUF/LI V/SA) 2022-07-13 17:44:00 2022-07-13 21:07:00 Emergency EM [facility] [id number] 84 [facility] 2022-06-21 16:55:00 2022-06-21 21:07:00 PRE-EXISTI NG TYPE 2 DM PREG 1ST TRI 1 SANDRINE SIM STL EMD [id number] [facility] (LUF/LI V/SA) 2022-06-21 00:00:00 2022-06-21 00:00:00 Inpatient [facility] OZZY Melendez, [address], [place] [address] [facility] [id number] [facility] (LUF/LI V/SA) 2022-06-21 00:00:00 2022-06-21 00:00:00 Inpatient [facility] OZZY Melendez, [address], [place] [address] [facility] [id number] [facility] ([facility]/SA) 2022-06-18 00:00:00 2022-06-18 00:00:00 Luiz Rogers, FLEET SALES ASSOCIATE: [address] [place] [address] , Ph. [facility] - GC_LEH_[place] Office* [id number] [facility] 2022-06-14 12:15:00 2022-06-14 16:54:00 VOMITING OF UNSPECIFIE D 1 ALIA STRANGE [facility] EMD [id number] [facility] ([facility] V/SA) 2022-06-14 00:00:00 2022-06-14 00:00:00 Inpatient [facility] OZZY Melendez, [address], [facility], [address] [id number] [facility] (LUF/LI V/SA) 2022-06-14 00:00:00 2022-06-14 00:00:00 Inpatient [facility] OZZY Melendez, [address], [place] [address] [facility] [id number] [facility] (LUF/LI V/SA) 2022-06-14 00:00:00 2022-06-14 00:00:00 Inpatient [facility] OZZY Melendez, [address], [place] [address] [facility] [place] [id number] [facility] (LUF/LI V/SA) 2022-05-26 12:36:00 2022-05-26 16:06:00 TYPE 2 DM W/HYPERGLY CEMIA 1 THALIA GODDARD [facility] [id number] [facility] (LUF/LI V/SA) 2022-05-26 00:00:00 2022-05-26 00:00:00 Inpatient [facility] OZZY Melendez, [address], [address] [place] [id number] [facility] ([facility]F/LI V/SA) 2022-05-26 00:00:00 2022-05-26 00:00:00 Inpatient [facility] OZZY Melendez, [address], [address] [place] [id number] [facility] l (LUF/LI V/SA) 2022-05-11 00:00:00 2022-05-11 00:00:00 Lani Pitt, SHANK CUTTER: [address] [place] [address] , Ph. [facility] - GC_LE_[facility] [place] Office* [id number] [facility] 2022-04-12 00:00:00 2022-04-12 00:00:00 Lani Pitt, SHANK CUTTER: [address] [place] [address] , Ph. [facility] - _LE_[place] Office* [id number] [facility] 2022-04-10 13:27:00 2022-04-10 18:13:00 Emergency EM Adriana Mckeon [facility] [id number] 90 [facility] 2022-03-27 11:53:00 2022-03-27 15:57:00 ACUTE CANDIDIASI S VULVA AND VAGINA 1 JOYCE BORGES [facility] N, [address], [place] [address] [facility] [id number] [facility] (LUF/LI V/SA) 2022-03-27 00:00:00 2022-03-27 00:00:00 Inpatient [facility], [address], [place] [address] [facility] [id number] [facility] (LUF/LI V/SA) 2022-03-27 00:00:00 2022-03-27 00:00:00 Inpatient [facility], [address], [place] [address] [facility] [id number] [facility] (LUF/LI V/SA) 2022-03-15 13:47:00 2022-03-15 14:46:00 TINEA CRURIS 1 ALIE, ALIA [facility], [address], [place] [address] [facility] [id number] [facility] (LUF/LI V/SA) 2022-03-15 00:00:00 2022-03-15 00:00:00 Inpatient [facility], [address], [place] [address] [facility] [id number] [facility] (LUF/LI V/SA) 2022-03-11 00:00:00 2022-03-11 00:00:00 Lani Pitt, SHANK CUTTER: [address] [place] [address] , Ph. [facility] - GC_LE_[place] Office* [id number] [facility] 2022-01-11 00:00:00 2022-01-11 00:00:00 Lani Pitt, SHANK CUTTER: [address] [place] [address] , Ph. [facility]* [id number] [facility] 2022-01-01 22:35:00 2022-01-02 03:05:00 TYPE 2 DM W/HYPERGLY CEMIA 1 SANDRINE SIM [facility], [address], [address] [id number] [facility] l (LUF/LI V/SA) 2022-01-01 00:00:00 2022-01-01 00:00:00 Inpatient [facility], [address], [address] [id number] [facility] l (LUF/LI V/SA) 2022-01-01 00:00:00 2022-01-01 00:00:00 Inpatient [facility] N, [address], [address] [id number] [facility] l (LUF/LI V/SA) 2021-10-12 00:00:00 2021-10-12 00:00:00 Lani Pitt, SHANK CUTTER: [address] [place] [address] , Ph. [facility]* [id number] [facility] 2021-10-12 00:00:00 2021-10-12 00:00:00 Outpatient Lani Pitt [facility] [id number] 2021-10-05 00:00:00 2021-10-05 00:00:00 Lani Pitt, SHANK CUTTER: [address] [place] [address] , Ph. [facility] - _[facility]H_[place] Office* [id number] [facility] 2021-10-05 00:00:00 2021-10-05 00:00:00 Outpatient Lani Pitt [facility] [id number] 2021-09-09 00:00:00 2021-09-09 00:00:00 Lani Pitt, SHANK CUTTER: [address] [place] [address] , Ph. [facility] - _[place] [facility]* [id number] [facility] 2021-09-09 00:00:00 2021-09-09 00:00:00 Outpatient Lani Pitt [facility] [id number] 2021-07-28 00:00:00 2021-07-28 00:00:00 Lani Pitt, SHANK CUTTER: [address] [place] [address] , Ph. [facility] - _LE_[place] [facility]* [id number] [facility] 2021-07-28 00:00:00 2021-07-28 00:00:00 Outpatient Lani Pitt [facility] [id number] 2021-07-17 00:00:00 2021-07-17 00:00:00 Luiz Rogers APN: [address] [place] [address] , Ph. [facility] - _LE_[place] Office* [id number] [facility] 2021-07-17 00:00:00 2021-07-17 00:00:00 Outpatient Luiz Rogers [facility] [id number] 2021-06-15 00:00:00 2021-06-15 00:00:00 Lani Pitt, SHANK CUTTER: [address] [place] [address] , Ph. [facility] [id number] [facility] 2021-06-15 00:00:00 2021-06-15 00:00:00 Outpatient Lani Pitt [facility] [id number] 00:00:00 2021-04-20 00:00:00 Lani Pitt, SHANK CUTTER: [address] [place] [address] , Ph. [facility] Office* [id number] [facility] 2021-04-20 00:00:00 2021-04-20 00:00:00 Outpatient Lani Pitt [facility] [id number] 2021-03-25 00:00:00 2021-03-25 00:00:00 Outpatient Lani Pitt [facility] [id number] 2021-03-25 00:00:00 2021-03-25 00:00:00 Lani Pitt, SHANK CUTTER: [address] [place] [address] , Ph. [facility] Office* [id number] [facility] 2021-03-18 20:07:00 2021-03-19 03:12:00 Emergency EM Jonny Mejia [facility] [id number] 04 [facility] 2021-03-19 00:00:00 2021-03-19 00:00:00 Outpatient Dennys Roger [facility] [id number] 2021-03-19 00:00:00 2021-03-19 00:00:00 Dennys Roger, SHANK CUTTER: [address] [place] [address] , Ph. [facility] - GC_LE_[facility] Office* [id number] [facility] Medical Results Test Description Test Time Test Comments Results Result Co mments Source [facility] Urinalysis W Specific [id number] 16:09:00* Test Item Value Reference Range Interpretation Comme nts POCT U SP GRAV (test code = 3255) . 1.005-1.025 POCT PH U (test code = 3254) 5 mg/dl 5-8 POCT U LEUK EST (test code = 3263) 1+ Negative - Negative POCT U NIT (test code = 3262) negative Negative - Negati ve POCT U PROT (test code = 3259) trace Negative - Negat vanessa POCT U GLU (test code = 3256) 1000 Negative - Negati ve POCT U KETONE (test code = 3258) 1+ Negative - Neg ative POCT U UROBILI (test code = 3260) . 0.2-1 POCT U BILI (test code = 3261) . Negative - Negat vnaessa POCT U BLD (test code = 3257) negative Negative - Negati ve POCT U COLOR (test code = 3266) POCT U APPEAR (test code = 3267) [facility] Hemoglobin A1C [id number] 17:01:00* Test Item Value Reference Range Interpretation Comme nts POCT HBA1C (test code = 4548-4) 12.3 % 4-6 A Lab Interpretation (test cod e = 78988-0) Abnormal [facility] Urinalysis w/o Specific [id number] 20:18:00* Test Item Value Reference Range Interpretation [...] = 3257) 50 Negative - Negati ve [facility] [id number] 00:00:00* Test Item Value Reference Range Interpretation Comme nts A1C (test code = 4548-4) 13.5 HEMOGLOBIN [id number] 00:00:00* Test Item Value Reference Range Interpretation Comme nts A1C (test code = 4548-4) 12.9 POCT [id number] 15:53:00* Test Item Value Reference Range Interpretation Comme nts POCT PREG (test code = 1605) Negative On board controls acceptable with C Line (test code = 3574) Yes POCT PREG LOT # (test code = 3575) POCT PREG TEST DATE ( test code = 3576) [facility] [id number] 15:53:00* Test Item Value Reference Range Interpretation Comme nts POCT PREG (test code = 1605) Negative On board controls acceptable with C Line (test code = 3574) Yes POCT PREG LOT # (test code = 3575) POCT PREG TEST DATE ( test code = 3576) [facility] [id number] 19:14:00* Test Item Value Reference Range Interpretation Comme nts POCT PREG (test code = 1605) Negative On board controls acceptable with C Line (test code = 3574) Yes POCT PREG LOT # (test code = 3575) POCT PREG TEST DATE ( test code = 3576) [facility] [id number] 19:14:00* Test Item Value Reference Range Interpretation Comme nts POCT PREG (test code = 1605) Negative On board controls acceptable with C Line (test code = 3574) Yes POCT PREG LOT # (test code = 3575) POCT PREG TEST DATE ( test code = 3576) [facility] Hospital[facility]ACA[facility] [id number] 23:34:00* Test Item Value Reference Range Interpretation Comme nts LACTATE (test code = LAC) 3.0 mmol/l 0.4-2.0 HH This is a REPEAT IF initial lactate >2.0STLMLXR ABDOMEN 1 VIEW (KUB)2023-07-17 21:11:54[facility] (LUF/DANA/SA)Name: AMINTA NINO : 1990 Sex: FABDOMEN (1 VIEW)HISTORY: Abdominal pain.COMPARISON- none available.FINDINGS:No intestinal obstruction. No free air. The skeletal structures appear normal.Electronically signed by: Lea Forrester 07/17/2023 21:07Dictated By: LEA FORRESTERDate: 07/17/2023 21:11STLMLURINALYSIS WITH REFLEX TO [id number] 21:10:00* Test Item Value Reference Range Interpretation Comme nts Color (test code = UCOLR) Yellow Clarity (test code = UCLAR) Clear Glucose (test code = UGLUC) >=1000 NEGATIVE A Bilirubin (test code = UBILI) NEGATIVE NEGATIVE N Ketones (test code = UKET) TRACE NEGATIVE A Specific [place] (test code = USPGR) 1.025 1.005-1.030 A [...] ACESER) 3.22 mg/dl 0.20-2.81 H STLMLLACTIC ACID [id number] 20:48:00* Test Item Value Reference Range Interpretation Comme nts LACTATE (test code = LAC) 3.3 mmol/l 0.7-2.0 HH Critical values were called to Kathy Bernal RN by [id number] on 07/17/23 20:48 . Results were read back by Kathy Bernal RN.[id number] 20:43:00* Test Item Value Reference Range Interpretation Comme nts Lipase (test code = LIPA) 34 U/L 13-75 [id number] 20:43:00* Test Item Value Reference Range Interpretation Comme nts Magnesium (test code = MG) 1.9 mg/dl 1.6-2.6 [id number] 20:32:00* Test Item Value Reference Range Interpretation Comme nts Phosphorus (test code = PHOS) 3.8 mg/dl 2.5-4.5 [id number] 20:32:00* Test Item Value Reference Range Interpretation [...] use a race coefficient. STLMLPREGNANCY TEST, Urine [id number] 20:22:00* Test Item Value Reference Range Interpretation Comme nts (Urine) (test code = PREGU) Negative STLMLCBC WITH AUTO [id number] 20:15:00* Test Item Value Reference Range Interpretation [...] code = IG%) 0.5 % 0.0-0.4 H [id number] 15:59:00* Test Item Value Reference Range Interpretation Comme nts SURGICAL (test code = SR) R UN DATE: 01/31/23 [facility] PAGE 1 RUN TIME: 1559 Specimen Inquiry RUN USER: INTERFACE P ATIENT: MICAAMINTA BANEGAS [facility] #: [id number] AGE/SX: ROOM: [age] RE11/15/22REG DR: Jak Herrera MD : 89 BED: A DIS: 01/18/23 STATUS: DIS IN TLOC: SPEC #: [id number] RECD: 01/17/23 STATUS: ILANA RE #: [id number] DELILAH: 01/15/23-1112 [facility] DR: Jak Herrera MD ENTERED: 01/17/23 SP TYPE: SURGICAL OTHR DR: Self Referred Carline Wilkerson MD, Dean A MD Orzeck, Eric A MD Singhal, Meghali MDORDERED: ANATOMIC SPEC, SPEC TRACK, [id number] COPIES TO: Self Referred Jak Herrera MD 05[address] [facility] [address] [place] [address] [email or web address] Carline Wilkerson MD [address] [place] [address] [place] [address] [place] [address] [email or web address] [address] [facility] [place] [phone] [email or web address] Elías [place] [address] [id number] PROCEDURES: 19709 (01/17/23) TISSUES: A. PLACENTA, THIRD TRIMESTER (28 + WEEKS) CONTINUED ON NEXT PAGE R UN DATE: 01/31/23 [facility] PAGE 2 RUN TIME: 1559 Specimen Inquiry RUN USER: INTERFACE S PEC #: [id number] PATIENT: VINCENT NINORASHEEDA BANEGAS #[id number] (Continued) FINAL DIAGNOSIS PLACENTA, DELIVERY: Placental disc [...] surface: Red-brown partially friable soft tissueLesions: None Dispatcher Service Or Work sections submitted as follows: A1: umbilical cord and membrane roll A2-A4: Sections of disc MP 01/17/23 Technical component performed at [facility]'s [address] [address] Immunohistochemical stains and Special Stains are [facility] [address] [place] [address], [address], [place] [address] Unless gross only, the diagnosis is based upon microscopic examination. Immunohistochemistry: This test was developed and its performance characteristicsdetermined by this laboratory. It has not been approved nor does it need approval by [place] FDA. Appropriate positive and negative controls are reviewed and judged to be CONTINUED ON NEXT PAGE R UN DATE: 01/31/23 [facility] PAGE 3 RUN TIME: 2164 Specimen Inquiry RUN USER: INTERFACE S CROW #: [id number] PATIENT: AMINTA NINO #[id number] (Continued) GROSS DESCRIPTION (Continued) acceptable. This laboratory is certified under the Clinical Laboratory ImprovementAmendments (CLIA-88) as qualified to perform high complexity clinical laboratory testing. MICROSCOPIC DESCRIPTION Microscopic examination is performed and the findings are incorporated in the diagnosis. CLINICAL INFORMATION 01/15/2023, IUP @ 34.6 WKS, KIMBERLI, PRE-E, PM2. --- Signed _ Ar Stewart 01/31/23 1559 END OF REPORT BLADIMIR/[id number] 08:56:00* Test Item Value Reference Range Interpretation Comme nts SGOT/AST (test code = AST) 17 units/L 15-37 N SGPT/[id number] 08:56:00* Test Item Value Reference Range Interpretation Comme nts SGPT/ALT (test code = ALT) 17 units/L 12-78 N CBC W/AUTO [id number] 07:45:00* Test Item Value Reference Range Interpretation [...] REQUIRED (test code = PLTMR) NORMAL NORMAL [id number] 06:15:00* Test Item Value Reference Range Interpretation Comme nts GLUBED (test code = GLUBED) 180 mg/dL 65-110 H [id number] 21:05:00* Test Item Value Reference Range Interpretation Comme nts GLUBED (test code = GLUBED) 287 mg/dL 65-110 H [id number] 13:38:00* Test Item Value Reference Range Interpretation Comme nts GLUBED (test code = GLUBED) 157 mg/dL 65-110 H CAPILLARY BLOOD [id number] 11:28:00* Test Item Value Reference Range Interpretation [...] t code = DELC) RA CAPILLARY BLOOD [id number] 11:25:00* Test Item Value Reference Range Interpretation Comme [facility] CAPILLARY BLOOD GAS PH (test code = [...] DEL (shey t code = DELC) RA [id number] 03:10:00* Test Item Value Reference Range Interpretation Comme nts GLUBED (test code = GLUBED) 146 mg/dL 65-110 H [id number] 00:43:00* Test Item Value Reference Range Interpretation Comme nts GLUBED (test code = GLUBED) 129 mg/dL 65-110 H [id number] 19:36:00* Test Item Value Reference Range Interpretation Comme nts GLUBED (test code = GLUBED) 108 mg/dL 65-110 N RUPTURE OF [id number] 15:05:00* Test Item Value Reference Range Interpretation Comme nts RUPTURE OF MEMBRANES (test c ode = ROM) RUPTURED [id number] 14:47:00* Test Item Value Reference Range Interpretation Comme nts GLUBED (test code = GLUBED) 106 mg/dL 65-110 N [id number] 09:41:00* Test Item Value Reference Range Interpretation Comme nts GLUBED (test code = GLUBED) 97 mg/dL 65-110 N [id number] 05:41:00* Test Item Value Reference Range Interpretation Comme nts GLUBED (test code = GLUBED) 68 mg/dL 65-110 N COMPREHENSIVE METABOLIC [id number] 19:41:00* Test Item Value Reference Range Interpretation [...] ALKP) 107 units/L 46-116 N UR PROTEIN/CREATININE [id number] 19:10:00* Test Item Value Reference Range Interpretation Comme nts UR PROTEIN RANDOM (test code = PROTU) 55.0 mg/dL No reference range available UR CREATININE RANDOM (test code = CREATU) 90.2 mg/dL No referenc e range available PROTEIN/CREATININE RATIO (test code = P/CRATIO) 609.7 mg/gcrea <200 H CBC W/AUTO [id number] 18:50:00* Test Item Value Reference Range Interpretation [...] code = PLTMR) NORMAL NORMAL RUPTURE OF [id number] 01:04:00* Test Item Value Reference Range Interpretation Comme nts RUPTURE OF MEMBRANES (test c ode = ROM) NON-RUPTURED - US FET BIO PH GA W/O [id number] 17:48:00 [facility] 1990 Sex: F Patient Name: AMINTA NINO Unit No: [id number] EXAMS: CPT CODE: [id number] US FET B IO PH GA W/O NST 86603 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 Exam: - US FET BIO PH GA W/O NST Technique: 2D grayscale, pulse wave [...] lower limits of normal, measuring 6.4 cm. at 1748 Reported and signed by: Agatha George MD CC: Darron Santacruz MD; Jak Gregory; Carline Wilkerson MD Technologist: IRIS GARCIA RDMS Probe: Trnscrbd D/ (1748) t.SDR.MT6 Orig Print D/T: S: 01/07/2023 (1751) [facility] NAME: SHANNON NINOBLAISE BANEGAS Radiology Department PHYS: DANNI. Darron Santacruz MD [address] : 1990 AGE: 32 SEX: F [place], [place] [address] LOC: Glo.Rio8 A PHONE #: [phone] EXAM DATE: 01/07/2023 STATUS: ADM IN FAX #: [phone] RAD NO: Page 1 Signed Report Patient Name: AMINTA NINO Unit No: [id number] EXAMS: CPT CODE: [id number] FET BIO PH GA W/O NST 64728 (Continued) [facility] NAME: MICAAMINTA BANEGAS Radiology Department PHYS: DANNI Darron Santacruz MD [address] : 1990 AGE: 32 SEX: F [place], [place] [address] LOC: F.5048 A PHONE #: [phone] EXAM DATE: 01/07/2023 STATUS: ADM IN FAX #: [phone] RAD NO: Page 2 Signed ReportUR PROTEIN/CREATININE [id number] 16:52:00* Test Item Value Reference Range Interpretation Comme nts UR PROTEIN RANDOM (test code = PROTU) 41.1 mg/dL No reference range available UR CREATININE RANDOM (test code = CREATU) 103.6 mg/dL No referenc e range available PROTEIN/CREATININE RATIO (test code = P/CRATIO) 396.7 mg/gcrea <200 H COMPREHENSIVE METABOLIC [id number] 14:38:00* Test Item Value Reference Range Interpretation [...] thepatient's age is <18 years. CBC W/AUTO [id number] 14:18:00* Test Item Value Reference Range Interpretation [...] code = PLTMR) NORMAL NORMAL RUPTURE OF [id number] 21:42:00* Test Item Value Reference Range Interpretation Comme nts RUPTURE OF MEMBRANES (test c ode = ROM) NON-RUPTURED [id number] 05:12:00* Test Item Value Reference Range Interpretation Comme nts FRUCTOSAMINE (test code = FRUC) 180 umol/L 0-285 Published refere nce interval for apparently healthysubjects between age 20 and 60 is 205 - 285 umol/L and in apoorly controlled diabetic population is 228 - 563 umol/Lwith a mean of 396 umol/L.Performed At: [facility] [address] [id number] Chencho Montalvo MD Ph:[phone] [id number] 13:28:00* Test Item Value Reference Range Interpretation Comme nts GLUBED (test code = GLUBED) 72 mg/dL 65-110 N [id number] 10:55:00* Test Item Value Reference Range Interpretation Comme nts CREATININE (test code = CREAT) 0.6 mg/dL 0.5-1.0 N UR CREATININE CLEARANCE [id number] 10:45:00* Test Item Value Reference Range Interpretation Comme nts CREATININE CLEARANCE RESULT (test code = CREATCLR) 258 ml/min 70-120 H CREATININE (test code = CREAT) 0.4 mg/dL 0.5-1.0 L UR CREATININE RANDOM (test code = CREATU) 67.6 mg/dL No referenc e range available UR VOLUME (test code = VOL) 2200 ML UR PROTEIN [id number] 10:45:00* Test Item Value Reference Range Interpretation Comme nts UR PROTEIN RANDOM (test code = PROTU) 37.9 mg/dL No reference range available UR PROTEIN 24HR (test code = JGFS32D) 834 mg/24HR 20-150 HH RESULTS CALLED Janet GregoryREAD BACK & CONFIRMED? Y.BY F.LAB.KG 12/28/22 1044.Units for 24 HR Urine Protein have changed: New Units = MG/24HR COMPREHENSIVE METABOLIC [id number] 12:59:00* Test Item Value Reference Range Interpretation [...] if thepatient's age is <18 years. PROTHROMBIN [id number] 12:50:00* Test Item Value Reference Range Interpretation Comme nts PROTHROMBIN TIME PATIENT (te st code = PTP) 10.0 secs 9.8-13.3 N THROMBOPLASTIN TIME [id number] 12:50:00* Test Item Value Reference Range Interpretation Comme nts THROMBOPLASTIN TIME PARTIAL (test code = PTT) 29 secs 26.2-37.2 N CBC W/AUTO [id number] 12:39:00* Test Item Value Reference Range Interpretation [...] REQUIRED (test code = PLTMR) NORMAL NORMAL [id number] 14:42:00* Test Item Value Reference Range Interpretation Comme nts GLUBED (test code = GLUBED) 196 mg/dL 65-110 H [id number] 10:55:00* Test Item Value Reference Range Interpretation Comme nts GLUBED (test code = GLUBED) 120 mg/dL 65-110 H [id number] 06:08:00* Test Item Value Reference Range Interpretation Comme nts GLUBED (test code = GLUBED) 116 mg/dL 65-110 H [id number] 21:11:00* Test Item Value Reference Range Interpretation Comme nts GLUBED (test code = GLUBED) 168 mg/dL 65-110 H [id number] 14:39:00* Test Item Value Reference Range Interpretation Comme nts GLUBED (test code = GLUBED) 138 mg/dL 65-110 H [id number] 10:37:00* Test Item Value Reference Range Interpretation Comme nts GLUBED (test code = GLUBED) 80 mg/dL 65-110 N [id number] 06:05:00* Test Item Value Reference Range Interpretation Comme nts GLUBED (test code = GLUBED) 92 mg/dL 65-110 N [id number] 12:08:00* Test Item Value Reference Range Interpretation Comme nts FRUCTOSAMINE (test code = FRUC) 200 umol/L 0-285 Published refere nce interval for apparently healthysubjects between age 20 and 60 is 205 - 285 umol/L and in apoorly controlled diabetic population is 228 - 563 umol/Lwith a mean of 396 umol/L.Performed At: [address] [id number] Kyle L MD Ph:[phone] [id number] 10:16:00* Test Item Value Reference Range Interpretation Comme nts FRUCTOSAMINE (test code = FRUC) 217 umol/L 0-285 Published refere nce interval for apparently healthysubjects between age 20 and 60 is 205 - 285 umol/L and in apoorly controlled diabetic population is 228 - 563 umol/Lwith a mean of 396 umol/L.Performed At: [facility] [id number] Montalvo MD Ph:[phone] [id number] 02:11:00* Test Item Value Reference Range Interpretation Comme nts GLUBED (test code = GLUBED) 313 mg/dL 65-110 H Phsician Notifie d CHLAMYDIA GC DNA BY [id number] 11:16:00* Test Item Value Reference Range Interpretation Comme nts C. TRACHOMATIS DNA BY PCR (test code = CHLAMTDNA) NOT DETECTED Not Detecte N. GONORRHOEAE DNA BY PCR (test code = NGONORDNA) NOT DETECTED Not Detecte TEST PERFORMED U SING THE [employer] GENEXPERT BY PCR.FALSE NEGATIVE RESULTS MAY OCCUR IF THE ORGANISM(S) ISPRESENT AT LEVELS BELOW THE ANALYTICAL LIMIT OD DETECTION.BECAUSE THE DETECTION OF CHLAMYDIA TRACHOMATIS AND NEISSERIA GONORRHOEAE IS DEPENDENT ON THE DNA PRESENT INTHE SAMPLE, RELIABLE RESULTS ARE DEPENDENT ON PROPER SAMPLECOLLECTION, HANDLING, AND STORAGE. [id number] 06:13:00* Test Item Value Reference Range Interpretation Comme nts GLUBED (test code = GLUBED) 243 mg/dL 65-110 H [id number] 20:53:00* Test Item Value Reference Range Interpretation Comme nts GLUBED (test code = GLUBED) 249 mg/dL 65-110 H [id number] 15:22:00* Test Item Value Reference Range Interpretation Comme nts GLUBED (test code = GLUBED) 153 mg/dL 65-110 H [id number] 06:27:00* Test Item Value Reference Range Interpretation Comme nts GLUBED (test code = GLUBED) 212 mg/dL 65-110 H [id number] 21:01:00* Test Item Value Reference Range Interpretation Comme nts GLUBED (test code = GLUBED) 232 mg/dL 65-110 H [id number] 14:55:00* Test Item Value Reference Range Interpretation Comme nts GLUBED (test code = GLUBED) 178 mg/dL 65-110 H [id number] 05:27:00* Test Item Value Reference Range Interpretation Comme nts GLUBED (test code = GLUBED) 223 mg/dL 65-110 H [id number] 22:43:00* Test Item Value Reference Range Interpretation Comme nts GLUBED (test code = GLUBED) 213 mg/dL 65-110 H [id number] 19:59:00* Test Item Value Reference Range Interpretation Comme nts FERRITIN (test code = BILLIE) 63.3 NG/ML 6.24-137 N (Hit ENTER to Con't) .TOTAL IRON BINDING [id number] 19:59:00* Test Item Value Reference Range Interpretation Comme nts SERUM IRON (test code = IRON) 129 MCG/DL 37-170 TOTAL IRON BINDING CAPACITY (test code = TIBC) 634 MCG/DL 265-497 H IRON SATURATION (test code = FESAT) 20 % 12-57 (Hit ENTER to Con't) .[id number] 19:59:00* Test Item Value Reference Range Interpretation Comme nts FERRITIN (test code = BILLIE) 63.3 NG/ML 6.24-137 (Hit ENTER to Con't) .FE W/TOTAL IRON BINDING CAP.2022-11-23 19:24:00* Test Item Value Reference Range Interpretation Comme [facility] SERUM IRON (test code = IRON) 129 MCG/DL 37-170 N TOTAL IRON BINDING CAPACITY (test code = TIBC) 634 MCG/DL 265-497 H IRON SATURATION (test code = FESAT) 20 % 12-57 N (Hit ENTER to Con't) .[id number] 15:06:00* Test Item Value Reference Range Interpretation Comme nts GLUBED (test code = GLUBED) 198 mg/dL 65-110 H RUBELLA [id number] 14:51:00* Test Item Value Reference Range Interpretation Comme [facility] RUBELLA SCREEN (test code = RUBSC) 8.2 IUnit/ml Samples with a value >= 5.0 IUnits/mL and <=9.9 IUnits/mL are considered equivocal for IgG antibodies to rubella virus. Obtain a new specimen and retest. B-TYPE NATRIURETIC [id number] 14:41:00* Test Item Value Reference Range Interpretation Comme nts B-TYPE NATRIURETIC PEPTIDE ( test code = BNP) 0.38 pg/mL 0-100 N THYROID STIMULATING [id number] 14:39:00* Test Item Value Reference Range Interpretation Comme nts THYROID STIMULATING HORMONE (test code = TSH) 2.13 0.36-3.74 N Test Performed i n [employer] Units/mL [id number] 06:26:00* Test Item Value Reference Range Interpretation Comme nts GLUBED (test code = GLUBED) 156 mg/dL 65-110 H UR PROTEIN/CREATININE [id number] 17:22:00* Test Item Value Reference Range Interpretation Comme nts UR PROTEIN RANDOM (test code = PROTU) 30.4 mg/dL No reference range available UR CREATININE RANDOM (test code = CREATU) 135.6 mg/dL No referenc e range available PROTEIN/CREATININE RATIO (test code = P/CRATIO) 224.1 mg/gcrea <200 H UA RFLX MICR CULT IF [id number] 16:13:00* Test Item Value Reference Range Interpretation [...] culture: Dysuria/FrequencySpecimen Description: CLEAN CATCH COMPREHENSIVE METABOLIC [id number] 16:08:00* Test Item Value Reference Range Interpretation [...] thepatient's age is <18 years. CBC W/AUTO [id number] 15:09:00* Test Item Value Reference Range Interpretation [...] REQUIRED (test code = PLTMR) NORMAL NORMAL [id number] 08:58:00* Test Item Value Reference Range Interpretation Comme nts GLUBED (test code = GLUBED) 125 mg/dL 65-110 H [id number] 00:09:00* Test Item Value Reference Range Interpretation Comme nts GLUBED (test code = GLUBED) 99 mg/dL 65-110 N [id number] 21:10:00* Test Item Value Reference Range Interpretation Comme nts GLUBED (test code = GLUBED) 251 mg/dL 65-110 H Phsician Notifie d [id number] 15:42:00* Test Item Value Reference Range Interpretation Comme nts GLUBED (test code = GLUBED) 163 mg/dL 65-110 H [id number] 12:05:00* Test Item Value Reference Range Interpretation Comme nts GLUBED (test code = GLUBED) 196 mg/dL 65-110 H [id number] 20:44:00* Test Item Value Reference Range Interpretation Comme nts GLUBED (test code = GLUBED) 162 mg/dL 65-110 H [id number] 15:08:00* Test Item Value Reference Range Interpretation Comme nts GLUBED (test code = GLUBED) 96 mg/dL 65-110 N [id number] 06:10:00* Test Item Value Reference Range Interpretation Comme nts GLUBED (test code = GLUBED) 133 mg/dL 65-110 H [id number] 20:09:00* Test Item Value Reference Range Interpretation Comme nts GLUBED (test code = GLUBED) 228 mg/dL 65-110 H [id number] 15:13:00* Test Item Value Reference Range Interpretation Comme nts C-PEPTIDE (test code = CPEP) 1.5 ng/mL 1.1-4.4 C-Peptide refere nce interval is for fasting patients.Performed At: [address] [id number] Kyle L MD Ph:[phone] [id number] 14:58:00* Test Item Value Reference Range Interpretation Comme nts GLUBED (test code = GLUBED) 124 mg/dL 65-110 H [id number] 10:14:00* Test Item Value Reference Range Interpretation Comme nts FRUCTOSAMINE (test code = FRUC) 198 umol/L 0-285 Published refere nce interval for apparently healthysubjects between age 20 and 60 is 205 - 285 umol/L and in apoorly controlled diabetic population is 228 - 563 umol/Lwith a mean of 396 umol/L.Performed At: [address] [id number] Montalvo MD Ph:[phone] [id number] 10:14:00* Test Item Value Reference Range Interpretation Comme nts INSULIN (test code = INS) 37.3 uIU/mL 2.6-24.9 H Performed At: [facility] [id number] [place], [place] [id number] Chencho Montalvo MD Ph:[phone] [id number] 06:54:00* Test Item Value Reference Range Interpretation Comme nts GLUBED (test code = GLUBED) 138 mg/dL 65-110 H [id number] 21:30:00* Test Item Value Reference Range Interpretation Comme nts GLUBED (test code = GLUBED) 175 mg/dL 65-110 H [id number] 15:05:00* Test Item Value Reference Range Interpretation Comme nts GLUBED (test code = GLUBED) 155 mg/dL 65-110 H [id number] 11:08:00* Test Item Value Reference Range Interpretation Comme nts GLUBED (test code = GLUBED) 90 mg/dL 65-110 N [id number] 06:38:00* Test Item Value Reference Range Interpretation Comme nts GLUBED (test code = GLUBED) 175 mg/dL 65-110 H UR CREATININE CLEARANCE [id number] 00:38:00* Test Item Value Reference Range Interpretation Comme nts CREATININE CLEARANCE RESULT (test code = CREATCLR) 164 ml/min 70-120 H CREATININE (test code = CREAT) 0.6 mg/dL 0.5-1.0 N UR CREATININE RANDOM (test c ode = CREATU) 54.7 mg/dL UR VOLUME (test code = VOL) 2600 ML UR PROTEIN [id number] 00:38:00* Test Item Value Reference Range Interpretation Comme nts UR PROTEIN RANDOM (test code = PROTU) 21.3 mg/dL UR PROTEIN 24HR (test code = DDJI44T) 554 mg/24HR 20-150 HH RESULTS CALLED Janet MICHELLE.READ BACK & CONFIRMED? YES.BY FDeisyLAB.LGL0 11/18/22 0037.Units for 24 HR Urine Protein have changed: New Units = MG/24HR UR PROTEIN/CREATININE [id number] 23:35:00* Test Item Value Reference Range Interpretation Comme nts UR PROTEIN RANDOM (test code = PROTU) 21.3 mg/dL UR CREATININE RANDOM (test code = CREATU) 54.7 mg/dL PROTEIN/CREATININE RATIO (te st code = P/CRATIO) 389.3 mg/gcrea <200 H [id number] 22:32:00* Test Item Value Reference Range Interpretation Comme nts GLUBED (test code = GLUBED) 186 mg/dL 65-110 H [id number] 19:15:00* Test Item Value Reference Range Interpretation Comme nts GLUBED (test code = GLUBED) 259 mg/dL 65-110 H [id number] 16:59:00* Test Item Value Reference Range Interpretation Comme nts GLUBED (test code = GLUBED) 191 mg/dL 65-110 H [id number] 15:49:00* Test Item Value Reference Range Interpretation Comme nts GLUBED (test code = GLUBED) 234 mg/dL 65-110 H [id number] 12:03:00* Test Item Value Reference Range Interpretation Comme nts GLUBED (test code = GLUBED) 185 mg/dL 65-110 H [id number] 06:41:00* Test Item Value Reference Range Interpretation Comme nts GLUBED (test code = GLUBED) 291 mg/dL 65-110 H Feed, repeat 1 h r [id number] 19:32:00* Test Item Value Reference Range Interpretation Comme nts GLUBED (test code = GLUBED) 277 mg/dL 65-110 H [id number] 15:47:00* Test Item Value Reference Range Interpretation Comme nts GLUBED (test code = GLUBED) 247 mg/dL 65-110 H COMPREHENSIVE METABOLIC [id number] 13:04:00* Test Item Value Reference Range Interpretation [...] code = ALKP) 99 units/L 46-116 N [id number] 12:24:00* Test Item Value Reference Range Interpretation Comme nts GLUBED (test code = GLUBED) 222 mg/dL 65-110 H CBC W/AUTO [id number] 12:23:00* Test Item Value Reference Range Interpretation [...] PLTMR) ABNORMAL NORMAL PLT CLUMPS UR PROTEIN/CREATININE [id number] 11:47:00* Test Item Value Reference Range Interpretation Comme nts UR PROTEIN RANDOM (test code = PROTU) 36.1 mg/dL UR CREATININE RANDOM (test code = CREATU) 57.7 mg/dL PROTEIN/CREATININE RATIO (te st code = P/CRATIO) 625.6 mg/gcrea <200 H [id number] 10:40:00* Test Item Value Reference Range Interpretation Comme nts GLUBED (test code = GLUBED) 198 mg/dL 65-110 H [id number] 03:06:00* Test Item Value Reference Range Interpretation Comme nts GLUBED (test code = GLUBED) 188 mg/dL 65-110 H [id number] 22:45:00* Test Item Value Reference Range Interpretation Comme nts GLUBED (test code = GLUBED) 258 mg/dL 65-110 H Feed, repeat 1 h r AG HEPATITIS B [id number] 18:27:00* Test Item Value Reference Range Interpretation Comme nts AG HEPATITIS B SURFACE (test code = HBSAG) NONREACTIVE NONREACTIVE AB HEPATITIS C [id number] 18:27:00* Test Item Value Reference Range Interpretation Comme nts AB HEPATITIS C (test code = HCVAB) NONREACTIVE NONREACTIVE SIGNAL TO CUTOFF (test code = CUTOFF) 0.04 <0.80 N AB [id number] 18:27:00* Test Item Value Reference Range Interpretation Comme nts AB TREPONEMA (test code = TREPAB) NONREACTIVE NONREACTIVE AB HIV 1 18:27:00* Test Item Value Reference Range Interpretation Comme nts AB HIV 1 2 (test code = FMT67SG) NONREACTIVE NONREACTIVE Done by [employer] 4th Gen HIV Ag/Ab Combo Screen UR PROTEIN/CREATININE [id number] 17:55:00* Test Item Value Reference Range Interpretation Comme nts UR PROTEIN RANDOM (test code = PROTU) 13.9 mg/dL UR CREATININE RANDOM (test code = CREATU) 37.6 mg/dL PROTEIN/CREATININE RATIO (te st code = P/CRATIO) 369.6 mg/gcrea <200 H [id number] 17:41:00* Test Item Value Reference Range Interpretation Comme nts GLUBED (test code = GLUBED) 136 mg/dL 65-110 H COMPREHENSIVE METABOLIC [id number] 17:33:00* Test Item Value Reference Range Interpretation [...] thepatient's age is <18 years. CBC W/AUTO [id number] 17:14:00* Test Item Value Reference Range Interpretation [...] code = PLTMR) NORMAL NORMAL GLUCOSE BEDSIDE [id number] 13:48:00* Test Item Value Reference Range Interpretation Comme nts GLUCOSE BEDSIDE TESTING (shey t code = GLUBED) 98 MG/DL 70-119 N URIC [id number] 12:39:00* Test Item Value Reference Range Interpretation Comme nts URIC ACID (test code = URIC) 3.3 MG/DL 2.5-6.2 N Results maybe de pressed if patient is taking Metamizole(Dipyrone). LACTIC DEHYDROGENASE(LDH)2022-11-15 12:34:00* Test Item Value Reference Range Interpretation Comme nts LACTIC DEHYDROGENASE(LDH) (t est code = LDH) 204 Unit/L 84-246 N GLUCOSE BEDSIDE [id number] 08:12:00* Test Item Value Reference Range Interpretation Comme nts GLUCOSE BEDSIDE TESTING (shey t code = GLUBED) 80 MG/DL 70-119 N COMPREHENSIVE METABOLIC [id number] 05:58:00* Test Item Value Reference Range Interpretation [...] used to interpret this result as normal/abnormal. [id number] 05:58:00* Test Item Value Reference Range Interpretation Comme nts MAGNESIUM (test code = MAG) 1.7 MG/DL 1.6-2.6 N CBC W/AUTO [id number] 05:32:00* Test Item Value Reference Range Interpretation [...] NRBC#) 0.00 K/mm3 0.0-0.05 N UR PROTEIN [id number] 00:58:00* Test Item Value Reference Range Interpretation Comme nts UR PROTEIN RANDOM (test code = PROTU) 26.9 MG/DL 0.0-12.0 H UR PROTEIN [id number] 00:58:00* Test Item Value Reference Range Interpretation Comme nts UR PROTEIN 24HR (test code = GEDR70K) 619 MG/24HR 0-149 H UR [id number] 00:58:00* Test Item Value Reference Range Interpretation Comme nts UR VOLUME (test code = VOL) 2300 ML 800-2400 N - XR CHEST 1 [id number] 00:00:00 [facility] AM[facility]TA N[place] MA[place] : 1990 Sex: F Patient Name: AMINTA NINO Unit No: [id number] EXAMS: CPT CODE: [id number] XR CHEST1 V 81978 PROCEDURE INFORMATION: Exam: XR Chest Exam date [...] Michelet Franz MD CC: Jak Herrera MD; Carline Wilkerson MD; Martín Terry MD Technologist: Charles Okeefe, RT, CT Trnscrbd D/ (1744) GCD.CPS Orig Print D/T: S: 11/15/2022 (8825) [facility] NAME: AMINTA NINO Radiology Department PHYS: Martín Matamoros [address] : 1990 AGE: 32 SEX: F [place], [place] [address] LOC: Júnior5048 A PHONE#: [phone] EXAM DATE: 11/15/2022 STATUS: ADM IN FAX #: [phone] RAD NO: Page 1 Signed ReportGLUCOSE BEDSIDE [id number] 21:20:00* Test Item Value Reference Range Interpretation Comme nts GLUCOSE BEDSIDE TESTING (shey t code = GLUBED) 98 MG/DL 70-119 N GLUCOSE BEDSIDE [id number] 15:37:00* Test Item Value Reference Range Interpretation Comme nts GLUCOSE BEDSIDE TESTING (shey t code = GLUBED) 222 MG/DL 70-119 H GLUCOSE BEDSIDE [id number] 11:28:00* Test Item Value Reference Range Interpretation Comme nts GLUCOSE BEDSIDE TESTING (shey t code = GLUBED) 238 MG/DL 70-119 H GLUCOSE BEDSIDE [id number] 07:28:00* Test Item Value Reference Range Interpretation Comme nts GLUCOSE BEDSIDE TESTING (shey t code = GLUBED) 178 MG/DL 70-119 H COMPREHENSIVE METABOLIC [id number] 06:01:00* Test Item Value Reference Range Interpretation [...] interpret this result as normal/abnormal. CBC W/AUTO [id number] 05:44:00* Test Item Value Reference Range Interpretation [...] NRBC#) 0.00 K/mm3 0.0-0.05 N GLUCOSE BEDSIDE [id number] 20:17:00* Test Item Value Reference Range Interpretation Comme nts GLUCOSE BEDSIDE TESTING (shey t code = GLUBED) 224 MG/DL 70-119 H UR PROTEIN/CREATININE [id number] 19:58:00* Test Item Value Reference Range Interpretation [...] 6.6 % IS-A1C 4.5-5.6 H GLUCOSE BEDSIDE [id number] 17:32:00* Test Item Value Reference Range Interpretation Comme nts GLUCOSE BEDSIDE TESTING (test code = GLUBED) 229 MG/DL 70-119 H Notified Nu rse~ - US FET BIO PH GA W/O [id number] 16:18:00 [facility] : 1990 Sex: F Patient Name: AMINTA NINO Unit No: [id number] EXAMS: CPT CODE: [id number] US FET BIO PHPR W/O NST 22213 EXAM: - US FET BIO PH GA W/O NST HISTORY: well being 25.6 weeks [...] Misha Forman MD CC: Ronnell Davalos MD; Carline Wilkerson MD Technologist: Thu Gonzales rnscrbd D/ (1618) t.SDR.LJ12 Probe: Orig Print D/T: S: 11/13/2022 (8076) Probe: ADAMARIS Andrade NAME: MICAAMINTA [address] PHYS: Ronnell Abbasi [place] [address] : 1990 AGE: 32 SEX: F LOC: ARELIS Miranda PHONE #: [phone] EXAM DATE: 11/13/2022 STATUS: ADM IN FAX #: [phone] RAD NO: Page 1 Signed ReportB-TYPE NATRIURETIC [id number] 15:31:00* Test Item Value Reference Range Interpretation Comme nts B-TYPE NATRIURETIC PEPTIDE (test code = BNP) < 30.00 PG/ML 0.00-100.00 N TROP-I HIGH [id number] 15:24:00* Test Item Value Reference Range Interpretation [...] and URLs may vary bymethod. BASIC METABOLIC [id number] 15:20:00* Test Item Value Reference Range Interpretation [...] used to interpret this result as normal/abnormal. [id number] 15:17:00* Test Item Value Reference Range Interpretation Comme [facility] D-DIMER (test code = DDIMER) 295 FEUng/mL 0-500 N THE CUT-OFF VALU E FOR EXCLUSION OF VTE = 500 FEU ng/mLNOTE: This method must be used with additional tests in theevaluation of VTE and should not be used to exclude VTE withpretest probability alone. VENOUS BLOOD GAS [id number] 15:12:00* Test Item Value Reference Range Interpretation Comme [facility] VENOUS BLOOD GAS PH (test co de = PHV) 7.41 pH units 7.32-7.42 N VENOUS BLOOD GAS [id number] 15:12:00* Test Item Value Reference Range Interpretation Comme [facility] VENOUS BLOOD GAS PCO2 (test code = PCO2V) 31 mmHg 41-51 L VENOUS BLOOD GAS [id number] 15:12:00* Test Item Value Reference Range Interpretation Comme [facility] VENOUS BLOOD GAS PO2 (test c ode = PO2V) 70 mmHg 25-40 H VBG [id number] 15:12:00* Test Item Value Reference Range Interpretation Comme [facility] VBG HCO3 (test code = HCO3V) 19.7 mmol/L 24-28 L VENOUS BLOOD GAS [id number] 15:12:00* Test Item Value Reference Range Interpretation Comme [facility] VENOUS BLOOD GAS SITE (test code = SITEV) Venous Site DESCRIPTION CBC W/O [id number] 15:09:00* Test Item Value Reference Range Interpretation Comme [facility] WHITE BLOOD CELL (test code = [...] 9.6 fL 6.8-11.2 N COVID 19 INHOUSE [id number] 15:06:00* Test Item Value Reference Range Interpretation Comme nts COVID 19 INHOUSE AG (test co de = [id number]) Negative Neg UA RFLX MICR CULT IF [id number] 14:52:00* Test Item Value Reference Range Interpretation [...] = UACULT) Crit NOTmet CULT-N/A [facility] Indication for culture: Dysuria/FrequencyUA DESCRIPTION: BLADDER- XR CHEST 1 V 2022-11-13 14:17:00 [facility] CONROEName: AMINTA NINO : 1990 Sex: F FAX: Giovana Davies APRN [place]: St: REG FAX: Carline Ramos MD [phone] Patient Name: AMINTA NINO Unit No: [id number] EXAMS: CPT CODE: [id number] XR CHEST 1 V 14421 Location: EXAM: - XR CHEST 1 V [...] by: Monse Lockhart MD CC: Giovana Davies; Carline Davis MD Dictated Date/Time: 11/13/2022 (141)Technologist: Bryan Vaz Transcribed Date/Time: 11/13/2022 (141) By: Zena Orig Print D/T: S: 11/13/2022 (2140) ADAMARIS Andrade NAME: SHANNON NINO[address] PHYS: CAMRA01 - Giovana Davies, [place] [address] : 1990 AGE: 32 SEX: F LOC: B.ERS PHONE #: [phone] EXAM DATE: 11/13/2022 STATUS: REG ER FAX #: [phone] RAD NO: DC Dt: PAGE 1 Signed ReportBETA HCG [id number] 23:43:00* Test Item Value Reference Range Interpretation Comme nts BHCG II (test code = BHCGII) 58581.0 mIU/L 0.0-4.8 H A NEW EXPANDED M [...] IU/L GESTATIONAL AGE: 1-10 weeks 63.70 - 613389.00 IU/L 11-15 weeks 18544.00 - 313159.00 IU/L 16-22 weeks 9383.80 - 71450.00 IU/L 23-40 weeks 1737.20 - 96562.00 IU/L Detection of very Low Levels of hCG does not exclude . Repeat testing after 48 Hrs. is recommended. THIS ASSAY SHOULD NOT BE USED TO DIAGNOSE ANY CONDITION UNRELATED TO . [id number] 23:27:00* Test Item Value Reference Range Interpretation Comme nts Rh (test code = RH) Positive Weak D (Du) (test code = DU) N/A [id number] 23:27:00* Test Item Value Reference Range Interpretation Comme nts ABO Blood Type (test code = ABO) A STLMLPREGNANCY TEST, Serum [id number] 23:14:00* Test Item Value Reference Range Interpretation Comme nts (Serum) (test code = PREGS) Positive Negative A STLMLCBC WITH AUTO [id number] 23:02:00* Test Item Value Reference Range Interpretation [...] % 0.0-0.4 H STLMLURINALYSIS WITH REFLEX TO [id number] 22:51:00* Test Item Value Reference Range Interpretation Comme nts Color (test code = UCOLR) Yellow Clarity (test code = UCLAR) Clear Glucose (test code = UGLUC) 100 NEGATIVE A Bilirubin (test code = UBILI) NEGATIVE NEGATIVE N Ketones (test code = UKET) NEGATIVE NEGATIVE N Specific [place] (test code = USPGR) 1.010 1.005-1.030 A Blood (test code = UBLD) NEGATIVE NEGATIVE N PH (test code = UPH) 7.0 4.5-8.0 A Protein (test code = UPROT) NEGATIVE NEGATIVE N Urobilinogen (test code = U UROB) 2.0 See_Comment A [Automated Getyooa ge] The system which generated this result [...] None Seen None Seen N STLMLGLUCOSE BEDSIDE [id number] 08:05:00* Test Item Value Reference Range Interpretation Comme nts GLUCOSE BEDSIDE TESTING (shey t code = GLUBED) 126 MG/DL 70-119 H GLUCOSE BEDSIDE [id number] 20:34:00* Test Item Value Reference Range Interpretation Comme nts GLUCOSE BEDSIDE TESTING (shey t code = GLUBED) 163 MG/DL 70-119 H GLUCOSE BEDSIDE [id number] 15:27:00* Test Item Value Reference Range Interpretation Comme nts GLUCOSE BEDSIDE TESTING (shey t code = GLUBED) 174 MG/DL 70-119 H GLUCOSE BEDSIDE [id number] 11:20:00* Test Item Value Reference Range Interpretation Comme nts GLUCOSE BEDSIDE TESTING (shey t code = GLUBED) 115 MG/DL 70-119 N GLUCOSE BEDSIDE [id number] 07:50:00* Test Item Value Reference Range Interpretation Comme nts GLUCOSE BEDSIDE TESTING (shey t code = GLUBED) 88 MG/DL 70-119 N GLUCOSE BEDSIDE [id number] 00:15:00* Test Item Value Reference Range Interpretation Comme nts GLUCOSE BEDSIDE TESTING (shey t code = GLUBED) 182 MG/DL 70-119 H GLUCOSE BEDSIDE [id number] 20:50:00* Test Item Value Reference Range Interpretation Comme nts GLUCOSE BEDSIDE TESTING (shey t code = GLUBED) 320 MG/DL 70-119 H COMPREHENSIVE METABOLIC [id number] 18:58:00* Test Item Value Reference Range Interpretation [...] as normal/abnormal. UA RFLX MICR CULT IF [id number] 18:47:00* Test Item Value Reference Range Interpretation [...] for culture: Dysuria/FrequencyUA DESCRIPTION: CLEAN CATCHCBC W/AUTO [id number] 18:38:00* Test Item Value Reference Range Interpretation [...] 0.0-0.05 N UA RFLX MICR CULT IF [id number] 18:31:00* Test Item Value Reference Range Interpretation [...] = UACULT) Crit NOTmet CULT-N/A Criteria [facility] Indication for culture: RiskForSepsis-no oth srcUA DESCRIPTION: CLEAN CATCH GLUCOSE BEDSIDE [id number] 18:14:00* Test Item Value Reference Range Interpretation Comme nts GLUCOSE BEDSIDE TESTING (shey t code = GLUBED) 221 MG/DL 70-119 H - XR SHOULDER 2 + V [id number] 17:23:00 [facility] CONRO[facility]: MICA AMINTA BANEGAS : 1990 Sex: F FAX: Carline Ramos MD [phone] [place]: St: [facility] FAX: Renita Winters MD [phone] Patient Name: AMINTA NINO MAKENZIE Unit No: [id number] EXAMS: CPT CODE: [id number] XR SHOULDER 2 + V RT [address]19 Location: C3 EXAM: - XR SHOULDER 2 [...] linear lucency along the lateral aspect of thehumeral head, favored to represent a vascular channel. A subtle, nondisplaced, hairline fracture is thought to be unlikely, but would be difficult to completely exclude on the basis of this imaging.Consider correlation with point tenderness. 2. No other acute bony abnormality. at 1723 Reported and signed by: Pasha Agrawal MD CC: Carline Wilkerson MD; Renita Ballard MD Dictated Date/Time: 08/10/2022 (1722)Technologist: ESTEFANI RAMIREZ Transcribed Date/Time: 08/10/2022 (1722) By: [email or web address] Orig Print D/T: S: 08/10/2022 (1726) [facility] NAME: AMINTA NINO [address] PHYS: TEDDY. Renita Ballard MD [place], [place] [address] : 1990 AGE: 32 SEX: F LOC: [facility]USH PHONE #: [phone] EXAM DATE: 08/10/2022 STATUS: REG ER FAX #: [phone] RAD NO: DC Dt: PAGE 1 Signed ReportGLUCOSE BEDSIDE [id number] 15:43:00* Test Item Value Reference Range Interpretation Comme nts GLUCOSE BEDSIDE TESTING (shey t code = GLUBED) 320 MG/DL 70-119 H HCG SERUM [id number] 15:09:00* Test Item Value Reference Range Interpretation Comme nts HCG SERUM QUAL (test code = HCGQL) Positive SCREEN NEG A TROP-I HIGH [id number] 14:57:00* Test Item Value Reference Range Interpretation [...] and URLs may vary bymethod. BASIC METABOLIC [id number] 14:49:00* Test Item Value Reference Range Interpretation [...] used to interpret this result as normal/abnormal. [id number] 14:49:00* Test Item Value Reference Range Interpretation Comme nts MAGNESIUM (test code = MAG) 1.8 MG/DL 1.6-2.6 N CBC W/O [id number] 14:36:00* Test Item Value Reference Range Interpretation [...] ode = MPV) 9.3 fL 6.8-11.2 N [id number] 14:32:00* Test Item Value Reference Range Interpretation Comme [facility] MODALITY (test code = MOD) RA COMMENT DESCRIPTION VENOUS BLOOD GAS [id number] 14:32:00* Test Item Value Reference Range Interpretation Comme [facility] VENOUS BLOOD GAS PH (test co de = PHV) 7.40 pH units 7.32-7.42 N VENOUS BLOOD GAS [id number] 14:32:00* Test Item Value Reference Range Interpretation Comme [facility] VENOUS BLOOD GAS PCO2 (test code = PCO2V) 39 mmHg 41-51 L VENOUS BLOOD GAS [id number] 14:32:00* Test Item Value Reference Range Interpretation Comme [facility] VENOUS BLOOD GAS PO2 (test c ode = PO2V) 42 mmHg 25-40 H VBG [id number] 14:32:00* Test Item Value Reference Range Interpretation Comme [facility] VBG HCO3 (test code = HCO3V) 23.9 mmol/L 24-28 L VENOUS BLOOD GAS [id number] 14:32:00* Test Item Value Reference Range Interpretation Comme [facility] VENOUS BLOOD GAS SITE (test code = SITEV) Venous Site DESCRIPTION GLUCOSE BEDSIDE [id number] 13:47:00* Test Item Value Reference Range Interpretation Comme [facility] GLUCOSE BEDSIDE TESTING (shey t code = GLUBED) 320 MG/DL 70-119 H HEPATIC FUNCTION [id number] 17:12:00* Test Item Value Reference Range Interpretation Comme [facility] TOTAL PROTEIN (test code = PROT) [...] ALKP) 83 Unit/L 45-117 N Specimen comments: [id number] 17:12:00* Test Item Value Reference Range Interpretation Comme [facility] LIPASE (test code = LIP) 134 Unit/L 114-286 N Specimen comments: [facility] [id number] 17:12:00* Test Item Value Reference Range Interpretation Comme [facility] HCG SERUM (test code = HCG) [address] mi-IU/ML 0-3 H HCG RANGES JUS Olivo NORMAL PREGNANCYPOST LMP 3-4 WEEKS 9 - 130 MIU/ML4-5 WEEKS 75 - 2,600 MIU/ML5-6 WEEKS 850 - 20,800 MIU/ML6-7 WEEKS 4,000 - 100,200 MIU/ML7-12 WEEKS 11,500 - 289,000 MIU/ML12-16 WEEKS 18,300 - 137,000 MIU/ML16-29 WEEKS 1,400 - 53,000 MIU/ML 29-41 WEEKS 940 - 60,000 MIU/ML Specimen comments: BASIC METABOLIC [id number] 17:12:00* Test Item Value Reference Range Interpretation [...] Specimen comments: ccUA RFLX MICR CULT IF [id number] 16:47:00* Test Item Value Reference Range Interpretation [...] UACULT) Crit NOTmet CULT-N/A Criteria Cult byW Specimen comments: ccIndication for culture: Suprapubic PainUA DESCRIPTION: CLEAN CATCHCBC W/O [id number] 16:40:00* Test Item Value Reference Range Interpretation [...] Specimen comments: cc- US PREG EVAL 1ST [id number] 16:25:00 [facility] CON[facility]EName: AMINTA NINO : 1990 Sex: F Patient Name: AMINTA NINO Unit No: [id number] EXAMS: CPT CODE: [id number] US PREG EVAL 1ST TRIMTR 86942 EXAM: - US PREG UT TRANSVAGINAL, - [...] Quinn Ngo MD CC: Andrea Garcia MD; Carline Wilkerson MD Technologist: Alba Sorto Trnscrbd D/ (5) [email or web address] Probe: Orig Print D/T: S: 08/07/2022 (5310) Probe: ADAMARIS Andrade NAME: FOSTERVINCENT MCGARRYAMINTARASHEEDA [facility] PHYS: Andrea Carrion MD [address] [place] [address] : 1990 AGE: 32 SEX: Glo [place], [place] [address] LOC: [facility]USH PHONE #: [phone] EXAM DATE:08/07/2022 STATUS: REG ER FAX #: [phone] RAD NO: Page 1 Signed Report- US PREG UT [id number] 16:25:00 [facility] CONROEName: SHANNON NINOBLAISE BANEGAS : 1990 Sex: F Patient Name: AMINTA INNO Unit No: [id number] EXAMS: CPT CODE: [id number] US PREG UT TRANSVAGINAL 89295 EXAM: - US PREG UT TRANSVAGINAL, - [...] documented by pulse wave Doppler. No adnexal mass seen. No free fluid seen in the pelvis. IMPRESSION: There is a single live intrauterine seen at 11 weeks 6 days gestation. Please refer to the findings section for additional details. at 1625 Reported and signed by: Quinn Ngo, [facility]: Carline Wilkerson MD; Lydia HECK Technologist: Alba Sorto Trnscrbd D/ (3472) [email or web address] Probe: [id number] Orig Print D/T: S: 08/07/2022 (7418) Probe: ADAMARIS Andrade NAME: AMINTA NINO [address] PHYS: Lydia [place], [place] [address] : 1990 AGE: 32 SEX: F LOC: B.ERS PHONE #: [phone] EXAM DATE: 08/07/2022STATUS: REG ER FAX #: [phone] RAD NO: Page 1 Signed ReportGLUCOSE BEDSIDE TESTING 2022-08-07 15:47:00* Test Item Value Reference Range Interpretation Comme nts GLUCOSE BEDSIDE TESTING (shey t code = GLUBED) 264 MG/DL 70-119 H [id number] 23:10:00* Test Item Value Reference Range Interpretation [...] use a race coefficient. STLMLCBC WITH AUTO [id number] 23:02:00* Test Item Value Reference Range Interpretation [...] % 0.0-0.4 H STLMLURINALYSIS WITH REFLEX TO [id number] 22:51:00* Test Item Value Reference Range Interpretation Comme nts Color (test code = UCOLR) Yellow Clarity (test code = UCLAR) Clear Glucose (test code = UGLUC) >=1000 NEGATIVE A Bilirubin (test code = UBILI) NEGATIVE NEGATIVE N Ketones (test code = UKET) TRACE NEGATIVE A Specific [place] (test code = USPGR) 1.015 1.005-1.030 A Blood (test code = UBLD) NEGATIVE NEGATIVE N PH (test code = UPH) 7.0 4.5-8.0 A Protein (test code = UPROT) NEGATIVE NEGATIVE N Urobilinogen (test code = U UROB) 1.0 See_Comment A [Automated messa ge] The system which generated this result transmitted reference range: 0.2. The reference range was not used to interpret this result as normal/abnormal. Nitrite (test code = UNITR) NEGATIVE NEGATIVE N Leukocyte Esterase (test code = ULEUK) NEGATIVE NEGATIVE N STLMLCULTURE, [id number] 09:22:00Specimen: Urine SpecimensCollected: 07/20/2022 18:53 Status: Final Last Updated: 07/22/2022 09:22 CULTURE (Final) (Final) >100,000 cc/mL Streptococcus species Few Mixed Body Lali Also Isolated Isolate (Final) (Final) Streptococcus agalactiae This organism may be significant in women of childbearing age due tothe occurance of meningitis.STLMLBETA HCG [id number] 19:32:00* Test Item Value Reference Range Interpretation Comme nts BHCG II (test code = BHCGII) 82058.0 mIU/L 0.0-4.8 H A NEW EXPANDED M [...] IU/L GESTATIONAL AGE: 1-10 weeks 63.70 - 991051.00 IU/L 11-15 weeks 67524.00 - 461524.00 IU/L 16-22 weeks 9383.80 - 91638.00 IU/L 23-40 weeks 1737.20 - 75463.00 IU/L Detection of very Low Levels of hCG does not exclude . Repeat testing after 48 Hrs. is recommended. THIS ASSAY SHOULD NOT BE USED TO DIAGNOSE ANY CONDITION UNRELATED TO . [id number] 19:22:00* Test Item Value Reference Range Interpretation Comme nts ABO Blood Type (test code = ABO) A [id number] 19:21:00* Test Item Value Reference Range Interpretation Comme nts Rh (test code = RH) Positive Weak D (Du) (test code = DU) N/A [id number] 19:20:00* Test Item Value Reference Range Interpretation [...] a race coefficient. STLMLURINALYSIS WITH REFLEX TO [id number] 19:01:00* Test Item Value Reference Range Interpretation Comme nts Color (test code = UCOLR) Yellow Clarity (test code = UCLAR) Cloudy Glucose (test code = UGLUC) 250 NEGATIVE A Bilirubin (test code = UBILI) NEGATIVE NEGATIVE N Ketones (test code = UKET) TRACE NEGATIVE A Specific [place] (test code = USPGR) 1.015 1.005-1.030 A [...] A value of TNTC was entered by Fengxiafei on 07/20/2022 19:01 RBC (test code = RBCUR) None Seen 0-5 A No previous valu e was reported. A value of None Seen was entered by Fengxiafei on 07/20/2022 19:01 Epithial Cells (test code = U EPI) TNTC 0-10 A No previous value was reported. A value of TNTC was entered by Fengxiafei on 07/20/2022 19:01 Mucous (test code = UMUC) Trace None Seen A No previous valu e was reported. A value of Trace was entered by Fengxiafei on 07/20/2022 19:01 Bacteria (test code = UBACT) 2+ None Seen,Trace A No previous valu e was reported. A value of 2+ was entered by Fengxiafei on 07/20/2022 19:01 Urine Misc (test code = UR MISC) Few Trichomonas Vaginalis None Seen A No previous value was reported. A value of Few Trichomonas Vaginalis was entered by Fengxiafei on 07/20/2022 19:01 STLMLCBC WITH AUTO [id number] 18:50:00* Test Item Value Reference Range Interpretation [...] 0.0-0.4 H STLMLUA RFLX MICR CULT IF [id number] 19:56:00* Test Item Value Reference Range Interpretation [...] /HPF None A Indication for culture: RiskForSepsis-no [facility] srcSOURCE OF URINE: CLEAN CATCH BASIC METABOLIC [id number] 19:35:00* Test Item Value Reference Range Interpretation [...] < 15 Index/DL 0-100 N CBC W/AUTO [id number] 19:23:00* Test Item Value Reference Range Interpretation [...] 0.03 x10 3/uL 0.0-0.1 N URINALYSIS WITH [id number] 19:46:00* Test Item Value Reference Range Interpretation Comme nts Color (test code = UCOLR) Yellow Clarity (test code = UCLAR) Sl Cloudy Glucose (test code = UGLUC) >=1000 NEGATIVE A Bilirubin (test code = UBILI) NEGATIVE NEGATIVE N Ketones (test code = UKET) >=80 NEGATIVE A Specific [place] (test code = USPGR) 1.010 1.005-1.030 A Blood (test code = UBLD) NEGATIVE NEGATIVE N PH (test code = UPH) 6.0 4.5-8.0 A Protein (test code = UPROT) NEGATIVE NEGATIVE N Urobilinogen (test code = U UROB) 0.2 See_Comment N [Automated Getyooa ge] The system which generated this result [...] UBACT) 1+ None Seen,Trace A STLMLBETA HCG [id number] 19:45:00* Test Item Value Reference Range Interpretation [...] IU/L GESTATIONAL AGE: 1-10 weeks 63.70 - 530771.00 IU/L 11-15 weeks 07823.00 - 136994.00 IU/L 16-22 weeks 9383.80 - 22019.00 IU/L 23-40 weeks 1737.20 - 56647.00 IU/L Detection of very Low Levels of hCG does not exclude . Repeat testing after 48 Hrs. is recommended. THIS ASSAY SHOULD NOT BE USED TO DIAGNOSE ANY CONDITION UNRELATED TO . STLMLPREGNANCY TEST, Urine [id number] 19:24:00* Test Item Value Reference Range Interpretation Comme [facility] (Urine) (test code = PREGU) Positive If a specimen is collected by a nurse, then you MUST fill out the Collected and Collected By snyder [id number] 19:16:00* Test Item Value Reference Range Interpretation [...] use a race coefficient. STLMLCBC WITH AUTO [id number] 18:47:00* Test Item Value Reference Range Interpretation [...] % 0.0-0.4 STLMLParathyrin.intact [Mass/volume] in Serum or [id number] 00:00:00* Test Item Value Reference Range Interpretation Comme nts PTH (test code = PTH) 32.00 pg/mL 15.00-65.00 [facility] Iron binding capacity panel - Serum or [id number] 00:00:00* Test Item Value Reference Range Interpretation Comme nts iron (test code = iron) 93 ug/dL 37-145 UIBC (test code = UIBC) 313 ug/dL 112-347 TIBC (test code = TIBC) 406.0 [facility] MedicalMagnesium [Mass/volume] in Serum or [id number] 00:00:00* Test Item Value Reference Range Interpretation Comme nts magnesium (test code = magnesium) 1.9 mg/dL 1.6-2.6 [facility] MedicalCancer Ag 125 [Units/volume] in Serum or [id number] 00:00:00 * Test Item Value Reference Range Interpretation Comme nts CA-125 (test code = CA-125) 35.6 U/mL 6.4-38.1 [facility] MedicalProlactin [Mass/volume] in Serum or [id number] 00:00:00* Test Item Value Reference Range Interpretation Comme nts prolactin (test code = prolactin) 11.5 NG/mL 4.8-23.3 [facility] Medicalthyroid panel, [id number] 00:00:00* Test Item Value Reference Range Interpretation Comme nts TSH (test code = TSH) 1.390 uIU/mL 0.178-4.530 free T4 (test code = free T4) 1.27 NG/dL 0.80-1.73 total T4 (test code = total T4) 10.7 ug/dL 4.9-11.9 T-uptake (test code = T-uptake) 1.2 tbi 0.8-1.3 [facility] MedicalProgesterone Free [Mass/volume] in Serum or Fpmjnz6613-15-93 00:00:00* Test Item Value Reference Range Interpretation Comme nts progesterone (test code = progesterone) 12.00 NG/mL [facility] Sxwilgv02-Uruaitsrcqadmr D3+25-Hydroxyvitamin D2 [Mass/volume] in Serum or [id number] 00:00:00* Test Item Value Reference Range Interpretation Comme nts vitamin D III (test code = v itamin D III) 26.1 NG/mL 32.0-100.0 L [facility] Hospital[facility]Cyanocobalamin [Interpretation] in Serum or [id number] 00:00:00* Test Item Value Reference Range Interpretation Comme [facility] folate (test code = folate) 23.90 NG/mL 2.00-20.00 H vitamin B12 (test code = vit mejias B12) 775.0 pg/mL 200.0-900.0 [facility] HospitalWdtzwgaWNB0639-31-63 16:28:00* Test Item Value Reference Range Interpretation [...] use a race coefficient. STLMLCBC WITH AUTO [id number] 16:06:00* Test Item Value Reference Range Interpretation [...] % 0.0-0.4 H STLMLURINALYSIS WITH REFLEX TO [id number] 15:47:00* Test Item Value Reference Range Interpretation Comme nts Color (test code = UCOLR) Yellow Clarity (test code = UCLAR) Hazy Glucose (test code = UGLUC) >=1000 NEGATIVE A Bilirubin (test code = UBILI) NEGATIVE NEGATIVE N Ketones (test code = UKET) >=80 NEGATIVE A Specific [place] (test code = USPGR) 1.010 1.005-1.030 A Blood (test code = UBLD) NEGATIVE NEGATIVE N PH (test code = UPH) 5.5 4.5-8.0 A Protein (test code = UPROT) NEGATIVE NEGATIVE N Urobilinogen (test code = U UROB) 0.2 See_Comment N [Automated Getyooa ge] The system which generated this result [...] 1+ None Seen,Trace A STLMLPREGNANCY TEST, Urine Zfusinubjlx4028-07-85 15:36:00* Test Item Value Reference Range Interpretation Comme nts (Urine) (test code = PREGU) Positive STLMLChoriogonadotropin.beta subunit [Units/volume] in Serum or Zfwtjp8504-00-81 00:00:00* Test Item Value Reference Range Interpretation Comme nts HCG (test code = HCG) 111 mIU/mL [facility] MedicalACETONE SERUM - BHB (IN HOUSE)2022-05-26 16:45:00* Test Item Value Reference Range Interpretation Comme nts ACETONE QUANTITATIVE SERUM ( test code = ACESER) 22.25 mg/dl 0.20-2.81 H [id number] 14:44:00* Test Item Value Reference Range Interpretation [...] a race coefficient. STLMLXR CHEST AP/PA 1 [id number] 14:40:58 [facility])Name: AMINTA NINO : 1990 Sex: FXR CHEST AP/PA 1 VIEW05/26/2022 1:58 PMOrdering Provider: GENOVEVA BRUNERIndication: [id number]: Chest painAdditional history:No additional history.Comparison: NoneFindings: Lung snyder are clear.Heart size is normal..No bone lesions are identified.EKG monitoring wires and clips minimally obscure the underlying structures.Impression: No acute cardiopulmonary process.This final report was electronically signed by Dr Carlos Lindquist MD :35 PMDictated By: CARLOS LINDQUISTDate: 05/26/2022 14:35STLMLURINALYSIS WITH [id number] 13:45:00* Test Item Value Reference Range Interpretation Comme nts Color (test code = UCOLR) Yellow Clarity (test code = UCLAR) Hazy Glucose (test code = UGLUC) 500 NEGATIVE A Bilirubin (test code = UBILI) NEGATIVE NEGATIVE N The value SMALL originally released by [id number] on 05/26/2022 13:45 was changed to NEGATIVE by [id number] on 05/26/2022 13:45 Ketones (test code = UKET) >=80 NEGATIVE A Specific [place] (test code = USPGR) 1.025 1.005-1.030 A [...] Yeast None Seen A STLMLPREGNANCY TEST, Urine Cxtcvmblrcy1118-36-37 13:42:00* Test Item Value Reference Range Interpretation Comme nts (Urine) (test code = PREGU) Negative STLMLCBC WITH AUTO [id number] 13:40:00* Test Item Value Reference Range Interpretation [...] = IG%) 0.4 % 0.0-0.4 STLMLCOMPREHENSIVE METABOLIC [id number] 17:05:00* Test Item Value Reference Range Interpretation [...] < 15 Index/DL 0-100 N HCG SERUM [id number] 17:05:00* Test Item Value Reference Range Interpretation Comme nts HCG SERUM QUAL (test code = HCGQL) NEGATIVE NEGATIVE CBC W/AUTO [id number] 16:24:00* Test Item Value Reference Range Interpretation [...] BA#) 0.03 x10 3/uL 0.0-0.1 N [facility]/NXIZGWLUCOU1200-06-31 14:59:00 [facility] 1990 Sex: F FAX: Colette Panda [phone] [place]: St: REG Name: AMINTA NINO [facility] : 1990 Age/S: 31/F [address] Unit #: [id number] Loc: [place] [address] Phys: Colette Panda Acct: [id number] Dis Date: Status: REG ER PHONE #: [phone] Exam Date: 04/10/2022 1446 FAX#: [phone] Reason: MIKE BREAST, R/O ABSCESS EXAMS: CPT [facility]: [id number] [facility] 15191 Bilateral breast ultrasound 04/10/2022 CLINICAL INDICATION: Breast pain COMPARISON: None LOCATION: W1 TECHNIQUE: Grayscale and color ultrasound of the bilateral breasts was performed. DISCUSSION: No mass, calcification, fluid collection, or abnormal vascularity is evident within either visualizedbreast. IMPRESSION: Unremarkable bilateral breast ultrasound. Advise correlation with mammography to exclude nonvisualized pathology. at 3331 Reported and signed by: Bebeto Montes De Oca MD CC: Colette Panda Technologist: Bhargavi Yun Date/Time/By: 04/10/2022 (8229) : By: [email or web address] PAGE 1 Signed Report FAX: Coeltte Panda [phone] [place]: St: REG Name: AMINTA NINO MAKENZIE [facility] : 1990 Age/S: 31/F [address] Unit #: [id number] Loc: [place] [address] Phys: Colette Panda Acct: [id number] Dis Date: Status: REG ER PHONE #: [phone] Exam Date: 04/10/2022 1446 FAX #: [phone] Reason: MIKE BREAST, R/O ABSCESS EXAMS: CPT CODE: [id number] CHST W/MEDIASTINUM [id number] (Continued) Orig PrintD/T: S: 04/10/2022 (1502) PAGE 2 Signed ReportCULTURE, AEROBIC 2022-03-30 08:32:00MUST order Gram Stain separately WOUNDSSpecimen: VaginalCollected: 03/27/2022 12:38 Status: Final Last Updated: 03/30/2022 08:32 (1) MUST order Gram Stain separately WOUNDS CULTURE (Final) (Final) Many Normal Genital Lali Isolated No Pathogens IsolatedSTLMLGRAM [id number] 11:28:00 Must order gram stain separately with aerobic cultSpecimen: VaginaCollected: 03/27/2022 12:38 Status: Final Last Updated: 03/28/2022 11:28 (1) Must order gram stain separately with aerobic cult GS (Final) (Final) Few Epithelial Cells No WBC's Seen Usual Urogenital Lali Rare YeastSTLMLWET [id number] 13:31:00 Specimen: VaginalCollected: 03/27/2022 12:38 Status: Final Last Updated: 03/27/2022 13:21 WM (Final) (Final) No Clue cells seen. No Trichomonas seen. No yeast cells seen. Moderate epithelial cells and WBCs .STLMLURINALYSIS WITH REFLEX TO [id number] 13:13:00* Test Item Value Reference Range Interpretation Comme nts Color (test code = UCOLR) Straw Clarity (test code = UCLAR) Hazy Glucose (test code = UGLUC) >=1000 NEGATIVE A Bilirubin (test code = UBILI) NEGATIVE NEGATIVE N Ketones (test code = UKET) >=80 NEGATIVE A Specific [place] (test code = USPGR) 1.010 1.005-1.030 A [...] MISC) Rare Yeast cells None Seen A [id number] 13:11:00* Test Item Value Reference Range Interpretation [...] values were called to PINA GOLDSTEIN by [id number] on 03/27/22 13:11 . Results were readback by PINA GOLDSTEIN.STLMLPREGNANCY TEST, Urine [id number] 12:51:00* Test Item Value Reference Range Interpretation Comme nts (Urine) (test code = PREGU) Negative STLMLCBC WITH AUTO [id number] 12:43:00* Test Item Value Reference Range Interpretation [...] H STLMLThyroglobulin Ab [Units/volume] in Serum or [id number] 00:00:00* Test Item Value Reference Range Interpretation Comme nts anti-thyroglobulin (test cod e = anti-thyroglobulin) <20 <40 [facility]2023-01-03 00:00:00* Test Item Value Reference Range Interpretation [...] (test code = E-GFR) 128 mL/min See_Comment [enosiX] The system which generated this result transmitted reference range: >or=60. The reference range was not used to interpret this result as normal/abnormal. E-GFR, (test code = E-GFR, ) 148 mL/min See_Comment [Automated [employer]] The system which generated this result transmitted [...] [facility] MedicalThyroperoxidase Ab [Units/volume] in Serum or [id number] 00:00:00* Test Item Value Reference Range Interpretation Comme nts anti-tpo Ab (test code = anti-tpo Ab) <10 <35 [facility] MedicalUrate [Mass/volume] in Serum or [id number] 00:00:00* Test Item Value Reference Range Interpretation Comme nts uric acid (test code = uric acid) 3.1 mg/dL 2.5-7.9 [facility] MedicalEstrogen [Mass/volume] in Serum or [id number] 00:00:00* Test Item Value Reference Range Interpretation Comme nts estradiol (test code = estradiol) 85.14 pg/mL see below estriol, unconjugated (test code = estriol, unconjugated) <0.1 see below estrone (E1), serum (test co de = estrone (E1), serum) 37.5 pg/mL see below [facility] [id number] 23:55:00* Test Item Value Reference Range Interpretation [...] were called to Kathy Bernal RN by [id number] on 01/01/22 23:55 . Results were read back by Kathy Bernal RN.STLMLURINALYSIS WITH MICROSCOPIC 2022-01-01 23:28:00* Test Item Value Reference Range Interpretation Comme nts Color (test code = UCOLR) Lt. Yellow Clarity (test code = UCLAR) Clear Glucose (test code = UGLUC) >=1000 NEGATIVE A Bilirubin (test code = UBILI) NEGATIVE NEGATIVE N Ketones (test code = UKET) TRACE NEGATIVE A Specific [place] (test code = USPGR) <=1.005 1.005-1.030 A [...] Seen None Seen N STLMLCBC WITH AUTO [id number] 23:19:00* Test Item Value Reference Range Interpretation [...] 0.5 % 0.0-0.4 H STLMLPREGNANCY TEST, Urine [id number] 23:12:00* Test Item Value Reference Range Interpretation Comme nts (Urine) (test code = PREGU) Negative If a specimen is collected by a nurse, then you MUST fill out the Collected and Collected By snyder [facility]2022-04-06 00:00:00* Test Item Value Reference Range Interpretation [...] code = E-GFR) 126 mL/min See_Comment [Automated [employer]] The system which generated this result transmitted reference range: >or=60. The reference range was not used to interpret this result as normal/abnormal. E-GFR, (test code = E-GFR, ) 146 mL/min See_Comment [Automated [employer]] The system which generated this result transmitted [...] <30.0 [facility] MedicalEstrogen [Mass/volume] in Serum or [id number] 00:00:00* Test Item Value Reference Range Interpretation Comme nts estradiol (test code = estradiol) 27.04 pg/mL see below estriol, unconjugated (test code = estriol, unconjugated) <0.1 see below estrone (E1), serum (test co de = estrone (E1), serum) 10.5 pg/mL see below [facility] MedicalThyroglobulin Ab [Units/volume] in Serum or [id number] 00:00:00* Test Item Value Reference Range Interpretation Comme nts anti-thyroglobulin (test cod e = anti-thyroglobulin) <20 <40 [facility] MedicalUrate [Mass/volume] in Serum or [id number] 00:00:00* Test Item Value Reference Range Interpretation Comme nts uric acid (test code = uric acid) 2.8 mg/dL 2.5-7.9 [facility] MedicalThyroperoxidase Ab [Units/volume] in Serum or [id number] 00:00:00* Test Item Value Reference Range Interpretation Comme nts anti-tpo Ab (test code = anti-tpo Ab) <10 <35 [facility] MedicalUrinalysis macro (dipstick) panel - [id number] 15:47:00* Test Item Value Reference Range Interpretation Comme nts Leukocytes (test code = Leukocytes) Negative Nitrite (test code = Nitrite) negative Urobilinogen (test code = Urobilinogen) Normal Protein (test code = Protein) Negative pH (test code = pH) 5.0 Blood (test code = Blood) Small Specific [place] (test code = Specific [place]) 1.010 Ketone (test code = Ketone) Moderate Bilirubin (test code = Bilirubin) Negative Glucose (test code = Glucose) 2000+ Appearance (test code = Appearance) Clear Color (test code = Color) Pale Yellow [facility] MedicalUrate [Mass/volume] in Serum or [id number] 00:00:00* Test Item Value Reference Range Interpretation Comme nts uric acid (test code = uric acid) 5.5 mg/dL 2.5-7.9 [facility] [id number] 00:00:00* Test Item Value Reference Range Interpretation [...] code = E-GFR) 86 mL/min See_Comment [Automated [employer]] The system which generated this result transmitted reference range: >or=60. The reference range was not used to interpret this result as normal/abnormal. E-GFR, (test code = E-GFR, ) 100 mL/min See_Comment [Automated [employer]] The system which generated this result transmitted [...] <30.0 [facility] MedicalEstrogen [Mass/volume] in Serum or [id number] 00:00:00* Test Item Value Reference Range Interpretation Comme nts estradiol (test code = estradiol) 45.45 pg/mL see below estriol, unconjugated (test code = estriol, unconjugated) <0.1 see below estrone (E1), serum (test co de = estrone (E1), serum) 22.6 pg/mL see below [facility] MedicalThyroperoxidase Ab [Units/volume] in Serum or [id number] 00:00:00* Test Item Value Reference Range Interpretation Comme nts anti-tpo Ab (test code = anti-tpo Ab) <10 <35 [facility] MedicalThyroglobulin Ab [Units/volume] in Serum or [id number] 00:00:00* Test Item Value Reference Range Interpretation Comme nts anti-thyroglobulin (test cod e = anti-thyroglobulin) <20 <40 [facility] Ag 125 [Units/volume] in Serum or [id number] 00:00:00 * Test Item Value Reference Range Interpretation Comme nts CA-125 (test code = CA-125) 18.1 U/mL 6.4-38.1 [facility] MedicalProlactin [Mass/volume] in Serum or [id number] 00:00:00* Test Item Value Reference Range Interpretation Comme nts prolactin (test code = prolactin) 9.8 NG/mL 4.8-23.3 [facility] MedicalMagnesium [Mass/volume] in Serum or [id number] 00:00:00* Test Item Value Reference Range Interpretation Comme nts magnesium (test code = magnesium) 1.8 mg/dL 1.6-2.6 [facility] MedicalIron and Iron binding capacity panel - Serum or [id number] 00:00:00* Test Item Value Reference Range Interpretation Comme nts iron (test code = iron) 28 ug/dL 37-145 L UIBC (test code = UIBC) 338 ug/dL 112-347 TIBC (test code = TIBC) 366.0 [facility] MedicalParathyrin.intact [Mass/volume] in Serum or [id number] 00:00:00* Test Item Value Reference Range Interpretation Comme nts PTH (test code = PTH) 14.36 pg/mL 15.00-65.00 L [facility] MedicalFolate+Cyanocobalamin [Interpretation] in Serum or [id number] 00:00:00* Test Item Value Reference Range Interpretation Comme nts folate (test code = folate) 12.28 NG/mL 2.00-20.00 vitamin B12 (test code = vit mejias B12) 689.7 pg/mL 200.0-900.0 [facility] MedicalProgesterone Free [Mass/volume] in Serum or [id number] 00:00:00* Test Item Value Reference Range Interpretation Comme nts progesterone (test code = progesterone) 0.09 NG/mL [facility] Wkjgitp37-Jrcuasldbokdfn D3+25-Hydroxyvitamin D2 [Mass/volume] in Serum or [id number] 00:00:00* Test Item Value Reference Range Interpretation Comme nts vitamin D (test code = vitamin D) 19.6 NG/mL 32.0-100.0 L [facility] Medicalthyroid panel, [id number] 00:00:00* Test Item Value Reference Range Interpretation Comme nts TSH (test code = TSH) 1.380 uIU/mL 0.178-4.530 free T4 (test code = free T4) 1.25 NG/dL 0.80-1.73 total T4 (test code = total T4) 9.8 ug/dL 4.9-11.9 T-uptake (test code = T-uptake) 1.1 tbi 0.8-1.3 [facility] [id number] 03:49:00* Test Item Value Reference Range Interpretation Comme nts LITHIUM (test code = LITH) < 0.2 mmol/L 0.6-1.2 L Drugs identified in Urine by Screen [id number] 00:00:00* Test Item Value Reference Range Interpretation [...] Urine by Confirmatory method (test code = 33615-9) <1 See_Comment [Automated message] The system which generated this result transmitted reference range: >=1. The reference range was not used to interpret this result as normal/abnormal. Amphetamines [Presence] in Urine by Confirmatory method (test code = 79544-6) <100 See_Comment [Automated message] The system which generated this result transmitted reference range: >=100. The reference range was not used to interpret this result as normal/abnormal. Benzodiazepines [Presence] in Urine by Confirmatory method (test code = 00692-1) <50 See_Comment [Automated message] The system which [...] Urine by Confirmatory method (test code = 51759-9) <50 See_Comment [Automated message] The system which generated this result transmitted reference range: >=50. The reference range was not used to interpret this result as normal/abnormal. Opiates [Presence] in Urine by Confirmatory method (test code = 63456-0) <100 See_Comment [Automated message] The system which generated this result transmitted reference range: >=100. The reference range was not used to interpret this result as normal/abnormal. 6-Monoacetylmorphine (6-RACIEL) [Presence] in Urine by Confirmatory method (test code = 88434-0) <10 See_Comment [Automated message] The system which generated this result transmitted reference range: >=10. The reference range was not used to interpret this result as normal/abnormal. Methadone [Presence] in Urine by Confirmatory method (test code = 89225-7) <200 See_Comment [Automated message] The system which generated this result transmitted reference range: >=200. The reference range was not used to interpret this result as normal/abnormal. Meperidine [Presence] in Urine by Confirmatory method (test code = 82018-5) <100 See_Comment [Automated message] The system which generated this result transmitted reference range: >=100. The reference range was not used to interpret this result as normal/abnormal. fentaNYL+Norfentanyl [Presence] in Urine by Confirmatory method (test code = 25066-5) <5 See_Comment [Automated message] The system which generated this result transmitted reference range: >=5. The reference range was not used to interpret this result as normal/abnormal. Carisoprodol+Meprobamate [Presence] in Urine by Screen method (test code = 67528-8) <200 See_Comment [Automated message] The system which generated this result transmitted reference range: >=200. The reference range was not used to interpret this result as normal/abnormal. traMADol [Presence] in Urine by Confirmatory method (test code = 89138-7) <100 See_Comment [Automated message] The system which generated this result transmitted reference range: >=100. The reference range was not used to interpret this result as normal/abnormal. pH of Urine (test code = 2756-5) 5.69 4.5-9.0 Creatinine [Mass/volume] in Urine (test code = 2161-8) 70.5 mg/dL 20-370 Ethanol [Presence] in Urine by Screen method (test code = 73569-5) <10 See_Comment [Automated message] The system which generated this result transmitted reference range: >=10. The reference range was not used to interpret this result as normal/abnormal. Barbiturates [Presence] in Urine by Screen method (test code = 24102-5) <200 See_Comment [Automated message] The system which generated this result transmitted reference range: >=200. The reference range was not used to interpret this result as normal/abnormal. [facility] [id number] 23:14:00* Test Item Value Reference Range Interpretation [...] 38-126 N UA RFLX MICR CULT IF [id number] 22:37:00* Test Item Value Reference Range Interpretation [...] 0.0-0.1 N Notes Date/Time Note Provider Source 2024-10-09 14:35:07 Forms received [facility] Refill Ozempic 1 mg Humalog BRYSON: 02/03/2024 NOV: none Refill denied, per refill policy, needs to schedule follow up Mariela Morgan RN [facility] 2024-10-09 11:21:19 Available refill at pharmacy, no additional refills authorized at this time. Outpatient Medication Detail Disp Refills Start End CEASAR Insulin Glargine (LANTUS SOLOSTAR U-100 INSULIN) 100 unit/mL (3 mL) injection 30 mL 2 07/16/2024 -- No Sig: inject 32 Units under the skin at bedtime. For Lantus: take HALF dose if or if blood glucose 80 - 120 mg/dL, HOLD if less than 80. ANY FURTHER REFILLS WILL BE GIVEN AT NEXT APPOINTMENT. Sent to pharmacy as: Lantus Solostar U-100 Insulin 100 unit/mL (3 mL) subcutaneous pen (Insulin Glargine) Class: eRX Route: Subcutaneous Order: [id number] Date/Time Signed: 07/16/2024 15:57 Esther Carr RN [facility] 2024-08-14 13:44:48 Patient non-compliant with endo appts. Last appointment >6 months ago although patient was instructed to follow up with provider every 3 months. Encouraged patient to make an appt with endo provider, however, patient failed to schedule an appointment. PharmD will sign off at this time given this patient is no longer following with endo clinic. Katie Frank PharmD Pharmacy [facility] [facility] Manager - Family Medicine T [facility] 2024-07-16 15:57:49 1. Type 2 diabetes mellitus without complication, with long-term current use of insulin 2. Uncontrolled type 2 diabetes mellitus with hyperglycemia - Insulin Glargine (LANTUS SOLOSTAR U-100 INSULIN) 100 unit/mL (3 mL) injection; inject 32 Units under the skin at bedtime. For Lantus: take HALF dose if or if blood glucose 80 - 120 mg/dL, HOLD if less than 80. ANY FURTHER REFILLS WILL BE GIVEN AT NEXT APPOINTMENT. Dispense: 30 mL; Refill: 2 - insulin lispro (HUMALOG KWIKPEN INSULIN) 100 unit/mL pen injector; Take 8 units with each meal (patient eats 4 meals a day). For Lispro: Give half dose if patient eats less than half meal OR if blood glucose 80 - 120 mg/dL, HOLD DOSE if BG < 80 . ANY FURTHER REFILLS WILL BE GIVEN AT NEXT APPOINTMENT. Dispense: 30 mL; Refill: 2 - semaglutide (OZEMPIC) 1 mg/dose (4 mg/3 mL) PnIj; inject 1 mg under the skin weekly. ANY FURTHER REFILLS WILL BE GIVEN AT NEXT APPOINTMENT. Dispense: 9 mL; Refill: 2 - metFORMIN 500 mg tablet; Take 1 tablet by mouth in the morning and 1 tablet in the evening. Take with meals. ANY FURTHER REFILLS WILL BE GIVEN AT NEXT APPOINTMENT. Dispense: 180 tablet; Refill: 2 [facility] 2024-07-16 09:25:09 CLINICAL PHARMACY ENDOCRINOLOGY VISIT- 03/22/24 DATE: 07/16/24 Subjective: Aminta Nino is a 34 year old female referred to PharmD by CHELO Cline for medication management of type 2 diabetes. At last visit, patient was instructed to: Change Lantus Solostar (insulin glargine) to 32 units daily at bedtime Change Humalog Kwikpen (insulin lispro) to 8 units with each meal (patient eats 4 meals) If BG 80-120 mg/dL or less than half a meal, give half dose If BG <80 mg/dL, hold dose Continue metformin 500 mg with breakfast and dinner Increase Ozempic to 2 mg weekly At today's clinical pharmacy visit, patient states that she was out of her insulin/Ozempic for a month due to missed appointments. 1. DIABETES Patient reports 15 years duration of Type 2 diabetes. Symptoms of hypoglycemia: [-] Dizziness [-] Fatigue [-] Sweating [-] Nervousness [-] Tachycardia Symptoms of hyperglycemia: [-] Polyuria [-] Polydipsia [-] Polyphagia [-] Visual changes Complications of diabetes: Macrovascular: [-] [place] [-] CABG/PCI/other re-vascularization procedure Microvascular [-] Retinopathy (last eye exam never done) [-] Nephropathy [-] Neuropathy - peripherally (last foot exam 10/28/23) Current DM medication regimen: --NOT CURRENTLY TAKING MEDICATION Lantus Solostar (insulin glargine) 15 units daily at bedtime Humalog Kwikpen (insulin lispro) 9 units 3x/day with meals Patient eats 4 meals a day so takes it 4 times a day Ozempic (semaglutide) 1 mg weekly Metformin 500 mg 2x/day with breakfast and dinner Med compliance [-] see above Previous treatment attempts/failures/adverse reactions: insulin pump (stopped d/t not going back for follow-up visits for refills) Medication Limitations: n/a This visit's SMBG reading: (based on recall) AM (fasting): 200-250 Objective: Past Medical History: Diagnosis Date ADHD (attention deficit hyperactivity disorder) 2002 on meds Bleeding after intercourse 07/20/2016 BV (bacterial vaginosis) 08/12/2015 Diabetes mellitus 2011 on metformin and insulin Hypertension 2022 not on meds ODD (oppositional defiant disorder) 2002 on meds Pap smear abnormality of cervix PTSD (post-traumatic stress disorder) 2002 on meds Prior to Admission medications Medication Sig Start [...] DAILY AT BEDTIME NEEDED 01/10/24 Doctor Unassigned, [place] ARIPiprazole 5 mg tablet Take 1 tablet by mouth at bedtime. 10/18/23 Doctor Unassigned, [place] Blood-Glucose Meter,Continuous (FREESTYLE CURT 3 READER) Misc Use as directed 10/28/23 Helen Truong AGPCNP Blood-Glucose Sensor (FREESTYLE CURT 3 SENSOR) Jenna Use as directed every 2 weeks 10/28/23 Helen Truong, AGPCNP SERTraline 100 mg tablet Take 1 tablet by mouth every morning. 10/18/23 Doctor Unassigned, [place] quetiapine fumarate (SEROQUEL ORAL) Take by mouth. Doctor Unassigned, [place] Allergies Allergen Reactions Latex Swelling Blisters Drug-Drug Interactions: There are no significant drug-drug interactions There is no immunization history on file for this patient. Vaccine history was reviewed. The patient was reminded about the importance of receiving an annual influenza vaccine as indicated. Recent Labs 08/15/23 1455 02/03/24 1101 HGBA1C 12.2* -- [id number] -- 12.3* Assessment: 1. DIABETES Patient NOT controlled to goal A1c of 6-7.0% per ADA guidelines Unable to assess SMBG Patient is non adherent to medications, timely refills, and appointments Medication monitoring: [-] Metformin: eGFR <30mL/min [-] Semaglutide: pancreatitis, severe diabetic retinopathy, macular edema Plan/Recommendations: Restart Lantus Solostar (insulin glargine) 32 units daily at bedtime Restart Humalog Kwikpen (insulin lispro) 8 units with each meal (patient eats 4 meals) If BG 80-120 mg/dL or less than half a meal, give half dose If BG <80 mg/dL, hold dose Restart/take metformin 500 mg with breakfast and dinner Restart Ozempic 1 mg weekly Will consider titrating at future visits Encouraged patient to make appointment with endo (patient missed last endo appt in Apr) Encouraged med compliance Time spent with patient/coordination: 30 minutes Katie Frank, JatinD Pharmacy [facility] [facility] Manager - Family Medicine Future Appointments Provider Department Dept Phone 08/13/2024 1:45 PM Christa Deleon [facility], [place] [phone] 04/24/2025 2:45 PM Christa Deleon [facility], [place] [phone] [facility] 2024-06-25 13:40:33 PharmD Attempted to contact patient for DM/medication management. Unable to reach patient. [X] Left VM with contact information [ ] Unable to leave VM/VM box full This is the second attempt. Katie Frank PharmD Pharmacy [facility] [facility] Manager [facility] Sharona Frank [facility] 2024-06-21 10:23:01 PharmD Attempted to contact patient for DM/medication management. Unable to reach patient. [X] Left VM with contact information [ ] Unable to leave VM/VM box full This is the first attempt. Katie Frank PharmD Pharmacy [facility] Sharona Frank [facility] 2024-05-02 12:46:12 Called pt, discussed pap smear and poc. Verbalized understanding. Anna Quintana RN 05/02/24 12:46 PM [facility] 2024-05-02 08:17:58 Called pt, no answer. Left VM. Esther Willis LVN 05/02/2024 8:18 AM OGRAPH PRINTER Esther Willis DEEP FAT FRY COOK [facility] 2024-05-01 16:42:40 Please notify the patient of pap results: NIL pap +HPV, she will need repeat pap in 1 year VAIBHAV Maciel 05/01/2024 4:43 PM [facility] 2024-04-26 08:20:19 Patient informed of results and new orders, verbalized understanding. A Villasenor DEEP FAT FRY COOK [facility] 2024-04-25 16:34:19 Called pt, daughter answered phone and stated she is taking a shower right now. Will call back Esther Willis LVN 04/25/2024 4:34 PM OGRAPH PRINTER Esther Willis DEEP FAT FRY COOK [facility] 2024-04-25 16:21:00 Please notify the patient that yeast was identified. Meds have been sent to her pharmacy on file, please advise the patient to complete the meds as prescribed, and practice good perineal hygiene. VAIBHAV Maciel 04/25/2024 4:21 PM [facility] 2024-03-22 11:15:33 PA evelyn Thapa completed Harrell [id number] Pending determination A Lee RN [facility] 2024-03-22 11:09:04 Addended by: SOFIA MERCHANT RPH on: 03/22/2024 11:09 AM Modules accepted: Orders [facility] 2024-03-22 10:23:58 CLINICAL PHARMACY ENDOCRINOLOGY VISIT- [...] Visual changes Complications of diabetes: Macrovascular: [-] [place] [-] CABG/PCI/other re-vascularization procedure Microvascular [-] Retinopathy [...] mouth in the morning. 02/03/24 Helen Truong AGJAMAAL metFORMIN 500 mg tablet Take 1 tablet by mouth in the morning and 1 tablet in the evening. Take with meals. 02/03/24 Helen Truong AGPCNP semaglutide (OZEMPIC) 2 mg/dose (8 mg/3 mL) PnIj inject 2 mg under the skin weekly. 02/03/24 Helen Truong AGPCJOSÉ MIGUEL traZODone 100 mg tablet TAKE 1 TABLET BY MOUTH ONCE DAILY AT BEDTIME NEEDED 01/10/24 Doctor Unassigned, [place] ARIPiprazole 5 mg tablet Take 1 tablet by mouth at bedtime. 10/18/23 Doctor Unassigned, [place] Blood-Glucose Meter,Continuous (FREESTYLE CURT 3 READER) Misc Use as directed 10/28/23 Helen Truong AGPCNP Blood-Glucose Sensor (FREESTYLE CURT 3 SENSOR) Jenna Use as directed every 2 weeks 10/28/23 Helen Truong AGPCNP SERTraline 100 mg tablet Take 1 tablet by mouth every morning. 10/18/23 Doctor Unassigned, [place] quetiapine fumarate (SEROQUEL ORAL) Take by mouth. Doctor Unassigned, [place] Allergies Allergen Reactions Latex Swelling Blisters Drug-Drug Interactions: There are no significant drug-drug interactions There is no immunization history on file for this patient. Vaccine history was reviewed. The patient was reminded about the importance of receiving an annual influenza vaccine as indicated. Recent Labs 08/15/23 1455 02/03/24 1101 HGBA1C 12.2* -- [id number] -- 12.3* Assessment: 1. DIABETES Patient NOT [...] with patient/coordination: 30 minutes Sofia Merchant PharmD, [facility] Pharmacy Clinical [facility] [facility] Manager- Endocrinology Future Appointments Provider Department Dept Phone 05/11/2024 2:30 PM Helen Truong AGPCNP [facility] Endocrinology, [facility] [phone] [facility] 2024-03-19 15:18:15 Pt aware PA was sent in, verbalized no further questions. HOSPITAL Esther Carr RN [facility] 2024-03-19 13:45:55 Images from the original note were not included. [facility] 2024-03-19 11:17:55 Images from the original note were not included. Patient came in to provide their insurance card information to get her insulin PA. Patient has been with out medication for a month [facility] 2024-03-16 14:25:31 Images from the original note were not included. Pt Insurance showing inactive on [employer]. PA denied. LM for patient to call back with Insurance information. [facility] 2024-03-16 12:50:10 Aminta Nino is a 33 year old female Pt is calling because she needs a PA for nsulin lispro (HUMALOG KWIKPEN INSULIN) 100 unit/mL pen injector . Pt was at the ER last night with BS over 700. Pt states she has been out of medication for a month and has been trying to get this done. Please advise [facility] [address] [place] [address] [id number] OGRAPH PRINTER Priyanka Iniguez [facility] 2024-03-05 10:09:53 CLINICAL PHARMACY ENDOCRINOLOGY VISIT- [...] Will try again in a few weeks. Jatin FinleyD, [facility] Pharmacy Clinical Tire Center Manager- Endocrinology Future Appointments Provider Department Dept Phone 05/11/2024 2:30 PM Helen Truong AGPCNP [facility] Endocrinology, [facility] [phone] A Merchant [facility] 2024-02-04 10:00:00 Images from the original note were not included. Venipuncture collection performed by clean technique on the left hand. Total of 1 attempts were made. Slight pressure and a bandage/dressing were applied to the site(s). The patient experienced no complications. The following specimens were processed according to instructions and sent to [facility] laboratories per lab order on 02/04/2024 : LT BLUE SST 4 RED LAV PPT DK GREEN (LiHep) DK GREEN (SodH) HELLER DK BLUE (K2) DK BLUE (S) ACD Blood Culture NIPT/NTD Patient has been identified by and was provided with cup, antiseptic towelette, and clean catch instructions. 1 urine specimen(s) sent. Unpreserved 1 Urine Culture Aptima tube Other urine [facility] 2024-01-23 08:11:32 Received medical records from [facility] via fax, placed on [employer] desk. A Caicedo [facility] 2024-01-20 15:07:58 Images from the original note were not included. A Carr RN [facility] 2024-01-19 14:10:25 Name and verified, pt is aware of results. Pt verbalized understanding. Suni Dooley RN 01/19/2024 2:10 PM OGRAPH PRINTER Suni Dooley RN [facility] 2024-01-19 10:48:40 Aminta Nino is a 33 year old female pt returned the call to discuss results. Would like a call back. OGRAPH PRINTER Candis Lee [facility] 2024-01-19 10:24:15 Attempted to reach pt, no answer, left a vm Suni Dooley RN 01/19/2024 10:24 AM [facility] 2024-01-19 10:05:59 Aminta Nino is a 33 year old Patient returned call to go over results. Please assist and thank you. A Cool [facility] 2024-01-18 15:52:47 Images from the original note were not included. PA sent OGRAPH PRINTER Esther Carr RN [facility] 2024-01-18 15:31:40 Aminta Nino is a 33 year old female Pt is calling to get status on her request for OZEMPIC . She stated that pharmacy has also sent request form for PA . Please call the pharmacy with the update.Pt is waiting since 3 months for this PA initiation. Please call the pt with an update. OGRAPH PRINTER Uma Mckeon [facility] 2024-01-17 17:31:15 1. Type 2 diabetes [...] < 80 Dispense: 36 mL; Refill: 1 [facility] 2024-01-17 17:24:15 Please advise on formulary alternative for Humalog U-200. Mya Abarca MA 01/17/2024 5:24 PM OGRAPH PRINTER Mya Abarca MA [facility] 2024-01-11 14:58:31 Images from the original note were not included. Priyanka Sen [facility] 2024-01-05 08:54:00 CLINICAL PHARMACY ENDOCRINOLOGY VISIT [...] will follow-up after. Saran Villatoro PharmD PGY2 Manager Physical Cargo Services Coordinator Future Appointments Provider Department Dept Phone 02/03/2024 11:00 AM Helen Truong AGPCNP [facility] Endocrinology, [place] [facility] [phone] Saran Villatoro [facility] 2024-01-04 10:57:47 CLINICAL PHARMACY ENDOCRINOLOGY VISIT Aminta Nino is a 33 year old female referred to PharmD by CHELO Clnie for medication management of type 2 diabetes. [...] call back tomorrow. Saran Villatoro PharmD PGY2 Manager Physical Cargo Services Coordinator Future Appointments Provider Department Dept Phone 02/03/2024 11:00 AM Helen Truong AGPCNP [facility] Endocrinology, [place] [facility] [phone] Saran Villatoro [facility] 2023-12-09 12:58:57 I was present with the resident at the time of this encounter on 12/09/23. I discussed the case with Saran Villatoro PharmD (PGY2 Manager Physical Cargo Services Coordinator) and agree with the assessment and plan. I have reviewed the progress note and I agree with the note as written. Sofia Merchant PharmD, [facility] Pharmacy Clinical Tire Center Manager- Endocrinology Sofia Merchant [facility] 2023-12-09 11:41:34 CLINICAL PHARMACY ENDOCRINOLOGY VISIT- 12/09/23 [...] Visual changes Complications of diabetes: Macrovascular: [-] WV [-] CABG/PCI/other re-vascularization procedure Microvascular [-] Retinopathy [...] mouth in the morning. 10/05/23 Doctor Unassigned, [place] ARIPiprazole 5 mg tablet Take 1 tablet by mouth at bedtime. 10/18/23 Doctor Unassigned, [place] Blood-Glucose Meter,Continuous (FREESTYLE CURT 3 READER) Misc Use as directed 10/28/23 Helen Truong AGPCNP Blood-Glucose Sensor (FREESTYLE CURT 3 SENSOR) [facility] Use as directed every 2 weeks 10/28/23 [...] mouth in the morning. 10/05/23 Doctor Unassigned, [place] semaglutide (OZEMPIC) 1 mg/dose (4 mg/3 mL) PnIj inject 1 mg under the skin weekly. 10/28/23 Helen Truong AGPCNP SERTraline 100 mg tablet Take 1 tablet by mouth every morning. 10/18/23 Doctor Unassigned, [place] fluconazole 150 mg tablet Take one tablet PO today, then repeat in 72 hours 09/05/23 Vincent Jorge DNP metFORMIN 500 mg tablet Take 1 tablet by mouth in the morning and 1 tablet in the evening. Take with meals. 09/05/23 Vincent Jorge DNP quetiapine fumarate (SEROQUEL ORAL) Take by mouth. Doctor Unassigned, [place] Allergies/ADR: Allergies Allergen Reactions Latex Swelling Blisters [...] patient/coordination: 20 minutes Saran Villatoro PharmD PGY2 Manager Physical Cargo Services Coordinator Future Appointments Provider Department Dept Phone 02/03/2024 11:00 AM Helen [facility] AGPCNP [facility] [phone] Saran Villatoro [facility] 2023-12-07 10:47:45 CLINICAL PHARMACY ENDOCRINOLOGY VISIT Aminta [...] a few weeks. Saran Villatoro PharmD PGY2 Manager Physical Cargo Services Coordinator Future Appointments Provider Department Dept Phone 02/17/2024 10:30 AM Helen Truong AGPCNP [facility] [phone] Saran Villatoro [facility] 2023-10-28 14:00:00 Addended by: HELEN ROYAL on: 10/29/2023 11:02 PM Modules accepted: Orders [facility] 2023-08-15 15:00:00 Images from the original note were not included. Venipuncture collection performed by clean technique on the right anticubitus. Total of 2 attempts were made. Slight pressure and a bandage/dressing were applied to the site(s). The patient experienced no complications. The following specimens were processed according to instructions and sent to [facility] laboratories per lab order on 08/15/2023 : LT BLUE SST 2 rst RED LAV 2 PPT DK GREEN (LiHep) DK GREEN (SodH) HELLER DK BLUE (K2) DK BLUE (S) ACD Blood Culture NIPT/NTD [facility] 2023-01-21 18:50:00 [facility] ([facility]) EMERGENCY PROVIDER REPORT REPORT#:[id number] REPORT STATUS: Signed DATE:01/21/23 TIME: 1849 PATIENT: AMINTA NINO UNIT #: [id number] ROOM/BED: AGE: 32 SEX: F PCP PHYS: Carline Wilkerson MD SERVICE DT: AUTHOR: Napoleon Nazario MD * ALL edits or amendments must be made on the electronic/computer document * HPI-Extremity Prob Lower General Initial Greet Date/Time 01/21/23 185 Presentation Chief Complaint Foot problem R, Foot [...] a call to 911. at 1855 RPT #:[id number] END OF REPORT [facility] 2023-01-18 11:17:00 [facility] ([facility]) Brief Discharge Note w/Med Rec REPORT#:[id number] REPORT STATUS: Signed REPORT INITIALIZATION DATE:01/18/23 TIME: 1116 PATIENT: AMINTA NINO UNIT #: [id number] ROOM/BED: [address] : 92 AGE: 32 SEX: F ATTEND: Jak Herrera MD ADM AUTHOR: Darron Santacruz MD REPT SERVICE DT/TIME: 01/18/23 111 * ALL edits or amendments must be [...] [facility] at 26 2/7 weeks transported from [place] for sob, orthopnea, pulm edema. PNC w [...] delivery. 2) Prematurity- s/p bmz x 2 (-,6) no mgso4 d/t pulm edema, kiran felipe 3) U/S 11-1- blaise coates vertex, anterior placenta, MATHEUS 6.5 decreased, S/D 11 increased near AEDF, EFW 1, 1683 gms, < 1 % decreased interval growth , BPP 8/8, cervix long closed 11-2 swp disc indication for delivery. pt wants trial of induction. PLAN- gbs vag culture sent, to [facility], cervidil, ssi, pcn prev 01-02 blaise coates [...] clay 1 wk for bp check, fax [phone], then with television presenter Discharge to: Home/Self Care Discharge diagnosis: 26 weeks iddm, preE, fgr, bipolar, adhd Pt. condition on discharge: improved Additional Discharge Routines: None Diet: Diabetic Activity: Light Duty Additional instructions: continue cgm and insuliin pens, preE precautions, f/u dr clay 1 week for bpp check at 1343 RPT #:[id number] END OF REPORT [facility] 2023-01-18 11:14:00 [facility] ([facility]) OB Postpart Progr Note REPORT#:[id number] REPORT STATUS: Signed REPORT INITIALIZATION DATE:01/18/23 TIME: 1114 PATIENT: AMINTA NINO UNIT #: [id number] ROOM/BED: F : 92 AGE: 32 SEX: F ATTEND: [...] A P: PPD 3 (11-4 , montse, HRARY 1770g 3-14, ap 1,7), bp 140-150/70-80, glu 120- 287, fbs 180, on lantus 110 qhs, ssi, proc 60 xl q d pp h/h 10.3/30.8, nl plat and lft PLAN- d/c home w rxs procardia 30xl q 12, trazadone, zoloft 100, metformin 100 bid. to continue her cgm and insulin pen, preE precautions, f/u dr clay 1 wk for bp check, then with television presenter Pt seen and d/w dr josé at 1138 RPT #:[id number] END OF REPORT [facility] 2023-01-17 07:42:00 [facility] ([facility]) OB Postpart Progr Note REPORT#:[id number] REPORT STATUS: Signed REPORT INITIALIZATION DATE:01/17/23 TIME: 741 PATIENT: AMINTA NINO UNIT #: [id number] ROOM/BED: : 92 AGE: 32 SEX: F [...] Ox Delivery Rate 01/17 750 99.0 01/17 0750 98.5 102 17 133/82 98 01/17 0600 [...] and d/w dr ochoa at 1500 RPT #:[id number] END OF REPORT [facility] 2023-01-16 09:26:00 [facility] ([facility]) OB Postpart Progr Note REPORT#:[id number] REPORT STATUS: Signed REPORT INITIALIZATION DATE:01/16/23 TIME: 925 PATIENT: AMINTA NINO UNIT #: [id number] ROOM/BED: [facility] : 92 AGE: 32 SEX: F ATTEND: [...] Flow FiO2 Mean Ox Delivery Rate 01/16 607 98.0 102 14 147/73 95 01/16 0120 [...] A P: 32 y/o transported originally for [facility], orthopnea, pulm edema. PNC w dr cristina clay PPD#1- induced due to FGR patient is afebrile and stable orders placed by delivering MD yesterday to continue medications: nifedpine 60 mg qd, insulin glargine 20u qHS and sliding scale insulin, metformin 1000 mg bid , and zoloft, iron and seroquel. Endocrinology consultation placed, left VM Dr Castro at 0954 RPT #:[id number] END OF REPORT [facility] 2023-01-15 12:26:00 [facility] ([facility]) OB Delivery Note REPORT#:[id number] REPORT STATUS: Signed REPORT INITIALIZATION DATE:01/15/23 TIME: 1225 PATIENT: AMINTA NINO UNIT #: [id number] ROOM/BED: [address] : 92 AGE: 32 SEX: F [...] anxiety relief per patient at 1410 RPT #:[id number] END OF REPORT [facility] 2023-01-14 06:49:00 [facility] ([facility]) OB Intrapart Prog Note REPORT#:[id number] REPORT STATUS: Signed REPORT INITIALIZATION DATE:01/14/23 TIME: 648 PATIENT: AMINTA NINO UNIT #: [id number] ROOM/BED: [address] : 92 AGE: 32 SEX: F [...] Text A P: 32 y/o EDC 02-20-23 [facility] at 34 5/7 weeks transported from [place] at 26.2 for sob, orthopnea, pulm edema. [...] and d/w dr jerez at 1050 RPT #:[id number] END OF REPORT [facility] 2023-01-13 06:58:00 [facility] ([facility]) OB Antepartum Prog Note REPORT#:[id number] REPORT STATUS: Signed REPORT INITIALIZATION DATE:01/13/23 TIME: 657 PATIENT: AMINTA NINO UNIT #: [id number] ROOM/BED: [address] : 92 AGE: 32 SEX: F [...] Text A P: 32 y/o EDC 02-20-23 [facility] at 34 4/7 weeks transported from [place] at 26.2 for sob, orthopnea, pulm edema. PNC w dr cristina clay 1) IDDM- hgba1c 6.6 at sending 11-13, on lantus 60 bid, humalog 50B, 60L, 70D Consulted rohan nutrition and DM counselor. fructosamine 11-18 198, 11/30 217, 200, current 01-11 lantus am/pm 136/110, humalog 100, 110, 144 and metformin to 1000 bid 10-31 glu still labile. PLAN- cpm, blaise to scan later today and make plan 2) Prematurity- s/p bmz x 2 (9-5,6) no mgso4 d/t pulm edema, kiran felipe 3) U/S 11-1- blaise coates vertex, anterior placenta, MATHEUS 6.5 [...] and d/w dr josé at 1532 RPT #:[id number] END OF REPORT [facility] 2023-01-12 21:30:00 [facility] ([facility] MF Consultation Note REPORT#:[id number] REPORT STATUS: Signed REPORT INITIALIZATION DATE:01/12/23 TIME: 2129 PATIENT: AMINTA NINO UNIT #: [id number] ROOM/BED: [address] : 92 AGE: 32 SEX: F ATTEND: Jak Herrera MD ADM AUTHOR: Shabnam Jerez MD REPT SERVICE DT/TIME: 01/12/232129 * ALL edits or amendments must be made on the electronic/computer document * See Addendum History of Present Illness HPI Chief complaint: Transferred for [facility] History Past History Allergies: Coded Allergies: latex (SWELLING 11/15/22) Objective Physical Exam HEENT: normocephalic Cardiovascular: regular rate and rhythm Respiratory: clear to auscultation Abdomen: non-tender, soft Extremities: edema (trace) Neuro/PRESS PULLER: alert, oriented x 3, normal speech Skin: dry, intact, normal color, normal temperature, normal turgor Psychiatry: not homicidal Results Radiology data: ultrasound indications: 34 3/7 weeks GA FGR IDDM findings: coates vertex anterior placenta MATHEUS 6.5 decreased S/D 11 increased near AEDF EFW 1 92386 gms, < 1 % decreased interval growth [...] of labor being scheduled at 1450 RPT #:[id number] END OF REPORT [facility] 2023-01-12 06:59:00 [facility] ([facility]) OB Antepartum Prog Note REPORT#:[id number] REPORT STATUS: Signed REPORT INITIALIZATION DATE:01/12/23 TIME: 658 PATIENT: AMINTA NINO UNIT #: [id number] ROOM/BED: [address] : 92 AGE: 32 SEX: F [...] B/P 133/76 01/12 0947 Temp 98.0 01/12 0947 Pulse 90 01/12 0947 Resp 16 01/12 947 Pulse Ox 98 01/11 2033 FiO2 21 12/28 2030 O2 Delivery Room air 12/28 2029 Vital Signs Date Temp Pulse Resp B/P B/P Mean Pulse Ox FiO2 01/11-01/12 97.7-98.3 87-103 16- 133-147/73-81 99.0-109.0 98-99 PATIENT WEIGHT: Weight (lb): [...] % (Auto) (14.5 - 29.7 %) 23.6 [place] % (Auto) (3.6 - 10.2 %) 7.2 Eos % (Auto) (0.0 - 3.0 %) 0.7 Baso % (Auto) (0.1 - 0.9 %) 0.3 Neut # (Auto) (K/mm3) 8.3 Lymph # (Auto) (K/mm3) 2.9 [place] # (Auto) (K/mm3) 0.9 Eos # (Auto) (K/mm3) 0.08 Baso # (Auto) (K/mm3) 0.0 Urines Ur Random Creatinine (mg/dL) 90.2 U Random Total Protein (mg/dL) 55.0 Protein/Creatinin Ratio (<200 mg/gcrea) 609.7 H Diagnosis, Assessment Plan Diagnosis, Assessment Plan Free Text A P: 32 y/o EDC 02-20-23 [facility] at 34 3/7 weeks transported from [place] at 26.2 for sob, orthopnea, pulm edema. [...] and d/w dr jerez at 1358 RPT #:[id number] END OF REPORT [facility] 2023-01-11 14:32:00 [facility] ([facility]) OB Antepartum Prog Note REPORT#:[id number] REPORT STATUS: Signed REPORT INITIALIZATION DATE:01/11/23 TIME: 1431 PATIENT: AMINTA NINO UNIT #: [id number] ROOM/BED: [address] : 92 AGE: 32 SEX: F ATTEND: Jak Herrera MD ADM AUTHOR: Juliet Colindres MD REPT SERVICE DT/TIME: 01/11/23 143 * ALL edits or amendments must be [...] Plan Free Text A P: 32 y/o [facility] 02-20-23 [place] at 34 2/7 weeks transported from [place] at 26.2 for sob, orthopnea, pulm edema. [...] probably as a result of bmz given -15. PLAN- incr insulin by 15%, new doses [...] should be back on by dinner tomorrow 10-9 i spoke w rohan and reviewed cgm, bs very labile, cgm will run out tonight. mom cant bring new one until tue. PLAN- finger sticks for /tue 10-6 glu very labile. pt seen by diab educ and car dumper. disc w rohan. PLAN- cpm, reeval - [...] pt's request, 1 hr TID after meals 01-11 nst cat 1 01-07 nst 140 non reactive, min variability. bpp 10/19 09- nst cat 1, occ sharp variable but [...] be distrubed in am. at 1659 RPT #:[id number] END OF REPORT [facility] 2023-01-10 08:18:00 [facility] ([facility]) OB Antepartum Prog Note REPORT#:[id number] REPORT STATUS: Signed REPORT INITIALIZATION DATE:01/10/23 TIME: 817 PATIENT: AMINTA NINO UNIT #: [id number] ROOM/BED: [facility] : 92 AGE: 32 SEX: F ATTEND: [...] Plan Free Text A P: 32 y/o [facility] 02-20-23 [facility] at 34 1/7 weeks transported from [place] at 26.2 for sob, orthopnea, pulm edema. [...] labile. pt seen by diab educ and car dumper. disc w rohan. PLAN- cpm, reeval - [...] (9-5,6) no mgso4 d/t pulm edema, kiran feliep 3) U/S - blaise coates vertex, anterior placenta, MATHEUS 6.5 decreased, S/D 5.1 increased EFW 1730 gms, 6% % low normal interval growth interval gwoth, BPP 10/19, cervix long closed. PLAN- U/S soon prev 12-19 blaise coates vertex, anterior placenta, MATHEUS 8.5 decreased, S/D 4.9- 5.3 increased EFW 1384 gms, 5.6 % low normalinterval growth interval gwoth, BPP 10/19, cervix long closed. PLAN- rescan this weekend 9-24 KA, S:D 4.9-5.3, EFW 1084, 5.6%, AFT 9.5, BPP 8, cx long closed. 9-4 gei Coates Cephalic [...] and d/w dr ochoa at 1559 RPT #:[id number] END OF REPORT [facility] 2023-01-09 08:16:[address] [facility] ([facility]) OB Antepartum Prog Note REPORT#:[id number] REPORT STATUS: Signed REPORT INITIALIZATION DATE:01/09/23 TIME: 815 PATIENT: AMINTA NINO UNIT #: [id number] ROOM/BED: 5048-A : 92 AGE: 32 SEX: [...] Plan Free text A P: 32 y/o [facility] 02-20-23 [facility] at 33 5/7 weeks transported from [place] at 26.2 for sob, orthopnea, pulm edema. [...] labile. pt seen by diab educ and car dumper. disc w rohan. PLAN- cpm, reeval 12-20 [...] PLAN- 300 q hs at 1607 RPT #:[id number] END OF REPORT [facility] 2023-01-08 14:06:00 [facility] ([facility]) OB Antepartum Prog Note REPORT#:[id number] REPORT STATUS: Signed REPORT INITIALIZATION DATE:01/08/23 TIME: 1405 PATIENT: AMINTA NINO UNIT #: [id number] ROOM/BED: [address] : 92 AGE: 32 SEX: F ATTEND: Jak Herrrea MD ADM AUTHOR: Kya Sultana MD REPT SERVICE DT/TIME: 01/08/23 140 * ALL edits or amendments must be [...] [place] at 33 5/7 weeks transported from [place] at 26.2 for sob, orthopnea, pulm edema. [...] Impressions: ULTRASOUND - US FET BIO PH GA W/O NST 01/07 7645 Report Impression - Status: SIGNED Entered: 01/07/2023 7724 Impression: Biophysical profile score is 8 of 8. MATHEUS is at the lower limits of normal, measuring 6.4 cm. Impression By: [email or web address] - Agatha George MD Diagnosis, Assessment Plan Diagnosis, Assessment Plan Free text A P: 32 y/o [facility] 02-20-23 [facility] at 33 5/7 weeks transported from [place] at 26.2 for sob, orthopnea, pulm edema. She also has IDDM and mild PIH. She has been declining her AM insulin because she doesn't eat breakfast. Her BS's are generally okay on her CGM. BPP = 8/8. We will continue her current care for now. at 1414 RPT #:[id number] END OF REPORT [facility] 2023-01-07 19:41:00 [facility] ([facility]) OB Antepartum Prog Note REPORT#:[id number] REPORT STATUS: Signed REPORT INITIALIZATION DATE:01/07/23 TIME: 1940 PATIENT: AMINTA NINO UNIT #: [id number] ROOM/BED: [address] : 92 AGE: 32 SEX: F [...] continue to monitor closely. at 1950 RPT #:[id number] END OF REPORT [facility] 2023-01-07 07:02:00 [facility] ([facility]) OB Antepartum Prog Note REPORT#:[id number] REPORT STATUS: Signed REPORT INITIALIZATION DATE:01/07/23 TIME: 701 PATIENT: AMINTA NINO UNIT #: [id number] ROOM/BED: [address] : 92 AGE: 32 SEX: F [...] Plan Free Text A P: 32 y/o [facility] 02-20-23 [place] at 33 5/7 weeks transported from [place] at 26.2 for sob, orthopnea, pulm edema. [...] am. PLAN- decr pm lantus to 136 10- cgm looking excellent, < 120. dr madrigal [...] labile. pt seen by diab educ and car dumper. disc w rohan. PLAN- cpm, reeval 12-20 [...] 8/8, cervix long closed. PLAN- rescan this 9- [...] and d/w dr josé at 1634 RPT #:[id number] END OF REPORT [facility] 2023-01-06 07:02:00 [facility] ([facility]) OB Antepartum Prog Note REPORT#:[id number] REPORT STATUS: Signed REPORT INITIALIZATION DATE:01/06/23 TIME: 701 PATIENT: AMINTA NINO UNIT #: [id number] ROOM/BED: [address] : 92 AGE: 32 SEX: F [...] Plan Free Text A P: 32 y/o [facility] 02-20-23 [place] at 33 4/7 weeks transported from [place] at 26.2 for sob, orthopnea, pulm edema. [...] < 120. dr madrigal aware. PLAN- cpm - CGM mostly below 200. [...] labile. pt seen by diab educ and car dumper. disc w rohan. PLAN- cpm, reeval 12-20 [...] pt's request, 1 hr TID after meals 10-26 nst cat 1, occ sharp variable [...] some labile BPs, continue to follow. 10 elev bp 189/102, 179/87, labet protocol ordered, [...] and d/w dr josé at 1527 RPT #:[id number] END OF REPORT [facility] 2023-01-05 06:47:00 [facility] ([facility]) OB Antepartum Prog Note REPORT#:[id number] REPORT STATUS: Signed REPORT INITIALIZATION DATE:01/05/23 TIME: 646 PATIENT: AMINTA NINO UNIT #: [id number] ROOM/BED: [address] : 92 AGE: 32 SEX: F [...] Resp 18 01/05 1545 FiO2 21 12/28 2030 O2 [...] [place] at 33 3/7 weeks transported from [place] 9-4- 23 at 26.2 for sob, orthopnea, pulm edema. [...] cgm looking excellent, < 120. PLAN- cpm 10- CGM mostly below 200. i spoke [...] labile. pt seen by diab educ and car dumper. disc w rohan. PLAN- cpm, reeval 12-20 [...] and d/w dr jerez at 1848 RPT #:[id number] END OF REPORT [facility] 2023-01-04 06:56:00 [facility] ([facility]) OB Antepartum Prog Note REPORT#:[id number] REPORT STATUS: Signed REPORT INITIALIZATION DATE:01/04/23 TIME: 655 PATIENT: AMINTA NINO UNIT #: [id number] ROOM/BED: [facility] : 92 AGE: 32 SEX: F ATTEND: [...] 32 y/o EDC 02-20-23 [facility] at 33 2/7 weeks transported from [place] at 26.2 for sob, orthopnea, pulm edema. PNC w dr cristina clay 1) IDDM- hgba1c 6.6 at sending 11-13, on lantus 60 bid, humalog 50B, 60L, 70D Consulted rohan, nutrition and DM counselor. fructosamine 11-18 198, 11/30 217, 200, 12-29 180 current insulin dose lantus am/pm 152/160, humalog 106, 122, 160 and metformin to 1000 bid 10- cgm looking excellent, < 120. PLAN- cpm [...] labile. pt seen by diab educ and car dumper. disc w rohan. PLAN- cpm, reeval 12-20 [...] 8/8, cervix long closed prev 10- blaise cotaes vertex, anterior placenta, MATHEUS 8.5 decreased, S/D [...] seen and d/w dr jerez at 1552 [facility] #:[id number] END OF REPORT [facility] 2023-01-03 06:46:00 [facility] ([facility]) OB Antepartum Prog Note REPORT#:[id number] REPORT STATUS: Signed REPORT INITIALIZATION DATE:01/03/23 TIME: 645 PATIENT: AMINTA NINO UNIT #: [id number] ROOM/BED: [address] : 92 AGE: 32 SEX: F [...] % (Auto) (14.5 - 29.7 %) 23.6 [place] % (Auto) (3.6 - 10.2 %) 5.1 Eos % (Auto) (0.0 - 3.0 %) 0.6 Baso % (Auto) (0.1 - 0.9 %) 0.3 Neut # (Auto) (K/mm3) 8.9 Lymph # (Auto) (K/mm3) 3.0 [place] # (Auto) (K/mm3) 0.7 Eos # (Auto) (K/mm3) 0.08 Baso # (Auto) (K/mm3) 0.0 Diagnosis, Assessment Plan Diagnosis, Assessment Plan Free Text A P: 32 y/o [facility] 02-20-23 [facility] at 33 1/7 weeks transported from [place] at 26.2 for sob, orthopnea, pulm edema. [...] labile. pt seen by diab educ and car dumper. disc w rohan. PLAN- cpm, reeval 12-20 [...] and d/w dr ochoa at 1547 RPT #:[id number] END OF REPORT [facility] 2023-01-02 09:09:00 [facility] ([facility] Consultation Note REPORT#:[id number] REPORT STATUS: Signed REPORT INITIALIZATION DATE:01/02/23 TIME: 908 PATIENT: AMINTA NINO UNIT #: [id number] ROOM/BED: [address] : 92 AGE: 32 SEX: F ATTEND: Jak Herrera MD ADM AUTHOR: Shabnam Jerez MD REPT SERVICE DT/TIME: 01/02/23908 * ALL edits or amendments must be made on the electronic/computer document * History of Present Illness HPI Chief complaint: Transferred for [facility] History Past History Allergies: Coded Allergies: latex (SWELLING 11/15/22) Objective Physical Exam VS/I O: Vital Signs: Date Time Temp Pulse Resp B/P B/P Pulse O2 O2 Flow FiO2 Mean Ox Delivery Rate 01/02 0510 89.0 01/02 0510 95 117/71 01/02 0036 85.0 01/02 003 98 127/59 01/01 1942 99.0 01/01 1942 97.7 99 15 140/69 96 01/01 1941 101 96 01/01 1605 102.0 01/01 1605 [...] auscultation Abdomen: non-tender, soft Extremities: edema (trace) Neuro/PRESS PULLER: alert, oriented x 3, normal speech Skin: [...] BMI 48 continue current care at 1111 RPT #:[id number] END OF REPORT [facility] 2023-01-02 08:15:00 [facility] ([facility]) OB Antepartum Prog Note REPORT#:[id number] REPORT STATUS: Signed REPORT INITIALIZATION DATE:01/02/23 TIME: 814 PATIENT: AMINTA NINO UNIT #: [id number] ROOM/BED: [address] : 92 AGE: 32 SEX: F [...] B/P 117/71 01/02 05 Pulse 95 01/02 05 Pulse Ox 96 01/01 1942 Temp 97.7 [...] Plan Free Text A P: 32 y/o [facility] 02-20-23 [facility] at 33 0/7 weeks transported from [place] at 26.2 for sob, orthopnea, pulm edema. [...] cervix long closed. PLAN- rescan this weekend 9- KA, S:D 4.9-5.3, EFW 1084, 5.6%, [...] Nose bleeds 10-- ocean saline spray prn at 1854 RPT #:[id number] END OF REPORT [facility] 2023-01-01 11:07:00 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 ([facility]) OB Antepartum Prog Note REPORT#:[id number] REPORT STATUS: Signed REPORT INITIALIZATION DATE:12/31/22 TIME: 706 PATIENT: AMINTA NINO UNIT #: [id number] ROOM/BED: [address] : 92 AGE: 32 SEX: F [...] Result Date Time B/P Mean 100.0 12/31 09 Pulse Ox 97 12/31 09 B/P 151/70 12/31 0935 Temp 98.3 12/31 0935 Pulse 81 12/31 0935 Resp 17 12/31 0935 FiO2 21 12/28 2029 O2 Delivery Room [...] Plan Free Text A P: 32 y/o [facility] 02-20-23 [facility] at 32 5/7 weeks transported from [place] at 26.2 for sob, orthopnea, pulm edema. [...] labile. pt seen by diab educ and car dumper. disc w rohan. PLAN- cpm, reeval - [...] ordered for am. Pt seen w dr mardigal - glu sig drop. pt asympt. lunch [...] and d/w dr jerez at 1736 RPT #:[id number] END OF REPORT [facility] 2022-12-30 12:44:00 [facility] ([facility]) OB Antepartum Prog Note REPORT#:[id number] REPORT STATUS: Signed REPORT INITIALIZATION DATE:12/30/22 TIME: 1243 PATIENT: AMINTA NINO UNIT #: [id number] ROOM/BED: [address] : 92 AGE: 32 SEX: F [...] Plan Free Text A P: 32 y/o [facility] 02-20-23 [facility] at 32 4/7 weeks transported from [place] at 26.2 for sob, orthopnea, pulm edema. PNC w dr cristina clay 1) IDDM- hgba1c 6.6 at sending 9-, on [...] labile. pt seen by diab educ and car dumper. disc w rohan. PLAN- cpm, reeval 12-20 [...] ocean saline spray prn at 1248 RPT #:[id number] END OF REPORT [facility] 2022-12-29 06:46:[address] [facility] ([facility]) OB Antepartum Prog Note REPORT#:[id number] REPORT STATUS: Signed REPORT INITIALIZATION DATE:12/29/22 TIME: 645 PATIENT: AMINTA NINO UNIT #: [id number] ROOM/BED: 5048-A : 92 AGE: 32 SEX: [...] Ox 100 12/29 1621 B/P 140/76 12/29 1621 Temp 98.2 12/29 1621 Pulse 89 12/292 Resp 18 12/29 1621 FiO2 21 12/28 [...] Plan Free Text A P: 32 y/o [facility] 02-20-23 [facility] at 32 3/7 weeks transported from [place] at 26.2 for sob, orthopnea, pulm edema. [...] to avoid hypoglycemia, fructosamine pending. PLAN- cpm 12-27 on cgm, glu consistently high, [...] labile. pt seen by diab educ and car dumper. disc w rohan. PLAN- cpm, reeval - [...] B80, L92, D 102, fructosamine 9 217 2) Prematurity- s/p bmz x 2 [...] and d/w dr jerez at 1736 RPT #:[id number] END OF REPORT [facility] 2022-12-28 06:57:00 [facility] ([facility]) OB Antepartum Prog Note REPORT#:[id number] REPORT STATUS: Signed REPORT INITIALIZATION DATE:12/28/22 TIME: 656 PATIENT: AMINTA NINO UNIT #: [id number] ROOM/BED: [facility] : 92 AGE: 32 SEX: F ATTEND: Jak Herrera MD ADM AUTHOR: Darron Santacruz MD REPT SERVICE DT/TIME: 12/28/22656 * ALL edits or amendments must be [...] Pulse Ox 96 12/28 405 B/P 131/65 10/17 0406 Pulse 86 10/17 0406 Resp 18 12/28 0406 Temp 97.8 [...] Plan Free Text A P: 32 y/o [facility] 02-20-23 [facility] at 32 2/7 weeks transported from [place] at 26.2 for sob, orthopnea, pulm edema. [...] be careful. PLAN- fuctosamine in am, cpm - on cgm, glu consistently high, [...] labile. pt seen by diab educ and car dumper. disc w rohan. PLAN- cpm, reeval - [...] zoloft 8) sleep apnea--pulm consult, per dr corcker, pt refusing cpap d/t claustrophobia. o2 sats [...] Nose bleeds 12-27- ocean saline spray prn Pt seen and d/w dr josé at 1132 RPT #:[id number] END OF REPORT [facility] 2022-12-27 07:31:00 [facility] ([facility]) OB Antepartum Prog Note REPORT#:[id number] REPORT STATUS: Signed REPORT INITIALIZATION DATE:12/27/22 TIME: 730 PATIENT: AMINTA NINO UNIT #: [id number] ROOM/BED: [address] : 92 AGE: 32 SEX: F ATTEND: Jak Herrera MD ADM AUTHOR: Darron Santacruz MD REPT SERVICE DT/TIME: 12/27/22730 * ALL edits or amendments must be [...] 1202 Resp 17 12/27 1202 FiO2 21 10/12 2015 O2 Delivery Room air 12/23 2014 Vital [...] Plan Free Text A P: 32 y/o [facility] 02-20-23 [facility] at 32 1/7 weeks transported from [place] at 26.2 for sob, orthopnea, pulm edema. [...] labile. pt seen by diab educ and car dumper. disc w rohan. PLAN- cpm, reeval 10-9 [...] and d/w dr ochoa at 1354 RPT #:[id number] END OF REPORT [facility] 2022-12-26 21:36:00 [facility] ([facility]) [facility] Consultation Note REPORT#:[id number] REPORT STATUS: Signed REPORT INITIALIZATION DATE:12/26/22 TIME: 2135 PATIENT: AMINTA NINO UNIT #: [id number] ROOM/BED: [facility] : 92 AGE: 32 SEX: F ATTEND: Jak Herrera MD ADM AUTHOR: Jak Herrera MD REPT SERVICE DT/TIME: 12/26/222135 * ALL edits or amendments must be made on the electronic/computer document * History of Present Illness HPI Requesting clinician: Dr Millan Reason for consult: Higher blood pressures Chief complaint: Transferred for [facility] PCP: PCP: Carline Wilkerson MD HPI: H/O diabetes H/O obesity H/O [...] (kg): 113.600 Results Findings/Data: Laboratory Tests 12/26 120 Chemistry Sodium (135 - 145 mEq/L) 137 [...] PT (9.8 - 13.3 secs) 10.0 PTT (Angelina) (26.2 - 37.2 secs) 29 Laboratory Tests [...] % (Auto) (14.5 - 29.7 %) 27.0 [place] % (Auto) (3.6 - 10.2 %) 6.6 Eos % (Auto) (0.0 - 3.0 %) 0.5 Baso % (Auto) (0.1 - 0.9 %) 0.3 Neut # (Auto) (K/mm3) 8.0 Lymph # (Auto) (K/mm3) 3.3 [place] # (Auto) (K/mm3) 0.8 Eos # (Auto) (K/mm3) 0.06 Baso # (Auto) (K/mm3) 0.0 Bedside US: -Coates -Cephalic -MATHEUS: 8.0 -UA: Normal waveform; UA-PI: 1.46 (99th p/GA) -MCA: Norml waveform; MCA-PI: 1.75 (26th p/GA) -CPR: 1.2 (1st p/GA) Impression: Evidence of increased placental vascualr resistance and PRESS PULLER blood flow redistribution No Doppler or fluid [...] for CPAP at night at 2150 RPT #:[id number] END OF REPORT [facility] 2022-12-26 16:37:00 [facility] ([facility]) Clinical Note REPORT#:[id number] REPORT STATUS: Signed REPORT INITIALIZATION DATE:12/26/22 TIME: 1636 PATIENT: AMINTA NINO UNIT #: [id number] ROOM/BED: [address] : 92 AGE: 32 SEX: F [...] worsen due to steroids. at 1640 RPT #:[id number] END OF REPORT [facility] 2022-12-26 08:13:00 [facility] ([facility]) OB Antepartum Prog Note REPORT#:[id number] REPORT STATUS: Signed REPORT INITIALIZATION DATE:12/26/22 TIME: 812 PATIENT: AMINTA NINO UNIT #: [id number] ROOM/BED: [facility]-A : 92 AGE: 32 SEX: F ATTEND: [...] Carbon Dioxide (22 - 31 mEq/L) 24 / 1438 Anion Gap (10 - 20) 15.50 [...] 1218 C-Peptide (1.1 - 4.4 ng/mL) 1.5 09 1218 Calcium (8.4 - 10.2 mg/dL) 9.3 11/22 1438 Iron (37 - 170 MCG/DL) 129 09 1326 TIBC (265 - 497 MCG/DL) 634 H 11/23 1326 % Saturation (12 - 57 %) 20 11/23 1326 Ferritin (6.24 - 137 NG/ML) 63.3 11/23 1326 Total Bilirubin (0.2 - 1.0 mg/dL) 0.3 11/22 1438 AST (15 - 37 units/L) 15 09 1438 ALT (12 - 78 units/L) 18 09 1438 Total Alk Phosphatase (46 - 116 units/L) 104 09/ 1438 B-Natriuretic Peptide (0 - 100 pg/mL) [...] (14.5 - 29.7 %) 22.8 11/22 1438 [place] % (Auto) (3.6 - 10.2 %) 5.2 11/22 1438 Eos % (Auto) (0.0 - 3.0 %) 0.4 / 1438 Baso % (Auto) (0.1 - 0.9 %) 0.3 11/22 1438 Neut # (Auto) (K/mm3) 10.2 11/22 1438 Lymph # (Auto) (K/mm3) 3.3 11/22 1438 [place] # (Auto) (K/mm3) 0.8 11/22 1438 Eos [...] - 9) 6.0 11/22 1437 Ur Specific [place] (1.001 - 1.035) 1.023 11/22 1437 Urine [...] 143 Urine Mucus (NONE SEEN) RARE 11/22 143 Ur Random Creatinine (mg/dL) 135.6 11/22 1437 U Random Total Protein (mg/dL) 30.4 11/22 1437 Urine Total Volume (ML) 2600 11/17 2029 Creatinine Clearance (70 - 120 ml/min) 164 H 11/17 2029 Ur Total Protein 24 Hr (20 - 150 mg/24HR) 554 *H 11/17 2029 Protein/Creatinin Ratio (<200 mg/gcrea) 224.1 H 11/22 1437 Diagnosis, Assessment Plan Diagnosis, Assessment Plan Free text A P: 32 y/o [facility] 02-20-23 [facility] at 32 weeks transported from [place] 11-15-22 at 26.2 for sob, orthopnea, pulm edema. PNC w dr cristina clay 1) IDDM- hgba1c 6.6 at sending 11-13, on lantus 60 bid, humalog 50B, 60L, 70D Consulted rohan, nutrition and DM counselor. fructosamine 11-18 198, 11/30 217, 200, current insulin dose lantus 132/138. humalog B92 L 106, D138 10-14 continue current management plans 12-24 back on [...] labile. pt seen by diab educ and car dumper. disc w rohan. PLAN- cpm, reeval 10- [...] severe range in last 24 hours- repeat PIH labs today. May need to move towards [...] Addendum 1: 12/26/221414 by Sterling Millan MD [facility] labs are nl. meds adjusted and bp's improved so far at 1415 RPT #:[id number] END OF REPORT [facility] 2022-12-25 11:36:00 [facility] ([facility]) OB Antepartum Prog Note REPORT#:[id number] REPORT STATUS: Signed REPORT INITIALIZATION DATE:12/25/22 TIME: 1135 PATIENT: AMINTA NINO UNIT #: [id number] ROOM/BED: [address] : 92 AGE: 32 SEX: F [...] 02-20-23 [facility] at 32 weeks transported from [place] 11-15-22 at 26.2 for sob, orthopnea, pulm edema. PNC w dr cristina clay 1) IDDM- hgba1c 6.6 at sending 11-13, on lantus 60 bid, humalog 50B, 60L, 70D Consulted rohan, nutrition and DM counselor. fructosamine 11-18 198, 11/30 217, 200, current insulin dose lantus 132/138. humalog B92 L 106, D138 10-14 continue current management plans - back on cgm, reviewed w dr madrigal at bedside PLAN- incr metformin to 1000 bid - back on cgm. PLAN- i [...] labile. pt seen by diab educ and car dumper. disc w rohan. PLAN- cpm, reeval - [...] dentist. PLAN- saline gargles at 1341 RPT #:[id number] END OF REPORT [facility] 2022-12-24 06:57:00 [facility] ([facility]) OB Antepartum Prog Note REPORT#:[id number] REPORT STATUS: Signed REPORT INITIALIZATION DATE:12/24/22 TIME: 656 PATIENT: AMINTA NINO UNIT #: [id number] ROOM/BED: [address] : 92 AGE: 32 SEX: F [...] 93.0 12/24 115 Pulse Ox 97 12/24 115 B/P 130/67 12/25 1151 Temp 97.9 12/24 [...] Text A P: 32 y/o [facility] 02-20-23 [facility] at 31 5/7 weeks transported from [place] at 26.2 for sob, orthopnea, pulm edema. [...] labile. pt seen by diab educ and car dumper. disc w rohan. PLAN- cpm, reeval 12-20 [...] and d/w dr jerez at 1309 RPT #:[id number] END OF REPORT [facility] 2022-12-23 07:20:00 [facility] ([facility]) OB Antepartum Prog Note REPORT#:[id number] REPORT STATUS: Signed REPORT INITIALIZATION DATE:12/23/22 TIME: 719 PATIENT: AMINTA NINO UNIT #: [id number] ROOM/BED: [address] : 92 AGE: 32 SEX: F [...] Plan Free Text A P: 32 y/o [facility] 02-20-23 [facility] at 31 4/7 weeks transported from [place] at 26.2 for sob, orthopnea, pulm edema. [...] labile. pt seen by diab educ and car dumper. disc w rohan. PLAN- cpm, reeval - [...] and d/w dr josé at 1622 RPT #:[id number] END OF REPORT [facility] 2022-12-23 06:53:00 [facility] ([facility]) OB Antepartum Prog Note REPORT#:[id number] REPORT STATUS: Signed REPORT INITIALIZATION DATE:12/23/22 TIME: 652 PATIENT: AMINTA NINO UNIT #: [id number] ROOM/BED: [address] : 92 AGE: 32 SEX: F [...] 02-20-23 [facility] at 29 weeks transported from [place] 11-15-22 at 26.2 for sob, orthopnea, pulm [...] over weekend. will have diab educ and car dumper see pt again soon. will review on 12-02 glu sig drop. pt asympt. lunch humalog held. PLAN- cpm, dr madrigal to see pt 12-03 9-20 min change in dexcon 7 readings. will incr insulin by 15%, to lantus 115/ 120, humalog B80, L92, D 102, fructosamine 9 pending 8) ADHD/depression- on seroquel, zoloft 9) sleep apnea--pulm consult, per dr crocker, pt refusing cpap d/t claustrophobia. o2 sats are reassuring 10) fatigue--TSH nl, iron studies show bordeline deficiency--will start iron and colace 11) Vulvar bump, vag odor and rash on abd. all asympt. no evidence of std. 9-15 wet mount neg for trich and bv, urine gc/chlam neg at 0655 RPT #:[id number] END OF REPORT [facility] 2022-12-22 07:08:00 [facility] ([facility]) OB Antepartum Prog Note REPORT#:[id number] REPORT STATUS: Signed REPORT INITIALIZATION DATE:12/22/22 TIME: 707 PATIENT: AMINTA NINO UNIT #: [id number] ROOM/BED: [address] : 92 AGE: 32 SEX: F [...] Resp 17 12/22 1001 FiO2 21 12/21 2029 O2 Delivery Room [...] Text A P: 32 y/o [facility] 02-20-23 [facility] at 31 3/7 weeks transported from [place] at 26.2 for sob, orthopnea, pulm edema. [...] labile. pt seen by diab educ and car dumper. disc w rohan. PLAN- cpm, reeval 12-20 mon 10-5 occ glu low 67 lunchtime humalog held. disc w dr madrigal. rec cpm - cgm stable, remains above 200 most of [...] and d/w dr jerez at 1232 RPT #:[id number] END OF REPORT [facility] 2022-12-21 07:15:00 [facility] ([facility]) OB Antepartum Prog Note REPORT#:[id number] REPORT STATUS: Signed REPORT INITIALIZATION DATE:12/21/22 TIME: 714 PATIENT: AMINTA NINO UNIT #: [id number] ROOM/BED: 5048-A : 92 AGE: 32 SEX: [...] Result Date Time B/P Mean 94.0 12/21 143 Pulse Ox 97 12/21 1437 B/P 131/69 12/21 1437 Temp 97.9 12/21 1437 Pulse 86 12/21 1437 Resp 16 12/21 143 O2 Delivery Room air 12/20 1100 FiO2 21 12/19 2029 Vital Signs Date Temp Pulse Resp [...] Plan Free Text A P: 32 y/o [facility] 02-20-23 [facility] at 31 2/7 weeks transported from [place] at 26.2 for sob, orthopnea, pulm edema. [...] labile. pt seen by diab educ and car dumper. disc w rohan. PLAN- cpm, reeval 10- [...] and d/w dr josé at 1518 RPT #:[id number] END OF REPORT [facility] 2022-12-20 07:39:00 [facility] ([facility]) OB Antepartum Prog Note REPORT#:[id number] REPORT STATUS: Signed REPORT INITIALIZATION DATE:12/20/22 TIME: 738 PATIENT: AMINTA NINO UNIT #: [id number] ROOM/BED: [address] : 92 AGE: 32 SEX: F [...] Result Date Time B/P Mean 117.0 12/20 1726 B/P 151/94 12/20 1726 Pulse 110 12/20 [...] Plan Free Text A P: 32 y/o [facility] [place] at 26.2 for sob, orthopnea, pulm edema. [...] % low normalinterval growth interval gwoth, BPP 8/, cervix long closed 9-24 KA, S:D 4.9-5.3, [...] preE. 7) IDDM- hgba1c 6.6 at sending -2, on lantus 60 bid, humalog 50B, 60L, 70D Consulted rohan, nutrition and DM counselor. fructosamine 11-18 198, 11/30 217, 10 -2 pending. on lantus 115/120, humalog B80, L92, D 120 10-9 i spoke w rohan and reviewed cgm, bs very labile, cgm will run out tonight. mom cant bring new one until tue. PLAN- finger sticks for /tue 10-6 glu very labile. pt seen by diab educ and car dumper. disc w rohan. PLAN- cpm, reeval 10- [...] and d/w dr ochoa at 1848 RPT #:[id number] END OF REPORT [facility] 2022-12-19 11:50:00 [facility] ([facility] Consultation Note REPORT#:[id number] REPORT STATUS: Signed REPORT INITIALIZATION DATE:12/19/22 TIME: 1150 PATIENT: AMINTA NINO UNIT #: [id number] ROOM/BED: 5048-A : 92 AGE: 32 SEX: F ATTEND: Jak Herrera MD ADM AUTHOR: Shabnam Jerez MD REPT SERVICE DT/TIME: 12/19/22 1150 * ALL edits or amendments must be made on the electronic/computer document * History of Present Illness HPI Reason for consult: ultrasound Chief complaint: Transferred for [facility] History Past History Allergies: Coded Allergies: [...] Ox 98 12/19 952 B/P 130/74 12/19 09 Pulse 83 12/19 952 FiO2 21 12/19 2327 O2 Delivery Room air 12/18 2049 Temp 97.9 12/18 114 Resp 18 12/18 114 PATIENT WEIGHT: Weight (lb): 250 Weight (oz): Weight (kg): 113.600 HEENT: normocephalic Cardiovascular: regular rate and rhythm Respiratory: clear to auscultation Abdomen: non-tender, soft Extremities: edema (trace) Neuro/PRESS PULLER: alert, oriented x 3, normal speech Skin: [...] 48 continue current care at 1444 RPT #:[id number] END OF REPORT [facility] 2022-12-19 09:47:00 [id number] [facility] [address], [place] [address] PATIENT NAME: AMINTA NINO ADMIT DATE: 11/15/22 ACCOUNT NO: [id number] ROOM NO: 5048 AGE: 32 SEX: F ADMITTING PHYSICIAN: Jak Herrera MD ATTENDING PHYSICIAN: Jak Herrera MD DATE: 12/19/2022 ATTENDING PHYSICIAN: [facility]. DATE OF EVALUATION: On 12/19/2022 at [...] ABDOMEN: Soft and nontender. Strip shows moderate mryg-yb-yxbr variability, positive accelerations, no regular contractions. PLAN: We will continue current care. Dictated By: Jose Roberto Webber MD Date Dictated: 12/19/2022 09:47:37 Date Transcribed: 12/19/2022 10:14:47 [employer]/VSR Receipt ID: [id number] Authenticated by Jose Roberto Webber MD On 12/20/2022 05:27:50 PM at 0527 PATIENT NAME: CASAMINTA MCGARRY [facility] 2022-12-18 07:04:00 [id number] [facility] [address], [place] [address] PATIENT NAME: AMINTA NINO ADMIT DATE: 11/15/22 ACCOUNT NO: [id number] ROOM NO: [facility] AGE: 32 SEX: F ADMITTING PHYSICIAN: Jak Herrera MD ATTENDING PHYSICIAN: Jak Herrera MD DATE: 12/18/2022 ANTEPARTUM PROGRESS NOTE ATTENDING PHYSICIAN: [facility]. TIME OF EVALUATION: Approximately 6:15 a.m. [...] or epigastric pain. Her strip shows moderate spjz-ye-gdsk variability, positive accels, no regular contractions. PLAN: We will continue current care. Dictated By: Jose Roberto Webber MD Date Dictated: 12/18/2022 07:04:30 Date Transcribed: 12/18/2022 07:19:23 [employer] [employer] [facility] Receipt ID: [id number] Authenticated by Jose Roberto Webber MD On 12/20/2022 05:27:50 PM at 0527 PATIENT NAME: AMINTA NINO [facility] 2022-12-17 06:58:00 [facility] ([facility]) OB Antepartum Prog Note REPORT#:[id number] REPORT STATUS: Signed REPORT INITIALIZATION DATE:12/17/22 TIME: 0658 PATIENT: AMINTA NINO UNIT #: [id number] ROOM/BED: [address] : [address] AGE: 32 SEX: F [...] Plan Free Text A P: 32 y/o [facility] transported from [place] at 26.2 for sob, orthopnea, pulm edema. [...] labile. pt seen by diab educ and car dumper. disc w rohan. PLAN- cpm, reeval - mon 10-5 occ glu low 67 lunchtime humalog held. disc w dr orzeck. rec cpm 10-2 cgm stable, remains above [...] and d/w dr jerez at 1309 RPT #:[id number] END OF REPORT [facility] 2022-12-16 06:53:00 [facility] ([facility]) OB Antepartum Prog Note REPORT#:[id number] REPORT STATUS: Signed REPORT INITIALIZATION DATE:12/16/22 TIME: 652 PATIENT: AMINTA NINO UNIT #: [id number] ROOM/BED: [address] : 92 AGE: 32 SEX: F [...] Plan Free Text A P: 32 y/o [facility] 02-20-23 [facility] at 30 4/7 weeks transported from [place] at 26.2 for sob, orthopnea, pulm edema. [...] Consulted rohan, nutrition and DM counselor. fructosamine 9-7 198, 11/30 217, 10 -2 pending. on lantus 115/120, humalog B80, L92, D 120 10-5 occ glu low 67 lunchtime humalog held. disc w dr madrigal. rec cpm 10-2 cgm stable, remains above 200 most of the time, occ lows. pt thinks this is d/t diet. fructo - 200. i showed graph to dr madrigal, [...] and d/w dr josé at 1812 RPT #:[id number] END OF REPORT [facility] 2022-12-15 06:49:00 [facility] ([facility]) OB Antepartum Prog Note REPORT#:[id number] REPORT STATUS: Signed REPORT INITIALIZATION DATE:12/15/22 TIME: 648 PATIENT: AMINTA NINO UNIT #: [id number] ROOM/BED: [address] : 92 AGE: 32 SEX: F [...] Result Date Time B/P Mean 97.0 12/15 131 Pulse Ox 98 12/16 1311 B/P 133/74 12/15 131 Temp 97.9 12/15 [...] Text A P: 32 y/o EDC 02-20-23 [facility] at 30 3/7 weeks transported from [place] at 26.2 for sob, orthopnea, pulm edema. [...] and d/w dr jerez at 1610 RPT #:[id number] END OF REPORT [facility] 2022-12-14 06:59:00 [facility] ([facility]) OB Antepartum Prog Note REPORT#:[id number] REPORT STATUS: Signed REPORT INITIALIZATION DATE:12/14/22 TIME: 658 PATIENT: AMINTA NINO UNIT #: [id number] ROOM/BED: [address] : 92 AGE: 32 SEX: F [...] Pulse 88 12/14 914 Temp 98.0 12/13 1834 Resp 18 10/02 1835 Pulse Ox 81 12/13 1517 Vital [...] Text A P: 32 y/o EDC 02-20-23 [facility] at 30 2/7 weeks transported from [place] at 26.2 for sob, orthopnea, pulm edema. [...] asympt. lunch humalog held. PLAN- cpm, dr mdarigal to see pt - 9-20 min change [...] and d/w dr josé at 1303 RPT #:[id number] END OF REPORT [facility] 2022-12-13 19:28:00 [facility] ([facility]) Clinical Note REPORT#:[id number] REPORT STATUS: Signed REPORT INITIALIZATION DATE:12/13/22 TIME: 1927 PATIENT: AMINTA NINO UNIT #: [id number] ROOM/BED: [address] : 92 AGE: 32 SEX: F ATTEND: Jak Herrera MD ADM AUTHOR: Haley Saleh MD REPT SERVICE DT/TIME: 12/13/221927 * ALL edits or amendments must be made on the electronic/computer document * Clinical Note Note: TRIMMER MEAT Hospitalist coverage overnight: Notified by RN of BPs with systolics of 160-170s. Pt given 10 mg of po nifedipine. Repeat BPs wnl. Dr Saleh at 1930 RPT #:[id number] END OF REPORT [facility] 2022-12-13 07:57:00 [facility] ([facility]) OB Antepartum Prog Note REPORT#:[id number] REPORT STATUS: Signed REPORT INITIALIZATION DATE:12/13/22 TIME: 756 PATIENT: AMINTA NINO UNIT #: [id number] ROOM/BED: [facility] : 92 AGE: 32 SEX: F ATTEND: Jak Herrera MD ADM AUTHOR: Darron Santacruz MD REPT SERVICE DT/TIME: 12/13/22 8100 * ALL edits or amendments must be made on the electronic/computer document * Subjective Subjective Patient reports: Patient reports: Yes no complaints, Yes normal movement, No abdominal pain, No vaginal bleeding, No leaking fluid, No contractions Objective VS: Last Documented: Result Date Time B/P Mean 104.0 12/13 1437 B/P 141/77 12/13 1437 Pulse 93 12/13 1437 Pulse Ox 96 12/13 1436 Temp 98.0 [...] Plan Free Text A P: 32 y/o [facility] 02-20-23 [facility] at 29 5/7 weeks transported from [place] at 26.2 for sob, orthopnea, pulm edema. [...] 115/120, humalog B80, L92, D 120 10- cgm stable, remains above 200 most of the time, occ lows. pt thinks this is d/t diet. fructo 9-29 200. i showed graph to dr madrigal, [...] and d/w dr ochoa at 1531 RPT #:[id number] END OF REPORT [facility] 2022-12-12 21:45:[address] [facility] ([facility]) OB Antepartum Prog Note REPORT#:[id number] REPORT STATUS: Signed REPORT INITIALIZATION DATE:12/12/22 TIME: 2144 PATIENT: AMINTA NINO UNIT #: [id number] ROOM/BED: 5048-A : 92 AGE: 32 SEX: [...] B/P 155/81 12/12 194 Pulse 253 12/12 194 Temp 98.2 12/12 [...] text A P: 32 [facility] from [place] at 26.2 for sob, orthopnea, pulm edema. [...] Nifedipine (PO) protocol prn at 2149 RPT #:[id number] END OF REPORT [facility] 2022-12-11 12:23:00 [facility] ([facility]) OB Antepartum Prog Note REPORT#:[id number] REPORT STATUS: Signed REPORT INITIALIZATION DATE:12/11/22 TIME: 1223 PATIENT: AMINTA NINO UNIT #: [id number] ROOM/BED: 5048- : 92 AGE: 32 SEX: F ATTEND: [...] Plan Free text A P: 32 y/o [facility] 02-20-23 [facility] at 29 6/7 weeks transported from [place] at 26.2 for sob, orthopnea, pulm edema. [...] Nifedipine (PO) protocol prn at 1228 RPT #:[id number] END OF REPORT [facility] 2022-12-10 06:56:00 [facility] ([facility]) OB Antepartum Prog Note REPORT#:[id number] REPORT STATUS: Signed REPORT INITIALIZATION DATE:12/10/22 TIME: 655 PATIENT: AMINTA NINO UNIT #: [id number] ROOM/BED: [address] : 92 AGE: 32 SEX: F [...] Temp 97.9 12/10 918 Pulse 77 12/10 918 Resp 18 09/29 0919 Vital Signs Date Temp Pulse Resp [...] Plan Free Text A P: 32 y/o [facility] 02-20-23 [facility] at 29 5/7 weeks transported from [place] at 26.2 for sob, orthopnea, pulm edema. [...] counselor. fructosamine 11-18 198, 11/30 217, 10 pending. on lantus 115/120, humalog B80, L92, [...] and d/w dr jerez at 1212 RPT #:[id number] END OF REPORT [facility] 2022-12-09 07:19:00 [facility] ([facility]) OB Antepartum Prog Note REPORT#:[id number] REPORT STATUS: Signed REPORT INITIALIZATION DATE:12/09/22 TIME: 718 PATIENT: AMINTA NINO UNIT #: [id number] ROOM/BED: [address] : 92 AGE: 32 SEX: F ATTEND: Jak Herrera MD ADM AUTHOR: Darron Santacruz MD REPT SERVICE DT/TIME: 12/09/22718 * ALL edits or amendments must be [...] 32 y/o EDC 02-20-23 [facility] at 29 4/7 weeks transported from [place] at 26.2 for sob, orthopnea, pulm edema. [...] and d/w dr jerez at 1314 RPT #:[id number] END OF REPORT [facility] 2022-12-08 10:18:00 [id number] [facility] [address] [place], [place] [address] PATIENT NAME: AMINTA NINO ADMIT DATE: 11/15/22 ACCOUNT NO: [id number] ROOM NO: [facility] AGE: 32 SEX: F ADMITTING PHYSICIAN: Jak Herrera MD ATTENDING PHYSICIAN: Jak Herrera MD [facility] Consult Aminta Nino PAC: [id number] Note Date: 12/08/2022 Note Time: 09:00:00 Place [...] PATIENT NAME: AMINTA NINO Comment Transported from [place] 11-15-22 at 26.2 for sob, orthopnea, pulmonary edema. PNC w Dr. Cristina Clay Present Plan Expectant management Recommendations I have reviewed the mother`s medical chart. I met with the mother in [facility] room # 0196. Based on the gestational age of 31 [...] 12/12/2022 06:18:25 PM at 0618 PATIENT NAME: FOSTERZEFERINOAMINTA BANEGAS [facility] 2022-12-08 06:46:00 [facility] ([facility]) OB Antepartum Prog Note REPORT#:[id number] REPORT STATUS: Signed REPORT INITIALIZATION DATE:12/08/22 TIME: 0646 PATIENT: FOSTERZEFERINOAMINTA BANEGAS UNIT #: [id number] ROOM/BED: [facility] : 92 AGE: 32 SEX: F ATTEND: [...] Plan Free Text A P: 32 y/o [facility] 02-20-23 [facility] at 29 3/7 weeks transported from [place] at 26.2 for sob, orthopnea, pulm edema. [...] keeping insulin same fornow. diab educ and car dumper saw again 12-02 glu sig drop. pt [...] and d/w dr jerez at 1254 RPT #:[id number] END OF REPORT [facility] 2022-12-07 08:54:00 [facility] ([facility]) OB Antepartum Prog Note REPORT#:[id number] REPORT STATUS: Signed REPORT INITIALIZATION DATE:12/07/22 TIME: 853 PATIENT: AMINTA NINO UNIT #: [id number] ROOM/BED: [address] : 92 AGE: 32 SEX: F [...] Plan Free Text A P: 32 y/o [facility] 02-20-23 [facility] at 29 2/7 weeks transported from [place] at 26.2 for sob, orthopnea, pulm edema. [...] same fornow. will have diab educ and car dumper see pt again soon. 12-02 glu sig [...] seen and d/w dr josé at 1434 [facility] #:[id number] END OF REPORT [facility] 2022-12-06 11:07:00 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 [...] 32 y/o EDC 02-20-23 [facility] at 29 1/7 weeks transported from [place] at 26.2 for sob, orthopnea, pulm edema. [...] over weekend. will have diab educ and car dumper see pt again soon. 9- glu sig drop. pt asympt. lunch [...] Nifedipine (PO) protocol prn at 1132 RPT #:[id number] END OF REPORT [facility] 2022-12-05 10:39:00 [facility] ([facility]) MFM Consultation Note REPORT#:[id number] REPORT STATUS: Signed DATE:12/05/22 TIME: 1039 PATIENT: AMINTA NINO UNIT #: [id number] ROOM/BED: [address] : 92 AGE: 32 SEX: F ATTEND: Jak Herrera MD ADM AUTHOR: Shabnam Jerez MD * ALL edits or amendments must be made on the electronic/computer document * History of Present Illness HPI Chief complaint: Transferred for [facility] History Past History Allergies: Coded Allergies: latex (SWELLING 11/15/22) Objective Physical Exam VS/I O: Last Documented: Result Date Time B/P Mean 115.0 12/05 918 B/P 142/96 12/05 918 Pulse 88 12/05 918 Pulse Ox 98 09/24 0918 Temp 98.4 12/04 2009 Resp 18 12/04 2009 PATIENT WEIGHT: Weight (lb): 250 Weight (oz): Weight (kg): 113.600 General appearance: alert, awake, no acute distress HEENT: normocephalic Cardiovascular: regular rate and rhythm Respiratory: clear to auscultation Abdomen: non-tender, soft Extremities: edema (trace) Neuro/PRESS PULLER: alert, oriented x 3, normal speech Skin: [...] 48 continue current care at 1109 RPT #:[id number] END OF REPORT [facility] 2022-12-04 15:53:00 [facility] ([facility]) OB Antepartum Prog Note REPORT#:[id number] REPORT STATUS: Signed DATE:12/04/22 TIME: 1553 PATIENT: AMINTA NINO UNIT #: [id number] ROOM/BED: [address] : 92 AGE: 32 SEX: F [...] P: Free Text A P: 32 y/o [facility] 02-20-23 [facility] at 28 6/7 weeks transported from [place] at 26.2 for sob, orthopnea, pulm edema. [...] over weekend. will have diab educ and car dumper see pt again soon. will review on [...] bv, urine gc/chlam neg at 1611 RPT #:[id number] END OF REPORT [facility] 2022-12-03 09:10:00 [facility] ([facility]) OB Antepartum Prog Note REPORT#:[id number] REPORT STATUS: Signed DATE:12/03/22 TIME: 909 PATIENT: AMINTA NINO UNIT #: [id number] ROOM/BED: [address] : 92 AGE: 32 SEX: F [...] Free Text A P: 32 y/o EDC 12-10-23 [facility] at 28 5/7 weeks transported from [place] at 26.2 for sob, orthopnea, pulm edema. [...] over weekend. will have diab educ and car dumper see pt again soon. will review on [...] and d/w Dr. jerez at 1308 RPT #:[id number] END OF REPORT [facility] 2022-12-02 06:57:00 [facility] ([facility]) OB Antepartum Prog Note REPORT#:[id number] REPORT STATUS: Signed DATE:12/02/22 TIME: 656 PATIENT: AMINTA NINO UNIT #: [id number] ROOM/BED: [address] : 92 AGE: 32 SEX: F [...] B/P 148/72 12/02 0626 Pulse 83 12/02 0626 Pulse Ox 99 12/02 2023 Temp 98.0 [...] [place] at 28 4/7 weeks transported from [place] at 26.2 for sob, orthopnea, pulm edema. [...] Consulted rohan, nutrition and DM counselor. fuctoisamine 9 198 9-21 glu sig drop. pt asympt. [...] and d/w Dr. josé at 1825 RPT #:[id number] END OF REPORT [facility] 2022-12-01 06:51:00 [facility] ([facility]) OB Antepartum Prog Note REPORT#:[id number] REPORT STATUS: Signed DATE:12/01/22 TIME: 650 PATIENT: AMINTA NINO UNIT #: [id number] ROOM/BED: [address] : 92 AGE: 32 SEX: F [...] [place] at 28 3/7 weeks transported from [place] at 26.2 for sob, orthopnea, pulm edema. [...] and d/w Dr. jerez at 1230 RPT #:[id number] END OF REPORT [facility] 2022-11-30 06:29:00 [facility] ([facility]) OB Antepartum Prog Note REPORT#:[id number] REPORT STATUS: Signed DATE:11/30/22 TIME: 628 PATIENT: AMINTA NINO UNIT #: [id number] ROOM/BED: [address] : 92 AGE: 32 SEX: F [...] 32 y/o EDC 02-20-23 [facility] at 28 2/7 weeks transported from [place] at 26.2 for sob, orthopnea, pulm edema. [...] 72D Consulted rohan nutrition and DM counselor. 9- min change in dexcon 7 readings. will reeval in am and adjust insulin by 15 % 11-29 reviewed dexcon7 w rohan, glu seems to be trending down, insulin incr by 15% to lantus 100/104, humalog B70, L81, D96. Ordered repeat fructosamine. will reeval wed 12-01 9-14 has dexcon 7 CGM, reviewed w dr [...] and d/w Dr. jerez at 1530 RPT #:[id number] END OF REPORT [facility] 2022-11-29 07:23:00 [facility] ([facility]) OB Antepartum Prog Note REPORT#:[id number] REPORT STATUS: Signed DATE:11/29/22 TIME: 722 PATIENT: AMINTA NINO UNIT #: [id number] ROOM/BED: [facility] : 92 AGE: 32 SEX: F ATTEND: [...] 101.0 11/29 0806 Pulse Ox 98 11/29 08 B/P 132/80 11/29 08 Temp 98.0 11/29 08 Pulse 87 11/29 0806 Resp 16 11/29 08 Vital Signs Date [...] Plan Free Text A P: 32 y/o [facility] 02-20-23 [facility] at 28 1/7 weeks transported from [place] at 26.2 for sob, orthopnea, pulm edema. [...] 72D Consulted orzeck, nutrition and DM counselor. 11-29 reviewed dexcon7 [...] Dr. ochoa and rohan at 1625 RPT #:[id number] END OF REPORT [facility] 2022-11-28 09:22:[address] [facility] [facility] ([facility]) OB Antepartum Prog Note REPORT#:[id number] REPORT STATUS: Signed DATE:11/28/22 TIME: 921 PATIENT: AMINTA NINO UNIT #: [id number] ROOM/BED: [facility]-A : 92 AGE: 32 SEX: F ATTEND: [...] Resp B/P B/P Mean Pulse Ox FiO2 /-11/28 97.6-98.4 83-89 17-18 133-147/64-73 91.0-101.0 98-99 PATIENT [...] 32 y/o EDC 02-20-23 [facility] at 28 weeks transported from [place] 11-15-22 at 26.2 for sob, orthopnea, pulm [...] sending -2: on lantus and humalog Consulted rohan, nutrition and DM counselor. 11-27: overnight glucose in 250s and fasting am [...] BV/trich/yeast; urine gc/chlam pending at 0927 RPT #:[id number] END OF REPORT [facility] 2022-11-27 09:57:00 [facility] ([facility]) OB Antepartum Prog Note REPORT#:[id number] REPORT STATUS: Signed DATE:11/27/22 TIME: 09 PATIENT: AMINTA NINO UNIT #: [id number] ROOM/BED: [address] : 92 AGE: 32 SEX: F [...] Result Date Time B/P Mean 101.0 11/27 08 Pulse Ox 99 11/27 816 B/P 138/76 [...] P: Free Text A P: 32 y/o [facility] 02-20-23 [facility] at 27 6/7 weeks transported from [place] at 26.2 for sob, orthopnea, pulm edema. [...] 72D Consulted rohan, nutrition and DM counselor. 9-16: overnight glucose [...] BV/trich/yeast; urine gc/chlam pending at 1004 RPT #:[id number] END OF REPORT [facility] 2022-11-26 10:33:00 [facility] ([facility]) Pulmonology Progress Note REPORT#:[id number] REPORT STATUS: Signed DATE:11/26/22 TIME: 1033 PATIENT: AMINTA NINO UNIT #: [id number] ROOM/BED: [address] : 92 AGE: 32 SEX: F [...] OB and MFM Diabetes with hyperglycemia per television presenter on case DVT risk: If she is [...] of the primary team at 1130 RPT #:[id number] END OF REPORT [facility] 2022-11-26 08:03:00 [facility] ([facility]) OB Antepartum Prog Note REPORT#:[id number] REPORT STATUS: Signed DATE:11/26/22 TIME: 802 PATIENT: AMINTA NINO UNIT #: [id number] ROOM/BED: [address] : 92 AGE: 32 SEX: F [...] Plan Free Text A P: 32 y/o [facility] 02-20-23 [facility] at 27 5/7 weeks transported from [place] at 26.2 for sob, orthopnea, pulm edema. [...] and d/w Dr. José at 1634 RPT #:[id number] END OF REPORT [facility] 2022-11-25 10:25:00 [facility] ([facility]) Pulmonology Progress Note REPORT#:[id number] REPORT STATUS: Signed DATE:11/25/22 TIME: 1025 PATIENT: AMINTA NINO UNIT #: [id number] ROOM/BED: [facility] : 92 AGE: 32 SEX: F ATTEND: [...] OB and MFM Diabetes with hyperglycemia per television presenter on case DVT risk: If she is [...] it. Mary with Dr. Hairston at 1029 [facility] #:[id number] END OF REPORT [facility] 2022-11-25 08:04:00 [id number] [place] [address] PATIENT NAME: AMINTA NINO ADMIT DATE: 11/14/22 ACCOUNT NO: [id number] ROOM NO: [facility] AGE: 32 REPORT TYPE: 360 - QUERY RESPONSE DOCUMENT SEX: F ADMITTING PHYSICIAN:Gibran Garnica MD ATTENDING PHYSICIAN:Gibran Garnica MD Provider Query QUERY TEXT: Specificity Heart Failure 360MD Query related questions should be directed to: [facility] Coding Query Helpline The medical record reflects [...] AM at 0804 PATIENT NAME: AMINTA NINO [facility] 2022-11-25 06:54:00 [facility] ([facility]) OB Antepartum Prog Note REPORT#:[id number] REPORT STATUS: Signed DATE:11/25/22 TIME: 653 PATIENT: AMINTA NINO UNIT #: [id number] ROOM/BED: [address] : 92 AGE: 32 SEX: F [...] 94 11/25 1210 Pulse Ox 98 11/25 0914 Temp 98.0 11/25 09 Resp 18 11/24 2035 Vital Signs Date Temp Pulse Resp B/P [...] 32 y/o [facility] 02-20-23 [place] at 27 4/7 weeks transported from [place] at 26.2 for sob, orthopnea, pulm edema. [...] and d/w Dr. José at 1456 RPT #:[id number] END OF REPORT [facility] 2022-11-24 14:08:00 [facility] ([facility]) Pulmonary Consultation Note REPORT#:[id number] REPORT STATUS: Signed DATE:11/24/22 TIME: 1408 PATIENT: AMINTA NINO UNIT #: [id number] ROOM/BED: [facility]A : 92 AGE: 32 SEX: F ATTEND: Jak Herrera MD ADM AUTHOR: Roderick Crocker MD * ALL edits or amendments must be made on the electronic/computer document * History of Present Illness HPI Requesting clinician: dr colindres Reason for consult: lu PCP: PCP: Carline Wilkerson MD HPI: Patient is a 32-year-old woman-0-1-0 [...] had an unremarkable echo was seen by MFM and thought had preeclampsia. Pulmonary is currently consulted for evaluation of sleep apnea. She has been diagnosed with sleep apnea for several years. She moved here approximately 2 years ago from [place] and apparently lost her CPAP in the [...] 0759 0805 Insulin Human Lispro 50 UNITS [facility] 11/18 0730 DC 11/24 SUBQ 01/17 0729 0858 Insulin Glargine 70 UNIT BID 11/18 1999 AC 11/24 SUBQ 01/16 195 0806 Hydroxyzine HCl 50 MG BEDTIME PRN 11/16 2100 AC 11/23 PO 01/15 2059 2037 Nifedipine 30 MG BID 11/17 1999 AC 11/24 PO 01/15 1959 0805 Enoxaparin Sodium 40 MG DAILY 11/16 1715 AC 11/24 SUBQ 12/16 1714 0807 Labetalol [...] % (Auto) (14.5 - 29.7 %) 22.8 [place] % (Auto) (3.6 - 10.2 %) 5.2 Eos % (Auto) (0.0 - 3.0 %) 0.4 Baso % (Auto) (0.1 - 0.9 %) 0.3 Neut # (Auto) (K/mm3) 10.2 Lymph # (Auto) (K/mm3) 3.3 [place] # (Auto) (K/mm3) 0.8 Eos # (Auto) (K/mm3) 0.06 Baso # (Auto) (K/mm3) 0.0 Laboratory Tests 11/23 1326 Serology Rubella Screen (IUnit/ml) 8.2 Laboratory Tests 11/22 11/22 1438 1438 Urines Urine Color (YELLOW) YELLOW Urine Appearance (CLEAR) CLEAR Urine pH (5 - 9) 6.0 Ur Specific [place] (1.001 - 1.035) 1.023 Urine Protein (NEG) [...] OB and MFM Diabetes with hyperglycemia per television presenter on case DVT risk: If she is [...] Case discussed with hospitalist at 1421 RPT #:[id number] END OF REPORT [facility] 2022-11-24 11:20:00 [facility] ([facility]) OB Antepartum Prog Note REPORT#:[id number] REPORT STATUS: Signed DATE:11/24/22 TIME: 1120 PATIENT: AMINTA NINO UNIT #: [id number] ROOM/BED: [address] : 92 AGE: 32 SEX: F [...] sleep apnea, had testing in [place] at [facility], but lost sleep mask between move here. [...] 2. Free Text A P: 32 y/o [facility] 02-20-23 [facility] at 27 2/7 weeks transported from [place] at 26.2 for sob, orthopnea, pulm edema. [...] in [place], much improved at 1139 RPT #:[id number] END OF REPORT [facility] 2022-11-23 11:52:00 [facility] ([facility]) OB Antepartum Prog Note REPORT#:[id number] REPORT STATUS: Signed DATE:11/23/22 TIME: 1152 PATIENT: AMINTA NINO UNIT #: [id number] ROOM/BED: [address] : 92 AGE: 32 SEX: F [...] says she feels very fatigued, and the television presenter told her it's because she's "extremely anemic." [...] % (Auto) (14.5 - 29.7 %) 22.8 [place] % (Auto) (3.6 - 10.2 %) 5.2 Eos % (Auto) (0.0 - 3.0 %) 0.4 Baso % (Auto) (0.1 - 0.9 %) 0.3 Neut # (Auto) (K/mm3) 10.2 Lymph # (Auto) (K/mm3) 3.3 [place] # (Auto) (K/mm3) 0.8 Eos # (Auto) (K/mm3) 0.06 Baso # (Auto) (K/mm3) 0.0 Urines Urine Color (YELLOW) YELLOW Urine Appearance (CLEAR) CLEAR Urine pH (5 - 9) 6.0 Ur Specific [place] (1.001 - 1.035) 1.023 Urine Protein (NEG) [...] [facility] at 27 1/7 weeks transported from [place] at 26.2 for sob, orthopnea, pulm edema. [...] celestone. bmz effect should pass by sat -. PLAN- cpm, SSI Pt aware has DM, [...] dinner increase to 70D at 1203 RPT #:[id number] END OF REPORT [facility] 2022-11-22 12:51:00 [facility] ([facility]) OB Antepartum Prog Note REPORT#:[id number] REPORT STATUS: Signed DATE:11/22/22 TIME: 1251 PATIENT: AMINTA NINO UNIT #: [id number] ROOM/BED: [address] : 92 AGE: 32 SEX: F [...] Plan Free Text A P: 32 y/o [facility] 02-20-23 [place] at 27 0/7 weeks transported from [place] at 26.2 for sob, orthopnea, pulm edema. [...] % (Auto) (14.5 - 29.7 %) 22.8 [place] % (Auto) (3.6 - 10.2 %) 5.2 Eos % (Auto) (0.0 - 3.0 %) 0.4 Baso % (Auto) (0.1 - 0.9 %) 0.3 Neut # (Auto) (K/mm3) 10.2 Lymph # (Auto) (K/mm3) 3.3 [place] # (Auto) (K/mm3) 0.8 Eos # (Auto) (K/mm3) 0.06 Baso # (Auto) (K/mm3) 0.0 Urines Urine Color (YELLOW) YELLOW Urine Appearance (CLEAR) CLEAR Urine pH (5 - 9) 6.0 Ur Specific [place] (1.001 - 1.035) 1.023 Urine Protein (NEG) [...] to contact for consult. at 1628 RPT #:[id number] END OF REPORT [facility] 2022-11-21 10:41:00 [id number] [place] [id number] PATIENT NAME: AMINTA NINO ADMIT DATE: 11/15/22 ACCOUNT NO: [id number] ROOM NO: 5048 AGE: 32 SEX: F ADMITTING PHYSICIAN: Jak Herrera MD ATTENDING PHYSICIAN: Jak Herrera MD DATE: 11/21/2022 ANTEPARTUM PROGRESS REPORT ATTENDING PHYSICIAN: [facility]. TIME OF EVALUATION: At approximately 10:20 [...] 162. ABDOMEN: Soft, nontender. Strip shows moderate qtit-ec-tcjz variability, positive accels. No regular contractions. PLAN: We will continue current care. Dictated By: Jose Roberto Webber MD Date Dictated: 11/21/2022 10:41:04 Date Transcribed: 11/21/2022 10:55:37 [facility]//JAMAL Receipt ID: [id number] Authenticated by Jose Roberto Webber MD On 11/21/2022 09:32:14 PM at 0932 PATIENT NAME: AMINTA NINOEL [facility] 2022-11-20 11:18:00 [id number] [place] [address] PATIENT NAME: AMINTA NINO ADMIT DATE: 11/15/22 ACCOUNT NO: [id number] ROOM NO: [facility] AGE: 32 SEX: F ADMITTING PHYSICIAN: Jak Herrera MD ATTENDING PHYSICIAN: Jak Herrera MD DATE: 11/20/2022 ANTEPARTUM REPORT ATTENDING PHYSICIAN: [facility] TIME OF EVALUATION: At approximately 10:55 [...] Dictated: 11/20/2022 11:18:43 Date Transcribed: 11/20/2022 11:44:50 [employer] CAMERAMAN/ABHAY/JAMAL Receipt ID: [id number] Authenticated by Jose Roberto Webber MD On 11/21/2022 09:32:14 PM at 0932 PATIENT NAME: AMINTA NINO [facility] 2022-11-19 15:24:00 [facility] ([facility]) OB Antepartum Prog Note REPORT#:[id number] REPORT STATUS: Signed DATE:11/19/22 TIME: 152 PATIENT: AMINTA NINO UNIT #: [id number] [address] AGE: 32 SEX: F ATTEND: [...] text A P: 32 y/o EDC 02-20-23 [facility] at 26 5/7 weeks transported from [place] at 26.2 for sob, orthopnea, pulm edema. [...] and d/w dr josé at 1529 RPT #:[id number] END OF REPORT [facility] 2022-11-18 06:43:00 [facility] ([facility]) OB Antepartum Prog Note REPORT#:[id number] REPORT STATUS: Signed DATE:11/18/22 TIME: 642 PATIENT: AMINTA NINO UNIT #: [id number] ROOM/BED: [address] : 92 AGE: 32 SEX: F [...] Text A P: 32 y/o EDC 02-20-23 [facility] at 26 4/7 weeks transported from [place] at 26.2 for sob, orthopnea, pulm edema. [...] by sat 9- 9. PLAN- cpm, SSI 11-18 we met w [...] and d/w dr josé at 1456 RPT #:[id number] END OF REPORT [facility] 2022-11-17 06:46:00 [facility] ([facility]) OB Antepartum Prog Note REPORT#:[id number] REPORT STATUS: Signed DATE:11/17/22 TIME: 645 PATIENT: AMINTA NINO UNIT #: [id number] ROOM/BED: [address] : 92 AGE: 32 SEX: F [...] 1203 B/P 126/61 11/17 1203 Pulse 81 / 1203 Pulse Ox 99 11/17 1202 Resp [...] Plan Free Text A P: 32 y/o [facility] 02-20-23 [place] at 26 3/7 weeks transported from [place] at 26.2 for sob, orthopnea, pulm edema. PNC w dr cristina clay 1) Pulm edema- echo at sending wnl, pt feels better since adm, had cxr on adm w min pulm edema. PLAN- cpm 2) Prematurity- bmz # 2 due 11-17, no mgso4 d/t pulm edema, no need for kiran consult at this pt 3) U/S 9-4 gei OB US;Coates Cephalic CGA c/w dates [...] and d/w dr josé at 1839 RPT #:[id number] END OF REPORT [facility] 2022-11-16 09:12:00 [facility] ([facility]) OB Antepartum Prog Note REPORT#:[id number] REPORT STATUS: Signed DATE:11/16/22 TIME: 911 PATIENT: AMINTA NINO UNIT #: [id number] ROOM/BED: [address] : 92 AGE: 32 SEX: F [...] 1235 B/P 128/75 11/16 1235 Pulse 88 / 1235 Pulse Ox 98 11/15 1805 Resp [...] (Auto) (14.5 - 29.7 %) 12.8 L [place] % (Auto) (3.6 - 10.2 %) 3.1 L Eos % (Auto) (0.0 - 3.0 %) 0.3 Baso % (Auto) (0.1 - 0.9 %) 0.2 Neut # (Auto) (K/mm3) 11.8 Lymph # (Auto) (K/mm3) 1.8 [place] # (Auto) (K/mm3) 0.4 Eos # (Auto) (K/mm3) 0.04 Baso # (Auto) (K/mm3) 0.0 Urines Ur Random Creatinine (mg/dL) 57.7 U Random Total Protein (mg/dL) 36.1 Protein/Creatinin Ratio (<200 625.6 H mg/gcrea) 11/15 2243 Chemistry POC Glucose (65 - 110 mg/dL) 258 H Diagnosis, Assessment Plan Diagnosis, Assessment Plan Free Text A P: 32 y/o [facility] 02-20-23 [facility] at 26 2/7 weeks transported from [place] at 26.2 for sob, orthopnea, pulm edema. [...] and d/w dr josé at 1816 RPT #:[id number] END OF REPORT [facility] 2022-11-15 23:19:00 [facility] ([facility]) [facility] Consultation Note REPORT#:[id number] REPORT STATUS: Signed DATE:11/15/22 TIME: 2318 PATIENT: AMINTA NINO UNIT #: [id number] ROOM/BED: [address] : 92 AGE: 32 SEX: F ATTEND: Jak Herrera MD ADM AUTHOR: Jak Herrera MD * ALL edits or amendments must be made on the electronic/computer document * History of Present Illness HPI Chief complaint: Transferred for [facility] HPI: H/O diabetes H/O obesity H/O recent episode of pneumonia History Past History Allergies: Coded Allergies: latex (SWELLING 11/15/22) Objective Physical Exam VS/I O: Last Documented: Result Date Time B/P Mean 88.0 11/16 2247 B/P 139/61 11/158 Pulse 93 11/15 2248 Pulse Ox 98 11/15 1805 Resp 17 11/15 1805 Temp 98.6 11/15 1600 PATIENT WEIGHT: Weight (lb): 250 Weight (oz): Weight (kg): 113.600 Results Findings/Data: Laboratory Tests 11/153 1738 1641 Chemistry Sodium (135 - 145 [...] (Auto) (14.5 - 29.7 %) 13.1 L [place] % (Auto) (3.6 - 10.2 %) 2.5 L Eos % (Auto) (0.0 - 3.0 %) 0.2 Baso % (Auto) (0.1 - 0.9 %) 0.3 Neut # (Auto) (K/mm3) 10.0 Lymph # (Auto) (K/mm3) 1.6 [place] # (Auto) (K/mm3) 0.3 Eos # (Auto) [...] for CPAP at night at 2337 RPT #:[id number] END OF REPORT [facility] 2022-11-15 16:48:00 [facility] ([facility]) Clinical Note REPORT#:[id number] REPORT STATUS: Signed DATE:11/15/22 TIME: 1647 PATIENT: AMINTA NINO UNIT #: [id number] ROOM/BED: 5048-A : 92 AGE: 32 SEX: F ATTEND: Jak Herrera MD ADM AUTHOR: Martín Terry MD * ALL edits or amendments must be made on the electronic/computer document * Clinical Note Note: Hospitalist Note (H P dictated:[id number]): 32 y/o Ab1 Lc0, accepted in transfer for [facility] (Dr. Herrera) from [place]. She had been admitted there 2 days [...] at bedtime for sleep. Her MD in [place] wished her transferred for management of her [...] order plans and Insulin dosaging. at 1701 RPT #:[id number] END OF REPORT [facility] 2022-11-15 16:47:00 [id number] [place] [address] PATIENT NAME: AMINTA NINO ADMIT DATE: 11/15/22 ACCOUNT NO: [id number] ROOM NO: .5048 AGE: 32 SEX: F ADMITTING PHYSICIAN: Jak [...] worsened. Upon presentation to the hospital in [place], she was admitted and cardiology consulted to [...] Dictated: 11/15/2022 16:47:24 Date Transcribed: 11/15/2022 17:18:33 /[facility] Receipt ID: [id number] Authenticated by Martín Terry MD On 11/26/2022 09:56:31 PM at 0956 PATIENT NAME: AMINTA NINO [facility] 2022-11-15 12:30:00 [facility] ([facility] Consultation Note REPORT#:[id number] REPORT STATUS: Signed DATE:11/15/22 TIME: 1230 PATIENT: AMINTA NINO UNIT #: [id number] ROOM/BED: [facility] : 92 AGE: 32 SEX: [...] globulin this preg: Monitor mode - UA: Byron units: Feeding preference: Delivery data Delivery date A: Delivery time infant A: Birthweight (gm) infant A: Weight (lb) A: Weight (oz) A: Gender A: 1 minute A: 5 minutes A: 10 minutes infant A: Cord pH obtained A: Vacuum time infant A: Vacuum # [...] Bag) Sertraline HCl 100 MG DAILY 11/14 0900 AC 11/15 (ZOLOFT) PO 12/14 0901 1014 Quetiapine Fumarate 100 MG BEDTIME 11/13 2100 AC 11/14 (SEROqueL) PO 12/13 Electrolytic, Caloric, And Ranulfo Sig/Deonna Start time Last Medication Dose Route Stop Time Status Admin Calcium Gluconate 1,000 MG ONCE ONE 11/15 914 DC (Calcium Gluconate IV 09/04 0916 10% 1,000 mg/10 mL Inj (B2)) Dextrose/Water [...] 113 Insulin Glargine 70 UNITS BID 11/15 0900 AC 11/15 (LANTUS) SUBQ 12/15 0901 1017 Insulin Glargine 80 UNITS BID 11/14 2100 DC 11/14 (LANTUS) SUBQ 12/14 210 205 Insulin Human Lispro 50 UNIT TID AC [...] 11/15 0710 O2 Flow Rate 2 11/13 2044 FiO2 21 11/13 191 24 hour I O ending at 0700: [...] no guarding, gravid Extremities: trace BLE edema Neuro/PRESS PULLER: alert, oriented x 3 Results Findings/Data: Laboratory [...] % (Auto) (14.1 - 45.4 %) 26.8 [place] % (Auto) (2.5 - 11.7 %) 7.2 Eos % (Auto) (0.0 - 6.2 %) 0.7 Baso % (Auto) (0.0 - 2.1 %) 0.3 Gran # (2.0 - 13.7 k/mm3) 7.05 Lymph # (Auto) (0.6 - 3.8 K/mm3) 2.96 [place] # (Auto) (0.11 - 0.59 K/mm3) 0.79 [...] DEHYDROGENASE(LDH) 11/15 1211 Complete at 1258 RPT #:[id number] [facility] OF [facility] 10:45:00 [facility] ([facility]) AIR[employer]OP SYSTEMS TECHNICIAN Consult Note - Brief REPORT#:[id number] REPORT STATUS: Signed DATE:11/15/22 TIME: 1045 PATIENT: AMINTA NINO UNIT #: [id number] ROOM/BED: [facility] : 92 AGE: 32 SEX: F ATTEND: Gibarn Garnica MD ADM AUTHOR: Ronnell Davalos MD * ALL edits or amendments must be made on the electronic/computer document * History of Present Illness HPI Reason for consult: possible PIH with severe feature Chief complaint: SOB PCP: PCP: Carline Wilkerson MD History of present illness: 32 y/o [...] Surgical History Additional surgical history: Denies Past AIRDROP SYSTEMS TECHNICIAN History Past OB history: : 2 Term: 0 : 0 Abortus: 1 Living children: 0 Social History Alcohol use: Denies EtOH use Drug use: Denies recreational drugs Smoking status for patients 13 years old or older: Former Smoker Date last smoked: 08/13/19 Medication/Allergy-Vaccine Hx Allergies: Coded Allergies: latex (UNKNOWN 04/10/22) OB-Manager Requirements Brief Consult Note Free Text A P: Dx: IUP 26 1/7 weeks with CHTN, pregestational Dm and pulmonary edema Plan: awaiting for echo result and if there is no underlying cardiac disease, pt [facility] for higher level of care. Start MagSO4 4 gm loading and 2 gm/hr. General appearance: alert, awake, obese, oriented Cardiovascular: normal heart sounds Respiratory: clear to auscultation Abdomen: non-tender, soft Extremities: edema (trace edema, normal DTR) at 1055 RPT #:[id number] END OF REPORT [facility] 2022-11-15 10:17:00 [id number] [address] PATIENT NAME: AMINTA NINO ADMIT DATE: 11/14/22 ACCOUNT NO: [id number] ROOM NO: [facility] AGE: 32 REPORT TYPE: eECHOCARDIOGRAM REPORT SEX: F ADMITTING PHYSICIAN:Gibran Garnica MD ATTENDING PHYSICIAN:Gibran Garnica MD Name: SHANNON NINOLY MARCIOtudy Date: 11/15/2022 10:17 AMPatient Location[facility] URN: [id number] BP: 132/75 mmHg Height: 60 in Gender: [...] comparison study available. Electronically signed by: Marv Cabarl MD 11/15/2022 11:49 AM Ordering Physician: Nahun Joseph MD Referring Physician: Referred, Self Performed By: Ella Shaver at 1149 PATIENT NAME: AMINTA NINO [facility] 2022-11-15 06:32:00 [facility] Family Medicine Progress Note REPORT#:[id number] REPORT STATUS: Signed DATE:11/15/22 TIME: 631 PATIENT: AMINTA NINO UNIT #: [id number] ROOM/BED: [facility] : 92 AGE: 32 SEX: [...] % (Auto) (14.1 - 45.4 %) 26.8 [place] % (Auto) (2.5 - 11.7 %) 7.2 Eos % (Auto) (0.0 - 6.2 %) 0.7 Baso % (Auto) (0.0 - 2.1 %) 0.3 Gran # (2.0 - 13.7 k/mm3) 7.05 Lymph # (Auto) (0.6 - 3.8 K/mm3) 2.96 [place] # (Auto) (0.11 - 0.59 K/mm3) 0.79 [...] awaiting that to be done, contacted the obstetrical tech and stressed need to have done immediately holding steroids for fetus given the severe BG issues and insulin resistance IV mag ordered to be started per MFM recs at 0837 at 1048 RPT #:[id number] END OF REPORT [facility] 2022-11-14 11:09:00 [facility] ([facility]) Cardiology Consultation REPORT#:[id number] REPORT STATUS: Signed DATE:11/14/22 TIME: 1109 PATIENT: AMINTA NINO UNIT #: [id number] ROOM/BED: [facility] : 92 AGE: 32 SEX: [...] time, her PCP referred her to a college specialist (unknown name/ location) that she was to [...] 2+ peripheral pulses Musculoskeletal: normal inspection, [place] Neuro/PRESS PULLER: alert, oriented X 3, normal speech Skin: [...] 28 mmol/L) 19.7 L Laboratory Tests 11/14 171 Chemistry Sodium (133 - 144 mmol/L) 134.0 [...] % (Auto) (14.1 - 45.4 %) 31.0 [place] % (Auto) (2.5 - 11.7 %) 6.8 Eos % (Auto) (0.0 - 6.2 %) 1.0 Baso % (Auto) (0.0 - 2.1 %) 0.2 Gran # (2.0 - 13.7 k/mm3) 6.17 Lymph # (Auto) (0.6 - 3.8 K/mm3) 3.19 [place] # (Auto) (0.11 - 0.59 K/mm3) 0.70 [...] - 8.0 pH UNITS) 6.5 Ur Specific [place] (1.001 - 1.035 SG) 1.030 Urine Protein [...] Antigen - COMP NASAL Laboratory Tests 11/13 1432 Chemistry B-Natriuretic Peptide (0.00 - 100.00 PG/ML) < 30.00 Radiology Data: Recent Impressions: RADIOLOGY - XR CHEST 1 V 11/13 1406 Report Impression - Status: SIGNED Entered: 11/13/2022 1420 IMPRESSION: Diffuse interstitial opacities in both lungs due to pulmonary edema versus pneumonia. Impression By: Zena Lockhart MD ULTRASOUND - US FET BIO PH GA W/O NST 11/13 1510 Report Impression - Status: SIGNED Entered: 11/13/2022 1621 IMPRESSION: 1. Viable fetus with heart rate of 150 bpm. 2. Biophysical profile score is 8 out of 8. 3. MATHEUS lower normal at 7.45 Impression By: RashidaLJKenrick Forman MD Results: labs reviewed, vital signs [...] any questions or concerns. at 1436 RPT #:[id number] END OF REPORT [facility] 2022-11-14 04:14:00 [facility] Family Medicine Progress Note REPORT#:[id number] REPORT STATUS: Signed DATE:11/14/22 TIME: 413 PATIENT: AMINTA NINO UNIT #: [id number] [facility] AGE: 32 SEX: [...] % (Auto) (14.1 - 45.4 %) 31.0 [place] % (Auto) (2.5 - 11.7 %) 6.8 Eos % (Auto) (0.0 - 6.2 %) 1.0 Baso % (Auto) (0.0 - 2.1 %) 0.2 Gran # (2.0 - 13.7 k/mm3) 6.17 Lymph # (Auto) (0.6 - 3.8 K/mm3) 3.19 [place] # (Auto) (0.11 - 0.59 K/mm3) 0.70 H Eos # (Auto) (0.0 - 0.4 K/mm3) 0.10 Baso # (Auto) (0.0 - 0.1 K/mm3) 0.02 Immature Gran % (0.0 - 2.0 %) 1.0 Nucleated RBC % (0.0 - 1.0 /100WBC%) 0.0 Nucleated RBCs # (0.0 - 0.05 K/mm3) 0.00 Laboratory Tests 11/13 143 Serology SARS-CoV-2 Ag (Rapid) (Neg) Negative Laboratory Tests 11/13 1433 Urines Ur Random Creatinine (30 - 150 MG/DL) 89.4 U Random Total Protein (0.0 - 12.0 MG/DL) 39.2 H Protein/Creatinin Ratio (0.0 - 200.0 MG/GRAM) 438.0 H 11/13 1433 Urines Urine Color (YELLOW DESCRIPT) LIGHT-YELLOW Urine Appearance (CLEAR DESCRIPT) CLEAR Urine pH (4.6 - 8.0 pH UNITS) 6.5 Ur Specific [place] (1.001 - 1.035 SG) 1.030 Urine Protein [...] pulmonary edema versus pneumonia. Impression By: Zena - Monse Lockhart MD ULTRASOUND - US FET BIO PH GA W/O NST 11/13 1510 Report Impression - [...] for pt, she recommended waiting on a [facility] consult for pt at 0931 at 0935 RPT #:[id number] END OF REPORT [facility] 2022-11-13 18:06:00 [facility] ([facility]) History Physical - Adult REPORT#:[id number] REPORT STATUS: Signed DATE:11/13/22 TIME: 1806 PATIENT: AMINTA NINO UNIT #: [id number] ROOM/BED: [facility] : 92 AGE: 32 SEX: F ATTEND: Gibran Garnica MD ADM AUTHOR: Cyn Delarosa DO R1 * ALL edits or amendments must be made on the electronic/computer document * Cyn Delarosa 11/13/221805: History of Present Illness HPI Chief complaint: [...] not relieved symptoms. Patient reports seeing outpatient college specialist who recommended further studies to evaluate her [...] calf tenderness Musculoskeletal: full range of motion Neuro/PRESS PULLER: alert, oriented X 3, normal speech, no [...] - 8.0 pH UNITS) 6.5 Ur Specific [place] (1.001 - 1.035 SG) 1.030 Urine Protein [...] at 1999 at 2016 at 0931 RPT #:[id number] END OF REPORT [facility] 2022-[facility]-13 17:01:00 [facility] ([facility]) Hospitalist Consultation REPORT#:[id number] REPORT STATUS: Signed REPORT INITIALIZATION DATE:11/13/22 TIME: 1700 PATIENT: AMINTA NINO UNIT #: [id number] ROOM/BED: [facility] : 92 AGE: 32 SEX: [...] internal medicine was consulted for medical management AIRDROP SYSTEMS TECHNICIAN is the primary for this the primary [...] - 8.0 pH UNITS) 6.5 Ur Specific [place] (1.001 - 1.035 SG) 1.030 Urine Protein [...] MD ULTRASOUND - US FET BIO PH GA W/O NST 11/13 1510 Report Impression - [...] per family medicine service at 0652 RPT #:[id number] END OF REPORT [facility] 2022-11-13 14:27:00 [facility] ([facility]) EMERGENCY PROVIDER REPORT REPORT#:[id number] REPORT STATUS: Signed DATE:11/13/22 TIME: 1427 PATIENT: AMINTA NINO UNIT #: [id number] ROOM/BED: [address] AGE: 32 SEX: F PCP PHYS: Carline Wilkerson MD SERVICE AUTHOR: Billy Fermin DO * [...] - 8.0 pH UNITS) 6.5 Ur Specific [place] (1.001 - 1.035 SG) 1.030 Urine Protein [...] MD ULTRASOUND - US FET BIO PH GA W/O NST 11/13 1510 Report Impression - Status: SIGNED Entered: 11/13/2022 1621 IMPRESSION: 1. Viable fetus with heart rate of 150 bpm. 2. Biophysical profile score is 8 out of 8. 3. MAHTEUS lower normal at 7.45 Impression By: [email or web address] [...] 20 MG X1ED STA 11/13 1602 DC 11/13 IV 11/13 1603 1623 Patient Discharge Departure [...] 1600 Temp 98.3 11/13 1600 Pulse 97 / 1600 Resp 18 11/13 1600 O2 Delivery [...] eval, agrees with plan at 0835 RPT #:[id number] END OF REPORT [facility] 2022-11-13 13:42:00 [facility] ([facility]) EMERGENCY PROVIDER REPORT REPORT#:[id number] REPORT STATUS: Signed DATE:11/13/22 TIME: 1342 PATIENT: AMINTA NINO UNIT #: [id number] ROOM/BED: AGE: 32 SEX: F PCP PHYS: Carline Wilkerson MD SERVICE DT: AUTHOR: Giovana Davies APRN [...] older: Unknown,if ever smoked at 1342 RPT #:[id number] END OF REPORT [facility] 2022-08-21 13:28:00 [id number] [address] PATIENT NAME: AMINTA NINO ADMIT DATE: 08/19/22 ACCOUNT NO: [id number] ROOM NO: B123 AGE: 32 REPORT TYPE: DISCHARGE SUMMARY SEX: [...] has been already arranged for her to pickle processor. I did not send a new prescription. DISCHARGE DIAGNOSES: Uncontrolled diabetes, . She does go see a high risk OB. Dictated By: Kay Merchant MD Date Dictated: 08/21/2022 13:28:21 Date Transcribed: 08/21/2022 22:04:27 [facility] Receipt ID: [id number] Authenticated by Kay Merchant MD On 08/22/2022 02:15:19 PM at 0215 PATIENT NAME: AMINTA NINO [facility] 2022-08-20 16:13:00 [id number] [place] [address] PATIENT NAME: AMINTA NINO ADMIT DATE: 08/19/22 ACCOUNT NO: [id number] ROOM NO: B.123 AGE: 32 REPORT TYPE: DISCHARGE SUMMARY SEX: F ADMITTING PHYSICIAN:Gavino Mercado MD ATTENDING PHYSICIAN:Gavino Mercado MD ADMISSION DATE: 08/19/2022 18:18:00 DISCHARGE DATE: PRIMARY CARE PHYSICIAN: Dr. Carline Wilkerson. HOSPITAL COURSE: The patient is a 32-year-old [...] here as she is and obviously her AIRDROP SYSTEMS TECHNICIAN has instructed her to have blood sugars less than 200. Dictated By: Gavino Craven MD Date Dictated: 08/20/2022 16:13:07 Date Transcribed: 08/20/2022 23:54:13 /[facility] Receipt ID: [id number] Authenticated by Gavino Craven MD On 08/31/2022 04:25:36 PM PATIENT NAME: AMINTA NINO at 0425 PATIENT NAME: AMINTA NINO [facility] 2022-08-20 16:12:00 [facility] ([facility]) AKASH PROGRESS NOTE REPORT#:[id number] REPORT STATUS: Signed DATE:08/20/22 TIME: 161 PATIENT: AMINTA NINO UNIT #: [id number] ROOM/BED: [address] : 92 AGE: 32 SEX: F ATTEND: Gavino Mercado MD ADM AUTHOR: Gavino Craven MD * ALL edits or amendments must be made on the electronic/computer document * Progress Note Progress Note [id number] at 1613 RPT #:[id number] END OF REPORT [facility] 2022-08-19 23:34:00 [facility] ([facility] Hospitalist History Physical REPORT#:[id number] REPORT STATUS: Signed DATE:08/19/22 TIME: 2333 PATIENT: AMINTA NINO UNIT #: [id number] ROOM/BED: [address] : 92 AGE: 32 SEX: F ATTEND: Gavino Mercado MD ADM AUTHOR: Gavino Mercado MD * ALL edits or amendments must be made on the electronic/computer document * History of Present Illness HPI Chief complaint: Hypoglycemia PCP: PCP: Carline Wilkerson MD HPI: This is a 32-year-old female who is 13 weeks has history of diabetes hypertension she takes 36-unit of Lantus twice a day and 38 units of Humalog 3 times a day she ran out of Humalog and her blood sugar was around [address] Srinivasan who is her AIRDROP SYSTEMS TECHNICIAN who advised her to come to the [...] % (Auto) (14.1 - 45.4 %) 23.5 [place] % (Auto) (2.5 - 11.7 %) 6.7 Eos % (Auto) (0.0 - 6.2 %) 0.5 Baso % (Auto) (0.0 - 2.1 %) 0.2 Gran # (2.0 - 13.7 k/mm3) 8.85 Lymph # (Auto) (0.6 - 3.8 K/mm3) 3.04 [place] # (Auto) (0.11 - 0.59 K/mm3) 0.86 [...] - 8.0 pH UNITS) 7.5 Ur Specific [place] (1.001 - 1.035 SG) 1.030 Urine Protein [...] Resp B/P B/P Mean Pulse Ox FiO2 / 36.8 101 16 160/86 110 97 Last Documented: Result Date Time Pulse Ox 97 08/19 1817 B/P 160/86 08/19 1818 B/P Mean 110 / 1818 O2 Delivery Room air 08/19 1817 Temp 36.8 08/19 181 Pulse 101 / 1818 Resp 16 08/19 1818 Patient Weight and BMI Weight (kg): 106.818 BMI: 49.2 General appearance: awake Cardiovascular: regular rate rhythm Respiratory: decreased breath sounds Abdomen: non-tender Neuro/PRESS PULLER: alert Diagnosis, Assessment Plan Free Text A P: Diabetes mellitus with hyperglycemia Out of insulin Continue her home insulin regimen Cover with insulin sliding scale 13-week Follow-up with Dr. Clay Hypertension Optimize blood pressure control DVT prophylaxis SCD advanced directive discussed Medication reviewed and reconciled I will sign off at 6 AM today further management by incoming MD thereafter at 2337 RPT #:[id number] END OF REPORT [facility] 2022-08-19 19:40:00 [facility] ([facility]) EMERGENCY PROVIDER REPORT REPORT#:[id number] REPORT STATUS: Signed DATE:08/19/22 TIME: 1939 PATIENT: AMINTA NINO UNIT #: [id number] ROOM/BED: [address] AGE: 32 SEX: F PCP PHYS: Carline Wilkerson MD SERVICE AUTHOR: Paul Dykes * ALL [...] Temp 98.2 08/19 1817 Pulse 101 08/19 1818 Resp 16 08/19 1817 Last Documented: Result Date Time Pulse Ox 97 08/19 1818 B/P 160/86 08/19 1818 B/P Mean 110 08/19 1818 O2 Delivery Room air 08/19 181 Temp 98.2 08/19 181 Pulse 101 08/19 1818 Resp 16 08/198 Review of Vital Signs Unavailable, Vital signs [...] % (Auto) (14.1 - 45.4 %) 23.5 [place] % (Auto) (2.5 - 11.7 %) 6.7 Eos % (Auto) (0.0 - 6.2 %) 0.5 Baso % (Auto) (0.0 - 2.1 %) 0.2 Gran # (2.0 - 13.7 k/mm3) 8.85 Lymph # (Auto) (0.6 - 3.8 K/mm3) 3.04 [place] # (Auto) (0.11 - 0.59 K/mm3) 0.86 [...] - 8.0 pH UNITS) 7.5 Ur Specific [place] (1.001 - 1.035 SG) 1.030 Urine Protein [...] 1,000 ML X1ED STA 08/19 1821 DC / IV 08/19 1822 1842 Hormones And Synthetic [...] [N/A] Discussed with: Dr. Friedman and Dr. Mecrado Consider admission for: Hyperglycemia Treatment and disposition: [...] 1818 Pulse 101 06/08 1818 Resp 16 06/08 1818 Last Documented: Result Date Time Pulse Ox 97 06/08 1818 B/P 160/86 /08 1818 B/P Mean 110 06/08 1818 O2 Delivery Room air 06/08 1818 Temp 98.2 06/08 1818 Pulse 101 06/08 1818 Resp 16 06/08 1818 All vital signs available at the [...] Physician Note MidLv/Doc Saw Pt 2 The PA/SHANK CUTTER has seen the patient and I have performed this visit along with the involvement of the PA/SHANK CUTTER. I agree with the PA/senior mechanical engineer findings and plan. I have performed all aspects of MDM as documented including: evaluation of the patient/ patient's condition(s), review and analysis of available data, and determination of risk of patient management decisions. at 1659 at 2301 RPT #:[id number] END OF REPORT [facility] 2022-08-10 16:28:00 [facility] ([facility]) EMERGENCY PROVIDER REPORT REPORT#:[id number] REPORT STATUS: Signed DATE:08/10/22 TIME: 1628 PATIENT: AMINTA NINO UNIT #: [id number] ROOM/BED: AGE: 32 SEX: F PCP PHYS: Carline Wilkerson MD SERVICE AUTHOR: Renita Ballard MD * ALL edits or amendments must be made on the electronic/computer document * HPI-General Illness Free Text HPI Notes Free Text HPI Notes 32-year-old female 12 weeks presents with elevated blood sugars after running out of her insulin this weekend. She also reports a fall through the floor this weekend for which she went to Sneads. She is still having significant pain in [...] - 8.0 pH UNITS) 7.0 Ur Specific [place] (1.001 - 1.035 SG) 1.016 Urine Protein [...] Report Impression - Status: SIGNED Entered: 08/10/2022 8794 IMPRESSION: 1. Subtle linear lucency along the lateral aspect of the humeral head, favored to represent a vascular channel. A subtle, nondisplaced, hairline fracture is thought to be unlikely, but would be difficult to completely exclude on the basis of this imaging. Consider correlation with point tenderness. 2. No other acute bony abnormality. Impression By: [email or web address] - Pasha Agrawal MD ECG #1 Interpretation Text/Dict Note EKG time 1427 rate 104 T wave inversion in 3 otherwise unremarkable sinus Procedures Free Text Proc Notes Additional Text OB ultrasound shows a heart rate around 160 Re-Evaluation MDM Re-Evaluation/Progress #1 Text/Dict Note MEDICAL DECISION MAKING Number and Complexity of Problems Differential Diagnosis: DKA hyperglycemia dehydration multisystem trauma humerus fracture [facility] Data External documents reviewed: NA My EKG [...] her prior insulin regimen which she can pickle processor today Shared decision making: I discussed the pros and cons of all options with the patient and engaged in shared-decision making. Code status: Full code Time of Re-Eval 1632 Re-Eval Status Improved ED Course Medication(s) Ordered Medication(s) Ordered: Electrolytic, Caloric, And Ranulfo Sig/Deonna Start time Last Medication Dose Route Stop Time Status Admin Lactated Ringer's 1,000 ML X1ED STA 05 1559 DC 05/30 IV 05/30 1600 1802 Sodium Chloride 1,000 ML X1ED STA 08/10 1331 DC 05/30 IV 05/30 1430 1548 Hormones And Synthetic Substit Sig/Deonna Start time Last Medication Dose Route Stop Time Status Admin Insulin Human Regular 10 UNIT X1ED STA 08/10 1558 DC 05/30 SUBQ / 1559 1638 Patient Discharge Departure Vital Signs/Condition Vital Signs First Documented: Result Date Time Pulse Ox 99 08/10 1329 B/P 151/92 08/10 1329 B/P Mean 111 08/10 1329 Temp 98.4 05 1329 Pulse 106 08/10 1329 Resp 18 08/10 1329 Last Documented: Result Date Time Pulse Ox 99 08/10 1919 B/P 126/67 08/10 191 Pulse 94 05/ 1919 Resp 18 08/10 191 B/P Mean 111 / 1329 Temp 98.4 05 1329 All vital signs available at the time of this entry have been reviewed. Clinical Impression Clinical Impression Primary Impression: Fall Secondary Impressions: Hyperglycemia, Shoulder pain, right Disposition Decision Discharge )( Discharged to Home Yes )( Time 185 )( Date 08/10/22 Discharge/Care Plan Patient Instructions [...] shoulder frequently and return or see an business services specialist sales if the pain is not improving in [...] will need outpatient follow-up. at 1931 RPT #:[id number] END OF REPORT [facility] 2022-08-10 13:33:00 [facility] ([facility]) EMERGENCY PROVIDER REPORT REPORT#:[id number] REPORT STATUS: Signed DATE:08/10/22 TIME: 1332 PATIENT: AMINTA NINO UNIT #: [id number] ROOM/BED: AGE: 32 SEX: F PCP PHYS: Carline Wilkerson MD SERVICE AUTHOR: Lydia Tobin * ALL [...] Current every day smoker at 2149 RPT #:[id number] END OF REPORT [facility] 2022-08-07 16:07:00 [facility] ([facility]) EMERGENCY PROVIDER REPORT REPORT#:[id number] REPORT STATUS: Signed DATE:08/07/22 TIME: 1607 PATIENT: AMINTA NINO UNIT #: [id number] ROOM/BED: AGE: 32 SEX: F PCP PHYS: Carline Wilkerson MD SERVICE AUTHOR: Andrea Marcos MD * ALL edits or amendments must be made on the electronic/computer document * HPI-General Illness Free Text HPI Notes Free Text HPI Notes 32-year-old female sent here by her [employer] TECHNICIAN because of blood sugars been above 200. 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 She [...] Ox 100 08/07 1717 B/P 118/73 08/07 171 Pulse 97 08/07 1714 B/P Mean 105 08/07 1530 O2 Delivery Room air 08/07 1530 Temp 97.8 08/07 1530 Resp 20 08/07 153 Review of Vital Signs Reviewed Basic Physical [...] Maternal Serum HCG (0 - 3 mi-IU/ML) 19618 H Urines Urine Color (YELLOW DESCRIPT) LIGHT-YELLOW Urine Appearance (CLEAR DESCRIPT) CLEAR Urine pH (4.6 - 8.0 pH UNITS) 6.5 Ur Specific [place] (1.001 - 1.035 SG) 1.035 Urine Protein [...] have her follow-up with her high school computer science teacher. Nothing further to do. She is [...] with High Blood Sugar at 2002 RPT #:[id number] END OF REPORT [facility] 2022-08-07 15:31:00 [facility] ([facility]) EMERGENCY PROVIDER REPORT REPORT#:[id number] REPORT STATUS: Signed DATE:08/07/22 TIME: 153 PATIENT: AMINTA NINO UNIT #: [id number] ROOM/BED: AGE: 32 SEX: F PCP PHYS: Carline Wilkerson MD SERVICE AUTHOR: Lydia Tobin * ALL [...] use Drug Use Denies recreational drugs at 1745 RPT #:[id number] END OF REPORT [facility] 2022-07-13 17:51:00 [facility] ([facility]) EMERGENCY PROVIDER REPORT REPORT#:[id number] REPORT STATUS: Signed DATE:07/13/22 TIME: 175 PATIENT: AMINTA NINO UNIT #: [id number] ROOM/BED: AGE: 32 SEX: F PCP PHYS: Carline Wilkerson MD SERVICE AUTHOR: Alba Toro SHANK CUTTER * ALL edits or amendments must be [...] without success. at 1753 at 0403 RPT #:[id number] END OF REPORT [facility] 2022-04-10 15:23:00 [facility] ([facility]) EMERGENCY PROVIDER REPORT REPORT#:[id number] REPORT STATUS: Signed DATE:04/10/22 TIME: 1523 PATIENT: AMINTA NINO UNIT #: [id number] ROOM/BED: AGE: 31 SEX: F PCP PHYS: Carline Wilkerson MD SERVICE AUTHOR: Alba Toro NP * ALL edits or amendments must [...] Care at Time 1445 Date 04/10/22 PCP Carline Wilkerson Provider in Triage PE General/Const No acute [...] Instructions You can use Tylenol or ibuprofen [id number] as needed for pain. Follow the package [...] sugar reading. You can follow-up with an [employer] TECHNICIAN within the next week and discuss this visit today. Return to the ER for any worsening or concerning symptoms, including but not limited to: Fever which is 100.4 F or higher, redness/worsening pain/swelling to either breast, open wounds or discharge from either breast/nipple. Departure Forms [facility] PCP LIST OBGYN BY AREA WORK/SCHOOL EXCUSE [...] Smoking Cessation Screened, non user Cory Mckeon Danial 04/10/22 1746: Physical Exam Vital Signs Vital Signs First Documented: Result Date Time Pulse Ox 95 04/10 1330 B/P 137/92 04/10 1330 B/P Mean 107.1 04/10 1330 O2 Delivery Room air 04/10 133 Temp 98.2 04/10 1330 Pulse 87 04/10 133 Resp 16 04/10 1329 Last Documented: Result Date Time Pulse Ox 98 04/10 1813 B/P 144/94 04/10 1813 B/P Mean 110.2 04/10 1813 O2 Delivery Room air 04/10 1813 Temp 98.1 04/10 181 Pulse 81 04/10 1813 Resp 18 04/10 1813 Interpretation Diagnostics Lab [...] % (Auto) (20.5 - 45.5 %) 38.9 [place] % (Auto) (5.5 - 11.7 %) 6.4 Eos % (Auto) (0.9 - 2.9 %) 0.7 L Baso % (Auto) (0.2 - 1.0 %) 0.3 Neut # (Auto) (2.2 - 4.8 x10 3/uL) 4.77 Lymph # (Auto) (1.3 - 2.9 x10 3/uL) 3.48 H [place] # (Auto) (0.3 - 0.8 x10 3/uL) [...] B/P 144/94 04/10 181 B/P Mean 110.2 04/104 O2 Delivery Room air 04/10 1813 Temp 98.1 04/10 181 Pulse 81 04/10 1814 Resp 18 04/10 1814 All vital signs available at the time of this entry have been reviewed. Supervising Physician Note Gisselle Saw Pt Alone I have reviewed the PA/SHANK CUTTER's note and plan of care. I was available for consultation as needed at all times during the patient's visit in the emergency department. I agree with the clinical impression, plan and disposition. at 1747 at 0017 RPT #:[id number] END OF REPORT [facility] 2022-04-10 13:54:00 [facility] ([facility]) EMERGENCY PROVIDER REPORT REPORT#:[id number] REPORT STATUS: Signed DATE:04/10/22 TIME: 1354 PATIENT: AMINTA NINO UNIT #: [id number] ROOM/BED: AGE: 31 SEX: F PCP PHYS: Carline Wilkerson MD SERVICE AUTHOR: Colette Panda * ALL [...] bipolar DM at 1403 at 1722 at 0231 RPT #:[id number] END OF REPORT [facility] 2021-03-19 01:24:00 [facility] ([facility]) EMERGENCY PROVIDER REPORT REPORT#:[id number] REPORT STATUS: Signed DATE:03/19/21 TIME: 012 PATIENT: AMINTA NINO UNIT #: [id number] ROOM/BED: AGE: 30 SEX: F PCP PHYS: [...] Extremities: pedal pulses intact, moving extremities spontaneously. Neuro/PRESS PULLER: alert, oriented X 3, follows commands, CNII-XII intact bilaterally. Interpretation Diagnostics Lab Results Interpretation Considerations Independ review imaging, Reviewed prior records Results Laboratory Tests 03/18/212143: [Embedded Image Not Available] Laboratory Tests: 03/19 03/18 03/18 0253 2144 214 Chemistry Sodium (137 - 145 mmol/L) 140 [...] % (Auto) (20.5 - 45.5 %) 21.9 [place] % (Auto) (5.5 - 11.7 %) 8.6 Eos % (Auto) (0.9 - 2.9 %) 0.3 L Baso % (Auto) (0.2 - 1.0 %) 0.3 Neut # (Auto) (2.2 - 4.8 x10 3/uL) 11.71 H Lymph # (Auto) (1.3 - 2.9 x10 3/uL) 3.74 H [place] # (Auto) (0.3 - 0.8 x10 3/uL) 1.47 H Eos # (Auto) (0.0 - 0.2 x10 3/uL) 0.05 Baso # (Auto) (0.0 - 0.1 x10 3/uL) 0.05 Immature Gran % (0.0 - 2.0 %) 0.4 Nucleated RBC % (0 - 1.0 %) 0.0 Toxicology [place] (0.6 - 1.2 mmol/L) < 0.2 L Urines Urine Color (Yellow) Yellow Urine Appearance (Clear) Slightly-Cloudy Urine pH (5.0 - 8.0) 6.0 Ur Specific [place] (<1.030) 1.014 Urine Protein (Negative mg/dL) 30 [...] STA 03/18 2010 DC 03/18 IV 03/18 Patient Discharge Departure Vital Signs/Condition Vital Signs [...] )( Discharged to Home eloped )( Time 031 )( Date 03/19/21 Elopement Note Elopement Note [...] at 0440 at 0957 at 0141 RPT #:[id number] END OF REPORT [facility] 2021-03-18 20:13:00 [facility] ([facility]) EMERGENCY PROVIDER REPORT REPORT#:[id number] REPORT STATUS: Signed DATE:03/18/21 TIME: 2012 PATIENT: AMINTA NINO UNIT #: [id number] ROOM/BED: AGE: 30 SEX: F PCP PHYS: [...] LMP: 2 days ago but also has [facility] PMH-Provider in Triage Stated Complaint TREMORS,NAUSEA Allergies Coded Allergies: No Known Allergies (03/18/21) at 0246 at 0059 RPT #:[id number] END OF REPORT [facility]
[2024-11-02] MEDS ORDERED: NA CHLORIDE 0.9% 2,000 ML ONE (15:39)
[2024-11-02 15:42] LABS: Absolute Lymphocytes (CBC) 3.2 K/uL (0.7-4.9); Hematocrit 41.2 % (36.0-45.0); Hemoglobin 14.4 g/dL (12.0-15.0); MCH 28.0 pg (27.0-35.0); MCHC 35.0 g/dL (32.0-36.0); MCV 80.1 fL (80-100); MPV 7.6 fL (7.6-11.3); Nucleated RBC Absolute Count 0.0 (0-0); Nucleated Red Blood Cells % 0.0 % (0-0); RBC Red Blood Cell Count 5.15 M/uL (3.86-4.86); White Blood Count 8.80 thou/uL (4.3-10.9)
[2024-11-02 15:53] LABS: PCO2, Venous Blood Gas 40 mmHg (41-51); PH, Venous Blood Gas 7.39 (7.32-7.42); PO2, Venous Blood Gas 87 mmHg (25-40)
[2024-11-02 15:55] LABS: Base Excess, VBG -0.8 mmol/L (-2.0-3.0); HCO3, Venous Blood Gas 24.2 mmol/L (21.0-29.0); O2 Saturation, VBG 96.5 % (40.0-70.0)
[2024-11-02 16:01] LABS: Urine Microscopic Reflex YN NO UMIC
[2024-11-02 16:04] LABS: ALT/SGPT 36.0 U/L (13-56); AST/SGOT 23.0 U/L (15-37); Albumin 3.3 g/dL (3.4-5.0); Albumin/Globulin Ratio 0.8 (1.1-1.8); Alkaline Phosphatase 98.0 U/L (45-117); Anion Gap 12.7 mEq/L (5.0-15.0); BUN Blood Urea Nitrogen 8.0 mg/dL (7-18); Globulin 4.1 g/dL (2.3-3.5); Lipase 41.0 U/L (13-75); Magnesium 1.8 mg/dL (1.6-2.4); Potassium 3.7 mEq/L (3.5-5.1)
[2024-11-02 16:09] LABS: Glucose Level 471.0 mg/dL (74-106)
[2024-11-02] MEDS ORDERED: KETOROLAC 30 MG/ML INJ ONE (17:37)
[2024-11-02] MEDS ORDERED: INSULIN REGULAR (HUMAN) 100 UNIT/ML ONE (17:37)
--- NOTE | 2024-11-02 18:07 | ER ---
Nurse's Notes [facility] Name: Aminta Bell Age: 34 yrs Sex: Female : 1990 Arrival Date: 11/02/2024 Time: 13:54 Bed 5 Private MD: Diagnosis: Hyperglycemia, unspecified Presentation: 11/02 14:03 Chief complaint: Patient states: BARBER 8/10, high blood pressure, Hi blood sugar, 442 in me1 triage. Seeing spots. 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 Coronavirus screen: Vaccine status: Patient reports receiving the 2nd dose of the covid vaccine. Ebola Screen: No symptoms or risks identified at this time. Initial Sepsis Screen: Does the patient meet any 2 criteria? HR > 90 bpm. No. Patient's initial sepsis screen is negative. Does the patient have a suspected source of infection? No. Patient's initial sepsis screen is negative. Risk Assessment: Do you want to hurt yourself or someone else? Patient reports no desire to harm self or others. Onset of symptoms is unknown. 14:03 Method Of Arrival: Ambulatory [facility] 14:03 Acuity: KARINA 3 sc1 Triage Assessment: 16:57 General: Behavior is calm, cooperative, appropriate for age. Pain: Pain began unknown. ap3 18:23 Headache History: The patient has had previous headaches. General: Appears in no ap3 apparent distress. comfortable. Pain: Pain currently is 4 out of 10 on a pain scale. Also complains of no other associated symptoms. Neuro: Level of Consciousness is awake, alert, obeys commands, Oriented to person, place, time, situation, Appropriate for age. Cardiovascular: Patient's skin is warm and dry. Respiratory: Airway is patent Respiratory effort is even, unlabored, Respiratory pattern is regular, symmetrical. 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 - Infectious Disease History:: Denies. - Social history:: Smoking status: Patient denies any tobacco usage or history of. Screenin:36 [facility] ED Fall Risk Assessment (Adult) History of falling in the last 3 months, ap3 including since admission No falls in past 3 months (0 pts) Confusion or Disorientation No (0 pts) Intoxicated or Sedated No (0 pts) Impaired Gait No (0 pts) Mobility Assist Device Used No (0 pt) Altered Elimination No (0 pt) Score/Fall Risk Level 0 - 2 = Low Risk Oriented to surroundings, Maintained a safe environment, Educated pt \T\ family on fall prevention, incl call for assistance when getting out of bed, Assessed \T\ reinforced patient's understanding of fall precautions, Hourly rounding (assess needs \T\ fall precautionary measures) done, Used ambulatory aids as needed (educated on \T\ assisted with). Abuse screen: Denies threats or abuse. Nutritional screening: No deficits noted. Tuberculosis screening: No symptoms or risk factors identified. Assessment: 15:35 General: Appears in no apparent distress. Pain: Complains of pain in head. Neuro: Level ap3 of Consciousness is awake, alert, obeys commands, Oriented to person, place, time, situation, Gait is steady, Speech is normal. Cardiovascular: Patient's skin is warm and dry. Respiratory: Airway is patent Respiratory effort is even, unlabored, Respiratory pattern is regular, symmetrical. Vital Signs: 14:03 BP 142 / 97; Pulse 93; Resp 17; Temp 98.1; Pulse Ox 99% ; Weight 98.43 kg; Height 5 ft. me1 0 in. ; Pain 8/10; 16:56 BP 128 / 86; Pulse 80; Resp 17; Pulse Ox 100% on R/A; ap3 18:03 BP 140 / 76; Pulse 80; Resp 18; Pulse Ox 99% on R/A; ap3 14:03 Body Mass Index 42.38 (98.43 kg, 152.4 cm) me1 14:03 Pain Scale: Adult me1 ED Course: 13:57 Patient arrived in ED. rg4 13:58 [facility] 13:58 Angella Guillen MD is Attending Physician. dr5 14:05 Triage completed. me1 14:05 Arm band placed on Patient placed in waiting room. me1 15:35 Initial lab(s) drawn, by me, sent to lab. Inserted saline lock: 22 gauge in right ap3 antecubital area, using aseptic technique. Blood collected. Flushed with 10 mL NS. 15:36 Patient has correct armband on for positive identification. Bed in low position. Call ap3 light in reach. Side rails up X 1. 15:38 Esther Zarate, RN is Primary Nurse. ap3 15:42 EKG done, by ED staff, reviewed by Bernardo NORMAN. em1 16:56 Provided Education on: fall risk education. Client placed on continuous cardiac and ap3 pulse oximetry monitoring. NIBP monitoring applied. school bus monitor on. Pulse ox on. NIBP on. 16:56 No provider procedures requiring assistance completed. ap3 18:24 IV discontinued, intact, bleeding controlled, No redness/swelling at site. Pressure ap3 dressing applied. Administered Medications: 15:45 Drug: NS 0.9% IV 1000 ml IV at 1000 ml once; to be given as a bolus over 60 minutes ap3 Route: IV; Rate: 1000 ml; Site: right antecubital; 18:23 Follow up: IV Status: Completed infusion; IV Intake: 1000ml ap3 15:46 Drug: NS 0.9% IV 1000 ml IV at 1000 ml once; to be given as a bolus over 60 minutes ap3 Route: IV; Rate: 1000 ml; Site: right antecubital; 17:42 Follow up: IV Status: Completed infusion; IV Intake: 1000ml ap3 17:41 Drug: Ketorolac IVP 15 mg IVP once Route: IVP; Site: right antecubital; ap3 18:23 Follow up: Response: No adverse reaction ap3 17:41 Drug: Insulin Regular Human Sub-Q 5 units Sub-Q once {Co-Signature: aa5 (nisa Post RN).} Route: Sub-Q; Site: right lower abdomen; 18:23 Follow up: Response: No adverse reaction; Blood sugar is lowered ap3 Medication: 16:56 VIS not applicable for this client. ap3 Intake: 17:42 IV: 1000ml; Total: 1000ml. ap3 18:23 IV: 1000ml; Total: 2000ml. ap3 Outcome: 18:06 Discharge ordered by . dr5 18:24 Discharged to home ambulatory, ap3 18:24 Condition: good 18:24 Discharge instructions given to patient, Instructed on discharge instructions, follow up and referral plans. medication usage, Demonstrated understanding of instructions, follow-up care, medications, Prescriptions given X 3, 18:24 Patient left the ED. ap3 Signatures: Arik Dooley em1 Pooja Villasenor rg4 Esther Zarate RN RN ap3 Mila Chinchilla RN RN me1 Bernardo Ramirez, DATABASE TESTER-C DATABASE TESTER-Cdr5 Kassy Post RN aa5
--- NOTE | 2024-11-02 18:07 | EDPHYS ---
Physician Documentation [facility] Name: Aminta Bell Age: 34 yrs Sex: Female : 1990 Arrival Date: 11/02/2024 Time: 13:54 Bed 5 Private MD: ED Physician Angella Guillen HPI: 11/02 18:34 This 34 yrs old Female presents to ER via Ambulatory with complaints of High dr5 Blood Pressure, High Blood Sugar, Vision Problem, Headache, Medication Refill. 18:34 Onset: The symptoms/episode began/occurred 2 day(s) ago. Patient is a 34-year-old dr5 female with history of anxiety, diabetes, hypertension coming in with increased blood sugar levels due to running of insulin 2 days ago. Patient reports she has been taking her metformin as prescribed but has run out of her Humalog as well as her Lantus. Patient reports that she not able to see her tool mechanic until December of this year. Patient reports intermittent visual changes, dizziness, headache.. 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 - Infectious Disease History:: Denies. - Social history:: Smoking status: Patient denies any tobacco usage or history of. ROS: 18:34 Constitutional: as per hpi dr5 Exam: 18:34 Constitutional: This is a well developed, well nourished patient who is awake, alert, dr5 and in no acute distress. Head/Face: Normocephalic, atraumatic. Eyes: Pupils equal round and reactive to light, extra-ocular motions intact. Lids and lashes normal. Conjunctiva and sclera are non-icteric and not injected. Cornea within normal limits. Periorbital areas with no swelling, redness, or edema. Neck: Trachea midline, no thyromegaly or masses palpated, and no cervical lymphadenopathy. Supple, full range of motion without nuchal rigidity, or vertebral point tenderness. No Meningismus. Chest/axilla: Normal chest wall appearance and motion. Nontender with no deformity. No lesions are appreciated. Cardiovascular: Regular rate and rhythm with a normal S1 and S2. Normal PMI, no JVD. No pulse deficits. Respiratory: Lungs have equal breath sounds bilaterally, clear to auscultation. No rales, rhonchi or wheezes noted. No increased work of breathing, no retractions or nasal flaring. Back: No spinal tenderness. No costovertebral tenderness. Full range of motion. Skin: Warm, dry with normal turgor. Normal color with no rashes, no lesions, and no evidence of cellulitis. MS/ Extremity: Pulses equal, no cyanosis. Neurovascular intact. Full, normal range of motion. Neuro: Awake and alert, GCS 15, oriented to person, place, time, and situation. Cranial nerves II-XII grossly intact. Motor strength 5/5 in all extremities. Sensory grossly intact. Cerebellar exam normal. Normal gait. Vital Signs: 14:03 BP 142 / 97; Pulse 93; Resp 17; Temp 98.1; Pulse Ox 99% ; Weight 98.43 kg; Height 5 ft. me1 0 in. ; Pain 8/10; 16:56 BP 128 / 86; Pulse 80; Resp 17; Pulse Ox 100% on R/A; ap3 18:03 BP 140 / 76; Pulse 80; Resp 18; Pulse Ox 99% on R/A; ap3 14:03 Body Mass Index 42.38 (98.43 kg, 152.4 cm) me1 14:03 Pain Scale: Adult me1 MDM: 13:58 Medical Screening Exam initiated dr5 18:42 Differential diagnosis: hypertensive crisis, DKA, HHNK, Hyperglycemia. Data dr5 interpreted: psychology fellow:. 18:42 Data interpreted: psychology fellow: rate is 93 beats/min, rhythm is normal sinus rhythm, dr5 regular, with no ectopy, Interpretation: normal rate, normal rhythm. Data reviewed: vital signs, nurses notes, lab test result(s), finger stick glucose, amylase and lipase, CBC, white blood cell count, hemoglobin, hematocrit, platelets, electrolytes, sodium, potassium, chloride, serum bicarbonate, BUN, creatinine, serum glucose, urinalysis, EKG. Consideration of Admission/Observation Escalation of care including admission/observation considered. Admission considered patient found to be in DKA. I considered the following discharge prescriptions or medication management in the emergency department I discussed and recommended Over The Counter medications, Medications were administered in the Emergency Department. See MAR. Independent interpretation of the following test(s) in the Emergency Department psychology fellow: Rhythm is normal sinus rhythm, regular, with no ectopy, Interpretation: normal rate, normal rhythm. Care significantly affected by the following chronic conditions: Diabetes, Hypertension. Care significantly affected by the following Social Determinants of Health: Poor access to healthcare and/or lack of insurance, Poor access to transportation, Problems related to employment. Counseling: I had a detailed discussion with the patient and/or guardian regarding the historical points, exam findings, and any diagnostic results supporting the discharge/admit diagnosis, the presence of at least one elevated blood pressure reading (>120/80) during this emergency department visit, lab results, the need for outpatient follow up, for definitive care, a family practitioner, to return to the emergency department if symptoms worsen or persist or if there are any questions or concerns that arise at home. Medication response: Insulin. Response to treatment: the patient's symptoms have markedly improved after treatment. Special discussion: I have referred the patient to see his PCP for further evaluation of high blood pressure. I discussed with the patient/guardian in detail that at this point there is no indication for admission to the hospital. It is understood, however, that if the symptoms persist or worsen the patient needs to return immediately for re-evaluation. Based on the history and exam findings, there is no indication for further emergent testing or inpatient evaluation. I discussed with the patient/guardian the need to see the primary care provider for further evaluation of the symptoms. 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 ED course: Patient not in DKA. Will represcribe patient's insulin to get her to see her tool mechanic in December. Recommended patient call tool mechanic to see about getting appointment earlier. Patient reports her headache and symptoms have resolved and feeling much better. All question answered. Strict ER precautions given. 11/02 14:14 Order name: BETA HYDROXYBUTYRATE; Complete Time: 16:10 11/02 14:14 Order name: CBC with Diff; Complete Time: 15:58 11/02 14:14 Order name: Lipase; Complete Time: 16:10 11/02 14:14 Order name: Magnesium; Complete Time: 16:10 11/02 14:14 Order name: Phosphorus; Complete Time: 16:10 11/02 14:14 Order name: VBG; Complete Time: 15:56 11/02 14:14 Order name: CMP; Complete Time: 16:10 dr5 11/02 14:14 Order name: Glucose, Ancillary Testing; Complete Time: 14:14 EDMS 11/02 15:31 Order name: UA Rfx Velasquez Cult if indicated; Complete Time: 16:10 dr5 11/02 15:31 Order name: Test, Urine; Complete Time: 16:10 dr5 11/02 17:36 Order name: Glucose, Ancillary Testing; Complete Time: 17:39 EDMS 11/02 14:14 Order name: Cardiac monitoring; Complete Time: 15:45 dr5 11/02 14:14 Order name: EKG - Nurse/Tech; Complete Time: 15:42 dr5 11/02 14:14 Order name: IV Saline Lock; Complete Time: 15:35 dr5 11/02 14:14 Order name: NPO; Complete Time: 15:37 dr5 11/02 14:14 Order name: O2 Per Protocol; Complete Time: 15:45 dr5 11/02 14:14 Order name: O2 Sat Monitoring; Complete Time: 15:45 dr5 EC:39 Rate is 87 beats/min. Rhythm is regular. QRS [place] is Normal. WA interval is normal at dr5 132 msec. QRS interval is normal at 88 msec. QT interval is normal at 398 msec. Clinical impression: Normal ECG and No evidence of ischemia. Administered Medications: 15:45 Drug: NS 0.9% IV 1000 ml IV at 1000 ml once; to be given as a bolus over 60 minutes ap3 Route: IV; Rate: 1000 ml; Site: right antecubital; 18:23 Follow up: IV Status: Completed infusion; IV Intake: 1000ml ap3 15:46 Drug: NS 0.9% IV 1000 ml IV at 1000 ml once; to be given as a bolus over 60 minutes ap3 Route: IV; Rate: 1000 ml; Site: right antecubital; 17:42 Follow up: IV Status: Completed infusion; IV Intake: 1000ml ap3 17:41 Drug: Ketorolac IVP 15 mg IVP once Route: IVP; Site: right antecubital; ap3 18:23 Follow up: Response: No adverse reaction ap3 17:41 Drug: Insulin Regular Human Sub-Q 5 units Sub-Q once {Co-Signature: aa5 (nisa Post RN).} Route: Sub-Q; Site: right lower abdomen; 18:23 Follow up: Response: No adverse reaction; Blood sugar is lowered ap3 Disposition Summary: 11/02/24 18:06 Discharge Ordered Notes: Location: Home dr5 Condition: Stable dr5 Diagnosis - Hyperglycemia, unspecified dr5 Followup: dr5 - With: Emergency Department - When: As needed - Reason: Worsening of condition Followup: dr5 - With: Private Physician - When: 1 - 2 days - Reason: Recheck today's complaints, Continuance of care, Re-evaluation by your physician Discharge Instructions: - Discharge Summary Sheet dr5 - Hyperglycemia dr5 Forms: - Medication Reconciliation Form dr5 - Patient Portal Instructions dr5 - Leadership Thank You Letter dr5 Prescriptions: - Humalog KwikPen Insulin 100 unit/mL Subcutaneous Insulin Pen - inject 40 unit SUBCUTANEOUS route before meals for 30 days; 10 milliliter; dr5 Refills: 0, Product Selection Permitted - Lantus U-100 Insulin 100 unit/mL Subcutaneous solution - inject 10 unit SUBCUTANEOUS route 2 times per day; 15 milliliter; Refills: 0, dr5 Product Selection Permitted - Diabetes Health Pack - administer 1 application SUBCUTANEOUS route as directed Please give pack of dr5 injection syringes and needles for Humalog and Lantus.; 20 application; Refills: 0, Product Selection Permitted Signatures: Dispatcher [employer] Esther Rick RN RN ap3 Mila Chinchilla RN RN me1 Bernardo Ramirez, OPERATIONS DEVELOPER-C OPERATIONS DEVELOPER-Cdr5 Kassy Post RN aa5 Corrections: (The following items were deleted from the chart) 14:15 14:15 BETA HYDROXYBUTYRATE+C.LAB.BRZ ordered. EDMS EDMS 14:15 14:15 CBC+H.LAB.BRZ ordered. EDMS EDMS 14:15 14:15 LIPASE+C.LAB.BRZ ordered. EDMS EDMS 14:15 14:15 MAGNESIUM+C.LAB.BRZ ordered. EDMS EDMS 14:15 14:15 PHOSPHORUS+C.LAB.BRZ ordered. EDMS EDMS 14:15 14:15 COMPREHENSIVE METABOLIC PANEL+C.LAB.BRZ ordered. EDMS EDMS 14:15 14:15 Venous Blood Gas+RC.LAB.BRZ ordered. EDMS EDMS
[2024-11-02 19:16] VITALS: TEMP 98.1
[2024-11-02 19:18] VITALS: BP 140/76; O2SAT 99
== END 2024-11-02 18:24 | disposition home or self-care (01) ==
LOC: ER 13:54
DX: E11.65 Type 2 diabetes mellitus with hyperglycemia (principal)
CPT/HCPCS: 96361; 85025; 36415; 83735; 81025; 84100; 82947 ×3; 81003; 83690; 80053; 82010; 96372; 96374; 99285; 82803; J1815; J7030; 93005